=== PATIENT | female | born 1945 | race Caucasian/White ===

== ENCOUNTER 2022-06-25 08:59 | Outpatient (RCR) | payer MEDICARE, SELFPAY ==
--- NOTE | 2022-06-25 10:08 | OT.OPLDN ---
OT Outpatient Lymphedema Daily Note OT Outpatient Lymphedema Daily Note Start: 06/25/22 09:03 Freq: Status: Active Protocol: Document 06/25/22 09:47 AMB (Rec: 06/25/22 10:08 AMB [email or web address]) E-signed By Miranda Jasso, OTR/L, CLT, JUNIOR ACCOUNTANT OT OP Lymphedema Daily/Progress Note Note Type Note Type Discharge Note,Recert/Progress Note Visit Number 6 Insurance Information Insurance Information Medicare B Current Condition/Medical Diagnosis Referring Provider Eulogio Treatment Diagnosis Lymphedema / breast Cancer Date Of Onset June 2021 Other Precautions Pt is a very pleasant 75yo female here today to initiate the breast cancer lymphedema program. Pt will undergo lumpectomy with SLN biopsy on June 04. 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 There was no evidence of metastasis to her LN. She underwent neoadjuvant chemotherapy and finished this up on 05/04/21. Pt state she will likely need radiation therapy follwing her surgery. Pt states she is feeling pretty good. 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 PMH also includes essential hypertension, nephrolithiasis, tonsillectomy , bilateral cataract extraction, bowel resection, benign breast biopsy on the left, TKA last May, needs TKA in her other knee but waiting until cancer treatment is over . Medical Contraindications Metal Implants Recert Due Recert Due 06/25/22 Subjective Subjective Pt feels she is doing well, knee is not bothering her anymore and her scar tissue in her breast has calmed down, still palpable with occasional mild shooting pains, but gets better with massage. Pt does not notice any swelling in her breast or her arm / torso. Hematoma is also still palpable but pt feels it is getting better as well. Home Program Compliant To Home Program Yes Home Program Specifics Self monitoring, self scar mobilization Treatment Manual Therapy Minutes (minutes) 20 Self Care Reviewed self serveillance and healthy habbits / risk reduction practices including skin care, exercise, and healthy diet. Pt asked multiple pertinent questions and received satisfactory answers. Assessment Pt present to OT for her final visit in her lymphedema surveillance program following breast cancer surgery with LN removal and radiation. Pt verbalizes understanding of the importance of self monitoring and risk reduction practices going forward. Pt agrees that if she has future concerns regarding lymphedema or infection, she will reach out to her PCP and seek help. Pt has met all goals and feels ready to discharge. Measurements of BUE were taken today as follows: JERRI BUSTAMANTE Met heads 21.0cm 21.0cm Palm 21.2 21.2 Wrist 17.0 17.0 10cm 20.0 19.8 20cm 25.7 26.0 30cm 28.3 27.5 40cm 32.3 33.5 50cm 37.5 38.0 Patient Goals Patient Goals GOALS/Functional Outcomes 1. Pt will demonstrate a general understanding of the lymphatic system, s/s of lymphedema, treatment of lymphedema, implications of untreated lymphedema, s/s of infection and the correlation of infection related to lymphedema. 3 months Goal is met 2. Pt will be compliant with quarterly assessments for lymphedema surveillance in order to obtain early intervention with best outcomes if needed. 12 months Goal remains appropriate Goal is met Treatment Plan Treatment Plan Edema Control,Manual Therapy, Therapeutic Exercise, Therapeutic Activities,Self- Care/Home Management,Education Expected Frequency Comments Discontinue OT, transition to independent monitoring / management Daily Plan of Care Discharge Occupational Therapy Billing Units Billing Units Therapeutic Activities 1 Certification Certification I Certify That: Therapy Services Provided, Therapy Plan Established, Therapy Plan Reviewed Recertification Information Recertification Information Initial Certification Date 11/27/20 Recertification Start Date 06/25/22 Recertification Due Date 06/25/22 Reasons to Continue Skilled Therapy Pt was participating in a lymphedema surveillance program and has benefited from continued surveillance to provide early intervention and treatment in the event that she developed lymphedema in order to achieve best outcomes as well as continued pt education on risk reduction practices. Today was pt's last visit. She will transition to independent surveillance. Through OT, she has obtained the knowledge and skills to be abl to continue on her own. Pt has contact info and was encouraged to call mortgage underwriter should she have future questions or concerns. Rehabilitation Potential Good Continued Plan of Care and Interventions Discontinue formal clinic OT, pt is transitioning to independent monitoring program . Provider Signature Shows Agreement With POC & Medical Necessity Physician Comment/Change Comment or Changes Physician NPI Number # Discharge Note Discharge Note Discharge Summary Pt has met goal and states confidence in continuing with self monitoring. Date of First Visit for Therapy 05/27/21 Date of Last Visit for Therapy 06/25/22 Initial Primary Functional Limitations/ Lymphedema Risk, scar tissue Concerns limitations Initial Pain Level NA Pain Level at Discharge NA Interventions Provided During Treatment Manual Therapy,Therapeutic Activities,Therapeutic Exercise,Self Care/Home Management,Other; See Comments Interventions Provided During Treatment Patient education. Comments Recommendations/Reason for Discharge Met All Therapy Goals Discharge Instructions Pt will continue to monitor for s/s of lymphedema, she will continue with scar tissue mobilization prn and risk reduction practices.
== END 2023-05-25 11:07 | disposition home or self-care (01) ==
PROVIDERS: PCP Internal Medicine; Visit Provider Surgery
DX: I89.0 Lymphedema, not elsewhere classified (principal); Z51.89 Encounter for other specified aftercare
CPT/HCPCS: 97530

== ENCOUNTER 2022-08-18 10:29 | Outpatient (CLI) | payer MEDICARE, SELFPAY ==
--- OUTSIDE RECORDS SUMMARY | 2022-08-18 09:28 | XMS_ITS | Encounter Summary ---
:1945 Author Organization [facility] Address [address] [place] [id number] Care Team Providers Name Role Phone Liudmila David MD Primary Care Provider Unavailable Liudmila David MD Unavailable Unavailable Reason for Visit Reason Comments Pre-Op Exam DOS Encounter Details Date Type Department Care Team Description 10/18/2018 Office Visit [facility] Liudmila David Preope rative examination (Primary Dx); Prateek Gatica MD Essential hypertension, mark gn; [address] History of malignant carcino id tumor; [address] History [place] [address] Social History Tobacco Use Types Packs/Day Years Used Date Smoking Tobacco: Former Cigarettes 0.5 15 Quit : 11/07/1995 Smokeless Tobacco: Never Alcohol Use Standard Drinks/Week Comments Yes 0 (1 standard drink = 0.6 oz pure alcoho l) rare - wine once in a while Sex Assigned at Date Recorded Female 10/17/2018 7:14 PM MAGNETIZER documented as of this encounter Last Filed Vital Signs Vital Sign Reading Time Taken Comments Blood Pressure 126/82 10/18/2018 12:42 PM MAGNETIZER Pulse 84 10/18/2018 12:42 PM MAGNETIZER Temperature 36.8 ??C (98.2 ??F) 10/18/2018 12:42 PM MAGNETIZER Respiratory Rate - - Oxygen Saturation 98% 10/18/2018 12:42 PM MAGNETIZER Inhaled Oxygen Concentration - - Weight 98.4 kg (217 lb) 10/18/2018 12:42 PM MAGNETIZER Height 168.9 cm (5' 6.5) 10/18/2018 12:42 PM MAGNETIZER Body Mass Index 34.5 10/18/2018 12:42 PM MAGNETIZER documented in this encounter Progress Notes Liudmila David MD - 10/18/2018 12:00 PM CST [facility] [address] [place] [address]. [address] [facility] [address] Dept: [phone] PRE-OP EVALUATION: Today's date: 10/18/2018 Shahnaz Phelps (: 1945) presents for pre-operative evaluation assessment as requestedby Dr. Hidalgo. She requires evaluation and anesthesia risk assessment prior to undergoing surgery/procedure for colonoscopy- surveillance of resected carcinoid tumor Proposed Surgery/ Procedure: Colonoscopy Date of Surgery/ Procedure: 10/25/18 Time of Surgery/ Procedure: 8:00 am Hospital/Surgical Facility: [facility] Can see in [facility] Primary Physician: Liudmila David Type of Anesthesia Anticipated: General Patient has a Health Care Directive or Living Will: NO 1. NO - Do you have a history of heart attack, stroke, stent, bypass or surgery on an artery in the head, neck, heart or legs? 2. NO - Do you ever have any pain or discomfort in your chest? 3. NO - Do you have a history of Heart Failure? 4. NO - Are you troubled by shortness of breath when: walking on the level, up a slight hill or at night? 5. NO - Do you currently have a cold, bronchitis or other respiratory infection? 6. NO - Do you have a cough, shortness of breath or wheezing? 7. NO - Do you sometimes get pains in the calves of your legs when you walk? 8. NO - Do you or anyone in your family have previous history of blood clots? 9. NO - Do you or does anyone in your family have a serious bleeding problem such as prolonged bleeding following surgeries or cuts? 10. NO - Have you ever had problems with anemia or been told to take iron pills? 11. NO - Have you had any abnormal blood loss such as black, tarry or bloody stools, or abnormal vaginal bleeding? 12. NO - Have you ever had a blood transfusion? 13. YES - HAVE YOU OR ANY OF YOUR RELATIVES EVER HAD PROBLEMS WITH ANESTHESIA? Personal history of nausea and vomiting after anesthesia 14. NO - Do you have sleep apnea, excessive snoring or daytime drowsiness? 15. NO - Do you have any prosthetic heart valves? 16. NO - Do you have prosthetic joints? 17. NO - Is there any chance that you may be ? HPI: HPI related to upcoming procedure: Colonoscopy under general anesthesia MEDICAL HISTORY: Patient Active Problem List Diagnosis Date Noted ??? Venous stasis dermatitis of both lower extremities 05/19/2017 Priority: Medium ??? Abnormal glucose 02/11/2017 Priority: Medium ??? History of malignant carcinoid tumor 04/17/2015 Priority: Medium ??? Health Longterm 2012 Priority: Medium State Tier Level: Tier 2 Status: n/a [place] Measurer: See Letters for [facility] Care Plan ??? Calculus of kidney 03/28/2012 Priority: Medium ??? ACP (advance care planning) 02/26/2012 Priority: Medium Advance Care Planning 02/18/2016: ACP Review of Chart / Resources Provided: Reviewed chart for advance care plan. Shahnaz Phelps has no plan or code status on file. Discussed available resources and provided with information. Confirmed code status reflects current choices pending further ACP discussions. Confirmed/documented legally designated decision makers. Added by July Keenan Diagnosis updated by automated process. Provider to review and confirm. ??? Essential hypertension, benign 02/25/2009 Priority: Medium ??? Obesity 12/11/2007 Priority: Medium Problem list name updated by automated process. Provider to review ??? 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 Please review for accuracy ??? Osteoarthritis 07/14/2004 Priority: Medium Problem list name updated by automated process. Provider to review ??? Diverticulosis of large intestine Priority: Medium Problem list name updated by automated process. Provider to review ??? History of colonic polyps Priority: Medium Problem list name updated by automated process. Provider to review Past Medical History: Diagnosis Date ??? Allergic rhinitis due to pollen ??? 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 Hypertension ??? Kidney stones ??? 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 Need for prophylactic hormone replacement therapy (postmenopausal) ??? Other acne ??? Other acne ??? PONV (postoperative nausea and vomiting) vomitted for 12 hours after surgery Past Surgical History: Procedure Laterality Date ??? 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 BREAST BIOPSY, RT/LT Left 04/2005 left breast (calcium buildup) ??? CATARACT IOL, RT/LT Bilateral 2003 ??? COLONOSCOPY 06/2012 scheduled ??? COLONOSCOPY N/A 10/20/2015 3 year recheck ??? 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 EXTRACORPOREAL SHOCK WAVE LITHOTRIPSY, CYSTOSCOPY, INSERT STENT URETER(S), COMBINED 06/08/2012 Procedure: COMBINED EXTRACORPOREAL SHOCK WAVE LITHOTRIPSY, CYSTOSCOPY, INSERT STENT URETER(S); RIGHT COMBINED EXTRACORPOREAL SHOCK WAVE LITHOTRIPSY, CYSTOSCOPY, RIGHT STENT, LEFT RETROGRADE.; Surgeon:Jared Jackson MD; Location: OR ??? HC COLONOSCOPY THRU STOMA W BIOPSY/CAUTERY TUMOR/POLYP/LESION Dr Wells ??? HC COLONOSCOPY THRU STOMA W BIOPSY/CAUTERY TUMOR/POLYP/LESION ??? HC COLONOSCOPY THRU STOMA W BIOPSY/CAUTERY TUMOR/POLYP/LESION 2000 ??? HC COLONOSCOPY THRU STOMA W BIOPSY/CAUTERY TUMOR/POLYP/LESION 2002 Dr Mesa ? ? HC HYSTEROSCOPY W ENDOMETRIAL BX/POLYPECTOMY W/WO D&C 2006 benign uterine polyp ??? HC KNEE SCOPE,MED/LAT MENISECTOMY 04/[address] Arevalo ? ? HC REMOVAL OF TONSILS,<12 Y/O 1953 Tonsils <12y.o. ??? HC REMV CATARACT EXTRACAP,INSERT LENS 03/10/04 right ??? HC REMV CATARACT EXTRACAP,INSERT LENS 04/[address] Keith ??? HERNIORRHAPHY INCISIONAL (LOCATION) N/A 05/02/2015 Procedure: HERNIORRHAPHY INCISIONAL (LOCATION); Surgeon: Cheikh Barcenas MD; Location: OR ??? 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 LAPAROSCOPIC ASSISTED COLECTOMY Right 07/31/2014 Procedure: LAPAROSCOPIC ASSISTED COLECTOMY; Surgeon: Jerry Lane MD; Location: [facility] OR ? ? LIGATN/STRIP LONG & SHORT SAPHEN 03/2006 right leg ??? PLACEMENT OF DENTAL IMPLANT(S) 06/23/2015 clear choice ??? US ENDOVENOUS ABLATION THERAPY INCOMPETENT 1 VEIN LEFT Bilateral 2011 Current Outpatient Medications Medication Sig Dispense Refill ??? hydrochlorothiazide (HYDRODIURIL) 25 MG tablet Take 1 tablet (25 mg) by mouth daily 90 tablet 3 ??? losartan (COZAAR) 100 MG tablet Take 1 tablet (100 mg) by mouth daily 90 tablet 3 ??? Multiple Vitamins-Minerals (MULTIVITAMIN OR) Take 1 tablet by mouth daily ??? triamcinolone (KENALOG) 0.1 % cream Apply topically 2 times daily (Patient not taking: Reported on 10/18/2018) 30 g 0 OTC products: None, except as noted above Allergies Allergen Reactions ??? Amoxicillin Itching rash ??? Imidazole Antifungals hives ??? Penicillins hives Latex Allergy: NO Social History Tobacco Use ??? Smoking status: Former Smoker Packs/day: 0.50 Years: 15.00 Pack years: 7.50 Last attempt to quit: 11/07/1995 Years since quittin.9 ??? Smokeless tobacco: Never Used Substance Use Topics ??? Alcohol use: Yes Alcohol/week: 0.0 oz Comment: rare - wine once in a while History Drug Use No REVIEW OF SYSTEMS: CONSTITUTIONAL: NEGATIVE for fever, chills, change in weight ENT/MOUTH: NEGATIVE for ear, mouth and throat problems RESP: NEGATIVE for significant cough or SOB CV: NEGATIVE for chest pain, palpitations or peripheral edema GI: NEGATIVE for nausea, abdominal pain, heartburn, or change in bowel habits MUSCULOSKELETAL: bilateral knee pain, cortisone injections ENDOCRINE: NEGATIVE for temperature intolerance, skin/hair changes PSYCHIATRIC: NEGATIVE for changes in mood or affect EXAM: BP 126/82 (BP Location: Right arm, Patient Position: Sitting, Cuff Size: Adult Regular) Pulse 84 Temp 98.2 ??F (36.8 ??C) (Oral) Ht 1.689 m (5' 6.5) Wt 98.4 kg (217 lb) SpO2 98% BMI 34.50 kg/m?? GENERAL APPEARANCE: healthy, alert and no distress HENT: ear canals and TM's normal and nose and mouth without ulcers or lesions RESP: lungs clear to auscultation - no rales, rhonchi or wheezes CV: regular rate and rhythm, normal S1 S2, no S3 or S4 and no murmur, click or rub ABDOMEN: soft, nontender, no HSM or masses and bowel sounds normal NEURO: Normal strength and tone, sensory exam grossly normal, mentation intact and speech normal DIAGNOSTICS: EKG: Normal Sinus Rhythm Hemoglobin Date Value Ref Range Status 10/18/2018 14.5 11.7 - 15.7 g/dL Final ] Potassium Date Value Ref Range Status 10/18/2018 3.6 3.5 - 5.3 mmol/L Final Lab Results Component Value Date CR 0.88 10/18/2018 Recent Labs Lab Test 02/13/18 0959 02/13/18 0935 02/13/18 0931 06/08/17 1028 02/10/17 0942 02/10/17 0918 06/23/16 HGB -- -- 14.0 -- -- 14.1 -- -- 13.4 PLT -- -- 239 -- -- -- -- -- 264 NA 141 -- -- 142 < > -- -- < > -- POTASSIUM 3.9 -- -- 4.0 < > -- -- < > -- CR 0.73 -- -- 0.75 < > -- -- < > -- A1C -- 5.7 -- -- -- -- 5.5 -- -- < > = values in this interval not displayed. IMPRESSION: Reason for surgery/procedure: colonoscopy- under anesthesia The proposed surgical procedure is considered LOW risk. REVISED CARDIAC RISK INDEX The patient has the following serious cardiovascular risks for perioperative complications such as (UT, PE, VFib and 3?? AV Block): No serious cardiac risks INTERPRETATION: 0 risks: Class I (very low risk - 0.4% complication rate) The patient has the following additional risks for perioperative complications: No identified additional risks (Z01.818) Preoperative examination (primary encounter diagnosis) Comment: Plan: BASIC METABOLIC PANEL ([facility]), HEMOGRAM/PLATELET ([facility]), EKG 12-lead complete w/read - Clinics, VENOUS COLLECTION (I10) Essential hypertension, benign Comment: Plan: BASIC METABOLIC PANEL ([facility]), EKG 12-lead complete w/read - Clinics, VENOUS COLLECTION (Z85.9) History of malignant carcinoid tumor Comment: Plan: (Z86.010) History of colonic polyps Comment: Plan: RECOMMENDATIONS: --Patient is to take all scheduled medications on the day of surgery EXCEPT for modifications listedbelow. FLO Inhibitor or Angiotensin Receptor Cisco (ARB) Use Flo inhibitor or Angiotensin Receptor Cisco (ARB) and hydrochlorothiazide should HOLD this medication for the 24 hours prior to surgery. APPROVAL GIVEN to proceed with proposed procedure, without further diagnostic evaluation Signed Electronically by: Liudmila David MD Copy of this evaluation report is provided to requesting physician. [facility] Preop Guidelines Revised Cardiac Risk Index ETIZER documented in this encounter Nursing Notes Radha Abdul CMA - 10/18/2018 12:00 PM CST Patient is here for preop today. ETIZER documented in this encounter Plan of Treatment Not on filedocumented as of this encounter Procedures Procedure Name Priority Date/Time Associated Diagnosis Comme nts BASIC METABOLIC Routine 10/18/2018 1:41 PM Preoperative Result s for this PANEL MAGNETIZER examination procedure are in Essential the results hypertension, benign section . ZZCL AFF Routine 10/18/2018 1:25 PM Preoperative Results f or this HEMOGRAM/PLATELET MAGNETIZER examination procedure are in the results section. EKG 12-LEAD Routine 10/18/2018 1:23 PM Preoperative Results f or this COMPLETE W/READ - MAGNETIZER examination procedure are in CLINICS Essential the results hypertension, benign section . HC VENOUS Routine 10/18/2018 1:15 PM Preoperative COLLECTION MAGNETIZER examination Essential hypertension, benign documented in this encounter Results (ABNORMAL) BASIC METABOLIC PANEL ([facility]) (10/18/2018 1:41 PM MAGNETIZER) P athologist Signature Glucose 102 (H) 65 - 99 [facility] mg[facility] Comment: ? Fasting reference interv al For someone without known diabetes, a gl ucose value between 100 and 125 mg/dL is consistent with prediabetes and should be confirmed with a follow-up test. Urea Nitrogen 20 7 - 25 mg/dL [facility] Creatinine 0.88 0.60 - 0.93 mg/dL [facility] Comment: For patients >49 years of age, the refer ence limit for Creatinine is approximately 13% high er for people identified as -South African. GFR Estimate 65 > OR = 60 [facility] mL/min/1.73m2 EGFR 76 > OR = 60 [facility] South African mL/min/1.73m2 BUN/Creatinine NOT APPLICABLE 6 - 22 (calc) [facility] Ratio Sodium 142 135 - 146 mmol/L [facility] Potassium 3.6 3.5 - 5.3 mmol/L [facility] Chloride 103 98 - 110 mmol/L [facility] Carbon Dioxide 28 20 - 32 mmol/L [facility] Calcium 10.0 8.6 - 10.4 mg/dL [facility] Specimen Anatomical Collection Method Collection Time Receive d Time (Source) Location / / Volume Laterality Blood specimen 10/18/2018 1:41 PM 018 3:58 (specimen) MAGNETIZER AM MAGNETIZER Resulting Agency Comment Performing Organization Information: ? CB ? [facility] ? [address] [place], [place] [address] ? Juanito Hardy M.D. Liudmila David MD LAB - BLOOD ORDERABLES Performing Organization Address City/State/ZIP Code Phon e Number [facility] [address] [place], [place] [address] [facility] [address] [place], [place] [address] HEMOGRAM/PLATELET ([facility]) (10/18/2018 1:25 PM MAGNETIZER) P athologist Signature WBC 8.0 4.0 - 11 [facility] 10*9/L RBC Count 4.59 3.8 - 5.2 [facility] 10*12/L Hemoglobin 14.5 11.7 - 15.7 [facility] g/dL Hematocrit 43.2 35.0 - 47.0 [facility] % MCV 94.1 78 - 100 fL [facility] MCH 31.6 26 - 33 pg [facility] MCHC 33.6 31 - 36 [facility] g/dL RDW 12.7 % [facility] Platelet Count 257 150 - 375 [facility] 10^9/L Specimen (Source) Anatomical Collection Method Collection Time Re ceived Time Location / / Volume Laterality 10/18/2018 1:25 PM MAGNETIZER Liudmila David MD LABORATORY Performing Organization Address City/State/ZIP Code Phon e Number [facility] EKG 12-lead complete w/read - Clinics (10/18/2018 1:23 PM MAGNETIZER) Specimen (Source) Anatomical Collection Method Collection Time Re ceived Time Location / / Volume Laterality 10/18/2018 1:23 PM MAGNETIZER Narrative This result has an attachment that is no t available. Liudmila David MD ECG ORDERABLES Performing Organization Address City/[facility]/ZIP Code Phon e Number [facility] documented in this encounter Visit Diagnoses Diagnosis Preoperative examination - Primary Preoperative examination, unspecified Essential hypertension, benign History of malignant carcinoid tumor Personal history of malignant neuroendoc rine tumor History of colonic polyps Personal history of colonic polyps documented in this encounter Care Teams Simulation Tech Relationship Specialty Start Date End Date Liudmila David MD PCP - General Family Practice 02/12/14 1 12/06/19 Liudmila David MD Assigned PCP 10/12/15 documented as of this encounter
--- OUTSIDE RECORDS SUMMARY | 2022-08-18 09:28 | XMS_ITS | Clinical Summary ---
:1945 Author Organization [facility] Address [address] [place] [address] Care Team Providers Name Role Phone BonitaPrincessHeidy Primary Care Provider Allergies Active Allergy Reactions Severity Noted Date Comments Amoxicillin 03/01/2016 Itching rash Imidazole Antifungals 03/21/1999 hives Penicillins 12/18/2001 hives Medications Medication Sig Dispensed Refills Start Date End Date Status Multiple Take 1 tablet 0 Active Vitamins-Minerals by mouth daily (MULTIVITAMIN OR) triamcinolone (KENALOG) Apply topically 30 g 0 02/13/2018 Active 0.1 % creamIndications: 2 times daily Dermatitis hydrochlorothiazide Take 1 tablet 90 tablet 3 02/07/2019 Active (HYDRODIURIL) 25 MG (25 mg) by tabletIndications: mouth daily Essential hypertension, benign losartan (COZAAR) 100 MG Take 1 tablet 90 tablet 3 02/07/2019 Active tabletIndications: (100 mg) by Essential hypertension, mouth daily benign Active Problems Problem Noted Date Venous stasis dermatitis of both lower extremities Abnormal glucose 02/11/2017 History of malignant carcinoid tumor 04/17/2015 Health Long-Term 2012 Overview: State Tier Level: Tier 2 Status: n/a Manager Surgical: See Letters for [facility] Care Plan Calculus of kidney 03/28/2012 ACP (advance care planning) 02/26/2012 Overview: Advance Care Planning 02/18/2016: ACP Rev iew of Chart / Resources Provided: Reviewed chart for advance care plan. Shahnaz Phelps has no plan or code status on file. Discussed available resources an d provided with information. Confirmed c ode status reflects current choices pending further ACP discussions. Confirmed/documented legally designated decision makers. Added by July Keenan Diagnosis updated by automated process. Provider to review and confirm. Essential hypertension, benign 02/25/2009 Obesity 12/11/2007 Overview: Problem list name updated by automated p rocess. 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 Please r damian for accuracy Osteoarthritis 07/14/2004 Overview: Problem list name updated by automated p rocess. Provider to review History of colonic polyps Overview: Problem list name updated by automated p rocess. Provider to review Diverticulosis of large intestine Overview: Problem list name updated by automated p rocess. Provider to review Resolved Problems Problem Noted Date Resolved Date Malignant neoplasm of ascending colon 12/27/2018 Carcinoid tumor 07/31/2014 04/17/2015 iamSCIATICA 06/06/2006 12/11/2007 Absence of menstruation 04/08/2003 12/11/2007 Trigger finger, acquired 04/08/2003 12/11/2007 Overview: Problem list name updated by automated p rocess. Provider to review Other acne 06/23/2016 Immunizations Name Administration Dates Next Due Influenza (High Dose) 3 valent vaccine 06/28/2017 Influenza (IIV3) PF 08/27/1998 Influenza Vaccine IM > 6 months Valent IIV4 09/27/2018 (Alfuria,Fluzone) Pneumo Conj 13-V (2010&after) 02/27/2015 Pneumococcal 23 valent 02/26/2012 TD (ADULT, 7+) 03/13/2001, 12/08/1990 TDAP Vaccine (Boostrix) 03/29/2011 Zoster vaccine recombinant adjuvanted (SHINGRIX) 07/19/2019, 02/12/2019 Family History Medical History Relation Comments Colon Cancer Brother 2 Cancer Brother 3 colon Cancer - colorectal Father Colon Cancer Father Cancer Mother endometrial Cancer - colorectal Mother Colon Cancer Mother Breast Cancer Paternal Grandmother Relation Status Comments Brother 1 Alive Brother 2 (Age 50) colon cancer Brother 3 Daughter Alive Father colon cancer Mother colon cancer Paternal Grandmother Social History Tobacco Use Types Packs/Day Years Used Date Smoking Tobacco: Former Cigarettes 0.5 15 Quit : 11/07/1995 Smokeless Tobacco: Never Tobacco Cessation: Counseling Given: Yes Alcohol Use Standard Drinks/Week Comments Yes 0 (1 standard drink = 0.6 oz pure alcoho l) rarely Sex Assigned at Date Recorded Female 10/17/2018 7:14 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 Last 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 Vital Signs Vital Sign Reading Time Taken Comments Blood Pressure 118/74 06/09/2019 10:18 AM CDT Pulse 74 06/09/2019 10:18 AM CDT Temperature 36.6 ??C (97.9 ??F) 06/09/2019 10:18 AM CDT Respiratory Rate 20 06/04/2019 6:20 PM CDT Oxygen Saturation 97% 06/09/2019 10:18 AM CDT Inhaled Oxygen Concentration - - Weight 96.9 kg (213 lb 9.6 oz) 06/09/2019 10:18 AM CDT Height 167.6 cm (5' 6) 06/09/2019 10:18 AM CDT Body Mass Index 34.48 06/09/2019 10:18 AM CDT Plan of Treatment Health Maintenance Due Date Last Done Comments ANNUAL REVIEW OF HM ORDERS 1945 CT COLONOGRAPHY 1945 FIT-DNA (Cologuard) 1945 FIT 1945 FLEX SIG 1945 HEPATITIS B IMMUNIZATION (1 1945 of 3 - 3-dose series) COVID-19 Vaccine (#1) 03[birth year]06/1946 LUNG CANCER SCREENING 1995 MAMMO SCREENING 01/25/2020 01/24/2019, 01/23/2018, 01/31/2017, Additional history exists FALL RISK ASSESSMENT 02/08/2020 02/07/2019, 04/06/2018, 05/27/2016, Additional history exists MEDICARE ANNUAL WELLNESS 02/08/2020 02/07/2019, 02/13/2018, VISIT 02/10/2017, Additional history exists ADVANCE CARE PLANNING 02/17/2021 02/18/2016, 03/18/2014, 02/26/2012 DTAP/TDAP/TD IMMUNIZATION 03/29/2021 03/29/2011, 03/13/2001 , (4 - Td or Tdap) 12/08/1990 COLONOSCOPY 10/25/2021 10/25/2018, 10/25/2018, 10/20/2015, Additional history exists COLORECTAL CANCER SCREENING 10/25/2021 PHQ-2 (once per calendar 11/07/2021 02/07/2019, 02/13/2018, year) 02/18/2016 LIPID 02/10/2022 02/10/2017, 03/18/2014, 02/12/2013, Additional history exists INFLUENZA VACCINE (#1) 2022 09/27/2018, 06/28/2017, 08/27/1998 DEXA 02/13/2028 02/12/2013, 04/08/2003 HEPATITIS C SCREENING Completed 02/27/2015 Pneumococcal Vaccine: 65+ Completed 02/27/2015, 02/26/2012 Years ZOSTER IMMUNIZATION Completed 07/19/2019, 02/12/2019 IPV IMMUNIZATION Aged Out No longer eligi ble based on patient 's age to complete this topic MENINGITIS IMMUNIZATION Aged Out No longe r eligible based on patient 's age to complete this topic Medical Devices Implanted Type Area Spudder Device Shelf Model / Identifier Expiration Serial / Date Lot Stent Ureteral Contour Soft Percuflex [id number] Stent Right: NNEKA TON 11/26/2021 [id number] / Implanted: Qty: 1 on 03/28/2019 by Jared Harley MD at [facility] [employer] / [id number] Stent Ureteral Dbl Pigtail Inlay [id number] Right: 03/08/2017 [id number] / Implanted: Qty: 1 on 06/08/2012 by Jared Harley MD at [facility] [employer] / [id number] Hernia 3.1x4.7 Oval Sm [id number] N/A: CR BARD 01/04/2017 [id number] / Implanted: Qty: 1 on 05/02/2015 by Cheikh Trotter MD at [facility] Abdom[employer] / [id number] Explanted Type Area Spudder Device Shelf Model / Identifier Expiration Serial / Lot Date Stent Ureteral Contour Soft Percuflex [id number] Stent Right: NNEKA TON 11/19/2021 [id number] / Explanted: Qty: 1 on 03/28/2019 by Jared Harley MD at [facility] [employer] / [id number] Insurance Payer Benefit Plan / Subscriber ID Effective Dates Phone Addre ss Type Group HUMANA HUMANA MEDICARE [id number] 2018-Presen [phone] [address] [address] Medicare ADVANTAGE t 0 [place] [address] Nain Phelps Personal/Family Self [id number]) [place] [address] Nain Phelps Personal/Family Self [id number] ([address]) [place] [address] Advance Directives For more information, please contact: [phone] Documents on File Type Date Recorded Patient Completions Engineer Explanati on Advance Directives and Living 02/07/2019 9:34 AM Will Power of Associate Director 02/07/2019 9:34 AM Latest Code Status on File Code Status Date Activated Date Inactivated Comments Full Code 08/03/2014 9:14 AM 10/25/2018 6:31 AM Code Status History Code Status Date Activated Date Inactivated Comments Full Code 07/31/2014 3:56 PM 08/03/2014 9:14 AM Care Teams Evs Attendant Relationship Specialty Start Date End Date Heidy Mesa PCP - General Internal Medicine 10/07/20 [facility] [address] [place] [address] (work)
--- OUTSIDE RECORDS SUMMARY | 2022-08-18 09:28 | XMS_ITS | Encounter Summary ---
:1945 Author Organization [facility] Address [address] [place] [address] Care Team Providers Name Role Phone Liudmila David MD Primary Care Provider Unavailable Liudmila David MD Unavailable Unavailable Reason for Visit Reason Onset Date Comments Appointment 04/12/2019 2nd shingrx vaccine Encounter Details Date Type Department Care Team Description 04/12/2019 [facility] Edgar Cunningham Appo intment ([facility] shingrx vaccine) [id number] [place] [address] Social History Tobacco Use Types Packs/Day Years Used Date Smoking Tobacco: Former Cigarettes 0.5 15 Quit : 11/07/1995 Smokeless Tobacco: Never Alcohol Use Standard Drinks/Week Comments Yes 0 (1 standard drink = 0.6 oz pure alcoho l) rarely Sex Assigned at Date Recorded Female 10/17/2018 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 They will go to a pharmacy to have it done. Telephone Encounter - Marta Zamora - 04/12/2019 3:32 PM CDT [facility]-Patient is scheduled 05/11/19 to received 2nd vaccine. We just got our shipment in and would like to know if she would like to come in now to get it. 1st shot was done 02/12 so she can come in anytime. Marta Zamora Real Estate Marketing Coordinator documented in this encounter Plan of Treatment Not on filedocumented as of this encounter Visit Diagnoses Not on filedocumented in this encounter Care Teams Oracle Manufacturing Consultant Relationship Specialty Start Date End Date Liudmila David MD PCP - General Family Practice 02/12/14 1 12/06/19 Liudmila David MD Assigned PCP 10/12/15 documented as of this encounter
--- OUTSIDE RECORDS SUMMARY | 2022-08-18 09:28 | XMS_ITS | Encounter Summary ---
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
--- OUTSIDE RECORDS SUMMARY | 2022-08-18 09:28 | XMS_ITS | Encounter Summary ---
:1945 Author Organization [facility] Address [address] [place] [address] Care Team Providers Name Role Phone Liudmila David MD Primary Care Provider Unavailable Liudmila David MD Unavailable Unavailable Encounter Details Date Type Department Care Team Description 06/04/2019 Travel Social History Tobacco Use Types Packs/Day Years Used Date Smoking Tobacco: Former Cigarettes 0.5 15 Quit : 11/07/1995 Smokeless Tobacco: Never Alcohol Use Standard Drinks/Week Comments Yes 0 (1 standard drink = 0.6 oz pure alcoho l) rarely Sex Assigned at Date Recorded Female 10/17/2018 7:14 PM SLIMER documented as of this encounter Plan of Treatment Not on filedocumented as of this encounter Visit Diagnoses Not on filedocumented in this encounter Care Teams Tap Out Operator Relationship Specialty Start Date End Date Liudmila David MD PCP - General Family Practice 02/12/14 1 12/06/19 Liudmila Dvaid MD Assigned PCP 10/12/15 documented as of this encounter
--- OUTSIDE RECORDS SUMMARY | 2022-08-18 09:28 | XMS_ITS | Encounter Summary ---
:1945 Author Organization [facility] Address [address] [place] [address] Care Team Providers Name Role Phone Liudmila David MD Primary Care Provider Unavailable Liudmila David MD Unavailable Unavailable Encounter Details Date Type Department Care Team Description 10/18/2018 Travel Social History Tobacco Use Types Packs/Day Years Used Date Smoking Tobacco: Former Cigarettes 0.5 15 Quit : 11/07/1995 Smokeless Tobacco: Never Alcohol Use Standard Drinks/Week Comments Yes 0 (1 standard drink = 0.6 oz pure alcoho l) rare - wine once in a while Sex Assigned at Date Recorded Female 10/17/2018 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
--- OUTSIDE RECORDS SUMMARY | 2022-08-18 09:28 | XMS_ITS | Encounter Summary ---
:1945 Author Organization [facility] Address [address] [place] [address] Care Team Providers Name Role Phone Liudmila David MD Primary Care Provider Unavailable Liudmila David MD Unavailable Unavailable Encounter Details Date Type Department Care Team Description 03/19/2019 Travel Social History Tobacco Use Types Packs/Day Years Used Date Smoking Tobacco: Former Cigarettes 0.5 15 Quit : 11/07/1995 Smokeless Tobacco: Never Alcohol Use Standard Drinks/Week Comments Yes 0 (1 standard drink = 0.6 oz pure alcoho l) Once per week Sex Assigned at Date Recorded Female 10/17/2018 7:14 PM PHARMACY TECHNICIAN documented as of this encounter Plan of Treatment Not on filedocumented as of this encounter Visit Diagnoses Not on filedocumented in this encounter Care Teams Telecommunication Engineer Relationship Specialty Start Date End Date Liudmila David MD PCP - General Family Practice 02/12/14 1 12/06/19 Liudmila David MD Assigned PCP 10/12/15 documented as of this encounter
--- OUTSIDE RECORDS SUMMARY | 2022-08-18 09:28 | XMS_ITS | Encounter Summary ---
:1945 Author Organization [facility] Address [address] [place] [address] Care Team Providers Name Role Phone Liudmila David MD Primary Care Provider Unavailable Liudmila David MD Unavailable Unavailable Encounter Details Date Type Department Care Team Description 10/25/2018 Travel Social History Tobacco Use Types Packs/Day Years Used Date Smoking Tobacco: Former Cigarettes 0.5 15 Quit : 11/07/1995 Smokeless Tobacco: Never Alcohol Use Standard Drinks/Week Comments Yes 0 (1 standard drink = 0.6 oz pure alcoho l) Once per week Sex Assigned at Date Recorded Female 10/17/2018 7:14 PM 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
--- OUTSIDE RECORDS SUMMARY | 2022-08-18 09:28 | XMS_ITS | Encounter Summary ---
:1945 Author Organization [facility] Address [address] [place] [address]. [place] [address] Care Team Providers Name Role Phone Liudmila David MD Primary Care Provider Unavailable Liudmila David MD Unavailable Unavailable Reason for Visit Auth/Cert Specialty Diagnoses / Procedures Referred By Contact Refer red To Contact Gastroenterology Diagnoses PERSONAL HISTORY OF COLON POLYPS Sh Endoscopy Procedures COLONOSCOPY [address] [phone] Phone: Referral ID Status Reason Start Date Expiration Date Visits Requ ested Visits Authorized [id number] 1 1 Encounter Details Date Type Department Care Team Description 10/25/2018 Anesthesia Event [facility] Ramón Loo Endoscopy MD Brendan [address] [employer] [facility] [place] [phone] [id number] [phone] [place] [phone] (Wo rk) Anesthesia Record Procedure Summary Procedure Name Responsible Anesthesia Start Anesthesia Stop Time Anesthesiologist Time COMBINED Ramón Loo, 10/25/18 0810 8 0911 COLONOSCOPY, SINGLE MD OR MULTIPLE BIOPSY/POLYPECTOMY BY BIOPSY (Rectum) Events Date Time Event Comment 10/25/2018 0725 0810 An Start 0810 An Start Data 0816 AN INCISION 0907 an stop data 0911 An Stop Electronically s igned by Zoe Pereira on October 25, 2018 9:11 AM Name Total fentaNYL (SUBLIMAZE) injection 100 mcg midazolam 1mg/mL 2 mg ondansetron 2mg/mL 4 mg phenylephrine (ARIADNA-SYNEPHRINE) injection 700 mcg propofol (DIPRIVAN) injection 10 mg/mL vial 40 mg propofol (DIPRIVAN) injection 10 mg/mL vial 695.8 mg dexmedetomidine (PRECEDEX) 4 mcg/mL bolus 20 mcg LR 700 mL Agents Name NO HELIOX O2 N2O Air Exp Sevoflurane Exp Isoflurane Exp Desflurane Exp N2O O2 Delivery Device Ins Sevoflurane Ins Isoflurane Ins Desflurane O2 Auxiliary Blood No blood administrations on file. Lines, Drains, and Airways Type Details Placement Removal Peripheral IV 07/03/12; 0916; 22 G; 07/03/12 0916 by Right; Median cubital Teresa Gomes, vein (antecubital RN fossa); Chlorhexidine; Tolerated well; iv sedation Incision/Surgical Site 07/31/14; 1335; 07/31/14 1335 by Marge Tapia RN Incision/Surgical Site 05/02/15; Abdomen 05/02/15 0000 by Griselda Gutierrez RN Peripheral IV 10/25/18; 0726; 20 G; 10/25/18 0726 by 10/25/18 0949 by Right; Median cubital Elaine Saeed RN Foster, Emma C, RN vein (antecubital fossa) documented in this encounter Social History Tobacco Use Types Packs/Day Years Used Date Smoking Tobacco: Former Cigarettes 0.5 15 Quit : 11/07/1995 Smokeless Tobacco: Never Alcohol Use Standard Drinks/Week Comments Yes 0 (1 standard drink = 0.6 oz pure alcoho l) Once per week Sex Assigned at Date Recorded Female 10/17/2018 7:14 PM GLYCERIN SUPERVISOR documented as of this encounter OR Notes Anesthesia Postprocedure Evaluation - Ramón oLo MD - 10/25/2018 9:14 AM CST Patient: Shahnaz Phelps Procedure(s): COMBINED COLONOSCOPY, SINGLE OR MULTIPLE BIOPSY/POLYPECTOMY BY BIOPSY Diagnosis:PERSONAL HISTORY OF COLON POLYPS Diagnosis Additional Information: No value filed. Anesthesia Type: MAC Note: Anesthesia Post Evaluation Patient location during evaluation: Endoscopy Recovery Patient participation: Able to fully participate in evaluation Level of consciousness: awake Pain management: adequate Airway patency: patent Cardiovascular status: acceptable Respiratory status: acceptable Hydration status: acceptable PONV: none Last vitals: Vitals: 10/25/18 0719 10/25/18 0910 BP: 140/66 96/45 Pulse: 77 72 Resp: 19 SpO2: 95% 99% Electronically Signed By: Ramón Loo MD October 25, 2018 9:14 AM ERIN SUPERVISOR Anesthesia Preprocedure Evaluation - Ramón Loo MD - 10/25/2018 7:21 AM CST Anesthesia Pre-Procedure Evaluation Patient: Shahnaz Phelps : 1945 Preoperative Diagnosis: PERSONAL HISTORY OF COLON POLYPS Procedure(s): COLONOSCOPY Past Medical History: Diagnosis Date ??? Allergic [...] STENT, LEFT RETROGRADE.; Surgeon:Jared Jackson MD; Location: [facility] ??? [facility] COLONOSCOPY THRU STOMA W BIOPSY/CAUTERY TUMOR/POLYP/LESION Dr Wells ??? [facility] COLONOSCOPY THRU STOMA W BIOPSY/CAUTERY TUMOR/POLYP/LESION ??? [facility] COLONOSCOPY THRU STOMA W BIOPSY/CAUTERY TUMOR/POLYP/LESION 2000 ??? [facility] COLONOSCOPY THRU STOMA W BIOPSY/CAUTERY TUMOR/POLYP/LESION 2002 Dr Msea ? ? [facility] HYSTEROSCOPY W ENDOMETRIAL BX/POLYPECTOMY [...] INCISIONAL (LOCATION); Surgeon: Cheikh Barcenas MD; Location: [facility] OR ??? 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 LAPAROSCOPIC ASSISTED COLECTOMY Right 07/31/2014 Procedure: LAPAROSCOPIC ASSISTED COLECTOMY; Surgeon: Jerry Lane MD; Location: [facility] OR ? ? LIGATN/STRIP LONG & SHORT SAPHEN 03/2006 right leg ??? PLACEMENT OF DENTAL IMPLANT(S) 06/23/2015 clear choice ??? US ENDOVENOUS ABLATION THERAPY INCOMPETENT 1 VEIN LEFT Bilateral 2011 Anesthesia Evaluation . Pt has had prior anesthetic. Type: General and MAC History of anesthetic complications - PONV ROS/MED HX ENT/Pulmonary: (+)tobacco use, Past use , . . (-) sleep apnea Neurologic: Cardiovascular: (+) hypertension----. : . . . :. . METS/Exercise Tolerance: 3 - Able to walk 1-2 blocks without stopping Hematologic: Musculoskeletal: (+) arthritis, , , - GI/Hepatic: (+) Other GI/Hepatic Diverticulosis; (-) GERD Renal/Genitourinary: (+) Nephrolithiasis , (-) renal disease Endo: (+) Obesity, . Psychiatric: Infectious Disease: Malignancy: (+) Malignancy History of Other Other CA Carcinoid tumor; skin cancer; status post Other: Physical Exam Normal systems: cardiovascular and pulmonary Airway Mallampati: II TM distance: >3 FB Neck ROM: full Dental (+) missing and implants Cardiovascular Pulmonary Lab Results Component Value Date WBC 8.0 10/18/2018 HGB 14.5 10/18/2018 HCT 43.2 10/18/2018 PLT 257 10/18/2018 NA 142 10/18/2018 POTASSIUM 3.6 10/18/2018 CHLORIDE 103 10/18/2018 CO2 28 10/18/2018 BUN 20 10/18/2018 BUN NOT APPLICABLE 10/18/2018 CR 0.88 10/18/2018 GLC 102 (H) 10/18/2018 CORNELIUS 10.0 10/18/2018 ALBUMIN 4.6 12/09/2014 PROTTOTAL 6.9 12/09/2014 ALT 22 12/09/2014 AST 22 12/09/2014 ALKPHOS 91 12/09/2014 BILITOTAL 0.6 12/09/2014 Preop Vitals BP Readings from Last 3 Encounters: 10/25/18 140/66 10/18/18 126/82 04/06/18 124/82 Pulse Readings from Last 3 Encounters: 10/25/18 77 10/18/18 84 04/06/18 78 Resp Readings from Last 3 Encounters: 03/07/17 20 10/20/15 15 07/12/15 18 SpO2 Readings from Last 3 Encounters: 10/25/18 95% 10/18/18 98% 04/06/18 96% Temp Readings from Last 1 Encounters: 10/18/18 36.8 ??C (98.2 ??F) (Oral) Ht Readings from Last 1 Encounters: 10/25/18 1.689 m (5' 6.5) Wt Readings from Last 1 Encounters: 10/25/18 98 kg (216 lb) Estimated body mass index is 34.34 kg/m?? as calculated from the following: Height as of this encounter: 1.689 m (5' 6.5). Weight as of this encounter: 98 kg (216 lb). Anesthesia Plan History & Physical Review History and physical reviewed and following examination; no interval change. ASA Status: 3 . Plan for MAC Reason for MAC: Deep or markedly invasive procedure (G8) PONV prophylaxis: Ondansetron (or other 5HT-3) and Other (See comment) (Propofol gtt) Postoperative Care Postoperative pain management: IV analgesics, Oral pain medications and Multi- modal analgesia. Consents Anesthetic plan, risks, benefits and alternatives discussed with: Patient or outside sales account representative and Patient.. Ramón Loo MD ERIN SUPERVISOR documented in this encounter Miscellaneous Notes Anesthesia Care Transfer Note - Zoe Pereira APRN CRNA - 10/25/2018 9:10 AM CST Patient: Shahnaz Phelps Procedure(s): COMBINED COLONOSCOPY, SINGLE OR MULTIPLE BIOPSY/POLYPECTOMY BY BIOPSY Diagnosis: PERSONAL HISTORY OF COLON POLYPS Diagnosis Additional Information: No value filed. Anesthesia Type: MAC Note: Airway :Nasal Cannula Patient transferred to:PACU Comments: Vitals stable, awake and talking. Vitals: (Last set prior to Anesthesia Care Transfer) FARMWORKER VEGETABLE VITALS 10/25/2018 0837 - 10/25/2018 0910 10/25/2018 Resp Rate (set): 10 Electronically Signed By: Zoe Pereira APRN CRNA October 25, 2018 9:10 AM ERIN SUPERVISOR documented in this encounter Plan of Treatment Not on filedocumented as of this encounter Visit Diagnoses Not on filedocumented in this encounter Administered Medications Inactive Administered Medications - up to 3 most recent administrations Medication Order MAR Action Action Date Dose Rate Site dexmedetomidine (PRECEDEX) 4 mcg/mL Bolus 10/25/2018 8:17 AM GLYCERIN SUPERVISOR 8 mcg bolus CONTINUOUS PRN, Starting on Tue10/25/18 at 0809, Anesthesia Intra-op New Bag 10/25/2018 8:09 AM GLYCERIN SUPERVISOR 12 mcg fentaNYL (PF) (SUBLIMAZE) injection Given 10/25/2018 8:16 AM GLYCERIN SUPERVISOR 50 mcg PRN, Administer over 3-5 Minutes, Starting on Tue10/25/18 at 0813, Anesthesia Intra-op Given 10/25/2018 8:13 AM GLYCERIN SUPERVISOR 50 mcg lactated ringers infusion New Bag 10/25/2018 8:11 AM GLYCERIN SUPERVISOR Intravenous, CONTINUOUS PRN, Anesthesia Intra-op, Starting on Tue10/25/18 at 0811, Until Tue10/25/18 at 0911 midazolam (VERSED) injection Given 10/25/2018 8:09 AM GLYCERIN SUPERVISOR 2 mg Administer over 2 Minutes, PRN, Starting on Tue10/25/18 at 0809, Anesthesia Intra-op ondansetron (ZOFRAN) injection Given 10/25/2018 8:23 AM GLYCERIN SUPERVISOR 4 mg PRN, Administer over 2-5 Minutes, Starting on Tue10/25/18 at 0823, Anesthesia Intra-op phenylephrine (ARIADNA-SYNEPHRINE) injection Bolus 10/25/2018 9:04 AM GLYCERIN SUPERVISOR 100 mcg CONTINUOUS PRN, Starting on Tue10/25/18 at 0825, Anesthesia Intra-op Bolus 10/25/2018 8:57 AM GLYCERIN SUPERVISOR 100 mcg Bolus 10/25/2018 8:49 AM GLYCERIN SUPERVISOR 100 mcg propofol (DIPRIVAN) Rate/Dose Change 10/25/2018 8:52 100 mcg/kg/min 5 8.8 mL/hr injection 10 mg/mL vial AM GLYCERIN SUPERVISOR CONTINUOUS PRN, Starting on Tue10/25/18 at 0813, Anesthesia Intra-op Rate/Dose Change 10/25/2018 8:22 AM GLYCERIN SUPERVISOR 150 mcg/kg/min 88.2 mL/hr New Bag 10/25/2018 8:13 AM GLYCERIN SUPERVISOR 200 mcg/kg/min 117.6 mL/hr propofol (DIPRIVAN) injection 10 mg/mL v ial Given 10/25/2018 8:14 AM GLYCERIN SUPERVISOR 40 mg PRN, Starting on Tue10/25/18 at 0814, Anesthesia Intra-op documented in this encounter Care Teams Spinning Doffer Relationship Specialty Start Date End Date Liudmila David MD PCP - General Family Practice 02/12/14 1 12/06/19 Liudmila David MD Assigned PCP 10/12/15 documented as of this encounter
--- OUTSIDE RECORDS SUMMARY | 2022-08-18 09:28 | XMS_ITS | Encounter Summary ---
:1945 Author Organization [facility] Address [address] [place] [id number] Care Team Providers Name Role Phone Liudmila David MD Primary Care Provider Unavailable Liudmila David MD Unavailable Unavailable Reason for Visit Reason Comments Allied Health Visit Encounter Details Date Type Department Care Team Description 02/12/2019 Allied Health/Nurse Health [facility] Allied Health Visit Visit [address] [phone] Social History Tobacco Use Types Packs/Day Years Used Date Smoking Tobacco: Former Cigarettes 0.5 15 Quit : 11/07/1995 Smokeless Tobacco: Never Alcohol Use Standard Drinks/Week Comments Yes 0 (1 standard drink = 0.6 oz pure alcoho l) Once per week Sex Assigned at Date Recorded Female 10/17/2018 7:14 PM 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 No Do you have allergies to medications, food, a vaccine component or latex? No Have you ever had a serious reaction after receiving a vaccination? No Do you have a long-term health problem with heart disease, lung disease, asthma, kidney disease, metabolic disease (e.g. diabetes), anemia, or other blood disorder? No Do you have cancer, leukemia, HIV/AIDS, or any other immune system problem? No In the past 3 months, have you taken medications that affect your immune system, such as prednisone,other steroids, or anticancer drugs; drugs for the treatment of rheumatoid arthritis, Crohn???s disease, or psoriasis; or have you had radiation treatments? No Have you had a seizure, or a brain or other nervous system problem? No During the past year, have you received a transfusion of blood or blood products, or been given immune (gamma) globulin or antiviral drug? No For women: Are you or is there a chance you could become during the next month? No Have you received any vaccinations in the past 4 weeks? No Immunization questionnaire answers were all negative. Per orders of Dr. Cunningham, injection of Shingrix given by Chavo Douglass. Patient instructed to remain in clinic for 15 minutes afterwards, and to report any adverse reaction to me immediately. Screening performed by Chavo Douglass on 02/12/2019 at 4:05 PM. documented in this encounter Plan of Treatment Not on filedocumented as of this encounter Visit Diagnoses Diagnosis Encounter for immunization - Primary Need for other specified prophylactic va ccination against single bacterial disease documented in this encounter Care Teams Secret Service Agent Relationship Specialty Start Date End Date Liudmila David MD PCP - General Family Practice 02/12/14 1 12/06/19 Liudmila David MD Assigned PCP 10/12/15 documented as of this encounter
--- OUTSIDE RECORDS SUMMARY | 2022-08-18 09:28 | XMS_ITS | Encounter Summary ---
:1945 Author Organization [place] Address [facility] [place] [address] Care Team Providers Name Role Phone Liudmila David MD Primary Care Provider Unavailable Liudmila David MD Unavailable Unavailable Reason for Visit Auth/Cert Specialty Diagnoses / Procedures Referred By Contact Refer red To Contact Gastroenterology Diagnoses PERSONAL HISTORY OF COLON POLYPS Sh Endoscopy Procedures COLONOSCOPY [id number] [place] [phone] Phone: Referral ID Status Reason Start Date Expiration Date Visits Requ ested Visits Authorized [id number] 1 1 Encounter Details Date Type Department Care Team Description 10/25/2018 Surgery [facility] Jerry Lane MD COMBINED COLONOSCOPY, [facility] COLON RECTAL SURG SINGLE OR MULTIPLE [address] [facility] BIOPSY/POLYPECTOMY BY [place] [phone] [id number] BIOPSY [phone] [address] [place] [phone] (Wo rk) Surgery Details Date/Time Status Location OR Service Patient Class Case Case Trauma Class Type Case? 10/25/18 8:00 Posted GI GI [facility] [place] AM 01 Panel 1 Procedure LRB Anes Op Region Wound Class Commen ts COMBINED COLONOSCOPY, SINGLE OR N/A MAC Rectum II-C lean Contaminated COLONOSCOPY MULTIPLE BIOPSY/POLYPECTOMY BY BIOPSY Surgeon Surgeon Role Service Panel Jerry Lane MD Primary [place] 1 documented in this encounter Social History Tobacco Use Types Packs/Day Years Used Date Smoking Tobacco: Former Cigarettes 0.5 15 Quit : 11/07/1995 Smokeless Tobacco: Never Alcohol Use Standard Drinks/Week Comments Yes 0 (1 standard drink = 0.6 oz pure alcoho l) Once per week Sex Assigned at Date Recorded Female 10/17/2018 7:14 PM [employer] documented as of this encounter Last Filed Vital Signs Vital Sign Reading Time Taken Comments Blood Pressure 140/66 10/25/2018 7:19 AM [employer] Pulse 77 10/25/2018 7:19 AM [employer] Temperature - - Respiratory Rate - - Oxygen Saturation 95% 10/25/2018 7:19 AM [employer] Inhaled Oxygen Concentration - - Weight 98 kg (216 lb) 10/25/2018 7:19 AM [employer] Height 168.9 cm (5' 6.5) 10/25/2018 7:19 AM [employer] Body Mass Index 34.34 10/25/2018 7:19 AM [employer] documented in this encounter Medications at Time of Discharge Medication Sig Dispensed Refills Start Date End Date Multiple Vitamins-Minerals Take 1 tablet by 0 (MULTIVITAMIN OR) mouth daily triamcinolone (KENALOG) 0.1 Apply topically 2 30 g 0 0 02/13/2018 % creamIndications: times daily Dermatitis hydrochlorothiazide Take 1 tablet (25 90 tablet 3 8 02/07/2019 (HYDRODIURIL) 25 MG mg) by mouth tabletIndications: Essential daily hypertension, benign losartan (COZAAR) 100 MG Take 1 tablet 90 tablet 3 02/14/20 18 02/07/2019 tabletIndications: Essential (100 mg) by mouth hypertension, benign daily documented as of this encounter Plan of Treatment Not on filedocumented as of this encounter Procedures Procedure Name Priority Date/Time Associated Comments Diagnosis SURGICAL PATHOLOGY Routine 10/25/2018 8:53 AM Res ults for this EXAM [employer] procedure are i n the results section. COLONOSCOPY, WITH 10/25/2018 8:10 AM PERSONAL HISTORY OF POLYPECTOMY AND [employer]ACH[employer] COLON POLYPS BIOPSY COLONOSCOPY Routine 10/25/2018 6:51 AM Results f or this [employer] procedure are i n the results section. documented in this encounter Results Surgical pathology exam (10/25/2018 8:53 AM MACHINE [employer]) Component Value Ref Test Analysis Performed At [facility] Method Time Signature Copath Report Patient Name: SHAHNAZ GLASGOW MAYITORAÚL MR#: [id number] Specimen #: [id number] Collected: 10/25/2018 Received: 10/25/2018 Reported: 10/26/2018 10:25 Ordering Phy(s): JERRY LANE For improved result formatting, select 'View Enhanced Report Format' under Linked Documents section. SPECIMEN(S): Sigmoid colon polyp FINAL DIAGNOSIS: Sigmoid colon, polyp x3, polypectomy- -Tubular adenoma x1. ??Negative for high grade dysplasia or malignancy - Hyperplastic polyp x2. ??Negative for dysplasia or maligna ncy. Electronically signed out by: Laura Kennedy M.D. CLINICAL HISTORY: Personal history of colon polyps GROSS: A single specimen container with formalin is received labele d with the patient's name, date of , and medical record number. Information on the requisition slip, container, and associated labels is confirmed. The specimen is designated large intestine, sigmoid. The s pecimen consists of three pale browning soft tissue fragments measuring up to 0.3 cm in greatest dimension. The specimen is entirely submitted in one cassette. (Dictated by: Em Chappell 10/25/2018 10:50 AM) MICROSCOPIC: A formal microscopic exam is performed. CPT Codes: A: 71795-XT1 TESTING LAB LOCATION: [address] ??[id number] COLLECTION SITE: [facility] Spec[facility] (Source) Anatomical Collection Method Collection Time Re ceived Time Location / / Volume Laterality Polyp SIGMOID COLON PART 10/25/2018 8:53 AM (morphologic / Unknown MACH[employer] abnormality) Jerry Lane MD [facility] Performing Organization Address City/State/ZIP Code Phon e Number [place] COLONOSCOPY (10/25/2018 6:51 AM MACHINE [employer]) Component Value Ref Test Analysis Performed At [facility] Range Method Time Signature COLONOSCOPY [facility] RADIOLOGY [facility] Endoscopy Department RESULTS Patient Name: Shahnaz Glasgow ?Procedure Date: 12/26/2017 6:51 AM ? Accou nt Number: [id number] Date of : 1945 ? Admit Type: Outp atient Age: 73 ? Room: special procedure room #1 Note Status: Finalized ?Attending MD: Jerry Lane MD Total Sedation Time: ?I nstrument Name: 325 [id number] AdultColonoscope Procedure: ?Colonoscopy Indications: ?High ri sk colon cancer surveillance: Personal ?history of colon canc er Providers: ?Jerry Lane MD, Elaine Siddiqui RN Referring MD: ? Liudmila David MD, Karen Lowe MD Medicines: ?Monitored Anesthesia Care Complications: ?No immediate complications. Procedure: ?Pre-Anesthesia Assessment: ?- Prior to the procedure, a History and Physical ?was performed, and patient medications and ?allergies were reviewed. The patient is competent. ?The risks and benefits of the procedure and the ?sedation options and risks were discussed with the ?patient. All questions were answered and informed ?consent was obtained. Patient identification and ?proposed procedure were verified by the physician ?in the endoscopy suite. Mental Status Examination: ?alert and oriented. Airway Examination: normal ?oropharyngeal airway and neck mobility. Respiratory ?Examination: clear to auscultation. CV Examination: ?normal. Prophylactic Antibiotics: The patient does ?not require prophylactic antibiotics. Prior ?Anticoagulants: The patient has taken no previous ?anticoagulant or antiplatelet agents. ASA Grade ?Assessment: II - A patient with mild systemic ?disease. After reviewing the risks and benefits, ?the patient was deemed in satisfactory condition to ?undergo the procedure. The anesthesia plan was to ?use monitored anesthesia care (MAC). Immediately ?prior to administration of medications, the patient ?was re-assessed for adequacy to receive sedatives. ?The heart rate, respiratory rate, oxygen ?saturations, blood pressure, adequacy of pulmonary ?ventilation, and response to care were monitored ?throughout the procedure. The physical status of ?the patient was re-assessed after the procedure. ?After obtaining informed consent, the colonoscope ?was passed under direct vision. Throughout the ?procedure, the patient's blood pressure, pulse, and ?oxygen saturations were monitored continuously. The ?Colonoscope was introduced through the anus and ?advanced to the ileocolonic anastomosis. The ?patient tolerated the procedure well. The quality ?of the bowel preparation was excellent and adequate ?to identify polyps. The colonoscopy was performed ?with difficulty due to restricted mobility of the ?colon, significant looping and a tortuous colon. ?Successful completion of the procedure was aided by ?applying abdominal pr essure. ? Findings: ? The perianal and digital rectal examinations were nor mal. Pertinent ? negatives include normal sphincte r tone and no palpable rectal lesions. ? The terminal ileum appeared normal. ? There was evidence of a prior side-to-jimmy e ileo-colonic anastomosis in ? the transverse colon. This was patent and was characterized by healthy ? appearing mucosa. The anastomosis was traversed. ? Three sessile polyps were found i n the sigmoid colon. The polyps were 2 ? to 3 mm in size. These polyps were removed with a jumbo cold forceps. ? Resection and retrieval were complete. ? Multiple small-mouthed diverticula were found in the sigmoid colon. ? There was no evidence of diverticular bleeding. ? The exam was otherwise without abnormality on d irect and retroflexion ? views. ? Impression: ? - The examined portion of the ileum was normal. ?- Patent [id number] ileo-colonic anastomosis, ?characterized by healthy appearing mucosa. ?- Three 2 to 3 mm polyps in the sigmoid colon, ?removed with a jumbo cold forceps. Resected and ?retrieved. ?- Diverticulosis in the sigmoid colon. There was no ?evidence of diverticu lar bleeding. ?- The examination was otherwise normal on direct ?and retroflexion view s. Recommendation: ? - Patient has a contact num [email or web address] available for ?emergencies. The signs and symptoms of potential ?delayed complications were discussed with the ?patient. Return to normal activities tomorrow. ?Written discharge instructions were provided to the ?patient. ?- Resume previous t. ?- Continue present me dications. ?- Await pathology res ults. ?- Repeat colonoscopy in 5 years for surveillance. ?- Patient's sedation for a repeat study will ?require Anesthesia staff assistance. ? Procedure Code(s): ? --- Professional --- ? 78487, Colonoscopy, flexible; with biopsy, single or multiple Diagnosis Code(s): ? --- Professional --- ? K57.30, Diverticulosi s of large intestine without perforation or abscess ? without bleeding ? D12.5, Benign neoplasm of sigmoid colon ? Z98.0, Intestinal bypass and anastomosis status ? Z85.038, Personal his tory of other malignant neoplasm of large intestine CPT copyright 2017 [employer]. All rights reserved. The codes documented in this report are prelimin elke and upon insurance coder review may be revised to meet current compliance requirements. Jerry Lane MD 10/25/2018 9:09:21 AM I was physically present for the entire viewing portion of t he exam. Jerry Lane MD Number of Addenda: 0 Note Initiated On: 10/25/2018 6:51 AM MRN: ?[id number] Procedure Date: ? 10/25/2018 6:51:20 AM Scope Withdrawal Time: 0 hours 14 minutes 52 seconds Total Procedure Duration: 0 hours 42 minutes 36 seconds Estimated Blood Loss: ? Scope In: 8:18:45 AM Scope Out: 9:01:21 AM Specimen (Source) Anatomical Collection Method Collection Time Re ceived Time Location / / Volume Laterality 10/25/2018 6:51 AM M[employer] Liudmila David MD PROCEDURES Performing Organization Address City/State/ZIP Code Phon e Number RADIOLOGY RESULTS documented in this encounter Visit Diagnoses Not on filedocumented in this encounter Administered Medications Inactive Administered Medications - up to 3 most recent administrations Medication Order MAR Action Action Date Dose Rate Site diphenhydrAMINE (BENADRYL) capsule 25 mg 25 mg, Oral, EVERY 4 HOURS PRN, itching, Starting on W ed 10/25/18 at 0950, Post-procedure diphenhydrAMINE (BENADRYL) injection 25 mg 25 mg, Intravenous, EVERY 4 HOURS PRN, i tching, Starting on 10/25/18 at 0950, Use only if patient cannot take oral. Fo r ordered IV doses 1-50 mg, give IV Push undiluted. Give each 25mg over a minimum of 1 minute. Extend in non-emergency, Post-procedure fentaNYL (PF) (SUBLIMAZE) injection 25-5 0 mcg 25-50 mcg, Intravenous, EVERY 15 MIN PRN, other, acute pain while in Phase II, Starting on Tue10/25/18 at 0950, Indica tions: Sedated State, MAX cumulative dose = 250 mcg. Use fentaNYL (SUBLIMAZE) initia lly, as a short acting agent for acute pain control. If insufficient, or a longer acting agent is needed, begin morphine or HYDROmorphone (DILAUDID) if ordered. For ordered IV doses 1-100 mcg give IV Push undiluted over a minimum of 3-5 minutes., Phase ll HYDROmorphone (PF) (DILAUDID) injection 0.3-0.5 mg 0.3-0.5 mg, Intravenous, EVERY 10 MIN PRN, other, acut e pain. May administer if Respiratory Rate is greater than 10, Starting on 12/26/17 at 0950, Max cumulative dose = 2 mg If fentaNYL (SUBL IMAZE) is also ordered, use HYDROmorphone (DILAUDID) if pain control insufficient with fentaNYL (SUMBLIMAZE) or a longer acting agent is needed. For ordered IV doses 0.1-4 mg give IV Push undiluted. Administer each 2mg over 2-5 minutes., PACU/Phase II lactated ringers infusion at 100 mL/hr, Intravenous, CONTINUOUS, Continue until IV catheter is weaned, PACU/Phase II, Starting on Tue10/25/18 at 1000, Until Tue10/30/18 at 0230 lidocaine (LMX4) cream Topical, EVERY 1 HOUR PRN, pain, with VA D insertion or accessing implanted port., Starting on Tue10/25/18 at 0705, Do NOT give if patient has a history of allergy to any local anesthetic or any rebecca product. Apply 30 minutes prior to VAD insertion or port access. MAX Dose: 2.5 g (?? of 5 g t ube), Pre-procedure lidocaine 1 % 1 mL 1 mL, Other, EVERY 1 HOUR PRN, mild pain with VAD insertion or accessing implanted port, Starting on Tue10/25/18 at 0705, Do NOT give if patient has a history of allergy to any local anesthetic or any rebecca product. MAX dose 1 mL subcutaneous OR intradermal in divided doses., Pre-procedure meperidine (DEMEROL) injection 12.5 mg 12.5 mg, Intravenous, EVERY 15 MIN PRN, post anesthesia shivering, Starting on Tue10/25/18 at 0950, For 2 doses, Give IV P ush undiluted. 10-40 mg over 2-3 minutes, up to 125 mg over 3-15 minutes, PACU/Phase II ondansetron (ZOFRAN) injection 4 mg 4 mg, Intravenous, ONCE PRN, nausea, vomiting, Adminis ter over 2-5 Minutes, Starting on Tue10/25/18 at 0705, For 1 dose, Give in ENDO pre procedure prep area. Irritant. For ordered IV doses 0.1-4 mg, give IV Push undiluted over 2-5 minutes., Pre-procedure ondansetron (ZOFRAN) injection 4 mg 4 mg, Intravenous, EVERY 30 MIN PRN, reno sea, vomiting, Administer over 2-5 Minutes, Starting on Tue10/25/18 at 0950, For 2 doses, MAX total dose = 8 mg, including OR dosing. This is step 1 of nausea and vomiting manageme nt. If not resolved in 15 minutes, then go to step 2 [prochlorpera zine (COMPAZINE) if ordered]. Irritant. For ordered IV doses 0.1-4 mg, give IV Push undiluted over 2-5 minutes., PACU/Phase II ondansetron (ZOFRAN) injection 4 mg 4 mg, Intravenous, EVERY 6 HOURS PRN, nausea, vomiting , Administer over 2-5 Minutes, Starting on Tue10/25/18 at 095 0, This is Step 1 of nausea and vomiting management. If nausea not resolved in 15 minutes, go t o Step 2 prochlorperazine (COMPAZINE). Irritant. For ordered IV do ses 0.1-4 mg, give IV Push undiluted over 2-5 minutes., Post-procedure ondansetron (ZOFRAN-ODT) ODT tab 4 mg 4 mg, Oral, EVERY 30 MIN PRN, nausea, vo miting, Starting on Tue10/25/18 at 0950, For 2 doses, MAX total dose = 8 mg, incl uding OR dosing. This is step 1 of nausea and vomiting management. If not resolved in 15 minutes , then go to step 2 [prochlorperazine (COMPAZINE) if ordered ]. With dry hands, peel back foil backing and gently remove tablet; do not push oral disintegrat ing tablet through foil backing; administer immediately on tongu e and oral disintegrating tablet dissolves in seconds; then swallow with saliva; liquid not requi red., PACU/Phase II ondansetron (ZOFRAN-ODT) ODT tab 4 mg 4 mg, Oral, EVERY 6 HOURS PRN, nausea, v omiting, Starting on Tue10/25/18 at 0950, This is Step 1 of nausea and vomiting management. If n ausea not resolved in 15 minutes, go to Step 2 prochlorperazine (COMPAZINE). Do not push through foil backing. Peel back foil and gently remove. Place on to ngue immediately. Administration with liquid unnecessary W ith dry hands, peel back foil backing and gently remove tablet; do not push oral d isintegrating tablet through foil backing; administer immediately on tongue and oral disintegrati ng tablet dissolves in seconds; then swallow with saliva; liquid not required ., Post-procedure ORAL Pain Medications - may administer a s ordered by surgeon for take home use CONTINUOUS PRN, Starting on Tue10/25/18 at 0950, Until Tue10/30/18 at 0230, May administer oral pain medications as ordered by surgeon for take home use. Discontinue IV pain medication prior to administration of oral pain medication., PACU/Phase II prochlorperazine (COMPAZINE) injection 5 mg 5 mg, Intravenous, EVERY 6 HOURS PRN, nausea, vomiting , Administer over 1-2 Minutes, Starting on Tue10/25/18 at 095 0, This is Step 2 of nausea and vomiting management. If nausea not resolved in 15 minutes, give metoclopramide (REGLAN) if ordered [step 3 of nausea and vomiting m anagement]. For ordered IV doses 0.1-10 mg, give IV Push undiluted. Each 5mg over 1 minute., PACU/ Phase II prochlorperazine (COMPAZINE) injection 5 mg 5 mg, Intravenous, EVERY 6 HOURS PRN, nausea, vomiting , Administer over 1-2 Minutes, Starting on Tue10/25/18 at 095 0, This is Step 2 of nausea and vomiting management. If nausea not resolved in 15 minutes, give metoclopramide (REGLAN) if ordered (step 3 of nausea and vomiting m anagement) For ordered IV doses 0.1-10 mg, give IV Push undiluted. Each 5mg over 1 minute., Post- procedure prochlorperazine (COMPAZINE) tablet 5 mg 5 mg, Oral, EVERY 6 HOURS PRN, nausea, v omiting, Starting on Tue10/25/18 at 0950, This is Step 2 of nausea and vomiting management. If n ausea not resolved in 15 minutes, give metoclopramide (REGLAN) if ordered (step 3 of nausea and vomiting management), Post-procedure sodium chloride (PF) 0.9% PF flush 3 mL 3 mL, Intracatheter, EVERY 1 HOUR PRN, l ine flush, for peripheral IV flush post IV meds, Starting on Tue10/25/18 at 0705, Pre-procedure sodium chloride (PF) 0.9% PF flush 3 mL 3 mL, Intracatheter, EVERY 8 HOURS, First dose on Tue10/25/18 at 0715, And Q1H PRN, to lock peripheral IV dormant line., Pre-procedur e documented in this encounter Active and Recently Administered Medications Times are shown in [employer]. Scheduled Medication Order 10/23/2018 10/24/2018 10/25/2018 0.9% sodium chloride BOLUS 1000 (Canceled Entry - Provider: Orders Generic Provider - Comment: Automatically canceled at discontinue of medication order) Intravenous, 250 mL, ONCE, at 250 mL/hr, Administer over 1 Hours, Tue10/25/18 at 1000, For 1 dose, If systolic blood pressure less than 100 or patient has a headache, Post-procedure sodium chloride (PF) 0.9% PF flush 3 mL 0715 (Canceled Entry - Provider: Orders Generic Provider - Comment: Automatically canceled at discontinue of medication order)1515 (Canceled Entry - Provider: Orders Generic Provider - Comment: Automatically canceled at discont 3 mL, Intracatheter, EVERY 8 HOURS, Firs t dose on Tue10/25/18 at 0715, And Q1H PRN, to lock peripheral IV dormant line., Pre-procedure inue of medication order)2315 (Canceled Entry - Provider: Orders Generic Provider - Comment: Automatically canceled at discontinue of medication order) Continuous Medication Order 10/23/2018 10/24/2018 10/25/2018 lactated ringers infusion 1000 ( Canceled Entry - Provider: Orders Generic Provider - Comment: Automatically canceled at discontinue of medication order) at 100 mL/hr, Intravenous, CONTINUOUS, C ontinue until IV catheter is weaned, PACU/Phase II, Starting Tue10/25/18 at 1000, Until Tue10/30/18 at 0230 PRN Medication Order 10/23/2018 10/24/2018 10/25/2018 diphenhydrAMINE (BENADRYL) capsule 25 mg(Linked Group 1) 25 mg, Oral, EVERY 4 HOURS PRN, itching, Starting Tue10/25/18 at 0950, Post-procedure diphenhydrAMINE (BENADRYL) injection 25 mg(Linked Group 1) 25 mg, Intravenous, EVERY 4 HOURS PRN, i tching, Starting Tue10/25/18 at 0950, Use only if patient cannot take oral. For ordered IV doses 1-50 mg, give IV Push undiluted. Give each 25mg over a minimum o f 1 minute. Extend in non-emergency, Post-procedure fentaNYL (PF) (SUBLIMAZE) injection 25-50 mcg 25-50 mcg, Intravenous, EVERY 15 MIN PRN , Starting Tue10/25/18 at 0950, other, acute pain while in Phase II, MAX cumulative dose = 250 mcg. Use fentaNYL (SUBLIMAZE) initially, as a short acting agent f or acute pain control. If insufficient, or a longer acting agent is needed, begin morphine or HYDROmorphone (DILAUDID) if ordered. For ordered IV doses 1- 100 mcg give IV Push undiluted over a minimum of 3-5 minutes., Phase ll HYDROmorphone (PF) (DILAUDID) injection 0.3-0.5 mg 0.3-0.5 mg, Intravenous, EVERY 10 MIN NC N, Starting Tue10/25/18 at 0950, Until Tue10/30/18 at 0230, other, acute pain. May administer if Respiratory Rate is greater than 10, PACU/Phase II, Max cumulat uma dose = 2 mg If fentaNYL (SUBLIMAZE) is also ordered, use HYDROmorphone (DILAUDID) if pain control insufficient with fentaNYL (SUMBLIMAZE) or a longer acting agent is needed. For ordered IV doses 0.1 -4 mg give IV Push undiluted. Administer each 2mg over 2-5 minut es. lidocaine (LMX4) cream Topical, EVERY 1 HOUR PRN, pain, with VA D insertion or accessing implanted port., Starting Tue10/25/18 at 0705, Do NOT give if patient has a history of allergy to any local anesthetic or any rebecca pr oduct. Apply 30 minutes prior to VAD ins ertion or port access. MAX Dose: 2.5 g (?? of 5 g tube), Pre-procedure lidocaine 1 % 1 mL 1 mL, Other, EVERY 1 HOUR PRN, mild pain with VAD insertion or accessing implanted port, Starting Tue10/25/18 at 0705, Do NOT give if patient has a history of allergy to any local anesthetic or any ca ine product. MAX dose 1 mL subcutaneous OR intradermal in divided doses., Pre-procedure May continue current IV fluid if patient has IV fluids infusing until discharge. CONTINUOUS PRN, Starting Tue10/25/18 at 0950, Until Tue10/30/18 at 0230, Post-procedure meperidine (DEMEROL) injection 12.5 mg 12.5 mg, Intravenous, EVERY 15 MIN PRN, 2 doses, Starting Tue10/25/18 at 0950, Until Tue10/30/18 at 0230, post anesthesia shivering, PACU/Phase II, Give IV Push undiluted. 10-40 mg over 2-3 minutes, up to 125 mg over 3-15 minutes ondansetron (ZOFRAN) injection 4 mg 4 mg, Intravenous, ONCE PRN, nausea, vom iting, Administer over 2-5 Minutes, Starting Tue10/25/18 at 0705, For 1 dose, Give in ENDO pre procedure prep area. Irritant. For ordered IV doses 0.1-4 mg, give IV Push undiluted over 2-5 minutes., Pre-procedure ondansetron (ZOFRAN) injection 4 mg(Linked Group 2) 4 mg, Intravenous, EVERY 30 MIN PRN, reno sea, vomiting, Administer over 2-5 Minutes, Starting Tue10/25/18 at 0950, For 2 doses, MAX total dose = 8 mg, including OR dosing. This is step 1 of nausea and v omiting management. If not resolved in 1 5 minutes, then go to step 2 [prochlorperazine (COMPAZINE) if ordered]. Irritant. For ordered IV doses 0.1-4 mg, give IV Push undiluted over 2-5 minutes., PACU/Phase II ondansetron (ZOFRAN) injection 4 mg(Linked Group 3) 4 mg, Intravenous, EVERY 6 HOURS PRN, na usea, vomiting, Administer over 2-5 Minutes, Starting Tue10/25/18 at 0950, This is Step 1 of nausea and vomiting management. If nausea not resolved in 15 minutes , go to Step 2 prochlorperazine (COMPAZI NE). Irritant. For ordered IV doses 0.1- 4 mg, give IV Push undiluted over 2-5 minutes., Post-procedure ondansetron (ZOFRAN-ODT) ODT tab 4 mg(Linked Group 2) 4 mg, Oral, EVERY 30 MIN PRN, nausea, vo miting, Starting Tue10/25/18 at 0950, For 2 doses, MAX total dose = 8 mg, including OR dosing. This is step 1 of nausea and vomiting management. If not resolved in 15 minutes, then go to step 2 [prochl orperazine (COMPAZINE) if ordered]. With dry hands, peel back foil backing and gently remove tablet; do not push oral disintegrating tablet through foil backing; administer immediately on tongue and ora l disintegrating tablet dissolves in seconds; then swallow with saliva; liquid not required., PACU/Phase II ondansetron (ZOFRAN-ODT) ODT tab 4 mg(Linked Group 3) 4 mg, Oral, EVERY 6 HOURS PRN, nausea, v omiting, Starting Tue10/25/18 at 0950, This is Step 1 of nausea and vomiting management. If nausea not resolved in 15 minutes, go to Step 2 prochlorperazine (COM PAZINE). Do not push through foil backin g. Peel back foil and gently remove. Place on tongue immediately. Administration with liquid unnecessary With dry hands, peel back foil backing and gently remove tablet; do not push oral disintegrating tablet through foil backing; administer immediately on tongue and oral disintegrating tablet dissolves in seconds; then swallow with saliva; liquid not required., Post-procedure ORAL Pain Medications - may administer as ordered by surgeon for take home use CONTINUOUS PRN, Starting Tue10/25/18 at 0950, Until Tue10/30/18 at 0230, May administer oral pain medications as ordered by surgeon for take home use. Discontinue IV pain medication prior to administration of oral pain medication., PACU/Phase II prochlorperazine (COMPAZINE) injection 5 mg 5 mg, Intravenous, EVERY 6 HOURS PRN, na usea, vomiting, Administer over 1-2 Minutes, Starting Tue10/25/18 at 0950, This is Step 2 of nausea and vomiting management. If nausea not resolved in 15 minutes , give metoclopramide (REGLAN) if ordere d [step 3 of nausea and vomiting management]. For ordered IV doses 0.1-10 mg, give IV Push undiluted. Each 5mg over 1 minute., PACU/Phase II prochlorperazine (COMPAZINE) injection 5 mg(Linked Group 4) 5 mg, Intravenous, EVERY 6 HOURS PRN, na usea, vomiting, Administer over 1-2 Minutes, Starting Tue10/25/18 at 0950, This is Step 2 of nausea and vomiting management. If nausea not resolved in 15 minutes , give metoclopramide (REGLAN) if ordere d (step 3 of nausea and vomiting management) For ordered IV doses 0.1-10 mg, give IV Push undiluted. Each 5mg over 1 minute., Post-procedure prochlorperazine (COMPAZINE) tablet 5 mg(Linked Group 4) 5 mg, Oral, EVERY 6 HOURS PRN, nausea, v omiting, Starting Tue10/25/18 at 0950, This is Step 2 of nausea and vomiting management. If nausea not resolved in 15 minutes, give metoclopramide (REGLAN) if or dered (step 3 of nausea and vomiting management), Post-procedure sodium chloride (PF) 0.9% PF flush 3 mL 3 mL, Intracatheter, EVERY 1 HOUR PRN, l ine flush, for peripheral IV flush post IV meds, Starting Tue10/25/18 at 0705, Pre-procedure sodium chloride (PF) 0.9% PF flush 3 mL 3 mL, Intravenous, EVERY 1 MIN PRN, line flush, after medication administration. For peripheral IV flush post IV meds, Starting Tue10/25/18 at 0950, Post-procedure Linked Groups Order Group 1: diphenhydrAMINE (BENADRYL) injection 25 mgJump to med 25 mg, Intravenous, EVERY 4 HOURS PRN, i tching, Starting Tue10/25/18 at 0950
Use only if patient cannot take oral. For ordered IV doses 1-50 mg, give IV Push undiluted. Give each 25mg over a minimum of 1 minute. Extend in n on-emergency
Post-procedure Or diphenhydrAMINE (BENADRYL) capsule 25 mgJump to med 25 mg, Oral, EVERY 4 HOURS PRN, itching, Starting Tue10/25/18 at 0950, Post-procedure Group 2: ondansetron (ZOFRAN-ODT) ODT tab 4 mgJump to med 4 mg, Oral, EVERY 30 MIN PRN, nausea, vo miting, Starting Tue10/25/18 at 0950, For 2 doses
MAX total dose = 8 mg, including OR dosing. This is step 1 of nausea and vomiting management.&nbsp ; If not resolved in 15 minutes, th en go to step 2 [prochlorperazine (COMPAZINE) if ordered]. With dry hands, peel back foil backing and gently remove tablet; do not push oral disinteg rating tablet through foil backing; admi nister immediately on tongue and oral disintegrating tablet dissolves in seconds; then swallow with saliva; liquid not required.
PACU/Phase II Or ondansetron (ZOFRAN) injection 4 mgJump to med 4 mg, Intravenous, EVERY 30 MIN PRN, reno sea, vomiting, Administer over 2-5 Minutes, Starting Tue10/25/18 at 0950, For 2 doses
MAX total dose = 8 mg, including OR dosing. This is step 1 of naus ea and vomiting management. I f not resolved in 15 minutes, then go to step 2 [prochlorperazine (COMPAZINE) if ordered]. Irritant. For ordered IV doses 0.1-4 mg, give IV Push undiluted over 2-5 minutes.
PACU/Phase II Group 3: ondansetron (ZOFRAN-ODT) ODT tab 4 mgJump to med 4 mg, Oral, EVERY 6 HOURS PRN, nausea, v omiting, Starting Tue10/25/18 at 0950
This is Step 1 of nausea and vomiting management. If nausea not resolved in 15 minutes, go to S tep 2 prochlorperazine (COMPAZINE). Do n ot push through foil backing. Peel back foil and gently remove. Place on tongue immediately. Administration with liquid unnecessary With dry hands, peel back foil backing and gently remove tabl et; do not push oral disintegrating tablet through foil backing; administer immediately on tongue and oral disintegrating tablet dissolves in seconds; then swallo w with saliva; liquid not required.
P ost-procedure Or ondansetron (ZOFRAN) injection 4 mgJump to med 4 mg, Intravenous, EVERY 6 HOURS PRN, na usea, vomiting, Administer over 2-5 Minutes, Starting Tue10/25/18 at 0950
This is Step 1 of nausea and vomiting management. If nausea not resolved in 15 minutes, go to Step 2 prochlorperazine (COMPAZINE). Irritant. For ordered IV doses 0.1-4 mg, give IV Push undiluted over 2-5 minutes.
Post-procedure Group 4: prochlorperazine (COMPAZINE) injection 5 mgJump to med 5 mg, Intravenous, EVERY 6 HOURS PRN, na usea, vomiting, Administer over 1-2 Minutes, Starting Tue10/25/18 at 0950
This is Step 2 of nausea and vomiting management. If nausea not reso lved in 15 minutes, give metoclopramide (REGLAN) if ordered (step 3 of nausea and vomiting management) For ordered IV doses 0.1-10 mg, give IV Push undiluted. Each 5mg over 1 minute.
Post-procedure Or prochlorperazine (COMPAZINE) tablet 5 mgJump to med 5 mg, Oral, EVERY 6 HOURS PRN, nausea, v omiting, Starting Tue10/25/18 at 0950
This is Step 2 of nausea and vomiting management. If nausea not resolved in 15 minutes, give metoclopram erica (REGLAN) if ordered (step 3 of nause a and vomiting management)
Post-procedure documented in this encounter Care Teams Care Aide Relationship Specialty Start Date End Date Liudmila David MD PCP - General Family Practice 02/12/14 1 12/06/19 Liudmila David MD Assigned PCP 10/12/15 documented as of this encounter
--- OUTSIDE RECORDS SUMMARY | 2022-08-18 09:28 | XMS_ITS | Encounter Summary ---
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
--- OUTSIDE RECORDS SUMMARY | 2022-08-18 09:28 | XMS_ITS | Encounter Summary ---
:1945 Author Organization [facility] Address [address] [place] [address]. [place] [address] Care Team Providers Name Role Phone Liudmila David MD Primary Care Provider Unavailable Liudmila David MD Unavailable Unavailable Reason for Referral Diagnostic Imaging XR - Closed Specialty Diagnoses / Procedures Referred By Contact Refer red To Contact Diagnoses Cough Edgar Cunningham MD Procedures XR Chest 2 Views [address] [place] [address] Referral ID Status Reason Start Date Expiration Date Visits Requ ested Visits Authorized [id number] Closed 12/27/2018 12/27/[address] PROFESSOR Reason for Visit Reason Comments Fever Encounter Details Date Type Department Care Team Description 12/27/2018 Office Visit [facility] Edgar Cunningham Pneumonia of left lower lobe due to infectious organism (H) (Primary Dx); Clinic Barbra Azar MD Cough; [id number] [facility] Malignant neoplasm of ascend ing colon (H) [place] [id number] Social History Tobacco Use Types Packs/Day Years Used Date Smoking Tobacco: Former Cigarettes 0.5 15 Quit : 11/07/1995 Smokeless Tobacco: Never Alcohol Use Standard Drinks/Week Comments Yes 0 (1 standard drink = 0.6 oz pure alcoho l) Once per week Sex Assigned at Date Recorded Female 10/17/2018 7:14 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 documented as of this encounter Last Filed Vital Signs Vital Sign Reading Time Taken Comments Blood Pressure 128/70 12/27/2018 1:50 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 Pulse 115 12/27/2018 1:50 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 Temperature 37.4 ??C (99.4 ??F) 12/27/2018 1:50 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 Respiratory Rate 18 12/27/2018 1:50 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 Oxygen Saturation 94% 12/27/2018 1:50 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 Inhaled Oxygen Concentration - - Weight 95.3 kg (210 lb) 12/27/2018 1:50 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 Height 168.9 cm (5' 6.5) 12/27/2018 1:50 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 Body Mass Index 33.39 12/27/2018 1:50 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 documented in this encounter Patient Instructions Patient InstructionsQuade, Edgar Azar MD - 12/27/2018 2:40 PM CST Images from the original note were not included. Patient Education Pneumonia (Adult) Pneumonia is an infection deep within the lungs. It is in the small air sacs (alveoli). Pneumonia may be caused by a virus or bacteria. Pneumonia caused by bacteria??is usually treated with an antibiotic. Severe cases may need to be treated in the hospital. Milder cases can be treated at home. Symptoms usually start to get better during the first??2 days of treatment. Home care Follow these guidelines when caring for yourself at home: ?? Rest at home for the first 2 to 3 days, or until you feel stronger. Don???t let yourself get overly tired when you go back to your activities. ?? Stay away from cigarette smoke - yours or other people???s. ?? You may use acetaminophen or ibuprofen to control fever or pain, unless another medicine was prescribed. If you have chronic liver or kidney disease, talk with your healthcare provider before using these medicines. Also talk with your provider if you???ve had a stomach ulcer or gastrointestinal bleeding. Don???t give aspirin to anyone younger than 18 years of age who is ill with a fever. It may cause severe liver damage. ?? Your appetite may be poor, so a light diet is fine. ?? Drink 6 to 8 glasses of fluids every day to make sure you are getting enough fluids. Beverages can include water, sport drinks, sodas without caffeine, juices, tea, or soup. Fluids will help loosen secretions in the lung. This will make it easier for you to cough up the phlegm (sputum). If you alsohave heart or kidney disease, check with your healthcare provider before you drink extra fluids. ?? Take antibiotic medicine prescribed until it is all gone, even if you are feeling better after a few days. Follow-up care Follow up with your healthcare provider in the next 2 to 3 days, or as advised. This is to be sure the medicine is helping you get better. If you are 65 or older, you should get a pneumococcal vaccine and a yearly??flu (influenza)??shot. You should also get these vaccines if you have chronic lung disease like asthma, emphysema, or COPD. Recently, a second type of pneumonia vaccine has become available for everyone over 65 years old. Thisis in addition to the previous vaccine. Ask your provider about this. When to seek medical advice Call your healthcare provider right away if any of these occur: ?? You don???t get better within the first 48 hours of treatment ?? Shortness of breath gets worse ?? Rapid breathing (more than 25 breaths per minute) ?? Coughing up blood ?? Chest pain gets worse with breathing ?? Fever of??100.4??F (38??C) or higher that doesn???t get better with fever medicine ?? Weakness, dizziness, or fainting that gets worse ?? Thirst or dry mouth that gets worse ?? Sinus pain, headache, or a stiff neck ?? Chest pain not caused by coughing Date Last Reviewed: 11/07/2016 ?? [id number] [employer]. [address] [place] [address]. All rights reserved. This information is not intended as a substitute for professional medical care. Always follow your healthcare professional's instructions. ST ECOLOGY PROFESSOR documented in this encounter Progress Notes Edgar Cunningham MD - 12/27/2018 2:40 PM CST SUBJECTIVE: Shahnaz Phelps is a 73 year old female who presents to clinic today for the following health issues: Patient presents to the clinic with her . Patient here due to a fever. Starting last Tuesday12/16/18, she had a fever, chills, nausea, and a headache. This started to improve and then worsened again this past Tuesday12/23/18. She has a fever and is coughing up yellow phlegm. Patient is taking Tylenol and Nyquil. Denies ear pain. Problem list and histories reviewed & adjusted, as indicated. Additional history: as documented Patient Active Problem List Diagnosis ??? History of colonic polyps ??? Diverticulosis of large intestine ??? Osteoarthritis ??? 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 Obesity ??? Essential hypertension, benign ??? ACP (advance care planning) ??? Calculus of kidney ??? [facility] ??? History of malignant carcinoid tumor ??? Abnormal glucose ??? Venous stasis dermatitis of both lower extremities Past Surgical History: Procedure Laterality Date ??? 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 BREAST BIOPSY, RT/LT Left 04/2005 left breast (calcium buildup) ??? CATARACT IOL, RT/LT Bilateral 2003 ??? COLONOSCOPY 06/2012 scheduled ??? COLONOSCOPY N/A 10/20/2015 3 year recheck ??? COLONOSCOPY N/A 10/25/2018 Procedure: COMBINED COLONOSCOPY, SINGLE OR MULTIPLE BIOPSY/POLYPECTOMY BY BIOPSY; Surgeon: Jerry Lane MD; Location: GI ??? EXC SKIN MALIG 0.5CM OR LESS,FACIAL [...] Location: [facility] OR ??? HRW VEIN STRIPPER 2013 lower leg sclerosis/ laser therapy ??? LAPAROSCOPIC ASSISTED COLECTOMY Right 07/31/2014 Procedure: LAPAROSCOPIC ASSISTED COLECTOMY; Surgeon: Jerry Lane MD; Location: [facility] OR ? ? LIGATN/STRIP LONG & SHORT SAPHEN 03/2006 right leg ??? PLACEMENT OF DENTAL IMPLANT(S) 06/23/2015 clear choice ??? US ENDOVENOUS ABLATION THERAPY INCOMPETENT 1 VEIN LEFT Bilateral 2011 Social History Tobacco Use ??? Smoking status: Former Smoker Packs/day: 0.50 Years: 15.00 Pack years: 7.50 Last attempt to quit: 11/07/1995 Years since quittin.1 ??? Smokeless tobacco: Never Used Substance Use Topics ??? Alcohol use: Yes Alcohol/week: 0.0 oz Comment: Once per week Family History Problem Relation Age of Onset ??? Cancer - colorectal Mother ??? Cancer Mother 91 endometrial ??? Colon Cancer Mother ??? Cancer - colorectal Father ??? Colon Cancer Father ??? Colon Cancer Brother ??? Cancer Brother colon ??? Breast Cancer Paternal Grandmother Reviewed and updated as needed this visit by clinical staff Tobacco Allergies Meds Med Hx Surg Hx Fam Hx Soc Hx Reviewed and updated as needed this visit by Provider ROS: CONSTITUTIONAL: as noted above ENT/MOUTH: as noted above RESP: as noted above GI: as noted above NEURO: as noted above This document serves as a record of the services and decisions personally performed and made by Edgar Cunningham MD. It was created on his behalf by Luz Mccray, a trained medical staff credentialing coordinator. The creation of this document is based on the provider's statements to the medical staff credentialing coordinator. Luz Mccray 2:00 PM December 27, 2018 OBJECTIVE: BP 128/70 (BP Location: Right arm, Patient Position: Chair, Cuff Size: Adult Regular) Pulse 115 Temp 99.4 ??F (37.4 ??C) (Oral) Resp 18 Ht 1.689 m (5' 6.5) Wt 95.3 kg (210 lb) SpO2 94% BMI 33.39 kg/m?? Body mass index is 33.39 kg/m??. GENERAL: healthy, alert and no distress EYES: Eyes grossly normal to inspection, PERRL and conjunctivae and sclerae normal HENT: ear canals and TM's normal, nose and mouth without ulcers or lesions, sinuses nontender NECK: no adenopathy, no asymmetry, masses, or scars RESP: Coarse breath sounds bilateral lung bases and right anterior CV: regular rate and rhythm, normal S1 S2, no S3 or S4, no murmur, click or rub, no peripheral edemaand peripheral pulses strong X-ray chest ordered and interpreted in the office today. X-ray shows: mild left lower lobe infiltrate. Radiology read pending. Diagnostic Test Results: Results for orders placed or performed in visit on 12/27/18 (from the past 24 hour(s)) XR Chest 2 Views Narrative XR CHEST 2 VW 12/27/2018 2:35 PM HISTORY: Bilateral bases coarse breath sounds; Cough Impression IMPRESSION: Patchy infiltrate left lung base. ZHOU LANDEROS MD Influenza A/B antigen Result Value Ref Range Influenza A/B Agn Specimen Nasal Influenza A Negative NEG^Negative Influenza B Negative NEG^Negative ASSESSMENT/PLAN: 1. Pneumonia of left lower lobe due to infectious organism (H) Treat as below. Follow-up if fever does not improve in 48 hours or if worsening symptoms occur. Discussed symptomatic treatment. - azithromycin (ZITHROMAX) 250 MG tablet; Two tablets first day, then one tablet daily for four days. Dispense: 6 tablet; Refill: 0 2. Cough - XR Chest 2 Views - Influenza A/B antigen The information in this document, created by the medical staff credentialing coordinator for me, accurately reflects the services I personally performed and the decisions made by me. I have reviewed and approved this document for accuracy prior to leaving the patient care area. December 27, 2018 3:07 PM Edgar Cunningham MD [facility] ST ECOLOGY PROFESSOR documented in this encounter Plan of Treatment Not on filedocumented as of this encounter Procedures Procedure Name Priority Date/Time Associated Diagnosis Comme nts INFLUENZA A/B Routine 12/27/2018 2:28 PM Cough Results for this ANTIGEN FOREST ECOLOGY PROFESSOR procedure are i n the results section. XR CHEST 2 VIEWS Routine 12/27/2018 2:27 PM Cough Resul ts for this FOREST ECOLOGY PROFESSOR procedure are i n the results section. documented in this encounter Results Influenza A/B antigen (12/27/2018 2:28 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) athologist Signature Influenza A/B Nasal 12/27/2018 [place] Agn Specimen 2:29 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 [facility] Influenza A Negative NEG^Negati 12/27/2018 [place] ve 2:43 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 [facility] Influenza B Negative NEG^Negati 12/27/2018 [place] ve 2:43 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 [facility] Comment: Test results must be correlated with cli nical data. If necessary, results should be confirmed by a molecular assay or viral culture. Specimen Anatomical Collection Method Collection Time Receive d Time (Source) Location / / Volume Laterality Specimen from 12/27/2018 2:28 PM 12/27/19 19 2:29 nose (specimen) FOREST ECOLOGY PROFESSOR 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 Edgar Cunningham MD LAB - MICRO GENERAL ORDERABL ES Performing Organization Address City/State/ZIP Code Phon e Number [facility] [id number] [place] [address] XR Chest 2 Views (12/27/2018 2:27 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) Anatomical Region Laterality Modality Chest Computed Radiography Specimen (Source) Anatomical Location Collection Method / Collectio n Time Received Time / Laterality Volume Impressions 12/27/2018 2:36 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 IMPRESSION: Patchy infiltrate left lung base. ZHOU LANDEROS MD Narrative 12/27/2018 2:36 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 XR CHEST 2 VW 12/27/2018 2:35 PM HISTORY: Bilateral bases coarse breath s ounds; Cough Procedure Note Zhou Landeros MD - 12/27/2018[place]att ing of this note might be different from the original. XR CHEST 2 VW 12/27/2018 2:35 PM HISTORY: Bilateral bases coarse breath s ounds; Cough IMPRESSION: Patchy infiltrate left lung base. ZHOU LANDEROS MD Edgar Cunningham MD [facility] DI[facility]ST[facility]AG[facility] ORDER [place] documented in this encounter Visit Diagnoses Diagnosis Pneumonia of left lower lobe due to infe ctious organism - Primary Cough Malignant neoplasm of ascending colon (H ) Malignant neoplasm of ascending colon documented in this encounter Care Teams [employer] Director Relationship Specialty Start Date End Date Liudmila David MD PCP - General Family Practice 02/12/14 1 12/06/19 Liudmila David MD Assigned PCP 10/12/15 documented as of this encounter
--- OUTSIDE RECORDS SUMMARY | 2022-08-18 09:28 | XMS_ITS | Encounter Summary ---
:1945 Author Organization [place] Address [facility] [place] [address] Care Team Providers Name Role Phone Liudmila David MD Primary Care Provider Unavailable Liudmila David MD Unavailable Unavailable Reason for Visit Auth/Cert Specialty Diagnoses / Procedures Referred By Contact Refer red To Contact Surgery Diagnoses RIGHT KIDNEY STONES Sh Periop Services Procedures LITHOTRIPSY, EXTRACORPOREAL SHOCK WAVE (ESWL), WITH CYSTOSCOPY AND URETERAL STENT INSERTION [address] [place] [address] Phone: Referral ID Status Reason Start Date Expiration Date Visits Requ ested Visits Authorized [id number] 1 1 Encounter Details Date Type Department Care Team Description 03/28/2019 Surgery [facility] [place], RIGHT LITH OTRIPSY, [place] PeriOP MD Jared EXTRACORPOREAL SHOCK WAVE Services [facility] (ES[facility]), WITH CYSTOSCOPY [address] R[address] HT URETERAL STENT [address] [place] [address] [place], [place] [id number] Surgery Details Date/Time Status Location OR Service Patient Case Class Case Tr auma Class Type Case? 03/28/19 11:25 Posted OR OR [facility] Same Day AM Surgery Panel 1 Procedure LRB Anes Op Region Wound Class Commen ts RIGHT LITHOTRIPSY, Bilateral General Ureter II-Clean Contamin ated EXTRACORPOREAL SHOCK WAVE (ESWL), WITH CYSTOSCOPY AND RIGHT URETERAL STENT INSERTION Surgeon Surgeon Role Service Panel Jared Phipps MD Primary Urology 1 Case Notes [facility]28 Special Needs CALLED RIGOBERTO AT [facility] 03/05 documented in this encounter Social History Tobacco Use Types Packs/Day Years Used Date Smoking Tobacco: Former Cigarettes 0.5 15 Quit : 11/07/1995 Smokeless Tobacco: Never Alcohol Use Standard Drinks/Week Comments Yes 0 (1 standard drink = 0.6 oz pure alcoho l) rarely Sex Assigned at Date Recorded Female 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 documented as of this encounter Last Filed Vital Signs Vital Sign Reading Time Taken Comments Blood Pressure 117/93 03/28/2019 12:45 PM CDT Pulse 63 03/28/2019 12:45 PM CDT Temperature 35.9 ??C (96.6 ??F) 03/28/2019 12:45 PM CDT Respiratory Rate 12 03/28/2019 12:45 PM CDT Oxygen Saturation 95% 03/28/2019 12:45 PM CDT Inhaled Oxygen Concentration - - Weight 95.3 kg (210 lb) 03/28/2019 9:53 AM CDT Height 167.6 cm (5' 6) 03/28/2019 9:53 AM CDT Body Mass Index 33.89 03/28/2019 9:53 AM CDT documented in this encounter Discharge Instructions Discharge InstructionsAlexandra Malone RN - 03/28/2019 12:48 PM CDT Same Day Surgery Discharge Instructions for Sedation and General Anesthesia ?? It's not unusual to feel dizzy, light-headed or faint for up to 24 hours after surgery or while taking pain medication. If you have these symptoms: sit for a few minutes before standing and have someone assist you when you get up to walk or use the bathroom. ?? You should rest and relax for the next 24 hours. We recommend you make arrangements to have an adult stay with you for at least 24 hours after your discharge. Avoid hazardous and strenuous activity. ?? DO NOT DRIVE any vehicle or operate mechanical equipment for 24 hours following the end of your surgery. Even though you may feel normal, your reactions may be affected by the medication you have received. ?? Do not drink alcoholic beverages for 24 hours following surgery. ?? Slowly progress to your regular diet as you feel able. It's not unusual to feel nauseated and/or vomit after receiving anesthesia. If you develop these symptoms, drink clear liquids (apple juice, elen garrick, broth, 7-up, etc. ) until you feel better. If your nausea and vomiting persists for 24 hours, please notify your surgeon. ?? All narcotic pain medications, along with inactivity and anesthesia, can cause constipation. Drinking plenty of liquids and increasing fiber intake will help. ?? For any questions of a medical nature, call your surgeon. ?? Do not make important decisions for 24 hours. ?? If you had general anesthesia, you may have a sore throat for a couple of days related to the breathing tube used during surgery. You may use Cepacol lozenges to help with this discomfort. If it worsens or if you develop a fever, contact your surgeon. ?? If you feel your pain is not well managed with the pain medications prescribed by your surgeon, please contact your surgeon's office to let them know so they can address your concerns. DISCHARGE INSTRUCTIONS FOLLOWING EXTRACORPOREAL SHOCK LITHOTRIPSY (ESWL) Your stone(s) has been fragmented into many tiny pieces, which must now pass in your urine. Usually this process is uneventful. Most fragments pass in the first one or two week, but some may continue to pass for three months or more. Some pain or discomfort may accompany the passage of these fragments. To aid in the passage of fragments, drink lots of fluid. Aim for 1 glass an hour for the next 1 to 2weeks (2 quarts or more a day). Most stone patients will benefit from a continued high fluid intake and urine output indefinitely, even after the fragments are gone. This helps prevent new stone formation. Strain your urine. Take the stone fragments to your urologist. They will have them analyzed to help determine the cause of your stone(s). You should walk around and resume every day activities. Activity may help the stone fragments pass. You should, however, avoid sports or really strenuous exercise for about a week, or at least until there is no more blood in your urine. You may resume regular diet. Call your urologist if you have: a. Persistent severe pain not relieved by oral medications. b. Fever (over 101??). c. Persistent vomiting. See your urologist as directed. They will need to take an x-ray to check your progress. Take your stone fragments to your follow-up appointment. STENT INFORMATION SHEET During surgery, a stent may be place in the ureter. The ureter is the tube that drains urine from the kidney to the bladder. The stent is placed to dilate (open) the ureter so the stone fragments can pass easily through the ureter or to decrease ureteral swelling after surgery, or to relieve an obstruction. The stent is made of rubber. The upper end of the stent curls in the kidney while the lower end rests in the bladder. While the stent is in place you may experience the following symptoms: ??? Blood and/or small blood clots in urine. ??? Bladder spasm (frequency and urgency of urination). ??? Discomfort or aching in the back or side where the stent is. ??? Burning or discomfort at the end of urine stream. To decrease these symptoms you should: ??? Take pain medication as prescribed. ??? Drink plenty of fluids. ??? If you experience pain at the end of urination try not emptying your bladder completely. ??? If having discomfort in back or side, decrease activity. Please call your physician or the physician electronics lead if you experience: ??? Fever greater than 101??. ??? Severe pain not relieved by pain medication or rest. Cystoscopy Discharge Instructions Diet: ??? Return to the diet that you were on before the procedure, unless you are given specific diet instructions. ??? It is important to drink 6-8 glasses of fluids per day at home - at least 3- 4 glasses should be water. Activity: ??? Walk short distances and increase as your strength allows. ??? You may climb stairs. ??? Do not do strenuous exercise or heavy lifting until approved by surgeon. ??? Do not drive while taking narcotic pain medications. Bathing: ??? You may take a shower. Call your physician if these signs/symptoms are present: ??? Pain that is not relieved by a short rest or ordered pain medications. ??? Temperature at or above 101.0??F or chills. ??? Inability or difficulty urinating. Excessive blood in urine. ??? Any questions or concerns. Please make an appointment for removal of the stent according to your physician???s instructions. If you have questions or concerns about your procedure, call Dr. Phipps at [phone] documented in this encounter Medications at Time of Discharge Medication Sig Dispensed Refills Start Date End Date hydrochlorothiazide Take 1 tablet (25 90 tablet 3 9 (HYDRODIURIL) 25 MG mg) by mouth tabletIndications: Essential daily hypertension, benign losartan (COZAAR) 100 MG Take 1 tablet 90 tablet 3 02/08/20 19 tabletIndications: Essential (100 mg) by mouth hypertension, benign daily Multiple Vitamins-Minerals Take 1 tablet by 0 (MULTIVITAMIN OR) mouth daily triamcinolone (KENALOG) 0.1 Apply topically 2 30 g 0 0 02/13/2018 % creamIndications: times daily Dermatitis ciprofloxacin (CIPRO) 500 MG Take 1 tablet 8 tablet 0 03/0806/04/2019 tabletIndications: Essential (500 mg) by mouth hypertension, benign 2 times daily for 8 doses HYDROcodone-acetaminophen Take 1 tablet by 20 tablet 0 03/0806/04/2019 (NORCO) 5-325 MG mouth every 4 tabletIndications: Essential hours as needed hypertension, benign documented as of this encounter Nursing Notes Alexandra Malone RN - 03/28/2019 1:06 PM CDT PNDS met, po per I&O sheet. Pt dressed, up in recliner and transported to Phase 2. July Lainez RN - 03/28/2019 11:58 AM CDT Assumed nursing cares while nurse went on a 30 minute lunch break. documented in this encounter Miscellaneous Notes Op Note - Jared Phipps MD - 03/28/2019 1:11 PM CDT Procedure Date: 03/28/2019 PREOPERATIVE DIAGNOSIS: Right kidney stone. POSTOPERATIVE DIAGNOSIS: Right kidney stone. PROCEDURE PERFORMED: Right extracorporeal shock wave lithotripsy and right stent placement. She has multiple stones in her right kidney. INDICATIONS FOR PROCEDURE: Shahnaz is a 73-year-old female with a history of recurrent nephrolithiasis who presents with increased number of her kidney stones by KUB and ultrasound and we consented her for elective procedure such as extracorporeal shock wave lithotripsy. She understands risks of the procedure including bleeding, infection, injury, need for additional surgery, discomfort associated with the stent. She would like to proceed. DETAILS OF THE PROCEDURE: Shahnaz was brought to the operating room, placed in supine position. After excellent induction of general anesthesia, her perineum was prepped and draped in the regular fashion. Cystoscopy was performed that did not demonstrate any bladder pathology. Attention was brought to the right ureteral orifice. Glidewire was passed all the way to the right renal pelvis under fluoroscopic guidance and I positioned a 6 x 28 double-J ureteral stent. Initially I positioned a 6 x 26, but that appears to be a little bit small and coiling the proximal ureter. Therefore, I repositioned the stent going closer to the upper pole kidney stone. Her upper pole 8 mm stone was too easily identified and once her bladder was drained, we repositioned her supine and using Zecter shock wave lithotripter to deliver 1800 shock waves to the upper pole 8 mm stone. Of note, we did make a kidney pulse of 100 and we used low rate to get started of 65 and increase it to 75 and 90 slowly. As well, we will also increase the intensity from 5, 6 to 7 at the endof the case. She also had a number of fragments in the lower pole of the kidney, which were blasted using additional 600 shock waves to the lower pole. Of total 2400 shock waves total to the right kidney. At the completion of the procedure, I did not see any large fragments present. Therefore, she was transferred to Recovery in stable condition. The plan as of now would be to see her back in 3-week interval with a KUB prior to removal of the stent in the clinic. JARED PHIPPS MD MT: CINDI Name: SHAHNAZ GLASGOW Account: [id number] : 1945 Procedure Date: 03/28/2019 Document: [id number] Brief Op Note - Jared Phipps MD - 03/28/2019 10:29 AM CDT [facility] Brief Operative Note Pre-operative diagnosis: RIGHT KIDNEY STONES Post-operative diagnosis Same Procedure: Procedure(s): RIGHT LITHOTRIPSY, EXTRACORPOREAL SHOCK WAVE (ESWL), WITH CYSTOSCOPY AND RIGHT URETERAL STENT INSERTION Surgeon: Jared Phipps MD Assistants(s): none Estimated blood loss: None Specimens: None Findings: Smaller stones up to 7-8 mm in size documented in this encounter Plan of Treatment Not on filedocumented as of this encounter Procedures Procedure Name Priority Date/Time Associated Diagnosis Comme nts LITHOTRIPSY, 03/28/2019 10:29 AM RIGHT KIDNEY STONES EXTRACORPOREAL SHOCK WAVE CDT (ESWL), WITH CYSTOSCOPY AND URETERAL STENT INSERTION Case Notes IMPLANT REVIEWED [facility] LITH O CHARGES ENTERED [facility] 03/28 Special Needs CALLED RIGOBERTO AT [facility] TO SCHEDULE 03/05 documented in this encounter Visit Diagnoses Not on filedocumented in this encounter Administered Medications Inactive Administered Medications - up to 3 most recent administrations Medication Order MAR Action Action Date Dose Rate Site HYDROcodone-acetaminophen Given 03/28/2019 1:03 PM CDT 1 tablet (NORCO) 5-325 MG per tablet 1 tablet 1 tablet, Oral, ONCE, On Tue03/28/19 at 1200, For 1 dose, May administer ONCE as needed for pain control or improvement in physical function. Notify provider to assess for uncontrolled pain or??analgesic side effects. Maximum acetaminophen dose from all sources= 75 mg/kg/day not to exceed 4 grams, Post-procedure opium-belladonna (B&O SUPPRETTES) 30-16.2 MG Given 11:02 AM CDT 30 mg per suppository PRN, Starting on Tue03/28/19 at 1102, Intra-procedure sterile water (bottle) irrigation Given 03/28/2019 10:55 AM CDT 3,000 mLs PRN, Intra-procedure, Starting on Tue03/28/19 at 1055, Until Tue03/28/19 at 1307 documented in this encounter Active and Recently Administered Medications Times are shown in CDT. Scheduled Medication Order 03/26/2019 03/27/2019 03/28/2019 ciprofloxacin (CIPRO) infusion 400 mg (COMPLETED) 1041 (Handoff - Provider: Yesy Hugo, RN)1046 (Given - Provider: Joann Mandel APRN [employer]) 400 mg, Intravenous, PRE-OP/PRE-PROCEDUR E, Starting Tue03/28/19 at 0952, For 1 dose, Irritant., Indications: Perioperative Pharmacoprophylaxis, Pre-procedure HYDROcodone-acetaminophen (NORCO) 5-325 MG per tablet 1 tablet ( COMPLETED) 1303 (Given - Provider: Alexandra Malone RN) 1 tablet, Oral, ONCE, On Tue03/28/19 at 1200, For 1 dose, May administer ONCE as needed for pain control or improvement in physical function. Notify provider to assess for uncontrolled pain or??analgesi c side effects. Maximum acetaminophen do se from all sources= 75 mg/kg/day not to exceed 4 grams, Post-procedure PRN Medication Order 03/26/2019 03/27/2019 03/28/2019 opium-belladonna (B&O SUPPRETTES) 30-16.2 MG per suppository (CA NCELED) 1102 (Given - Provider: Jared Phipps MD) PRN, Starting Tue03/28/19 at 1102, Intra-procedure sterile water (bottle) irrigation (CANCELED) 1055 (Given - Provider: Jared Phipps MD) PRN, Intra-procedure, Starting Tue03/28/19 at 1055, Until Tue at 1307 documented in this encounter Care Teams Brusher Hand Relationship Specialty Start Date End Date Liudmila David MD PCP - General Family Practice 02/12/14 1 12/06/19 Liudmila David MD Assigned PCP 10/12/15 documented as of this encounter
--- OUTSIDE RECORDS SUMMARY | 2022-08-18 09:28 | XMS_ITS | Encounter Summary ---
:1945 Author Organization [place] Address [facility] [place] [address] Care Team Providers Name Role Phone Liudmila David MD Primary Care Provider Unavailable Liudmila David MD Unavailable Unavailable Reason for Visit Auth/Cert Specialty Diagnoses / Procedures Referred By Contact Refer red To Contact Gastroenterology Diagnoses PERSONAL HISTORY OF COLON POLYPS Sh Endoscopy Procedures COLONOSCOPY [address] [phone] Phone: Referral ID Status Reason Start Date Expiration Date Visits Requ ested Visits Authorized [id number] 1 1 Encounter Details Date Type Department Care Team Description 10/25/2018 Hospital Encounter [facility] [address] MD [facility] Endoscopy COLON RECTAL SURG [address] [place] [phone] [phone] [address] [place] [address] (Wo rk) Social History Tobacco Use Types Packs/Day Years Used Date Smoking Tobacco: Former Cigarettes 0.5 15 Quit : 11/07/1995 Smokeless Tobacco: Never Alcohol Use Standard Drinks/Week Comments Yes 0 (1 standard drink = 0.6 oz pure alcoho l) Once per week Sex Assigned at Date Recorded Female 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 documented as of this encounter Last Filed Vital Signs Vital Sign Reading Time Taken Comments Blood Pressure 107/65 10/25/2018 9:30 AM CONSUMER ANALYST Pulse 68 10/25/2018 9:30 AM CONSUMER ANALYST Temperature - - Respiratory Rate 19 10/25/2018 9:30 AM CONSUMER ANALYST Oxygen Saturation 97% 10/25/2018 9:30 AM CONSUMER ANALYST Inhaled Oxygen Concentration - - Weight 98 kg (216 lb) 10/25/2018 7:19 AM CONSUMER ANALYST Height 168.9 cm (5' 6.5) 10/25/2018 7:19 AM CONSUMER ANALYST Body Mass Index 34.34 10/25/2018 7:19 AM CONSUMER ANALYST documented in this encounter Medications at Time [...] 8:53 AM Res ults for this EXAM CONSUMER ANALYST procedure are i n the results section. COLONOSCOPY, WITH 10/25/2018 8:10 AM PERSONAL HISTORY OF POLYPECTOMY AND CONSUMER ANALYST COLON POLYPS BIOPSY COLONOSCOPY Routine 10/25/2018 6:51 AM Results f or this CONSUMER ANALYST procedure are i n the results section. documented in this encounter Results Surgical pathology exam (10/25/2018 8:53 AM CONSUMER ANALYST) Component Value Ref Test Analysis Performed At [facility] Range Method Time Signature Copath Report Patient Name: SHAHNAZ GLASGOW MR#: [id number] Specimen #: [id number] Collected: 10/25/2018 Received: 10/25/2018 Reported: 10/26/2018 10:25 [...] microscopic exam is performed. CPT Codes: A: 91108-PS3 TESTING LAB LOCATION: [address] ??[address] COLLECTION SITE: Client: [facility] Location: [place] (S) Specimen (Source) Anatomical Collection Method Collection Time Re ceived Time Location / / Volume Laterality Polyp SIGMOID COLON PART 10/25/2018 8:53 AM (morphologic / Unknown CONSUMER ANALYST abnormality) Jerry DRIVER - MARIA GUADALUPE Performing Organization Address City/State/ZIP Code Phon e Number [place] COLONOSCOPY (10/25/2018 6:51 AM CONSUMER ANALYST) Component Value Ref Test Analysis Performed At [facility] Method Time Signature COLONOSCOPY [facility] RADIOLOGY [facility] Endoscopy Department RESULTS Patient Name: Shahnaz Glasgow ?Procedure Date: 12/26/2017 6:51 AM ? Accou nt Number: [id number] Date of : 1945 ? Admit Type: Outp atient Age: 73 ? Room: special procedure room #1 Note Status: Finalized ?Attending MD: Jerry Lane MD Total Sedation Time: ?I nstrument Name: 325 [id number] AdultColonoscope Procedure: ?Colonoscopy Indications: ?High ri sk [...] of the ileum was normal. ?- Patent [id number] ileo-colonic anastomosis, ?characterized by healthy appearing mucosa. [...] Procedure Code(s): ? --- Professional --- ? 18099, Colonoscopy, flexible; with biopsy, single or multiple Diagnosis Code(s): ? --- Professional --- ? K57.30, Diverticulosi s of large intestine without perforation or abscess ? without bleeding ? D12.5, Benign neoplasm of sigmoid colon ? Z98.0, Intestinal bypass and anastomosis status ? Z85.038, Personal his tory of other malignant neoplasm of large intestine CPT copyright 2017 [employer]. All rights reserved. The codes documented in this report are prelimin elke and upon nurses medical assistants phlebotomists review may be revised to meet current compliance requirements. Jerry Lane MD 10/25/2018 9:09:21 AM I was physically present for the entire viewing portion of t he exam. Jerry Lane MD Number of Addenda: 0 Note Initiated On: 10/25/2018 6:51 AM MRN: ?[id number] Procedure Date: ? 10/25/2018 6:51:20 AM Scope Withdrawal Time: 0 hours 14 minutes 52 seconds Total Procedure Duration: 0 hours 42 minutes 36 seconds Estimated Blood Loss: ? Scope In: 8:18:45 AM Scope Out: 9:01:21 AM Specimen (Source) Anatomical Collection Method Collection Time Re ceived Time Location / / Volume Laterality 10/25/2018 6:51 AM CONSUMER ANALYST Liudmila David MD PROCEDURES Performing Organization Address [...] 4 HOURS PRN, i tching, Starting on Tue10/25/18 at 0950, Use only if patient [...] Rate is greater than 10, Starting on Tue12/26/17 at 0950, Max cumulative dose = 2 [...] Recently Administered Medications Times are shown in CONSUMER ANALYST. Scheduled Medication Order 10/23/2018 10/24/2018 10/25/2018 0.9% [...] mg 0.3-0.5 mg, Intravenous, EVERY 10 MIN [place] N, Starting Tue10/25/18 at 0950, Until Tue10/30/18 [...]
Post-procedure documented in this encounter Care Teams Child Neurologist Relationship Specialty Start Date End Date Liudmila David MD PCP - General Family Practice 02/12/14 1 12/06/19 Liudmila David MD Assigned PCP 10/12/15 documented as of this encounter
--- OUTSIDE RECORDS SUMMARY | 2022-08-18 09:28 | XMS_ITS | Encounter Summary ---
:1945 Author Organization [facility] Address [address] [place] [address] Care Team Providers Name Role Phone Liudmila David MD Primary Care Provider Unavailable Liudmila David MD Unavailable Unavailable Reason for Visit Reason Comments Pre-Op Exam DOS 03/28, Dr. Jackson, kid tessa stone removal Encounter Details Date Type Department Care Team Description 03/19/2019 Office Visit [facility] Liudmila David Preope rative examination (Primary Dx); Prateek Gatica MD Calculus of kidney [address] 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 [address] [place] [address] [address] [facility] [address] Dept: [phone] PRE-OP EVALUATION: Today's date: 03/19/2019 Shahnaz Phelps (: 1945) presents for pre-operative evaluation assessment as requestedby Dr. Jackson. She requires evaluation and anesthesia risk assessment prior to undergoing surgery/procedure for treatment of kidney stones. Proposed Surgery/ Procedure: RIGHT LITHOTRIPSY, EXTRACORPOREAL SHOCK WAVE (ESWL), WITH CYSTOSCOPY AND RIGHT URETERAL STENT INSERTION Date of Surgery/ Procedure: 03/28/19 Time of Surgery/ Procedure: 11:35 am Hospital/Surgical Facility: [facility] Can see in [facility] Primary Physician: Liudmila David Type of [...] YOUR RELATIVES EVER HAD PROBLEMS WITH ANESTHESIA? Nausea and vomiting for several hours after surgery 14. NO - Do you have sleep apnea, excessive snoring or daytime drowsiness? 15. NO - Do you have any prosthetic heart valves? 16. NO - Do you have prosthetic joints? 17. NO - Is there any chance that you may be ? HPI: HPI related to upcoming procedure: Right kidney stones- lithotripsy MEDICAL HISTORY: Patient Active Problem List Diagnosis Date Noted ??? Venous stasis dermatitis of both lower extremities 05/19/2017 Priority: Medium ??? Abnormal glucose 02/11/2017 Priority: Medium ??? History of malignant carcinoid tumor 04/17/2015 Priority: Medium ??? 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 Calculus of kidney 03/28/2012 [...] Left 04/2005 left breast (calcium buildup) ??? COLONOSCOPY 06/2012 scheduled ??? COLONOSCOPY N/A [...] % cream Apply topically 2 times daily 30 g 0 OTC products: no recent use of OTC ASA, NSAIDS or Steroids Allergies Allergen Reactions ??? Amoxicillin Itching rash ??? Imidazole Antifungals hives ??? Penicillins hives Latex Allergy: NO Social History Tobacco Use ??? Smoking status: Former Smoker Packs/day: 0.50 Years: 15.00 Pack years: 7.50 Last attempt to quit: 11/07/1995 Years since quittin.3 ??? Smokeless tobacco: Never Used Substance Use Topics ??? Alcohol use: Yes Alcohol/week: 0.0 oz Comment: Once per week History Drug Use No REVIEW OF SYSTEMS: Constitutional, neuro, ENT, endocrine, pulmonary, cardiac, gastrointestinal, genitourinary, musculoskeletal, integument and psychiatric systems are negative, except as otherwise noted. Varicose veins- aching of legs Knee pain- better with cortisone injection- anticipating total knee replacement EXAM: BP 120/74 (BP Location: Left arm, Patient Position: Sitting, Cuff Size: Adult Regular) Pulse 68 Temp 98.3 ??F (36.8 ??C) (Oral) Ht 1.708 m (5' 7.25) Wt 96.6 kg (213 lb) SpO2 96% BMI 33.11 kg/m?? GENERAL APPEARANCE: healthy, alert and no [...] normal, mentation intact and speech normal DIAGNOSTICS: EK10/18/2018 Normal sinus rhythm Hemoglobin Date Value Ref Range Status 03/19/2019 13.0 11.7 - 15.7 g/dL Final ] Potassium Date Value Ref Range Status 03/19/2019 4.16 3.5 - 5.3 mmol/L Final Lab Results Component Value Date CR 0.87 03/19/2019 Recent Labs Lab Test 02/07/19 0953 02/07/19 0941 10/18/18 1341 10/18/18 1325 02/13/18 0959 02/13/18 0935 02/13/18 0931 HGB -- -- -- 14.5 -- -- 14.0 PLT -- -- -- 257 -- -- 239 NA -- -- 142 -- 141 -- -- POTASSIUM 4.1 -- 3.6 -- 3.9 -- -- CR -- -- 0.88 -- 0.73 -- -- A1C -- 5.5 -- -- -- 5.7 -- IMPRESSION: Reason for surgery/procedure: Lithotrypsy The proposed surgical procedure is considered LOW risk. REVISED CARDIAC RISK INDEX The patient has the following serious cardiovascular risks for perioperative complications such as (WI, PE, VFib and 3?? AV Block): No serious cardiac risks INTERPRETATION: 0 risks: Class I (very low risk - 0.4% complication rate) The patient has the following additional risks for perioperative complications: No identified additional risks ICD-10-CM 1. Preoperative examination Z01.818 Basic Metabolic Panel (BFP) VENOUS COLLECTION HEMOGRAM/PLATELET (BFP) 2. Calculus of kidney N20.0 RECOMMENDATIONS: --Patient is to take all scheduled medications on the day of surgery EXCEPT for modifications listedbelow. FLO Inhibitor or Angiotensin Receptor Cisco (ARB) Use Flo inhibitor or Angiotensin Receptor Cisco (ARB) and should HOLD this medication for the 24 hoursprior to surgery. APPROVAL GIVEN to proceed with proposed procedure, without further diagnostic evaluation Signed Electronically by: Liudmila David MD Copy of this evaluation report is provided to requesting physician. [facility] Preop Guidelines Revised Cardiac Risk Index documented in this encounter Nursing Notes Radha Abdul CMA - 03/19/2019 2:45 PM CDT Patient is here for preop today. documented in this encounter Plan of Treatment Not on filedocumented as of this encounter Procedures Procedure Name Priority Date/Time Associated Diagnosis Comme nts BASIC METABOLIC Routine 03/19/2019 4:30 PM Preoperative Result s for this PANEL (BFP) CDT examination procedure are i n the results section. ZZCL AFF Routine 03/19/2019 2:52 PM Preoperative Results f or this HEMOGRAM/PLATELET CDT examination procedure are in the results section. HC VENOUS Routine 03/19/2019 2:43 PM Preoperative COLLECTION CDT examination documented in this encounter Results (ABNORMAL) Basic Metabolic Panel (BFP) (03/19/2019 4:30 PM CDT) P athologist Signature Carbon Dioxide 30.8 20 - 32 BFP INTERNAL mmol/L Creatinine 0.87 0.70 - BFP INTERNAL 1.18 mg/dL Glucose 101 (A) 60 - 99 BFP INTERNAL mg/dL Sodium 144.3 135 - 146 BFP INTERNAL mmol/L Potassium 4.16 3.5 - 5.3 BFP INTERNAL mmol/L Chloride 104.4 98 - 110 BFP INTERNAL mmol/L Urea Nitrogen 25 7 - 25 BFP INTERNAL mg/dL Calcium 9.9 8.6 - 10.3 BFP INTERNAL mg/dL Specimen (Source) Anatomical Collection Method Collection Time Re ceived Time Location / / Volume Laterality Blood specimen 03/19/2019 4:30 PM (specimen) CDT Liudmila David MD LAB - NON-BEAKER BLOOD LABS Performing Organization Address City/State/ZIP Code Phon e Number BFP INTERNAL HEMOGRAM/PLATELET (BFP) (03/19/2019 2:52 PM CDT) P athologist Signature WBC 6.6 4.0 - 11 BFP INTERNAL 10*9/L RBC Count 4.26 3.8 - 5.2 BFP INTERNAL 10*12/L Hemoglobin 13.0 11.7 - 15.7 BFP INTERNAL g/dL Hematocrit 40.3 35.0 - 47.0 BFP INTERNAL % MCV 94.5 78 - 100 fL BFP INTERNAL MCH 30.5 26 - 33 pg BFP INTERNAL MCHC 32.3 31 - 36 BFP INTERNAL g/dL RDW 12.8 % BFP INTERNAL Platelet Count 254 150 - 375 BFP INTERNAL 10^9/L Specimen (Source) Anatomical Collection Method Collection Time Re ceived Time Location / / Volume Laterality 03/19/2019 2:52 PM CDT Liudmila David MD LABORATORY Performing Organization Address City/[facility]/ZIP [facility] [place] [place] Phon e Number BFP INTERNAL documented in this encounter Visit Diagnoses Diagnosis Preoperative examination - Primary Preoperative examination, unspecified Calculus of kidney documented in this encounter Care Teams Animal Therapist Relationship Specialty Start Date End Date Liudmila David MD PCP - General Family Practice 02/12/14 1 12/06/19 Liudmila David MD Assigned PCP 10/12/15 documented as of this encounter
--- OUTSIDE RECORDS SUMMARY | 2022-08-18 09:28 | XMS_ITS | Encounter Summary ---
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
--- OUTSIDE RECORDS SUMMARY | 2022-08-18 09:28 | XMS_ITS | Encounter Summary ---
:1945 Author Organization [facility] Address [address] [place] [address] Care Team Providers Name Role Phone Liudmila David MD Primary Care Provider Unavailable Liudmila David MD Unavailable Unavailable Reason for Visit Reason Comments Sinus Problem sore throat started 2 weeks ago, sinus pain and pressure from congestion, lost voice and i s getting a tickle in her throat which causes a slight cough, cough ing up a lot of phlegm Encounter Details Date Type Department Care Team Description 06/04/2019 Office Visit [facility] Liudmila David Acute sinusitis with Physicians MD En symptoms > 10 days [address] [facility] (Primary Dx) [address] [place] [address] Social History Tobacco Use Types Packs/Day Years Used Date Smoking Tobacco: Former Cigarettes 0.5 15 Quit : 11/07/1995 Smokeless Tobacco: Never Alcohol Use Standard Drinks/Week Comments Yes 0 (1 standard drink = 0.6 oz pure alcoho l) rarely Sex Assigned at Date Recorded Female 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 of 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 encounter Last Filed Vital Signs Vital Sign Reading Time Taken Comments Blood Pressure 126/82 06/04/2019 6:20 PM CDT Pulse 83 06/04/2019 6:20 PM CDT Temperature 37.1 ??C (98.7 ??F) 06/04/2019 6:20 PM CDT Respiratory Rate 20 06/04/2019 6:20 PM CDT Oxygen Saturation 96% 06/04/2019 6:20 PM CDT Inhaled Oxygen Concentration - - Weight 95.7 kg (211 lb) 06/04/2019 6:20 PM CDT Height - - Body Mass Index 34.06 03/28/2019 9:53 AM CDT documented in this encounter Patient Instructions Patient InstructionsLiudmila David MD - 06/04/2019 6:15 PM CDT Consider taking flonase (nose spray) or mucinex Drink lots of fluids documented in this encounter Progress Notes Liudmila David MD - 06/04/2019 6:15 PM CDT SUBJECTIVE: 73 year old female presents with the following concern: Two weeks ago , she developed a mild sore throat while camping subsequent sinus pressue, (which has gone away) Then hoarsenss After two weeks, she is left with a dry tickle in her throat Worse if she lays down - coughs quite a bit during the night She plans to go camping again this weekend- with her grandson She does not feel ill Lots of flem-cough is productive Past medical History: She has not had problems with allergies She does have a history of sinus infections- no sinus surgery She took sinus medication the first week of her illness Patient Active Problem List Diagnosis ??? History of colonic polyps ??? Diverticulosis of large intestine ??? Osteoarthritis ??? 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 Obesity ??? Essential hypertension, benign ??? ACP (advance care planning) ??? Calculus of kidney ??? Health Snf ??? History of malignant carcinoid tumor ??? [...] BY BIOPSY; Surgeon: Jerry Lane MD; Location: [facility] ??? 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 EXTRACORPOREAL SHOCK WAVE LITHOTRIPSY, CYSTOSCOPY, INSERT STENT URETER(S), COMBINED 06/08/2012 Procedure: COMBINED EXTRACORPOREAL SHOCK WAVE LITHOTRIPSY, CYSTOSCOPY, INSERT STENT URETER(S); RIGHT COMBINED EXTRACORPOREAL SHOCK WAVE LITHOTRIPSY, CYSTOSCOPY, RIGHT STENT, LEFT RETROGRADE.; Surgeon:Jared Jackson MD; Location: [facility] OR ??? EXTRACORPOREAL SHOCK WAVE LITHOTRIPSY, CYSTOSCOPY, INSERT STENT URETER(S), COMBINED Bilateral 03/28/2019 Procedure: RIGHT LITHOTRIPSY, EXTRACORPOREAL SHOCK WAVE (ESWL), WITH CYSTOSCOPY AND RIGHT URETERAL STENT INSERTION; Surgeon: Jared Jackson MD; Location: [facility] OR ??? HC [...] LEFT Bilateral 2011 Current Outpatient Medications Medication ??? hydrochlorothiazide (HYDRODIURIL) 25 MG tablet ??? losartan (COZAAR) 100 MG tablet ??? Multiple Vitamins-Minerals (MULTIVITAMIN OR) ??? triamcinolone (KENALOG) 0.1 % cream No current facility-administered medications for this visit. ROS: 7 point ROS neg other than the symptoms noted above in the HPI. OBJECTIVE: BP 126/82 (BP Location: Right arm, Patient Position: Sitting, Cuff Size: Adult Regular) Pulse 83 Temp 98.7 ??F (37.1 ??C) (Oral) Resp 20 Wt 95.7 kg (211 lb) SpO2 96% BMI 34.06 kg/m?? External ears and canals clear bilaterally. TM's normal bilaterally. Nose normal without lesions or discharge. Oropharynx: erythema of the posterior pharynx with purulent drainage. Neck supple without palpable adenopathy. Chest is clear Assessment (J01.90) Acute sinusitis with symptoms > 10 days (primary encounter diagnosis) Comment: Plan: DISCONTINUED: azithromycin (ZITHROMAX) 250 MG tablet Call or return to clinic prn if these symtoms worsen, fail to improve as anticipated, or if new symptoms develop. documented in this encounter Nursing Notes Radha Abdul CMA - 06/04/2019 6:15 PM CDT Chief Complaint Patient presents with ??? Sinus Problem sore throat started 2 weeks ago, sinus pain and pressure from congestion, lost voice and is gettinga tickle in her throat which causes a slight cough, coughing up a lot of phlegm Pre-visit Screening: Immunizations: up to date Colonoscopy: is up to date Mammogram: is up to date Asthma Action Test/Plan: NA PHQ9: NA GAD7: NA Questioned patient about current smoking habits Pt. quit smoking some time ago. Ok to leave detailed message on voice mail for today's visit only Yes, phone # [phone] documented in this encounter Plan of Treatment Not on filedocumented as of this encounter Visit Diagnoses Diagnosis Acute sinusitis with symptoms > 10 days - Primary Acute sinusitis, unspecified documented in this encounter Care Teams Non Destructive Tester Relationship Specialty Start Date End Date Liudmila David MD PCP - General Family Practice 02/12/14 1 12/06/19 Liudmila David MD Assigned PCP 10/12/15 documented as of this encounter
--- OUTSIDE RECORDS SUMMARY | 2022-08-18 09:28 | XMS_ITS | Encounter Summary ---
:1945 Author Organization [facility] Address [address] [place] [address]. [place] [address] Care Team Providers Name Role Phone Liudmila David MD Primary Care Provider Unavailable Liudmila David MD Unavailable Unavailable Reason for Visit Auth/Cert Specialty Diagnoses / Procedures Referred By Contact Refer red To Contact Surgery Diagnoses RIGHT KIDNEY STONES [facility] Periop Services Procedures LITHOTRIPSY, EXTRACORPOREAL SHOCK WAVE (ESWL), WITH CYSTOSCOPY AND URETERAL STENT INSERTION [address] [place] [address] Phone: Referral ID Status Reason Start Date Expiration Date Visits Requ ested Visits Authorized [id number] 1 1 Encounter Details Date Type Department Care Team Description 03/28/2019 Hospital Encounter [facility] Rain Phipps [facility] Phase II MD Jared hypertension, benign [address] [facility] [place] [facility] (Primary Dx) [place] [address] UROLOGY [phone] [address] [facility] [place] [address] Social History Tobacco Use Types Packs/Day Years Used Date Smoking Tobacco: Former Cigarettes 0.5 15 Quit : 11/07/1995 Smokeless Tobacco: Never Alcohol Use Standard Drinks/Week Comments Yes 0 (1 standard drink = 0.6 oz pure alcoho l) rarely Sex Assigned at Date Recorded Female 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 Fever greater than [...] about your procedure, call Dr. Phipps at [phone] documented in this encounter Medications at Time [...] drained, we repositioned her supine and using [employer] shock wave lithotripter to deliver 1800 shock [...] in the clinic. JARED PHIPPS MD MT: LJ Name: SHAHNAZ GLASGOW Account: [id number] : 1945 Procedure Date: 03/28/2019 Document: [id number] Brief Op Note - Jared Phipps MD - 03/28/2019 10:29 AM CDT [facility] Brief Operative Note Pre-operative diagnosis: [...] URETERAL STENT INSERTION Case Notes IMPLANT REVIEWED [facility] O [facility] ENTERED [facility] 03/28 Special Needs CALLED RIGOBERTO AT [facility] TO SCHEDULE BLANK 03/05 documented in this encounter Visit Diagnoses Diagnosis Essential hypertension, benign - Primary documented in this encounter Administered Medications Inactive Administered [...] mg/kg/day not to exceed 4 grams, Post-procedure documented in this encounter Active and Recently Administered Medications Times are shown in CDT. Scheduled Medication Order 03/26/2019 03/27/2019 03/28/2019 ciprofloxacin (CIPRO) infusion 400 mg (COMPLETED) 1041 (Handoff - Provider: Yesy Hugo, BETO)1046 (Given - Provider: Joann Mandel APRN INSTRUMENT DESIGNER) 400 mg, Intravenous, PRE-OP/PRE-PROCEDUR E, Starting Tue03/28/19 [...] 1307 documented in this encounter Care Teams Director Of Software Development Relationship Specialty Start Date End Date Liudmila David MD PCP - General Family Practice 02/12/14 1 12/06/19 Liudmila David MD Assigned PCP 10/12/15 documented as of this encounter
--- OUTSIDE RECORDS SUMMARY | 2022-08-18 09:28 | XMS_ITS | Encounter Summary ---
:1945 Author Organization [facility] Address [address] [place] [address]. [place] [address] Care Team Providers Name Role Phone Liudmila David MD Primary Care Provider Unavailable Liudmila David MD Unavailable Unavailable Reason for Visit Auth/Cert Specialty Diagnoses / Procedures Referred By Contact Refer red To Contact Surgery Diagnoses RIGHT KIDNEY STONES Sh Periop Services Procedures LITHOTRIPSY, EXTRACORPOREAL SHOCK WAVE (ESWL), WITH CYSTOSCOPY AND URETERAL STENT INSERTION [address] [place] [phone] Phone: Referral ID Status Reason Start Date Expiration Date Visits Requ ested Visits Authorized [id number] 1 1 Encounter Details Date Type Department Care Team Description 03/28/2019 Anesthesia Event [facility] Latha Madrigal MD [facility] [address] [place] [address] [id number] [facility] Joann Mandel, PLUMBING CONTRACTOR ADVERTISING COPYWRITER [address] [id number] Services [address] [place] [id number] Anesthesia Record Procedure Summary Procedure Name Responsible Anesthesia Start Anesthesia Stop Anesthesiologist Time Time RIGHT LITHOTRIPSY, Momo Madrigal MD 03/28/19 1039 9 1155 EXTRACORPOREAL SHOCK WAVE (ESWL), WITH CYSTOSCOPY AND RIGHT URETERAL STENT INSERTION (Bilateral: Ureter) Events Date Time Event Comment 03/28/2019 1006 1039 An Start 1039 An Start Data 1042 MD Present 1043 An Induction 1044 An LMA 1050 AN INCISION 1108 MD Present 1144 MD Present 1148 LMA Removed 1151 an stop data 1155 An Stop Electronically s igned by Joann Mandel on March 28, 2019 11:55 A M Name Total dexamethasone 4mg/mL 4 mg fentaNYL (SUBLIMAZE) injection 100 mcg lidocaine 2% 100 mg ondansetron 2mg/mL 4 mg propofol (DIPRIVAN) injection 10 mg/mL vial 200 mg propofol infusion (mcg/kg/min) 738.58 mg ciprofloxacin (CIPRO) infusion 400 mg 400 mg LR 900 mL Agents Name NO HELIOX O2 N2O Air Exp Sevoflurane Exp Isoflurane Exp Desflurane Exp N2O Ins Sevoflurane Ins Isoflurane Ins Desflurane O2 Auxiliary Blood No blood administrations on file. Lines, Drains, and Airways Type Details Placement Removal Peripheral IV 07/03/12; 0916; 22 G; 07/03/12 0916 by Right; Median cubital Teresa Gomes, vein (antecubital RN fossa); Chlorhexidine; Tolerated well; iv sedation Incision/Surgical Site 07/31/14; 1335; Abdomen 07/31/14 1335 by Marge Gonzalez RN Incision/Surgical Site 05/02/15; Abdomen 05/02/15 0000 by Griselda Gutierrez RN Peripheral IV 03/28/19; 1025; 20 G; 03/28/19 1025 by 03/28/19 1347 by Left; Hand; Yesy Hugo Jenn ifer J, Chlorhexidine; Miranda RN RN Injectable Retired Non-Surgical 03/28/19; 1044; Not 03/28/19 1044 by 1148 by Airway attempted (Joann Larsen Krist ina Airway); Intravenous; WALTER Samuels ADVERTISING COPYWRITER WALTER Samuels ADVERTISING COPYWRITER Not performed; 4; laryngeal mask airway; center of mouth; Equal, clear and bilateral; ADVERTISING COPYWRITER; TD; Spontaneous ventilation, Adequate tidal volume, Follows commands, Monitor Technician strength adequate, Head lift adequate, Transported with oxygen, Purposeful movement documented in this encounter Social History Tobacco Use Types Packs/Day Years Used Date Smoking Tobacco: Former Cigarettes 0.5 15 Quit : 11/07/1995 Smokeless Tobacco: Never Alcohol Use Standard Drinks/Week Comments Yes 0 (1 standard drink = 0.6 oz pure alcoho l) rarely Sex Assigned at Date Recorded Female 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 Anesthesia Type: General, LMA Note: Anesthesia Post Evaluation Patient location during evaluation: PACU Patient participation: Able to fully participate in evaluation Level of consciousness: awake and alert Pain management: adequate Airway patency: patent Cardiovascular status: acceptable Respiratory status: acceptable and unassisted Hydration status: acceptable PONV: none Last vitals: Vitals: 03/28/19 1200 03/28/19 1215 03/28/19 1230 BP: 117/62 123/68 134/63 Pulse: 64 66 66 Resp: 15 15 12 Temp: 35.8 ??C (96.4 ??F) 35.8 ??C (96.4 ??F) 35.8 ??C (96.4 ??F) SpO2: 99% 95% 95% Electronically Signed By: Momo Madrigal MD March 28, 2019 12:46 PM Anesthesia Preprocedure Evaluation - Momo Madrigal MD - 03/28/2019 10:04 AM CDT Anesthesia Pre-Procedure Evaluation Patient: Shahnaz Phelps : 1945 Preoperative Diagnosis: RIGHT KIDNEY STONES Procedure(s): RIGHT LITHOTRIPSY, EXTRACORPOREAL SHOCK WAVE (ESWL), WITH CYSTOSCOPY AND RIGHT URETERAL STENT INSERTION Past Medical History: Diagnosis Date ??? Allergic rhinitis due to pollen ??? 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 Hypertension ??? Kidney stones ??? 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 Malignant neoplasm of ascending colon (H) 12/27/2018 ??? Need for prophylactic hormone replacement therapy [...] , . . (-) sleep apnea Neurologic: - neg neurologic ROS Cardiovascular: (+) hypertension----. : . . . :. . METS/Exercise Tolerance: 3 - Able to walk 1-2 blocks without stopping Hematologic: Musculoskeletal: (+) arthritis, - GI/Hepatic: (+) Other GI/Hepatic Diverticulosis; (-) GERD Renal/Genitourinary: (+) Nephrolithiasis , (-) renal disease Endo: (+) Obesity, . Psychiatric: Infectious Disease: Malignancy: (+) Malignancy History of Other Other CA Carcinoid tumor; skin cancer; status post Other: Physical Exam Normal systems: cardiovascular and pulmonary Airway Mallampati: II TM distance: >3 FB Neck ROM: full Dental (+) implants Cardiovascular Pulmonary Lab Results Component Value Date WBC 6.6 03/19/2019 HGB 13.0 03/19/2019 HCT 40.3 03/19/2019 PLT 254 03/19/2019 NA 144.3 03/19/2019 POTASSIUM 4.16 03/19/2019 CHLORIDE 104.4 03/19/2019 CO2 30.8 03/19/2019 BUN 25 03/19/2019 CR 0.87 03/19/2019 GLC 101 (A) 03/19/2019 CORNELIUS 9.9 03/19/2019 ALBUMIN 4.6 12/09/2014 PROTTOTAL 6.9 12/09/2014 ALT 22 12/09/2014 AST 22 12/09/2014 ALKPHOS 91 12/09/2014 BILITOTAL 0.6 12/09/2014 Preop Vitals BP Readings from Last 3 Encounters: 03/28/19 140/65 03/19/19 120/74 02/07/19 130/72 Pulse Readings from Last 3 Encounters: 03/19/19 68 02/07/19 78 12/27/18 115 Resp Readings from Last 3 Encounters: 03/28/19 18 12/27/18 18 10/25/18 19 SpO2 Readings from Last 3 Encounters: 03/28/19 96% 03/19/19 96% 02/07/19 97% Temp Readings from Last 1 Encounters: 03/28/19 36.4 ??C (97.6 ??F) (Oral) Ht Readings from Last 1 Encounters: 03/28/19 1.676 m (5' 6) Wt Readings from Last 1 Encounters: 03/28/19 95.3 kg (210 lb) Estimated body mass index is 33.89 kg/m?? as calculated from the following: Height as of this encounter: 1.676 m (5' 6). Weight as of this encounter: 95.3 kg (210 lb). Anesthesia Plan History & Physical Review History and physical reviewed and following examination; no interval change. ASA Status: 2 . NPO Status: > 8 hours Plan for General and LMA with Intravenous and Propofol induction. Maintenance will be TIVA. PONV prophylaxis: Ondansetron (or other 5HT-3) and Dexamethasone or Solumedrol Postoperative Care Postoperative pain management: Multi-modal analgesia. Consents Anesthetic plan, risks, benefits and alternatives discussed with: Patient.. Momo Madrigal MD documented in this encounter Miscellaneous Notes Anesthesia Care Transfer Note - Joann Mandel APRN CRNA - 03/28/2019 11:54 AM CDT Patient: Shahnaz Guevaraofield Procedure(s): RIGHT LITHOTRIPSY, EXTRACORPOREAL SHOCK WAVE (ESWL), WITH CYSTOSCOPY AND RIGHT URETERAL STENT INSERTION Diagnosis: RIGHT KIDNEY STONES Diagnosis Additional Information: No value filed. Anesthesia Type: General, LMA Note: Airway :Face Mask Patient transferred to:PACU Comments: Anesthesia Care Note Patient: Shahnaz Phelps Transferred to: PACU Patient vital signs: Stable Airway: FM Monitors placed. VSS. PIV patent. No change in dentition. Report given to RN. Lisa Mandel CRNA 03/28/2019 Handoff Report: Identifed the Patient, Identified the Reponsible Provider, Reviewed the pertinent medical history, Discussed the surgical course, Reviewed Intra-OP anesthesia mangement and issues during anesthesia, Set expectations for post-procedure period and Allowed opportunity for questions and acknowledgement of understanding Vitals: (Last set prior to Anesthesia Care Transfer) RAMIREZ VITALS 03/28/2019 1121 - 03/28/2019 1154 03/28/2019 Resp Rate (set): 10 Electronically Signed By: Joann Mandel APRN CRNA March 28, 2019 11:54 AM documented in this encounter Plan of Treatment Not on filedocumented as of this encounter Visit Diagnoses Not on filedocumented in this encounter Administered Medications Inactive Administered Medications - up to 3 most recent administrations Medication Order MAR Action Action Date Dose Rate Site ciprofloxacin (CIPRO) infusion Given 03/28/2019 10:46 AM CDT 400 mg 400 mg Routine, 400 mg, Intravenous, PRE-OP/PRE-PROCEDURE, Starting on Tue03/28/19 at 0952, For 1 dose, Irritant., Indications: Perioperative Pharmacoprophylaxis, Pre-procedure dexamethasone (DECADRON) injection Given 03/28/2019 10:46 AM CDT 4 mg PRN, Administer over 1 Minutes, Starting on Tue03/28/19 at 1046, Anesthesia Intra-op fentaNYL (PF) (SUBLIMAZE) injection Given 03/28/2019 10:50 AM CDT 50 mcg PRN, Administer over 3-5 Minutes, Starting on Tue03/28/19 at 1040, Anesthesia Intra-op Given 03/28/2019 10:40 AM CDT 50 mcg lactated ringers infusion New Bag 03/28/2019 10:39 AM CDT Intravenous, CONTINUOUS PRN, Anesthesia Intra-op, Starting on Tue03/28/19 at 1039, Until Tue03/28/19 at 1155 lidocaine 2% injection (MDV) Given 03/28/2019 10:43 AM CDT 100 mg PRN, Starting on Tue03/28/19 at 1043, Anesthesia Intra-op ondansetron (ZOFRAN) injection Given 03/28/2019 10:47 AM CDT 4 mg PRN, Administer over 2-5 Minutes, Starting on Tue03/28/19 at 1047, Anesthesia Intra-op propofol (DIPRIVAN) infusion Rate/Dose 03/28/2019 100 mcg/kg/min 57.2 mL/hr Intravenous, CONTINUOUS PRN, Change 11:31 AM CDT Starting on Tue03/28/19 at 1043, Anesthesia Intra-op Rate/Dose Change 03/28/2019 11:05 AM CDT 125 mcg/kg/min 71.5 mL/hr Rate/Dose Change 03/28/2019 11:01 AM CDT 100 mcg/kg/min 57.2 mL/hr propofol (DIPRIVAN) injection 10 mg/mL v ial Given 03/28/2019 10:43 AM CDT 200 mg PRN, Starting on Tue03/28/19 at 1043, Anesthesia Intra-op documented in this encounter Care Teams Field Administrative Assistant Relationship Specialty Start Date End Date Liudmila David MD PCP - General Family Practice 02/12/14 1 12/06/19 Liudmila David MD Assigned PCP 10/12/15 documented as of this encounter
--- OUTSIDE RECORDS SUMMARY | 2022-08-18 09:28 | XMS_ITS | Encounter Summary ---
:1945 Author Organization [facility] Address [address] [place] [address]. [place] [address] Care Team Providers Name Role Phone Liudmila David MD Primary Care Provider Unavailable Liudmila David MD Unavailable Unavailable Reason for Visit Reason Onset Date Comments Forms 12/26/2019 [facility] Encounter Details Date Type Department Care Team Description 12/26/2019 Telephone [facility] Liudmila David, For ms (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
--- OUTSIDE RECORDS SUMMARY | 2022-08-18 09:28 | XMS_ITS | Encounter Summary ---
:1945 Author Organization [facility] Address [address] [place] [address] Care Team Providers Name Role Phone Liudmila David MD Primary Care Provider Unavailable Liudmila David MD Unavailable Unavailable Reason for Visit Reason Comments Physical fasting no pap needed Encounter Details Date Type Department Care Team Description 02/07/2019 Office Visit [facility] Liudmila David history and physical examination of adult (Primary Dx); Physicians MD En Abnormal glucose; [address] Essential hypertension, mark gn [address] [place] [address] Social History Tobacco Use Types Packs/Day Years Used Date Smoking Tobacco: Former Cigarettes 0.5 15 Quit : 11/07/1995 Smokeless Tobacco: Never Alcohol Use Standard Drinks/Week Comments Yes 0 (1 standard drink = 0.6 oz pure alcoho l) Once per week Sex Assigned at Date Recorded Female 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 documented as of this encounter Last Filed Vital Signs Vital Sign Reading Time Taken Comments Blood Pressure 130/72 02/07/2019 9:04 AM CDT Pulse 78 02/07/2019 9:04 AM CDT Temperature 36.8 ??C (98.3 ??F) 02/07/2019 9:04 AM CDT Respiratory Rate - - Oxygen Saturation 97% 02/07/2019 9:04 AM CDT Inhaled Oxygen Concentration - - Weight 97.7 kg (215 lb 6.4 oz) 02/07/2019 9:04 AM CDT Height 168.9 cm (5' 6.5) 02/07/2019 9:04 AM CDT Body Mass Index 34.25 02/07/2019 9:04 AM CDT documented in this encounter Progress Notes Liudmila David MD - 02/07/2019 9:00 AM CDT SUBJECTIVE: Shahnaz Phelps is a 73 year old female who presents for Preventive Visit. Are you in the first 12 months of your Medicare Part B coverage? No Health Care Maintenance Zoster vaccine encouraged Specialists involved in her care: Malt Loader Vein specialist Physical Health: ?? In general, how would you rate your overall physical health? Fair (varicose veins-) ?? Outside of work, how many days during the week do you exercise? none ?? Outside of work, approximately how many minutes a day do you exercise?not applicable ?? If you drink alcohol do you typically have >3 drinks per day or >7 drinks per week? No ?? Do you usually eat at least 4 servings of fruit and vegetables a day, include whole grains & fiber and avoid regularly eating high fat or junk foods? Needs more fruits and vegetables ?? Do you have any problems taking medications regularly? No ?? Do you have any side effects from medications? none ?? Needs assistance for the following daily activities: no assistance needed ?? Which of the following safety concerns are present in your home? none identified ?? Hearing impairment: No ?? In the past 6 months, have you been bothered by leaking of urine? Only with coughing Mental Health: ?? In general, how would you rate your overall mental or emotional health? excellent PHQ-2 Score: 0 Do you feel safe in your environment? Yes Do you have a Health Care Directive? Yes: Advance Directive has been received and scanned. Additional concerns to address? yes Refill of blood pressure medications- No recorded blood pressures to review She denies side effects of her medication. Will be seeing Orthopedic Surgeon in [place]- history of osteoarthriits of her knees, has had previous cortisone and synvisc injections Fall risk: Fallen 2 or more times in the past year?: No Any fall with injury in the past year?: No Cognitive Screenin) Repeat 3 items (Leader, Season, Table) 2) Clock draw: NORMAL 3) 3 item recall: Recalls 3 objects Results: 3 items recalled: COGNITIVE IMPAIRMENT LESS LIKELY Mini-CogTM Copyright S Kemal. Licensed by the author for use in [facility]; reprintedwith permission (merari@[facility]). All rights reserved. Do you have sleep apnea, excessive snoring or daytime drowsiness?: no Reviewed and updated as needed this visit by clinical staff Reviewed and updated as needed this visit by Provider Social History Tobacco Use ??? Smoking status: Former Smoker Packs/day: 0.50 Years: 15.00 Pack years: 7.50 Last attempt to quit: 11/07/1995 Years since quittin.2 ??? Smokeless tobacco: Never Used Substance Use Topics ??? Alcohol use: Yes Alcohol/week: 0.0 oz Comment: Once per week Current providers sharing in care for this patient include: Patient Care Team: Liudmila Daivd MD as PCP - General (Family Practice) Liudmila David MD as Assigned PCP The following health maintenance items are reviewed in Epic and correct as of today: Health Maintenance Topic Date Due ??? ZOSTER IMMUNIZATION (1 of 2) 1995 ??? MEDICARE ANNUAL WELLNESS VISIT 02/13/2019 ??? PHQ-2 Q1 YR 02/13/2019 ??? FALL RISK ASSESSMENT 04/06/2019 ??? MAMMO Q1 YR 01/25/2020 ??? ADVANCE DIRECTIVE PLANNING Q5 YRS 02/17/2021 ??? DTAP/TDAP/TD IMMUNIZATION (4 - Td) 03/29/2021 ??? COLONOSCOPY Q3 YR 10/25/2021 ??? LIPID SCREEN Q5 YR FEMALE (SYSTEM ASSIGNED) 02/10/2022 ??? DEXA SCAN SCREENING (SYSTEM ASSIGNED) Completed ??? INFLUENZA VACCINE Completed ??? HEPATITIS C SCREENING Completed ??? IPV IMMUNIZATION Aged Out ??? MENINGITIS IMMUNIZATION Aged Out BP Readings from Last 3 Encounters: 02/07/19 130/72 12/27/18 128/70 10/25/18 107/65 Wt Readings from Last 3 Encounters: 02/07/19 97.7 kg (215 lb 6.4 oz) 12/27/18 95.3 kg (210 lb) 10/25/18 98 kg (216 lb) Patient Active Problem List Diagnosis ??? History of colonic polyps ??? Diverticulosis of large intestine ??? Osteoarthritis ??? 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 Obesity ??? Essential hypertension, benign ??? ACP (advance care planning) ??? Calculus of kidney ??? Health Longterm ??? History of malignant carcinoid tumor ??? Abnormal glucose ??? Venous stasis dermatitis of both lower extremities ??? Malignant neoplasm of ascending colon (H) Past Surgical History: Procedure Laterality Date ??? [...] Last attempt to quit: 11/07/1995 Years since quittin.2 ??? Smokeless tobacco: Never Used Substance Use Topics ??? Alcohol use: Yes Alcohol/week: 0.0 oz Comment: Once per week Family History Problem Relation Age of Onset ??? Cancer - colorectal Mother ??? Cancer Mother 91 endometrial ??? Colon Cancer Mother ??? Cancer - colorectal Father ??? Colon Cancer Father ??? Colon Cancer Brother ??? Cancer Brother colon ??? Breast Cancer Paternal Grandmother Current Outpatient Medications Medication Sig Dispense Refill [...] topically 2 times daily 30 g 0 Mammogram Screening: Mammogram Screening: Patient over age 50, mutual decision to screen reflected in health maintenance. ROS: Constitutional, HEENT, cardiovascular, pulmonary, GI, , musculoskeletal, neuro, skin, endocrine and psych systems are negative, except as otherwise noted. Varicose veins and mild lower extremity edema OBJECTIVE: BP 130/72 (BP Location: Left arm, Patient Position: Sitting, Cuff Size: Adult Large) Pulse 78 Temp 98.3 ??F (36.8 ??C) (Oral) Ht 1.689 m (5' 6.5) Wt 97.7 kg (215 lb 6.4 oz) SpO2 97% BMI 34.25 kg/m?? Estimated body mass index is 33.39 kg/m?? as calculated from the following: Height as of 12/27/18: 1.689 m (5' 6.5). Weight as of 12/27/18: 95.3 kg (210 lb). EXAM: General appearance: Healthy Skin: Normal. No atypical appearing moles on inspection of trunk and extremities. External ears and canals clear bilaterally. TM's normal bilaterally. Nose normal without lesions or discharge. Oropharynx normal. Neck supple without palpable adenopathy. Breasts are symmetric. No dominant, discrete, fixed or suspicious masses are noted. No skin or nipple changes or axillary nodes. Regular rate and rhythm. S1 and S2 normal, no murmurs, clicks, gallops or rubs. No edema or JVD. Chest is clear; no wheezes or rales. The abdomen is soft without tenderness, guarding, mass or organomegaly. Bowel sounds are normal. No CVA tenderness or inguinal adenopathy noted. Pelvic: deferred Rectal exam: deferred Extremities: varicose veins lower extremities Diagnostic Test Results: Results for orders placed or performed in visit on 02/07/19 (from the past 24 hour(s)) Hemoglobin A1c (BFP) Result Value Ref Range Hemoglobin A1C 5.5 4.0 - 7 % ASSESSMENT / PLAN: (Z00.00) Routine history and physical examination of adult (primary encounter diagnosis) Comment: Plan: ANNUAL WELLNESS VISIT (AWV), INITIAL (MEDICARE) (R73.09) Abnormal glucose Comment: Normal Hemoglobin A1C- lifestyle of regular exercise encouraged Plan: Hemoglobin A1c (BFP), VENOUS COLLECTION (I10) Essential hypertension, benign Comment: at goal, refill of current medication Plan: VENOUS COLLECTION, hydrochlorothiazide (HYDRODIURIL) 25 MG tablet, losartan (COZAAR) 100 MG tablet, POTASSIUM ([facility]) End of Life Planning: Patient currently has an advanced directive: Yes. I am unable tor review today in office COUNSELING: Reviewed preventive health counseling, as reflected in patient instructions Special attention given to: Regular exercise Healthy diet/nutrition Fall risk prevention Osteoporosis Prevention/Bone Health BP Readings from Last 1 Encounters: 12/27/18 128/70 Estimated body mass index is 33.39 kg/m?? as calculated from the following: Height as of 12/27/18: 1.689 m (5' 6.5). Weight as of 12/27/18: 95.3 kg (210 lb). Weight management plan: Discussed healthy diet and exercise guidelines reports that she quit smoking about 23 years ago. She has a 7.50 pack-year smoking history. she hasnever used smokeless tobacco. Appropriate preventive services were discussed with this patient, including applicable screening as appropriate for cardiovascular disease, diabetes, osteopenia/osteoporosis, and glaucoma. As appropriate for age/gender, discussed screening for colorectal cancer, prostate cancer, breast cancer, and cervical cancer. Checklist reviewing preventive services available has been given to the patient. Reviewed patients plan of care and provided an AVS. The Basic Care Plan (routine screening as documented in Health Maintenance) for Shahnaz meets the Care Plan requirement. This Care Plan has been established and reviewed with the Patient. Counseling Resources: ATP IV Guidelines Pooled Cohorts Equation Calculator Breast Cancer Risk Calculator FRAX Risk Assessment ICSI Preventive Guidelines Dietary Guidelines for Americans, 2009 [employer]'s MyPlate ASA Prophylaxis Lung CA Screening Liudmila David MD [facility] documented in this encounter Nursing Notes Eneida Marina, BERTRAND - 02/07/2019 9:00 AM CDT Jina is here for CPX no pap needed Patient is here for a full physical exam. Pre-Visit Screening : Immunizations : up to date Colon Screening : is up to date Mammogram: UTD Asthma Action Test/Plan : NA PHQ9 : None GAD7 : None Patient's BMI Body mass index is 34.25 kg/m??. Questioned patient about current smoking habits. Pt. quit smoking some time ago. OK to leave a detailed voice message regarding today's visit Yes, phone # [phone] ETOH screening: Questions: 1-How often do you have a drink containing alcohol? 3 times per month(s) 2-How many drinks containing alcohol do you have on a typical day when you are Drinking? 3 3- How often do you have 5 or more drinks on one occasion? Never documented in this encounter Plan of Treatment Not on filedocumented as of this encounter Procedures Procedure Name Priority Date/Time Associated Comments Diagnosis POTASSIUM Routine 02/07/2019 9:53 AM Essential Results f or this CDT hypertension, procedure are in benign the results section. HEMOGLOBIN A1C Routine 02/07/2019 9:41 AM Abnormal glucose Res ults for this CDT procedure are i n the results section. HC VENOUS COLLECTION Routine 02/07/2019 9:04 AM Abnormal glucose CDT Essential hypertension, benign documented in this encounter Results POTASSIUM ([facility]) (02/07/2019 9:53 AM CDT) P athologist Signature Potassium 4.1 3.5 - 5.3 [facility] mmol/L [facility] Specimen Anatomical Collection Method Collection Time Receive d Time (Source) Location / / Volume Laterality Blood specimen 02/07/2019 9:53 AM 019 4:12 (specimen) CDT AM CDT Resulting Agency Comment Performing Organization Information: ? CB ? [facility] ? [address] [place], [place] [address] ? Juaniot Hardy M.D. Liudmila David MD LAB - BLOOD ORDERABLES Performing Organization Address City/State/[facility] Phon e Number [facility] [address] [place], [place] [address] [facility] [address] [place], [place] [address] Hemoglobin A1c (BFP) (02/07/2019 9:41 AM CDT) P athologist Signature Hemoglobin A1C 5.5 4.0 - 7 % [facility] INTERNAL Specimen (Source) Anatomical Collection Method Collection Time Re ceived Time Location / / Volume Laterality Blood specimen 02/07/2019 9:41 AM (specimen) CDT Liudmila David MD LAB - BLOOD ORDERABLES Performing Organization Address City/State/ZIP [facility] Phon e Number [facility] INTERNAL documented in this encounter Visit Diagnoses Diagnosis Routine history and physical examination of adult - Primary Routine general medical examination at a health care facility Abnormal glucose Essential hypertension, benign documented in this encounter Care Teams Voice Professor Relationship Specialty Start Date End Date Liudmila David MD PCP - General Family Practice 02/12/14 1 12/06/19 Liudmila David MD Assigned PCP 10/12/15 documented as of this encounter
--- OUTSIDE RECORDS SUMMARY | 2022-08-18 09:28 | XMS_ITS | Encounter Summary ---
:1945 Author Organization [facility] Address [address] [place] [address] Care Team Providers Name Role Phone Liudmila David MD Primary Care Provider Unavailable Liudmila David MD Unavailable Unavailable Reason for Visit Reason Comments RECHECK recheck sinus infection, fin ished Zpack, sore throat very raw Encounter Details Date Type Department Care Team Description 06/09/2019 Office Visit [place] Bruna Sexton Upper respiratory Physicians SHAN [place] tract infection, [address], unspecified type [address] (Primary Dx) [place] [address] [phone] Social History Tobacco Use Types Packs/Day Years Used Date Smoking Tobacco: Former Cigarettes 0.5 15 Quit : 11/07/1995 Smokeless Tobacco: Never Alcohol Use Standard Drinks/Week Comments Yes 0 (1 standard drink = 0.6 oz pure alcoho l) rarely Sex Assigned at Date Recorded Female 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 documented as of this encounter Last Filed Vital Signs Vital Sign Reading Time Taken Comments Blood Pressure 118/74 06/09/2019 10:18 AM CDT Pulse 74 06/09/2019 10:18 AM CDT Temperature 36.6 ??C (97.9 ??F) 06/09/2019 10:18 AM CDT Respiratory Rate - - Oxygen Saturation 97% 06/09/2019 10:18 AM CDT Inhaled Oxygen Concentration - - Weight 96.9 kg (213 lb 9.6 oz) 06/09/2019 10:18 AM CDT Height 167.6 cm (5' 6) 06/09/2019 10:18 AM CDT Body Mass Index 34.48 06/09/2019 10:18 AM CDT documented in this encounter Progress Notes Bruna Meade PA - 06/09/2019 10:15 AM CDT SUBJECTIVE: Shahnaz Phelps is a 73 year old female who presents to clinic today for the following health issues: Shahnaz is here today for follow up on URI sx. 2.5-3 weeks ago started with sore throat, lost voice, sinus headache. No nasal drainage. Productive cough. Was seen by Dr. David and put on Zpack. Last dose yesterday. Continues to have tickle in throat and mild cough. Camping for 2 weeks and wants to ensure she won't be sick on her trip. Denies CP, SOB, fevers. BP Readings from Last 3 Encounters: 06/09/19 118/74 06/04/19 126/82 03/28/19 (!) 117/93 Wt Readings from Last 3 Encounters: 06/09/19 96.9 kg (213 lb 9.6 oz) 06/04/19 95.7 kg (211 lb) 03/28/19 95.3 kg (210 lb) Patient Active Problem List Diagnosis ??? History of colonic polyps ??? Diverticulosis of large intestine ??? Osteoarthritis ??? 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 Obesity ??? Essential hypertension, benign ??? ACP (advance care planning) ??? Calculus of kidney ??? Health Fdc ??? History of malignant carcinoid tumor ??? [...] Last attempt to quit: 11/07/1995 Years since quittin.6 ??? Smokeless tobacco: Never Used Substance Use Topics ??? Alcohol use: Yes Alcohol/week: 0.0 oz Comment: rarely Family History Problem Relation Age of Onset [...] topically 2 times daily 30 g 0 Allergies Allergen Reactions ??? Amoxicillin Itching rash ??? Imidazole Antifungals hives ??? Penicillins hives OBJECTIVE: BP 118/74 (BP Location: Left arm, Patient Position: Sitting, Cuff Size: Adult Large) Pulse 74 Temp 97.9 ??F (36.6 ??C) (Oral) Ht 1.676 m (5' 6) Wt 96.9 kg (213 lb 9.6 oz) SpO2 97% BMI 34.48 kg/m?? Body mass index is 34.48 kg/m??. GENERAL: healthy, alert and no distress EYES:Lids and Conjunctival normal, no discharge present bilaterally EARS: Right: CANAL and TM is normal: no effusions, no erythema, and normal landmarks Left: CANAL and TM is normal: no effusions, no erythema, and normal landmarks NOSE: normal OROPHARYNX: normal, no tonsillar hypertrophy and no exudates present NECK: normal, supple and no adenopathy HEART: regular rate and rhythm; no murmurs, clicks, or gallops LUNGS: CTA bilaterally SKIN:Warm, Dry and No Rash ASSESSMENT/PLAN: P: ICD-10-CM 1. Upper respiratory tract infection, unspecified type J06.9 Most likely viral Expect resolution of sx in the next 2 weeks. Symptomatic cares advised including Increase fluids, rest, acetominophen or ibuprofen prn if not contraindicated. If applicable advised the following: Sore throat: sugar free throat lozenges, sprays, Chloraseptic lozenges, salt water gargles Cough: sugar free cough drops, honey, Delsym bid. The patient is to RTC prn if these symptoms worsen or fail to improve as anticipated. Bruna Meade PA-C 06/09/2019 documented in this encounter Nursing Notes Sidra Cobian CMA - 06/09/2019 10:15 AM CDT Jina is here today to recheck her sinus infection and discuss her sore throat. Pre-visit Screening: Immunizations: up to date Colonoscopy: is up to date Mammogram: is up to date Asthma Action Test/Plan: NA PHQ9: NA GAD7: NA Questioned patient about current smoking habits Pt. has never smoked. Ok to leave detailed message on voice mail for today's visit only Yes, phone # [phone] documented in this encounter Plan of Treatment Not on filedocumented as of this encounter Visit Diagnoses Diagnosis Upper respiratory tract infection, unspe cified type - Primary documented in this encounter Care Teams Manager Health Relationship Specialty Start Date End Date Liudmila David MD PCP - General Family Practice 02/12/14 1 12/06/19 Liudmila David MD Assigned PCP 10/12/15 documented as of this encounter
--- OUTSIDE RECORDS SUMMARY | 2022-08-18 09:28 | XMS_ITS | Encounter Summary ---
:1945 Author Organization [facility] Address [address] [place] [address] Care Team Providers Name Role Phone Liudmila David MD Primary Care Provider Unavailable Liudmila David MD Unavailable Unavailable Reason for Visit Diagnostic Imaging XR - Closed Specialty Diagnoses / Procedures Referred By Contact Refer red To Contact Diagnoses Cough Edgar Cunningham MD Procedures XR Chest [id number] [place] [address] Referral ID Status Reason Start Date Expiration Date Visits Requ ested Visits Authorized [id number] Closed 12/27/2018 12/27/2019 1 1 Encounter Details Date Type Department Care Team Description 12/27/[address] 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 documented in this encounter Results XR Chest 2 Views (12/27/2018 2:27 PM CUTTER GAS) Anatomical Region Laterality Modality Chest Computed Radiography Specimen (Source) Anatomical Location Collection Method / Collectio n Time Received Time / Laterality Volume Impressions 12/27/2018 2:36 PM CUTTER GAS IMPRESSION: Patchy infiltrate left lung base. ZHOU LANDEROS MD Narrative 12/27/2018 2:36 PM CUTTER GAS XR CHEST 2 VW 12/27/2018 2:35 PM HISTORY: Bilateral bases coarse breath s ounds; Cough Procedure Note Zhou Landeros MD - 12/27/2018Formatt ing of this note might be different from the original. XR CHEST 2 VW 12/27/2018 2:35 PM HISTORY: Bilateral bases coarse breath s ounds; Cough IMPRESSION: Patchy infiltrate left lung base. ZHOU LANDEROS MD Edgar Ray Marisa [facility] IMG DIAGNOSTIC IMAGING ORDER NILSON documented in this encounter Visit Diagnoses Not on filedocumented in this encounter Care Teams Filter Press Supervisor Relationship Specialty Start Date End Date Liudmila David MD PCP - General Family Practice 02/12/14 1 12/06/19 Liudmila David MD Assigned PCP 10/12/15 documented as of this encounter
--- OUTSIDE RECORDS SUMMARY | 2022-08-18 09:28 | XMS_ITS | Encounter Summary ---
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
--- OUTSIDE RECORDS SUMMARY | 2022-08-18 09:28 | XMS_ITS | Encounter Summary ---
:1945 Author Organization [facility] Address [address] [place] [address] Care Team Providers Name Role Phone Liudmila David MD Primary Care Provider Unavailable Liudmila David MD Unavailable Unavailable Encounter Details Date Type Department Care Team Description 12/27/2018 Travel Social History Tobacco Use Types Packs/Day Years Used Date Smoking Tobacco: Former Cigarettes 0.5 15 Quit : 11/07/1995 Smokeless Tobacco: Never Alcohol Use Standard Drinks/Week Comments Yes 0 (1 standard drink = 0.6 oz pure alcoho l) Once per week Sex Assigned at Date Recorded Female 10/17/2018 7:14 PM RECONCILIATION SPECIALIST documented as of this encounter Plan of Treatment Not on filedocumented as of this encounter Visit Diagnoses Not on filedocumented in this encounter Care Teams Inking Machine Tender Relationship Specialty Start Date End Date Liudmila David MD PCP - General Family Practice 02/12/14 1 12/06/19 Liudmila David MD Assigned PCP 10/12/15 documented as of this encounter
--- OUTSIDE RECORDS SUMMARY | 2022-08-18 09:29 | XMS_ITS | Encounter Summary ---
:1945 Author Organization [facility] Address [address] [place] [address]. [place] [address] Care Team Providers Name Role Phone Liudmila David MD Primary Care Provider Unavailable Liudmila David MD Unavailable Unavailable Reason for Referral Consultation - Closed Specialty Diagnoses / Procedures Referred By Contact Refer red To Contact Diagnoses Acute suppurative otitis media of both ears without spontaneous rupture of tympanic membranes, recurrence not specified Liudmila David MD [facility] [address], [address] [facility] [address] [place] [address] [place] [address] Phone: Fax: Referral ID Status Reason Start Date Expiration Date Visits Requ ested Visits Authorized [id number] Closed 03/07/2017 03/07/2018 1 1 Reason for Visit Reason Comments Ear Problem Encounter Details Date Type Department Care Team Description 03/07/2017 Office Visit [facility] Liudmila David Acute suppurative Physicians MD En otitis media of both [address] ears without [address] spontaneous rupture of [place], [place] tympanic memb [place], [phone] recurrence not [phone] specified (Prim elke Dx) Social History Tobacco Use Types Packs/Day Years Used Date Smoking Tobacco: Former Cigarettes 0.5 15 Quit : 11/07/1995 Smokeless Tobacco: Never Alcohol Use Standard Drinks/Week Comments Yes 0 (1 standard drink = 0.6 oz pure alcoho l) rare - wine once in a while Sex Assigned at Date Recorded 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 Last Filed Vital Signs Vital Sign Reading Time Taken Comments Blood Pressure 134/64 03/07/2017 6:45 PM CDT Pulse 76 03/07/2017 6:45 PM CDT Temperature 36.8 ??C (98.3 ??F) 03/07/2017 6:45 PM CDT Respiratory Rate 20 03/07/2017 6:45 PM CDT Oxygen Saturation - - Inhaled Oxygen Concentration - - Weight 96.8 kg (213 lb 6.4 oz) 03/07/2017 6:45 PM CDT Height 168.9 cm (5' 6.5) 03/07/2017 6:45 PM CDT Body Mass Index 33.93 03/07/2017 6:45 PM CDT documented in this encounter Progress Notes Liudmila David MD - 03/07/2017 6:30 PM CDT SUBJECTIVE: Recheck of bilateral purulent otitis media- she is accompanied by her because she cannot hear Ceftin RX- Three pills left Most distressed that she cannot hear Still has mild ear discomfort On Tuesday, trial of afrin to see if this helped her plugged ears: no change in symptoms Mucinex: no change in symptoms OBJECTIVE: External ears and canals clear bilaterally. TM's: erythema has resolved bilaterally. Serous otitis remains- . Nose without lesions or discharge. Oropharynx normal. Neck supple without palpable adenopathy. Chest is clear Assessment Otitis media responding to antibiotics- however, distressed with hearing loss. ent referral- documented in this encounter Nursing Notes Rayna Greene CMA - 03/07/2017 6:30 PM CDT Shahnaz Landers Lenin is here for a recheck of her ears. Is having a hard time hearing. Questioned patient about current smoking habits. Pt. quit smoking some time ago. Body mass index is 25.89 kg/(m^2). PULSE regular My Chart: active CLASSIFICATION OF OVERWEIGHT AND OBESITY BY BMI Obesity Class BMI(kg/m2) Underweight < 18.5 Normal 18.5-24.9 Overweight 25.0-29.9 OBESITY I 30.0-34.9 II 35.0-39.9 EXTREME OBESITY III >40 Patient's BMI Body mass index is 33.93 kg/(m^2). http://hin.nhlbi.nih.gov/menuplanner/menu.cgi Pre-visit planning Immunizations - up to date Colonoscopy - is up to date Mammogram - is up to date Asthma - PHQ9 - JAY-7 - documented in this encounter Plan of Treatment Not on filedocumented as of this encounter Visit Diagnoses Diagnosis Acute suppurative otitis media of both e ars without spontaneous rupture of tympanic membranes, recurrence not specified - Pr imary documented in this encounter Care Teams Heater Helper Forge Relationship Specialty Start Date End Date Liudmila David MD PCP - General Family Practice 02/12/14 1 12/06/19 Liudmila David MD Assigned PCP 10/12/15 documented as of this encounter
--- OUTSIDE RECORDS SUMMARY | 2022-08-18 09:29 | XMS_ITS | Encounter Summary ---
:1945 Author Organization [facility] Address [address] [place] [address] Care Team Providers Name Role Phone Liudmila David MD Primary Care Provider Unavailable Liudmila David MD Unavailable Unavailable Reason for Visit Reason Comments Physical Pt is fasting and possible P ap. Encounter Details Date Type Department Care Team Description 02/10/2017 Office Visit [facility] Liudmila David history and physical examination of adult (Primary Dx); Prateek Gatica MD Non morbid obesity due to ex cess calories; [address] Calculus of kidney; [address] Essential hypertension, mark gn; [place], [place] Abnormal gluc ose [id number] Social History Tobacco Use Types Packs/Day Years Used Date Smoking Tobacco: Former Cigarettes 0.5 15 Quit : 11/07/1995 Smokeless Tobacco: Never Alcohol Use Standard Drinks/Week Comments Yes 0 (1 standard drink = 0.6 oz pure alcoho l) rare - wine once in a while Sex Assigned at Date Recorded 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 Last Filed Vital Signs Vital Sign Reading Time Taken Comments Blood Pressure 124/60 02/10/2017 8:55 AM CDT Pulse 70 02/10/2017 8:55 AM CDT Temperature 36.3 ??C (97.4 ??F) 02/10/2017 8:55 AM CDT Respiratory Rate - - Oxygen Saturation 98% 02/10/2017 8:55 AM CDT Inhaled Oxygen Concentration - - Weight 98.5 kg (217 lb 3.2 oz) 02/10/2017 8:55 AM CDT Height 168.9 cm (5' 6.5) 02/10/2017 8:55 AM CDT Body Mass Index 34.53 02/10/2017 8:55 AM CDT documented in this encounter Patient Instructions Patient InstructionsStLiudmila childs MD - 02/10/2017 9:00 AM CDT Lotions: shawn emeryream Two blood pressures: check twice a week for four weeks/ call me with your blood pressures two weeks and four weeks out Stay with one amlodipine - no hydrochlorothiaze- can adjust depending on your pressures documented in this encounter Progress Notes Liudmila David MD - 02/10/2017 9:00 AM CDT Chief Complaint: Shahnaz Phelps is an 71 year old woman who presents for preventive health visit. Besides routine health maintenance, she would like to discuss . Hypertension History of renal calculi- Urologist: has advised DC HCTZ for the next three months and recheck Specialists involved in her care: EMM[facility]/ [place] [facility]- carcinoid tumor Transcription Specialist: skin cancer Urologist: renal calculi Health Care Maintenance Pap smear : Normal 05/2016 Mammogram: 01/2017 Normal Colonoscopy dexa Immunizations: ? Flu vaccine Healthy Habits: Do you get at least three servings of calcium containing foods daily (dairy, green leafy vegetables,etc.)? yes Outside of work or daily activities, how many days per week do you exercise for 30 minutes or longer? No regular exercise winter months[place] during the non-winter months Have you had an eye exam in the past two years? Cataract surgery- no problems Due for eye exam Do you see a dentist twice per year? Yes- in the process of permanent implants upper incisors Clear choice- dental group PHQ-2 Over the last two weeks- Have you been bothered by little interest or pleasure in doing things? No Over the last two weeks- Have you been feeling down, depressed, or hopeless? No Social History Substance Use Topics ??? Smoking status: Former Smoker Packs/day: 0.50 Years: 15.00 Quit date: 11/07/1995 ??? Smokeless tobacco: Never Used ??? Alcohol use 0.0 oz/week 0 Standard drinks or equivalent per week Comment: rare - wine once in a while The patient does not drink >3 drinks per day nor >7 drinks per week. Reviewed orders with patient. Reviewed health maintenance and updated orders accordingly - Yes History of abnormal Pap smear: NO - age 65 - see link Cervical Cytology Screening Guidelines All Histories reviewed and updated in [facility]. ROS: C: NEGATIVE for fever, chills, change in weight I: NEGATIVE for worrisome rashes, moles or lesions Dry skin- wants a recommendation for lotion E: NEGATIVE for vision changes or irritation ENT: NEGATIVE for ear, mouth and throat problems R: NEGATIVE for significant cough or SOB B: NEGATIVE for masses, tenderness or discharge CV: NEGATIVE for chest pain, palpitations or peripheral edema GI: NEGATIVE for nausea, abdominal pain, heartburn, or change in bowel habits : NEGATIVE for unusual urinary or vaginal symptoms. No vaginal bleeding. 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 No atypical [...] Pelvic: deferred Rectal exam: deferred Extremities: varicose veins, mild edema COUNSELING: Reviewed preventive health counseling, as reflected in patient instructions Regular exercise Healthy diet/nutrition Vision screening Osteoporosis Prevention/Bone Health ATP III Guidelines ICSI Preventive Guidelines ASSESSMENT/PLAN: (Z00.00) Routine history and physical examination of adult (primary encounter diagnosis) Comment: Plan: Lipid Profile, BASIC METABOLIC PANEL ([facility]), Hemoglobin A1c (BFP), VENOUS COLLECTION, CL AFF HEMOGLOBIN (BFP), CANCELED: Hemoglobin ([facility]) (E66.09) Non morbid obesity due to excess calories Comment: BMI: Estimated body mass index is 34.53 kg/(m^2) as calculated from the following: Height as of this encounter: 1.689 m (5' 6.5). Weight as of this encounter: 98.5 kg (217 lb 3.2 oz). Weight management plan: Discussed healthy diet and exercise guidelines and patient will follow up in6 months in clinic to re-evaluate. Plan:healthy diet and regular exercise encouraged (N20.0) Calculus of kidney Comment: Plan: Three month off HCTZ (I10) Essential hypertension, benign Comment: Plan: DC HCTZ, watch salt Monitor bp and call- for now no change in amlodipine dose documented in this encounter Nursing Notes Frances Jaquez CMA - 02/10/2017 9:00 AM CDT Shahnaz is here for a fasting physical and possible Pap. Patient is here for a full physical exam and pap. Pre-Visit Screening : Immunizations : up to date Colonoscopy : is up to date Mammogram : is up to date Asthma Action Plan/Test : na PHQ9/GAD7 : na Pulse - regular Medication Reconciliation: complete @INTAKE2@ ETOH screening: Questions: 1-How often do you have a drink containing alcohol? 1 times per week(s) 2-How many drinks containing alcohol do you have on a typical day when you are Drinking? 1 3- How often do you have 5 or more drinks on one occasion? NO Have you ever: @None of the patient's responses to the CAGE screening were positive / Negative CAGE score@ Frances.BERTRAND Jaquez (AAMA) documented in this encounter Plan of Treatment Not on filedocumented as of this encounter Procedures Procedure Name Priority Date/Time Associated Diagnosis Comme nts LIPID PROFILE Routine 02/10/2017 9:55 AM Routine history and R esults for this CDT physical examination procedu re are in of adult the results Non morbid obesity section. due to excess calories BASIC METABOLIC Routine 02/10/2017 9:55 AM Routine history and Results for this PANEL CDT physical examination procedu re are in of adult the results Non morbid obesity section. due to excess calories Calculus of kidn ey Essential hypertension, be nign Abnormal glucose ZZCL AFF HEMOGLOBIN Routine 02/10/2017 9:42 AM Routine history and Results for this CDT physical examination procedu re are in of adult the results section. HEMOGLOBIN A1C Routine 02/10/2017 9:18 AM Routine history and Results for this CDT physical examination procedu re are in of adult the results Non morbid obesity section. due to excess calories Abnormal glucose HC VENOUS COLLECTION Routine 02/10/2017 9:05 AM Routine histor y and CDT physical examination of adult Non morbid obesity due to excess calories Calculus of kidn ey Essential hypertension, be nign Abnormal glucose documented in this encounter Results (ABNORMAL) BASIC METABOLIC PANEL ([facility]) (02/10/2017 9:55 AM CDT) P athologist Signature Glucose 116 (H) 65 - 99 [facility] mg/dL [facility] Comment: For someone without known diabetes, a gl ucose value between 100 and 125 mg/dL is consistent with prediabetes and should be confirmed with a follow-up test. ? Fasting reference interv al Urea Nitrogen 17 7 - 25 mg/dL [facility] Creatinine 0.73 0.60 - 0.93 mg/dL [facility] Comment: For patients >49 years of age, the refer ence limit for Creatinine is approximately 13% high er for people identified as -Stateless. GFR Estimate 83 > OR = 60 [facility] mL/min/1.73m2 EGFR 96 > OR = 60 [facility] Stateless mL/min/1.73m2 BUN/Creatinine NOT APPLICABLE 6 - 22 (calc) [facility] Ratio Sodium 142 135 - 146 mmol/L [facility] Potassium 3.9 3.5 - 5.3 mmol/L [facility] Chloride 102 98 - 110 mmol/L [facility] Carbon Dioxide 30 20 - 31 mmol/L [facility] Calcium 10.1 8.6 - 10.4 mg/dL [facility] Specimen Anatomical Collection Method Collection Time Receive d Time (Source) Location / / Volume Laterality Blood specimen 02/10/2017 9:55 AM 017 3:41 (specimen) CDT AM CDT Resulting Agency Comment Performing Organization Information: ? CB ? [facility] ? [address] [place], [place] [address] ? Juanito Hardy M.D. Liudmila David MD LAB - BLOOD ORDERABLES Performing Organization Address City/State/ZIP Code Phon e Number [facility] [address] [place], [place] [address] [facility] [address] [place], [place] [address] (ABNORMAL) Lipid Profile (02/10/2017 9:55 AM CDT) [facility] Method Time Signature Cholesterol 207 (H) 125 - 200 [facility] mg/dL [facility] HDL Cholesterol 65 > OR = 46 [facility] mg/dL [facility] Triglycerides 100 <150 [facility] mg/dL [facility] LDL Cholesterol 122 <130 [facility] Calculated mg/dL [facility] Comment: Desirable range <100 mg/dL for patients with CHD or diabetes and <70 mg/dL for diabetic suraj ents with known heart disease. Cholesterol/HDL Ratio 3.2 < OR = 5.0 (calc) [facility] Non HDL Cholesterol 142 mg/dL (calc) [facility] Comment: Target for non-HDL cholesterol is 30 mg/ dL higher than LDL cholesterol target. Specimen Anatomical Collection Method Collection Time Receive d Time (Source) Location / / Volume Laterality Blood specimen 02/10/2017 9:55 AM 017 3:41 (specimen) CDT AM CDT Resulting Agency Comment Performing Organization Information: ? CB ? [facility] ? [address] [place], [place] [address] ? Juanito Hardy M.D. Liudmila David MD LAB - BLOOD ORDERABLES Performing Organization Address City/[facility]/ZIP Code Phon e Number [facility] [address] [place], [place] [address] [facility] [address] [place], [place] [address] CL AFF HEMOGLOBIN ([facility]) (02/10/2017 9:42 AM CDT) P athologist Signature Hemoglobin 14.1 11.7 - 15.7 [facility] INTERNAL g/dL Specimen (Source) Anatomical Collection Method Collection Time Re ceived Time Location / / Volume Laterality 02/10/2017 9:42 AM CDT Liudmila David MD LABORATORY Performing Organization Address City/[facility] Code Phon e Number [facility] INTERNAL Hemoglobin A1c (BFP) (02/10/2017 9:18 AM CDT) P athologist Signature Hemoglobin A1C 5.5 4.0 - 7.0 % [facility] INTERNAL Specimen (Source) Anatomical Collection Method Collection Time Re ceived Time Location / / Volume Laterality Blood specimen 02/10/2017 9:18 AM (specimen) CDT Liudmila David MD LAB - BLOOD ORDERABLES Performing Organization Address [facility]/ZIP [facility] Phon e Number B[facility] INTERNAL documented in this encounter Visit Diagnoses Diagnosis Routine history and physical examination of adult - Primary Routine general medical examination at a [facility] care facility Non morbid obesity due to excess calorie s Calculus of kidney Essential hypertension, benign Abnormal glucose documented in this encounter Care Teams Electrical Systems Designer Relationship Specialty Start Date End Date Liudmila David MD PCP - General Family Practice 02/12/14 1 12/06/19 Liudmila David MD Assigned PCP 10/12/15 documented as of this encounter
--- OUTSIDE RECORDS SUMMARY | 2022-08-18 09:29 | XMS_ITS | Encounter Summary ---
:1945 Author Organization [facility] Address [address] [place] [address] Care Team Providers Name Role Phone Liudmila David MD Primary Care Provider Unavailable Liudmila David MD Unavailable Unavailable Reason for Visit Reason Onset Date Comments Flu 02/25/2017 Encounter Details Date Type Department Care Team Description 02/25/2017 Telephone [facility] ysicians Liudmila David MD Flu [address] [place] [address] [address] [place] [address] Social History Tobacco Use Types Packs/Day Years Used Date Smoking Tobacco: Former Cigarettes 0.5 15 Quit : 11/07/1995 Smokeless Tobacco: Never Alcohol Use Standard Drinks/Week Comments Yes 0 (1 standard drink = 0.6 oz pure alcoho l) rare - wine once in a while Sex Assigned at Date Recorded Female 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 She is treating with Fluids and Tylenol. I asked if she received a flu shot and she had not gotten one this flu season. I informed her that symptoms can last longer than she has ever experienced before because she hasn't received a flu shot. She was reassured that her symptoms were normal and asked how to continue to treat. I advised her to alternate Tylenol and Ibuprofen and that she can use OTC cough medicine. She is to call us if symptoms worsen. Jackie Harp CMA documented in this encounter Plan of Treatment Not on filedocumented as of this encounter Visit Diagnoses Not on filedocumented in this encounter Care Teams Tube Cutter Relationship Specialty Start Date End Date Liudmila David MD PCP - General Family Practice 02/12/14 1 12/06/19 Lidumila David MD Assigned PCP 10/12/15 documented as of this encounter
--- OUTSIDE RECORDS SUMMARY | 2022-08-18 09:29 | XMS_ITS | Encounter Summary ---
:1945 Author Organization [facility] Address [address] [place] [address] Care Team Providers Name Role Phone Liudmila David MD Primary Care Provider Unavailable Liudmila David MD Unavailable Unavailable Reason for Visit Reason Comments Recheck Medication Non-fasting Encounter Details Date Type Department Care Team Description 10/13/2016 Office Visit [facility] Liudmila David hypertension, benign (Primary Dx); Prateek Gatica MD Episodic tension-type headac he, not intractable; [address] Non morbid obesity due to ex cess calories [address] [place] [address] Social History Tobacco Use Types Packs/Day Years Used Date Smoking Tobacco: Former Cigarettes 0.5 15 Quit : 11/07/1995 Smokeless Tobacco: Never Alcohol Use Standard Drinks/Week Comments Yes 0 (1 standard drink = 0.6 oz pure alcoho l) rare - wine once in a while Sex Assigned at Date Recorded Female 10/17/2018 7:14 PM ARTICULATION OFFICER documented as of this encounter Last Filed Vital Signs Vital Sign Reading Time Taken Comments Blood Pressure 130/66 10/13/2016 10:52 AM ARTICULATION OFFICER Pulse 78 10/13/2016 10:52 AM ARTICULATION OFFICER Temperature 36.7 ??C (98.1 ??F) 10/13/2016 10:52 AM ARTICULATION OFFICER Respiratory Rate - - Oxygen Saturation 99% 10/13/2016 10:52 AM ARTICULATION OFFICER Inhaled Oxygen Concentration - - Weight 99.1 kg (218 lb 6.4 oz) 10/13/2016 10:52 AM ARTICULATION OFFICER Height 169.5 cm (5' 6.75) 10/13/2016 10:52 AM ARTICULATION OFFICER Body Mass Index 34.46 10/13/2016 10:52 AM ARTICULATION OFFICER documented in this encounter Progress Notes Liudmila David MD - 10/13/2016 11:43 AM CST SUBJECTIVE: Shahnaz Phelps is a 71 year old female who presents to clinic today for the following health issues: Hypertension Follow-up ?? Outpatient blood pressures are not being checked. ?? Low Salt Diet: no added salt ?? Amount of exercise or physical activity: not consistent in winter ?? Problems taking medications regularly: No ?? Medication side effects: none ?? Diet: softer foods, no raw fruits or vegables PROBLEMS TO ADD ON... Implants , upper- temporary for three months- then permanent Has had a frontal headache, intermittent since implants Problem list and histories reviewed & adjusted, as indicated. Additional history: as documented Patient Active Problem List Diagnosis ??? History of colonic polyps ??? Diverticulosis of large intestine ??? Osteoarthritis ??? 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 Obesity ??? Essential hypertension, benign ??? ACP (advance care planning) ??? Calculus of kidney ??? Health Nursing [facility] ??? History of malignant carcinoid tumor Past Surgical History Procedure Laterality Date ??? Hc remv cataract extracap,insert lens 03/10/04 right ??? Hc remv cataract extracap,insert lens 04/[address] Keith ??? 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 ? C ligatn/strip long & short saphen 03/2006 right leg ??? 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 Extracorporeal shock wave lithotripsy, cystoscopy, insert stent ureter(s), combined 06/08/2012 Procedure: COMBINED EXTRACORPOREAL SHOCK WAVE LITHOTRIPSY, CYSTOSCOPY, INSERT STENT URETER(S); RIGHT COMBINED EXTRACORPOREAL SHOCK WAVE LITHOTRIPSY, CYSTOSCOPY, RIGHT STENT, LEFT RETROGRADE.; Surgeon:Jared Jackson MD; Location: [facility] OR ??? Hrw vein stripper 2012 lower leg sclerosis/ laser therapy ??? Breast biopsy, rt/lt Left 04/2005 left breast (calcium buildup) ??? Hc colonoscopy thru stoma w biopsy/cautery tumor/polyp/lesion Dr Wells ??? Hc colonoscopy thru stoma w biopsy/cautery tumor/polyp/lesion ??? Hc colonoscopy thru stoma w biopsy/cautery tumor/polyp/lesion 2000 ??? Hc colonoscopy thru stoma w biopsy/cautery tumor/polyp/lesion 2002 Dr Mesa ??? Colonoscopy 06/2012 scheduled ? ? Hc hysteroscopy w endometrial bx/polypectomy w/wo d&c 2006 benign uterine polyp ??? Hc knee scope,med/lat menisectomy 04/[address] Arevalo ??? Laparoscopic assisted colectomy Right 07/31/2014 Procedure: LAPAROSCOPIC ASSISTED COLECTOMY; Surgeon: Jerry Lane MD; Location: [facility] OR ? ? Hc removal of tonsils,<12 y/o 1953 Tonsils <12y.o. ??? Us endovenous ablation therapy incompetent 1 vein left Bilateral 2011 ??? Herniorrhaphy incisional (location) N/A 05/02/2015 Procedure: HERNIORRHAPHY INCISIONAL (LOCATION); Surgeon: Cheikh Barcenas MD; Location: [facility] OR ??? Colonoscopy N/A 10/20/2015 3 year recheck ??? Placement of dental implant(s) 06/23/2015 clear choice ??? Cataract iol, rt/lt Bilateral 2003 Social History Substance Use Topics ??? Smoking status: Former Smoker -- 0.50 packs/day for 15 years Quit date: 11/07/1995 ??? Smokeless tobacco: Never Used ??? Alcohol Use: 0.0 oz/week 0 Standard drinks or equivalent per week Comment: rare - wine once in a while Family History Problem Relation Age of Onset ??? CANCER Brother colon ??? Cancer - colorectal Mother ??? CANCER Mother 91 endometrial ??? Colon Cancer Mother ??? Cancer - colorectal Father ??? Colon Cancer Father ??? Breast Cancer Paternal Grandmother ??? Colon Cancer Brother ??? Colon Cancer Brother Current Outpatient Prescriptions Medication Sig Dispense Refill ??? hydrochlorothiazide (HYDRODIURIL) 25 MG tablet Take 1 tablet (25 mg) by mouth daily 90 tablet 3 ??? amLODIPine (NORVASC) 2.5 MG tablet Take 3 tablets (7.5 mg) by mouth daily 270 tablet 3 ??? Multiple Vitamins-Minerals (MULTIVITAMIN OR) Take 1 tablet by mouth daily ??? [DISCONTINUED] amLODIPine (NORVASC) 2.5 MG tablet Take 3 tablets (7.5 mg) by mouth daily 270 tablet 1 ROS: Constitutional, HEENT, cardiovascular, pulmonary, gi and gu systems are negative, except as otherwise noted. OBJECTIVE: BP 130/66 mmHg Pulse 78 Temp(Src) 98.1 ??F (36.7 ??C) (Oral) Ht 1.695 m (5' 6.75) Wt 99.066kg (218 lb 6.4 oz) BMI 34.48 kg/m2 SpO2 99% Body mass index is 34.48 kg/(m^2). External ears and canals clear bilaterally. TM's normal bilaterally. Nose normal without lesions or discharge. Oropharynx normal. Neck supple without palpable adenopathy. Crepitus, TM joints with ROM Regular rate and rhythm. S1 and S2 normal, no murmurs, clicks, gallops or rubs. No edema or JVD. Chest is clear; no wheezes or rales. Diagnostic Test Results: No results found for this or any previous visit (from the past 24 hour(s)). ASSESSMENT/PLAN: Problem List Items Addressed This Visit Essential hypertension, benign - Primary Relevant Medications hydrochlorothiazide (HYDRODIURIL) 25 MG tablet amLODIPine (NORVASC) 2.5 MG tablet Other Relevant Orders BASIC METABOLIC PANEL ([facility]) VENOUS COLLECTION (Completed) BMI: Estimated body mass index is 34.48 kg/(m^2) as calculated from the following: Height as of this encounter: 1.695 m (5' 6.75). Weight as of this encounter: 99.066 kg (218 lb 6.4 oz). Weight management plan: Discussed healthy diet and exercise guidelines and patient will follow up in6 months in clinic to re-evaluate. MEDICATIONS: Continue current medications without change Recheck blood pressure in one year- pending potassium result Work on weight loss Regular exercise Analgesic for headache, prn Liudmila David MD [facility] CULATION OFFICER documented in this encounter Nursing Notes Frances Jaquez CMA - 10/13/2016 10:54 AM CST Shahnaz is here for a medication recheck. Pre-Visit Screening : Immunizations : up to date Colonoscopy : is up to date Mammogram : is up to date Asthma Action Test/Plan : na PHQ9/GAD7 : Na BP done on the left arm, with a regular sized cuff. Pulse - regular My Chart - accepts CLASSIFICATION OF OVERWEIGHT AND OBESITY BY BMI Obesity Class BMI(kg/m2) Underweight < 18.5 Normal 18.5-24.9 Overweight 25.0-29.9 OBESITY I 30.0-34.9 II 35.0-39.9 EXTREME OBESITY III >40 Patient's BMI Body mass index is 34.48 kg/(m^2). http://hin.nhlbi.nih.gov/menuplanner/menu.cgi Questioned patient about current smoking habits. Pt. has never smoked. BERTRAND Grijalva (AAMA) CULATION OFFICER documented in this encounter Plan of Treatment Not on filedocumented as of this encounter Procedures Procedure Name Priority Date/Time Associated Comments Diagnosis BASIC METABOLIC Routine 10/13/2016 12:20 PM Essential Resul ts for this PANEL ARTICULATION OFFICER hypertension, procedure are in benign the results section. HC VENOUS COLLECTION Routine 10/13/2016 11:49 AM Essential ARTICULATION OFFICER hypertension, benign documented in this encounter Results (ABNORMAL) BASIC METABOLIC PANEL ([facility]) (10/13/2016 12:20 PM ARTICULATION OFFICER) P athologist Signature Glucose 105 (H) 65 - 99 [facility] Comment: ? Fasting reference interv al Urea Nitrogen 18 7 - 25 mg/dL [facility] Creatinine 0.65 0.60 - 0.93 mg/dL [facility] Comment: For patients >49 years of age, the refer ence limit for Creatinine is approximately 13% high er for people identified as -Fijian. GFR Estimate 89 > OR = 60 [facility] mL/min/1.73m2 EGFR 104 > OR = 60 [facility] Fijian mL/min/1.73m2 BUN/Creatinine NOT APPLICABLE 6 - 22 (calc) [facility] Ratio Sodium 140 135 - 146 mmol/L [facility] Potassium 3.6 3.5 - 5.3 mmol/L [facility] Chloride 102 98 - 110 mmol/L [facility] Carbon Dioxide 29 20 - 31 mmol/L [facility] Calcium 10.3 8.6 - 10.4 mg/dL [facility] Specimen Anatomical Collection Method Collection Time Receive d Time (Source) Location / / Volume Laterality Blood specimen 10/13/2016 12:20 6 5:55 (specimen) PM ARTICULATION OFFICER AM ARTICULATION OFFICER Resulting Agency Comment Performing Organization Information: ? CB ? [facility] ? [address] [facility] [place] [address] ? Juanito Hardy M.D. Liudmila David MD LAB - BLOOD ORDERABLES Performing Organization Address City/State/ZIP Code Phon e Number [facility] [address] [place], [place] [address] [facility] [address] [place], [place] [address] documented in this encounter Visit Diagnoses Diagnosis Essential hypertension, benign - Primary Episodic tension-type headache, not intr actable Episodic tension type headache Non morbid obesity due to excess calorie s documented in this encounter Care Teams Institutional Cook Relationship Specialty Start Date End Date Liudmila David MD PCP - General Family Practice 02/12/14 1 12/06/19 Liudmila David MD Assigned PCP 10/12/15 documented as of this encounter
--- OUTSIDE RECORDS SUMMARY | 2022-08-18 09:29 | XMS_ITS | Encounter Summary ---
:1945 Author Organization [facility] Address [address] [place] [address] Care Team Providers Name Role Phone Liudmila David MD Primary Care Provider Unavailable Liudmila David MD Unavailable Unavailable Reason for Visit Reason Comments URI cough, congestion x3 weeks Encounter Details Date Type Department Care Team Description 04/06/2018 Office Visit [facility] Liudmila David Acute sinusitis with Prateek Gatica MD symptoms > 10 days [address] [place] [address] (Primary Dx) [address] [place] [address] Social History Tobacco Use Types Packs/Day Years Used Date Smoking Tobacco: Former Cigarettes 0.5 15 Quit : 11/07/1995 Smokeless Tobacco: Never Alcohol Use Standard Drinks/Week Comments Yes 0 (1 standard drink = 0.6 oz pure alcoho l) rare - wine once in a while Sex Assigned at Date Recorded Female 10/17/2018 7:14 PM LIFESTYLE DIRECTOR documented as of this encounter Last Filed Vital Signs Vital Sign Reading Time Taken Comments Blood Pressure 124/82 04/06/2018 9:33 AM CDT Pulse 78 04/06/2018 9:33 AM CDT Temperature 36.9 ??C (98.5 ??F) 04/06/2018 9:33 AM CDT Respiratory Rate - - Oxygen Saturation 96% 04/06/2018 9:33 AM CDT Inhaled Oxygen Concentration - - Weight 100.2 kg (221 lb) 04/06/2018 9:33 AM CDT Height - - Body Mass Index 34.61 02/13/2018 9:07 AM CDT documented in this encounter Patient Instructions Patient InstructionsLiudmila David MD - 04/06/2018 9:15 AM CDT mucinex- plain and lots of water documented in this encounter Progress Notes Liudmila David MD - 04/06/2018 9:15 AM CDT SUBJECTIVE: 72 year old female presents with the following concern: Three week history of tickle- like cough Nasal drainage No fever or chills Symptoms just keep hanging on History of sinusitis, but not sinus surgery Other family members are ill with URI symptoms Other concerns: Rash on abdomen is getting better- did not take shingles medication Patient Active Problem List Diagnosis ??? History of colonic polyps ??? Diverticulosis of large intestine ??? Osteoarthritis ??? 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 Obesity ??? Essential hypertension, benign ??? ACP (advance care planning) ??? Calculus of kidney ??? Health Detention ??? History of malignant carcinoid tumor ??? [...] 1 VEIN LEFT Bilateral 2011 Current Outpatient Prescriptions Medication ??? azithromycin (ZITHROMAX) 250 MG tablet ??? cyclobenzaprine (FLEXERIL) 5 MG tablet ??? hydrochlorothiazide (HYDRODIURIL) 25 MG tablet ??? losartan (COZAAR) 100 MG tablet ??? Multiple Vitamins-Minerals (MULTIVITAMIN OR) ??? triamcinolone (KENALOG) 0.1 % cream ??? valACYclovir (VALTREX) 1000 mg tablet No current facility-administered medications for this visit. OBJECTIVE: BP 124/82 (BP Location: Right arm, Patient Position: Sitting, Cuff Size: Adult Regular) Pulse 78 Temp 98.5 ??F (36.9 ??C) (Oral) Wt 100.2 kg (221 lb) SpO2 96% BMI 34.61 kg/m2 External ears and canals clear bilaterally. TM's normal bilaterally. Nose normal without lesions or discharge. Oropharynx normal. Neck supple without palpable adenopathy. Chest is clear . Assessment (J01.90) Acute sinusitis with symptoms > 10 days (primary encounter diagnosis) Comment: Plan: zpack Call or return to clinic prn if these symtoms worsen, fail to improve as anticipated, or if new symptoms develop. documented in this encounter Nursing Notes Radha Abdul CMA - 04/06/2018 9:15 AM CDT Jina is here due to having URI symptoms for the past 3 weeks. Pre-visit Screening: Immunizations: up to date Colonoscopy: is up to date Mammogram: is up to date Asthma Action Test/Plan: No concerns-just coughing PHQ9: NA GAD7: NA Questioned patient about current smoking habits Pt. quit smoking some time ago. Ok to leave detailed message on voice mail for today's visit only Yes, phone # [phone] (home) documented in this encounter Plan of Treatment Not on filedocumented as of this encounter Visit Diagnoses Diagnosis Acute sinusitis with symptoms > 10 days - Primary Acute sinusitis, unspecified documented in this encounter Care Teams Drop Hammer Setter Up Relationship Specialty Start Date End Date Liudmila David MD PCP - General Family Practice 02/12/14 1 12/06/19 Liudmila David MD Assigned PCP 10/12/15 documented as of this encounter
--- OUTSIDE RECORDS SUMMARY | 2022-08-18 09:29 | XMS_ITS | Encounter Summary ---
:1945 Author Organization [facility] Address [address] [place] [address] Care Team Providers Name Role Phone Liudmila David MD Primary Care Provider Unavailable Liudmila David MD Unavailable Unavailable Reason for Visit Reason Comments Back Pain middle left side hurt while leaf blowing 4-5 days ago taking advil/Tylenol off and on but not helping Other has a red spot on her abdome n which she noticed a couple days ago Encounter Details Date Type Department Care Team Description 03/20/2018 Office Visit [facility] Teresa Casper Merritt k spasm (Primary Dx); Physicians MARISSA Pozo Herpes zoster without complication [address] , [address] [id number] [phone] (Wo rk) Social History Tobacco Use Types Packs/Day Years Used Date Smoking Tobacco: Former Cigarettes 0.5 15 Quit : 11/07/1995 Smokeless Tobacco: Never Alcohol Use Standard Drinks/Week Comments Yes 0 (1 standard drink = 0.6 oz pure alcoho l) rare - wine once in a while Sex Assigned at Date Recorded Female 10/17/2018 7:14 PM 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 Take valacyclovir 1 tablet three times daily with food for 7 days. Monitor for side effects (loose stool, upset stomach) Also consistent with back muscle spasm. Continue alternating ibuprofen and Tylenol. Heat back 15-20 minutes 2-3 times daily. Stretch back after heating. Take cyclobenzaprine (muscle relaxant) 1 tablet up to 3 times daily, but especially before bed as it will likely make drowsy. For skin apply hydrocortisone cream (Cortisone 10) 2 times daily for up to 2 weeks. documented in this encounter Progress Notes Teresa Cool PA-C - 03/20/2018 11:30 AM CDT CC: Left mid-back pain History: Jina is here today with back pain that started 5 days ago when leaf blowing for 10-15 minutes. Mainly in left mid back, but does does occasionally travel down to left buttock. Pain feel pretty sharp. Went to bed feeling normal after leaf blowing, but the next morning waking up had left mid back pain.Has been taking Advil and Tylenol alternating, without much relief. Has tried icing. Pain is causingher to have trouble sleeping. No urinary or bowel symptoms. Has tried some minimal stretching. Shahnaz also noticed a red spot on her left abdomen 2 days ago. Slightly itchy, but not painful. PMH, MEDICATIONS, ALLERGIES, SOCIAL AND FAMILY HISTORY in EPIC and reviewed by me personally. ROS negative other than the symptoms noted above in the HPI. Examination BP 132/70 (BP Location: Right arm, Patient Position: Sitting, Cuff Size: Adult Large) Pulse 77 Temp 98.2 ??F (36.8 ??C) (Oral) Wt 102.2 kg (225 lb 3.2 oz) SpO2 98% BMI 35.27 kg/m2 Constitutional: Sitting comfortably, in no acute distress. Vital signs noted Eyes: pupils equal round reactive to light and accomodation, extra ocular movements intact Neck: no adenopathy, trachea midline and normal to palpation Cardiovascular: regular rate and rhythm, no murmurs, clicks, or gallops Respiratory: normal respiratory rate and rhythm, lungs clear to auscultation M/S: ROM of back intact, with mild pain with left lateral lean. No tenderness to palpation over spine or Paraspinous muscles. Pain is at approximately T10-12 level. NEURO: muscle strength normal, reflexes normal and symmetric SKIN: No jaundice/pallor. Erythematous, vesicular rash with mid excoriation on left abdomen at T10-T11 level. Psychiatric: mentation appears normal and affect normal/bright A/P ICD-10-CM 1. Herpes zoster without complication B02.9 valACYclovir (VALTREX) 1000 mg tablet 2. Back spasm M62.830 cyclobenzaprine (FLEXERIL) 5 MG tablet DISCUSSION: Suspicious for shingles given one-sided pain and rash at same dermatome. Take valacyclovir 1 tablet three times daily with food for 7 days. Monitor for side effects (loose stool, upset stomach) Also consistent with back muscle spasm. Continue alternating ibuprofen and Tylenol. Heat back 15-20 minutes 2-3 times daily. Stretch back after heating. Take cyclobenzaprine (muscle relaxant) 1 tablet up to 3 times daily, but especially before bed as it will likely make drowsy. For rash on abdomen apply hydrocortisone cream (Cortisone 10) 2 times daily for up to 2 weeks. follow up visit: As needed Teresa Cool PA-C [facility] documented in this encounter Nursing Notes Eneida Marina CMA - 03/20/2018 11:30 AM CDT Elizabeth is here for back pain and red lionel on abdomen Pre-visit Screening: Immunizations: up to date Colonoscopy: [place] [id number] Mammogram: is up to date Asthma Action Test/Plan: NA PHQ9: NA GAD7: NA Questioned patient about current smoking habits Pt. quit smoking some time ago. Ok to leave detailed message on voice mail for today's visit only Yes, phone # [phone] documented in this encounter Plan of Treatment Not on filedocumented as of this encounter Visit Diagnoses Diagnosis Back spasm - Primary Other symptoms referable to back Herpes zoster without complication documented in this encounter Care Teams Clinic Business Manager Relationship Specialty Start Date End Date Liudmila David MD PCP - General Family Practice 02/12/14 1 12/06/19 Liudmila David MD Assigned PCP 10/12/15 documented as of this encounter
--- OUTSIDE RECORDS SUMMARY | 2022-08-18 09:29 | XMS_ITS | Encounter Summary ---
:1945 Author Organization [facility] Address [address] [place] [address] Care Team Providers Name Role Phone Liudmila David MD Primary Care Provider Unavailable Liudmila David MD Unavailable Unavailable Reason for Visit Reason Comments Medication Refill Encounter Details Date Type Department Care Team Description 10/05/2016 Refill [facility] Liudmila David MD Medication Refill Physicians [address] [place] [address] [place] [phone] Social History Tobacco Use Types Packs/Day Years Used Date Smoking Tobacco: Former Cigarettes 0.5 15 Quit : 11/07/1995 Smokeless Tobacco: Never Alcohol Use Standard Drinks/Week Comments Yes 0 (1 standard drink = 0.6 oz pure alcoho l) rare - wine once in a while Sex Assigned at Date Recorded Female 10/17/2018 7:14 PM HOSIERY MENDER documented as of this encounter Miscellaneous Notes Telephone Encounter - Jacquie Schmitt MD - 10/05/2016 1:55 PM CST Sent 30 days ERY MENDER Telephone Encounter - Nella Menjivar [facility] - 10/05/2016 1:26 PM CST LES, will you please ok this 30 day for BJS - patient has an appointment set for Dec already. Pending Prescriptions: Disp Refills hydrochlorothiazide (HYDRODIURIL) 25 MG t*30 tab*0 Sig: TAKE ONE TABLET BY MOUTH ONCE DAILY Ready to be faxed when Rx is approved. Please close encounter when finished. Nella Dumas ERY MENDER documented in this encounter Plan of Treatment Not on filedocumented as of this encounter Visit Diagnoses Diagnosis Essential hypertension, benign - Primary documented in this encounter Care Teams Brokerage Coordinator Relationship Specialty Start Date End Date Liudmila David MD PCP - General Family Practice 02/12/14 1 12/06/19 Liudmila David MD Assigned PCP 10/12/15 documented as of this encounter
--- OUTSIDE RECORDS SUMMARY | 2022-08-18 09:29 | XMS_ITS | Encounter Summary ---
:1945 Author Organization [place] Address [address] [place] [address] Care Team Providers Name Role Phone Liudmila David MD Primary Care Provider Unavailable Liudmila David MD Unavailable Unavailable Reason for Visit Reason Comments Edema bilateral swelling of both l egs and feet. Encounter Details Date Type Department Care Team Description 05/07/[address] Office [address] 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 documented as of this encounter Last Filed Vital Signs Vital Sign Reading Time Taken Comments Blood Pressure 140/68 05/07/2017 9:31 AM CDT Pulse 72 05/07/2017 9:31 AM CDT Temperature 36.6 ??C (97.9 ??F) 05/07/2017 9:31 AM CDT Respiratory Rate - - Oxygen Saturation 97% 05/07/2017 9:31 AM CDT Inhaled Oxygen Concentration - - Weight 96.9 kg (213 lb 9.6 oz) 05/07/2017 9:31 AM CDT Height - - Body Mass Index 33.96 03/07/2017 6:45 PM CDT documented in this encounter Patient Instructions Patient InstructionsStLiudmila childs MD - 05/07/2017 9:45 AM CDT STOP NORVASC STAY OFF HYDROCHLOROTHIAZIDE Start new blood pressure medication Take water for 3-5 days Recheck blood pressure and swelling in 3-4 weeks documented in this encounter Progress Notes Liudmila David MD - 05/07/2017 9:45 AM CDT SUBJECTIVE: 71 year old female present with the following concern: Swollen feet after camping 2 weeks- more sitting- change in diet She is currently not taking HCTZ- Dr Jackson recommended DC for 90 days because of kidney stones Takes amlodipine for her hypertension- discussion of edema as a side effect of medication Previous BP medications Tenormin Lisinopril in 2008- Other concerns: History of vein surgery- varicose veins Pigmentation of lower legs- Petechia=-venous stasis Patient Active Problem List Diagnosis ??? History of colonic polyps ??? Diverticulosis of large intestine ??? Osteoarthritis ??? 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 Obesity ??? Essential hypertension, benign ??? ACP (advance care planning) ??? Calculus of kidney ??? Health Long Term ??? History of malignant carcinoid tumor ??? Abnormal glucose ??? Venous stasis dermatitis of both lower extremities Current Outpatient Prescriptions Medication ??? losartan (COZAAR) 100 MG tablet ??? furosemide (LASIX) 20 MG tablet ??? Multiple Vitamins-Minerals (MULTIVITAMIN OR) ??? hydrochlorothiazide (HYDRODIURIL) 25 MG tablet No current facility-administered medications for this visit. OBJECTIVE: BP 140/68 (BP Location: Right arm, Patient Position: Chair, Cuff Size: Adult Regular) Pulse 72 Temp 97.9 ??F (36.6 ??C) (Oral) Wt 96.9 kg (213 lb 9.6 oz) SpO2 97% ? No BMI 33.96 kg/m2 Regular rate and Rhythm. , no murmurs, clicks, gallops or rubs. Edema limited to feet, ankles. Chestis clear; no wheezes or rales. Assessment (I10) Essential hypertension, benign (primary encounter diagnosis) Comment: DC amlodipine Plan: losartan (COZAAR) 100 MG tablet Recheck basic profile and blood pressure in 3-4 weeks (R60.9) Edema, unspecified type Comment: lasix limited to 3-5 days Plan: furosemide (LASIX) 20 MG tablet (I87.2) Venous stasis dermatitis of both lower extremities Comment: Plan: documented in this encounter Nursing Notes Frances Jaquez CMA - 05/07/2017 9:45 AM CDT Shahnaz is here for edema - bilateral swelling of both legs and feet. Pre-Visit Screening : Immunizations : up to date Colonoscopy : is up to date Mammogram : is up to date Asthma Action Test/Plan : NA PHQ9/GAD7 : NA Pulse - regular My Chart - accepts CLASSIFICATION OF OVERWEIGHT AND OBESITY BY BMI Obesity Class BMI(kg/m2) Underweight < 18.5 Normal 18.5-24.9 Overweight 25.0-29.9 OBESITY I 30.0-34.9 II 35.0-39.9 EXTREME OBESITY III >40 Patient's BMI Body mass index is 33.96 kg/(m^2). http://hin.nhlbi.nih.gov/menuplanner/menu.cgi Questioned patient about current smoking habits. Pt. Quit smoking sometime ago. Frances.BERTRAND Jaquez ([facility]) documented in this encounter Plan of Treatment Not on filedocumented as of this encounter Visit Diagnoses Diagnosis Essential hypertension, benign - Primary Edema, unspecified type Venous stasis dermatitis of both lower e xtremities documented in this encounter Care Teams Washateria Attendant Relationship Specialty Start Date End Date Liudmila David MD PCP - General Family Practice 02/12/14 1 12/06/19 Liudmila David MD Assigned PCP 10/12/15 documented as of this encounter
--- OUTSIDE RECORDS SUMMARY | 2022-08-18 09:29 | XMS_ITS | Encounter Summary ---
:1945 Author Organization [place] Address [address] [place] [address] Care Team Providers Name Role Phone Liudmila David MD Primary Care Provider Unavailable Liudmila David MD Unavailable Unavailable Reason for Visit Reason Onset Date Comments Refill Request 08/10/2017 Encounter Details Date Type Department Care Team Description 08/10/2017 Refill [facility] Liudmila David MD Refill Request [address] [place] [address] [address] [place], [place] [phone] Social History Tobacco Use Types Packs/Day Years Used Date Smoking Tobacco: Former Cigarettes 0.5 15 Quit : 11/07/1995 Smokeless Tobacco: Never Alcohol Use Standard Drinks/Week Comments Yes 0 (1 standard drink = 0.6 oz pure alcoho l) rare - wine once in a while Sex Assigned at Date Recorded Female 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 David, Pt has switched to [facility] and would like to have her medications switched there, on top of this, sheis in need of a refill. Her last visit was on 06/08/17 and you wanted her to return in 6 months. Her last LIPID was done on 02/10/17. I have the prescriptions set for 6 month bringing her back in November . Please advise. Frances.BERTRAND Jaquez ([facility]) documented in this encounter Plan of Treatment Not on filedocumented as of this encounter Visit Diagnoses Diagnosis Essential hypertension, benign documented in this encounter Care Teams Jig Boring Machine Set Up Operator Relationship Specialty Start Date End Date Liudmila David MD PCP - General Family Practice 02/12/14 1 12/06/19 Liudmila David MD Assigned PCP 10/12/15 documented as of this encounter
--- OUTSIDE RECORDS SUMMARY | 2022-08-18 09:29 | XMS_ITS | Encounter Summary ---
:1945 Author Organization [place] Address [address] [place] [id number] Care Team Providers Name Role Phone Liudmila David MD Primary Care Provider Unavailable Liudmila David MD Unavailable Unavailable Reason for Visit Reason Onset Date Comments Referral 03/07/2017 ENT Encounter Details Date Type Department Care Team Description 03/07/2017 Telephone [facility] Liudmila David MD Referral (ENT) Physicians [address] [place] [address] [address] [place] [address] Social History Tobacco Use Types Packs/Day Years Used Date Smoking Tobacco: Former Cigarettes 0.5 15 Quit : 11/07/1995 Smokeless Tobacco: Never Alcohol Use Standard Drinks/Week Comments Yes 0 (1 standard drink = 0.6 oz pure alcoho l) rare - wine once in a while Sex Assigned at Date Recorded Female 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 Rogel Date 03/11/17 Time 11am. Called Pt to advise, she is unable to make it on Tuesday. Number given and they are going to reschedule Telephone Encounter - Liudmial David MD - 03/07/2017 7:12 PM CDT Please call and schedule consult with ENT: Treated for otitis media a week ago Cannot hear Can she be seen Tuesday in any office documented in this encounter Plan of Treatment Not on filedocumented as of this encounter Visit Diagnoses Not on filedocumented in this encounter Care Teams Supervisor Yard Relationship Specialty Start Date End Date Liudmila David MD PCP - General Family Practice 02/12/14 1 12/06/19 Liudmila David MD Assigned PCP 10/12/15 documented as of this encounter
--- OUTSIDE RECORDS SUMMARY | 2022-08-18 09:29 | XMS_ITS | Encounter Summary ---
:1945 Author Organization [place] Address [address] [place] [address] Care Team Providers Name Role Phone Liudmila David MD Primary Care Provider Unavailable Liudmila David MD Unavailable Unavailable Reason for Visit Reason Onset Date Comments Ear Problem 03/07/2017 Encounter Details Date Type Department Care Team Description 03/07/2017 Telephone [facility] Liudmila David MD Ear Problem [address] [place] [address] [address] [place] [address] Social History Tobacco Use Types Packs/Day Years Used Date Smoking Tobacco: Former Cigarettes 0.5 15 Quit : 11/07/1995 Smokeless Tobacco: Never Alcohol Use Standard Drinks/Week Comments Yes 0 (1 standard drink = 0.6 oz pure alcoho l) rare - wine once in a while Sex Assigned at Date Recorded Female 10/17/2018 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 Pt was advised to us AFRIN for no more than 72 hours and Pt did use it, however, she states that she feels as if her hearing is worse now after usingAFRIN. She is concerned about her hearing. Pt has an appointment for tonight at 6:30 pm. Frances.BERTRAND Jaquez ([facility]) documented in this encounter Plan of Treatment Not on filedocumented as of this encounter Visit Diagnoses Not on filedocumented in this encounter Care Teams Braille And Talking Books Clerk Relationship Specialty Start Date End Date Liudmila David MD PCP - General Family Practice 02/12/14 1 12/06/19 Liudmila David MD Assigned PCP 10/12/15 documented as of this encounter
--- OUTSIDE RECORDS SUMMARY | 2022-08-18 09:29 | XMS_ITS | Encounter Summary ---
:1945 Author Organization [place] Address [address] [place] [address] Care Team Providers Name Role Phone Liudmila David MD Primary Care Provider Unavailable Liudmila David MD Unavailable Unavailable Reason for Visit Reason Onset Date Comments Otalgia 03/05/2017 Encounter Details Date Type Department Care Team Description 03/05/2017 Telephone [facility]udmila [facility] MD [facility] [address] [place] [address] Social History Tobacco Use Types Packs/Day Years Used Date Smoking Tobacco: Former Cigarettes 0.5 15 Quit : 11/07/1995 Smokeless Tobacco: Never Alcohol Use Standard Drinks/Week Comments Yes 0 (1 standard drink = 0.6 oz pure alcoho l) rare - wine once in a while Sex Assigned at Date Recorded Female 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 She is calling today stating her ear still feels plugged and wants to know if there is anything else that can be done? She was put on Ceftin at the visit- Please advise Patient's phone #[phone] documented in this encounter Plan of Treatment Not on filedocumented as of this encounter Visit Diagnoses Not on filedocumented in this encounter Care Teams Power Shovel Mechanic Relationship Specialty Start Date End Date Liudmila David MD PCP - General Family Practice 02/12/14 1 12/06/19 Liudmila David MD Assigned PCP 10/12/15 documented as of this encounter
--- OUTSIDE RECORDS SUMMARY | 2022-08-18 09:29 | XMS_ITS | Encounter Summary ---
:1945 Author Organization [place] Address [address] [place] [address] Care Team Providers Name Role Phone Liudmila David MD Primary Care Provider Unavailable Liudmila David MD Unavailable Unavailable Reason for Visit Reason Comments Physical annual, fasting Encounter Details Date Type Department Care Team Description 02/13/2018 Office Visit [facility] Liudmila Daivd history and physical examination of adult (Primary Dx); Parteek Gatica MD Dermatitis; [address] Essential hypertension, mark gn [address] [place] [address] Social History Tobacco Use Types Packs/Day Years Used Date Smoking Tobacco: Former Cigarettes 0.5 15 Quit : 11/07/1995 Smokeless Tobacco: Never Alcohol Use Standard Drinks/Week Comments Yes 0 (1 standard drink = 0.6 oz pure alcoho l) rare - wine once in a while Sex Assigned at Date Recorded Female 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 documented as of this encounter Last Filed Vital Signs Vital Sign Reading Time Taken Comments Blood Pressure 132/84 02/13/2018 9:07 AM CDT Pulse 71 02/13/2018 9:07 AM CDT Temperature 36.8 ??C (98.2 ??F) 02/13/2018 9:07 AM CDT Respiratory Rate - - Oxygen Saturation 97% 02/13/2018 9:07 AM CDT Inhaled Oxygen Concentration - - Weight 102.5 kg (226 lb) 02/13/2018 9:07 AM CDT Height 170.2 cm (5' 7) 02/13/2018 9:07 AM CDT Body Mass Index 35.4 02/13/2018 9:07 AM CDT documented in this encounter Patient Instructions Patient InstructionsLiudmila David MD - 02/13/2018 9:00 AM CDT New Recombinant shingles vaccine (Shingrix): call your insurance for information on cost documented in this encounter Progress Notes Liudmila David MD - 02/13/2018 9:00 AM CDT Chief Complaint: Shahnaz Phelps is an 72 year old woman who presents for preventive health visit. Besides routine health maintenance, she would like to discuss refill of triamcinolone cream: one tube lasts a decade- used prn for perineal itching. Hypertension: no recorded blood pressures to review. Renal calculi: she denies flank or abdominal pain- no gross hematuria Obesity: weight gain of about ten pounds this past year. Specialists involved in her care: Dr Elliott ENT: serous otitis, mild hearing loss Dr Lowe: [place] [facility]: carcinoid tumor- right colectomy- appointments every 9 months- last seen in December Dr Jackson: urology - renal calculi- sees every 2 years TCO: Knee pain- last injection a couple of weeks ago Dr Moreira: D&C 2016 for thickened endometrium- no follow up needed. She denies vaginal bleeding Dr Hopper: hand sander- regular visits Health Care Maintenance mammogram up to date Colonoscopy- Q 3 years Normal dexa 2012 Immunization: still needs shingles vaccine Normal lipids- one year ago Still in need of shingles vaccine: No falls- this year Grandmother- male grandson , born this past year. 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 Eats fruit and vegetables, does not drink milk- almonds, cheese Likes sweets- bakes Does not take a vitamin D supplement- Outside of work or daily activities, how many days per week do you exercise for 30 minutes or longer? More active with grandchild, works outside in the summer Have you had an eye exam in the past two years? Due- appointment next Tuesday- has had cataract surgery 2003 Do you see a dentist twice per year? Sees annually PHQ-2 Over the last two weeks- Have you been bothered by little interest or pleasure in doing things? No Over the last two weeks- Have you been feeling down, depressed, or hopeless? No Advanced directive: 2016 ? Scanned to [facility] Social History Substance Use Topics ??? Smoking status: Former Smoker Packs/day: 0.50 Years: 15.00 Quit date: 11/07/1995 ??? Smokeless tobacco: Never Used ??? Alcohol use 0.0 oz/week 0 Standard drinks or equivalent per week Comment: rare - wine once in a while Reviewed orders with patient. Reviewed health maintenance and updated orders accordingly - Yes History of abnormal Pap smear: NO - age 65 - see link Cervical Cytology Screening Guidelines All [facility]. ROS: ROS: 10 point ROS neg other than the symptoms noted above and below in the HPI. Intermittent tinnitus- known hearing loss Lipoma on posterior leg:stable in size for years- not bothersome Varicose veins- considering follow up with vascular surgeon- does not wear compression stockings OBJECTIVE: BP 132/84 (BP Location: Left arm, Patient Position: Sitting, Cuff Size: Adult Large) Pulse 71 Temp 98.2 ??F (36.8 ??C) (Oral) Ht 1.702 m (5' 7) Wt 102.5 kg (226 lb) SpO2 97% BMI 35.4 kg/m2 General appearance: Healthy Skin: Normal. No atypical appearing moles on inspection of trunk and extremities. External ears and canals clear bilaterally. TM's normal bilaterally. Nose normal without lesions or discharge. Oropharynx normal. Neck supple without palpable adenopathy. Breasts are symmetric. No dominant, discrete, fixed or suspicious masses are noted. No skin or nipple changes or axillary nodes. Regular rate and Rhythm. no murmurs - No edema or JVD. Chest is clear; no wheezes or rales. The abdomen is soft without tenderness, guarding, mass or organomegaly. Bowel sounds are normal. No CVA tenderness or inguinal adenopathy noted. Pelvic: Normal vulva are normal. No rash on perineum Rectal exam: deferred Extremities: varicose veins: no venous stasis No edema Soft mass posterior left leg- COUNSELING: Reviewed preventive health counseling, as reflected in patient instructions Regular exercise Healthy diet/nutrition Osteoporosis Prevention/Bone Health Advance Care Planning ATP III Guidelines ICSI Preventive Guidelines ASSESSMENT/PLAN: (Z00.00) Routine history and physical examination of adult (primary encounter diagnosis) Comment: Plan: BASIC METABOLIC PANEL ([facility]), Hemoglobin A1c (BFP), VENOUS COLLECTION, HEMOGRAM/PLATELET (BFP) (L30.9) Dermatitis Comment: Plan: triamcinolone (KENALOG) 0.1 % cream (I10) Essential hypertension, benign Comment: blood pressure is controlled Plan: BASIC METABOLIC PANEL ([facility]), VENOUS COLLECTION, hydrochlorothiazide (HYDRODIURIL) 25 MG tablet, losartan (COZAAR) 100 MG tablet documented in this encounter Nursing Notes Radha Abdul CMA - 02/13/2018 9:00 AM CDT Shahnaz is here for annual physical and is fasting today. Patient is here for a full physical exam. Pre-Visit Screening : Immunizations : up to date-patient will get Shinrix at pharmacy Colon Screening : is up to date 10/20/15-will set up colonoscopy for October 2018 she is due for every 3 years Mammogram: up to date 01/23/18 Asthma Action Test/Plan : No concerns PHQ9 : Will do PHQ-2 today GAD7 : No concerns Patient's BMI Body mass index is 35.4 kg/(m^2). Questioned patient about current smoking habits. Pt. quit smoking some time ago. OK to leave a detailed voice message regarding today's visit Yes, phone # [phone] (home) ETOH screening: Questions: 1-How often do you have a drink containing alcohol? 1 times per week(s)-patient goes some weeks without having any at all 2-How many drinks containing alcohol do you have on a typical day when you are Drinking? 2 3- How often do you have 5 or more drinks on one occasion? Never documented in this encounter Plan of Treatment Not on filedocumented as of this encounter Procedures Procedure Name Priority Date/Time Associated Diagnosis Comme nts BASIC METABOLIC Routine 02/13/2018 9:59 AM Routine history and Results for this PANEL CDT physical examination procedu re are in of adult the results Essential section. hypertension, benign HEMOGLOBIN A1C Routine 02/13/2018 9:35 AM Routine history and Results for this CDT physical examination procedu re are in of adult the results section. ZZCL AFF Routine 02/13/2018 9:31 AM Routine history and Re sults for this HEMOGRAM/PLATELET CDT physical examination pr ocedure are in of adult the results section. HC VENOUS COLLECTION Routine 02/13/2018 9:15 AM Routine histor y and CDT physical examination of adult Essential hypertension, benign documented in this encounter Results (ABNORMAL) BASIC METABOLIC PANEL ([facility]) (02/13/2018 9:59 AM CDT) P athologist Signature Glucose 103 (H) 65 - 99 [facility] Comment: ? Fasting reference interv al For someone without known diabetes, a gl ucose value between 100 and 125 mg/dL is consistent with prediabetes and should be confirmed with a follow-up test. Urea Nitrogen 21 7 - 25 mg/dL [facility] Creatinine 0.73 0.60 - 0.93 mg/dL [facility] Comment: For patients >49 years of age, the refer ence limit for Creatinine is approximately 13% high er for people identified as -Japanese. GFR Estimate 82 > OR = 60 [facility] mL/min/1.73m2 EGFR 95 > OR = 60 [facility] Japanese mL/min/1.73m2 BUN/Creatinine NOT APPLICABLE 6 - 22 (calc) [facility] Ratio Sodium 141 135 - 146 mmol/L [facility] Potassium 3.9 3.5 - 5.3 mmol/L [facility] Chloride 102 98 - 110 mmol/L [facility] Carbon Dioxide 29 20 - 31 mmol/L [facility] Calcium 9.9 8.6 - 10.4 mg/dL [facility] Specimen Anatomical Collection Method Collection Time Receive d Time (Source) Location / / Volume Laterality Blood specimen 02/13/2018 9:59 AM 018 2:51 (specimen) CDT AM CDT Resulting Agency Comment Performing Organization Information: ? CB ? [facility] ? [address] [facility] [place], [place] [address] ? Juanito Hardy M.D. Liudmila David MD LAB - BLOOD ORDERABLES Performing Organization Address [facility]/ZIP [facility] Phon e Number [facility] [address] [place], [place] [address] [facility] [address] [place], [place] [address] Hemoglobin A1c (BFP) (02/13/2018 9:35 AM CDT) P athologist Signature Hemoglobin A1C 5.7 4.0 - 7.0 % [facility] INTERNAL Specimen (Source) Anatomical Collection Method Collection Time Re ceived Time Location / / Volume Laterality Blood specimen 02/13/2018 9:35 AM (specimen) CDT Liudmila David MD LAB - BLOOD ORDERABLES Performing Organization Address [facility] Phon e Number [facility] INTERNAL (ABNORMAL) HEMOGRAM/PLATELET (BFP) (02/13/2018 9:31 AM CDT) Analysis Performed At Patho logist Time Signature WBC 6.0 4.0 - 11 [facility] INTERNAL 10*9/L RBC Count 4.14 3.8 - 5.2 [facility] INTERNAL 10*12/L Hemoglobin 14.0 11.7 - [facility] INTERNAL 15.7 g/dL Hematocrit 40.0 35.0 - [facility] INTERNAL 47.0 % MCV 96.7 78 - 100 [facility] INTER[facility] fL MCH 33.9 (A) 26 - 33 pg [facility] INTERNAL MCHC 35.0 31 - 36 [facility] INTER[facility] g/dL RDW 11.8 % [facility] INTERNAL Platelet Count 239 150 - 375 [facility] INTERNAL 10^9/L Specimen (Source) Anatomical Collection Method Collection Time Re ceived Time Location / / Volume Laterality 02/13/2018 9:31 AM CDT Liudmila David MD LABORATORY Performing Organization Address City/[facility]/ZIP Code Phon e Number [facility] INTERNAL documented in this encounter Visit Diagnoses Diagnosis Routine history and physical examination of adult - Primary Routine general medical examination at a health care facility Dermatitis Contact dermatitis and other eczema, due to unspecified cause Essential hypertension, benign documented in this encounter Care Teams Software Program Manager Relationship Specialty Start Date End Date Liudmila David MD PCP - General Family Practice 02/12/14 1 12/06/19 Liudmila David MD Assigned PCP 10/12/15 documented as of this encounter
--- OUTSIDE RECORDS SUMMARY | 2022-08-18 09:29 | XMS_ITS | Encounter Summary ---
:1945 Author Organization [facility] Address [address] [place] [address] Care Team Providers Name Role Phone Liudmila David MD Primary Care Provider Unavailable Liudmila David MD Unavailable Unavailable Reason for Visit Reason Comments Fever dry tickle cough, coughing u p phlegm, Ear Problem bialteral ear pain. Eye Problem LT eye is matted in the morn ing- Red- Encounter Details Date Type Department Care Team Description 02/28/2017 Office Visit [facility] Liudmila David Acute suppurative otitis media of left ear without spontaneous rupture of tympanic membrane, recurrence not specified; Physicians MD En Acute sinusitis with symptom s > 10 days [address] [place] [address] [address] [place] [address] Social History Tobacco Use Types Packs/Day Years Used Date Smoking Tobacco: Former Cigarettes 0.5 15 Quit : 11/07/1995 Smokeless Tobacco: Never Alcohol Use Standard Drinks/Week Comments Yes 0 (1 standard drink = 0.6 oz pure alcoho l) rare - wine once in a while Sex Assigned at Date Recorded 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 Last Filed Vital Signs Vital Sign Reading Time Taken Comments Blood Pressure 128/60 02/28/2017 2:57 PM CDT Pulse 78 02/28/2017 2:57 PM CDT Temperature 37 ??C (98.6 ??F) 02/28/2017 2:57 PM CDT Respiratory Rate - - Oxygen Saturation 94% 02/28/2017 2:57 PM CDT Inhaled Oxygen Concentration - - Weight 97.3 kg (214 lb 6.4 oz) 02/28/2017 2:57 PM CDT Height - - Body Mass Index 34.09 02/10/2017 8:55 AM CDT documented in this encounter Progress Notes Liudmila David MD - 02/28/2017 2:45 PM CDT SUBJECTIVE: 71 year old female presents with the following concern: Ill since February 20 Low grade fever Started with tickle in throat Chills Cough/ green flem Tired No longer having body aches Over the weekend: right eye matter Ears hurt: left bad last night Not a lot of nasal drainage Medications: Ibuprofen/ three at a time, improves symptoms Nyquil: not always able to sleep- marginal benefit Sinus meds not helpful Allergies: hives from amoxicillin She brings recorded blood pressures from home: recorded bp 137/66.133/69, 122/68 off of diuretic OBJECTIVE: BP 128/60 (BP Location: Left arm, Patient Position: Chair, Cuff Size: Adult Large) Pulse 78 Temp98.6 ??F (37 ??C) (Oral) Wt 97.3 kg (214 lb 6.4 oz) SpO2 94% BMI 34.09 kg/m2 No acute distress External ears and canals clear bilaterally. Right TM's normal/ left otitis media. Nose normal without lesions or discharge. Oropharynx : erythema of the posterior pharynx with moderate purulent post nasal drainage. Neck supple without palpable adenopathy. Chest is clear Cor: RRR without murmur Assessment (H66.002) Acute suppurative otitis media of left ear without spontaneous rupture of tympanic membrane, recurrence not specified Comment: Plan: cefuroxime (CEFTIN) 500 MG tablet (J01.90) Acute sinusitis with symptoms > 10 days Comment: Plan: cefuroxime (CEFTIN) 500 MG tablet, guaiFENesin (MUCINEX) 600 MG 12 hr tablet Call or return to clinic prn if these symtoms worsen, fail to improve as anticipated, or if new symptoms develop. documented in this encounter Nursing Notes Frances Jaquez CMA - 02/28/2017 2:45 PM CDT Shahnaz is here for a cough, phlegm, bilateral ear pain, and LT eye is matted and red. Pre-Visit Screening : Immunizations : up to date Colonoscopy : is up to date Mammogram : is up to date Asthma Action Test/Plan : na PHQ9/GAD7 : Na Pulse - regular My Chart - accepts CLASSIFICATION OF OVERWEIGHT AND OBESITY BY BMI Obesity Class BMI(kg/m2) Underweight < 18.5 Normal 18.5-24.9 Overweight 25.0-29.9 OBESITY I 30.0-34.9 II 35.0-39.9 EXTREME OBESITY III >40 Patient's BMI Body mass index is 34.09 kg/(m^2). http://hin.nhlbi.nih.gov/menuplanner/menu.cgi Questioned patient about current smoking habits. Pt. has never smoked. Frances.BERTRAND Jaquez ([facility]) documented in this encounter Plan of Treatment Not on filedocumented as of this encounter Visit Diagnoses Diagnosis Acute suppurative otitis media of left e ar without spontaneous rupture of tympanic membrane, recurrence not specified Acute sinusitis with symptoms > 10 days Acute sinusitis, unspecified documented in this encounter Care Teams Shipping Specialist Relationship Specialty Start Date End Date Liudmila David MD PCP - General Family Practice 02/12/14 1 12/06/19 Liudmila David MD Assigned PCP 10/12/15 documented as of this encounter
--- OUTSIDE RECORDS SUMMARY | 2022-08-18 09:29 | XMS_ITS | Encounter Summary ---
:1945 Author Organization [facility] Address [address] [place] [address] Care Team Providers Name Role Phone Liudmila David MD Primary Care Provider Unavailable Liudmila David MD Unavailable Unavailable Reason for Visit Reason Comments Recheck Medication blood pressure medication re check. 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 Last Filed Vital Signs Vital Sign Reading Time Taken Comments Blood Pressure 144/56 06/08/2017 9:45 AM CDT Pulse 72 06/08/2017 9:45 AM CDT Temperature 36.6 ??C (97.8 ??F) 06/08/2017 9:45 AM CDT Respiratory Rate - - Oxygen Saturation 96% 06/08/2017 9:45 AM CDT Inhaled Oxygen Concentration - - Weight 95.7 kg (211 lb) 06/08/2017 9:45 AM CDT Height 168.3 cm (5' 6.25) 06/08/2017 9:45 AM CDT Body Mass Index 33.8 06/08/2017 9:45 AM CDT documented in this encounter Patient Instructions Patient InstructionsLiudmila David MD - 06/08/2017 9:30 AM CDT Recheck blood pressure in six months Restart hydrochlorothiazide , one daily Continue losartan 100 mg daily documented in this encounter Progress Notes Liudmila David MD - 06/08/2017 9:30 AM CDT SUBJECTIVE: 71 year old female presents with the following concern: Recheck blood pressure after increasing losartan to 100 mg She had discontinued HCTZ upon the request of her urologist. No apparent side effects Edema: resolved after a few days of lasix earlier this summer. No further complaints OBJECTIVE: BP 144/56 (BP Location: Right arm, Patient Position: Chair, Cuff Size: Adult Large) Pulse 72 Temp 97.8 ??F (36.6 ??C) (Oral) Ht 1.683 m (5' 6.25) Wt 95.7 kg (211 lb) SpO2 96% ? No BMI 33.8 kg/m2 Repeat BP 146/70 No change in blood pressure with increase in losartan dose Regular rate and rhythm. S1 and S2 normal, no murmurs, clicks, gallops or rubs. No edema or JVD. Chest is clear; no wheezes or rales. Assessment Hypertension, needs improvement PLAN: Continue losartan 100 mg Will restart hctz 25 mg for renal calculi and hypertension Monitor blood pressure foods high in potassium- encouraged Recheck in six months (has not had a history of low potassium in the past years of HCTZ use) documented in this encounter Nursing Notes Frances Jaquez CMA - 06/08/2017 9:30 AM CDT Shahnaz is here for a medication recheck-blood pressure medication recheck. Pre-Visit Screening : Immunizations : [...] >40 Patient's BMI Body mass index is 33.8 kg/(m^2). http://hin.nhlbi.nih.gov/menuplanner/menu.cgi Questioned patient about current smoking habits. Pt.quit sometime ago. Frances.BERTRAND Jaquez ([facility]) documented in this encounter Plan of Treatment Not on filedocumented as of this encounter Procedures Procedure Name Priority Date/Time Associated Comments Diagnosis BASIC METABOLIC Routine 06/08/2017 10:28 AM Essential Resul ts for this PANEL CDT hypertension, procedure are in benign the results section. HC VENOUS COLLECTION Routine 06/08/2017 10:10 AM Essential CDT hypertension, benign documented in this encounter Results (ABNORMAL) BASIC METABOLIC PANEL ([facility]) (06/08/2017 10:28 AM CDT) P athologist Signature Glucose 116 (H) 65 - 99 [facility] mg/dL [facility] Comment: ? Fasting reference interv al For someone without known diabetes, a gl ucose value between 100 and 125 mg/dL is consistent with prediabetes and should be confirmed with a follow-up test. Urea Nitrogen 20 7 - 25 mg/dL [facility] Creatinine 0.75 0.60 - 0.93 mg/dL [facility] Comment: For patients >49 years of age, the refer ence limit for Creatinine is approximately 13% high er for people identified as -[place]. GFR Estimate 80 > OR = 60 [facility] mL/min/1.73m2 EGFR 93 > OR = 60 [facility] [place] mL/min/1.73m2 BUN/Creatinine NOT APPLICABLE 6 - 22 (calc) [facility] [employer] Ratio Sodium 142 135 - 146 mmol/L [facility] Potassium 4.0 3.5 - 5.3 mmol/L [facility] Chloride 106 98 - 110 mmol/L [facility] Carbon Dioxide 27 20 - 31 mmol/L [facility] Calcium 9.7 8.6 - 10.4 mg/dL [facility] Specimen Anatomical Collection Method Collection Time Receive d Time (Source) Location / / Volume Laterality Blood specimen 06/08/2017 10:28 7 4:36 (specimen) AM CDT AM CDT Resulting Agency Comment Performing Organization Information: ? CB ? [facility] ? [address] [place] [address] ? Juanito Hardy M.D. Liudmila David MD LAB - BLOOD ORDERABLES Performing Organization Address City/State/ZIP Code Phon e Number [facility] [address] [address] [facility] [address] [place], [place] [address] documented in this encounter Visit Diagnoses Diagnosis Calculus of kidney - Primary Essential hypertension, benign documented in this encounter Care Teams Estate Conservator Relationship Specialty Start Date End Date Liudmila David MD PCP - General Family Practice 02/12/14 1 12/06/19 Liudmila David MD Assigned PCP 10/12/15 documented as of this encounter
--- OUTSIDE RECORDS SUMMARY | 2022-08-18 09:29 | XMS_ITS | Encounter Summary ---
:1945 Author Organization [facility] Address [address] [place] [id number] Care Team Providers Name Role Phone Liudmila David MD Primary Care Provider Unavailable Liudmila David MD Unavailable Unavailable Reason for Visit Reason Comments Allied Health Visit flu shot today only Encounter Details Date Type Department Care Team Description 09/27/2018 [facility] Liudmila David Allied Health Visit Health/Nurse Physicians MD En (flu shot today only) Visit [address] [place] [address] [address] [place] [phone] Social History Tobacco Use Types Packs/Day Years Used Date Smoking Tobacco: Former Cigarettes 0.5 15 Quit : 11/07/1995 Smokeless Tobacco: Never Alcohol Use Standard Drinks/Week Comments Yes 0 (1 standard drink = 0.6 oz pure alcoho l) rare - wine once in a while Sex Assigned at Date Recorded Female 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
--- OUTSIDE RECORDS SUMMARY | 2022-08-18 09:30 | XMS_ITS | Encounter Summary ---
:1945 Author Organization [facility] Address [address] [place] [id number] Care Team Providers Name Role Phone Liudmila David MD Primary Care Provider Unavailable Reason for Visit Reason Comments Pre-Op Exam Encounter Details Date Type Department Care Team Description 04/17/2015 Office Visit [facility] Bruna Meade Preop general physical exam (Primary Dx); Physicians SHAN Hayward Ventral hernia; [address], [place] N[place]; [address] DIVERTICULOSIS OF COLON W/O BLEED; [place], [place] OSTEOARTHRO S NOS-UNSPEC; [id number] Other and unspecified malignant neoplasm of skin of other and unspecified parts of face; [phone] Essential hyper tension, benign; (Work) Calculus of kidney; [phone] History of jw gnant carcinoid tumor; (Fax) OBESITY NOS; PERS HX COLONIC POLYPS Social History Tobacco Use Types Packs/Day Years Used Date Smoking Tobacco: Former Cigarettes 0.5 15 Quit : 11/07/1995 Smokeless Tobacco: Never Alcohol Use Standard Drinks/Week Comments Yes 0 (1 standard drink = 0.6 oz pure alcoho l) rare - wine once in a while Sex Assigned at Date Recorded Female 10/17/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 [address] [place] [address]. [address] [facility] [address] Dept: [phone] PRE-OP EVALUATION: Today's date: 04/17/2015 Shahnaz Phelps (: 1945) presents for pre-operative evaluation assessment as requestedby Dr. Jiménez. She requires evaluation and anesthesia risk assessment prior to undergoing surgery/procedure for treatment of Hernia . Proposed procedure: Hernia Repair Date of Surgery/ Procedure: 05/02/15 Time of Surgery/ Procedure: 1:00pm Hospital/Surgical Facility: [facility] Primary Physician: Liudmila David Type of [...] had a blood transfusion? 13. YES - Have you or any of your relatives ever had problems with anesthesia? PONV 14. NO - Do you have sleep apnea, excessive snoring or daytime drowsiness? 15. NO - Do you have any prosthetic heart valves? 16. NO - Do you have prosthetic joints? 17. NO - Is there any chance that you may be ? HPI: Brief HPI related to upcoming procedure: hernia related to surgery last year HYPERTENSION - Patient has longstanding history of mod-severe HTN , currently denies any symptoms referable to elevated blood pressure. Specifically denies chest pain, palpitations, dyspnea, orthopnea,PND or peripheral edema. Blood pressure readings have been in normal range. Current medication regimen is as listed below. Patient denies any side effects of medication. . MEDICAL HISTORY: Patient Active Problem List Diagnosis Date Noted ??? History of malignant carcinoid tumor 04/17/2015 Priority: Medium ??? 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 Calculus of kidney 03/28/2012 Priority: Medium ??? Advanced care planning/counselling discussion 02/26/2012 Priority: Medium Advance Care Planning: ACP Review and Resources Provided: Reviewed chart for advance care plan. Shahnaz Phelps has noplan or code status on file. Discussed available resources and provided with information. Confirmed code status reflects current choices pending further ACP discussions. Confirmed/documented designateddecision maker(s). See permanent comments section of demographics in clinical tab. Added by July Keenan on 03/18/2014 ??? Essential Hypertension, Benign 02/25/2009 Priority: Medium ??? OBESITY NOS 12/11/2007 Priority: Medium ??? 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 Please review for accuracy ??? OSTEOARTHROS NOS-UNSPEC 07/14/2004 Priority: Medium ??? DIVERTICULOSIS OF COLON W/O BLEED Priority: Medium ??? ACNE NEC Priority: Medium ??? PERS HX COLONIC POLYPS Priority: Medium Past Medical History Diagnosis Date ??? Other acne ??? Need for prophylactic hormone replacement therapy (postmenopausal) ??? Allergic rhinitis due to pollen ??? Hypertension ??? 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 PONV (postoperative nausea and vomiting) vomitted for 12 hours after surgery ??? 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 [...] RETROGRADE.; Surgeon:Jared Jackson MD; Location: OR ??? Hrw vein stripper 2012 lower leg sclerosis/ laser therapy ??? Breast biopsy, rt/lt 04/2005 left breast (calcium buildup) ??? Hc [...] Right 07/31/2014 Procedure: LAPAROSCOPIC ASSISTED COLECTOMY; Surgeon: Lane, Jerry C, MD; Location: [facility] OR ? ? Hc removal of tonsils,<12 y/o 1953 Tonsils <12y.o. ??? Cataract iol, rt/lt 2003 ??? Us endovenous ablation therapy incompetent 1 vein left Bilateral 2011 Current Outpatient Prescriptions Medication Sig Dispense Refill ??? amLODIPine (NORVASC) 2.5 MG tablet Take 3 tablets (7.5 mg) by mouth daily 270 tablet 1 ??? hydrochlorothiazide (HYDRODIURIL) 25 MG tablet Take 1 tablet (25 mg) by mouth daily 90 tablet 1 ??? Multiple Vitamins-Minerals (MULTIVITAMIN OR) Take 1 tablet by mouth daily ??? Calcium Citrate-Vitamin D (CITRACAL + D PO) Take 630 mg by mouth Vit D - 500iu Calcium 630mg Sodium 10mg takes two pills qd OTC products: None, except as noted above Allergies Allergen Reactions ??? Imidazole Antifungals hives ??? Penicillins hives Latex Allergy: NO History Substance Use Topics ??? Smoking status: Former Smoker -- 0.50 packs/day for 15 years Quit date: 11/07/1995 ??? Smokeless tobacco: Never Used ??? Alcohol Use: 0.0 oz/week 0 Not specified per week Comment: rare - wine once in a while History Drug Use No REVIEW OF SYSTEMS: Constitutional, HEENT, cardiovascular, pulmonary, gi and gu systems are negative, except as otherwise noted. EXAM: BP 128/64 mmHg Pulse 80 Temp(Src) 98.4 ??F (36.9 ??C) (Oral) Ht 1.689 m (5' 6.5) Wt 97.75 kg (215 lb 8 oz) BMI 34.27 kg/m2 SpO2 98% GENERAL APPEARANCE: healthy, alert and no distress EYES: EOMI,- PERRL HENT: ear canals and TM's normal and nose and mouth without ulcers or lesions NECK: no adenopathy, no asymmetry, masses, or scars and thyroid normal to palpation RESP: lungs clear to auscultation - no rales, rhonchi or wheezes CV: regular rates and rhythm, normal S1 S2, no S3 or S4 and no murmur, click or rub - ABDOMEN: soft, nontender, no HSM or masses and bowel sounds normal - 5 inch ventral hernia superiorto the umbilicus - reducible. MS: extremities normal- no gross deformities noted, no evidence of inflammation in joints, FROM in all extremities. NEURO: Normal strength and tone, sensory exam grossly normal, mentation intact and speech normal PSYCH: mentation appears normal. and affect normal/bright DIAGNOSTICS: EKG: appears normal, NSR, normal axis, normal intervals, no acute ST/T changes c/w ischemia, no LVH by voltage criteria, unchanged from previous tracings Component Latest Ref Rng 04/17/2015 Glucose 65 - 99 mg/dL 89 Urea Nitrogen 7 - 25 mg/dL 21 Creatinine 0.50 - 0.99 mg/dL 0.78 GFR Estimate > OR = 60 mL/min/1.73m2 78 EGFR > OR = 60 mL/min/1.73m2 90 BUN/Creatinine Ratio 6 - 22 (calc) NOT APPLICABLE Sodium 135 - 146 mmol/L 142 Potassium 3.5 - 5.3 mmol/L 3.5 Chloride 98 - 110 mmol/L 102 Carbon Dioxide 19 - 30 mmol/L 27 Calcium 8.6 - 10.4 mg/dL 10.0 Recent Labs Lab Test 02/27/15 1148 02/27/15 1145 02/27/15 1143 12/09/14 1017 08/03/14 0757 08/02/14 0730 08/01/14 1058 09/13/13 1645 HGB -- 13.9 -- -- -- 11.6* 11.8 < > -- PLT -- 318 -- -- 211 184 204 < > -- NA -- -- -- 141 -- -- 143 < > -- POTASSIUM -- -- 3.9 4.1 -- -- 3.4 < > -- CR -- -- -- 0.70 -- -- 0.70 < > -- A1C 5.6 -- -- -- -- -- -- -- 5.4 < > = values in this interval not displayed. IMPRESSION: Reason for surgery/procedure: hernia repair Diagnosis/reason for consult: v72.83 - Preoperative clearance The proposed surgical procedure is considered INTERMEDIATE risk. REVISED CARDIAC RISK INDEX The patient has the following serious cardiovascular risks for perioperative complications such as (CO, PE, VFib and 3?? AV Block): No serious cardiac risks INTERPRETATION: 0 risks: Class I (very low risk - 0.4% complication rate) The patient has the following additional risks for perioperative complications: No identified additional risks ICD-9-CM 1. Preop general physical exam V72.83 BASIC METABOLIC PANEL ([facility]) VENOUS COLLECTION CL AFF HEMOGLOBIN ([facility]) EKG 12-lead complete w/read - Clinics 2. Ventral hernia 553.20 3. ACNE NEC 706.1 4. DIVERTICULOSIS OF COLON W/O BLEED 562.10 5. OSTEOARTHROS NOS-UNSPEC 715.90 6. Other and unspecified malignant neoplasm of skin of other and unspecified parts of face 173.30 7. Essential hypertension, benign 401.1 8. Calculus of kidney 592.0 9. History of malignant carcinoid tumor V10.91 10. OBESITY NOS 278.00 11. PERS HX COLONIC POLYPS V12.72 RECOMMENDATIONS: --Approval given to proceed with proposed procedure, without further diagnostic evaluation Signed Electronically by: SHAN CASTILLO Copy of this evaluation report is provided to requesting physician. Rose Marie Preop Guidelines documented in this encounter Nursing Notes America Randolph CMA - 04/17/2015 1:10 PM CDT Shahnaz Phelps is here for a pre op exam Pre-visit planning: Colon: is up to date Breast: is up to date Immunizations: up to date Asthma: NA PHQ9/JAY: NA Used Reg BP Cuff on pts left arm. Pts Pulse was regular. Pt was offered to sign up for My Chart and pt accepts. Questioned patient about current smoking habits. Pt. quit smoking some time ago. CLASSIFICATION OF OVERWEIGHT AND OBESITY BY BMI Obesity Class BMI(kg/m2) Underweight < 18.5 Normal 18.5-24.9 Overweight 25.0-29.9 OBESITY I 30.0-34.9 II 35.0-39.9 EXTREME OBESITY III >40 Patient's BMI Body mass index is 34.27 kg/(m^2). http://hin.nhlbi.nih.gov/menuplanner/menu.cgi documented in this encounter Plan of Treatment Not on filedocumented as of this encounter Procedures Procedure Name Priority Date/Time Associated Comments Diagnosis BASIC METABOLIC Routine 04/17/2015 2:05 PM Preop general Resul ts for this PANEL CDT physical exam procedure are in the results section. ZZCL AFF HEMOGLOBIN Routine 04/17/2015 1:49 PM Preop general R esults for this CDT physical exam procedure are in the results section. EKG 12-LEAD COMPLETE Routine 04/17/2015 1:43 PM Preop general Results for this W/READ - CLINICS CDT physical exam procedure are in the results section. HC VENOUS COLLECTION Routine 04/17/2015 1:34 PM Preop general CDT physical exam documented in this encounter Results BASIC METABOLIC PANEL ([facility]) (04/17/2015 2:05 PM CDT) P athologist Signature Glucose 89 65 - 99 [facility] mg/dL [facility] Comment: ? Fasting reference interv al Urea Nitrogen 21 7 - 25 mg/dL [facility] Creatinine 0.78 0.50 - 0.99 mg/dL [facility] Comment: For patients >49 years of age, the refer ence limit for Creatinine is approximately 13% high er for people identified as -Finnish. GFR Estimate 78 > OR = 60 [facility] mL/min/1.73m2 EGFR 90 > OR = 60 [facility] Finnish mL/min/1.73m2 BUN/Creatinine NOT APPLICABLE 6 - 22 (calc) [facility] Ratio Sodium 142 135 - 146 mmol/L [facility] Potassium 3.5 3.5 - 5.3 mmol/L [facility] Chloride 102 98 - 110 mmol/L [facility] Carbon Dioxide 27 19 - 30 mmol/L [facility] Calcium 10.0 8.6 - 10.4 mg/dL [facility] Specimen Anatomical Collection Method Collection Time Receive d Time (Source) Location / / Volume Laterality Blood specimen 04/17/2015 2:05 PM 015 5:42 (specimen) CDT AM CDT Resulting Agency Comment Performing Organization Information: ? CB ? [facility] ? [address] [place], [place] [phone] ? Juanito Hardy M.D. [facility] - BLOOD ORDERABLES Performing Organization Address [facility] Phon e Number [facility] [address] [place], [place] [address] [facility] [address] [place], [place] [address] CL AFF HEMOGLOBIN ([facility]) (04/17/2015 1:49 PM CDT) P athologist Signature Hemoglobin 13.3 11.7 - 15.7 [facility] INTERNAL g/dL Specimen (Source) Anatomical Collection Method Collection Time Re ceived Time Location / / Volume Laterality 04/17/2015 1:49 PM CDT [facility] Performing Organization Address [facility] Phon e Number [facility] INTERNAL EKG 12-lead complete w/read - Clinics (04/17/2015 1:43 PM CDT) Narrative This result has an attachment that is no t available. [facility] ECG ORDERABLES Performing Organization Address [facility] Phon e Number [facility] INTERNAL documented in this encounter Visit Diagnoses Diagnosis Preop general physical exam - Primary Other specified pre-operative examinatio n Ventral hernia Ventral hernia, unspecified, without men tion of obstruction or gangrene ACNE NEC Other acne DIVERTICULOSIS OF COLON W/O BLEED Diverticulosis of colon (without mention of hemorrhage) OSTEOARTHROS NOS-UNSPEC Osteoarthrosis, unspecified whether gene ralized or localized, unspecified site Other and unspecified malignant neoplasm of skin of other and unspecified parts of face Unspecified malignant neoplasm of skin o f other and unspecified parts of face Essential hypertension, benign Calculus of kidney 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
--- OUTSIDE RECORDS SUMMARY | 2022-08-18 09:30 | XMS_ITS | Encounter Summary ---
:1945 Author Organization [facility] Address [address] [place] [address] Care Team Providers Name Role Phone Liudmila David MD Primary Care Provider Unavailable Liudmila David MD Unavailable Unavailable Reason for Visit Reason Comments RECHECK recheck hernia Encounter Details Date Type Department Care Team Description 03/01/[address] [facility] Jeanmarie Alfaro MD Malignant neoplasm of ascending colon (H ) (Primary Dx); Surgery Clinic [address] [facility] Incisi onal hernia, without obstruction or gangrene [place] [address] 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 Last Filed Vital Signs Vital Sign Reading Time Taken Comments Blood Pressure 134/66 03/01/2016 10:25 AM CDT Pulse 92 03/01/2016 10:25 AM CDT Temperature - - Respiratory Rate - - Oxygen Saturation 97% 03/01/2016 10:25 AM CDT Inhaled Oxygen Concentration - - Weight 97.5 kg (215 lb) 03/01/2016 10:25 AM CDT pt repo rted Height 170.2 cm (5' 7) 03/01/2016 10:25 AM CDT pt repo rted Body Mass Index 33.67 03/01/2016 10:25 AM CDT documented in this encounter Patient Instructions Patient InstructionsMorenaLori - 03/01/2016 10:[address] ABDOMEN AND PELVIS WITH CONTRAST and valsalva Date: 03-03-16 Time: 11:00 am Location: [address] [place] [address] Please check in at 10:[address] scanning Do not eat or drink anything TWO hours prior to your exam except for prep: Mix all the liquid from the bottle Omnipaque 140 (50mL) with 24 ounces of water. Drink 1/2 of the mixture at: 9:00 am (two hours before) Drink the rest of the mixture at: 10:00 am (one hour before) Please bring an updated list of all your medications, including IV Chemo Therapy over the counter and herbal supplements. For questions regarding your test please call [phone]. If you are taking any medications and you have questions, please call your primary care physician. documented in this encounter Progress Notes Jeanmarie Alfaro MD - 03/01/2016 10:49 AM CDT Shahnaz is a 70 year old White female who presents for hernia evaluation. The patient has noticed abulge. Pain has been present. . Associated with this is none. Pt has had previous ABD surgery including colectomy and incisional hernia repair. Patient does not report that increased activity/lifting causes pain. Employment does not require lifting. She reports feeling a sensation of fullness and bulging at the site of her previous hernia repair. She also notes strange migratory contraction-like sensations behind this area. She is concerned over the possibility of recurrence of fluid (aspirated immediately postop) or recurrence of her hernia. She is seen with her . ConstipationNo DysuriaNo CoughNo SmokingNo DiabetesNo Pt's chart has been reviewed for PMH, PSH, allergies, medications and social history. ROS: Pulm: No shortness of breath, dyspnea on exertion, cough, or hemoptysis CV: negative ABD: See chief complaint : negative Physical exam: Patient able to get up on table with mild difficulty. Head eyes, nose and mouth within normal limits. Sclera are clear No supraclavicular or cervical adenopathy noted. Neck shows no gross mass Respirations are regular and non labored Abdomen is abdomen is soft without significant tenderness, masses, organomegaly or guarding bowel sounds are positive and no caput medusa noted. Hernia is not clinically present in the region of her hernia repair. With the sit-ups/Valsalva, the tissues appeared to be completely intact as far as the abdominal wall is concerned. Her bulge appearsmore likely to be related to prominence and change in geometry of her overlying subcutaneous tissues. There may be some degree of fixation and resultant bulge/overhanging Imaging CT No, not since her hernia repair Assesment: Central abdominal bulge and pain following colectomy and incisional hernia repair Plan: At this point, there is no clinical evidence for recurrence of her hernia abdominal wall fascia and repair appears intact on exam. With her persistent symptoms and with her previous seroma that required aspiration, I think it is reasonable to further evaluate her with imaging. We did discuss ultrasound versus CT scan for imaging. The ultrasound was very quickly evaluate for seroma but would notevaluate for hernia very well. Additionally, CT scanning will evaluate for any imaging evidence for recurrence of her previous colon cancer. With all these considerations, she and her wish to proceed with CT of the abdomen with Valsalva to evaluate for hernia recurrence or seroma. Should the scan is negative for both of these possibilities, she would be left with weight loss or possibly liposuction. It may be worthwhile to pursue liposuction as an option as it could potentially be covered by insurance as this is a consequence of her previous surgeries and is for symptomatic control rather than cosmetics. Time spent with the patient with greater that 50% of the time in discussion was 20-30 minutes. Jeanmarie Alfaro MD 03/01/2016 10:49 AM Please route or send letter to: Primary Care Provider (PCP) and Include Progress Note HPI ROS Physical Exam Carlie Clark CMA - 03/01/2016 10:25 AM CDT HPI ROS (Review of Systems): Positive for System Review. System Review has been done Physical Exam documented in this encounter Plan of Treatment Not on filedocumented as of this encounter Results CT Abdomen Pelvis w Contrast (03/03/2016 11:20 AM CDT) Anatomical Region Laterality Modality Abdomen/Pelvis, SUBRAD CT BODY, UMP CT ABDOMEN PELVIS Computed Tomography Specimen (Source) Anatomical Location Collection Method / Collectio n Time Received Time / Laterality Volume Impressions 03/03/2016 1:33 PM CDT IMPRESSION: 1. Interval repair of the prominent ante rior abdominal wall hernia compared to prior CT. No evidence of new or recurrent hernia. 2. Fatty infiltration of the liver. 3. Nonobstructing right renal collecting system stones, unchanged since prior study. No left urinary tract calculi. No hydronephrosis. WM BROWNE MD Narrative 03/03/2016 1:[address] ABDOMEN AND PELVIS WITH CONTRAST 03/03/2016 11:20 AM HISTORY: Malignant neoplasm of ascending colon. Incisional hernia without obstruction or gangrene. COMPARISON: CT abdomen and pelvis 04/14/20. TECHNIQUE: Axial images from the lung ba ses to the symphysis are performed with additional coronal reform atted images. 100 mL of Isovue 370 are given intravenously. Oral contra st is also given. Exam performed during Valsalva maneuver. FINDINGS: The lung bases are clear. Abdomen: There is diffuse fatty infiltra tion of the liver. Nonobstructing right renal collecting sy stem stones are present. No hydronephrosis or ureteral calculi. No l eft hydronephrosis or collecting system stones. Remaining uppe r abdominal organs including the spleen, pancreas and adrenal glands are within normal limits. The bowel is unremarkable. No obstruction or diverticulitis. Partial resection of the cecum and ascending col on is noted. Previously noted anterior abdominal wall hernia has been surgically repaired since the prior CT. No new or recurrent hernia is appreciated. Pelvis: The bladder, uterus, ovaries and rectum are unremarkable. No enlarged pelvic lymph nodes or free flui d. Bone window examination demonstrates degenerative spine changes. No aggressive-appearing bone lesions are noted. Procedure Note Wm Browne MD - 03/03/2016Form atting of this note might be different from the original. CT ABDOMEN AND PELVIS WITH CONTRAST 03/03 11:20 AM HISTORY: Malignant neoplasm of ascending colon. Incisional hernia without obstruction or gangrene. COMPARISON: CT abdomen and pelvis 04/14/20 15. TECHNIQUE: Axial images from the lung ba ses to the symphysis are performed with additional coronal reform atted images. 100 mL of Isovue 370 are given intravenously. Oral contra st is also given. Exam performed during Valsalva maneuver. FINDINGS: The lung bases are clear. Abdomen: There is diffuse fatty infiltra tion of the liver. Nonobstructing right renal collecting sy stem stones are present. No hydronephrosis or ureteral calculi. No l eft hydronephrosis or collecting system stones. Remaining uppe r abdominal organs including the spleen, pancreas and adrenal glands are within normal limits. The bowel is unremarkable. No obstruction or diverticulitis. Partial resection of the cecum and ascending col on is noted. Previously noted anterior abdominal wall hernia has been surgically repaired since the prior CT. No new or recurrent hernia is appreciated. Pelvis: The bladder, uterus, ovaries and rectum are unremarkable. No enlarged pelvic lymph nodes or free flui d. Bone window examination demonstrates degenerative spine changes. No aggressive-appearing bone lesions are noted. IMPRESSION: 1. Interval repair of the prominent ante rior abdominal wall hernia compared to prior CT. No evidence of new or recurrent hernia. 2. Fatty infiltration of the liver. 3. Nonobstructing right renal collecting system stones, unchanged since prior study. No left urinary tract calculi. No hydronephrosis. WM BROWNE MD Jeanmarie Alfaro MD IMG CT ORDERABLES documented in this encounter Visit Diagnoses Diagnosis Malignant neoplasm of ascending colon (H ) - Primary Malignant neoplasm of ascending colon Incisional hernia, without obstruction o r gangrene Incisional hernia without mention of obs truction or gangrene Malignant neoplasm of ascending colon (H ) Malignant neoplasm of ascending colon Incisional hernia, without obstruction o r gangrene Incisional hernia without mention of obs truction or gangrene documented in this encounter Care Teams Community Relations Director Relationship Specialty Start Date End Date Liudmila David MD PCP - General Family Practice 02/12/14 1 12/06/19 Liudmila David MD Assigned PCP 10/12/15 documented as of this encounter
--- OUTSIDE RECORDS SUMMARY | 2022-08-18 09:30 | XMS_ITS | Encounter Summary ---
:1945 Author Organization [facility] Address [address] [place] [id number] Care Team Providers Name Role Phone Liudmila David MD Primary Care Provider Unavailable Reason for Visit Reason Onset Date Comments Orders 10/08/2015 Encounter Details Date Type Department Care Team Description 10/08/2015 Telephone [facility] ysicians Liudmila David MD Orders [address] [place] [address] [address] [place] [address] Social History Tobacco Use Types Packs/Day Years Used Date Smoking Tobacco: Former Cigarettes 0.5 15 Quit : 11/07/1995 Smokeless Tobacco: Never Alcohol Use Standard Drinks/Week Comments Yes 0 (1 standard drink = 0.6 oz pure alcoho l) rare - wine once in a while Sex Assigned at Date Recorded Female 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 Please sign if ok, thanks Analy HELPER documented in this encounter Plan of Treatment Not on filedocumented as of this encounter Visit Diagnoses Not on filedocumented in this encounter Care Teams Community Development Officer Relationship Specialty Start Date End Date Liudmila David MD PCP - General Family Practice 02/12/14 1 12/06/19 documented as of this encounter
--- OUTSIDE RECORDS SUMMARY | 2022-08-18 09:30 | XMS_ITS | Encounter Summary ---
:1945 Author Organization [facility] Address [address] [place] [address]. [place] [address] Care Team Providers Name Role Phone Liudmila David MD Primary Care Provider Unavailable Reason for Visit Reason Comments Pharyngitis Sore throat Urgent Care Encounter Details Date Type Department Care Team Description 07/12/2015 Office Visit [facility] Isaias Tony, Throat pain (Primary Urgent Care [place]) [address] [facility] [address] [place] [address] [phone] Social History Tobacco Use Types Packs/Day Years Used Date Smoking Tobacco: Former Cigarettes 0.5 15 Quit : 11/07/1995 Smokeless Tobacco: Never Alcohol Use Standard Drinks/Week Comments Yes 0 (1 standard drink = 0.6 oz pure alcoho l) rare - wine once in a while Sex Assigned at Date Recorded Female 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 documented as of this encounter Last Filed Vital Signs Vital Sign Reading Time Taken Comments Blood Pressure 110/60 07/12/2015 4:30 PM CDT Pulse 77 07/12/2015 4:30 PM CDT Temperature 37 ??C (98.6 ??F) 07/12/2015 4:30 PM CDT Respiratory Rate 18 07/12/2015 4:30 PM CDT Oxygen Saturation 99% 07/12/2015 4:30 PM CDT Inhaled Oxygen Concentration - - Weight 96.6 kg (213 lb) 07/12/2015 4:30 PM CDT Height 167.6 cm (5' 6) 07/12/2015 4:30 PM CDT Body Mass Index 34.38 07/12/2015 4:30 PM CDT documented in this encounter Progress Notes Isaias Tony MD - 07/13/2015 7:21 PM CDT SUBJECTIVE: 69 year old female with sore throat, myalgias, swollen glands, headache and fever for several days. No history of rheumatic fever. Other symptoms: nasal congestion and nasal blockage. OBJECTIVE: Vitals as noted above. Appears mild distress. Ears: normal Oropharynx: mild erythema Neck: supple and neck has FROM without masses Lungs: chest clear to IPPA and clear to IPPA Rapid Strep test is negative ASSESSMENT: 1. pharyngitis PLAN: Per orders. Gargle, use acetaminophen or other OTC analgesic, and take Rx fully as prescribed.Call if other family members develop similar symptoms. See prn. documented in this encounter Nursing Notes Jeanne Hrenandez CMA - 07/12/2015 4:32 PM CDT Chief Complaint Patient presents with ??? Pharyngitis Sore throat ??? Urgent Care Initial BP 110/60 mmHg Pulse 77 Temp(Src) 98.6 ??F (37 ??C) (Oral) Resp 18 Ht 5' 6 (1.676 m) Wt 213 lb (96.616 kg) BMI 34.40 kg/m2 SpO2 99% Estimated body mass index is 34.4 kg/(m^2) as calculated from the following: Height as of this encounter: 5' 6 (1.676 m). Weight as of this encounter: 213 lb (96.616 kg). BP completed using cuff size: regular, rt documented in this encounter Plan of Treatment Not on filedocumented as of this encounter Visit Diagnoses Diagnosis Throat pain - Primary documented in this encounter Care Teams Ophthalmic Medical Assistant Relationship Specialty Start Date End Date Liudmila David MD PCP - General Family Practice 02/12/14 1 12/06/19 documented as of this encounter
--- OUTSIDE RECORDS SUMMARY | 2022-08-18 09:30 | XMS_ITS | Encounter Summary ---
:1945 Author Organization [facility] Address [address] [place] [address] Care Team Providers Name Role Phone Liudmila David MD Primary Care Provider Unavailable Liudmila David MD Unavailable Unavailable Reason for Referral Diagnostic Imaging Other - Closed Specialty Diagnoses / Procedures Referred By Contact Refer red To Contact Diagnoses Pelvic pain in female Calculus of kidney Liudmila David MD [facility] [address] [address] [facility] [phone] [place] [address] Referral ID Status Reason Start Date Expiration Date Visits Requ ested Visits Authorized [id number] Closed 05/27/2016 05/27/2017 1 1 Reason for Visit Reason Comments Flank Pain Abdominal Pain Encounter Details Date Type Department Care Team Description 05/27/2016 Office Visit [facility] Liudmila David Flank pain (Primary Dx); Prateek Gatica MD Pelvic pain in female; [address] Calculus of kidney [address] [place] [address] Social History Tobacco Use Types Packs/Day Years Used Date Smoking Tobacco: Former Cigarettes 0.5 15 Quit : 11/07/1995 Smokeless Tobacco: Never Alcohol Use Standard Drinks/Week Comments Yes 0 (1 standard drink = 0.6 oz pure alcoho l) rare - wine once in a while Sex Assigned at Date Recorded Female 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 Liudmila David MD - 05/27/2016 11:53 AM CDT SUBJECTIVE: 70 year old female presents with the following concern: One week history of low back ache and pressure in lower abdomen Feels crampy like a period When she urinated today, she thought there was a twinge of blood on the tissue- Urine seems more yellow No dysuria No frequency Voiding normally No bowel symptoms No fever or chills Camping last week- no known injury- Past medical history significant for colon resection- carcinoid tumor- colonoscopy 2014- normal. Multiple renal calculi- under care of Dr Jackson- scheduled for a renal ultrasound in a couple of months Family history: Significant for cancer- mother had colon, endometrial Patient Active Problem List Diagnosis ??? History of colonic polyps ??? Other acne ??? Diverticulosis of large intestine ??? Osteoarthritis ??? 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 Obesity ??? Essential hypertension, benign ??? ACP (advance care planning) ??? Calculus of kidney ??? Health Halfway ??? History of malignant carcinoid tumor Past Surgical History Procedure Laterality Date ??? Hc remv cataract extracap,insert lens 03/10/04 right ??? Hc remv cataract extracap,insert lens 04/[address] Keith ??? 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 ? [...] 07/31/2014 Procedure: LAPAROSCOPIC ASSISTED COLECTOMY; Surgeon: Jerry Lnae MD; Location: OR ? ? Hc removal of tonsils,<12 y/o 4 Tonsils <12y.o. ??? Us endovenous ablation therapy incompetent 1 vein left Bilateral 2011 ??? Herniorrhaphy incisional (location) N/A 05/02/2015 Procedure: HERNIORRHAPHY INCISIONAL (LOCATION); Surgeon: Cheikh Barcenas MD; Location: [facility] OR ??? Colonoscopy N/A 10/20/2015 3 year recheck ??? Placement of dental implant(s) 06/23/2015 clear choice ??? Cataract iol, rt/lt 2003 Family History Problem Relation Age of Onset ??? Cancer Brother colon ??? Cancer - colorectal Mother ??? Cancer Mother 91 endometrial ??? Colon Cancer Mother ??? Cancer - colorectal Father ??? Colon Cancer Father ??? Breast Cancer Paternal Grandmother ??? Colon Cancer Brother ??? Colon Cancer Brother Current Outpatient Prescriptions Medication ??? amLODIPine (NORVASC) 2.5 MG tablet ??? hydrochlorothiazide (HYDRODIURIL) 25 MG tablet ??? Multiple Vitamins-Minerals (MULTIVITAMIN OR) No current facility-administered medications for this visit. Review Of Systems Ears/Nose/Throat: negative Respiratory: No shortness of breath, dyspnea on exertion, cough, or hemoptysis Cardiovascular: negative Gastrointestinal: lower abdominal cramping- Genitourinary: ?? Vaginal bleeding Musculoskeletal: negative Neurologic: negative Psychiatric: negative Hematologic/Lymphatic/Immunologic: negative Endocrine: negative OBJECTIVE: BP 136/62 mmHg Pulse 88 Temp(Src) 97.6 ??F (36.4 ??C) (Oral) Ht 1.689 m (5' 6.5) Wt 96.344 kg (212 lb 6.4 oz) BMI 33.77 kg/m2 SpO2 98% The abdomen is soft without tenderness, guarding, mass or organomegaly. Bowel sounds are normal. No CVA tenderness or inguinal adenopathy noted. Vagina and vulva are normal; no vaginal blood or discharge. Cervix normal. Pap smear obtainedUterus anteverted and mobile, normal in size and shape without tenderness. Adnexa not palpable. UA: NORMAL PELVIC US: 11 MM ENDOMETRIAL THICKNESS, irregular (?? Polyp) RENAL US: MULTIPLE RENAL CALCULI, NONOBSTRUCTING Assessment Lower abdominal cramping- lower abdominal discomfort of uncertain etiology PLAN: Referral to OBGYN with abnormal endometrium Ibuprofen for symptoms of cramping Discussion in office preceding US results, was to follow up in one week (follow up will be with gynecology Renal us result to be sent to Dr Jackson ... documented in this encounter Nursing Notes July Keenan MA - 05/27/2016 12:17 PM CDT Telephone call made to schedule Shahnaz Glasgow for the following: Ultrasound: Pelvic and Renal Date: 05/27/2016 Time: 100PM Place: [facility] July Keenan MA - 05/27/2016 11:44 AM CDT Shahnaz is here today for flank pain with lower generalized abd pain. Pre-visit planning discussed: Immunizations - up to date Mammogram - up to date Colonoscopy - up to date Asthma - na PHQ9/JAY - na Fall Risk - today Questioned patient about current smoking habits. Pt. quit smoking some time ago. Body mass index is 33.77 kg/(m^2). BP Cuff right Arm lrg Cuff PULSE regular My Chart: accepts documented in this encounter Plan of Treatment Not on filedocumented as of this encounter Procedures Procedure Name Priority Date/Time Associated Comments Diagnosis THINPREP PAP RFLX HPV Routine 05/27/2016 1:25 PM Pelvic pain i n Results for this MRNA E6/E7 ([facility]) CDT female procedure are in the results section. HCL URINALYSIS, ROUTINE Routine 05/27/2016 11:56 Flank p ain Results for this AM CDT Pelvic pain in procedure are in female the results section. US PELVIC Routine 05/27/2016 Pelvic pain in Results for t his TRANSABDOMINAL AND female procedure are in TRANSVAGINAL Calculus of kidney the resul ts section. US RENAL COMPLETE Routine 05/27/2016 Pelvic pain in Results for this female procedure are in Calculus of kidney the resul ts section. documented in this encounter Results ThinPrep Pap and HPV (mRNA E6/E7){HPV-REFLEX} ([facility]) (05/27/2016 1:25 PM CDT) [facility] Method Time Signature Clinical PARA 1 [facility] LMP PM [facility] Last Pap 51,214 [facility] Diagnosis [facility] Prev Bx Dx NONE GIVEN [facility] Source Cervix [facility] Statement of SEE COMMENT [facility] Comment: SATISFACTORY FOR EVALUATION Descriptive Diagnosis SEE COMMENT [facility] Comment: Negative for intraepithelial lesion or m alignancy. Atrophic pattern; predominantly parabasa l cells Lang Interpreter: SEE COMMENT [facility] Comment: ASM, CT(ASCP) CT Screening location: [facility] [address] [place], [place] ??[address] Specimen Anatomical Collection Method Collection Time Receive d Time (Source) Location / / Volume Laterality Cervical swab 05/27/2016 1:25 PM 05/28/20 16 3:41 (specimen) CDT AM CDT Resulting Agency Comment Performing Organization Information: ? [place] ? [facility] ? [address] [place], [place] [address] ? Juantio Hardy M.D. Liudmila David MD LAB - NON-BEAKER NON-BLOOD Performing Organization Address City/State/ZIP Code Phon e Number [facility] [address] [place], [place] [address] [employer] [address] [place], [place] [address] HCL Urinalysis, Routine ([facility]) (05/27/2016 11:56 AM CDT) athologist Signature Color Urine Yellow [facility] Appearance Clear [facility] Urine Glucose Urine Neg neg mg/dL [facility] Bilirubin Urine Neg neg [facility] Ketones Urine Neg neg mg/dL [facility] Specific 1.020 [facility] [place] Blood Urine Trace neg [facility] pH Urine Other 5.0 - 7.0 [facility] pH Comment: trace Albumin Urine neg neg - neg mg/dL [facility] RESEARCH PROGRAM ASSISTANT AL Urobilinogen Urine 0.2 0.2 - 1.0 EU/dL [facility] I NTERNAL Nitrite Urine Neg NEG [facility] Leukocyte Esterase neg neg - neg [facility] INTERNA L Wbc, Urine Micro 0 neg - 2 [facility] RBC Micro Urine 0 neg - 2 [facility] EP/HPF 0 [facility] Bacteria Urine 0 neg - neg [facility] Casts/LPF 0 [facility] Miscellaneous 0 [facility] Specimen (Source) Anatomical Collection Method Collection Time Re ceived Time Location / / Volume Laterality 05/27/2016 11:56 AM CDT Liudmila David MD LABORATORY Performing Organization Address City/State/ZIP Code Phon e Number [facility] US Renal Complete (05/27/2016) Anatomical Region Laterality Modality Abdomen/Pelvis Other Narrative 05/27/2016 [facility] * Fax: [phone] [facility] [address] [place] [address] [place] [address] Age: 70 Y Work Phone: Dept No.: [id number] PEE SHAHNAZ M : 1945 Ho me Chart # Gender: F Req. Phys: Liudmila David MD Clinic M RN: Clinic: [place] c#: [id number] Exam: US KIDNEY BILATERAL Exam Date: Copy To: Jared Jackson MD RENAL ULTRASOUND 05/27/2016 2:01 PM HISTORY: Pelvic pain, calculus of kidney . COMPARISON: None. FINDINGS: Right Kidney: The kidney is normal in si ze and cortical thickness. No renal masses are seen. No hydronephrosis is present. At least three shadowing calcif ied stones are seen in the right upper, mid and lower kidney. L argest is about 0.5 cm in the mid right kidney. Left Kidney: The kidney is normal in siz e and cortical thickness. No renal masses are seen. No hydronephro sis. Multiple shadowing stones largest of which is in the lower pole about 0.4 cm diameter. The visualized portions of the urinary b ladder appear normal. IMPRESSION: 1. Bilateral renal calculi. 2. No evidence of hydronephrosis. Performed by: CB Transcribed By: MO on: 05/27/2016 2:05 P M CDT Finalized By: IDALIA KINGSLEY M.D. on: 2:54 PM CDT Dictated By: IDALIA KINGSLEY M.D. by: NNEKA Thank You for choosing [facility] Page 1 of 1 Liudmila David MD IMG US ORDERABLES US Pelvic Complete with Transvaginal (05/27/2016) Anatomical Region Laterality Modality Abdomen/Pelvis Other Narrative 05/27/2016 [facility] * Fax: [phone] [facility] [address], [place] [phone] [place] [address] Age: 70 Y Work Phone: Dept No.: [id number] SHAHNAZ GLASGOW Anshul : 1945 [place] Chart # Gender: F Req. Phys: Liudmila David MD Clinic M RN: Clinic: [place] c#: [id number] Exam: US PELVIS WITH TRANSVAGINAL Exam D ate: 05/27/2016 PELVIC ULTRASOUND WITH ENDOVAGINAL TRANS DUCER 05/27/2016 1:44 PM HISTORY: Pelvic pain, calculus of kidney . TECHNIQUE: Endovaginal sonography was ad ded to the transabdominal exam to better evaluate the uterus and o varies because of inadequate bladder fullness. COMPARISON: None. FINDINGS: Uterus is small, 5.7 cm long a nd retroverted. There is a small intramural leiomyoma uterine fun dus about 1.4 cm diameter. Endometrium is 11 mm thick and heterogeneous with complex somewhat cystic appearing endome trial tissue. Ovaries are atrophic with no focal lesio ns. There is no free fluid in the cul-de-sac. IMPRESSION: 1. Atrophic uterus and ovaries. 2. Heterogeneous somewhat cystic endomet rium of indeterminate etiology. The possibility of an endometr ial polyp should be considered. Performed by: ULISES Transcribed By: MO on: 05/27/2016 2:47 P M CDT Finalized By: IDALIA KINGSLEY M.D. on: 2:54 PM CDT Dictated By: IDALIA KINGSLEY M.D. by: NNEKA Thank You for choosing [facility] Page 1 of 1 Liudmila David MD IMG US ORDERABLES documented in this encounter Visit Diagnoses Diagnosis Flank pain - Primary Abdominal pain, unspecified site Pelvic pain in female Unspecified symptom associated with fema le genital organs Calculus of kidney documented in this encounter Care Teams Sales And Marketing Specialist Relationship Specialty Start Date End Date Liudmila David MD PCP - General Family Practice 02/12/14 1 12/06/19 Liudmila David MD Assigned PCP 10/12/15 documented as of this encounter
--- OUTSIDE RECORDS SUMMARY | 2022-08-18 09:30 | XMS_ITS | Encounter Summary ---
:1945 Author Organization [facility] Address [address] [place] [address] Care Team Providers Name Role Phone Liudmila David MD Primary Care Provider Unavailable Reason for Visit Reason Onset Date Comments Other 05/09/2015 Encounter Details Date Type Department Care Team Description 05/09/2015 Telephone [facility] REPORTING Leny Peter, Other [address] [place] [address] [address] [place], [place] [address] (Wo rk) Social History Tobacco Use Types Packs/Day Years Used Date Smoking Tobacco: Former Cigarettes 0.5 15 Quit : 11/07/1995 Smokeless Tobacco: Never Alcohol Use Standard Drinks/Week Comments Yes 0 (1 standard drink = 0.6 oz pure alcoho l) rare - wine once in a while Sex Assigned at Date Recorded Female 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 Jiménez Procedure: Incisional Herniorrhaphy with Mesh Pt concerns: yes, had called the office 2 days ago and had never gotten a call back; called surgeon plant operations manager that evening and received answer to questions about constipation; no ongoing issues at this time. Recommendations reviewed: Apologized for lost message which apparently never got to our triage nurses. Reassured that patient may certainly call again in the future if any issues arise. Leny Peter PA-C documented in this encounter Plan of Treatment Not on filedocumented as of this encounter Visit Diagnoses Not on filedocumented in this encounter Care Teams Party Host Relationship Specialty Start Date End Date Liudmila David MD PCP - General Family Practice 02/12/14 1 12/06/19 documented as of this encounter
--- OUTSIDE RECORDS SUMMARY | 2022-08-18 09:30 | XMS_ITS | Encounter Summary ---
:1945 Author Organization [facility] Address [address] [place] [id number] Care Team Providers Name Role Phone Liudmila David MD Primary Care Provider Unavailable Liudmila David MD Unavailable Unavailable Reason for Visit Reason Comments Pre-Op Exam Encounter Details Date Type Department Care Team Description 06/23/[address] [facility] Liudmila David Preope rative examination (Primary Dx); Prateek Gatica MD Abnormal ultrasound of endom etrium; [address] Benign essential hypertensio n [address] [place] [address] Social History Tobacco Use Types Packs/Day Years Used Date Smoking Tobacco: Former Cigarettes 0.5 15 Quit : 11/07/1995 Smokeless Tobacco: Never Alcohol Use Standard Drinks/Week Comments Yes 0 (1 standard drink = 0.6 oz pure alcoho l) rare - wine once in a while Sex Assigned at Date Recorded Female 10/17/2018 7:14 PM [employer] documented as of this encounter Last Filed Vital Signs Vital Sign Reading Time Taken Comments Blood Pressure 118/74 06/23/2016 11:22 AM CDT Pulse 82 06/23/2016 11:22 AM CDT Temperature 36.4 ??C (97.6 ??F) 06/23/2016 11:22 AM CDT Respiratory Rate - - Oxygen Saturation - - Inhaled Oxygen Concentration - - Weight 97.3 kg (214 lb 6.4 oz) 06/23/2016 11:22 AM CDT Height 168.3 cm (5' 6.25) 06/23/2016 11:22 AM CDT Body Mass Index 34.34 06/23/2016 11:22 AM CDT documented in this encounter Progress Notes Liudmila David MD - 06/23/2016 11:25 AM CDT [facility] [address] [place] [address]. [address] [facility] [id number] Dept: [phone] PRE-OP EVALUATION: Today's date: 06/23/2016 Shahnaz Phelps (: 1945) presents for pre-operative evaluation assessment as requestedby Dr. Moreira. She requires evaluation and anesthesia risk assessment prior to undergoing surgery/procedure for treatment of Endometrial thickening . Proposed procedure: D $ C Date of Surgery/ Procedure: 06/29/2016 Time of Surgery/ Procedure: 12:15PM Hospital/Surgical Facility: [facility] Fax number for surgical facility: Primary Physician: Liudmila David Type of Anesthesia [...] YOUR RELATIVES EVER HAD PROBLEMS WITH ANESTHESIA? In past, nausea and vomiting after surgery (no problems the last two surgeries) 14. NO - Do you have sleep apnea, excessive snoring or daytime drowsiness? 15. NO - Do you have any prosthetic heart valves? 16. NO - Do you have prosthetic joints? 17. NO - Is there any chance that you may be ? HPI: Brief HPI related to upcoming procedure: increased endometrial thickness on pelvic ultrasound MEDICAL HISTORY: Patient Active Problem List Diagnosis Date Noted ??? History of malignant carcinoid tumor 04/17/2015 Priority: Medium ??? Calculus of kidney 03/28/2012 Priority: Medium ??? Essential hypertension, benign 02/25/2009 Priority: Medium [...] automated process. Provider to review ??? Other acne Priority: Medium ??? History of colonic polyps Priority: Medium Problem list name updated by automated process. Provider to review ??? 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 ACP (advance care planning) 02/26/2012 Priority: Low Advance Care Planning 02/18/2016: ACP Review of Chart / Resources Provided: Reviewed chart for advance care plan. Shahnaz Phelps has no plan or code status on file. Discussed available resources and provided with information. Confirmed code status reflects current choices pending further ACP discussions. Confirmed/documented legally designated decision makers. Added by July Keenan Diagnosis updated by automated process. Provider to review and confirm. Past Medical History Diagnosis Date ??? Other acne ??? Need for prophylactic hormone replacement therapy (postmenopausal) ??? Allergic rhinitis due to pollen ??? Hypertension ??? PONV (postoperative nausea and vomiting) vomitted for 12 hours after surgery ??? 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 Kidney stones Past Surgical History Procedure Laterality Date ??? [...] ASSISTED COLECTOMY; Surgeon: Jerry Lane MD; Location: OR ? ? Hc removal of tonsils,<12 y/o 1953 Tonsils <12y.o. ??? Us endovenous ablation therapy incompetent 1 vein left Bilateral 2011 ??? Herniorrhaphy incisional (location) N/A 05/02/2015 Procedure: HERNIORRHAPHY INCISIONAL (LOCATION); Surgeon: Cheikh Barcenas MD; Location: [facility] OR ??? Colonoscopy N/A 10/20/2015 3 year recheck ??? Placement of dental implant(s) 06/23/2015 clear choice ??? Cataract iol, rt/lt 2003 Current Outpatient Prescriptions Medication Sig Dispense Refill ??? amLODIPine (NORVASC) 2.5 MG tablet Take 3 tablets (7.5 mg) by mouth daily 270 tablet 1 ??? hydrochlorothiazide (HYDRODIURIL) 25 MG tablet Take 1 tablet (25 mg) by mouth daily 90 tablet 1 ??? Multiple Vitamins-Minerals (MULTIVITAMIN OR) Take 1 tablet by mouth daily OTC products: no recent use of OTC ASA, NSAIDS or Steroids Allergies Allergen Reactions ??? Amoxicillin Itching rash ??? Imidazole Antifungals hives ??? Penicillins hives Latex Allergy: NO Social History Substance Use Topics ??? Smoking status: Former Smoker -- 0.50 packs/day for 15 years Quit date: 11/07/1995 ??? Smokeless tobacco: Never Used ??? Alcohol Use: 0.0 oz/week 0 Standard drinks or equivalent per week Comment: rare - wine once in a while History Drug Use No REVIEW OF SYSTEMS: C: NEGATIVE for fever, chills, change in weight E/M: HISTORY OF LOOSE TOOTH- if intubating R: NEGATIVE for significant cough or SOB CV: NEGATIVE for chest pain, palpitations or peripheral edema EXAM: BP 118/74 mmHg Pulse 82 Temp(Src) 97.6 ??F (36.4 ??C) (Oral) Ht 1.683 m (5' 6.25) Wt 97.251kg (214 lb 6.4 oz) BMI 34.33 kg/m2 GENERAL APPEARANCE: healthy, alert and no distress [...] sounds normal NEURO: Normal strength and tone, mentation intact and speech normal DIAGNOSTICS: EKG: Normal Sinus Rhythm, unchanged from previous tracings HEMOGLOBIN Date Value Ref Range Status 06/23/2016 13.4 11.7 - 15.7 g/dL Final ] Recent Labs Lab Test 02/18/16 1121 02/18/16 1118 10/06/15 1249 10/06/15 1227 04/17/15 1405 04/17/15 1349 02/27/15 1148 02/27/15 1145 HGB -- -- -- 14.1 -- 13.3 -- 13.9 PLT -- -- -- 233 -- -- -- 318 NA 140 -- -- -- 142 -- -- -- POTASSIUM 3.7 -- 3.6 -- 3.5 -- -- -- CR 0.66 -- -- -- 0.78 -- -- -- A1C -- 5.7 -- -- -- -- 5.6 -- Potassium is pending IMPRESSION: Reason for surgery/procedure: abnormal endometrial thickness on pelvic ultrasound The proposed surgical procedure is considered LOW risk. REVISED CARDIAC RISK INDEX The patient has the following serious cardiovascular risks for perioperative complications such as (UT, PE, VFib and 3?? AV Block): No serious cardiac risks INTERPRETATION: 1 risks: Class II (low risk - 0.9% complication rate) The patient has the following additional risks for perioperative complications: No identified additional risks ICD-10-CM 1. Preoperative examination Z01.818 EKG 12-lead complete w/read - Clinics POTASSIUM ([facility]) HEMOGRAM/PLATELET ([facility]) VENOUS COLLECTION 2. Abnormal ultrasound of endometrium R93.5 EKG 12-lead complete w/read - Clinics POTASSIUM ([facility]) HEMOGRAM/PLATELET ([facility]) VENOUS COLLECTION 3. Benign essential hypertension I10 EKG 12-lead complete w/read - Clinics RECOMMENDATIONS: --Approval given to proceed with proposed procedure, without further diagnostic evaluation Take blood pressure medications early the morning of surgery Signed Electronically by: Liudmila David MD Copy of this evaluation report is provided to requesting physician. [facility] Preop Guidelines documented in this encounter Nursing Notes July Keenan MA - 06/23/2016 11:24 AM CDT Shahnaz is here today for a pre op exam, D & C. documented in this encounter Plan of Treatment Not on filedocumented as of this encounter Procedures Procedure Name Priority Date/Time Associated Diagnosis Comme nts HC VENOUS Routine 06/23/2016 12:05 Preoperative COLLECTION PM CDT examination Abnormal ultrasound of endometrium POTASSIUM Routine 06/23/2016 12:00 Preoperative Results for this PM CDT examination procedure are in Abnormal ultrasound the resu lts of endometrium section. EKG 12-LEAD Routine 06/23/2016 11:55 Benign essential Results for this COMPLETE W/READ - AM CDT hypertension procedure are in CLINICS Preoperative the results examination section. Abnormal ultrasound of endometrium ZZCL AFF Routine 06/23/2016 Preoperative Results for thi s HEMOGRAM/PLATELET examination procedure are in Abnormal ultrasound the resu lts of endometrium section. documented in this encounter Results POTASSIUM ([facility]) (06/23/2016 12:00 PM CDT) P athologist Signature Potassium 3.6 3.5 - 5.3 [facility] mmol/L [facility] Specimen Anatomical Collection Method Collection Time Receive d Time (Source) Location / / Volume Laterality Blood specimen 06/23/2016 12:00 6 6:38 (specimen) PM CDT AM CDT Resulting Agency Comment Performing Organization Information: ? CB ? [facility] ? [address] [facility], [place] [address] ? Juanito Hardy M.D. Liudmila David MD LAB - BLOOD ORDERABLES Performing Organization Address City/State/ZIP Code Phon e Number [facility] [address] [place], [place] [address] [facility] [address] [place], [place] [address] EKG 12-lead complete w/read - Clinics (06/23/2016 11:55 AM CDT) Narrative This result has an attachment that is no t available. Liudmila David MD ECG ORDERABLES Performing Organization Address City/[facility]/ZIP Code Phon e Number [facility] HEMOGRAM/PLATELET ([facility]) (06/23/2016) P athologist Signature WBC 6.1 4.0 - 11 [facility] 10*9/L RBC Count 4.15 3.8 - 5.2 [facility] 10*12/L Hemoglobin 13.4 11.7 - 15.7 [facility] g/dL Hematocrit 39.5 35.0 - 47.0 [facility] % MCV 95.1 78 - 100 fL [facility] MCH 32.3 26 - 33 pg [facility] MCHC 33.9 31 - 36 [facility] g/dL RDW 11.1 % [facility] Platelet Count 264 150 - 375 [facility] 10^9/L Specimen (Source) Anatomical Location Collection Method / Collectio n Time Received Time / Laterality Volume 06/23/2016 Liudmila David MD LABORATORY Performing Organization Address City/State/ZIP Code Phon e Number [facility] documented in this encounter Visit Diagnoses Diagnosis Preoperative examination - Primary Preoperative examination, unspecified Abnormal ultrasound of endometrium Nonspecific (abnormal) findings on radio logical and other examination of abdominal area, including retroperitoneum Benign essential hypertension Essential hypertension, benign documented in this encounter Care Teams Service Desk Team Lead Relationship Specialty Start Date End Date Liudmila David MD PCP - General Family Practice 02/12/14 1 12/06/19 Liudmila David MD Assigned PCP 10/12/15 documented as of this encounter
--- OUTSIDE RECORDS SUMMARY | 2022-08-18 09:30 | XMS_ITS | Encounter Summary ---
:1945 Author Organization [facility] Address [address] [place] [id number] Care Team Providers Name Role Phone Liudmila David MD Primary Care Provider Unavailable Reason for Visit Auth/Cert - Closed Specialty Diagnoses / Procedures Referred By Contact Refer red To Contact Surgery Diagnoses incisional hernia Rh Periop Services Procedures HERNIORRHAPHY INCISIONAL (LOCATION) [address] [place], [place] [phone] Phone: Fax: Referral ID Status Reason Start Date Expiration Date Visits Requ ested Visits Authorized [id number] Closed 1 1 Encounter Details Date Type Department Care Team Description 05/02/2015 Hospital Encounter [facility] Hunter Anders Ve ntral hernia [place] PreOP/PostOP MD Brendan without obstruction [address] or gangrene (Primary [place], [place] BLVD Dx) [id number] [place], [place] [phone] [id number] Social History Tobacco Use Types Packs/Day Years Used Date Smoking Tobacco: Former Cigarettes 0.5 15 Quit : 11/07/1995 Smokeless Tobacco: Never Alcohol Use Standard Drinks/Week Comments Yes 0 (1 standard drink = 0.6 oz pure alcoho l) rare - wine once in a while Sex Assigned at Date Recorded Female 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 of 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 encounter Last Filed Vital Signs Vital Sign Reading Time Taken Comments Blood Pressure 133/66 05/02/2015 4:50 PM CDT Pulse - - Temperature 37.1 ??C (98.8 ??F) 05/02/2015 4:50 PM CDT Respiratory Rate 16 05/02/2015 4:50 PM CDT Oxygen Saturation 95% 05/02/2015 4:50 PM CDT Inhaled Oxygen Concentration - - Weight 97.1 kg (214 lb) 05/02/2015 11:43 AM CDT Height 168.9 cm (5' 6.5) 05/02/2015 11:43 AM CDT Body Mass Index 34.02 05/02/2015 11:43 AM CDT documented in this encounter Discharge Instructions Discharge InstructionsLilly Mccray RN - 05/02/2015 3:36 PM CDT HOME CARE FOLLOWING HERNIA REPAIR Aleena Ortiz, Tara Smith, Anna Alfaro, R. Nereida???Lenin Altamirano DIET: No restrictions. Increased fluid intake is recommended. While taking pain medications, increase dietary fiber or add a fiber supplementation like Metamucil or Citrucel to help prevent constipation - a possible side effect of pain medications. NAUSEA: If nauseated from the anesthetic/pain meds; rest in bed, get up cautiously with assistance, and drink clear liquids (juice, tea, broth). ACTIVITY: Light Activity -- you may immediately be up and about as tolerated. Driving -- you may drive when comfortable and off narcotic pain medications. Light Work -- resume when comfortable off pain medications. (If you can drive, you probably can work.) Strenuous Work/Activity -- limit lifting to 20 pounds for 3 weeks. Active Sports (running, biking, etc.) -- cautiously resume after 3 weeks. INCISIONAL CARE: ??? If you have a dressing in place, keep clean and dry for 48 hours; you may replace the gauze if it becomes soiled. ??? After 48 hours you may remove the dressing and shower. Do not submerse incision in water for 1 week. ??? If you have a Dermabond dressing (a type of skin glue), you may shower immediately. ??? Sutures will absorb and need not be removed. ??? If present, leave the steri-strips (white paper tapes) in place till they fall off. ??? If present, leave Dermabond glue in place until it wears/flakes off. ??? Expect a variable amount of swelling/black and blue discoloration that may involve the penis/scrotum or labia. ??? Some numbness around the incision is common. ??? A lump/ridge under the incision is normal and will gradually resolve. DISCOMFORT: Local anesthetic placed at surgery should provide relief for 4-8 hours. Begin taking pain pills before discomfort is severe. Take the pain medication with some food, when possible, to minimize side effects. Intermittent use of ice packs to the hernia repair site may help during the first 48 hours. Expect gradual improvement. RETURN APPOINTMENT: Schedule a follow-up visit 1-3 weeks post-op. Office CONTACT US IF THE FOLLOWING DEVELOPS: 1. A fever that is above 101?? 2. If there is a large amount of drainage, bleeding, or swelling. 3. Severe pain that is not relieved by your prescription. 4. Drainage that is thick, cloudy, yellow, green or white. 5. Any other questions not answered by ???Frequently Asked Questions?? sheet. FREQUENTLY ASKED QUESTIONS: Q: How should my incision look? A: Normally your incision will appear slightly swollen with light redness directly along the incision itself as it heals. It may feel like a bump or ridge as the healing/scarring happens, and over time(3-4 months) this bump or ridge feeling should slowly go away. In general, clear or pink watery drainage can be normal at first as your incision heals, but should decrease over time. Q: How do I know if my incision is infected? A: Look at your incision for signs of infection, like redness around the incision spreading to surrounding skin, or drainage of cloudy or foul-smelling drainage. If you feel warm, check your temperature to see if you are running a fever. If any of these things occur, please notify the nurse at our office. We may need you to come into the office for an incision check. Q: How do I take care of my incision? A: If you have a dressing in place - Starting the day after surgery, replace the dressing 1-2 times a day until there is no further drainage from the incision. At that time, a dressing is no longer needed. Try to minimize tape on the skin if irritation is occurring at the tape sites. If you have significant irritation from tape on the skin, please call the office to discuss other method of dressing your incision. Small pieces of tape called ???steri-strips?? may be present directly overlying your incision; these may be removed 10 days after surgery unless otherwise specified by your surgeon. If these tapes start to loosen at the ends, you may trim them back until they fall off or are removed. A: If you had ???Dermabond?? tissue glue used as a dressing (this causes your incision to look shiny with a clear covering over it) - This type of dressing wears off with time and does not require more dressings over the top unless it is draining around the glue as it wears off. Do not apply ointments or lotions over the incisions until the glue has completely worn off. Q: There is a piece of tape or a sticky ???lead?? still on my skin. Can I remove this? A: Sometimes the sticky ???leads?? used for monitoring during surgery or for evaluation in the emergency department are not all removed while you are in the hospital. These sometimes have a tab or metal dot on them. You can easily remove these on your own, like taking off a band-aid. If there is a gel substance under the ???lead?? , simply wipe/clean it off with a washcloth or paper towel. Q: What can I do to minimize constipation (very hard stools, or lack of stools)? A: Stay well hydrated. Increase your dietary fiber intake or take a fiber supplement -with plenty ofwater. Walk around frequently. You may consider an ijfy-nar-znecyvz stool-softener. Your Pharmacist can assist you with choosing one that is stocked at your pharmacy. Constipation is also one of the most common side effects of pain medication. If you are using pain medication, be pro-active and try toPREVENT problems with constipation by taking the steps above BEFORE constipation becomes a problem. Q: What do I do if I need more pain medications? A: Call the office to receive refills. Be aware that certain pain meds cannot be called into a pharmacy and actually require a paper prescription. A change may be made in your pain med as you progress thru your recovery period or if you have side effects to certain meds. --Pain meds are NOT refilled after 5pm on weekdays, and NOT AT ALL on the weekends, so please look ahead to prevent problems. Q: Why am I having a hard time sleeping now that I am at home? A: Many medications you receive while you are in the hospital can impact your sleep for a number of days after your surgery/hospitalization. Decreased level of activity and naps during the day may alsomake sleeping at night difficult. Try to minimize day-time naps, and get up frequently during the day to walk around your home during your recovery time. Sleep aides may be of some help, but are not recommended for long-term use. Q: I am having some back discomfort. What should I do? A: This may be related to certain positioning that was required for your surgery, extended periods of time in bed, or other changes in your overall activity level. You may try ice, heat, acetaminophen,or ibuprofen to treat this temporarily. Note that many pain medications have acetaminophen in them and would state this on the prescription bottle. Be sure not to exceed the maximum of 4000mg per day of acetaminophen. If the pain you are having does not resolve, is severe, or is a flare of back pain you have had onother occasions prior to surgery, please contact your primary physician for further recommendations or for an appointment to be examined at their office. Q: Why am I having headaches? A: Headaches can be caused by many things: caffeine withdrawal, use of pain meds, dehydration, high blood pressure, lack of sleep, over-activity/exhaustion, flare-up of usual migraine headaches. If youfeel this is related to muscle tension (a band-like feeling around the head, or a pressure at the low-back of the head) you may try ice or heat to this area. You may need to drink more fluids (try electrolyte drink like Gatorade), rest, or take your usual migraine medications. If your headaches do not resolve, worsen, are accompanied by other symptoms, or if your blood pressure is high, please call your primary physician for recommendation and/or examination. Q: I am unable to urinate. What do I do? A: A small percentage of people can have difficulty urinating initially after surgery. This includesbeing able to urinate only a very small amount at a time and feeling discomfort or pressure in the very low abdomen. This is called ???urinary retention?? , and is actually an urgent situation. Proceedto your nearest Emergency department for evaluation (not an Urgent Care Center). Sometimes the bladder does not work correctly after certain medications you receive during surgery, or related to certain procedures. You may need to have a catheter placed until your bladder recovers. When planning to goto an Emergency department, it may help to call the ER to let them know you are coming in for this problem after a surgery. This may help you get in quicker to be evaluated. If you have symptoms of a urinary tract infection, please contact your primary physician for the proper evaluation and treatment. If you have other questions, please call the office Tuesday thru Tuesday between 8am and 5pm to discuss with the nurse or physician recovery assistant. # There is a surgeon LINEN SORTER on weekday evenings and over the weekend in case of urgent need only, andmay be contacted at the same number. If you are having an emergency, call 911 or proceed to your nearest emergency department. GENERAL ANESTHESIA OR SEDATION ADULT DISCHARGE INSTRUCTIONS SPECIAL PRECAUTIONS FOR 24 HOURS AFTER SURGERY IT IS NOT UNUSUAL TO FEEL LIGHT-HEADED OR FAINT, UP TO 24 HOURS AFTER SURGERY OR WHILE TAKING PAIN MEDICATION. IF YOU HAVE THESE SYMPTOMS; SIT FOR A FEW MINUTES BEFORE STANDING AND HAVE SOMEONE ASSIST YOU WHEN YOU GET UP TO WALK OR USE THE BATHROOM. YOU SHOULD REST AND RELAX FOR THE NEXT 24 HOURS AND YOU MUST MAKE ARRANGEMENTS TO HAVE SOMEONE STAY WITH YOU FOR AT LEAST 24 HOURS AFTER YOUR DISCHARGE. AVOID HAZARDOUS AND STRENUOUS ACTIVITIES. DO NOTMAKE IMPORTANT DECISIONS FOR [address] ANY VEHICLE OR OPERATE MECHANICAL EQUIPMENT FOR 24 HOURS FOLLOWING THE END OF YOUR SURGERY. EVEN THOUGH YOU MAY FEEL NORMAL, YOUR REACTIONS MAY BE AFFECTED BY THE MEDICATION YOU HAVE RECEIVED. DO NOT DRINK ALCOHOLIC BEVERAGES FOR 24 HOURS FOLLOWING YOUR SURGERY. DRINK CLEAR LIQUIDS (APPLE JUICE, ZAHIDA ALEJO, 7-UP, BROTH, ETC.). PROGRESS TO YOUR REGULAR DIET YOU FEEL ABLE. YOU MAY HAVE A DRY MOUTH, A SORE THROAT, MUSCLES ACHES OR TROUBLE SLEEPING. THESE SHOULD GO AWAY AFTER 24 HOURS. CALL YOUR DOCTOR FOR ANY OF THE FOLLOWING: SIGNS OF INFECTION (FEVER, GROWING TENDERNESS AT THE SURGERY SITE, A LARGE AMOUNT OF DRAINAGE OR BLEEDING, SEVERE PAIN, FOUL-SMELLING DRAINAGE, REDNESS OR SWELLING. IT HAS BEEN OVER 8 TO 10 HOURS SINCE SURGERY AND YOU ARE STILL NOT ABLE TO URINATE (PASS WATER). Transderm Scop (Scopolamine) Patch The Transderm Scop patch placed behind your ear helps to prevent nausea and vomiting associated withthe use of anesthesia and certain analgesics used during or after many types surgery. You will need to remove this patch after 3 days. However, it may be removed sooner if you are no longer concerned about nausea or vomiting. The most common side effects: ? dryness of the mouth ? drowsiness ? blurred vision ? dilation of pupils ? disorientation, memory disturbances and/or confusion ? dizziness ? restlessness ? hallucinations ? difficulty urinating ? skin rash ? red or painful eyes Avoid drinking alcohol while using Transderm Scop patch. Be careful about driving or operating any machinery while using this medication since it may make you drowsy. In the unlikely event that you experience pain in the eye, which may be accompanied by widening of the pupil, eye redness and blurred vision, remove the Transderm Scop Patch immediately and consult your doctor. Removal of Transderm Scop Patch: To remove the patch simply peel it off your skin. Be sure to wash your hands and the area behind your ear thoroughly with soap and water. The Transderm Scop Patch will continue to have some active ingredient after use. Therefore, to avoid accidental contact or ingestion by children or pets, fold the used patch in half with the sticky side together and dispose in the trash out of reach of children and pets. You had 1 NORCO tablet at 3:07 pm and repeated at 3:30. Next dose due at 7:30 pm. documented in this encounter Medications at Time of Discharge Medication Sig Dispensed Refills Start Date End Date Multiple Vitamins-Minerals Take 1 tablet by 0 (MULTIVITAMIN OR) mouth daily amLODIPine (NORVASC) 2.5 MG Take 3 tablets 270 tablet 1 02/0610/06/2015 tabletIndications: Essential (7.5 mg) by hypertension, benign mouth daily Calcium Citrate-Vitamin D Take 630 mg by 0 10/06/2015 (CITRACAL + D PO) mouth Vit D - 500iu Calcium 630mg Sodium 10mg takes two pills qd hydrochlorothiazide Take 1 tablet 90 tablet 1 02/27/2015 (HYDRODIURIL) 25 MG (25 mg) by mouth tabletIndications: Essential daily hypertension, benign HYDROcodone-acetaminophen Take 1-2 tablets 30 tablet 0 04/0807/12/2015 (NORCO) 5-325 MG per by mouth every 4 tabletIndications: Ventral hours as needed hernia without obstruction for other or gangrene (Moderate to Severe Pain) documented as of this encounter H&P Notes Margaret Marroquin - 05/01/2015 9:30 AM CDT This note is for the purpose of making the H&P performed in clinic within the last 30 days available in the hospital surgical encounter. Source Note - Bruna Meade PA - 04/17/2015 1:11 PM CDT [facility] [address] [place] [address]. [address] [facility] [address] Dept: [phone] PRE-OP EVALUATION: Today's date: 04/17/2015 Shahnaz Phelps (: 1945) presents for pre-operative evaluation assessment as requestedby Dr. Jiménez. She requires evaluation and anesthesia risk assessment prior to undergoing surgery/procedure for treatment of Hernia . Proposed procedure: Hernia Repair Date of Surgery/ Procedure: 05/02/15 Time of Surgery/ Procedure: 1:00pm Hospital/Surgical Facility: [facility] Primary Physician: Liudmila David Type of [...] carcinoid tumor 04/17/2015 Priority: Medium ??? Health [facility] 2012 Priority: Medium State Tier Level: Tier 2 Status: n/a Language Translator: See Letters for [facility] Care Plan ??? Calculus of kidney 03/28/2012 [...] cardiovascular risks for perioperative complications such as (MS, PE, VFib and 3?? AV Block): No [...] evaluation report is provided to requesting physician. [facility] Preop Guidelines documented in this encounter Miscellaneous Notes Op Note - Hunter Anders MD - 05/02/2015 3:08 PM CDT PREOPERATIVE DIAGNOSIS: Ventral incisional hernia. POSTOPERATIVE DIAGNOSIS: Ventral incisional hernia. PROCEDURE: Open repair of ventral incisional with placement of underlay mesh. ANESTHESIA: General plus local. SURGEON: Hunter Jiménez MD STONE DRESSER: Leny Peter PA-C SPECIMENS: None submitted. COMPLICATIONS: None. INDICATIONS: Ms. Shahnaz Phelps is a 69-year-old female who I met earlier this month who presented to my office with a symptomatic incisional hernia. 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 She noted a bulging at the site around January of this year which initiallyhad some pain and discomfort associated with it. Because of need for standing on her feet for extended periods of time and discomfort associated with it the patient desired repair of the hernia. Risks of the surgery including infection, bleeding, damage to adjacent structures, mesh infection and hernia recurrence were reviewed. The patient verbalized understanding of the above and consented to proceed. FINDINGS: There was approximately 3 x 6 cm oblique transverse fascial defect containing preperitoneal fat as well as a well-defined fibrotic hernia sac. This was repaired with a Ventrio underlay mesh measuring 12 x 8 cm. DESCRIPTION OF PROCEDURE: With the patient under excellent general anesthesia in supine position, abdomen was prepped and draped in the usual sterile surgical fashion. Timeout was then performed confirming the patient, procedure to be done as well as her drug allergies and preoperative markings. She did receive a dose of Cleocin prior to incision for infectious prophylaxis. We began by making a 6 cm sharp incision utilizing most of the previous hand port site. Electrocautery dissection was carried out through the deep dermis into the subcutaneous plane between the hernia sac and fat. We used Reema retractor on the lateral aspect to elevate and further define the plane between the sac and subcutaneous fat, this was subsequently dissected free circumferentially from the surrounding tissues down to the level of the fascial edges. Once entirely cleared and defined, the lateral aspect of the fascial edge was grasped and elevated with Julia, the preperitoneal space was then entered with electrocautery. This preperitoneal space was developed radially using electrocautery and by migrating and moving th e Julia clamps circumferentially around the fascial defect. This was done for about 3-4 cm in all directions. We then mobilized the fascia further by cauterizing the plane between the subcutaneous fatand fascia. At this juncture, the fascial defect was about 3 x 6 cm in a transverse orientation. There was excellent laxity in the fascia such that we were able to bring the superior and inferior edgestogether without tension. We introduced a 12 x 8 cm oval Ventrio mesh into the field and placed thisinto the preperitoneal space. This was tacked with transfascial 0 PDS sutures at the cardinal positions such that the mesh was firm without wrinkling. We then closed the fascia atop of this with a running 0 PDS stitches x2. 30 mL of 0.5% Marcaine were then distributed into the fascia and subcutaneous space. The wound was soaked and irrigated with IrriSept and subsequently with sterile saline. We thenreapproximated the umbilical skin to the fascia with a 3-0 Vicryl. We closed some of the deep space by reapproximating the fat layers with 3-0 Vicryls as well. Skin was closed in 2 layers with 3-0 and 4-0 Vicryls. Skin glue was then applied atop of this. The patient tolerated the procedure well and was extubated and brought to recovery in excellent condition. All sharps and sponge counts were correctat the conclusion of the case. HUNTER ANDERS MD MT: [id number] Name: SHAHNAZ PHELPS Account: [id number] : 1945 Procedure Date: 05/02/2015 Document: [id number] cc: Liudmila Lane MD Brief Op Note - Hunter Anders MD - 05/02/2015 2:27 PM CDT [facility] Brief Operative Note Pre-operative diagnosis: Ventral incisional hernia Post-operative diagnosis Ventral incisional hernia Procedure: Procedure(s): Open incisional hernia repair with mesh Surgeon(s): Surgeon(s) and Role: * Hunter Anders MD - Primary * Leny Peter PA-C - Assisting Estimated blood loss: 10 mL Specimens: * No specimens in log * Findings: Fascial defect measuring 3x6cm, oriented transversely, containing fat and fibrotic sac. Repaired with 8x12 Ventrio mesh underlay. documented in this encounter Plan of Treatment Not on filedocumented as of this encounter Procedures Procedure Name Priority Date/Time Associated Diagnosis Comme jessica HERNIORRHAPHY, 05/02/2015 12:44 PM Ventral incisional INCISIONAL, OPEN CDT hernia Special Needs 5' 6.5/ 215.5 lb per H&P BM I 34.27 GLUCOSE BY METER Routine 05/02/2015 11:53 AM CDT Results for this procedure are in the results sec tion. documented in this encounter Results (ABNORMAL) Glucose by meter (05/02/2015 11:53 AM CDT) P athologist Signature Glucose 108 (H) 70 - 99 POINT OF CARE mg/dL TEST, GLUCOSE Specimen Anatomical Collection Method Collection Time Receive d Time (Source) Location / / Volume Laterality 05/02/2015 11:53 05/02/2015 AM CDT 11:55 AM CDT Hunter Anders MD LAB - BEAKER POCT Performing Organization Address City/State/ZIP Code Phon e Number [facility] POINT OF CARE TEST, GLUCOSE POINT OF CARE TEST, GLUCOSE documented in this encounter Visit Diagnoses Diagnosis Ventral hernia without obstruction or ga ngrene - Primary Ventral hernia, unspecified, without men tion of obstruction or gangrene documented in this encounter Administered Medications Inactive Administered Medications - up to 3 most recent administrations Medication Order MAR Action Action Date Dose Rate Site fentaNYL (SUBLIMAZE) injection Given 05/02/2015 3:04 PM CDT 50 m cg 25-50 mcg 25-50 mcg, Intravenous, EVERY 2 MIN PRN, other, acute pain while in PACU., Starting on Tue05/02/15 at 1448, MAX cumulative dose = 250 mcg. Use Fentanyl initially, as a short acting agent for acute pain control. If insufficient, or a longer acting agent is needed, begin Morphine or Hydromorphone if ordered., PACU Given 05/02/2015 2:57 PM CDT 50 mcg HYDROcodone-acetaminophen (NORCO) 5-325 MG Given 05/02 3:07 PM CDT 1 tablet per tablet 1-2 tablet 1-2 tablet, Oral, ONCE PRN, moderate to severe pain, Starting on Tue05/02/15 at 1448, For 1 dose, One time prior to discharge. Maximum acetaminophen dose from all sources= 75 mg/kg/day not to exceed 4 grams, Post-procedure HYDROcodone-acetaminophen (NORCO) 5-325 MG Given 05/02 3:29 PM CDT 1 tablet per tablet 1-2 tablet 1-2 tablet, Oral, EVERY 4 HOURS PRN, moderate to severe pain, Starting on Tue05/02/15 at 1528, Maximum acetaminophen dose from all sources= 75 mg/kg/day not to exceed 4 grams, PACU/Phase II documented in this encounter Active and Recently Administered Medications Times are shown in CDT. Scheduled Medication Order 04/30/2015 05/01/2015 05/02/2015 clindamycin (CLEOCIN) intermittent infusion 900 mg (CANCELED) 1255 (Given - Provider: Delaney Eng, WIND ENERGY ENGINEER CARDIOPULMONARY SPECIALIST) 900 mg, Intravenous, PRE-OP/PRE-PROCEDUR E, Starting Tue05/02/15 at 1159, Indications: Surgical Prophylaxis, Pre-procedure PRN Medication Order 04/30/2015 05/01/2015 05/02/2015 bupivacaine (MARCAINE) injection 0.5% (PF) (CANCELED) 1428 (Given - Provider: Hunter Anders MD) PRN, Starting Tue05/02/15 at 1428, Intra-procedure fentaNYL (SUBLIMAZE) injection 25-50 mcg (CANCELED) 1457 (Given - Provider: Lilly Mccray RN)1504 (Given - Provider: Lilly Mccray RN) 25-50 mcg, Intravenous, EVERY 2 MIN PRN, Starting Tue05/02/15 at 1448, other, acute pain while in PACU., MAX cumulative dose = 250 mcg. Use Fentanyl initially, as a short acting agent for acute pain con trol. If insufficient, or a longer actin g agent is needed, begin Morphine or Hydromorphone if ordered., PACU HYDROcodone-acetaminophen (NORCO) 5-325 MG per tablet 1-2 tablet (COMPLETED) 1507 (Given - Provider: Lilly Mccray RN) 1-2 tablet, Oral, ONCE PRN, moderate to severe pain, Starting on Tue05/02/15 at 1448, For 1 dose, One time prior to discharge. Maximum acetaminophen dose from all sources= 75 mg/kg/day not to exceed 4 grams, Post-procedure HYDROcodone-acetaminophen (NORCO) 5-325 MG per tablet 1-2 tablet (CANCELED) 1529 (Given - Provider: Lilly G Mccray, RN) 1-2 tablet, Oral, EVERY 4 HOURS PRN, mod erate to severe pain, Starting 05/02/15 at 1528, Maximum acetaminophen dose from all sources= 75 mg/kg/day not to exceed 4 grams, PACU/Phase II documented in this encounter Care Teams Head Screen Worker Relationship Specialty Start Date End Date Liudmila David MD PCP - General Family Practice 02/12/14 1 12/06/19 documented as of this encounter
--- OUTSIDE RECORDS SUMMARY | 2022-08-18 09:30 | XMS_ITS | Encounter Summary ---
:1945 Author Organization [place] Address [address] [place] [address] Care Team Providers Name Role Phone Liudmila David MD Primary Care Provider Unavailable Liudmila David MD Unavailable Unavailable Reason for Referral PODIATRIC AIDE - Closed Specialty Diagnoses / Procedures Referred By Contact Refer red To Contact Diagnoses Generalized abdominal cramps Vaginal bleeding Abnormal endometrial ultrasound Liudmila David MD OBGYN SPCL [address] [facility], [address] [address] Referral ID Status Reason Start Date Expiration Date Visits Requ ested Visits Authorized [id number] Closed 05/31/2016 05/31/2017 1 1 Reason for Visit Reason Onset Date Comments Referral 05/29/2016 Medical Billing Coordinator Encounter Details Date Type Department Care Team Description 05/29/2016 Telephone [facility] Liudmila David, Ref erral (Medical Billing Coordinator) Physicians [address] [place] [phone] Social History Tobacco Use Types Packs/Day Years Used Date Smoking Tobacco: Former Cigarettes 0.5 15 Quit : 11/07/1995 Smokeless Tobacco: Never Alcohol Use Standard Drinks/Week Comments Yes 0 (1 standard drink = 0.6 oz pure alcoho l) rare - wine once in a while Sex Assigned at Date Recorded Female 10/17/2018 7:14 PM SUSTAINABILITY SPECIALIST documented as of this encounter Miscellaneous Notes Telephone Encounter - Phyllis Salgado - 05/31/2016 4:33 PM CDT Referral with office notes, labs & U/S faxed to Obstetrics/Gynecology Specialist, P.AMariam [address] [facility] [address] [facility] [address] - appt line [phone] - fax Telephone Encounter - Kei Greene CMA - 05/31/2016 4:[address] Chauhan schedule is booked out a few weeks. Pt called back and wants to call Chairman & Chief Executive Officer Specialist. Referral issued and Registry Nurse will call Pt when the receive the referral Notes faxed Addendum Note - Kei Greene CMA - 05/31/2016 4:10 PM CDT Addended by: KEI GREENE on: 05/31/2016 04:10 PM Modules accepted: Orders Telephone Encounter - Kei Greene CMA - 05/31/2016 2:08 PM CDT Spoke to Pt . She will call both Medical Billing Coordinator offices to see where she can get in soonest. She is ok with seeing anyone Dr David recommends. Gave Dr Ross and Dr Moore's name and number to Telephone Encounter - Liudmila David MD - 05/31/2016 11:11 AM CDT Fax my last note to Jose IT ANALYST with a note that the patient will be calling to schedule a consult- with Dr Chauhan Reason for consult: Lower abdominal cramps/ minimal vaginal bleeding/ abnormal endometrium on pelvic ultrasound Then call patient with Dr Chauhan's phone number to schedule a consult Telephone Encounter - Kei Greene CMA - 05/31/2016 9:17 AM CDT Shahnaz Phelps called the clinic support line with the following: States that she has seen Dr Lund before. Would like to see again if possible. [phone] Telephone Encounter - Liudmila David MD - 05/29/2016 9:25 AM CDT Call IT ANALYST for consult- fax pelvic US documented in this encounter Plan of Treatment Not on filedocumented as of this encounter Visit Diagnoses Diagnosis Generalized abdominal cramps - Primary Abdominal pain, generalized Vaginal bleeding Other specified noninflammatory disorder of vagina Abnormal endometrial ultrasound Nonspecific (abnormal) findings on radio logical and other examination of abdominal area, including retroperitoneum documented in this encounter Care Teams Service Director Relationship Specialty Start Date End Date Liudmila David MD PCP - General Family Practice 02/12/14 1 12/06/19 Liudmila David MD Assigned PCP 10/12/15 documented as of this encounter
--- OUTSIDE RECORDS SUMMARY | 2022-08-18 09:30 | XMS_ITS | Encounter Summary ---
:1945 Author Organization [place] Address [facility] [place] [address] Care Team Providers Name Role Phone Liudmila David MD Primary Care Provider Unavailable Liudmila David MD Unavailable Unavailable Reason for Visit Auth/Cert - Closed Specialty Diagnoses / Procedures Referred By Contact Refer red To Contact Gastroenterology Diagnoses HISTORY OF SMALL BOWEL CANCER Sh Endoscopy Procedures COLONOSCOPY [address] [phone] Phone: Referral ID Status Reason Start Date Expiration Date Visits Requ ested Visits Authorized [id number] Closed 1 1 Encounter Details Date Type Department Care Team Description 10/20/2015 Hospital Encounter [facility] Maite Lane MD [facility] Endoscopy COLON RECTAL SURG [address] [place] [phone] [address] [phone] [address] [place] [address] (Wo rk) Social History Tobacco Use Types Packs/Day Years Used Date Smoking Tobacco: Former Cigarettes 0.5 15 Quit : 11/07/1995 Smokeless Tobacco: Never Alcohol Use Standard Drinks/Week Comments Yes 0 (1 standard drink = 0.6 oz pure alcoho l) rare - wine once in a while Sex Assigned at Date Recorded Female 10/17/2018 7:14 PM PACKAGING LINE OPERATOR documented as of this encounter Last Filed Vital Signs Vital Sign Reading Time Taken Comments Blood Pressure 124/64 10/20/2015 10:40 AM PACKAGING LINE OPERATOR Pulse - - Temperature - - Respiratory Rate 15 10/20/2015 10:40 AM PACKAGING LINE OPERATOR Oxygen Saturation 96% 10/20/2015 10:40 AM PACKAGING LINE OPERATOR Inhaled Oxygen Concentration - - Weight 98 kg (216 lb) 10/20/2015 7:35 AM PACKAGING LINE OPERATOR Height 168.9 cm (5' 6.5) 10/20/2015 7:35 AM PACKAGING LINE OPERATOR Body Mass Index 34.34 10/20/2015 7:35 AM PACKAGING LINE OPERATOR documented in this encounter Medications at Time of Discharge Medication Sig Dispensed Refills Start Date End Date Multiple Vitamins-Minerals Take 1 tablet by 0 (MULTIVITAMIN OR) mouth daily amLODIPine (NORVASC) 2.5 MG Take 3 tablets 270 tablet 1 09/0902/18/2016 tabletIndications: Essential (7.5 mg) by hypertension, benign mouth daily hydrochlorothiazide Take 1 tablet 90 tablet 1 10/06/2015 (HYDRODIURIL) 25 MG (25 mg) by mouth tabletIndications: Essential daily hypertension, benign, Calculus of kidney documented as of this encounter Nursing Notes Leydi Srinivasan RN - 10/20/2015 10:57 AM CST Patient very sleepy post-procedure. Extended recovery time. AGING LINE OPERATOR documented in this encounter Plan of Treatment Not on filedocumented as of this encounter Procedures Procedure Name Priority Date/Time Associated Comments Diagnosis SURGICAL PATHOLOGY Routine 10/20/2015 9:12 AM Res ults for this EXAM PACKAGING LINE OPERATOR procedure are i n the results section. COLONOSCOPY, 10/20/2015 8:54 AM HISTORY OF SMALL FLEXIBLE, WITH LESION PACKAGING LINE OPERATOR BOWEL CANCER REMOVAL USING SNARE COLONOSCOPY, WITH 10/20/2015 8:54 AM HISTORY OF SMALL POLYPECTOMY AND PACKAGING LINE OPERATOR BOWEL CANCER BIOPSY COLONOSCOPY Routine 10/20/2015 8:01 AM Results f or this PACKAGING LINE OPERATOR procedure are i n the results section. UREA NITROGEN (BUN) STAT 10/20/2015 7:34 AM Re sults for this PACKAGING LINE OPERATOR procedure are i n the results section. GLUCOSE STAT 10/20/2015 7:34 AM Results f or this PACKAGING LINE OPERATOR procedure are i n the results section. documented in this encounter Results Surgical pathology exam (10/20/2015 9:12 AM PACKAGING LINE OPERATOR) Component Value Ref Test Analysis Performed At [facility] Range Method Time Signature Copath Report Patient Name: SHAHNAZ GLASGOW MR#: [id number] Specimen #: [id number] Collected: 10/20/2015 Received: 10/20/2015 Reported: 10/21/2015 12:55 Ordering Phy(s): JERRY LANE SPECIMEN(S): A: Colon polyp, ascending B: Sigmoid colon polyps x3 FINAL DIAGNOSIS: A: Colon, ascending tongue polypectomy - Nonneoplastic colonic mucosa with prominent submucosal lym phoid aggregate B: Colon, sigmoid, polypectomy - Hyperplastic polyps Electronically signed out by: Ray Waddell M.D. GROSS: A: The specimen is received in formalin with proper patient identification labeled ascending colon polyp. ??The specim en consists of two pink polypoid structures ranging from 0.1-0.3 cm. ??T he specimen is entirely submitted in one cassette. B: The specimen is received in formalin with proper patient identification labeled sigmoid colon polyp x3. ??The speci men consists of three pink polypoid structures ranging from 0.2 cm up to 0.5 cm. ??The specimen is entirely submitted in one cassette. (Dictated by : Ramón Barrett 10/20/2015 01:38 PM) MICROSCOPIC: Microscopic performed CPT Codes: A: 64909-FE9 B: 40831-JH6 TESTING LAB LOCATION: [address] ??[id number] COLLECTION SITE: Client: [facility] Location: [facility] (S) Specimen Anatomical Collection Method Collection Time Receive d Time (Source) Location / / Volume Laterality 10/20/2015 9:12 AM 5 PACKAGING LINE OPERATOR 10:33 AM PACKAGING LINE OPERATOR Jerry Lane MD LAB - [facility] Performing Organization Address City/State/ZIP Code Phon e Number JENN COLONOSCOPY (10/20/2015 8:01 AM PACKAGING LINE OPERATOR) [facility] Method Time Signature COLONOSCOPY [facility] RADIOLOGY [facility] Endoscopy Department RESULTS Patient Name: Shahnaz Glasgow ?? Procedure Date: 10/20 8:01 AM ? Accou nt Number: [id number] Date of : 1945 ? Admit Type: Outp atient Age: 70 ? Room: special procedure room #1 Note Status: Finalized ?Attending MD: Jerry Lane MD Instrument Name: [id number] ? Procedure: ? Colonoscopy Indications: ? Hig h risk colon cancer surveillance: Personal history of ? 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 Jerry Lane MD, Violetta garcia RN Referring MD: ?Liudmila David MD, Winifred starks MD Medicines: ? Monitored Anesthesia Care Complications: ? No immediate complications. Procedure: ? Pre-Anesthesia Assessment: ? - Prior to the procedure, a History and Physical was ? performed, and patient medications and allergies were ? reviewed. The patient is competent. The risks and ? benefits of the procedure and the sedation options and ? risks were discussed with the patient. All questions ? were answered and informed consent was obtained. Patient ? identification and proposed procedure were verified by ? the physician in the endoscopy suite. Mental Status ? Examination: alert and oriented. Airway Examination: ? normal oropharyng eal airway and neck mobility. ? Respiratory Examination: clear to auscultation. CV ? Examination: normal. Prophylactic Antibiotics: The ? patient does not require prophylactic antibiotics. Prior ? Anticoagulants: The patient has taken no previous ? anticoagu lant or antiplatelet agents. ASA Grade ? Assessment: II - A patient with mild systemic disease. ? After reviewing the risks and benefits, the patient was ? deemed in satisfactory condition to undergo the ? procedure. The anesthesia plan was to use moderate ? sedation / analgesia (conscious sedation). Immediately ? prior to administration of medications, the patient was ? re-assessed for adequacy to receive sedatives. The heart ? rate, respiratory rate, oxygen saturations, blood ? pressure, adequacy of pulmonary ventilation, and ? response to care were monitored throughout the ? procedure. The physical status of the patient was ? re-assessed after the procedu re. ? After obtaining informed consent, the colonoscope was ? passed under direct vision. Throughout the procedure, ? the patie nt's blood pressure, pulse, and oxygen ? saturations were monitored continuously. The Colonoscope ? was introduced through the anus and advanced to the ? ileocolonic anastomosis. The colonoscopy was performed ? with moderate difficulty due to significant looping. ? Successful completion of the procedure was aided by ? applying abdominal pressure. The patient tolerated the ? procedure well. The quality of the bowel preparation was ? excellent and adequate to erica ntify polyps. ? Findings: ? The perianal and digital rectal examinations were nor mal. Pertinent ? negatives include normal sphincte r tone and no palpable rectal lesions. ? There was evidence of a prior side-to-jimmy e ileo-colonic anastomosis in ? the ascending colon. This was pat ent. This was characterized by healthy ? appearing mucosa. This was traversed. ? The bipin-terminal ileum appeared normal. ? A sessile polyp was found in the ascending colon. The polyp was 3 mm in ? size. The polyp was removed with a jumbo cold force ps. Resection and ? retrieval were complete. ? A sessile polyp was found in the sigmoid colon. The polyp was 4 mm in ? size. The polyp was removed with a jumbo cold force ps. Resection and ? retrieval were complete. ? Two semi-sessile poly ps were found in the sigmoid colon. The polyps were ? 5 to 8 mm in size. These polyps were removed with a c old snare. ? Resection and retrieval were complete. ? The exam was otherwise without abnormality. ? Impression: ?- Patent qwli-co-[id number] ileo-colonic anastomosis. ? - The exa mined portion of the ileum was normal. ? - One 3 mm polyp in the ascending colon. Resected and ? retrieved. ? - One 4 mm polyp in the sigmoid colon. Resected and ? retrieved. ? - Two 5 to 8 mm polyps in the sigmoid colon. Resected ? and retrieved. ? - The examination was otherwi se normal. Recommendation: ?- Await pathology results. ? - Repeat colonoscopy in 3 years for surveillance under ? MAC anesthesia. ? Jerry Lane MD 10/20/2015 9:40 AM Number of Addenda: 0 Note Initiated On: 10/20/2015 8:01 AM Scope Withdrawal Time: 0 hours 18 minutes 35 seconds Total Procedure Duration: 0 hours 27 minutes 38 seconds Specimen (Source) Anatomical Collection Method Collection Time Re ceived Time Location / / Volume Laterality 10/20/2015 8:01 AM PACKAGING LINE OPERATOR Liudmila David MD PROCEDURES Performing Organization Address City/State/ZIP Code Phon e Number RADIOLOGY RESULTS (ABNORMAL) Glucose (10/20/2015 7:34 AM PACKAGING LINE OPERATOR) P athologist Signature Glucose 117 (H) 70 - 99 [place] mg/dL [facility] Specimen Anatomical Collection Method Collection Time Receive d Time (Source) Location / / Volume Laterality Blood specimen 10/20/2015 7:34 AM 015 7:44 (specimen) PACKAGING LINE OPERATOR AM PACKAGING LINE OPERATOR Jerry Lane MD LAB - BLOOD ORDERABLES Performing Organization Address City/State/ZIP Code Phon e Number M [facility] [address] [place] [phone] [facility] [address] [place] [address], [place] [phone] Urea nitrogen (10/20/2015 7:34 AM PACKAGING LINE OPERATOR) athologist Signature Urea Nitrogen 18 7 - 30 [place] mg/dL [facility] Specimen Anatomical Collection Method Collection Time Receive d Time (Source) Location / / Volume Laterality Blood specimen 10/20/2015 7:34 AM 015 7:44 (specimen) PACKAGING LINE OPERATOR AM PACKAGING LINE OPERATOR Jerry Lane MD LAB - BLOOD ORDERABLES Performing Organization Address City/State/ZIP Code Phon e Number M [facility] [address] [place] [phone] [facility] [address] [place] [address], [place] [phone] documented in this encounter Visit Diagnoses Not on filedocumented in this encounter Active and Recently Administered Medications Care Teams Public Improvement Inspector Relationship Specialty Start Date End Date Liudmila David MD PCP - General Family Practice 02/12/14 1 12/06/19 Liudmila David MD Assigned PCP 10/12/15 documented as of this encounter
--- OUTSIDE RECORDS SUMMARY | 2022-08-18 09:30 | XMS_ITS | Encounter Summary ---
:1945 Author Organization [place] Address [facility] [place] [address] Care Team Providers Name Role Phone Liudmila David MD Primary Care Provider Unavailable Liudmila David MD Unavailable Unavailable Reason for Visit Auth/Cert - Closed Specialty Diagnoses / Procedures Referred By Contact Refer red To Contact Gastroenterology Diagnoses HISTORY OF SMALL BOWEL CANCER Endoscopy Procedures COLONOSCOPY [address] [place] [phone] Phone: Referral ID Status Reason Start Date Expiration Date Visits Requ ested Visits Authorized [id number] Closed 1 1 Encounter Details Date Type Department Care Team Description 10/20/2015 Surgery [facility] Jerry Lane MD COLONOSCOPY (GENERAL) [facility] Endoscopy COLON RECTAL SURG [address] [place] [phone] [phone] [address] [place] [address] (Wo rk) Surgery Details Date/Time Status Location OR Service Patient Class Case Case Trauma Class Type Case? 10/20/15 8:30 Posted GI GI SP [place] AM 01 Panel 1 Procedure LRB Anes Op Region Wound Class Commen ts COLONOSCOPY N/A General Rectum II-Clean COLONOSCOPY (GENERAL) Contaminated (GENERAL) COLONOSCOPY, N/A Conscious Rectum II-Clean FLEXIBLE, WITH Sedation Contaminated LESION REMOVAL USING SNARE Surgeon Surgeon Role Service Panel Jerry Lane MD Primary [place] 1 documented in this encounter Social History Tobacco Use Types Packs/Day Years Used Date Smoking Tobacco: Former Cigarettes 0.5 15 Quit : 11/07/1995 Smokeless Tobacco: Never Alcohol Use Standard Drinks/Week Comments Yes 0 (1 standard drink = 0.6 oz pure alcoho l) rare - wine once in a while Sex Assigned at Date Recorded Female 10/17/2018 7:14 PM PROGRAM STRATEGIST documented as of this encounter Last Filed Vital Signs Vital Sign Reading Time Taken Comments Blood Pressure 124/64 10/20/2015 10:40 AM PROGRAM STRATEGIST Pulse - - Temperature - - Respiratory Rate 15 10/20/2015 10:40 AM PROGRAM STRATEGIST Oxygen Saturation 96% 10/20/2015 10:40 AM PROGRAM STRATEGIST Inhaled Oxygen Concentration - - Weight 98 kg (216 lb) 10/20/2015 7:35 AM PROGRAM STRATEGIST Height 168.9 cm (5' 6.5) 10/20/2015 7:35 AM PROGRAM STRATEGIST Body Mass Index 34.34 10/20/2015 7:35 AM PROGRAM STRATEGIST documented in this encounter Medications at Time [...] Patient very sleepy post-procedure. Extended recovery time. RAM STRATEGIST documented in this encounter Plan of Treatment Not on filedocumented as of this encounter Procedures Procedure Name Priority Date/Time Associated Comments Diagnosis SURGICAL PATHOLOGY Routine 10/20/2015 9:12 AM Res ults for this EXAM PROGRAM STRATEGIST procedure are i n the results section. COLONOSCOPY, 10/20/2015 8:54 AM HISTORY OF SMALL FLEXIBLE, WITH LESION PROGRAM STRATEGIST BOWEL CANCER REMOVAL USING SNARE COLONOSCOPY, WITH 10/20/2015 8:54 AM HISTORY OF SMALL POLYPECTOMY AND PROGRAM STRATEGIST BOWEL CANCER BIOPSY COLONOSCOPY Routine 10/20/2015 8:01 AM Results f or this PROGRAM STRATEGIST procedure are i n the results section. UREA NITROGEN (BUN) STAT 10/20/2015 7:34 AM Re sults for this PROGRAM STRATEGIST procedure are i n the results section. GLUCOSE STAT 10/20/2015 7:34 AM Results f or this PROGRAM STRATEGIST procedure are i n the results section. documented in this encounter Results Surgical pathology exam (10/20/2015 9:12 AM PROGRAM STRATEGIST) Component Value Ref Test Analysis Performed At [facility] Range Method Time Signature Copath Report Patient Name: SHAHNAZ GLASGOW MR#: [id number] Specimen #: [id number] Collected: 10/20/2015 Received: 10/20/2015 Reported: 10/21/2015 12:55 [...] PM) MICROSCOPIC: Microscopic performed CPT Codes: A: 59248-YP8 B: 94085-WL6 TESTING LAB LOCATION: [address] ??[phone] COLLECTION SITE: Client: [facility] Location: [place] (S) Specimen Anatomical Collection Method Collection Time Receive d Time (Source) Location / / Volume Laterality 10/20/2015 9:12 AM 5 PROGRAM STRATEGIST 10:33 AM PROGRAM STRATEGIST Jerry DRIVER - MARIA GUADALUPE Performing Organization Address City/State/ZIP Code Phon e [place] COLONOSCOPY (10/20/2015 8:01 AM PROGRAM STRATEGIST) [facility] Method Time Signature COLONOSCOPY [facility] RADIOLOGY [facility] Endoscopy Department RESULTS Patient Name: Shahnaz Glasgow ?? Procedure Date: 10/20 8:01 AM ? Accou nt Number: [id number] Date of : 1945 ? Admit Type: Outp atient Age: 70 ? Room: special procedure room #1 Note Status: Finalized ?Attending MD: Jerry Lane MD Instrument Name: [id number] ? Procedure: ? Colonoscopy Indications: ? Hig h risk colon cancer surveillance: Personal history of ? colonic polyps, personal history of carcinoid tumor s/p ? resection Jul 2014 Providers: ? Jerry Lane MD, Violetta garcia [...] otherwise without abnormality. ? Impression: ?- Patent [id number]-[id number] ileo-colonic anastomosis. ? - The exa mined [...] / / Volume Laterality 10/20/2015 8:01 AM PROGRAM STRATEGIST Liudmila David MD PROCEDURES Performing Organization Address [facility]/ZIP Code Phon e Number RADIOLOGY RESULTS (ABNORMAL) Glucose (10/20/2015 7:34 AM PROGRAM STRATEGIST) P athologist Signature Glucose 117 (H) 70 - 99 [place] mg/dL [facility] Specimen Anatomical Collection Method Collection Time Receive d Time (Source) Location / / Volume Laterality Blood specimen 10/20/2015 7:34 AM 015 7:44 (specimen) PROGRAM STRATEGIST AM PROGRAM STRATEGIST Jerry Lane MD LAB - BLOOD ORDERABLES Performing Organization Address [facility]/ZIP Code Phon e Number M [facility] [address] [address] [phone] [place] [id number] [address], [place] [phone] Urea nitrogen (10/20/2015 7:34 AM PROGRAM STRATEGIST) P athologist Signature Urea Nitrogen 18 7 - 30 [place] mg/dL [facility] Specimen Anatomical Collection Method Collection Time Receive d Time (Source) Location / / Volume Laterality Blood specimen 10/20/2015 7:34 AM 015 7:44 (specimen) PROGRAM STRATEGIST AM PROGRAM STRATEGIST Jerry Lane MD LAB - BLOOD ORDERABLES Performing Organization Address City/[facility]/ZIP Code Phon e Number M [facility] [address] [address] [phone] [facility] [address] [address], [facility] [phone] documented in this encounter Visit Diagnoses Not on filedocumented in this encounter Active and Recently Administered Medications Care Teams Senior Producer Relationship Specialty Start Date End Date Liudmila David MD PCP - General Family Practice 02/12/14 1 12/06/19 Liudmila David MD Assigned PCP 10/12/15 documented as of this encounter
--- OUTSIDE RECORDS SUMMARY | 2022-08-18 09:30 | XMS_ITS | Encounter Summary ---
:1945 Author Organization [place] Address [address] [place] [address] Care Team Providers Name Role Phone Liudmila David MD Primary Care Provider Unavailable Reason for Visit (Routine) - Closed Specialty Diagnoses / Procedures Referred By Contact Refer red To Contact Radiology / Radiology. Diagnoses sb; Epic. Office to give prep. Rh Ct Scan [facility] Procedures CT ABDOMEN PELVIS [address] [place] [address] Phone: Fax: Referral ID Status Reason Start Date Expiration Date Visits Requ ested Visits Authorized [id number] Closed 04/11/2015 04/10/2016 1 1 Encounter Details Date Type Department Care Team Description 04/14/[address] 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 documented in this encounter Results CT Abdomen Pelvis w Contrast (04/14/2015 11:45 AM CDT) Anatomical Region Laterality Modality Abdomen/Pelvis, SUBRAD CT BODY, UMP CT ABDOMEN PELVIS Computed Tomography Specimen (Source) Anatomical Location Collection Method / Collectio n Time Received Time / Laterality Volume Impressions 04/14/2015 4:58 PM CDT IMPRESSION: 1. Midline abdominal ventral hernia as d escribed containing small bowel and nonobstructed segment of trans verse colon. This is centered near the level of the iliac crest. 2. Fatty infiltration of the liver. 3. No acute appearing abnormality. 4. Multiple nonobstructing right kidney stones. Mildly prominent pelvicalyceal system is symmetric bilate rally but there is no evidence for obstruction. ? KIMBER BUENO MD Narrative 04/14/2015 4:[address] ABDOMEN AND PELVIS WITH CONTRAST 04/14/2015 11:45 AM TECHNIQUE: Images from diaphragm to pubi c symphysis 100 mL Isovue-370. HISTORY: Ventral hernia, incisional jovan ia. History of intestinal carcinoid surgery. COMPARISON: None. FINDINGS: There is a midline ventral her marcos containing a segment of nonobstructed mid transverse colon. The anterior abdominal wall defect is approximately 8 cm in transverse and 5.5 cm in craniocaudal dimension. The hernia sac containing fat and transverse colon is approximately 10 cm transverse, 5.4 cm A P and 9 cm craniocaudal dimension. There is no bowel obstruction or acute inflammation. The lung bases are clear. Diffuse fatty infiltration of the liver with more focal fatty infiltration in the ant erior left lobe. There is a 1 cm well circumscribed hypodense lesion i n the anterior superior left lobe of the liver, likely a cyst (series 2 image 11 and 12). Normal-appearing gallbladder, spleen, pa ncreas, and adrenal glands. At least 5 right intrarenal kidney stone s up to 0.5 cm in size. There could be additional 1-2 mm stones identi fied. The largest include 2 stones at the lower pole right kidney 0. 5 cm in size and a 0.5 cm stone in the lateral mid right kidney. N o evidence for left urinary tract calculi. Very mild pelvocaliectasi s bilaterally but no convincing evidence for obstruction or h ydroureter. The bladder is unremarkable. There is no periaortic or pelvic adenopa thy. No free fluid. ? Procedure Note Kimber Bueno MD - 04/14/2015For matting of this note might be different from the original. CT ABDOMEN AND PELVIS WITH CONTRAST 2014 11:45 AM TECHNIQUE: Images from diaphragm to pubi c symphysis 100 mL Isovue-370. HISTORY: Ventral hernia, incisional jovan ia. History of intestinal carcinoid surgery. COMPARISON: None. FINDINGS: There is a midline ventral her marcos containing a segment of nonobstructed mid transverse colon. The anterior abdominal wall defect is approximately 8 cm in transverse and 5.5 cm in craniocaudal dimension. The hernia sac containing fat and transverse colon is approximately 10 cm transverse, 5.4 cm A P and 9 cm craniocaudal dimension. There is no bowel obstruction or acute inflammation. The lung bases are clear. Diffuse fatty infiltration of the liver with more focal fatty infiltration in the ant erior left lobe. There is a 1 cm well circumscribed hypodense lesion i n the anterior superior left lobe of the liver, likely a cyst (series 2 image 11 and 12). Normal-appearing gallbladder, spleen, pa ncreas, and adrenal glands. At least 5 right intrarenal kidney stone s up to 0.5 cm in size. There could be additional 1-2 mm stones identi fied. The largest include 2 stones at the lower pole right kidney 0. 5 cm in size and a 0.5 cm stone in the lateral mid right kidney. N o evidence for left urinary tract calculi. Very mild pelvocaliectasi s bilaterally but no convincing evidence for obstruction or h ydroureter. The bladder is unremarkable. There is no periaortic or pelvic adenopa thy. No free fluid. IMPRESSION IMPRESSION: 1. Midline abdominal ventral hernia as d escribed containing small bowel and nonobstructed segment of trans verse colon. This is centered near the level of the iliac crest. 2. Fatty infiltration of the liver. 3. No acute appearing abnormality. 4. Multiple nonobstructing right kidney stones. Mildly prominent pelvicalyceal system is symmetric bilate rally but there is no evidence for obstruction. KIMBER BUENO MD Cheikh Barcenas MD IMG CT ORDERABLES documented in this encounter Visit Diagnoses Diagnosis Ventral hernia without obstruction or ga ngrene Ventral hernia, unspecified, without men tion of obstruction or gangrene documented in this encounter Administered Medications Inactive Administered Medications - up to 3 most recent administrations Medication Order MAR Action Action Date Dose Rate Site 0.9% sodium chloride BOLUS New Bag 04/14/2015 11:36 AM CDT 55 mLs Intravenous, 1,000 mL, ONCE, On Tue04/14/15 at 1145, For 1 dose iopamidol (ISOVUE-370) 76% solution 500 mL Given 04/14/2015 11:36 AM CDT 100 mLs 500 mL, Intravenous, ONCE, On 04/14/15 at 1145, For 1 dose documented in this encounter Care Teams Websphere Process Server Developer Relationship Specialty Start Date End Date Liudmila David MD PCP - General Family Practice 02/12/14 1 12/06/19 documented as of this encounter
--- OUTSIDE RECORDS SUMMARY | 2022-08-18 09:30 | XMS_ITS | Encounter Summary ---
:1945 Author Organization [place] Address [address] [place] [id number] Care Team Providers Name Role Phone Liudmila David MD Primary Care Provider Unavailable Reason for Visit (Routine) - Closed Specialty Diagnoses / Procedures Referred By Contact Refer red To Contact Radiology / Radiology. 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 Abdominal abscess Encounter [facility] Enid Nichols PA-C [address] [place] [address] (H) [address] [place] [address] Social History Tobacco Use Types Packs/Day Years Used Date Smoking Tobacco: Former Cigarettes 0.5 15 Quit : 11/07/1995 Smokeless Tobacco: Never Alcohol Use Standard Drinks/Week Comments Yes 0 (1 standard drink = 0.6 oz pure alcoho l) rare - wine once in a while Sex Assigned at Date Recorded 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 Allen without difficulty. 220 cc clear bloody fluid aspirated and sent to lab for cultures as ordered. Patient discharged to home, ambulatory with spouse. documented in this encounter Procedure Notes Serge Allen MD - 05/22/2015 3:11 PM CDT Procedure/Surgery Information [facility] Bedside Procedure Note Date of Service (when I performed the procedure): 05/22/2015 US guided aspiration of subcutaneous fluid underlying umbilicus. 220 ml of red serous fluid removed.Sent to lab for evaluation. No complications. Shahnaz Phelps is a 69 year old female patient. 1. Abdominal abscess Past Medical History Diagnosis Date ??? Other acne ??? Need for prophylactic hormone replacement therapy (postmenopausal) ??? Allergic rhinitis due to pollen ??? Hypertension ??? 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 PONV (postoperative nausea and vomiting) vomitted for 12 hours after surgery ??? 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 GRAM STAIN Routine 05/22/2015 3:00 PM Abdominal abscess Resu lts for this CDT (H) procedure are i n the results section. ANAEROBIC BACTERIAL Routine 05/22/2015 3:00 PM Abdominal absce ss Results for this CULTURE ROUTINE CDT (H) procedure ar e in the results section. ABSCESS CULTURE Routine 05/22/2015 3:00 PM Abdominal abscess R esults for this AEROBIC BACTERIAL CDT (H) procedure are in the results section. documented in this encounter Results US Drainage Seroma/Hematoma Abscess/Cyst (05/22/2015 3:13 PM CDT) Anatomical Region Laterality Modality Abdomen/Pelvis Ultrasound Specimen (Source) Anatomical Location Collection Method / Collectio n Time Received Time / Laterality Volume Impressions 05/24/2015 10:01 AM CDT IMPRESSION: Uncomplicated aspiration of postoperative fluid collection. A total of 220 mL of clear r ed serous fluid removed. Sample sent to the lab for evaluation. N o residual fluid at completion. SERGE ALLEN MD Narrative 05/24/2015 10:01 AM CDT ULTRASOUND DRAIN OF SEROMA/HEMATOMA/ABSCESS/CYST 05/22/2015 3:13 PM HISTORY: 69-year-old woman with history of surgery for ventral hernia repair and mesh placement. Request made for therapeutic and diagnostic sampling. TECHNIQUE: Patient was brought to the trasound Department. Ultrasound images demonstrate relatively anechoic collection in the subcutaneous tissue, superficial to the mesh, measuring 11.2 x 10.3 x 3.6 cm. Skin overlying this collection w as prepped and draped in standard sterile fashion. With continuou s ultrasound guidance, a 5 Sinhala needle and catheter was advanced into the fluid. A total of 220 mL of relatively clear red serous fluid was removed. No residual fluid at completion. Procedure Note Serge Allen MD - 05/24/2015 ULTRASOUND DRAIN OF SEROMA/HEMATOMA/ABSC ESS/CYST 05/22/2015 3:13 PM HISTORY: 69-year-old woman with history of surgery for ventral hernia repair and mesh placement. Request made for therapeutic and diagnostic sampling. TECHNIQUE: Patient was brought to the trasound Department. Ultrasound images demonstrate relatively anechoic collection in the subcutaneous tissue, superficial to the mesh, measuring 11.2 x 10.3 x 3.6 cm. Skin overlying this collection w as prepped and draped in standard sterile fashion. With continuou s ultrasound guidance, a 5 Sinhala needle and catheter was advanced into the fluid. A total of 220 mL of relatively clear red serous fluid was removed. No residual fluid at completion. IMPRESSION IMPRESSION: Uncomplicated aspiration of postoperative fluid collection. A total of 220 mL of clear r ed serous fluid removed. Sample sent to the lab for evaluation. N o residual fluid at completion. SERGE ALLEN MD Enid Nichols PA-C IMG US ORDERABLES Abscess Culture Aerobic Bacterial (05/22/2015 3:00 PM CDT) [facility] Aplicor Method Time Signature Specimen Abdominal [facility] [place] [facility] Abscess [facility] Culture Micro No growth INFECTIOUS DISEASE DIAGNOSTIC LABORATORY Micro Report FINAL INFECTIOUS Status 05/27/2015 DISEASE DIAGNOSTIC LABORATORY Specimen (Source) Anatomical Collection Method Collection Time Re ceived Time Location / / Volume Laterality Specimen obtained SPECIMEN OBTAINED 05/22/2015 3:00 3:24 by aspiration BY ASPIRATION / PM CDT PM CDT (specimen) Unknown Cheikh Barcenas MD LAB - MICRO GENERAL ORDERABL ES Performing Organization Address City/State/ZIP Code Phon e Number INFECTIOUS DISEASES [address] [place] [address] DIAGNOSTIC LABORATORY, [address] [address], [facility] INFECTIOUS DISEASE [address] [place] [address], [facility] DIAGNOSTIC LABORATORY Anaerobic bacterial culture (05/22/2015 3:00 PM CDT) [facility] Method Time Signature Specimen Abdominal [facility] [place] [facility] Abscess [facility] Special Received in [facility] anaerobic [place] [facility] tubes. [facility] Culture Micro No anaerobes INFECTIOUS isolated DISEASE DIAGNOSTIC LABORATORY Micro Report FINAL INFECTIOUS Status 05/29/2015 DISEASE DIAGNOSTIC LABORATORY Specimen (Source) Anatomical Collection Method Collection Time Re ceived Time Location / / Volume Laterality Specimen obtained SPECIMEN OBTAINED 05/22/2015 3:00 3:23 by aspiration BY ASPIRATION / PM CDT PM CDT (specimen) Unknown Cheikh Barcenas MD LAB - MICRO GENERAL ORDERABL ES Performing Organization Address City/[facility] Phon e Number INFECTIOUS DISEASES [address] [place] [address] DIAGNOSTIC LABORATORY, [address] INFECTIOUS DISEASE [address] DIAGNOSTIC LABORATORY Gram stain (05/22/2015 3:00 PM CDT) [facility] Method Time Signature Specimen Abscess [facility] Abdominal [place] [facility] [facility] Gram Stain No organisms seen MICRO RAPID Rare PMNs seen TESTING LAB Micro Report FINAL MICRO RAPID Status 05/22/2015 TESTING LAB Specimen (Source) Anatomical Collection Method Collection Time Re ceived Time Location / / Volume Laterality Specimen obtained 05/22/2015 3:00 015 3:23 by aspiration PM CDT PM CDT (specimen) Cheikh Barcenas MD LAB - MICRO GENERAL ORDERABL ES Performing Organization Address [facility] Phon e Number MICRO RAPID TESTING LAB [address] [place] [id number] [address] documented in this encounter Visit Diagnoses Diagnosis Abdominal abscess Peritoneal abscess documented in this encounter Care Teams Education Analyst Relationship Specialty Start Date End Date Liudmila David MD PCP - General Family Practice 02/12/14 1 12/06/19 documented as of this encounter
--- OUTSIDE RECORDS SUMMARY | 2022-08-18 09:30 | XMS_ITS | Encounter Summary ---
:1945 Author Organization [place] Address [address] [place] [address]. [place] [address] Care Team Providers Name Role Phone Liudmila David MD Primary Care Provider Unavailable Liudmila David MD Unavailable Unavailable Reason for Visit Auth/Cert - Closed Specialty Diagnoses / Procedures Referred By Contact Refer red To Contact Gastroenterology Diagnoses HISTORY OF SMALL BOWEL CANCER Sh Endoscopy Procedures COLONOSCOPY [address] [phone] Phone: Referral ID Status Reason Start Date Expiration Date Visits Requ ested Visits Authorized [id number] Closed 1 1 Encounter Details Date Type Department Care Team Description 10/20/2015 Anesthesia Event [facility] Ruslan Cornejo MD [place] [facility] [address] [phone] [facility] Endoscopy Charity Bueno, SAP FICO ARCHITECT REAL PROPERTY APPRAISER [address] [phone] [phone] Anesthesia Record Procedure Summary Procedure Name Responsible Anesthesia Start Anesthesia Stop Anesthesiologist Time Time COLONOSCOPY (GENERAL) Ruslan Cornejo MD 10/20/15 0852 0930 (Rectum) Events Date Time Event Comment 10/20/2015 0830 0852 An Start 0852 An Start Data 0859 AN INCISION 0919 an stop data 0930 An Stop Electronically s igned by Charity Bueno CRNA on October 20 9:30 AM Name Total fentanyl 50mcg/mL 100 mcg lidocaine 2% 20 mg midazolam 1mg/mL 2 mg ondansetron 2mg/mL 4 mg propofol 10mg/mL 30 mg propofol infusion (mcg/kg/min) 254.8 mg LR 650 mL Agents Name O2 Exp Sevoflurane O2 Delivery Device Ins Sevoflurane O2 Auxiliary Blood No blood administrations on file. Lines, Drains, and Airways Type Details Placement Removal Peripheral IV 07/03/12; 0916; 22 G; 07/03/12 0916 by Right; Median cubital EliseoTeresa, vein (antecubital RN fossa); Chlorhexidine; Tolerated well; iv sedation Incision/Surgical Site 07/31/14; 1335; 07/31/14 1335 by Abdomen Marge Gonzalez RN Incision/Surgical Site 05/02/15; Abdomen 05/02/15 0000 by Griselda Gutierrez RN Peripheral IV 10/20/15; 0743; 22 G; 10/20/15 0743 by 10/20/15 1054 by Right; Hand; Violetta Bennett Katie Chlorhexidine; H, BETO Maciel RN Tolerated well documented in this encounter Social History Tobacco Use Types Packs/Day Years Used Date Smoking Tobacco: Former Cigarettes 0.5 15 Quit : 11/07/1995 Smokeless Tobacco: Never Alcohol Use Standard Drinks/Week Comments Yes 0 (1 standard drink = 0.6 oz pure alcoho l) rare - wine once in a while Sex Assigned at Date Recorded Female 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 Anesthesia Type: MAC Note: Anesthesia Post Evaluation Patient location during evaluation: PACU Patient participation: Able to fully participate in evaluation Level of consciousness: awake Pain management: adequate Airway patency: patent Anesthetic complications: no Cardiovascular status: acceptable Respiratory status: acceptable Hydration status: acceptable PONV: none Last vitals: Filed Vitals: 10/20/15 1020 10/20/15 1030 10/20/15 1040 BP: 112/60 111/57 124/64 Resp: SpO2: 95% 96% 96% Electronically Signed By: RUSLAN CORNEJO MD October 20, 2015 11:53 AM ICAL RESIDENT Anesthesia Preprocedure Evaluation - Ruslan Cornejo MD - 10/20/2015 7:11 AM CST Anesthesia Evaluation . Pt has had prior anesthetic. History of anesthetic complications PONV ROS/MED HX ENT/Pulmonary: (+)tobacco use, Past use , . . (-) sleep apnea Neurologic: Cardiovascular: (+) hypertension . : . . . :. . METS/Exercise Tolerance: Hematologic: Musculoskeletal: (+) arthritis, - GI/Hepatic: (+) Other GI/Hepatic Diverticulosis; (-) GERD Renal/Genitourinary: (+) Nephrolithiasis Endo: Psychiatric: Infectious Disease: Malignancy: (+) Malignancy History of Other Other CA Carcinoid tumor; skin cancer; status post Other: Physical Exam Normal systems: cardiovascular and pulmonary Airway Mallampati: II TM distance: >3 FB Neck ROM: full Dental (+) missing and implants Cardiovascular Pulmonary Anesthesia Plan ASA Score: 3 . Plan for MAC - Anesthetic plan, risks, benefits and alternatives discussed with: patient or personal service representative. Routine analgesia and antiemetics . History & Physical Review History and physical reviewed and following examination; no interval change. . ICAL RESIDENT documented in this encounter Miscellaneous Notes Anesthesia Care Transfer Note - Charity Bueno APRN REAL PROPERTY APPRAISER - 10/20/2015 9:30 AM CST Patient: Shahnaz Landers Lenin COMBINED COLONOSCOPY, SINGLE OR MULTIPLE BIOPSY/POLYPECTOMY BY BIOPSY (N/A Rectum) COMBINED COLONOSCOPY, REMOVE TUMOR/POLYP/LESION BY SNARE (N/A Rectum) Additional Information@[email or web address]@ Diagnosis: HISTORY OF SMALL BOWEL CANCER Diagnosis Additional Information: No value filed. Anesthesia Type: MAC Note: Airway :Face Mask Patient transferred to:PACU Comments: VSS Electronically Signed By: Charity Bueno CRNA, APRN CRNA October 20, 2015 9:30 AM ICAL RESIDENT documented in this encounter Plan of Treatment Not on filedocumented as of this encounter Visit Diagnoses Not on filedocumented in this encounter Administered Medications Inactive Administered Medications - up to 3 most recent administrations Medication Order MAR Action Action Date Dose Rate Site fentaNYL (SUBLIMAZE) injection Given 10/20/2015 8:50 AM SURGICAL RESIDENT 100 mcg PRN, moderate to severe pain, Starting on Tue10/20/15 at 0850, Anesthesia Intra-op lactated ringers infusion New Bag 10/20/2015 8:21 AM SURGICAL RESIDENT Intravenous, CONTINUOUS PRN, Anesthesia Intra-op, Starting on Tue10/20/15 at 0821, Until Tue10/20/15 at 0930 lidocaine injection 2% (MDV) Given 10/20/2015 8:50 AM SURGICAL RESIDENT 20 mg PRN, Starting on Tue10/20/15 at 0850, Anesthesia Intra-op midazolam (VERSED) injection Given 10/20/2015 8:50 AM SURGICAL RESIDENT 2 mg PRN, anxiety, Starting on Tue10/20/15 at 0850, Anesthesia Intra-op ondansetron (ZOFRAN) injection Given 10/20/2015 8:50 AM SURGICAL RESIDENT 4 mg PRN, nausea, vomiting, Administer over 2-5 Minutes, Starting on Tue10/20/15 at 0850, Anesthesia Intra-op propofol (DIPRIVAN) infusion Rate/Dose 10/20/2015 9:19 150 mcg/kg/min 88.2 mL/hr Intravenous, CONTINUOUS PRN, Change AM SURGICAL RESIDENT Starting on Tue10/20/15 at 0853, Anesthesia Intra-op Rate/Dose Change 10/20/2015 8:59 AM SURGICAL RESIDENT 100 mcg/kg/min 58.8 mL/hr New Bag 10/20/2015 8:53 AM SURGICAL RESIDENT 75 mcg/kg/min 44.1 mL/hr propofol (DIPRIVAN) injection 10 mg/mL v ial Given 10/20/2015 8:58 AM SURGICAL RESIDENT 30 mg PRN, Starting on 10/20/15 at 0858, Anesthesia Intra-op documented in this encounter Care Teams Foaming Machine Operator Relationship Specialty Start Date End Date Liudmila David MD PCP - General Family Practice 02/12/14 1 12/06/19 Liudmila David MD Assigned PCP 10/12/15 documented as of this encounter
--- OUTSIDE RECORDS SUMMARY | 2022-08-18 09:30 | XMS_ITS | Encounter Summary ---
:1945 Author Organization [facility] Address [address] [place] [address] Care Team Providers Name Role Phone Liudmila David MD Primary Care Provider Unavailable Liudmila David MD Unavailable Unavailable Reason for Referral Consultation - Closed Specialty Diagnoses / Procedures Referred By Contact Refer red To Contact Diagnoses Abdominal wall hernia Liudmila David MD Maurer, David J, MD [address], [facility] [address] [place] [address] [place] [address] Phone: Fax: Referral ID Status Reason Start Date Expiration Date Visits Requ ested Visits Authorized [id number] Closed 02/25/2016 02/24/2017 1 1 Reason for Visit Reason Comments Physical Encounter Details Date Type Department Care Team Description 02/18/2016 Office Visit [facility] Liudmila David for gynecological examination without abnormal finding (Primary Dx); Prateek Gatica MD Essential hypertension, mark gn; [address] Abdominal wall hernia; [address] Calculus of kidney; [place], [place] ACP (advance care planning) [phone] Social History Tobacco Use Types Packs/Day Years Used Date Smoking Tobacco: Former Cigarettes 0.5 15 Quit : 11/07/1995 Smokeless Tobacco: Never Alcohol Use Standard Drinks/Week Comments Yes 0 (1 standard drink = 0.6 oz pure alcoho l) rare - wine once in a while Sex Assigned at Date Recorded Female 10/17/2018 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 as of this encounter Last Filed Vital Signs Vital Sign Reading Time Taken Comments Blood Pressure 132/72 02/18/2016 10:13 AM CDT Pulse 98 02/18/2016 10:13 AM CDT Temperature - - Respiratory Rate - - Oxygen Saturation - - Inhaled Oxygen Concentration - - Weight 101 kg (222 lb 9.6 oz) 02/18/2016 10:13 AM CDT Height 169.5 cm (5' 6.75) 02/18/2016 10:13 AM CDT Body Mass Index 35.13 02/18/2016 10:13 AM CDT documented in this encounter Progress Notes Liudmila David MD - 02/18/2016 10:33 AM CDT SUBJECTIVE: Shahnaz Phelps is an 70 year old 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 Menopause at age 49. No bleeding, spotting, or discharge noted. Estrogen replacement therapy: none currently, has taken in past (Prempro, [place] in 2002/ after 5-7?? Years) SAMANTA exposure: no History of abnormal Pap smear: No Family history of uterine or ovarian cancer: Yes - mother age 90 Family history of colon cancer: father,?? brother Regular self breast exam: Yes History of abnormal mammogram: No Family history of breast cancer: No History of abnormal lipids: No Patient Active Problem List Diagnosis ??? History of colonic polyps ??? ACNE NEC ??? Diverticulosis of large intestine ??? Osteoarthritis ??? 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 Obesity ??? Essential Hypertension, Benign ??? ACP (advance care planning) ??? Calculus [...] ??? Colonoscopy N/A 10/20/2015 3 year recheck Family History Problem Relation Age of Onset ??? Cancer Brother colon ??? Cancer - colorectal Mother ??? Cancer Mother 91 endometrial ??? Colon Cancer Mother ??? Cancer - colorectal Father ??? Colon Cancer Father ??? Breast Cancer Paternal Grandmother ??? Colon Cancer Brother ??? Colon Cancer Brother Current Outpatient Prescriptions Medication ??? hydrochlorothiazide (HYDRODIURIL) 25 MG tablet ??? amLODIPine (NORVASC) 2.5 MG tablet ??? Multiple Vitamins-Minerals (MULTIVITAMIN OR) No current facility-administered medications for this visit. Review Of Systems Skin: negative Eyes: bilateral cataract surgery- Ears/Nose/Throat: dental implant in November Respiratory: No shortness of breath, dyspnea on exertion, cough, or hemoptysis Cardiovascular: Dr Dent- recent injection, veins- Rejig Yumiko- [phone] Gastrointestinal: history of hernia surgery- concerned aobut puch Genitourinary: sees Dr Jackson- history of renal calculi- Musculoskeletal: twisted left knee- raking, mild posterior discomfort Neurologic: negative Psychiatric: negative Hematologic/Lymphatic/Immunologic: negative Endocrine: winter weight gain- Health Care Maintenance Pap smear 2013- Normal Mammogram_ 02/2015- scheduled for tomorrow(paternal breast cancer- postmenopausal)- titanium clip 8-9years - benign biopsy Dexa: 2012 Normal Colonoscopy is up to date Diet: likes sweets- eats vegetables Exercise:Inactive in winter- OBJECTIVE: BP 132/72 mmHg Pulse 98 Ht 1.695 m (5' 6.75) Wt 100.971 kg (222 lb 9.6 oz) BMI 35.14 kg/m2 General appearance: Healthy Skin: Normal. No [...] organomegaly. Bowel sounds are normal. No CVA tenderness. When standing, lacks central abdomen protrudes- ? Abdominal hernia Pelvic: deferred Rectal exam: deferred Extremities: negative. PLAN: Second opinion for abdominal hernia- referred to Dr Alfaro- mid abdominal documented in this encounter Nursing Notes July Keenan MA - 02/18/2016 10:15 AM CDT Shahnaz is here today for a fasting phy. Pre-visit planning discussed: Immunizations - up to date Mammogram - up to date Colonoscopy - up to date Asthma - na PHQ9/JAY - na Fall Risk - today Questioned patient about current smoking habits. Pt. quit smoking some time ago. Body mass index is 35.14 kg/(m^2). BP Cuff right Arm lrg Cuff PULSE regular My Chart: accepts ETOH screening: Questions: 1-How often do you have a drink containing alcohol? 1 times per week(s) 2-How many drinks containing alcohol do you have on a typical day when you are Drinking? 1 3- How often do you have 5 or more drinks on one occasion? 0 per years Have you ever: @None of the patient's responses to the CAGE screening were positive / Negative CAGE score@ documented in this encounter Plan of Treatment Not on filedocumented as of this encounter Procedures Procedure Name Priority Date/Time Associated Diagnosis Comme nts BASIC METABOLIC Routine 02/18/2016 11:21 Encounter for Results for this PANEL AM CDT gynecological procedure are in examination without the resu lts abnormal finding section. HEMOGLOBIN A1C Routine 02/18/2016 11:18 Encounter for Results for this AM CDT gynecological procedure are in examination without the resu lts abnormal finding section. HC VENOUS Routine 02/18/2016 11:03 Encounter for COLLECTION AM CDT gynecological examination without abnormal finding documented in this encounter Results (ABNORMAL) BASIC METABOLIC PANEL ([facility]) (02/18/2016 11:21 AM CDT) P athologist Signature Glucose 105 (H) 65 - 99 [facility] mg/dL [facility] Comment: ? Fasting reference interv al Urea Nitrogen 19 7 - 25 mg/dL [facility] Creatinine 0.66 0.60 - 0.93 mg/dL [facility] Comment: For patients >49 years of age, the refer ence limit for Creatinine is approximately 13% high er for people identified as -Bruneian. GFR Estimate 89 > OR = 60 [facility] mL/min/1.73m2 EGFR 104 > OR = 60 [facility] Bruneian mL/min/1.73m2 BUN/Creatinine NOT APPLICABLE 6 - 22 (calc) [facility] Ratio Sodium 140 135 - 146 mmol/L [facility] Potassium 3.7 3.5 - 5.3 mmol/L [facility] Chloride 101 98 - 110 mmol/L [facility] Carbon Dioxide 26 19 - 30 mmol/L [facility] Calcium 9.9 8.6 - 10.4 mg/dL [facility] Specimen Anatomical Collection Method Collection Time Receive d Time (Source) Location / / Volume Laterality Blood specimen 02/18/2016 11:21 6 2:57 (specimen) AM CDT AM CDT Resulting Agency Comment Performing Organization Information: ? CB ? [facility] ? [address] [place], [place] [address] ? Juanito Hardy M.D. Liudmila David MD LAB - BLOOD ORDERABLES Performing Organization Address City/State/ZIP Code Phon e Number [facility] [address] [place], [place] [address] [facility] [address] [place], [place] [address] Hemoglobin A1c ([facility]) (02/18/2016 11:18 AM CDT) P athologist Signature Hemoglobin A1C 5.7 4.3 - 6.0 % [facility] INTERNAL Specimen (Source) Anatomical Collection Method Collection Time Re ceived Time Location / / Volume Laterality Blood specimen 02/18/2016 11:18 (specimen) AM CDT Liudmila David MD LAB - BLOOD ORDERABLES Performing Organization Address City/State/ZIP Code Phon e Number [facility] documented in this encounter Visit Diagnoses Diagnosis Encounter for gynecological examination without abnormal finding - Primary Routine gynecological examination Essential hypertension, benign Abdominal wall hernia Ventral hernia, unspecified, without men tion of obstruction or gangrene Calculus of kidney ACP (advance care planning) Other specified counseling documented in this encounter Care Teams Health Editor Relationship Specialty Start Date End Date Liudmila David MD PCP - General Family Practice 02/12/1412/06/20 Liudmila David MD Assigned PCP 10/12/15 documented as of this encounter
--- OUTSIDE RECORDS SUMMARY | 2022-08-18 09:30 | XMS_ITS | Encounter Summary ---
:1945 Author Organization [facility] Address [address] [place] [address] Care Team Providers Name Role Phone Liudmila David MD Primary Care Provider Unavailable Liudmila David MD Unavailable Unavailable Reason for Visit (Routine) - Closed Specialty Diagnoses / Procedures Referred By Contact Refer red To Contact Radiology / Radiology. Diagnoses sb; Epic. Office to give prep. Rh Ct Scan [facility] Procedures CT ABDOMEN PELVIS [address] [place] [address] Phone: Fax: Referral ID Status Reason Start Date Expiration Date Visits Requ ested Visits Authorized [id number] Closed 03/01/2016 03/01/2017 1 1 Encounter Details Date Type Department Care Team Description 03/03/2016 Hospital Encounter [facility] Jeanmarie Alfaro, Malignant neoplasm of ascending colon (H); Mercedes Saucedo MD Incisional hernia, without obstruction o r gangrene [address] [facility] [address] [place] [id number] Social History Tobacco Use Types Packs/Day Years Used Date Smoking Tobacco: Former Cigarettes 0.5 15 Quit : 11/07/1995 Smokeless Tobacco: Never Alcohol Use Standard Drinks/Week Comments Yes 0 (1 standard drink = 0.6 oz pure alcoho l) rare - wine once in a while Sex Assigned at Date Recorded Female 10/17/2018 7:14 PM 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 documented as of this encounter Medications at Time of Discharge Medication Sig Dispensed Refills Start Date End Date Multiple Vitamins-Minerals Take 1 tablet by 0 (MULTIVITAMIN OR) mouth daily amLODIPine (NORVASC) 2.5 MG Take 3 tablets 270 tablet 1 02/0510/13/2016 tabletIndications: Essential (7.5 mg) by hypertension, benign mouth daily hydrochlorothiazide Take 1 tablet 90 tablet 1 02/18/2016 (HYDRODIURIL) 25 MG (25 mg) by mouth tabletIndications: Essential daily hypertension, benign, Calculus of kidney documented as of this encounter Progress Notes Jeanmarie Alfaro MD - 03/04/2016 4:12 PM CDT Quick Note: Patient was notified of these results. She is already aware for kidney stones. No other abnormalities are noted. With these results, no further surgery would be considered. To manage the bulging at her hernia repair site, she will attempt weight loss. Jeanmarie Alfaro MD 03/04/2016 4:11 PM documented in this encounter Plan of Treatment Not on filedocumented as of this encounter Procedures Procedure Name Priority Date/Time Associated Diagnosis Comme nts CT ABDOMEN PELVIS W Routine 03/03/2016 11:20 AM Malignant neop lasm Results for this CONTRAST CDT of ascending colon procedure are in (H) the results Incisional hernia, section. without obstruction or gangrene documented in this encounter Results CT Abdomen [...] truction or gangrene documented in this encounter Administered Medications Inactive Administered Medications - up to 3 most recent administrations Medication Order MAR Action Action Date Dose Rate Site 0.9% sodium chloride BOLUS New Bag 03/03/2016 11:03 AM CDT 55 mLs Intravenous, 1,000 mL, ONCE, On Tue03/03/16 at 1115, For 1 dose iopamidol (ISOVUE-370) 76% solution 500 mL Given 03/03/2016 11:03 AM CDT 100 mLs 500 mL, Intravenous, ONCE, On Tue03/03/16 at 1115, For 1 dose documented in this encounter Care Teams Lead Cytogenetic Technologist Relationship Specialty Start Date End Date Liudmila David MD PCP - General Family Practice 02/12/14 1 12/06/19 Liudmila David MD Assigned PCP 10/12/15 documented as of this encounter
--- OUTSIDE RECORDS SUMMARY | 2022-08-18 09:30 | XMS_ITS | Encounter Summary ---
:1945 Author Organization [facility] Address [address] [place] [address] Care Team Providers Name Role Phone Liudmila David MD Primary Care Provider Unavailable Reason for Visit Reason Comments Pre-Op Exam Encounter Details Date Type Department Care Team Description 10/06/2015 Office Visit [facility] Liudmila David Preope rative examination (Primary Dx); Prateek Gatica MD History of malignant carcino id tumor; [address] Essential hypertension, mark gn; [address] [place] [address] Social History Tobacco Use Types Packs/Day Years Used Date Smoking Tobacco: Former Cigarettes 0.5 15 Quit : 11/07/1995 Smokeless Tobacco: Never Alcohol Use Standard Drinks/Week Comments Yes 0 (1 standard drink = 0.6 oz pure alcoho l) rare - wine once in a while Sex Assigned at Date Recorded Female 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 Last Filed Vital Signs Vital Sign Reading Time Taken Comments Blood Pressure 138/68 10/06/2015 11:37 AM BENCH WORKER APPRENTICE Pulse 86 10/06/2015 11:37 AM BENCH WORKER APPRENTICE Temperature 37 ??C (98.6 ??F) 10/06/2015 11:37 AM BENCH WORKER APPRENTICE Respiratory Rate - - Oxygen Saturation - - Inhaled Oxygen Concentration - - Weight 100 kg (220 lb 6.4 oz) 10/06/2015 11:37 AM BENCH WORKER APPRENTICE Height 168.9 cm (5' 6.5) 10/06/2015 11:37 AM BENCH WORKER APPRENTICE Body Mass Index 35.04 10/06/2015 11:37 AM BENCH WORKER APPRENTICE documented in this encounter Progress Notes Liudmila David MD - 10/06/2015 11:42 AM CST [facility] [address] [place] [address]. [address] [facility] [address] Dept: [phone] PRE-OP EVALUATION: Today's date: 10/06/2015 Shahnaz Phelps (: 1945) presents for pre-operative evaluation assessment as requestedby Dr. Lane. She requires evaluation and anesthesia risk assessment prior to undergoing surgery/procedure for treatment of colonoscopy . Proposed procedure: colonoscopy Date of Surgery/ Procedure: 10/20/2015 Time of Surgery/ Procedure: 07:00AM Hospital/Surgical Facility: [facility] Primary Physician: Liudmila David Type of Anesthesia [...] YOUR RELATIVES EVER HAD PROBLEMS WITH ANESTHESIA? Vomited for 12 hours after anesthesia for vein surgery 14. NO - Do you have sleep apnea, excessive snoring or daytime drowsiness? 15. NO - Do you have any prosthetic heart valves? 16. NO - Do you have prosthetic joints? 17. NO - Is there any chance that you may be ? HPI: Brief HPI related to upcoming procedure: colonoscopy: surveillance carcinoid tumor MEDICAL HISTORY: Patient Active Problem List Diagnosis Date Noted ??? History of malignant carcinoid tumor 04/17/2015 Priority: Medium ??? Health [facility] 2012 Priority: Medium State Tier Level: Tier 2 Status: n/a Trust Vault Custodian: See Letters for [facility] Care Plan ??? Calculus of kidney 03/28/2012 Priority: Medium ??? Counseling regarding advanced directives 02/26/2012 Priority: Medium Advance Care Planning: ACP Review and Resources Provided: Reviewed chart for advance care plan. Shahnaz Phelps has noplan or code status on file. Discussed available resources and provided with information. Confirmed code status reflects current choices pending further ACP discussions. Confirmed/documented designateddecision maker(s). See permanent comments section of demographics in clinical tab. Added by July Keenan on 03/18/2014 Diagnosis updated by automated process. Provider to review and confirm. ??? Essential Hypertension, Benign 02/25/2009 Priority: Medium ??? Obesity 12/11/2007 Priority: [...] by automated process. Provider to review ??? ACNE NEC Priority: Medium ??? History of colonic polyps Priority: Medium Problem list name updated by automated process. Provider to review Past Medical History Diagnosis Date ??? Other acne ??? Need for prophylactic hormone replacement therapy (postmenopausal) ??? Allergic rhinitis due to pollen ??? Hypertension ??? 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 PONV (postoperative [...] Surgeon: Cheikh Barcenas MD; Location: [facility] Current Outpatient Prescriptions Medication Sig Dispense Refill ??? hydrochlorothiazide (HYDRODIURIL) 25 MG tablet Take 1 tablet (25 mg) by mouth daily 90 tablet 1 ??? amLODIPine (NORVASC) 2.5 MG tablet Take 3 tablets (7.5 mg) by mouth daily 270 tablet 1 ??? Multiple Vitamins-Minerals (MULTIVITAMIN OR) Take 1 tablet by mouth daily OTC products: no recent use of OTC ASA, NSAIDS or Steroids Allergies Allergen Reactions ??? Imidazole Antifungals hives [...] for fever, chills, change in weight E/M: NEGATIVE for ear, mouth and throat problems R: NEGATIVE for significant cough or SOB CV: NEGATIVE for chest pain, palpitations or peripheral edema GI: still complains of abdominal wall distension, site of hernia EXAM: BP 138/68 mmHg Pulse 86 Temp(Src) 98.6 ??F (37 ??C) (Oral) Ht 1.689 m (5' 6.5) Wt 99.973 kg(220 lb 6.4 oz) BMI 35.04 kg/m2 GENERAL APPEARANCE: healthy, alert and no [...] intact and speech normal DIAGNOSTICS: EKG: Normal EKG 04/17/2015 Hemoglobin Potassium Recent Labs Lab Test 04/17/15 1405 04/17/15 1349 02/27/15 1148 02/27/15 1145 02/27/15 1143 12/09/14 1017 08/03/14 0757 09/13/13 1645 HGB -- 13.3 -- 13.9 -- -- -- < > -- PLT -- -- -- 318 -- -- 211 < > -- NA 142 -- -- -- -- 141 -- < > -- POTASSIUM 3.5 -- -- -- 3.9 4.1 -- < > -- CR 0.78 -- -- -- -- 0.70 -- < > -- A1C -- -- 5.6 -- -- -- -- -- 5.4 < > = values in this interval not displayed. POTASSIUM Date Value Ref Range Status 10/06/2015 3.6 3.5 - 5.3 mmol/L Final ] HEMOGLOBIN Date Value Ref Range Status 10/06/2015 14.1 11.7 - 15.7 g/dL Final ] IMPRESSION: Reason for surgery/procedure: colonoscopy The proposed surgical procedure is considered LOW risk. REVISED CARDIAC RISK INDEX The patient has the following serious cardiovascular risks for perioperative complications such as (OR, PE, VFib and 3?? AV Block): No serious cardiac risks INTERPRETATION: 0 risks: Class I (very low risk - 0.4% complication rate) The patient has the following additional risks for perioperative complications: No identified additional risks ICD-10-CM 1. Preoperative examination Z01.818 HEMOGRAM/PLATELET ([facility]) VENOUS COLLECTION POTASSIUM ([facility]) 2. History of malignant carcinoid tumor Z85.9 HEMOGRAM/PLATELET ([facility]) VENOUS COLLECTION 3. Essential hypertension, benign I10 hydrochlorothiazide (HYDRODIURIL) 25 MG tablet amLODIPine (NORVASC) 2.5 MG tablet 4. Calculus of kidney N20.0 hydrochlorothiazide (HYDRODIURIL) 25 MG tablet RECOMMENDATIONS: --Approval given to proceed with proposed procedure, without further diagnostic evaluation Antihypertensive medications refilled at her current dose (she was advised to take 5 mg amlodipine rather than 7.5mg on the day of her surgery/ continue HCTZ) Signed Electronically by: Liudmila David MD, MD Copy of this evaluation report is provided to requesting physician. [place] Preop Guidelines H WORKER APPRENTICE documented in this encounter Nursing Notes July Keenan MA - 10/06/2015 11:39 AM CST Shahnaz is here today for a preop for colonoscopy. Pre-visit planning discussed: Immunizations - up to date Mammogram - up to date Colonoscopy - up to date Asthma - na PHQ9/JAY - na Fall Risk - today Questioned patient about current smoking habits. Pt. quit smoking some time ago. Body mass index is 35.04 kg/(m^2). BP Cuff right Arm lrg Cuff PULSE regular My Chart: accepts H WORKER APPRENTICE documented in this encounter Plan of Treatment Not on filedocumented as of this encounter Procedures Procedure Name Priority Date/Time Associated Diagnosis Comme nts POTASSIUM Routine 10/06/2015 12:49 Preoperative Results for this PM BENCH WORKER APPRENTICE examination procedure are i n the results section. ZZCL AFF Routine 10/06/2015 12:27 Preoperative Results for this HEMOGRAM/PLATELET PM BENCH WORKER APPRENTICE examination procedure are in History of malignant the res ults carcinoid tumor section. HC VENOUS Routine 10/06/2015 12:01 Preoperative COLLECTION PM BENCH WORKER APPRENTICE examination History of malignant carcinoid tumor documented in this encounter Results POTASSIUM ([facility]) (10/06/2015 12:49 PM BENCH WORKER APPRENTICE) athologist Signature Potassium 3.6 3.5 - 5.3 [facility] mmol/L [facility] Specimen Anatomical Collection Method Collection Time Receive d Time (Source) Location / / Volume Laterality Blood specimen 10/06/2015 12:49 5 3:30 (specimen) PM BENCH WORKER APPRENTICE AM BENCH WORKER APPRENTICE Resulting Agency Comment Performing Organization Information: ? CB ? [facility] ? [address] [place], [place] [address] ? Juanito Hardy M.D. Liudmila David MD LAB - BLOOD ORDERABLES Performing Organization Address City/State/ZIP Code Phon e Number [facility] [address] [place], [place] [address] [facility] [address] [place], [place] [address] HEMOGRAM/PLATELET ([facility]) (10/06/2015 12:27 PM BENCH WORKER APPRENTICE) athologist Signature WBC 6.7 4.0 - 11 [facility] 10*9/L RBC Count 4.47 3.8 - 5.2 [facility] 10*12/L Hemoglobin 14.1 11.7 - 15.7 [facility] g/dL Hematocrit 42.4 35.0 - 47.0 [facility] % MCV 94.8 78 - 100 fL [facility] MCH 31.5 26 - 33 pg [facility] MCHC 33.3 31 - 36 [facility] g/dL RDW 11.8 % [facility] Platelet Count 233 150 - 375 [facility] INTER[facility] 10^9/L Specimen (Source) Anatomical Collection Method Collection Time Re ceived Time Location / / Volume Laterality 10/06/2015 12:27 PM BENCH WORKER APPRENTICE Liudmila David MD LABORATORY Performing Organization Address City/State/ZIP Code Phon e Number [facility] documented in this encounter Visit Diagnoses Diagnosis Preoperative examination - Primary Preoperative examination, unspecified 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
--- OUTSIDE RECORDS SUMMARY | 2022-08-18 09:30 | XMS_ITS | Encounter Summary ---
:1945 Author Organization [facility] Address [address] [place] [address] Care Team Providers Name Role Phone Liudmila David MD Primary Care Provider Unavailable Reason for Visit Reason Comments Pharyngitis Encounter Details Date Type Department Care Team Description 08/07/2015 Office Visit [facility] (Primary Physicians MD Reid Dx) [address] [place] [address], [id number] [place] [phone] Social History Tobacco Use Types Packs/Day Years Used Date Smoking Tobacco: Former Cigarettes 0.5 15 Quit : 11/07/1995 Smokeless Tobacco: Never Alcohol Use Standard Drinks/Week Comments Yes 0 (1 standard drink = 0.6 oz pure alcoho l) rare - wine once in a while Sex Assigned at Date Recorded Female 10/17/2018 7:14 PM CLERICAL OFFICE documented as of this encounter Last Filed Vital Signs Vital Sign Reading Time Taken Comments Blood Pressure 130/72 08/07/2015 11:56 AM CDT Pulse 74 08/07/2015 11:56 AM CDT Temperature 36.9 ??C (98.4 ??F) 08/07/2015 11:56 AM CDT Respiratory Rate - - Oxygen Saturation 97% 08/07/2015 11:56 AM CDT Inhaled Oxygen Concentration - - Weight 96.6 kg (213 lb) 08/07/2015 11:56 AM CDT Height 167.6 cm (5' 6) 08/07/2015 11:56 AM CDT Body Mass Index 34.38 08/07/2015 11:56 AM CDT documented in this encounter Progress Notes [place] MD - 08/07/2015 12:09 PM CDT SUBJECTIVE: Shahnaz Phelps is a 69 year old female who complains of mild sore throat for 25 days. She denies a history of productive cough, sweats, chills, myalgias, wheezing and fatigue and denies a historyof asthma. Patient does not smoke cigarettes. Pt has tried Zpack several weeks ago-given by UC despite neg RST-no change in symptoms , also given magic mouthwash -might have helped a little No heartburn, non allergy symptoms , no SHAHID I use Patient Active Problem List Diagnosis ??? PERS HX COLONIC POLYPS ??? ACNE NEC ??? DIVERTICULOSIS OF COLON W/O BLEED ??? OSTEOARTHROS NOS-UNSPEC ??? 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 OBESITY NOS ??? Essential Hypertension, Benign ??? Advanced care planning/counselling discussion ??? Calculus of kidney ??? Health Half-Way ??? History of malignant carcinoid tumor Past Medical History Diagnosis Date ??? Other acne ??? Need for prophylactic hormone replacement therapy (postmenopausal) ??? Allergic rhinitis due to pollen ??? Hypertension ??? 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 PONV (postoperative nausea and vomiting) vomitted for 12 hours after surgery ??? 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 Cancer Brother colon ??? Cancer - colorectal Mother ??? Cancer - colorectal Father ??? Cancer Mother 91 endometrial ??? Breast Cancer Paternal Grandmother ??? Colon Cancer Brother History Social History ??? Marital Status: Spouse Name: N/A Number of Children: 1 ??? 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 Smoking status: Former Smoker -- 0.50 packs/day for 15 years Quit date: 11/07/1995 ??? Smokeless tobacco: Never Used ??? Alcohol Use: 0.0 oz/week 0 Not specified per week Comment: rare - wine once in a while ??? Drug Use: No ??? Sexual Activity: Partners: Male Other Topics Concern ??? Service No ??? Blood Transfusions No ??? Caffeine Concern No ??? Occupational Exposure No ??? Hobby Hazards No ??? Stress Concern No ??? Weight Concern Yes ??? Special Diet No ??? Back Care No ??? Exercise Yes ??? Bike Helmet Yes ??? Seat Belt Yes Social History Narrative Past Surgical History Procedure Laterality Date ??? [...] MD; Location: OR ??? Hrw vein stripper 2013 lower leg sclerosis/ laser therapy ??? Breast [...] (LOCATION); Surgeon: Cheikh Barcenas MD; Location: OR Current Outpatient Prescriptions on File Prior to Visit: amLODIPine (NORVASC) 2.5 MG tablet Take 3 tablets (7.5 mg) by mouth daily hydrochlorothiazide (HYDRODIURIL) 25 MG tablet Take 1 tablet (25 mg) by mouth daily Multiple Vitamins-Minerals (MULTIVITAMIN OR) Take 1 tablet by mouth daily Calcium Citrate-Vitamin D (CITRACAL + D PO) Take 630 mg by mouth Vit D - 500iu Calcium 630mg Sodium 10mg takes two pills qd No current facility-administered medications on file prior to visit. Allergies: Imidazole antifungals and Penicillins Immunization History Administered Date(s) Administered ??? Influenza (IIV3) 08/27/1998 ??? Pneumococcal (PCV 13) 02/27/2015 ??? Pneumococcal 23 valent 02/26/2012 ??? TD (ADULT, 7+) 12/08/1990, 03/13/2001 ??? TDAP (BOOSTRIX AGES 10-64) 03/29/2011 OBJECTIVE: She appears well, vital signs are as noted by the nurse. Ears normal. Throat and pharynx normal. Neck supple. No adenopathy in the neck. Nose is congested. Sinuses non tender. The chest is clear, without wheezes or rales. ASSESSMENT: Throat irritation-no evidence GERD, infection, med related-may be allergic but pt does not feel she has allergies PLAN:recommend she try Flonase OTC, if not better in 1-2 weeks see ENT for scope Symptomatic therapy suggested: push fluids and rest. Call or return to clinic prn if these symptoms worsen or fail to improve as anticipated. documented in this encounter Nursing Notes America Randolph CMA - 08/07/2015 11:56 AM CDT Shahnaz Phelps is here for a sore throat x 1 month. Some days it is good and then it gets a little worse. Usually has a small tickle which makes her cough documented in this encounter Plan of Treatment Not on filedocumented as of this encounter Visit Diagnoses Diagnosis Throat pain - Primary documented in this encounter Care Teams Screwmaker Automatic Relationship Specialty Start Date End Date Liudmila David MD PCP - General Family Practice 02/12/14 1 12/06/19 documented as of this encounter
--- OUTSIDE RECORDS SUMMARY | 2022-08-18 09:30 | XMS_ITS | Encounter Summary ---
:1945 Author Organization [facility] Address [address] [place] [address] Care Team Providers Name Role Phone Liudmila David MD Primary Care Provider Unavailable Reason for Visit Reason Comments Surgical Followup PO open repair of ventral he rnia 05/02/2015 Encounter Details Date Type Department Care Team Description 05/20/2015 Office Visit [facility] Enid Nichols w-up examination, following unspecified surgery (Primary Dx); Surgery Clinic MARISSA Carlson Abdominal mass; [place] [address] Abdominal abscess (H) [address] [facility] [address] [address] [place], [place] [phone] (Wo rk) [phone] Social History Tobacco Use Types Packs/Day Years Used Date Smoking Tobacco: Former Cigarettes 0.5 15 Quit : 11/07/1995 Smokeless Tobacco: Never Alcohol Use Standard Drinks/Week Comments Yes 0 (1 standard drink = 0.6 oz pure alcoho l) rare - wine once in a while Sex Assigned at Date Recorded Female 10/17/2018 7:14 PM HOSPITAL NURSING ASSISTANT documented as of this encounter Patient Instructions Patient InstructionsLori Berg - 05/20/2015 1:52 PM CDT ABDOMINAL ULTRASOUND WITH APSIRATION Date: 06-03-15 Time: 10:00 AM Location: [facility] [address] [place] [address] Please check in at 9:45 AM Nothing to eat or drink 8 hrs before you exam documented in this encounter Progress Notes Enid Orta PA-C - 05/20/2015 1:40 PM CDT 05/20/2015 Re: Shahnaz Phelps : [address] David, I had the pleasure of seeing Shahnaz today in follow-up after her ventral incisional hernia repair with mesh on 05/02/[address] Jiménez. The patient tolerated the procedure well. Shahnaz is happyto report that her preoperative symptoms have improved. She is now tolerating a regular diet and having normal bowel movements. She denies abdominal pain today although complains of a large bulge surrounding the incision. On exam, the patient's incisions are healing well without signs of infection. Dermabond skin glue isintact and a normal healing ridge is present, as expected. Her abdomen is soft and nontender. There is a large bulge surrounding the affected area without a palpable fluid wave or signs and symptoms ofinfection. Shahnaz is recovering well postoperatively. I have discussed her case with Dr. Alfaro who has recommended an abdominal ultrasound with possible aspiration and possible culture. The patient will be notified with her results when they become available. We will be happy to see her in the future as needed. She was encouraged to call us with any questions or concerns. Sincerely, Enid Orta PA-C Please route or send letter to: Primary Care Provider (PCP) documented in this encounter Plan of Treatment Not on filedocumented as of this encounter Results US Drainage Seroma/Hematoma Abscess/Cyst [...] With continuou s ultrasound guidance, a 5 [place] needle and catheter was advanced into the [...] With continuou s ultrasound guidance, a 5 [place] needle and catheter was advanced into the [...] MD Enid Nichols PA-C IMG US ORDERABLES documented in this encounter Visit Diagnoses Diagnosis Follow-up examination, following unspeci fied surgery - Primary Abdominal mass Abdominal or pelvic swelling, mass or king mp, unspecified site Abdominal abscess Peritoneal abscess Abdominal abscess Peritoneal abscess documented in this encounter Care Teams Senior Merchandiser Relationship Specialty Start Date End Date Liudmila David MD PCP - General Family Practice 02/12/14 1 12/06/19 documented as of this encounter
--- OUTSIDE RECORDS SUMMARY | 2022-08-18 09:30 | XMS_ITS | Encounter Summary ---
:1945 Author Organization [facility] Address [address] [place] [address] Care Team Providers Name Role Phone Liudmila David MD Primary Care Provider Unavailable Reason for Visit Reason Onset Date Comments Nurse Advice Line 07/12/2015 sore throat Encounter Details Date Type Department Care Team Description 07/12/2015 Telephone [facility] Nurse Jamia Guillermo, Nurse Advice Line (sore Advisors RN throat) [address] [place] [address] Social History Tobacco Use Types Packs/Day Years Used Date Smoking Tobacco: Former Cigarettes 0.5 15 Quit : 11/07/1995 Smokeless Tobacco: Never Alcohol Use Standard Drinks/Week Comments Yes 0 (1 standard drink = 0.6 oz pure alcoho l) rare - wine once in a while Sex Assigned at Date Recorded Female 10/17/2018 7:14 PM LEGAL ENTITY CONTROLLER documented as of this encounter Miscellaneous Notes Telephone Encounter - Jamia Guillermo RN - 07/12/2015 3:37 PM CDT Call Type: Triage Call Presenting Problem: I've had a sore throat for about 5 days and now I have cracks on the side of my mouth. Caller is going out of town on a trip Tuesday and wanted UC hours and locations. Negative for Ebola/MERS screen. Triage Note: Guideline Title: Sore Throat or Hoarseness Recommended Disposition: Provide Home/Self Care Original Inclination: Wanted to speak with a nurse Override Disposition: Intended Action: Follow advice given Physician Contacted: No Sore throat AND no other symptoms ? YES Creamy-white sore patches in the mouth or throat AND patches brush off or come off when eating, leaving a new, bleeding surface ? NO Known exposure to mono (infectious mononucleosis) ? NO Evaluated by provider AND no improvement or symptoms worsening when following recommended treatment plan for 48 hours ? NO Choking sensation, cannot swallow own saliva with associated drooling and soft muffled voice ? NO Exposure to irritants (smoke, fumes, gases, etc.) ? NO Cannot open mouth fully due to severe pain ? NO Marked difficulty swallowing due to sore throat unresponsive to 12 hours of home care ? NO New onset of painful, swollen glands on sides of neck or under jaw ? NO Voice overuse (yelling, singing or prolonged speaking) AND not responding to home care ? NO Temperature of 101.5 F(38.6 C) or greater ? NO Exposure to an individual with diagnosed strep throat but who has not completed 24 hours of antibiotic therapy ? NO Localized tender, swollen glands (lymph nodes) that persist or are unimproved after 14 days ? NO Severe breathing problems not related to nasal congestion ? NO Coughed out foreign object after choking episode and NO further choking symptoms (can now talk, no coughing, gasping, or wheezing) ? NO Recent or recurrent episodes of sneezing, nasal congestion; watery nasal drainage; scratchy/itchy throat; red/itchy/watery eyes or cough unrelieved after one week of home care measures ? NO Sore throat not responding to 7 days of home care ? NO Has enlarged tonsils covered by yellow-white patches ? NO Hoarseness that has persisted more than 2 weeks ? NO Swallowing difficulty related to anything other than sore throat such as swallowed toxic or caustic substance, mechanical abnormalities, or motility problems ? NO New onset of stiff neck causing pain with forward head movement, severe generalized headache, fever, or altered mental status ? NO Any temperature elevation in an immunocompromised individual OR frail elderly ? NO Non-itchy, red skin rash ? NO No tonsils and white patches on back of throat ? NO and has temperature 100 F (37.7 C) or greater ? NO and has a temperature up to 100 F (37.7 C) that has not responded to 3 days of home care ? NO Had negative rapid strep test but no throat culture; having continued symptoms of sore throat, fever, swollen glands ? NO Sore throat with negative rapid strep test and negative throat culture ? NO Previous call within last week for similar symptoms AND has followed recommended self care measures for a week but symptoms have not improved or symptoms have worsened. ? NO Physician Instructions: Care Advice: Drink more fluids -- water, low-sugar juices, tea and warm soup, especially chicken broth, are options. Avoid caffeinated or alcoholic beverages because they can increase the chance of dehydration. Analgesic/Antipyretic Advice - Acetaminophen: Consider acetaminophen as directed on label or by pharmacist/provider for pain or fever PRECAUTIONS: - Use if there is no history of liver disease, alcoholism, or intake of three or more alcohol drinks per day - Only if approved by provider during or when - During , acetaminophen should not be taken more than 3 consecutive days without telling provider - Do not exceed recommended dose or frequency Analgesic/Antipyretic Advice - NSAIDs: Consider aspirin, ibuprofen, naproxen or ketoprofen for pain or fever as directed on label or by pharmacist/provider. PRECAUTIONS: - If over 65 years of age, should not take longer than 1 week without consulting provider. EXCEPTIONS: - Should not be used if taking blood thinners or have bleeding problems. - Do not use if have history of sensitivity/allergy to any of these medications or history of cardiovascular, ulcer, kidney, liver disease or diabetes unless approved by provider. - Do not exceed recommended dose or frequency. Sore Throat Relief: - Use salt water gargles (1/2 teaspoon salt in 8 oz. [240mL] warm water) every one to two hours. - Use a vaporizer or cool mist humidifier in the room when sleeping. - Suck on hard candy, nonprescription or herbal throat lozenges (sugar-free if diabetic) - Eat soothing, soft food/fluids (broths, soups, or honey and lemon juice in hot tea, Popsicles, frozen yogurt or sherbet, scrambled eggs, cooked cereals, Jell-O or puddings) whichever is most comforting. - Avoid eating salty, spicy or acidic foods. Total water intake includes drinking water, water in beverages, and water contained in food. Fluids make up about 80% of the body's total hydration need. Individual fluid requirement to maintain hydration vary based on physical activity, environmental factors and illness. Limit fluids that contain sugar, caffeine, or alcohol. Urine will be very light yellow color when you drink enough fluids. documented in this encounter Plan of Treatment Not on filedocumented as of this encounter Visit Diagnoses Not on filedocumented in this encounter Care Teams Foundation Coordinator Relationship Specialty Start Date End Date Liudmila David MD PCP - General Family Practice 02/12/14 1 12/06/19 documented as of this encounter
--- OUTSIDE RECORDS SUMMARY | 2022-08-18 09:30 | XMS_ITS | Encounter Summary ---
:1945 Author Organization [employer] Address [address] [place] [address]. [place] [address] Care Team Providers Name Role Phone Liudmila David MD Primary Care Provider Unavailable Reason for Visit Auth/Cert - Closed Specialty Diagnoses / Procedures Referred By Contact Refer red To Contact Surgery Diagnoses incisional hernia Rh Periop Services Procedures HERNIORRHAPHY INCISIONAL (LOCATION) [address] [place], [place] [address] Phone: Fax: Referral ID Status Reason Start Date Expiration Date Visits Requ ested Visits Authorized [id number] Closed 1 1 Encounter Details Date Type Department Care Team Description 05/02/2015 Anesthesia Event [facility] Chau Arreguin, DO [facility] ANESTHESIA [address] [place], [place] [address] [facility] Delaney Eng, WELT RANDER CORRECTION OFFICER [facility] ANESTHESIA PA [address] [place], [place] [id number] [address] [place] [address] Anesthesia Record Procedure Summary Procedure Name Responsible Anesthesia Start Anesthesia Stop Anesthesiologist Time Time Open incisional Lyla Arreguin DO 05/02/15 1255 05/02/15 14 47 hernia repair with mesh (Abdomen) Events Date Time Event Comment 05/02/2015 1232 1255 An Start 1255 Quick Note Pt ID'd, chart r eviewed.To OR, monitors on, smooth IV ind, easy mask a irway. DL x i with manuel 2, unable to view cords, limi mae neck extension. Pt repositioned for more optimal sni ffing position, DL x i, base of cords visualized with cricoid pressure, cords open and clear, OET with ease, B BS=, +ETCO2. 1256 MD Present 1259 An Start Data 1301 MD Present 1307 An Induction 1311 AN START SEVO 1311 An Intubation 1311 MD Present 1317 AN INCISION 1338 MD Present 1359 MD Present 1433 AN END SEVO 1438 Quick Note Spont resp, suct ioned orophaynx, tv.>450, pt awake with strong purposefu l mvmt, extubated to 100% O2 with adequate gas exc hange. 1440 an stop data 1443 MD Present 1447 An Stop Electronically s igned by Delaney Eng on May 02, 2015 2:47 PM Name Total midazolam 1mg/mL 2 mg fentanyl 50mcg/mL 200 mcg lidocaine 1% 30 mg propofol 10mg/mL 150 mg rocuronium 10mg/mL 45 mg glycopyrrolate 0.2mg/mL 0.8 mg neostigmine 1mg/mL 4 mg dexamethasone 4mg/mL 4 mg ondansetron 2mg/mL 4 mg clindamycin (CLEOCIN) intermittent infusion 900 mg 900 mg propofol infusion (mcg/kg/min) 534.05 mg LR 1,400 mL Agents Name O2 Air Exp Sevoflurane Blood No blood administrations on file. Lines, Drains, and Airways Type Details Placement Removal Peripheral IV 07/03/12; 0916; 22 G; 07/03/12 0916 by Right; Median cubital Teresa Gomes, vein (antecubital RN fossa); Chlorhexidine; Tolerated well; iv sedation Incision/Surgical Site 07/31/14; 1335; 07/31/14 1335 by Marge Tapia RN Incision/Surgical Site 05/02/15; Abdomen 05/02/15 0000 by Griselda Gutierrez RN Peripheral IV 20 G; Left; Lower 05/02/15 1232 by 05/02/15 1658 by July Carranza RN RETIRED ETT 05/02/15; 1311; Mask 05/02/15 1311 by 05/02/15 1 438 by Ventilation: Easy; Delaney Eng, Frantz Eng, Ease of Intubation: WELT RANDER CORRECTION OFFICER [facility] WELT RANDER CORRECTION OFFICER [facility] Easy (see quick note); Airway Size: 7; Cuffed; Oral; Blade Type: Manuel; Blade Size: 2; Place by: AL; Insertion Attempts: 2; Secured at (cm)to lip: 20 cm; Breath Sounds: Equal, clear and bilateral; End Tidal CO2: Present; Dentition: Intact; Grade View of Cords: 2 documented in this encounter Social History Tobacco Use Types Packs/Day Years Used Date Smoking Tobacco: Former Cigarettes 0.5 15 Quit : 11/07/1995 Smokeless Tobacco: Never Alcohol Use Standard Drinks/Week Comments Yes 0 (1 standard drink = 0.6 oz pure alcoho l) rare - wine once in a while Sex Assigned at Date Recorded Female 10/17/2018 7:14 PM 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 documented as of this encounter OR Notes Anesthesia Postprocedure Evaluation - Lyla Arreguin DO - 05/02/2015 3:08 PM CDT Patient: Shahnaz Phelps HERNIORRHAPHY INCISIONAL (LOCATION) (N/A Abdomen) Additional InformationProcedure(s): Open incisional hernia repair with mesh Diagnosis:incisional hernia Diagnosis Additional Information: Ventral incisional hernia Anesthesia Type: General Note: Anesthesia Post Evaluation Patient location during evaluation: PACU Patient participation: Able to fully participate in evaluation Level of consciousness: awake Pain management: adequate Airway patency: patent Anesthetic complications: no Cardiovascular status: acceptable Respiratory status: acceptable Hydration status: acceptable PONV: controlled Last vitals: Filed Vitals: 05/02/15 1147 05/02/15 1443 05/02/15 1450 BP: 146/80 135/70 Temp: 98.4 ??F (36.9 ??C) 99 ??F (37.2 ??C) Resp: 16 14 SpO2: 98% 98% Electronically Signed By: LYLA ARREGUIN DO May 02, 2015 3:08 PM Anesthesia Preprocedure Evaluation - Lyla Arreguin DO - 05/02/2015 12:31 PM CDT Anesthesia Evaluation . ROS/MED HX ENT/Pulmonary: (+)tobacco use, Past use , . . Neurologic: - neg neurologic ROS Cardiovascular: (+) hypertension . : . . . :. . METS/Exercise Tolerance: Hematologic: - neg hematologic ROS Musculoskeletal: - neg musculoskeletal ROS GI/Hepatic: - neg GI/hepatic ROS Renal/Genitourinary: - ROS Renal section negative Endo: (+) Obesity, . Psychiatric: - neg psychiatric ROS Infectious Disease: - neg infectious disease ROS Malignancy: Other: Comment: .Lab Test 04/17/15 02/27/15 08/03/14 08/02/14 08/01/14 1349 1145 0757 0730 1058 WBC -- 7.1 -- 7.4 12.2* HGB 13.3 13.9 -- 11.6* 11.8 MCV -- 95.5 -- 92 92 PLT -- 318 211 184 204 Lab Test 04/17/15 02/27/15 12/09/14 08/02/14 08/01/14 -- 03/18/14 1405 1143 1017 0730 1058 -- 1138 NA 142 -- 141 -- 143 -- 141 POTASSIUM 3.5 3.9 4.1 -- 3.4 < > 3.4* CHLORIDE 102 -- 101 -- 108 -- 101 CO2 27 -- 30 -- 29 -- 26 BUN 21 NOT AP* -- 17 NOT AP* -- 11 -- 19 NOT AP* CR 0.78 -- 0.70 -- 0.70 < > 0.76 ANIONGAP -- -- -- -- 6 -- -- CORNELIUS 10.0 -- 9.8 9.8 -- 8.6 -- 10.2 GLC 89 -- 107* 116* 134* -- 114* < > = values in this interval not displayed. - neg other ROS Physical Exam Normal systems: cardiovascular and pulmonary Airway Mallampati: II Dental Cardiovascular Rhythm and rate: regular and normal Pulmonary breath sounds clear to auscultation Anesthesia Plan ASA Score: 2 . Plan for General - with Intravenous induction. Maintenance will be Inhalation and Balanced. Anesthetic plan, risks, benefits and alternatives discussed with: patient or representative phlebotomy services. Routine analgesia and antiemetics History & Physical Review History and physical reviewed and following examination; no interval change. . documented in this encounter Miscellaneous Notes Anesthesia Care Transfer Note - Delaney Eng APRN CRNA - 05/02/2015 2:47 PM CDT Patient: Shahnaz Guevaraofield HERNIORRHAPHY INCISIONAL (LOCATION) (N/A Abdomen) Additional [email or web address] Diagnosis: incisional hernia Diagnosis Additional Information: No value filed. Anesthesia Type: General Note: Airway :Face Mask Patient transferred to:PACU Comments: To PACU, adequate gas exchange, report to RN. Electronically Signed By: Delaney Eng APRN CRNA May 02, 2015 2:47 PM documented in this encounter Plan of Treatment Not on filedocumented as of this encounter Visit Diagnoses Not on filedocumented in this encounter Administered Medications Inactive Administered Medications - up to 3 most recent administrations Medication Order MAR Action Action Date Dose Rate Site clindamycin (CLEOCIN) Given 05/02/2015 12:55 PM CDT 900 mg intermittent infusion 900 mg Routine, 900 mg, Intravenous, PRE-OP/PRE-PROCEDURE, Starting on Tue05/02/15 at 1159, Indications: Perioperative Pharmacoprophylaxis, Pre-procedure dexamethasone (DECADRON) injection Given 05/02/2015 1:06 PM CDT 4 mg PRN, Administer over 1-4 Minutes, Starting on Tue05/02/15 at 1306, Anesthesia Intra-op fentaNYL (SUBLIMAZE) injection Given 05/02/2015 2:40 PM CDT 50 mcg PRN, moderate to severe pain, Starting on Tue05/02/15 at 1306, Anesthesia Intra-op Given 05/02/2015 1:06 PM CDT 150 mcg glycopyrrolate (ROBINUL) injection Given 05/02/2015 2:31 PM CDT 0.6 mg PRN, Starting on Tue05/02/15 at 1306, Anesthesia Intra-op Given 05/02/2015 1:06 PM CDT 0.2 mg lactated ringers infusion New Bag 05/02/2015 1:44 PM CDT Intravenous, CONTINUOUS PRN, Anesthesia Intra-op, Starting on Tue05/02/15 at 1255, Until Tue05/02/15 at 1447 New Bag 05/02/2015 12:55 PM CDT lidocaine 1 % injection Given 05/02/2015 1:06 PM CDT 30 mg PRN, Starting on Tue05/02/15 at 1306, Anesthesia Intra-op midazolam (VERSED) injection Given 05/02/2015 12:55 PM CDT 2 mg PRN, anxiety, Starting on Tue05/02/15 at 1255, Anesthesia Intra-op neostigmine (PROSTIGMINE) injection Given 05/02/2015 2:31 PM CDT 4 mg Intravenous, PRN, Starting on Tue05/02/15 at 1431, Anesthesia Intra-op ondansetron (ZOFRAN) injection Given 05/02/2015 2:08 PM CDT 4 mg PRN, nausea, vomiting, Administer over 2-5 Minutes, Starting on Tue05/02/15 at 1408, Anesthesia Intra-op propofol (DIPRIVAN) infusion Rate/Dose 05/02/2015 2:21 25 mcg/kg/min 14.6 mL/hr Intravenous, CONTINUOUS PRN, Change PM CDT Starting on Tue05/02/15 at 1313, Anesthesia Intra-op Rate/Dose Change 05/02/2015 2:07 PM CDT 50 mcg/kg/min 29.1 mL/hr Rate/Dose Change 05/02/2015 1:31 PM CDT 100 mcg/kg/min 58.3 mL/hr propofol (DIPRIVAN) injection 10 mg/mL v ial Given 05/02/2015 1:06 PM CDT 150 mg PRN, Starting on Tue05/02/15 at 1306, Anesthesia Intra-op rocuronium (ZEMURON) injection Given 05/02/2015 1:57 PM CDT 15 mg PRN, Starting on Tue05/02/15 at 1306, Anesthesia Intra-op Given 05/02/2015 1:06 PM CDT 30 mg documented in this encounter Care Teams Ranger Aide Relationship Specialty Start Date End Date Liudmila David MD PCP - General Family Practice 02/12/14 1 12/06/19 documented as of this encounter
--- OUTSIDE RECORDS SUMMARY | 2022-08-18 09:30 | XMS_ITS | Encounter Summary ---
:1945 Author Organization [facility] Address [address] [place] [address] Care Team Providers Name Role Phone Liudmila David MD Primary Care Provider Unavailable Reason for Visit Auth/Cert - Closed Specialty Diagnoses / Procedures Referred By Contact Refer red To Contact Surgery Diagnoses incisional hernia Rh Periop Services Procedures HERNIORRHAPHY INCISIONAL (LOCATION) [address] [place], [place] [address] Phone: Fax: Referral ID Status Reason Start Date Expiration Date Visits Requ ested Visits Authorized [id number] Closed 1 1 Encounter Details Date Type Department Care Team Description 05/02/2015 Surgery [facility] Hunter Anders isional hernia [place] Peri[facility] Fred Cardona MD repair with mesh [address] [place], [place] [address] [phone] Surgery Details Date/Time Status Location OR Service Patient Case Class Case Type Trauma Class Case? 05/02/15 12:45 Posted [facility] OR OR 01 General Same Day PM Surgery Panel 1 Procedure LRB Anes Op Region Wound Class Commen ts Open incisional hernia N/A General Abdomen I-Clean Op en incisional hernia repair with mesh repair w ith mesh Surgeon Surgeon Role Service Panel Hunter Anders MD Primary General 1 Leny Peter PA-C Assisting Electronic Technologist Authorizati on 1 Special Needs 5' 6.5/ 215.5 lb per H&P BMI 34.27 documented in this encounter Social History Tobacco Use Types Packs/Day Years Used Date Smoking Tobacco: Former Cigarettes 0.5 15 Quit : 11/07/1995 Smokeless Tobacco: Never Alcohol Use Standard Drinks/Week Comments Yes 0 (1 standard drink = 0.6 oz pure alcoho l) rare - wine once in a while Sex Assigned at Date Recorded Female 10/17/2018 7:14 PM 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 O???Lenin Altamirano DIET: No restrictions. Increased fluid intake [...] Walk around frequently. You may consider an [id number] stool-softener. Your Pharmacist can assist you with [...] to discuss with the nurse or physician operations manager assistant. # There is a surgeon COSTING ANALYST on weekday evenings and over the weekend [...] Meade PA - 04/17/2015 1:11 PM CDT [facility] [address] [place] [address]. [address] [facility] [address] Dept: [phone] PRE-OP EVALUATION: Today's date: 04/17/2015 Shahnazragini Phelps (: 1945) presents for pre-operative evaluation assessment as requestedby Dr. Jiménez. She requires evaluation and anesthesia risk assessment prior to undergoing surgery/procedure for treatment of Hernia . Proposed procedure: Hernia Repair Date of Surgery/ Procedure: 05/02/15 Time of Surgery/ Procedure: 1:00pm Hospital/Surgical Facility: [facility] Primary Physician: Liudmila David Type of Anesthesia [...] carcinoid tumor 04/17/2015 Priority: Medium ??? [facility] 2012 Priority: Medium State Tier Level: Tier 2 Status: n/a Bark Grinder: See Letters for [facility] Care Plan ??? Calculus of kidney 03/28/2012 [...] evaluation report is provided to requesting physician. [facility] Preop Guidelines documented in this encounter Miscellaneous Notes Op Note - Hunter Anders MD - 05/02/2015 3:08 PM CDT PREOPERATIVE DIAGNOSIS: Ventral incisional hernia. POSTOPERATIVE DIAGNOSIS: Ventral incisional hernia. PROCEDURE: Open repair of ventral incisional with placement of underlay mesh. ANESTHESIA: General plus local. SURGEON: Hunter Jiménez MD ROVING MARKER: Leny Peter PA-C SPECIMENS: None submitted. COMPLICATIONS: [...] MD MT: [id number] Name: SHAHNAZ PHELPS Account: [id number] : 1945 Procedure Date: 05/02/2015 Document: [id number] cc: Liudmila Lane MD Brief Op Note - Hunter Anders MD - 05/02/2015 2:27 PM CDT [facility] Brief Operative Note Pre-operative diagnosis: Ventral incisional [...] Name Priority Date/Time Associated Diagnosis Comme nts HERNIORRHAPHY, 05/02/2015 12:44 PM Ventral incisional INCISIONAL, [...] CDT 11:55 AM CDT Hunter Anders MD [facility] POCT Performing Organization Address City/State/ZIP Code Phon e Number FV POINT OF CARE TEST, GLUCOSE POINT OF CARE TEST, GLUCOSE documented in this encounter Visit Diagnoses Not on filedocumented in this encounter Administered Medications Inactive Administered Medications - up to 3 most recent administrations Medication Order MAR Action Action Date Dose Rate Site bupivacaine (MARCAINE) Given 05/02/2015 2:28 PM 30 mLs Operative injection 0.5% (PF) CDT Site/Surgical S ite PRN, Starting on Tue05/02/15 at 1428, Intra-procedure fentaNYL (SUBLIMAZE) injection 25-50 mcg Given 05/02/2015 3:04 PM CDT 50 mcg 25-50 mcg, Intravenous, EVERY 2 MIN [...] mg (CANCELED) 1255 (Given - Provider: Delaney Eng APRN ECONOMIC FORECASTER) 900 mg, Intravenous, PRE-OP/PRE-PROCEDUR E, Starting Tue05/02/15 [...] tablet (COMPLETED) 1507 (Given - Provider: Lilly Mccray, RN) 1-2 tablet, Oral, ONCE PRN, moderate to severe pain, Starting on Tue05/02/15 at 1448, For 1 dose, One time prior to discharge. Maximum acetaminophen dose from all sources= 75 mg/kg/day not to exceed 4 grams, Post-procedure HYDROcodone-acetaminophen (NORCO) 5-325 MG per tablet 1-2 tablet (CANCELED) 1529 (Given - Provider: Lilly Mccray RN) 1-2 tablet, Oral, EVERY 4 HOURS PRN, mod erate to severe pain, Starting Tue05/02/15 at 1528, Maximum acetaminophen dose from all sources= 75 mg/kg/day not to exceed 4 grams, PACU/Phase II documented in this encounter Care Teams Wide Load Escort Relationship Specialty Start Date End Date Liudmila David MD PCP - General Family Practice 02/12/14 1 12/06/19 documented as of this encounter
--- OUTSIDE RECORDS SUMMARY | 2022-08-18 09:31 | XMS_ITS | Encounter Summary ---
:1945 Author Organization [facility] Address [address] [place] [address] Care Team Providers Name Role Phone Liudmila David MD Primary Care Provider Unavailable Reason for Visit Reason Comments Lab Only Encounter Details Date Type Department Care Team Description 12/09/2014 Orders Only [facility] Liudmila David us of kidney Physicians MD En (Primary Dx) [address] [address] Social History Tobacco Use Types Packs/Day Years Used Date Smoking Tobacco: Former Cigarettes 0.5 Quit : 11/07/1995 Smokeless Tobacco: Never Alcohol Use Standard Drinks/Week Comments Yes 0 (1 standard drink = 0.6 oz pure alcoho l) rare - wine once in a while Sex Assigned at Date Recorded Female 10/17/2018 7:14 PM 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 ARCH CHEMICAL ENGINEER Sruthi Mauricio I - 12/10/2014 3:26 PM CST Faxed results today ea ARCH CHEMICAL ENGINEER Sruthi Mauricio I - 12/09/2014 10:07 AM CST Orders from [facility] Dr. Jackson ARCH CHEMICAL ENGINEER documented in this encounter Plan of Treatment Not on filedocumented as of this encounter Procedures Procedure Name Priority Date/Time Associated Comments Diagnosis PTH, INTACT AND Routine 12/09/2014 10:17 Calculus Of Kidney Re sults for this CALCIUM ([facility]) AM RESEARCH CHEMICAL ENGINEER procedure ar e in the results section. URIC ACID Routine 12/09/2014 10:17 Calculus Of Kidney Resul ts for this AM RESEARCH CHEMICAL ENGINEER procedure are i n the results section. COMPREHENSIVE Routine 12/09/2014 10:17 Calculus Of Kidney Resu lts for this METABOLIC PANEL AM RESEARCH CHEMICAL ENGINEER procedure ar e in the results section. HC VENOUS COLLECTION Routine 12/09/2014 10:14 Calculus Of Kidn ey AM RESEARCH CHEMICAL ENGINEER documented in this encounter Results PTH {Parathyroid Hormone}, Intact and Calcium ([facility]) (12/09/2014 10:17 AM RESEARCH CHEMICAL ENGINEER) P athologist Signature PTH Intact 23 14 - 64 [facility] pg/mL [facility] Comment: Interpretive Guide ?Intact PTH ? Calcium ? ------- Normal Parathyroid ?Normal ? Normal Hypoparathyroidism ?Low or Low Mercedes l ?Low Hyperparathyroidism ?? Primary ?Normal or H igh ? High ?? Secondary ?High ? Normal or Low ?? Tertiary ? High ? High Non-Parathyroid ?? Hypercalcemia ?Low or Low Nor mal ?High Calcium 9.8 8.6 - 10.4 mg/dL [facility] Specimen Anatomical Collection Method Collection Time Receive d Time (Source) Location / / Volume Laterality Blood specimen 12/09/2014 10:17 5 2:49 (specimen) AM RESEARCH CHEMICAL ENGINEER AM RESEARCH CHEMICAL ENGINEER Resulting Agency Comment Performing Organization Information: ? CB ? [facility] ? [address] [facility], [place] [address] ? Juanito Hardy M.D. Liudmila David MD LAB - NON-BEAKER BLOOD LABS Performing Organization Address City/State/ZIP Code Phon e Number [facility] [address] [facility] [place] [address] [facility] [address] [facility] [place] [address] URIC ACID ([facility]) (12/09/2014 10:17 AM RESEARCH CHEMICAL ENGINEER) P athologist Signature Uric Acid 4.2 2.5 - 7.0 [facility] mg/dL [facility] Comment: Therapeutic target for gout patients: <6 .0 mg/dL ?? Specimen Anatomical Collection Method Collection Time Receive d Time (Source) Location / / Volume Laterality Blood specimen 12/09/2014 10:17 5 2:41 (specimen) AM RESEARCH CHEMICAL ENGINEER AM RESEARCH CHEMICAL ENGINEER Resulting Agency Comment Performing Organization Information: ? CB ? [facility] ? [address] [facility] [place] [address] ? Juanito Hardy M.D. Liudmila David MD LAB - BLOOD ORDERABLES Performing Organization Address City/State/ZIP Code Phon e Number [facility] [address] [facility] [place] [address] [facility] [address] [facility] [place] [address] (ABNORMAL) COMPREHENSIVE METABOLIC PANEL ([facility]) XCMP (12/09/2014 10:17 AM RESEARCH CHEMICAL ENGINEER) P athologist Signature Glucose 107 (H) 65 - 99 [facility] mg/dL [facility] Comment: ? Fasting reference interv al Urea Nitrogen 17 7 - 25 mg/dL [facility] Creatinine 0.70 0.50 - 0.99 mg/dL [facility] Comment: For patients >49 years of age, the refer ence limit for Creatinine is approximately 13% high er for people identified as -Panamanian. GFR Estimate 88 > OR = 60 [facility] mL/min/1.73m2 EGFR 102 > OR = 60 [facility] Panamanian mL/min/1.73m2 BUN/Creatinine NOT APPLICABLE 6 - 22 (calc) [facility] Ratio Sodium 141 135 - 146 mmol/L [facility] Potassium 4.1 3.5 - 5.3 mmol/L [facility] Chloride 101 98 - 110 mmol/L [facility] Carbon Dioxide 30 19 - 30 mmol/L [facility] Calcium 9.8 8.6 - 10.4 mg/dL [facility] Protein Total 6.9 6.1 - 8.1 g/dL [facility] Albumin 4.6 3.6 - 5.1 g/dL [facility] Globulin 2.3 1.9 - 3.7 g/dL [facility] Calculated (calc) A/G Ratio 2.0 1.0 - 2.5 (calc) [facility] Bilirubin Total 0.6 0.2 - 1.2 mg/dL [facility] Alkaline 91 33 - 130 U/L [facility] Phosphatase AST 22 10 - 35 U/L [facility] ALT 22 6 - 29 U/L [facility] Specimen Anatomical Collection Method Collection Time Receive d Time (Source) Location / / Volume Laterality Blood specimen 12/09/2014 10:17 5 2:41 (specimen) AM RESEARCH CHEMICAL ENGINEER AM RESEARCH CHEMICAL ENGINEER Resulting Agency Comment Performing Organization Information: ? CB ? [facility] ? [address] [place], [place] [phone] ? Juanito Hardy M.D. Liudmila David MD LAB - BLOOD ORDERABLES Performing Organization Address City/State/ZIP Code Phon e Number [facility] [address] [place], [place] [address] [address] [facility] [address] documented in this encounter Visit Diagnoses Diagnosis Calculus of kidney - Primary documented in this encounter Care Teams Test Center Manager Relationship Specialty Start Date End Date Liudmila David MD PCP - General Family Practice 02/12/14 1 12/06/19 documented as of this encounter
--- OUTSIDE RECORDS SUMMARY | 2022-08-18 09:31 | XMS_ITS | Encounter Summary ---
:1945 Author Organization [place] Address [address] [place] [address]. [place] [address] Care Team Providers Name Role Phone Liudmila David MD Primary Care Provider Unavailable Reason for Visit (Routine) - Closed Specialty Diagnoses / Procedures Referred By Contact Refer red To Contact Radiology / Radiology. Diagnoses Written Order Rh Nuclear Medicine Procedures NM SCAN2 [address] [place] [address] Phone: Fax: Referral ID Status Reason Start Date Expiration Date Visits Requ ested Visits Authorized [id number] Closed 05/02/2014 05/02/2015 1 1 Encounter Details Date Type Department Care Team Description 05/22/2014 Hospital Encounter [facility] Josiah lai, Jerry Brito MD Imaging [facility] RE[facility]AL [facility]G [address] [place] [address] [facility] [phone] [place] [address] [place], [place] [address] (Wo rk) Social History Tobacco Use Types Packs/Day Years Used Date Smoking Tobacco: Former Cigarettes Quit : 11/07/1995 Smokeless Tobacco: Never Alcohol Use Standard Drinks/Week Comments Yes 0 (1 standard drink = 0.6 oz pure alcoho l) rare Sex Assigned at Date Recorded Female 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 Medications at Time of Discharge Medication Sig Dispensed Refills Start Date End Date amLODIPine (NORVASC) 2.5 MG Take 3 tablets 270 tablet 1 03/0710/10/2014 tabletIndications: (7.5 mg) by mouth Essential hypertension, daily benign Calcium Citrate-Vitamin D Take 630 mg by 0 10/06/2015 (CITRACAL + D PO) mouth Vit D - 500iu Calcium 630mg Sodium 10mg takes two pills qd hydrochlorothiazide Take 1 tablet (25 90 tablet 1 4 10/10/2014 (HYDRODIURIL) 25 MG mg) by mouth tabletIndications: daily Essential hypertension, benign hydrocortisone (WESTCORT) Apply sparingly 60 g 0 03/1810/10/2014 0.2 % creamIndications: to affected area Dermatitis three times daily as needed. METRONIDAZOLE 1 % EX None Entered 0 GELIndications: Other acne ONE-A-DAY WOMENS 50 PLUS PO 1 TABLET DAILY 0 07/31/2014 TABS potassium chloride (K-DUR) Take 1 tablet (10 90 tablet 1 07/25/2014 10 MEQ tabletIndications: mEq) by mouth Low blood potassium daily documented as of this encounter Plan of Treatment Not on filedocumented as of this encounter Procedures Procedure Name Priority Date/Time Associated Comments Diagnosis NM OCTREOSCAN WHOLE Routine 05/22/2014 7:58 AM Carcinoid crisi s Results for this BODY CDT (H) procedure are in Enlarged lymph node the resu lts section. documented in this encounter Results NM Whole Body Octreoscan (05/22/2014 7:58 AM CDT) Anatomical Region Laterality Modality Abdomen/Pelvis, Chest, Neck, Head, Hip, C-spine, T-spine, Nuclear Medicine L-spine Specimen (Source) Anatomical Location Collection Method / Collectio n Time Received Time / Laterality Volume Impressions 05/22/2014 10:46 AM CDT IMPRESSION: Focus of abnormal radiotracer activity in the right lower quadrant is suspicious for a neuroendocr ine solid tumor, such as carcinoid. This finding may represent a bowel mass or enlarged mesenteric lymph node. Contrast-enhanced CT may be helpful for further evaluation. BRENDAN VIEYRA MD Narrative 05/22/2014 10:46 AM CDT NUCLEAR MEDICINE OCTREOSCAN WHOLE BODY May 22, 2014 at 0758 hours INDICATION: Carcinoid syndrome. COMPARISON: None. TECHNIQUE: Nuclear medicine was performe d. The patient received 6.1 mCi of In-111 Octreotide. At 4, 24, and 48 hours whole-body images were obtained from the vertex through th e mid thighs. FINDINGS: There is a focus of abnormal r adiotracer activity in the right lower quadrant, which is suspiciou s for a neuroendocrine solid tumor such as carcinoid. No other abnorm al radiotracer activity is identified. Physiologic radiotracer acti vity is noted within the spleen, kidneys, urinary bladder, and li rhoda. Mild radiotracer activity within the thyroid gland and bowel on th e delayed 48 hour images is also likely physiologic. Procedure Note Brendan Vieyra MD - 05/22/2014Forma tting of this note might be different from the original. NUCLEAR MEDICINE OCTREOSCAN WHOLE BODY J gio 2013 at 0758 hours INDICATION: Carcinoid syndrome. COMPARISON: None. TECHNIQUE: Nuclear medicine was performe d. The patient received 6.1 mCi of In-111 Octreotide. At 4, 24, and 48 hours whole-body images were obtained from the vertex through th e mid thighs. FINDINGS: There is a focus of abnormal r adiotracer activity in the right lower quadrant, which is suspiciou s for a neuroendocrine solid tumor such as carcinoid. No other abnorm al radiotracer activity is identified. Physiologic radiotracer acti vity is noted within the spleen, kidneys, urinary bladder, and li rhoda. Mild radiotracer activity within the thyroid gland and bowel on th e delayed 48 hour images is also likely physiologic. IMPRESSION IMPRESSION: Focus of abnormal radiotrace r activity in the right lower quadrant is suspicious for a neuroendocr ine solid tumor, such as carcinoid. This finding may represent a bowel mass or enlarged mesenteric lymph node. Contrast-enhanced CT may be helpful for further evaluation. BRENDAN VIEYRA MD Jerry Lane MD IM NM ORDERABLES documented in this encounter Visit Diagnoses Not on filedocumented in this encounter Care Teams Ladies Attendant Relationship Specialty Start Date End Date Liudmila David MD PCP - General Family Practice 02/12/14 1 12/06/19 documented as of this encounter
--- OUTSIDE RECORDS SUMMARY | 2022-08-18 09:31 | XMS_ITS | Encounter Summary ---
:1945 Author Organization [place] Address [address] [place] [address]. [place] [address] Care Team Providers Name Role Phone Liudmila David MD Primary Care Provider Unavailable Reason for Visit (Routine) - Closed Specialty Diagnoses / Procedures Referred By Contact Refer red To Contact Radiology / Radiology. Diagnoses Written Order Rh Nuclear Medicine Procedures NM RADIOPHARM [address] [place] [address] Phone: Fax: Referral ID Status Reason Start Date Expiration Date Visits Requ ested Visits Authorized [id number] Closed 05/02/2014 05/02/2015 1 1 Encounter Details Date Type Department Care Team Description 05/20/2014 Hospital Encounter [facility] [address] cinoid crisis (H); Mercedes Brito MD Enlarged lymph node [address] [facility] [place], [place] [facility] [id number] [address] [facility] [phone] [address] Social History Tobacco Use Types Packs/Day Years Used Date Smoking Tobacco: Former Cigarettes Quit : 11/07/1995 Smokeless Tobacco: Never Alcohol Use Standard Drinks/Week Comments Yes 0 (1 standard drink = 0.6 oz pure alcoho l) rare Sex Assigned at Date Recorded Female 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 BRENDAN VIEYRA MD Jerry Lane MD [facility] [place] ORDERABLES documented in this encounter Visit Diagnoses Diagnosis Carcinoid crisis (H) Enlarged lymph node Enlargement of lymph nodes documented in this encounter Administered Medications Inactive Administered Medications - up to 3 most recent administrations Medication Order MAR Action Action Date Dose Rate Site indium In-111 pentetreotide Given 05/20/2014 8:45 AM 6.1 millicu kwame (OCTREOSCAN) radioisotope CDT injection 6 dionna Curie 6 millicurie, Intravenous, ONCE, On Tue05/20/14 at 0845, For 1 dose, Supplied by, and administered by Nuclear Medicine. *HW* documented in this encounter Care Teams Guest Relations Associate Relationship Specialty Start Date End Date Liudmila David MD PCP - General Family Practice 02/12/14 1 12/06/19 documented as of this encounter
--- OUTSIDE RECORDS SUMMARY | 2022-08-18 09:31 | XMS_ITS | Encounter Summary ---
:1945 Author Organization [place] Address [address] [place] [address] Care Team Providers Name Role Phone Liudmila David MD Primary Care Provider Unavailable Edgar Cunningham MD Unavailable Unavailable Liudmila David MD Unavailable Unavailable Bruna Meade Unavailable [phone] Liudmila David MD Unavailable Unavailable Bruna Meade Unavailable [phone] Heidy Mesa Primary Care Provider Encounter Details Date Type Department Care Team Description 05/28/2014 [facility] Only [address] [phone] Social History Tobacco Use Types Packs/Day Years Used Date Smoking Tobacco: Former Cigarettes Quit : 11/07/1995 Smokeless Tobacco: Never Alcohol Use Standard Drinks/Week Comments Yes 0 (1 standard drink = 0.6 oz pure alcoho l) rare Sex Assigned at Date Recorded Female 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 Plan of Treatment Not on filedocumented as of this encounter Visit Diagnoses Not on filedocumented in this encounter Care Teams Loss Prevention Consultant Relationship Specialty Start Date End Date Liudmila David MD PCP - General Family Practice 02/12/14 1 12/06/19 Edgar Cunningham MD PCP - Assigned PCP 12/31/18 01/09/19 Heidy Mesa PCP - General Internal Medicine 10/07/20 [facility] [address] [place] [address] Liudmila David MD Assigned PCP 10/12/15 Deshaun, Bruna Hayward, Assigned PCP 02/03/20 03/01/20 [facility] [address], [address] [address] Liudmila David MD Assigned PCP 03/02/20 Deshaun, Bruna Hayward, Assigned PCP 04/20/20 06/11/22 [facility] [address] [address] documented as of this encounter
--- OUTSIDE RECORDS SUMMARY | 2022-08-18 09:31 | XMS_ITS | Encounter Summary ---
:1945 Author Organization [employer] Address [address] [place] [address]. [place] [address] Care Team Providers Name Role Phone Liudmila David MD Primary Care Provider Unavailable Reason for Visit Auth/Cert - Closed Specialty Diagnoses / Procedures Referred By Contact Refer red To Contact Surgery Diagnoses RIGHT COLON MASS Sh Periop Services Procedures LAPAROSCOPIC ASSISTED COLECTOMY [address] [place] [phone] Phone: Referral ID Status Reason Start Date Expiration Date Visits Requ ested Visits Authorized [id number] Closed 1 1 Encounter Details Date Type Department Care Team Description 07/31/2014 - Hospital Encounter [facility] Jerry Nieves Car cinoid tumor 08/04/2014 Jose Brito MD (Primary Dx) Intermediate Care COLON RECTAL [address] [facility] [place] [id number] [address] [facility] [phone] [place] [address] Social History Tobacco Use Types Packs/Day Years Used Date Smoking Tobacco: Former Cigarettes 0.5 Quit : 11/07/1995 Smokeless Tobacco: Never Alcohol Use Standard Drinks/Week Comments Yes 0 (1 standard drink = 0.6 oz pure alcoho l) rare - wine once in a while Sex Assigned at Date Recorded Female 10/17/2018 7:14 PM [employer] documented as of this encounter Last Filed Vital Signs Vital Sign Reading Time Taken Comments Blood Pressure 143/73 08/04/2014 7:22 AM CDT Pulse 70 08/04/2014 12:00 AM CDT Temperature 36.7 ??C (98 ??F) 08/04/2014 7:22 AM CDT Respiratory Rate 16 08/04/2014 7:22 AM CDT Oxygen Saturation 93% 08/04/2014 7:22 AM CDT Inhaled Oxygen Concentration - - Weight 90.7 kg (200 lb) 07/31/2014 10:05 AM CDT Height 167.6 cm (5' 6) 07/31/2014 10:05 AM CDT Body Mass Index 32.28 07/31/2014 10:05 AM CDT documented in this encounter Discharge Summaries Jerry Nieves MD - 08/04/2014 10:12 AM CDT [facility] Discharge Summary Shahnaz Phelps Age: [age] year old Date of : 1945 Date of Admission: 07/31/2014 Date of Discharge:: 08/04/2014 Admitting Physician: Jerry Nieves MD Discharge Physician: Jerry Nieves MD PCP: Liudmila David Disposition: Patient discharged from [facility] to home in stable condition. 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 Discharge Medications: Current Discharge Medication List START taking these medications Details oxyCODONE-acetaminophen (PERCOCET) 5-325 MG per tablet Take 1-2 tablets by mouth every 4 hours as needed for moderate to severe pain Qty: 28 tablet, Refills: 0 Associated Diagnoses: Carcinoid tumor enoxaparin (LOVENOX) 40 MG/0.4ML SOLN Inject 0.4 mLs (40 mg) Subcutaneous every 24 hours for 25 days Qty: 10 mL, Refills: 0 Associated Diagnoses: Carcinoid tumor CONTINUE these medications which have NOT CHANGED Details Multiple Vitamins-Minerals (MULTIVITAMIN OR) Take 1 tablet by mouth daily hydrochlorothiazide (HYDRODIURIL) 25 MG tablet Take 1 tablet (25 mg) by mouth daily Qty: 90 tablet, Refills: 1 Associated Diagnoses: Essential hypertension, benign amLODIPine (NORVASC) 2.5 MG tablet Take 3 tablets (7.5 mg) by mouth daily Qty: 270 tablet, Refills: 1 Associated Diagnoses: Essential hypertension, benign hydrocortisone (WESTCORT) 0.2 % cream Apply sparingly to affected area three times daily as needed. Qty: 60 g, Refills: 0 Associated Diagnoses: Dermatitis Calcium Citrate-Vitamin D (CITRACAL + D PO) Take 630 mg by mouth Vit D - 500iu Calcium 630mg Sodium 10mg takes two pills qd METRONIDAZOLE 1 % EX GEL None Entered Associated Diagnoses: Other acne Follow Up, Special Instructions: Discharge diet: Low residue diet Discharge activity: No heavy lifting or straining. Discharge follow-up: Follow up in 3 weeks in our clinic. Procedures: Procedure(s): Laparoscopic right hemicolectomy Consultations: Oncology Brief Hospital Summary: Patient is a 68 year old woman who underwent a laparoscopic right hemicolectomy on 07/31/14 for small bowel carcinoid. Please refer to operative note for details but briefly, there were no intraoperative complications. Patient's hospital course was unremarkable. She had return of bowel function by POD3 and was on a low residue diet by POD 4. Her pain was well controlled and her incisions were healing without evidence of infection. Final surgical pathology was a well-differentiated carcinoid tumor, pT3N1 with negative margins. Patient was discharged on lovenox x 30 days and plan for oncology followup as outpatient. Attestation: I have reviewed today's vital signs, notes, medications, labs and imaging. [facility] ADDENDUM: Length of stay: 5 days Indicate Y or N for the following: UTI n C diff n PNA n SSI n DVT n PE n CVA n UT n Enterocutaneous fistula n Peripheral nerve injury n Abscess (not adjacent to anastomosis) n Leak n within 30 days n Reintubation n Reoperation n Procedure n FOR CANCER CASES: T stage (1,2,3,4): 3 N stage (0,1,2): 1 Total number of nodes: 9 Total positive: 5 M stage (0,1): 0 R (0,1,2): 0 TME grade, if known (1,2,3): n/a MSI (pos, neg): n/a please remember to route your note to the office documented in this encounter Discharge Instructions Discharge InstructionsMehreen Dowell RN - 08/04/2014 10:01 AM CDT Discharge Instructions following Abdominal Surgery [facility] Bowel Function After removal of a portion of the intestines, it is normal for bowel movements to be erratic. They are often looser and more frequent. This condition generally resolves within a few weeks or it can be controlled with diet or medication. Diet In general, you may return to a well-balanced diet upon discharge. Your doctor will let you know when to add extra fiber to your diet. Be sure to drink plenty of fluids. Incision You should expect some discomfort in the area of your incision, particularly as you increase your activity. If you notice an area of increasing redness or new drainage, please call your doctor. You [place] as desired but refrain from tub baths or swimming until the incisions are fully healed. Activity Gradually increase your activity each day. There are generally no restrictions on walking, climbing stairs, or riding in a car. You can usually drive a car 7- 10 days after your leave the hospital. Do not drive while taking narcotic pain medications. Ask your doctor regarding resumption of physical sexual activity; in most cases, you can resume sex after a few weeks. Your physician will advise you about when to return to work. It is preferable to have somebody stay with you at home until you are fully healed and able to resume a normal level of activity Medications You will be discharged with a prescription pain medication and any medications you were taking priorto surgery. Do not drive while taking narcotic pain medications. If you need additional medications or a refill, you must call your doctor during normal business hours. It is the policy of [facility] to not refill pain medication after hours or on weekends because yourchart is not available. Follow-up Typically, you will be asked to schedule a follow-up office visit 1 to 4 weeks after surgery. If youhave any questions related to follow-up, medications, or your condition, please call the office. Call your surgeon if you have these signs or symptoms: ([phone]) ??? Problem with the incision, including increasing pain, swelling, redness, or drainage ??? Increasing abdominal pain ??? Uncontrolled nausea or vomiting ??? Fever or chills ??? Constipation (no bowel movement for 3 days) ??? Diarrhea (more than 3 watery stools within 24 hours) ??? Bleeding from the rectum, wound, or stoma ??? Any questions or concerns ??? documented in this encounter Medications at Time of Discharge Medication Sig Dispensed Refills Start Date End Date Multiple Vitamins-Minerals Take 1 tablet by 0 (MULTIVITAMIN OR) mouth daily enoxaparin (LOVENOX) 40 Inject 0.4 mLs (40 10 mL 0 07/0908/28/2014 MG/0.4ML SOLNIndications: mg) Subcutaneous Carcinoid tumor every 24 hours for 25 days amLODIPine (NORVASC) 2.5 Take 3 tablets (7.5 270 tablet 1 10/10/2014 MG tabletIndications: mg) by mouth daily Essential hypertension, benign Calcium Citrate-Vitamin D Take 630 mg by 0 10/06/2015 (CITRACAL + D PO) mouth Vit D - 500iu Calcium 630mg Sodium 10mg takes two pills qd hydrochlorothiazide Take 1 tablet (25 90 tablet 1 4 10/10/2014 (HYDRODIURIL) 25 MG mg) by mouth daily tabletIndications: Essential hypertension, benign hydrocortisone (WESTCORT) Apply sparingly to 60 g 0 10/10/2014 0.2 % creamIndications: affected area three Dermatitis times daily as needed. METRONIDAZOLE 1 % EX None Entered 0 GELIndications: Other acne oxyCODONE-acetaminophen Take 1-2 tablets by 28 tablet 0 10/10/2014 (PERCOCET) 5-325 MG per mouth every 4 hours tabletIndications: as needed for Carcinoid tumor moderate to severe pain documented as of this encounter Progress Notes Ca Dunlap MD - 08/04/2014 10:08 AM CDT Colorectal Surgery Progress Note POD# 4 Subjective: - doing well. Tolerating diet. Passing BM's. Pain well controlled. Received lovenox teaching. Vitals: Temp: 98 ??F (36.7 ??C) Temp src: Oral BP: 143/73 mmHg Pulse: 70 Heart Rate: 70 Resp: 16 SpO2: 93 % O2 Device: None (Room air) Tm 99.3 I/O: I/O last 3 completed shifts: In: 1020 [P.O.:1020] Out: 1350 [Urine:1350] UOP over last 24 hrs: 1350 Physical Exam: Gen: In NAD Abd: Soft, mildly distended. Incisions clean/dry w/ dermabond in place. Mild bruising at incisions. Appropriate incisional tenderness. BMP Recent Labs Lab 08/02/14 0730 08/01/14 1058 07/31/14 1650 07/31/14 1000 NA -- 143 -- -- POTASSIUM -- 3.4 -- 3.3* CHLORIDE -- 108 -- -- CO2 -- 29 -- -- BUN -- 11 -- -- CR -- 0.70 0.67 0.80 GLC 116* 134* -- -- CBC Recent Labs Lab 08/03/14 0757 08/02/14 0730 08/01/14 1058 07/31/14 1650 WBC -- 7.4 12.2* -- HGB -- 11.6* 11.8 -- HCT -- 34.6* 35.0 -- PLT 211 184 204 202 ASSESSMENT: Pt is a 68 year old female on POD 4 from laparoscopic right hemicolectomy for suspected asymptomatic carcinoid tumor. Doing well. PLAN: 1) Discharge today 2) Lovenox x 30 days Ca Dunlap MD MPH Resident Physician [facility] Pager: [phone] Meena Hector MD - 08/04/2014 7:43 AM CDT Chart check. Pt to f/u @ [facility]. Jerry Nieves MD - 08/03/2014 9:06 AM CDT Colon and Rectal Surgery Progress Note Assessment and Plan: POD #3 lap right colectomy for T3 N1 carcinoid tumor of distal small bowel. Cont LRD Ambulate Await full return of bowel function Possible d/c to home this evening vs tomorrow Will see if oncology can see her today vs as outpatient Jerry Nieves MD Colorectal Surgery [phone] (office) [phone] (pager) [email or web address] Interval History: No events overnight. No bm. Pain controlled. Passing gas. Diet gave her an upset stomach. Medications: Current Facility-Administered Medications Ordered in Epic Medication Dose Route Frequency Last Rate Last Dose ??? oxyCODONE-acetaminophen (PERCOCET) 5-325 MG per tablet 1-2 tablet 1-2 tablet Oral Q4H PRN 1 tablet at 08/02/14 2224 ??? acetaminophen (TYLENOL) tablet 325-650 mg 325-650 mg Oral Q4H PRN ??? ketorolac (TORADOL) injection 15 mg 15 mg Intravenous Q6H 15 mg at 08/03/14 0554 ??? scopolamine (TRANSDERM-SCOP) patch REMOVAL Transdermal Once ??? amLODIPine (NORVASC) tablet 7.5 mg 7.5 mg Oral Daily 7.5 mg at 08/02/14 08 ??? hydrochlorothiazide (HYDRODIURIL) tablet 25 mg 25 mg Oral Daily 25 mg at 08/02/14 0818 ??? sodium chloride (PF) 0.9% PF flush 3 mL 3 mL Intravenous Q1H PRN ??? sodium chloride (PF) 0.9% PF flush 3 mL 3 mL Intravenous Q8H 3 mL at 08/03/14 0554 ??? sodium chloride (PF) 0.9% PF flush 3 mL 3 mL Intravenous Q1H PRN 3 mL at 08/02/14 1706 ??? sodium chloride 0.9 % BOLUS 500 mL 500 mL Intravenous Q4H PRN ??? naloxone (NARCAN) injection 0.1-0.4 mg 0.1-0.4 mg Intravenous Q2 Min PRN ??? ondansetron (ZOFRAN) injection 4 mg 4 mg Intravenous Q6H PRN 4 mg at 08/01/141816 ??? prochlorperazine (COMPAZINE) injection 5 mg 5 mg Intravenous Q6H PRN ??? metoclopramide (REGLAN) injection 5 mg 5 mg Intravenous Q6H PRN ??? enoxaparin (LOVENOX) injection 40 mg 40 mg Subcutaneous Q24H 40 mg at 08/02/14 0818 ??? HYDROmorphone (PF) (DILAUDID) injection 0.3-0.5 mg 0.3-0.5 mg Intravenous Q2H PRN ??? phenol-menthol (CEPASTAT) lozenge 1-2 lozenge 1-2 lozenge Buccal Q1H PRN No current Epic-ordered outpatient prescriptions on file. Physical Exam: Vitals were reviewed Patient Vitals for the past 24 hrs: BP Temp Temp src Pulse Heart Rate Resp SpO2 08/03/14 0742 139/66 mmHg 97.9 ??F (36.6 ??C) Oral - 67 16 93 % 08/03/14 0630 - - - - - 16 92 % 08/03/14 0554 - - - - - 16 - 08/03/14 0100 115/61 mmHg 97.9 ??F (36.6 ??C) Oral 68 - 16 91 % 08/02/14 2224 - - - - - 16 - 08/02/14 2000 130/64 mmHg - - 75 - 15 95 % 08/02/14 1920 115/62 mmHg 98.2 ??F (36.8 ??C) Oral 76 - 16 94 % 08/02/14 1834 - - - - - 15 - 08/02/14 1600 113/63 mmHg 97.8 ??F (36.6 ??C) Oral - 67 16 94 % 08/02/14 1143 126/58 mmHg 98 ??F (36.7 ??C) Oral - 66 16 93 % Intake/Output Summary (Last 24 hours) at 08/03/14 0907 Last data filed at 08/03/14 0600 Gross per 24 hour Intake 2148.33 ml Output 2450 ml Net -301.67 ml Head - Nomocephalic atraumatic Sclera anicteric Extremities warm and well perfused Lungs - breathing non labored, Abdomen - soft, non distended, tender at incision Rectal exam - deferred Skin - no rash Psych - affect appropriate Neuro - no focal deficits Data: All laboratory and imaging data in the past 24 hours reviewed CBC Lab Results Component Value Date WBC 7.4 08/02/2014 WBC 12.2* 08/01/2014 WBC 7.2 07/25/2014 HGB 11.6* 08/02/2014 HGB 11.8 08/01/2014 HGB 13.8 07/25/2014 HCT 34.6* 08/02/2014 HCT 35.0 08/01/2014 HCT 43.1 07/25/2014 PLT 211 08/03/2014 PLT 184 08/02/2014 PLT 204 08/01/2014 BMP Recent Labs Lab Test 08/02/14 0730 08/01/14 1058 07/31/14 1650 07/31/14 1000 03/18/14 1138 NA -- 143 -- -- -- 141 POTASSIUM -- 3.4 -- 3.3* < > 3.4* CHLORIDE -- 108 -- -- -- 101 CO2 -- 29 -- -- -- 26 ANIONGAP -- 6 -- -- -- -- GLC 116* 134* -- -- -- 114* BUN -- 11 -- -- -- 19 NOT APPLICABLE CR -- 0.70 0.67 0.80 -- 0.76 CORNELIUS -- 8.6 -- -- -- 10.2 < > = values in this interval not displayed. Liver Function Studies - Recent Labs Lab Test 03/18/14 1138 PROTTOTAL 7.1 ALBUMIN 4.9 BILITOTAL 0.8 ALKPHOS 88 AST 27 ALT 29 Jerry Nieves MD - 08/02/2014 11:19 AM CDT Colorectal Surgery Progress Note POD# 2 Subjective: - Pain well controlled. Passed flatus this AM. Had first full liquid diet meal this AM w/o any nausea. - Voiding after Douglas removal this AM Vitals: Temp: 98.1 ??F (36.7 ??C) Temp src: Oral BP: 126/66 mmHg Pulse: 64 Heart Rate: 67 Resp: 16 SpO2: 95 % O2 Device: Nasal cannula Oxygen Delivery: 2 LPM Tm 99.3 I/O: I/O last 3 completed shifts: In: 2927 [P.O.:480; I.V.:2447] Out: 3975 [Urine:3975] UOP over last 24 hrs: 3100 Physical Exam: Gen: In NAD Pulm: Clear to auscultation bilaterally, no rales/wheezing/rhonchi. Abd: Soft, mildly distended. Incisions clean/dry w/ dermabond in place. Mild bruising at incisions. Appropriate incisional tenderness. BMP Recent Labs Lab 08/02/14 0730 08/01/14 1058 07/31/14 1650 07/31/14 1000 NA -- 143 -- -- POTASSIUM -- 3.4 -- 3.3* CHLORIDE -- 108 -- -- CO2 -- 29 -- -- BUN -- 11 -- -- CR -- 0.70 0.67 0.80 GLC 116* 134* -- -- CBC Recent Labs Lab 08/02/14 0730 08/01/14 1058 07/31/14 1650 WBC 7.4 12.2* -- HGB 11.6* 11.8 -- HCT 34.6* 35.0 -- PLT 184 204 202 ASSESSMENT: Pt is a 68 year old female on POD 2 from laparoscopic right hemicolectomy for suspected asymptomatic carcinoid tumor. Doing well. PLAN: 1) Pain control: transition to PO pain meds 2) Encourage IS, ambulation 3) FEN/GI: advance diet as tolerated 4) Proph: Lovenox Ca Dunlap MD MPH Resident Physician [facility] Pager: [phone] CRS Staff Seen and examined. Agree with above. I reviewed the path with her. Will have oncology see her. Advance diet as tolerated. Likely d/c this weekend. Will need 30 days lovenox for prophylaxis. Jerry Nieves MD Colorectal Surgery [phone] (office) [phone] (pager) [email or web address] Jerry Nieves MD - 08/01/2014 7:47 AM CDT Colorectal Surgery Progress Note POD# 1 Subjective: - Pain well controlled. No acute postop events Vitals: Temp: 98.1 ??F (36.7 ??C) Temp src: Oral BP: 124/57 mmHg Pulse: 68 Heart Rate: 93 Resp: 16 SpO2: 95 % O2 Device: None (Room air) Oxygen Delivery: 1.5 LPM Tm 98.8 I/O: I/O last 3 completed shifts: In: 4011 [P.O.:170; I.V.:3841] Out: 2170 [Urine:2150; Blood:20] UOP over last 24 hrs: 1999 OR: 150 UOP, EBL 20 Physical Exam: Gen: In NAD Pulm: Clear to auscultation bilaterally, no rales/wheezing/rhonchi. IS 1000 Abd: Soft, mildly distended. Incisions clean/dry w/ dermabond in place. Mild bruising at incisions. Appropriate incisional tenderness. Ext: Warm, no edema. BMP Recent Labs Lab 07/31/14 1650 07/31/14 1000 07/25/14 1423 POTASSIUM -- 3.3* 3.7 CR 0.67 0.80 -- CBC Recent Labs Lab 07/31/14 1650 07/25/14 1157 WBC -- 7.2 HGB -- 13.8 HCT -- 43.1 PLT 202 227 ASSESSMENT: Pt is a 68 year old female on POD 1 from laparoscopic right hemicolectomy for suspected asymptomatic carcinoid tumor. Doing well. PLAN: 1) Pain control: LOCUM TENENS 2) Encourage IS, ambulation 3) FEN/GI: clears as tolerated. Maint IVF 4) : Douglas to monitor urine output, noted to have cloudy urine on admission, UA showed trace leukocyte esterase but neg for nitrates. Will monitor for now. 5) Proph: Akosua Dunlap MD MPH Resident Physician [facility] Pager: [phone] CRS Seen and examined yesterday. Will add toradol for pain. Douglas out in the AM. Jerry Nieves MD Colorectal Surgery [phone] (office) [phone] (pager) [email or web address] Carley Mtz RN - 08/01/2014 7:23 AM CDT Focus: Post-op osotmy management S: Pt referred for post-op ostomy management. No ostomy procedure performed on review of OP Note. Will sign off. Please reconsult if further assistance required Chart review only documented in this encounter H&P Notes Nina Chavez - 07/29/2014 9:50 AM CDT This note is for the purpose of making the H & P performed in clinic within the last 30 days available in the hospital surgical encounter. Source Note - Liudmila David MD - 07/25/2014 11:48 AM CDT [facility] [address] [place] [address]. [address] [place] [address] PRE-OP EVALUATION: Today's date: 07/25/2014 Shahnaz Phelps (: 1945) presents for pre-operative evaluation assessment as requestedby Dr. Nieves. She requires evaluation and anesthesia risk assessment prior to undergoing surgery/procedure for treatment of Right colon mass . Proposed procedure: Lap assisted Right Colectomy Date of Surgery/ Procedure: 07/31/2014 Time of Surgery/ Procedure: 2:00PM Hospital/Surgical Facility: [facility] Primary Physician: Dr David Type of Anesthesia Anticipated: General History of anesthesia complications: YES: Personal HX Nausea, vomiting History of abnormal bleeding: NONE History of blood transfusions: NO Patient has a Health Care Directive or Living Will: NO PREOP QUESTIONNAIRE 1- NO - Do you ever have any pain or discomfort in your chest? 2- NO - Have you ever had a severe pain across the front of your chest lasting for half an hour or more? 3- NO - Do you have swelling in your feet or ankles at times? 4- NO - Are you troubled by shortness of breath when: walking on the level/ up a slight hill/ at night? 5- NO - Does your chest ever sound wheezy or whistling? 6- NO - Do you currently have a cold, bronchitis or other respiratory infection? 7- NO - Have you had a cold, bronchitis or other respiratory infection within the last 2 weeks? 8- NO - Do you usually have a cough? 9- NO - Do you sometimes get pains in the calves of your legs when you walk? 10-NO - Do you or anyone in your family have previous history of blood clots? 11-NO - Do you or does anyone in your family have serious bleeding problem such as prolonged bleeding following surgeries or cuts? 12-NO - Have you ever had problems with anemia or been told to take iron pills? 13-NO - Have you had any abnormal blood loss such as black, tarry or bloody stools, or abnormal vaginal bleeding? 14-NO - Have you or any of your relatives ever had problems with anesthesia? (nausea and vomiting for 12 hours after vein procedure) 15-NO - Do you snore or stop breathing at night? 16-NO - Do you have any prosthetic heart valves or joints? 17-NO - Is there any chance that you may be ? HPI: Patient Active Problem List Diagnosis Date Noted ??? Urge incontinence 03/28/2012 Priority: Medium ??? [facility] Priority: Low State Tier Level: Tier 2 Status: n/a Development Planner: See Letters for [facility] Care Plan ??? Living will, counseling/discussion 02/26/2012 Priority: Low Advance Care Planning: ACP Review and Resources Provided: Reviewed chart for advance care plan. Shahnaz Phelps has noplan or code status on file. Discussed available resources and provided with information. Confirmed code status reflects current choices pending further ACP discussions. Confirmed/documented designateddecision maker(s). See permanent comments section of demographics in clinical tab. Added by July Keenan on 03/18/2014 ??? Calculus of kidney 03/28/2012 ??? Essential Hypertension, Benign 02/25/2009 ??? OBESITY NOS 12/11/2007 ??? Other and unspecified malignant neoplasm of skin of other and unspecified parts of face 03/08/2005 IMO update changed this record. Please review for accuracy ??? OSTEOARTHROS NOS-UNSPEC 07/14/2004 ??? DIVERTICULOSIS OF COLON W/O BLEED ??? ACNE NEC ??? PERS HX COLONIC POLYPS Past Medical History Diagnosis Date ??? Other acne ??? Need for prophylactic hormone replacement therapy (postmenopausal) ??? Allergic rhinitis due to pollen ??? PONV (postoperative nausea and vomiting) ??? Hypertension ??? 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 Hc colonoscopy thru stoma w biopsy/cautery tumor/polyp/lesion Dr Wells ??? Hc colonoscopy thru stoma w biopsy/cautery tumor/polyp/lesion ??? Hc colonoscopy thru stoma w biopsy/cautery tumor/polyp/lesion 2000 ??? Hc colonoscopy thru stoma w biopsy/cautery tumor/polyp/lesion 2002 Dr Mesa ??? Hc remv cataract extracap,insert lens 03/10/04 right ??? Hc remv cataract extracap,insert lens 04/[address] Keith ??? 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 Hc knee scope,med/lat menisectomy 04/2005 Dr Arevalo ??? Breast biopsy, rt/lt 04/2005 left breast ? ? C ligatn/strip long & short saphen 03/2006 right leg ??? Exc skin malig 0.5cm or less,facial 12/2004 MOHS on right cheek/ basal cell ? ? Hc hysteroscopy w endometrial bx/polypectomy w/wo d&c 2006 benign uterine polyp ??? Colonoscopy 06/2012 scheduled ??? Extracorporeal shock wave lithotripsy, cystoscopy, insert stent ureter(s), combined 06/08/2012 Procedure: COMBINED EXTRACORPOREAL SHOCK WAVE LITHOTRIPSY, CYSTOSCOPY, INSERT STENT URETER(S); RIGHT COMBINED EXTRACORPOREAL SHOCK WAVE LITHOTRIPSY, CYSTOSCOPY, RIGHT STENT, LEFT RETROGRADE.; Surgeon:Jared Jackson MD; Location: OR ??? Hrw vein stripper 2012 lower leg sclerosis/ laser therapy Current Outpatient Prescriptions Medication Sig Dispense Refill ??? hydrochlorothiazide (HYDRODIURIL) 25 MG tablet Take 1 tablet (25 mg) by mouth daily 90 tablet 1 ??? amLODIPine (NORVASC) 2.5 MG tablet Take 3 tablets (7.5 mg) by mouth daily 270 tablet 1 ??? hydrocortisone (WESTCORT) 0.2 % cream Apply sparingly to affected area three times daily as needed. 60 g 0 ??? Calcium Citrate-Vitamin D (CITRACAL + D PO) Take by mouth. Vit D - 500iu Calcium 630mg Sodium 10mg takes two pills qd ??? ONE-A-DAY WOMENS 50 PLUS PO TABS 1 TABLET DAILY ??? METRONIDAZOLE 1 % EX GEL None Entered OTC products: no recent use of OTC ASA, NSAIDS or Steroids Allergies Allergen Reactions ??? Imidazole Antifungals hives ??? Penicillins hives Latex Allergy: NO History Substance Use Topics ??? Smoking status: Former Smoker Quit date: 11/07/1995 ??? Smokeless tobacco: Never Used ??? Alcohol Use: 0.0 oz/week 0 drink(s) per week Comment: rare History Drug Use No REVIEW OF SYSTEMS: C: NEGATIVE for fever, chills, change in weight E/M: NEGATIVE for ear, mouth and throat problems R: NEGATIVE for significant cough or SOB CV: NEGATIVE for chest pain, palpitations or peripheral edema EXAM: BP 150/82 Pulse 78 Temp(Src) 98.2 ??F (36.8 ??C) (Oral) Ht 1.689 m (5' 6.5) Wt 93.169 kg (205 lb 6.4 oz) BMI 32.66 kg/m2 GENERAL APPEARANCE: healthy, alert and no [...] normal, mentation intact and speech normal DIAGNOSTICS: Preop Testing EKG: Normal Sinus Rhythm/ poor R wave progression Hemoglobin Date Value Range Status 07/25/2014 13.8 11.7 - 15.7 g/dL Final ] Potassium Date Value Range Status 07/25/2014 3.7 3.5 - 5.3 mmol/L Final ] IMPRESSION: Reason for surgery/procedure: Carcinoid tumor Hypertension, controlled The proposed surgical procedure is considered INTERMEDIATE risk. For above listed surgery and anesthesia: Patient is at LOW risk for surgery/procedure and perioperative/procedure complications. RECOMMENDATIONS: --Approval given to proceed with proposed procedure, without further diagnostic evaluation. Signed Electronically by: Liudmila David MD, MD Copy of this evaluation report is provided to requesting physician. Preop Guidelines documented in this encounter Consult Notes Meena Hector MD - 08/03/2014 11:12 AM CDTAssociated Order(s): ONCOLOGY IP CONSULT [facility] Shahnaz Phelps Date of : 1945 Age: [age] year old Date of Admission: 07/31/2014 Requesting physician: Ca Dunlap MD Reason for consult: Carcinoid tumor of the small bowel. Assessment and Plan: 68 year-old female status post right hemicolectomy and found to have carcinoid tumor of the small bowel. 1. 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 This was a well- differentiated tumor, grade 1. Her prior scans did not show any signs of distant metastases but she will need surveillance for disease recurrence. I have recommended outpatient oncology follow-up with multiphasic CT or abdomen/pelvis MRI, chromogranin A,and 24-hour urine 5-HIAA for follow-up in the next 3 months. [place] of [place] and wishes to follow-up in our [place] clinic. Therefore I will arrange for f/u with one of our oncologiststhere after discharge. 2. Strong family history of colon cancer - She will need ongoing colonoscopy surveillance in view of this. A genetics consult for her affected family members would be useful and could be discussed at her outpatient follow-up. Thank you very much for the consult request. Please call if questions. Meena Hector Chief Complaint: No chief complaint on file. Right colon mass. History of Present Illness: This patient is a 68 year old female with hypertension and kidney stones hospitalized for right colon mass, now s/p laparoscopic right hemicolectomy and found to have a T3-N1 grade 1 well-differentiated carcinoid tumor of the distal small bowel. Five of 9 lymph nodes were positive for involvement. Shehad an octreoscan on 7/16/14 that identified abnormal radiotracer activity in the right lower quadrant suspicious for a neuroendocrine tumor. She also had a PET/CT that reportedly showed no distant metastatic disease. She denies any flushing, diarrhea, hematochezia, or melena prior to her surgery. Currently, she denies pain or nausea. She does have a strong family history of colon cancer affecting her brother, mother, and father. There is no family history of carcinoid. Physical Exam: Vitals were reviewed Blood pressure 139/66, pulse 68, temperature 97.9 ??F (36.6 ??C), temperature source Oral, resp. rate 16, height 1.676 m (5' 6), weight 90.719 kg (200 lb), SpO2 93 %. Temperatures: Current - Temp: 97.9 ??F (36.6 ??C); Max - Temp Av ??F (36.7 ??C) Min: 97.8 ??F (36.6 ??C) Max: 98.2 ??F (36.8 ??C) Respiration range: Resp Av.8 Min: 15 Max: 16 Pulse range: Pulse Av Min: 68 Max: 76 Blood pressure range: Systolic (24hrs), Av mmHg, Min:113 mmHg, Max:139 mmHg ; Diastolic (24hrs), Av mmHg, Min:58 mmHg, Max:66 mmHg Pulse oximetry range: SpO2 Av.1 % Min: 91 % Max: 95 % Intake/Output Summary (Last 24 hours) at 08/03/14 1112 Last data filed at 08/03/14 0600 Gross per 24 hour Intake 2148.33 ml Output 2050 ml Net 98.33 ml GENERAL: No acute distress. SKIN: No rashes or jaundice. Postop incision is clean, dry and intact. HEENT: Normocephalic, atraumatic. Eyes anicteric. Oropharynx is clear. LYMPH: No palpable lymphadenopathy in the cervical, supraclavicular, axillary, or inguinal regions. HEART: Regular rate and rhythm with no murmurs. LUNGS: Clear bilaterally. ABDOMEN: Soft, nontender, nondistended with no palpable hepatosplenomegaly. EXTREMITIES: No clubbing, cyanosis, or edema. MENTAL: Alert and oriented to person, place, and time. NEURO: Cranial nerves II through XII grossly intact with no focal motor or sensory deficits. Past Medical History: I have reviewed this patient's past medical history Past Medical History Diagnosis Date ??? Other acne ??? Need for prophylactic hormone replacement therapy (postmenopausal) ??? Allergic rhinitis due to pollen ??? Hypertension ??? 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 PONV (postoperative nausea and vomiting) vomitted for 12 hours after surgery Past Surgical History: I have reviewed this patient's past surgical history Past Surgical History Procedure Laterality Date ??? [...] 07/31/2014 Procedure: LAPAROSCOPIC ASSISTED COLECTOMY; Surgeon: Jerry Nieves MD; Location: OR Social History: I have reviewed this patient's social history History Substance Use Topics ??? Smoking status: Former Smoker -- 0.50 packs/day Quit date: 11/07/1995 ??? Smokeless tobacco: Never Used ??? Alcohol Use: 0.0 oz/week 0 drink(s) per week Comment: rare - wine once in a while Family History: I have reviewed this patient's family history Family History Problem Relation Age of Onset ??? Cancer Brother colon ??? Colon CA Mother ??? Colon CA Father ??? Cancer Mother 91 endometrial Allergies: Allergies Allergen Reactions ??? Imidazole Antifungals hives ??? Penicillins hives Medications: I have reviewed this patient's current medications Prescriptions prior to admission Medication Sig Dispense Refill ??? Multiple Vitamins-Minerals (MULTIVITAMIN OR) Take 1 tablet by mouth daily ??? hydrochlorothiazide (HYDRODIURIL) 25 MG tablet Take 1 tablet (25 mg) by mouth daily 90 tablet 1 ??? amLODIPine (NORVASC) 2.5 MG tablet Take 3 tablets (7.5 mg) by mouth daily 270 tablet 1 ??? hydrocortisone (WESTCORT) 0.2 % cream Apply sparingly to affected area three times daily as needed. 60 g 0 ??? Calcium Citrate-Vitamin D (CITRACAL + D PO) Take 630 mg by mouth Vit D - 500iu Calcium 630mg Sodium 10mg takes two pills qd ??? METRONIDAZOLE 1 % EX GEL None Entered Current Facility-Administered Medications Ordered in [facility] Medication Dose Route Frequency Last Rate Last Dose ??? oxyCODONE-acetaminophen (PERCOCET) 5-325 MG per tablet 1-2 tablet 1-2 tablet Oral Q4H PRN 1 tablet at 08/02/144 ??? acetaminophen (TYLENOL) tablet 325-650 mg 325-650 mg Oral Q4H PRN ??? ketorolac (TORADOL) injection 15 mg 15 mg Intravenous Q6H 15 mg at 08/03/14 0554 ??? scopolamine (TRANSDERM-SCOP) patch REMOVAL Transdermal Once ??? amLODIPine (NORVASC) tablet 7.5 mg 7.5 mg Oral Daily 7.5 mg at 08/03/14 0924 ??? hydrochlorothiazide (HYDRODIURIL) tablet 25 mg 25 mg Oral Daily 25 mg at 08/03/14 0924 ??? sodium chloride (PF) 0.9% PF flush 3 mL 3 mL Intravenous Q1H PRN ??? sodium chloride (PF) 0.9% PF flush 3 mL 3 mL Intravenous Q8H 3 mL at 08/03/14 0554 ??? sodium chloride (PF) 0.9% PF flush 3 mL 3 mL Intravenous Q1H PRN 3 mL at 08/02/14 1706 ??? sodium chloride 0.9 % BOLUS 500 mL 500 mL Intravenous Q4H PRN ??? naloxone (NARCAN) injection 0.1-0.4 mg 0.1-0.4 mg Intravenous Q2 Min PRN ??? ondansetron (ZOFRAN) injection 4 mg 4 mg Intravenous Q6H PRN 4 mg at 08/01/14 1817 ??? prochlorperazine (COMPAZINE) injection 5 mg 5 mg Intravenous Q6H PRN ??? metoclopramide (REGLAN) injection 5 mg 5 mg Intravenous Q6H PRN ??? enoxaparin (LOVENOX) injection 40 mg 40 mg Subcutaneous Q24H 40 mg at 08/03/14 0926 ??? HYDROmorphone (PF) (DILAUDID) injection 0.3-0.5 mg 0.3-0.5 mg Intravenous Q2H PRN ??? phenol-menthol (CEPASTAT) lozenge 1-2 lozenge 1-2 lozenge Buccal Q1H PRN Current Outpatient Prescriptions Ordered in [facility] Medication ??? oxyCODONE-acetaminophen (PERCOCET) 5-325 MG per tablet ??? enoxaparin (LOVENOX) 40 MG/0.4ML SOLN Review of Systems: The 10 point Review of Systems is negative other than noted in the HPI. Data: All laboratory data reviewed Results for orders placed during the hospital encounter of 07/31/14 (from the past 24 hour(s)) GLUCOSE BY METER Result Value Range Glucose 90 60 - 99 mg/dL PLATELET COUNT Result Value Range Platelet Count 211 150 - 450 10e9/L documented in this encounter Nursing Notes Celi Graf RN - 07/31/2014 10:[address] Nieves notified of penicillin allergy. to change antibiotic order. Celi Graf RN - 07/31/2014 10:[address] Stahl at bedside. Time out performed at 1026. Arterial line placed to right lower arm. 1mg versedgiven prior. Pt tolerated without difficulty. VSS. documented in this encounter Miscellaneous Notes Plan of Care - Mehreen Dowell RN - 08/04/2014 11:55 AM CDT Problem: IP GENERAL POC-ADULT,OB,BEHAVIORAL FVCPM Goal: Individualization/Patient-Specific Goal (Adult,OB,Behavioral 07-31-14 Procedure(s) Performed: Procedure(s) with comments: LAPAROSCOPIC ASSISTED COLECTOMY - LAPAROSCOPIC-ASSISTED RIGHT COLECTOMY Outcome: Completed Date Met: 08/04/14 VSS. Afeb. Pt had small BM. Tolerating low residue diet. Pt self-administered lovenox. RN reviewed discharge instructions/medications with pt and her spouse, all questions posed were answered adequately. Plan of Care - Domonique Nielsen RN - 08/04/2014 5:24 AM CDT Problem: IP GENERAL POC-ADULT,OB,BEHAVIORAL FVCPM Goal: Individualization/Patient-Specific Goal (Adult,OB,Behavioral 07-31-14 Procedure(s) Performed: Procedure(s) with comments: LAPAROSCOPIC ASSISTED COLECTOMY - LAPAROSCOPIC-ASSISTED RIGHT COLECTOMY Outcome: No Change VSS, up independently, ambulated halls. Toradol for pain. BS active, passing flatus, tolerated dinner. Slept well overnight, able to make needs known. Plan of Care - Mehreen Dowell RN - 08/03/2014 3:08 PM CDT Problem: IP GENERAL POC-ADULT,OB,BEHAVIORAL FVCPM Goal: Individualization/Patient-Specific Goal (Adult,OB,Behavioral 07-31-14 Procedure(s) Performed: Procedure(s) with comments: LAPAROSCOPIC ASSISTED COLECTOMY - LAPAROSCOPIC-ASSISTED RIGHT COLECTOMY Outcome: No Change VSS. Afeb. Pt up independently. Voiding. Tolerating Low residue diet. Passing flatus. Plan of Care - Wolf Hernández RN - 08/03/2014 7:30 AM CDT Problem: IP GENERAL POC-ADULT,OB,BEHAVIORAL FVCPM Goal: Individualization/Patient-Specific Goal (Adult,OB,Behavioral 07-31-14 Procedure(s) Performed: Procedure(s) with comments: LAPAROSCOPIC ASSISTED COLECTOMY - LAPAROSCOPIC-ASSISTED RIGHT COLECTOMY Outcome: No Change Abdomen incision CDI, pain controlled with scheduled toradol. Up to bathroom per self.+flatus, denies N/V. Plan of Care - America Ibanez - 08/02/2014 10:03 PM CDT Problem: IP GENERAL POC-ADULT,OB,BEHAVIORAL FVCPM Goal: Individualization/Patient-Specific Goal (Adult,OB,Behavioral 07-31-14 Procedure(s) Performed: Procedure(s) with comments: LAPAROSCOPIC ASSISTED COLECTOMY - LAPAROSCOPIC-ASSISTED RIGHT COLECTOMY Outcome: No Change Goal: Plan of Care Review (Adult,OB,Behavioral) The patient and/or their guest service representative will communicate an understanding of their plan of care. Outcome: No Change Pain controlled with 1 percocet and scheduled toradol. IV infiltrated and restarted. Up independently. Voiding well. Tolerating low residue diet. Pathology back today, MD discussed with patient and family. Plan to have oncologist see patient tomorrow, consult in computer. Patient's would like to be here when oncologist is here, so he would like us to call in the morning to see when they plan on rounding. He is in [place], so is about 45 minutes away. Problem: Perioperative Period (Adult, Obstetrics) Goal: Prevent/Manage Potential Problems Outcome: No Change Plan of Care - Mehreen Dowell RN - 08/02/2014 3:29 PM CDT Problem: IP GENERAL POC-ADULT,OB,BEHAVIORAL FVCPM Goal: Individualization/Patient-Specific Goal (Adult,OB,Behavioral 07-31-14 Procedure(s) Performed: Procedure(s) with comments: LAPAROSCOPIC ASSISTED COLECTOMY - LAPAROSCOPIC-ASSISTED RIGHT COLECTOMY Outcome: Improving VSS. Afeb. Pt tolerating full liquids. Passing flatus. Incisions intact with glue. Douglas out, pt voiding. Pain managed with PRN medications and toradol. Plan of Care - Renetta Thompson RN - 08/02/2014 3:24 AM CDT Problem: IP GENERAL POC-ADULT,OB,BEHAVIORAL FVCPM Goal: Individualization/Patient-Specific Goal (Adult,OB,Behavioral 07-31-14 Procedure(s) Performed: Procedure(s) with comments: LAPAROSCOPIC ASSISTED COLECTOMY - LAPAROSCOPIC-ASSISTED RIGHT COLECTOMY Pt is AO X 4. VSS ex on 2L O2 overnight to maintain sats. Lap sites CDI. Tolerating clear diet. Up SBA. Pain is controlled with LOCUM TENENS. BS are active- denies flatus. Adequate urine output via douglas. No nausea overnight. Slept between cares. Continue to monitor. Plan of Care - Isabelle Shaikh RN - 08/01/2014 3:03 PM CDT Problem: IP GENERAL POC-ADULT,OB,BEHAVIORAL FVCPM Goal: Individualization/Patient-Specific Goal (Adult,OB,Behavioral 07-31-14 Procedure(s) Performed: Procedure(s) with comments: LAPAROSCOPIC ASSISTED COLECTOMY - LAPAROSCOPIC-ASSISTED RIGHT COLECTOMY Outcome: Improving Tolerating some clear liquids without nausea. LOCUM TENENS dilaudid controlling pain. Ambulated in corado X 2 with SBA. Plan of Care - Renetta Thompson RN - 08/01/2014 2:58 AM CDT Problem: IP GENERAL POC-ADULT,OB,BEHAVIORAL FVCPM Goal: Individualization/Patient-Specific Goal (Adult,OB,Behavioral 07-31-14 Procedure(s) Performed: Procedure(s) with comments: LAPAROSCOPIC ASSISTED COLECTOMY - LAPAROSCOPIC-ASSISTED RIGHT COLECTOMY Pt is AO X 4. VSS- on 1.5 L O2. Lap sites CDI. Tolerating ice chips. Up 1 assist. Pain is controlledwith LOCUM TENENS. BS are active. Adequate urine output via douglas. Slept between cares. Continue to monitor. Plan of Care - Hellen Calderon RN - 07/31/2014 10:00 PM CDT Problem: IP GENERAL POC-ADULT,OB,BEHAVIORAL FVCPM Goal: Individualization/Patient-Specific Goal (Adult,OB,Behavioral 07-31-14 Procedure(s) Performed: Procedure(s) with comments: LAPAROSCOPIC ASSISTED COLECTOMY - LAPAROSCOPIC-ASSISTED RIGHT COLECTOMY Outcome: No Change Up to the floor at beginning of shift. VSS. Unable to tolerate RA when asleep. Tolerating 2L of O2. Minimal complaints of pain. LOCUM TENENS for pain. Incisions CDI. Faint BS. Not yet passing flatus. Douglas in place. Dangled and stood at the bedside this shift. Up with one. Op Note - Jerry Nieves MD - 07/31/2014 4:24 PM CDT PREOPERATIVE DIAGNOSIS: Right colon mass. POSTOPERATIVE DIAGNOSIS: Terminal ileal carcinoid tumor. PROCEDURE PERFORMED: Laparoscopic right colectomy. SURGEON: Jerry Nieves MD SOUND TESTER: CA DUNLAP MD [facility] Colorectal Surgery Fellow ESTIMATED BLOOD LOSS: 20 mL. SPECIMENS: Right colon. COMPLICATIONS: None. FINDINGS: The specimen was opened by the Pathology Department and sectioned there. Specimen was returned for inspection and I identified a mass in the submucosa of the terminal ileum just proximal to the ileocecal valve. Gross findings were discussed with the pathologist also reviewed the specimen andwas highly suspicious for carcinoid tumor. INDICATIONS: Ms. Phelps is a 60-year-old female who has a history of stones. A mass of some clustering of possible lymph nodes in the right colonic mesentery along the ileocolic vessel near the cecum was identified on a CT scan done to evaluate her lymph nodes. This was eventually worked up. The lesion was seen on PET CT. I advised the patient to undergo a resection of this for definitive diagnosis and treatment. The risks, benefits and alternatives of laparoscopic right colectomy were discussed with the patient. Specifically, we discussed the risks of bleeding, infection, anastomotic leak and need for further surgery, need for stoma, development of a hernia, DVT, urinary tract infection, stroke, heart attack, complications of general anesthesia, multisystem organ failure and possibly even . She elected to proceed. DESCRIPTION OF PROCEDURE: After obtaining informed consent, the patient was brought to the operatingroom, general anesthesia was induced, the patient was intubated by the anesthesia service without difficulty. Douglas catheter was placed and orogastric tube was placed. The right arm was out on an arm board and the left arm was tucked at her side. She was secured to the table with tape across her chest. All pressure points were inspected and padded appropriately to prevent peripheral neuropathy. The abdomen was prepped and draped in the usual sterile fashion. A timeout was undertaken, which identified the patient and correct procedure. A small supraumbilical incision was made. Dissection was taken down with electrocautery. The fascia was incised in the midline. We were able to easily again gain entrance to the abdomen. Stay sutures of 0 Vicryl were placed on each side of the fascia and Kim trocar was placed. Pneumoperitoneum was e stablished. The abdomen was surveyed with a 10 mm 30-degree scope. A lesion near the cecum could be easily seen and there was no evidence of metastatic disease. Two left-sided 5 mm ports as well as a single suprapubic port were placed under direct vision after anesthetizing the peritoneum was 0.25% Marcaine with dilute epinephrine. The patient was then placed with her right side up. The mass was seennear the cecum, possibly involving the small bowel. The patient was placed in steep Trendelenburg position. The small bowel was swept away to expose the ileocolic vessel. The vessel was placed on stretch by grasping the epiploica of the cecum. The overlying peritoneum along the ileocolic vessel just distal to the duodenum was incised. The vessel was then isolated easily with the LigaSure device. The ileocolic vessel was then ligated with the LigaSure device and easily transected. Hemostasis was excellent. We then continued our medial to lateral dissection using a combination of blunt and sharp dissection with the LigaSure device. The dissection was taken out laterally to the abdominal sidewall superiorly to up over the second portion of the duodenum and inferiorly to mobilize the cecum. We then turned our attention to the small bowel. The small bowel mesentery was elevated off of the retroperitoneum by incising the inferior attachments. We then incised the lateral attachments of the colon and connected our lateral mobilization to our medial mobilization. This was continued to incise the lateral attachments of the hepatic flexure. Once we had progressed as far as we could from an inferior to superior mobilization, we then placed the patient in steep reverse Trendelenburg. The omentum was swept cephalad and the hook electrocautery was used to mobilize the omentum off of the transverse colon. The remaining hepatic flexure attachments were taken with the LigaSure device. Great care was taken to avoid any injury to the gallbladder and liver. With these attachments were taken, the colon was freely mobile and the duodenum was nicely exposed which was kept free of injury during the entire procedure. Satisfied with our mobilization, we then placed the patient in a neutral position. Our ports were removed. The supraumbilical incision was extended to just below the umbilicus for a total of approximately 5 cm. Dissection was taken down with electrocautery and the fascia was incised. A 5 x 9 Jose wound retractor was used for exposure. The cecum was grasped and brought through the midline wound. It was quite easy to extracorporealize the right colon. Points for proximal and distal transection were chosen. We based our proximal transection on a distance of approximately 10 cm from the tumor. The small bowel was isolated here and the intervening mesentery was taken with the LigaSure device. Similarly, we based our anastomosis on the middle branch of the middle colic vessel. The right branch of themiddle colic was isolated and taken with the LigaSure device and the intervening mesentery was takenwith the LigaSure device up to the level of the bowel wall. Thus with our bowel isolated proximally and distally, we then performed a hayi-yi-cjog functional end-to-end anastomosis with the bowel in continuity. This was done by placing antimesenteric Allis clamps and creating antimesenteric enterotomies at our points of planned transection. A blue load ZACHERY 80 mm stapler was then fashioned within the bowel. The stapler was closed and fired after the bowel was lined up in an mxcgrsrzyvunzi-di-pzgduklrezkxiz fashion. This created our pqwd-bj-bytm anastomosis. The common enterotomy was closed with a TA90 stapler and the specimen was transected and sent off to pathology for open and return. Our stapleline was inspected prior to closure and found to be hemostatic. The toe of the anastomosis as well as the corners of the TA staple line were reinforced with the interrupted sutures of 3-0 Vicryl. The anastomosis was then returned to the abdomen. The abdomen was irrigated and the irrigant was clear. Pathology and sent the specimen back and I inspected the specimen. I identified the submucosal mass in the terminal ileum as described by Dr. Hooper from pathology. We then injected Marcaine into the midline wound. The midline wound was closed with two running sutures of single stranded 0 PDS. Skin and subcutaneous fat was irrigated and the skin was closed with 4-0 Monocryl in a running subcuticular fashion. Similarly, the port sites were closed with 4-0 Monocrylin subcuticular fashion. Dermabond was used as a dressing. The Douglas was left in place. Orogastric tube was removed. The patient was awakened from anesthesia, extubated and transferred to the PACU in stable condition. Lap, sponge and needle counts were correct at the end of the case x2. JERRY NIEVES MD MT: [id number] Name: SHAHNAZ PHELPS MRN: [id number] Account: [id number] : 1945 Procedure Date: 07/31/2014 Document: [id number] cc: Liudmila Nieves MD Brief Op Note - Jerry Nieves MD - 07/31/2014 1:48 PM CDT [facility] Brief Operative Note Pre-operative diagnosis: RIGHT COLON MASS Post-operative diagnosis Small bowel carcinoid Procedure: Procedure(s) with comments: LAPAROSCOPIC ASSISTED COLECTOMY - LAPAROSCOPIC-ASSISTED RIGHT COLECTOMY Surgeon(s): Surgeon(s) and Role: * Jerry Nieves MD - Primary Estimated blood loss: 20 mL Specimens: ID Type Source Tests Collected by Time Destination A : Right colon Tissue Colon SURGICAL PATHOLOGY EXAM Jerry Nieves MD 07/31/2014 1:21 PM Pathology A/B : Right colon Tissue Colon SURGICAL PATHOLOGY EXAM Jerry Nieves MD 07/31/2014 1:42 PM Pathology Findings: Submucosal mass just proximal IC valve IVF: 2200 UOP: 150 Condition on discharge from OR: Satisfactory Jerry Nieves MD [facility] [phone]. ADDENDUM: PATIENT DATA Indicate Y or N: Home O2 n Hemodialysis n Transplant patient n Cirrhosis n Steroids in last 30 days n Immunomodulators in last 30 days n Anticoagulation at time of surgery n List medication n Prior abdominal surgery n Pelvic irradiation n Albumin within 30 days if known unknown Hgb within 30 days if known 13.8 Hemoglobin Date Value Range Status 07/25/2014 13.8 11.7 - 15.7 g/dL Final ] Cr within 30 days if known 0.8 Creatinine Date Value Range Status 07/31/2014 0.80 0.52 - 1.04 mg/dL Final ] OR DATA Emergent n <24 hours n <1 week n Bowel Prep (Y or N) y Antibiotics (Y or N) y DVT prophylaxis Heparin y SCD y None n Drain n ASA (1,2,3,4) 2 OR time (min) 120 min Stents n Transfuse >/= 2U n Anastomosis Stapled y Handsewn n Leak Test Positive n Negative n Not done y FOR CANCER ALSO COMPLETE: Preoperative treatment (Y or N) Chemo n Radiation n Diversion n If rectal cancer Distance from anal verge (cm) na Location Anterior na Posterior na Lateral na Circumferential na Preoperative Stage CT y MRI n US n Clinical y Unknown n T stage (1,2,3,4) 1 N stage (0,1,2) 0 M stage (0,1) 0 CEA n/a Metastatic disease at time of operation (Y or N) n Route (Have a good day) documented in this encounter Plan of Treatment Not on filedocumented as of this encounter Procedures Procedure Name Priority Date/Time Associated Comments Diagnosis PLATELET COUNT Routine 08/03/2014 7:57 AM Results for this CDT procedure are i n the results section. GLUCOSE BY METER Routine 08/03/2014 6:12 AM Resul ts for this CDT procedure are i n the results section. GLUCOSE Routine 08/02/2014 7:30 AM Results f or this CDT procedure are i n the results section. CBC WITH PLATELETS Routine 08/02/2014 7:30 AM Res ults for this CDT procedure are i n the results section. CBC WITH PLATELETS & Routine 08/01/2014 10:58 Res ults for this DIFFERENTIAL AM CDT procedure are i n the results section. BASIC METABOLIC PANEL Routine 08/01/2014 10:58 Re sults for this AM CDT procedure are i n the results section. GLUCOSE BY METER Routine 08/01/2014 6:36 AM Resul ts for this CDT procedure are i n the results section. UA MACROSCOPIC WITH Routine 07/31/2014 6:05 PM Re sults for this REFLEX TO MICRO AND CDT procedur e are in CULTURE the results section. PLATELET COUNT Routine 07/31/2014 4:50 PM Results for this CDT procedure are i n the results section. CREATININE Routine 07/31/2014 4:50 PM Results f or this CDT procedure are i n the results section. SURGICAL PATHOLOGY Routine 07/31/2014 1:21 PM Res ults for this EXAM CDT procedure are i n the results section. CHROMOGRANIN A Routine 07/31/2014 11:40 Results f or this AM CDT procedure are i n the results section. ABO/RH TYPE AND Routine 07/31/2014 11:40 Results for this SCREEN AM CDT procedure are i n the results section. COLECTOMY, 07/31/2014 11:18 RIGHT COLON MASS LAPAROSCOPIC AM CDT POTASSIUM STAT 07/31/2014 10:00 Results for this AM CDT procedure are i n the results section. CREATININE STAT 07/31/2014 10:00 Results for this AM CDT procedure are i n the results section. documented in this encounter Results Platelet count (08/03/2014 7:57 AM CDT) athologist Signature Platelet Count 211 150 - 450 [place] 10e9/L [facility] Specimen Anatomical Collection Method Collection Time Receive d Time (Source) Location / / Volume Laterality Blood specimen 08/03/2014 7:57 AM 014 8:00 (specimen) CDT AM CDT Jerry Nieves MD LAB - BLOOD ORDERABLES Performing Organization Address City/State/ZIP Code Phon e Number M [facility] [address] [place] [address] [phone] [facility] Glucose by meter (08/03/2014 6:12 AM CDT) athologist Signature Glucose 90 60 - 99 POINT OF CARE mg/dL TEST, GLUCOSE Specimen Anatomical Collection Method Collection Time Receive d Time (Source) Location / / Volume Laterality 08/03/2014 6:12 AM 4 6:15 CDT AM CDT Jerry Nieves MD LAB - BEAKER POCT Performing Organization Address City/[facility]/ZIP Code Phon e Number FV POINT OF CARE TEST, GLUCOSE POINT OF CARE TEST, GLUCOSE (ABNORMAL) Glucose (08/02/2014 7:30 AM CDT) athologist Signature Glucose 116 (H) 70 - 99 [place] mg/dL [facility] Comment: Effective 06/05/2014, the reference range for this assay has changed to reflect new instrumentation/methodology. Specimen Anatomical Collection Method Collection Time Receive d Time (Source) Location / / Volume Laterality Blood specimen 08/02/2014 7:30 AM 014 7:44 (specimen) CDT AM CDT Jerry Nieves MD LAB - BLOOD ORDERABLES Performing Organization Address City/[facility]/ZIP Code Phon e Number M [facility] [address] [place] [address] [facility] (ABNORMAL) CBC with platelets (08/02/2014 7:30 AM CDT) Analysis Performed At Patho logist Time Signature WBC 7.4 4.0 - 11.0 [place] 10e9/L [facility] RBC Count 3.75 (L) 3.8 - 5.2 [place] 10e12/L [facility] Hemoglobin 11.6 (L) 11.7 - [place] 15.7 g/dL [facility] Hematocrit 34.6 (L) 35.0 - [place] 47.0 % [facility] MCV 92 78 - 100 [place] fl [facility] MCH 30.9 26.5 - [facility].0 pg [facility] MCHC 33.5 31.5 - [place] 36.5 g/dL [facility] RDW 13.2 10.0 - [place] 15.0 % [facility] Platelet Count 184 150 - 450 [place] 10e9/L [facility] Specimen Anatomical Collection Method Collection Time Receive d Time (Source) Location / / Volume Laterality Blood specimen 08/02/2014 7:30 AM 014 7:44 (specimen) CDT AM CDT Ca Dunlap MD LAB - BLOOD ORDERABLES Performing Organization Address City/[facility]/[place]IP [facility] [place] Number M [facility] [address] [place] [address] [facility] (ABNORMAL) Basic metabolic panel (08/01/2014 10:58 AM CDT) P athologist Signature Sodium 143 133 - 144 [place] mmol/L [facility] Potassium 3.4 3.4 - 5.3 [place] mmol/L [facility] Chloride 108 94 - 109 [place] mmol/L [facility] Carbon Dioxide 29 20 - 32 [place] mmol/L [facility] Anion Gap 6 6 - 17 [place] mmol/L [facility] Glucose 134 (H) 70 - 99 [place] mg/dL [facility] Comment: Effective 06/05/2014, the reference range for this assay has changed to reflect new instrumentation/methodology. Urea Nitrogen 11 7 - 30 mg/dL [facility] Comment: Effective 06/05/2014, the reference range for this assay has changed to reflect new instrumentation/methodology. Creatinine 0.70 0.52 - 1.04 mg/dL [place] [facility] GFR Estimate 83 >60 mL/min/1.7m2 [facility] Comment: Non GFR Calc GFR Estimate If Black >90 >60 mL/min/1.7m2 [facility] GFR Calc [facility] Calcium 8.6 8.5 - 10.1 mg/dL [facility] Comment: Effective 06/05/2014, the reference range for this assay has changed to reflect new instrumentation/methodology. Specimen Anatomical Collection Method Collection Time Receive d Time (Source) Location / / Volume Laterality Blood specimen 08/01/2014 10:58 4 (specimen) AM CDT 11:04 AM CDT Jerry Nieves MD LAB - BLOOD ORDERABLES Performing Organization Address City/State/ZIP Code Phon e Number M [facility] [address] [place] [phone] [facility] (ABNORMAL) CBC with platelets differential (08/01/2014 10:58 AM CDT) [facility] gist Method Time Signature WBC 12.2 (H) 4.0 - [place] 11.0 [facility] 10e9/L [facility] RBC Count 3.79 (L) 3.8 - 5.2 [place] 10e12/L [facility] Hemoglobin 11.8 11.7 - [place] 15.7 g/dL [facility] Hematocrit 35.0 35.0 - [place] 47.0 % [facility] MCV 92 78 - 100 [facility] MCH 31.1 26.5 - [place] 33.0 pg [facility] MCHC 33.7 31.5 - [place] 36.5 g/dL [facility] RDW 13.2 10.0 - [place] 15.0 % [facility] Platelet Count 204 150 - 450 [place] 10e9/L [facility] Diff Method Automated [place] Method [facility] % Neutrophils 77.2 % [facility] % Lymphocytes 10.7 % [facility] % Monocytes 11.7 % [facility] % Eosinophils 0.1 % [facility] % Basophils 0.1 % [facility] % Immature 0.2 % [place] Granulocytes [facility] Absolute 9.4 (H) 1.6 - 8.3 [place] Neutrophil 10e9/L [facility] Absolute 1.3 0.8 - 5.3 [place] Lymphocytes 10e9/L [facility] Absolute 1.4 (H) 0.0 - 1.3 [place] Monocytes 10e9/L [facility] Absolute 0.0 0.0 - 0.7 [place] Eosinophils 10e9/L [facility] Absolute 0.0 0.0 - 0.2 [place] Basophils 10e9/L [facility] Specimen Anatomical Collection Method Collection Time Receive d Time (Source) Location / / Volume Laterality Blood specimen 08/01/2014 10:58 4 (specimen) AM CDT 11:04 AM CDT Jerry Nieves MD LAB - BLOOD ORDERABLES Performing Organization Address City/State/ZIP Code Phon e Number M [facility] [address] [place] [address] [facility] (ABNORMAL) Glucose by meter (08/01/2014 6:36 AM CDT) P athologist Signature Glucose 147 (H) 60 - 99 POINT OF CARE mg/dL TEST, GLUCOSE Specimen Anatomical Collection Method Collection Time Receive d Time (Source) Location / / Volume Laterality 08/01/2014 6:36 AM 4 6:40 CDT AM CDT Jerry Nieves MD LAB - BEAKER POCT Performing Organization Address City/[facility]/ZIP Code Phon e Number FV POINT OF CARE TEST, GLUCOSE POINT OF CARE TEST, GLUCOSE (ABNORMAL) UA reflex to Microscopic and Culture (07/31/2014 6:05 PM CDT) Component Value Ref Test Analysis Performed At Patholo gist Range Method Time Signature Color Urine Yellow [facility] Appearance Urine Clear [facility] Glucose Urine Negative NEG [place] mg/dL [facility] Bilirubin Urine Negative NEG [facility] Ketones Urine Negative NEG [place] mg/dL [facility] Specific [place] 1.010 1.003 - [place] Urine 1.035 [facility] Blood Urine Trace (A) NEG [facility] pH Urine 7.0 5.0 - [place] 7.0 pH [facility] Protein Albumin Negative NEG [place] Urine mg/dL [facility] Urobilinogen Normal 0.0 - [place] mg/dL 2.0 [facility] mg/dL [facility] Nitrite Urine Negative NEG [facility] Leukocyte Trace (A) NEG [place] Esterase Urine [facility] Source Catheterized [place] Urine [facility] RBC Urine 8 (H) 0 - 2 [place] /HPF [facility] WBC Urine 9 (H) 0 - 2 [place] /HPF [facility] Squamous <1 0 - 1 [place] Epithelial /HPF /HPF [facility] Mucous Urine Present (A) NEG /LPF [facility] Specimen Anatomical Location Collection Method Collection Time Received Time (Source) / Laterality / Volume Urine specimen URINE SPECIMEN 07/31/2014 6:05 07/31/20 14 6:11 (specimen) COLLECTION, PM CDT PM CDT CATHETERIZED / Unknown Ca Dunlap MD LAB - URINE ORDERABLES Performing Organization Address City/[facility]/ZIP Code Phon e Number M [facility] [address] [place] [address] [facility] Creatinine (07/31/2014 4:50 PM CDT) P athologist Signature Creatinine 0.67 0.52 - 1.04 [place] mg/dL [facility] GFR Estimate 87 >60 [place] mL/min/1.7m [address] LAB Comment: Non GFR Calc GFR Estimate If Black >90 >60 mL/min/1.7m2 [facility] GFR Calc [facility] Specimen Anatomical Collection Method Collection Time Receive d Time (Source) Location / / Volume Laterality Blood specimen 07/31/2014 4:50 PM 014 5:04 (specimen) CDT PM CDT Jerry Nieves MD LAB - BLOOD ORDERABLES Performing Organization Address City/State/ZIP Code Phon e Number M [facility] [address] [place] [address] [facility] Platelet count (07/31/2014 4:50 PM CDT) P athologist Signature Platelet Count 202 150 - 450 [place] 10e9/L [facility] Specimen Anatomical Collection Method Collection Time Receive d Time (Source) Location / / Volume Laterality Blood specimen 07/31/2014 4:50 PM 014 5:04 (specimen) CDT PM CDT Jerry Nieves MD LAB - BLOOD ORDERABLES Performing Organization Address City/[facility]/ZIP Code Phon e Number [facility] [address] [place] [address] [phone] [facility] Surgical pathology exam (07/31/2014 1:21 PM CDT) Component Value Ref Test Analysis Performed Pathologis t Range Method Time At Signature [facility] Patient Name: SHAHNAZ PHELPS JENN Report MR#: [id number] Specimen #: [id number] Collected: 07/31/2014 Received: 07/31/2014 Reported: 08/02/2014 15:45 Ordering Phy(s): JERRY NIEVES SPECIMEN(S): Right colon FINAL DIAGNOSIS: ? 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 Terminal ileum, appendix and right colon Specimen Specimen: ?Small intestine ileum Other Organs Received: ?? Right colon and Appendix Procedure: ?Segmental resection Specimen Size: 27.7 ??Cm in length Primary Tumor Site: ?? Small bowel terminal ileum Additional Sites Involved by Tumor: ?? None identified Tumor Focality: ?? Unifocal Tumor Histologic Type: ?? 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 Greatest dimension: 2.1 cm Microscopic Tumor Extension, Small Intestine: ?? Tumor inva juan subserosal tissue without involvement of visceral peritoneum Margins ? Tissue Specimen Type: ?? Small Intestine Resection Sp ecimen Status of Margin Involvement: ?? All margins uninvolved by n euroendocrine tumor Distance of Tumor from Closest Margin: 0.1 mm from the inke d serosal and mesenteric margin Proximal Margin: ?? Uninvolved by neuroendocrine tumor Distal Margin: ?? Uninvolved by neuroendocrine tumor Accessory Findings Mitotic Rate: Less than two per 10 high power montero Lymph-Vascular Invasion: ?? Present Perineural Invasion: ?? Present ? Pathologic Staging (pTNM ?Primary Tumor (pT): ?pT3: ??Tumor i nvades through the muscularis propria into subserosal tissue without penetration of overly ing serosa (jejunal or ileal tumors) Regional Lymph Nodes: ?pN1: ??Metastasis in regional ly mph nodes Number of Lymph Nodes Examined: Nine Number of Lymph Nodes Involved: Five Distant Metastasis (pM): ?Not applicable Ancillary Studies: ?Ki-67 labeling index, <=3 % Additional Pathologic Findings: ?? Other: Appendix show show s early acute appendicitis of distal appendix. 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 Immunohistochemical stains for synaptophysin and chromograni n are positive. ??Ki-67 stains have also been performed. ??The lar gest lymph node metastasis measures 2 cm and there is also some evidenc e of extranodal extension. ??Nodules of carcinoid tumor are seen separately within the mesenteric fat. This case has also been seen in intradepartmental review. The Synoptic diagnosis above and the comment have been dicta mae by Dr. Senthil Hooper at 3:15 p.m. on 08/02/2014 Electronically signed out by: Senthil Hooper M.D. CLINICAL HISTORY: Right colon mass GROSS: The specimen is received in formalin with the patient's name and proper identification labeled right colon. ??The specimen consist s of a pink segment of cecum and ascending colon(16.5 cm in length x 6.6 cm in circumference) with terminal ileum (11.2 cm in length x 5 cm in circumference) with appendix (4.3 cm in length x 0.7 segment is in diameter) and mesenteric fat. ??Surrounding the ileocecal va lve the serosa is puckered with adhesions. ??The specimen is inked b lack. ??On section the terminal ileum has a submucosal nodule (2.1 x 1. 6 x 1.5 cm) with overlying mucosal ulceration. ??This mass is 8 cm from the proximal surgical resection margin and 14 cm with a distal colon surg ical resection margin. ??Grossly the lesion invades through the m uscularis propria into the underlying mesenteric fat. ??Deep to the ma in lesion are two grossly positive nodules measuring 2 cm in greatest dime nsion and 1 cm in greatest dimension. ??The larger grossly positive nodu le extends close if not to the inked serosal surface and inked soft tis rian margin. The smaller grossly positive lymph node extends close if not to the mesenteric margin. ??The main lesion is 3.5 cm from the mese nteric margin. ??No additional lesions are identified the soft tiss ue is removed and dissected for lymph nodes. ??Operational Meteorologist sections are submitted. Cassette 1-4-tumor Cassette 5-appendix Cassette 6-distal margin Cassette 7-proximal margin Cassette 8-9-lymph nodes (Dictated by: Ramón Barrett 014 04:10 PM) MICROSCOPIC: Microscopic performed CPT Codes: A: 31061-FY3, 04216-NFF, 77177-LPY, 51449-KHW, 19160-BNH, SO H TESTING LAB LOCATION: [address] ??[address] COLLECTION SITE: Client: [facility] Location: SHOR (S) Specimen Anatomical Collection Method Collection Time Receive d Time (Source) Location / / Volume Laterality 07/31/2014 1:21 PM 4 1:26 CDT PM CDT Jerry Nieves MD LAB - BEAKER AP Performing Organization Address City/State/ZIP Code Phon e Number [place] Chromogranin A (07/31/2014 11:40 AM CDT) P athologist Signature Chromogranin A [address] [facility] Comment: Reference range: 0 to 95 Unit: ng/mL (Note) INTERPRETIVE INFORMATION: ??Chromogranin A This assay is performed using the [employer]. Results obtained with different assay me thods or kits cannot be used interchangeably. Test developed and characteristics deter mined by [employer]. See Compliance Statement D : [employer] Performed by [employer], [address] [place] [id number] [email or web address], Yamil Brown MD, L ab. Director Specimen Anatomical Collection Method Collection Time Receive d Time (Source) Location / / Volume Laterality 07/31/2014 11:40 07/31/2014 AM CDT 12:00 PM CDT Jerry Nieves MD LAB - BLOOD ORDERABLES Performing Organization Address City/[facility]/ZIP Code Phon e Number M [facility] [address] [place] [address] [facility] ABO/Rh type and screen (07/31/2014 11:40 AM CDT) Patholo gist Method Time Signature ABO AB [facility] RH(D) Pos [facility] Antibody Neg [place] Screen [facility] Test Valid [facility] Only At [facility] Specimen 08/03/2014 [place] Expires [facility] Specimen Anatomical Collection Method Collection Time Receive d Time (Source) Location / / Volume Laterality 07/31/2014 11:40 07/31/2014 AM CDT 12:00 PM CDT Jerry Nieves MD LAB - BLOOD BANK TEST ORDER Performing Organization Address City/State/ZIP Code Phon e Number M [facility] [address] [place] [address] [facility] (ABNORMAL) Potassium (07/31/2014 10:00 AM CDT) P athologist Signature Potassium 3.3 (L) 3.4 - 5.3 [place] mmol/L [facility] Specimen Anatomical Collection Method Collection Time Receive d Time (Source) Location / / Volume Laterality Blood specimen 07/31/2014 10:00 4 (specimen) AM CDT 10:01 AM CDT Authorizing Provider Result Spencer Pérez MD LAB - BLOOD ORDERABLES Performing Organization Address City/State/ZIP Code Phon e Number M [facility] [address] [place] [address] [facility] Creatinine (07/31/2014 10:00 AM CDT) athologist Signature Creatinine 0.80 0.52 - 1.04 [place] mg/dL [facility] GFR Estimate 71 >60 [place] mL/min/1.7m [address] LAB Comment: Non GFR Calc GFR Estimate If Black 86 >60 mL/min/1.7m2 [facility] Comment: GFR Calc Specimen Anatomical Collection Method Collection Time Receive d Time (Source) Location / / Volume Laterality Blood specimen 07/31/2014 10:00 4 (specimen) AM CDT 10:01 AM CDT Authorizing Provider Result Spencer Pérez MD LAB - BLOOD ORDERABLES Performing Organization Address City/State/ZIP Code Phon e Number [facility] [address] [place] [address] [phone] [facility] documented in this encounter Visit Diagnoses Diagnosis 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 documented in this encounter Administered Medications Inactive Administered Medications - up to 3 most recent administrations Medication Order MAR Action Action Date Dose Rate Site amLODIPine (NORVASC) tablet 7.5 mg Given 08/04/2014 8:34 AM CDT 7.5 mg 7.5 mg, Oral, DAILY, First dose on Lizzette 08/01/14 at 0900 Given 08/03/2014 9:24 AM CDT 7.5 mg Given 08/02/2014 8:18 AM CDT 7.5 mg ciprofloxacin (CIPRO) IVPB 400 mg New 08/01/2014 12:04 PM CDT 400 mg 200 mL/hr Routine, 400 mg, Intravenous, EVERY 12 HOURS, First dose on Tue07/31/14 at 2300, For 2 doses, Indications: Perioperative Pharmacoprophylaxis New 07/31/2014 10:10 PM CDT 400 mg 200 mL/hr dextrose 5 % and 0.45 % NaCl + Rate/Dose Change 08/02/2014 8:19 AM CDT 50 mL/hr KCl 20 mEq/L at 50 mL/hr, Intravenous, CONTINUOUS, Change to saline lock when well tolerated., Post-procedure, Starting on Tue07/31/14 at 1600, Until Tue08/02/14 at 1119 New 08/02/2014 4:22 AM CDT 100 mL/hr Rate/Dose Verify 08/02/2014 12:00 AM CDT 100 mL/hr enoxaparin (LOVENOX) injection 40 mg Given 08/04/2014 8:34 AM CDT 40 mg 40 mg, Subcutaneous, EVERY 24 HOURS, First dose on Lizzette 08/01/14 at 0815, Check to make sure start date/time is 12-24 hours post op unless documented complication, AND no sooner than 22 hours post op if spinal anesthesia used. Continue until discharge to home. HOLD if platelet count falls below 50% of baseline or <100,000/??L and notify MD., Post-procedure Given 08/03/2014 9:26 AM CDT 40 mg Given 08/02/2014 8:18 AM CDT 40 mg hydrochlorothiazide (HYDRODIURIL) tablet 25 mg Given 08/04/2014 8:34 AM CDT 25 mg 25 mg, Oral, DAILY, First dose on Tue07/31/14 at 1600 Given 08/03/2014 9:24 AM CDT 25 mg Given 08/02/2014 8:18 AM CDT 25 mg HYDROmorphone (DILAUDID) LOCUM TENENS 1 mg/mL Shift Total 08/02/2014 5:09 AM CDT LOCUM TENENS dose (mg): 0.1, Max LOCUM TENENS dose (mg): 0.2, Lockout Interval (min): 10 minutes, LOCUM TENENS Continuous Rate (mg/hr): CONTINUOUS RATE IS NOT RECOMMENDED FOR OPIOID NAIVE PATIENTS, Hour Limit (mg): 1.2, First dose on Tue07/31/14 at 1600, Do NOT give additional opioids orders unless requested by provider., Intravenous, Post-procedure Shift Total 08/01/2014 9:42 PM CDT 0.9 mg Shift Total 08/01/2014 2:14 PM CDT HYDROmorphone (PF) (DILAUDID) injection Given 07/31/2014 3:01 PM CDT 0.5 mg 0.3-0.5 mg 0.3-0.5 mg, Intravenous, EVERY 5 MIN PRN, moderate to severe pain, acute pain. May administer if RR is > 10 , Starting on Tue07/31/14 at 1426, If fentanyl is also ordered, use HYDROmorphone if pain control insufficient with fentanyl or a longer acting agent is needed. Max cumulative dose = 2 mg, PACU Given 07/31/2014 2:40 PM CDT 0.5 mg Given 07/31/2014 2:31 PM CDT 0.5 mg ketorolac (TORADOL) injection 15 mg Given 08/04/2014 6:26 AM CDT 15 mg 15 mg, Intravenous, EVERY 6 HOURS, First dose on Lizzette 08/01/14 at 1715, For 5 days Given 08/03/2014 11:20 PM CDT 15 mg Given 08/03/2014 5:45 PM CDT 15 mg lactated ringers infusion New Bag 07/31/2014 1:12 PM CDT at 75-100 mL/hr, Intravenous, CONTINUOUS, UNLESS otherwise indicated., Pre-procedure, Starting on Tue07/31/14 at 1000, Until Tue07/31/14 at 1409 New Bag 07/31/2014 11:40 AM CDT New Bag 07/31/2014 10:38 AM CDT 1,000 mLs 75 mL/hr lidocaine BUFFERED 1 % solution 0.1-1 mL Given 07/31/2014 10:15 AM CDT 0.5 mLs 0.1-1 mL, Intradermal, ONCE PRN, mild pain with VAD insertion or accessing implanted port., Starting on Tue07/31/14 at 0953, For 1 dose, Do NOT give if patient has a history of allergy to any local anesthetic or any rebecca product., Pre-procedure metroNIDAZOLE (FLAGYL) IVPB 500 mg New Bag 08/01/2014 2:13 PM CDT 500 mg 100 mL/hr Routine, 500 mg, Intravenous, EVERY 6 HOURS, First dose on Tue07/31/14 at 1700, For 4 doses, Indications: Perioperative Pharmacoprophylaxis New Bag 08/01/2014 7:57 AM CDT 500 mg 100 mL/hr New Bag 08/01/2014 1:52 AM CDT 500 mg 100 mL/hr midazolam (VERSED) injection 1-3 mg Given 07/31/2014 10:30 AM CDT 2 mg 1-3 mg, Intravenous, PRE-OP/PRE-PROCEDURE, Starting on Tue07/31/14 at 0953, For 1 dose, In Pre Op for anxiety/sedation, may repeat up to max of 4 mg, Pre-procedure ondansetron (ZOFRAN) injection 4 mg Given 08/01/2014 6:17 PM CDT 4 mg 4 mg, Intravenous, EVERY 6 HOURS PRN, nausea, vomiting, Administer over 2-5 Minutes, Starting on Tue07/31/14 at 1556, This is Step 1 of nausea and vomiting protocol. If nausea not resolved in 15 minutes, go to Step 2 (Prochlorperazine)., Post-procedure oxyCODONE-acetaminophen (PERCOCET) 5-325 Given 08/02/2014 10 :24 PM CDT 1 tablet MG per tablet 1-2 tablet 1-2 tablet, Oral, EVERY 4 HOURS PRN, moderate to severe pain, Starting on Tue08/02/14 at 1119, Hold while on LOCUM TENENS or with regular IV opioid dosing. Please give with food Maximum acetaminophen dose from all sources= 75 mg/kg/day not to exceed 4 grams, Post-procedure Given 08/02/2014 6:34 PM CDT 1 tablet Given 08/02/2014 2:36 PM CDT 1 tablet phenol-menthol (CEPASTAT) lozenge 1-2 Given 08/03/2014 11:53 AM CDT 2 lozenges lozenge 1-2 lozenge, Buccal, EVERY 1 HOUR PRN, sore throat, without fever, Starting on Tue07/31/14 at 1556, Post-procedure scopolamine (TRANSDERM-SCOP) Given 07/31/2014 10:38 AM CDT 1 pat ch Behind Left Ear 1.5 MG patch 1 patch 1 patch, Transdermal, ONCE, On Tue07/31/14 at 1045, For 1 dose, Apply patch to skin, behind ear. Place in Pre-Op. Remove after 24 hours. Do NOT cut patch., Pre-procedure sodium chloride (PF) 0.9% PF flush 3 mL Given 08/04/2014 6:26 AM CDT 3 mLs 3 mL, Intravenous, EVERY 8 HOURS, First dose on Tue07/31/14 at 2200, to lock peripheral IV dormant line. Also Ordered Q1H PRN, Post-procedure Given 08/03/2014 11:20 PM CDT 3 mLs Given 08/03/2014 5:54 AM CDT 3 mLs sodium chloride (PF) 0.9% PF flush 3 mL Given 08/02/2014 5:06 PM CDT 3 mLs 3 mL, Intravenous, EVERY 1 HOUR PRN, line flush, to lock peripheral IV dormant line., Starting on Tue07/31/14 at 1556, Also Ordered EVERY 8 HOURS., Post-procedure documented in this encounter Active and Recently Administered Medications Times are shown in CDT. Scheduled Medication Order 08/02/2014 08/03/2014 08/04/2014 amLODIPine (NORVASC) tablet 7.5 mg (CANCELED) 0818 (Gi marialuisa - Provider: Mehreen Dowell RN) 0924 (Given - Provider: Mehreen Dowell RN) 0834 (G iven - Provider: Mehreen Dowell RN) 7.5 mg, Oral, DAILY, First dose on Tue08/01/14 at 0900 enoxaparin (LOVENOX) injection 40 mg 0818 (Given - Pro vider: Mehreen Dowell RN) 0926 (Given - Provider: Mehreen Dowell, BETO) 0834 (G iven - Provider: Mehreen Dowell RN) 40 mg, Subcutaneous, EVERY 24 HOURS, Fir st dose on Lizzette 08/01/14 at 0815, Check to make sure start date/time is 12-24 hours post op unless documented complication, AND no sooner than 22 hours post op if s neil anesthesia used. Continue until di scharge to home. HOLD if platelet count falls below 50% of baseline or <100,000/??L and notify MD., Post-procedure hydrochlorothiazide (HYDRODIURIL) tablet 25 mg (CANCEL ED) 0818 (Given - Provider: Mehreen Dowell RN) 0924 (Given - Provider: Mehreen Dowell, BETO) 0834 (Given - Provider: Mehreen Dowell RN) 25 mg, Oral, DAILY, First dose on Tue07/31/14 at 1600 HYDROmorphone (DILAUDID) LOCUM TENENS 1 mg/mL (CANCELED) 0200 ( Canceled Entry - Provider: Renetta Thompson, BETO)0509 (Shift Total - Provider: Renetta Thompson, BETO) LOCUM TENENS dose (mg): 0.1, Max LOCUM TENENS dose (mg): 0 .2, Lockout Interval (min): 10 minutes, LOCUM TENENS Continuous Rate (mg/hr): CONTINUOUS RATE IS NOT RECOMMENDED FOR OPIOID NAIVE PATIENTS, Hour Limit (mg): 1.2, Starting Tue07/31/14 at 1600, Do NOT give additio nal opioids orders unless requested by provider., Intravenous, Post-procedure ketorolac (TORADOL) injection 15 mg (CANCELED) 0507 (G iven - Provider: Renetta Thompson RN)1102 (Given - Provider: Mehreen Dowell RN)1706 (Given - Provider: America Ibanez)2224 (Given - Provider: America Ibanez) 0554 (Given - Provider: Wolf Hernández RN)1148 (Given - Provider: Mehreen Dowell RN)1745 (Given - Provider: Carlyn Pederson, BETO)2320 (Given - Provider: Domonique Nielsen, BETO) 0626 (Given - Provider: Domonique Nielsen, RN) 15 mg, Intravenous, EVERY 6 HOURS, First dose on Lizzette 08/01/14 at 1715, For 5 days sodium chloride (PF) 0.9% PF flush 3 mL (CANCELED) 050 9 (Not Given - Provider: Renetta Thompson RN - Reason: IV Infusing)1410 (Given - Provider: Mehreen Dowell RN - Comment: flushed when IVF d/c'd)2224 (Given - Provider: America Ibanez) 0554 (Given - Provider: Jhonny Torres)1840 (Not Given - Provider: Carlyn Pederson RN - Reason: Order parameters not met)2320 (Given - Provider: Domonique Nielsen, RN) 0626 (Given - Provider: Domonique Nielsen, RN) 3 mL, Intravenous, EVERY 8 HOURS, First dose on Tue07/31/14 at 2200, to lock peripheral IV dormant line. Also Ordered Q1H PRN, Post-procedure Continuous Medication Order 08/02/2014 08/03/2014 08/04/2014 dextrose 5 % and 0.45 % NaCl + KCl 20 mEq/L (CANCELED) 0000 (Rate/Dose Verify - Provider: Renetta Thompson, BETO)0422 (New Bag - Provider: Renetta hTompson, RN)0819 (Rate/Dose Change - Provider: Mehreen Dowell, BETO) at 50 mL/hr, Intravenous, CONTINUOUS, Ch blanca to saline lock when well tolerated., Post-procedure, Starting Tue07/31/14 at 1600, Until Tue08/02/14 at 1119 PRN Medication Order 08/02/2014 08/03/2014 08/04/2014 oxyCODONE-acetaminophen (PERCOCET) 5-325 MG per tablet 1-2 tablet 1436 (Given - Provider: Mehreen Dowell, BETO)1834 (Given - Provider: America Ibanez)2224 (Given - Provider: America Ibanez) 1-2 tablet, Oral, EVERY 4 HOURS PRN, mod erate to severe pain, Starting Tue08/02/14 at 1119, Hold while on LOCUM TENENS or with regular IV opioid dosing. Please give with food Maximum acetaminophen dose from all sources= 75 mg/kg/day not to exceed 4 grams, Post-procedure phenol-menthol (CEPASTAT) lozenge 1-2 lozenge (CANCELED) 1153 (Given - Provider: Mehreen Dowell, BETO) 1-2 lozenge, Buccal, EVERY 1 HOUR PRN, s ore throat, without fever, Starting Tue07/31/14 at 1556, Post-procedure sodium chloride (PF) 0.9% PF flush 3 mL (CANCELED) 170 6 (Given - Provider: America Ibanez) 3 mL, Intravenous, EVERY 1 HOUR PRN, arina e flush, to lock peripheral IV dormant line., Starting Tue07/31/14 at 1556, Also Ordered EVERY 8 HOURS., Post-procedure documented in this encounter Care Teams Data Migration Lead Relationship Specialty Start Date End Date Liudmila David MD PCP - General Family Practice 02/12/14 1 12/06/19 documented as of this encounter
--- OUTSIDE RECORDS SUMMARY | 2022-08-18 09:31 | XMS_ITS | Encounter Summary ---
:1945 Author Organization [facility] Address [address] [place] [address] Care Team Providers Name Role Phone Liudmila David MD Primary Care Provider Unavailable Reason for Visit Reason Comments Pre-Op Exam Encounter Details Date Type Department Care Team Description 07/25/2014 Office Visit [facility] Liudmila David MD examination (Primary [address]) [address] [place] [address] Social History Tobacco Use Types Packs/Day Years Used Date Smoking Tobacco: Former Cigarettes Quit : 11/07/1995 Smokeless Tobacco: Never Alcohol Use Standard Drinks/Week Comments Yes 0 (1 standard drink = 0.6 oz pure alcoho l) rare Sex Assigned at Date Recorded Female 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 Last Filed Vital Signs Vital Sign Reading Time Taken Comments Blood Pressure 150/82 07/25/2014 11:43 AM CDT Pulse 78 07/25/2014 11:43 AM CDT Temperature 36.8 ??C (98.2 ??F) 07/25/2014 11:43 AM CDT Respiratory Rate - - Oxygen Saturation - - Inhaled Oxygen Concentration - - Weight 93.2 kg (205 lb 6.4 oz) 07/25/2014 11:43 AM CDT Height 168.9 cm (5' 6.5) 07/25/2014 11:43 AM CDT Body Mass Index 32.66 07/25/2014 11:43 AM CDT documented in this encounter Patient Instructions Patient InstructionsLiudmila David MD - 07/25/2014 12:39 PM CDT Stop citracal and vitamins now until after surgery Continue blood pressure pills but do not take HCTZ (hydrochlorothiazide) the morning of surgery Take your usual dose of amlodipine the day of surgery documented in this encounter Progress Notes Liudmila David MD - 07/25/2014 11:48 AM CDT [facility] [address] [place] [address]. [address] [facility] [address] PRE-OP EVALUATION: Today's date: 07/25/2014 Shahnaz Phelps (: 1945) presents for pre-operative evaluation assessment as requestedby Dr. Lane. She requires evaluation and anesthesia risk assessment prior to undergoing surgery/procedure for treatment of Right colon mass . Proposed procedure: Lap assisted Right Colectomy Date of Surgery/ Procedure: 07/31/2014 Time of Surgery/ Procedure: 2:00PM Hospital/Surgical Facility: [facility] Primary Physician: Dr David Type of [...] Urge incontinence 03/28/2012 Priority: Medium ??? 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 Living will, counseling/discussion 02/26/2012 [...] physician. Preop Guidelines documented in this encounter Nursing Notes July Keenan - 07/25/2014 11:45 AM CDT Shahnaz is here today for a preop exam, colon mass. Pre-visit planning discussed: Immunizations - up to date Mammogram - up to date Colonoscopy - up to date Asthma - na PHQ9/JAY - na Questioned patient about current smoking habits. Pt. quit smoking some time ago. Body mass index is 32.66 kg/(m^2). BP Cuff left Arm lrg Cuff PULSE regular My Chart: accepts documented in this encounter Plan of Treatment Not on filedocumented as of this encounter Procedures Procedure Name Priority Date/Time Associated Diagnosis Comme nts POTASSIUM Routine 07/25/2014 2:23 PM Preoperative Results f or this CDT examination procedure are i n the results section. EKG 12-LEAD Routine 07/25/2014 12:03 Preoperative Results for this COMPLETE W/READ - PM CDT examination procedure are in CLINICS the results section. CL AFF Routine 07/25/2014 11:57 Preoperative Results for this HEMOGRAM/PLATE/DIFF AM CDT examination procedur e are in the results section. HC VENOUS Routine 07/25/2014 11:44 Preoperative COLLECTION AM CDT examination documented in this encounter Results POTASSIUM ([facility]) (07/25/2014 2:23 PM CDT) P athologist Signature Potassium 3.7 3.5 - 5.3 [facility] mmol/L [facility] [place] Specimen Anatomical Collection Method Collection Time Receive d Time (Source) Location / / Volume Laterality Blood specimen 07/25/2014 2:23 PM 014 5:26 (specimen) CDT AM CDT Resulting Agency Comment Performing Organization Information: ? CB ? [facility] ? [address] [facility] [place] [phone] ? Juanito Hardy M.D. Liudmila David MD LAB - BLOOD ORDERABLES Performing Organization Address City/State/ZIP Code Phon e Number [facility] [address] [facility] [place] [address] [facility] [address] [facility] [address] [place], [place] [address] EKG 12-lead complete w/read - Clinics (07/25/2014 12:03 PM CDT) Specimen (Source) Anatomical Collection Method Collection Time Re ceived Time Location / / Volume Laterality 07/25/2014 12:03 PM CDT Narrative This result has an attachment that is no t available. Liudmila David MD ECG ORDERABLES Performing Organization Address City/State/ZIP Code Phon e Number [facility] HEMOGRAM/PLATE/DIFF ([facility]) (07/25/2014 11:57 AM CDT) P athologist Signature WBC 7.2 4.0 - 11 [facility] 10*9/L RBC Count 4.37 3.8 - 5.2 [facility] 10*12/L Hemoglobin 13.8 11.7 - 15.7 [facility] g/dL Hematocrit 43.1 35.0 - 47.0 [facility] % MCV 98.7 78 - 100 fL [facility] MCH 31.6 26 - 33 pg [facility] MCHC 32.0 31 - 36 [facility] g/dL Platelet Count 227 150 - 375 [facility] 10^9/L % Granulocytes 63.3 % [facility] % Lymphocytes 26.5 % [facility] % Monocytes 10.2 % [facility] Specimen (Source) Anatomical Collection Method Collection Time Re ceived Time Location / / Volume Laterality 07/25/2014 11:57 AM CDT Liudmila David MD LABORATORY Performing Organization Address City/State/ZIP Code Phon e Number [facility] documented in this encounter Visit Diagnoses Diagnosis Preoperative examination - Primary Preoperative examination, unspecified documented in this encounter Care Teams Senior Electrical Project Manager Relationship Specialty Start Date End Date Liudmila David MD PCP - General Family Practice 02/12/14 1 12/06/19 documented as of this encounter
--- OUTSIDE RECORDS SUMMARY | 2022-08-18 09:31 | XMS_ITS | Encounter Summary ---
:1945 Author Organization [facility] Address [address] [place] [address] Care Team Providers Name Role Phone Liudmila David MD Primary Care Provider Unavailable Encounter Details Date Type Department Care Team Description 05/20/2014 Hospital Encounter [facility] Jerry Lane (Changed Jose Brito MD Appt Time, Date or 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 BRENDAN PINZON MD Narrative 05/22/2014 10:46 AM CDT NUCLEAR [...] is also likely physiologic. Procedure Note Brendan Pinzon MD - 05/22/2014Forma tting of this note [...] may be helpful for further evaluation. BRENDAN PINZON MD Jerry Lane MD IMG NM ORDERABLES documented in this encounter Visit Diagnoses Not on filedocumented in this encounter Care Teams Workplace Relations Adviser Relationship Specialty Start Date End Date Liudmila David MD PCP - General Family Practice 02/12/14 1 12/06/19 documented as of this encounter
--- OUTSIDE RECORDS SUMMARY | 2022-08-18 09:31 | XMS_ITS | Encounter Summary ---
:1945 Author Organization [facility] Address [address] [place] [address] Care Team Providers Name Role Phone Liudmila David MD Primary Care Provider Unavailable Reason for Visit Reason Comments Consult ventral hernia Encounter Details Date Type Department Care Team Description 04/10/2015 Office Visit [facility] Hunter Barcenas Ventral hernia Surgery Clinic MD Brendan without obstruction [place] [address] or gangrene (Primary 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 encounter Last Filed Vital Signs Vital Sign Reading Time Taken Comments Blood Pressure 136/68 04/10/2015 11:02 AM CDT Pulse 78 04/10/2015 11:02 AM CDT Temperature - - Respiratory Rate - - Oxygen Saturation 97% 04/10/2015 11:02 AM CDT Inhaled Oxygen Concentration - - Weight 97.5 kg (215 lb) 04/10/2015 11:02 AM CDT pt repo rted Height 170.2 cm (5' 7) 04/10/2015 11:02 AM CDT pt repo rted Body Mass Index 33.67 04/10/2015 11:02 AM CDT documented in this encounter Patient Instructions Patient InstructionsLori Berg - 04/10/2015 11:[address] ABDOMEN AND PELVIS WITH CONTRAST Date: 04-14-15 Time: 11:30 am Location: [facility] [address] [facility] [address] [place] [phone] Please check in at 11:[address] scanning Do not eat or drink anything TWO hours prior to your exam except for prep: Mix all the liquid from the bottle Omnipaque 140 (50mL) with 20 ounces of water. Drink 1/2 of the mixture at: 9:30 am (two hours before) Drink the rest of the mixture at: 10:30 am (one hour before) Please bring an updated list of all your medications, including IV Chemo Therapy over the counter and herbal supplements. For questions regarding your test please call [phone]. If you are taking any medications and you have questions, please call your primary care physician. documented in this encounter Progress Notes Hunter Barcenas MD - 04/10/2015 3:21 PM CDT April 10, 2015 Liudmila David MD [address] [place] [address]., [address] [place] [phone] Re: Shahnaz Glasgow - JANELLE [address] David: I had the pleasure of meeting your patient, Ms. Abdul, and her in my office today regarding a new diagnosis of a symptomatic incisional hernia. Her surgical history is significant for an ileocolic resection performed with laparoscopic assistance in July of last year by Dr. Jerry Lane. This was in the context of a carcinoid tumor. She noticed in January of this year a mild bulging in the site which she attributes to shoveling snow shortly before this. Initially it caused some discomfort but this has subsided somewhat in the interim. She does think, however, that it has enlarged over the intervening 3 months. She has not had any obstructive symptoms. 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 On exam, there is a well-healed periumbilical skin incision, there is a visible bulge just underlying this which is areducible fat-containing hernia with a fascial defect measuring somewhere in the range of 3 cm. I had a discussion with Ms. Bucio about hernias, their anatomic considerations and indications for repair. As it seems to have enlarged in the intervening 3 months and she did have an intermittentpain syndrome, she is interested in pursuing surgical repair at this time. I have asked that she unde rgo a preoperative CAT scan for planning to discern the dimensions of the hernia defect as well. I also told her I would discuss the matter with Dr. Lowe but it seems unlikely that she is high risk for early recurrence and should not need any surgical intervention in the coming years. Thank you very much for involving me in her care. Sincerely, MD FARNAZ Sen/tarun CC: Jerry Lane MD [address], [address] [place], [place] [address] CC: Winifred Lowe MD [address] [facility], [address] [place], [place] [address] HUNTER BARCENAS MD MT: JKG Name: SHAHNAZ GLASGOW MRN: [id number] Account: [id number] : 1945 Service Date: 04/10/2015 Document: [id number] [facility] ROS Physical Exam Hunter Barcenas MD - 04/10/2015 12:32 PM CDT Shahnaz is a 69 year old female who presents for hernia evaluation. The patient has noticed a bulgewhich she thinks has enlarged slowly in the mean time. Pain has been present. Symptoms began 3 months ago and seemed to appear shortly after shoveling snow. The patient has had previous abdominal surgery including a laparoscopic ileocolectomy by Dr Arreguin for a carcinoid tumor. Patient does report that increased activity/lifting causes pain. 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 Constipation No Dysuria No Cough No Smoking No Pt's chart has been reviewed for PMH, PSH, allergies, medications and social history. ROS: Pulm: No shortness of breath, dyspnea on exertion, cough, or hemoptysis CV: negative ABD: See chief complaint : negative BP 136/68 mmHg Pulse 78 Ht 5' 7 (1.702 m) Wt 215 lb (97.523 kg) BMI 33.67 kg/m2 SpO2 97% ? No Physical exam: Patient able to get up on table without difficulty. Abdomen is abdomen is soft without significant tenderness There is a well healed jagdish-umbilical incision which is protuberant when standing; there is an augmentable bulge here which reduces when supine. The fascial defect is about 3cm in diameter. Imaging None Assesment: ventral incisional. Plan: The nature of hernias, anatomic considerations, indications and approaches to repair were discussed. Risks of operative intervention were discussed including infection, bleeding, harm to structures as well as recurrence, which is about 5% per decade of life. Post operative recuperation and activity limitations were reviewed as well. The patient is interested in pursuing repair and we will assist in scheduling this with her. She will undergo a CAT scan for operative planning prior to surgery as well. Hunter Jiménez MD 04/10/2015 12:32 PM Please route or send letter to: Primary Care Provider (PCP) Dr Jerry Lowe Carlie Clark CMA - 04/10/2015 11:01 AM CDT HPI ROS (Review of Systems): [...] there is no evidence for obstruction. ? RUTHANN SMITH MD Narrative 04/14/2015 4:[address] [...] thy. No free fluid. ? Procedure Note Ruthann Smith MD - 04/14/2015For matting of this note [...] but there is no evidence for obstruction. RUTHANN SMITH MD Hunter Barcenas MD IMG CT ORDERABLES documented in this encounter Visit Diagnoses Diagnosis Ventral hernia without obstruction or ga ngrene - Primary Ventral hernia, unspecified, without men tion of obstruction or gangrene Ventral hernia without obstruction or ga ngrene Ventral hernia, unspecified, without men tion of obstruction or gangrene documented in this encounter Care Teams Lead Sprinkler Relationship Specialty Start Date End Date Liudmila David MD PCP - General Family Practice 02/12/14 1 12/06/19 documented as of this encounter
--- OUTSIDE RECORDS SUMMARY | 2022-08-18 09:31 | XMS_ITS | Encounter Summary ---
:1945 Author Organization [facility] Address [address] [place] [address]. [place] [address] Care Team Providers Name Role Phone Liudmila David MD Primary Care Provider Unavailable Reason for Visit Auth/Cert - Closed Specialty Diagnoses / Procedures Referred By Contact Refer red To Contact Surgery Diagnoses RIGHT COLON MASS Sh Periop Services Procedures LAPAROSCOPIC ASSISTED COLECTOMY [address] [place] [phone] Phone: Referral ID Status Reason Start Date Expiration Date Visits Requ ested Visits Authorized [id number] Closed 1 1 Encounter Details Date Type Department Care Team Description 07/31/[address] [facility] Jerry Nieves MD LAPAROSCOPIC-ASSISTED [place] PeriOP COLON RECTAL SURG RIGHT COLECTOMY [facility] [address], [address] [place] [address] [place] [id number] (Wo rk) Surgery Details Date/Time Status Location OR Service Patient Case Case Traum a Class Class Type Case? 07/31/14 11:40 Posted SH OR OR M [place] AM 41 Admit Panel 1 Procedure LRB Anes Op Region Wound Class Commen ts LAPAROSCOPIC-ASSISTE Right General Abdomen II-Clean Contam inated LAPAROSCOPIC-ASSIST D RIGHT COLECTOMY ED [facility] T COLECTOMY Surgeon Surgeon Role Service Panel Jerry Nieves MD Primary [place]-Rectal 1 Ca Dunlap MD Assisting [place]-[facility]al 1 documented in this encounter Social History Tobacco Use Types Packs/Day Years Used Date Smoking Tobacco: Former Cigarettes 0.5 Quit : 11/07/1995 Smokeless Tobacco: Never Alcohol Use Standard Drinks/Week Comments Yes 0 (1 standard drink = 0.6 oz pure alcoho l) rare - wine once in a while Sex Assigned at Date Recorded Female 10/17/2018 7:14 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 [employer] documented as of this encounter Last Filed Vital Signs Vital Sign Reading Time Taken Comments Blood Pressure 133/69 07/31/2014 3:00 PM CDT Pulse 72 07/31/2014 2:09 PM CDT Temperature 36.1 ??C (96.9 ??F) 07/31/2014 2:09 PM CDT Respiratory Rate 20 07/31/2014 3:00 PM CDT Oxygen Saturation 94% 07/31/2014 3:00 PM CDT Inhaled Oxygen Concentration - - Weight 90.7 kg (200 lb) 07/31/2014 10:05 AM CDT Height 167.6 cm (5' 6) 07/31/2014 10:05 AM CDT Body Mass Index 32.28 07/31/2014 10:05 AM CDT documented in this encounter Discharge Summaries Jerry Nieves MD - 08/04/2014 10:12 AM CDT [facility] Discharge Summary Shahnaz Phelps Age: [age] year old Date of : 1945 Date of Admission: 07/31/2014 Date of Discharge:: 08/04/2014 Admitting Physician: Jerry Nieves MD Discharge Physician: Jerry Nieves MD PCP: Liudmila David Disposition: Patient discharged from [facility] to home in stable condition. Primary Diagnosis: [...] n DVT n PE n CVA n TX n Enterocutaneous fistula n Peripheral nerve injury [...] AM CDT Discharge Instructions following Abdominal Surgery [facility] 33 Bowel Function After [...] if you have these signs or symptoms: ([phone]) ??? Problem with the incision, including increasing [...] Physician [facility] Pager: [phone] Meena Hector MD - 08/04/2014 7:43 AM CDT Chart check. Pt to f/u @ [facility]. Jerry Nieves MD - [...] as outpatient Jerry Nieves MD Colorectal Surgery [phone] (office) [phone] (pager) [email or web address] Interval History: No events overnight. [...] mg Oral Daily 7.5 mg at 08/02/14 0818 ??? hydrochlorothiazide (HYDRODIURIL) tablet 25 mg 25 [...] mg Intravenous Q6H PRN 4 mg at 08/01/147 ??? prochlorperazine (COMPAZINE) injection 5 mg 5 [...] Physician [facility] Pager: [phone] CRS Staff Seen and examined. Agree with above. I reviewed the path with her. Will have oncology see her. Advance diet as tolerated. Likely d/c this weekend. Will need 30 days lovenox for prophylaxis. Jerry Nieves MD Colorectal Surgery [phone] (office) [phone] (pager) [email or web address] Jerry Nieves MD - 08/01/2014 [...] [Urine:2150; Blood:20] UOP over last 24 hrs: 2000 OR: 150 UOP, EBL 20 Physical Exam: [...] tumor. Doing well. PLAN: 1) Pain control: BOTTOM FINISHER 2) Encourage IS, ambulation 3) FEN/GI: clears as tolerated. Maint IVF 4) : Douglas to monitor urine output, noted to have cloudy urine on admission, UA showed trace leukocyte esterase but neg for nitrates. Will monitor for now. 5) Proph: Aksoua Dunlap MD MPH Resident Physician [facility] Pager: [phone] CRS Seen and examined yesterday. Will add toradol for pain. Douglas out in the AM. Jerry Nieves MD Colorectal Surgery [phone] (office) [phone] (pager) [email or web address] Carley Mtz RN - 08/01/2014 [...] David MD - 07/25/2014 11:48 AM CDT [facility] [address] [place] [address]. [address] [place] [address] PRE-OP EVALUATION: Today's date: 07/25/2014 Shahnaz Phelps (: 1945) presents for pre-operative evaluation assessment as requestedby Dr. Nieves. She requires evaluation and anesthesia risk assessment prior to undergoing surgery/procedure for treatment of Right colon mass . Proposed procedure: Lap assisted Right Colectomy Date of Surgery/ Procedure: 07/31/2014 Time of Surgery/ Procedure: 2:00PM Hospital/Surgical Facility: [facility] Primary Physician: Dr David Type of Anesthesia [...] Urge incontinence 03/28/2012 Priority: Medium ??? Health Mcfp 2012 Priority: Low State Tier Level: Tier 2 Status: n/a Die Fitter: See Letters for [facility] Care Plan ??? [...] stripper 2013 lower leg sclerosis/ laser therapy Current Outpatient [...] 11:12 AM CDTAssociated Order(s): ONCOLOGY IP CONSULT [facility] Consultation Shahnaz Phelps Date of : [...] next 3 months. She lives [place] of [place] and wishes to follow-up in our [place] clinic. Therefore I will arrange for f/u [...] positive for involvement. Shehad an octreoscan on 05/22/14 that identified abnormal radiotracer activity in the [...] None Entered Current Facility-Administered Medications Ordered in Epic Medication [...] Q1H PRN Current Outpatient Prescriptions Ordered in Epic Medication ??? oxyCODONE-acetaminophen (PERCOCET) 5-325 MG per [...] 11:55 AM CDT Problem: IP GENERAL POC-ADULT,OB,BEHAVIORAL FVC Goal: Individualization/Patient-Specific Goal (Adult,OB,Behavioral 07-31-14 Procedure(s) Performed: [...] Care Review (Adult,OB,Behavioral) The patient and/or their wire rope sales representative will communicate an understanding of their [...] they plan on rounding. He is in [place], so is about 45 minutes away. Problem: [...] diet. Up SBA. Pain is controlled with BOTTOM FINISHER. BS are active- denies flatus. Adequate urine output via douglas. No nausea overnight. Slept between cares. Continue to monitor. Plan of Care - Isabelle Shaikh RN - 08/01/2014 3:03 PM CDT Problem: IP GENERAL POC-ADULT,OB,BEHAVIORAL FVCPM Goal: Individualization/Patient-Specific Goal (Adult,OB,Behavioral 07-31-14 Procedure(s) Performed: Procedure(s) with comments: LAPAROSCOPIC ASSISTED COLECTOMY - LAPAROSCOPIC-ASSISTED RIGHT COLECTOMY Outcome: Improving Tolerating some clear liquids without nausea. BOTTOM FINISHER dilaudid controlling pain. Ambulated in corado X [...] chips. Up 1 assist. Pain is controlledwith BOTTOM FINISHER. BS are active. Adequate urine output via [...] 2L of O2. Minimal complaints of pain. BOTTOM FINISHER for pain. Incisions CDI. Faint BS. Not yet passing flatus. Douglas in place. Dangled and stood at the bedside this shift. Up with one. Op Note - Jerry Nieves MD - 07/31/2014 4:24 PM CDT PREOPERATIVE DIAGNOSIS: Right colon mass. POSTOPERATIVE DIAGNOSIS: Terminal ileal carcinoid tumor. PROCEDURE PERFORMED: Laparoscopic right colectomy. SURGEON: Jerry Nieves MD LOT TECHNICIAN: CA DUNLAP MD [facility] Colorectal Surgery Fellow ESTIMATED BLOOD LOSS: [...] proximally and distally, we then performed a fpor-sw-ekxj functional end-to-end anastomosis with the bowel in continuity. This was done by placing antimesenteric Allis clamps and creating antimesenteric enterotomies at our points of planned transection. A blue load ZACHERY 80 mm stapler was then fashioned within the bowel. The stapler was closed and fired after the bowel was lined up in an ekrtsjkwxiavlh-bs-saziyvwwokizjp fashion. This created our eyzj-fa-ebcs anastomosis. The common enterotomy was closed with [...] EM#[id number] Name: SHAHNAZ PHELPS MRN: [id number] Account: [id number] : 1945 Procedure Date: 07/31/2014 Document: [id number] cc: Liudmila Nieves MD Brief Op Note - Jerry Nieves MD - 07/31/2014 1:48 PM CDT [facility] Brief Operative Note Pre-operative diagnosis: RIGHT COLON [...] MD [facility] [phone]. ADDENDUM: PATIENT DATA Indicate Y or N: [...] Signature Platelet Count 211 150 - 450 [place] 10e9/L [facility] Specimen Anatomical Collection Method Collection Time Receive d Time (Source) Location / / Volume Laterality Blood specimen 08/03/2014 7:57 AM 014 8:00 (specimen) CDT AM CDT Jerry Nieves MD LAB - BLOOD ORDERABLES Performing Organization Address City/State/ZIP Code Phon e Number [facility] [address] [place] [address] [facility] Glucose by meter (08/03/2014 [...] GLUCOSE (ABNORMAL) Glucose (08/02/2014 7:30 AM CDT) P athologist Signature Glucose 116 (H) 70 - 99 [place] mg/dL [facility] Comment: Effective 06/05/2014, the reference range for this assay has changed to reflect new instrumentation/methodology. Specimen Anatomical Collection Method Collection Time Receive d Time (Source) Location / / Volume Laterality Blood specimen 08/02/2014 7:30 AM 014 7:44 (specimen) CDT AM CDT Jerry Nieves MD LAB - BLOOD ORDERABLES Performing Organization Address City/[facility]/ZIP Code Phon e Number [facility] [address] [place] [address] [facility] (ABNORMAL) CBC with platelets (08/02/2014 7:30 AM CDT) Analysis Performed At Patho logist Time Signature WBC 7.4 4.0 - 11.0 [place] 10e9/L [facility] RBC Count 3.75 (L) 3.8 - 5.2 [place] 10e12/L [facility] Hemoglobin 11.6 (L) 11.7 - [place] 15.7 g/dL [facility] Hematocrit 34.6 (L) 35.0 - [place] 47.0 % [facility] MCV 92 78 - 100 [facility] MCH 30.9 26.5 - [place] 33.0 pg [facility] MCHC 33.5 31.5 - [place] 36.5 g/dL [facility] RDW 13.2 10.0 - [place] 15.0 % [facility] Platelet Count 184 150 - 450 [place] 10e9/L [facility] Specimen Anatomical Collection Method Collection Time Receive d Time (Source) Location / / Volume Laterality Blood specimen 08/02/2014 7:30 AM 014 7:44 (specimen) CDT AM CDT Ca Dunlap MD LAB - BLOOD ORDERABLES Performing Organization Address City/State/ZIP Code Phon e Number [facility] [address] [place] [address] [facility] (ABNORMAL) Basic metabolic panel (08/01/2014 10:58 AM CDT) P athologist Signature Sodium 143 133 - 144 [place] mmol/L [facility] Potassium 3.4 3.4 - 5.3 [place] mmol/L [facility] Chloride 108 94 - 109 [place] mmol/L [facility] Carbon Dioxide 29 20 - 32 [place] mmol/L [facility] Anion Gap 6 6 - 17 [place] mmol/L [facility] Glucose 134 (H) 70 - 99 [place] mg/dL [facility] Comment: Effective 06/05/2014, the reference range for this assay has changed to reflect new instrumentation/methodology. Urea Nitrogen 11 7 - 30 mg/dL [facility] Comment: Effective 06/05/2014, the reference range for this assay has changed to reflect new instrumentation/methodology. Creatinine 0.70 0.52 - 1.04 mg/dL [facility] GFR Estimate 83 >60 mL/min/1.7m2 [facility] Comment: Non GFR Calc GFR Estimate If Black >90 >60 mL/min/1.7m2 F [facility] GFR Calc [facility] Calcium 8.6 8.5 - 10.1 mg/dL [facility] Comment: Effective 06/05/2014, the reference range for this assay has changed to reflect new instrumentation/methodology. Specimen Anatomical Collection Method Collection Time Receive d Time (Source) Location / / Volume Laterality Blood specimen 08/01/2014 10:58 4 (specimen) AM CDT 11:04 AM CDT Jerry Nieves MD LAB - BLOOD ORDERABLES Performing Organization Address City/State/ZIP Code Phon e Number [facility] [address] [address] [phone] [facility] (ABNORMAL) CBC with platelets differential (08/01/2014 10:58 AM CDT) [facility] gist Method Time Signature WBC 12.2 (H) 4.0 - [place] 11.0 [facility] 10e9/[facility] RBC Count 3.79 (L) 3.8 - 5.2 [place] 10e12/L [facility] Hemoglobin 11.8 11.7 - [place] 15.7 g/dL [facility] Hematocrit 35.0 35.0 - [place] 47.0 % [facility] MCV 92 78 - 100 [place] fl [facility] MCH 31.1 26.5 - [place] 33.0 pg [facility] MCHC 33.7 31.5 - [place] 36.5 g/dL [facility] RDW 13.2 10.0 - [place] 15.0 % [facility] Platelet Count 204 150 - [address] Diff Method Automated [facility] % Neutrophils 77.2 % [facility] % Lymphocytes 10.7 % [facility] % Monocytes 11.7 % [facility] % Eosinophils 0.1 % [facility] % Basophils 0.1 % [facility] % Immature 0.2 % [place] Granulocytes [facility] Absolute 9.4 (H) 1.6 - 8.3 [place] Neutrophil 10e9/L [facility] Absolute 1.3 0.8 - 5.3 [place] Lymphocytes 10e9/L [facility] Absolute 1.4 (H) 0.0 - 1.3 [place] Monocytes 10e9/L [facility] Absolute 0.0 0.0 - 0.7 [place] Eosinophils 10e9/L [facility] Absolute 0.0 0.0 - 0.2 [place] Basophils 10e9/L [facility] Specimen Anatomical Collection Method Collection Time Receive d Time (Source) Location / / Volume Laterality Blood specimen 08/01/2014 10:58 4 (specimen) AM CDT 11:04 AM CDT Jerry Nieves MD LAB - BLOOD ORDERABLES Performing Organization Address City/State/ZIP Code Phon e Number [facility] [address] [address] [phone] [facility] (ABNORMAL) Glucose by meter (08/01/2014 6:36 [...] Range Method Time Signature Color Urine Yellow [facility] Appearance Urine Clear [facility] Glucose Urine Negative NEG [place] mg/dL [facility] Bilirubin Urine Negative NEG [facility] Ketones Urine Negative NEG [place] mg/dL [facility] Specific [place] 1.010 1.003 - [place] Urine 1.035 [facility] Blood Urine Trace (A) NEG [facility] pH Urine 7.0 5.0 - [place] 7.0 pH [facility] Protein Albumin Negative NEG [place] Urine mg/dL [facility] Urobilinogen Normal 0.0 - [place] mg/dL 2.0 [facility] mg/dL [facility] Nitrite Urine Negative NEG [facility] Leukocyte Trace (A) NEG [place] Esterase Urine [facility] Source Catheterized [place] Urine [facility] RBC Urine 8 (H) 0 - 2 [place] /HPF [facility] WBC Urine 9 (H) 0 - 2 [place] /[facility] Squamous <1 0 - 1 [place] Epithelial /HPF /HPF [facility] Mucous Urine Present (A) NEG /LPF [facility] Specimen Anatomical Location Collection Method Collection Time Received Time (Source) / Laterality / Volume Urine specimen URINE SPECIMEN 07/31/2014 6:05 07/31/20 14 6:11 (specimen) COLLECTION, PM CDT PM CDT CATHETERIZED / Unknown Ca Dunlap MD LAB - URINE ORDERABLES Performing Organization Address City/State/ZIP Code Phon e Number [facility] [address] [place] [address] [facility] Creatinine (07/31/2014 4:50 PM CDT) athologist Signature Creatinine 0.67 0.52 - 1.04 [place] mg/dL [facility] GFR Estimate 87 >60 [place] mL/min/1.7m [address] LAB Comment: Non GFR Calc GFR Estimate If Black >90 >60 mL/min/1.7m2 [facility] GFR Calc [facility] LAB Specimen Anatomical Collection Method Collection Time Receive d Time (Source) Location / / Volume Laterality Blood specimen 07/31/2014 4:50 PM 014 5:04 (specimen) CDT PM CDT Jerry Nieves MD LAB - BLOOD ORDERABLES Performing Organization Address City/State/ZIP Code Phon e Number [facility] [address] [place] [address] [facility] Platelet count (07/31/2014 4:50 PM CDT) athologist Signature Platelet Count 202 150 - 450 [place] 10e9/L [facility] Specimen Anatomical Collection Method Collection Time Receive d Time (Source) Location / / Volume Laterality Blood specimen 07/31/2014 4:50 PM 014 5:04 (specimen) CDT PM CDT Jerry Nieves MD LAB - BLOOD ORDERABLES Performing Organization Address City/State/ZIP Code Phon e Number [facility] [address] [place] [address] [facility] Surgical pathology exam (07/31/2014 1:21 PM CDT) Component Value Ref Test Analysis Performed Pathologis t Range Method Time At [facility] Copath Patient Name: PEE SHAHNAZMeliton BARAJAS Report MR#: [id number] Specimen #: [id number] Collected: 07/31/2014 Received: 07/31/2014 Reported: 08/02/2014 15:45 [...] is removed and dissected for lymph nodes. ??Law Researcher sections are submitted. Cassette 1-4-tumor Cassette 5-appendix Cassette 6-distal margin Cassette 7-proximal margin Cassette 8-9-lymph nodes (Dictated by: Ramón Barrett 014 04:10 PM) MICROSCOPIC: Microscopic performed CPT Codes: A: 54850-HM4, 88335-WNI, 05161-OBP, 83625-NLE, 43251-KWW, SO H TESTING LAB LOCATION: [facility] [address] ??[phone] COLLECTION SITE: Client: [facility] Location: SHOR (S) Specimen Anatomical Collection Method Collection Time Receive d Time (Source) Location / / Volume Laterality 07/31/2014 1:21 PM 4 1:26 CDT PM CDT Jerry Nieves MD LAB - BEAKER AP Performing Organization Address City/[facility]/ZIP Code Phon e Number [facility] Chromogranin A (07/31/2014 11:40 AM CDT) P athologist Signature Chromogranin A 69 [facility] Comment: Reference range: 0 to 95 Unit: ng/mL (Note) INTERPRETIVE INFORMATION: ??Chromogranin A This assay is performed using the walkby Chrom[employer] EIA. Results obtained with different assay me thods or kits cannot be used interchangeably. Test developed and characteristics deter mined by [employer]. See Compliance Statement D : [employer]CS Performed by [employer], [address] [place] [id number] [email or web address], Yamil Brown MD, L ab. Director Specimen Anatomical Collection Method Collection Time Receive d Time (Source) Location / / Volume Laterality 07/31/2014 11:40 07/31/2014 AM CDT 12:00 PM CDT Jerry Nieves MD LAB - BLOOD ORDERABLES Performing Organization Address City/[facility]/ZIP Code Phon e Number [facility] [address] [place] [address] [facility] ABO/Rh type and screen (07/31/2014 11:40 AM CDT) Patholo gist Method Time Signature ABO AB [facility] RH(D) Pos [facility] Antibody Neg [place] Screen [facility] Test Valid [facility] Only At [facility] LAB Specimen 08/03/2014 [place] Expires [facility] Specimen Anatomical Collection Method Collection Time Receive d Time (Source) Location / / Volume Laterality 07/31/2014 11:40 07/31/2014 AM CDT 12:00 PM CDT Jerry Nieves MD LAB - BLOOD BANK TEST ORDER Performing Organization Address City/State/ZIP Code Phon e Number [facility] [address] [address] [facility] (ABNORMAL) Potassium (07/31/2014 10:00 AM CDT) athologist Signature Potassium 3.3 (L) 3.4 - 5.3 [place] mmol/L [facility] Specimen Anatomical Collection Method Collection Time Receive d Time (Source) Location / / Volume Laterality Blood specimen 07/31/2014 10:00 4 (specimen) AM CDT 10:01 AM CDT Brendan Pérez MD LAB - BLOOD ORDERABLES Performing Organization Address City/State/ZIP Code Phon e Number [facility] [address] [address] [facility] Creatinine (07/31/2014 10:00 AM CDT) athologist Signature Creatinine 0.80 0.52 - 1.04 [place] mg/dL [facility] GFR Estimate 71 >60 [place] mL/min/1.7m [address] LAB Comment: Non GFR Calc GFR Estimate If Black 86 >60 mL/min/1.7m2 F [facility] Comment: GFR Calc Specimen Anatomical Collection Method Collection Time Receive d Time (Source) Location / / Volume Laterality Blood specimen 07/31/2014 10:00 4 (specimen) AM CDT 10:01 AM CDT Authorizing Provider Result Spencer Pérez MD LAB - BLOOD ORDERABLES Performing Organization Address City/State/ZIP Code Phon e Number [facility] [address] [phone] [facility] documented in this encounter Visit Diagnoses Not on filedocumented in this encounter Administered Medications Inactive Administered Medications - up to 3 most recent administrations Medication Order MAR Action Action Date Dose Rate Site bupivacaine 0.25 % - Given 07/31/2014 1:30 PM 30 mLs Operative EPINEPHrine 1:200,000 CDT Sit e/Surgical Site injection PRN, Starting on Tue07/31/14 at 1330, Intra-procedure skin closure adhesive Given 07/31/2014 1:55 PM 1 applicator Operative (DERMABOND PEN) CDT Site/Surgical S ite PRN, Starting on Tue07/31/14 at 1324, Intra-procedure Given 07/31/2014 1:24 PM CDT 2 applicators Oper ative Site/Surgical Site sodium chloride 0.9% (bag) Given 07/31/2014 11:50 AM 1,000 mLs Operative irrigation CDT Site/Surgical S ite PRN, Starting on Tue07/31/14 at 1150, Intra-procedure sodium chloride 0.9% Given 07/31/2014 11:50 AM 1,000 mLs Operative (bottle) irrigation CDT Site/Surgical S ite PRN, Starting on Tue07/31/14 at 1150, Intra-procedure documented in this encounter Active and Recently Administered Medications Times are shown in CDT. Scheduled Medication Order 08/02/2014 08/03/2014 08/04/2014 amLODIPine (NORVASC) tablet 7.5 mg (CANCELED) 0818 (Gi marialuisa - Provider: Mehreen Dowell RN) 0924 (Given - Provider: Mehreen Dowell RN) 0834 (G iven - Provider: Mehreen Dowell RN) 7.5 mg, Oral, DAILY, First dose on Lizzette 08/01/14 at 0900 enoxaparin (LOVENOX) injection 40 mg 0818 (Given - Pro vider: Mehreen Dowell RN) 0926 (Given - Provider: Mehreen Dowell RN) 0834 [...] dose on Tue07/31/14 at 1600 HYDROmorphone (DILAUDID) BOTTOM FINISHER 1 mg/mL (CANCELED) 0200 ( Canceled Entry - Provider: Renetta Thompson RN)0509 (Shift Total - Provider: Renetta Thompson RN) BOTTOM FINISHER dose (mg): 0.1, Max BOTTOM FINISHER dose (mg): 0 .2, Lockout Interval (min): 10 minutes, BOTTOM FINISHER Continuous Rate (mg/hr): CONTINUOUS RATE IS NOT [...] America Ibanez) 0554 (Given - Provider: Wolf Hernádnez RN)1148 (Given - Provider: Mehreen Dowell, BETO)1745 (Given - Provider: Carlyn Pederson, BETO)2320 (Given - Provider: Domonique Nielsen, BETO) 0626 (Given - Provider: Domonique Nielsen, BETO) 15 mg, Intravenous, EVERY 6 HOURS, First [...] parameters not met)2320 (Given - Provider: Domonique Nielsen RN) 0626 (Given - Provider: Domonique Nielsen RN) 3 mL, Intravenous, EVERY 8 HOURS, First dose on Tue07/31/14 at 2200, to lock peripheral IV dormant line. Also Ordered Q1H PRN, Post-procedure Continuous Medication Order 08/02/2014 08/03/2014 08/04/2014 dextrose 5 % and 0.45 % NaCl + KCl 20 mEq/L (CANCELED) 0000 (Rate/Dose Verify - Provider: Renetta Thompson RN)0422 (New Bag - Provider: Renetta Thompson RN)0819 (Rate/Dose Change - Provider: Mehreen Dowell RN) at 50 mL/hr, Intravenous, CONTINUOUS, Ch blanca to saline lock when well tolerated., Post-procedure, Starting Tue07/31/14 at 1600, Until Tue08/02/14 at 1119 PRN Medication Order 08/02/2014 08/03/2014 08/04/2014 oxyCODONE-acetaminophen (PERCOCET) 5-325 MG per tablet 1-2 tablet 1436 (Given - Provider: Mehreen Dowell RN)1834 (Given - Provider: America Ibanez)2224 (Given - Provider: America Ibanez) 1-2 tablet, Oral, EVERY 4 HOURS PRN, mod erate to severe pain, Starting Tue08/02/14 at 1119, Hold while on BOTTOM FINISHER or with regular IV opioid dosing. Please give with food Maximum acetaminophen dose from all sources= 75 mg/kg/day not to exceed 4 grams, Post-procedure phenol-menthol (CEPASTAT) lozenge 1-2 lozenge (CANCELED) 1153 (Given - Provider: Mehreen Dowell RN) 1-2 lozenge, Buccal, EVERY 1 HOUR PRN, [...] Post-procedure documented in this encounter Care Teams Agricultural Systems Specialist Relationship Specialty Start Date End Date Liudmila David MD PCP - General Family Practice 02/12/14 1 12/06/19 documented as of this encounter
--- OUTSIDE RECORDS SUMMARY | 2022-08-18 09:31 | XMS_ITS | Encounter Summary ---
:1945 Author Organization [facility] Address [address] [place] [id number] Care Team Providers Name Role Phone Liudmila David MD Primary Care Provider Unavailable Reason for Visit Reason Comments Clinic Care Coordination - Initial Encounter Details Date Type Department Care Team Description 08/06/2014 Care Coordination [facility] Liumdila David Care Physicians MD En Coordination - [address] [place] [address] Initial [address] [place] [address] Social History Tobacco Use Types Packs/Day Years Used Date Smoking Tobacco: Former Cigarettes 0.5 Quit : 11/07/1995 Smokeless Tobacco: Never Alcohol Use Standard Drinks/Week Comments Yes 0 (1 standard drink = 0.6 oz pure alcoho l) rare - wine once in a while Sex Assigned at Date Recorded Female 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 Introduced self as Soybean Specialties Cook and explained Care Coordination role and the concept of [facility]. Identity verified. PCP: Liudmila David Referral Source: ED/IP List Utilization: ED visits in last year: 1 Health Maintenance Reviewed: No Current Medical Health Concerns: S/P colectomy for colon mass Patient/Caregiver Understanding: Pt is feeling well. Pain is controlled with Ibuprofen, she hasn't had to take Percocet. She is not having any issues with Lovenox injections. Medication Management: Patient has understanding of regimen and is adherent: Yes Functional Status: Independent with all ADL/IADL's. is home to help. Current Behavioral Health Concerns: None Psychosocial: Other: none Plan: Advised follow up appt with PCP, pt declines at this time. She is scheduled to see the surgeon next week. documented in this encounter Plan of Treatment Not on filedocumented as of this encounter Visit Diagnoses Not on filedocumented in this encounter Care Teams Petroleum Products Sales Representative Relationship Specialty Start Date End Date Liudmila David MD PCP - General Family Practice 02/12/14 1 12/06/19 documented as of this encounter
--- OUTSIDE RECORDS SUMMARY | 2022-08-18 09:31 | XMS_ITS | Encounter Summary ---
:1945 Author Organization [facility] Address [address] [place] [id number] Care Team Providers Name Role Phone Liudmila David MD Primary Care Provider Unavailable Reason for Visit Reason Onset Date Comments Medication Request 03/18/2014 Encounter Details Date Type Department Care Team Description 03/18/2014 Telephone [facility] Liudmila David, [facility] ication Request Physicians [address] [place] [address] [address] [place] [address] Social History Tobacco Use Types Packs/Day Years Used Date Smoking Tobacco: Former Cigarettes Quit : 11/07/1995 Smokeless Tobacco: Never Alcohol Use Standard Drinks/Week Comments Yes 0 (1 standard drink = 0.6 oz pure alcoho l) rare Sex Assigned at Date Recorded 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 Telephone Encounter - Liudmila David MD - 03/18/2014 6:19 PM CDT The triamcinolone cream may be a bit too strong As an alternative, I would ask the patient to call her immigration inspector who did the biopsy, and see what she recommends for a rash associated with the adhesive bandage. They may have samples at the officeshe could use Telephone Encounter - Heather Koenig - 03/18/2014 4:30 PM CDT The hydrocortisone 0.2% cream is too expensive and the pt is wondering if she can try triamcinolone 0.1% cream. If this is ok please fax new rx. Pharmacy is in. documented in this encounter Plan of Treatment Not on filedocumented as of this encounter Visit Diagnoses Not on filedocumented in this encounter Care Teams Fruit Harvest Worker Relationship Specialty Start Date End Date Liudmila David MD PCP - General Family Practice 02/12/14 1 12/06/19 documented as of this encounter
--- OUTSIDE RECORDS SUMMARY | 2022-08-18 09:31 | XMS_ITS | Encounter Summary ---
:1945 Author Organization [facility] Address [address] [place] [address]. [place] [address] Care Team Providers Name Role Phone Liudmila David MD Primary Care Provider Unavailable Reason for Visit Auth/Cert - Closed Specialty Diagnoses / Procedures Referred By Contact Refer red To Contact Surgery Diagnoses RIGHT COLON MASS Sh Periop Services Procedures LAPAROSCOPIC ASSISTED COLECTOMY [address] [place] [phone] Phone: Referral ID Status Reason Start Date Expiration Date Visits Requ ested Visits Authorized [id number] Closed 1 1 Encounter Details Date Type Department Care Team Description 07/31/2014 Anesthesia Event [facility] Hellen Stahl MD [facility] [address] [place] [id number] [facility] Debby Gaines, DOUGHNUT MACHINE OPERATOR HELPER AIR GRINDER [address] [place] [address] [id number] [place] [address] Anesthesia Record Procedure Summary Procedure Name Responsible Anesthesia Start Anesthesia Stop Time Anesthesiologist Time LAPAROSCOPIC-ASSIST Hellen Stahl MD 07/31/14 1118 07/31/14 1411 ED RIGHT COLECTOMY (Right: Abdomen) Events Date Time Event Comment 07/31/2014 1032 1118 An Start 1121 An Start Data 1125 An Induction 1126 AN START SEVO 1127 An Intubation 1150 Quick Note OR staff in [facility] ement with procedure site and procedure to be performed. 1151 AN INCISION 1310 Quick Note Dampened Arteria l waveform, attempting to tape hand in place so an accu rate reading is obtained. 1343 AN END SEVO 1348 An Emergence 1352 MD Present 1402 MD Present 1405 AN Extubation 1406 an stop data 1411 An Stop Electronically s igned by Lupe Eng on July 31, 2014 2:11 PM Name Total dexamethasone 4mg/mL 8 mg fentanyl 50mcg/mL 350 mcg glycopyrrolate 0.2mg/mL 0.7 mg lidocaine 2% 40 mg midazolam 1mg/mL 2 mg neostigmine 1mg/mL 4.5 mg phenylephrine 0.1mg/mL 300 mcg ondansetron 2mg/mL 4 mg propofol 10mg/mL 230 mg propofol infusion (mcg/kg/min) 1,238.06 mg rocuronium 10mg/mL 50 mg cisatracurium 2mg/mL 2 mg heparin sodium PF injection 5,000 Units 5,000 Units metroNIDAZOLE (FLAGYL) IVPB 500 mg 500 mg ciprofloxacin (CIPRO) IVPB 400 mg 400 mg lactated ringers infusion 2,400 mL Agents Name O2 Air Exp Sevoflurane Exp Desflurane Ins Sevoflurane Ins Desflurane Blood No blood administrations on file. Lines, Drains, and Airways Type Details Placement Removal Peripheral IV 07/03/12; 0916; 22 G; 07/03/12 0916 by Right; Median cubital EliseoTeresa, vein (antecubital RN fossa); Chlorhexidine; Tolerated well; iv sedation Incision/Surgical Site 07/31/14; 1335; 07/31/14 1335 by Abdomen Marge Gonzalez RN Peripheral IV 07/31/14; 1018; 18 G; 07/31/14 1018 by 08/02/14 1714 by Left; Hand; Celi Graf RN Hendricks, N icole M Chlorhexidine; Injectable; Tolerated well Arterial Line 07/31/14; 1030; 07/31/14 1030 by 07/31/14 1425 b y 07/31/14; 1425; No Hellen Stahl MD Kroos, Cy nthia J, RN longer indicated Gastric Tube 07/31/14; 1130; 18 fr; 07/31/14 1130 by 07/31/14 1330 by appearance of fluid Afshan Lorenzo, Alisha Finnegan RN consistent with GI DOUGHNUT MACHINE OPERATOR HELPER AIR GRINDER contents Urethral Catheter 07/31/14; 1139; No; 07/31/14 1139 by 08/02/14 0000 by /GI/SKY CAP Pelvic Ofelia Lawrence RN Emberley, K athleen Procedure M, RN documented in this encounter Social History Tobacco Use Types Packs/Day Years Used Date Smoking Tobacco: Former Cigarettes 0.5 Quit : 11/07/1995 Smokeless Tobacco: Never Alcohol Use Standard Drinks/Week Comments Yes 0 (1 standard drink = 0.6 oz pure alcoho l) rare - wine once in a while Sex Assigned at Date Recorded Female 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 Post Op Diagnosis Additional Comments:No value filed. Patient Condition Respiratory Function (RR / SpO2 / Airway Patency): Satisfactory Cardiac Function (HR / Rhythm / BP): Satisfactory Mental Status: Satisfactory Temperature: Satisfactory Pain Control: Satisfactory PONV: None Beta-Cisco Therapy: None indicated Hydration Status: Satisfactory Last Vitals: Filed Vitals: 07/31/14 1415 07/31/14 1430 07/31/14 1445 BP: 142/72 144/65 145/63 Pulse: Temp: Resp: 13 8 11 SpO2: 97% 97% 98% Additional Comments: Anesthesia Procedure Notes - Hellen Stahl MD - 07/31/2014 10:32 AM CDT Associated Order(s): ANE A LINE CATHETER PLACEMENT Pre-Procedure Performed by Hellen Stahl Location: pre-op. PreAnesthestic Checklist: patient identified, IV checked, risks and benefits discussed and informed consent Timeout Correct Patient: Yes Correct Procedure: arterial line Correct Site: Yes Correct Laterality: N/A Correct Position: Yes Site Marked: N/A Procedure Documentation ASA: Insertion Site: right and radial Injection technique: Seldinger Technique Seldinger Technique : Position: supine Prep: chlorhexidine gluconate and isopropyl alcohol, patient draped, mask, sterile gloves, hand hygiene and hat Local skin infiltrated with mL of 1% lidocaine. Assessment/Narrative Arterial waveform: Yes Comments: Arterial Line No complications Anesthesia Preprocedure Evaluation - Hellen Stahl MD - 07/31/2014 10:30 AM CDT Anesthesia Evaluation . Pt has had prior anesthetic. History of anesthetic complications PONV ROS/MED HX ENT/Pulmonary: (-) sleep apnea Neurologic: Cardiovascular: (+) hypertension . : . . . :. . 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 Plan for General and ETT - with Intravenous induction.Maintenance will be Balanced. Routine analgesia and antiemetics to be used for post-operative care. Anesthetic plan, risks, benefits and alternatives discussed with: patient or strategic partnership representative. Equipment:Arterial Line and Videolaryngoscope Propofol gtt Decadron zofran Scop patch History & Physical Review History and physical reviewed; no interval change. . documented in this encounter Miscellaneous Notes Anesthesia Care Transfer Note - Lupe Eng APRN CRNA - 07/31/2014 2:11 PM CDT Anesthesia Care Transfer Note Patient: Shahnaz Phelps Transferred to: PACU Patient vital signs: stable Airway: none documented in this encounter Plan of Treatment Not on filedocumented as of this encounter Procedures Procedure Name Priority Date/Time Associated Diagnosis Comme nts ANE A LINE CATHETER Routine 07/31/2014 10:33 AM R esults for this PLACEMENT CDT procedure are i n the results section. documented in this encounter Results A Line Catheter Placement (07/31/2014 10:33 AM CDT) Narrative Hellen Stahl MD - 07/31/2014 10:33 A M CDT Hellen Stahl MD ? 07/31/2014 10:33 AM Pre-Procedure Performed by Hellen Stahl Location: pre-op. ?? PreAnesthestic Checklist: patient identi fied, IV checked, risks and benefits discussed and informed cons ent Timeout Correct Patient: Yes Correct Procedure: arterial line Correct Site: Yes Correct Laterality: N/ A Correct Position: Yes Site Marked: N/A Procedure Documentation ASA: Insertion Site: right and radial Injecti on technique: Seldinger Technique Seldinger Technique : Position: supine Prep: chlorhexidine gluconate and isopro pyl alcohol, patient draped, mask, sterile gloves, hand hygie ne and hat Local skin infiltrated with mL of 1% lid ocaine. Assessment/Narrative Arterial waveform: Yes Comments: Arterial Line No complications Hellen Stahl MD ND ANESTHESIA documented in this encounter Visit Diagnoses Not on filedocumented in this encounter Administered Medications Inactive Administered Medications - up to 3 most recent administrations Medication Order MAR Action Action Date Dose Rate Site ciprofloxacin (CIPRO) IVPB 400 mg Given 07/31/2014 11:38 AM CDT 400 mg Routine, 400 mg, Intravenous, PRE-OP/PRE-PROCEDURE, Starting on Tue07/31/14 at 1032, For 1 dose, Give within one hour of procedure, Indications: Perioperative Pharmacoprophylaxis, Pre-procedure cisatracurium (NIMBEX) injection Given 07/31/2014 12:35 PM CDT 2 mg PRN, Starting on Tue07/31/14 at 1235, Anesthesia Intra-op dexamethasone (DECADRON) injection Given 07/31/2014 11:33 AM CDT 8 mg PRN, Administer over 1-4 Minutes, Starting on Tue07/31/14 at 1133, Anesthesia Intra-op fentaNYL (SUBLIMAZE) injection Given 07/31/2014 12:05 PM CDT 100 mcg PRN, moderate to severe pain, Starting on Tue07/31/14 at 1125, Anesthesia Intra-op Given 07/31/2014 11:57 AM CDT 50 mcg Given 07/31/2014 11:53 AM CDT 100 mcg glycopyrrolate (ROBINUL) injection Given 07/31/2014 1:35 PM CDT 0.7 mg PRN, Starting on Tue07/31/14 at 1335, Anesthesia Intra-op heparin sodium PF injection 5,000 Units Given 07/31/2014 11:30 AM CDT 5,000 Units 5,000 Units, Subcutaneous, PRE-OP/PRE-PROCEDURE, Starting on Tue07/31/14 at 0953, For 1 dose, Verify order with Stone Cutter MD prior to Administering., Pre-procedure lactated ringers infusion New Bag 07/31/2014 1:12 PM CDT at 75-100 mL/hr, Intravenous, CONTINUOUS, UNLESS otherwise indicated., Pre-procedure, Starting on Tue07/31/14 at 1000, Until Tue07/31/14 at 1409 New Bag 07/31/2014 11:40 AM CDT New Bag 07/31/2014 10:38 AM CDT 1,000 mLs 75 mL/hr lidocaine injection 2% (MDV) Given 07/31/2014 11:25 AM CDT 40 mg PRN, Starting on Tue07/31/14 at 1125, Anesthesia Intra-op metroNIDAZOLE (FLAGYL) IVPB 500 mg Given 07/31/2014 11:18 AM CDT 500 mg Routine, 500 mg, Intravenous, PRE-OP/PRE-PROCEDURE, Starting on Tue07/31/14 at 1032, For 1 dose, Give within one hour of procedure., Indications: Perioperative Pharmacoprophylaxis, Pre-procedure midazolam (VERSED) injection Given 07/31/2014 11:16 AM CDT 2 mg PRN, anxiety, Starting on Tue07/31/14 at 1116, Anesthesia Intra-op neostigmine (PROSTIGMINE) injection Given 07/31/2014 1:34 PM CDT 4.5 mg Intravenous, PRN, Starting on Tue07/31/14 at 1334, Anesthesia Intra-op ondansetron (ZOFRAN) injection Given 07/31/2014 1:28 PM CDT 4 mg PRN, nausea, vomiting, Administer over 2-5 Minutes, Starting on Tue07/31/14 at 1328, Anesthesia Intra-op phenylephrine injection Given 07/31/2014 12:57 PM CDT 100 mcg PRN, Starting on Tue07/31/14 at 1143, Anesthesia Intra-op Given 07/31/2014 11:51 AM CDT 100 mcg Given 07/31/2014 11:43 AM CDT 100 mcg propofol (DIPRIVAN) infusion Rate/Dose 07/31/2014 1:28 25 mcg/kg/min 13.6 mL/hr Intravenous, CONTINUOUS PRN, Change PM CDT Starting on Tue07/31/14 at 1129, Anesthesia Intra-op Rate/Dose Change 07/31/2014 1:04 PM CDT 50 mcg/kg/min 27.2 mL/hr Rate/Dose Change 07/31/2014 12:57 PM CDT 75 mcg/kg/min 40.8 mL/hr propofol (DIPRIVAN) injection 10 mg/mL v ial Given 07/31/2014 1:52 PM CDT 30 mg PRN, Starting on Tue07/31/14 at 1125, Anesthesia Intra-op Given 07/31/2014 11:25 AM CDT 200 mg rocuronium (ZEMURON) injection Given 07/31/2014 11:25 AM CDT 50 mg PRN, Starting on Tue07/31/14 at 1125, Anesthesia Intra-op documented in this encounter Care Teams Ramp Supervisor Relationship Specialty Start Date End Date Liudmila David MD PCP - General Family Practice 02/12/14 1 12/06/19 documented as of this encounter
--- OUTSIDE RECORDS SUMMARY | 2022-08-18 09:31 | XMS_ITS | Encounter Summary ---
:1945 Author Organization [facility] Address [address] [place] [address] Care Team Providers Name Role Phone Liudmila David MD Primary Care Provider Unavailable Reason for Visit Reason Comments Physical Encounter Details Date Type Department Care Team Description 02/27/2015 Office Visit [facility] Liudmila David gynecological examination (Primary Dx); Prateek Gatica MD Essential hypertension, mark gn; [address] Need for vaccination against Streptococcus pneumoniae [address] [place] [address] Social History Tobacco Use Types Packs/Day Years Used Date Smoking Tobacco: Former Cigarettes 0.5 Quit : 11/07/1995 Smokeless Tobacco: Never Alcohol Use Standard Drinks/Week Comments Yes 0 (1 standard drink = 0.6 oz pure alcoho l) rare - wine once in a while Sex Assigned at Date Recorded Female 10/17/2018 7:14 PM CABLE FORMER documented as of this encounter Last Filed Vital Signs Vital Sign Reading Time Taken Comments Blood Pressure 128/68 02/27/2015 10:40 AM CDT Pulse 72 02/27/2015 10:40 AM CDT Temperature - - Respiratory Rate - - Oxygen Saturation - - Inhaled Oxygen Concentration - - Weight 99.1 kg (218 lb 6.4 oz) 02/27/2015 10:40 AM CDT Height 170.2 cm (5' 7) 02/27/2015 10:40 AM CDT Body Mass Index 34.21 02/27/2015 10:40 AM CDT documented in this encounter Progress Notes Liudmila David MD - 02/27/2015 11:03 AM CDT SUBJECTIVE: Shahnaz Phelps is an 69 year old postmenopausal woman who presents for annual exercise physiologist exam. Menopause at age 49. No bleeding, spotting, or discharge noted. Estrogen replacement therapy: none currently, has taken in past (Prempro, [place] in 2002/ after 5-7 Years) SAMANTA exposure: no History of abnormal Pap smear: No Family history of uterine or ovarian cancer: Yes - mother age 90 Family history of colon cancer: father, brother Regular self breast exam: Yes History of abnormal mammogram: No Family history of breast cancer: No History of abnormal lipids: No Patient Active Problem List Diagnosis ??? PERS HX COLONIC POLYPS ??? ACNE NEC ??? DIVERTICULOSIS OF COLON W/O BLEED ??? OSTEOARTHROS NOS-UNSPEC ??? 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 OBESITY NOS ??? Essential Hypertension, Benign ??? Advanced care planning/counselling discussion ??? Calculus of kidney ??? Health [facility] ??? Carcinoid tumor Past Surgical History Procedure Laterality Date [...] Surgeon: Jerry Lane MD; Location: [facility] OR Family History Problem Relation Age of Onset ??? Cancer Brother colon ??? Cancer - Colorectal Mother ??? Cancer - Colorectal Father ??? Cancer Mother 91 endometrial Current Outpatient Prescriptions Medication ??? amLODIPine (NORVASC) 2.5 MG tablet ??? hydrochlorothiazide (HYDRODIURIL) 25 MG tablet ??? Multiple Vitamins-Minerals (MULTIVITAMIN OR) ??? Calcium Citrate-Vitamin D (CITRACAL + D PO) No current facility-administered medications for this visit. Review Of Systems Skin: saw Dr Hopper last week- HX of basal cell/ squamous Eyes: negative Ears/Nose/Throat: negative Respiratory: No shortness of breath, dyspnea on exertion, cough, or hemoptysis Cardiovascular: negative Gastrointestinal: RIGHT colectomy last July; concerned about a hernia Genitourinary: negative Musculoskeletal: negative Neurologic: negative Psychiatric: negative Hematologic/Lymphatic/Immunologic: negative Endocrine: negative OBJECTIVE: BP 128/68 Pulse 72 Ht 1.702 m (5' 7) Wt 99.066 kg (218 lb 6.4 oz) BMI 34.20 kg/m2 General appearance: Healthy Skin: Normal. No atypical appearing moles on inspection of trunk and extremities. External ears and canals clear bilaterally. TM's normal bilaterally. Nose normal without lesions or discharge. Oropharynx normal. Neck supple without palpable adenopathy. Breasts are symmetric. No dominant, discrete, fixed or suspicious masses are noted. No skin or nipple changes or axillary nodes. . Regular rate and rhythm. S1 and S2 normal, no murmurs, clicks, gallops or rubs. No edema or JVD. Chest is clear; no wheezes or rales. The abdomen is soft without tenderness, guarding, mass or organomegaly. Bowel sounds are normal. No CVA tenderness or inguinal adenopathy noted. Pelvic: atrophic vaginitis No palpable uterine or adnexal masses or tenderness. Pap deferred Rectal exam: deferred Extremities: negative. Assessment (V72.31) Routine gynecological examination (primary encounter diagnosis) Comment: Plan: CL AFF HEMOGRAM/PLATE/DIFF (B[facility]), Hemoglobin A1c (BFP), Hepatits C antibody ([facility]), VENOUS COLLECTION (401.1) Essential hypertension, benign Comment: controlled Plan: amLODIPine (NORVASC) 2.5 MG tablet, hydrochlorothiazide (HYDRODIURIL) 25 MG tablet, POTASSIUM ([facility]), VENOUS COLLECTION (V03.82) Need for vaccination against Streptococcus pneumoniae Comment: Plan: PNEUMOCOCCAL CONJ VACCINE 13 VALENT IM (PREVNAR), VACCINE ADMINISTRATION, INITIAL Health Care Maintenance Normal DEXA 2012 Mammogram is up to date Colonoscopy: up to date/ q three years documented in this encounter Nursing Notes July Keenan - 02/27/2015 10:44 AM CDT Shahnaz is here today for a fasting phy. Pre-visit planning discussed: Immunizations - up to date Mammogram - up to date Colonoscopy - up to date Asthma - na PHQ9/JAY - na Fall Risk - today Questioned patient about current smoking habits. Pt. quit smoking some time ago. Body mass index is 34.2 kg/(m^2). BP Cuff right Arm lrg Cuff PULSE regular My Chart: accepts ETOH screening: Questions: 1-How often do you have a drink containing alcohol? 1 times per week(s) 2-How many drinks containing alcohol do you have on a typical day when you are Drinking? 1 and 2 3- How often do you have 5 or more drinks on one occasion? 0 per years Have you ever: @None of the patient's responses to the CAGE screening were positive / Negative CAGE score@ documented in this encounter Plan of Treatment Not on filedocumented as of this encounter Procedures Procedure Name Priority Date/Time Associated Diagnosis Comme nts HC VENOUS Routine 03/08/2015 10:57 Routine Gynecological COLLECTION PM CDT Examination Essential Hypertension, Benign HEMOGLOBIN A1C Routine 02/27/2015 11:48 Routine gynecological Results for this AM CDT examination procedure are i n the results section. CL AFF Routine 02/27/2015 11:45 Routine gynecological Re sults for this HEMOGRAM/PLATE/DIFF AM CDT examination procedur e are in the results section. POTASSIUM Routine 02/27/2015 11:43 Essential Results for this AM CDT hypertension, benign procedu re are in the results section. HEPATITIS C Routine 02/27/2015 11:43 Routine gynecological Re sults for this ANTIBODY AM CDT examination procedure are i n the results section. documented in this encounter Results Hemoglobin A1c (BFP) (02/27/2015 11:48 AM CDT) P athologist Signature Hemoglobin A1C 5.6 4.3 - 6.0 % [facility] INTERNAL Specimen (Source) Anatomical Collection Method Collection Time Re ceived Time Location / / Volume Laterality Blood specimen 02/27/2015 11:48 (specimen) AM CDT Liudmila David MD LAB - BLOOD ORDERABLES Performing Organization Address City/State/ZIP Code Phon e Number [facility] INTERNAL CL AFF HEMOGRAM/PLATE/DIFF (BFP) (02/27/2015 11:45 AM CDT) P athologist Signature WBC 7.1 4.0 - 11 [facility] INTERNAL 10*9/L RBC Count 4.39 3.8 - 5.2 [facility] INTERNAL 10*12/L Hemoglobin 13.9 11.7 - 15.7 [facility] INTERNAL g/dL Hematocrit 41.9 35.0 - 47.0 [facility] INTERNAL % MCV 95.5 78 - 100 fL [facility] INTERNAL MCH 31.7 26 - 33 pg [facility] INTERNAL MCHC 33.2 31 - 36 [facility] INTERNAL g/dL Platelet Count 318 150 - 375 [facility] INTERNAL 10^9/L % Granulocytes 60.0 % [facility] INTERNAL % Lymphocytes 28.8 % [facility] INTERNAL % Monocytes 11.2 % [facility] INTERNAL Specimen (Source) Anatomical Collection Method Collection Time Re ceived Time Location / / Volume Laterality 02/27/2015 11:45 AM CDT Liudmila David MD LABORATORY Performing Organization Address City/State/ZIP Code Phon e Number [facility] INTERNAL POTASSIUM ([facility]) (02/27/2015 11:43 AM CDT) P athologist Signature Potassium 3.9 3.5 - 5.3 [facility] mmol/L [facility] Specimen Anatomical Collection Method Collection Time Receive d Time (Source) Location / / Volume Laterality Blood specimen 02/27/2015 11:43 5 3:40 (specimen) AM CDT AM CDT Resulting Agency Comment Performing Organization Information: ? CB ? [facility] ? [address] [place], [place] [address] ? Juanito Hardy M.D. Liudmila David MD LAB - BLOOD ORDERABLES Performing Organization Address City/State/ZIP Code Phon e Number [facility] [address] [facility] [place] [place] [address] [facility] [address] [facility], [place] [address] Hepatits C antibody ([facility]) (02/27/2015 11:43 AM CDT) Analysis Performed At Patho logist Time Signature HCV Antibody NON-REACTI NON-REACTI [facility] SIGNAL TO CUT 0.01 <1.00 [facility] - [facility] Specimen Anatomical Collection Method Collection Time Receive d Time (Source) Location / / Volume Laterality Blood specimen 02/27/2015 11:43 5 3:40 (specimen) AM CDT AM CDT Resulting Agency Comment Performing Organization Information: ? CB ? [facility] ? [address] [place], [place] [address] ? Juanito Hardy M.D. Liudmila David MD LAB - BLOOD ORDERABLES Performing Organization Address City/State/ZIP Code Phon e Number [facility] [address] [facility] [place] [address] [facility] [address] [facility], [place] [address] documented in this encounter Visit Diagnoses Diagnosis Routine gynecological examination - Prim elke Essential hypertension, benign Need for vaccination against Streptococc us pneumoniae Need for prophylactic vaccination agains t streptococcus pneumoniae (pneumococcus) documented in this encounter Care Teams Line Mechanic Relationship Specialty Start Date End Date Liudmila David MD PCP - General Family Practice 02/12/14 1 12/06/19 documented as of this encounter
--- OUTSIDE RECORDS SUMMARY | 2022-08-18 09:31 | XMS_ITS | Encounter Summary ---
:1945 Author Organization [facility] Address [address] [place] [address] Care Team Providers Name Role Phone Liudmila David MD Primary Care Provider Unavailable Reason for Visit Reason Comments Consult Encounter Details Date Type Department Care Team Description 10/10/2014 Office Visit [facility] [place] Prateek Mathews MD hypertension, benign [address] , [id number] [place] [address] [phone] Social History Tobacco Use Types Packs/Day Years Used Date Smoking Tobacco: Former Cigarettes 0.5 Quit : 11/07/1995 Smokeless Tobacco: Never Alcohol Use Standard Drinks/Week Comments Yes 0 (1 standard drink = 0.6 oz pure alcoho l) rare - wine once in a while Sex Assigned at Date Recorded Female 10/17/2018 7:14 PM STEWARD/STEWARDESS SECOND documented as of this encounter Last Filed Vital Signs Vital Sign Reading Time Taken Comments Blood Pressure 122/70 10/10/2014 12:49 PM STEWARD/STEWARDESS SECOND Pulse 68 10/10/2014 12:49 PM STEWARD/STEWARDESS SECOND Temperature - - Respiratory Rate - - Oxygen Saturation - - Inhaled Oxygen Concentration - - Weight 93.4 kg (205 lb 12.8 oz) 10/10/2014 12:49 PM STEWARD/STEWARDESS SECOND Height 168.9 cm (5' 6.5) 10/10/2014 12:49 PM STEWARD/STEWARDESS SECOND Body Mass Index 32.72 10/10/2014 12:49 PM STEWARD/STEWARDESS SECOND documented in this encounter Progress Notes [place] MD - 10/10/2014 1:01 PM CST Subjective: Shahnaz Phelps is a 69 year old female with hypertension. Current Outpatient Prescriptions Medication Sig Dispense Refill [...] 630mg Sodium 10mg takes two pills qd Hypertension ROS: taking medications as instructed, no medication side effects noted, patient does not perform home BP monitoring, no TIA's, no chest pain on exertion, no dyspnea on exertion, no swelling of ankles. New concerns: none-diagnosed with carcinoid tumor 06/20 Patient Active Problem List Diagnosis ??? PERS HX COLONIC POLYPS ??? ACNE NEC ??? DIVERTICULOSIS OF COLON W/O BLEED ??? OSTEOARTHROS NOS-UNSPEC ??? 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 OBESITY NOS ??? Essential Hypertension, Benign ??? Living will, counseling/discussion ??? Calculus of kidney ??? Urge incontinence ??? [facility] ??? Carcinoid tumor Past Medical History Diagnosis Date ??? [...] Colorectal Father ??? Cancer Mother 91 endometrial History Social History ??? Marital Status: Spouse [...] ??? Drug Use: No ??? Sexual Activity: Not Currently Other Topics Concern ??? Service No ??? [...] COLECTOMY; Surgeon: Jerry Lane MD; Location: OR Current Outpatient Prescriptions on File Prior to Visit: Multiple Vitamins-Minerals (MULTIVITAMIN OR) Take 1 tablet by mouth daily Calcium Citrate-Vitamin D (CITRACAL + D PO) Take 630 mg by mouth Vit D - 500iu Calcium 630mg Sodium 10mg takes two pills qd No current facility-administered medications on file prior to visit. Allergies: Imidazole antifungals and Penicillins Immunization History Administered Date(s) Administered ??? Influenza (IIV3) 08/27/1998 ??? Pneumococcal 23 valent 02/26/2012 ??? TD (ADULT, 7+) 12/08/1990, 03/13/2001 ??? TDAP (BOOSTRIX AGES 10-64) 03/29/2011 . Objective: BP 122/70 Pulse 68 Ht 1.689 m (5' 6.5) Wt 93.35 kg (205 lb 12.8 oz) BMI 32.72 kg/m2 Appearance healthy, alert and cooperative. General exam BP noted to be well controlled today in office, S1, S2 normal, no gallop, no murmur, chest clear, no JVD, no HSM, no edema. Lab review: labs are reviewed, up to date and normal. Assessment: Hypertension well controlled, stable. Plan: current treatment plan is effective, no change in therapy, reviewed medications and side effects in detail. ARD/STEWARDESS SECOND documented in this encounter Nursing Notes Seema Fox - 10/10/2014 12:48 PM CST Pt is here for a bp consult Pre-visit planning: Colon: is up to date Breast: is up to date Immunizations: up to date Asthma: na PHQ9/JAY: na Used large BP Cuff on pts left arm. Pts Pulse was regular. Pt was offered to sign up for My Chart and pt accepts. Questioned patient about current smoking habits. Pt. Quit smoking some time ago CLASSIFICATION OF OVERWEIGHT AND OBESITY BY BMI Obesity Class BMI(kg/m2) Underweight < 18.5 Normal 18.5-24.9 Overweight 25.0-29.9 OBESITY I 30.0-34.9 II 35.0-39.9 EXTREME OBESITY III >40 Patient's BMI Body mass index is 32.72 kg/(m^2). http://hin.nhlbi.nih.gov/menuplanner/menu.cgi ARD/STEWARDESS SECOND documented in this encounter Plan of Treatment Not on filedocumented as of this encounter Visit Diagnoses Diagnosis Essential hypertension, benign documented in this encounter Care Teams Button Breaker Operator Relationship Specialty Start Date End Date Liudmila David MD PCP - General Family Practice 02/12/14 1 12/06/19 documented as of this encounter
--- OUTSIDE RECORDS SUMMARY | 2022-08-18 09:31 | XMS_ITS | Encounter Summary ---
:1945 Author Organization [facility] Address [address] [place] [address] Care Team Providers Name Role Phone Liudmila David MD Primary Care Provider Unavailable Encounter Details Date Type Department Care Team Description 02/17/2015 Orders Only [facility] Liudmila David CTING RESULTS Physicians MD En (Primary Dx) [address] [address] Social History Tobacco Use Types Packs/Day Years Used Date Smoking Tobacco: Former Cigarettes 0.5 Quit : 11/07/1995 Smokeless Tobacco: Never Alcohol Use Standard Drinks/Week Comments Yes 0 (1 standard drink = 0.6 oz pure alcoho l) rare - wine once in a while Sex Assigned at Date Recorded Female 10/17/2018 7:14 PM LOOP 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 documented in this encounter Results Mammo Screening digital (bilat) (02/17/2015) P athologist Signature MAMMOGRAM [facility] RAD Anatomical Region Laterality Modality Breast Bilateral Other Narrative 02/17/2015 [facility] * Fax: [phone] [address], [place] [address] [address] [place] [address] Age: 69 Y Work Phone: Dept No.: [id number] SHAHNAZ GLASGOW : 1945 [facility] Chart # Req. Phys: Liudmila David MD Clinic M RN: Clinic: [facility] c#: [id number] Exam: BILAT SCREEN MAMMOGRAM DIGITAL Exa m Date: 02/17/2015 SCREENING MAMMOGRAM, BILATERAL, DIGITAL w/CAD - 02/17/2015 9:41 AM. BREAST SYMPTOMS: No current breast compl aints. COMPARISON: 01/24/14, 02/10/10 BREAST DENSITY: Scattered fibroglandular densities. COMMENTS: No findings of suspicion for m alignancy. The patient has had a prior left needle biopsy. IMPRESSION: BI-RADS CATEGORY: 2 - Benign Finding(s). RECOMMENDED FOLLOW-UP: Annual Mammograph y. Exam results letter mailed to patient. Performed by: SHAN Transcribed By: MATT on: 02/17/2015 11:15 AM CDT Finalized By: MARQUISE ALEXANDER M.D. on: 11:15 AM CDT Dictated By: MARQUISE ALEXANDER M.D. Signed b y: [place] [facility] Page 1 of 1 Liudmila David MD IMG MAMMOGRAPHY ORDERABLES documented in this encounter Visit Diagnoses Diagnosis ABSTRACTING RESULTS - Primary documented in this encounter Care Teams Produce Department Supervisor Relationship Specialty Start Date End Date Liudmila David MD PCP - General Family Practice 02/12/14 1 12/06/19 documented as of this encounter
--- OUTSIDE RECORDS SUMMARY | 2022-08-18 09:31 | XMS_ITS | Encounter Summary ---
:1945 Author Organization [facility] Address [address] [place] [address]. [place] [address] Care Team Providers Name Role Phone Liudmila David MD Primary Care Provider Unavailable Reason for Visit (Routine) - Closed Specialty Diagnoses / Procedures Referred By Contact Refer red To Contact Radiology / Radiology. Diagnoses Written Order Rh Nuclear Medicine Procedures NM SCAN2 [address] [place] [address] Phone: Fax: Referral ID Status Reason Start Date Expiration Date Visits Requ ested Visits Authorized [id number] Closed 05/02/2014 05/02/2015 1 1 Encounter Details Date Type Department Care Team Description 05/20/2014 Hospital Encounter [facility] lai, Jerry Brito MD Imaging COLON RECTAL SURG [address] [facility] [place] [address] [facility] [address] [address] [address] [place], [place] [address] (Wo rk) Social History Tobacco Use Types Packs/Day Years Used Date Smoking Tobacco: Former Cigarettes Quit : 11/07/1995 Smokeless Tobacco: Never Alcohol Use Standard Drinks/Week Comments Yes 0 (1 standard drink = 0.6 oz pure alcoho l) rare Sex Assigned at Date Recorded Female 10/17/2018 7:14 PM COOK HELPER PRESERVES documented as of this encounter Medications at [...] on filedocumented in this encounter Care Teams Plan Examiner Relationship Specialty Start Date End Date Liudmila David MD PCP - General Family Practice 02/12/14 1 12/06/19 documented as of this encounter
--- OUTSIDE RECORDS SUMMARY | 2022-08-18 09:31 | XMS_ITS | Encounter Summary ---
:1945 Author Organization [facility] Address [address] [place] [address]. [place] [address] Care Team Providers Name Role Phone Liudmila David MD Primary Care Provider Unavailable Reason for Visit (Routine) - Closed Specialty Diagnoses / Procedures Referred By Contact Refer red To Contact Radiology / Radiology. Diagnoses Written Order Rh Nuclear Medicine Procedures NM WHOLE BODY OCTREOSCAN [address] [place] [address] Phone: Fax: Referral ID Status Reason Start Date Expiration Date Visits Requ ested Visits Authorized [id number] Closed 05/02/2014 05/02/2015 1 1 Encounter Details Date Type Department Care Team Description 05/21/2014 Hospital Encounter [facility], Jerry Brito MD [facility] [address] [facility] [place] [place] [address] [facility] [address] [place] [address] [address] [place], [place] [address] (Wo rk) Social History Tobacco Use Types Packs/Day Years Used Date Smoking Tobacco: Former Cigarettes Quit : 11/07/1995 Smokeless Tobacco: Never Alcohol Use Standard Drinks/Week Comments Yes 0 (1 standard drink = 0.6 oz pure alcoho l) rare Sex Assigned at Date Recorded Female 10/17/2018 7:14 PM SENIOR WINDOWS SYSTEMS ADMINISTRATOR documented as of this encounter Medications at [...] evaluation. BRENDAN VIEYRA MD Jerry Lane MD IMG NM ORDERABLES documented in this encounter Visit Diagnoses Not on filedocumented in this encounter Care Teams Deputy Brand Inspector Relationship Specialty Start Date End Date Liudmila David MD PCP - General Family Practice 02/12/14 1 12/06/19 documented as of this encounter
--- OUTSIDE RECORDS SUMMARY | 2022-08-18 09:32 | XMS_ITS | Encounter Summary ---
:1945 Author Organization [facility] Address [address] [place] [address] Care Team Providers Name Role Phone Jacquie Schmitt MD Primary Care Provider Reason for Visit Reason Comments Recheck Medication Encounter Details Date Type Department Care Team Description 09/13/2013 Office Visit [facility] Liudmila David hypertension, benign (Primary Dx); Prateek Gatica MD Other abnormal glucose; [address] Calculus of kidney [address] [place] [address] Social History Tobacco Use Types Packs/Day Years Used Date Smoking Tobacco: Former Cigarettes Quit : 11/07/1995 Smokeless Tobacco: Never Alcohol Use Standard Drinks/Week Comments Yes 0 (1 standard drink = 0.6 oz pure alcoho l) rare Sex Assigned at Date Recorded Female 10/17/2018 7:14 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 documented as of this encounter Last Filed Vital Signs Vital Sign Reading Time Taken Comments Blood Pressure 142/80 09/13/2013 4:15 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 Pulse 70 09/13/2013 4:15 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 Temperature 36.6 ??C (97.9 ??F) 09/13/2013 4:15 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 Respiratory Rate - - Oxygen Saturation - - Inhaled Oxygen Concentration - - Weight 99.5 kg (219 lb 6.4 oz) 09/13/2013 4:15 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 Height 168.9 cm (5' 6.5) 09/13/2013 4:15 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 Body Mass Index 34.88 09/13/2013 4:15 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 documented in this encounter Progress Notes Liudmila David MD - 09/13/2013 4:33 PM CST Subjective: Shahnaz Phelps is a 68 year old female with hypertension/ HCTZ was increased to 25 mg daily byher urologist because of her history of kidney stones. Current Outpatient Prescriptions Medication Status Sig ??? amLODIPine (NORVASC) 5 MG tablet Active Take 1 tablet by mouth daily. ??? hydrochlorothiazide (HYDRODIURIL) 25 MG tablet Active Take 1 tablet by mouth daily. ??? Calcium Citrate-Vitamin D (CITRACAL + D PO) Active Take by mouth. Vit D - 500iu Calcium 630mg Sodium 10mg takes two pills qd ??? ONE-A-DAY WOMENS 50 PLUS PO TABS Active 1 TABLET DAILY ??? METRONIDAZOLE 1 % EX GEL Active None Entered Hypertension ROS: taking medications as instructed, no medication side effects noted, no TIA's, no chest pain on exertion, no dyspnea on exertion, no swelling of ankles. New concerns: sees Dr Jackson for kidney stones/ Just seen the end of July Lithotripsy Takes HCTZ 25 mg daily Today went to the vein clinic/ BP was high at their office Goes back again in November Knees hurt/ limits her exercise Diet reviewed Objective: BP 142/80 Pulse 70 Temp 97.9 ??F (36.6 ??C) (Oral) Ht 1.689 m (5' 6.5) Wt 99.519 kg (219 lb6.4 oz) BMI 34.88 kg/m2 Appearance healthy, alert and cooperative. General exam BP noted to be mildly elevated today in office, S1, S2 normal, no gallop, no murmur, chest clear, no JVD, no HSM, no edema. Lab review: orders written for new lab studies as appropriate; see orders. Assessment: Hypertension needs improvement. Plan: Continue HCTZ 25 mg. Amlodipine dose increased to 7.5 mg Monitor BP; recheck if BP is above 135/85 BUSINESS ANALYST documented in this encounter Nursing Notes 09/13/2013 4:00 PM CST >> [facility] Sep 13, 2013 4:21 PM Shahnaz is here today for a recheck on medications. Pre-visit planning discussed: Immunizations - up to date Mammogram - up to date Colonoscopy - up to date Asthma - na PHQ9/JAY - na Questioned patient about current smoking habits. Pt. has never smoked. Body mass index is 34.88 kg/(m^2). BP Cuff left Arm lrg Cuff PULSE regular My Chart: accepts documented in this encounter Plan of Treatment Not on filedocumented as of this encounter Procedures Procedure Name Priority Date/Time Associated Comments Diagnosis BASIC METABOLIC Routine 09/13/2013 5:13 PM Essential Result s for this PANEL IT BUSINESS ANALYST hypertension, procedure are in benign the results section. HEMOGLOBIN A1C Routine 09/13/2013 4:45 PM Essential Results for this IT BUSINESS ANALYST hypertension, procedure are in benign the results Other abnormal section. glucose HC VENOUS COLLECTION Routine 09/13/2013 4:17 PM Essential IT BUSINESS ANALYST hypertension, benign Other abnormal glucose documented in this encounter Results BASIC METABOLIC PANEL ([facility]) (09/13/2013 5:13 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) P athologist Signature Glucose 89 65 - 99 [facility] mg/dL [facility] Comment: ? Fasting reference interv al Urea Nitrogen 22 7 - 25 mg/dL [facility] Creatinine 0.70 0.50 - 0.99 mg/dL [facility] Comment: For patients >49 years of age, the refer ence limit for Creatinine is approximately 13% high er for people identified as -Barbadian. GFR Estimate 89 > OR = 60 [facility] mL/min/1.73m2 EGFR 103 > OR = 60 [facility] Barbadian mL/min/1.73m2 BUN/Creatinine NOT APPLICABLE 6 - 22 (calc) [facility] Ratio Sodium 141 135 - 146 mmol/L [facility] Potassium 3.6 3.5 - 5.3 mmol/L [facility] Chloride 100 98 - 110 mmol/L [facility] Carbon Dioxide 28 19 - 30 mmol/L [facility] Calcium 10.3 8.6 - 10.4 mg/dL [facility] Specimen Anatomical Collection Method Collection Time Receive d Time (Source) Location / / Volume Laterality Blood specimen 09/13/2013 5:13 PM 013 3:25 (specimen) IT BUSINESS ANALYST AM IT BUSINESS ANALYST Resulting Agency Comment Performing Organization Information: ? CB ? [facility] ? [address] [facility], [place] [address] ? Juanito Hardy M.D. Liudmila David MD LAB - BLOOD ORDERABLES Performing Organization Address City/State/ZIP Code Phon e Number [facility] [address] [place], [place] [address] [facility] [address] [place], [place] [address] Hemoglobin A1c ([facility]) (09/13/2013 4:45 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) P athologist Signature Hemoglobin A1C 5.4 <7.0 % [facility] Specimen (Source) Anatomical Location Collection Method / Collectio n Time Received Time / Laterality Volume Blood specimen (specimen) Liudmila David MD LAB - BLOOD ORDERABLES Performing Organization Address City/State/ZIP Code Phon e Number [facility] documented in this encounter Visit Diagnoses Diagnosis Essential hypertension, benign - Primary Other abnormal glucose Calculus of kidney documented in this encounter Care Teams Technical Delivery Manager Relationship Specialty Start Date End Date Jacquie Schmitt MD PCP - General 11/24/99 02/11/14 [address] , [facility] [address] [place] [address] documented as of this encounter
--- OUTSIDE RECORDS SUMMARY | 2022-08-18 09:32 | XMS_ITS | Encounter Summary ---
:1945 Author Organization [facility] Address [address] [place] [address] Care Team Providers Name Role Phone Liudmila David MD Primary Care Provider Unavailable Reason for Referral - Closed Specialty Diagnoses / Procedures Referred By Contact Refer red To Contact Diagnoses Enlarged lymph nodes Liudmila David MD [address] [facility] [address] [place] [address] Referral ID Status Reason Start Date Expiration Date Visits Requ ested Visits Authorized [id number] Closed 03/18/2014 09/14/2014 1 1 Reason for Visit Reason Comments Physical Encounter Details Date Type Department Care Team Description 03/18/2014 Office Visit [facility] Liudmila David gynecological examination (Primary Dx); Prateek Gatica MD Essential hypertension, mark gn; [address] [facility]culus of kidney; [address] Enlarged lymph nodes; [employer], [place] Dermatitis; [phone] Living will, counseling/disc ussion; [phone] Low blood potas sium; Screening for c ondition Social History Tobacco Use Types Packs/Day Years Used Date Smoking Tobacco: Former Cigarettes Quit : 11/07/1995 Smokeless Tobacco: Never Alcohol Use Standard Drinks/Week Comments Yes 0 (1 standard drink = 0.6 oz pure alcoho l) rare Sex Assigned at Date Recorded Female 10/17/2018 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 documented as of this encounter Last Filed Vital Signs Vital Sign Reading Time Taken Comments Blood Pressure 128/72 03/18/2014 10:34 AM CDT Pulse 70 03/18/2014 10:34 AM CDT Temperature 36.8 ??C (98.2 ??F) 03/18/2014 10:34 AM CDT Respiratory Rate - - Oxygen Saturation - - Inhaled Oxygen Concentration - - Weight 97.1 kg (214 lb) 03/18/2014 10:34 AM CDT Height 170.2 cm (5' 7) 03/18/2014 10:34 AM CDT Body Mass Index 33.52 03/18/2014 10:34 AM CDT documented in this encounter Progress Notes Liudmila David MD - 03/18/2014 8:14 AM CDT SUBJECTIVE: Shahnaz Phelps is an 68 year old 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 Menopause at age 49. No bleeding, spotting, or discharge noted. Estrogen replacement therapy: none currently, has taken in past SAMANTA exposure: no History of abnormal Pap smear: No Family history of uterine or ovarian cancer: Yes - mother age 90 Regular self breast exam: Yes History of [...] of kidney ??? Urge incontinence ??? [facility] Past Surgical History Procedure Laterality Date ??? 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 Hc knee scope,med/lat menisectomy 04/2005 Dr [...] Surgeon:Jared Jackson MD; Location: [facility] OR ??? Genitourinary surgery kidney stone removal ??? Hrw vein stripper 2012 lower leg sclerosis/ laser therapy Family History Problem Relation Age of Onset ??? Cancer Brother colon ??? Colon CA Mother ??? Colon CA Father ??? Cancer Mother 91 endometrial Current Outpatient Prescriptions Medication ??? hydrochlorothiazide (HYDRODIURIL) 25 MG tablet ??? amLODIPine (NORVASC) 2.5 MG tablet ??? amLODIPine (NORVASC) 5 MG tablet ??? Calcium Citrate-Vitamin D (CITRACAL + D PO) ??? ONE-A-DAY WOMENS 50 PLUS PO TABS ??? METRONIDAZOLE 1 % EX GEL No current facility-administered medications for this visit. Review Of Systems Skin: Rash from adhesive bandage on neck/ has been applying 1% hydrocortisone cream Eyes: negative Ears/Nose/Throat: negative Respiratory: No shortness of breath, dyspnea on exertion, cough, or hemoptysis Cardiovascular: Needs refill of her blood pressure pills/ Gastrointestinal: negative Genitourinary: bothered with recurrent kidney stones; currently under the care of Dr Jackson Incidental finding of enlarged lymph nodes, mesentery, no pathological uptake on PET scan/ ?? Thickening of terminal ileum Musculoskeletal: negative Neurologic: negative Psychiatric: negative Hematologic/Lymphatic/Immunologic: negative Endocrine: negative OBJECTIVE: BP 128/72 Pulse 70 Temp(Src) 98.2 ??F (36.8 ??C) (Oral) Ht 1.702 m (5' 7) Wt 97.07 kg (214 lb) BMI 33.51 kg/m2 General appearance: Healthy Skin: Normal. No [...] CVA tenderness or inguinal adenopathy noted. Pelvic: Vagina and vulva are normal. No palpable uterine or adnexal masses or tenderness. Pap obtained and pending. Rectal exam: deferred Extremities: negative. Assessment (V72.31) Routine gynecological examination (primary encounter diagnosis) Comment: Normal exam Plan: ThinPrep Pap rflx HPV mRNA E6/E7 ([facility]), Lipid Profile ([facility]), VENOUS COLLECTION, CL SPECIMEN HANDLING,DR OFF->LAB (401.1) Essential hypertension, benign Comment: controlled; no change in RX/ RECHECK IN SIX MONTHS Plan: COMPREHENSIVE METABOLIC PANEL ([facility]) XCMP, VENOUS COLLECTION, CL SPECIMEN HANDLING, OFF->LAB, hydrochlorothiazide (HYDRODIURIL) 25 MG tablet, amLODIPine (NORVASC) 2.5 MG tablet (592.0) Calculus of kidney Comment: Plan: HCL Urinalysis, Routine ([facility]) (785.6) Enlarged lymph nodes Comment: Incidental finding on CT/ referral to colon and rectal surgeons Plan: GASTROENTEROLOGY ADULT REFERRAL +/- PROCEDURE (692.9) Dermatitis Comment: Westcort unaffordable; will contact Dr Hopper for recommendations Plan: hydrocortisone (WESTCORT) 0.2 % cream (V65.49) Living will, counseling/discussion Comment: Plan: documented in this encounter Nursing Notes July Keenan - 03/18/2014 10:33 AM CDT Shahnaz is here today for a fasting phy. She would like to discuss kidney stones and f/u form urologist, Dr Jackson. Pre-visit planning discussed: Immunizations - up to date Mammogram - up to date Colonoscopy - up to date Asthma - na PHQ9/JAY - na Questioned patient about current smoking habits. Pt. quit smoking some time ago. Body mass index is 33.51 kg/(m^2). BP Cuff left Arm lrg Cuff [...] Negative CAGE score@ documented in this encounter Miscellaneous Notes Addendum Note - Liudmila David MD - 03/21/2014 12:20 PM CDT Addended by: LIUDMILA DAVID on: 03/21/2014 12:20 PM Modules accepted: Orders documented in this encounter Plan of Treatment Not on filedocumented as of this encounter Procedures Procedure Name Priority Date/Time Associated Diagnosis Comme nts CL AFF Routine 03/19/2014 Routine gynecological Result s for this HEMOGRAM/PLATE/DIFF examination procedure are in Enlarged lymph nodes the res ults section. THINPREP PAP RFLX HPV Routine 03/18/2014 11:45 Routine gynecol ogical Results for this MRNA E6/E7 ([facility]) AM CDT examination procedure are in the results section. LIPID PROFILE Routine 03/18/2014 11:38 Routine gynecological R esults for this AM CDT examination procedure are i n the results section. COMPREHENSIVE Routine 03/18/2014 11:38 Essential Results fo r this METABOLIC PANEL AM CDT hypertension, benign proc edure are in the results section. HC VENOUS COLLECTION Routine 03/18/2014 11:28 Essential AM CDT hypertension, be nign Routine gynecological examination HCL URINALYSIS, Routine 03/18/2014 Calculus of kidney Result s for this ROUTINE procedure are i n the results section. documented in this encounter Results CL AFF HEMOGRAM/PLATE/DIFF ([facility]) (03/19/2014) P athologist Signature WBC 7.7 4.3 - 11 [facility] thous/CU.MM RBC Count 4.39 4.2 - 5.4 [facility] Thous/CU.MM Hemoglobin 13.8 12 - 16 [facility] GM/DL Hematocrit 43.0 38 - 47 % [facility] MCV 97.9 82 - 100 FL [facility] MCH 31.4 26 - 33 pg [facility] MCHC 32.1 31 - 36 [facility] PERCENT Platelet Count 261 150 - 375 [facility] 10^9/L % Granulocytes 67.7 % [facility] % Lymphocytes 21.7 % [facility] % Monocytes 10.6 % [facility] Specimen (Source) Anatomical Location Collection Method / Collectio n Time Received Time / Laterality Volume 03/19/2014 Liudmila David MD LABORATORY Performing Organization Address City/State/ZIP Code Phon e Number [facility] ThinPrep Pap rflx HPV mRNA E6/E7 ([facility]) (03/18/2014 11:45 AM CDT) Patholo gist Method Time Signature Clinical PARA 1 [facility] History [facility] LMP PM [facility] Last Pap 42,112 [facility] Diagnosis [facility] Prev Bx Dx 51,214 [facility] Source Cervix [facility] Statement of SEE COMMENT [facility] Adequacy [facility] Comment: Satisfactory for evaluation. Endocervical/transformation zone compone nt present. Descriptive Diagnosis Negative for intraepithelial [facility] lesion or malignancy. Parole Supervisor: DORA MCINTYRE(ASCP) [facility] Specimen Anatomical Collection Method Collection Time Receive d Time (Source) Location / / Volume Laterality Cervical swab 03/18/2014 11:45 03/19/2014 4:04 (specimen) AM CDT AM CDT Resulting Agency Comment Performing Organization Information: ? SCU ? [facility] ? [address] [place], [place] [address] ? Liudmila David MD LAB - NON-BEAKER NON-BLOOD Performing Organization Address City/State/ZIP Code Phon e Number [facility] [address] [place], [place] [address] [facility] [address] [place], [place] [address] (ABNORMAL) COMPREHENSIVE METABOLIC PANEL ([facility]) XCMP (03/18/2014 11:38 AM CDT) P athologist Signature Glucose 114 (H) 65 - 99 [facility] mg/dL [facility] Comment: ? Fasting reference interv al Urea Nitrogen 19 7 - 25 mg/dL [facility] Creatinine 0.76 0.50 - 0.99 mg/dL [facility] Comment: For patients >49 years of age, the refer ence limit for Creatinine is approximately 13% high er for people identified as -Bermudian. GFR Estimate 81 > OR = 60 [facility] mL/min/1.73m2 EGFR 93 > OR = 60 [facility] Bermudian mL/min/1.73m2 BUN/Creatinine NOT APPLICABLE 6 - 22 (calc) [facility] Ratio Sodium 141 135 - 146 mmol/L [facility] Potassium 3.4 (L) 3.5 - 5.3 mmol/L [facility] Chloride 101 98 - 110 mmol/L [facility] Carbon Dioxide 26 19 - 30 mmol/L [facility] Calcium 10.2 8.6 - 10.4 mg/dL [facility] Protein Total 7.1 6.1 - 8.1 g/dL [facility] Albumin 4.9 3.6 - 5.1 g/dL [facility] Globulin 2.2 1.9 - 3.7 g/dL [facility] Calculated (calc) A/G Ratio 2.2 1.0 - 2.5 (calc) [facility] Bilirubin Total 0.8 0.2 - 1.2 mg/dL [facility] Alkaline 88 33 - 130 U/L [facility] Phosphatase AST 27 10 - 35 U/L [facility] ALT 29 6 - 29 U/L [facility] Specimen Anatomical Collection Method Collection Time Receive d Time (Source) Location / / Volume Laterality Blood specimen 03/18/2014 11:38 4 1:31 (specimen) AM CDT AM CDT Resulting Agency Comment Performing Organization Information: ? CB ? [facility] ? [address] [place], [place] [address] ? Juanito aHrdy M.D. Liudmila David MD LAB - BLOOD ORDERABLES Performing Organization Address City/State/ZIP Code Phon e Number [facility] [address] [place], [place] [address] [facility] [address] [place], [place] [address] Lipid Profile ([facility]) (03/18/2014 11:38 AM CDT) Analysis Performed At [facility] Signature Cholesterol 187 125 - 200 [facility] mg/dL [facility] HDL Cholesterol 58 > OR = 46 [facility] mg/dL [facility] Triglycerides 90 <150 mg/dL [facility] LDL Cholesterol 111 <130 mg/dL [facility] Calculated (calc) [facility] Comment: Desirable range <100 mg/dL for patients with CHD or diabetes and <70 mg/dL for diabetic suraj ents with known heart disease. Cholesterol/HDL Ratio 3.2 < OR = 5.0 (calc) [facility] Non HDL Cholesterol 129 mg/dL (calc) [facility] Comment: Target for non-HDL cholesterol is 30 mg/ dL higher than LDL cholesterol target. Specimen Anatomical Collection Method Collection Time Receive d Time (Source) Location / / Volume Laterality Blood specimen 03/18/2014 11:38 4 1:31 (specimen) AM CDT AM CDT Resulting Agency Comment Performing Organization Information: ? CB ? [facility] ? [address] [place], [place] [address] ? Juanito Hardy M.D. Liudmila David MD LAB - BLOOD ORDERABLES Performing Organization Address City/State/ZIP Code Phon e Number [facility] [address] [place], [place] [address] [facility] [address] [place], [place] [address] (ABNORMAL) HCL Urinalysis, Routine ([facility]) (03/18/2014) [facility] Method Time Signature Color Urine Yellow [facility] Appearance Urine Slightly [facility] Cloudy (A) Glucose Urine Neg neg mg/dL [facility] Bilirubin Urine Neg neg [facility] Ketones Urine Neg neg mg/dL [facility] Specific [place] 1.010 [facility] Blood Urine Neg neg [facility] pH Urine 7.0 5.0 - 7.0 [facility] pH Albumin Urine neg neg - neg [facility] mg/dL Urobilinogen 0.2 0.2 - 1.0 [facility] Urine EU/dL Nitrite Urine Neg NEG [facility] Leukocyte small (A) neg - neg [facility] Esterase Wbc, Urine Micro 3-6 (A) neg - 2 [facility] RBC Micro Urine 0-1 neg - 2 [facility] EP/HPF few [facility] Bacteria Urine small (A) neg - neg [facility] Casts/LPF neg [facility] Miscellaneous neg [facility] Specimen (Source) Anatomical Location Collection Method / Collectio n Time Received Time / Laterality Volume 03/18/2014 Liudmila David MD LABORATORY Performing Organization Address City/[facility]/ZIP Code Phon e Number [facility] documented in this encounter Visit Diagnoses Diagnosis Routine gynecological examination - Prim elke Essential hypertension, benign Calculus of kidney Enlarged lymph nodes Enlargement of lymph nodes Dermatitis Contact dermatitis and other eczema, due to unspecified cause Living will, counseling/discussion Other specified counseling Low blood potassium Hypopotassemia Screening for condition Screening for unspecified condition documented in this encounter Care Teams Residency Program Coordinator Relationship Specialty Start Date End Date Liudmila David MD PCP - General Family Practice 02/12/14 1 12/06/19 documented as of this encounter
--- OUTSIDE RECORDS SUMMARY | 2022-08-18 09:32 | XMS_ITS | Encounter Summary ---
:1945 Author Organization [facility] Address [address] [place] [address] Care Team Providers Name Role Phone Jacquie Schmitt MD Primary Care Provider Liudmila David MD Primary Care Provider Unavailable Encounter Details Date Type Department Care Team Description 01/24/2014 Orders Only [place] [facility], Provider SCAN ARIN RESULTS Physicians (Primary Dx) [address] [place] [address] [address] [place] [address] Social History Tobacco Use Types Packs/Day Years Used Date Smoking Tobacco: Former Cigarettes Quit : 11/07/1995 Smokeless Tobacco: Never Alcohol Use Standard Drinks/Week Comments Yes 0 (1 standard drink = 0.6 oz pure alcoho l) rare Sex Assigned at Date Recorded Female 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 Provider Abstract IMG US ORDERABLES documented in this encounter Visit Diagnoses Diagnosis SCANNING RESULTS - Primary documented in this encounter Care Teams Pack Changer Relationship Specialty Start Date End Date Jacquie Schmitt MD PCP - General 11/24/99 02/11/14 [address] [facility] [address] [place], [place] [id number] Liudmila David MD PCP - General Family Practice 02/12/14 1 12/06/19 documented as of this encounter
--- OUTSIDE RECORDS SUMMARY | 2022-08-18 09:32 | XMS_ITS | Encounter Summary ---
:1945 Author Organization [place] Address [address] [place] [address] Care Team Providers Name Role Phone Jacquie Schmitt MD Primary Care Provider Reason for Visit Reason Comments Lab Only Encounter Details Date Type Department Care Team Description 12/14/2012 Orders Only [facility] Jacquie Schmitt Calcul us of kidney Physicians (Primary Dx) [address] , [address] [id number] [phone] Social History Tobacco Use Types Packs/Day Years Used Date Smoking Tobacco: Former Cigarettes Quit : 11/07/1995 Smokeless Tobacco: Never Alcohol Use Standard Drinks/Week Comments Yes 0 (1 standard drink = 0.6 oz pure alcoho l) rare Sex Assigned at Date Recorded Female 10/17/2018 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 Jared Jackson documented in this encounter Plan of Treatment Not on filedocumented as of this encounter Procedures Procedure Name Priority Date/Time Associated Comments Diagnosis CALCIUM Routine 12/14/2012 1:09 PM Calculus of kidney Res ults for this SLOT EDITOR procedure are i n the results section. HC VENOUS COLLECTION Routine 12/14/2012 1:00 PM Calculus of ki dney SLOT EDITOR documented in this encounter Results CALCIUM ([facility]) (12/14/2012 1:09 PM SLOT EDITOR) P athologist Signature Calcium 10.1 8.6 - 10.4 [facility] mg/dL [facility] Specimen Anatomical Collection Method Collection Time Receive d Time (Source) Location / / Volume Laterality Blood specimen 12/14/2012 1:09 PM 013 (specimen) SLOT EDITOR 12:45 AM SLOT EDITOR Resulting Agency Comment Performing Organization Information: ? CB ? [facility] ? [address] [facility] [place] [address] ? Juanito Hardy M.D. Jacquie Schmitt MD LAB - BLOOD ORDERABLES Performing Organization Address City/State/ZIP Code Phon e Number [facility] [address] [place] [address] [facility] [address] [place] [facility], [place] [address] documented in this encounter Visit Diagnoses Diagnosis Calculus of kidney - Primary documented in this encounter Care Teams Agriculture Mechanic Relationship Specialty Start Date End Date Jacquie Schmitt MD PCP - General 11/24/99 02/11/[address], [address] [place] [address] documented as of this encounter
--- OUTSIDE RECORDS SUMMARY | 2022-08-18 09:32 | XMS_ITS | Encounter Summary ---
:1945 Author Organization [place] Address [address] [place] [address] Care Team Providers Name Role Phone Jacquie Schmitt MD Primary Care Provider Reason for Visit Reason Onset Date Comments Patient Request 03/03/2012 Encounter Details Date Type Department Care Team Description 03/03/2012 Telephone [facility] Jacquie Schmitt MD Patient Request Physicians 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
--- OUTSIDE RECORDS SUMMARY | 2022-08-18 09:32 | XMS_ITS | Encounter Summary ---
:1945 Author Organization [place] Address [address] [place] [address]. [place] [address] Care Team Providers Name Role Phone Jacquie Schmitt MD Primary Care Provider Reason for Visit Auth/Cert (Routine) - Closed Specialty Diagnoses / Procedures Referred By Contact Refer red To Contact Surgery Diagnoses RIGHT RENAL STONE Sh Periop Services Procedures COMBINED EXTRACORPOREAL SHOCK WAVE LITHOTRIPSY, CYSTOSCOPY, INSERT STENT URETER(S) [address], [address] [place] [address] Phone: Referral ID Status Reason Start Date Expiration Date Visits Requ ested Visits Authorized [id number] Closed 1 1 Encounter Details Date Type Department Care Team Description 06/08/2012 Hospital Encounter M [facility] [place], Calc ulus of kidney Jose Coleman MD PreOP/Phase II [place] [address], UROLOGY [address] [place] [address] [address] [address] [facility] [phone] [place] [address] Social History Tobacco Use Types Packs/Day Years Used Date Smoking Tobacco: Former Cigarettes Quit : 11/07/1995 Smokeless Tobacco: Never Alcohol Use Standard Drinks/Week Comments Yes 0 (1 standard drink = 0.6 oz pure alcoho l) rare Sex Assigned at Date Recorded 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 Same Day Surgery Discharge Instructions For Sedation and General Anesthesia 1. It is not unusual to feel light-headed or faint, up to 24 hours after surgery or while taking pain medication. If you have these symptoms; sit for a few minutes before standing and have someone assist you when you get up to walk or use bathroom. 2. You should rest and relax for the next 24 hours and must make arrangements to have someone stay with you for at least 24 hours after your discharge. Avoid hazardous and strenuous activities. 3. DO NOT DRIVE any vehicle or operate mechanical equipment for 24 hours following the end of your surgery. Even though you feel normal, your reactions may be affected by the medication you have received. 4. Do not drink alcoholic beverages for 24 hours following your surgery. 5. Drink clear liquids (apple juice, elen garrick, broth, 7-up etc.) Progresses to your regular diet as you feel able. 6. Any questions of a medical nature, call your physician. 7. Do not make important decisions for 24 hours. Cystoscopy Discharge Instructions Diet: Return to the diet that you were on before the procedure, unless you are given specific diet instructions. It is important to drink 6-8 glasses of fluids per day at home - at least 3-4 glasses should be water. Activity: Walk short distances and increase as your strength allows. You may climb stairs. Do not do strenuous exercise or heavy lifting until approved by surgeon. Do not drive while taking narcotic pain medications. Bathing: You may take a shower. Call your physician at if these signs/symptoms are present: Pain that is not relieved by a short rest or ordered pain medications. Temperature at or above 101.0??F or chills. Inability or difficulty urinating. Excessive blood in urine. Any questions or concerns. Your follow up appointment is Nurse signature Date/Time Patient signature STENT INFORMATION SHEET During surgery, a stent [...] place you may experience the following symptoms: Blood and/or small blood clots in urine. Bladder spasm (frequency and urgency of urination). Discomfort or aching in the back or side where the stent is. Burning or discomfort at the end of urine stream. To decrease these symptoms you should: Take pain medication as prescribed. Drink plenty of fluids. If you experience pain at the end of urination try not emptying your bladder completely. If having discomfort in back or side, decrease activity. Please call your physician or the physician terra cotta mason if you experience: Fever greater than 101??. Severe pain not relieved by pain medication or rest. Please make an appointment for removal of the stent according to your physician???s instructions. DISCHARGE INSTRUCTIONS FOLLOWING EXTRACORPOREAL SHOCK LITHOTRIPSY (ESWL) [...] Take the stone fragments to your urologist. He will have them analyzed to help determine the cause of your stone(s). You should walk around and resume every day activities. Activity may help the stone fragments pass. You should, however, avoid sports or really strenuous exercise for about a week, or at least till there is no more blood in your urine. You may resume regular diet. Call your urologist if you have: a. Persistent severe pain not relieved by oral medications. b. Fever (over 101??). c. Persistent vomiting. See your urologist as directed. He will need to take an x-ray to check your progress. Take him your stone fragments. In addition, these medications have been prescribed: Your doctor may want you to do body positioning to help pass your stone fragments. If your doctor wants you to do these exercises do them 1-2 times a day. (Please refer to back page). Try to sleep on the untreated side. Try to drink 1?? quarts of liquid per day to help the fragments pass. If these exer cises seem difficult, don't attempt to do them. If you think you can do them, try it. But discontinue if positioning make you light headed, sick to your stomach or makes it difficult to breath. [phone] Rev. 04/2004 documented in this encounter Medications at Time of Discharge Medication Sig Dispensed Refills Start Date End Date atenolol (TENORMIN) 25 MG Take 1 tablet by 14 tablet 0 05/0806/15/2012 tabletIndications: Calculus mouth daily for of kidney, Other specified 14 days. pre-operative examination amLODIPine (NORVASC) 5 MG Take 1 tablet by 90 tablet 1 02/0609/05/2012 tabletIndications: Essential mouth daily. hypertension, benign CALCIUM 600 + D 600-200 0 0 03/06/2004 1 MG-IU OR TABS Cholecalciferol (VITAMIN D3 Take by mouth 0 2012 PO) daily. 400 IU ciprofloxacin (CIPRO) 500 MG Take 1 tablet by 6 tablet 0 0 06/08/2012 07/03/2012 tabletIndications: Calculus mouth 2 times of kidney daily. hydrochlorothiazide Take 0.5 tablets 45 tablet 1 02/26/2012 2012 (HYDRODIURIL) 25 MG by mouth daily. tabletIndications: Essential hypertension, benign HYDROcodone-acetaminophen Take 1 tablet by 30 tablet 0 12/201107/03/2012 5-325 MG per mouth every 6 tabletIndications: Calculus hours as needed of kidney for pain. ONE-A-DAY WOMENS 50 PLUS PO 1 TABLET DAILY 0 07/31/2014 TABS oxybutynin (DITROPAN) 5 MG Take 1 tablet by 270 tablet 3 12/201107/03/2012 tabletIndications: Calculus mouth 3 times of kidney daily. TRETINOIN 0.1 % EX None Entered 0 06/08 CREAIndications: Other acne hydrocortisone (ANUSOL-HC) Place rectally 2 30 g 1 2012 2.5 % rectal times daily. creamIndications: Anal fissure METRONIDAZOLE 1 % EX None Entered 0 GELIndications: Other acne documented as of this encounter Progress Notes Jared Jackson MD - 06/18/2012 4:46 PM CDT Jared Jackson MD - 06/15/2012 3:15 PM CDT documented in this encounter H&P Notes Manisha Bundy - 06/02/2012 10:13 AM CDT This note is for the purpose of making the H&P performed in the clinic within the last 30 days available in the hospital surgical encounter. This note is for the purpose of making the H&P performed in the clinic within the last 30 days available in the hospital surgical encounter. Source Note - Jacquie Schmitt MD - 06/01/2012 1:25 PM CDT [facility] [address] [place] [address] [place] [address] PRE-OP EVALUATION: Today's date: 06/01/2012 Shahnaz Maretlleld (: 1945) presents for pre-operative evaluation assessment as requestedby Dr. Jackson. She requires evaluation and anesthesia risk assessment prior to undergoing surgery/procedure for treatment of Kidney Stones . Proposed procedure: Kidney Stone Removal Date of Surgery/ Procedure: 06/08/12 Time of Surgery/ Procedure: 6:50 am Hospital/Surgical Facility: [facility] Fax number for surgical facility: [phone] Primary Physician: Dr.L Schmitt Type of Anesthesia Anticipated: TBD History of anesthesia complications: NONE History of abnormal bleeding: NONE History of blood transfusions: NO Patient has a Health Care Directive or Living Will: NO PREOP QUESTIONNAIRE HPI: See problem list for active medical problems. Problems all longstanding and stable, except as noted/documented. See ROS for pertinent symptoms related to these conditions. . Patient Active Problem List Diagnoses Date Noted ??? Calculus of kidney 03/28/2012 ??? Urge incontinence 03/28/2012 ??? Living will, counseling/discussion 02/26/2012 Discussed advance care planning with patient; however, patient declined at this time. 02/26/2012 ??? Essential Hypertension, Benign 02/25/2009 ??? OBESITY NOS 12/11/2007 ??? MALIG NEOPLASM SKIN FACE NEC 03/08/2005 ??? OSTEOARTHROS NOS-UNSPEC 07/14/2004 ??? DIVERTICULOSIS OF COLON W/O BLEED ??? ACNE NEC ??? PERS HX COLONIC POLYPS Past Medical History Diagnosis Date ??? Other acne ??? Need for prophylactic hormone replacement therapy (postmenopausal) ??? Allergic rhinitis due to pollen Past Surgical History Procedure Date ??? Hc colonoscopy thru stoma w biopsy/cautery tumor/polyp/lesion ??? Hc colonoscopy thru stoma w biopsy/cautery tumor/polyp/lesion ??? Hc colonoscopy thru stoma w biopsy/cautery tumor/polyp/lesion 2000 ??? Hc colonoscopy thru stoma w biopsy/cautery tumor/polyp/lesion 2002 Dr [place] ??? Hc remv cataract extracap,insert lens 03/10/04 right ??? Hc remv cataract extracap,insert lens 04/[address] Keith ??? Anesth,skin surgery, back 12/21/04 [...] Hc hysteroscopy w endometrial bx/polypectomy w/wo d&c 2007 benign uterine polyp ??? Hcl pap smear 11/2008 Carlos White Current Outpatient Prescriptions Medication Sig Dispense Refill ??? oxybutynin (DITROPAN) 5 MG tablet Take 5 mg by mouth 3 times daily. ??? hydrocortisone (ANUSOL-HC) 2.5 % rectal cream Place rectally 2 times daily. ??? hydrochlorothiazide (HYDRODIURIL) 25 MG tablet Take 0.5 tablets by mouth daily. ??? amLODIPine (NORVASC) 5 MG tablet Take 1 tablet by mouth daily. ??? Cholecalciferol (VITAMIN D3 PO) Take by mouth daily. 400 IU ??? ONE-A-DAY WOMENS 50 PLUS PO TABS 1 TABLET DAILY ??? METRONIDAZOLE 1 % EX GEL None Entered ??? TRETINOIN 0.1 % EX CREA None Entered ??? POTASSIUM CHLORIDE 10 MEQ OR TBCR 3-4 bananas/week ??? CALCIUM 600 + D 600-200 MG-IU OR TABS OTC products: None, except as noted above Allergies Allergen Reactions ??? Imidazole Antifungals hives ??? Penicillins hives Latex Allergy: NO History Substance Use Topics ??? Smoking status: Former Smoker Quit date: 11/07/1995 ??? Smokeless tobacco: Never Used ??? Alcohol Use: 0.0 oz/week 0 drink(s) per week rare History Drug Use No REVIEW OF SYSTEMS: C: NEGATIVE for fever, chills, change in weight E/M: NEGATIVE for ear, mouth and throat problems R: NEGATIVE for significant cough or SOB CV: NEGATIVE for chest pain, palpitations or peripheral edema EXAM: BP 120/76 Pulse 72 Temp(Src) 98.2 ??F (36.8 ??C) (Oral) Ht 1.695 m (5' 6.75) Wt 91.627 kg (202 lb) BMI 31.88 kg/m2 GENERAL APPEARANCE: healthy, alert and no [...] intact and speech normal DIAGNOSTICS: Preop Testing HGB: 13.8 EKG: attached WNL IMPRESSION: Diagnosis/reason for consult: Calculus of kidney (primary encounter diagnosis) Other specified pre-operative examination The proposed surgical procedure is considered LOW risk. For above listed surgery and anesthesia: Patient is at LOW risk for surgery/procedure and perioperative/procedure complications. Atenolol at bedtime for 14 days RECOMMENDATIONS: --Approval given to proceed with proposed procedure, without further diagnostic evaluation. Signed Electronically by: Jacquie Schmitt MD, MD Copy of this evaluation report is provided to requesting physician. documented in this encounter Nursing Notes Maria Eugenia Beckwith RN - 06/08/2012 10:54 AM CDT Urine strainer sent with patient documented in this encounter OR Notes OR Anesthesia - Jared Jackson MD - 06/15/2012 2:24 PM CDT documented in this encounter Miscellaneous Notes Op Note - Jared Jackson MD - 06/15/2012 3:43 PM CDT Op Note - Jared Jackson MD - 06/08/2012 7:00 PM CDT PREOPERATIVE DIAGNOSIS: Right nephrolithiasis. POSTOPERATIVE DIAGNOSIS: Right nephrolithiasis. PROCEDURE: Right extracorporeal shockwave lithotripsy and right stent placement and left retrograde. SURGEON: Jared Jackson MD ANESTHESIA: General. ANTIBIOTICS: Preoperatively she received antibiotics. INDICATIONS FOR PROCEDURE: Shahnaz Phelps is a 66-year-old female with a history of bilateral nephrolithiasis who recently passed the left ureteral stone judged by the negative IVP. This time she presents for extracorporeal shockwave lithotripsy of her 2 stones on the right kidney and 1 stone is a5 mm in the upper pole of the kidney and they other is an approximately 1 cm in the lower pole of the kidney. I stressed to her risks of the procedure including bleeding, infection, injury to the surrounding organs and need for additional surgery. She understands and she would like to proceed. DETAILS OF THE PROCEDURE: Patient was brought to the operating room, placed in supine position. After excellent induction of general anesthesia, her perineum was prepped and draped in a regular fashion. A 22-[place] Islander cystoscope was placed per urethra. Evaluation of the bladder did not demonstrate any bladder lesions. Attention was brought to the right ureter. A Glidewire was passed all the way to the right renal pelvis under fluoroscopic guidance and 6 x 26 double-J stent was placed under fluoroscopy,I also performed left retrograde given recent passage of the stone which demonstrated no filling defects, no hydronephrosis on her hydroureter on the left side. Once the bladder was drained she was positioned supine and then using [employer] shock wave lithotripter, we were able to visualize a 5 mm stone in the upper pole of the kidney as well as 1 cm stone in the lower pole of the kidney. 3200 shock waves were delivered to both locations. At the completion the upper stone appears to be somewhat broken down and there appeared to be multiple fragments from the lower pole stone. She was extubated and trans ported to the stretcher to the recovery room in stable condition. PLAN: The plan as of now would be to follow up in the clinic 3-4 week interval with a repeat KUB prior to the second stage procedure, i.e., stent removal in the clinic. JARDE JACKSON MD MT: [id number] Name: SHAHNAZ PHELPS MRN: [id number] Account: [id number] : 1945 Procedure Date: 06/08/2012 Document: [id number] Brief Op Note - Jared Jackson MD - 06/08/2012 7:43 AM CDT UROLOGY OPERATIVE REPORT PREOP DIAGNOSIS Right kidney stones POSTOP DIAGNOSIS Same ANESTHESIA General PROCEDURE Procedure(s): Right COMBINED EXTRACORPOREAL SHOCK WAVE LITHOTRIPSY, CYSTOSCOPY, right INSERT STENT URETER(S), leftretrograde STAFF Lupe Reyes RN - Supervisor Order Takers Do Colindres - Scrub Person SURGEON Surgeon(s): Jared Jackson MD FINDINGS 6 mm stone in the upper pole, multiple stones in low pole total of 1 cm EBLnone PLAN F/u in 3-4 weeks with KUB prior Jared Jackson MD documented in this encounter Plan of Treatment Not on filedocumented as of this encounter Procedures Procedure Name Priority Date/Time Associated Comments Diagnosis LITHOTRIPSY, 06/08/2012 7:14 AM RIGHT RENAL STONE EXTRACORPOREAL SHOCK CDT WAVE (ESWL), WITH CYSTOSCOPY AND URETERAL STENT INSERTION XR KUB Routine 06/08/2012 6:57 AM Results f or this CDT procedure are i n the results section. POTASSIUM STAT 06/08/2012 6:45 AM Results f or this CDT procedure are i n the results section. documented in this encounter Results X-ray KUB (06/08/2012 6:57 AM CDT) Anatomical Region Laterality Modality Abdomen/Pelvis Computed Radiography Specimen (Source) Anatomical Collection Method Collection Time Re ceived Time Location / / Volume Laterality 06/08/2012 6:57 AM CDT Impressions 06/08/2012 9:06 AM CDT ONE VIEW ABDOMEN June 08, 2012 6:57:00 AM HISTORY: Preoperative, kidney stones. COMPARISON: Study dated 05/15/2012. FINDINGS: Multiple right renal calculi a re again seen. These are unchanged. Jared Jackson MD IMG DIAGNOSTIC IMAGING ORDER [place] Potassium (06/08/2012 6:45 AM CDT) athologist Signature Potassium 3.8 3.4 - 5.3 BRANCH mmol/L [facility] Specimen Anatomical Collection Method Collection Time Receive d Time (Source) Location / / Volume Laterality Blood specimen 06/08/2012 6:45 AM 012 7:00 (specimen) CDT AM CDT Orlando Garcia MD LAB - BLOOD ORDERABLES Performing Organization Address City/State/ZIP Code Phon e Number M [facility] [address] [address] [facility] documented in this encounter Visit Diagnoses Diagnosis Calculus of kidney documented in this encounter Administered Medications Inactive Administered Medications - up to 3 most recent administrations Medication Order MAR Action Action Date Dose Rate Site lactated ringers infusion New Bag 06/08/2012 9:04 AM CDT 1,000 mLs 100 mL/hr at 100 mL/hr, Intravenous, CONTINUOUS, Continue until IV catheter is weaned, PACU/Phase II, Starting on Lizzette 812 at 0845, Until Lizzette 06/08/12 at 1004 documented in this encounter Active and Recently Administered Medications Times are shown in CDT. Scheduled Medication Order 06/06/2012 06/07/2012 06/08/2012 ciprofloxacin (CIPRO) 400 mg in dextrose 5% 200 mL IVPB (COMPLET ED) 0727 (Given - Provider: Gisela Farias APRN CAMP HOUSEKEEPER)0730 (Due) Routine, 400 mg, Intravenous, PRE-OP/PRE -PROCEDURE, Starting on Lizzette 812 at 0730, For 1 dose, Pre-procedure Continuous Medication Order 06/06/2012 06/07/2012 06/08/2012 lactated ringers infusion (CANCELED) 0904 (New Bag - Provider: Seema Eng RN) at 100 mL/hr, Intravenous, CONTINUOUS, C ontinue until IV catheter is weaned, PACU/Phase II, Starting on Lizzette 812 at 0845, Until Lizzette 812 at 1004 documented in this encounter Care Teams Mission Assessment Specialist Relationship Specialty Start Date End Date Jacquie Schmitt MD PCP - General 11/24/99 02/11/[address], [address] [place] [address] documented as of this encounter
--- OUTSIDE RECORDS SUMMARY | 2022-08-18 09:32 | XMS_ITS | Encounter Summary ---
:1945 Author Organization [place] Address [address] [place] [address] Care Team Providers Name Role Phone Liudmila David MD Primary Care Provider Unavailable Encounter Details Date Type Department Care Team Description 03/14/2014 Orders Only [facility] Abstract, Provider SCAN ARIN RESULTS Physicians (Primary Dx) [address] [place] [address] Social History Tobacco Use Types Packs/Day Years Used Date Smoking Tobacco: Former Cigarettes Quit : 11/07/1995 Smokeless Tobacco: Never Alcohol Use Standard Drinks/Week Comments Yes 0 (1 standard drink = 0.6 oz pure alcoho l) rare Sex Assigned at Date Recorded 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 documented in this encounter Results PE NPET Whole Body Pet Ct Pi (03/14/2014) Anatomical Region Laterality Modality Other Narrative This result has an attachment that is no t available. Provider Abstract IMG NM ORDERABLES documented in this encounter Visit Diagnoses Diagnosis SCANNING RESULTS - Primary documented in this encounter Care Teams Car Runner Relationship Specialty Start Date End Date Liudmila David MD PCP - General Family Practice 02/12/14 1 12/06/19 documented as of this encounter
--- OUTSIDE RECORDS SUMMARY | 2022-08-18 09:32 | XMS_ITS | Encounter Summary ---
:1945 Author Organization [facility] [place] [facility] Address [address] [place] [address] Care Team Providers Name Role Phone Jacquie Schmitt MD Primary Care Provider Reason for Visit Auth/Cert - Closed Specialty Diagnoses / Procedures Referred By Contact Refer red To Contact Gastroenterology Diagnoses Rectal Bleed Rh Endoscopy Procedures COLONOSCOPY [address] [place] [address] Phone: Fax: Referral ID Status Reason Start Date Expiration Date Visits Requ ested Visits Authorized [id number] Closed 1 1 Encounter Details Date Type Department Care Team Description 07/03/2012 Hospital Encounter [facility] Krysta Mesa C olon polyps Endoscopy (Primary Dx) [place] XXX RETIRED XXX [address] [place] [address] [place], [place] [phone] (Work) [phone] Social History Tobacco Use Types Packs/Day Years Used Date Smoking Tobacco: Former Cigarettes Quit : 11/07/1995 Smokeless Tobacco: Never Alcohol Use Standard Drinks/Week Comments Yes 0 (1 standard drink = 0.6 oz pure alcoho l) rare Sex Assigned at Date Recorded 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 Last Filed Vital Signs Vital Sign Reading Time Taken Comments Blood Pressure 126/79 07/03/2012 10:40 AM CDT Pulse - - Temperature - - Respiratory Rate 16 07/03/2012 10:40 AM CDT Oxygen Saturation 90% 07/03/2012 10:40 AM CDT Inhaled Oxygen Concentration - - Weight 90.7 kg (200 lb) 07/03/2012 9:17 AM CDT Height 170.2 cm (5' 7) 07/03/2012 9:17 AM CDT Body Mass Index 31.32 07/03/2012 9:17 AM CDT documented in this encounter Medications at Time of Discharge Medication Sig Dispensed Refills Start Date End Date amLODIPine (NORVASC) 5 MG Take 1 tablet by 90 tablet 1 02/0609/05/2012 tabletIndications: Essential mouth daily. hypertension, benign hydrochlorothiazide Take 0.5 tablets 45 tablet 1 02/26/2012 2012 (HYDRODIURIL) 25 MG by mouth daily. tabletIndications: Essential hypertension, benign hydrocortisone (ANUSOL-HC) Place rectally 2 30 g 1 2012 2.5 % rectal times daily. creamIndications: Anal fissure METRONIDAZOLE 1 % EX None Entered 0 GELIndications: Other acne ONE-A-DAY WOMENS 50 PLUS PO 1 TABLET DAILY 0 07/31/2014 TABS CALCIUM 600 + D 600-200 0 0 03/06/2004 1 MG-IU OR TABS Cholecalciferol (VITAMIN D3 Take by mouth 0 2012 PO) daily. 400 IU documented as of this encounter H&P Notes Krysta Mesa MD - 07/03/2012 9:30 AM CDT Pre-Endoscopy History and Physical Shahnaz Phelps Date of : 1945 Age: [age] year old Date of Procedure: 07/03/2012 Primary care provider: Jacquie Schmitt Type of Endoscopy: colonoscopy Reason for Procedure: hematochezia and Hx of polyps Type of Anesthesia Anticipated: Moderate (conscious) sedation } HPI: Shahnaz is a 66 year old female who will be undergoing the above procedure. A history and physical has been performed. The patient's medications and allergies have been reviewed. The risks and benefits of the procedure and the sedation options and risks were discussed with thepatient. All questions were answered and informed consent was obtained. She reports a personal or family history of anesthesia complications or bleeding disorders. Allergies Allergen Reactions ??? Imidazole Antifungals hives ??? Penicillins hives Current Facility-Administered Medications Medication ??? Lidocaine 1% injection 1 mL ??? lidocaine 4 % (LMX4) cream ??? sodium chloride (PF) 0.9% PF flush 3 mL ??? sodium chloride (PF) 0.9% PF flush 3 mL Patient Active Problem List Diagnoses ??? PERS HX COLONIC POLYPS ??? ACNE NEC ??? DIVERTICULOSIS OF COLON W/O BLEED ??? OSTEOARTHROS NOS-UNSPEC ??? MALIG NEOPLASM SKIN FACE NEC ??? OBESITY NOS ??? Essential Hypertension, Benign ??? Living will, counseling/discussion ??? Calculus of kidney ??? Urge incontinence Past Medical History Diagnosis Date ??? Other acne ??? Need for prophylactic hormone replacement therapy (postmenopausal) ??? Allergic rhinitis due to pollen ??? PONV (postoperative nausea and vomiting) ??? Hypertension ??? 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 Hc [...] w/wo d&c 2006 benign uterine polyp ??? Hcl pap smear 11/2008 Carlos White ??? Colonoscopy 06/2012 scheduled ??? Extracorporeal shock wave lithotripsy, cystoscopy, insert stent ureter(s), combined 06/08/2012 Procedure: COMBINED EXTRACORPOREAL SHOCK WAVE LITHOTRIPSY, CYSTOSCOPY, INSERT STENT URETER(S); RIGHT COMBINED EXTRACORPOREAL SHOCK WAVE LITHOTRIPSY, CYSTOSCOPY, RIGHT STENT, LEFT RETROGRADE.; Surgeon:Jared Jackson MD; Location: OR ??? Genitourinary surgery kidney stone removal History Substance Use Topics ??? Smoking status: Former Smoker Quit date: 11/07/1995 ??? Smokeless tobacco: Never Used ??? Alcohol Use: 0.0 oz/week 0 drink(s) per week rare Family History Problem Relation Age of Onset ??? Cancer Brother colon REVIEW OF SYSTEMS: 5 point ROS negative except as noted above in HPI, including Gen., Resp., CV, GI & system review. PHYSICAL EXAM: BP 148/70 Resp 9 Ht 1.702 m (5' 7) Wt 90.719 kg (200 lb) BMI 31.32 kg/m2 SpO2 95% Estimated Body mass index is 31.32 kg/(m^2) as calculated from the following: Height as of this encounter: 5' 7(1.702 m). Weight as of this encounter: 200 lb(90.719 kg). GENERAL APPEARANCE: healthy MENTAL STATUS: alert AIRWAY EXAM: Mallampatti Class I (visualization of the soft palate, fauces, uvula, anterior and posterior pillars) RESP: lungs clear to auscultation - no rales, rhonchi or wheezes CV: normal S1 S2, no S3 or S4 DIAGNOSTICS: Not indicated IMPRESSION ASA Class 1 - Healthy patient, no medical problems PLAN: colonoscopy The above has been forwarded to the consulting provider. Signed Electronically by: Krysta Mesa July 03, 2012 . documented in this encounter Nursing Notes Nate Oh RN - 06/29/2012 2:35 PM CDT History obtained from which states she has given [facility] all rights to talk to about her and visa versa. documented in this encounter Miscellaneous Notes Brief Op Note - Lashawn Vanessa RN - 07/03/2012 10:50 AM CDT ttempted IV site on right hand is ecchymotic and swollen. Patient instructed to warm pack hand when she gets home and to call PMD if redness or erythema ensues. documented in this encounter Plan of Treatment Scheduled Orders Name Type Priority Associated Diagnoses Order S chedule PATIENT HANDOUT Procedures Routine Colon polyps Ordered: documented as of this encounter Procedures Procedure Name Priority Date/Time Associated Diagnosis Comme nts SURGICAL PATHOLOGY Routine 07/03/2012 10:02 AM Re sults for this EXAM CDT procedure are i n the results section. COLONOSCOPY, WITH 07/03/2012 9:14 AM polyps LESION EXCISION CDT USING HOT BIOPSY DEVICE Special Needs Ref: Dr Jacquie Schmitt COLONOSCOPY Routine 07/03/2012 9:05 AM CDT Resul ts for this procedure are in the results section . documented in this encounter Results Surgical pathology exam (07/03/2012 10:02 AM CDT) Component Value Ref Test Analysis Performed At [facility] gist Range Method Time Signature Copath Report Patient Name: SHAHNAZ PHELPS MR#: [id number] Specimen #: [id number] Collected: 07/03/2012 Received: 07/03/2012 Reported: 07/04/2012 15:44 Ordering Phy(s): KRYSTA MESA SPECIMEN(S): Rectal polyps FINAL DIAGNOSIS: Rectum, polypS (x4), biopsy/polypectomy - Hyperplastic polyp s. Electronically signed out by: Bree Michael M.D. CLINICAL HISTORY: Rectal bleeding. GROSS: The specimen, labeled rectal polyps, consists of three fra gments of browning to pink soft tissue measuring 0.2 cm in diameter each. ? ?The specimen is submitted in its entirety. ??SABRA/ksenia MICROSCOPIC: Microscopic examination is performed. Flavio 07-04-12 TESTING LAB LOCATION: [address] ??[phone] COLLECTION SITE: Client: [facility] Location: RHENDO (R) Specimen Anatomical Collection Method Collection Time Receive d Time (Source) Location / / Volume Laterality 07/03/2012 10:02 07/03/2012 AM CDT 11:19 AM CDT Krysta DRIVER - MARIA GUADALUPE Performing Organization Address City/State/ZIP Code Phon e Number COPATH COLONOSCOPY (07/03/2012 9:05 AM CDT) [facility] Method Time Signature COLONOSCOPY [facility] RAD IOLOGY RESULTS Patient Name: Shahnaz adams ?Procedure Date: 07/03/2012 9:05:08 AM ? Date of : 1945 ? Admit Type: Outpatient ? Age: 66 ? Gender: Female ? Attending MD: Krysta Gallagher MD ? Procedure: ?Colonoscopy Indications: ?Hematochezia, Personal history of colonic polyps Providers: ?Krysta Mesa MD Referring MD: ? Jacquie Schmitt MD Medicines: ?Fentanyl 150 micrograms IV, Midazolam 4 mg IV, ?Atropine 0.6 mg IV Complications: ?No immediate complications Procedure: ?Pre-Anesthesia Assessment: ?- Prior to the [...] were verified by the physician ?in the procedure room. Mental Status Examination: ?alert and oriented. Airway Examination: normal ?oropharyngeal airway and neck mobility. Respiratory ?Examination: clear to auscultation. CV Examination: ?normal. ASA Grade Assessment: I - A normal, healthy ?patient. After reviewing the risks and benefits, ?the patient was deemed in satisfactory condition to ?undergo the procedure. The anesthesia plan was to ?use moderate sedation / analgesia (conscious ?sedation). Immediately prior to administration of ?medications, the patient was re-assessed for ?adequacy to receive sedatives. The heart rate, ?respiratory rate, oxygen saturations, blood ?pressure, adequacy of pulmonary ventilation, and ?response to care were monitored throughout the ?procedure. The physical status of the patient was ?re-assessed after the procedure. ?After obtaining informed consent, the colonoscope ?was passed under direct vision. Throughout the ?procedure, the patient's blood pressure, pulse, and ?oxygen saturations were monitored continuously. The ?Colonoscope was introduced through the anus and ?advanced to the cecum, identified by appendiceal ?orifice & ileocecal valve. The colonoscopy was ?performed without difficulty. The patient tolerated ?the procedure well. The quality of the bowel ?preparation was good. ? Findings: ? The digital rectal ex am was normal. Four benign appearing sessile polyps ? were found in the rectum. The polyps were 3 mm in siz e. These were ? biopsied with a hot f orceps for histology. The sigmoid colon, descending ? colon, splenic flexure, transverse colon, hepatic f lexure, ascending ? colon, cecum, appendiceal orifice and ile ocecal valve appeared normal. ? Internal hemorrhoids were found during retroflexion a nd were mild. ? Impression: ? - Four 3 mm polyps in the r ectum (benign ?appearing). Resected and retrieved. This was ?biopsied. ?- The sigmoid colon, descending colon, splenic ?flexure, transverse colon, hepatic flexure, ?ascending colon, cecum, appendiceal orifice and ?ileocecal valve are n ormal. ?- Internal hemorrhoid s. Recommendation: ? - I will call patient re: krys morgan report. ?- Repeat colonoscopy in 4 years for surveillance. ?- Return to primary care physician PRN. ? Jhonny Mesa M.D Krysta Mesa MD Signed Date: 07/03/2012 10:10:42 AM Number of Addenda: 0 I was physically present for the entire viewing portion of t he exam. Note Initiated On: 07/03/2012 9:05:08 AM Scope Withdrawal Time: 0 hours 6 minutes 53 seconds Total Procedure Duration: 0 hours 29 minutes 35 seconds Specimen (Source) Anatomical Collection Method Collection Time Re ceived Time Location / / Volume Laterality 07/03/2012 9:05 AM CDT Jacquie Schmitt MD PROCEDURES Performing Organization Address City/State/ZIP Code Phon e Number RADIOLOGY RESULTS documented in this encounter Visit Diagnoses Diagnosis Colon polyps - Primary Benign neoplasm of colon documented in this encounter Active and Recently Administered Medications Times are shown in CDT. PRN Medication Order 07/01/2012 07/02/2012 07/03/2012 atropine injection (CANCELED) 09 32 (Given - Provider: Krysta Mesa MD) PRN, Starting on Tue07/03/12 at 0932, Intra-procedure fentaNYL (SUBLIMAZE) injection (CANCELED) 0932 (Given - Provider: Krysta Mesa MD)0947 (Given - Provider: Teresa Gomes RN) PRN, moderate to severe pain, Starting on Tue07/03/12 at 093 2, Intra-procedure midazolam (VERSED) injection (CANCELED) 0932 (Given - Provider: Krysta Mesa MD)0933 (Given - Provider: Krysta Mesa MD)0938 (Given - Provider: Teresa Gomes RN) PRN, anxiety, Starting on Tue07/03/12 at 0932, Intra-procedure documented in this encounter Care Teams Cube Machine Tender Relationship Specialty Start Date End Date Jacquie Schmitt MD PCP - General 11/24/99 02/11/[address], [address] [place] [address] documented as of this encounter
--- OUTSIDE RECORDS SUMMARY | 2022-08-18 09:32 | XMS_ITS | Encounter Summary ---
:1945 Author Organization [facility] Address [address] [place] [address]. [place] [address] Care Team Providers Name Role Phone Jacquie Schmitt MD Primary Care Provider Reason for Visit (Routine) - Closed Specialty Diagnoses / Procedures Referred By Contact Refer red To Contact Radiology Diagnoses IVP W/TOMOS* Procedure Notes: Calculus of ureter. Rh Xray Procedures RADIOLOGY [address] [place], [place] [address] Phone: Fax: Referral ID Status Reason Start Date Expiration Date Visits Requ ested Visits Authorized [id number] Closed 05/02/2012 05/02/2013 1 1 Encounter Details Date Type Department Care Team Description 05/15/2012 Hospital Encounter [facility] Horacio Schmitt ra, MD [address], [facility] [address] [place], [place] [phone] Ureteral stone [facility] Jared Jackson MD [facility] [address] [place], [place] [id number] [address] [place] [address] Social History Tobacco Use Types Packs/Day Years Used Date Smoking Tobacco: Former Cigarettes Quit : 11/07/1995 Smokeless Tobacco: Never Alcohol Use Standard Drinks/Week Comments Yes 0 (1 standard drink = 0.6 oz pure alcoho l) rare Sex Assigned at Date Recorded 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 hypertension, benign CALCIUM 600 + D 600-200 0 0 03/06/2004 1 MG-IU OR TABS Cholecalciferol (VITAMIN D3 Take by mouth 0 2012 PO) daily. 400 IU hydrochlorothiazide Take 0.5 tablets 45 tablet 1 02/26/2012 2012 (HYDRODIURIL) 25 MG by mouth daily. tabletIndications: Essential hypertension, benign ONE-A-DAY WOMENS 50 PLUS PO 1 TABLET DAILY 0 07/31/2014 TABS TRETINOIN 0.1 % EX None Entered 0 06/08 CREAIndications: Other acne hydrocortisone (ANUSOL-HC) Place rectally 2 30 g 1 2012 2.5 % rectal times daily. creamIndications: Anal fissure METRONIDAZOLE 1 % EX None Entered 0 GELIndications: Other acne oxybutynin (DITROPAN) 5 MG Take 5 mg by 0 06/08/2012 tabletIndications: Urge mouth 3 times incontinence daily. POTASSIUM CHLORIDE 10 MEQ OR 3-4 bananas/week 0 0 0 03/13/2007 06/08/2012 TBCRIndications: Essential hypertension, benign documented as of this encounter Progress Notes Jared Jackson MD - 05/17/2012 8:04 PM CDT documented in this encounter Miscellaneous Notes Initial Assessments - Marleni Provider - 05/16/2012 11:28 PM CDT documented in this encounter Plan of Treatment Not on filedocumented as of this encounter Procedures Procedure Name Priority Date/Time Associated Diagnosis Comme nts XR IVP INCL Routine 05/15/2012 11:47 AM Ureteral stone Result s for this TOMOGRAMS CDT procedure are i n the results section. documented in this encounter Results X-ray IVP with tomograms (05/15/2012 11:47 AM CDT) Anatomical Region Laterality Modality Computed Radiography Specimen (Source) Anatomical Collection Method Collection Time Re ceived Time Location / / Volume Laterality 05/15/2012 11:47 AM CDT Impressions 05/16/2012 10:25 AM CDT IVP ??May 15, 2012 11:47:00 AM HISTORY: Ureteral calculus. COMPARISON: None. TECHNIQUE: 100 mL Optiray 320 injected. FINDINGS: ?? KUB: Multiple calculi in the lower pole of the right kidney with single calculus in the upper pole of the right kidney. Pelvic phleboliths. IVP: Both kidneys are normal in size and contour without evidence of mass. The calculi in the right kidney li e within the calyces of the upper pole and lower pole. Both kidneys and ureters are otherwise normal without evidence of obstruction. Bladder including post void film is negative. Remainder of the study is negative. IMPRESSION: 1. Nonobstructing right nephrolithiasis. 2. Remainder of the study is negative. Jared Jackson MD IMG DIAGNOSTIC IMAGING ORDER NILSON documented in this encounter Visit Diagnoses Diagnosis Ureteral stone Calculus of ureter documented in this encounter Administered Medications Inactive Administered Medications - up to 3 most recent administrations Medication Order MAR Action Action Date Dose Rate Site ioversol (OPTIRAY 320) iv Given by Other 05/15/2012 11:39 AM CDT 100 mLs solution 68% 100 mL 100 mL, Intravenous, ONCE, On 05/15/12 at 1145, For 1 dose documented in this encounter Care Teams Core Microarchitect Relationship Specialty Start Date End Date Jacquie Schmitt MD PCP - General 11/24/99 02/11/[address], [address] [place] [address] documented as of this encounter
--- OUTSIDE RECORDS SUMMARY | 2022-08-18 09:32 | XMS_ITS | Encounter Summary ---
:1945 Author Organization [place] Address [address] [place] [address] Care Team Providers Name Role Phone Liudmila David MD Primary Care Provider Unavailable Encounter Details Date Type Department Care Team Description 03/05/2014 Orders Only [facility] Liudmila David RESULTS Prateek Gatica MD (Primary Dx) [address] [place] [address] [address] [place] [address] Social History Tobacco Use Types Packs/Day Years Used Date Smoking Tobacco: Former Cigarettes Quit : 11/07/1995 Smokeless Tobacco: Never Alcohol Use Standard Drinks/Week Comments Yes 0 (1 standard drink = 0.6 oz pure alcoho l) rare Sex Assigned at Date Recorded 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 Liudmila David MD IMG CT ORDERABLES documented in this encounter Visit Diagnoses Diagnosis SCANNING RESULTS - Primary documented in this encounter Care Teams Housekeeping Department Worker Relationship Specialty Start Date End Date Liudmila David MD PCP - General Family Practice 02/12/14 1 12/06/19 documented as of this encounter
--- OUTSIDE RECORDS SUMMARY | 2022-08-18 09:32 | XMS_ITS | Encounter Summary ---
:1945 Author Organization [facility] Address [address] [place] [address] Care Team Providers Name Role Phone Liudmila David MD Primary Care Provider Unavailable Edgar Cunningham MD Unavailable Unavailable Liudmila David MD Unavailable Unavailable Bruna Meade Unavailable [phone] Liudmila David MD Unavailable Unavailable Bruna Meade Unavailable [phone] Heidy Mesa Primary Care Provider Reason for Visit Reason Comments Medication Refill Encounter Details Date Type Department Care Team Description 03/03/2014 Refill [facility] Liudmila David MD Medication Refill Physicians [address] [place] [phone] Social History Tobacco Use Types Packs/Day Years Used Date Smoking Tobacco: Former Cigarettes Quit : 11/07/1995 Smokeless Tobacco: Never Alcohol Use Standard Drinks/Week Comments Yes 0 (1 standard drink = 0.6 oz pure alcoho l) rare Sex Assigned at Date Recorded Female 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 Thanks Leora documented in this encounter Plan of Treatment Not on filedocumented as of this encounter Visit Diagnoses Diagnosis Essential hypertension, benign - Primary documented in this encounter Care Teams Abrasives Sales Representative Relationship Specialty Start Date End Date Liudmila David MD PCP - General Family Practice 02/12/14 1 12/06/19 Edgar Cunningham MD PCP - Assigned PCP 12/31/18 01/09/19 Heidy Mesa PCP - General Internal Medicine 10/07/[address] [address] Liudmila David MD Assigned PCP 10/12/15 Bruna Meade, Assigned PCP 02/03/20 03/01/20 [place] [address] [address] Liudmila David MD Assigned PCP 03/02/20 Bruna Meade, Assigned PCP 04/20/20 06/11/22 [place] [address] [address] documented as of this encounter
--- OUTSIDE RECORDS SUMMARY | 2022-08-18 09:32 | XMS_ITS | Encounter Summary ---
:1945 Author Organization [place] Address [address] [place] [address] Care Team Providers Name Role Phone Jacquie Schmitt MD Primary Care Provider Reason for Visit Auth/Cert - Closed Specialty Diagnoses / Procedures Referred By Contact Refer red To Contact Gastroenterology Diagnoses Rectal Bleed Rh Endoscopy Procedures COLONOSCOPY [address] [place] [address] Phone: Fax: Referral ID Status Reason Start Date Expiration Date Visits Requ ested Visits Authorized [id number] Closed 1 1 Encounter Details Date Type Department Care Team Description 07/03/2012 Surgery [facility] Krysta Mesa MD COLONOSCOPY with hot Endoscopy [place] XXX RETIRED XXX biopsy [address] [facility] [place] [address] [place], [place] [phone] (Wo rk) [address] [phone] Surgery Details Date/Time Status Location OR Service Patient Class Case Case Trauma Class Type Case? 07/03/12 9:30 Posted [facility] A Gastroenterology Outpatient AM Panel 1 Procedure LRB Anes Op Region Wound Class Commen ts COLONOSCOPY with N/A Conscious Rectum II-Clean COLONOSC OPY with hot biopsy Sedation Contaminated hot biopsy Surgeon Surgeon Role Service Panel Krysta Mesa MD Primary Gastroenterology 1 Special Needs Ref: Dr Jacquie Schmitt documented in this encounter Social History Tobacco Use Types Packs/Day Years Used Date Smoking Tobacco: Former Cigarettes Quit : 11/07/1995 Smokeless Tobacco: Never Alcohol Use Standard Drinks/Week Comments Yes 0 (1 standard drink = 0.6 oz pure alcoho l) rare Sex Assigned at Date Recorded Female 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 Hcl pap smear 11/2008 Carlos Currans ??? Colonoscopy 06/2012 scheduled ??? Extracorporeal shock [...] documented in this encounter Nursing Notes Nate Oh, RN - 06/29/2012 2:35 PM CDT History obtained from which states she has given [facility] all rights to talk to about her [...] Component Value Ref Test Analysis Performed At [facility] Range Method Time Signature Copath Report Patient Name: SHAHNAZ PHELPS MR#: [id number] Specimen #: [id number] Collected: 07/03/2012 Received: 07/03/2012 Reported: 07/04/2012 15:44 [...] entirety. ??SABRA/ksenia MICROSCOPIC: Microscopic examination is performed. /ksenia ROSADO/07-04-12 TESTING LAB LOCATION: [facility] [address] [place], [place] ??[address] COLLECTION SITE: Client: [facility] Location: RHENDO (R) Specimen Anatomical Collection Method Collection Time Receive d Time (Source) Location / / Volume Laterality 07/03/2012 10:02 07/03/2012 AM CDT 11:19 AM CDT Krysta Mesa MD LAB - [facility] Performing Organization Address City/State/ZIP Code Phon e Number COPATH COLONOSCOPY (07/03/2012 9:05 AM CDT) [facility] gist Method Time Signature COLONOSCOPY [facility] RAD IOLOGY RESULTS Patient Name: Shahnaz adams [...] Return to primary care physician PRN. ? R Bonita Brunson Krysta Mesa MD Signed Date: 07/03/2012 10:10:42 [...] MAR Action Action Date Dose Rate Site atropine injection Given 07/03/2012 9:32 AM CDT 0.6 mg PRN, Starting on Tue07/03/12 at 0932, Intra-procedure fentaNYL (SUBLIMAZE) injection Given 07/03/2012 9:47 AM CDT 50 mcg PRN, moderate to severe pain, Starting on Tue07/03/12 at 0932, Intra-procedure Given 07/03/2012 9:32 AM CDT 100 mcg midazolam (VERSED) injection Given 07/03/2012 9:38 AM CDT 1 mg PRN, anxiety, Starting on Tue07/03/12 at 0932, Intra-procedure Given 07/03/2012 9:33 AM CDT 1 mg Given 07/03/2012 9:32 AM CDT 2 mg documented in this encounter Active and Recently [...] Krysta Mesa MD)0938 (Given - Provider: Teresa Gomes, RN) PRN, anxiety, Starting on Tue07/03/12 at 0932, Intra-procedure documented in this encounter Care Teams Welder/Installer Relationship Specialty Start Date End Date Jacquie Schmitt MD PCP - General 11/24/99 02/11/[address], [address] [place] [address] documented as of this encounter
--- OUTSIDE RECORDS SUMMARY | 2022-08-18 09:32 | XMS_ITS | Encounter Summary ---
:1945 Author Organization [place] Address [address] [place] [address] Care Team Providers Name Role Phone Jacquie Schmitt MD Primary Care Provider Encounter Details Date Type Department Care Team Description 01/25/2014 Orders Only [facility] Jacquie Schmitt, VANDANA CTING RESULTS Physicians (Primary Dx) [address] [address] , [facility] [address] [address] [phone] Social History Tobacco Use Types Packs/Day Years Used Date Smoking Tobacco: Former Cigarettes Quit : 11/07/1995 Smokeless Tobacco: Never Alcohol Use Standard Drinks/Week Comments Yes 0 (1 standard drink = 0.6 oz pure alcoho l) rare Sex Assigned at Date Recorded Female 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 documented in this encounter Results Mammo Screening digital (bilat) (01/24/2014) P athologist Signature MAMMOGRAM Anatomical Region Laterality Modality Breast Bilateral Other Narrative 01/24/2014 [facility] * Fax: [phone] [address], [place] [address] [place] [address] Age: 68 Y Work Phone: Dept No.: [id number] SHAHNAZ [place] : 1945 Ho md Chart # Req. Phys: Liudmila David MD Clinic M RN: Clinic: [facility] c#: [id number] Exam: BILAT SCREEN MAMMOGRAM DIGITAL Exa m Date: 01/24/2014 SCREENING MAMMOGRAM, BILATERAL, DIGITAL w/ CAD - January 24, 2014 BREAST SYMPTOMS: None reported. COMPARISON: 02/13/2013, 02/10/2010. PARENCHYMAL PATTERN: Scattered fibroglan dular densities. COMMENTS: No findings of suspicion for m alignancy. The patient has had a prior left needle biopsy. IMPRESSION: BI-RADS 2, BENIGN. RECOMMENDATION: Recommend routine annual screening mammography. Exam results letter mailed to patient. /dp Performed by: LEA Transcribed By: MATT on: 01/24/2014 11:15 AM CDT Finalized By: MARQUISE ALEXANDER M.D. on: 3:43 PM CDT Dictated By: MARQUISE ALEXANDER M.D. Signed b y: [place] Thank You for using [facility] age 1 of 1 Jacquie Schmitt MD IMG MAMMOGRAPHY ORDERABLES documented in this encounter Visit Diagnoses Diagnosis ABSTRACTING RESULTS - Primary documented in this encounter Care Teams Diesel Maintenance Technician Relationship Specialty Start Date End Date Jacquie Schmitt MD PCP - General 11/24/99 02/11/14 [address] [facility] [address] [place] [address] documented as of this encounter
--- OUTSIDE RECORDS SUMMARY | 2022-08-18 09:32 | XMS_ITS | Encounter Summary ---
:1945 Author Organization [place] Address [address] [place] [address] Care Team Providers Name Role Phone Jacquie Schmitt MD Primary Care Provider Liudmila David MD Primary Care Provider Unavailable Encounter Details Date Type Department Care Team Description 01/24/2014 Orders Only [facility], Provider SCAN ARIN RESULTS Physicians (Primary Dx) [address] [place] [phone] Social History Tobacco Use Types Packs/Day Years Used Date Smoking Tobacco: Former Cigarettes Quit : 11/07/1995 Smokeless Tobacco: Never Alcohol Use Standard Drinks/Week Comments Yes 0 (1 standard drink = 0.6 oz pure alcoho l) rare Sex Assigned at Date Recorded Female 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 documented in this encounter Results CT Adrenal Glands Biopsy (03/26/2014) Anatomical Region Laterality Modality Abdomen/Pelvis Computed Tomography Narrative This result has an attachment that is no t available. Provider Abstract IMG CT ORDERABLES documented in this encounter Visit Diagnoses Diagnosis SCANNING RESULTS - Primary documented in this encounter Care Teams Breakfast And Room Attendant Relationship Specialty Start Date End Date Jacquie Schmitt MD PCP - General 11/24/99 02/11/14 [address] [facility] 100 [place], [place] [phone] Liudmila David MD PCP - General Family Practice 02/12/14 1 12/06/19 documented as of this encounter
--- OUTSIDE RECORDS SUMMARY | 2022-08-18 09:32 | XMS_ITS | Encounter Summary ---
:1945 Author Organization [place] Address [address] [place] [address] Care Team Providers Name Role Phone Jacquie Schmitt MD Primary Care Provider Reason for Visit Reason Onset Date Comments Medication Question 06/02/2012 Encounter Details Date Type Department Care Team Description 06/02/2012 Telephone [facility] Jacquie Schmitt MD Medication Question Physicians [address] [facility] [address] [address] [address] [place] [address] [phone] (Wo rk) Social History Tobacco Use Types Packs/Day Years Used Date Smoking Tobacco: Former Cigarettes Quit : 11/07/1995 Smokeless Tobacco: Never Alcohol Use Standard Drinks/Week Comments Yes 0 (1 standard drink = 0.6 oz pure alcoho l) rare Sex Assigned at Date Recorded Female 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 Use of betablocker reviewed with and patient/ elective decision/ they will proceed with 14 day use. Telephone Encounter - Bethany Abdi - 06/02/2012 9:50 AM CDT Spoke with pt's again and he was not happy with that answer. He states that they had previously called [facility] and was told to call PCP. He is also requesting to know why pt needs to be on a 3rd bp med. Telephone Encounter - Jacquie Schmitt MD - 06/02/2012 9:42 AM CDT This is a question for [facility] and the anesthesiology specialists. Depending on the time of her surgery, they allow fluids and medications but usually have a time period where she should be NPO of everything. Direct question there. It is not an issue for me either way. Telephone Encounter - Bethany Abdi - 06/02/2012 9:35 AM CDT Spoke with pt's , He wants to know if she should take bp pills the am of the surgery? Surgeoninformed pt that she cant drink water that morning/day. Telephone Encounter - Jacquie Schmitt MD - 06/02/2012 9:22 AM CDT She should take all 3/ the new one in the evening for 2 weeks/ then stop it/ Telephone Encounter - Bethany Abdi - 06/02/2012 9:16 AM CDT Pt called wanting to verify if she is supposed to stop her other 2 bp meds when she is taking the atenolol for the 14 days? She is currently on amlodipine and hctz. Please review. [phone]-[phone] documented in this encounter Plan of Treatment Not on filedocumented as of this encounter Visit Diagnoses Not on filedocumented in this encounter Care Teams High Lead Yarder Relationship Specialty Start Date End Date Jacquie Schmitt MD PCP - General 11/24/99 02/11/14 [address] [facility] 100 [place] [address] documented as of this encounter
--- OUTSIDE RECORDS SUMMARY | 2022-08-18 09:32 | XMS_ITS | Encounter Summary ---
:1945 Author Organization [place] Address [address] [place] [address] Care Team Providers Name Role Phone Jacquie Schmitt MD Primary Care Provider Reason for Referral - Closed Specialty Diagnoses / Procedures Referred By Contact Refer red To Contact Diagnoses Anal fissure Jacquie Schmitt MD [address], [address] [place] [address] Referral ID Status Reason Start Date Expiration Date Visits Requ ested Visits Authorized [id number] Closed 03/28/2012 09/24/2012 1 1 Reason for Visit Reason Comments Rectal Problem Encounter Details Date Type Department Care Team Description 03/27/2012 Office Visit [facility] Jacquie Schmitt, Anal f issure (Primary Dx); Physicians Food poisoning; [address], [place]culus of kidney; [address] [place] [phone] Social History Tobacco Use Types Packs/Day Years Used Date Smoking Tobacco: Former Cigarettes Quit : 11/07/1995 Smokeless Tobacco: Never Alcohol Use Standard Drinks/Week Comments Yes 0 (1 standard drink = 0.6 oz pure alcoho l) rare Sex Assigned at Date Recorded Female 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 documented as of this encounter Last Filed Vital Signs Vital Sign Reading Time Taken Comments Blood Pressure 114/78 03/27/2012 11:12 AM CDT Pulse 80 03/27/2012 11:12 AM CDT Temperature 37.1 ??C (98.8 ??F) 03/27/2012 11:12 AM CDT Respiratory Rate 12 03/27/2012 11:12 AM CDT Oxygen Saturation - - Inhaled Oxygen Concentration - - Weight 91.2 kg (201 lb) 03/27/2012 11:12 AM CDT Height 170.2 cm (5' 7) 03/27/2012 11:12 AM CDT Body Mass Index 31.48 03/27/2012 11:12 AM CDT documented in this encounter Progress Notes Jacquie Schmitt MD - 03/27/2012 11:51 AM CDT SUBJECTIVE: 66 year old female complaining of going out to eat a fish carias last Tuesday night and thenawakening later that night with nausea, emesis and 4-5 liquid stools for 8 hours(s). The patient describes with her last liquid stool she noticed a 1/2 inch diameter blood clot in the toilet and light blood on her toilet paper after wiping. She has not had a bowel movement for 48 hoursand is eating light food and drinking fluids without any symptoms/ mild anorexia remains. The patient denies a history of abdominal pain, urinary symptoms or fever. Smoking history: No. Relevant past medical history: positive for colon polyps and due next year for repeat colonoscopy with Dr Mesa. She has been noted to have microhematuria and Urology consult has revealed kidney stones with a urge incontinence issue. She has been finding relief with ditropan and will be seeing the specialists in the next few weeks for follow up of this finding OBJECTIVE: The patient appears healthy, alert, no distress, cooperative and smiling. EARS: negative NOSE/SINUS: Nares normal. Septum midline. Mucosa normal. No drainage or sinus tenderness. THROAT: normal NECK:Neck supple. No adenopathy. Thyroid symmetric, normal size,, Carotids without bruits. CHEST: Clear ABD: The abdomen is soft without tenderness, guarding, mass or organomegaly. Bowel sounds are normal. No CVA tenderness or inguinal adenopathy noted. RECTAL: healing anal fissure without evidence of bleeding. ASSESSMENT:565.0 Anal fissure (primary encounter diagnosis) Comment: diagnosis reviewed and handout given/ she is very concerned about this issue Plan: hydrocortisone (ANUSOL-HC) 2.5 % rectal cream, GASTROENTEROLOGY ADULT REFERRAL +/- PROCEDURE Citrucel/ Metamucil with 6-8 glasses water daily. Keep area clean with wet wipes or Tucks. PROCTOFOAM HC FOAM 1-1 % RE, 1 appl per rectum after BM, D: 1, R: 0. Recheck with Dr Mesa and her colonoscopy. 005.9M Food poisoning Plan: reviewed this diagnosis/ BRAT diet/ monitor for complete resolution. 592.0 Calculus of kidney Plan: I have reviewed the patient's medical history in detail and updated the computerized patient record. 788.31 Urge incontinence Plan: oxybutynin (DITROPAN) 5 MG tablet I have reviewed the patient's medical history in detail and updated the computerized patient record. documented in this encounter Nursing Notes 03/27/2012 10:45 AM CDT >> EVE Barry SIMON Mon March 27, 2012 11:19 AM Patient is here for blood in her stool. Tuesday night she ate out and and then that night had stomachissues. BP done on the left arm, with a lg sized cuff. Pulse - regular My Chart - accepts CLASSIFICATION OF OVERWEIGHT AND OBESITY BY BMI Obesity Class BMI(kg/m2) Underweight < 18.5 Normal 18.5-24.9 Overweight 25.0-29.9 OBESITY I 30.0-34.9 II 35.0-39.9 EXTREME OBESITY III >40 Patient's BMI Body mass index is 31.48 kg/(m^2). http://hin.nhlbi.nih.gov/menuplanner/menu.cgi Questioned patient about current smoking habits. Pt. quit smoking some time ago. documented in this encounter Plan of Treatment Not on filedocumented as of this encounter Procedures Procedure Name Priority Date/Time Associated Diagnosis Comme jessica ZAshley GASTROENTEROLOGY ADULT REFERRAL Routine 04/11/2012 Anal f issure +/- PROCEDURE documented in this encounter Results GASTROENTEROLOGY ADULT REFERRAL +/- PROCEDURE (04/11/2012) Narrative This result has an attachment that is no t available. Jacquie Schmitt MD REFERRAL documented in this encounter Visit Diagnoses Diagnosis Anal fissure - Primary Food poisoning Food poisoning, unspecified Calculus of kidney Urge incontinence documented in this encounter Care Teams Product Line Manager Relationship Specialty Start Date End Date Jacquie Schmitt MD PCP - General 11/24/99 02/11/14 [address] [facility] 100 [place] [address] documented as of this encounter
--- OUTSIDE RECORDS SUMMARY | 2022-08-18 09:32 | XMS_ITS | Encounter Summary ---
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 Encounter Details Date Type Department Care Team Description 02/12/2013 Office Visit [facility] Jacquie Schmitt Routin e gynecological examination (Primary Dx); Physicians Breast screening, unspecified; [address], Essential hypertension, mark gn; [address] Calculus of kidney; [place], [place] OBESITY NOS ; [id number] Screening for diabetes mellitus; [phone] Screening for l ipoid disorders; (Work) Absence of menstruation Social History Tobacco Use Types Packs/Day Years Used Date Smoking Tobacco: Former Cigarettes Quit : 11/07/1995 Smokeless Tobacco: Never Alcohol Use Standard Drinks/Week Comments Yes 0 (1 standard drink = 0.6 oz pure alcoho l) rare Sex Assigned at Date Recorded Female 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 documented as of this encounter Last Filed Vital Signs Vital Sign Reading Time Taken Comments Blood Pressure 120/80 02/12/2013 10:21 AM CDT Pulse 76 02/12/2013 10:21 AM CDT Temperature 36.8 ??C (98.2 ??F) 02/12/2013 10:21 AM CDT Respiratory Rate 12 02/12/2013 10:21 AM CDT Oxygen Saturation - - Inhaled Oxygen Concentration - - Weight 97.5 kg (215 lb) 02/12/2013 10:21 AM CDT Height 169.5 cm (5' 6.75) 02/12/2013 10:21 AM CDT Body Mass Index 33.93 02/12/2013 10:21 AM CDT documented in this encounter Patient Instructions Patient InstructionsJacquie Schmitt MD - 02/12/2013 10:48 AM CDT Total calcium intake of 1500 mgm/day, vitamin D 400-800IU/day and a regular weight bearing exercise program for prevention of osteoporosis is recommended treatment at this time. 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 Menopause at age 49. No bleeding, spotting, or discharge noted. 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 Hc [...] lower leg sclerosis/ laser therapy Current Outpatient Prescriptions: Glucosamine HCl POWD 2,000 mg daily. Calcium Citrate-Vitamin D (CITRACAL + D PO) Take by mouth. Vit D - 500iu Calcium 630mg Sodium 10mg takes two pills qd hydrochlorothiazide (HYDRODIURIL) 25 MG tablet Take 1 tablet by mouth daily. amLODIPine (NORVASC) 5 MG tablet Take 1 tablet by mouth daily. potassium chloride SA (KLOR-CON M20) 20 MEQ tablet Take 1 tablet by mouth daily. 4 bananas/week ONE-A-DAY WOMENS 50 PLUS PO TABS 1 TABLET DAILY METRONIDAZOLE 1 % EX GEL None Entered -- Imidazole Antifungals -- hives -- Penicillins -- hives Smoking status: Former Smoker Quit date: 11/07/1995 Smokeless tobacco: Alcohol Use: Yes 0.0 oz/week 0 drink(s) per week Comment: rare Review Of Systems Ears/Nose/Throat: negative Respiratory: No shortness of breath, dyspnea on exertion, cough, or hemoptysis Cardiovascular: hypertension well controlled Gastrointestinal: negative Genitourinary: negative OBJECTIVE: BP 120/80 Pulse 76 Temp(Src) 98.2 ??F (36.8 ??C) (Oral) Resp 12 Ht 1.695 m (5' 6.75) Wt 97.523 kg (215 lb) BMI 33.93 kg/m2 General appearance: healthy, alert, no distress, cooperative, smiling and over weight Skin: Skin color, texture, turgor normal. No rashes or lesions., positives: acne Ears: negative Nose/Sinuses: Nares normal. Septum midline. Mucosa normal. No drainage or sinus tenderness. Oropharynx: Lips, mucosa, and tongue normal. Teeth and gums normal. Neck: Neck supple. No adenopathy. Thyroid symmetric, normal size,, Carotids without bruits. Lungs: negative, Percussion normal. Good diaphragmatic excursion. Lungs clear Heart: negative, PMI normal. No lifts, heaves, or thrills. RRR. No murmurs, clicks gallops or rub Breasts: Inspection negative. No nipple discharge or bleeding. No masses. Abdomen: Abdomen soft, non-tender. BS normal. No masses, organomegaly, positive findings: obese Pelvic: External genitalia and vagina normal. Bimanual and rectovaginal normal., positive findings: vaginal mucosa atrophy BMI : Body mass index is 33.93 kg/(m^2). ASSESSMENT:V72.31 Routine gynecological examination (primary encounter diagnosis) Plan: SPECIMEN HANDLING,DR OFF->LAB [49577], VENIPUNC FNGR,HEEL,EAR [80954], HEMOGLOBIN [02683.000] Total calcium intake of 1500 mgm/day, vitamin D 400-800IU/day and a regular weight bearing exerciseprogram for prevention of osteoporosis is recommended treatment at this time. V76.10 Breast screening, unspecified Plan: Mammo Screening digital (bilat), RADIOLOGY REFERRAL Every 1-2 years 401.1 Essential hypertension, benign Plan: SPECIMEN HANDLING, OFF->VILLA [40160], VENIPUNC FNGR,HEEL,EAR [[id number]], COMPREHENSIVE METABOLIC PANEL, amLODIPine (NORVASC) 5 MG tablet, hydrochlorothiazide (HYDRODIURIL) 25 MG tablet, OFFICE/OUTPT VISIT,EST,LEVL II See below/recheck 6 months 592.0 Calculus of kidney Plan: SPECIMEN HANDLING, OFF->VILLA [36377], VENIPUNC FNGR,HEEL,EAR [[id number]], COMPREHENSIVE METABOLIC PANEL, hydrochlorothiazide (HYDRODIURIL) 25 MG tablet I have reviewed the patient's medical history in detail and updated the computerized patient record. 278.00 OBESITY NOS Plan: Glucosamine HCl POWD, SPECIMEN HANDLING, OFF->VILLA [02767], VENIPUNC FNGR,HEEL,EAR [[id number]], LIPID PANEL, COMPREHENSIVE METABOLIC PANEL Weight loss encouraged V77.1 Screening for diabetes mellitus Plan: SPECIMEN HANDLING, OFF->VILLA [06802], VENIPUNC FNGR,HEEL,EAR [48762], COMPREHENSIVE METABOLIC PANEL V77.91 Screening for lipoid disorders Plan: SPECIMEN HANDLING, OFF->VILLA [21187], VENIPUNC FNGR,HEEL,EAR [07638], LIPID PANEL 626.0 Absence of menstruation Plan: DEXA hip/pelvis/spine* WNL Dx: 1) Pap smear, mammogram 2) Lipids at appropriate intervals PE: Reviewed health maintenance including diet, regular exercise, estrogen replacement and periodic exams. SUBJECTIVE: Shahnaz Glasgow is an 67 year old female who presents for evaluation of hypertension. She indicates that she is feeling well and denies any symptoms referable to her elevated blood pressure. Specifically denies chest pain, palpitations, dyspnea, orthopnea, PND or peripheral edema. Current medication regimen is as listed below. Patient denies any side effects of medication. Family history: positive for hypertension and kidney stones Age at onset of elevated blood pressure: 60 Cardiovascular risk factors: family history, hypertension and obesity Use of agents associated with hypertension: none History of renal disease: positive for kidney stones History of flank trauma: negative Current Outpatient Prescriptions Medication Sig Dispense Refill ??? Glucosamine HCl POWD 2,000 mg daily. ??? amLODIPine (NORVASC) 5 MG tablet Take 1 tablet by mouth daily. ??? hydrochlorothiazide (HYDRODIURIL) 25 MG tablet Take 1 tablet by mouth daily. ??? Calcium Citrate-Vitamin D (CITRACAL + D PO) Take by mouth. Vit D - 500iu Calcium 630mg Sodium 10mg takes two pills qd ??? potassium chloride SA (KLOR-CON M20) 20 MEQ tablet Take 1 tablet by mouth daily. 4 bananas/week ??? ONE-A-DAY WOMENS 50 PLUS PO TABS 1 TABLET DAILY ??? METRONIDAZOLE 1 % EX GEL None Entered Allergies Allergen Reactions ??? Imidazole Antifungals hives ??? Penicillins hives History Substance Use Topics ??? Smoking status: Former Smoker Quit date: 11/07/1995 ??? Smokeless tobacco: Never Used ??? Alcohol Use: 0.0 oz/week 0 drink(s) per week rare OBJECTIVE: BP 120/80 Pulse 76 Temp(Src) 98.2 ??F (36.8 ??C) (Oral) Resp 12 Ht 1.695 m (5' 6.75) Wt 97.523 kg (215 lb) BMI 33.93 kg/m2 Repeat BP R arm seated = 120/80 with large size cuff. Fundi: deferred Thyroid: normal to inspection and palpation Lungs: negative, Percussion normal. Good diaphragmatic excursion. Lungs clear Heart: negative, PMI normal. No lifts, heaves, or thrills. RRR. No murmurs, clicks gallops or rub Peripheral pulses: radial=4/4, femoral=4/4, popliteal=4/4, dorsalis pedis=4/4, ASSESSMENT: Essential hypertension Plan: 1) Medication: continue current medication regimen unchanged 2) Dietary sodium restriction 3) Regular aerobic exercise 4) Recheck in 6 months, sooner should new symptoms or problems arise. Patient Education: Reviewed risks of hypertension and principles of treatment. documented in this encounter Nursing Notes 02/12/2013 10:15 AM CDT >> EVE SIMON Mon Feb 12, 2013 10:23 AM Patient is here for a full physical exam and pap. Pre-Visit Screening : Immunizations : up to date Colonoscopy : is up to date Mammogram : is due and ordered today Cervical : is due and ordered today Asthma Action Plan/Test : n/a PHQ9/GAD7 : n/a BP done on the left arm, with a lg sized cuff. Pulse - regular My Chart - accepts CLASSIFICATION OF OVERWEIGHT AND OBESITY BY BMI Obesity Class BMI(kg/m2) Underweight < 18.5 Normal 18.5-24.9 Overweight 25.0-29.9 OBESITY I 30.0-34.9 II 35.0-39.9 EXTREME OBESITY III >40 Patient's BMI Body mass index is 33.93 kg/(m^2). http://hin.nhlbi.nih.gov/menuplanner/menu.cgi Questioned patient about current smoking habits. Pt. quit smoking some time ago. ETOH screening: Questions: 1-How often do you have a drink containing alcohol? 1 times per week(s) 2-How many drinks containing alcohol do you have on a typical day when you are Drinking? never 3- How often do you have 5 or more drinks on one occasion? never per never Have you ever: @None of the patient's responses to the CAGE screening were positive / Negative CAGE score@ documented in this encounter Miscellaneous Notes Addendum Note - James Regalado - 02/14/2013 11:19 AM CDT Addended by: JAMES REGALADO on: 02/14/2013 11:19 AM Modules accepted: Orders documented in this encounter Plan of Treatment Not on filedocumented as of this encounter Procedures Procedure Name Priority Date/Time Associated Diagnosis Comme nts MA SCREENING DIGITAL Routine 02/13/2013 Breast screening, Re sults for this BILATERAL unspecified procedure are i n the results section. RADIOLOGY REFERRAL Routine 02/13/2013 Breast screening, Resu lts for this unspecified procedure are i n the results section. LIPID PROFILE Routine 02/12/2013 11:03 OBESITY NOS Results for this AM CDT Screening for lipoid procedu re are in disorders the results section. COMPREHENSIVE Routine 02/12/2013 11:03 Essential Results fo r this METABOLIC PANEL AM CDT hypertension, be nign procedure are in OBESITY NOS the results Screening for section. diabetes mellitu s Calculus of kidney ZZCL AFF HEMOGLOBIN Routine 02/12/2013 10:57 Routine gynecolog ical Results for this AM CDT examination procedure are i n the results section. HC VENOUS COLLECTION Routine 02/12/2013 10:40 Routine gynecolo gical AM CDT examination Essential hypertension, be nign OBESITY NOS Screening for diabetes mellitu s Screening for lipoid disorders Calculus of kidney DX HIP/PELVIS/SPINE Routine 02/12/2013 Absence of menstruation documented in this encounter Results RADIOLOGY REFERRAL (02/13/2013) Narrative Rayna Greene - 02/13/2013 See imaging Jacquie Schmitt MD REFERRAL Mammo Screening digital (bilat) (02/13/2013) P athologist Signature MAMMOGRAM Anatomical Region Laterality Modality Breast Bilateral Other Narrative 02/13/2013 [facility] * Fax: [phone] [id number] [place] [address] Age: 67 Y Work Phone: Dept No.: [id number] SHAHNAZ GLASGOW : 1945 [facility] Chart # Req. Phys: Jacquie Schmitt Clinic MRN: Clinic: [facility] c#: [id number] Exam: BILAT SCREEN MAMMOGRAM DIGITAL Exa m Date: 02/13/2013 SCREENING MAMMOGRAM, BILATERAL, DIGITAL w/ CAD - Feb 13, 2013 11:29:00 AM BREAST SYMPTOMS: None reported. COMPARISON: 02/22/12, 05/08/07 PARENCHYMAL PATTERN: Scattered fibroglan dular densities. COMMENTS: No findings of suspicion for m alignancy. IMPRESSION: BI-RADS 1, NEGATIVE. RECOMMENDATION: Annual screening mammogr aphy. Exam results letter mailed to patient. Performed by: LEA Transcribed By: MATT on: 02/13/2013 3:37 P M CDT Finalized By: ANEUDY MORSE M.D. on: 07/2013 3:37 PM CDT Dictated By: LITO Holt ANEUDY smith by: SGT Thank You for using [facility] P age 1 of 1 Jacquie Schmitt MD IMG MAMMOGRAPHY ORDERABLES (ABNORMAL) COMPREHENSIVE METABOLIC PANEL (02/12/2013 11:03 AM CDT) P athologist Signature Glucose 107 (H) 65 - 99 [facility] Comment: ? Fasting reference interv al Urea Nitrogen 21 7 - 25 mg/dL [facility] Creatinine 0.77 0.50 - 0.99 mg/dL [facility] Comment: For patients >49 years of age, the refer ence limit for Creatinine is approximately 13% high er for people identified as -Dutch. GFR Estimate 80 > OR = 60 [facility] mL/min/1.73m2 EGFR 93 > OR = 60 [facility] Dutch mL/min/1.73m2 BUN/Creatinine NOT APPLICABLE 6 - 22 (calc) [facility] Ratio Sodium 142 135 - 146 mmol/L [facility] Potassium 3.8 3.5 - 5.3 mmol/L [facility] Chloride 103 98 - 110 mmol/L [facility] Carbon Dioxide 26 19 - 30 mmol/L [facility] Calcium 10.4 8.6 - 10.4 mg/dL [facility] Protein Total 7.0 6.1 - 8.1 g/dL [facility] Albumin 4.8 3.6 - 5.1 g/dL [facility] Globulin 2.2 1.9 - 3.7 g/dL [facility] Calculated (calc) A/G Ratio 2.2 1.0 - 2.5 (calc) [facility] Bilirubin Total 0.8 0.2 - 1.2 mg/dL [facility] Alkaline 85 33 - 130 U/L [facility] Phosphatase AST 21 10 - 35 U/L [facility] ALT 23 6 - 40 U/L [facility] Specimen Anatomical Collection Method Collection Time Receive d Time (Source) Location / / Volume Laterality Blood specimen 02/12/2013 11:03 3 3:44 (specimen) AM CDT AM CDT Resulting Agency Comment Performing Organization Information: ? CB ? [facility] ? [address] [facility] [place] [address] ? Juanito Hardy M.D. Jacquie Schmitt MD LAB - BLOOD ORDERABLES Performing Organization Address City/State/[facility] Code Phon e Number [facility] [address] [place], [place] [address] [facility] [address] [place], [place] [address] (ABNORMAL) LIPID PANEL (02/12/2013 11:03 AM CDT) [facility] Method Time Signature Cholesterol 215 (H) 125 - 200 [facility] HDL Cholesterol 65 > OR = 46 [facility] Triglycerides 109 <150 [facility] mg/dL [facility] LDL Cholesterol 128 <130 [facility] Calculated mg/dL [facility] Comment: Desirable range <100 mg/dL for patients with CHD or diabetes and <70 mg/dL for diabetic suraj ents with known heart disease. Cholesterol/HDL Ratio 3.3 < OR = 5.0 (calc) [facility] Non HDL Cholesterol 150 mg/dL (calc) [facility] Comment: Target for non-HDL cholesterol is 30 mg/ dL higher than LDL cholesterol target. Specimen Anatomical Collection Method Collection Time Receive d Time (Source) Location / / Volume Laterality Blood specimen 02/12/2013 11:03 3 3:44 (specimen) AM CDT AM CDT Resulting Agency Comment Performing Organization Information: ? CB ? [facility] ? [address] [place] [address] ? Juanito Hardy M.D. Jacquie Schmitt MD LAB - BLOOD ORDERABLES Performing Organization Address City/State/ZIP Code Phon e Number [facility] [address] [place], [place] [address] [facility] [address] HEMOGLOBIN [[id number]] (02/12/2013 10:57 AM CDT) P athologist Signature Hemoglobin 13.5 12 - 16 [facility] GM/DL Jacquie Schmitt MD LABORATORY Performing Organization Address City/State/ZIP Code Phon e Number [facility] Dexa hip/pelvis/spine* (02/12/2013) Anatomical Region Laterality Modality Dexa Other Narrative This result has an attachment that is no t available. 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
--- OUTSIDE RECORDS SUMMARY | 2022-08-18 09:32 | XMS_ITS | Encounter Summary ---
:1945 Author Organization [facility] Address [address] [place] [address]. [place] [address] Care Team Providers Name Role Phone Jacquie Schmitt MD Primary Care Provider Encounter Details Date Type Department Care Team Description 06/08/2012 Anesthesia Event [facility] Mary Garcia MD [facility] PeriOP [address] [place] [id number] [place] [phone] Anesthesia Record Procedure Summary Procedure Name Responsible Anesthesia Start Anesthesia Stop Anesthesiologist Time Time RIGHT COMBINED 06/08/12 0714 06/08/12 0844 EXTRACORPOREAL SHOCK WAVE LITHOTRIPSY, CYSTOSCOPY, RIGHT STENT, LEFT RETROGRADE. (Right: Ureter) Events Date Time Event Comment 06/08/2012 0634 0714 An Start 0836 An Emergence Spontaneously br eathing. TV ~ 400 mL. Eyes open. Purposeful movem ents for LMA. LMA removed. Airway patent. 0844 An Stop Name Total ciprofloxacin (CIPRO) 400 mg in dextrose 5% 200 mL IVP B 400 mg Agents No agents on file. Blood No blood administrations on file. 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 documented in this encounter Social History Tobacco Use Types Packs/Day Years Used Date Smoking Tobacco: Former Cigarettes Quit : 11/07/1995 Smokeless Tobacco: Never Alcohol Use Standard Drinks/Week Comments Yes 0 (1 standard drink = 0.6 oz pure alcoho l) rare Sex Assigned at Date Recorded Female 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 Anesthesia type: General Patient Condition Respiratory Function (RR / SpO2 / Airway Patency): Satisfactory Cardiac Function (HR / Rhythm / BP): Satisfactory Mental Status: Satisfactory Temperature: Satisfactory Pain Control: Satisfactory PONV: None Beta-Cisco Therapy: None indicated Hydration Status: Satisfactory Last Vitals: Filed Vitals: 06/08/12 0838 06/08/12 0845 06/08/12 0900 BP: 135/77 135/78 131/70 Temp: 97.3 ??F (36.3 ??C) Resp: 14 16 16 SpO2: 100% 100% 95% Additional Comments: Anesthesia Preprocedure Evaluation - Orlando Garcia MD - 06/08/2012 6:33 AM CDT Anesthesia Evaluation history and physical reviewed . Pt has had prior anesthetic. Type: General History of anesthetic complications PONV ROS/MED HX Pulmonary: Neurologic: Cardiovascular: (+) hypertension . . METS/Exercise Tolerance: Hematologic: Musculoskeletal: GI/Hepatic: Renal: (+) chronic renal disease type: CRI Pt does not require dialysis Pt has no history of transplant Endo: Psychiatric: Infectious Disease: Other: Anesthesia Plan ASA Score 2 . Plan for General with Propofol induction. Maintenance will be TIVA. Routine analgesiaand antiemetics to be used for post-operative care. Anesthetic plan, risks, benefits and alternatives discussed with: patient or product support representative. Pre-operative diagnosis: * No surgery found * -- Imidazole Antifungals -- hives -- Penicillins -- hives Current Facility-Administered Medications on File Prior to Visit: ciprofloxacin (CIPRO) 400 mg in dextrose 5% 200 mL IVPB Current Outpatient Prescriptions on File Prior to Visit: atenolol (TENORMIN) 25 MG tablet, Take 1 tablet by mouth daily for 14 days. hydrocortisone (ANUSOL-HC) 2.5 % rectal cream, Place rectally 2 times daily. hydrochlorothiazide (HYDRODIURIL) 25 MG tablet, Take 0.5 tablets by mouth daily. amLODIPine (NORVASC) 5 MG tablet, Take 1 tablet by mouth daily. Cholecalciferol (VITAMIN D3 PO), Take by mouth daily. 400 IU ONE-A-DAY WOMENS 50 PLUS PO TABS, 1 TABLET DAILY METRONIDAZOLE 1 % EX GEL, None Entered TRETINOIN 0.1 % EX CREA, None Entered CALCIUM 600 + D 600-200 MG-IU OR TABS, Hemoglobin (GM/DL) Date Value Range Status 06/01/2012 13.8 Final Propofol, Zofran, and decadron . documented in this encounter Miscellaneous Notes Anesthesia Care Transfer Note - Gisela Farias APRN CRNA - 06/08/2012 8:38 AM CDT .Anesthesia Care Transfer Note Patient: Shahnaz Phelps Transferred to: PACU Patient vital signs: stable Airway: none Gisela Farias CRNA 06/08/2012 documented in this encounter Plan of Treatment Not on filedocumented as of this encounter Visit Diagnoses Not on filedocumented in this encounter Administered Medications Inactive Administered Medications - up to 3 most recent administrations Medication Order MAR Action Action Date Dose Rate Site ciprofloxacin (CIPRO) 400 mg in Given 06/08/2012 7:27 AM CDT 400 mg dextrose 5% 200 mL IVPB Routine, 400 mg, Intravenous, PRE-OP/PRE-PROCEDURE, Starting on Lizzette 06/08/12 at 0730, For 1 dose, Pre-procedure documented in this encounter Care Teams Endbander Relationship Specialty Start Date End Date Jacquie Schmitt MD PCP - General 11/24/99 02/11/[address], [facility] [address] [place] [address] documented as of this encounter
--- OUTSIDE RECORDS SUMMARY | 2022-08-18 09:32 | XMS_ITS | Encounter Summary ---
:1945 Author Organization [place] Address [address] [place] [address] Care Team Providers Name Role Phone Jacquie Schmitt MD Primary Care Provider Liudmila David MD Primary Care Provider Unavailable Encounter Details Date Type Department Care Team Description 03/16/2012 Orders Only [facility] Abstract, Provider SCAN ARIN RESULTS Physicians (Primary Dx) [address] [address] Social History Tobacco Use Types Packs/Day Years Used Date Smoking Tobacco: Former Cigarettes Quit : 11/07/1995 Smokeless Tobacco: Never Alcohol Use Standard Drinks/Week Comments Yes 0 (1 standard drink = 0.6 oz pure alcoho l) rare Sex Assigned at Date Recorded Female 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
--- OUTSIDE RECORDS SUMMARY | 2022-08-18 09:32 | XMS_ITS | Encounter Summary ---
:1945 Author Organization [facility] Address [address] [place] [address]. [place] [address] Care Team Providers Name Role Phone Jacquie Schmitt MD Primary Care Provider Reason for Visit Auth/Cert (Routine) - Closed Specialty Diagnoses / Procedures Referred By Contact Refer red To Contact Surgery Diagnoses RIGHT RENAL STONE Sh Periop Services Procedures COMBINED EXTRACORPOREAL SHOCK WAVE LITHOTRIPSY, CYSTOSCOPY, INSERT STENT URETER(S) [address] [place] [address] Phone: Referral ID Status Reason Start Date Expiration Date Visits Requ ested Visits Authorized [id number] Closed 1 1 Encounter Details Date Type Department Care Team Description 06/08/2012 Surgery [facility] [place], RIGHT COMB INED [place] PeriOP MD Jared EXTRACORPOREAL SHOCK WAVE Services [facility] LITHOTRIPSY, CYSTOSCOPY, [address] RIGHT S TENT, LEFT [address] [place] [address] [place] [id number] Surgery Details Date/Time Status Location OR Service Patient Case Class Case Tr auma Class Type Case? 06/08/12 7:20 AM Posted OR OR [facility] Urology Same Day Surgery Panel 1 Procedure LRB Anes Op Region Wound Class Commen ts RIGHT COMBINED Right General Ureter II-Clean RIGHT COMB INED EXTRACORPOREAL SHOCK Contaminated EX TRACORPOREAL SHOCK WAVE LITHOTRIPSY, WAVE LI THOTRIPSY, CYSTOSCOPY, RIGHT CYSTOSC OPY, RIGHT STENT, LEFT STENT, LEFT RETROGRADE. RETROGRADE. 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 [...] Schmitt MD - 06/01/2012 1:25 PM CDT [facility] [address] [place] [address]. [address] [facility] [address] PRE-OP EVALUATION: Today's date: 06/01/2012 Shahnaz Phelps (: 1945) presents for pre-operative evaluation assessment as requestedby Dr. Jackson. She requires evaluation and anesthesia risk assessment prior to undergoing surgery/procedure for treatment of Kidney Stones . Proposed procedure: Kidney Stone Removal Date of Surgery/ Procedure: 06/08/12 Time of Surgery/ Procedure: 6:50 am Hospital/Surgical Facility: [facility] Fax number for surgical facility: [phone] Primary Physician: Dr.L Schmitt Type of Anesthesia [...] and draped in a regular fashion. A 22-Danish cystoscope was placed per urethra. Evaluation of [...] she was positioned supine and then using [employer] shock wave lithotripter, we were able to [...] procedure, i.e., stent removal in the clinic. JARED JACKSON MD [place]: [id number] Name: SHAHNAZ PHELPS MRN: [id number] Account: [id number] : 1945 Procedure Date: 06/08/2012 Document: [id number] Brief Op Note - Jared Jackson MD - 06/08/2012 7:43 AM CDT UROLOGY OPERATIVE REPORT PREOP DIAGNOSIS Right kidney stones POSTOP DIAGNOSIS Same ANESTHESIA General PROCEDURE Procedure(s): Right COMBINED EXTRACORPOREAL SHOCK WAVE LITHOTRIPSY, CYSTOSCOPY, right INSERT STENT URETER(S), leftretrograde STAFF Lupe Reyes RN - [facility] [place] - Scrub Person SURGEON Surgeon(s): [...] ORDER NILSON Potassium (06/08/2012 6:45 AM CDT) P athologist Signature Potassium 3.8 3.4 - 5.3 [place] mmol/L [facility] Specimen Anatomical Collection Method Collection Time Receive d Time (Source) Location / / Volume Laterality Blood specimen 06/08/2012 6:45 AM 012 7:00 (specimen) CDT AM CDT Orlando Garcia MD LAB - BLOOD ORDERABLES Performing Organization Address City/State/ZIP Code Phon e Number M [facility] [address] [place] [address] [phone] [facility] documented in this encounter Visit Diagnoses [...] 812 at 1004 documented in this encounter Active and Recently Administered Medications Times are shown in CDT. Scheduled Medication Order 06/06/2012 06/07/2012 06/08/2012 ciprofloxacin (CIPRO) 400 mg in dextrose 5% 200 mL IVPB (COMPLET ED) 0727 (Given - Provider: Gisela Farias, RN CLINICAL REVIEW FOOT CASTER)0730 (Due) Routine, 400 mg, Intravenous, PRE-OP/PRE -PROCEDURE, Starting on Lizzette 812 at 0730, For 1 dose, Pre-procedure Continuous Medication Order 06/06/2012 06/07/2012 06/08/2012 lactated ringers infusion (CANCELED) 0904 (New Bag - Provider: Seema Eng, BETO) at 100 mL/hr, Intravenous, CONTINUOUS, C ontinue until IV catheter is weaned, PACU/Phase II, Starting on Lizzette 06/08/12 at 0845, Until Lizzette 06/08/12 at 1004 documented in this encounter Care Teams Traffic Control Technician Relationship Specialty Start Date End Date Jacquie Schmitt MD PCP - General 11/24/99 02/11/[address], [facility] 100 [place] [address] documented as of this encounter
--- OUTSIDE RECORDS SUMMARY | 2022-08-18 09:32 | XMS_ITS | Encounter Summary ---
:1945 Author Organization [place] Address [address] [place] [address] Care Team Providers Name Role Phone Jacquie Schmitt MD Primary Care Provider Liudmila David MD Primary Care Provider Unavailable Encounter Details Date Type Department Care Team Description 01/24/2014 Orders Only [facility] Abstract, Provider [address] [place] [address] [address] [place], [place] [address] Social History Tobacco Use Types Packs/Day Years Used Date Smoking Tobacco: Former Cigarettes Quit : 11/07/1995 Smokeless Tobacco: Never Alcohol Use Standard Drinks/Week Comments Yes 0 (1 standard drink = 0.6 oz pure alcoho l) rare Sex Assigned at Date Recorded Female 10/17/2018 7:14 PM 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
--- OUTSIDE RECORDS SUMMARY | 2022-08-18 09:32 | XMS_ITS | Encounter Summary ---
:1945 Author Organization [place] Address [address] [place] [address] Care Team Providers Name Role Phone Jacquie Schmitt MD Primary Care Provider Encounter Details Date Type Department Care Team Description 04/25/2012 Orders Only [facility] Angeles Mckeon Ure teral stone (Primary Imaging Dx) [address] [place] [address] Social History Tobacco Use Types Packs/Day Years Used Date Smoking Tobacco: Former Cigarettes Quit : 11/07/1995 Smokeless Tobacco: Never Alcohol Use Standard Drinks/Week Comments Yes 0 (1 standard drink = 0.6 oz pure alcoho l) rare Sex Assigned at Date Recorded Female 10/17/2018 7:14 PM RN APPEALS documented as of this encounter Plan of Treatment Not on filedocumented as of this encounter Visit Diagnoses Diagnosis Ureteral stone - Primary Calculus of ureter documented in this encounter Care Teams Emissions Technician Relationship Specialty Start Date End Date Jacquie Schmitt MD PCP - General 11/24/99 02/11/[address], [facility] [address] [place] [address] documented as of this encounter
--- OUTSIDE RECORDS SUMMARY | 2022-08-18 09:32 | XMS_ITS | Encounter Summary ---
:1945 Author Organization [place] Address [address] [place] [address] Care Team Providers Name Role Phone Liudmila David MD Primary Care Provider Unavailable Encounter Details Date Type Department Care Team Description 03/05/2014 Orders Only [facility], Provider SCAN ARIN RESULTS Physicians (Primary Dx) [address] [place] [address] Social History Tobacco Use Types Packs/Day Years Used Date Smoking Tobacco: Former Cigarettes Quit : 11/07/1995 Smokeless Tobacco: Never Alcohol Use Standard Drinks/Week Comments Yes 0 (1 standard drink = 0.6 oz pure alcoho l) rare Sex Assigned at Date Recorded Female 10/17/2018 7:14 PM ROUGH ROUNDER documented as of this encounter Plan of Treatment Not on filedocumented as of this encounter Procedures Procedure Name Priority Date/Time Associated Diagnosis Comme nts XR ABDOMEN 1 VIEW Routine 03/05/2014 SCANNING RESULTS documented in this encounter Results XR Abdomen 1 View (03/05/2014) Anatomical Region Laterality Modality Abdomen/Pelvis Other Narrative This result has an attachment that is no t available. Provider Abstract IMG DIAGNOSTIC IMAGING ORDER NILSON documented in this encounter Visit Diagnoses Diagnosis SCANNING RESULTS - Primary documented in this encounter Care Teams Sales Manager Prearranged Funerals Relationship Specialty Start Date End Date Liudmila David MD PCP - General Family Practice 02/12/14 1 12/06/19 documented as of this encounter
--- OUTSIDE RECORDS SUMMARY | 2022-08-18 09:32 | XMS_ITS | Encounter Summary ---
:1945 Author Organization [place] Address [address] [place] [address] Care Team Providers Name Role Phone Jacquie Schmitt MD Primary Care Provider Reason for Visit Reason Comments Pre-Op Exam Kidney Stone Related Encounter Details Date Type Department Care Team Description 06/01/2012 Office Visit 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 documented as of this encounter Last Filed Vital Signs Vital Sign Reading Time Taken Comments Blood Pressure 120/76 06/01/2012 1:20 PM CDT Pulse 72 06/01/2012 1:20 PM CDT Temperature 36.8 ??C (98.2 ??F) 06/01/2012 1:20 PM CDT Respiratory Rate 16 06/01/2012 1:20 PM CDT Oxygen Saturation - - Inhaled Oxygen Concentration - - Weight 91.6 kg (202 lb) 06/01/2012 1:20 PM CDT Height 169.5 cm (5' 6.75) 06/01/2012 1:20 PM CDT Body Mass Index 31.88 06/01/2012 1:20 PM CDT documented in this encounter Patient Instructions Patient InstructionsSchJacquie fragoso MD - 06/01/2012 2:00 PM CDT Start atenolol at bedtime for 2 weeks documented in this encounter Progress Notes Jacquie Schmitt MD - 06/01/2012 1:25 PM CDT [facility] [address] [place] [address]. [address] [place] [address] PRE-OP EVALUATION: Today's date: 06/01/2012 Shahnazragini Phelps (: 1945) presents for pre-operative evaluation assessment as requestedby Dr. Jackson. She requires evaluation and anesthesia risk assessment prior to undergoing surgery/procedure for treatment of Kidney Stones . Proposed procedure: Kidney Stone Removal Date of Surgery/ Procedure: 06/08/12 Time of Surgery/ Procedure: 6:50 am Hospital/Surgical Facility: [facility] Fax number for surgical facility: [phone] Primary Physician: Dr.L Schmitt Type of Anesthesia [...] physician. documented in this encounter Nursing Notes 06/01/2012 1:15 PM CDT >> EVE SIMON [facility] Jun 01, 2012 1:29 PM Patient is here for a pre-op phy. BP done on the right arm, with a lg sized cuff. Pulse - regular My Chart - accepts CLASSIFICATION OF OVERWEIGHT AND OBESITY BY BMI Obesity Class BMI(kg/m2) Underweight < 18.5 Normal 18.5-24.9 Overweight 25.0-29.9 OBESITY I 30.0-34.9 II 35.0-39.9 EXTREME OBESITY III >40 Patient's BMI Body mass index is 31.88 kg/(m^2). http://hin.nhlbi.nih.gov/menuplanner/menu.cgi Questioned patient about current smoking habits. Pt. quit smoking some time ago. documented in this encounter Plan of Treatment Not on filedocumented as of this encounter Procedures Procedure Name Priority Date/Time Associated Diagnosis Comme nts EKG 12-LEAD COMPLETE Routine 06/01/2012 1:56 PM Calculus of kidney Results for this W/READ - CLINICS CDT Other specified procedur e are in pre-operative the results examination section. ZZCL AFF HEMOGLOBIN Routine 06/01/2012 1:52 PM Calculus of kidney Results for this CDT Other specified procedure ar e in pre-operative the results examination section. HC VENOUS COLLECTION Routine 06/01/2012 1:43 PM Calculus of kidney CDT Other specified pre-operative examination documented in this encounter Results EKG 12-lead complete w/read - Clinics (06/01/2012 1:56 PM CDT) Narrative This result has an attachment that is no t available. Jacquie Schmitt MD ECG ORDERABLES Performing Organization Address City/State/ZIP Code Phon e Number [facility] HEMOGLOBIN ([facility]) (06/01/2012 1:52 PM CDT) P athologist Signature Hemoglobin 13.8 12 - 16 [facility] GM/DL Jacquie Schmitt MD LABORATORY Performing Organization Address City/State/ZIP Code Phon e Number [facility] documented in this encounter Visit Diagnoses Diagnosis Calculus of kidney - Primary Other specified pre-operative examinatio n documented in this encounter Care Teams Photographer'S Model Relationship Specialty Start Date End Date Jacquie Schmitt MD PCP - General 11/24/99 02/11/14 [address] , [facility] 100 [place] [address] documented as of this encounter
--- OUTSIDE RECORDS SUMMARY | 2022-08-18 09:32 | XMS_ITS | Encounter Summary ---
:1945 Author Organization [place] Address [address] [place] [address] Care Team Providers Name Role Phone Jacquie Schmitt MD Primary Care Provider Reason for Visit Reason Comments RECHECK blood pressure Encounter Details Date Type Department Care Team Description 2012 Office Visit [facility] Jacquie Schmitt Essent ial hypertension, benign (Primary Dx); Physicians OBESITY NOS; [address], Calculus of kidney; [address] [place] [address] [place] [address] [phone] Social History Tobacco Use Types Packs/Day Years Used Date Smoking Tobacco: Former Cigarettes Quit : 11/07/1995 Smokeless Tobacco: Never Alcohol Use Standard Drinks/Week Comments Yes 0 (1 standard drink = 0.6 oz pure alcoho l) rare Sex Assigned at Date Recorded Female 10/17/2018 7:14 PM 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 PRESIDENT 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 documented as of this encounter Last Filed Vital Signs Vital Sign Reading Time Taken Comments Blood Pressure 120/78 2012 3:33 PM CDT Pulse 64 2012 3:33 PM CDT Temperature 36.8 ??C (98.2 ??F) 2012 3:33 PM CDT Respiratory Rate 12 2012 3:33 PM CDT Oxygen Saturation - - Inhaled Oxygen Concentration - - Weight 93 kg (205 lb) 2012 3:33 PM CDT Height 168.9 cm (5' 6.5) 2012 3:33 PM CDT Body Mass Index 32.59 2012 3:33 PM CDT documented in this encounter Progress Notes Jacquie Schmitt MD - 2012 4:19 PM CDT SUBJECTIVE: Shahnaz Phelps is an 67 year old female who presents for evaluation of Hypertension and to review her recent therapy for kidney stones. She indicates that she is feeling well and denies any symptoms referable to her elevated blood pressure. Specifically denies chest pain, palpitations, dyspnea, orthopnea, PND or peripheral edema. Current medication regimen is as listed below. Patient denies any side effects of medication. Family history: positive for hypertension and cardiovascular disease Age at onset of elevated blood pressure: 60's Cardiovascular risk factors: family history, hypertension, obesity and sedentary life style Use of agents associated with hypertension: none History of renal disease: positive for kidney stones/ recent lithotripsy and recommendation to increase HCTZ to 25 mgm daily for 6 months. See Urology consult History of flank trauma: negative Current Outpatient Prescriptions Medication Sig Dispense Refill ??? Calcium Citrate-Vitamin D (CITRACAL + D PO) Take by mouth. Vit D - 500iu Calcium 630mg Sodium 10mg takes two pills qd ??? hydrochlorothiazide (HYDRODIURIL) 25 MG tablet Take 1 tablet by mouth daily. ??? amLODIPine (NORVASC) 5 MG tablet Take 1 tablet by mouth daily. ??? ONE-A-DAY WOMENS 50 PLUS PO TABS 1 TABLET DAILY ??? METRONIDAZOLE 1 % EX GEL None Entered Allergies Allergen Reactions ??? Imidazole Antifungals hives ??? Penicillins hives History Substance Use Topics ??? Smoking status: Former Smoker Quit date: 11/07/1995 ??? Smokeless tobacco: Never Used ??? Alcohol Use: 0.0 oz/week 0 drink(s) per week rare OBJECTIVE: BP 120/78 Pulse 64 Temp(Src) 98.2 ??F (36.8 ??C) (Oral) Ht 1.689 m (5' 6.5) Wt 92.987 kg (205 lb) BMI 32.59 kg/m2 Repeat BP R arm seated = 120/78 with regular size cuff. Fundi: deferred Thyroid: normal to inspection and palpation Lungs: negative, Percussion normal. Good diaphragmatic excursion. Lungs clear Heart: negative, PMI normal. No lifts, heaves, or thrills. RRR. No murmurs, clicks gallops or rub Peripheral pulses: radial=4/4, femoral=4/4, popliteal=4/4, dorsalis pedis=4/4, Abd; The abdomen is soft without tenderness, guarding, mass or organomegaly. Bowel sounds are normal. No CVA tenderness or inguinal adenopathy noted. BMI : Body mass index is 32.59 kg/(m^2). ASSESSMENT: Essential hypertension, benign (primary encounter diagnosis) Plan: hydrochlorothiazide (HYDRODIURIL) 25 MG tablet, amLODIPine (NORVASC) 5 MG tablet, potassium chloride SA (KLOR-CON M20) 20 MEQ tablet 1) Medication: continue current medication regimen unchanged and dosage change: HCTZ to 25 mgm per specialists 2) Dietary sodium restriction 3) Regular aerobic exercise 4) Recheck in 6 months fasting, sooner should new symptoms or problems arise. Patient Education: Reviewed risks of hypertension and principles of treatment. OBESITY NOS Plan: weight loss goals/ diet encouraged Calculus of kidney Plan: I have reviewed the patient's medical history in detail and updated the computerized patient record. At risk for falling Plan: FALL RISK ASSESSMENT negative documented in this encounter Nursing Notes 2012 3:30 PM CDT >> EVE Hunter 2012 3:42 PM Patient is here for a consult on some of her medicaiton from her Urologist. BP done on the right arm, with a lg sized cuff. Pulse - regular My Chart - accepts CLASSIFICATION OF OVERWEIGHT AND OBESITY BY BMI Obesity Class BMI(kg/m2) Underweight < 18.5 Normal 18.5-24.9 Overweight 25.0-29.9 OBESITY I 30.0-34.9 II 35.0-39.9 EXTREME OBESITY III >40 Patient's BMI Body mass index is 32.59 kg/(m^2). http://hin.nhlbi.nih.gov/menuplanner/menu.cgi Questioned patient about current smoking habits. Pt. quit smoking some time ago. documented in this encounter Plan of Treatment Not on filedocumented as of this encounter Visit Diagnoses Diagnosis Essential hypertension, benign - Primary OBESITY NOS Obesity, unspecified Calculus of kidney At risk for falling Personal history of fall documented in this encounter Care Teams Locomotive Engineer Relationship Specialty Start Date End Date Jacquie Schmitt MD PCP - General 11/24/99 02/11/14 [address] [address] documented as of this encounter
--- OUTSIDE RECORDS SUMMARY | 2022-08-18 09:32 | XMS_ITS | Encounter Summary ---
:1945 Author Organization [place] Address [address] [place] [address] Care Team Providers Name Role Phone Jacquie Schmitt MD Primary Care Provider Reason for Visit Reason Onset Date Comments Forms 03/16/2012 Labs released from 0 02/2012 visit to Urology referral clinic, faxed n/c on 03/16/12 Encounter Details Date Type Department Care Team Description 03/16/2012 Telephone [facility] Abstract, Provider Form s (Labs released Physicians from 02/2012 visit to [address] [place] [address] Urology referral [address] clinic, faxed n/c on [place], [place] 03/16/12) [phone] Social History Tobacco Use Types Packs/Day Years Used Date Smoking Tobacco: Former Cigarettes Quit : 11/07/1995 Smokeless Tobacco: Never Alcohol Use Standard Drinks/Week Comments Yes 0 (1 standard drink = 0.6 oz pure alcoho l) rare Sex Assigned at Date Recorded Female 10/17/2018 7:14 PM 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
--- OUTSIDE RECORDS SUMMARY | 2022-08-18 09:33 | XMS_ITS | Encounter Summary ---
:1945 Author Organization [facility] Address [address] [place] [address]. [place] [address] Care Team Providers Name Role Phone Jacquie Schmitt MD Primary Care Provider Reason for Visit Reason Comments Abdominal Pain Encounter Details Date Type Department Care Team Description 11/04/2011 Office Visit [facility] Mary Granados, Abdomi nal pain, other Physicians specified site [address] (Primary Dx) [address] [place] [address] [phone] Social History Tobacco Use Types Packs/Day Years Used Date Smoking Tobacco: Former Cigarettes Quit : 11/07/1995 Smokeless Tobacco: Never Alcohol Use Standard Drinks/Week Comments No 0 (1 standard drink = 0.6 oz pure alcoho l) Sex Assigned at Date Recorded Female 10/17/2018 7:14 PM MD UROLOGIST documented as of this encounter Last Filed Vital Signs Vital Sign Reading Time Taken Comments Blood Pressure 142/76 11/04/2011 3:19 PM MD UROLOGIST Pulse 72 11/04/2011 3:19 PM MD UROLOGIST Temperature 36.6 ??C (97.9 ??F) 11/04/2011 3:19 PM MD UROLOGIST Respiratory Rate - - Oxygen Saturation - - Inhaled Oxygen Concentration - - Weight 96.2 kg (212 lb) 11/04/2011 3:19 PM MD UROLOGIST Height 169.5 cm (5' 6.75) 11/04/2011 3:19 PM MD UROLOGIST Body Mass Index 33.45 11/04/2011 3:19 PM MD UROLOGIST documented in this encounter Progress Notes Mary Granados MD - 11/04/2011 3:34 PM CST SUBJECTIVE: Shahnaz Glasgow is an 66 year old female who presents for evaluation of abdominal pain. Characteristics of the pain are as follows: Location: LLQ without radiation Quality: dull and aching Quantity: 5/10 in intensity Chronicity: Onset 5 days ago, relapsing/remitting since- usually lasting 10 minutes to 2 hours, NO PAIN NOW Aggravating factors: nothing Alleviating factors: nothing Associated symptoms: constipation- many hard stools, 5 days ago only able to get small da out, one normal stool yesterday Family history: negative Past Medical History Diagnosis Date ??? Other [...] pap smear 11/2008 Carlos White Current Outpatient Rx Name Route Sig Dispense Refill ??? HYDROCHLOROTHIAZIDE 25 MG PO TABS Oral Take 0.5 tablets by mouth daily. 45 tablet 1 ??? AMLODIPINE BESYLATE 5 MG PO TABS Oral Take 1 tablet by mouth daily. 90 tablet 1 ??? VITAMIN D3 PO Oral Take by mouth daily. 400 IU ??? ONE-A-DAY WOMENS 50 PLUS PO TABS Oral 1 TABLET DAILY ??? METRONIDAZOLE 1 % EX GEL Apply externally None Entered ??? TRETINOIN 0.1 % EX CREA Apply externally None Entered ??? POTASSIUM CHLORIDE 10 MEQ PO TBCR Oral 3-4 bananas/week 0 0 ??? CALCIUM 600 + D 600-200 MG-UNIT OR TABS 0 0 Allergies Allergen Reactions ??? Imidazole Antifungals hives ??? Penicillins hives History Substance Use Topics ??? Smoking status: Former Smoker Quit date: 11/07/1995 ??? Smokeless tobacco: Never Used ??? Alcohol Use: No Review Of Systems Respiratory: No shortness of breath, dyspnea on exertion, cough, or hemoptysis Cardiovascular: negative Gastrointestinal: as above Genitourinary: negative OBJECTIVE: BP 142/76 Pulse 72 Temp 97.9 ??F (36.6 ??C) Ht 1.695 m (5' 6.75) Wt 96.163 kg (212 lb) BMI 33.45 kg/m2 General appearance: healthy, alert and no distress Hydration: well hydrated Ears: R TM - normal: no effusions, no erythema, and normal landmarks, L TM - normal: no effusions, no erythema, and normal landmarks Nose: normal Oropharynx: normal Neck: normal, supple and no adenopathy Lungs: normal and clear to auscultation Heart: regular rate and rhythm and no murmurs, clicks, or gallops Abdomen: symmetric, normal bowel sounds. Tenderness: none Masses: none Organomegaly: no hepatosplenomegaly Rectal: negative ASSESSMENT/PLAN: 789.09 Abdominal pain, other specified site (primary encounter diagnosis) Comment: differential includes, cholelithiasis, gatritis, peptic ulcer disease, pancreatitis, bowel obstruction, diverticulitis, appendicitis. Plan: HCL Urinalysis, Routine (BFP) A few rbc in urine, needs to f/u on this, The patient indicates understanding of these issues and agrees with the plan. Seems most likely constipation due to hard stool, Lots of stool on x-ray and normal exam and symptoms gone completely now. Recheck immediately if worsening, or if not resolving in a few days, otherwise PRN. spent at least 25 minutes with pt, more than 1/2 was in counseling. UROLOGIST documented in this encounter Nursing Notes 11/04/2011 3:00 PM CST >> MELI HATHAWAY Lizzette Nov 04, 2011 3:21 PM Pt here for left sided abdominal pain x1wk. Questioned patient about current smoking habits. Pt. quit smoking some time ago. Body mass index is 33.45 kg/(m^2). BP Cuff right Arm large Cuff PULSE regular My Chart: accepts documented in this encounter Plan of Treatment Not on filedocumented as of this encounter Procedures Procedure Name Priority Date/Time Associated Diagnosis Comme nts URINE CULTURE Routine 11/04/2011 3:50 PM Abdominal pain, Resul ts for this MD UROLOGIST other specified site procedu re are in the results section. HCL URINALYSIS, Routine 11/04/2011 3:32 PM Abdominal pain, Res ults for this ROUTINE MD UROLOGIST other specified site procedu re are in the results section. XR ABDOMEN 1 VIEW Routine 11/04/2011 Abdominal pain, Results for this other specified site procedu re are in the results section. documented in this encounter Results Urine culture ([facility]) (11/04/2011 3:50 PM MD UROLOGIST) P athologist Signature Urine Voided [facility] Comment: ??CULTURE, URINE, ROUTINE ?MICRO NUMBER: ?[id number] ??TEST STATUS: ? FINAL ??SPECIMEN SOURCE: ?? URINE ??SPECIMEN QUALITY: ??ADEQUATE ??RESULT: ?Multiple org anisms present, each less than 10,000 ? CFU/mL. T hese organisms, commonly found on ? external and internal genitalia, are considered ? to be col onizers. No further testing performed. Specimen Anatomical Collection Method Collection Time Receive d Time (Source) Location / / Volume Laterality Urine specimen 11/04/2011 3:50 PM 011 (specimen) MD UROLOGIST 12:28 AM MD UROLOGIST Resulting Agency Comment Performing Lab Site ID: CB Lab Name: [facility] Address: [address] [place] [id number] Playroom Attendant: Juanito Hardy M.D. Mary Granados MD LAB - MICRO GENERAL ORDERABL ES Performing Organization Address City/[facility] Phon e Number [facility] [address] [place], [place] [address] [facility] [address] [place], [place] [address] HCL Urinalysis, Routine (BFP) (11/04/2011 3:32 PM MD UROLOGIST) [facility] Method Time Signature Color Urine Yellow [facility]NAL Appearance Urine Clear [facility] Glucose Urine Neg neg mg/dL [facility] Bilirubin Urine Neg neg [facility] Ketones Urine Neg neg mg/dL [facility] Specific Eucha 1.020 [facility] Blood Urine Small neg [facility] pH Arterial 7.0 5.0 - 7.0 [facility] Albumin Urine neg neg - neg [facility] mg/dL Urobilinogen Urine 0.2 0.2 - 1.0 [facility] INTERNA L EU/dL Nitrite Urine Neg NEG [facility] Leukocyte Esterase trace neg - neg [facility] INTERNA L Wbc, Urine Micro 4-6 neg - 2 [facility] RBC Micro Urine 8-10 neg - 2 [facility] EP/HPF occ [facility] Bacteria Urine neg neg - neg [facility] Casts/LPF neg [facility] Miscellaneous [facility]NAL Mary Granados MD LABORATORY Performing Organization Address City/[facility]/ZIP Code Phon e Number [facility] INTERNAL X-ray Abdomen 1 vw (11/04/2011) Anatomical Region Laterality Modality Abdomen/Pelvis Other Narrative 11/04/2011 [facility] * Fax: [address], [place] [address] [address] [address] Age: 66 Y Work Phone: Dept No.: [id number] TANNA GLASGOWMeliton Landers : 1945 [facility] Chart # Req. Phys: [facility] MRN: Clinic: [facility]#: [id number] Exam: ABDOMEN 1 VIEW Exam Date: 11/04/20 11 ABDOMEN 1 VIEW Nov 04, 2011 04:08:00 PM HISTORY: Constipation, pain. COMPARISON: None. FINDINGS: Moderate amount of stool. No e vidence for obstruction. Performed by: WENDYB Transcribed By: MATT on: 11/05/2011 8:05 A M MD UROLOGIST Finalized By: KEILY SHOEMAKER M.D. on: 10/09 8:10 AM MD UROLOGIST Dictated By: KEILY SHOEMAKER M.D. Signed by: DJRuben Thank You for using [facility] age 1 of 1 Mary Granados MD IMG DIAGNOSTIC IMAGING ORDER [place] documented in this encounter Visit Diagnoses Diagnosis Abdominal pain, other specified site - P rimary documented in this encounter Care Teams Herd Tester Relationship Specialty Start Date End Date Jacquie Schmitt MD PCP - General 11/24/99 02/11/[address], [facility] [address] [place] [address] documented as of this encounter
--- OUTSIDE RECORDS SUMMARY | 2022-08-18 09:33 | XMS_ITS | Encounter Summary ---
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 Operator Exam Encounter Details Date Type Department Care Team Description 03/11/2008 Office Visit [facility] Jacquie Schmitt ROUTIN E COLLATOR OPERATOR EXAMINATION (Primary Dx); Physicians BENIGN HYPERTENSION; [address], SCREENING MAL NEOP-BREAST NO S; [address] SCREENING-LIPOID DISORDERS; [place], [place] [phone] [phone] Social History Tobacco Use Types Packs/Day Years Used Date Smoking Tobacco: Former Cigarettes Quit : 11/07/1995 Alcohol Use Standard Drinks/Week Comments No 0 (1 standard drink = 0.6 oz pure alcoho l) Sex Assigned at Date Recorded Female 10/17/2018 7:14 PM MICROARRAY SPECIALIST documented as of this encounter Last Filed Vital Signs Vital Sign Reading Time Taken Comments Blood Pressure 110/70 03/11/2008 9:15 AM CDT Pulse 80 03/11/2008 9:15 AM CDT Temperature 36.9 ??C (98.5 ??F) 03/11/2008 9:15 AM CDT Respiratory Rate 12 03/11/2008 9:15 AM CDT Oxygen Saturation - - Inhaled Oxygen Concentration - - Weight 96.6 kg (213 lb) 03/11/2008 9:15 AM CDT Height 170.2 cm (5' 7) 03/11/2008 9:15 AM CDT Body Mass Index 33.36 03/11/2008 9:15 AM CDT documented in this encounter Progress Notes Oskar Jacquie - 03/11/2008 9:38 AM CDT SUBJECTIVE: Shahnaz Glasgow is an 62 year old postmenopausal woman who 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 Menopause at age 49. No bleeding, spotting, or discharge noted. Estrogen replacement therapy: none currently, has taken in past SAMANTA exposure: no History of abnormal Pap smear: no Family history of uterine or ovarian cancer: yes - mother ovarian cancer age 90 Regular self breast exam: Yes History of abnormal mammogram: yes - benign biopsy Family history of breast cancer: no History of abnormal lipids: no 1 560985 PMH Past Medical History ACNE NEC POSTMENOPAUSAL HORMONAL REPLACEMENT TX RHINITIS DUE TO POLLEN 1 672485 PMH 1 38 FAMHX 1 Family History Cancer Brother Comment: colon 1 38 FAMHX 1 1 230909 PSH Past Surgical History COLONOSCOPY & POLYPECTOMY COLONOSCOPY & POLYPECTOMY COLONOSCOPY & POLYPECTOMY 2000 COLONOSCOPY & POLYPECTOMY 2002 Comment: Dr Bonita AGOSTO CATARACT EXTRACAP,INSERT LENS 03/10/04 Comment: right REMV CATARACT EXTRACAP,INSERT LENS 04/10 Comment: left Dr Keith ANESTH,SKIN SURGERY, BACK 12/21/04 Comment: squamous cell of the back ANESTH,SKIN SURG HEAD/NECK 12/21/04 Comment: basal cell KNEE SCOPE,MED/LAT MENISECTOMY 04/2005 Comment: Dr Arevalo BREAST BIOPSY, RT/LT 04/2005 Comment: left breast LIGATN/STRIP LONG & SHORT SAPHEN 03/2006 Comment: right leg EXC SKIN MALIG 0.5CM OR LESS,FACIAL 12/2004 Comment: MOHS on right cheek/ basal cell HYSTEROSCOPY, SURGICAL; W/ ENDOMETRIAL BX &/OR POLYPECTOMY W/WO D&C 2006 Comment: benign uterine polyp 1 673943 PSH 1 447896 MED 1. HYDROCHLOROTHIAZIDE 25 MG OR TABS Route: Oral Si/2 TABLET DAILY IN THE MORNING Dispense: 45 Refill: 1 Comments:RX [id number] 2. POTASSIUM CHLORIDE 10 MEQ OR TBCR Route: Oral Si-4 bananas/week Dispense: 0 Refill: 0 3. NASACORT AQ 55 MCG/ACT NA AERS Route: Nasal Sig:INHALE 2 SPRAYS IN EACH NOSTRIL ONE DAILY Dispense: 3 MONTHS Refill: 3 4. REPLENS VA GEL Route: Vaginal Si appl qweek Dispense: 0 Refill: 0 5. GLUCOSAMINE CHONDROITIN OR TABS Route: Oral Si daily, Dr love Dispense: 0 Refill: 0 6. RETIN-A MICRO 0.04 % EX GEL Route: Apply externally Sig:at bedtime, Dr Hopper Dispense: Refill: 0 7. FINACEA 15 % EX GEL Route: Apply externally Sig:apply in the am, Dr Hopper Dispense: 0 Refill: 0 8. CALCIUM 600 + D 600-200 MG-UNIT OR TABS Route: Sig: Dispense: 0 Refill: 10000711 MED 1 8 ALLERGY 1 -- Imidazole Antifungals -- hives -- Penicillins -- hives 1 8 ALLERGY 1 1 107 SOCX 1 Tobacco Use: Quit Quit date: 11/07/1995 Alcohol Use: No 1 107 SOCX 1 Review Of Systems Ears/Nose/Throat: allergies Respiratory: negative Cardiovascular: HTN well controlled Gastrointestinal: colon polyps Genitourinary: uterine polyp benign OBJECTIVE: 1 557760 VS BP 110/70 Pulse 80 Temp (Src) 98.5 (Oral) Resp 12 Ht 5' 7 (1.70m) Wt 213 lbs (96.6kg) LMP Postmenopausal1 866039 VS General appearance: healthy, alert, no distress, cooperative and smiling Skin: Skin color, texture, turgor normal. No rashes or lesions., positives: acne, scar face Ears: negative Nose/Sinuses: Nares normal. Septum midline. [...] atrophy BMI : Body mass index is 33.35 kg/(m^2). ASSESSMENT: V72.31 ROUTINE COLLATOR OPERATOR EXAMINATION (primary encounter diagnosis) Plan: THIN LAY PAP,DIAG W/HPV REFLEX, SPECIMEN HANDLING,DR OFF->LAB, VENOUS COLLECTION, HEMOGLOBIN Total calcium intake of 1500 mgm/day, vitamin D 400-800IU/day and a regular weight bearing exerciseprogram for prevention of osteoporosis is recommended treatment at this time. 401.1 BENIGN HYPERTENSION Plan: SPECIMEN HANDLING,DR OFF->LAB, HYDROCHLOROTHIAZIDE 25 MG OR TABS, VENOUS COLLECTION, A.M.A. BASIC METABOLIC PANEL, GLUCOSE, FASTING Low salt diet reviewed. Exercise. V76.10 SCREENING MAL NEOP-BREAST NOS Plan: P SEND-OUT MAMMOGRAM V77.91 SCREENING-LIPOID DISORDERS Plan: SPECIMEN HANDLING, OFF->LAB, VENOUS COLLECTION, A.M.A. LIPID PANEL 278.00 OBESITY NOS Plan: SPECIMEN HANDLING,DR OFF->LAB, VENOUS COLLECTION, A.M.A. LIPID PANEL, A.M.A. BASIC METABOLIC PANEL, GLUCOSE, FASTING Weight loss encouraged to less than 200 pounds. Dx: 1) Pap smear, mammogram 2) Lipids at appropriate intervals PE: Reviewed health maintenance including diet, regular exercise, estrogen replacement and periodic exams. documented in this encounter Nursing Notes 03/11/2008 9:15 AM CDT >> EVE SIMON 03/11/2008 9:21 am Patient is here for a full physical exam and pap. BP done on the left arm, with a large sized cuff. Pulse - regular My Chart - accepts CLASSIFICATION OF OVERWEIGHT AND OBESITY BY BMI Obesity Class BMI(kg/m2) Underweight < 18.5 Normal 18.5-24.9 Overweight 25.0-29.9 OBESITY I 30.0-34.9 II 35.0-39.9 EXTREME OBESITY III >40 Patient's BMI Body mass index is 33.35 kg/(m^2). http://hin.nhlbi.nih.gov/menuplanner/menu.cgi Questioned patient about current smoking habits. Pt. quit smoking some time ago. documented in this encounter Plan of Treatment Not on filedocumented as of this encounter Procedures Procedure Name Priority Date/Time Associated Diagnosis Comme nts BFP SEND-OUT Routine 03/14/2008 1:51 PM Screening Mal Results for this MAMMOGRAM CDT Neop-Breast Nos procedure ar e in the results section. ZZCL AFF THIN LAY Routine 03/14/2008 7:00 AM Routine Confectionery Drops Machine Operator Resu lts for this PAP,DIAG W/HPV CDT Examination procedure are in REFLEX the results section. HCL BASIC METABOLIC Routine 03/12/2008 4:00 AM Benign Hy pertension Results for this PANEL CDT Obesity Nos procedure are i n the results section. HCL LIPID PANEL Routine 03/12/2008 4:00 AM Screening-Lipoid Re sults for this CDT Disorders procedure are in Obesity Nos the results section. CL AFF GLUCOSE, Routine 03/11/2008 9:57 AM Benign Hypert ension Results for this FASTING CDT Obesity Nos procedure are i n the results section. ZZCL AFF HEMOGLOBIN Routine 03/11/2008 9:52 AM Routine Confectionery Drops Machine Operator Re sults for this CDT Examination procedure are i n the results section. HC VENOUS COLLECTION Routine 03/11/2008 9:36 AM Routine Confectionery Drops Machine Operator CDT Examination Benign Hypertens ion Screening-Lipoid Disorders Obesity Nos documented in this encounter Results MAMMOGRAM (03/14/2008 1:51 PM CDT) Anatomical Region Laterality Modality Other Narrative 03/14/2008 1:51 PM CDT [facility] * Fax: [phone] [address], [place] [address] MRI, CT, General, Mammography, Ultrasoun d [address] [place] [address] Age: 62 Y Work Phone: Dept No.: [id number] SHAHNAZ GLASGOW : 1945 Req. Phys: DoloresJacquie sifuentes BILATERAL SCREENING MAMMOGRAM Exam Date: 03/11/2008 Clinic MRN: Clinic: [facility] c#: [id number] Breast symptoms: None. Previous mammography: Comparison with SI 05/08/07, 04/16/03, there is no significant change. Breast parenchyma: Heterogeneously dense . Comments: Tiny microcalcification cluste r deep in the right breast on MLO view, unchanged. Two small nodular densities project far back left breast o n MLO view, unchanged. Cylinder shaped biopsy marker upper left breast with no recurrent abnormality in that region. An nual mammography is recommended to monitor for continuing st ability. IMAGING IMPRESSION: ACR CATEGORY 2. SHAVONNE GN FINDINGS, NO EVIDENCE OF MALIGNANCY. Images were reviewed with the aid of CAD (R2 v5.3). Exam results letter mailed to patient. CK Performed by: Transcribed By: KALI on: 03/13/2008 8:52 A M CDT Finalized By: HERMAN LIVINGSTON M.D. on: 03/13/2008 3:07 PM CDT Dictated By: HERMAN LIVINGSTON M.D. Si gned by: ERIC Page 1 of 1 Jacquie Schmitt MD GENERAL IMAGING THIN LAY PAP,DIAG W/HPV REFLEX ([id number]) (03/14/2008 7:00 AM CDT) [facility] gist Method Time Signature Report status FINAL [facility] Clinical SEE NOTE [facility] Comment: PARA 1 1 LMP POSTMENO [facility] Last Pap Diagnosis WNL [facility] Prev Bx Dx NONE GIVEN [facility] Source none given [facility] Statement of Adequacy SEE NOTE [facility] Comment: Satisfactory for evaluation. Endocervical/transformation zone compone nt present. General Categorization NOT AVAIL. [facility] Descriptive Diagnosis SEE NOTE [facility] Comment: Negative for intraepithelial le miky or malignancy. Infection NOT AVAIL. [facility] Comment SEE NOTE [facility] Comment: Based on the cytology result, reflex Hig h Risk HPV DNA testing was not performed. ? Antique Clocks Repairer: SEE NOTE [facility] Comment: CLG, CT(ASCP) Review Antique Clocks Repairer NOT AVAIL. [facility] Pathologist NOT AVAIL. [facility] Comment: NO COLLECTION DATE RECEIVED. WE HAVE USE D THE DATE THE SPECIMEN WAS RECEIVED BY IS LABORATORY THE COLLECTION DATE. IF IS IS INCORRECT, PLEASE CONTACT CLIENT SERV SHANIQUA. PHONE NUMBER: [phone] Test performed at [facility] ?? [address] [place] [address] ? [place], [place] ??[address] Director: MALATHI ISAAC MD Specimen (Source) Anatomical Collection Method Collection Time Re ceived Time Location / / Volume Laterality 03/11/2008 10:2 0 PM CDT Narrative [facility] - 03/14/20 08 7:00 AM CDT Additional Result Information GENERAL CATEGORIZATION: RESULT NOT AV AILABLE INFECTION: RESULT NOT AVAILABLE REVIEW COMMUNICATIONS REPRESENTATIVE: RESULT NOT A VAILABLE PATHOLOGIST: RESULT NOT AVAILABLE Jacquie Schmitt MD LABORATORY Performing Organization Address City/State/ZIP Code Phon e Number [address] [address] (ABNORMAL) A.M.A. BASIC METABOLIC PANEL [41274.000] (03/12/2008 4:00 AM CDT) athologist Signature Glucose 114 (H) 65 - 99 [facility] Comment: FASTING REFERENCE INTERVAL Urea Nitrogen 20 7 - 25 mg/dL [facility] Creatinine 0.73 0.50 - 1.20 mg/dL [facility] GFR Estimate >60 > OR = 60 mL/min/1.73m2 [facility] EGFR >60 > OR = 60 mL/min/1.73m2 [facility] BUN/Creatinine Ratio 27 (H) 6 - 22 (calc) [facility] Sodium 143 135 - 146 mmol/L [facility] Potassium 4.3 3.5 - 5.3 mmol/L [facility] Chloride 103 98 - 110 mmol/L [facility] Carbon Dioxide 28 21 - 33 mmol/L [facility] Calcium 9.6 8.6 - 10.2 mg/dL [facility] Comment: NO COLLECTION DATE RECEIVED. WE HAVE USE D THE DATE THE SPECIMEN WAS RECEIVED BY IS LABORATORY THE COLLECTION DATE. IF IS IS INCORRECT, PLEASE CONTACT CLIENT SERV SHANIQUA. PHONE NUMBER: [phone] Test performed at [facility] [address] [place], [place] ??[address] Director: MANAV LAWS M.D. Specimen (Source) Anatomical Collection Method Collection Time Re ceived Time Location / / Volume Laterality 03/12/2008 1:59 AM CDT Jacquie Schmitt MD LABORATORY Performing Organization Address City/State/ZIP Code Phon e Number [facility] [address] [place], [place] [address] [facility] [address] [place], [place] [address] A.M.A. LIPID PANEL [[id number]] (03/12/2008 4:00 AM CDT) Analysis Performed At Patho logist Time Signature Triglycerides 104 <150 mg/dL [facility] Cholesterol 198 125 - 200 [facility] mg/dL [facility] HDL Cholesterol 61 > OR = 40 [facility] mg/dL [facility] LDL Cholesterol 116 <130 mg/dL [facility] Calculated (calc) [facility] Comment: DESIRABLE RANGE <100 MG/DL FOR PATIENTS WITH CHD OR DIABETES AND <70 MG/DL FOR DIABETIC JULIA ENTS WITH KNOWN HEART DISEASE. Cholesterol/HDL Ratio 3.2 < OR = 5.0 (calc) [facility] Comment: Test performed at [facility] [address] [place], [place] ??[address] Director: MANAV LAWS M.D. Specimen (Source) Anatomical Collection Method Collection Time Re ceived Time Location / / Volume Laterality 03/12/2008 1:59 AM CDT Jacquie Schmitt MD LABORATORY Performing Organization Address City/State/ZIP Code Phon e Number [facility] [address] [place], [place] [address] [facility] [address] [facility] Institute[place] [address] GLUCOSE, FASTING [[id number]] (03/11/2008 9:57 AM CDT) P athologist Signature Glucose 113 60 - 120 [facility] mg/dL Jacquie Schmitt MD LABORATORY Performing Organization Address City/[facility]/ZIP Code Phon e Number [facility] HEMOGLOBIN [[id number]] (03/11/2008 9:52 AM CDT) athologist Signature Hemoglobin 13.8 12 - 16 [facility] GM/DL Jacquie Schmitt MD LABORATORY Performing Organization Address City/[facility]/ZIP Code Phon e Number [facility] documented in this encounter Visit Diagnoses Diagnosis Routine gynecological examination - Prim elke Essential hypertension, benign Breast screening, unspecified Screening for lipoid disorders Obesity, unspecified documented in this encounter Care Teams Neon Sign Servicer Relationship Specialty Start Date End Date Jacquie Schmitt MD PCP - General 11/24/99 02/11/14 [address] [address] documented as of this encounter
--- OUTSIDE RECORDS SUMMARY | 2022-08-18 09:33 | XMS_ITS | Encounter Summary ---
:1945 Author Organization [facility] Address [address] [place] [address] Care Team Providers Name Role Phone Jacquie Schmitt MD Primary Care Provider Reason for Visit Reason Comments UTI Encounter Details Date Type Department Care Team Description 12/26/2008 Office Visit [facility] Liudmila David (Primary Dx); Prateek Gatica MD Abdominal Pain, Other Specif ied Site [address] [address] Social History Tobacco Use Types Packs/Day Years Used Date Smoking Tobacco: Former Cigarettes Quit : 11/07/1995 Alcohol Use Standard Drinks/Week Comments No 0 (1 standard drink = 0.6 oz pure alcoho l) Sex Assigned at Date Recorded Female 10/17/2018 7:14 PM BENCH MOVER documented as of this encounter Last Filed Vital Signs Vital Sign Reading Time Taken Comments Blood Pressure 138/80 12/26/2008 9:45 AM BENCH MOVER Pulse 88 12/26/2008 9:45 AM BENCH MOVER Temperature 36.7 ??C (98 ??F) 12/26/2008 9:45 AM BENCH MOVER Respiratory Rate - - Oxygen Saturation - - Inhaled Oxygen Concentration - - Weight 99.3 kg (219 lb) 12/26/2008 9:45 AM BENCH MOVER Height 170.2 cm (5' 7) 12/26/2008 9:45 AM BENCH MOVER Body Mass Index 34.3 12/26/2008 9:45 AM BENCH MOVER documented in this encounter Progress Notes Liudmila David - 12/26/2008 10:24 AM CST SUBJECTIVE: 63 year old female presents with the following concerns: Thinks she has a UTI Initial symptoms yesterday; freq urination of small amount of urine. Mild right lower back pain, with raditation into back Suprapubic pressure last night She denies fever or chills. Feels better today after drinking lots of cranberry juice Last UTI couple of years ?? Kidney stone in past OBJECTIVE: No acute distress No fever The abdomen is soft without tenderness, guarding, mass or organomegaly. Bowel sounds are normal. No CVA tenderness. UA nondiagnostic @ASSESSMENT@ ? UTI vs possible stone PLAN: Fill Macrobid if symptoms return over the weekend, culture pending Dash diet discussed; BP not in control Recheck BP in a month H MOVER documented in this encounter Nursing Notes 12/26/2008 9:45 AM CST >> TULIO GAMBOA [facility] Dec 26, 2008 9:44 AM Shahnaz is here for a poss UTI. C/o fullness last pm, urgency. Some achiness. Questioned patient about current smoking habits. Pt. quit smoking some time ago. Body mass index is 34.30 kg/(m^2). BP Cuff left Arm Large Cuff PULSE regular My Chart: accepts documented in this encounter Plan of Treatment Not on filedocumented as of this encounter Procedures Procedure Name Priority Date/Time Associated Diagnosis Comme nts ZZCL AFF CULTURE, Routine 12/28/2008 3:00 AM Dysuria Resu lts for this URINE BENCH MOVER procedure are i n the results section. CL AFF URINALYSIS, Routine 12/26/2008 9:59 AM Dysuria Res ults for this ROUTINE BENCH MOVER procedure are i n the results section. documented in this encounter Results CULTURE, URINE (12/28/2008 3:00 AM BENCH MOVER) P athologist Signature Urine Voided SEE NOTE [facility] Comment: ??CULTURE, URINE, ROUTINE ?MICRO NUMBER: ?[id number] ??TEST STATUS: ? FINAL ??SPECIMEN SOURCE: ?? URINE ??SPECIMEN COMMENTS: ADEQUATE ??RESULT: ?NO GROWTH NO COLLECTION DATE RECEIVED. WE HAVE USE D THE DATE THE SPECIMEN WAS RECEIVED BY IS LABORATORY THE COLLECTION DATE. IF IS IS INCORRECT, PLEASE CONTACT CLIENT LOBITO MCGOVERN. PHONE NUMBER: [phone] Test performed at [facility] [address] [facility], [place] ??[address] Director: MANAV LAWS M.D. Specimen (Source) Anatomical Collection Method Collection Time Re ceived Time Location / / Volume Laterality 12/27/2008 1:23 AM BENCH MOVER Liudmila David MD LABORATORY Performing Organization Address City/[facility] Phon e Number [facility] [address] [facility] [address] (ABNORMAL) URINALYSIS, ROUTINE (12/26/2008 9:59 AM BENCH MOVER) [facility] gist Method Time Signature Color Urine yellow [facility] Appearance Urine hazy [facility] Glucose Urine neg mg/dL [facility] Bilirubin Urine neg [facility] Ketones Urine neg mg/dL [facility] Specific Clarkson 1.015 [facility] Blood Urine trace (A) [facility] pH Arterial 7.0 5.0 - 7.0 [facility] Albumin Urine neg neg - neg [facility] mg/dL Urobilinogen 0.2 EU/dL [facility] Urine Nitrite Urine neg [facility] Leukocyte neg neg - neg [facility] Esterase Wbc, Urine Micro 0-2 neg - 2 [facility] RBC Micro Urine 0 neg - 2 [facility] EP/HPF 0 [facility] Bacteria Urine few neg - neg [facility] Casts/LPF 0 [facility] Miscellaneous [facility] Liudmila David MD LABORATORY Performing Organization Address City/[facility]/ZIP Code Phon e Number [facility] documented in this encounter Visit Diagnoses Diagnosis Dysuria - Primary Abdominal pain, other specified site documented in this encounter Care Teams Cash Room Clerk Relationship Specialty Start Date End Date Jacquie Schmitt MD PCP - General 11/24/99 02/11/[address], [address] [place] [address] documented as of this encounter
--- OUTSIDE RECORDS SUMMARY | 2022-08-18 09:33 | XMS_ITS | Encounter Summary ---
:1945 Author Organization [facility] Address [address] [place] [address] Care Team Providers Name Role Phone Jacquie Schmitt MD Primary Care Provider Reason for Visit Reason Comments RECHECK hypertension Encounter Details Date Type Department Care Team Description 09/15/2009 Office Visit [facility] Jacquie Schmitt, René messina Hypertension, Benign; Physicians Other Acne [address] [id number] [phone] Social History Tobacco Use Types Packs/Day Years Used Date Smoking Tobacco: Former Cigarettes Quit : 11/07/1995 Alcohol Use Standard Drinks/Week Comments No 0 (1 standard drink = 0.6 oz pure alcoho l) Sex Assigned at Date Recorded Female 10/17/2018 7:14 PM FLAT FINISHER documented as of this encounter Last Filed Vital Signs Vital Sign Reading Time Taken Comments Blood Pressure 112/72 09/15/2009 10:53 AM FLAT FINISHER Pulse 76 09/15/2009 10:53 AM FLAT FINISHER Temperature 36.8 ??C (98.2 ??F) 09/15/2009 10:53 AM FLAT FINISHER Respiratory Rate 12 09/15/2009 10:53 AM FLAT FINISHER Oxygen Saturation - - Inhaled Oxygen Concentration - - Weight 97.1 kg (214 lb) 09/15/2009 10:53 AM FLAT FINISHER Height 170.8 cm (5' 7.25) 09/15/2009 10:53 AM FLAT FINISHER Body Mass Index 33.27 09/15/2009 10:53 AM FLAT FINISHER documented in this encounter Progress Notes Jacquie Schmitt - 09/15/2009 11:09 AM CST SUBJECTIVE: Shahnaz Phelps is an 64 year old female who presents for evaluation of hypertension. She indicates that she is feeling well and denies any symptoms referable to her elevated blood pressure. Specifically denies chest pain, palpitations, dyspnea, orthopnea, PND or peripheral edema. Current medication regimen is as listed below. Patient denies any side effects of medication. Family history: positive for hypertension Age at onset of elevated blood pressure: 60's Cardiovascular risk factors: family history, hypertension and obesity Use of agents associated with hypertension: none History of renal disease: negative History of flank trauma: negative Current Outpatient Rx Name Route Sig Dispense Refill ??? NORVASC 5 MG OR TABS Oral ONE DAILY 3 MONTHS 1 ??? HYDROCHLOROTHIAZIDE 12.5 MG OR CAPS Oral ONE DAILY IN THE MORNING 3 MONTHS 1 ??? POTASSIUM CHLORIDE 10 MEQ OR CPCR Oral 1 CAPSULE TWICE DAILY 90 0 ??? POTASSIUM CHLORIDE 10 MEQ OR TBCR Oral 3-4 bananas/week 0 0 ??? RETIN-A MICRO 0.04 % EX GEL Apply externally at bedtime, Dr Hopper 0 ??? CALCIUM 600 + D 600-200 MG-UNIT OR TABS 0 0 Allergies Allergen Reactions ??? Imidazole Antifungals hives ??? Penicillins hives History Substance Use Topics ??? Tobacco Use: Quit Quit date: 11/07/1995 ??? Alcohol Use: No OBJECTIVE: BP 112/72 Pulse 76 Temp (Src) 98.2 ??F (36.8 ??C) (Oral) Resp 12 Ht 5' 7.25 (1.708 m) Wt 214 lb (97.07 kg) LMP Postmenopausal Repeat BP R arm seated = 112/72 with large size cuff. Fundi: deferred Thyroid: normal to inspection and palpation Lungs: negative, Percussion normal. Good diaphragmatic excursion. Lungs clear Heart: negative, PMI normal. No lifts, heaves, or thrills. RRR. No murmurs, clicks gallops or rub Peripheral pulses: radial=4/4, femoral=4/4, popliteal=4/4, dorsalis pedis=4/4, ABD: The abdomen is soft without tenderness, guarding, mass or organomegaly. Bowel sounds are normal. No CVA tenderness or inguinal adenopathy noted. ASSESSMENT: Essential hypertension Plan: 1) Medication: continue current medication regimen unchanged 2) Dietary sodium restriction 3) Regular aerobic exercise 4) Recheck in 6 months fasting, sooner should new symptoms or problems arise. Patient Education: Reviewed risks of hypertension and principles of treatment. FINISHER documented in this encounter Nursing Notes 09/15/2009 10:30 AM CST >> EVE Barry ALFRED Mon Sep 15, 2009 10:58 AM Patient is here for a recheck of her meds. BP done on the left arm, with a large sized cuff. Pulse - regular My Chart - accepts CLASSIFICATION OF OVERWEIGHT AND OBESITY BY BMI Obesity Class BMI(kg/m2) Underweight < 18.5 Normal 18.5-24.9 Overweight 25.0-29.9 OBESITY I 30.0-34.9 II 35.0-39.9 EXTREME OBESITY III >40 Patient's BMI Body mass index is 33.27 kg/(m^2). Http://hin.nhlbi.nih.gov/menuplanner/menu.cgi documented in this encounter Plan of Treatment Not on filedocumented as of this encounter Visit Diagnoses Diagnosis Essential hypertension, benign Other acne documented in this encounter Care Teams Underground Repairer Relationship Specialty Start Date End Date Jacquie Schmitt MD PCP - General 11/24/99 02/11/14 [address] [facility] [address] [place] [address] documented as of this encounter
--- OUTSIDE RECORDS SUMMARY | 2022-08-18 09:33 | XMS_ITS | Encounter Summary ---
:1945 Author Organization [facility] Address [address] [place] [address] Care Team Providers Name Role Phone Jacquie Schmitt MD Primary Care Provider Reason for Visit Reason Comments Marketing Content Manager Exam labs Encounter Details Date Type Department Care Team Description 02/22/2011 Office Visit [facility] Jacquie Schmitt Routin e gynecological examination (Primary Dx); Physicians Essential hypertension, benign; [address], Encounter for long-term (cur rent) use of other medications; [address] Screening for lipoid disorders; [place], [place] Symptomatic menopausal or female climacteric states [id number] [phone] Social History Tobacco Use Types Packs/Day Years Used Date Smoking Tobacco: Former Cigarettes Quit : 11/07/1995 Alcohol Use Standard Drinks/Week Comments No 0 (1 standard drink = 0.6 oz pure alcoho l) Sex Assigned at Date Recorded Female 10/17/2018 7:14 PM WORKERS' COMPENSATION MEDIATOR documented as of this encounter Last Filed Vital Signs Vital Sign Reading Time Taken Comments Blood Pressure 114/74 02/22/2011 10:26 AM CDT Pulse 68 02/22/2011 10:26 AM CDT Temperature 36.8 ??C (98.2 ??F) 02/22/2011 10:26 AM CDT Respiratory Rate 12 02/22/2011 10:26 AM CDT Oxygen Saturation - - Inhaled Oxygen Concentration - - Weight 96.2 kg (212 lb) 02/22/2011 10:26 AM CDT Height 170.8 cm (5' 7.25) 02/22/2011 10:26 AM CDT Body Mass Index 32.96 02/22/2011 10:26 AM CDT documented in this encounter Progress Notes Jacquie Schmitt MD - 02/22/2011 10:59 AM CDT SUBJECTIVE: Shahnaz Phelps is an 65 year old postmenopausal woman who 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 Menopause at age 49. No bleeding, spotting, or discharge noted. Estrogen replacement therapy: none currently, has taken in past SAMANTA exposure: no History of abnormal Pap smear: no Family history of uterine or ovarian cancer: mother age 90 Regular self breast exam: Yes History of abnormal mammogram: yes - breast biopsy benign Family history of breast cancer: no History of abnormal lipids: no Past Medical History Other acne Need for prophylactic hormone replacement therapy (postmenopausal) Allergic rhinitis due to pollen Family History Cancer Brother Comment: colon Past Surgical History HC COLONOSCOPY THRU STOMA W BIOPSY/CAUTERY TUMOR/POLYP/LESION HC COLONOSCOPY THRU STOMA W BIOPSY/CAUTERY TUMOR/POLYP/LESION HC COLONOSCOPY THRU STOMA W BIOPSY/CAUTERY TUMOR/POLYP/LESION 2000 COLONOSCOPY THRU STOMA W BIOPSY/CAUTERY TUMOR/POLYP/LESION [address] Bonita Brito REMV CATARACT EXTRACAP,INSERT LENS 03/10/04 Comment right C REMV CATARACT EXTRACAP,INSERT LENS 04/[address] Keith ANESTH,SKIN SURGERY, BACK 12/21/04 Comment squamous cell of the back C ANESTH,SKIN SURG HEAD/NECK 12/21/04 Comment basal cell C KNEE SCOPE,MED/LAT MENISECTOMY 04/[address] Arevalo BREAST BIOPSY, RT/LT 04/2005 Comment left breast C LIGATN/STRIP LONG & SHORT SAPHEN 03/2006 Comment right leg EXC SKIN MALIG 0.5CM OR LESS,FACIAL 12/2004 Comment MOHS on right cheek/ basal cell HC HYSTEROSCOPY W ENDOMETRIAL BX/POLYPECTOMY W/WO D&C 2006 Comment benign uterine polyp HCL PAP SMEAR 11/2008 Comment Carlos White 1. AMLODIPINE BESYLATE 5 MG PO TABS Route: Oral Sig:Take 1 tablet by mouth daily. Dispense: 90 tablet Refill: 1 2. HYDROCHLOROTHIAZIDE 12.5 MG PO CAPS Route: Oral Sig:Take 1 capsule by mouth every morning. Dispense: 90 capsule Refill: 1 3. ONE-A-DAY WOMENS 50 PLUS PO TABS Route: Oral Si TABLET DAILY Dispense: Refill: 4. METRONIDAZOLE 1 % EX GEL Route: Apply externally Sig:None Entered Dispense: Refill: 5. TRETINOIN 0.1 % EX CREA Route: Apply externally Sig:None Entered Dispense: Refill: 6. POTASSIUM CHLORIDE 10 MEQ PO TBCR Route: Oral Si-4 bananas/week Dispense: 0 Refill: 0 7. CALCIUM 600 + D 600-200 MG-UNIT OR TABS Route: Sig: Dispense: 0 Refill: 0 -- Imidazole Antifungals -- hives -- Penicillins -- hives Smoking status: Former Smoker Quit date: 11/07/1995 Smokeless tobacco: Alcohol Use: No Review Of Systems Ears/Nose/Throat: negative Respiratory: No shortness of breath, dyspnea on exertion, cough, or hemoptysis Cardiovascular: HTN well controlled Gastrointestinal: colon polyps Genitourinary: negative OBJECTIVE: BP 114/74 Pulse 68 Temp(Src) 98.2 ??F (36.8 ??C) (Oral) Resp 12 Ht 1.708 m (5' 7.25) Wt 96.163 kg (212 lb) BMI 32.96 kg/m2 General appearance: healthy, alert, no distress, cooperative, smiling and over weight Skin: Skin color, texture, turgor normal. No rashes or lesions., positives: acne scarring face Ears: negative Nose/Sinuses: Nares normal. Septum [...] Abdomen soft, non-tender. BS normal. No masses, organomegaly Pelvic: External genitalia and vagina normal. Bimanual and rectovaginal normal.No pap this year BMI : Body mass index is 32.96 kg/(m^2). ASSESSMENT:V72.31 Routine gynecological examination (primary encounter diagnosis) Plan: VENIPUNC FNGR,HEEL,EAR [38600], HEMOGLOBIN [39491.000] Total calcium intake of 1500 mgm/day, vitamin D 400-800IU/day and a regular weight bearing exerciseprogram for prevention of osteoporosis is recommended treatment at this time. 401.1 Essential hypertension, benign Plan: SPECIMEN HANDLING, OFF->LAB [[id number]], VENIPUNC FNGR,HEEL,EAR [74561], COMPREHENSIVE METABOLIC PANEL, amlodipine (NORVASC) 5 MG tablet, hydrochlorothiazide (HYDRODIURIL) 25 MG tablet Low salt diet, exercise and weight loss below 200 encouraged. Recheck in 6 months. V58.69 Encounter for long-term (current) use of other medications Plan: SPECIMEN HANDLING, OFF->LAB [14019], VENIPUNC FNGR,HEEL,EAR [20381], COMPREHENSIVE METABOLIC PANEL V77.91 Screening for lipoid disorders Plan: SPECIMEN HANDLING, OFF->LAB [[id number]], VENIPUNC FNGR,HEEL,EAR [99706], LIPID PANEL 627.2 Symptomatic menopausal or female climacteric states Plan: SPECIMEN HANDLING, OFF->LAB [[id number]], VENIPUNC FNGR,HEEL,EAR [59785], Vitamin D deficiency screening As above. Dx: 1) Pap smear, mammogram 2) Lipids at appropriate intervals PE: Reviewed health maintenance including diet, regular exercise, estrogen replacement and periodic exams. documented in this encounter Nursing Notes 02/22/2011 10:15 AM CDT >> EVE SIMON Mon Feb 22, 2011 10:33 AM Pt is here for a full physical exam and pap. Patient is fasting BP done on the left arm, with a lg sized cuff. Pulse - regular My Chart - accepts CLASSIFICATION OF OVERWEIGHT AND OBESITY BY BMI Obesity Class BMI(kg/m2) Underweight < 18.5 Normal 18.5-24.9 Overweight 25.0-29.9 OBESITY I 30.0-34.9 II 35.0-39.9 EXTREME OBESITY III >40 Patient's BMI Body mass index is 32.96 kg/(m^2). http://hin.nhlbi.nih.gov/menuplanner/menu.cgi Questioned patient about current smoking habits. Pt. quit smoking some time ago. ETOH screening: Questions: 1-How often do you have a drink containing alcohol? 1 times per week(s) 2-How many drinks containing alcohol do you have on a typical day when you are Drinking? 2 3- How often do you have 5 or more drinks on one occasion? never documented in this encounter Plan of Treatment Not on filedocumented as of this encounter Procedures Procedure Name Priority Date/Time Associated Diagnosis Comme nts VITAMIN D DEFICIENCY Routine 02/23/2011 11:00 Symptomatic Res ults for this SCREENING PM CDT menopausal or female procedu re are in climacteric states the resul ts section. LIPID PROFILE Routine 02/23/2011 2:00 Screening for lipoid Res ults for this AM CDT disorders procedure are i n the results section. COMPREHENSIVE Routine 02/23/2011 2:00 Essential Results for this METABOLIC PANEL AM CDT hypertension, be nign procedure are in Encounter for the results long-term (current) section. use of other medications ZZCL AFF HEMOGLOBIN Routine 02/22/2011 11:03 Routine gynecolog ical Results for this AM CDT examination procedure are i n the results section. HC VENOUS COLLECTION Routine 02/22/2011 10:59 Routine gynecolo gical AM CDT examination Essential hypertension, be nign Encounter for long-term (current) use of other medications Screening for lipoid disorders Symptomatic menopausal or female climacteric states documented in this encounter Results Vitamin D deficiency screening (02/23/2011 11:00 PM CDT) P athologist Signature Vitamin D 25-OH 36 30 - 100 [facility] Total ng/mL [facility] Comment: 25-OHD3 indicates both endogenous produc tion and supplementation. 25-OHD2 is an indicator of exogenous sources, such as diet or supplementation . Therapy is based on measurement of Total 25-OHD, wi th levels <20 ng/mL indicative of Vitamin D defici ency, while levels between 20 ng/mL and 30 ng/mL sug gest insufficiency. Optimal levels are > or = 30 ng/mL. Vitamin D 25-OH D3 36 ng/mL [facility] Comment: Reference Range Not established Vitamin D 25-OH D2 <4 ng/mL [facility] Comment: Reference Range Not established NO COLLECTION DATE RECEIVED. WE HAVE USE D THE DATE THE SPECIMEN WAS RECEIVED BY IS LABORATORY THE COLLECTION DATE. IF IS IS INCORRECT, PLEASE CONTACT CLIENT SERV R[facility]ro[facility]. PHONE NUMBER: [phone] Test Performed at: [email or web address] [address] [place] [address] ??[phone] MANAV LAWS MD Specimen (Source) Anatomical Collection Method Collection Time Re ceived Time Location / / Volume Laterality Serum specimen 02/23/2011 1: 52 (specimen) AM CDT Jacquie Schmitt MD LAB - BLOOD ORDERABLES Performing Organization Address City/State/ZIP Code Phon e Number [facility] [address] [place], [place] [address] [facility] [address] [place], [place] [address] (ABNORMAL) COMPREHENSIVE METABOLIC PANEL (02/23/2011 2:00 AM CDT) athologist Signature Glucose 99 65 - 99 [facility] mg/dL [facility] Comment: ? Fasting reference interv al Urea Nitrogen 18 7 - 25 mg/dL [facility] Creatinine 0.72 0.60 - 1.18 [facility] mg/dL GFR Estimate 88 > OR = 60 [facility] mL/min/1.73m2 EGFR 102 > OR = 60 [facility] mL/min/1.73m2 BUN/Creatinine Ratio NOT APPLICABLE 6 - 22 (calc) [facility] Sodium 141 135 - 146 mmol/L [facility] Potassium 4.3 3.5 - 5.3 mmol/L [facility] Chloride 102 98 - 110 mmol/L [facility] Carbon Dioxide 26 21 - 33 mmol/L [facility] Calcium 10.0 8.6 - 10.2 mg/dL [facility] Protein Total 6.8 6.2 - 8.3 g/dL [facility] Albumin 4.7 3.6 - 5.1 g/dL [facility] Globulin Calculated 2.1 (L) 2.2 - 3.9 g/dL [facility] (calc) A/G Ratio 2.2 (H) 1.0 - 2.1 (calc) [facility] Bilirubin Total 0.7 0.2 - 1.2 mg/dL [facility] Alkaline Phosphatase 77 33 - 130 U/L [facility] AST 23 10 - 35 U/L [facility] ALT 28 6 - 40 U/L [facility] Comment: NO COLLECTION DATE RECEIVED. WE HAVE USE D THE DATE THE SPECIMEN WAS RECEIVED BY IS LABORATORY THE COLLECTION DATE. IF IS IS INCORRECT, PLEASE CONTACT CLIENT SERV Rival[facility]. PHONE NUMBER: [phone] Test Performed at: [email or web address] [place] [address] [place], [place] ??[phone] MANAV LAWS MD Specimen (Source) Anatomical Collection Method Collection Time Re ceived Time Location / / Volume Laterality Serum specimen 02/23/2011 1: 19 (specimen) AM CDT Jacquie Schmitt MD LAB - BLOOD ORDERABLES Performing Organization Address City/State/ZIP Code Phon e Number [facility] [address] [place], [place] [address] [facility] [address] [place], [place] [address] LIPID PANEL (02/23/2011 2:00 AM CDT) P athologist Signature Cholesterol 185 125 - 200 [facility] mg/dL [facility] Comment: Test Performed at: [facility] [address] [place], [place] ??[phone] MANAV LAWS MD HDL Cholesterol 60 > OR = 46 mg/dL [facility] Triglycerides 109 <150 mg/dL [facility] LDL Cholesterol Calculated 103 <130 mg/dL (calc) [facility] Comment: Desirable range <100 mg/dL for patients with CHD or diabetes and <70 mg/dL for diabetic suraj ents with known heart disease. Cholesterol/HDL Ratio 3.1 < OR = 5.0 (calc) [facility] Comment: NO COLLECTION DATE RECEIVED. WE HAVE USE D THE DATE THE SPECIMEN WAS RECEIVED BY IS LABORATORY THE COLLECTION DATE. IF IS IS INCORRECT, PLEASE CONTACT CLIENT SERV SHANIQUA. PHONE NUMBER: [phone] Specimen (Source) Anatomical Collection Method Collection Time Re ceived Time Location / / Volume Laterality Serum specimen 02/23/2011 1: 20 (specimen) AM CDT Jacquie Schmitt MD LAB - BLOOD ORDERABLES Performing Organization Address City/[facility]/ZIP Code Phon e Number [facility] [address] [place], [place] [address] [email or web address] [address] [place], [place] [address] HEMOGLOBIN [[id number]] (02/22/2011 11:03 AM CDT) athologist Signature Hemoglobin 12.9 12 - 16 [facility] GM/DL Jacquie Schmitt MD LABORATORY Performing Organization Address City/State/ZIP Code Phon e Number [facility] documented in this encounter Visit Diagnoses Diagnosis Routine gynecological examination - Prim elke Essential hypertension, benign Encounter for long-term (current) use of other medications Screening for lipoid disorders Symptomatic menopausal or female climact caren states documented in this encounter Care Teams Dx Board Operator Relationship Specialty Start Date End Date Jacquie Schmitt MD PCP - General 11/24/99 02/11/[address], [address] [place] [address] documented as of this encounter
--- OUTSIDE RECORDS SUMMARY | 2022-08-18 09:33 | XMS_ITS | Encounter Summary ---
:1945 Author Organization [facility] Address [address] [place] [address] Care Team Providers Name Role Phone Jacquie Schmitt MD Primary Care Provider Encounter Details Date Type Department Care Team Description 03/19/2009 Orders Only [facility] Jacquie Schmitt ABSTRA CTING RESULTS Physicians (Primary Dx) [address] [place] [address] [phone] Social History Tobacco Use Types Packs/Day Years Used Date Smoking Tobacco: Former Cigarettes Quit : 11/07/1995 Alcohol Use Standard Drinks/Week Comments No 0 (1 standard drink = 0.6 oz pure alcoho l) Sex Assigned at Date Recorded Female 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 documented in this encounter Results BFP SEND-OUT MAMMOGRAM (03/17/2009) Anatomical Region Laterality Modality Other Narrative 03/17/2009 [facility] [place] * Fax: [phone] [facility] [address], [place] [address] [place] [address] Age: 63 Y Work Phone: Dept No.: [id number] SHAHNAZ GLASGOW : 1945 Chart # Req. Phys: Jacquie Schmitt BILATERAL SCREENING MAMMOGRAM Exam Date: 03/17/2009 Clinic MRN: Clinic: [facility] c#: [id number] Breast symptoms: None. Previous mammography: Comparison with SI 03/11/08 and 03/23/04. Breast parenchyma: Heterogeneously dense . Comments: Tiny microcalcification groupi ng far medially right breast unchanged from prior study. Two n odular foci central deep left breast as demonstrated on MLO view also unchanged. Clip from prior core biopsy o n the left also unchanged. IMPRESSION: BI-RADS 2, BENIGN Images were reviewed with the aid of CAD (R2 v5.3). Exam results letter mailed to patient. Performed by: ANMOL Transcribed By: BRANDAN on: 03/19/2009 9:23 A M CDT Finalized By: Jonathon WILLS, on: 1:14 PM CDT Dictated By: Jonathon WILLS KENT Signed by: [facility] Page 1 of 1 Jacquie Schmitt MD GENERAL IMAGING documented in this encounter Visit Diagnoses Diagnosis ABSTRACTING RESULTS - Primary documented in this encounter Care Teams Career Technical Counselor Relationship Specialty Start Date End Date Jacquie Schmitt MD PCP - General 11/24/99 02/11/[address], [address] [place] [address] documented as of this encounter
--- OUTSIDE RECORDS SUMMARY | 2022-08-18 09:33 | XMS_ITS | Encounter Summary ---
:1945 Author Organization [facility] Address [address] [place] [address]. [place] [address] Care Team Providers Name Role Phone Jacquie Schmitt MD Primary Care Provider Reason for Visit Reason Comments Finger Encounter Details Date Type Department Care Team Description 06/11/2010 Office Visit [facility] Mary Granados, Patricio ing Nail (Primary Dx); Physicians [facility] of Finger [address] [place] [address] [address] [place] [phone] Social History Tobacco Use Types Packs/Day Years Used Date Smoking Tobacco: Former Cigarettes Quit : 11/07/1995 Alcohol Use Standard Drinks/Week Comments No 0 (1 standard drink = 0.6 oz pure alcoho l) Sex Assigned at Date Recorded Female 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 as of 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 encounter Last Filed Vital Signs Vital Sign Reading Time Taken Comments Blood Pressure 142/86 06/11/2010 6:16 PM CDT Pulse 68 06/11/2010 6:16 PM CDT Temperature 36.6 ??C (97.8 ??F) 06/11/2010 6:16 PM CDT Respiratory Rate 12 06/11/2010 6:16 PM CDT Oxygen Saturation - - Inhaled Oxygen Concentration - - Weight 93.6 kg (206 lb 6.4 oz) 06/11/2010 6:16 PM CDT Height 170.2 cm (5' 7) 06/11/2010 6:16 PM CDT Body Mass Index 32.33 06/11/2010 6:16 PM CDT documented in this encounter Progress Notes Mary Granados MD - 06/12/2010 1:34 PM CDT 703.0 Ingrowing Nail (primary encounter diagnosis) Comment: Pt here with left index finger with paronychia again for last 2 days, much worse today, can't bend much at PIP joint of finger due to swellign and pain. 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 No cough, no uri symptoms. no fever/chills, no joint pains or skin rashes. nochest pian, shortness or breath, or lower extremity edema. OBJECTIVE: Blood pressure 142/86, pulse 68, temperature 97.8 ??F (36.6 ??C), temperature source Oral, resp. rate 12, height 5' 7 (1.702 m), weight 206 lb 6.4 oz (93.622 kg). gen: pt pleasant, nad Finger index: swollen distal phalynx with erytehma and swelling most on medial side of fingernail. Attempted X with drainage but only got serosanginous fluid Plan: BACTRIM DS 800-160 MG PO TABS Unable to extract any purulent material, not ready for drainage yet, needs anbx, close monitoring, if redness spread up flexor side of finger, needs ER or ortho, The patient indicates understanding ofthese issues and agrees with the plan. Any fever to ER Bactrim to cover MRSA, Discussed medication in detail including dosing, side effects, and interactions. 681.02C Paronychia of Finger Comment Plan: BACTRIM DS 800-160 MG PO TABS documented in this encounter Nursing Notes 06/11/2010 6:15 PM CDT >> TULIO GAMBOA Lizzette Jun 11, 2010 6:19 PM shahnaz is here for a recheck on her L first finger. Questioned patient about current smoking habits. Pt. quit smoking some time ago. Body mass index is 32.33 kg/(m^2). BP Cuff left Arm Large Cuff PULSE regular My Chart: accepts documented in this encounter Plan of Treatment Not on filedocumented as of this encounter Visit Diagnoses Diagnosis Ingrowing nail - Primary Paronychia of finger Onychia and paronychia of finger documented in this encounter Care Teams Sheet Metal Erector Relationship Specialty Start Date End Date Jacquie Schmitt MD PCP - General 11/24/99 02/11/[address], [address] [place] [address] documented as of this encounter
--- OUTSIDE RECORDS SUMMARY | 2022-08-18 09:33 | XMS_ITS | Encounter Summary ---
:1945 Author Organization [facility] Address [address] [place] [id number] Care Team Providers Name Role Phone Jacquie Schmitt MD Primary Care Provider Reason for Visit Reason Comments [place] Encounter Details Date Type Department Care Team Description 05/04/2010 Office Visit [facility] Jacquie Schmitt Parony chia of Panna Maria Prateek SOL (Primary Dx) [address] [place] [phone] Social History Tobacco Use Types Packs/Day Years Used Date Smoking Tobacco: Former Cigarettes Quit : 11/07/1995 Alcohol Use Standard Drinks/Week Comments No 0 (1 standard drink = 0.6 oz pure alcoho l) Sex Assigned at Date Recorded Female 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 No fever or chills. No history of diabetes. OBJECTIVE: Fluctuant paronychia noted on the left 2nd finger nail fold. Size 0.5 cm. There is surrounding induration, erythema and tenderness. Afebrile. ASSESSMENT: Paronychia PLAN: After informed consent was obtained, using Betadine for cleansing an incision was made into the periungual fold which was then drained of purulent material. The cavity was irrigated and cleaned with immediate relief. Culture was not obtained. Procedure well tolerated. Frequent warm soaks with Dreft until abscess resolves. Return to clinic prn for pain, increased swelling or fever. documented in this encounter Nursing Notes 05/04/2010 12:15 PM CDT >> KEI MARIA Mon May 04, 2010 12:15 PM Shahnaz Phelps is here for an infected finger. Has had before. Patient declined to have their weight and height checked and because of this we are unable to calculate a BMI. Questioned patient about current smoking habits. Pt. quit smoking some time ago. There is no height or weight on file to calculate BMI. BP Cuff right Arm med Cuff PULSE regular My Chart: active documented in this encounter Plan of Treatment Not on filedocumented as of this encounter Procedures Procedure Name Priority Date/Time Associated Diagnosis Comme nts HC DRAIN SKIN ABSCESS Routine 05/04/2010 12:39 PM CDT Paronych ia of Finger SIMPLE/SINGLE documented in this encounter Visit Diagnoses Diagnosis Paronychia of finger - Primary Onychia and paronychia of finger documented in this encounter Care Teams Vb Net Programmer Relationship Specialty Start Date End Date Jacquie Schmitt MD PCP - General 11/24/99 02/11/14 [address] [facility] [address] [place] [address] documented as of this encounter
--- OUTSIDE RECORDS SUMMARY | 2022-08-18 09:33 | XMS_ITS | Encounter Summary ---
:1945 Author Organization [facility] Address [address] [place] [address] Care Team Providers Name Role Phone Jacquie Schmitt MD Primary Care Provider Reason for Referral - Closed Specialty Diagnoses / Procedures Referred By Contact Refer red To Contact Diagnoses Abnormal findings on microbiological examination of urine Jacquie Schmitt MD [address] [address] Referral ID Status Reason Start Date Expiration Date Visits Requ ested Visits Authorized [id number] Closed 02/26/2012 08/24/2012 1 1 Reason for Visit Reason Comments Physical Encounter Details Date Type Department Care Team Description 02/26/2012 Office Visit [facility] Jacquie Schmitt ynecological examination (Primary Dx); Prateek Babb MD Essential hypertension, benign; [address] OBESITY NOS; [address] , [place] [address] Screening for lipoid disorders; [place], [place] Screening f or diabetes mellitus; [id number] Abnormal findings on microbiological exa mination of urine; [phone] Vac-dis combina tions NEC (Work) Social History Tobacco Use Types Packs/Day Years Used Date Smoking Tobacco: Former Cigarettes Quit : 11/07/1995 Smokeless Tobacco: Never Alcohol Use Standard Drinks/Week Comments Yes 0 (1 standard drink = 0.6 oz pure alcoho l) rare Sex Assigned at Date Recorded Female 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 Last Filed Vital Signs Vital Sign Reading Time Taken Comments Blood Pressure 138/72 02/26/2012 9:08 AM CDT Pulse 72 02/26/2012 9:08 AM CDT Temperature 36.6 ??C (97.9 ??F) 02/26/2012 9:08 AM CDT Respiratory Rate 12 02/26/2012 9:08 AM CDT Oxygen Saturation - - Inhaled Oxygen Concentration - - Weight 93.8 kg (206 lb 12.8 oz) 02/26/2012 9:08 AM CDT Height 169.5 cm (5' 6.75) 02/26/2012 9:08 AM CDT Body Mass Index 32.63 02/26/2012 9:08 AM CDT documented in this encounter Patient Instructions Patient InstructionsSchJacquie fragoso MD - 02/26/2012 9:44 AM CDT Total calcium intake of 1500 mgm/day, vitamin D 400-800IU/day and a regular weight bearing exercise program for prevention of osteoporosis is recommended treatment at this time. 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 Menopause at age 49. No bleeding, spotting, or discharge noted. 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 HYDROCHLOROTHIAZIDE 25 MG PO TABS Route: Oral Sig:Take 0.5 tablets by mouth daily. Dispense: 45 tablet Refill: 1 2. AMLODIPINE BESYLATE 5 MG PO TABS Route: Oral Sig:Take 1 tablet by mouth daily. Dispense: 90 tablet Refill: 1 3. VITAMIN D3 PO Route: Oral Sig:Take by mouth daily. 400 IU Dispense: Refill: 4. ONE-A-DAY WOMENS 50 PLUS PO TABS Route: Oral Si TABLET DAILY Dispense: Refill: 5. METRONIDAZOLE 1 % EX GEL Route: Apply externally Sig:None Entered Dispense: Refill: 6. TRETINOIN 0.1 % EX CREA Route: Apply externally Sig:None Entered Dispense: Refill: 7. CALCIUM 600 + D 600-200 MG-UNIT OR TABS Route: Sig: Dispense: 0 Refill: 0 8. POTASSIUM CHLORIDE 10 MEQ PO TBCR Route: Oral Si-4 bananas/week Dispense: 0 Refill: 0 -- Imidazole Antifungals -- hives -- Penicillins -- hives Smoking status: Former Smoker Quit date: 11/07/1995 Smokeless tobacco: Alcohol Use: Yes 0.0 oz/week 0 drink(s) per week Comment: rare Review Of Systems Ears/Nose/Throat: negative Respiratory: No shortness of breath, dyspnea on exertion, cough, or hemoptysis Cardiovascular: HTN Gastrointestinal: colon polyps Genitourinary: seen earlier this year with constipation/ few RBC's noted on UA which needs to be rechecked OBJECTIVE: BP 138/72 Pulse 72 Temp(Src) 97.9 ??F (36.6 ??C) (Oral) Resp 12 Ht 1.695 m (5' 6.75) Wt 93.804 kg (206 lb 12.8 oz) BMI 32.63 kg/m2 General appearance: healthy, alert, no distress, cooperative, smiling and over weight Skin: Skin color, texture, turgor normal. No rashes or lesions. Ears: negative Nose/Sinuses: Nares normal. Septum midline. [...] atrophy BMI : Body mass index is 32.63 kg/(m^2). ASSESSMENT:V72.31 Routine gynecological examination (primary encounter diagnosis) Plan: HCL THIN LAY PAP,DIAG W/HPV REFLEX ([facility]), CL AFF HEMOGLOBIN (BFP) Total calcium intake of 1500 mgm/day, vitamin D 400-800IU/day and a regular weight bearing exerciseprogram for prevention of osteoporosis is recommended treatment at this time. Mammogram reviewed 401.1 Essential hypertension, benign Comment: low salt Plan: VENOUS COLLECTION, CL SPECIMEN HANDLING, OFF->LAB, COMPREHENSIVE METABOLIC PANEL ([facility]) XCMP, hydrochlorothiazide (HYDRODIURIL) 25 MG tablet, amLODIPine (NORVASC) 5 MG tablet Exercise, weight control, self care. Refilled/ recheck in 6 months. 278.00 OBESITY NOS Plan: VENOUS COLLECTION, CL SPECIMEN HANDLING, OFF->LAB, Lipid Profile ([facility]), COMPREHENSIVE METABOLIC PANEL ([facility]) XCMP Weight loss encouraged V77.91 Screening for lipoid disorders Plan: VENOUS COLLECTION, CL SPECIMEN HANDLING, OFF->LAB, Lipid Profile ([facility]) V77.1 Screening for diabetes mellitus Plan: VENOUS COLLECTION, CL SPECIMEN HANDLING, OFF->LAB, COMPREHENSIVE METABOLIC PANEL ([facility]) XCMP 791.9AY Abnormal findings on microbiological examination of urine Plan: HCL Urinalysis, Routine (P), Urine culture ([facility]), UROLOGY ADULT REFERRAL Await culture/ consult with urology for evaluation reviewed 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 documented in this encounter Nursing Notes 02/26/2012 9:15 AM CDT >> TULIO Gama Feb 26, 2012 9:22 AM Discussed the following: Colonoscopy - UTD Mammo - UTD Immunizations - shingles, info given. Pneumovax, will receive today >> TULIO Gama Feb 26, 2012 9:17 AM Shahnaz is here for a fasting px and pap. Questioned patient about current smoking habits. Pt. quit smoking some time ago. Body mass index is 32.63 kg/(m^2). BP Cuff left Arm large Cuff PULSE regular My Chart: accepts ETOH screening: Questions: 1-How often do you have a drink containing alcohol? 2 times per month(s) 2-How many drinks containing alcohol do you have on a typical day when you are Drinking? 1 3- How often do you have 5 or more drinks on one occasion? 0 per months Have you ever: @None of the patient's responses to the CAGE screening were positive / Negative CAGE score@ documented in this encounter Plan of Treatment Not on filedocumented as of this encounter Procedures Procedure Name Priority Date/Time Associated Diagnosis Comme nts ADULT UROLOGY Routine 09/03/2012 Abnormal findings on STAKER SURVEYING REFERRAL microbiological examination of urine ZZCL AFF THIN LAY Routine 02/26/2012 10:23 Routine gynecologic al Results for this PAP,DIAG W/HPV REFLEX AM CDT examination proced ure are in the results section. URINE CULTURE Routine 02/26/2012 10:03 Abnormal findings on Re sults for this AM CDT microbiological procedure ar e in examination of urine the res ults section. HCL URINALYSIS, Routine 02/26/2012 9:57 Abnormal findings on R esults for this ROUTINE AM CDT microbiological procedure ar e in examination of urine the res ults section. LIPID PROFILE Routine 02/26/2012 9:41 OBESITY NOS Results for this AM CDT Screening for lipoid procedu re are in disorders the results section. COMPREHENSIVE Routine 02/26/2012 9:41 Essential Results for this METABOLIC PANEL AM CDT hypertension, be nign procedure are in OBESITY NOS the results Screening for diabetes secti on. mellitus HC VENOUS COLLECTION Routine 02/26/2012 9:28 Essential AM CDT hypertension, be nign OBESITY NOS Screening for lipoid disorders Screening for diabetes mellitus ZZCL AFF HEMOGLOBIN Routine 02/26/2012 9:28 Routine gynecologi wes Results for this AM CDT examination procedure are i n the results section. documented in this encounter Results UROLOGY ADULT REFERRAL (09/03/2012) Narrative This result has an attachment that is no t available. Jacquie Schmitt MD REFERRAL [facility] THIN LAY PAP,DIAG W/HPV REFLEX ([facility]) (02/26/2012 10:23 AM CDT) P athologist Signature Report status CANCELED [facility] Comment: Result canceled by the ancillar y Clinical History Postmenopausal [facility] LMP POST SMITHA [facility] Last Pap Diagnosis [id number] [facility] Prev [place]x [id number] [facility] Source Cervix [facility] Statement of Adequacy [facility] Comment: Satisfactory for evaluation. Endocervical/transformation zone compone nt present. General Categorization [facility]ED [facility] Comment: Result canceled by the ancillar y Descriptive Diagnosis Negative for intraepithelial [facility] lesion or malignancy. Infection CANCELED [facility] Comment: Result canceled by the ancillar y Comment [facility] Comment: Based on the cytology result, reflex Hig h Risk HPV DNA testing was not performed. Government Program Manager: SADE HARRIS(ASCP) MICHELLE Schrader IAGNOSTICSMAXINE Review Government Program Manager CANCELED [facility] Comment: Result canceled by the ancillar y Pathologist CANCELED [facility] Comment: Result canceled by the ancillar y Specimen Anatomical Collection Method Collection Time Receive d Time (Source) Location / / Volume Laterality 02/26/2012 10:23 02/27/2012 2:55 AM CDT AM CDT Resulting Agency Comment Performing Lab Site ID: [id number] [facility] Address: [address] [place] [address] Botany Technician: Dr. Jeanmarie Becerra Jacquie Schmitt MD LABORATORY Performing Organization Address [facility] Phon e Number [facility] [address] [place], [place] [address] [facility] [address] [place], [place] [address] Urine culture ([facility]) (02/26/2012 10:03 AM CDT) P athologist Signature Urine Voided [facility] Comment: ??CULTURE, URINE, ROUTINE ?MICRO NUMBER: ?[id number] ??TEST STATUS: ? FINAL ??SPECIMEN SOURCE: ?? URINE ??SPECIMEN QUALITY: ??ADEQUATE ??RESULT: ?No Growth Specimen Anatomical Collection Method Collection Time Receive d Time (Source) Location / / Volume Laterality Urine specimen 02/26/2012 10:03 2 (specimen) AM CDT 10:09 PM CDT Resulting Agency Comment Performing Lab Site ID: [id number] Lab Name: [facility] Lab Address: [address] [place] [address] Botany Technician: Juanito Hardy M.D. Jacquie Schmitt MD LAB - MICRO GENERAL ORDERABL ES Performing Organization Address [facility] Phon e Number [facility] [address] [place], [place] [address] [facility] [address] [place], [place] [address] (ABNORMAL) HCL Urinalysis, Routine (BFP) (02/26/2012 9:57 AM CDT) [facility] gist Method Time Signature Color Urine Yellow [facility] INTERNAL Appearance Urine Clear [facility] Glucose Urine Neg neg mg/dL [facility] INTERNAL Bilirubin Urine Neg neg [facility] INTERNAL Ketones Urine Neg neg mg/dL [facility] INTERNAL Specific [place] 1.015 [facility] INTERNAL Blood Urine Small neg [facility] INTERNAL pH Arterial 7.5 (A) 5.0 - 7.0 [facility] INTERNAL Albumin Urine neg neg - neg [facility] INTERNAL mg/dL Urobilinogen Urine 0.2 0.2 - 1.0 [facility] INTERNA L EU/dL Nitrite Urine Neg NEG [facility] INTERNAL Leukocyte Esterase neg neg - neg [facility] INTERNA L Wbc, Urine Micro neg neg - 2 [facility] INTERNAL RBC Micro Urine 6-10 neg - 2 [facility] INTERNAL EP/HPF neg [facility] INTERNAL Bacteria Urine neg neg - neg [facility] INTERNAL Casts/LPF [facility] INTERNAL Miscellaneous [facility] INTERNAL Jacquie Schmitt MD LABORATORY Performing Organization Address City/State/ZIP Code Phon e Number B[facility] INTERNAL (ABNORMAL) COMPREHENSIVE METABOLIC PANEL ([facility]) XCMP (02/26/2012 9:41 AM CDT) P athologist Signature Glucose 110 (H) 65 - 99 [facility] Comment: ? Fasting reference interv al Urea Nitrogen 20 7 - 25 mg/dL [facility] Creatinine 0.74 0.50 - 0.99 mg/dL [facility] Comment: For patients >49 years of age, the refer ence limit for Creatinine is approximately 13% high er for people identified as -Mongolian. GFR Estimate 84 > OR = 60 [facility] mL/min/1.73m2 EGFR 98 > OR = 60 [facility] Mongolian mL/min/1.73m2 BUN/Creatinine NOT APPLICABLE 6 - 22 (calc) [facility] Ratio Sodium 140 135 - 146 mmol/L [facility] Potassium 4.1 3.5 - 5.3 mmol/L [facility] Chloride 101 98 - 110 mmol/L [facility] Carbon Dioxide 24 21 - 33 mmol/L [facility] Calcium 10.2 8.6 - 10.4 mg/dL [facility] Protein Total 6.9 6.2 - 8.3 g/dL [facility] Albumin 4.8 3.6 - 5.1 g/dL [facility] Globulin 2.1 (L) 2.2 - 3.9 g/dL [facility] Calculated (calc) A/G Ratio 2.3 (H) 1.0 - 2.1 (calc) [facility] Bilirubin Total 0.9 0.2 - 1.2 mg/dL [facility] Alkaline 73 33 - 130 U/L [facility] Phosphatase AST 24 10 - 35 U/L [facility] ALT 21 6 - 40 U/L [facility] Specimen Anatomical Collection Method Collection Time Receive d Time (Source) Location / / Volume Laterality Blood specimen 02/26/2012 9:41 AM 012 (specimen) CDT 10:09 PM CDT Resulting Agency Comment Performing Lab Site ID: [id number] Lab Name: [facility] Address: [address] [place] [id number] Botany Technician: Juanito Hardy M.D. Jacquie Schmitt MD LAB - BLOOD ORDERABLES Performing Organization Address City/State/ZIP Code Phon e Number [facility] [address] [place] [address] [facility] [address] [place] [address] (ABNORMAL) Lipid Profile ([facility]) (02/26/2012 9:41 AM CDT) [facility] Method Time Signature Cholesterol 204 (H) 125 - 200 [facility] mg[facility] HDL Cholesterol 61 > OR = 46 [facility] Triglycerides 71 <150 [facility] mg/[facility] LDL Cholesterol 129 <130 [facility] Calculated mg/dL [facility] Comment: Desirable range <100 mg/dL for patients with CHD or diabetes and <70 mg/dL for diabetic suraj ents with known heart disease. Cholesterol/HDL Ratio 3.3 < OR = 5.0 (calc) [facility] Non HDL Cholesterol 143 mg/dL (calc) [facility] Comment: Target for non-HDL cholesterol is 30 mg/ dL higher than LDL cholesterol target. Specimen Anatomical Collection Method Collection Time Receive d Time (Source) Location / / Volume Laterality Blood specimen 02/26/2012 9:41 AM 012 (specimen) CDT 10:09 PM CDT Resulting Agency Comment Performing Lab Site ID: CB Lab Name: [facility] Lab Address: [address] [place] [phone] Botany Technician: Juanito Hardy M.D. Jacquie Schmitt MD LAB - BLOOD ORDERABLES Performing Organization Address City/[facility] Phon e Number [facility] [address] [place] [address] 91 [facility] [address] [place] [address] CL AFF HEMOGLOBIN (BFP) (02/26/2012 9:28 AM CDT) P athologist Signature Hemoglobin 13.0 12 - 16 [facility] INTERNAL GM/DL Jacquie Schmitt MD LABORATORY Performing Organization Address [facility] Phon e Number [facility] INTERNAL documented in this encounter Visit Diagnoses Diagnosis Routine gynecological examination - Prim elke Essential hypertension, benign OBESITY NOS Obesity, unspecified Screening for lipoid disorders Screening for diabetes mellitus Abnormal findings on microbiological exa mination of urine Other nonspecific finding on examination of urine Need for prophylactic vaccination and in oculation against other combinations of diseases documented in this encounter Care Teams Cafe Operator Relationship Specialty Start Date End Date Jacquie Schmitt MD PCP - General 11/24/99 02/11/[address], [address] [place] [address] documented as of this encounter
--- OUTSIDE RECORDS SUMMARY | 2022-08-18 09:33 | XMS_ITS | Encounter Summary ---
:1945 Author Organization [facility] Address [address] [place] [address] Care Team Providers Name Role Phone Jacquie Schmitt MD Primary Care Provider Encounter Details Date Type Department Care Team Description 02/22/2012 Orders Only [facility] Jacquie Schmitt, Other screening Physicians mammogram (Primary Dx) [address], [address] [place] [address] [phone] Social History Tobacco Use Types Packs/Day Years Used Date Smoking Tobacco: Former Cigarettes Quit : 11/07/1995 Smokeless Tobacco: Never Alcohol Use Standard Drinks/Week Comments No 0 (1 standard drink = 0.6 oz pure alcoho l) Sex Assigned at Date Recorded Female 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 documented in this encounter Results Mammo Screening digital (bilat) (02/22/2012) P athologist Signature MAMMOGRAM Anatomical Region Laterality Modality Breast Bilateral Other Narrative 02/22/2012 [facility] * Fax: [phone] [address], [place] [address] [place] [address] Age: 66 Y Work Phone: Dept No.: [id number] SHAHNAZ GLASGOW : 1945 Ho ne Chart # Req. Phys: Jacquie Schmitt Clinic MRN: Clinic: [place]#: [id number] Exam: BILAT SCREEN MAMMOGRAM DIGITAL Exa m Date: 02/22/2012 SCREENING MAMMOGRAM, BILATERAL, DIGITAL w/CAD - February 22, 2012 11:29:00 AM BREAST SYMPTOMS: None reported. COMPARISON: 02/16/2011, 02/10/2010. PARENCHYMAL PATTERN: Scattered fibroglan dular densities. COMMENTS: No findings of suspicion for m alignancy. IMPRESSION: BI-RADS 1, NEGATIVE RECOMMENDATION: Annual screening mammogr aphy. Exam results letter mailed to patient. Performed by: ANMOL Transcribed By: MATT on: 02/22/2012 1:23 P M CDT Finalized By: ANEUDY MORSE M.D. on: 1:39 PM CDT Dictated By: ANEUDY MORSE M.D. by: SGT Thank You for using [facility] P age 1 of 1 Jacquie Schmitt MD IMG MAMMOGRAPHY ORDERABLES documented in this encounter Visit Diagnoses Diagnosis Other screening mammogram - Primary documented in this encounter Care Teams Fight Manager Relationship Specialty Start Date End Date Jacquie Schmitt MD PCP - General 11/24/99 02/11/[address], [address] [place] [address] documented as of this encounter
--- OUTSIDE RECORDS SUMMARY | 2022-08-18 09:33 | XMS_ITS | Encounter Summary ---
:1945 Author Organization [facility] Address [address] [place] [address] Care Team Providers Name Role Phone Jacquie Schmitt MD Primary Care Provider Reason for Referral Specialty Diagnoses / Procedures Referred By Contact Refer red To Contact [facility] [address] [place] [address] [address] [place] [address] Phone: [phone] Fax: [phone] Referral ID Status Reason Start Date Expiration Date Visits Requ ested Visits Authorized Encounter Details Date Type Department Care Team Description 03/19/2009 Orders Only [facility], Provider SCAN ARIN RESULTS Physicians (Primary Dx) [address] [place] [address] Social History Tobacco Use Types Packs/Day Years Used Date Smoking Tobacco: Former Cigarettes Quit : 11/07/1995 Alcohol Use Standard Drinks/Week Comments No 0 (1 standard drink = 0.6 oz pure alcoho l) Sex Assigned at Date Recorded Female 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 Provider Abstract REFERRAL documented in this encounter Visit Diagnoses Diagnosis SCANNING RESULTS - Primary documented in this encounter Care Teams Streetcar Motorman Relationship Specialty Start Date End Date Jacquie Schmitt MD PCP - General 11/24/99 02/11/14 [address] , [facility] [address] [place] [address] documented as of this encounter
--- OUTSIDE RECORDS SUMMARY | 2022-08-18 09:33 | XMS_ITS | Encounter Summary ---
:1945 Author Organization [place] Address [address] [place] [address] Care Team Providers Name Role Phone Jacquie Schmitt MD Primary Care Provider Reason for Visit Reason Comments Refill Request Encounter Details Date Type Department Care Team Description 02/03/2012 Refill [facility] Jacquie Schmitt MD Refill Request [address] [facility] [address] [place] [address] [place] [address] [phone] (Wo rk) Social History Tobacco Use Types Packs/Day Years Used Date Smoking Tobacco: Former Cigarettes Quit : 11/07/1995 Smokeless Tobacco: Never Alcohol Use Standard Drinks/Week Comments No 0 (1 standard drink = 0.6 oz pure alcoho l) Sex Assigned at Date Recorded Female 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 Telephone Encounter - Laura Bynum - 02/04/2012 8:56 AM CDT Refill request for Pending Prescriptions: Disp Refills hydrochlorothiazide (HYDRODIURIL) 25 MG ta15 tabl0 Sig: TAKE ONE-HALF (1/2) TABLET DAILY FOR HYPERTENSION amLODIPine (NORVASC) 5 MG tablet [[id number] tabl0 Sig: TAKE 1 TABLET DAILY FOR HYPERTENSION . Last office visit and/or labs done . Needs appt. Please authorize 30 day refill. documented in this encounter Plan of Treatment Not on filedocumented as of this encounter Visit Diagnoses Diagnosis Essential hypertension, benign - Primary documented in this encounter Care Teams Traveling Plant Operator Relationship Specialty Start Date End Date Jacquie Schmitt MD PCP - General 11/24/99 02/11/14 [address] [facility] [address] [place] [address] documented as of this encounter
--- OUTSIDE RECORDS SUMMARY | 2022-08-18 09:33 | XMS_ITS | Encounter Summary ---
:1945 Author Organization [place] Address [address] [place] [address] Care Team Providers Name Role Phone Jacquie Schmitt MD Primary Care Provider Encounter Details Date Type Department Care Team Description 08/27/2011 Telephone [facility] ysicians Jacquie Schmitt MD [address] [place] [address] [address] [place] [address] [address] [place] [address] [place], [place] [phone] (Wo rk) Social History Tobacco Use Types Packs/Day Years Used Date Smoking Tobacco: Former Cigarettes Quit : 11/07/1995 Smokeless Tobacco: Never Alcohol Use Standard Drinks/Week Comments No 0 (1 standard drink = 0.6 oz pure alcoho l) Sex Assigned at Date Recorded Female 10/17/2018 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 LM informing that we prefer that she fast, if not she can discuss with LES to come back for fasting labs for lab only. documented in this encounter Plan of Treatment Not on filedocumented as of this encounter Visit Diagnoses Not on filedocumented in this encounter Care Teams Photographic Press Screwmaker Relationship Specialty Start Date End Date Jacquie Schmitt MD PCP - General 11/24/99 02/11/14 [address] [facility] 100 [place] [address] documented as of this encounter
--- OUTSIDE RECORDS SUMMARY | 2022-08-18 09:33 | XMS_ITS | Encounter Summary ---
:1945 Author Organization [place] Address [address] [place] [address] Care Team Providers Name Role Phone Jacquie Schmitt MD Primary Care Provider Reason for Visit Reason Comments RECHECK Refill Request Encounter Details Date Type Department Care Team Description 12/11/2007 Office Visit [facility] Jacquie Schmitt, BENIGN HYPERTENSION (Primary Dx); Physicians AFTERCARE OFFSHORING MANAGER USE MEDICATN; [address], OBESITY NOS [address] [place] [id number] Social History Tobacco Use Types Packs/Day Years Used Date Smoking Tobacco: Former Cigarettes Quit : 11/07/1995 Alcohol Use Standard Drinks/Week Comments No 0 (1 standard drink = 0.6 oz pure alcoho l) Sex Assigned at Date Recorded Female 10/17/2018 7:14 PM DRIVER/MERCHANDISER documented as of this encounter Last Filed Vital Signs Vital Sign Reading Time Taken Comments Blood Pressure 122/82 12/11/2007 10:00 AM DRIVER/MERCHANDISER Pulse 80 12/11/2007 10:00 AM DRIVER/MERCHANDISER Temperature 36.9 ??C (98.5 ??F) 12/11/2007 10:00 AM DRIVER/MERCHANDISER Respiratory Rate 12 12/11/2007 10:00 AM DRIVER/MERCHANDISER Oxygen Saturation - - Inhaled Oxygen Concentration - - Weight 97.1 kg (214 lb) 12/11/2007 10:00 AM DRIVER/MERCHANDISER Height 170.2 cm (5' 7) 12/11/2007 10:00 AM DRIVER/MERCHANDISER Body Mass Index 33.52 12/11/2007 10:00 AM DRIVER/MERCHANDISER documented in this encounter Progress Notes Jacquie Schmitt - 12/11/2007 10:19 AM CST SUBJECTIVE: Shahnaz Phelps is an 62 year old female who presents for evaluation [...] elevated blood pressure: 60 Cardiovascular risk factors: previous smoker, family history, hypertension, obesity, sedentary life style and stress Use of agents associated with hypertension: none History of renal disease: negative History of flank trauma: negative Current Outpatient Rx Name Route Sig Dispense Refill ??? POTASSIUM CHLORIDE 10 MEQ OR TBCR Oral 3-4 bananas/week 0 0 ??? NASACORT AQ 55 MCG/ACT NA AERS Nasal INHALE 2 SPRAYS IN EACH NOSTRIL ONE DAILY 3 MONTHS 3 ??? REPLENS VA GEL Vaginal 1 appl qweek 0 0 ??? GLUCOSAMINE CHONDROITIN OR TABS Oral 1 daily, Dr love 0 0 ??? RETIN-A MICRO 0.04 % EX GEL Apply externally at bedtime, Dr Hopper 0 ??? FINACEA 15 % EX GEL Apply externally apply in the am, Dr Hopper 0 0 ??? CALCIUM 600 + D 600-200 MG-UNIT OR TABS 0 0 Allergies Allergen Reactions ??? Imidazole Antifungals hives ??? Penicillins hives History Substance Use Topics ??? Tobacco Use: Quit Quit date: 11/07/1995 ??? Alcohol Use: No OBJECTIVE: BP 122/82 Pulse 80 Temp (Src) 98.5 (Oral) Resp 12 Ht 5' 7 (1.70m) Wt 214 lbs (97.1kg) LMP Postmenopausal Repeat BP R arm seated = 122/82 with large size cuff. Fundi: negative Thyroid: normal to inspection and palpation Lungs: negative, Percussion normal. Good diaphragmatic excursion. Lungs clear Heart: negative, PMI normal. No lifts, heaves, or thrills. RRR. No murmurs, clicks gallops or rub Peripheral pulses: radial=4/4, femoral=4/4, popliteal=4/4, dorsalis pedis=4/4, BMI : Body mass index is 33.51 kg/(m^2). ASSESSMENT: Essential hypertension Plan: 1) Medication: continue current medication regimen unchanged 2) Dietary sodium restriction 3) Regular aerobic exercise. Weight loss encouraged and options discussed. 4) Recheck in 6 months, sooner should new symptoms or problems arise. Patient Education: Reviewed risks of hypertension and principles of treatment. ER/MERCHANDISER documented in this encounter Nursing Notes 12/11/2007 10:00 AM CST >> EVE SIMON 12/11/2007 10:05 am Patient is here for a recheck and refill of there medication. Questioned patient about current smoking habits. Pt. quit smoking some time ago. CLASSIFICATION OF OVERWEIGHT AND OBESITY BY BMI Obesity Class BMI(kg/m2) Underweight < 18.5 Normal 18.5-24.9 Overweight 25.0-29.9 OBESITY I 30.0-34.9 II 35.0-39.9 EXTREME OBESITY III >40 Patient's BMI Body mass index is 33.51 kg/(m^2). Http://hin.nhlbi.nih.gov/menuplanner/menu.cgi documented in this encounter Plan of Treatment Not on filedocumented as of this encounter Procedures Procedure Name Priority Date/Time Associated Diagnosis Comme nts HCL POTASSIUM Routine 12/11/2007 10:47 Benign Hyperten miky Results for this AM DRIVER/MERCHANDISER Aftercare Engineer Byproduct procedur e are in Use Medicatn the results section. HC VENOUS Routine 12/11/2007 10:31 Benign Hypertension COLLECTION AM DRIVER/MERCHANDISER documented in this encounter Results POTASSIUM (12/11/2007 10:47 AM DRIVER/MERCHANDISER) P athologist Signature Potassium 4.58 3.5 - 5.5 [facility] mval/L Jacquie Schmitt MD LABORATORY Performing Organization Address City/State/ZIP Code Phon e Number [facility] documented in this encounter Visit Diagnoses Diagnosis Essential hypertension, benign - Primary Encounter for long-term (current) use of other medications Obesity, unspecified documented in this encounter Care Teams Student Truck Driver Relationship Specialty Start Date End Date Jacquie Schmitt MD PCP - General 11/24/99 02/11/[address] , [facility] 100 [place] [address] documented as of this encounter
--- OUTSIDE RECORDS SUMMARY | 2022-08-18 09:33 | XMS_ITS | Encounter Summary ---
:1945 Author Organization [place] Address [address] [place] [address] Care Team Providers Name Role Phone Jacquie Schmitt MD Primary Care Provider Reason for Visit Reason Comments Eye Problem Encounter Details Date Type Department Care Team Description 12/14/2010 Office Visit [facility] Jacquie Schmitt Chalaz ion (Primary Dx) Physicians [address] [place] [address], [place] [address] [address] [phone] Social History Tobacco Use Types Packs/Day Years Used Date Smoking Tobacco: Former Cigarettes Quit : 11/07/1995 Alcohol Use Standard Drinks/Week Comments No 0 (1 standard drink = 0.6 oz pure alcoho l) Sex Assigned at Date Recorded Female 10/17/2018 7:14 PM WEB DEVELOPMENT CONSULTANT documented as of this encounter Last Filed Vital Signs Vital Sign Reading Time Taken Comments Blood Pressure 120/80 12/14/2010 12:19 PM WEB DEVELOPMENT CONSULTANT Pulse 76 12/14/2010 12:19 PM WEB DEVELOPMENT CONSULTANT Temperature 36.8 ??C (98.2 ??F) 12/14/2010 12:19 PM WEB DEVELOPMENT CONSULTANT Respiratory Rate 12 12/14/2010 12:19 PM WEB DEVELOPMENT CONSULTANT Oxygen Saturation - - Inhaled Oxygen Concentration - - Weight - - Height - - Body Mass Index - - documented in this encounter Progress Notes Jacquie Schmitt MD - 12/14/2010 1:28 PM CST SUBJECTIVE: 65 year old female complaining of right lower eyelid tenderness and now swelling for 5 day(s). The patient describes vision is good and no discharge noted. The patient denies a history of trauma but uses mascara and an eyeliner daily. Smoking history: no. Relevant past medical history: positive for acne. OBJECTIVE: The patient appears healthy, alert, no distress and cooperative. EYE: Eyes are normal. PERRLA, corneas and conjunctivae normal. Fundi are normal, no papilledema, hemorrhages or exudates. No AV crossing changes. Right lower eyelid chalazion noted in the medial corner EARS: negative NOSE/SINUS: Nares normal. Septum midline. Mucosa normal. No drainage or sinus tenderness. THROAT: normal NECK:Neck supple. No adenopathy. Thyroid symmetric, normal size,, Carotids without bruits. CHEST: Clear ASSESSMENT: 373.2 Chalazion (primary encounter diagnosis) Comment: warm pack reviewed Plan: tobramycin (TOBREX) 0.3 % ophthalmic solution Monitor for any worrisome symptoms. DEVELOPMENT CONSULTANT documented in this encounter Nursing Notes 12/14/2010 12:00 PM CST >> EVE Barry ALFRED Mon Dec 14, 2010 12:20 PM Patient is here for an issues with her right eye. BP done on the left arm, with a lg sized cuff. Pulse - regular My Chart - accepts CLASSIFICATION OF OVERWEIGHT AND OBESITY BY BMI Obesity Class BMI(kg/m2) Underweight < 18.5 Normal 18.5-24.9 Overweight 25.0-29.9 OBESITY I 30.0-34.9 II 35.0-39.9 EXTREME OBESITY III >40 Patient's BMI There is no height or weight on file to calculate BMI. http://hin.nhlbi.nih.gov/menuplanner/menu.cgi Questioned patient about current smoking habits. Pt. quit smoking some time ago. Patient refused to have their weight and height checked and because of this we are unable to calculate a BMI. documented in this encounter Plan of Treatment Not on filedocumented as of this encounter Visit Diagnoses Diagnosis Chalazion - Primary documented in this encounter Care Teams Electroplater Relationship Specialty Start Date End Date Jacquie Schmitt MD PCP - General 11/24/99 02/11/14 [address] , [facility] 100 [place] [address] documented as of this encounter
--- OUTSIDE RECORDS SUMMARY | 2022-08-18 09:33 | XMS_ITS | Encounter Summary ---
:1945 Author Organization [place] Address [address] [place] [address]. [place] [address] Care Team Providers Name Role Phone Jacquie Schmitt MD Primary Care Provider Reason for Visit Reason Comments Pharyngitis Encounter Details Date Type Department Care Team Description 02/25/2009 Office Visit [facility] Mary Granados, René messina Physicians Hypertension, Benign [address] [place] [address] (Primary Dx) [address] [facility] [address] [place] [phone] Social History Tobacco Use Types Packs/Day Years Used Date Smoking Tobacco: Former Cigarettes Quit : 11/07/1995 Alcohol Use Standard Drinks/Week Comments No 0 (1 standard drink = 0.6 oz pure alcoho l) Sex Assigned at Date Recorded Female 10/17/2018 7:14 PM HAZARD MITIGATION OFFICER documented as of this encounter Last Filed Vital Signs Vital Sign Reading Time Taken Comments Blood Pressure 140/90 02/25/2009 10:50 AM CDT Pulse 64 02/25/2009 10:50 AM CDT Temperature 36.7 ??C (98.1 ??F) 02/25/2009 10:50 AM CDT Respiratory Rate - - Oxygen Saturation - - Inhaled Oxygen Concentration - - Weight 98.6 kg (217 lb 6.4 oz) 02/25/2009 10:50 AM CDT Height 171.5 cm (5' 7.5) 02/25/2009 10:50 AM CDT Body Mass Index 33.55 02/25/2009 10:50 AM CDT documented in this encounter Progress Notes Mary Granados MD - 02/25/2009 11:21 AM CDT SUBJECTIVE: Shahnaz Phelps is a 63 year old female who presents to clinic with a 2 week(s) history of dry, tickling cough, barky cough, sore throat, ear pain and ear tugging. Associated symptoms include lowgrade fever, lethargy, irritability and headache. Hisotry of sinus infections or allergies: Yes but this doesn't feel like sinus infection Switched to ACEI 2 months ago and thinks the timing is possible for side effect Has tried nothing for relief Patient Active Problem List Diagnoses Code ??? PERS HX COLONIC POLYPS V12.72 ??? ACNE NEC 706.1 ??? DIVERTICULOSIS OF COLON W/O BLEED 562.10 ??? OSTEOARTHROS NOS-UNSPEC 715.90 ??? 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 OBESITY NOS 278.00 Current outpatient prescriptions Medication Sig Dispense Refill ??? MACROBID 100 MG OR CAPS ONE CAPSULE TWICE DAILY ??? LISINOPRIL-HYDROCHLOROTHIAZIDE 10-12.5 MG OR TABS ONE DAILY IN THE MORNING ??? POTASSIUM CHLORIDE 10 MEQ OR TBCR 3-4 bananas/week ??? RETIN-A MICRO 0.04 % EX GEL at bedtime Dr Hopper ??? CALCIUM 600 + D 600-200 MG-IU OR TABS OBJECTIVE: Blood pressure 140/90, pulse 64, temperature 98.1 ??F (36.7 ??C), height 5' 7.5 (1.715 m), weight 217 lb 6.4 oz (98.612 kg), last menstrual period Postmenopausal. Gen: pt non-ill appearing eyes: PERRL, otherwise clear TM's: clear Facial tenderness: no Nose: swollen turbinates bilaterally, clear discharge OP: Mild erythema, no exudates neck: supple, no NAD CV: RRR Lungs: Clear Abd: soft, NT, ND Ext: good cap refill, no extremity edema ASSESSMENT: Tickling cough, dryness in throat/ cough could be side effect of lisinopril, on this 2 months Will d/c lisinopril and start norvasc separately, f/u in 1 month PLAN: 1. Medications: per orders. Discussed medication in detail including dosing, side effects, and interactions. 2.Antipyretics as needed. Over the counter decongestants recommended for symptoms control. Encouragefluid intake 3.Call if symptoms worsen or if sx's continue beyond 7-10 days documented in this encounter Nursing Notes 02/25/2009 10:45 AM CDT >> JAMES En Hunter Feb 25, 2009 10:54 AM Pt here for sore throat and ear pain starting. Used lg BP Cuff on pts right arm. Pts Pulse was regular. Pt was offered to sign up for My Chart and pt accepts. Questioned patient about current smoking habits. Pt. quit smoking some time ago. CLASSIFICATION OF OVERWEIGHT AND OBESITY BY BMI Obesity Class BMI(kg/m2) Underweight < 18.5 Normal 18.5-24.9 Overweight 25.0-29.9 OBESITY I 30.0-34.9 II 35.0-39.9 EXTREME OBESITY III >40 Patient's BMI Body mass index is 33.55 kg/(m^2). Http://hin.nhlbi.nih.gov/menuplanner/menu.cgi documented in this encounter Plan of Treatment Not on filedocumented as of this encounter Visit Diagnoses Diagnosis Essential hypertension, benign - Primary documented in this encounter Care Teams Nuclear Equipment Research Engineer Relationship Specialty Start Date End Date Jacquie Schmitt MD PCP - General 11/24/99 02/11/[address], [place] [address] [place] [address] documented as of this encounter
--- OUTSIDE RECORDS SUMMARY | 2022-08-18 09:33 | XMS_ITS | Encounter Summary ---
:1945 Author Organization [place] Address [address] [place] [address] Care Team Providers Name Role Phone Jacquie Schmitt MD Primary Care Provider Encounter Details Date Type Department Care Team Description 06/01/2010 Results Only [facility] Endoscopy Jacquie Huitron MD [place] [address] [facility] [address] [facility] 100 [place] [address] [place], [place] [phone] (Wo rk) Social History Tobacco Use Types Packs/Day Years Used Date Smoking Tobacco: Former Cigarettes Quit : 11/07/1995 Alcohol Use Standard Drinks/Week Comments No 0 (1 standard drink = 0.6 oz pure alcoho l) Sex Assigned at Date Recorded Female 10/17/2018 7:14 PM 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 documented in this encounter Results COLONOSCOPY (06/01/2010 7:45 AM CDT) [facility] Method Time Signature COLONOSCOPY [facility] RAD IOLOGY RESULTS Patient Name: Shahnaz adams ?Gender: F ? Procedure Date: 06/01/2010 7: 45 AM ? Date of : 1945 ? Age: 64 ? Admit Type: Outpatient ? Attending MD: Enrique Mesa MD ? Procedure: ? Colonoscopy Indications: ? Personal history of colonic polyps Providers: ? Enrique Mesa MD Referring MD: ?Jacquie Schmitt MD Medicines: ? Fe ntanyl 100 micrograms IV, Midazolam 4 mg IV, Atropine ? 0.6 mg IV Complications: ? No immediate complications Procedure: ? - Prior to the procedure, a History and Physical was ? performed, and patient medication allergies were ? reviewed. The patient is competent. The risks and ? benefits of the procedure and the sedation options and ? risks were discussed with the patient. All questions ? were answered and informed consent was obtained. Patient ? identification and proposed procedure were verified by ? the physician in the procedure room. Mental Status ? Examination: alert and oriented. Airway Examination: ? normal oropharyng eal airway and neck mobility. ? Respiratory Examination: clear to auscultation. CV ? Examination: normal. ASA Grade Assessment: I - A normal, ? healthy patient. After reviewing the risks and benefits, ? the patient was deemed in satisfactory condition to ? undergo the procedure. The anesthesia plan was to use ? moderate sedation / analgesia (conscious sedation). ? Immediately prior to administration of medications, the ? patient w as re-assessed for adequacy to receive ? sedatives. The heart rate, respiratory rate, oxygen ? saturations, blood pressure, adequacy of pulmonary ? ventilation, and response to care were monitored ? throughout the procedure. The physical status of the ? patient was re-assessed aft er the procedure. ? After obtaining informed consent, the colonoscope was ? passed under direct vision. Throughout the procedure, ? the patie nt's blood pressure, pulse, and oxygen ? saturations were monitored continuously. The [id number]-[id number] ? #[id number] was introduced through the anus and advanced to ? the cecum, identified by appendiceal orifice & IC valve. ? The colonoscopy was performed without difficulty. The ? patient tolerated the procedure well. The quality of the ? prep was good. ? Findings: ? The digital rectal exam was normal. The rectum, sigmo id colon, ? descending colon, splenic flexure, transverse c olon, hepatic flexure, ? ascending colon, cecum and ileocecal valve appeared n ormal. The ? retroflexed view of the anal verge was normal and kylah wed no anal or ? rectal abnormalities. ? Impression: ?- The rectum, sigmoid colon, descending colon, splenic ? flexure, transverse colon, hepatic flexure, ascending ? colon, cecum and ileocecal valve are normal. Recommendation: ?- Discharge patient to home (ambulat ory). ? - Repeat colonoscopy in 4 years for surveillance. ? - Return to primary care phys ician PRN. ? Jhonny Mesa M.D Enrique Mesa MD Signed Date: 06/01/2010 8:40 AM Number of Addenda: 0 I was physically present for the entire viewing portion of t he exam. Note initiated on 06/01/2010 7:43 AM Specimen (Source) Anatomical Collection Method Collection Time Re ceived Time Location / / Volume Laterality 06/01/2010 7:45 AM CDT Jacquie Schmitt MD PROCEDURES Performing Organization Address City/State/ZIP Code Phon e Number RADIOLOGY RESULTS documented in this encounter Visit Diagnoses Not on filedocumented in this encounter Care Teams Artificial Flowers Dyer Relationship Specialty Start Date End Date Jacquie Schmitt MD PCP - General 11/24/99 02/11/14 [address] [facility] 100 [place] [address] documented as of this encounter
--- OUTSIDE RECORDS SUMMARY | 2022-08-18 09:33 | XMS_ITS | Encounter Summary ---
:1945 Author Organization [place] Address [address] [place] [address] Care Team Providers Name Role Phone Jacquie Schmitt MD Primary Care Provider Encounter Details Date Type Department Care Team Description 02/12/2010 Orders Only [facility] Jacquie Schmitt ABSTRA CTING RESULTS Physicians (Primary Dx) [address] [place] [address] [phone] Social History Tobacco Use Types Packs/Day Years Used Date Smoking Tobacco: Former Cigarettes Quit : 11/07/1995 Alcohol Use Standard Drinks/Week Comments No 0 (1 standard drink = 0.6 oz pure alcoho l) Sex Assigned at Date Recorded Female 10/17/2018 7:14 PM AUTOMATIC 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 documented in this encounter Results [facility] SEND-OUT MAMMOGRAM (02/10/2010) Anatomical Region Laterality Modality Other Narrative 02/10/2010 [facility] [place] * Fax: [phone] [facility] [address], [place] [address] [place] [address] Age: 64 Y Work Phone: Dept No.: [id number] SHAHNAZ GLASGOW : 1945 Chart # Req. Phys: Jacquie Schmitt [facility] MRN: Clinic: [facility] c#: [id number] Exam: BILATERAL SCREENING MAMMOGRAM / NO NBILLABL Exam Date: 02/10/2010 Breast symptoms: None. Previous mammography: Comparison with SI 03/17/09 and 03/29/05. Breast parenchyma: Heterogeneously dense . Comments: Stable tiny cluster of microca lcifications medially on the right. Clip remains from prior core biopsy central superior deep on the left. Ill-defined nodular density approximatel y 11 o? clock position 8 to 9 cm from the nipple on the right. Di agnostic mammographic views and ultrasound are leal ggested in further evaluation. IMPRESSION: BI-RADS 0, INCOMPLETE: NEED ADDITIONAL IMAGING, RIGHT Recommendation: Recommend additional johan mographic views and ultrasound, we will attempt to arrange t his with the patient. Images were reviewed with the aid of CAD (R2 v5.3). Exam results letter mailed to patient. MAS Performed by: Transcribed By: BRANDAN on: 02/12/2010 8:10 A M CDT Finalized By: Jonathon WILLS, on: 0 12:48 PM CDT Dictated By: Jonathon WILLS KENT Signed by : [facility] Page 1 of 1 Jacquie Schmitt MD GENERAL IMAGING documented in this encounter Visit Diagnoses Diagnosis ABSTRACTING RESULTS - Primary documented in this encounter Care Teams Spun Paste Machine Operator Relationship Specialty Start Date End Date Jacquie Schmitt MD PCP - General 11/24/99 02/11/[address], [place] [address] [place] [address] documented as of this encounter
--- OUTSIDE RECORDS SUMMARY | 2022-08-18 09:33 | XMS_ITS | Encounter Summary ---
:1945 Author Organization [facility] Address [address] [place] [address] Care Team Providers Name Role Phone Jacquie Schmitt MD Primary Care Provider Reason for Visit Reason Comments RECHECK Encounter Details Date Type Department Care Team Description 09/07/2010 Office Visit [facility] Jacquie Schmitt, René messina Physicians hypertension, benign [address], (Primary Dx) [address] [place] [address] [phone] Social History Tobacco Use Types Packs/Day Years Used Date Smoking Tobacco: Former Cigarettes Quit : 11/07/1995 Alcohol Use Standard Drinks/Week Comments No 0 (1 standard drink = 0.6 oz pure alcoho l) Sex Assigned at Date Recorded Female 10/17/2018 7:14 PM 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 documented as of this encounter Last Filed Vital Signs Vital Sign Reading Time Taken Comments Blood Pressure 124/76 09/07/2010 12:40 PM CDT Pulse 76 09/07/2010 12:40 PM CDT Temperature 36.8 ??C (98.2 ??F) 09/07/2010 12:40 PM CDT Respiratory Rate 12 09/07/2010 12:40 PM CDT Oxygen Saturation - - Inhaled Oxygen Concentration - - Weight 93.4 kg (206 lb) 09/07/2010 12:40 PM CDT Height 169.5 cm (5' 6.75) 09/07/2010 12:40 PM CDT Body Mass Index 32.51 09/07/2010 12:40 PM CDT documented in this encounter Progress Notes Jacquie Schmitt MD - 09/07/2010 1:45 PM CDT SUBJECTIVE: Shahnaz Phelps is an 65 year old female who presents for evaluation [...] Rx Name Route Sig Dispense Refill ??? AMLODIPINE BESYLATE 5 MG PO TABS Oral Take 1 tablet by mouth daily. 90 tablet 1 ??? HYDROCHLOROTHIAZIDE 12.5 MG PO CAPS Oral Take 1 capsule by mouth every morning. 90 capsule 1 ??? ONE-A-DAY WOMENS 50 PLUS PO TABS [...] 11/07/1995 ??? Alcohol Use: No OBJECTIVE: BP 124/76 Pulse 76 Temp(Src) 98.2 ??F (36.8 ??C) (Oral) Resp 12 Ht 1.695 m (5' 6.75) Wt 93.441 kg (206 lb) Repeat BP R arm seated = 124/76 with large size cuff. Fundi: negative Thyroid: [...] noted. BMI : Body mass index is 32.51 kg/(m^2). ASSESSMENT: Essential hypertension Plan: 1) Medication: continue current medication regimen unchanged 2) Dietary sodium restriction 3) Regular aerobic exercise and weight loss encouraged. 4) Recheck in 6 months fasting, sooner should new symptoms or problems arise. Patient Education: Reviewed risks of hypertension and principles of treatment. documented in this encounter Nursing Notes 09/07/2010 12:30 PM CDT >> EVE SIMON Mon Sep 07, 2010 12:43 PM Patient is here for a recheck and refill of there medication. BP done on the right arm, with a lg sized cuff. Pulse - regular My Chart - accepts CLASSIFICATION OF OVERWEIGHT AND OBESITY BY BMI Obesity Class BMI(kg/m2) Underweight < 18.5 Normal 18.5-24.9 Overweight 25.0-29.9 OBESITY I 30.0-34.9 II 35.0-39.9 EXTREME OBESITY III >40 Patient's BMI Body mass index is 32.51 kg/(m^2). http://hin.nhlbi.nih.gov/menuplanner/menu.cgi Questioned patient about current smoking habits. Pt. quit smoking some time ago. documented in this encounter Plan of Treatment Not on filedocumented as of this encounter Visit Diagnoses Diagnosis Essential hypertension, benign - Primary documented in this encounter Care Teams Forge Press Operator Relationship Specialty Start Date End Date Jacquie Schmitt MD PCP - General 11/24/99 02/11/[address], [facility] [address] [place] [address] documented as of this encounter
--- OUTSIDE RECORDS SUMMARY | 2022-08-18 09:33 | XMS_ITS | Encounter Summary ---
:1945 Author Organization [place] Address [address] [place] [address] Care Team Providers Name Role Phone Jacquie Schmitt MD Primary Care Provider Reason for Visit Reason Comments Medication Request Encounter Details Date Type Department Care Team Description 12/02/2008 Office Visit [facility] Jacquie Schmitt Essent ial Hypertension, Benign (Primary Dx); Physicians OBESITY NOS [address] , [facility] [address] [phone] Social History Tobacco Use Types Packs/Day Years Used Date Smoking Tobacco: Former Cigarettes Quit : 11/07/1995 Alcohol Use Standard Drinks/Week Comments No 0 (1 standard drink = 0.6 oz pure alcoho l) Sex Assigned at Date Recorded Female 10/17/2018 7:14 PM 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 SPECIALIST documented as of this encounter Last Filed Vital Signs Vital Sign Reading Time Taken Comments Blood Pressure 130/88 12/02/2008 10:45 AM PROTEIN SPECIALIST Pulse 60 12/02/2008 10:45 AM PROTEIN SPECIALIST Temperature 36.8 ??C (98.2 ??F) 12/02/2008 10:45 AM PROTEIN SPECIALIST Respiratory Rate 12 12/02/2008 10:45 AM PROTEIN SPECIALIST Oxygen Saturation - - Inhaled Oxygen Concentration - - Weight 97.5 kg (215 lb) 12/02/2008 10:45 AM PROTEIN SPECIALIST Height 170.2 cm (5' 7) 12/02/2008 10:45 AM PROTEIN SPECIALIST Body Mass Index 33.67 12/02/2008 10:45 AM PROTEIN SPECIALIST documented in this encounter Progress Notes Jacquie Schmitt - 12/02/2008 11:16 AM CST SUBJECTIVE: Shahnaz Phelps is an 63 year old female who presents for evaluation of hypertension. She indicates that she is feeling well and denies any symptoms referable to her elevated blood pressure. Specifically denies chest pain, palpitations, dyspnea, orthopnea, PND or peripheral edema. Current medication regimen is as listed below. Patient denies any side effects of medication. BP at home has been consistently elevated. Weight gain noted this winter and less exercise as well. Family history: positive for hypertension and cardiovascular disease Age at onset of elevated blood pressure: 60 Cardiovascular risk factors: family history, hypertension, obesity and stress Use of agents associated with hypertension: none History of renal disease: negative History of flank trauma: negative Current Outpatient Rx Name Route Sig Dispense Refill ??? POTASSIUM CHLORIDE 10 MEQ OR TBCR Oral 3-4 bananas/week 0 0 ??? REPLENS VA GEL Vaginal 1 appl [...] 11/07/1995 ??? Alcohol Use: No OBJECTIVE: BP 130/88 Pulse 60 Temp (Src) 98.2 ??F (36.8 ??C) (Oral) Resp 12 LMP Postmenopausal Repeat BP R arm seated = 130/88 with large size cuff. Fundi: WNL Thyroid: normal to inspection and palpation Lungs: [...] noted. ASSESSMENT: Essential hypertension Plan: 1) Medication: begin: lisinopril/HCTZ for better control. Await lab work 2) Dietary sodium restriction 3) Regular aerobic exercise 4) Recheck in 3 months for CORRECTION LIEUTENANT/ breast exam, pap done 11/2008, sooner should new symptoms or problems arise. Patient Education: Reviewed risks of hypertension and principles of treatment. EIN SPECIALIST documented in this encounter Nursing Notes 12/02/2008 10:45 AM CST >> KEI Valadez Dec 02, 2008 10:52 AM Shahnaz Phelps is here for a blood presure check. Patient refused to have their weight and height checked and because of this we are unable to calculate a BMI. Questioned patient about current smoking habits. Pt. quit smoking some time ago. There is no height or weight on file for this encounter. BP Cuff right Arm medium Cuff PULSE regular My Chart: active documented in this encounter Plan of Treatment Not on filedocumented as of this encounter Procedures Procedure Name Priority Date/Time Associated Comments Diagnosis HCL ELECTROLYTE PANEL Routine 12/03/2008 4:00 AM Essential Results for this PROTEIN SPECIALIST Hypertension, procedure are in Benign the results section. HC VENOUS COLLECTION Routine 12/02/2008 11:17 Essential AM PROTEIN SPECIALIST Hypertension, Benign documented in this encounter Results A.M.A. ELECTROLYTE PANEL (12/03/2008 4:00 AM PROTEIN SPECIALIST) athologist Signature Sodium 142 135 - 146 [facility] mmol/L [facility] Potassium 4.5 3.5 - 5.3 [facility] mmol/L [facility] Chloride 104 98 - 110 [facility] mmol/L [facility] Carbon Dioxide 26 21 - 33 [facility] mmol/L [facility] Comment: NO COLLECTION DATE RECEIVED. WE HAVE USE D THE DATE THE SPECIMEN WAS RECEIVED BY [facility] THE COLLECTION DATE. IF IS IS INCORRECT, PLEASE CONTACT CLIENT SERV [employer]. PHONE NUMBER: [phone] Test performed at [facility] [address] ??[id number] Director: MANAV LAWS M.D. Specimen (Source) Anatomical Collection Method Collection Time Re ceived Time Location / / Volume Laterality 12/03/2008 1:43 AM PROTEIN SPECIALIST Jacquie Schmitt MD LABORATORY Performing Organization Address City/State/ZIP Code Phon e Number [facility] [address] [place], [place] [address] [facility] [address] [place], [place] [address] documented in this encounter Visit Diagnoses Diagnosis Essential hypertension, benign - Primary OBESITY NOS Obesity, unspecified documented in this encounter Care Teams Bridges Supervisor Relationship Specialty Start Date End Date Jacquie Schmitt MD PCP - General 11/24/99 02/11/[address], [facility] 100 [place] [address] documented as of this encounter
--- OUTSIDE RECORDS SUMMARY | 2022-08-18 09:33 | XMS_ITS | Encounter Summary ---
:1945 Author Organization [facility] Address [address] [place] [address] Care Team Providers Name Role Phone Jacquie Schmitt MD Primary Care Provider Reason for Visit Reason Comments RECHECK blood pressure Encounter Details Date Type Department Care Team Description 03/24/2009 Office Visit [facility] Jacquie Schmitt Essent ial Hypertension, Benign (Primary Dx); Physicians OBESITY NOS [address] , [facility] [address] [phone] Social History Tobacco Use Types Packs/Day Years Used Date Smoking Tobacco: Former Cigarettes Quit : 11/07/1995 Alcohol Use Standard Drinks/Week Comments No 0 (1 standard drink = 0.6 oz pure alcoho l) Sex Assigned at Date Recorded Female 10/17/2018 7: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 documented as of this encounter Last Filed Vital Signs Vital Sign Reading Time Taken Comments Blood Pressure 120/80 03/24/2009 7:55 AM CDT Pulse 64 03/24/2009 7:55 AM CDT Temperature 36.8 ??C (98.2 ??F) 03/24/2009 7:55 AM CDT Respiratory Rate 12 03/24/2009 7:55 AM CDT Oxygen Saturation - - Inhaled Oxygen Concentration - - Weight 98.4 kg (217 lb) 03/24/2009 7:55 AM CDT Height 171.5 cm (5' 7.5) 03/24/2009 7:55 AM CDT Body Mass Index 33.49 03/24/2009 7:55 AM CDT documented in this encounter Progress Notes Jacquie Schmitt - 03/24/2009 8:36 AM CDT SUBJECTIVE: Shahnaz Phelps is an 63 year old female who presents for evaluation of hypertension. She indicates that she is feeling well and denies any symptoms referable to her elevated blood pressure. Cough resolved with mild intermittent cough related to sinus congestion. See last visit and switch off lisinopril. Normal pap smear and mammogram with DR Chauhan, COMPUTER TECH. Specifically denies chest pain, palpitations, dyspnea, orthopnea, PND or peripheral edema. Current medication regimen is as listed below. Patient denies any side effects of medication. Family history: positive for hypertension Age at onset of elevated blood pressure: 60 Cardiovascular risk factors: family history, hypertension, obesity, sedentary life style and stress Use of agents associated with hypertension: none History of renal disease: negative History of flank trauma: negative Current Outpatient Rx Name Route Sig Dispense Refill ??? NORVASC 5 MG OR TABS Oral ONE DAILY 3 MONTHS 0 ??? HYDROCHLOROTHIAZIDE 12.5 MG OR CAPS Oral ONE DAILY IN THE MORNING 3 MONTHS 1 ??? POTASSIUM CHLORIDE 10 MEQ OR TBCR Oral 3-4 bananas/week 0 0 ??? RETIN-A MICRO 0.04 % EX GEL Apply externally at bedtime, Dr Hopper 0 ??? CALCIUM 600 + D 600-200 MG-UNIT OR TABS 0 0 ??? MACROBID 100 MG OR CAPS Oral ONE CAPSULE TWICE DAILY 14 0 Allergies Allergen Reactions ??? Imidazole Antifungals hives ??? Penicillins hives History Substance Use Topics ??? Tobacco Use: Quit Quit date: 11/07/1995 ??? Alcohol Use: No OBJECTIVE: BP 120/80 Pulse 64 Temp (Src) 98.2 ??F (36.8 ??C) (Oral) Resp 12 Ht 5' 7.5 (1.715 m) Wt 217 lb (98.431 kg) LMP Postmenopausal Repeat BP R arm seated = 120/78 with large size cuff. Fundi: neg ENT; Boggy mucous membranes with clear nasal drianage Thyroid: normal to inspection and palpation Lungs: negative, Percussion normal. Good diaphragmatic excursion. Lungs clear Heart: negative, PMI normal. No lifts, heaves, or thrills. RRR. No murmurs, clicks gallops or rub Peripheral pulses: radial=4/4, femoral=4/4, popliteal=4/4, dorsalis pedis=4/4, Abd: The abdomen is soft without tenderness, guarding, mass or organomegaly. Bowel sounds are normal. No CVA tenderness or inguinal adenopathy noted. BMI : Body mass index is 33.49 kg/(m^2). ASSESSMENT: 401.1 Essential Hypertension, Benign (primary encounter diagnosis) Plan: NORVASC 5 MG OR TABS, HYDROCHLOROTHIAZIDE 12.5 MG OR CAPS, VENOUS COLLECTION, SPECIMEN HANDLING,DR OFF->LAB, A.M.A. LIPID PANEL, A.M.A. BASIC METABOLIC PANEL, POTASSIUM CHLORIDE 10 MEQ OR CPCR 1) Medication: continue current medication regimen unchanged and begin: potassium supplements daily 2) Dietary sodium restriction 3) Regular aerobic exercise 4) Recheck in 6 months, sooner should new symptoms or problems arise. Patient Education: Reviewed risks of hypertension and principles of treatment. 278.00 OBESITY NOS Plan: Weight loss ideas including weight watcher's encouraged documented in this encounter Nursing Notes 03/24/2009 8:45 AM CDT >> EVE SIMON Mon March 24, 2009 8:01 AM Pt is here for a recheck and refill of there medication. Patient is fasting BP done on the left arm, with a large sized cuff. Pulse - regular My Chart - accepts CLASSIFICATION OF OVERWEIGHT AND OBESITY BY BMI Obesity Class BMI(kg/m2) Underweight < 18.5 Normal 18.5-24.9 Overweight 25.0-29.9 OBESITY I 30.0-34.9 II 35.0-39.9 EXTREME OBESITY III >40 Patient's BMI Body mass index is 33.49 kg/(m^2). http://hin.nhlbi.nih.gov/menuplanner/menu.cgi Questioned patient about current smoking habits. Pt. quit smoking some time ago. documented in this encounter Plan of Treatment Not on filedocumented as of this encounter Procedures Procedure Name Priority Date/Time Associated Comments Diagnosis HCL BASIC METABOLIC Routine 03/25/2009 4:00 AM Essential Re sults for this PANEL CDT Hypertension, procedure are in Benign the results section. CL AFF A.M.A. LIPID Routine 03/25/2009 4:00 AM Essential Re sults for this PANEL CDT Hypertension, procedure are in Benign the results section. HC VENOUS COLLECTION Routine 03/24/2009 8:29 AM Essential CDT Hypertension, Benign documented in this encounter Results (ABNORMAL) A.M.A. BASIC METABOLIC PANEL [[id number]] (03/25/2009 4:00 AM CDT) P athologist Signature Glucose 108 (H) 65 - 99 [facility] mg/dL [facility] Comment: FASTING REFERENCE INTERVAL Urea Nitrogen 22 7 - 25 mg/dL [facility] Creatinine 0.70 0.60 - 1.18 [facility] mg/dL GFR Estimate >60 > OR = 60 [facility] mL/min/1.73m2 EGFR >60 > OR = 60 [facility] mL/min/1.73m2 BUN/Creatinine Ratio NOT APPLICABLE 6 - 22 (calc) [facility] Comment: BUN/CREATININE RATIO IS NOT REPORTED WHE N THE BUN AND CREATININE VALUES ARE WITHIN NORMAL LIMITS. Sodium 143 135 - 146 mmol/L [facility] Potassium 4.4 3.5 - 5.3 mmol/L [facility] Chloride 104 98 - 110 mmol/L [facility] Carbon Dioxide 26 21 - 33 mmol/L [facility] Calcium 10.0 8.6 - 10.2 mg/dL [facility] Comment: NO COLLECTION DATE RECEIVED. WE HAVE USE D THE DATE THE SPECIMEN WAS RECEIVED BY IS LABORATORY THE COLLECTION DATE. IF IS IS INCORRECT, PLEASE CONTACT CLIENT SERV [employer]. PHONE NUMBER: [phone] Test performed at [facility] [address] ??[id number] Director: MANAV LAWS M.D. Specimen (Source) Anatomical Collection Method Collection Time Re ceived Time Location / / Volume Laterality 03/25/2009 2:24 AM CDT Jacquie Schmitt MD LABORATORY Performing Organization Address City/State/ZIP Code Phon e Number [facility] [address] [place], [place] [address] [facility] [address] [place], [place] [address] A.M.A. LIPID PANEL (03/25/2009 4:00 AM CDT) Analysis Performed At Patho logist Time Signature Triglycerides 122 <150 mg/dL [facility] Cholesterol 198 125 - 200 [facility] mg/dL [facility] HDL Cholesterol 63 > OR = 46 [facility] mg/dL [facility] LDL Cholesterol 111 <130 mg/dL [facility] Calculated (calc) [facility] Comment: DESIRABLE RANGE <100 MG/DL FOR PATIENTS WITH CHD OR DIABETES AND <70 MG/DL FOR DIABETIC JULIA ENTS WITH KNOWN HEART DISEASE. Cholesterol/HDL Ratio 3.1 < OR = 5.0 (calc) [facility] Comment: Test performed at [facility] [address] ??[id number] Director: MANAV LAWS M.D. Specimen (Source) Anatomical Collection Method Collection Time Re ceived Time Location / / Volume Laterality 03/25/2009 2:24 AM CDT Jacquie Schmitt MD LABORATORY Performing Organization Address [facility]/ZIP Code Phon e Number [facility] [address] [place], [place] [address] [facility] [address] documented in this encounter Visit Diagnoses Diagnosis Essential hypertension, benign - Primary OBESITY NOS Obesity, unspecified documented in this encounter Care Teams Nurse Ob Relationship Specialty Start Date End Date Jacquie Schmitt MD PCP - General 11/24/99 02/11/14 [address] , [facility] 100 [place] [address] documented as of this encounter
--- OUTSIDE RECORDS SUMMARY | 2022-08-18 09:33 | XMS_ITS | Encounter Summary ---
:1945 Author Organization [facility] Address [address] [place] [address] Care Team Providers Name Role Phone Jacquie Schmitt MD Primary Care Provider Encounter Details Date Type Department Care Team Description 08/26/2011 Telephone [facility] Jacquie Schmitt MD [address] [address] [place] [address] [address] [place] [address] [place], [place] [phone] (Wo rk) Social History Tobacco Use Types Packs/Day Years Used Date Smoking Tobacco: Former Cigarettes Quit : 11/07/1995 Smokeless Tobacco: Never Alcohol Use Standard Drinks/Week Comments No 0 (1 standard drink = 0.6 oz pure alcoho l) Sex Assigned at Date Recorded Female 10/17/2018 7:14 PM 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 helped her make an Ov documented in this encounter Plan of Treatment Not on filedocumented as of this encounter Visit Diagnoses Not on filedocumented in this encounter Care Teams Refrigeration Service Inspector Relationship Specialty Start Date End Date Jacquie Schmitt MD PCP - General 11/24/99 4 [address] [facility] 100 [place] [address] documented as of this encounter
--- OUTSIDE RECORDS SUMMARY | 2022-08-18 09:33 | XMS_ITS | Encounter Summary ---
:1945 Author Organization [facility] Address [address] [place] [address] Care Team Providers Name Role Phone Jacquie Schmitt MD Primary Care Provider Reason for Visit Reason Comments Fungal Infection Derm Problem Encounter Details Date Type Department Care Team Description 06/21/2011 Office Visit [place] [facility] Physicians MD Reid (Primary Dx) [address] [place] [address], [id number] [place] [phone] [id number] Social History Tobacco Use Types Packs/Day Years Used Date Smoking Tobacco: Former Cigarettes Quit : 11/07/1995 Smokeless Tobacco: Never Alcohol Use Standard Drinks/Week Comments No 0 (1 standard drink = 0.6 oz pure alcoho l) Sex Assigned at Date Recorded Female 10/17/2018 7: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 documented as of this encounter Last Filed Vital Signs Vital Sign Reading Time Taken Comments Blood Pressure 138/74 06/21/2011 1:35 PM CDT Pulse 86 06/21/2011 1:35 PM CDT Temperature 36.8 ??C (98.3 ??F) 06/21/2011 1:35 PM CDT Respiratory Rate - - Oxygen Saturation - - Inhaled Oxygen Concentration - - Weight 96.6 kg (213 lb) 06/21/2011 1:35 PM CDT Height 170.2 cm (5' 7) 06/21/2011 1:35 PM CDT Body Mass Index 33.36 06/21/2011 1:35 PM CDT documented in this encounter Progress Notes [place] MD - 06/21/2011 1:56 PM CDT SUBJECTIVE: Shahnaz Phelps, a 65 year old female scheduled an appointment to discuss the following issues: NAIL DISCOLORATION She developed right thumbnail darkening 3-4 months ago-states nail never adhered to skin but discoloration a new issue. 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 No pain in toe Medical, social, surgical, and family histories reviewed. Patient Active Problem List Diagnoses Code ??? PERS HX COLONIC POLYPS V12.72 ??? ACNE NEC 706.1 ??? DIVERTICULOSIS OF COLON W/O BLEED 562.10 ??? OSTEOARTHROS NOS-UNSPEC 715.90 ??? 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 OBESITY NOS 278.00 ??? Essential Hypertension, Benign 401.1 Past Medical History Diagnosis Date ??? Other acne ??? Need for prophylactic hormone replacement therapy (postmenopausal) ??? Allergic rhinitis due to pollen Family History Problem Relation Age of Onset ??? Cancer Brother colon History Social History ??? Marital Status: Spouse Name: N/A Number of Children: 1 ??? 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 Smoking status: Former Smoker Quit date: 11/07/1995 ??? Smokeless tobacco: Never Used ??? Alcohol Use: No ??? Drug Use: No ??? Sexually Active: Not Currently Other Topics Concern ??? Service No ??? Blood Transfusions No ??? Caffeine Concern No ??? Occupational Exposure No ??? Hobby Hazards No ??? Stress Concern No ??? Weight Concern Yes ??? Special Diet No ??? Back Care No ??? Exercise Yes ??? Bike Helmet Yes ??? Seat Belt Yes Social History Narrative ??? No narrative on file Past Surgical History Procedure Date ??? Hc [...] Hcl pap smear 11/2008 Carlos White Current outpatient prescriptions ordered prior to encounter: amlodipine (NORVASC) 5 MG tablet Take 1 tablet by mouth daily. hydrochlorothiazide (HYDRODIURIL) 25 MG tablet Take 0.5 tablets by mouth daily. ONE-A-DAY WOMENS 50 PLUS PO TABS 1 TABLET DAILY POTASSIUM CHLORIDE 10 MEQ OR TBCR 3-4 bananas/week CALCIUM 600 + D 600-200 MG-IU OR TABS METRONIDAZOLE 1 % EX GEL None Entered TRETINOIN 0.1 % EX CREA None Entered @OB@ Allergies: Imidazole antifungals and Penicillins Immunization History Administered Date(s) Administered ??? Influenza 08/27/1998 ??? TD (ADULT, 7+) 12/08/1990, 03/13/2001 ??? TDAP (BOOSTRIX AGES 10-64) 03/29/2011 ROS: C: NEGATIVE for fever, chills E: NEGATIVE for vision changes R: NEGATIVE for significant cough or SOB CV: NEGATIVE for chest pain, palpitations GI: NEGATIVE for nausea, abdominal pain, heartburn, or change in bowel habits : NEGATIVE for frequency, dysuria, or hematuria M: NEGATIVE for significant arthralgias or myalgia N: NEGATIVE for weakness, dizziness or paresthesias or headache OBJECTIVE: BP 138/74 Pulse 86 Temp(Src) 98.3 ??F (36.8 ??C) (Oral) Ht 1.702 m (5' 7) Wt 96.616 kg (213lb) BMI 33.36 kg/m2 EXAM: GENERAL APPEARANCE: healthy, alert and no distress SKIN: right thumbnail with mid to distal darkening middle of nail, no paronychia, no thickening Right index with black coloration on edge of base, no pain, no hematoma, no thickening Right great toe with black spot centrally in nail, no tenderness, no hematoma ASSESSMENT/PLAN: 703.8DM Nail discoloration (primary encounter diagnosis) Comment: all 3 nails appear to be more traumatic issue -doubt fungus-no paronychias seen Plan: observe-should gradually grow out over 6-9 months, f/u if not improving or worsening either here or with derm dr. terry documented in this encounter Nursing Notes 06/21/2011 1:30 PM CDT >> MELICHARLINE HATHAWAY Mon Jun 21, 2011 1:37 PM Pt here for fungus on toe and fingers. Questioned patient about current smoking habits. Pt. quit smoking some time ago. Body mass index is 33.36 kg/(m^2). BP Cuff right Arm large Cuff PULSE regular My Chart: accepts documented in this encounter Plan of Treatment Not on filedocumented as of this encounter Visit Diagnoses Diagnosis Nail discoloration - Primary Other specified disease of nail documented in this encounter Care Teams Matrix Inspector Relationship Specialty Start Date End Date Jacquie Schmitt MD PCP - General 11/24/99 02/11/14 [address] , [facility] [address] [place] [address] documented as of this encounter
--- OUTSIDE RECORDS SUMMARY | 2022-08-18 09:33 | XMS_ITS | Encounter Summary ---
:1945 Author Organization [facility] Address [address] [place] [address] Care Team Providers Name Role Phone Jacquie Schmitt MD Primary Care Provider Encounter Details Date Type Department Care Team Description 02/16/2010 Results Only [facility] Jacquie Huitron MD Hospital Results [address], [address] [place], [place] [address] (Wo rk) Social History Tobacco Use Types Packs/Day Years Used Date Smoking Tobacco: Former Cigarettes Quit : 11/07/1995 Alcohol Use Standard Drinks/Week Comments No 0 (1 standard drink = 0.6 oz pure alcoho l) Sex Assigned at Date Recorded Female 10/17/2018 7:14 PM GENERAL ACTIVITIES 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 documented in this encounter Results DIAGNOSTIC MAMMO DIGITAL RIGHT (02/16/2010 9:16 AM CDT) Anatomical Region Laterality Modality Other Specimen (Source) Anatomical Collection Method Collection Time Re ceived Time Location / / Volume Laterality 02/16/2010 9:16 AM CDT Impressions 02/16/2010 1:03 PM CDT DIAGNOSTIC MAMMOGRAM, RIGHT, DIGITAL w/C AD ??- February 16, 2010 HISTORY: Recalled from her recent [facility] screening mammogram to evaluate possible developing nodule in the upper outer right breast. COMPARISON: [facility] mammograms dated May 13, 2007 and February 10, 2010. FINDINGS: A series of three digital mamm ographic views right breast today show no evidence of a nodule and n o significant change from her 2007 mammogram. I believe the appearance on the recent screening mammogram was a summation shadow. IMPRESSION: BI-RADS 1, NEGATIVE. RECOMMENDATION: Screening mammography in one year unless a new clinical issue develops in the interim. Jacquie Schmitt MD SPECIAL IMAGING STUDIES documented in this encounter Visit Diagnoses Not on filedocumented in this encounter Care Teams Tubing Mill Operator Relationship Specialty Start Date End Date Jacquie Schmitt MD PCP - General 11/24/99 02/11/14 [address] [facility] [address] [place] [address] documented as of this encounter
--- OUTSIDE RECORDS SUMMARY | 2022-08-18 09:33 | XMS_ITS | Encounter Summary ---
:1945 Author Organization [facility] Address [address] [place] [address] Care Team Providers Name Role Phone Jacquie Schmitt MD Primary Care Provider Reason for Visit Reason Comments Pharyngitis Encounter Details Date Type Department Care Team Description 02/25/2009 Orders Only [facility] Jacquie Schmitt, Acute Pharyngitis Physicians (Primary Dx) [address], [address] [address] [phone] Social History Tobacco Use Types Packs/Day Years Used Date Smoking Tobacco: Former Cigarettes Quit : 11/07/1995 Alcohol Use Standard Drinks/Week Comments No 0 (1 standard drink = 0.6 oz pure alcoho l) Sex Assigned at Date Recorded Female 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 documented in this encounter Results STREP A RAPID (02/25/2009 10:26 AM CDT) P athologist Signature Rapid Strep A neg [facility] Screen Jacquie Schmitt MD LABORATORY Performing Organization Address City/State/ZIP Code Phon e Number [facility] documented in this encounter Visit Diagnoses Diagnosis Acute pharyngitis - Primary documented in this encounter Care Teams Assembler 1St Shift Relationship Specialty Start Date End Date Jacquie Schmitt MD PCP - General 11/24/99 02/11/14 [address] [facility] [address] [place] [address] documented as of this encounter
--- OUTSIDE RECORDS SUMMARY | 2022-08-18 09:33 | XMS_ITS | Encounter Summary ---
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 documented as of this encounter Last Filed Vital Signs Vital Sign Reading Time Taken Comments Blood Pressure 110/70 03/16/2010 9:33 AM CDT Pulse 68 03/16/2010 9:33 AM CDT Temperature 36.8 ??C (98.2 ??F) 03/16/2010 9:33 AM CDT Respiratory Rate 12 03/16/2010 9:33 AM CDT Oxygen Saturation - - Inhaled Oxygen Concentration - - Weight 95.3 kg (210 lb) 03/16/2010 9:33 AM CDT Height 168.3 cm (5' 6.25) 03/16/2010 9:33 AM CDT Body Mass Index 33.64 03/16/2010 9:33 AM CDT documented in this encounter Progress Notes Jacquie Schmitt - 03/16/2010 9:54 AM CDT SUBJECTIVE: Shahnaz Phelps is an 64 year old postmenopausal woman who presents for annual chef exam. Menopause at age 49. No bleeding, spotting, or discharge noted. Estrogen replacement therapy: none currently, has taken in past SAMANTA exposure: no History of abnormal Pap smear: no Family history of uterine or ovarian cancer: yes - mother ovarian age 90 Regular self breast exam: Yes History of abnormal mammogram: yes - benign biopsy Family history of breast cancer: no History of abnormal lipids: no Past Medical History Other Acne Need for Prophylactic Hormone Replacement Therapy (Postmenopausal) Allergic Rhinitis due to Pollen Family History Cancer Brother Comment: colon Past Surgical History COLONOSCOPY & POLYPECTOMY COLONOSCOPY & POLYPECTOMY COLONOSCOPY & POLYPECTOMY 2000 COLONOSCOPY & POLYPECTOMY [address] Bonita AGOSTO CATARACT EXTRACAP,INSERT LENS 03/10/04 Comment right REMV CATARACT EXTRACAP,INSERT LENS 04/[address] Keith ANESTH,SKIN SURGERY, BACK 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 METRONIDAZOLE 1 % EX GEL Route: Apply externally Sig:None Entered Dispense: Refill: 2. TRETINOIN 0.1 % EX CREA Route: Apply externally Sig:None Entered Dispense: Refill: 3. NORVASC 5 MG PO TABS Route: Oral Sig:ONE DAILY Dispense: 3 MONTHS Refill: 1 4. HYDROCHLOROTHIAZIDE 12.5 MG PO CAPS Route: Oral Sig:ONE DAILY IN THE MORNING Dispense: 3 MONTHS Refill: 1 5. POTASSIUM CHLORIDE 10 MEQ PO TBCR Route: Oral Si-4 bananas/week Dispense: 0 Refill: 0 6. CALCIUM 600 + D 600-200 MG-UNIT OR TABS Route: Sig: Dispense: 0 Refill: 0 -- Imidazole Antifungals -- hives -- Penicillins -- hives Tobacco Use: Quit Quit date: 11/07/1995 Alcohol Use: No Review Of Systems Ears/Nose/Throat: allergies in good control this spring Respiratory: No shortness of breath, dyspnea on exertion, cough, or hemoptysis Cardiovascular: HTN well controlled Gastrointestinal: colon polyps Genitourinary: negative MS; Bilateral knee and shoulder issues with injections and PT with Dr Jacobson, see consult notes OBJECTIVE: BP 110/70 Pulse 68 Temp(Src) 98.2 ??F (36.8 ??C) (Oral) Resp 12 Ht 5' 6.25 (1.683 m) Wt 210 lb (95.255 kg) General appearance: healthy, alert, no distress and cooperative Skin: Skin color, texture, turgor normal. No [...] atrophy BMI : Body mass index is 33.64 kg/(m^2). ASSESSMENT: Routine Gynecological Examination (primary encounter diagnosis) Plan: THIN LAY PAP,DIAG W/HPV REFLEX, SPECIMEN HANDLING,DR OFF->LAB, VENOUS COLLECTION, HEMOGLOBIN Total calcium intake of 1500 mgm/day, vitamin D 400-800IU/day and a regular weight bearing exerciseprogram for prevention of osteoporosis is recommended treatment at this time. 401.1 Essential Hypertension, Benign Plan: HYDROCHLOROTHIAZIDE 12.5 MG PO CAPS, AMLODIPINE BESYLATE 5 MG PO TABS, VENOUS COLLECTION, A.M.A. LIPID PANEL, A.M.A. COMPREHENSIVE MET.PANEL Low salt diet, weight loss and exercise. Recheck in 6 months. V77.1 Screening for Diabetes Mellitus Plan: SPECIMEN HANDLING,DR OFF->LAB, VENOUS COLLECTION, A.M.A. COMPREHENSIVE MET.PANEL V77.91 Screening for Lipoid Disorders Plan: SPECIMEN HANDLING,DR OFF->LAB, VENOUS COLLECTION, A.M.A. LIPID PANEL 706.1 ACNE NEC Plan: METRONIDAZOLE 1 % EX GEL, TRETINOIN 0.1 % EX CREA I have reviewed the patient's medical history in detail and updated the computerized patient record. 278.00 OBESITY NOS Plan: SPECIMEN HANDLING,DR OFF->LAB, VENOUS COLLECTION, A.M.A. LIPID PANEL, A.M.A. COMPREHENSIVE MET.PANEL Discussion about self care and options for plan Dx: 1) Pap smear, mammogram 2) Lipids at appropriate intervals PE: Reviewed health maintenance including diet, regular exercise, estrogen replacement and periodic exams. documented in this encounter Nursing Notes 03/16/2010 9:15 AM CDT >> EVE Valadez March 16, 2010 9:39 AM Pt is here for a full physical exam and pap. Patient is fasting BP done on the right arm, with a lg sized cuff. Pulse - regular My Chart - accepts CLASSIFICATION OF OVERWEIGHT AND OBESITY BY BMI Obesity Class BMI(kg/m2) Underweight < 18.5 Normal 18.5-24.9 Overweight 25.0-29.9 OBESITY I 30.0-34.9 II 35.0-39.9 EXTREME OBESITY III >40 Patient's BMI Body mass index is 33.64 kg/(m^2). http://hin.nhlbi.nih.gov/menuplanner/menu.cgi Questioned patient about current smoking habits. Pt. quit smoking some time ago. ETOH screening: Questions: 1-How often do you have a drink containing alcohol? 1 times per 2week(s) 2-How many drinks containing alcohol do you have on a typical day when you are Drinking? 1 3- How often do you have 5 or more drinks on one occasion? never documented in this encounter Plan of Treatment Not on filedocumented as of this encounter Procedures Procedure Name Priority Date/Time Associated Diagnosis Comme nts HCL COMPREHENSIVE Routine 03/17/2010 4:00 Essential Results for this METABOLIC PANEL AM CDT Hypertension, Be nign procedure are in Screening for the results Diabetes Mellitu s section. OBESITY NOS CL AFF A.M.A. LIPID Routine 03/17/2010 4:00 Essential Resul ts for this PANEL AM CDT Hypertension, Be nign procedure are in Screening for Lipoid the res ults Disorders section. OBESITY NOS ZZCL AFF HEMOGLOBIN Routine 03/16/2010 9:59 Routine Gynecologi wes Results for this AM CDT Examination procedure are i n the results section. HC VENOUS COLLECTION Routine 03/16/2010 9:55 Routine Gynecolog ical AM CDT Examination Essential Hypertension, Be nign Screening for Diabetes Mellitu s Screening for Lipoid Disorders OBESITY NOS ZZCL AFF THIN LAY Routine 03/16/2010 Routine Gynecological R esults for this PAP,DIAG W/HPV REFLEX Examination proced ure are in the results section. documented in this encounter Results (ABNORMAL) COMPREHENSIVE METABOLIC PANEL [[id number]] (03/17/2010 4:00 AM CDT) P athologist Signature Glucose 98 65 - 99 [facility] mg/dL [facility] Comment: ? Fasting reference interv al Urea Nitrogen 26 (H) 7 - 25 mg/dL [facility] Creatinine 0.79 0.60 - 1.18 mg/dL [facility] GFR Estimate >60 > OR = 60 mL/min/1.73m2 [facility] EGFR >60 > OR = 60 mL/min/1.73m2 [facility] BUN/Creatinine Ratio 33 (H) 6 - 22 (calc) [facility] Sodium 142 135 - 146 mmol/L [facility] Potassium 4.2 3.5 - 5.3 mmol/L [facility] Chloride 103 98 - 110 mmol/L [facility] Carbon Dioxide 26 21 - 33 mmol/L [facility] Calcium 10.1 8.6 - 10.2 mg/dL [facility] Protein Total 6.9 6.2 - 8.3 g/dL [facility] Albumin 4.5 3.6 - 5.1 g/dL [facility] Globulin Calculated 2.4 2.2 - 3.9 g/dL (calc) [facility] A/G Ratio 1.9 1.0 - 2.1 (calc) [facility] Bilirubin Total 0.8 0.2 - 1.2 mg/dL [facility] Alkaline Phosphatase 75 33 - 130 U/L [facility] AST 19 10 - 35 U/L [facility] ALT 25 6 - 40 U/L [facility] Comment: NO COLLECTION DATE RECEIVED. WE HAVE USE D THE DATE THE SPECIMEN WAS RECEIVED BY [facility] THE COLLECTION DATE. IF [facility] IS INCORRECT, PLEASE CONTACT CLIENT SERV [employer]. PHONE NUMBER: [phone] Test Performed at: [facility] [place] [address] [place], [place] ??[address] MANAV LAWS MD Specimen (Source) Anatomical Collection Method Collection Time Re ceived Time Location / / Volume Laterality Serum specimen 03/17/2010 2: 09 (specimen) AM CDT Jacquie Schmitt MD LABORATORY Performing Organization Address City/State/ZIP Code Phon e Number [facility] [address] [place], [place] [address] [facility] [address] [facility] [place], [place] [address] A.M.A. LIPID PANEL (03/17/2010 4:00 AM CDT) P athologist Signature Cholesterol 186 125 - 200 [facility] mg/dL [facility] Comment: Test Performed at: [facility] [place] [address] [place], [place] ??[address] MANAV LAWS MD HDL Cholesterol 70 > OR = 46 mg/dL [facility] Triglycerides 95 <150 mg/dL [facility] LDL Cholesterol Calculated 97 <130 mg/dL (calc) [facility] Comment: Desirable range <100 mg/dL for patients with CHD or diabetes and <70 mg/dL for diabetic suraj ents with known heart disease. Cholesterol/HDL Ratio 2.7 < OR = 5.0 (calc) [facility] Specimen (Source) Anatomical Collection Method Collection Time Re ceived Time Location / / Volume Laterality Serum specimen 03/17/2010 2: 09 (specimen) AM CDT Jacquie Schmitt MD LABORATORY Performing Organization Address City/[facility]/ZIP [facility] Phon e Number [facility] [address] [place], [place] [address] [facility] [address] [place], [place] [address] HEMOGLOBIN [[id number]] (03/16/2010 9:59 AM CDT) athologist Signature Hemoglobin 13.6 12 - 16 [facility] GM/DL Jacquie Schmitt MD LABORATORY Performing Organization Address [facility] Phon e Number [facility] THIN LAY PAP,DIAG W/HPV REFLEX ([id number]) (03/16/2010) athologist Signature Report status FINAL [facility] Clinical [facility] [place] Comment: Postmenopausal LMP POST [facility] Last Pap Diagnosis WNL [facility] [place] Prev Bx Dx NONE GIVEN [facility] [place] Source none given [facility] [place] Statement of Adequacy [facility] [place] Comment: Satisfactory for evaluation. Endocervical/transformation zone compone nt present. General Categorization CANCELED [facility] [place] Comment: Result canceled by the ancillar y Descriptive Diagnosis [facility] [place] Comment: Negative for intraepithelial le miky or malignancy. Infection CANCELED [facility] [place] Comment: Result canceled by the ancillar y Comment [facility] [place] Comment: Based on the cytology result, reflex Hig h Risk HPV DNA testing was not performed. ? Coil Binder: MICHELLE LIPSCOMB Comment: BEF, CT(ASCP) Test Performed at: [facility] [place] [address] [place] [place], [place] ??[address] IDALIA SAMSON MD Review Coil Binder [facility]ED [facility] Comment: Result canceled by the ancillar y Pathologist [facility]ED [facility] Comment: Result canceled by the ancillar y Specimen (Source) Anatomical Collection Method Collection Time Re ceived Time Location / / Volume Laterality Specimen from 03/16/2010 03/17/2010 4:0 5 unspecified body AM CDT site (specimen) Jacquie Schmitt MD LABORATORY Performing Organization Address City/State/[facility] Code Phon e Number [facility] [address] [place], [place] [address] [facility] [address] [place] [address] documented in this encounter Visit Diagnoses Diagnosis Routine gynecological examination - Prim elke Essential hypertension, benign Screening for diabetes mellitus Screening for lipoid disorders ACNE NEC Other acne OBESITY NOS Obesity, unspecified documented in this encounter Care Teams Senior Sas Programmer Relationship Specialty Start Date End Date Jacquie Schmitt MD PCP - General 11/24/[address], [facility] [address] [place] [address] documented as of this encounter
--- OUTSIDE RECORDS SUMMARY | 2022-08-18 09:33 | XMS_ITS | Encounter Summary ---
:1945 Author Organization [place] Address [address] [place] [address] Care Team Providers Name Role Phone Jacquie Schmitt MD Primary Care Provider Reason for Visit Reason Comments Recheck Medication blood pressure Encounter Details Date Type Department Care Team Description 08/30/2011 Office Visit [facility] Jacquie Schmitt Essent ial hypertension, benign (Primary Dx); Physicians OBESITY NOS [address] , [address] [address] Social History Tobacco Use Types Packs/Day Years Used Date Smoking Tobacco: Former Cigarettes Quit : 11/07/1995 Smokeless Tobacco: Never Alcohol Use Standard Drinks/Week Comments No 0 (1 standard drink = 0.6 oz pure alcoho l) Sex Assigned at Date Recorded Female 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 documented as of this encounter Last Filed Vital Signs Vital Sign Reading Time Taken Comments Blood Pressure 120/80 08/30/2011 10:12 AM CDT Pulse 68 08/30/2011 10:12 AM CDT Temperature 36.8 ??C (98.2 ??F) 08/30/2011 10:12 AM CDT Respiratory Rate 12 08/30/2011 10:25 AM CDT Oxygen Saturation - - Inhaled Oxygen Concentration - - Weight 96.2 kg (212 lb) 08/30/2011 10:10 AM CDT Height 169.5 cm (5' 6.75) 08/30/2011 10:10 AM CDT Body Mass Index 33.45 08/30/2011 10:10 AM CDT documented in this encounter Progress Notes Jacquie Schmitt MD - 08/30/2011 10:28 AM CDT SUBJECTIVE: Shahnaz Phelps is an [...] tobacco: Never Used ??? Alcohol Use: No OBJECTIVE: BP 120/80 Pulse 68 Temp(Src) 98.2 ??F (36.8 ??C) (Oral) Resp 12 Ht 1.695 m (5' 6.) Wt 96.163 kg (212 lb) BMI 33.45 kg/m2 Repeat BP R arm seated = [...] noted. BMI : Body mass index is 33.45 kg/(m^2). ASSESSMENT: 401.1 Essential hypertension, benign (primary encounter diagnosis) Plan: hydrochlorothiazide (HYDRODIURIL) 25 MG tablet, amLODIPine (NORVASC) 5 MG tablet 1) Medication: continue current medication regimen unchanged 2) Dietary sodium restriction 3) Regular aerobic exercise/ weight loss encouraged 4) Recheck in 6 months fasting, sooner should new symptoms or problems arise. Patient Education: Reviewed risks of hypertension and principles of treatment. documented in this encounter Nursing Notes 08/30/2011 10:00 AM CDT >> EVE SIMON Mon Aug 30, 2011 10:14 AM Patient is here for a recheck of her meds. BP done on the right arm, with a lg sized cuff. Pulse - regular My Chart - accepts CLASSIFICATION OF OVERWEIGHT AND OBESITY BY BMI Obesity Class BMI(kg/m2) Underweight < 18.5 Normal 18.5-24.9 Overweight 25.0-29.9 OBESITY I 30.0-34.9 II 35.0-39.9 EXTREME OBESITY III >40 Patient's BMI Body mass index is 33.45 kg/(m^2). http://hin.nhlbi.nih.gov/menuplanner/menu.cgi Questioned patient about current smoking habits. Pt. quit smoking some time ago. documented in this encounter Plan of Treatment Not on filedocumented as of this encounter Visit Diagnoses Diagnosis Essential hypertension, benign - Primary OBESITY NOS Obesity, unspecified documented in this encounter Care Teams Head Loft Worker Relationship Specialty Start Date End Date Jacquie Schmitt MD PCP - General 11/24/99 02/11/[address], [address] [place] [address] documented as of this encounter
--- OUTSIDE RECORDS SUMMARY | 2022-08-18 09:33 | XMS_ITS | Encounter Summary ---
:1945 Author Organization [place] Address [address] [place] [address] Care Team Providers Name Role Phone Jacquie Schmitt MD Primary Care Provider Encounter Details Date Type Department Care Team Description 03/29/2011 [facility] Jacquie Schmitt Need for prophylactic Health/Nurse Prateek Babb MD vaccination with Visit [address] tetanus-diphtheria [address] (TD) (Primary Dx) [place] [address] [id number] Social History Tobacco Use Types Packs/Day Years Used Date Smoking Tobacco: Former Cigarettes Quit : 11/07/1995 Alcohol Use Standard Drinks/Week Comments No 0 (1 standard drink = 0.6 oz pure alcoho l) Sex Assigned at Date Recorded Female 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 documented in this encounter Plan of Treatment Not on filedocumented as of this encounter Visit Diagnoses Diagnosis Need for prophylactic vaccination with t etanus-diphtheria (Td) - Primary documented in this encounter Care Teams Fondant Puff Maker Relationship Specialty Start Date End Date Jacquie Schmitt MD PCP - General 11/24/99 02/11/[address], [address] [place] [address] documented as of this encounter
--- OUTSIDE RECORDS SUMMARY | 2022-08-18 09:33 | XMS_ITS | Encounter Summary ---
:1945 Author Organization [place] Address [address] [place] [address] Care Team Providers Name Role Phone Jacquie Schmitt MD Primary Care Provider Encounter Details Date Type Department Care Team Description 02/16/2011 Orders Only [facility] Jacquie Schmitt, VANDANA CTING RESULTS Physicians (Primary Dx) [address] [facility] [address] [address] [phone] Social History Tobacco Use Types Packs/Day Years Used Date Smoking Tobacco: Former Cigarettes Quit : 11/07/1995 Alcohol Use Standard Drinks/Week Comments No 0 (1 standard drink = 0.6 oz pure alcoho l) Sex Assigned at Date Recorded Female 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 documented in this encounter Results Mammo Screening digital (bilat) (02/16/2011) P athologist Signature MAMMOGRAM Anatomical Region Laterality Modality Breast Bilateral Other Narrative 02/16/2011 [facility] * Fax: [phone] [address], [place] [address] [place] [address] Age: 65 Y Work Phone: Dept No.: [id number] SHAHNAZ GLASGOW : 1945 [facility] Chart # Req. Phys: Jacquie Schmitt Clinic MRN: Clinic: [place] c#: [id number] Exam: BILAT SCREEN MAMMOGRAM DIGITAL Exa m Date: 02/16/2011 SCREENING MAMMOGRAM, BILATERAL, DIGITAL w/ CAD - February 16, 2011 BREAST SYMPTOMS: None reported. COMPARISON: 02/10/2010, 05/08/2007. PARENCHYMAL PATTERN: Scattered fibroglan dular densities. COMMENTS: No findings of suspicion for m alignancy. IMPRESSION: BI-RADS CATEGORY 1, NEGATIVE . Exam results letter mailed to patient. Performed by: SHAN Transcribed By: MATT on: 02/16/2011 2:06 P M CDT Finalized By: Jonathon WILLS, on: 2:07 PM CDT Dictated By: Jonathon WILLS KENT Signed by : LOS Thank You for using [facility] P age 1 of 1 Jacquie Schmitt MD IMG MAMMOGRAPHY ORDERABLES documented in this encounter Visit Diagnoses Diagnosis ABSTRACTING RESULTS - Primary documented in this encounter Care Teams Program Analyst Relationship Specialty Start Date End Date Jacquie Schmitt MD PCP - General 11/24/99 02/11/[address], [address] [place] [address] documented as of this encounter
--- OUTSIDE RECORDS SUMMARY | 2022-08-18 09:34 | XMS_ITS | Encounter Summary ---
:1945 Author Organization [place] Address [address] [place] [address] Care Team Providers Name Role Phone Jacquie Guthrie MD Primary Care Provider Reason for Visit Reason Comments Neck Problem Encounter Details Date Type Department Care Team Description 10/11/2006 Office Visit [facility] Jacquie Guthrie, [facility] MA XILLARY SINUSITIS (Primary Dx); Physicians ACQ DEFORMITY NEC; [address], OSTEOARTHROS NOS-UNSPEC [address] [place] [address] [id number] Social History Tobacco Use Types Packs/Day Years Used Date Smoking Tobacco: Former Cigarettes Quit : 11/07/1995 Alcohol Use Standard Drinks/Week Comments No 0 (1 standard drink = 0.6 oz pure alcoho l) Sex Assigned at Date Recorded Female 10/17/2018 7:14 PM FINANCE EFFECTIVENESS MANAGER documented as of this encounter Last Filed Vital Signs Vital Sign Reading Time Taken Comments Blood Pressure 128/84 10/11/2006 2:45 PM FINANCE EFFECTIVENESS MANAGER Pulse 80 10/11/2006 2:45 PM FINANCE EFFECTIVENESS MANAGER Temperature 36.9 ??C (98.5 ??F) 10/11/2006 2:45 PM FINANCE EFFECTIVENESS MANAGER Respiratory Rate 12 10/11/2006 2:45 PM FINANCE EFFECTIVENESS MANAGER Oxygen Saturation - - Inhaled Oxygen Concentration - - Weight 95.3 kg (210 lb) 10/11/2006 2:45 PM FINANCE EFFECTIVENESS MANAGER Height 170.2 cm (5' 7) 10/11/2006 2:45 PM FINANCE EFFECTIVENESS MANAGER Body Mass Index 32.89 10/11/2006 2:45 PM FINANCE EFFECTIVENESS MANAGER documented in this encounter Progress Notes Jacquie Guthrie - 10/11/2006 3:05 PM CST SUBJECTIVE: 61 year old female complaining of stiff neck on the left side and left upper back for 2 week(s). 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 She also noticed a lump on her anterior chest which is somewhat tender on palpation. Not tender unless she touches it. The patient denies a history of fever, SOB, URI symptoms or injury. Smoking history: no. Relevant past medical history: positive for osteoarthritis of the knees, hips and back. She also is here to check her sinus area. See last visit. Took CLARITIN and DOXYCYCLINE for 2 weeks.[place] great. Now sinus congestion and tenderness has returned. Clear nasal drainage at times with some post nasal drip. OBJECTIVE: The patient appears healthy, alert, no distress, cooperative and smiling. EARS: negative NOSE/SINUS: positive findings: mucosa swollen, pale, and boggy, clear rhinorrhea THROAT: normal NECK:Neck supple. No adenopathy. Thyroid symmetric, normal size,, Carotids without bruits., positivefindings: prominence of the sternoclavicular junction compared to the right. No deformity or skin change noted. Tender over the left rhomboid musculature diffusely. FROM of the neck. 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 Potential medication side effects were discussed with the patient; let me knowif any occur. Recheck after trial. Allergies and polyps reviewed. 738.8 ACQ DEFORMITY NEC Plan: CHEST X-RAY 2 VW, NAPROSYN 375 MG OR TABS WNL. Possible arthritis changes. Trial of antiinflammatory. Rehab stretches/ exercises to begin immediately and given in writing with illustrations. 715.90 OSTEOARTHROS NOS-UNSPEC Plan: NAPROSYN 375 MG OR TABS Back changes noted with arthritic changes. Reviewed osteoporosis changes as well. Total calcium intake of 1500 mgm/day, vitamin D 400-800IU/day and a regular weight bearing exercise program for prevention of osteoporosis is recommended treatment at this time. Rehab stretches/ exercises to begin immedi ately and given in writing with illustrations. Recheck in 4-6 weeks. In addition, I have suggested that the patient Recheck DEXA at next PE. NCE EFFECTIVENESS MANAGER documented in this encounter Nursing Notes 10/11/2006 2:45 PM CST >> EVE SIMON 10/11/2006 2:46 pm Patient is here for a stiff neck that she has had for about 2 weeks. She also found a bump on the front of her neck. Questioned patient about current smoking habits. Pt. quit smoking some time ago. CLASSIFICATION OF OVERWEIGHT AND OBESITY BY BMI Obesity Class BMI(kg/m2) Underweight < 18.5 Normal 18.5-24.9 Overweight 25.0-29.9 OBESITY I 30.0-34.9 II 35.0-39.9 EXTREME OBESITY III >40 Patient's BMI Body mass index is 32.88 kg/(m^2). Http://hin.nhlbi.nih.gov/menuplanner/menu.cgi documented in this encounter Plan of Treatment Not on filedocumented as of this encounter Procedures Procedure Name Priority Date/Time Associated Diagnosis Comme nts HC X-RAY SINUSES <3 Routine 10/12/2006 4:03 PM Chr Maxillary R esults for this VIEWS FINANCE EFFECTIVENESS MANAGER Sinusitis procedure are i n the results section. HC CHEST TWO VIEWS, Routine 10/12/2006 4:03 PM Acq Deformity N ec Results for this FRONT/LAT FINANCE EFFECTIVENESS MANAGER procedure are i n the results section. documented in this encounter Results X-RAY SINUSES <3 VW (10/12/2006 4:03 PM FINANCE EFFECTIVENESS MANAGER) Anatomical Region Laterality Modality Other Narrative 10/12/2006 4:03 PM FINANCE EFFECTIVENESS MANAGER OF OUTSIDE FILMS FROM: [facility] Patient: ??SHAHNAZ GLASGOW Case No: ?? Birthdate: [birth year] Referring Physician: DR. GUTHRIE Exam Date: 10/11/06 Exam: UPRIGHT ROLDAN' and CHEST UPRIGHT ROLDAN': ?? Negative. No signifi cant mucosal thickening. CHEST: ?? Negative. The clavicles appear normal on these images. Cory Dugan M.D./melany D & T: ??10/12/06 Jacquie Guthrie MD GENERAL IMAGING CHEST X-RAY 2 VW (10/12/2006 4:03 PM FINANCE EFFECTIVENESS MANAGER) Anatomical Region Laterality Modality Other Narrative 10/12/2006 4:03 PM FINANCE EFFECTIVENESS MANAGER OF OUTSIDE FILMS FROM: [facility] Patient: ??SHAHNAZ GLASGOWMariam Case No: ?? Birthdate: [birth year] Referring Physician: DR. GUTHRIE Exam Date: 10/11/06 Exam: UPRIGHT ROLDAN' and CHEST UPRIGHT ROLDAN': ?? Negative. No signifi cant mucosal thickening. CHEST: ?? Negative. The clavicles appear normal on these images. Cory Dugan M.D./melany D & T: ??10/12/06 Jacquie Guthrie MD GENERAL IMAGING documented in this encounter Visit Diagnoses Diagnosis Chronic maxillary sinusitis - Primary Acquired musculoskeletal deformity of ot her specified site Osteoarthrosis, unspecified whether gene ralized or localized, unspecified site documented in this encounter Care Teams Brick Burner Relationship Specialty Start Date End Date Jacquie Guthrie MD PCP - General 11/24/99 02/11/[address], [address] [place] [address] documented as of this encounter
--- OUTSIDE RECORDS SUMMARY | 2022-08-18 09:34 | XMS_ITS | Encounter Summary ---
:1945 Author Organization [place] Address [address] [place] [address] Care Team Providers Name Role Phone Jacquie Schmitt MD Primary Care Provider Encounter Details Date Type Department Care Team Description 06/06/2006 Therapy Visit [place] for Concepcion Burrell, PT iamSCIATICA (Primary Athletic Medicine - [place] Dx) [place] [address] [place] [place] [address] [address] [place] [address] Social History Tobacco Use Types Packs/Day Years Used Date Smoking Tobacco: Former Cigarettes Quit : 11/07/1995 Alcohol Use Standard Drinks/Week Comments No 0 (1 standard drink = 0.6 oz pure alcoho l) Sex Assigned at Date Recorded Female 10/17/2018 7:14 PM TANK PUMPER documented as of this encounter Progress Notes Concepcion Power - 06/06/2006 2:56 PM CDT Initial evaluation was completed. Please refer to the daily flowsheet for treatment today. documented in this encounter Plan of Treatment Not on filedocumented as of this encounter Procedures Procedure Name Priority Date/Time Associated Diagnosis Comme [facility] THERAPEUTIC Routine 06/06/2006 4:10 PM CDT iamSCIATICA EXERCISES documented in this encounter Visit Diagnoses Diagnosis iamSCIATICA - Primary Sciatica documented in this encounter Care Teams Associate Embalmer/Funeral Director Relationship Specialty Start Date End Date Jacquie Schmitt MD PCP - General 11/24/99 02/11/14 [address] [facility] [address] [place] [address] documented as of this encounter
--- OUTSIDE RECORDS SUMMARY | 2022-08-18 09:34 | XMS_ITS | Encounter Summary ---
:1945 Author Organization [place] Address [address] [place] [address] Care Team Providers Name Role Phone Jacquie Schmitt MD Primary Care Provider Encounter Details Date Type Department Care Team Description 03/13/2007 Results Only [facility] Jacquie Schmitt MD Physicians [address] [place] [address], [facility] [address] [place] [address] [place] [address] [phone] Social History Tobacco Use Types Packs/Day Years Used Date Smoking Tobacco: Former Cigarettes Quit : 11/07/1995 Alcohol Use Standard Drinks/Week Comments No 0 (1 standard drink = 0.6 oz pure alcoho l) Sex Assigned at Date Recorded Female 10/17/2018 7:14 PM CASER UP documented as of this encounter Plan of Treatment Not on filedocumented as of this encounter Procedures Procedure Name Priority Date/Time Associated Diagnosis Comme nts ZZCL AFF THIN LAY Routine 03/13/2007 Results fo r this PAP,DIAG W/HPV REFLEX proced ure are in the results section . documented in this encounter Results THIN LAY PAP,DIAG W/HPV REFLEX (03/13/2007) [facility] Method Time Signature Report status FINAL [facility] [place], [place] Clinical SEE NOTE [facility] [place] [place] Comment: PARA 1 1 LMP POSTMENO [facility] [place] Last Pap Diagnosis WNL [facility] [place] [place] Prev Bx Dx NONE GIVEN MAYRA VO Source none given MAYRA VO Statement of Adequacy SEE NOTE MICHELLE ORNELAS AGNOSTICMAYRA KINNEY Comment: SATISFACTORY FOR EVALUATION General Categorization NOT AVAIL. MAYRA VO Descriptive Diagnosis SEE NOTE MICHELLE DI AGNOSTICMAYRA KINNEY Comment: Negative for intraepithelial lesion or m alignancy. Atrophic pattern; predominantly parabasa l cells Infection NOT AVAIL. MARYA VO Comment SEE NOTE MAYRA VO Comment: Based on the cytology result, reflex Hig h/Int Risk HPV DNA Probe testing is not perfor med. Jewel Supervisor: SEE NOTE [facility] MAYRA CARPIO Comment: [facility], [facility](ASCP) Review Jewel Supervisor NOT AVAIL. MAYRA VO Pathologist NOT AVAIL. MAYRA VO See Note SEE NOTE MAYRA VO Comment: GYNECOLOGICAL CYTOLOGY IS A SCREENING WV OCEDURE SUBJECT TO BOTH FALSE NEGATIVE AND FALSE POSITIVE RESULTS. IT IS MOST RELIABLE WH EN A SATISFACTORY SAMPLE IS OBTAINED ON A REG ULAR REPETITIVE BASIS. RESULTS MUST BE INTERP RETED IN THE CONTEXT OF HISTORIC AND CURRENT C LINICAL INFORMATION. Test performed at [facility] [address] [facility] [address] [place], [place] ??[address] Director: SAMY ROLDAN MD Specimen (Source) Anatomical Collection Method Collection Time Re ceived Time Location / / Volume Laterality 03/13/2007 03/14/2007 11:3 2 PM CDT Narrative MICHELLE NOVA MAYRA OMER - 5:00 PM CDT Additional Result Information GENERAL CATEGORIZATION: RESULT NOT AV AILABLE INFECTION: RESULT NOT AVAILABLE REVIEW IT ARCHITECT: RESULT NOT A VAILABLE PATHOLOGIST: RESULT NOT AVAILABLE Jacquie Schmitt MD LABORATORY Performing Organization Address City/State/ZIP Code Phon e Number [facility] [address] [place] [address] [place], [place] [address] [facility] documented in this encounter Visit Diagnoses Not on filedocumented in this encounter Care Teams Client Support Administrator Relationship Specialty Start Date End Date Jacquie Schmitt MD PCP - General 11/24/99 02/11/14 [address] [facility] [address] [place] [address] documented as of this encounter
--- OUTSIDE RECORDS SUMMARY | 2022-08-18 09:34 | XMS_ITS | Encounter Summary ---
:1945 Author Organization [place] Address [address] [place] [address] Care Team Providers Name Role Phone Jacquie Schmitt MD Primary Care Provider Reason for Referral Specialty Diagnoses / Procedures Referred By Contact Refer red To Contact [facility] [address] [place] [address] [address] [place] [address] Phone: [phone] Fax: [phone] Referral ID Status Reason Start Date Expiration Date Visits Requ ested Visits Authorized Encounter Details Date Type Department Care Team Description 05/18/2006 Orders Only [facility], Provider SCAN ARIN RESULTS Physicians (Primary Dx) [address] [place] [address] Social History Tobacco Use Types Packs/Day Years Used Date Smoking Tobacco: Former Cigarettes Quit : 11/07/1995 Alcohol Use Standard Drinks/Week Comments No 0 (1 standard drink = 0.6 oz pure alcoho l) Sex Assigned at Date Recorded Female 10/17/2018 7:14 PM HUNTER GUIDE documented as of this encounter Plan of Treatment Not on filedocumented as of this encounter Procedures Procedure Name Priority Date/Time Associated Diagnosis Comme nts ZZ GASTROENTEROLOGY ADULT REFERRAL Routine 05/16/2006 SCANNI NG RESULTS +/- PROCEDURE documented in this encounter Results CONSULT TO GASTROENTEROLOGY (05/16/2006) Narrative This result has an attachment that is no t available. Provider Abstract REFERRAL documented in this encounter Visit Diagnoses Diagnosis SCANNING RESULTS - Primary documented in this encounter Care Teams Wrapper Cashier Relationship Specialty Start Date End Date Jacquie Schmitt MD PCP - General 11/24/99 02/11/14 [address] , [facility] [address] [place] [address] documented as of this encounter
--- OUTSIDE RECORDS SUMMARY | 2022-08-18 09:34 | XMS_ITS | Encounter Summary ---
:1945 Author Organization [facility] Address [address] [place] [address]. [place] [address] Care Team Providers Name Role Phone Jacquie Schmitt MD Primary Care Provider Reason for Visit Reason Comments Sinus Problem Encounter Details Date Type Department Care Team Description 08/04/2006 Office Visit [place] Mary Emery, ACUTE MAXILLARY SINUSITIS; Physicians ALLERGIC RHINITIS NOS [address] [place] [address] [address] [facility] [address] [place] [phone] Social History Tobacco Use Types Packs/Day Years Used Date Smoking Tobacco: Former Cigarettes Quit : 11/07/1995 Alcohol Use Standard Drinks/Week Comments No 0 (1 standard drink = 0.6 oz pure alcoho l) Sex Assigned at Date Recorded Female 10/17/2018 7:14 PM TAX EXAMINING TECHNICIAN documented as of this encounter Last Filed Vital Signs Vital Sign Reading Time Taken Comments Blood Pressure 140/84 08/04/2006 6:15 PM CDT Pulse 84 08/04/2006 6:15 PM CDT Temperature 36.7 ??C (98.1 ??F) 08/04/2006 6:15 PM CDT Respiratory Rate - - Oxygen Saturation - - Inhaled Oxygen Concentration - - Weight 93.9 kg (207 lb) 08/04/2006 6:15 PM CDT Height 170.2 cm (5' 7) 08/04/2006 6:15 PM CDT Body Mass Index 32.42 08/04/2006 6:15 PM CDT documented in this encounter Progress Notes Mary Granados MD - 08/04/2006 6:44 PM CDT SUBJECTIVE: Shahnaz Phelps is a 60 year old female who presents to clinic with a 4 week(s) history of yellow/green nasal discharge, nasal stuffiness, cough and nose bleeds. Associated symptoms include malaise, lethargy and headache. Recent exposures include known none. Hisotry of sinus infections or allergies: yes Review of systems reviewed as below: CONSTITUTIONAL: Denies fevers chills HEENT: As above CV: denies chest pain/pressure LUNGS: denies shortness of breath, chest pain ABD: denies abdominal pain : no urinary complaints SKIN: denies new skin lesions OBJECTIVE: Blood pressure 140/84, pulse 84, temperature 98.1, height 5' 7 (1.70 m), weight 207 lbs (93.9 kg), last menstrual period Postmenopausal. Gen: pt non-ill appearing eyes: PERRL, otherwise clear TM's: bubbles Facial tenderness: yes Nose: swollen turbinates bilaterally, bloody, yellowish discharge OP: Mild erythema, no exudates neck: supple, no NAD CV: RRR Lungs: Clear Abd: soft, NT, ND Ext: good cap refill, no extremity edema ASSESSMENT: likely sinusits with nose bleeds, needs nasal saline, a trail of anbx and humidifier at night. Pt with ? Allergies adn will try claritin 24 hour for 1 month PLAN: 1. Medications: per orders. Discussed medication in detail including dosing, side effects, and interactions. 2.Antipyretics as needed. Over the counter decongestants recommended for symptoms control. Encouragefluid intake 3.Call if symptoms worsen or if sx's continue beyond 7-10 days documented in this encounter Nursing Notes 08/04/2006 6:15 PM CDT >> JAMES MANRIQUE 08/04/2006 6:28 pm Pt presents with an illness characterized by nasal congestion, rhinorrhea, sore throat, headache and frequent nose bleeds. Symptoms began 1 months ago and are gradually worsening since that time. Questioned patient about current smoking habits. Pt. quit smoking some time ago. CLASSIFICATION OF OVERWEIGHT AND OBESITY BY BMI Obesity Class BMI(kg/m2) Underweight < 18.5 Normal 18.5-24.9 Overweight 25.0-29.9 OBESITY I 30.0-34.9 II 35.0-39.9 EXTREME OBESITY III >40 Patient's BMI Body mass index is 32.41 kg/(m^2). Http://hin.nhlbi.nih.gov/menuplanner/menu.cgi documented in this encounter Plan of Treatment Not on filedocumented as of this encounter Visit Diagnoses Diagnosis Acute maxillary sinusitis Allergic rhinitis, cause unspecified documented in this encounter Care Teams Dehairer Relationship Specialty Start Date End Date Jacquie Schmitt MD PCP - General 11/24/99 4 [address] [address] documented as of this encounter
--- OUTSIDE RECORDS SUMMARY | 2022-08-18 09:34 | XMS_ITS | Encounter Summary ---
:1945 Author Organization [facility] Address [address] [place] [address] Care Team Providers Name Role Phone Jacquie Schmitt MD Primary Care Provider Reason for Visit Reason Comments RECHECK Encounter Details Date Type Department Care Team Description 12/20/2006 Office Visit [place] [facility] Jacquie Schmitt, BENIGN HYPERTENSION; Physicians [facility] [address] [address] [address] [address] [phone] Social History Tobacco Use Types Packs/Day Years Used Date Smoking Tobacco: Former Cigarettes Quit : 11/07/1995 Alcohol Use Standard Drinks/Week Comments No 0 (1 standard drink = 0.6 oz pure alcoho l) Sex Assigned at Date Recorded Female 10/17/2018 7:14 PM CHASSIS WIRER documented as of this encounter Last Filed Vital Signs Vital Sign Reading Time Taken Comments Blood Pressure 134/88 12/20/2006 2:45 PM CHASSIS WIRER Pulse 80 12/20/2006 2:45 PM CHASSIS WIRER Temperature 36.8 ??C (98.2 ??F) 12/20/2006 2:45 PM CHASSIS WIRER Respiratory Rate 12 12/20/2006 2:45 PM CHASSIS WIRER Oxygen Saturation - - Inhaled Oxygen Concentration - - Weight 95.3 kg (210 lb) 12/20/2006 2:45 PM CHASSIS WIRER Height 170.2 cm (5' 7) 12/20/2006 2:45 PM CHASSIS WIRER Body Mass Index 32.89 12/20/2006 2:45 PM CHASSIS WIRER documented in this encounter Progress Notes Jacquie Schmitt - 12/20/2006 3:18 PM CST SUBJECTIVE: Here to recheck her BP on medications. Feels more energy and denies side effects. 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 He is starting injection of hydraulone forbilaterl knee arthritis. Has had 2 injections. OBJECTIVE: BP noted. External ears and canals clear bilaterally. TM's normal bilaterally. Nose normal without lesions or discharge. Oropharynx normal. Neck supple without palpable adenopathy. Regular rate and rhythm. S1 and S2 normal, no murmurs, clicks, gallops or rubs. No edema or JVD. Chest is clear; no wheezes or rales. ASSESSMENT: 401.1 BENIGN HYPERTENSION Plan: POTASSIUM, VENOUS COLLECTION, HYDROCHLOROTHIAZIDE 25 MG OR TABS Recheck at upcoming annual PE V58.69 AFTERCARE HALFWAY USE MEDICATN Plan: POTASSIUM, VENOUS COLLECTION Banana supplemntation reviewed. SIS WIRER documented in this encounter Nursing Notes 12/20/2006 2:45 PM CST >> EVE SIMON 12/20/2006 3:08 pm Patient is here for a recheck of her BP. Questioned patient about current smoking habits. Pt. has never smoked. CLASSIFICATION OF OVERWEIGHT AND OBESITY BY BMI Obesity Class BMI(kg/m2) Underweight < 18.5 Normal 18.5-24.9 Overweight 25.0-29.9 OBESITY I 30.0-34.9 II 35.0-39.9 EXTREME OBESITY III >40 Patient's BMI Body mass index is 32.88 kg/(m^2). Http://hin.nhlbi.nih.gov/menuplanner/menu.cgi documented in this encounter Plan of Treatment Not on filedocumented as of this encounter Procedures Procedure Name Priority Date/Time Associated Comments Diagnosis HCL POTASSIUM Routine 12/20/2006 3:27 PM Benign Hypert ension Results for this CHASSIS WIRER Aftercare [employer] Window Clerk procedur e are in Use Medicatn the results section. HC VENOUS COLLECTION Routine 12/20/2006 3:17 PM Benign H ypertension CHASSIS WIRER Aftercare [employer] Window Clerk Use Medicatn documented in this encounter Results POTASSIUM (12/20/2006 3:27 PM CHASSIS WIRER) P athologist Signature Potassium 4.12 3.5 - 5.5 [facility] mval/L Jacquie Schmitt MD LABORATORY Performing Organization Address City/State/ZIP Code Phon e Number [facility] documented in this encounter Visit Diagnoses Diagnosis Essential hypertension, benign Encounter for long-term (current) use of other medications documented in this encounter Care Teams Front End Assistant Relationship Specialty Start Date End Date Jacquie Schmitt MD PCP - General 11/24/99 4 [address] [facility] 100 [place] [address] documented as of this encounter
--- OUTSIDE RECORDS SUMMARY | 2022-08-18 09:34 | XMS_ITS | Encounter Summary ---
:1945 Author Organization [facility] Address [address] [place] [address] Care Team Providers Name Role Phone Jacquie Schmitt MD Primary Care Provider Reason for Visit Reason Comments RECHECK Encounter Details Date Type Department Care Team Description 11/26/2006 Office Visit [facility] Jacquie Schmitt, BENIGN HYPERTENSION Physicians (Primary Dx) [address] [place] [address], [address] [address] [phone] Social History Tobacco Use Types Packs/Day Years Used Date Smoking Tobacco: Former Cigarettes Quit : 11/07/1995 Alcohol Use Standard Drinks/Week Comments No 0 (1 standard drink = 0.6 oz pure alcoho l) Sex Assigned at Date Recorded Female 10/17/2018 7:14 PM DRY PAN CHARGER documented as of this encounter Last Filed Vital Signs Vital Sign Reading Time Taken Comments Blood Pressure 130/90 11/26/2006 10:30 AM DRY PAN CHARGER Pulse 80 11/26/2006 10:30 AM DRY PAN CHARGER Temperature 36.8 ??C (98.3 ??F) 11/26/2006 10:30 AM DRY PAN CHARGER Respiratory Rate 12 11/26/2006 10:30 AM DRY PAN CHARGER Oxygen Saturation - - Inhaled Oxygen Concentration - - Weight 95.3 kg (210 lb) 11/26/2006 10:30 AM DRY PAN CHARGER Height 170.2 cm (5' 7) 11/26/2006 10:30 AM DRY PAN CHARGER Body Mass Index 32.89 11/26/2006 10:30 AM DRY PAN CHARGER documented in this encounter Progress Notes Jacquie Schmitt - 11/26/2006 2:13 PM CST SUBJECTIVE: Here with repeated BP check noted from 180-130/ 110-80 on multiple readings. Patient is ready to start medication. Reviewed our goal of weight loss and low salt diet to possible lower BP with life style changes. OBJECTIVE: Alert, oriented, well hydrated. Skin turgor normal. Regular rate and rhythm. S1 and S2 normal, no murmurs, clicks, gallops or rubs. No edema or JVD. Chest is clear; no wheezes or rales. ASSESSMENT: 401.1 BENIGN HYPERTENSION (primary encounter diagnosis) Plan: A.M.A. BASIC METABOLIC PANEL, VENOUS COLLECTION, SPECIMEN HANDLING,DR OFF->LAB, HYDROCHLOROTHIAZIDE 25 MG OR TABS Potential medication side effects were discussed with the patient; let me know if any occur. Start to monitor her blood pressure response and recheck in 2-3 weeks. Bananas for potassium supplementation reviewed. PAN CHARGER documented in this encounter Nursing Notes 11/26/2006 10:30 AM CST >> EVE SIMON 11/26/2006 11:01 am Patient is here for a recheck of [...] Priority Date/Time Associated Diagnosis Comme nts HCL BASIC METABOLIC Routine 11/27/2006 12:00 Benign Hypertensi on Results for this PANEL AM DRY PAN CHARGER procedure are i n the results section. HC VENOUS Routine 11/26/2006 11:24 Benign Hypertension COLLECTION AM DRY PAN CHARGER documented in this encounter Results (ABNORMAL) A.M.A. BASIC METABOLIC PANEL [03757.000] (11/27/2006 12:00 AM DRY PAN CHARGER) athologist Signature Glucose 98 65 - 99 [facility] mg/dL [facility] Comment: FASTING REFERENCE INTERVAL Urea Nitrogen 21 7 - 25 mg/dL [facility] Creatinine 0.7 0.5 - 1.2 mg/dL [facility] GFR Estimate >60 > OR = 60 mL/min/1.73m2 [facility] Comment: IF THE PATIENT IS -IRAQI, PLEA SE MULTIPLY THIS RESULT BY 1.21. THIS RESULT HAS BEE N CALCULATED ASSUMING THE PATIENT IS NON- AMER ICAN. BUN/Creatinine Ratio 30 (H) 6 - 25 (calc) [facility] Sodium 141 135 - 146 mmol/L [facility] Potassium 4.5 3.5 - 5.3 mmol/L [facility] Chloride 105 98 - 110 mmol/L [facility] Carbon Dioxide 26 21 - 33 mmol/L [facility] Calcium 9.7 8.5 - 10.4 mg/dL [facility] Comment: NO COLLECTION DATE RECEIVED. WE HAVE USE D THE DATE THE SPECIMEN WAS RECEIVED BY [facility] THE COLLECTION DATE. IF IS IS INCORRECT, PLEASE CONTACT CLIENT SERV SHANIQUA. PHONE NUMBER: [phone] Test performed at [facility] [address] ??[id number] Director: MANAV LAWS M.D. Specimen (Source) Anatomical Collection Method Collection Time Re ceived Time Location / / Volume Laterality 11/26/2006 11:0 1 PM DRY PAN CHARGER Jacquie Schmitt MD LABORATORY Performing Organization Address City/State/ZIP Code Phon e Number [facility] [address] [place] [phone] [facility] [address] [place] [phone] documented in this encounter Visit Diagnoses Diagnosis Essential hypertension, benign - Primary documented in this encounter Care Teams Money Room Teller Relationship Specialty Start Date End Date Jacquie Schmitt MD PCP - General 11/24/99 02/11/[address], [facility] 100 [place] [address] documented as of this encounter
--- OUTSIDE RECORDS SUMMARY | 2022-08-18 09:34 | XMS_ITS | Encounter Summary ---
:1945 Author Organization [facility] Address [address] [place] [address] Care Team Providers Name Role Phone Jacquie Schmitt MD Primary Care Provider Reason for Visit Reason Comments Hypertension Encounter Details Date Type Department Care Team Description 11/21/2006 Allied Health/Nurse [place] [facility] Jacquie Schmitt, Hypertension Visit Physicians [address] [address] , [address] [address] [phone] Social History Tobacco Use Types Packs/Day Years Used Date Smoking Tobacco: Former Cigarettes Quit : 11/07/1995 Alcohol Use Standard Drinks/Week Comments No 0 (1 standard drink = 0.6 oz pure alcoho l) Sex Assigned at Date Recorded Female 10/17/2018 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 It was running high at her last OV. Patient is going to keep taking her BP and make an appointment with [facility]. documented in this encounter Plan of Treatment Not on filedocumented as of this encounter Visit Diagnoses Diagnosis Essential hypertension, benign - Primary documented in this encounter Care Teams Dental Hygienist Mobile Coordinator Relationship Specialty Start Date End Date Jacquie Schmitt MD PCP - General 11/24/99 02/11/[address], [facility] 100 [place] [address] documented as of this encounter
--- OUTSIDE RECORDS SUMMARY | 2022-08-18 09:34 | XMS_ITS | Encounter Summary ---
:1945 Author Organization [facility] Address [address] [place] [address] Care Team Providers Name Role Phone Jacquie Schmitt MD Primary Care Provider Encounter Details Date Type Department Care Team Description 11/19/2006 Telephone [facility] Jacquie Schmitt MD [address] [place] [address] [address] [place] [address] 100 100 [place] [address] [place], [place] [id number] (Wo rk) Social History Tobacco Use Types Packs/Day Years Used Date Smoking Tobacco: Former Cigarettes Quit : 11/07/1995 Alcohol Use Standard Drinks/Week Comments No 0 (1 standard drink = 0.6 oz pure alcoho l) Sex Assigned at Date Recorded Female 10/17/2018 7:14 PM DAIRY BACTERIOLOGIST documented as of this encounter Miscellaneous Notes Telephone Encounter - Leora Regalado - 11/19/2006 12:15 PM CST ptinformed Y BACTERIOLOGIST Telephone Encounter - [place] - 11/19/2006 12:12 PM CST Needs to be seen to start meds but can wait until Mon unless chest pain or shortness of breath etc Y BACTERIOLOGIST Telephone Encounter - Leora Regalado - 11/19/2006 12:10 PM CST PT was in last week for elevated b/p and has appt on Tuesday for recheck. States she has been checking it lalst few days and is very elevated: 160-200/100-113. Is not having any chest discomfort. Pt is wondering what you suggest she does. [phone] Y BACTERIOLOGIST documented in this encounter Plan of Treatment Not on filedocumented as of this encounter Visit Diagnoses Not on filedocumented in this encounter Care Teams Gel Coater Relationship Specialty Start Date End Date Jacquie Schmitt MD PCP - General 11/24/99 02/11/14 [address] [facility] 100 [place] [address] documented as of this encounter
--- OUTSIDE RECORDS SUMMARY | 2022-08-18 09:34 | XMS_ITS | Encounter Summary ---
:1945 Author Organization [facility] Address [address] [place] [address] Care Team Providers Name Role Phone Jacquie Schmitt MD Primary Care Provider Reason for Referral - Closed Specialty Diagnoses / Procedures Referred By Contact Refer red To Contact Diagnoses Postmenopausal bleeding Jacquie Schmitt MD [address] [place] [address] Referral ID Status Reason Start Date Expiration Date Visits Requ ested Visits Authorized [id number] Closed 05/30/2007 11/06/2011 1 1 Reason for Visit Reason Onset Date Comments Results 05/30/2007 ultrasound Encounter Details Date Type Department Care Team Description 05/30/2007 Telephone [facility] Jacquie Schmitt MD Results (ultrasound) Physicians [address] [place] [address], [address] [place] [phone] Social History Tobacco Use Types Packs/Day Years Used Date Smoking Tobacco: Former Cigarettes Quit : 11/07/1995 Alcohol Use Standard Drinks/Week Comments No 0 (1 standard drink = 0.6 oz pure alcoho l) Sex Assigned at Date Recorded Female 10/17/2018 7: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 Place: Dr.Curran Garcia TOOL CRIB ATTENDANT Consultants - [facility] - Phone - [phone] Fax - [phone] [facility], [address] [place] [address] [address] Patient called with date and time. Will fax over the U/S report. Telephone Encounter - Jacquie Schmitt - 05/30/2007 5:45 PM CDT Called home number. Notified of her ultrasound. We will schedule a RADIOGRAPHER TECHNOLOGIST consult for endometrial biopsy. She is free on Mondays and Tuesdays after June 11. Can leave a message on her home answering machine. Telephone Encounter - Jacquie Schmitt - 05/30/2007 2:44 PM CDT Called and left a message on answering machine that I have results as expected and to call us back. documented in this encounter Plan of Treatment Not on filedocumented as of this encounter Procedures Procedure Name Priority Date/Time Associated Diagnosis Comme nts ZZ CONSULT TO GYNECOLOGY Routine 07/05/2007 Postmenopausal B leeding documented in this encounter Results CONSULT TO GYNECOLOGY (07/05/2007) Narrative This result has an attachment that is no t available. Jacquie Schmitt MD REFERRAL documented in this encounter Visit Diagnoses Diagnosis Postmenopausal bleeding - Primary documented in this encounter Care Teams Stone Rubber Relationship Specialty Start Date End Date Jacquie Schmitt MD PCP - General 11/24/99 02/11/[address], [facility] 100 [place] [address] documented as of this encounter
--- OUTSIDE RECORDS SUMMARY | 2022-08-18 09:34 | XMS_ITS | Encounter Summary ---
:1945 Author Organization [place] Address [address] [place] [address] Care Team Providers Name Role Phone Jacquie Schmitt MD Primary Care Provider Reason for Referral - Closed Specialty Diagnoses / Procedures Referred By Contact Refer red To Contact Gynecology Diagnoses Postmenopausal bleeding Jacquie Schmitt MD [address] [place] [address] Referral ID Status Reason Start Date Expiration Date Visits Requ ested Visits Authorized [id number] Closed 05/29/2007 11/06/2011 1 1 Reason for Visit Reason Comments Urinary Problem Encounter Details Date Type Department Care Team Description 05/29/2007 Office Visit [facility] Jacquie Schmitt, POSTME NOPAUSAL BLEEDING (Primary Dx); Physicians [facility] [address] [address] , [facility] [address] [address] [phone] Social History Tobacco Use Types Packs/Day Years Used Date Smoking Tobacco: Former Cigarettes Quit : 11/07/1995 Alcohol Use Standard Drinks/Week Comments No 0 (1 standard drink = 0.6 oz pure alcoho l) Sex Assigned at Date Recorded Female 10/17/2018 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 documented as of this encounter Last Filed Vital Signs Vital Sign Reading Time Taken Comments Blood Pressure 110/70 05/29/2007 11:00 AM CDT Pulse 80 05/29/2007 11:00 AM CDT Temperature 36.8 ??C (98.2 ??F) 05/29/2007 11:00 AM CDT Respiratory Rate 12 05/29/2007 11:00 AM CDT Oxygen Saturation - - Inhaled Oxygen Concentration - - Weight 92.5 kg (204 lb) 05/29/2007 11:00 AM CDT Height 174.6 cm (5' 8.75) 05/29/2007 11:00 AM CDT Body Mass Index 30.35 05/29/2007 11:00 AM CDT documented in this encounter Progress Notes Jacquie Schmitt - 05/29/2007 11:56 AM CDT SUBJECTIVE: Full lower pelvic sensation with streaks of blood noted when she wipes her bottom after urination. Feels full and sometimes feels a if she is going to the restroom more frequently. Normal pelvic exam 03/2007. Normal thin prep. OBJECTIVE: Alert, oriented, well hydrated. Skin turgor normal. The abdomen is soft without tenderness, guarding, mass or organomegaly. Bowel sounds are normal. No CVA tenderness or inguinal adenopathy noted. Vaginal exam shows minimal bright red blood from the cervical os. Normal size uterus. Nontender. UA: slight blood. ASSESSMENT: 627.1 POSTMENOPAUSAL BLEEDING (primary encounter diagnosis) Plan: CONSULT TO GYNECOLOGY, SONO PELVIS COMPLETE Ultrasound followed by endometrial evaluation. Reviewed need for diagnosis and treatment including ruling out endometrial malignancy. Patient understands our plan. 599.7 HEMATURIA Plan: URINALYSIS, ROUTINE, CULTURE, URINE, SPECIMEN HANDLING,DR OFF->LAB Probable secondary to vaginal bleeding. Await culture. documented in this encounter Nursing Notes 05/29/2007 11:00 AM CDT >> EVE SIMON 05/29/2007 12:17 pm Telephone call made to schedule Shahnaz Glasgow for the following: Pelvic U/S Date: 05/29/07 Time: 2:15am Place: [facility] >> EVE SIMON 05/29/2007 11:28 am Patient states that last week she has some blood on the tissue when she wiped after urinating. She has been having a funny feeling in her lower abd area. Questioned patient about current smoking habits. Pt. currently smokes. Advised about smoking cessation. CLASSIFICATION OF OVERWEIGHT AND OBESITY BY BMI Obesity Class BMI(kg/m2) Underweight < 18.5 Normal 18.5-24.9 Overweight 25.0-29.9 OBESITY I 30.0-34.9 II 35.0-39.9 EXTREME OBESITY III >40 Patient's BMI Body mass index is 30.35 kg/(m^2). Http://hin.nhlbi.nih.gov/menuplanner/menu.cgi documented in this encounter Plan of Treatment Scheduled Referrals Name Type Priority Associated Diagnoses Order S chedule CONSULT TO GYNECOLOGY Referral Routine Postmenopausal Blee ding Ordered: 05/29/2007 documented as of this encounter Procedures Procedure Name Priority Date/Time Associated Diagnosis Comme nts ZZCL AFF CULTURE, Routine 05/31/2007 2:00 AM Hematuria Resu lts for this URINE CDT procedure are i n the results section. HC US PELVIC Routine 05/29/2007 4:13 PM Postmenopausal Bleedin g Results for this NON-OB, COMPLETE CDT procedure a re in the results section. CL AFF URINALYSIS, Routine 05/29/2007 11:48 Hematuria Resul ts for this ROUTINE AM CDT procedure are i n the results section. documented in this encounter Results CULTURE, URINE (05/31/2007 2:00 AM CDT) P athologist Signature Urine Voided SEE NOTE [facility] Comment: ??CULTURE, URINE, ROUTINE ?MICRO NUMBER: ?[id number] ??TEST STATUS: ? FINAL ??SPECIMEN SOURCE: ?? URINE ??SPECIMEN COMMENTS: ADEQUATE ??RESULT: ?MULTIPLE ORG ANISMS PRESENT, EACH LESS THAN 10,000 ? CFU/ML. T HESE ORGANISMS, COMMONLY FOUND ON ? EXTERNAL AND INTERNAL GENITALIA, ARE CONSIDERED ? TO BE COL ONIZERS. NO FURTHER TESTING PERFORMED. NO COLLECTION DATE RECEIVED. WE HAVE USE D THE DATE THE SPECIMEN WAS RECEIVED BY IS LABORATORY THE COLLECTION DATE. IF IS IS INCORRECT, PLEASE CONTACT CLIENT SERV SHANIQUA. PHONE NUMBER: [phone] Test performed at [facility] [address] ??[address] Director: MANAV LAWS M.D. Specimen (Source) Anatomical Collection Method Collection Time Re ceived Time Location / / Volume Laterality 05/30/2007 1:36 AM CDT Jacquie Schmitt MD LABORATORY Performing Organization Address City/State/ZIP Code Phon e Number [facility] [address] [facility] [address] PELVIS (05/29/2007 4:13 PM CDT) Anatomical Region Laterality Modality Other Narrative 05/29/2007 4:13 PM CDT [facility] * Fax: [phone] [facility] 100/[address] [phone] MRI, CT, General, Fluoroscopy, Ultrasoun d, Spinal Injections [address] [place] [address] Age: 61 Y Work Phone: Dept No.: [id number] SHAHNAZ GLASGOW : 1945 Re. Phys: Jacquie Schmitt PELVIC US w/TRANSVAGINAL Exam Date: 05/08 Clinic MRN: Clinic: [facility] c#: [id number] ULTRASOUND PELVIC WITH TRANSVAGINAL May 29, 2007 2:34:00 PM HISTORY: Postmenopausal bleeding. Crampi ng. FINDINGS: Transabdominal and transvagina l imaging performed. Transvaginal imaging performed to better visualize the endometrium and ovaries. The uterus is n ormal in size and position measuring 6.1 x 4.3 x 2.1 cm. T he endometrium is normal in thickness at 3 mm. There is a solitary small uterine fibroid measuring 0.5 x 0.7 x 0.4 cm. Th e right ovary is not identified. Left ovary is normal in size and appearance. No adnexal mass. There is a small amount of free pelvic fluid. IMPRESSION: 1. Normal endometrium at 3 mm thickness. 2. Solitary small uterine fibroid. 3. There is a small amount of free fluid in the pelvis of uncertain etiology. RK Performed by: Transcribed By: MATT on: 05/29/2007 3:13 P M CDT Finalized By: MELLISA SALDIVAR M.D. on: 0 05/29/2007 3:35 PM CDT Dictated By: MELLISA SALDIVAR M.D. Sig amanda by: DAVI Page 1 of 1 Jacquie Schmitt MD SPECIAL IMAGING STUDIES (ABNORMAL) URINALYSIS, ROUTINE (05/29/2007 11:48 AM CDT) [facility] Method Time Signature Color Urine yellow [facility] Appearance Urine clear [facility] Glucose Urine neg mg/dL [facility] Bilirubin Urine neg [facility] Ketones Urine neg mg/dL [facility] Specific [place] 1.020 [facility] Blood Urine trace (A) [facility] pH Arterial 8.5 (A) 5.0 - 7.0 [facility] Albumin Urine neg neg - neg [facility] mg/dL Urobilinogen 0.2 EU/dL [facility] Urine Nitrite Urine neg [facility] Leukocyte neg neg - neg [facility] Esterase Wbc, Urine Micro 5-7 neg - 2 [facility] RBC Micro Urine 2-4 neg - 2 [facility] EP/HPF few [facility] Bacteria Urine few neg - neg [facility] Casts/LPF neg [facility] Miscellaneous neg [facility] Jacquie Schmitt MD LABORATORY Performing Organization Address City/State/ZIP Code Phon e Number [facility] documented in this encounter Visit Diagnoses Diagnosis Postmenopausal bleeding - Primary Hematuria documented in this encounter Care Teams Joint Machine Operator Relationship Specialty Start Date End Date Jacquie Schmitt MD PCP - General 11/24/99 02/11/[address], [address] [place] [address] documented as of this encounter
--- OUTSIDE RECORDS SUMMARY | 2022-08-18 09:34 | XMS_ITS | Encounter Summary ---
:1945 Author Organization [place] Address [address] [place] [address] Care Team Providers Name Role Phone Jacquie Schmitt MD Primary Care Provider Reason for Visit Reason Comments UTI Encounter Details Date Type Department Care Team Description 07/31/2007 Office Visit [facility] Jacquie Schmitt, JIMENEZ MARLOW INFECTION Physicians NOS (Primary Dx) [address] [phone] [phone] Social History Tobacco Use Types Packs/Day Years Used Date Smoking Tobacco: Former Cigarettes Quit : 11/07/1995 Alcohol Use Standard Drinks/Week Comments No 0 (1 standard drink = 0.6 oz pure alcoho l) Sex Assigned at Date Recorded Female 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 as of 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 encounter Last Filed Vital Signs Vital Sign Reading Time Taken Comments Blood Pressure 120/80 07/31/2007 10:30 AM CDT Pulse 80 07/31/2007 10:30 AM CDT Temperature 36.8 ??C (98.3 ??F) 07/31/2007 10:30 AM CDT Respiratory Rate 12 07/31/2007 10:30 AM CDT Oxygen Saturation - - Inhaled Oxygen Concentration - - Weight 93.4 kg (206 lb) 07/31/2007 10:30 AM CDT Height 170.8 cm (5' 7.25) 07/31/2007 10:30 AM CDT Body Mass Index 32.02 07/31/2007 10:30 AM CDT documented in this encounter Progress Notes DoloresJacquie sifuentes - 07/31/2007 10:53 AM CDT SUBJECTIVE: Shahnaz Phelps is an 61 year old female who presents with suspected urinary tract infection. Her symptoms began 1 day ago and include dysuria and frequency. Predisposing factors: frequent sexual intercourse and menopause Hx of previous UTI???s: rare Sexually active: yes, single partner, contraception - menopause 1 [id number] MED 1. MACROBID 100 MG OR CAPS Route: Oral Sig:ONE CAPSULE TWICE DAILY Dispense: 14 Refill: 0 2. HYDROCHLOROTHIAZIDE 25 MG OR TABS Route: Oral Si/2 TABLET DAILY IN THE MORNING Dispense: 45 Refill: 1 3. POTASSIUM CHLORIDE 10 MEQ OR TBCR Route: Oral Si-4 bananas/week Dispense: 0 Refill: 0 4. NASACORT AQ 55 MCG/ACT NA AERS Route: Nasal Sig:INHALE 2 SPRAYS IN EACH NOSTRIL ONE DAILY Dispense: 3 MONTHS Refill: 3 5. REPLENS VA GEL Route: Vaginal Si appl qweek Dispense: 0 Refill: 0 6. GLUCOSAMINE CHONDROITIN OR TABS Route: Oral Si daily, Dr love Dispense: 0 Refill: 0 7. RETIN-A MICRO 0.04 % EX GEL Route: Apply externally Sig:at bedtime, Dr Hopper Dispense: Refill: 0 8. FINACEA 15 % EX GEL Route: Apply externally Sig:apply in the am, Dr Hopper Dispense: 0 Refill: 0 9. CALCIUM 600 + D 600-200 MG-UNIT OR TABS Route: Sig: Dispense: 0 Refill: 0 1 [id number] MED 1 8 ALLERGY 1 -- Imidazole Antifungals -- hives -- Penicillins -- hives 1 8 ALLERGY 1 OBJECTIVE: 1 [id number] VS BP 120/80 Pulse 80 Temp (Src) 98.3 (Oral) Resp 12 Ht 5' 7.25 (1.71m) Wt 206 lbs (93.4kg) LMP Postmenopausal 1 [id number] VS General appearance: healthy, alert, no distress and cooperative Hydration: well hydrated CVA tenderness to percussion: absent Abdomen: rounded and symmetric, normal bowel sounds. Tenderness: none Masses: none Organomegaly: none ASSESSMENT/PLAN: 599.0 URIN TRACT INFECTION NOS (primary encounter diagnosis) Plan: URINALYSIS, ROUTINE, CULTURE, URINE, SPECIMEN HANDLING,DR OFF->LAB, MACROBID 100 MG OR CAPS Patient was instructed to drink plenty of fluids, urinate frequently and to contact the office promptly should she notice fever greater than 102, increase in discomfort, skin rash, lack of improvementafter 2 days of treatment, or the appearance of new symptoms. Discussed vaginal lubrication with Replens and prevention around sexual intercourse. documented in this encounter Nursing Notes 07/31/2007 10:30 AM CDT >> EVE SIMON 07/31/2007 10:32 am Patient is here for a possible UTI. Questioned patient about current smoking habits. Pt. quit smoking some time ago. CLASSIFICATION OF OVERWEIGHT AND OBESITY BY BMI Obesity Class BMI(kg/m2) Underweight < 18.5 Normal 18.5-24.9 Overweight 25.0-29.9 OBESITY I 30.0-34.9 II 35.0-39.9 EXTREME OBESITY III >40 Patient's BMI Body mass index is 32.03 kg/(m^2). Http://hin.nhlbi.nih.gov/menuplanner/menu.cgi documented in this encounter Plan of Treatment Not on filedocumented as of this encounter Procedures Procedure Name Priority Date/Time Associated Diagnosis Comme nts ZZCL AFF CULTURE, Routine 08/01/2007 11:00 PM Urin Tract Infec tion Results for this URINE CDT Nos procedure are i n the results section. CL AFF URINALYSIS, Routine 07/31/2007 10:33 AM Urin Tract Infe ction Results for this ROUTINE CDT Nos procedure are i n the results section. documented in this encounter Results CULTURE, URINE (08/01/2007 11:00 PM CDT) P athologist Signature Urine Voided SEE NOTE [facility] Comment: ??CULTURE, URINE, ROUTINE ?MICRO NUMBER: ?[id number] ??TEST STATUS: ? FINAL ??SPECIMEN SOURCE: ?? [...] IF IS IS INCORRECT, PLEASE CONTACT CLIENT [employer] [facility]. PHONE NUMBER: [phone] Test performed at [facility] [address] ??[address] Director: MANAV LAWS M.D. Specimen (Source) Anatomical Collection Method Collection Time Re ceived Time Location / / Volume Laterality 08/01/2007 2:06 AM CDT Jacquie Schmitt MD LABORATORY Performing Organization Address City/State/ZIP Code Phon e Number [facility] [facility] [address] URINALYSIS, ROUTINE (07/31/2007 10:33 AM CDT) [facility] gist Method Time Signature Color Urine yellow [facility] Appearance Urine clear [facility] Glucose Urine neg mg/dL [facility] Bilirubin Urine neg [facility] Ketones Urine neg mg/dL [facility] Specific [place] 1.025 [facility] Blood Urine large [facility] pH Arterial 6.5 5.0 - 7.0 [facility] Albumin Urine 30mg/dL neg - neg [facility] mg/dL Urobilinogen Urine 0.2 EU/dL [facility] L Nitrite Urine neg [facility] Leukocyte Esterase small neg - neg [facility] L Wbc, Urine Micro 10-15 neg - 2 [facility] RBC Micro Urine 25-40+ neg - 2 [facility] EP/HPF occ [facility] Bacteria Urine few neg - neg [facility] Casts/LPF neg [facility] Miscellaneous mucus [facility] Jacquie Schmitt MD LABORATORY Performing Organization Address City/State/ZIP Code Phon e Number [facility] documented in this encounter Visit Diagnoses Diagnosis Urinary tract infection, site not specif ied - Primary documented in this encounter Care Teams Leach Cell Operator Relationship Specialty Start Date End Date Jacquie Schmitt MD PCP - General 11/24/99 02/11/[address], [facility] [address] [place] [address] documented as of this encounter
--- OUTSIDE RECORDS SUMMARY | 2022-08-18 09:34 | XMS_ITS | Encounter Summary ---
:1945 Author Organization [place] Address [address] [place] [address]. [place] [address] Care Team Providers Name Role Phone Jacquie Schmitt MD Primary Care Provider Encounter Details Date Type Department Care Team Description 06/09/2006 Therapy Visit [place] [facility] Francisco Ferrer (Primary Medicine - [place] Tabatha, PT Dx) Physical Therapy 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 documented in this encounter Plan of Treatment Not on filedocumented as of this encounter Procedures Procedure Name Priority Date/Time Associated Diagnosis Comme nts [facility] NEUROMUSCULAR Routine 06/09/2006 6:01 PM iamSCIATICA RE-EDUCATION CDT [facility] THERAPEUTIC EXERCISES Routine 06/09/2006 6:01 PM iamSCIATI CA CDT documented in this encounter Visit Diagnoses Diagnosis iamSCIATICA - Primary Sciatica documented in this encounter Care Teams Sexual Assault Social Worker Relationship Specialty Start Date End Date Jacquie Schmitt MD PCP - General 11/24/99 02/11/14 [address] [facility] [address] [place] [address] documented as of this encounter
--- OUTSIDE RECORDS SUMMARY | 2022-08-18 09:34 | XMS_ITS | Encounter Summary ---
:1945 Author Organization [place] Address [address] [place] [address] Care Team Providers Name Role Phone Jacquie Schmitt MD Primary Care Provider Reason for Visit Reason Comments Instructor Extension Work Exam Encounter Details Date Type Department Care Team Description 03/13/2007 Office Visit [facility] Jacquie Schmitt ROUTIN E LIFE UNDERWRITER EXAMINATION (Primary Dx); Physicians ABSENCE OF MENSTRUATION; [address], BENIGN HYPERTENSION; [address] SCREENING MAL NEOP-BREAST NOS; [place], [place] SCREENING-D IABETES MELLITUS; [phone] SCREENING-LIPOID DISORDERS; [phone] CHR MAXILLARY S INUSITIS; (Work) INGROWING NAIL; [phone] ATROPHIC VAGINI TIS (Fax) Social History Tobacco Use Types Packs/Day Years Used Date Smoking Tobacco: Former Cigarettes Quit : 11/07/1995 Alcohol Use Standard Drinks/Week Comments No 0 (1 standard drink = 0.6 oz pure alcoho l) Sex Assigned at Date Recorded 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 encounter Last Filed Vital Signs Vital Sign Reading Time Taken Comments Blood Pressure 132/88 03/13/2007 10:15 AM CDT Pulse 80 03/13/2007 10:15 AM CDT Temperature 36.8 ??C (98.2 ??F) 03/13/2007 10:15 AM CDT Respiratory Rate 12 03/13/2007 10:15 AM CDT Oxygen Saturation - - Inhaled Oxygen Concentration - - Weight 95.3 kg (210 lb) 03/13/2007 10:15 AM CDT Height 170.8 cm (5' 7.25) 03/13/2007 10:15 AM CDT Body Mass Index 32.65 03/13/2007 10:15 AM CDT documented in this encounter Progress Notes Jacquie Schmitt - 03/13/2007 10:59 AM CDT SUBJECTIVE: Shahnaz Glasgow is an 61 year old postmenopausal woman who 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 Menopause at age 49. No bleeding, spotting, or discharge noted. Estrogen replacement therapy: none currently, has taken in past SAMANTA exposure: no History of abnormal Pap smear: no Family history of uterine or ovarian cancer: yes - mother ovarian Regular self breast exam: Yes History of abnormal mammogram: yes - benign biopsy Family history of breast cancer: no History of abnormal lipids: no 1 060102 PMH Past Medical History ACNE NEC POSTMENOPAUSAL HORMONAL REPLACEMENT [place] RHINITIS DUE TO POLLEN 1 173463 PMH 1 38 FAMHX 1 Family History Cancer Brother Comment: colon 1 38 FAMHX 1 1 [id number] PSH Past Surgical History COLONOSCOPY & POLYPECTOMY COLONOSCOPY & POLYPECTOMY COLONOSCOPY & POLYPECTOMY 2000 COLONOSCOPY & POLYPECTOMY 2002 Comment: Dr Bonita AGOSTO CATARACT EXTRACAP,INSERT LENS 03/10/04 Comment: right REMCorrie CATARACT EXTRACAP,INSERT LENS 04/10 Comment: left Dr Keith ANESTH,SKIN SURGERY, BACK 12/21/04 Comment: squamous cell of the back ANESTH,SKIN SURGERY,NECK 12/21/04 Comment: basal cell KNEE SCOPE,MED/LAT MENISECTOMY 04/2005 Comment: Dr Arevalo BREAST BIOPSY, RT/LT 04/2005 Comment: left breast LIGATN/STRIP LONG & SHORT SAPHEN 03/2006 Comment: right leg EXC SKIN MALIG 0.5CM OR LESS,FACIAL 12/2004 Comment: MOHS on right cheek/ basal cell 1 [id number] PSH 1 277599 MED 1. HYDROCHLOROTHIAZIDE 25 MG OR TABS Route: Oral Si/2 TABLET DAILY IN THE MORNING Dispense: 45 Refill: 1 Comments:[employer] ID-[id number] 2. POTASSIUM CHLORIDE 10 MEQ OR TBCR Route: Oral Si-4 bananas/week Dispense: 0 Refill: 0 3. GLUCOSAMINE CHONDROITIN OR TABS Route: Oral Si daily, Dr love Dispense: 0 Refill: 0 4. RETIN-A MICRO 0.04 % EX GEL Route: Apply externally Sig:at bedtime, Dr Hopper Dispense: Refill: 0 5. FINACEA 15 % EX GEL Route: Apply externally Sig:apply in the am, Dr Hopper Dispense: 0 Refill: 0 6. CALCIUM 600 + D 600-200 MG-UNIT OR TABS Route: Sig: Dispense: 0 Refill: 99994 MED 1 8 ALLERGY 1 -- Imidazole Antifungals -- hives -- Penicillins -- hives 1 8 ALLERGY 1 1 107 SOCX 1 Tobacco Use: Quit Quit date: 11/07/1995 Alcohol Use: No 1 107 SOCX 1 Review Of Systems Ears/Nose/Throat: sinus trouble Respiratory: negative Cardiovascular: HTN under good control Gastrointestinal: negative, colon polyps Dr Mesa follows Genitourinary: negative Ext: Right thumb nail pain/problems OBJECTIVE: 1 [id number] VS BP 132/88 Pulse 80 Temp (Src) 98.2 (Oral) Resp 12 Ht 5' 7.25 (1.71m) Wt 210lbs (95.3kg) LMP Postmenopausal1 [id number] VS General appearance: healthy, alert, no distress, [...] rectovaginal normal., positive findings: vaginal mucosa atrophy Ext: Right periungual erythema/ paronychia formation ASSESSMENT:V72.31 ROUTINE LIFE UNDERWRITER EXAMINATION (primary encounter diagnosis) Plan: THIN LAY PAP,DIAG W/HPV REFLEX, SPECIMEN HANDLING,DR OFF->LAB, VENOUS COLLECTION, HEMOGLOBIN Total calcium intake of 1500 mgm/day, vitamin D 400-800IU/day and a regular weight bearing exerciseprogram for prevention of osteoporosis is recommended treatment at this time. 626.0 ABSENCE OF MENSTRUATION Plan: [facility] reviewed. 401.1 BENIGN HYPERTENSION Plan: VENOUS COLLECTION, SPECIMEN HANDLING,DR OFF->LAB, A.M.A. BASIC METABOLIC PANEL, HYDROCHLOROTHIAZIDE 25 MG OR TABS, POTASSIUM CHLORIDE 10 MEQ OR TBCR Recheck in 6 months. V76.10 SCREENING MAL NEOP-BREAST NOS Plan: BFP SEND-OUT MAMMOGRAM Schedule 04/2007 V77.1 SCREENING-DIABETES MELLITUS Plan: VENOUS COLLECTION, SPECIMEN HANDLING,DR OFF->LAB, A.M.A. BASIC METABOLIC PANEL pending V77.91 SCREENING-LIPOID DISORDERS Plan: VENOUS COLLECTION, SPECIMEN HANDLING,DR OFF->LAB, A.M.A. LIPID PANEL pending 473.0 CHR MAXILLARY SINUSITIS Plan: NASACORT AQ 55 MCG/ACT NA AERS Refilled for prevention 703.0 INGROWING NAIL Plan: KEFLEX 500 MG OR TABS Skin and hand care reviewed. May need to return for I&D 627.3 ATROPHIC VAGINITIS Plan: REPLENS VA GEL Trial. Pap pending Dx: 1) Pap smear, mammogram 2) Lipids at appropriate intervals PE: Reviewed health maintenance including diet, regular exercise, estrogen replacement and periodic exams. documented in this encounter Nursing Notes 03/13/2007 10:15 AM CDT >> EVE SIMON 03/13/2007 10:47 am Pt is here for a full physical exam and pap. Patient is fasting Questioned patient about current smoking habits. Pt. quit smoking some time ago. CLASSIFICATION OF OVERWEIGHT AND OBESITY BY BMI Obesity Class BMI(kg/m2) Underweight < 18.5 Normal 18.5-24.9 Overweight 25.0-29.9 OBESITY I 30.0-34.9 II 35.0-39.9 EXTREME OBESITY III >40 Patient's BMI Body mass index is 32.65 kg/(m^2). Http://hin.nhlbi.nih.gov/menuplanner/menu.cgi documented in this encounter Plan of Treatment Not on filedocumented as of this encounter Procedures Procedure Name Priority Date/Time Associated Diagnosis Comme nts BFP SEND-OUT Routine 05/11/2007 12:41 Screening Mal Results fo r this MAMMOGRAM PM CDT Neop-Breast Nos procedure ar e in the results section. ZZCL AFF THIN LAY Routine 03/14/2007 9:00 AM Routine Instructor Extension Work Resu lts for this PAP,DIAG W/HPV CDT Examination procedure are in REFLEX the results section. HCL BASIC METABOLIC Routine 03/14/2007 4:00 AM Benign Hy pertension Results for this PANEL CDT Screening-Diabetes procedure are in Mellitus the results section. HCL LIPID PANEL Routine 03/14/2007 4:00 AM Screening-Lipoid Re sults for this CDT Disorders procedure are i n the results section. ZZCL AFF HEMOGLOBIN Routine 03/13/2007 11:04 Routine Instructor Extension Work Resu lts for this AM CDT Examination procedure are i n the results section. HC VENOUS COLLECTION Routine 03/13/2007 10:55 Routine Instructor Extension Work AM CDT Examination Benign Hypertens ion Screening-Diabetes Mellitus Screening-Lipoid Disorders documented in this encounter Results MAMMOGRAM (05/11/2007 12:41 PM CDT) Anatomical Region Laterality Modality Other Narrative 05/11/2007 12:41 PM CDT [facility] [place] * Fax: [phone] [facility] [address], [place] [address] MRI, CT, General, Mammography, Ultrasoun d [address] [place] [address] Age: 61 Y Work Phone: Dept No.: [id number] SHAHNAZ GLASGOW : 1945 Req. Phys: Jacquie Schmitt BILATERAL SCREENING MAMMOGRAM Exam Date: 05/08/2007 Clinic MRN: Clinic: [place] c#: [id number] Breast symptoms: None. Previous mammography: Comparison with SI 03/29/05, 04/16/02, there is no significant change. Breast parenchyma: Heterogeneously dense . Comments: Biopsy marker left upper breas t marking the site of a previous benign biopsy. There are a few clustered microcalcifications deep in the right br east which are unchanged. These should be monitored for stability with yearly mammography. Two small low density nodul es in the left inferior breast are also stable. IMAGING IMPRESSION: ACR CATEGORY 2. SHAVONNE GN FINDINGS, NO EVIDENCE OF MALIGNANCY. Images were reviewed with the aid of CAD (R2 v5.3). Exam results letter mailed to patient. CK Performed by: Transcribed By: JOVON on: 05/11/2007 8:57 A M CDT Finalized By: NIALL ZARATE M.D. on: 11:13 AM CDT Dictated By: NIALL ZARATE M.D. Signed by: KEIRY Page 1 of 1 Jacquie Schmitt MD GENERAL IMAGING THIN LAY PAP,DIAG W/HPV REFLEX ([id number]) (03/14/2007 9:00 AM CDT) [facility] Method Time Signature Report status FINAL MAYRA VO Clinical SEE NOTE [facility] CARPIO Comment: PARA 1 1 LMP POSTMENO [facility] Last Pap Diagnosis WNL [facility] OM[facility] Prev Bx Dx NONE GIVEN MAYRA VO Source none given [facility] CARP[facility] Statement of Adequacy TEST NOT PERFORMED MAYRA VO Comment: Patient name on vial does not match requ isition. General Categorization NOT AVAIL. MAYRA VO Descriptive Diagnosis SEE NOTE [facility] CARPIO Comment: Unable to provide interpretation, see ad equacy statement. Infection NOT AVAIL. [facility] CARPIO Comment SEE NOTE MAYRA VO Comment: NAME ON THINPREP VIAL OSCAR GLASGOW SPECIMEN BEING RETURNED 03-14-07 Mortgage Loan Originator: SEE NOTE [facility] MAYRA CARPIO Comment: [place], [place](ASCP) Review Mortgage Loan Originator NOT AVAIL. MAYRA VO Pathologist NOT AVAIL. MAYRA VO See Note SEE NOTE MAYRA VO Comment: GYNECOLOGICAL CYTOLOGY IS A SCREENING HI OCEDURE SUBJECT TO BOTH FALSE NEGATIVE AND FALSE POSITIVE RESULTS. IT IS MOST RELIABLE WH EN A SATISFACTORY SAMPLE IS OBTAINED ON A REG ULAR REPETITIVE BASIS. RESULTS MUST BE INTERP RETED IN THE CONTEXT OF HISTORIC AND CURRENT C LINICAL INFORMATION. NO COLLECTION DATE RECEIVED. WE HAVE USE D THE DATE THE SPECIMEN WAS RECEIVED BY IS LABORATORY THE COLLECTION DATE. IF IS IS INCORRECT, PLEASE CONTACT CLIENT SERV SHANIQUA. PHONE NUMBER: [phone] Test performed at [facility] [place] [address] [place] [address] [facility] [address] [place], [place] ??[address] Director: SAMY ROLDAN MD Specimen (Source) Anatomical Collection Method Collection Time Re ceived Time Location / / Volume Laterality 03/13/2007 10:2 8 PM CDT Narrative [facility] - [place], [place] - 9:00 AM CDT Additional Result Information GENERAL CATEGORIZATION: RESULT NOT AV AILABLE INFECTION: RESULT NOT AVAILABLE REVIEW DIGITAL ASSET MANAGER: RESULT NOT A VAILABLE PATHOLOGIST: RESULT NOT AVAILABLE Jacquie Schmitt MD LABORATORY Performing Organization Address City/State/ZIP Code Phon e Number [facility] [address] [place] [address] [place], [place] [address] [facility] - [place], [place] A.M.A. LIPID PANEL [[id number]] (03/14/2007 4:00 AM CDT) Analysis Performed At Patho logist Time Signature Triglycerides 110 <150 mg/dL [facility] Cholesterol 191 125 - 200 [facility] mg/dL [facility] [place] HDL Cholesterol 56 > OR = 40 [facility] mg/dL [facility] [place] LDL Cholesterol 113 <130 mg/dL [facility] Calculated (calc) [facility] [place] Comment: DESIRABLE RANGE <100 MG/DL FOR PATIENTS WITH CHD OR DIABETES AND <70 MG/DL FOR DIABETIC JULIA ENTS WITH KNOWN HEART DISEASE. Cholesterol/HDL Ratio 3.4 < OR = 5.0 (calc) [facility] Comment: Test performed at [facility] [address] ??[address] Director: MANAV ALWS M.D. Specimen (Source) Anatomical Collection Method Collection Time Re ceived Time Location / / Volume Laterality 03/14/2007 1:39 AM CDT Jacquie Schmitt MD LABORATORY Performing Organization Address City/State/ZIP Code Phon e Number [facility] [address] [place], [place] [address] [facility] [place], [place] [address] (ABNORMAL) A.M.A. BASIC METABOLIC PANEL [[id number]] (03/14/2007 4:00 AM CDT) athologist Signature Glucose 102 (H) 65 - 99 [facility] mg/dL [facility] Comment: FASTING REFERENCE INTERVAL Urea Nitrogen 18 7 - 25 mg/dL [facility] Creatinine 0.7 0.5 - 1.2 mg/dL [facility] GFR Estimate >60 > OR = 60 mL/min/1.73m2 [facility] Comment: IF THE PATIENT IS -CHADIAN, PLEA SE MULTIPLY THIS RESULT BY 1.21. THIS RESULT HAS BEE N CALCULATED ASSUMING THE PATIENT IS NON- AMER ICAN. BUN/Creatinine Ratio 26 (H) 6 - 22 (calc) [facility] Sodium 140 135 - 146 mmol/L [facility] Potassium 4.4 3.5 - 5.3 mmol/L [facility] Chloride 102 98 - 110 mmol/L [facility] Carbon Dioxide 27 21 - 33 mmol/L [facility] Calcium 10.0 8.6 - 10.2 mg/dL [facility] Comment: NO COLLECTION DATE RECEIVED. WE HAVE USE D THE DATE THE SPECIMEN WAS RECEIVED BY IS LABORATORY THE COLLECTION DATE. IF IS IS INCORRECT, PLEASE CONTACT CLIENT SERV Sudiksha. PHONE NUMBER: [phone] Test performed at [facility] [address] ??[address] Director: MANAV LAWS M.D. Specimen (Source) Anatomical Collection Method Collection Time Re ceived Time Location / / Volume Laterality 03/14/2007 1:39 AM CDT Jacquie Schmitt MD LABORATORY Performing Organization Address City/State/ZIP Code Phon e Number [facility] [address] [place], [place] [address] [facility] [address] [place], [place] [address] HEMOGLOBIN [[id number]] (03/13/2007 11:04 AM CDT) P athologist Signature Hemoglobin 13.4 12 - 16 [facility] GM/DL Jacquie Schmitt MD LABORATORY Performing Organization Address City/State/ZIP Code Phon e Number [facility] documented in this encounter Visit Diagnoses Diagnosis Routine gynecological examination - Prim elke Absence of menstruation Essential hypertension, benign Breast screening, unspecified Screening for diabetes mellitus Screening for lipoid disorders Chronic maxillary sinusitis Ingrowing nail Postmenopausal atrophic vaginitis documented in this encounter Care Teams Metal Fabricating Supervisor Relationship Specialty Start Date End Date Jacquie Schmitt MD PCP - General 11/24/99 02/11/14 [address] , [facility] [address] [place] [address] documented as of this encounter
--- OUTSIDE RECORDS SUMMARY | 2022-08-18 09:34 | XMS_ITS | Encounter Summary ---
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 Jacquie Schmitt MD [address] [place] [address] Referral ID Status Reason Start Date Expiration Date Visits Requ ested Visits Authorized [id number] Closed 11/14/2006 11/06/2011 1 1 H 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 Reason for Visit Reason Comments Throat Problem Medication Request Encounter Details Date Type Department Care Team Description 11/14/2006 Office Visit [facility] Jacquie Schmitt, ACQ DE FORMITY NEC (Primary Dx); Physicians MD EL KOO PRES W/O HYPERTN 1000 [address] [address] [facility] [address] [address] [phone] Social History Tobacco Use Types Packs/Day Years Used Date Smoking Tobacco: Former Cigarettes Quit : 11/07/1995 Alcohol Use Standard Drinks/Week Comments No 0 (1 standard drink = 0.6 oz pure alcoho l) Sex Assigned at Date Recorded Female 10/17/2018 7:14 PM TORCH 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 documented as of this encounter Last Filed Vital Signs Vital Sign Reading Time Taken Comments Blood Pressure 176/105 11/14/2006 12:15 (from Extended PM TORCH 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 Vitals) Pulse 72 11/14/2006 12:00 PM TORCH 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 Temperature 36.6 ??C (97.9 ??F) 11/14/2006 12:00 PM TORCH 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 Respiratory Rate 12 11/14/2006 12:00 PM TORCH 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 Oxygen Saturation - - Inhaled Oxygen - - Concentration Weight 95.3 kg (210 lb) 11/14/2006 12:00 PM TORCH 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 Height 170.2 cm (5' 7) 11/14/2006 12:00 PM TORCH 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 Body Mass Index 32.89 11/14/2006 12:00 PM TORCH 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 documented in this encounter Progress Notes Jacquie Schmitt - 11/14/2006 12:36 PM CST SUBJECTIVE: Here to recheck on her left sided neck pain and clavicle deformity. Her neck pain and shoulder symptoms have resolved with NAPROSYN and stretches. She is back at work without difficulty. CXR report reviewed with normal exam. OBJECTIVE: BP noted. Prominence of the left clavicle articulation with the sternum noted and unchanged from last visit. Regular rate and rhythm. S1 and S2 normal, no murmurs, clicks, gallops or rubs. No edema or JVD. Chest is clear; no wheezes or rales. 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 I believe this is not a new problem and just noticed bypatient and a benign change. Patient will discuss with Dr Jacobson who knows her well. 796.2 ELEV BL PRES W/O HYPERTN Plan: Repeated elevation noted. She will stop her NAPROSYN bid and continue to recheck over the next2-3 weeks. Recheck back with log of BP readings. H 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 documented in this encounter Nursing Notes 11/14/2006 12:00 PM CST >> FRANCIS PARSON 11/14/2006 12:06 pm Pt is in for medication recheck. And recheck lump in neck. documented in this encounter Plan of Treatment Not on filedocumented as of this encounter Procedures Procedure Name Priority Date/Time Associated Diagnosis Comme nts ORTHOPEDICS ADULT REFERRAL Routine 12/19/2006 Acq Deformity Nec documented in this encounter Results CONSULT TO ORTHOPEDICS (12/19/2006) Narrative This result has an attachment that is no t available. Jacquie Schmitt MD REFERRAL documented in this encounter Visit Diagnoses Diagnosis Acquired musculoskeletal deformity of ot her specified site - Primary Elevated blood pressure reading without diagnosis of hypertension documented in this encounter Care Teams Senior Loan Officer Relationship Specialty Start Date End Date Jacquie Schmitt MD PCP - General 11/24/99 02/11/14 [address] , [facility] [address] [place] [address] documented as of this encounter
--- OUTSIDE RECORDS SUMMARY | 2022-08-18 09:34 | XMS_ITS | Encounter Summary ---
:1945 Author Organization [place] Address [address] [place] [address] Care Team Providers Name Role Phone Jacquie Schmitt MD Primary Care Provider Reason for Referral - Closed Specialty Diagnoses / Procedures Referred By Contact Refer red To Contact Physical Therapy Diagnoses Sciatica Jacquie Schmitt MD [address] [place] [address] Referral ID Status Reason Start Date Expiration Date Visits Requ ested Visits Authorized [id number] Closed 05/30/2006 11/06/2011 1 1 Reason for Visit Reason Comments Musculoskeletal Problem Encounter Details Date Type Department Care Team Description 05/30/2006 Office Visit [facility] Jacquie Schmitt SCIATI CA (Primary Dx) Physicians [address] [place] [address] [address] [phone] Social History Tobacco Use Types Packs/Day Years Used Date Smoking Tobacco: Former Cigarettes Quit : 11/07/1995 Alcohol Use Standard Drinks/Week Comments No 0 (1 standard drink = 0.6 oz pure alcoho l) Sex Assigned at Date Recorded Female 10/17/2018 7:14 PM ADDICTIONS 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 documented as of this encounter Last Filed Vital Signs Vital Sign Reading Time Taken Comments Blood Pressure 120/80 05/30/2006 11:00 AM CDT Pulse 80 05/30/2006 11:00 AM CDT Temperature 36.9 ??C (98.5 ??F) 05/30/2006 11:00 AM CDT Respiratory Rate 12 05/30/2006 11:00 AM CDT Oxygen Saturation - - Inhaled Oxygen Concentration - - Weight 90.7 kg (200 lb) 05/30/2006 11:00 AM CDT Height 170.2 cm (5' 7) 05/30/2006 11:00 AM CDT Body Mass Index 31.32 05/30/2006 11:00 AM CDT documented in this encounter Progress Notes Jacquie Schmitt - 05/30/2006 1:16 PM CDT SUBJECTIVE: The patients complains of right sided buttock and low back pain for 2 months comes and goes worse with prolonged sitting, positional with bending or lifting, with radiation down the legs. Precipitatingfactors: sitting. Prior history of back problems: last visit the pain went away with Advil, stretches and ice. There is no numbness/tingling in the right or left leg. OBJECTIVE: Appears well, in no apparent distress. Vital signs are normal. Lumbo-sacral spine area reveals no local tenderness or mass. Painful and reduced LS ROM noted. Tender over the mod buttock area on the right (piriformis) Straight leg raise is negative at 90 degrees on right and left. DTR's, motor strengthand sensation normal, including heel and toe gait. Peripheral pulses are palpable. ASSESSMENT: Lumbar strain/ piriformis PLAN: Discussed treatment plan of prn NSAID's and back care exercise program, given in writing. MEDROL dose pack and a referral to Physical therapy. Intermittent rest, proper lifting with avoidance of heavy lifting and intermittent use of heat discussed - avoid sleeping on a heating pad. Consider X-ray studies if not improving. Call or return to clinic prn if these symptoms worsen or fail to improve as anticipated. documented in this encounter Nursing Notes 05/30/2006 11:00 AM CDT >> EVE SIMON 05/30/2006 11:32 am Pt is here for rt hip pain that sometimes goes down into her leg. She states that she has more pain when sitting. She did talk to you about this at her last appointment and has been doing the exersices. Questioned patient about current smoking habits. Pt. quit smoking some time ago. CLASSIFICATION OF OVERWEIGHT AND OBESITY BY BMI Obesity Class BMI(kg/m2) Underweight < 18.5 Normal 18.5-24.9 Overweight 25.0-29.9 OBESITY I 30.0-34.9 II 35.0-39.9 EXTREME OBESITY III >40 Patient's BMI Body mass index is 31.32 kg/(m^2). Http://hin.nhlbi.nih.gov/menuplanner/menu.cgi documented in this encounter Plan of Treatment Not on filedocumented as of this encounter Visit Diagnoses Diagnosis Sciatica - Primary documented in this encounter Care Teams Clam Shucker Relationship Specialty Start Date End Date Jacquie Schmitt MD PCP - General 11/24/99 4 [address] , [facility] [address] [place] [address] documented as of this encounter
--- OUTSIDE RECORDS SUMMARY | 2022-08-18 09:34 | XMS_ITS | Encounter Summary ---
:1945 Author Organization [facility] Address [address] [place] [address]. [place] [address] Care Team Providers Name Role Phone Jacquie Schmitt MD Primary Care Provider Encounter Details Date Type Department Care Team Description 06/14/2006 Therapy Visit [place] [facility] Francisco Ferrer (Primary Medicine - [place] [facility], PT Dx) Physical Therapy 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 documented in this encounter Plan of Treatment Not on filedocumented as of this encounter Procedures Procedure Name Priority Date/Time Associated Diagnosis Comme nts [facility] NEUROMUSCULAR Routine 06/14/2006 7:44 PM iamSCIATICA RE-EDUCATION CDT [facility] THERAPEUTIC EXERCISES Routine 06/14/2006 7:44 PM iamSCIATI CA CDT documented in this encounter Visit Diagnoses Diagnosis iamSCIATICA - Primary Sciatica documented in this encounter Care Teams Booth Operator Relationship Specialty Start Date End Date Jacquie Schmitt MD PCP - General 11/24/99 02/11/14 [address] [facility] 100 [place] [address] documented as of this encounter
--- OUTSIDE RECORDS SUMMARY | 2022-08-18 09:35 | XMS_ITS | Encounter Summary ---
:1945 Author Organization [place] Address [address] [place] [address] Care Team Providers Name Role Phone Jacquie Schmitt MD Primary Care Provider Reason for Visit Reason Comments Pre-Op Exam Encounter Details Date Type Department Care Team Description 03/01/2006 Office Visit [facility] Jacquie Schmitt, OSTEOA RTHROS NOS- UNSPEC (Primary Dx); Physicians MD PREOP EXAM OTHER SPECIFIED; [address], LEG VARICOSITY W INFLAM; [address] S[place] [id number] Social History Tobacco Use Types Packs/Day Years Used Date Smoking Tobacco: Former Cigarettes Quit : 11/07/1995 Alcohol Use Standard Drinks/Week Comments No 0 (1 standard drink = 0.6 oz pure alcoho l) Sex Assigned at Date Recorded Female 10/17/2018 7:14 PM DATA LEAD documented as of this encounter Last Filed Vital Signs Vital Sign Reading Time Taken Comments Blood Pressure 120/80 03/01/2006 1:50 PM CDT Pulse 80 03/01/2006 1:50 PM CDT Temperature 36.8 ??C (98.3 ??F) 03/01/2006 1:50 PM CDT Respiratory Rate 12 03/01/2006 1:50 PM CDT Oxygen Saturation - - Inhaled Oxygen Concentration - - Weight 90.3 kg (199 lb) 03/01/2006 1:50 PM CDT Height 170.2 cm (5' 7) 03/01/2006 1:50 PM CDT Body Mass Index 31.17 03/01/2006 1:50 PM CDT documented in this encounter Progress Notes Jacquie Schmitt - 03/01/2006 2:17 PM CDT Pre Op Exam: March 01, [address] [place] [address] Shahnaz Phelps is an 60 year old female here for preop physical. BP 120/80 Pulse 80 Temp (Src) 98.3 (Oral) Resp 12 Ht 5' 7 (1.70m) Wt 199 lbs (90.3kg) LMP Postmenopausal This is at the request of and is being sent to him and to anesthesia. Smoker:No Alcohol/wk: occasional PRESENT HISTORY: Reason for admission: Right leg varicose vein removal Onset of Illness: years Type of Surgery Anticipated: vein removal with stripping Type of Anesthesia Anticipated: General Medications: Current Outpatient Rx Name Route Sig Dispense Refill ??? FELDENE 10 MG OR CAPS Oral 1 CAPSULE DAILY unsure of mg 0 0 ??? GLUCOSAMINE CHONDROITIN OR TABS Oral 1 daily, Dr love 0 0 ??? RETIN-A MICRO 0.04 % EX GEL Apply externally at bedtime, Dr Hopper 0 ??? FINACEA 15 % EX GEL Apply externally apply in the am, Dr Hopper 0 0 ??? CALCIUM 600 + D 600-200 MG-UNIT OR TABS 0 0 Any Aspirin within 10 days? No Family History: Family History Problem Relation ??? Cancer Brother colon No family history of malignant hyperthermia. No family history of bleeding disorder. No history of Sleep Apnea Past Surgical History: Past Surgical History Procedure Date ? ? Colonoscopy & polypectomy ? ? Colonoscopy & polypectomy ? ? Colonoscopy & polypectomy 2000 ? ? Colonoscopy & polypectomy 2002 Dr Mesa ??? Remv cataract extracap,insert lens 03/10/04 right ??? Remv cataract extracap,insert lens 04/[address] Keith ??? 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 Knee scope,med/lat menisectomy 04/2005 Dr Arevalo Allergies Allergen Reactions ??? Imidazole Antifungals hives ??? Penicillins hives Transfusion reactions: No prior transfusions Bleeding tendencies:No bleeding problems noted REVIEW OF SYSTEMS: Cardiovascular: NORMAL Respiratory: NORMAL Gastrointestinal: NORMAL Genitourinary: NORMAL PHYSICAL EXAM: General Appearance: healthy, alert, no distress, cooperative and smiling Head: Normocephalic. No masses, lesions, tenderness or abnormalities Eyes: normal Ears: negative Nose: Nares normal Mouth: Oropharynx normal Neck: Neck supple. No adenopathy. Thyroid symmetric, normal size,, Carotids without bruits. Lymphatics: Cervical and inguinal nodes normal for age. Chest: Clear Breast: Not done. Heart:regular rate and rhythm and no murmurs, clicks, or gallops Lungs: negative, Percussion normal. Good diaphragmatic excursion. Lungs clear Abdomen: Abdomen soft, non-tender. BS normal. No masses, organomegaly, positive findings: obese Genitals: Deferred Extremities: Extremities normal. No deformities, edema, or skin discoloration., positive findings: bilateral lower leg varicosity Musculoskeletal: negative Skin: Skin color, texture, turgor normal. No rashes or lesions., positives: acne/scar on the face Neurological: Gait normal. Reflexes normal and symmetric. Sensation grossly WNL. Diabetic Instructions Given for Pre-Op Insulin: NOT APPLICABLE Lab: H.1 Impression: V72.83 PREOP EXAM OTHER SPECIFIED 454.1 LEG VARICOSITY W NICO SOL Signature: Lenin Schmitt M.D. Copies are given to the patient and copies faxed to the hospital. Overdue for mammogram. Will schedule and also recheck with pap/pelvic and breast check. documented in this encounter Nursing Notes 03/01/2006 1:50 PM CDT >> EVE SIMON 03/01/2006 2:02 pm Pt. is here for a Pre-Op physical. Procedure - Veins Stripped Dr. Stephen Wise Date - 03/07/06 Time - 6a.m. Place - [facility] Questioned patient about current smoking habits. Pt. quit smoking some time ago. CLASSIFICATION OF OVERWEIGHT AND OBESITY BY BMI Obesity Class BMI(kg/m2) Underweight < 18.5 Normal 18.5-24.9 Overweight 25.0-29.9 OBESITY I 30.0-34.9 II 35.0-39.9 EXTREME OBESITY III >40 Patient's BMI Body mass index is 31.16 kg/(m^2). Http://hin.nhlbi.nih.gov/menuplanner/menu.cgi documented in this encounter Plan of Treatment Not on filedocumented as of this encounter Procedures Procedure Name Priority Date/Time Associated Comments Diagnosis ZZC Routine 03/01/2006 2:27 PM Preop Exam Other ELECTROCARDIOGRAM, CDT Specified COMP W/READ Leg Varicosity W Inflam ZZCL AFF HEMOGLOBIN Routine 03/01/2006 2:26 PM Preop Exam Othe r Results for this CDT Specified procedure are in Leg Varicosity W the results Inflam section. HC VENOUS COLLECTION Routine 03/01/2006 2:16 PM Preop Exam Oth er CDT Specified Leg Varicosity W Inflam documented in this encounter Results ELECTROCARDIOGRAM, COMP W/READ (03/01/2006 2:27 PM CDT) Narrative This result has an attachment that is no t available. Jacquie Schmitt MD EKG TECHNICAL Performing Organization Address City/State/ZIP Code Phon e Number [facility] HEMOGLOBIN (03/01/2006 2:26 PM CDT) P athologist Signature Hemoglobin 14.1 12 - 16 [facility] GM/DL Jacquie Schmitt MD LABORATORY Performing Organization Address City/State/ZIP Code Phon e Number [facility] documented in this encounter Visit Diagnoses Diagnosis Osteoarthrosis, unspecified whether gene ralized or localized, unspecified site - Primary Other specified pre-operative examinatio n Varicose veins of lower extremities with inflammation Breast screening, unspecified documented in this encounter Care Teams Social Work Professor Relationship Specialty Start Date End Date Jacquie Schmitt MD PCP - General 11/24/99 02/11/[address], [facility] 100 [place] [address] documented as of this encounter
--- OUTSIDE RECORDS SUMMARY | 2022-08-18 09:35 | XMS_ITS | Encounter Summary ---
:1945 Author Organization [facility] Address [address] [place] [address] Care Team Providers Name Role Phone Jacquie Schmitt MD Primary Care Provider Reason for Referral - Closed Specialty Diagnoses / Procedures Referred By Contact Refer red To Contact Surgery Diagnoses Varicose veins of lower extremities with inflammation Jacquie Schmitt MD [address] [place] [address] Referral ID Status Reason Start Date Expiration Date Visits Requ ested Visits Authorized [id number] Closed 12/01/2005 11/06/2011 1 1 WORKER Reason for Visit Reason Comments Knee Pain Right Encounter Details Date Type Department Care Team Description 12/01/2005 Office Visit [facility] Jacquie Schmitt, LEG VA RICOSITY W INFLAM (Primary Dx); Physicians OSTEOARTHROS NOS-UNSPEC [address] [address] , 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 documented as of this encounter Last Filed Vital Signs Vital Sign Reading Time Taken Comments Blood Pressure 160/88 12/01/2005 1:15 PM DRUM WORKER Pulse 84 12/01/2005 1:15 PM DRUM WORKER Temperature 36.7 ??C (98 ??F) 12/01/2005 1:15 PM DRUM WORKER Respiratory Rate 12 12/01/2005 1:15 PM DRUM WORKER Oxygen Saturation - - Inhaled Oxygen Concentration - - Weight 90.7 kg (200 lb) 12/01/2005 1:15 PM DRUM WORKER Height 170.8 cm (5' 7.25) 12/01/2005 1:15 PM DRUM WORKER Body Mass Index 31.09 12/01/2005 1:15 PM DRUM WORKER documented in this encounter Progress Notes Jacquie Schmitt - 12/01/2005 2:24 PM CST SUBJECTIVE: Left posterior knee pain followed by anterior medial proximal tibia pain for one week. 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 No injury. Went to Dr Jacobson with her right knee and diagnosis of arthritis after medial meniscal tear repair.She is taking an antiinflammatory medication bid and GLUCOSAMINE CHONDROITIN. Not covering her aching pain. OBJECTIVE: Alert, oriented, well hydrated. Skin turgor normal. The abdomen is soft without tenderness, guarding, mass or organomegaly. Bowel sounds are normal. No CVA tenderness or inguinal adenopathy noted. The lower extremities are normal and reveal no sign of DVT. Calves and thighs are soft and non tender, color is normal, no swelling or redness. Karine's sign is negative. Pedal pulses are normal. Knee is normal to inspection and palpation without evidence of erythema, warmth, or discoloration. ROM is full. No ligamentous instability. Patellar apprehension negative. Tender varicosity noted on the anterior, medial and posterior leg around the knee. ASSESSMENT: 454.1 LEG VARICOSITY W INFLAM (primary encounter diagnosis) Plan: CONSULT TO GENERAL SURGERY Add Tylenol and support hose daily. Consult for removal or care. 715.90 OSTEOARTHROS NOS-UNSPEC Plan: per Dr Jacobson. WORKER documented in this encounter Nursing Notes 12/01/2005 1:15 PM CST >> JACKIE CARRANZA 12/01/2005 1:20 pm Patient is here for c/o right knee pain. Pt's BMI is 31.09 Questioned patient about current smoking habits. Pt. quit smoking some time ago. documented in this encounter Plan of Treatment Not on filedocumented as of this encounter Procedures Procedure Name Priority Date/Time Associated Diagnosis Comme nts GENERAL SURG ADULT REFERRAL Routine 01/04/2006 Leg Varicosit y W Inflam documented in this encounter Results CONSULT TO GENERAL SURGERY (01/04/2006) Narrative This result has an attachment that is no t available. Jacquie Schmitt MD REFERRAL documented in this encounter Visit Diagnoses Diagnosis Varicose veins of lower extremities with inflammation - Primary Osteoarthrosis, unspecified whether gene ralized or localized, unspecified site documented in this encounter Care Teams Rpg Programmer Relationship Specialty Start Date End Date Jacquie Schmitt MD PCP - General 11/24/99 02/11/14 [address] , [facility] [place] 100 [place] [address] documented as of this encounter
--- OUTSIDE RECORDS SUMMARY | 2022-08-18 09:35 | XMS_ITS | Encounter Summary ---
:1945 Author Organization [facility] Address [address] [place] [address] Care Team Providers Name Role Phone Jacquie Schmitt MD Primary Care Provider Reason for Visit Reason Onset Date Comments Refill Request 05/08/2005 Encounter Details Date Type Department Care Team Description 05/08/2005 Refill [facility] ysicians Jacquie Schmitt MD Refill Request [address] [facility] [address] [place] [address] [place], [place] [phone] (Wo rk) Social History Tobacco Use Types Packs/Day Years Used Date Smoking Tobacco: Former Cigarettes Quit : 11/07/1995 Alcohol Use Standard Drinks/Week Comments No 0 (1 standard drink = 0.6 oz pure alcoho l) Sex Assigned at Date Recorded Female 10/17/2018 7:14 PM HOMEBIRTH MIDWIFE documented as of this encounter Miscellaneous Notes Telephone Encounter - Kathryn Pichardo - 05/08/2005 10:58 AM CDT Patient has been notified. Telephone Encounter - Jacquie Schmitt - 05/08/2005 10:15 AM CDT refilled faxed. Notify patient. Telephone Encounter - Kathryn Pichardo - 05/08/2005 9:56 AM CDT Patient called [facility] and stated that she is in pain and needs more medication. documented in this encounter Plan of Treatment Not on filedocumented as of this encounter Visit Diagnoses Diagnosis Calculus of kidney - Primary documented in this encounter Care Teams Rn Tele Relationship Specialty Start Date End Date Jacquie Schmitt MD PCP - General 11/24/99 02/11/14 [address] [address] documented as of this encounter
--- OUTSIDE RECORDS SUMMARY | 2022-08-18 09:35 | XMS_ITS | Encounter Summary ---
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 documented in this encounter Results MAMMOGRAM, ONE BREAST (04/06/2005 9:30 AM CDT) Anatomical Region Laterality Modality Other Specimen (Source) Anatomical Collection Method Collection Time Re ceived Time Location / / Volume Laterality 04/06/2005 9:30 AM CDT Impressions 04/07/2005 9:07 AM CDT DIAGNOSTIC MAMMOGRAM LEFT BREAST ?? Breast Symptoms: ??None. ? Previous Mammography: ??Comparison with [facility] 03/29/05 - 5/21/01. ? Breast Parenchyma: ??Fatty/mild densitie s. ? Findings: ??The patient is recalled from her screening mammogram on March 29 for additional assessment of a sl owing evolving cluster of microcalcifications in the deep 2 o'cloc k area of the left breast. ?? Magnification images are obtained today in the lateral medial CC projections. ??Two larger coarser calcif ications have been present longest and probably are benign. ??Small er and somewhat ill-defined calcifications in the same area are less determinate. ??Overall, I think this is a very low suspicion focus but given the slow progressive change I would recommend hilario reotactic sampling of this area to exclude a small focus of maligna ncy. ??This was all discussed with the patient at the time of the exam ination. ??She is currently expecting knee surgery on and w ill postpone scheduling this biopsy for a couple of weeks. ? IMAGING IMPRESSION: ??ACR BIRADS CATEGOR Y 4A, SUSPICIOUS ABNORMALITY. ?? LOW SUSPICION OF MALIGNANCY. Jacquie Schmitt MD SPECIAL IMAGING STUDIES documented in this encounter Visit Diagnoses Not on filedocumented in this encounter Care Teams Grades 1 6 Tutor Relationship Specialty Start Date End Date Jacquie Schmitt MD PCP - General 11/24/99 4 [address] [facility] 100 [place] [address] documented as of this encounter
--- OUTSIDE RECORDS SUMMARY | 2022-08-18 09:35 | XMS_ITS | Encounter Summary ---
:1945 Author Organization [facility] Address [address] [place] [address] Care Team Providers Name Role Phone Jacquie Schmitt MD Primary Care Provider Reason for Visit Reason Comments Abdominal Pain Encounter Details Date Type Department Care Team Description 05/06/2005 Office Visit [facility] Jacquie Schmitt CALCUL OF KIDNEY Physicians (Primary Dx) [address] [place] [address] [address] [phone] Social History Tobacco Use Types Packs/Day Years Used Date Smoking Tobacco: Former Cigarettes Quit : 11/07/1995 Alcohol Use Standard Drinks/Week Comments No 0 (1 standard drink = 0.6 oz pure alcoho l) Sex Assigned at Date Recorded Female 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 encounter Last Filed Vital Signs Vital Sign Reading Time Taken Comments Blood Pressure 180/88 05/06/2005 5:00 PM CDT Pulse 89 05/06/2005 5:00 PM CDT Temperature 36.6 ??C (97.9 ??F) 05/06/2005 5:00 PM CDT Respiratory Rate 12 05/06/2005 5:00 PM CDT Oxygen Saturation - - Inhaled Oxygen Concentration - - Weight 89.4 kg (197 lb) 05/06/2005 5:00 PM CDT Height 170.2 cm (5' 7) 05/06/2005 5:00 PM CDT Body Mass Index 30.85 05/06/2005 5:00 PM CDT documented in this encounter Progress Notes Jacquie Schmitt - 05/06/2005 5:09 PM CDT SUBJECTIVE: Left sided CVA and lower left quadrant pain coming in a colicky fashion lasting 2-4 hours and then gone. See last visit with Dr Licona. Today had 3 hours of pain 2/10 which resolved spontaneously. OBJECTIVE: Alert, oriented, well hydrated. Skin turgor normal. BP noted. External ears and canals clear bilaterally. TM's normal bilaterally. Nose normal without lesions or discharge. Oropharynx normal. Neck supple without palpable adenopathy. The abdomen is soft without tenderness, guarding, mass or organomegaly. Bowel sounds are normal. No CVA tenderness or inguinal adenopathy noted. UA: positive blood ASSESSMENT: 592.0 CALCULUS OF KIDNEY (primary encounter diagnosis) Plan: URINALYSIS, ROUTINE, TYLENOL/CODEINE #3 300-30 MG OR TABS Reviewed probable cause. Treatment plan to use orthopedic pain Meds prn, drink water and screen herurine for stone. Recheck prn this weekend. Otherwise she will bring in a specimen if able to catch it. documented in this encounter Nursing Notes 05/06/2005 5:00 PM CDT >> RENU TOMAS 05/06/2005 4:50 pm Patient is here for LRQ pain that she has had for the past 4 days. She states that it radiates to the right side of her back. Patient was seen for this by [facility] on 05/05/2005 but is not any better. She states that when she gets that pain she gets warm and does not feel well. CLASSIFICATION OF OVERWEIGHT AND OBESITY BY BMI Obesity Class BMI(kg/m2) Underweight < 18.5 Normal 18.5-24.9 Overweight 25.0-29.9 OBESITY I 30.0-34.9 II 35.0-39.9 EXTREME OBESITY III >40 Patient's 30.85 http://hin.nhlbi.nih.gov/menuplanner/menu.cgi documented in this encounter Plan of Treatment Not on filedocumented as of this encounter Procedures Procedure Name Priority Date/Time Associated Diagnosis Comme nts CL AFF URINALYSIS, Routine 05/06/2005 5:03 PM Calculus Of Kidn ey Results for this ROUTINE CDT procedure are i n the results section. documented in this encounter Results URINALYSIS, ROUTINE (05/06/2005 5:03 PM CDT) [facility] Method Time Signature Color Urine lt yellow [facility] Appearance Urine hazy [facility] Glucose Urine neg mg/dL [facility] Bilirubin Urine neg [facility] Ketones Urine neg mg/dL [facility] Specific [place] 1.005 [facility] Blood Urine mod [facility] pH Arterial 7.0 5.0 - 7.0 [facility] Albumin Urine neg neg - neg [facility] mg/dL Urobilinogen 0.2 EU/dL [facility] Urine Nitrite Urine neg [facility] Leukocyte neg neg - neg [facility] Esterase Wbc, Urine Micro 1-3 neg - 2 [facility] RBC Micro Urine 3-5 neg - 2 [facility] EP/HPF occ [facility] Bacteria Urine few neg - neg [facility] Casts/LPF 0 [facility] Miscellaneous 0 [facility] Jacquie Schmitt MD LABORATORY Performing Organization Address City/State/ZIP Code Phon e Number [facility] documented in this encounter Visit Diagnoses Diagnosis Calculus of kidney - Primary documented in this encounter Care Teams Rolloff Driver Relationship Specialty Start Date End Date Jacquie Schmitt MD PCP - General 11/24/99 02/11/[address], [place] 100 [place] [address] documented as of this encounter
--- OUTSIDE RECORDS SUMMARY | 2022-08-18 09:35 | XMS_ITS | Encounter Summary ---
:1945 Author Organization [facility] Address [address] [place] [address] Care Team Providers Name Role Phone Jacquie Schmitt MD Primary Care Provider Encounter Details Date Type Department Care Team Description 04/12/2006 Results Only [facility] Jacquie Huitron MD Hospital Results [address], [address] [place], [place] [address] (Wo rk) Social History Tobacco Use Types Packs/Day Years Used Date Smoking Tobacco: Former Cigarettes Quit : 11/07/1995 Alcohol Use Standard Drinks/Week Comments No 0 (1 standard drink = 0.6 oz pure alcoho l) Sex Assigned at Date Recorded Female 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 documented in this encounter Results MAMMOGRAM, BOTH BREASTS (DIAG) (04/12/2006 10:38 AM CDT) Anatomical Region Laterality Modality Other Specimen (Source) Anatomical Collection Method Collection Time Re ceived Time Location / / Volume Laterality 04/12/2006 10:38 AM CDT Impressions 04/14/2006 11:27 AM CDT BILATERAL DIAGNOSTIC MAMMOGRAM ?? Indication for examination: ??Stereotact ic biopsy of microcalcifications superiorly left [place] st one year ago, with fibroadenomatous changes and sclerosing adenosis demonstrated. ?? Findings: ??Clip from previous stereotac tic biopsy demonstrated at 12 o'clock position, with microcalcificatio n grouping at this site nearly completely removed on biopsy. ??T wo other loosely organized calcifications are demonstrated lateral anterior to the clip (also slightly caudad). ??No suspicious masses or tumor calcifications are demonstrated. ??Heterogeneously dense fi broglandular tissues. ??Routine screening mammography is suggested in on e year. ?? IMAGING IMPRESSION: ??ACR BI-RADS CATEGO RY 2, BENIGN FINDINGS. ?? Jacquie Schmitt MD SPECIAL IMAGING STUDIES documented in this encounter Visit Diagnoses Not on filedocumented in this encounter Care Teams Jitney Driver Relationship Specialty Start Date End Date Jacquie Schmitt MD PCP - General 11/24/99 4 [address] [facility] [address] [place] [address] documented as of this encounter
--- OUTSIDE RECORDS SUMMARY | 2022-08-18 09:35 | XMS_ITS | Encounter Summary ---
:1945 Author Organization [facility] Address [address] [place] [address] Care Team Providers Name Role Phone Jacquie Schmitt MD Primary Care Provider Reason for Visit Reason Onset Date Comments Kidney Problem 05/14/2005 Encounter Details Date Type Department Care Team Description 05/14/2005 Telephone [facility] Jacquie Schmitt MD Kidney Problem Physicians [address] , [facility] [address] [address] [place] [address] [place], [place] [phone] Social History Tobacco Use Types Packs/Day Years Used Date Smoking Tobacco: Former Cigarettes Quit : 11/07/1995 Alcohol Use Standard Drinks/Week Comments No 0 (1 standard drink = 0.6 oz pure alcoho l) Sex Assigned at Date Recorded Female 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 Pt stated that pt was wondering if stone had passed if she did not have any pain.Pt has not had any pain since Tuesday, and stopped using the strainer to see if she passed a stone. Pt was wondering if stone disolved, I talked to Dr. Licona about this, he said that stone ifsmall enough can breakdown while passing, so she may not have had any pain. CSS stated if pt starts to have pain again to use the strainer again and call back CSS. I also stated that if pain is real bad that Pt should make an appt, to be see. EA documented in this encounter Plan of Treatment Not on filedocumented as of this encounter Visit Diagnoses Not on filedocumented in this encounter Care Teams Autism Motor Specialist Relationship Specialty Start Date End Date Jacquie Schmitt MD PCP - General 11/24/99 4 [address] [facility] [address] [place] [address] documented as of this encounter
--- OUTSIDE RECORDS SUMMARY | 2022-08-18 09:35 | XMS_ITS | Encounter Summary ---
:1945 Author Organization [facility] Address [address] [place] [address] Care Team Providers Name Role Phone Bharti Guthrie MD Primary Care Provider Encounter Details Date Type Department Care Team Description 04/27/2005 Historic Results [facility] Bharti Guthrie MD Physicians [address] [place] [address], [address] [place] [address] [place] [address] [phone] Social History Tobacco Use Types Packs/Day Years Used Date Smoking Tobacco: Former Cigarettes Quit : 11/07/1995 Alcohol Use Standard Drinks/Week Comments No 0 (1 standard drink = 0.6 oz pure alcoho l) Sex Assigned at Date Recorded Female 10/17/2018 7:14 PM [employer]IVER [employer] documented as of this encounter Plan of Treatment Not on filedocumented as of this encounter Procedures Procedure Name Priority Date/Time Associated Diagnosis Comme nts HISTOPATHOLOGY Routine 04/27/2005 12:00 AM Result s for this CDT procedure are i n the results section . documented in this encounter Results Histopathology (04/27/2005 12:00 AM CDT) Component Value Ref Test Analysis Performed At [facility] Range Method Time Signature Copath CASE: [id number] ^ COPATH Report Patient Name: SHAHNAZ GLASGOW MR#: [id number] Specimen #: [id number] Collected: 04/27/2005 Received: 04/27/2005 Reported: 04/28/2005 09:56 Ordering Phy(s): BHARTI GUTHRIE SPECIMEN(S): Breast core needle biopsy,left, 11:00 FINAL DIAGNOSIS: Stereo guided vacuum assisted core biopsy, calcified lesion of left breast at 11:00 position showin. Focal areas of fibroadenomatous change with microcalcific ations. 2. Sclerosing adenosis. 3. No evidence of malignancy. Electronically signed out by: Glenn Hand M.D. CLINICAL HISTORY: Fibrocystic change versus DCIS. GROSS: The specimen is labeled stereo guided vacuum-assisted core biopsy with calcifications left breast at 11:00 on the requisition slip and labeled left breast on the container. ??The specimen consists of m adamaris similar-appearing, yellow-pink, fibrofatty breast tissue fra gments measuring 3.5 x 2.5 x 0.4 cm in aggregate. ??The specimens a re entirely submitted. ??SI ??TRS/jessie MICROSCOPIC: Multiple clusters of sclerosing adenosis are seen in the angel ast core biopsy fragments. ??The areas of sclerosing adenosis are acc ompanied by prominent stromal fibrosis with the intervening areas showin g unremarkable fatty tissue. ??Two of the more prominent scler otic areas have a pattern resembling fibroadenomatous change. ??These a reas show a few prominent microcalcifications. No in situ carcinoma or o ther malignant changes are seen. DGB/ln 04/28/05 Specimen (Source) Anatomical Collection Method Collection Time Re ceived Time Location / / Volume Laterality 04/27/2005 04/28/2005 9:56 AM CDT Bharti Guthrie MD LAB - COP[facility] SPECIAL DIAG OR DERABLES Performing Organization Address City/State/ZIP Code Phon e Number COPATH documented in this encounter Visit Diagnoses Not on filedocumented in this encounter Care Teams Block Feeder Relationship Specialty Start Date End Date Bharti Guthrie MD PCP - General 11/24/99 02/11/14 [address] , [facility] [address] [place] [address] documented as of this encounter
--- OUTSIDE RECORDS SUMMARY | 2022-08-18 09:35 | XMS_ITS | Encounter Summary ---
:1945 Author Organization [facility] Address [address] [place] [address] Care Team Providers Name Role Phone Jacquie Schmitt MD Primary Care Provider Reason for Visit Reason Comments Finger Encounter Details Date Type Department Care Team Description 01/08/2006 Office Visit [facility] Mary Granados M, PAIN I N LIMB (Primary Physicians Dx) [address] 100 [facility] [address] [place] [phone] Social History Tobacco Use Types Packs/Day Years Used Date Smoking Tobacco: Former Cigarettes Quit : 11/07/1995 Alcohol Use Standard Drinks/Week Comments No 0 (1 standard drink = 0.6 oz pure alcoho l) Sex Assigned at Date Recorded Female 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 documented as of this encounter Last Filed Vital Signs Vital Sign Reading Time Taken Comments Blood Pressure 140/80 01/08/2006 10:45 AM SIGHTER Pulse 80 01/08/2006 10:45 AM SIGHTER Temperature 36.6 ??C (97.8 ??F) 01/08/2006 10:45 AM SIGHTER Respiratory Rate 12 01/08/2006 10:45 AM SIGHTER Oxygen Saturation - - Inhaled Oxygen Concentration - - Weight 89.8 kg (198 lb) 01/08/2006 10:45 AM SIGHTER Height 170.8 cm (5' 7.25) 01/08/2006 10:45 AM SIGHTER Body Mass Index 30.78 01/08/2006 10:45 AM SIGHTER documented in this encounter Progress Notes Mary Granados MD - 01/08/2006 11:36 AM CST SUBJECTIVE: Pt here with finger infection for 1 month, worsening and n ow pus coming out of left index finger. no nausea or diarrhea. no fever/chills, no joint pains or skin rashes. no chest pian, shortness or breath, or lower extremity edema. OBJECTIVE: Blood pressure 140/80, pulse 80, temperature 97.8, temperature source Oral, resp. rate 12, height 5'7.25 (1.71 m), weight 198 lbs (89.8 kg), last menstrual period Postmenopausal. gen: pt pleasant, nad Finger: Left index finger with paroncyhial purulent material, erythmetous. 729.5 PAIN IN LIMB (primary encounter diagnosis) Note: finger infection, attempted I and D and nothing cam eout today Plan: anbx, pt to monitor for worsening infection, The patient indicates understanding of these issues and agrees with the plan. TER documented in this encounter Nursing Notes 01/08/2006 10:45 AM CST >> DIANN HERMOSILLO 01/08/2006 11:17 am Pt is here for an infected index finger on lt hand. Questioned patient about current smoking habits.Pt. quit smoking some time ago. CLASSIFICATION OF OVERWEIGHT AND OBESITY BY BMI Obesity Class BMI(kg/m2) Underweight < 18.5 Normal 18.5-24.9 Overweight 25.0-29.9 OBESITY I 30.0-34.9 II 35.0-39.9 EXTREME OBESITY III >40 Patient's BMI Body mass index is 30.79 kg/(m^2). Http://hin.nhlbi.nih.gov/menuplanner/menu.cgi documented in this encounter Plan of Treatment Not on filedocumented as of this encounter Visit Diagnoses Diagnosis Pain in limb - Primary documented in this encounter Care Teams Flower Cutter Relationship Specialty Start Date End Date Jacquie Schmitt MD PCP - General 11/24/99 02/11/[address], [address] [place] [address] documented as of this encounter
--- OUTSIDE RECORDS SUMMARY | 2022-08-18 09:35 | XMS_ITS | Encounter Summary ---
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 HC X-RAY SURGICAL Routine 04/27/2005 10:50 Result s for this SPECIMEN AM CDT procedure are i n the results section. C STEREOTACTIC BREAST Routine 04/27/2005 10:50 Re sults for this BIOPSY AM CDT procedure are i n the results section. documented in this encounter Results IMAGE GUIDED PLACEMENT, METALLIC LOCALIZATION CLIP, PERCUT, DURING A BREAST BX (04/27/2005 10:58 AM CDT) Component Value Ref Test Analysis Performed Pathologis t Range Method Time At Signature IMAGECAST RADIOLOGY RESULT STEREOTACTIC-GUIDED VACUUM-ASSISTED CORE BIOPSY LEFT BREAS T; SPECIMEN RESULTS RADIOGRAPH; CLIP PLACEMENT; POST-BIOPSY MAMMOGRAM LEFT BREAS T ?? Indication for procedure: ??Screen-detected small microcalci fication focus upper left breast identified on screening mammogram [facility] dated 03/29/05 and subsequent diagnostic m ammogram this office dated 04/06/05. ??The lesion was situated at 11 o 'clock, 12 cm from nipple, measuring about 7 mm. ?? Procedure: ??The lesion was identified and targeted in a aircraft line assembler niocaudal approach. ??Approximately 4 cc lidocaine were infiltrated fo r local anesthetic and a skin pepe was made, through which 10G [employer] vacuum-assisted needle was placed. ??Digital images showed a ppropriate placement of the needle. ??A series of 12 vacuum-assisted sa mples were obtained. ??Specimen radiograph showed microcalcifications a nticipated as perhaps representing the entire lesion. ??For that reason , I deployed a [employer] titanium cylinder marker. ??Post-biopsy ojhan mogram shows THE MARKER IS SITUATED 5 MM POSTERIOR TO THE FEW REMAI ARIN MICROCALCIFICATIONS. ??The patient tolerated the biopsy with out difficulty, and there was no complication. ? Addendum Begins ADDENDUM TO THE STEREOTACTIC BIOPSY: ??Pathology diagnosis i s benign. ?? Tissue consists of fibroadenomatous change and sclerosing ad enosis. ?? The microcalcifications are associated with the fibroadenoma tous change. ??Recommend six-month follow-up mammogram to reasses s the area for stability. ? RAC:cj ? Addendum Ends Specimen (Source) Anatomical Collection Method Collection Time Re ceived Time Location / / Volume Laterality 04/27/2005 10:58 AM CDT Jacquie Schmitt MD PROCEDURES Performing Organization Address City/State/ZIP Code Phon e Number RADIOLOGY RESULTS X-RAY EXAM, BREAST SPECIMEN (04/27/2005 10:50 AM CDT) Anatomical Region Laterality Modality Other Specimen (Source) Anatomical Collection Method Collection Time Re ceived Time Location / / Volume Laterality 04/27/2005 10:50 AM CDT Impressions 04/29/2005 4:12 PM CDT STEREOTACTIC-GUIDED VACUUM-ASSISTED CORE BIOPSY LEFT BREAST; SPECIMEN RADIOGRAPH; CLIP PLACEMENT; POST-BIOPSY MAMMOGRAM LEFT BREAST ?? Indication for procedure: ??Screen-detec mae small microcalcification focus upper left breast identified on sc reening mammogram [facility] [place] dated 03/29/05 and sub sequent diagnostic mammogram this office dated 04/06/05. ??The lesion was situated at 11 o'clock, 12 cm from nipple, measuring about 7 mm. ?? Procedure: ??The lesion was identified a nd targeted in a craniocaudal approach. ??Approximately 4 cc lidocaine were infiltrated for local anesthetic and a skin pepe was made, thr ough which 10G [employer] vacuum-assisted needle was placed. ??Dig ital images showed appropriate placement of the needle. ??A series of 1 2 vacuum-assisted samples were obtained. ??Specimen radiograph showed m icrocalcifications anticipated as perhaps representing the entire lesio n. ??For that reason, I deployed a [employer] titanium cylinder marke r. ??Post-biopsy mammogram shows THE MARKER IS SITUATED 5 MM LAMINATOR PREFORMS IOR TO THE FEW REMAINING MICROCALCIFICATIONS. ??The patient donna ated the biopsy without difficulty, and there was no complicatio n. ? Addendum Begins ADDENDUM TO THE STEREOTACTIC BIOPSY: ??P athology diagnosis is benign. ?? Tissue consists of fibroadenomatous ray ge and sclerosing adenosis. ?? The microcalcifications are associated w ith the fibroadenomatous change. ??Recommend six-month follow-up mammogram to reassess the area for stability. ? RAC:cj ? Addendum Ends Jacquie Schmitt MD SPECIAL IMAGING STUDIES STEREOTACTIC BREAST BIOPSY (04/27/2005 10:50 AM CDT) Anatomical Region Laterality Modality Other Specimen (Source) Anatomical Collection Method Collection Time Re ceived Time Location / / Volume Laterality 04/27/2005 10:50 AM CDT Impressions 04/29/2005 4:12 PM CDT STEREOTACTIC-GUIDED VACUUM-ASSISTED CORE BIOPSY LEFT BREAST; SPECIMEN RADIOGRAPH; CLIP PLACEMENT; POST-BIOPSY MAMMOGRAM LEFT BREAST ?? Indication for procedure: ??Screen-detec mae small microcalcification focus upper left [facility] and sub sequent diagnostic mammogram this office dated 04/06/05. ??The lesion was situated at 11 o'clock, 12 cm from nipple, measuring about 7 mm. ?? Procedure: ??The lesion was identified a nd targeted in a craniocaudal approach. ??Approximately 4 cc lidocaine were infiltrated for local anesthetic and a skin pepe was made, thr ough which 10G [employer] vacuum-assisted needle was placed. ??Dig ital images showed appropriate placement of the needle. ??A series of 1 2 vacuum-assisted samples were obtained. ??Specimen radiograph showed m icrocalcifications anticipated as perhaps representing the entire lesio n. ??For that reason, I deployed a [employer] titanium cylinder marke r. ??Post-biopsy mammogram shows THE MARKER IS SITUATED 5 MM LAMINATOR PREFORMS IOR TO THE FEW REMAINING MICROCALCIFICATIONS. ??The patient donna ated the biopsy without difficulty, and there was no complicatio n. ? Addendum Begins ADDENDUM TO THE STEREOTACTIC BIOPSY: ??P athology diagnosis is benign. ?? Tissue consists of fibroadenomatous ray ge and sclerosing adenosis. ?? The microcalcifications are associated w ith the fibroadenomatous change. ??Recommend six-month follow-up mammogram to reassess the area for stability. ? RAC:cj ? Addendum Ends Jacquie Schmitt MD SPECIAL IMAGING STUDIES documented in this encounter Visit Diagnoses Not on filedocumented in this encounter Care Teams Forming Roll Operator Heavy Duty Relationship Specialty Start Date End Date Jacquie Schmitt MD PCP - General 11/24/99 02/11/14 [address] [facility] 100 [place] [address] documented as of this encounter
--- OUTSIDE RECORDS SUMMARY | 2022-08-18 09:35 | XMS_ITS | Encounter Summary ---
:1945 Author Organization [place] Address [address] [place] [address] Care Team Providers Name Role Phone Jacquie Schmitt MD Primary Care Provider Reason for Visit Reason Comments Cutter Head Sharpener Exam Encounter Details Date Type Department Care Team Description 04/05/2006 Office Visit [facility] Jacquie Schmitt ROUTIN E ACCOUNTS PAYABLE ANALYST EXAMINATION (Primary Dx); Physicians SCREENING MAL NEOP-BREAST NOS [address] , [address] [place] [address] [id number] Social History Tobacco Use Types Packs/Day Years Used Date Smoking Tobacco: Former Cigarettes Quit : 11/07/1995 Alcohol Use Standard Drinks/Week Comments No 0 (1 standard drink = 0.6 oz pure alcoho l) Sex Assigned at Date Recorded Female 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 documented as of 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 encounter Last Filed Vital Signs Vital Sign Reading Time Taken Comments Blood Pressure 120/80 04/05/2006 3:00 PM CDT Pulse 80 04/05/2006 3:00 PM CDT Temperature 36.8 ??C (98.2 ??F) 04/05/2006 3:00 PM CDT Respiratory Rate 12 04/05/2006 3:00 PM CDT Oxygen Saturation - - Inhaled Oxygen Concentration - - Weight 90.3 kg (199 lb) 04/05/2006 3:00 PM CDT Height 170.2 cm (5' 7) 04/05/2006 3:00 PM CDT Body Mass Index 31.17 04/05/2006 3:00 PM CDT documented in this encounter Progress Notes Jacquie Schmitt - 04/05/2006 3:20 PM CDT SUBJECTIVE: Shahnaz Phelps is an 60 year old postmenopausal woman who 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 Menopause at age 49. No bleeding, spotting, or discharge noted. Estrogen replacement therapy: none currently, has taken in past SAMANTA exposure: unknown History of abnormal Pap smear: no Family history of uterine or ovarian cancer: yes - mother age 90 Regular self breast exam: Yes History of abnormal mammogram: yes, benign calcification on biopsy Family history of breast cancer: no History of abnormal lipids: no 1 [id number] PMH Past Medical History ACNE NEC POSTMENOPAUSAL HORMONAL REPLACEMENT TX RHINITIS DUE TO POLLEN 1 [id number] PMH 1 38 FAMHX 1 Family History Cancer Brother Comment: colon 1 38 FAMHX 1 1 [id number] PSH Past Surgical History COLONOSCOPY & POLYPECTOMY COLONOSCOPY & POLYPECTOMY COLONOSCOPY & POLYPECTOMY 2000 COLONOSCOPY & POLYPECTOMY 2002 Comment: Dr Bonita AGOSTO CATARACT EXTRACAP,INSERT LENS 03/10/04 Comment: right SURENDRA CATARACT EXTRACAP,INSERT LENS 04/10 Comment: left Dr Keith ANESTH,SKIN SURGERY, BACK 12/21/04 Comment: squamous cell of the back ANESTH,SKIN SURGERY,NECK 12/21/04 Comment: basal cell KNEE SCOPE,MED/LAT MENISECTOMY 04/2005 Comment: Dr Arevalo 1 [id number] PSH 1 104998 MED 1. GLUCOSAMINE CHONDROITIN OR TABS Route: Oral Si daily, Dr Jacobson Dispense: 0 Refill: 0 2. RETIN-A MICRO 0.04 % EX GEL Route: Apply externally Sig:at bedtime, Dr Hopper Dispense: Refill: 0 3. FINACEA 15 % EX GEL Route: Apply externally Sig:apply in the am, Dr Hopper Dispense: 0 Refill: 0 4. CALCIUM 600 + D 600-200 MG-UNIT OR TABS Route: Sig: Dispense: 0 Refill: 01 089697 MED 1 8 ALLERGY 1 -- Imidazole Antifungals -- hives -- Penicillins -- hives 1 8 ALLERGY 1 1 107 SOCX 1 Tobacco Use: Quit Quit date: 11/07/1995 Alcohol Use: No 1 107 SOCX 1 Review Of Systems Ears/Nose/Throat: negative Respiratory: negative Cardiovascular: negative Gastrointestinal: colon polyps Genitourinary: negative Back: Right buttock pain sometimes going down the back of the leg. Worse after sitting. OBJECTIVE: 1 689720 VS BP 120/80 Pulse 80 Temp (Src) 98.2 (Oral) Resp 12 Ht 5' 7 (1.70m) Wt 199 lbs (90.3kg) LMP Postmenopausal1 865575 VS General appearance: healthy, alert, no distress, cooperative and smiling Skin: Skin color, texture, turgor normal. Acne scarring noted Ears: negative Nose/Sinuses: Nares normal. Septum midline. [...] rectovaginal normal., positive findings: vaginal mucosa atrophy Back: Lumbosacral spine area reveals no local tenderness or mass. Painful and reduced LS ROM noted. Straight leg raise is neg at 90 degrees. DTR's, motor strength and sensation normal, including heel and toe gait. Peripheral pulses are palpable. ASSESSMENT: V72.31 ROUTINE ACCOUNTS PAYABLE ANALYST EXAMINATION (primary encounter diagnosis) Plan: THIN LAY PAP,DIAG W/HPV REFLEX, SPECIMEN HANDLING,DR OFF->LAB, HEMOGLOBIN, VENOUS COLLECTION Total calcium intake of 1500 mgm/day, vitamin D 400-800IU/day and a regular weight bearing exerciseprogram for prevention of osteoporosis is recommended treatment at this time. V76.10 SCREENING MAL NEOP-BREAST NOS Plan: [facility] SEND-OUT MAMMOGRAM Follow up with dermatology and COLONOSCOPY exam this year. Rehab stretches/ exercises to begin immediately and given in writing with illustrations. Piriformis discussed. Dx: 1) Pap smear, mammogram 2) Lipids at appropriate intervals PE: Reviewed health maintenance including diet, regular exercise, estrogen replacement and periodic exams. documented in this encounter Nursing Notes 04/05/2006 3:00 PM CDT >> EVE SIMON 04/05/2006 3:00 pm Patient is here for a full physical exam and pap. Questioned patient about current smoking [...] Comme nts ZZCL AFF THIN LAY Routine 04/07/2006 3:00 PM Routine Cutter Head Sharpener Resu lts for this PAP,DIAG W/HPV CDT Examination procedure are in REFLEX the results section. documented in this encounter Results THIN LAY PAP,DIAG W/HPV REFLEX ([id number]) (04/07/2006 3:00 PM CDT) [facility] Method Time Signature Report status FINAL [facility] Clinical SEE NOTE [facility] Comment: PARA 1 1 LMP POSTMENO [facility] Last Pap Diagnosis WNL [facility] Prev Bx Dx NONE GIVEN [facility] Source none given [facility] Statement of Adequacy SEE NOTE [facility] Comment: SATISFACTORY FOR EVALUATION General Categorization NOT AVAIL. [facility] Descriptive Diagnosis SEE NOTE [facility] Comment: Negative for intraepithelial lesion or m alignancy. Atrophic pattern; predominantly parabasa l cells Infection NOT AVAIL. [facility] Comment SEE NOTE [facility] Comment: Based on the cytology result, reflex Hig h/Int Risk HPV DNA Probe testing is not perfor med. Perch Mender: SEE NOTE [facility] [place], [place] Comment: [place], [place](ASCP) Review Perch Mender NOT AVAIL. [facility] [place], [place] Pathologist NOT AVAIL. [facility] [place], [place] See Note SEE NOTE [place], [place] Comment: GYNECOLOGICAL CYTOLOGY IS A SCREENING NV OCEDURE SUBJECT TO BOTH FALSE NEGATIVE AND FALSE POSITIVE RESULTS. IT IS MOST RELIABLE WH EN A SATISFACTORY SAMPLE IS OBTAINED ON A REG ULAR REPETITIVE BASIS. RESULTS MUST BE INTERP RETED IN THE CONTEXT OF HISTORIC AND CURRENT C LINICAL INFORMATION. NO COLLECTION DATE RECEIVED. WE HAVE USE D THE DATE THE SPECIMEN WAS RECEIVED BY [facility] THE COLLECTION DATE. IF IS IS INCORRECT, PLEASE CONTACT CLIENT SERV Glycode. PHONE NUMBER: [phone] Test performed at [facility] [place] [address] [facility] [facility] [facility] [place], [place] ??[address] Director: SAMY ROLDAN MD Specimen (Source) Anatomical Collection Method Collection Time Re ceived Time Location / / Volume Laterality 04/05/2006 10:2 8 PM CDT Narrative [facility] [place], [place] - 3:00 PM CDT Additional Result Information GENERAL CATEGORIZATION: RESULT NOT AV AILABLE INFECTION: RESULT NOT AVAILABLE REVIEW ARCHEOLOGY FACULTY MEMBER: RESULT NOT A VAILABLE PATHOLOGIST: RESULT NOT AVAILABLE Jacquie Schmitt MD LABORATORY Performing Organization Address City/State/ZIP Code Phon e Number [facility] [address] [place] [address] [place], [place] [address] [place], [place] documented in this encounter Visit Diagnoses Diagnosis Routine gynecological examination - Prim elke Breast screening, unspecified documented in this encounter Care Teams Ground Service Equipment Mechanic Relationship Specialty Start Date End Date Jacquie Schmitt MD PCP - General 11/24/99 02/11/[address], [address] [place] [address] (work) documented as of this encounter
--- OUTSIDE RECORDS SUMMARY | 2022-08-18 09:35 | XMS_ITS | Encounter Summary ---
:1945 Author Organization [place] Address [address] [place] [address] Care Team Providers Name Role Phone Jacquie Schmitt MD Primary Care Provider Encounter Details Date Type Department Care Team Description 05/16/[address] 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 documented in this encounter Results COLONOSCOPY (05/16/2006 8:15 AM CDT) [facility] Method Time Signature COLONOSCOPY Endoscopy RADIOLOGY RESULTS Patient Name: Shahnaz adams ?Gender: F ? Procedure Date: 05/16/2006 8: 15 AM ? Date of : 1945 ? Age: 60 ? Admit Type: Outpatient ? Attending MD: Enrique Mesa ? Procedure: ?Colonoscopy Indications: ?Personal history of colonic polyps Providers: ?Enrique Mesa MD Referring MD: ?? Jacquie Schmitt MD Medicines: ?Fentanyl 100 mcg IV, Midazola m 4 mg IV, Atropine 0.6 mg IV Complications: ??No immediate complications Procedure: ?- A History and Physical has been perfo rmed, and patient ?medi cation allergies have been reviewed. The patient The ?risk s and benefits of the procedure and the sedation options ?and risks were discussed with the patient. All questions were ?answered and informed consent was obtained. Patient ?iden tification and proposed procedure were verified prior to ?the procedure by the physician in the procedure room. Mental ?Stat us Examination: normal. Respiratory Examination: clear to ?ausc ultation. CV Examination: normal. ASA Grade Assessment: ?P1 A normal healthy patient. After reviewing the risks and ?bene fits, the patient was deemed in satisfactory condition to ?undergo the procedure. T he anesthesia plan was to use ?moderate sedation / analgesia (con scious sedation). ?Imme diately prior to administration of medications, the ?suraj ent was re-assessed for adequacy to receive sedatives. ?The heart rate, respiratory rate, oxygen saturations, blood ?pres sure, adequacy of pulmonary ventilation, and response to ?care were monitored throughout the procedure. The physical ?stat us of the patient was re-assessed after the procedure. ?Steve contreras obtaining informed consent, the colonoscope was passed ?unde r direct vision. Throughout the procedure, the patient's ?bloo d pressure, pulse, and oxygen saturations were monitored ?cont inuously. The [id number] #[id number] was introduced through ?the anus and advanced to the cecum, identified by appendiceal ?orif ice & IC valve. The colonoscopy was accomplished without ?diff iculty. The patient tolerated the procedure well. The ?quality of the prep was excellent. ? Findings: ? The digital rectal exam was normal. The sigmoid colon , rectum, ? descending colon, splenic flexure, transverse c olon, hepatic flexure, ? ascending colon, cecum and ileoce wes valve were normal. The retroflexed ? view of the anal verge was normal and showed no anal or rectal ? abnormalities. ? Impression: ? - The sigmoid colon, rectum, descending co romeo, splenic ?flex ure, transverse colon, hepatic flexure, ascending colon, ?cecum and ileocecal valve are normal . Recommendation: - Discharge patient to home (ambulatory). ?- Repeat colonoscopy in 4 years for surveillance. ?- Return to primary care provider [place]. ? CPT Code(s): ?20957, Colonoscopy, flexible, proxim al to splenic flexure; ?diag nostic, with or without collection of specimen(s) by ?brus lalo or washing, with or without colon decompression ?(separate procedure) ICD Code(s): ?V12.72, Personal History of Colonic Polyps The codes documented in this report are prelimin elke and upon insurance coder review may be revised to meet current compliance requirements. Jhonny Mesa M.D Enrique Mesa MD Signed Date: 05/16/2006 9:09 AM Number of Addenda: 0 I was physically present for the entire viewing portion of t he exam. Note generated on 05/16/2006 8:16 AM COLONOSCOPY RADIOLOGY RESULTS Specimen (Source) Anatomical Collection Method Collection Time Re ceived Time Location / / Volume Laterality 05/16/2006 8:15 AM CDT Enrique Mesa MD PROCEDURES Performing Organization Address City/State/ZIP Code Phon e Number RADIOLOGY RESULTS documented in this encounter Visit Diagnoses Not on filedocumented in this encounter Care Teams Sld Inclusion Teacher Relationship Specialty Start Date End Date Jacquie Schmitt MD PCP - General 1/18/00 4/7/14 [address] , [facility] [address] [place] [address] documented as of this encounter
--- OUTSIDE RECORDS SUMMARY | 2022-08-18 09:35 | XMS_ITS | Encounter Summary ---
:1945 Author Organization [place] Address [address] [place] [address] Care Team Providers Name Role Phone Jacquie Schmitt MD Primary Care Provider Encounter Details Date Type Department Care Team Description 04/09/2005 Operative Report Yani Callejas MD (Manufacturing Job Titles) [facility] [address] [facility] [address] [place], [place] [address] (Wo rk) Social History Tobacco Use Types Packs/Day Years Used Date Smoking Tobacco: Former Cigarettes Quit : 11/07/1995 Alcohol Use Standard Drinks/Week Comments No 0 (1 standard drink = 0.6 oz pure alcoho l) Sex Assigned at Date Recorded Female 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 2) Degenerative arthritis medial compartment, left knee. POST- OPERATIVE DIAGNOSIS: OPERATION: 1) Arthroscopic partial medial meniscectomy, left knee. 2) Arthroscopic debridement of degenerative arthritis, left knee. SURGEON: Chris Callejas M.D. ANESTHESIA: General. INDICATIONS: This 59-year-old woman has had chronic increasing problems with left knee pain that has failed nonoperative treatment program. She has had an MRI scan which demonstrates the above-noted pathology. Appropriate risks and alternatives have been discussed at length and she has elected to proceed with surgical intervention. PROCEDURE: The patient was brought to the operating room, given a general anesthetic, left knee prepped and draped sterilely in the usual manner. Under tourniquet control, the arthroscope was inserted and the knee examined. The patellofemoral joint was basically normal with just some very mild chondromalacia. Medial gutter was normal. Medial compartment of the knee had significant grade 3 chondromalacia involving the majority of the articular surface of the distal femur and tibial plateau. There were several loose fragments of meniscus and articular cartilage floating within the medial compartment. There was a degenerative posterior horn medial meniscal tear. Remainder of the knee was normal with a normal anterior and posterior cruciate ligament in the notch and normal lateral compartment and a normal lateral gutter. We turned our attention to the medial compartment of the knee; and using arthroscopic instrumentation, partial meniscectomy was performed, removed the torn portion of the meniscus and trimmed the remaining rim back to stable configuration. The chondromalacia was then debrided lightly to a smooth configuration. The knee was vacuumed of any remaining debris, reexamined, and no further pathology identified. Arthroscopic instruments were removed; portals closed with single suture each; 20 cc of Marcaine with epinephrine with 1 cc of cortisone injected in the joint; sterile compressive dressing applied; tourniquet was released; and patient awakened and taken to recovery room in good condition. There were no intraoperative complications and minimal blood loss. [id number] _ CHRIS CALLEJAS MD MT: Document: [id number] [place], [place] Name: MR#: SHAHNAZ GLASGOW -[id number] OPERATIVE REPORT Page 2 of 2 LCN: SDS DSC: 04/09/2005 [place], [place] Name: MR#: SHAHNAZ GLASGOW -[id number] : Procedure Date: Account #: 1945 04/09/2005 [id number] Doctor: CHRIS CALLEJAS MD OPERATIVE REPORT Page 1 of 2 documented in this encounter Plan of Treatment Not on filedocumented as of this encounter Visit Diagnoses Not on filedocumented in this encounter Care Teams Refinery Operator Vapor Recovery Unit Relationship Specialty Start Date End Date Jacquie Schmitt MD PCP - General 11/24/99 02/11/14 [address] [facility] [address] [place] [address] documented as of this encounter
--- OUTSIDE RECORDS SUMMARY | 2022-08-18 09:35 | XMS_ITS | Encounter Summary ---
:1945 Author Organization [place] Address [address] [place] [address] Care Team Providers Name Role Phone Jacquie Schmitt MD Primary Care Provider Encounter Details Date Type Department Care Team Description 05/05/2005 Office Visit [facility] Brendan Licona ABDOM INAL PAIN RLQ Physicians MD Alisha (Primary Dx) [address] [place] [phone] Social History Tobacco Use Types Packs/Day Years Used Date Smoking Tobacco: Former Cigarettes Quit : 11/07/1995 Alcohol Use Standard Drinks/Week Comments No 0 (1 standard drink = 0.6 oz pure alcoho l) Sex Assigned at Date Recorded 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 right lower abdomen, Radiation of pain: to right flank Time of onset: last week, Context of problem: pain can come for a few minutes, then remit, this am was around for 2 hrs, Estimation of severity, one to ten scale; 3, so not bad Medications used: none Examination findings: The abdomen is soft without tenderness, guarding, mass or organomegaly. Bowel sounds are normal. No CVA tenderness or inguinal adenopathy noted. Skin color, temperature, and turgor are normal. No rashes or suspicious skin lesions noted. Xray findings: n/a Working Diagnosis: possible renal calculus, Treatment/ Rehab plan: could be a stone, renal or ureteralI think we came to the conclusion that we were going to observe and watch to see if anything declares itself and therefore making this complex of complaints more clear. We will redirect our attention and future evaluations to the renal system should she have this persistently or gets worse, then a ct scan , renal protocol is going to be ordered , she will let us know if not doing well, and will drink lots of fluids, Until that happens, careful observation by the patient and followup as needed is all that is required at this time. Patient agrees with this approach and fully understands. she will also strain her urine, strained provided today Recheck exam planned: see above also has been under a lot of stress/ left breast biopsy, neg, lesion right cheek, lot of medical issues, bp up today which is out of character for her. documented in this encounter Nursing Notes 05/05/2005 1:15 PM CDT >> [facility] 05/05/2005 1:16 pm 05/05/2005 Shahnaz Phelps presents for evaluation of abdominal pain. Characteristics of the pain are as follows: Location: RLQ with radiation to R back Quality: dull Quantity: 5/10 in intensity Chronicity: Onset 2 days ago, gradually worsening. Questioned patient about current smoking habits. Pt. recently quit smoking. pt states that she had diverticulosis - but is wondering if it is her appendix CLASSIFICATION OF OVERWEIGHT AND OBESITY BY BMI Obesity Class BMI(kg/m2) Underweight < 18.5 Normal 18.5-24.9 Overweight 25.0-29.9 OBESITY I 30.0-34.9 II 35.0-39.9 EXTREME OBESITY III >40 Patient's BMI 30.85 http://hin.nhlbi.nih.gov/menuplanner/menu.cgi documented in this encounter Plan of Treatment Not on filedocumented as of this encounter Procedures Procedure Name Priority Date/Time Associated Diagnosis Comme nts CL AFF URINALYSIS, Routine 05/05/2005 1:40 PM Abdominal Pain R lq Results for this ROUTINE CDT procedure are i n the results section. documented in this encounter Results URINALYSIS, ROUTINE (05/05/2005 1:40 PM CDT) [facility] Method Time Signature Color Urine yellow [facility] Appearance Urine hazy [facility] Glucose Urine neg mg/dL [facility] Bilirubin Urine neg [facility] Ketones Urine neg mg/dL [facility] Specific Bovina 1.010 [facility] Blood Urine moderate [facility] pH Arterial 7.0 5.0 - 7.0 [facility] Albumin Urine neg neg - neg [facility] mg/dL Urobilinogen 0.2 EU/dL [facility] Urine Nitrite Urine neg [facility] Leukocyte trace neg - neg [facility] Esterase Wbc, Urine Micro 10-15 neg - 2 [facility] RBC Micro Urine 10-20 neg - 2 [facility] EP/HPF few [facility] Bacteria Urine few neg - neg [facility] Casts/LPF neg [facility] Miscellaneous neg [facility] Brendan Licona MD LABORATORY Performing Organization Address City/State/ZIP Code Phon e Number [facility] documented in this encounter Visit Diagnoses Diagnosis Abdominal pain, right lower quadrant - P rimary documented in this encounter Care Teams Filling Machine Operator Relationship Specialty Start Date End Date Jacquie Schmitt MD PCP - General 11/24/99 02/11/14 [address] , [facility] [address] [place] [address] documented as of this encounter
--- OUTSIDE RECORDS SUMMARY | 2022-08-18 09:35 | XMS_ITS | Encounter Summary ---
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 2. Asymptomatic branch varicose veins, right leg. POSTOPERATIVE DIAGNOSIS: 1. 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 2. Asymptomatic branch varicose veins, right leg. PROCEDURE: 1. Ligation and stripping of right greater saphenous vein. 2. Multiple stab phlebectomies, right leg (greater than 20 incisions). ANESTHESIA: General. OPERATIVE DESCRIPTION: Shahnaz Glasgow was placed supine on the operating table and general anesthesia induced. The varicosities coursing from the anteromedial right thigh, across the anterior aspect of the right thigh, lateral to the right knee, on the upper anterior aspect of the right leg, medial right calf and right popliteal fossa were marked preoperatively with an indelible marker. The right lower extremity was then prepared and draped in a sterile fashion and a 2 cm incision was made in the right groin crease and the saphenofemoral junction dissected. All side branches from the greater saphenous vein were ligated and divided as encountered with 2-0 and 3-0 silk ties. There was a sizableanterior accessory saphenous branch which was ligated and transected. We then encircled the saphenofemoral junction with a 2-0 silk tie. I took care to positively identify the greater saphenous vein and common femoral vein cephalad and the superficial femoral vein deep and caudad. The right leg was exsanguinated with an Esmarch bandage and a pneumatic tourniquet placed on the upper right thigh and inflated to 300 mmHg pressure. We then doubly ligated the right saphenofemoral junction, divided the saphenous vein after clamping it distally and then passed a [employer] party supplies & rentalsman stripper in a r etrograde fashion down the greater saphenous vein to just below the knee. I then made a 3 mm counterincision overlying the stripper, retrieved the stripper with a #4 vein hook and then placed a small stripper head on the groin end of the stripper. We tied a Marcaine with epinephrine-soaked Brad roll to the stripper as well and then removed the saphenous vein in a retrograde fashion down to just below the knee. The vein was milked over the stripper so that stripper head did not have to be pulled through the incision. The Marcaine-soaked sponge was left in the saphenous tunnel during the remainder of the phlebectomy. All the marked varicosities were then removed by making stab wounds with an ophthalmic blade, retrieving the veins with either vein hooks or rebekah hooks and then avulsing them with mosquito clamps. After all the marked varicosities had been removed. We cleaned the leg with saline solution and closed the wound on the medial aspect of the right knee with a 4-0 Monocryl. We then irrigated the rightgroin wound and closed the deep layer with running 3-0 Vicryl and the skin with 4-0 Monocryl. We then dressed the leg with ABD pads, cast padding and an Flo bandage from the toes up to the groin. Afterwrapping the Flo bandage, the tourniquet was removed. The patient tolerated this well. Blood loss was less than 20 cc. Sponge and needle counts correct x2. C GEORGETTE FLOR MD MT: ermias Name: SHAHNAZ GLASGOW Account: [id number] : 1945 Procedure Date: 03/07/2006 Document: [id number] cc: Jacquie Schmitt MD documented in this encounter Plan of Treatment Not on filedocumented as of this encounter Visit Diagnoses Not on filedocumented in this encounter Care Teams Data Processing Clerk Relationship Specialty Start Date End Date Jacquie Schmitt MD PCP - General 11/24/99 02/11/14 [address] , [facility] [address] [place] [address] documented as of this encounter
--- OUTSIDE RECORDS SUMMARY | 2022-08-18 09:36 | XMS_ITS | Encounter Summary ---
:1945 Author Organization [facility] Address [address] [place] [address] Care Team Providers Name Role Phone Jacquie Schmitt MD Primary Care Provider Reason for Visit Reason Comments Pre-Op Exam Encounter Details Date Type Department Care Team Description 03/06/2004 Office Visit [place] Liudmila Dior PREOP EXAM OTHER SPECIFIED; Prateek Gatica MD SENILE CATARACT NOS [address] [place] [address] Social History Tobacco Use Types Packs/Day Years Used Date Smoking Tobacco: Former Cigarettes Quit : 11/07/1995 Alcohol Use Standard Drinks/Week Comments No 0 (1 standard drink = 0.6 oz pure alcoho l) Sex Assigned at Date Recorded Female 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 documented as of this encounter Last Filed Vital Signs Vital Sign Reading Time Taken Comments Blood Pressure 136/82 03/06/2004 3:00 PM CDT Pulse - - Temperature 36.3 ??C (97.4 ??F) 03/06/2004 3:00 PM CDT Respiratory Rate - - Oxygen Saturation - - Inhaled Oxygen Concentration - - Weight 93.4 kg (206 lb) 03/06/2004 3:00 PM CDT Height 171.5 cm (5' 7.5) 03/06/2004 3:00 PM CDT Body Mass Index 31.79 03/06/2004 3:00 PM CDT documented in this encounter Progress Notes 03/06/2004 3:00 PM CDT Pre Op Exam: March 06, 2004 [facility] [address] [place], [place] [id number] Shahnaz Phelps is an 58 year ol d female here for preop physical. BP 136/82 Temp (Src) 97.4 (Oral) Ht 5' 7.5 (1.72m) Wt 206 l bs (93.4kg) LMP Postmenopausal This is at the request of and is being sent to him an d to anesthesia. Smoker:No; quit 3 1/2 years ago. Alcohol/wk: about one a beer a week or less PRES ENT HISTORY: Reason for admission:Procedure:Cataract Place:[facility] Dr:Inna Time:730am Wh en:March 10 Onset of Illness: frequent glass changes in the last 90 mn Type of Surgery Anticipated: ca taract surgery Type of Anesthesia Anticipated: Local Patient Active Problem List: PERS HX COLONI C POLYPS[V12.72] ACNE NEC[706.1] DIVERTICULOSIS OF COLON W/O BLEED[562.10] ABSENCE OF MENSTRUAT ION[626.0] TRIGGER FINGER[727.03] Meds as of 03/06/2004: CALCIUM 600 + D 600-200 MG-IU OR TABS Napr osyn; last pill February 25 for tendonitis, and arthritis in finger Any Aspirin within 10 days? Yes; o ne Excedrin a week before surgery Family History: Review of patient's family history indicates: Ca ncer Brother Comment: colon No family history of maligna nt hyperthermia. No family history of bleeding disorder. No history of Sleep Apnea. Past Surgical H istory: Review of patient's past surgical history indicates: COLONOSCOPY & POLYPECTOMY COLONOSCOPY & POLYPECTOMY Review of the suraj ent's allergies finds: Imidazole Antifungals hives Penicillins hives Transfusion reactions: No prior transfusions Bleed ing tendencies:No bleeding problems noted REVIEW OF SYSTEMS: Cardiovascular: NORMAL Does report rare palpitations Respiratory: NORMAL Gastrointestinal: NORMAL Genitourinary: NORMAL PHYSICAL EXAM: Gene ral Appearance: healthy, alert and no distress Head: Normocephalic. No masses, lesions, tenderness or abnormalities Eyes: fundoscopic exam deferred; history of cataracts Ears: negative Nose: Nares siena l Mouth: Oropharynx normal Neck: Neck supple. No adenopathy. Thyroid symmetric, normal size, Lymphati cs: Cervical and axillary nodes negative Chest: Clear to auscultation Breast: No discrete or dominant masses noted to palpation. and No axillary adenopathy noted. Heart:regular rate and rhythm and no mu rmurs, clicks, or gallops Abdomen: Abdomen soft, non-tender. BS normal. No masses, organomegaly Genit als: Deferred Extremities: Extremities normal. No deformities, edema, or skin discoloration. Musculos keletal: Spine ROM normal. Muscular strength intact. Skin: Skin color, texture, turgor normal. No obinna hes or lesions. Neurological: No focal deficits Diabetic Instructions Given for Pre-Op Insulin: NA Lab: Hg: HGB (GM/DL) Date Value Low High Status 03/06/2004 13.3 12 16 ] Impression: OK for general anesthesia Right cataract leal rgery Preop orders per Dr Inna SOL Signature: Jamel David M.D. Copies are given to the patient and copies faxed to the hospital. documented in this encounter Nursing Notes 03/06/2004 3:00 PM CDT >> EVELYN VANEGAS 03/06/2004 3:05 pm Pt is here for a pre op px. Procedure:Cataract Place:[facility] [place] Time:730am When:March 10 documented in this encounter Plan of Treatment Not on filedocumented as of this encounter Procedures Procedure Name Priority Date/Time Associated Comments Diagnosis ZZCL AFF Routine 03/06/2004 3:58 PM Preop Exam Other Resul ts for this HEMOGRAM/PLATELET CDT Specified procedure are in Senile Cataract Nos the resu lts section. ZZC Routine 03/06/2004 3:52 PM Preop Exam Other ELECTROCARDIOGRAM, CDT Specified COMP W/READ Senile Cataract Nos HC VENOUS COLLECTION Routine 03/06/2004 3:39 PM Preop Exam Oth er CDT Specified Senile Cataract Nos documented in this encounter Results (ABNORMAL) HEMOGRAM/PLATELET (03/06/2004 3:58 PM CDT) [facility] gist Method Time Signature WBC 9.1 4.3 - 11 [facility] thous/CU.MM RBC Count 4.72 4.2 - 5.4 [facility] Thous/CU.MM Hemoglobin 13.3 12 - 16 [facility] GM/DL Hematocrit 43.3 38 - 47 % [facility] MCV 91.7 82 - 100 FL [facility] MCH 28.3 26 - 33 pg [facility] MCHC 30.9 (A) 31 - 36 [facility] PERCENT RDW 12.3 % [facility] Platelet Count 248 150 - 375 [facility] 10^9/L Specimen (Source) Anatomical Location Collection Method / Collectio n Time Received Time / Laterality Volume Liudmila David MD LABORATORY Performing Organization Address City/State/ZIP Code Phon e Number [facility] ELECTROCARDIOGRAM, COMP W/READ (03/06/2004 3:52 PM CDT) Narrative This result has an attachment that is no t available. Liudmila David MD EKG TECHNICAL Performing Organization Address City/State/ZIP Code Phon e Number [facility] documented in this encounter Visit Diagnoses Diagnosis Other specified pre-operative examinatio n Senile cataract, unspecified documented in this encounter Care Teams Clinical Services Assistant Relationship Specialty Start Date End Date Jacquie Schmitt MD PCP - General 11/24/[address], [facility] [address] [place] [address] documented as of this encounter
--- OUTSIDE RECORDS SUMMARY | 2022-08-18 09:36 | XMS_ITS | Encounter Summary ---
:1945 Author Organization [facility] Address [address] [place] [address] Care Team Providers Name Role Phone Jacquie Schmitt MD Primary Care Provider Encounter Details Date Type Department Care Team Description 04/07/2004 Operative Report Parviz Acharya MD ([place]) [facility] [address] [place] [address] (Wo rk) Social History Tobacco Use Types Packs/Day Years Used Date Smoking Tobacco: Former Cigarettes Quit : 11/07/1995 Alcohol Use Standard Drinks/Week Comments No 0 (1 standard drink = 0.6 oz pure alcoho l) Sex Assigned at Date Recorded Female 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 Cataract, OS. 2. High cornea astigmatism. POST-OPERATIVE DIAGNOSIS: 1. Cataract, OS. 2. High cornea astigmatism. OPERATION: Phacoemulsification with posterior chamber intraocular lens, OS. ANESTHESIA: Retrobulbar. ESTIMATED BLOOD LOSS: Trace. PATIENT IDENTIFICATION: Shahnaz Glasgow is a 58-year-old female, who was noted progressive decreased vision in her left eye. After evaluation, she was found to have cataracts at the primary cause of her 20/50 vision. After a complete discussion of the risks and benefits of the procedure was undertaken with the patient, she elected to have her cataracts removed. Because of her high degree of myopia and astigmatism, a toric lens will be placed. No guarantees were given. PROCEDURE: Retrobulbar anesthesia was given in the preoperative area. This consisted of a 50/50 mixture of 2 percent lidocaine and 0.5 percent bupivacaine. A Honan balloon was placed over the operative eye as the patient was brought to the operating suite. The eye was then prepped and draped in the usual sterile fashion, including drops of Betadine on its surface. A temporal clear corneal incision was made with a 3.0 mm keratome. A paracentesis tract was placed through which 1 percent nonpreserved Lidocaine was instilled. Viscoat was used to fill the anterior chamber. A circular continuous capsulorrhexis was formed with a cystitome and Utrata forceps. Hydrodissection of the lens nucleus was performed, and this was phacoemulsified using supracapsular technique. The remaining cortex was removed using automated irrigation and aspiration. The posterior capsule was then filled with Provisc, and a foldable Staar Model [id number], 17.5 diopter lens with 2.0 diopters of astigmatism correction placed at the 90 degree meridian using an external corneal marker. The remaining viscoelastic was removed using automated irrigation and aspiration. The anterior chamber was reformed using balanced salt solution. The corneal would was found to be self-sealing. Betadine, Ocuflox and prednisolone drops were placed over the operative eye as was a shield. The patient returned to the recovery area in stable condition. [id number] EZEQUIEL ACHARYA MD MT: Document: [id number] [place], [place] Name: SHAHNAZ GLASGOW LCN: SDS DSC: 04/07/2004 [place], [place] Name: MR#: : Procedure Date: SHAHNAZ GLASGOW -83 1945 04/07/2004 Doctor: EZEQUIEL ACHARYA MD OPERATIVE REPORT Page 1 of 2 documented in this encounter Plan of Treatment Not on filedocumented as of this encounter Visit Diagnoses Not on filedocumented in this encounter Care Teams Medicaid Plan Compliance Director Relationship Specialty Start Date End Date Jacquie Schmitt MD PCP - General 11/24/99 02/11/14 [address] , [facility] [address] [place] [address] documented as of this encounter
--- OUTSIDE RECORDS SUMMARY | 2022-08-18 09:36 | XMS_ITS | Encounter Summary ---
:1945 Author Organization [facility] Address [address] [place] [address] Care Team Providers Name Role Phone Jacquie Schmitt MD Primary Care Provider Reason for Visit Reason Comments Colonoscopy Encounter Details Date Type Department Care Team Description 05/20/2003 Telephone [facility] Jacquie Schmitt MD Colonoscopy [address] 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 Contact: Pt's. called the clinical support line and stated the following information: Pt. needs to ge t a referral for a colonoscopy. Pt. had one done in by Dr. Wells- did not go well. Pt. wants tosee someone else. Said they have been playing phone tag with a Rg. Someone named rg called th em last week and told them to call the clinic. Called pt. back and with her permission spoke with . Told him that we do not have an employee named Rg. Him and is are positive the name was Rg. Told him I was sorry for the misunderstanding but we do not have a Rg at [facility]. Told him that I will be happy to help him and if he has any questions or concerns he can call me. Gave him the number to Dr. Enrique Mesa. Also gave him Anand menendez number to call for referral questions. Pt's thanked me and had no further questions at this time. documented in this encounter Plan of Treatment Not on filedocumented as of this encounter Visit Diagnoses Not on filedocumented in this encounter Care Teams Prosthodontist Relationship Specialty Start Date End Date Jacquie Schmitt MD PCP - General 11/24/99 02/11/14 [address] [facility] [address] [place] [address] documented as of this encounter
--- OUTSIDE RECORDS SUMMARY | 2022-08-18 09:36 | XMS_ITS | Encounter Summary ---
:1945 Author Organization [facility] Address [address] [place] [address] Care Team Providers Name Role Phone Bharti Guthrie MD Primary Care Provider Reason for Visit Reason Comments Refill Request CHANGE TO MAILORDER, PREMPRO .625-2.5 Encounter Details Date Type Department Care Team Description 11/19/2002 Telephone [facility] Bharti Guthrie, Refill Request (CHANGE Physicians TO MAILORDER, PREMPRO [address] , .625-2.5) [address] [address] [phone] Social History Tobacco Use Types Packs/Day Years Used Date Smoking Tobacco: Former Cigarettes Quit : 11/07/1995 Alcohol Use Standard Drinks/Week Comments No 0 (1 standard drink = 0.6 oz pure alcoho l) Sex Assigned at Date Recorded Female 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 with pt. information for prempro to be filled and sent. >> BHARTI GUTHRIE TueNov 19, 2002 11:51 AM Noted. Signed. In pod 2. >> KASIA TABARES TueNov 19, 2002 11:40 AM >> CALL RECEIVED. Contact: fax Pt.s dropped off info for to start mailorder rx. for her prempro .625-2.5. rx. which exp. 04-09 was faxed to [employer] this a.m. documented in this encounter Plan of Treatment Not on filedocumented as of this encounter Visit Diagnoses Not on filedocumented in this encounter Care Teams Printing Sign Machine Operator Relationship Specialty Start Date End Date Bharti Guthrie MD PCP - General 11/24/99 02/11/14 [address] [address] documented as of this encounter
--- OUTSIDE RECORDS SUMMARY | 2022-08-18 09:36 | XMS_ITS | Encounter Summary ---
:1945 Author Organization [facility] Address [address] [place] [address] Care Team Providers Name Role Phone Jacquie Schmitt MD Primary Care Provider Reason for Referral - Closed Specialty Diagnoses / Procedures Referred By Contact Refer red To Contact Orthopedics Diagnoses Trigger finger (acquired) Jacquie Schmitt MD Teynor, Joseph T, MD [address], [address] [place] [address] [place] [address] Phone: Fax: Referral ID Status Reason Start Date Expiration Date Visits Requ ested Visits Authorized [id number] Closed 04/08/2003 11/06/2011 1 1 - Closed Specialty Diagnoses / Procedures Referred By Contact Refer red To Contact Colon and Rectal Diagnoses Personal history of colonic polyps Jacquie Schmitt MD [facility] [address], [facility] Jacey [address] [address] Referral ID Status Reason Start Date Expiration Date Visits Requ ested Visits Authorized [id number] Closed 04/08/2003 11/06/2011 1 1 - Closed Specialty Diagnoses / Procedures Referred By Contact Refer red To Contact Diagnoses Gynecological examination Absence of menstruation Jacquie Schmitt MD [address], [address] [place] [address] Referral ID Status Reason Start Date Expiration Date Visits Requ ested Visits Authorized [id number] Closed 04/08/2003 11/06/2011 1 1 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 Details Date Type Department Care Team Description 04/08/2003 Office Visit [facility] Jacquie Schmitt GYNECOLOG IC EXAMINATION (Primary Dx); Prateek Babb MD ABSENCE OF MENSTRUATION; [address] HX COLONIC POLYPS; [address]; [place], [place] ALLERGIC RH INITIS NOS; [id number] DERMATOPHYTOSIS OF NAIL; [phone] 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) Social History Tobacco Use Types Packs/Day Years Used Date Smoking Tobacco: Former Cigarettes Quit : 11/07/1995 Alcohol Use Standard Drinks/Week Comments No 0 (1 standard drink = 0.6 oz pure alcoho l) Sex Assigned at Date Recorded Female 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 documented as of this encounter Last Filed Vital Signs Vital Sign Reading Time Taken Comments Blood Pressure 140/90 04/08/2003 9:15 AM CDT Pulse 80 04/08/2003 9:15 AM CDT Temperature 36.6 ??C (97.8 ??F) 04/08/2003 9:15 AM CDT Respiratory Rate 12 04/08/2003 9:15 AM CDT Oxygen Saturation - - Inhaled Oxygen Concentration - - Weight 96.2 kg (212 lb) 04/08/2003 9:15 AM CDT Height 171.5 cm (5' 7.5) 04/08/2003 9:15 AM CDT Body Mass Index 32.71 04/08/2003 9:15 AM CDT documented in this encounter Progress Notes 04/08/2003 9:15 AM CDT SUBJECTIVE: Shahnaz Glasgow is an 57 year old postmenopausal woman who presents for annual urogynaecologist exam. Menopause at age 49. No bleeding, spotting, or discharge noted. Estrogen replacement ther apy: none currently, has taken in past SAMANTA exposure: no History of abnormal Pap smear: no Family hist ory of uterine or ovarian cancer: endometrial cancer Regular self breast exam: no History of abnormal mammogram: no Family history of breast cancer: no History of abnormal lipids: no Review of patient' s past medical history indicates: ACNE NEC POSTME NOPAUSAL HORMONAL REPLACMT RHINITIS DUE TO POLLEN Review of patient's family history indicates: Cancer Brother Comment: colon Review of patient's past surgical history indicates: COLONOSCOPY & POLYPECTOMY COLONOSCOPY & POLYPECTOMY Meds as of 04/08/2003: TRIAMCINOLONE ACETONIDE (TOP) 0.1 % EX CREA apply bid RETIN-A MICRO 0.1 % E X GEL apply at bedtime CITRUCEL FIBER LAXATIVE OR PACK 1 tbsp each day PREMPRO 0.625-2.5 MG OR TABS 1 tab PO QD NASONEX 50 MCG/ACT NA SUSP 2 sprays each nostril Once daily for allergies CLARITIN-D 24 HO MG93-119 MG OR TB24 1 tab po QD (Once per day) as needed for allergy symptoms Review of patient's allergies indicates: Imidazole Anti* hives Penicillins hives Tobacco Use: Quit Pack s/Day: Years: Quit date: 11/07/1995 Alcohol Use: No Review Of Systems Ear s/Nose/Throat: negative Respiratory: negative Cardiovascular: negative Gastrointestinal: negative Gen itourinary: negative OBJECTIVE: BP 140/90 Pulse 80 Temp 97.8 Temp Src: Oral Resp 12 Ht 5' 7.5 (1.715m) Wt 212 lbs (96.163 kg) LMP Postmenopausal General appearance: healthy, alert, no di stress and cooperative Skin: Skin color, texture, turgor normal. No rashes or lesions., positives: va ricosity ankles Ears: negative Nose/Sinuses: Nares normal. Septum midline. Mucosa normal. No drainage or sinus tenderness. Oropharynx: Lips, mucosa, and tongue normal. Teeth and gums normal. Neck: Neck supple. No adenopathy. Thyroid symmetric, normal size,, Carotids without bruits. Lungs: negative, Per cussion normal. Good diaphragmatic excursion. Lungs clear Heart: negative, PMI normal. No lifts, heav es, or thrills. RRR. No murmurs, clicks gallops or rub Breasts: Inspection negative. No nipple discha rge or bleeding.No masses. Abdomen: Abdomen soft, non-tender. BS normal. No masses, organomegaly Pel tiffany: External genitalia and vagina normal. Bimanual and rectovaginal normal., positive findings: vagi nal mucosa atrophy Ext: Tinea unguium of the large left toenail. 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 Off PREMPRO and using Replens every 3-4 days. CONSULT TO OTHER SPECIALTY [9 046] Order #: [id number] Class: External referral, colonoscopy. CONSULT TO ORTHOPEDICS [9064] Order #: [id number] Class: External referral Dx: 1) Pap smear, mammogram 2) Lipids at appropriate intervals Rx: Total calcium intake of 1500 mgm/day, vitamin D 400-800IU/day and a regular weight bearing exerc ise program for prevention of osteoporosis is recommended treatment at this time. PENLAC 8 % EX SOLN , apply daily as directed, D: 1 appl bottle, R: 2 CLARITIN-D 24 HOUR 10-240 MG ORTB24, 1 tab po QD ( Once per day) as needed for allergy symptoms, D: 30, R: 11 NASONEX 50 MCG/ACT NASUSP, 2 sprays each nostril Once daily for allergies, D: 2, R: 11 RETIN-A MICRO 0.1 % EX GEL, apply at bedtime, D: 60 gra ms, R: 3 PE: Reviewed health maintenance including diet, regular exercise, estrogen replacement an d periodic exams. documented in this encounter Nursing Notes 04/08/2003 9:15 AM CDT >> EVE SIMON 04/08/2003 9:29 am Patient is here for full physical exam and pap. Patient is fasting. Questioned patient about current smoking habits. Pt. has never smoked. documented in this encounter Plan of Treatment Not on filedocumented as of this encounter Procedures Procedure Name Priority Date/Time Associated Diagnosis Comme nts ORTHOPEDICS ADULT Routine 09/27/2005 Trigger Finger REFERRAL ZZ OTHER SPECIALTY Routine 06/03/2003 Pers Hx Colonic REFERRAL ([facility]) Polyps HCL LIPID PANEL Routine 04/09/2003 6:02 AM Gynecologic Result s for this CDT Examination procedure are in Absence Of the results Menstruation section. CL AFF GLUCOSE, Routine 04/08/2003 9:53 AM Gynecologic Result s for this FASTING CDT Examination procedure are in Absence Of the results Menstruation section. ZZCL AFF HEMOGLOBIN Routine 04/08/2003 9:53 AM Gynecologic Re sults for this CDT Examination procedure are in Absence Of the results Menstruation section. HCL URINALYSIS Routine 04/08/2003 9:41 AM Gynecologic Results for this NONAUTO W/O SCOPE CDT Examination procedure are in [facility] Absence Of the results Menstruation section. HC VENOUS COLLECTION Routine 04/08/2003 9:38 AM Gynecologic CDT Examination Absence Of Menstruation C PAP HANDLING FEE Routine 04/08/2003 9:28 AM Gynecologic CDT Examination Absence Of Menstruation ZZCL AFF THIN LAY Routine 04/08/2003 12:00 Gynecologic Result s for this PAP,DIAG W/HPV AM CDT Examination procedure are in REFLEX Absence Of the results Menstruation section. [facility] SEND-OUT Routine 04/08/2003 Gynecologic Results for brendan s MAMMOGRAM Examination procedure are in Absence Of the results Menstruation section. C DEXA, BONE Routine 04/08/2003 Gynecologic Results for brendan s DENSITY, AXIAL SKEL Examination procedure are in Absence Of the results Menstruation section. documented in this encounter Results CONSULT TO ORTHOPEDICS (09/27/2005) Narrative This result has an attachment that is no t available. Jacquie Schmitt MD REFERRAL CONSULT TO OTHER SPECIALTY (06/03/2003) Narrative This result has an attachment that is no t available. Jacquie Schmitt MD REFERRAL A.M.A. LIPID PANEL (04/09/2003 6:02 AM CDT) [facility] Method Time Signature Comments DNR [facility] Triglycerides 130 <150 MG/DL [facility] Cholesterol 191 <200 MG/DL [facility] Cholesterol 12 PERCENTILE [facility] Percentile HDL Cholesterol 57 >39 MG/DL [facility] LDL Cholesterol 108 <130 MG/DL [facility] Calculated Comment: LDL CHOLESTEROL (MG/DL) GOALS AND CUTPOI NTS FOR THERAPEUTIC LIFESTYLE CHANGES (TLC) AND DRUG THERAPY IN DIFFERENT RISK CATEGORIES (AFTER EXCL USION OR, IF APPROPRIATE, TREATMENT OF SECONDARY C AUSES OF LDL ELEVATION). FROM NCEP ATP-III REPORT, GEORGI Sherman 2000. RISK CATEGORY ?LDL GOAL ?LDL TO ? LDL TO CONSIDER ? INITIATE TLC ??DRUG THERAPY - CHD OR CHD ?>129 EQUIVALENTS: ?(100-129: 10 YR RISK >20% ?<100 ? >99 ? DRUG OPTIONAL) 2+ RISK FACTORS: 10 YR RISK 10-20% ??<130 ? >129 ?>129 - 2+ RISK FACTORS: 10 YR RISK <10% ?<130 ? >129 ?>159 - 0-1 RISK FACTORS: ??<160 ? >159 ?>189 ?(160-189: ?DRUG OPTIONAL) Cholesterol/HDL Ratio 3.4 <4.4 [facility] Specimen (Source) Anatomical Location Collection Method / Collectio n Time Received Time / Laterality Volume 04/08/2003 Jacquie Schmitt MD LABORATORY Performing Organization Address City/State/ZIP Code Phon e Number [facility] GLUCOSE, FASTING (04/08/2003 9:53 AM CDT) P athologist Signature Glucose 116 60 - 120 [facility] mg/dL Jacquie Schmitt MD LABORATORY Performing Organization Address City/[facility]/ZIP Code Phon e Number [facility] HEMOGLOBIN (04/08/2003 9:53 AM CDT) P athologist Signature Hemoglobin 13.4 12 - 16 [facility] GM/DL Jacquie Schmitt MD LABORATORY Performing Organization Address City/State/ZIP Code Phon e Number [facility] URINALYSIS NONAUTO W/O SCOPE (04/08/2003 9:41 AM CDT) P athologist Signature Glucose Urine neg neg - neg [facility] mg/dL Albumin Urine neg neg - neg [facility] mg/dL Specimen (Source) Anatomical Collection Method Collection Time Re ceived Time Location / / Volume Laterality 04/08/2003 9:41 AM CDT Jacquie Schmitt MD LABORATORY Performing Organization Address City/State/ZIP Code Phon e Number [facility] THIN LAY PAP,DIAG W/HPV REFLEX (04/08/2003 12:00 AM CDT) athologist Signature Unlabelled DNR [facility] Source DNR [facility] LMP DNR [facility] Clinical DNR [facility] History Therapy DNR [facility] Last Pap DNR [facility] Diagnosis PAP Date DNR [facility] Prev Bx Dx DNR [facility] Prev Bx Date DNR [facility] Addl Hx Info [facility] Statement of [facility] Adequacy Comment: SATISFACTORY FOR EVALUATION ENDOCERVICAL/TRANSFORMATION ZONE COMPONE NT PRESENT General Categorization [facility] [place] Descriptive Diagnosis [facility] [place] Comment: NEGATIVE FOR INTRAEPITHELIAL LESION OR M ALIGNANCY BASED ON THIN PREP PAP TEST RESULT, HPV REFLEX TEST NOT PERFORMED. Recommendations [facility] . [facility] Comment: PAP SMEARS ARE SUBJECT TO BOTH FALSE NE GATIVE AND FALSE POSITIVE RESULTS EVIDENCED BY DATA PUBLISHED IN THE MEDICAL LITERATURE. ??YOUR PATIE NT'S RESULT SHOULD BE INTERPRETED IN THIS CONTEXT, TOGETHER WITH THE PATIENT'S HISTORY AND CLINICAL FIND INGS. THIS TEST WAS PERFORMED AT [address], [address] [place], [place] ?? [address] PHONE NUMBERS FOR CYTOLOGY INQUIRIES, IN CLUDING SLIDE REQUESTS: ? Specimen (Source) Anatomical Location Collection Method / Collectio n Time Received Time / Laterality Volume 04/08/2003 04/10/2003 Jacquie Schmitt MD LABORATORY Performing Organization Address City/[facility]/ZIP Code Phon e Number [facility] SEND-OUT MAMMOGRAM (04/08/2003) Anatomical Region Laterality Modality Other Narrative 04/08/2003 S U B U R B A N ?I M A G I N G ?S I - [facility] ?S I - [place] ?S I - [place] ?[facility] - [facility] ?Patient: TANNA GLASGOWN ?Home phone: ? [phone] ? Work phone: ? [place] ?[address] ?Dept No: [id number] ?Acc #: ?? [id number] ?Site: ?BM ?: 1945 ?? Age: 57 Year s ?Sex: F ?SSN: ?Requesting Clinic: [facility] ?Requesting Physician: Ruben Schmitt ? Exam:BILATERAL SCREENING MAMMOGRAM ? Exam Date:04/16/2003 ? Breast symptoms: ??None. ? Previous mammography: ??Compar haile with SI 04/16/02 and 03/27/01, ? there is no change from previo us mammography. ? Breast parenchyma: ??Heterogen eously dense. ? IMAGING IMPRESSION: ??ACR SEB GORY 1. ?? NEGATIVE, NO EVIDENCE OF ? MALIGNANCY. ? Exam results letter mailed to patient. ?Page 1 ? Dictated By:HERMAN RHOADES ? Trans Intls:DP ? Tech Intls:PB ?Dept No: [id number] ?? Jacquie Babb Oskar [facility] DEXA, BONE DENSITY, AXIAL SKEL (04/08/2003) Anatomical Region Laterality Modality Other Narrative 04/08/2003 S U B U R B A N ?I M A G I N G ?S I - [place] ?S I - [place] ?S I - [place] ?S I - [place] ?Patient: SHAHNAZ GLASGOW ?Home phone: ? [phone] ? Work phone: ? [place] ?[phone] ?Dept No: [id number] ?Acc #: ?? [id number] ?Site: ?BM ?: 1945 ?? Age: 57 Year s ?Sex: F ?SSN: ?Requesting Clinic: [facility] ?Requesting Physician: Ruben Schmitt ? Exam:BONE DENSITY ? Exam Date:04/16/2003 ? TECHNIQUE: ??The study was per formed using DEXA in the AP lumbar ? spine and AP femur. ? FINDINGS: ??Using DEXA, the re sults were reported according to T ? score. The T score is the valentine dard deviation from the peak bone ? mass in a normal young patient . ??A T score of 0 to -1.0 is normal. ? A T score of -1.0 to -2.5 kenneth elates with osteopenia. ?? A T score of ? less than -2.5 correlates with osteoporosis. ? L1-L4 T score -0.57. Femoral n kevin T score -0.02. Total proximal ? femur T score --0.38. ? CONCLUSION: ??BONE DENSITY WIT HIN NORMAL LIMITS. ? RECOMMENDATIONS: ??TYPICAL PRE VENTIVE RECOMMENDATIONS INCLUDE TOTAL ? DAILY CALCIUM INTAKE (DIET AND SUPPLEMENT) OF 1500 MG, DAILY ? VITAMIN D INTAKE OF 400-800 IU , AND REGULAR WEIGHT-BEARING ? EXERCISE, IN THE APPROPRIATE C LINICAL SETTING. ?Page 1 ? Dictated By:HAYES CHOPRA M.D ? Trans Intls:SB ? Tech Intls:BB ?Dept No: [id number] ?? Jacquie Schmitt MD SPECIAL IMAGING STUDIES documented in this encounter Visit Diagnoses Diagnosis Gynecological examination - Primary Absence of menstruation Personal history of colonic polyps Other acne Allergic rhinitis, cause unspecified Dermatophytosis of nail Trigger finger (acquired) documented in this encounter Care Teams Library Services Assistant Relationship Specialty Start Date End Date Jacquie Schmitt MD PCP - General 11/24/99 02/11/[address], [address] [place] [address] documented as of this encounter
--- OUTSIDE RECORDS SUMMARY | 2022-08-18 09:36 | XMS_ITS | Encounter Summary ---
:1945 Author Organization [facility] Address [address] [place] [address] Care Team Providers Name Role Phone Jacquie Schmitt MD Primary Care Provider Reason for Referral - Closed Specialty Diagnoses / Procedures Referred By Contact Refer red To Contact Diagnoses Pain in joint, pelvic region and thigh Jacquie Schmitt MD [address] , [facility] [address] [place] [address] Referral ID Status Reason Start Date Expiration Date Visits Requ ested Visits Authorized [id number] Closed 03/18/2003 11/06/2011 1 1 Reason for Visit Reason Comments Nausea Pharyngitis Vaginal Problem Encounter Details Date Type Department Care Team Description 03/18/2003 Office Visit [facility] Jacquie Schmitt, ATROPH IC VAGINITIS (Primary Dx); Physicians ACUTE PHARYNGITIS; [address], [place] [address] [place] [address] [phone] Social History Tobacco Use Types Packs/Day Years Used Date Smoking Tobacco: Former Cigarettes Quit : 11/07/1995 Alcohol Use Standard Drinks/Week Comments No 0 (1 standard drink = 0.6 oz pure alcoho l) Sex Assigned at Date Recorded Female 10/17/2018 7:14 PM [employer]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 documented as of this encounter Last Filed Vital Signs Vital Sign Reading Time Taken Comments Blood Pressure 124/84 03/18/2003 9:45 AM CDT Pulse 76 03/18/2003 9:45 AM CDT Temperature 37.7 ??C (99.8 ??F) 03/18/2003 9:45 AM CDT Respiratory Rate 12 03/18/2003 9:45 AM CDT Oxygen Saturation - - Inhaled Oxygen Concentration - - Weight 96.2 kg (212 lb) 03/18/2003 9:45 AM CDT Height 172.7 cm (5' 8) 03/18/2003 9:45 AM CDT Body Mass Index 32.23 03/18/2003 9:45 AM CDT documented in this encounter Progress Notes 03/18/2003 9:45 AM CDT SUBJECTIVE: Shahnaz Glasgow is an 57 year old woman who presents with vaginitis. Symptoms includ e local irritation and burning. Onset of symptoms 2 months ago, unchanged since. Went off PREMPRO 2 m onths ago cold turkey. No spotting after stopping. Feels pressure in the pelvic area daily. Mild URI symptoms with dry throat. Predisposing factors: none Hx of previous vaginitis: rare Sexually active : yes, single partner, contraception - none Meds as of 03/18/2003: TRIAMCINOLONE ACETONIDE (TOP) 0.1 % EX CREA apply bid RETIN-A MICRO 0.1 % EX GEL apply at bedtime CITRUCEL FIBER LAXATIVE OR PACK 1 tbs p each day NASONEX 50 MCG/ACT NA SUSP 2 sprays each nostril Once daily for allergies CLARITIN-D 24 HO UR 10-240 MG OR TB24 1 tab po QD (Once perday) as needed for allergy symptoms Review of patient's allergies indicates: Imidazole Anti* hives Penicillin hives Tobacco Use: Quit Packs /Day: Years: Quit date: 11/07/1995 Alcohol Use: No OBJECTIVE: BP 124/84 Pulse 76 Temp 99.8 Temp Src: Oral Ht 5' 8 (1.727m) Wt 212 lbs (96.163 kg) LMP [facility] josh ENT: External ears and canals clear bilaterally. TM's normal bilaterally. Nose normal without l esions or discharge. Oropharynx normal. RSS: neg Neck supple without palpable adenopathy. Pelvic: Ex ternal genitalia and vagina normal. Bimanual and rectovaginal normal., positive findings:vaginal muc yas atrophy ASSESSMENT: ACUTE PHARYNGITIS [462] JOINT PAIN-PELVIS [719.45] Vaginitis - senile PLAN : 1) Start Replens vaginal lubricant every week. Will schedule a SONO PELVIS COMPLETE [17715] Order #: [id number] Class: Historical to evaluate this pressure vs dry mucosa finding. 2) Recheck if sympto ms persist, worsen, or new symptoms develop. 3) Symptomatic care of the throat and URI reviewed. documented in this encounter Nursing Notes 03/18/2003 9:45 AM CDT >> EVE SIMON 03/18/2003 10:37 am Telephone call made to schedule Shahnaz Glasgow for the following: Ultrasound: Pelvic Date: 03/19/03 Time: 1:00 Place: [facility] B'Steven >> EVE SIMON 03/18/2003 9:57 am Patient is still having a funny feeling in her stomach. She dose not have it all the time it seems to come and go. She also has some burning in the vaginal area. Questioned patient about current smoking habits. Pt. quit smoking some time ago. documented in this encounter Plan of Treatment Not on filedocumented as of this encounter Procedures Procedure Name Priority Date/Time Associated Diagnosis Comme nts HCL WET PREP Routine 03/18/2003 10:19 AM Atrophic Vag initis Results for this CDT Joint Pain-Pelvis procedure are in the results section. HCL STREP A RAPID Routine 03/18/2003 10:04 AM Acute Pharyngiti s Results for this CDT procedure are i n the results section. HC US PELVIC Routine 03/18/2003 Joint Pain-Pelvis Results fo r this NON-OB, COMPLETE procedure a re in the results section. documented in this encounter Results (ABNORMAL) A WET PREP (03/18/2003 10:19 AM CDT) Analysis Performed At Patho logist Time Signature Trichomonas neg [facility] Vaginals yeast cells rare [facility] PMNs Wet Prep 2-3 [facility] Clue cells neg [facility] Bacteria Urine few [facility] pH Arterial 4.0 (A) 5.0 - 7.0 [facility] Jacquie E Scherf MD LABORATORY Performing Organization Address City/State/ZIP Code Phon e Number [facility] STREP A RAPID (03/18/2003 10:04 AM CDT) P athologist Signature Rapid Strep A neg [facility] Screen Specimen (Source) Anatomical Collection Method Collection Time Re ceived Time Location / / Volume Laterality 03/18/2003 10:04 AM CDT Jacquie Schmitt MD LABORATORY Performing Organization Address City/State/ZIP Code Phon e Number [facility] SONO PELVIS COMPLETE (03/18/2003) Anatomical Region Laterality Modality Other Narrative 03/18/2003 S U B U R B A N ?I M A G I N G ?S I - [place] ?S I - [place] ?S I - [place] ?[facility] - [facility] ?Patient: TANNA GLASGOWN ?Home phone: ? [phone] ? Work phone: ? [place] ?[place] ?[address] ?Dept No: [id number] ?Acc #: ?? [id number] ?Site: ?BM ?: 1945 ?? Age: 57 Year s ?Sex: F ?SSN: ?Requesting Clinic: [facility] ?Requesting Physician: Ruben Schmitt ? Exam:US PELVIC w/TRANSVA GINAL ? Exam Date:03/19/2003 ? PELVIC ULTRASOUND ? HISTORY: ??Pelvic pain. ? FINDINGS: ??Ultrasound was per formed transabdominally and ? transvaginally. ??The uterus a ppeared within normal limits measuring ? 6.6 cm with an endometrial thi ckness of 4.6 mm. ?? Both ovaries ? appeared within normal limits. ??There was no free pelvic fluid. ? IMPRESSION: ??THE EXAM IS WITH IN NORMAL LIMITS. ?Page 1 ? Dictated By:LAURA MACIAS ? Trans Intls:TJ ? Tech Intls:LS ?Dept No: [id number] ?? Jacquie Schmitt MD SPECIAL IMAGING STUDIES documented in this encounter Visit Diagnoses Diagnosis Postmenopausal atrophic vaginitis - Prim elke Acute pharyngitis Pain in joint, pelvic region and thigh documented in this encounter Care Teams Butter Fat Tester Relationship Specialty Start Date End Date Jacquie Schmitt MD PCP - General 11/24/99 4 [address] , [facility] [address] [place] [address] documented as of this encounter
--- OUTSIDE RECORDS SUMMARY | 2022-08-18 09:36 | XMS_ITS | Encounter Summary ---
:1945 Author Organization [facility] Address [address] [place] [address] Care Team Providers Name Role Phone Jacquie Schmitt MD Primary Care Provider Reason for Referral - Closed Specialty Diagnoses / Procedures Referred By Contact Refer red To Contact Physical Therapy Diagnoses Lateral epicondylitis of elbow Sprain and strain of other specified sites of shoulder and upper arm Carpal tunnel syndrome Jacquie Schmitt MD [address] , [facility] [address] [place] [address] Referral ID Status Reason Start Date Expiration Date Visits Requ ested Visits Authorized [id number] Closed 05/13/2003 11/06/2011 1 1 Reason for Visit Reason Comments Musculoskeletal Problem Shoulder Encounter Details Date Type Department Care Team Description 05/13/2003 Office Visit [facility] Jacquie Schmitt LATERA L EPICONDYLITIS (Primary Dx); Physicians SPRAIN SHOULDER/ARM NEC; [address], CARPAL TUNNEL SYNDROME [address] [place] [address] [phone] Social History Tobacco Use Types Packs/Day Years Used Date Smoking Tobacco: Former Cigarettes Quit : 11/07/1995 Alcohol Use Standard Drinks/Week Comments No 0 (1 standard drink = 0.6 oz pure alcoho l) Sex Assigned at Date Recorded 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 Occurs while lifting or gripping or otherwise using the extremity. 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 Has also no ticed numbness and tingling in her right 2nd, 3rd, and 4th fingers after working all day. Does 3, 12 hour shifts. Right shoulder also is frequently tender anteriorly as well. 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 A we talk she thinks going off her HRT of PREMPRO has flared th be arthritis and tendon problems.. OBJECTIVE: Point tenderness over lateral epicondyle with positiv e Cozen's test. Elbow, wrist and hand otherwise normal. Shoulder exam on the right shows a normal sh oulder musculature with no atrophy. Abduction is limited by pain although patient can get arm over h ead. Testing the rotator cuff specifically finds no special weakness of internal or external rotatio n. Tender over the bicep tendon anteriorly The A-C joint is non tender and the periscapular musculatu re is normal. The hands reveal normal motor, sensory, vascular and tendon function. Positive Tinel s ign on the right ASSESSMENT: Lateral epicondylitis SPRAIN SHOULDER/ARM NEC [840.8] CARPAL TUNNEL S YNDROME [354.0] PLAN: This condition has been fully explained to the patient, who indicates understa nding. Treatment plan: Rehab stretches/ exercises to begin immediately and given in writing with illu strations. Each arm will do carpal tunnel, bicep tendon and lateral epicondylitis rehab. CONSULT TO P HYSICAL THERAPY [8657] Order #: [id number] Class: External referral Tennis elbow splint recommended at work prn rest the arm as much as practical use of heat and/or icemay be helpful prn NSAID's started bid with food today MEDROL (MATT) 4 MG OR TABS, take as directed, D: 1, R: 0 Consider steroid injec tion if not improved call as needed. Will contact glycerin supervisor to have a WC reported injury and get jarvis k to us regarding information for WC. documented in this encounter Nursing Notes 05/13/2003 10:00 AM CDT >> EVE SIMON 05/13/2003 10:15 am Patient has been having having pain in her arms and shoulders. It also goes down into her fingers. Questioned patient about current smoking habits. Pt. quit smoking some time ago. documented in this encounter Plan of Treatment Not on filedocumented as of this encounter Procedures Procedure Name Priority Date/Time Associated Diagnosis Comme nts PHYSICAL THERAPY REFERRAL Routine 05/22/2003 Latera l Epicondylitis Sprain Shoulder/ Arm Nec Carpal Tunnel Syndrome documented in this encounter Results CONSULT TO PHYSICAL THERAPY (05/22/2003) Narrative This result has an attachment that is no t available. Jacquie Schmitt MD REFERRAL documented in this encounter Visit Diagnoses Diagnosis Lateral epicondylitis of elbow - Primary Lateral epicondylitis of elbow Sprain and strain of other specified sit es of shoulder and upper arm Carpal tunnel syndrome documented in this encounter Care Teams Advertising Copy Writer Relationship Specialty Start Date End Date Jacquie Schmitt MD PCP - General 11/24/99 02/11/[address], [address] [place] [address] documented as of this encounter
--- OUTSIDE RECORDS SUMMARY | 2022-08-18 09:36 | XMS_ITS | Encounter Summary ---
:1945 Author Organization [facility] Address [address] [place] [address] Care Team Providers Name Role Phone Jacquie Schmitt MD Primary Care Provider Reason for Referral Other (Routine) - Closed Specialty Diagnoses / Procedures Referred By Contact Refer red To Contact Diagnoses Personal history of colonic polyps Jacquie Schmitt MD Gill, Robert A, MD [address], [address] [place] [address] [place] [address] Fax: Referral ID Status Reason Start Date Expiration Date Visits V isits Requested Authorized [id number] Closed Service Not 05/20/2003 11/06/2011 1 1 Available at Clinic Encounter Details Date Type Department Care Team Description 05/20/2003 Orders Only [facility] Jacquie Schmitt, PERS H X COLONIC POLYPS Physicians (Primary Dx) [address], [address] [place] [address] [phone] Social History Tobacco Use Types Packs/Day Years Used Date Smoking Tobacco: Former Cigarettes Quit : 11/07/1995 Alcohol Use Standard Drinks/Week Comments No 0 (1 standard drink = 0.6 oz pure alcoho l) Sex Assigned at Date Recorded 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
--- OUTSIDE RECORDS SUMMARY | 2022-08-18 09:36 | XMS_ITS | Encounter Summary ---
:1945 Author Organization [facility] Address [address] [place] [address] Care Team Providers Name Role Phone Jacquie Schmitt MD Primary Care Provider Reason for Visit Reason Comments Breast Problem RECHECK Encounter Details Date Type Department Care Team Description 08/10/2004 Office Visit [facility] Jacquie Schmitt CARBUN DAHIANA OF TRUNK Physicians (Primary Dx) [address] [place] [address] [address] [phone] Social History Tobacco Use Types Packs/Day Years Used Date Smoking Tobacco: Former Cigarettes Quit : 11/07/1995 Alcohol Use Standard Drinks/Week Comments No 0 (1 standard drink = 0.6 oz pure alcoho l) Sex Assigned at Date Recorded 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 came to a head this weekend and purulentmaterial noted. Feeling somewhat better after drainage. See last visit. Knee slowly improving. OBJECTIVE: Alert, oriented, well hydrated. Skin turgor normal. Healing 2 cm carbuncle of the left breast on the under side where skin rubs on skin with standing. Surrounding erythema with calor. No axillary adenopathy noted. Knee is normal to inspection and palpation without evidence of erythema, warmth, or discoloration. ROM is full. No ligamentous instability. Patellar apprehension negative. ASSESSMENT: 680.2 CARBUNCLE OF TRUNK (primary encounter diagnosis) Plan: SULFAMETHOXAZOLE-TRIMETHOPRIM 400-80 MG OR TABS Skin care reviewed and monitoring for resolution. Continue knee rehab exercises and protection of the knee cap area. Prn naprosyn and ice. documented in this encounter Nursing Notes 08/10/2004 1:00 PM CDT >> SIMONBARRERAMeliton Barry 08/10/04 1:16 pm Pt is here for a pimple on the outside of her left breast. She is also here for a recheck of her left knee. Questioned patient about current smoking habits. Pt. has never smoked. documented in this encounter Plan of Treatment Not on filedocumented as of this encounter Visit Diagnoses Diagnosis Carbuncle and furuncle of trunk - Primar y documented in this encounter Care Teams Manager Business Development Hospice Relationship Specialty Start Date End Date Jacquie Schmitt MD PCP - General 11/24/99 02/11/[address], [address] [place] [address] documented as of this encounter
--- OUTSIDE RECORDS SUMMARY | 2022-08-18 09:36 | XMS_ITS | Encounter Summary ---
:1945 Author Organization [facility] Address [address] [place] [address] Care Team Providers Name Role Phone Jacquie Schmitt MD Primary Care Provider Reason for Visit Reason Comments UTI c/o frequency, pressure x 1 day Encounter Details Date Type Department Care Team Description 02/09/2003 Office Visit [facility] Noah Wick [facility] Physicians MD Jeanmarie NOS (Primary Dx) [address] [facility] [address] XXX RETIRED XXX [address] [place], [place] [address] [address] [place], [place] [phone] [address] (Wo rk) Social History Tobacco Use Types Packs/Day Years Used Date Smoking Tobacco: Former Cigarettes Quit : 11/07/1995 Alcohol Use Standard Drinks/Week Comments No 0 (1 standard drink = 0.6 oz pure alcoho l) Sex Assigned at Date Recorded Female 10/17/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 documented as of this encounter Last Filed Vital Signs Vital Sign Reading Time Taken Comments Blood Pressure 178/84 02/09/2003 11:15 AM MEDICARE SALES EXECUTIVE Pulse 72 02/09/2003 11:15 AM MEDICARE SALES EXECUTIVE Temperature 36.4 ??C (97.6 ??F) 02/09/2003 11:15 AM MEDICARE SALES EXECUTIVE Respiratory Rate - - Oxygen Saturation - - Inhaled Oxygen Concentration - - Weight 95.3 kg (210 lb) 02/09/2003 11:15 AM MEDICARE SALES EXECUTIVE Height - - Body Mass Index 32.89 04/09/2002 10:15 AM CDT documented in this encounter Progress Notes 02/09/2003 11:15 AM MEDICARE SALES EXECUTIVE URIN TRACT INFECTION NOS [599.0] SUBJECTIVE: Shahnaz Phelps is an 57 year old female who presen ts with suspected urinary tract infection. Her symptoms began 2 days ago and include frequency. Predisposing factors: none Hx of previous UTI???s: rare Sexually active: no Meds as of 02/09/2003: TRIA MCINOLONE ACETONIDE (TOP) 0.1 % EX CREA apply bid RETIN-A MICRO 0.1 % EX GEL apply at bedtime PREMPRO 0.625-2.5 MG OR TABS 1 tab PO QD NASONEX 50 MCG/ACT NA SUSP 2 sprays each nostril Once daily for all ergies CLARITIN-D 24 HOUR 10-240 MG OR TB24 1 tab po QD (Once per day) as needed for allergy symptoms CITRUCEL FIBER LAXATIVE OR PACK 1 tbsp each day Review of patient's allergies indicates: Imidazo le Anti* hives Penicillins hives OBJECTIVE: BP 178/84 Temp 97.6 Temp Src: Oral Wt 210 lb s (95.255 kg) LMP Postmenopausal General appearance: healthy, alert and no distress Hydration: well hydrated CVA tenderness to percussion: absent Abdomen: rounded, normal bowel sounds. Tenderness: no ne Masses: none Organomegaly: none ASSESSMENT/PLAN: 599.0 URIN TRACT INFECTION NOS (primary encou nter diagnosis) Plan: URINALYSIS, ROUTINE SEPTRA DS 800-160 MG OR TABS, one bid, D: 14, R: 0 Pa tient was instructed to drink plenty of fluids, urinate frequently and to contact the office promptly should she notice fever greater than 102, increase in discomfort, skin rash, lack of improvementaft er 2 days of treatment, or the appearance of new symptoms. documented in this encounter Plan of Treatment Not on filedocumented as of this encounter Procedures Procedure Name Priority Date/Time Associated Diagnosis Comme nts ZZCL AFF CULTURE, Routine 02/10/2003 9:23 PM Urin Tract Infect ion Results for this URINE CDT Nos procedure are i n the results section. CL AFF URINALYSIS, Routine 02/09/2003 11:31 AM Urin Tract Infe ction Results for this ROUTINE MEDICARE SALES EXECUTIVE Nos procedure are i n the results section. documented in this encounter Results CULTURE, URINE (02/10/2003 9:23 PM CDT) athologist Signature Status FINAL [facility] Urine Voided <[id number] [place] Culture CFU/ML Comment: NO GROWTH Specimen (Source) Anatomical Location Collection Method / Collectio n Time Received Time / Laterality Volume 02/09/2003 Noah Wick MD LABORATORY Performing Organization Address City/[facility]/ZIP Code Phon e Number [facility] URINALYSIS, ROUTINE (02/09/2003 11:31 AM MEDICARE SALES EXECUTIVE) [facility] gist Method Time Signature Color Urine yellow [facility] Appearance Urine hazy [facility] Glucose Urine neg neg - neg [facility] mg/dL Bilirubin Urine neg neg - neg [facility] Ketones Urine 15mg/dL neg - neg [facility] mg/dL Specific [place] 1.020 [facility] Blood Urine large neg - neg [facility] pH Arterial 6.5 5.0 - 7.0 [facility] Albumin Urine 30mg/dL neg - neg [facility] mg/dL Urobilinogen 0.2 0.2 - 1.0 [facility] Urine EU/dL Nitrite Urine neg neg - neg [facility] Leukocyte neg neg - neg [facility] Esterase Wbc, Urine Micro 5-10 neg - 2 [facility] RBC Micro Urine 1/2 pkd neg - 2 [facility] field EP/HPF 5-8 [facility] Bacteria Urine moderate neg - neg [facility] Casts/LPF neg [facility] Miscellaneous occ [facility] Specimen (Source) Anatomical Collection Method Collection Time Re ceived Time Location / / Volume Laterality 02/09/2003 11:31 AM MEDICARE SALES EXECUTIVE Noah Wick MD LABORATORY Performing Organization Address City/State/ZIP Code Phon e Number [facility] documented in this encounter Visit Diagnoses Diagnosis Urinary tract infection, site not specif ied - Primary documented in this encounter Care Teams Maintenance Service Technician Relationship Specialty Start Date End Date Jacquie Schmitt MD PCP - General 11/24/99 02/11/[address], [address] [place] [address] documented as of this encounter
--- OUTSIDE RECORDS SUMMARY | 2022-08-18 09:36 | XMS_ITS | Encounter Summary ---
:1945 Author Organization [facility] Address [address] [place] [address] Care Team Providers Name Role Phone Bharti Guthrie MD Primary Care Provider Reason for Visit Reason Comments Wrist Pain Encounter Details Date Type Department Care Team Description 01/27/2004 Office Visit [facility] Bharti Guthrie TENOSY NOV HAND/WRIST Physicians NEC (Primary Dx) [address] [place] [address] [address] , [facility] [address] [address] [phone] Social History Tobacco Use Types Packs/Day Years Used Date Smoking Tobacco: Former Cigarettes Quit : 11/07/1995 Alcohol Use Standard Drinks/Week Comments No 0 (1 standard drink = 0.6 oz pure alcoho l) Sex Assigned at Date Recorded Female 10/17/2018 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 documented as of this encounter Last Filed Vital Signs Vital Sign Reading Time Taken Comments Blood Pressure 124/84 01/27/2004 11:15 AM UNSCRAMBLER Pulse 80 01/27/2004 11:15 AM UNSCRAMBLER Temperature 37.2 ??C (99 ??F) 01/27/2004 11:15 AM UNSCRAMBLER Respiratory Rate 12 01/27/2004 11:15 AM UNSCRAMBLER Oxygen Saturation - - Inhaled Oxygen Concentration - - Weight 95.3 kg (210 lb) 01/27/2004 11:15 AM UNSCRAMBLER Height 171.5 cm (5' 7.5) 01/27/2004 11:15 AM UNSCRAMBLER Body Mass Index 32.41 01/27/2004 11:15 AM UNSCRAMBLER documented in this encounter Progress Notes 01/27/2004 11:15 AM UNSCRAMBLER SUBJECTIVE: 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 NO injury. Unab le to wear a brace due to water and dye use. Has cataracts and requests a name of an Tar Leveler . OBJECTIVE: Alert, oriented, well hydrated. Skin turgor normal. The hands reveal normal motor, sens ory, vascular and tendon function. Minimal dorsal wrist pain with flexion and extension. No palpable deformity. Xray: neg ASSESSMENT: TENOSYNOV HAND/WRIST NEC [727.05] PLAN: Trial of Rehab stretches / exercises to begin immediately and given in writing with illustrations. NAPROSYN 500 MG OR TABS, 1 TABLET TWICE DAILY, D: 60, R: 0. Ice. Recheck at upcoming annual exam. Dr Cardona[facility] group and [facility] given. documented in this encounter Nursing Notes 01/27/2004 11:15 AM CST >> EVE SIMON 01/27/2004 11:32 am Patient has been having left wrist pain for about three months. She fells that her hand is swollen at times. Questioned patient about current smoking habits. Pt. has never smoked. documented in this encounter Plan of Treatment Not on filedocumented as of this encounter Procedures Procedure Name Priority Date/Time Associated Diagnosis Comme nts X-RAY WRIST 2 VIEWS Routine 01/28/2004 Tenosynov Hand/Wri st Results for this Nec procedure are i n the results section . documented in this encounter Results X-RAY WRIST 2 VW (01/28/2004) Anatomical Region Laterality Modality Other Narrative 01/28/2004 REPORT OF OUTSIDE FILMS FROM: [facility] Patient: ??SHAHNAZ GLASGOW Case No: ?? Birthdate: [birth year] Referring Physician: BHARTI GUTHRIE Exam Date: 01-27-04 Exam: 4 VIEW RIGHT WRIST CLINICAL DATA: Wrist pain. Negative exam. KEILY SHOEMAKER M.D./lisa D: 01-27-04/T: 01-28-04 Bharti Guthrie MD GENERAL IMAGING documented in this encounter Visit Diagnoses Diagnosis Other tenosynovitis of hand and wrist - Primary documented in this encounter Care Teams Non Licensed Operator Relationship Specialty Start Date End Date Bharti Guthrie MD PCP - General 11/24/99 02/11/14 [address] , [facility] [address] [place] [address] documented as of this encounter
--- OUTSIDE RECORDS SUMMARY | 2022-08-18 09:36 | XMS_ITS | Encounter Summary ---
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 documented as of this encounter Last Filed Vital Signs Vital Sign Reading Time Taken Comments Blood Pressure 130/80 03/17/2004 9:39 AM CDT Pulse 72 03/17/2004 9:39 AM CDT Temperature 37 ??C (98.6 ??F) 03/17/2004 9:39 AM CDT Respiratory Rate 12 03/17/2004 9:39 AM CDT Oxygen Saturation - - Inhaled Oxygen Concentration - - Weight 92.5 kg (204 lb) 03/17/2004 9:39 AM CDT Height 171.5 cm (5' 7.5) 03/17/2004 9:39 AM CDT Body Mass Index 31.48 03/17/2004 9:39 AM CDT documented in this encounter Progress Notes 03/17/2004 9:15 AM CDT SUBJECTIVE: Shahnaz Phelps is an 58 year old postmenopausal woman who presents for annual obstetrics gynecology md exam. Menopause at age 49. No bleeding, spotting, or discharge noted. Estrogen replacement therapy: none currently, has taken in past SAMANTA exposure: no History of abnormal Pap smear: no Family history of uterine or ovarian cancer: yes, mother age 90 Regular self breast exam: Yes History of abnormal mammogram: no Family history of breast cancer: no History of abnormal lipids: no Review of patient's past medical history indicates: ACNE NEC POSTMENOPAUSAL HORMONAL REPLACMT RHINITIS DUE TO POLLEN Review of patient's family history indicates: Cancer Brother Comment: colon Review of patient's past surgical history indicates: COLONOSCOPY & POLYPECTOMY COLONOSCOPY & POLYPECTOMY COLONOSCOPY & POLYPECTOMY 2000 COLONOSCOPY & POLYPECTOMY 2002 Comment: Dr Bonita AOGSTO CATARACT EXTRACAP,INSERT LENS 03/10/04 Comment: right Meds as of 03/17/2004: CALCIUM 600 + D 600-200 MG-IU OR TABS Review of the patient's allergies finds: Imidazole Antifungals hives Penicillins hives Tobacco Use: Quit Packs/Day: Years: Quit date: 11/07/1995 Alcohol Use: No Review Of Systems Ears/Nose/Throat: negative Respiratory: negative Cardiovascular: negative Gastrointestinal: negative Genitourinary: negative OBJECTIVE: BP 130/80 Pulse 72 Temp (Src) 98.6 (Oral) Ht 5' 7.5 (1.72m) Wt 204 lbs (92.5kg) LMP Postmenopausal General appearance: healthy, alert, no distress, cooperative and smiling Skin: Skin color, texture, turgor normal. No rashes or lesions., positives: acne face with right check pearly lesion suspicious for basal cell Ears: negative Nose/Sinuses: Nares normal. Septum midline. [...] normal. Bimanual and rectovaginal normal., positive findings:vaginal mucosa atrophy ASSESSMENT: Satisfactory annual obstetrics gynecology md exam PLAN: Return fo pre-op for left cataract. To plastic surgeon for facial lesion removal. Dx: 1) Pap smear, mammogram 2) Lipids at appropriate intervals Rx: Total calcium intake of 1500 mgm/day, vitamin D 400-800IU/day and a regular weight bearing exerciseprogram for prevention of osteoporosis is recommended treatment at this time. PE: Reviewed health maintenance including diet, regular exercise, estrogen replacement and periodic exams. documented in this encounter Nursing Notes 03/17/2004 9:15 AM CDT >> EVE SIMON 03/17/04 9:18 am Patient is here for full physical exam and pap. Patient is currently fasting. documented in this encounter Plan of Treatment Not on filedocumented as of this encounter Procedures Procedure Name Priority Date/Time Associated Diagnosis Comme nts BFP SEND-OUT Routine 03/26/2004 11:46 Gynecologic Results for this MAMMOGRAM AM CDT Examination procedure are in Screening Mal the results Neop-Breast,Unspec section. HCL URINALYSIS Routine 03/17/2004 9:20 AM Gynecologic Results for this NONAUTO W/O SCOPE CDT Examination procedure are in BFP the results section. C PAP HANDLING FEE Routine 03/17/2004 9:17 AM Gynecologic CDT Examination ZZCL AFF THIN LAY Routine 03/17/2004 12:00 Gynecologic Result s for this PAP,DIAG W/HPV AM CDT Examination procedure are in REFLEX the results section. documented in this encounter Results BFP SEND-OUT MAMMOGRAM (03/26/2004 11:46 AM CDT) Anatomical Region Laterality Modality Other Narrative 03/26/2004 11:46 AM CDT ? S U B U R B A N ?I M A G I N G ?S I - [facility] ?S I - [place] ?S I - [place] ?S I - [place] ?Patient: PEE SHAHNAZ ?Home phone: ? [phone] ? Work phone: ? [place] ?[place] ?[phone] ?Dept No: [id number] ?Acc #: ?? [id number] ?Site: ?BM ?: 1945 ?? Age: 58 Year s ?Sex: F ?SSN: ?Requesting Clinic: ?[facility] ?Requesting Physician: Ruben Schmitt ? Exam:BILATERAL SCREENING MAMMOGRAM ? Exam Date:03/23/2004 ? Breast symptoms: ??None. ? Previous mammography: ??Compar haile with SI 04/16/03 and 03/27/01, ? there is no change from previo us mammography. ? Breast parenchyma: ??Heterogen eously dense. ? IMAGING IMPRESSION: ??ACR SEB GORY 1. ?? NEGATIVE, NO EVIDENCE OF ? MALIGNANCY. ? Exam results letter mailed to patient. ?Page 1 ? Dictated By:ALLYN Holt , KRYSTA Raphael ? Trans Intls:JH ? Tech Intls:MAS ? Dept No: [id number] ?? Jacquie Schmitt MD GENERAL IMAGING URINALYSIS NONAUTO W/O SCOPE (03/17/2004 9:20 AM CDT) athologist Signature Glucose Urine neg mg/dL [facility] INTERNAL Albumin Urine neg neg - neg [facility] INTERNAL mg/dL Jacquie Schmitt MD LABORATORY Performing Organization Address City/State/ZIP Code Phon e Number [facility] INTERNAL THIN LAY PAP,DIAG W/HPV REFLEX (03/17/2004 12:00 AM CDT) athologist Signature Unlabelled DNR [facility] Source [facility]NR [facility] LMP [facility] Clinical [facility] History Comment: POST MENOPAUSAL. Therapy [facility] Last Pap Diagnosis WITHIN NORMAL LIMITS [facility] PAP Date [facility]NR [facility] Prev Bx Dx DNR [facility] Prev Bx Date DNR [facility] Addl Hx Info [facility]NR [facility] Statement of Adequacy [facility] Comment: UNSATISFACTORY, SPECIMEN PROCESSED AND E XAMINED BUT UNSATISFACTORY FOR EVALUATION OF EPITHEL IAL ABNORMALITY BECAUSE OF: SCANT CELLULARITY General Categorization DNR [facility] C [facility] Descriptive Diagnosis DNR [facility] Comment: BASED ON THIN PREP PAP TEST RESULT, HPV REFLEX TEST NOT PERFORMED. Recommendations [facility] Comment: CONSIDER REPEAT RADIO HOST CYTOLOGY . [facility] Comment: GYNECOLOGICAL CYTOLOGY IS A SCREENING MO OCEDURE SUBJECT TO BOTH FALSE NEGATIVE AND FALSE POSITIVE RESULTS. IT IS MOST RELIABLE WHEN A SATI SFACTORY SAMPLE IS OBTAINED ON A REGULAR REPETITI VE BASIS. RESULTS MUST BE INTERPRETED IN THE DINH XT OF HISTORIC AND CURRENT CLINICAL INFORMATIO N. THIS TEST WAS PERFORMED AT [facility] [address], [address] [place], [place] ?? [address] PHONE NUMBERS FOR CYTOLOGY INQUIRIES, IN CLUDING SLIDE REQUESTS: ?? 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
--- OUTSIDE RECORDS SUMMARY | 2022-08-18 09:36 | XMS_ITS | Encounter Summary ---
:1945 Author Organization [place] Address [address] [place] [address] Care Team Providers Name Role Phone Jacquie Schmitt MD Primary Care Provider Reason for Visit Reason Comments UTI Encounter Details Date Type Department Care Team Description 02/25/2003 Office Visit [facility] Jacquie Schmitt, VAGINI TIS NOS (Primary Dx); Physicians URINARY FREQUENCY; [address], [place] [address] [place] [address] Social History Tobacco Use Types Packs/Day Years Used Date Smoking Tobacco: Former Cigarettes Quit : 11/07/1995 Alcohol Use Standard Drinks/Week Comments No 0 (1 standard drink = 0.6 oz pure alcoho l) Sex Assigned at Date Recorded Female 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 documented as of this encounter Last Filed Vital Signs Vital Sign Reading Time Taken Comments Blood Pressure 150/90 02/25/2003 9:30 AM CDT Pulse 76 02/25/2003 9:30 AM CDT Temperature 37.1 ??C (98.7 ??F) 02/25/2003 9:30 AM CDT Respiratory Rate 12 02/25/2003 9:30 AM CDT Oxygen Saturation - - Inhaled Oxygen Concentration - - Weight 96.2 kg (212 lb) 02/25/2003 9:30 AM CDT Height 172.7 cm (5' 8) 02/25/2003 9:30 AM CDT Body Mass Index 32.23 02/25/2003 9:30 AM CDT documented in this encounter Progress Notes 02/25/2003 9:30 AM CDT SUBJECTIVE: Shahnaz Phelps is an 57 year old woman who presents with vaginitis. Symptoms includ e discharge described as white and thin, local irritation and burning. Onset of symptoms 2 weeks ago, unchanged since. Originally felt like she had a UTI and saw Dr Wick who put her on Sulfa antibiot ic with some improvement in urinary symptoms. UC negative Predisposing factors: antibiotics Hx of pr evious vaginitis: rare Sexually active: yes, single partner, contraception - none Meds as of 02/26/20 03: TRIAMCINOLONE ACETONIDE (TOP) 0.1 % EX CREA apply bid RETIN-A MICRO 0.1 % EX GEL apply at bedtime PREMPRO 0.625-2.5 MG OR TABS 1 tab PO QD NASONEX 50 MCG/ACT NA SUSP 2 sprays each nostril Once daily for allergies CLARITIN-D 24 HOUR 10-240 MG OR TB24 1 tab po QD (Once per day) asneeded for allergy symptoms CITRUCEL FIBER LAXATIVE OR PACK 1 tbsp each day Review of patient's allergies indicates: Imidazole Anti* hives Penicillin hives Tobacco Use: Quit Packs/Day: Years: Quit date: 11/07/1995 Alcohol Use: No OBJECTIVE: BP 150/90 Pulse 76 Temp 98.7 Temp Src: Oral Ht 5' 8 (1.727m) Wt 212 lbs (96.163 kg) LMP Postmenopausal Pelvic: positive f indings: vaginal discharge - copious, white and thick ASSESSMENT: Vaginitis - bacterial vaginosis wi th yeast PLAN: 1) METRONIDAZOLE VAGINAL 0.75 % VA GEL, 1 application at Bedtime x5 nights, D: 1, R: 0 followed by TERAZOL 3 80 MG VA SUPP, 1 SUPPOSITORY AT BEDTIME, D: 3, R: 0 2) Recheck if symptom s persist, worsen, or new symptoms develop. Annual PE 04/09. PE: Discussed vaginitis, modes of transm ission, and rationale for treatment. documented in this encounter Nursing Notes 02/25/2003 9:30 AM CDT >> EVE SIMON 02/25/2003 9:44 am Patient is here for a recheck of her UTI. She feels like she may still have the UTI. Questioned patient about current smoking habits. Pt. quit smoking some time ago. documented in this encounter Plan of Treatment Not on filedocumented as of this encounter Procedures Procedure Name Priority Date/Time Associated Diagnosis Comme nts HCL WET PREP Routine 02/25/2003 10:20 AM Vaginitis Nos Results for this CDT procedure are i n the results section. CL AFF URINALYSIS, Routine 02/25/2003 9:54 AM Urinary Frequenc y Results for this ROUTINE CDT procedure are i n the results section. documented in this encounter Results (ABNORMAL) WET PREP (02/25/2003 10:20 AM CDT) [facility] Method Time Signature Trichomonas neg [facility] Vaginals yeast cells pos [facility] PMNs Wet Prep moderate [facility] Clue cells pos [facility] Bacteria Urine moderate [facility] pH Arterial 4.5 (A) 5.0 - 7.0 [facility] INTERNAL Specimen (Source) Anatomical Collection Method Collection Time Re ceived Time Location / / Volume Laterality 02/25/2003 10:20 AM CDT Jacquie Schmitt MD LABORATORY Performing Organization Address City/State/ZIP Code Phon e Number [facility] INTERNAL (ABNORMAL) URINALYSIS, ROUTINE (02/25/2003 9:54 AM CDT) [facility] Method Time Signature Color Urine yellow [facility] Appearance Urine clear [facility] Glucose Urine neg neg - neg [facility] mg/dL Bilirubin Urine neg neg - neg [facility] Ketones Urine neg neg - neg [facility] mg/dL Specific [place] 1.015 [facility] INTERNAL Blood Urine neg neg - neg [facility] pH Arterial 8.0 (A) 5.0 - 7.0 [facility] Albumin Urine neg neg - neg [facility] mg/dL Urobilinogen 0.2 0.2 - 1.0 [facility] INTER[facility] Urine EU/dL Nitrite Urine neg neg - neg [facility] Leukocyte neg neg - neg [facility] Esterase Wbc, Urine Micro 0-1 neg - 2 [facility] RBC Micro Urine neg neg - 2 [facility] EP/HPF 3-5 [facility] INTER[facility] Bacteria Urine very neg - neg [facility] slight Casts/LPF neg [facility] Miscellaneous occ [facility] INTERNAL Specimen (Source) Anatomical Collection Method Collection Time Re ceived Time Location / / Volume Laterality 02/25/2003 9:54 AM CDT Jacquie Schmitt MD LABORATORY Performing Organization Address City/State/ZIP Code Phon e Number [facility] documented in this encounter Visit Diagnoses Diagnosis Vaginitis and vulvovaginitis, unspecifie d - Primary Urinary frequency Candidiasis of vulva and vagina documented in this encounter Care Teams Electrician Station Assistant Relationship Specialty Start Date End Date Jacquie Schmitt MD PCP - General 11/24/99 02/11/14 [address] , [address] [place] [address] documented as of this encounter
--- OUTSIDE RECORDS SUMMARY | 2022-08-18 09:36 | XMS_ITS | Encounter Summary ---
:1945 Author Organization [facility] Address [address] [place] [address] Care Team Providers Name Role Phone Bharti uGthrie MD Primary Care Provider Encounter Details Date Type Department Care Team Description 07/27/[address] 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 >> EVE Hunter Jul 28, 2004 3:16 PM Pt stopped by and she will try the 25mg for a couple days and then go up to 50mg if needed. She will call later this week and let me know how it is going. >> BHARTI GUTHRIE TueJul 27, 2004 8:58 PM Can try a week of Vioxx samples ( 25 to 50 mgm daily if available.) >> EVE SIMON TueJul 27, 2004 3:16 PM Pt called and states that the Naproxen is not really helping. She is wondering if there is anythingelse that she can use. She will call me tomorrow afternoon to see if we have anything to help her. documented in this encounter Plan of Treatment Not on filedocumented as of this encounter Visit Diagnoses Not on filedocumented in this encounter Care Teams Plaster Tender Relationship Specialty Start Date End Date Bharti Guthrie MD PCP - General 11/24/99 02/11/[address], [address] [place] [address] documented as of this encounter
--- OUTSIDE RECORDS SUMMARY | 2022-08-18 09:36 | XMS_ITS | Encounter Summary ---
:1945 Author Organization [place] Address [address] [place] [address] Care Team Providers Name Role Phone Jacquie Schmitt MD Primary Care Provider Reason for Visit Reason Onset Date Comments Results 04/01/2005 Encounter Details Date Type Department Care Team Description 04/01/2005 Telephone [facility]sicians Jacquie Schmitt MD Results [address] [place] [address] [address] [place] [address] [address] [place] [address] [place], [place] [phone] (Wo rk) Social History Tobacco Use Types Packs/Day Years Used Date Smoking Tobacco: Former Cigarettes Quit : 11/07/1995 Alcohol Use Standard Drinks/Week Comments No 0 (1 standard drink = 0.6 oz pure alcoho l) Sex Assigned at Date Recorded Female 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 Telephone Encounter - Nella Menjivar - 04/01/2005 9:47 AM CDT Left message for patient to call clinic. Please read the note below. Telephone Encounter - Holger Ramos - 04/01/2005 7:36 AM CDT To Nella: Abnormal mammogram, pt needs additional views, Please call and make sure that pt has scheduled Thank you documented in this encounter Plan of Treatment Not on filedocumented as of this encounter Visit Diagnoses Not on filedocumented in this encounter Care Teams Wheel Braider Relationship Specialty Start Date End Date Jacquie Schmitt MD PCP - General 11/24/99 02/11/14 [address] [id number] documented as of this encounter
--- OUTSIDE RECORDS SUMMARY | 2022-08-18 09:36 | XMS_ITS | Encounter Summary ---
:1945 Author Organization [facility] Address [address] [place] [address] Care Team Providers Name Role Phone Jacquie Schmitt MD Primary Care Provider Reason for Visit Reason Comments Musculoskeletal Problem Granulator Exam Encounter Details Date Type Department Care Team Description 03/08/2005 Office Visit [facility] Jacquie Schmitt ROUTIN E ROLLER MAN EXAMINATION (Primary Dx); Physicians SPRAIN OF KNEE & LEG NOS; [address], SCREENING MAL NEOP-BREAST,UN SPEC; [address] MALIG NEOPLASM SKIN FACE NEC; [place], [place] ABSENCE OF MENSTRUATION; [phone] ACNE NEC [phone] Social History Tobacco Use Types Packs/Day Years Used Date Smoking Tobacco: Former Cigarettes Quit : 11/07/1995 Alcohol Use Standard Drinks/Week Comments No 0 (1 standard drink = 0.6 oz pure alcoho l) Sex Assigned at Date Recorded Female 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 documented as of this encounter Last Filed Vital Signs Vital Sign Reading Time Taken Comments Blood Pressure 114/74 03/08/2005 9:15 AM CDT Pulse 80 03/08/2005 9:15 AM CDT Temperature 36.8 ??C (98.2 ??F) 03/08/2005 9:15 AM CDT Respiratory Rate 12 03/08/2005 9:15 AM CDT Oxygen Saturation - - Inhaled Oxygen Concentration - - Weight 94.3 kg (208 lb) 03/08/2005 9:15 AM CDT Height 170.2 cm (5' 7) 03/08/2005 9:15 AM CDT Body Mass Index 32.58 03/08/2005 9:15 AM CDT documented in this encounter Progress Notes OskarNilesha - 03/08/2005 9:43 AM CDT SUBJECTIVE: Shahnaz Glasgow is an 59 year old postmenopausal woman who 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 Menopause at age 49. No bleeding, spotting, or discharge noted. Estrogen replacement therapy: stopped 2 years ago after 4 years SAMANTA exposure: no History of abnormal Pap smear: no Family history of uterine or ovarian cancer: yes - mother age 90 ovarian Regular self breast exam: Yes History of abnormal mammogram: no Family history of breast cancer: no History of abnormal lipids: no 1 187649 PMH Previous Medical History: ACNE NEC POSTMENOPAUSAL HORMONAL REPLACEMENT TX RHINITIS DUE TO POLLEN 1 763184 PMH 1 38 FAMHX Family History: Cancer Brother Comment: colon 1 38 FAMHX 1 [id number] PSH Review of patient's past surgical history indicates: COLONOSCOPY & POLYPECTOMY COLONOSCOPY & POLYPECTOMY COLONOSCOPY & POLYPECTOMY 2000 COLONOSCOPY & POLYPECTOMY 2002 Comment: Dr Bonita AGOSTO CATARACT EXTRACAP,INSERT LENS 03/10/04 Comment: right SURENDRA CATARACT EXTRACAP,INSERT LENS 04/10 Comment: left Dr Robind1 [id number] PSH 1 832714 MED 1. CALCIUM 600 + D 600-200 MG-UNIT OR TABS Route: Sig: Dispense: 0 Refill: 10000711 MED 1 8 ALLERGY Imidazole Antifunga* Comment: hives Penicillins Comment: hives 1 8 ALLERGY 1 672903 SOCX Tobacco Use: Quit Quit date: 11/07/1995 Alcohol Use: No 1 [id number] SOCX Review Of Systems Ears/Nose/Throat: negative Respiratory: negative Cardiovascular: negative Gastrointestinal: negative Genitourinary: negative Ext; left knee catching with walking or going from a sitting to standing position. No swelling. OBJECTIVE: 1 [id number] VS BP 114/74 Pulse 80 Temp (Src) 98.2 (Oral) Resp 12 Ht 5' 7 (1.70m) Wt 208 lbs(94.3kg) LMP Postmenopausal1 899703 VS General appearance: healthy, alert, no distress, cooperative, [...] normal., positive findings: vaginal mucosa atrophy Ext: Knee is normal to inspection and palpation without evidence of erythema, warmth, or discoloration. ROM is full. No ligamentous instability. Patellar apprehension negative. ASSESSMENT: V72.31 ROUTINE ROLLER MAN EXAMINATION (primary encounter diagnosis) Plan: URINALYSIS NONAUTO W/O SCOPE, THIN LAY PAP,DIAG W/HPV REFLEX, SPECIMEN HANDLING,DR OFF->LAB, HEMOGLOBIN, VENOUS COLLECTION, BFP SEND-OUT MAMMOGRAM Total calcium intake of 1500 mgm/day, vitamin D 400-800IU/day and a regular weight bearing exerciseprogram for prevention of osteoporosis is recommended treatment at this time. Discussed stress testing after knee sorted out. 844.9 SPRAIN OF KNEE & LEG NOS Plan: MRI JOINT LEG await results V76.10 SCREENING MAL NEOP-BREAST,UNSPEC Plan: BFP SEND-OUT MAMMOGRAM patient will schedule 173.3 MALIG NEOPLASM SKIN FACE NEC Plan: appointment with Dr Hopper this month 626.0 ABSENCE OF MENSTRUATION Plan: Total calcium intake of 1500 mgm/day, vitamin D 400-800IU/day and a regular weight bearing exercise program for prevention of osteoporosis is recommended treatment at this time. 706.1 ACNE NEC Plan: RETIN-A MICRO 0.04 % EX GEL, FINACEA 15 % EX GEL reviewed ROSACEA diagnosis Dx: 1) Pap smear, mammogram 2) Lipids at appropriate intervals PE: Reviewed health maintenance including diet, regular exercise, estrogen replacement and periodic exams. documented in this encounter Nursing Notes 03/08/2005 9:15 AM CDT >> EVE SIMON 03/08/2005 10:03 am Telephone call made to schedule Shahnaz Glasgow for the following: MRI of Left knee Date: 03/15/05 Time: 10:45a.m. Place[facility] Eve >> EVE SIMON 03/08/2005 9:36 am Pt is here for a full physical exam and pap. Patient is fasting Questioned patient about current smoking habits. Pt. quit smoking some time ago. CLASSIFICATION OF OVERWEIGHT AND OBESITY BY BMI Obesity Class BMI(kg/m2) Underweight < 18.5 Normal 18.5-24.9 Overweight 25.0-29.9 OBESITY I 30.0-34.9 II 35.0-39.9 EXTREME OBESITY III >40 Patient's BMI 32.58 http://hin.nhlbi.nih.gov/menuplanner/menu.cgi documented in this encounter Plan of Treatment Not on filedocumented as of this encounter Procedures Procedure Name Priority Date/Time Associated Diagnosis Comme nts BFP SEND-OUT Routine 04/01/2005 Routine Granulator Results for thi s MAMMOGRAM Examination procedure are in Screening Mal the results Neop-Breast,Unspec section. ZZCL AFF THIN LAY Routine 03/11/2005 3:00 PM Routine Granulator Resu lts for this PAP,DIAG W/HPV CDT Examination procedure are in REFLEX the results section. HC MRI LOWER Routine 03/09/2005 Sprain Of Knee & Leg Results for this EXTREMITY JNT W/O Nos procedure are in CONT the results section. ZZCL AFF HEMOGLOBIN Routine 03/08/2005 9:59 AM Routine Granulator Re sults for this CDT Examination procedure are i n the results section. HC VENOUS COLLECTION Routine 03/08/2005 9:43 AM Routine Granulator CDT Examination HCL URINALYSIS Routine 03/08/2005 9:34 AM Routine Granulator Results for this NONAUTO W/O SCOPE CDT Examination procedure are in BFP the results section. documented in this encounter Results MAMMOGRAM (04/01/2005) Anatomical Region Laterality Modality Other Narrative 04/01/2005 ?S U B U R B A N ?I M A G I N G ?S I - [place] ?S I - [place] ?S I - [place] ?S I - [place] ?Patient: TANNA GLASGOWN ?Home phone: ? [phone] ? Work phone: ? [place] ?[place] ?[phone] ?Dept No: [id number] ?Acc #: ?? [id number] ?Site: ?BM ?: 1945 ?? Age: 59 Year s ?Sex: F ?SSN: ?[facility]ing [facility]: [facility] ?Requesting Physician: Ruben Schmitt ? Exam:BILATERAL SCREENING MAMMOGRAM ?Exam Date:03/29/2005 ? Breast symptoms: None. ? Previous mammography: ??Compar haile with SI 03/23/04 and 03/27/01. ? Breast parenchyma: ??Heterogen eously dense. ? Comments: There is an evolving cluster of microcalcifications deep ? in the 12 o'clock area of the left breast. Focal magnification and ? compression imaging is recomme nded for additional evaluation. ? Small, intramammary lymph node s are seen far posterior and inferior ? at the lower margin of the lef t pectoral muscle margin in the MLO ? view. ? IMAGING IMPRESSION: ??ACR SEB GORY 0. ??INCOMPLETE: NEED ADDITIONAL ? IMAGING EVALUATION, RECOMMEND ADDITIONAL MAMMOGRAPHIC VIEWS, WE ? WILL ATTEMPT TO ARRANGE THIS W ITH THE PATIENT. ? Images were reviewed with the aid of CAD (R2 v5.3). ? Exam results letter mailed to patient. ?Page 1 ? Dictated By:ALLYN Holt , KRYSTA Raphael ? Trans Intls:KF ? Tech Intls:CK ?Dept No: [id number] ?? Jacquie Schmitt MD GENERAL IMAGING THIN LAY PAP,DIAG W/HPV REFLEX ([id number]) (03/11/2005 3:00 PM CDT) [facility] gist Method Time Signature Report status FINAL [facility] [place] Clinical SEE NOTE [facility] [place] Comment: Postmenopausal PARA 1 1 LMP NONE GIVEN [facility] [place] Last Pap Diagnosis WNL [facility] [place] Prev Bx Dx NONE GIVEN [facility] [place] Source none given [facility] [place] Statement of Adequacy SEE NOTE [facility] [place] Comment: Satisfactory for evaluation. Endocervical/transformation zone compone nt present. General Categorization NOT AVAIL. [facility] [place] Descriptive Diagnosis SEE NOTE [facility] [place] Comment: Negative for intraepithelial le miky or malignancy. Infection NOT AVAIL. [facility] [place] Comment SEE NOTE [facility] [place] Comment: ? Based on the cytology result, reflex Hig h/Int Risk HPV DNA Probe testing is not perfor med. ?? Fixture Designer: SEE NOTE [facility] [place], [place] Comment: DORA ROBINS(ASCP) Review Fixture Designer SEE NOTE [facility] [place], [place] Comment: DORA GORDON(ASCP) Pathologist NOT AVAIL. [facility] [place] See Note SEE NOTE [facility] [place], [place] Comment: GYNECOLOGICAL CYTOLOGY IS A SCREENING [place] OCEDURE SUBJECT TO BOTH FALSE NEGATIVE AND FALSE POSITIVE RESULTS. ??IT IS MOST RELIABLE WHEN A SATISFACTORY SAMPLE IS OBTAINED ON A REG ULAR REPETITIVE BASIS. ??RESULTS MUST BE INTE RPRETED IN THE CONTEXT OF HISTORIC AND CURRENT C LINICAL INFORMATION. NO COLLECTION DATE RECEIVED. WE HAVE USE D THE DATE THE SPECIMEN WAS RECEIVED BY IS LABORATORY THE COLLECTION DATE. IF IS IS INCORRECT, PLEASE CONTACT CLIENT [employer]. PHONE NUMBER: [phone] Test performed at [facility] - [place] [address] [place] [address] [facility] [address] [place], [place] ??[address] Director: SAMY ROLDAN MD Specimen (Source) Anatomical Collection Method Collection Time Re ceived Time Location / / Volume Laterality 03/08/2005 8:54 PM CDT Narrative [facility] [place] - 3:00 PM CDT Additional Result Information GENERAL CATEGORIZATION: RESULT NOT AV AILABLE INFECTION: RESULT NOT AVAILABLE PATHOLOGIST: RESULT NOT AVAILABLE Jacquie Schmitt MD LABORATORY Performing Organization Address City/State/ZIP Code Phon e Number [facility] [address] [place] [address] [place], [place] [address] [place], [place] KNEE (03/09/2005) Anatomical Region Laterality Modality Other Narrative 03/09/2005 ??S U B U R B A N ?I M A G I N G ?S I - [place] ?S I - [place] ?S I - [place] ?S I - [place] ?Patient: ULISSES GLASGOWILYN ?Home phone: ? [phone] ? Work phone: ? [place] ?[place] ?[address] ?Dept No: [id number] ?Acc #: ?? [id number] ?Site: ?BM ?: 1945 ?? Age: 59 Year s ?Sex: F ?SSN: ?Requesting Clinic: [facility] ?Requesting Physician: Ruben Schmitt ? Exam:MRI KNEE wo/CONTRAS T ? Exam Date:03/08/2005 ? HISTORY: ??Knee pain. ? TECHNIQUE: ??Sagittal dual ech o T2 images, coronal T1, axial and ? coronal fat suppressed T2-weig hted sequences were performed. ? FINDINGS ? MENISCI: ??Lateral meniscus is intact. ??There is abnormal signal in ? the posterior horn medial meni scus, especially near the notch ? suspicious for a tear posterio r horn medial meniscus near the ? notch. ??There is intramenisca l degeneration as well in the ? posterior horn medial meniscus . ? CRUCIATE LIGAMENTS: ??Intact. ? COLLATERAL SUPPORTING STRUCTUR ES: ??Medial and lateral collateral ? ligaments are intact. ??The il iotibial and biceps femoris tendon are ? intact. ??Popliteus tendon and muscle are intact. ? OSSEOUS STRUCTURES AND CARTILA GINOUS SURFACES: ??There are advanced ? medial compartment articular d egenerative changes with subchondral ? edema as a result on both side s of the medial compartment. Lateral ? compartment articular cartilag e appears intact. Patellofemoral ? articular cartilage appears in tact. ? ADDITIONAL FINDINGS: ??No evid ence of joint effusion. ??The patella ? is properly located in the fem oral sulcus. ??Patellar retinacula as ? well as the patellar and quadr iceps tendons are intact. No ? popliteal cystic lesions. ? IMPRESSION: ? 1. ?? Findings consistent with posterior horn medial meniscus tear, ?likely degenerative. ? ?It is located near the notch. There is ?adjacent intrameniscal degeneration. ? 2. ?? Prominent medial compart ment articular degenerative changes ?with prominent loss of articular cartilage and subchondral ?edema. ?Page 1 ? Dictated By:ANEUDY MONSON M.D.. ? Trans Intls:DP ? Tech Intls:KE ?Dept No: [id number] ?? Jacquie Schmitt MD SPECIAL IMAGING STUDIES HEMOGLOBIN (03/08/2005 9:59 AM CDT) athologist Signature Hemoglobin 13.4 12 - 16 [facility] GM/DL Jacquie Schmitt MD LABORATORY Performing Organization Address City/State/ZIP Code Phon e Number [facility] URINALYSIS NONAUTO W/O SCOPE [14965.000] (03/08/2005 9:34 AM CDT) P athologist Signature Glucose Urine neg mg/dL [facility] Albumin Urine neg neg - neg [facility] mg/dL Jacquie Schmitt MD LABORATORY Performing Organization Address City/State/ZIP Code Phon e Number [facility] documented in this encounter Visit Diagnoses Diagnosis Routine gynecological examination - Prim elke Sprain and strain of unspecified site of knee and leg Breast screening, unspecified Other and unspecified malignant neoplasm of skin of other and unspecified parts of face Absence of menstruation Other acne documented in this encounter Care Teams Obiee Obia Solution Architect Relationship Specialty Start Date End Date Jacquie Schmitt MD PCP - General 11/24/99 [address] , [facility] [address] [place] [address] documented as of this encounter
--- OUTSIDE RECORDS SUMMARY | 2022-08-18 09:36 | XMS_ITS | Encounter Summary ---
:1945 Author Organization [facility] Address [address] [place] [address] Care Team Providers Name Role Phone Jacquie Schmitt MD Primary Care Provider Reason for Visit Reason Comments Vaginal Problem c/o itching Encounter Details Date Type Department Care Team Description 12/18/[address] [facility] Jacquie Schmitt, DERMAT ITIS NOS Physicians (Primary Dx) [address] [place] [phone] Social History Tobacco Use Types Packs/Day Years Used Date Smoking Tobacco: Former Cigarettes Quit : 11/07/1995 Alcohol Use Standard Drinks/Week Comments Not Asked 0 (1 standard drink = 0.6 oz pure alcoho l) Sex Assigned at Date Recorded Female 10/17/2018 7:14 PM HEADER UP documented as of this encounter Last Filed Vital Signs Vital Sign Reading Time Taken Comments Blood Pressure 120/72 12/18/2001 11:00 AM HEADER UP Pulse - - Temperature 36.7 ??C (98.1 ??F) 12/18/2001 11:00 AM HEADER UP Respiratory Rate - - Oxygen Saturation - - Inhaled Oxygen Concentration - - Weight 93 kg (205 lb) 12/18/2001 11:00 AM HEADER UP Height 172.1 cm (5' 7.75) 12/18/2001 11:00 AM HEADER UP Body Mass Index 31.4 12/18/2001 11:00 AM HEADER UP documented in this encounter Progress Notes 12/18/2001 11:00 AM HEADER UP SUBJECTIVE: Jina Phelps is an 56 year old woman who presents with vaginitis. Symptoms includel ocal irritation and vulvar itching. Onset of symptoms 2 month ago, unchanged since. Predisposing fac tors: none Hx of previous vaginitis: rare Sexually active: no Meds as of 12/18/2001: RETIN-A MICRO GE L 0.1 % EX, apply at bedtime, D: 60 grams, R: 3 PREMPRO TABS 0.625-2.5 MG OR, 1 tab PO QD, D: 32, R: 11 NASONEX SUSP 50 MCG/ACT NA, 2 sprays each nostril Once daily for allergies, D: 2, R: 11 CLARITIN-D 24 HOUR TB24 10-240 MG OR, 1 tab po QD (Once per day) as needed for allergy symptoms, D: 30, R: 11 Review of patient's allergies indicates: Imidazole Anti* hives Penicillin hives Tobacco Use : Quit Packs/Day: Years: Quit date: 11/07/1995 Alcohol Use: Not Asked O BJECTIVE: BP 120/72 Temp 98.1 Temp Src: Oral Ht 5' 7.75 (1.721m) Wt 205 lbs (92.987 kg) LM P Postmenopausal Pelvic: External genitalia and vagina normal. Bimanual and rectovaginal normal.Oute r left groin fold eczematous area with excoriation and peeling. No satellite lesions. FRANCIS: neg ASSES SMENT: DERMATITIS NOS [692.9] PLAN: 1) TRIAMCINOLONE ACETONIDE (TOP) CREA 0.1 % EX, apply bid, D: 30 grams, R: 0. Remove all products and see about elastic irritation from clothing as a contact possi bility. Keep a diary of reaction. 2) Recheck if symptoms persist, worsen, or new symptoms develop. documented in this encounter Plan of Treatment Not on filedocumented as of this encounter Visit Diagnoses Diagnosis Contact dermatitis and other eczema, due to unspecified cause - Primary documented in this encounter Care Teams Wildlife Forensic Geneticist Relationship Specialty Start Date End Date Jacquie Schmitt MD PCP - General 11/24/99 02/11/[address], [facility] [address] [place] [address] documented as of this encounter
--- OUTSIDE RECORDS SUMMARY | 2022-08-18 09:36 | XMS_ITS | Encounter Summary ---
:1945 Author Organization [facility] Address [address] [place] [address] Care Team Providers Name Role Phone Jacquie Schmitt MD Primary Care Provider Reason for Referral - Closed Specialty Diagnoses / Procedures Referred By Contact Refer red To Contact Orthopedics Diagnoses Osteoarthrosis, unspecified whether generalized or localized, unspecified site Pain in joint, lower leg Jacquie Schmitt MD Schaffhausen, James, MD [address], [facility] [address] [place] [address] [place] [address] [place] [address] Fax: Referral ID Status Reason Start Date Expiration Date Visits Requ ested Visits Authorized [id number] Closed 09/28/2004 11/06/2011 1 1 T OPERATIONS COORDINATOR Reason for Visit Reason Comments Musculoskeletal Problem Encounter Details Date Type Department Care Team Description 09/28/2004 Office Visit [facility] Jacquie Schmitt, OSTEOA RTHROS NOS- UNSPEC ; Physicians JOINT PAIN-LOWER LEG [address], [address] [place] [address] [place] [id number] Social History Tobacco Use Types Packs/Day Years Used Date Smoking Tobacco: Former Cigarettes Quit : 11/07/1995 Alcohol Use Standard Drinks/Week Comments No 0 (1 standard drink = 0.6 oz pure alcoho l) Sex Assigned at Date Recorded Female 10/17/2018 7:14 PM 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 documented as of this encounter Last Filed Vital Signs Vital Sign Reading Time Taken Comments Blood Pressure 120/80 09/28/2004 12:00 AM 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 Pulse 72 09/28/2004 12:00 AM 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 Temperature 36.9 ??C (98.4 ??F) 09/28/2004 12:00 AM 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 Respiratory Rate 12 09/28/2004 12:00 AM 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 Oxygen Saturation - - Inhaled Oxygen Concentration - - Weight 92.1 kg (203 lb) 09/28/2004 12:00 AM 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 Height 170.8 cm (5' 7.25) 09/28/2004 12:00 AM 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 Body Mass Index 31.56 09/28/2004 12:00 AM 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 documented in this encounter Progress Notes 09/28/2004 11:00 AM 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 SUBJECTIVE: Here to recheck her right knee. See 07/11 visit. Started the rehab exercises and continues to have pain, now with locking of the knee and pain such that her knee gives out with certain movements. Today she is unable to reproduce that pain. The knee pain remains anterior and under the knee cap. OBJECTIVE: Knee is normal to inspection and palpation without evidence of erythema, warmth, or discoloration. ROM is full. 1+ PREPATELLAR bursitis. No ligamentous instability. Patellar apprehension negative. Xray reviewed from last visit with spur ASSESSMENT: 715.90 OSTEOARTHROS NOS-UNSPEC 719.46 JOINT PAIN-LOWER LEG Plan: CONSULT TO ORTHOPEDICS for evaluation and consideration of injection or arthroscopy exam. Ice to anterior knee. Yariel PERAZA.Will await their evaluation. documented in this encounter Nursing Notes 09/28/2004 11:00 AM CST >> EVE SIMON 09/28/04 11:22 am Pt is still having left knee pain. Questioned patient about current smoking habits. Pt. has never smoked. documented in this encounter Plan of Treatment Not on filedocumented as of this encounter Procedures Procedure Name Priority Date/Time Associated Diagnosis Comme [facility] ORTHOPEDICS ADULT REFERRAL Routine 09/29/2004 OSTEO ARTHROS NOS-UNSPEC Joint Pain-Lower Leg documented in this encounter Results CONSULT TO ORTHOPEDICS (09/29/2004) Narrative This result has an attachment that is no t available. Jacquie Schmitt MD REFERRAL documented in this encounter Visit Diagnoses Diagnosis OSTEOARTHROS NOS-UNSPEC Osteoarthrosis, unspecified whether gene ralized or localized, unspecified site Pain in joint, lower leg documented in this encounter Care Teams Electrical Technician Relationship Specialty Start Date End Date Jacquie Schmitt MD PCP - General 11/24/99 02/11/14 [address] [address] documented as of this encounter
--- OUTSIDE RECORDS SUMMARY | 2022-08-18 09:36 | XMS_ITS | Encounter Summary ---
:1945 Author Organization [facility] Address [address] [place] [address] Care Team Providers Name Role Phone Jacquie Shcmitt MD Primary Care Provider Reason for Visit Reason Comments Ear Problem Encounter Details Date Type Department Care Team Description 06/29/2003 Office Visit [place] Noah Ventura ACUTE PHA RYNGITIS; Physicians MD Jeanmarie ACUTE SEROUS OTITIS MEDIA [address] XXX RETIRED XXX [address] [place], [place] [address] [place], [place] [phone] (Wo rk) Social History Tobacco Use Types Packs/Day Years Used Date Smoking Tobacco: Former Cigarettes Quit : 11/07/1995 Alcohol Use Standard Drinks/Week Comments No 0 (1 standard drink = 0.6 oz pure alcoho l) Sex Assigned at Date Recorded Female 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 encounter Last Filed Vital Signs Vital Sign Reading Time Taken Comments Blood Pressure 162/80 06/29/2003 11:15 AM CDT Pulse 72 06/29/2003 11:15 AM CDT Temperature 36.7 ??C (98 ??F) 06/29/2003 11:15 AM CDT Respiratory Rate - - Oxygen Saturation - - Inhaled Oxygen Concentration - - Weight 93.4 kg (206 lb) 06/29/2003 11:15 AM CDT Height 171.5 cm (5' 7.5) 06/29/2003 11:15 AM CDT Body Mass Index 31.79 06/29/2003 11:15 AM CDT documented in this encounter Progress Notes 06/29/2003 11:15 AM CDT ACUTE PHARYNGITIS [462] ACUTE SEROUS OTITIS MEDIA [381.01] SUBJECTIVE: Shahnaz Phelps is an 57 year old female who presents for evaluation and treatment of sore throat. Symptoms include ear pain bilaterally, plugged sensation bilaterally, sore throat and swollen glands. Onset 2 weeks, graduall y worsening since that time. Known Strep exposure: none. Meds as of 06/29/2003: MEDROL (MATT) 4 MG OR TABS take as directed RETIN-A MICRO 0.1 % EX GEL apply at bedtime PENLAC 8 % EX SOLN apply daily as directed CITRUCEL FIBER LAXATIVE OR PACK 1 tbsp each day NASONEX 50 MCG/ACT NA SUSP 2 sprays each nos tril Once daily for allergies CLARITIN-D 24 HOUR 10-240 MG OR TB24 1 tab po QD (Once per day) as need ed for allergy symptoms Review of the patient's allergies finds: Imidazole Antifungals hives Penicillins hives Toba tobacco cloth reclaimer Use: Quit Packs/Day: Years: Quit date: 11/07/1995 Alcohol Use: No OBJECTIVE: BP 162/80 Pulse 72 Temp (Src) 98 (Oral) Wt 206 lbs (93.4kg) LMP Postmenopa usal General appearance: healthy, alert and no distress Ears: R TM - air/fluid interface, L TM - norm al: no effusions, no erythema, and normal landmarks Nose: normal Oropharynx: mild erythema, exudates present and throat culture taken Neck: normal, supple and small, benign anterior cervical nodes bilat erally Lungs: normal and clear to auscultation Heart: regular rate and rhythm and no murmurs, clicks, or gallops ASSESSMENT: Acute pharyngitis - r/o Strep RSS negative Dx: Non-strep pharyngitis ACU TE SEROUS OTITIS MEDIA [381.01] Rx: 1) Symptomatic treatment with fluids, vaporizer, acetaminophen. 2) Recheck as needed for persistence, worsening, appearance of new symptoms. Sudafed for the ser ous otitis. Call or return to clinic prn if these symtoms worsen, fail to improve as anticipated, o r if new symptoms develop. documented in this encounter Nursing Notes 06/29/2003 11:15 AM CDT >> EVELYN VANEGAS 06/29/2003 11:12 am Pt states that she has nasal congestion, plugged ears documented in this encounter Plan of Treatment Not on filedocumented as of this encounter Procedures Procedure Name Priority Date/Time Associated Diagnosis Comme nts HCL STREP A RAPID Routine 06/29/2003 Acute Pharyngitis Resul ts for this procedure are in the resu lts section. documented in this encounter Results STREP A RAPID (06/29/2003) P athologist Signature Rapid Strep A neg [facility] INTERNAL Screen Specimen (Source) Anatomical Location Collection Method / Collectio n Time Received Time / Laterality Volume 06/29/2003 Noah Wick MD LABORATORY Performing Organization Address City/State/ZIP Code Phon e Number [facility] INTERNAL documented in this encounter Visit Diagnoses Diagnosis Acute pharyngitis Acute serous otitis media documented in this encounter Care Teams Openstack Developer Relationship Specialty Start Date End Date Jacquie Schmitt MD PCP - General 11/24/99 02/11/14 [address] , [facility] [address] [place] [address] documented as of this encounter
--- OUTSIDE RECORDS SUMMARY | 2022-08-18 09:36 | XMS_ITS | Encounter Summary ---
:1945 Author Organization [facility] Address [address] [place] [address] Care Team Providers Name Role Phone Jacquie Schmitt MD Primary Care Provider Reason for Referral Specialty Diagnoses / Procedures Referred By Contact Refer red To Contact [facility] [address] [place] [address] [address] [place] [address] Phone: [phone] Fax: [phone] Referral ID Status Reason Start Date Expiration Date Visits Requ ested Visits Authorized Encounter Details Date Type Department Care Team Description 04/17/2004 Orders Only [place] [facility], Provider SCAN ARIN RESULTS Physicians (Primary Dx) [address] [place] [address] Social History Tobacco Use Types Packs/Day Years Used Date Smoking Tobacco: Former Cigarettes Quit : 11/07/1995 Alcohol Use Standard Drinks/Week Comments No 0 (1 standard drink = 0.6 oz pure alcoho l) Sex Assigned at Date Recorded 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 Provider Abstract REFERRAL documented in this encounter Visit Diagnoses Diagnosis SCANNING RESULTS - Primary documented in this encounter Care Teams Observer Electrical Prospecting Relationship Specialty Start Date End Date Jacquie Schmitt MD PCP - General 11/24/99 02/11/14 [address] , [facility] [address] [place] [address] documented as of this encounter
--- OUTSIDE RECORDS SUMMARY | 2022-08-18 09:36 | XMS_ITS | Encounter Summary ---
:1945 Author Organization [facility] Address [address] [place] [address] Care Team Providers Name Role Phone Jacquie Schmitt MD Primary Care Provider Reason for Referral - Closed Specialty Diagnoses / Procedures Referred By Contact Refer red To Contact Orthopedics Diagnoses Pain in joint, ankle and foot Trigger finger (acquired) Jacquie Schmitt MD Teynor, Walter Eldridge MD [address], [place] [address] [facility] [place] [address] [place] [address] Phone: Fax: Referral ID Status Reason Start Date Expiration Date Visits Requ ested Visits Authorized [id number] Closed 04/09/2002 11/06/2011 1 1 - Closed Specialty Diagnoses / Procedures Referred By Contact Refer red To Contact Surgery Diagnoses Asymptomatic varicose veins Jacquie Schmitt MD Benn, Ian Knox MD [address], [place] [address] [facility] [address] [place] [address] [place] [address] Fax: Referral ID Status Reason Start Date Expiration Date Visits Requ ested Visits Authorized [id number] Closed 04/09/2002 11/06/2011 1 1 Reason for Visit Reason Comments 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 Encounter Details Date Type Department Care Team Description 04/09/2002 Office Visit [facility] Jacquie Schmitt, GYNECO LOGIC EXAMINATION (Primary Dx); Physicians POSTMENOPAUSAL HORMONAL REPLACMT; [address], TRIGGER FINGER; [address] [place] [address] JOINT PAIN-ANKLE; [place], [place] VARICOSE VE IN OF LEG NOS; [id number] ACNE NEC; [phone] DERMATITIS NOS; (Work) ABSENCE OF MENSTRUATION; [phone] ALLERGIC RHINIT IS NOS; (Fax) PERS HX COLONIC POLYPS Social History Tobacco Use Types Packs/Day Years Used Date Smoking Tobacco: Former Cigarettes Quit : 11/07/1995 Alcohol Use Standard Drinks/Week Comments No 0 (1 standard drink = 0.6 oz pure alcoho l) Sex Assigned at Date Recorded 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 documented as of this encounter Last Filed Vital Signs Vital Sign Reading Time Taken Comments Blood Pressure 133/76 04/09/2002 10:15 AM CDT Pulse 84 04/09/2002 10:15 AM CDT Temperature 36.9 ??C (98.5 ??F) 04/09/2002 10:15 AM CDT Respiratory Rate 12 04/09/2002 10:15 AM CDT Oxygen Saturation - - Inhaled Oxygen Concentration - - Weight 93.4 kg (206 lb) 04/09/2002 10:15 AM CDT Height 170.2 cm (5' 7) 04/09/2002 10:15 AM CDT Body Mass Index 32.26 04/09/2002 10:15 AM CDT documented in this encounter Progress Notes 04/09/2002 10:15 AM CDT Addended by: LIN GUILLEN on: 04/19/2002,3:49 PM Comment: releasing mammo Modules accepted: Asael contreras Summary, Progress Notes SUBJECTIVE: Shahnaz Glasgow is an 56 year old postmenopausal wom an who 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 Menopause at age 49. No bleeding, spotting, or discharge noted. Estrogen replacement therapy: continuous daily oral regimen SAMANTA exposure: no History of abnormal Pa p smear: no Family history of uterine or ovarian cancer: yes - mother age 90 Regular self breast exam: yes History of abnormal mammogram: no Family history of breast cancer: no History of abnormal lipid s: no Review of patient's past medical history indicates: ACNE NEC POSTMENOPAUSAL HORMONAL REPLACMT RHINITIS DUE TO POLLEN Review of patient's family history indicates: Cancer Brother Comment: colon Review of patient's past surgical history i ndicates: COLONOSCOPY & POLYPECTOMY COLONOSCOPY & POLYPECTOMY Meds as of 04/09/2002: TRIAMCINOLONE ACETONIDE (TOP) 0.1 % EX CREA, apply bid, D: 30 grams, R: 0 RETIN-A MICRO 0.1 % EX GEL, apply at bedtime, D: 60 grams, R: 3 PREMPRO 0.625 -2.5 MG OR TABS, 1 tab PO QD, D: 32, R: 11 NASONEX 50 MCG/ACT NA SUSP, 2 sprays each nostril Once sean ly for allergies, D: 2, R: 11 CLARITIN-D 24 HOUR 10-240 MG OR TB24, 1 tab po QD (Once per day) as nee ded for allergy symptoms, D: 30, R: 11 Review of patient's allergies indicates: Imidazole Anti* hi ves Penicillin hives Tobacco Use: Quit Packs/Day: Years: Quit date: 0 11/07/1995 Alcohol Use: No Review Of Systems Ears/Nose/Throat: allergies in the fall Resp iratory: negative Cardiovascular: asabove Gastrointestinal: colon polyps Genitourinary: negative OB JECTIVE: BP 152/76 Temp 98.5 Temp Src: Oral Ht 5' 7 (1.702m) Wt 206 lbs (93.441 kg) LMP Po stmenopausal General appearance: healthy, alert, no distress Skin: Skin color, texture, turgor normal . No rashes or lesions., positives: acne Ears: negative Nose/Sinuses: Nares normal. Septum midline. M ucosa normal. No drainage or sinus tenderness. Oropharynx: Lips, mucosa, and tongue normal. Teeth and gums normal. Neck: Neck supple. No adenopathy. Thyroid symmetric, normal size,, Carotids without bru its. Lungs: negative, Percussion normal. Good diaphragmatic excursion. Lungs clear Heart: negative, P WA normal. No lifts, heaves, or thrills. RRR. No murmurs, clicks gallops or rub Breasts: Inspection n egative. No nipple discharge or bleeding. No masses. Abdomen: Abdomen soft, non-tender. BS normal. No masses, organomegaly, positive findings: obese Pelvic: External genitalia and vagina normal. Bimanua l and rectovaginal normal. Ext: Left thumb extensor tendon hesitation and popping on extension. painf ul over the tendon sheath. Left ankle spider veins. No swelling. 5/5 motor strength in dorsiflexion, plantar flexion, inversion and eversion. Normal vascular exam. Bilateral varicose veins in the greate r saphenous distribution of the lower legs. 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 Reviewed ankle Xray from . CONSULT TO ORTHOPEDICS [3335] Order #: [id number] Class: External referral for ankle and thumb. Varicose vein vs spider veins reviewed. CONSULT TO GENERAL SURGERY [1449] Order #: [id number] Class: External referral Colonoscopy n ext year. Weight loss encouraged. Dx: 1) Pap smear, mammogram 2) Lipids at appropriate intervals Rx: TRIAMCINOLONE ACETONIDE (TOP) 0.1% EX CREA, apply bid, D: 30 grams, R: 0 RETIN-A MICRO 0.1 % EX GEL, apply at bedtime, D: 60 grams, R: 3 PREMPRO 0.625-2.5 MG OR TABS, 1 tab PO QD, D: 32, R: 11 NASO NEX 50 MCG/ACT NA SUSP, 2 sprays each nostril Once daily for allergies, D: 2, R: 11 CLARITIN-D 24 JESSICA R 10-240 MG OR TB24, 1 tab po QD (Once per day) as needed for allergy symptoms, D: 30, R: 11 CITRUCEL FIBER LAXATIVE OR PACK, 1 tbsp each day, D: 0, R: 0 PE: Reviewed health maintenance including diet , regular exercise, estrogen replacement and periodicexams. 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 CL AFF GLUCOSE, Routine 04/09/2002 11:09 Gynecologic Results for this FASTING AM CDT Examination procedure are in Postmenopausal the results Hormonal Replacmt section. ZZCL AFF HEMOGLOBIN Routine 04/09/2002 11:08 Gynecologic Resu lts for this AM CDT Examination procedure are in Postmenopausal the results Hormonal Replacmt section. HC VENOUS COLLECTION Routine 04/09/2002 10:53 Gynecologic AM CDT Examination Postmenopausal Hormonal Replacmt HCL URINALYSIS Routine 04/09/2002 10:34 Gynecologic NONAUTO W/O SCOPE AM CDT Examination BFP Postmenopausal Hormonal Replacmt C PAP HANDLING FEE Routine 04/09/2002 10:32 Gynecologic AM CDT Examination Postmenopausal Hormonal Replacmt [facility] SEND-OUT Routine 04/09/2002 Gynecologic Results for brendan s MAMMOGRAM Examination procedure are in Postmenopausal the results Hormonal Replacmt section. HCL PAP SMEAR Routine 04/09/2002 12:00 Gynecologic Results fo r this AM CDT Examination procedure are in Postmenopausal the results Hormonal Replacmt section. documented in this encounter Results CONSULT TO ORTHOPEDICS (05/21/2002) Jacquie Schmitt MD REFERRAL CONSULT TO GENERAL SURGERY (05/21/2002) Narrative This result has an attachment that is no t available. Jacquie Schmitt MD REFERRAL A.M.A. LIPID PANEL (04/10/2002 3:21 AM CDT) [facility] Method Time Signature Comments DNR [facility] Triglycerides 119 <150 MG/DL [facility] Cholesterol 196 <200 MG/DL [facility] Cholesterol 15 PERCENTILE [facility] Percentile HDL Cholesterol 51 >39 MG/DL [facility] LDL Cholesterol 121 <130 MG/DL [facility] Calculated Comment: LDL CHOLESTEROL (MG/DL) GOALS [...] ??<160 ? >159 ?>189 ?(160-189: ?[facility]) PLEASE NOTE NEW REFERENCE RANGE. EFFECTI VE DATE: 02/26/2002 Cholesterol/HDL Ratio 3.8 <5.0 [facility] Specimen (Source) Anatomical Location Collection Method / Collectio n Time Received Time / Laterality Volume 04/09/2002 Jacquie Schmitt MD LABORATORY Performing Organization Address City/[facility]/ZIP [facility] Phon e Number [facility] GLUCOSE, FASTING (04/09/2002 11:09 AM CDT) P athologist Signature Glucose 105 60 - 120 [facility] INTERNAL mg/dL Specimen (Source) Anatomical Collection Method Collection Time Re ceived Time Location / / Volume Laterality 04/09/2002 11:09 AM CDT Jacquie Schmitt MD LABORATORY Performing Organization Address City/[facility]/ZIP [facility] Phon e Number [facility] INTERNAL HEMOGLOBIN (04/09/2002 11:08 AM CDT) P athologist Signature Hemoglobin 12.0 12 - 16 [facility] GM/DL Specimen (Source) Anatomical Collection Method Collection Time Re ceived Time Location / / Volume Laterality 04/09/2002 11:08 AM CDT Jacquie Schmitt MD LABORATORY Performing Organization Address City/[facility]/ZIP [facility] Phon e Number [facility] INTERNAL URINALYSIS NONAUTO W/O SCOPE (04/09/2002 10:34 AM CDT) P athologist Signature Glucose Urine neg - neg [facility] mg/dL Albumin Urine neg - neg [facility] mg/dL Specimen (Source) Anatomical Collection Method Collection Time Re ceived Time Location / / Volume Laterality 04/09/2002 10:34 AM CDT Jacquie Schmitt MD LABORATORY Performing Organization Address City/[facility] Phon e Number [facility] INTERNAL PAP SMEAR (04/09/2002 12:00 AM CDT) Patholo gist Method Time Signature Unlabelled DNR [facility] Source VAG,CERV,END [facility] OCERV LMP POSTMENO [facility] Clinical [facility] History Comment: Therapy DNR [facility] Last Pap Diagnosis WITHIN NORMAL LIMITS [facility] PAP Date [id number] [facility] Prev Bx Dx DNR [facility] Prev Bx Date DNR [facility] Addl Hx Info [facility] Statement of Adequacy [facility] Comment: SATISFACTORY FOR INTERPRETATION ENDOCERVICAL COMPONENT (COLUMNAR AND/OR METAPLASTIC) IS PRESENT General Categorization DNR [facility] Descriptive Diagnosis [facility] Comment: WITHIN NORMAL LIMITS Recommendations [facility] . [facility] Comment: PAP SMEARS ARE SUBJECT TO BOTH FALSE NE GATIVE AND FALSE POSITIVE RESULTS EVIDENCED BY DATA PUBLISHED IN THE MEDICAL LITERATURE. ??YOUR PATIE NT'S RESULT SHOULD BE INTERPRETED IN THIS CONTEXT, TOGETHER WITH THE PATIENT'S HISTORY AND CLINICAL FIND INGS. TESTING LOCATION ?? THIS TEST WAS PERFORMED AT [facility] ?? [address] [place] [address] ?? [place], [place] ?? [address] ?? PHONE NUMBERS FOR CYTOLOGY INQUIRIES , INCLUDING ?? SLIDE REQUESTS: ?EX T [id number] Specimen (Source) Anatomical Location Collection Method / Collectio n Time Received Time / Laterality Volume 04/09/2002 04/09/2002 Jacquie Schmitt MD LABORATORY Performing Organization Address City/[facility] Phon e Number [facility] SEND-OUT MAMMOGRAM (04/09/2002) Anatomical Region Laterality Modality Other Narrative 04/09/2002 ?[facility] ?[facility] ? Phone: ? Phone: ? Fax: ? Fax: ?[facility] ? [facility] ?Phone: ?Phone: ? Fax: ?Fax: ? A Service of [facility] ?[facility] ? Patient: JOSE MARIA GLASGOW ? Dept No: [id number] ?[id number] ? Acc No: [id number] ?[place] ?[place] ? [id number] ?: 1945 ?? Age: 56 Year s ?Sex: F ? SSN: ?Home phone: ?Cl[facility]: [facility] ?Requesting Physician: Ruben Schmitt ?Exam Date: 04/16/2002 ?Exam: BILATERAL SCREENING MAMMO GRAM ?Breast symptoms: ??None. ?Previous mammography: ??Compari son with SI 03/27/01. ?Breast parenchyma: ??Heterogene ously dense. ?IMAGING IMPRESSION: ??ACR CATEG ORY 1. ?? NEGATIVE, NO EVIDENCE OF ?MALIGNANCY. ?Page 1 ? Dictated By:KRYSTA GRUBER M.D. ? Trans Intls:TJ ? Tech Intls:PB ?Dept No: [id number] ?? Jacquie Schmitt MD GENERAL IMAGING documented in this encounter Visit Diagnoses Diagnosis Gynecological examination - Primary Need for prophylactic hormone replacemen t therapy (postmenopausal) Trigger finger (acquired) Pain in joint, ankle and foot Asymptomatic varicose veins Other acne Contact dermatitis and other eczema, due to unspecified cause Absence of menstruation Allergic rhinitis, cause unspecified Personal history of colonic polyps documented in this encounter Care Teams Pillar Worker Relationship Specialty Start Date End Date Jacquie Schmitt MD PCP - General 11/24/99 02/11/[address], [facility] [address] [place] [address] documented as of this encounter
--- OUTSIDE RECORDS SUMMARY | 2022-08-18 09:36 | XMS_ITS | Encounter Summary ---
:1945 Author Organization [place] Address [address] [place] [address]. 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 Cataract right eye. 2. High cornea astigmatism. POST-OPERATIVE DIAGNOSIS: 1. Cataract right eye. 2. High cornea astigmatism. OPERATION: Phacoemulsification with posterior chamber intraocular lens, right eye. ANESTHESIA: Topical. ESTIMATED BLOOD LOSS: Trace. PATIENT IDENTIFICATION: Elizabeth Glasgow is a 58-year-old female who has noted progressive decreased vision in her right eye. After evaluation she was found to have cataract as the primary cause of her 20/60 vision. After a complete discussion of the risks and benefits of the procedure was undertaken with the patient, she elected to have her cataract removed. Because of her high degree of myopia and astigmatism, a toric lens will be used to minimize their effect. No guarantees were given. PROCEDURE: Topical anesthetic was given in the preoperative area. This consisted of a 50/50 mixture of 2% Lidocaine and 0.5% bupivacaine. The patient was then brought to the operating suite where she was prepped and draped in the usual sterile fashion, including Betadine solution on the eye. A 2.85 mm keratome was used to make a temporal clear corneal incision. A paracentesis tract was placed through which 1% nonpreserved Lidocaine was instilled. The anterior chamber was then filled with Viscoat. A circular continuous capsulorrhexis was fashioned with a cystitome and Utrata forceps. Hydrodissection of the lens nucleus was performed, and this was phacoemulsified using a supracapsular technique. The remaining cortex was removed using automated irrigation and aspiration. The posterior capsule was then filled with Provisc, and a foldable Staar model [id number], 17.5 diopter lens was placed into the capsular bag with 2.0 diopters of astigmatism correction placed at the 90 degree meridian using an external corneal marker. The Provisc was then used using the automated irrigation and aspiration tip. Betadine and Vigamox were placed over the operative eye as was a clear shield. The patient returned to the recovery area in stable condition. [id number] EZEQUIEL ACHARYA MD [place]: Document: [id number] [place], [place] Name: SHAHNAZ GLASGOW LCN: SDS DSC: 03/10/2004 [place], [place] Name: MR#: : Procedure Date: PEE SHAHNAZ M [id number] 1945 03/10/2004 Doctor: EZEQUIEL ACHARYA MD OPERATIVE REPORT Page 1 of 2 documented in this encounter Plan of Treatment Not on filedocumented as of this encounter Visit Diagnoses Not on filedocumented in this encounter Care Teams Continuity Person Relationship Specialty Start Date End Date Jacquie Schmitt MD PCP - General 11/24/99 02/11/[address], [facility] [address] [place] [address] documented as of this encounter
--- OUTSIDE RECORDS SUMMARY | 2022-08-18 09:36 | XMS_ITS | Encounter Summary ---
:1945 Author Organization [place] Address [address] [place] [address] Care Team Providers Name Role Phone Jacquie Schmitt MD Primary Care Provider Reason for Visit Reason Comments Pre-Op Exam Encounter Details Date Type Department Care Team Description 04/06/2005 Office Visit [facility] Jacquie Schmitt, INT DE RANGEMENT KNEE NOS (Primary Dx); Physicians MD PREOP EXAM OTHER SPECIFIED [address] [place] [address] Social History Tobacco Use Types Packs/Day Years Used Date Smoking Tobacco: Former Cigarettes Quit : 11/07/1995 Alcohol Use Standard Drinks/Week Comments No 0 (1 standard drink = 0.6 oz pure alcoho l) Sex Assigned at Date Recorded Female 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 documented as of this encounter Last Filed Vital Signs Vital Sign Reading Time Taken Comments Blood Pressure 128/84 04/06/2005 1:50 PM CDT Pulse 72 04/06/2005 1:50 PM CDT Temperature 36.7 ??C (98 ??F) 04/06/2005 1:50 PM CDT Respiratory Rate 12 04/06/2005 1:50 PM CDT Oxygen Saturation - - Inhaled Oxygen Concentration - - Weight 94.3 kg (208 lb) 04/06/2005 1:50 PM CDT Height 170.2 cm (5' 7) 04/06/2005 1:50 PM CDT Body Mass Index 32.58 04/06/2005 1:50 PM CDT documented in this encounter Progress Notes OskarJacquie - 04/06/2005 2:19 PM CDT Pre Op Exam: April 06, 2005 [facility] [address] [place] [address]. [place] [address] Shahnaz Phelps is an 59 year old female here for preop physical. BP 128/84 Pulse 72 Temp (Src) 98 (Oral) Resp 12 Ht 5' 7 (1.70m) Wt 208 lbs (94.3kg) LMPPostmenopausal This is at the request of Dr. Arevalo and is being sent to him and to anesthesia. Smoker:No Alcohol/wk: 1/week PRESENT HISTORY: Reason for admission: Left knee meniscal tear Onset of Illness: Last June 2004 Type of Surgery Anticipated: arthroscopic Type of Anesthesia Anticipated: General Medications: 1. RETIN-A MICRO 0.04 % EX GEL Route: Apply externally Sig:at bedtime, Dr Hopper Dispense: Refill: 0 2. FINACEA 15 % EX GEL Route: Apply externally Sig:apply in the am, Dr Hopper Dispense: 0 Refill: 0 3. CALCIUM 600 + D 600-200 MG-UNIT OR TABS Route: Sig: Dispense: 0 Refill: 0 Any Aspirin within 10 days? No Family History: Family History: Cancer Brother Comment: colon No family history of malignant hyperthermia. No family history of bleeding disorder. 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 No masses, lesions, tenderness or [...] soft, non-tender. BS normal. No masses, organomegaly Genitals: Deferred Extremities: Extremities normal. No deformities, edema, or skin discoloration. marked varicose veins Musculoskeletal: negative Skin: positives: acne Neurological: negative, Gait normal. Reflexes normal and symmetric. Sensation grossly WNL. Diabetic Instructions Given for Pre-Op Insulin: NOT APPLICABLE Lab: H.0 Impression: 717.9 INT DERANGEMENT KNEE NOS (primary encounter diagnosis) V72.83 PREOP EXAM OTHER SPECIFIED MD Signature: Lenin Schmitt M.D. Copies are given to the patient and copies faxed to the hospital. documented in this encounter Nursing Notes 04/06/2005 1:50 PM CDT >> EVE SIMON 04/06/2005 1:56 pm Pt. is here for a Pre-Op physical. Procedure - Left Knee Surgery Dr. Stephen Pinto Date - 04/09/05 Time - 7:30a.m. Place - [facility] Questioned patient about current smoking habits. Pt. [...] Name Priority Date/Time Associated Diagnosis Comme nts ZZC Routine 04/06/2005 2:32 PM Int Derangement Knee ELECTROCARDIOGRAM, CDT Nos COMP W/READ Preop Exam Other Specified ZZCL AFF HEMOGLOBIN Routine 04/06/2005 2:27 PM Int Derangement Knee Results for this CDT Nos procedure are in Preop Exam Other the results Specified section. HC VENOUS COLLECTION Routine 04/06/2005 2:20 PM Int Derangemen t Knee CDT Nos Preop Exam Other Specified documented in this encounter Results ELECTROCARDIOGRAM, COMP W/READ (04/06/2005 2:32 PM CDT) Narrative This result has an attachment that is no t available. Jacquie Schmitt MD EKG TECHNICAL Performing Organization Address City/[facility]/ZIP Code Phon e Number [facility] INTERNAL HEMOGLOBIN (04/06/2005 2:27 PM CDT) P athologist Signature Hemoglobin 13.0 12 - 16 [facility] INTERNAL GM/DL Jacquie Schmitt MD LABORATORY Performing Organization Address City/[facility]/ZIP [facility] Phon e Number [facility] INTERNAL documented in this encounter Visit Diagnoses Diagnosis Unspecified internal derangement of knee - Primary Other specified pre-operative examinatio n documented in this encounter Care Teams Supplies Packer Relationship Specialty Start Date End Date Jacquie Schmitt MD PCP - General 11/24/99 02/11/14 [address] , [facility] [address] [place] [address] documented as of this encounter
--- OUTSIDE RECORDS SUMMARY | 2022-08-18 09:36 | XMS_ITS | Encounter Summary ---
:1945 Author Organization [facility] Address [address] [place] [address] Care Team Providers Name Role Phone Jacquie Schmitt MD Primary Care Provider Reason for Visit Reason Comments Pre-Op Exam Encounter Details Date Type Department Care Team Description 04/02/2004 Office Visit [facility] Jacquie Schmitt, SENILE CATARACT NOS (Primary Dx); Physicians PREOP EXAM OTHER SPECIFIED [address] , [address] [facility] [address] [place] [id number] Social History Tobacco Use Types Packs/Day Years Used Date Smoking Tobacco: Former Cigarettes Quit : 11/07/1995 Alcohol Use Standard Drinks/Week Comments No 0 (1 standard drink = 0.6 oz pure alcoho l) Sex Assigned at Date Recorded Female 10/17/2018 7: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 documented as of this encounter Last Filed Vital Signs Vital Sign Reading Time Taken Comments Blood Pressure 110/70 04/02/2004 3:28 PM CDT Pulse 84 04/02/2004 3:28 PM CDT Temperature 37.1 ??C (98.7 ??F) 04/02/2004 3:28 PM CDT Respiratory Rate 12 04/02/2004 3:28 PM CDT Oxygen Saturation - - Inhaled Oxygen Concentration - - Weight 92.5 kg (204 lb) 04/02/2004 3:28 PM CDT Height 170.2 cm (5' 7) 04/02/2004 3:28 PM CDT Body Mass Index 31.95 04/02/2004 3:28 PM CDT documented in this encounter Progress Notes 04/02/2004 3:15 PM CDT Pre Op Exam: April 02, 2004 [facility] [address] [place] [address]. [place] [address] Shahnaz Phelps is an 58 year old female here for preop physical. BP 110/70 Pulse 84 Temp (Src) 98.7 (Oral) Resp 12 Ht 5' 7 (1.70m) Wt 204 lbs (92.5kg) LMP Postmenopausal This is at the request of Dr. Oswald and is being sent to him and to anesthesia. [facility] Smoker:Yes: Quit 3 1/2 years ago Alcohol/wk: none PRESENT HISTORY: Reason for admission: cataract removal Onset of Illness: years Type of Surgery Anticipated: cataract lens removal left eye implant a lens Type of Anesthesia Anticipated: Local with MAC Medications: Meds as of 04/02/2004: CALCIUM 600 + D 600-200 MG-IU OR TABS Any Aspirin within 10 days? No Family History: Review of patient's family history indicates: Cancer Brother Comment: colon No family history of malignant hyperthermia. No family history of bleeding disorder. No history of Sleep Apnea Past Surgical History: Review of patient's past surgical history indicates: COLONOSCOPY & POLYPECTOMY COLONOSCOPY & POLYPECTOMY COLONOSCOPY & POLYPECTOMY 2000 COLONOSCOPY & POLYPECTOMY 2002 Comment: Dr Bonita AGOSTO CATARACT EXTRACAP,INSERT LENS 03/10/04 Comment: right Review of the patient's allergies finds: Imidazole Antifungals hives Penicillins hives Transfusion reactions: No prior transfusions Bleeding tendencies:No bleeding problems noted REVIEW OF SYSTEMS: Cardiovascular: NORMAL Respiratory: NORMAL Gastrointestinal: NORMAL Genitourinary: NORMAL PHYSICAL EXAM: General Appearance: healthy, alert, no distress, cooperative and smiling Head: Normocephalic. No masses, lesions, tenderness or abnormalities Eyes: normal and left cataract Ears: negative Nose: Nares normal Mouth: Oropharynx normal Neck: Neck supple. No adenopathy. Thyroid symmetric, normal size,, Carotids without bruits. Lymphatics: Cervical and inguinal nodes normal for age. Chest: Clear Breast: Not done. Heart:regular rate and rhythm and no murmurs, clicks, or gallops Lungs: negative, Percussion normal. Good diaphragmatic excursion. Lungs clear Abdomen: negative Genitals: Deferred Extremities: negative Musculoskeletal: negative Skin: negative Neurological: negative Diabetic Instructions Given for Pre-Op Insulin: NA Lab: H.3, 02/08 Impression: 366.10 SENILE CATARACT NOS (primary encounter diagnosis) V72.83 PREOP EXAM OTHER SPECIFIED MD Signature: Lenin Schmitt M.D. Copies are given to the patient and copies faxed to the hospital. documented in this encounter Nursing Notes 04/02/2004 3:15 PM CDT >> EVE SIMON 04/02/04 3:16 pm Pt. is here for a Pre-Op physical. Procedure - Left Eye Surgery - Date - 04/07/04 Time - 8:30a.m. Place - [facility] Questioned patient about current smoking habits. Pt. quit smoking some time ago. Patient states that she is also taking a one a day vitamin. documented in this encounter Plan of Treatment Not on filedocumented as of this encounter Visit Diagnoses Diagnosis Senile cataract, unspecified - Primary Other specified pre-operative examinatio n documented in this encounter Care Teams Mixer Whipped Topping Relationship Specialty Start Date End Date Jacquie Schmitt MD PCP - General 11/24/99 02/11/[address], [address] [place] [address] documented as of this encounter
--- OUTSIDE RECORDS SUMMARY | 2022-08-18 09:36 | XMS_ITS | Encounter Summary ---
:1945 Author Organization [facility] Address [address] [place] [address] Care Team Providers Name Role Phone Jacquie Schmitt MD Primary Care Provider Reason for Referral Therapeutic Procedure Only (Routine) - Closed Specialty Diagnoses / Procedures Referred By Contact Refer red To Contact Diagnoses Personal history of colonic polyps Jacquie Schmitt MD [facility] [address], [address] [place] [address] [address] [place] [address] Phone: [phone] Referral ID Status Reason Start Date Expiration Date Visits V isits Requested Authorized [id number] Closed Service Not 06/15/2001 06/15/2001 1 1 Available at Clinic Encounter Details Date Type Department Care Team Description 05/31/2001 Orders Only [facility] Jacquie Schmitt, PERS H X COLONIC POLYPS Physicians (Primary Dx) [address], [address] [place] [address] [phone] Social History Tobacco Use Types Packs/Day Years Used Date Smoking Tobacco: Former Cigarettes Quit : 11/07/1995 Alcohol Use Standard Drinks/Week Comments Not Asked 0 (1 standard drink = 0.6 oz pure alcoho l) Sex Assigned at Date Recorded Female 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 Jacquie Schmitt MD REFERRAL documented in this encounter Visit Diagnoses Diagnosis Personal history of colonic polyps - Christal noel documented in this encounter Care Teams Mechanical Equipment Sales Engineer Relationship Specialty Start Date End Date Jacquie Schmitt MD PCP - General 11/24/99 02/11/14 [address] , [facility] [address] [place] [address] documented as of this encounter
--- OUTSIDE RECORDS SUMMARY | 2022-08-18 09:36 | XMS_ITS | Encounter Summary ---
:1945 Author Organization [facility] Address [address] [place] [address] Care Team Providers Name Role Phone Bharti Guthrie MD Primary Care Provider Reason for Visit Reason Comments Pain Derm Problem Encounter Details Date Type Department Care Team Description 07/14/2004 Office Visit [facility] Bharti Guthrie, CHONDR OMALACIA PATELLAE (Primary Dx); Physicians OSTEOARTHROS NOS-UNSPEC [address] , [address] [place] [id number] Social History Tobacco Use Types Packs/Day Years Used Date Smoking Tobacco: Former Cigarettes Quit : 11/07/1995 Alcohol Use Standard Drinks/Week Comments No 0 (1 standard drink = 0.6 oz pure alcoho l) Sex Assigned at Date Recorded Female 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/2018 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 documented as of this encounter Last Filed Vital Signs Vital Sign Reading Time Taken Comments Blood Pressure 110/70 07/14/2004 3:01 PM CDT Pulse 80 07/14/2004 3:01 PM CDT Temperature 37.2 ??C (99 ??F) 07/14/2004 3:01 PM CDT Respiratory Rate 12 07/14/2004 3:01 PM CDT Oxygen Saturation - - Inhaled Oxygen Concentration - - Weight 92.1 kg (203 lb) 07/14/2004 3:01 PM CDT Height 170.8 cm (5' 7.25) 07/14/2004 3:01 PM CDT Body Mass Index 31.56 07/14/2004 3:01 PM CDT documented in this encounter Progress Notes 07/14/2004 2:30 PM CDT SUBJECTIVE: Left anterior knee pain with swelling and catching clunk sound. Walking at the fair really made it flare. Has been on her hands and knees planting new gardens. 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 No known injury to any of her joints. Was put on prednisone by her ophthalmology specialists after cataract surgery. [place] great every where. OBJECTIVE: Alert, oriented, well hydrated. Skin turgor normal. Bilateral PIP and DIP joint synovitis 2+. PREPATELLAR bursitis 1+ noted. Knee is palpation without evidence of erythema, warmth, or discoloration. ROM is full. No ligamentous instability. Patellar apprehension positive. Xray: neg ASSESSMENT: 717.7 CHONDROMALACIA PATELLAE (primary encounter diagnosis) Plan: X-RAY KNEE 3 VIEW, NAPROXEN 500 MG OR TABS Ice. Rehab stretches/ exercises to begin immediately and given in writing with illustrations. Recheck 2-3 weeks for update. Reviewed signs of Lyme's and other arthritis diseases. documented in this encounter Nursing Notes 07/14/2004 2:30 PM CDT >> EVE SIMON 07/14/04 2:37 pm Pt states that she have been having pain in her joints and is very unsure of what is causing it. Shealso has a spot by her left eye that she would like to have looked at. Questioned patient about current smoking habits. Pt. has never smoked. documented in this encounter Plan of Treatment Not on filedocumented as of this encounter Procedures Procedure Name Priority Date/Time Associated Diagnosis Comme nts X-RAY KNEE 3 VIEWS Routine 07/16/2004 Chondromalacia Cardenas llae Results for this procedure are i n the results section . documented in this encounter Results X-RAY KNEE 3 VIEW (07/16/2004) Anatomical Region Laterality Modality Other Narrative 07/16/2004 REPORT OF OUTSIDE FILMS FROM: [facility] Patient: ??SHAHNAZ GLASGOW Case No: ?? Birthdate: ??[birth year] Referring Physician: ??BHARTI GUTHRIE Exam Date: ??07/14/04 Exam: ??LEFT KNEE HISTORY: ??Chondromalacia. FINDINGS: ??There is a small spur off th e superior aspect of the patella. ??The medial and lateral joint spaces are well preserved. No joint loose bodies are identified. IMPRESSION: ??Small spur off the superio r patella. Cory Dugan M.D./eulalio D/T: ??07/15/04 Bharti Guthrie MD GENERAL IMAGING documented in this encounter Visit Diagnoses Diagnosis Chondromalacia of patella - Primary Osteoarthrosis, unspecified whether gene ralized or localized, unspecified site documented in this encounter Care Teams Yoker Relationship Specialty Start Date End Date Bharti Guthrie MD PCP - General 11/24/99 02/11/14 [address] [facility] [address] [place] [address] documented as of this encounter
--- OUTSIDE RECORDS SUMMARY | 2022-08-18 09:36 | XMS_ITS | Encounter Summary ---
:1945 Author Organization [facility] Address [address] [place] [address] Care Team Providers Name Role Phone Bharti Guthrie MD Primary Care Provider Reason for Visit Reason Comments Referral Encounter Details Date Type Department Care Team Description 07/03/2003 Telephone [facility] ysicians Bharti Guthrie MD Referral [address] [facility] [address] [place] [address] [place], [place] [phone] (Wo rk) Social History Tobacco Use Types Packs/Day Years Used Date Smoking Tobacco: Former Cigarettes Quit : 11/07/1995 Alcohol Use Standard Drinks/Week Comments No 0 (1 standard drink = 0.6 oz pure alcoho l) Sex Assigned at Date Recorded Female 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 >> SYLVESTER MOON TueJul 04, 2003 10:15 AM >> COMPLETED ON TueJul 04, 2003 11:13 AM I called Rafita(pt's ) I got Josselyn's number ext [phone]. The work comp claim number is [id number]. In talking with Rafita again, it sounds like they want to drop the work comp claim. Rafita said that pt has had treatment,(some kind of injection) for this in the past. Pt's current employer also said that this did not just happen. 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 At that time she did not have work comp insurance so pt just went under Rafita's insurance. -- Per Rafita(pr's ) this is a pre-existing issue. Pt does not want to have this go under works comp. Wants to drop it. Since we have not sent to work comp & it has already been denied from the work comp carrier & has paid the bill there should be no problem. -- I will call pt to let her know all is done.--- if you disagree please let me know. >> BHARTI GUTHRIE Lizzette Jul 04, 2003 9:21 AM I did not talk to any person named Josselyn. I see no medical records inquiry either. They are giving them the run around. Past history of an injury not valid. Another diagnosis in the same arm. I will gladly write a letter to who ever. >> SYLVESTER MOON TueJul 04, 2003 8:53 AM <<<<<<<< Disreguard the first encounter, pt did not go to [facility], pt went to [facility] is an [place] provider. Referral was issued. >> SYLVESTER MOON TueJul 04, 2003 8:42 AM >> COMPLETED ON TueJul 04, 2003 8:50 AM pt's Rafita called asking about the referral for px-therapy.(Pt gave the verbal ok for [facility] talk [facility] Rafita,)- Rafita said that pt turned in a work comp claim like you suggested. The claim is being denied. Josselyn with [facility](work comp claim office) told Rafita that she(Josselyn) talked to you,& that you told her (Josselyn) that pt has a history of the injury so now work comp will not pay.--- We did a referral to ([facility]) for the px-therapy & the 05-13-03 office visit was billed to . A work comp account was not set up. Rafita wants to know if they should just drop the work comp claim. has already paid us for the 05-13-03 date of service. Pt is asking you what they should do, not sure what is going on. Thank you Sylvester. >> SYLVESTER MOON TueJul 03, 2003 1:50 PM >> COMPLETED ON TueJul 03, 2003 2:00 PM Pt has [facility]) insurance. [facility] is NOT [facility]. Pt will need to be redirected to [facility] or another [facility] provider. I left a message at pt's home #. >> SYLVESTER RED TueJul 03, 2003 1:39 PM I do not see a work comp account for the pt. >> CAROL MCGOVERN TueJul 03, 2003 1:27 PM >> CALL RECEIVED. Contact: #[phone] To Sylvester - Patient has a work comp issue and is in physical therapy at [facility]. Now work comp is not co vering the charges from physical therapy. To sylvester the patient will be calling you. Thanks... documented in this encounter Plan of Treatment Not on filedocumented as of this encounter Visit Diagnoses Not on filedocumented in this encounter Care Teams Master Fisher Relationship Specialty Start Date End Date Bharti Guthrie MD PCP - General 11/24/99 02/11/[address], [facility] [address] [place] [address] documented as of this encounter
--- OUTSIDE RECORDS SUMMARY | 2022-08-18 09:36 | XMS_ITS | Encounter Summary ---
:1945 Author Organization [facility] Address [address] [place] [address] Care Team Providers Name Role Phone Jacquie Schmitt MD Primary Care Provider Reason for Referral - Closed Specialty Diagnoses / Procedures Referred By Contact Refer red To Contact Orthopedics Diagnoses Unspecified internal derangement of knee Jacquie Schmitt MD [address] [facility] [address] [place] [address] Referral ID Status Reason Start Date Expiration Date Visits Requ ested Visits Authorized [id number] Closed 03/10/2005 11/06/2011 1 1 Reason for Visit Reason Onset Date Comments Results 03/10/2005 Encounter Details Date Type Department Care Team Description 03/10/[address] 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 Telephone Encounter - Jacquie Schmitt - 03/10/2005 4:58 PM CDT Discussed meniscal tear and need for an orthopedic surgeon. Requests Dr Franklin. Will fax MRI reportto his office. Please fax over her MRI report to his office. documented in this encounter Plan of Treatment Not on filedocumented as of this encounter Procedures Procedure Name Priority Date/Time Associated Diagnosis Comme nts ORTHOPEDICS ADULT REFERRAL Routine 03/23/2005 Int Derangemen t Knee Nos documented in this encounter Results CONSULT TO ORTHOPEDICS (03/23/2005) Narrative This result has an attachment that is no t available. Jacquie Schmitt MD REFERRAL documented in this encounter Visit Diagnoses Diagnosis Unspecified internal derangement of knee - Primary documented in this encounter Care Teams Mineral Ore Processing Labourer Relationship Specialty Start Date End Date Jacquie Schmitt MD PCP - General 11/24/99 02/11/[address], [facility] 100 [place] [address] documented as of this encounter
--- OUTSIDE RECORDS SUMMARY | 2022-08-18 09:37 | XMS_ITS | Encounter Summary ---
:1945 Author Organization [facility] Address [address] [place] [address] Care Team Providers Name Role Phone Jacquie Schmitt MD Primary Care Provider Reason for Visit Reason Comments Medication Request Retin A micro gel pharm [phone] Encounter Details Date Type Department Care Team Description 07/29/2000 Telephone [facility] Jose Daniel Bennett LP N Medication Request Physicians [phone] (Retin A micro gel pharm [address] (Work) [phone]) [address] [place] [address] Social History Tobacco Use Types Packs/Day Years Used Date Smoking Tobacco: Former Cigarettes Quit : 11/07/1995 Alcohol Use Standard Drinks/Week Comments Not Asked 0 (1 standard drink = 0.6 oz pure alcoho l) Sex Assigned at Date Recorded Female 10/17/2018 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 Case # [id number]. Pharm informed. - - Uon Chhim Started and completed on TueJul 29, 2000 11:34 AM CALL RECEIVED. Contact: Pharm called requesting prior auth for Retin A micro gel ( [employer] prior auth requ est line). Called. - Uon Chhim Started and completed on TueJul 29, 2000 11:28 AM documented in this encounter Plan of Treatment Not on filedocumented as of this encounter Visit Diagnoses Not on filedocumented in this encounter Care Teams Bench Chemist Relationship Specialty Start Date End Date Jacquie Schmitt MD PCP - General 11/24/99 02/11/14 [address] [address] documented as of this encounter
--- OUTSIDE RECORDS SUMMARY | 2022-08-18 09:37 | XMS_ITS | Encounter Summary ---
:1945 Author Organization [facility] Address [address] [place] [address] Care Team Providers Name Role Phone Jacquie Schmitt MD Primary Care Provider Reason for Visit Reason Comments Results Encounter Details Date Type Department Care Team Description 05/29/2001 Telephone [facility] ysicians Jacquie Schmitt MD Results [address] [facility] [address] [place] [address] [place], [place] [phone] (Wo rk) Social History Tobacco Use Types Packs/Day Years Used Date Smoking Tobacco: Former Cigarettes Quit : 11/07/1995 Alcohol Use Standard Drinks/Week Comments Not Asked 0 (1 standard drink = 0.6 oz pure alcoho l) Sex Assigned at Date Recorded Female 10/17/2018 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 Contact: Pt called with some concerns about hemoccult tests. Pt states that she feels she did the test incorrectly. Informed pt that she should still have procedure as she had a positive result. Gave pt num gwendolyn for Dr. Wells. Dr. Wells's office informed. documented in this encounter Plan of Treatment Not on filedocumented as of this encounter Visit Diagnoses Not on filedocumented in this encounter Care Teams Extractions Technologist Relationship Specialty Start Date End Date Jacquie Schmitt MD PCP - General 11/24/99 [address] , [facility] 100 [place] [address] documented as of this encounter
--- OUTSIDE RECORDS SUMMARY | 2022-08-18 09:37 | XMS_ITS | Encounter Summary ---
:1945 Author Organization [facility] Address [address] [place] [address] Care Team Providers Name Role Phone Jacquie Schmitt MD Primary Care Provider Reason for Visit Reason Comments Infection rgt index finger Encounter Details Date Type Department Care Team Description 07/28/2000 Office Visit [facility] Jacquie Schmitt, ACNE N EC (Primary Dx); Physicians ONYCHERIKA OF FINGER [address] , [address] [id number] Social History Tobacco Use Types Packs/Day Years Used Date Smoking Tobacco: Former Cigarettes Quit : 11/07/1995 Alcohol Use Standard Drinks/Week Comments Not Asked 0 (1 standard drink = 0.6 oz pure alcoho l) Sex Assigned at Date Recorded Female 10/17/2018 7: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 Not happy with the comedonal results with retin A cream. request the gel which is available on with prior approval like the cream. OBJECTIVE: Comedonal acne over the face, forehead, cheeks and chest. 1 cm paronychia of the right 2nd finger lateral side. Cleaned with betadine. 15 blade per iungual I & D with drainage of purulent material. ASSESSMENT: ACNE NEC [706.1] ONYCHIA OF FINGER [68 1.02] PLAN: Bacitracin and tube gauze dressing. daily soaks. AUGMENTIN TABS 500-125 MG OR, 1 tab PO BID (Twice per day) [id number], D: 20, R: 0 Trial of RETIN-A MICRO GEL 0.1 % EX, apply at bedtime, D: 6 0 grams, R: 0 for her acne. documented in this encounter Plan of Treatment Not on filedocumented as of this encounter Procedures Procedure Name Priority Date/Time Associated Diagnosis Comme nts DRAIN SKIN ABSCESS Routine 07/28/2000 3:37 PM CDT Onychia Of Reggie HOWELL documented in this encounter Visit Diagnoses Diagnosis Other acne - Primary Onychia and paronychia of finger documented in this encounter Care Teams Journeyman Electrician Relationship Specialty Start Date End Date Jacquie Schmitt MD PCP - General 11/24/99 02/11/[address], [facility] [address] [place] [address] documented as of this encounter
--- OUTSIDE RECORDS SUMMARY | 2022-08-18 09:37 | XMS_ITS | Encounter Summary ---
:1945 Author Organization [facility] Address [address] [place] [address] Care Team Providers Name Role Phone Bharti Guthrie MD Primary Care Provider Reason for Visit Reason Comments Derm Problem Encounter Details Date Type Department Care Team Description 03/22/2001 Telephone [facility] ysicians Bharti Guthrie MD Derm Problem [address] [facility] [address] [place] [address] [place], [place] [phone] (Wo rk) Social History Tobacco Use Types Packs/Day Years Used Date Smoking Tobacco: Former Cigarettes Quit : 11/07/1995 Alcohol Use Standard Drinks/Week Comments Not Asked 0 (1 standard drink = 0.6 oz pure alcoho l) Sex Assigned at Date Recorded Female 10/17/2018 7: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 Will call back if she has any other sx. >> BRANT MEDCRAFT TueMarch 22, 2001 12:59 PM L/M on A/M for pt to call back >> BHARTI GUTHRIE TueMarch 22, 2001 11:52 AM Needs to stop all antibiotics, if she thinks this is from the AUGMENTIN. Often have hives on the chest/torso area as first skin change noted. Can use her CLARITIN for her pollen allergies for the itch and hives. Also Caladryl lotion or Aveno( oatmeal ) products to the skin. >> BRANT WATTERS TueMarch 22, 2001 11:39 AM >> CALL RECEIVED. Contact: [phone] pt called C/O itching, thinks it may be from the medication. I told here to try benedryl but she won't take it because it makes her drowsey. Would you like her to try a new Rx? or come in? THX documented in this encounter Plan of Treatment Not on filedocumented as of this encounter Visit Diagnoses Not on filedocumented in this encounter Care Teams Real Estate Executive Assistant Relationship Specialty Start Date End Date Bharti Guthrie MD PCP - General 11/24/99 02/11/14 [address] , [facility] [address] [place] [address] documented as of this encounter
--- OUTSIDE RECORDS SUMMARY | 2022-08-18 09:37 | XMS_ITS | Encounter Summary ---
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 Exam routine Sinus Problem c/o facial pressure, headach es Encounter Details Date Type Department Care Team Description 03/07/2000 Office Visit [facility] Jacquie Schmitt, GYNECO LOGIC EXAMINATION (Primary Dx); Physicians ABSENCE OF MENSTRUATION; [address], [place]; [address] PERS HX COLONIC POLYPS; [place], [place] FAMILY HX G I [place]; [id number] ALLERGIC RHINITIS NOS [phone] Social History Tobacco Use Types Packs/Day Years Used Date Smoking Tobacco: Former Cigarettes Quit : 11/07/1995 Alcohol Use Standard Drinks/Week Comments Not Asked 0 (1 standard drink = 0.6 oz pure alcoho l) Sex Assigned at Date Recorded Female 10/17/2018 7:14 PM 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 Menopause at age 49 . No bleeding, spotting, or discharge noted. Estrogen replacement therap y: continuous daily oral regimen SAMANTA exposure: no History of abnormal Pap smear: no Family history of uterine or ovarian cancer: no Regular self breast exam: no History of abnormal mammogram: no Family history of breast cancer: no History of abnormal lipids: no -195 in 1996 Review of patient's past me dical history indicates: ACNE NEC POSTMENOPAUSAL HORMONAL REPLACMT RHINITIS DUE TO POLLEN Review of patient's family history indicates: Cancer Brother Comment: colon Review of patient's past surgical history indicates: COLONOSCOPY & POLYPECTO MY Meds as of 03/07/2000: PREMPRO TABS 0.625-2.5 MG OR, 1 tab PO QD, D: 30, R: 11 RETIN-A MICRO GEL 0.1 %EX, apply to area qhs, D: 60 grams, R: 1 GUAIFENESIN CR TBCR 600 MG OR, 1 tab po BID (Twice per day), D: 60, R: 3 Review of patient's allergies indicates: Imidazo le Anti* hives Tobacco Use: Quit Packs/Day: Years: Quit date: 11/07/1995 Alcohol Use: Not Asked Review Of Systems Ears/Nose/Throat: sinus trouble and allergies in the sp ring Respiratory: negative Cardiovascular: negative Gastrointestinal: colon polyps Genitourinary: neg ative OBJECTIVE: BP 132/78 Temp 97.8 Wt 188 lbs (85.28 kg) LMP Postmenopausal General appearan ce: healthy, cooperative, smiling Skin: positives: acne on the face with deep pores, right thumb nail changes remain Ears: External ears normal. Canals clear. TM's normal. Nose/Sinuses: positive finding s: mucosa swollen, pale, and boggy, clear rhinorrhea Oropharynx: Lips, mucosa, and tongue normal. Flavio th and gums normal. Neck: Neck supple. No adenopathy. Thyroid symmetric, normal size, Lungs: Percussi onnormal. Good diaphragmatic excursion. Lungs clear Heart: PMI normal. No lifts, heaves, or thrills. RRR. No murmurs, clicks gallops or rub Breasts: Inspection negative. No nipple discharge or bleeding .No masses. Abdomen: Abdomen soft, non-tender. BS normal. No masses, organomegaly Pelvic: External g enitalia and vagina normal. Bimanual and rectovaginal normal. 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 Dx: 1) Pap smear, mammogram 2) Lipids at appropriate intervals Rx: PREMPRO TABS 0.6 25-2.5 MG OR, 1 tab PO QD, D: 30, R: 11 RETIN-A MICRO GEL 0.1 % EX, apply to area qhs, D: 60 grams, R : 1 NASONEX SUSP 50 MCG/ACT NA, 2 sprays each nostril Once daily for allergies, D: 1, R: 0 PE: Revi ewed health maintenance including diet, regular exercise, estrogen replacement and periodicexams. documented in this encounter Plan of Treatment Not on filedocumented as of this encounter Procedures Procedure Name Priority Date/Time Associated Diagnosis Comme nts HCL PAP SMEAR Routine 03/08/2000 12:00 Gynecologic Results fo r this PM CDT Examination procedure are in Absence Of the results Menstruation section. HCL LIPID PANEL Routine 03/08/2000 7:59 AM Gynecologic Result s for this CDT Examination procedure are in Absence Of the results Menstruation section. CL AFF GLUCOSE, Routine 03/07/2000 10:03 Gynecologic Results for this FASTING AM CDT Examination procedure are in Absence Of the results Menstruation section. ZZCL AFF HEMOGLOBIN Routine 03/07/2000 10:03 Gynecologic Resu lts for this AM CDT Examination procedure are in Absence Of the results Menstruation section. HC VENOUS Routine 03/07/2000 9:53 AM Gynecologic COLLECTION CDT Examination Absence Of Menstruation HCL URINALYSIS Routine 03/07/2000 9:40 AM Gynecologic Results for this NONAUTO W/O SCOPE CDT Examination procedure are in [facility] Absence Of the results Menstruation section. documented in this encounter Results PAP SMEAR (03/08/2000 12:00 PM CDT) Component Value Ref Test Analysis Performed At [facility] Range Method Time Signature Unlabelled DNR [facility] [place] Source VAG,CERV,ENDOCERV [facility] [place] LMP POSTMENOPAUSAL [facility] Clinical DNR [facility] History [place] Therapy DNR [facility] Last Pap WITHIN NORMAL [facility] Diagnosis LIMITS [place] PAP Date DNR [facility] Prev Bx Dx [facility]NR [facility] [place] Prev Bx Date DNR [facility] Addl Hx Info [facility] Statement of [facility] Adequacy [place] Comment: SATISFACTORY FOR INTERPRETATION ENDOCERVICAL COMPONENT (COLUMNAR AND/OR METAPLASTIC) IS PRESENT General Categorization DNR [facility] [place] Descriptive Diagnosis [facility] [place] Comment: WITHIN NORMAL LIMITS Recommendations DNR [facility] [place] . [facility] [place] Comment: ? PAP SMEARS ARE SUBJECT TO BOT H FALSE NEGATIVE AND FALSE ?POSITIVE RESULTS EVIDENCE D BY DATA PUBLISHED IN THE ?MEDICAL LITERATURE. ??YOUR P ATIENT'S RESULT SHOULD BE ?INTERPRETED IN THIS CONTEXT, TOGETHER WITH THE PATIENT'S ?HISTORY AND CLINICAL FINDING S. TESTING LOCATION ?THIS TEST WAS PERFORMED AT [facility] ?[address] [place] [address] ?PHONE NUMBERS FOR CYTOLOGY I NQUIRES, INCLUDING SLIDE REQUESTS: ? EXT. [id number] ? EXT. [id number] Specimen (Source) Anatomical Location Collection Method / Collectio n Time Received Time / Laterality Volume 03/07/2000 Jacquie Schmitt MD LABORATORY Performing Organization Address City/State/ZIP Code Phon e Number [facility] [place] A.M.A. LIPID PANEL (03/08/2000 7:59 AM CDT) YouTern gist Method Time Signature Comments DNR [facility] Triglycerides 68 40 - 199 MG/DL [facility] Cholesterol 183 120 - 199 [facility] MG/DL [place] Cholesterol 13 PERCENTILE [facility] Percentile [place] HDL Cholesterol 54.8 35ORHIGHER [facility] MG/DL [place] Comment: * CUTOFF VALUES RECOMMENDED BY THE [facility] CHOLESTEROL EDUCATION PROGRAM: ?LIPID ? DESIRAB LE ?BORDERLINE ? HIGH RISK ?CHOLESTEROL ?LT 200 MG/D L ?? 200-239 MG/DL ?? GT 239 MG/DL ?LDL CHOLESTEROL ??LT 130 MG/DL ?? 130-159 MG/DL ?? GT 159 MG/DL ?HDL CHOLESTEROL ? LT 35 MG/DL ?TRIGLYCERIDES ?LT 200 MG/DL ?? 200-399 MG/DL ?? GT 399 MG/DL LDL Cholesterol Calculated 115 75 - 129 MG/DL [facility] Cholesterol/HDL Ratio 3.3 3.0 - 5.3 [facility] Specimen (Source) Anatomical Location Collection Method / Collectio n Time Received Time / Laterality Volume 03/07/2000 Jacquie Schmitt MD LABORATORY Performing Organization Address City/[facility]/ZIP [facility] Phon e Number [facility] GLUCOSE, FASTING (03/07/2000 10:03 AM CDT) P athologist Signature Glucose 101 60 - 120 [facility] mg/dl Specimen (Source) Anatomical Collection Method Collection Time Re ceived Time Location / / Volume Laterality 03/07/2000 10:03 AM CDT Jacquie Schmitt MD LABORATORY Performing Organization Address City/[facility]/ZIP [facility] Phon e Number [facility] HEMOGLOBIN (03/07/2000 10:03 AM CDT) P athologist Signature Hemoglobin 12.1 12 - 16 G/DL [facility] Specimen (Source) Anatomical Collection Method Collection Time Re ceived Time Location / / Volume Laterality 03/07/2000 10:03 AM CDT Jacquie Schmitt MD LABORATORY Performing Organization Address City/[facility]/ZIP Code Phon e Number [facility] URINALYSIS NONAUTO W/O SCOPE (03/07/2000 9:40 AM CDT) P athologist Signature Glucose Urine neg [facility] Protein Urine neg [facility] Specimen (Source) Anatomical Collection Method Collection Time Re ceived Time Location / / Volume Laterality 03/07/2000 9:40 AM CDT Jacquie Schmitt MD LABORATORY Performing Organization Address City/State/ZIP Code Phon e Number [facility] documented in this encounter Visit Diagnoses Diagnosis Gynecological examination - Primary Absence of menstruation Other acne Personal history of colonic polyps Family history of malignant neoplasm of gastrointestinal tract Allergic rhinitis, cause unspecified documented in this encounter Care Teams Life Claims Examiner Relationship Specialty Start Date End Date Jacquie Schmitt MD PCP - General 11/24/99 [address], [address] [place] [address] documented as of this encounter
--- OUTSIDE RECORDS SUMMARY | 2022-08-18 09:37 | XMS_ITS | Encounter Summary ---
:1945 Author Organization [facility] Address [address] [place] [address] Care Team Providers Name Role Phone Jacquie Schmitt MD Primary Care Provider Encounter Details Date Type Department Care Team Description 03/22/2000 Orders Only [facility] Jacquie Schmitt, PERS H X COLONIC POLYPS Physicians (Primary Dx) [address] [facility] 100 [place] [address] [phone] Social History Tobacco Use Types Packs/Day Years Used Date Smoking Tobacco: Former Cigarettes Quit : 11/07/1995 Alcohol Use Standard Drinks/Week Comments Not Asked 0 (1 standard drink = 0.6 oz pure alcoho l) Sex Assigned at Date Recorded Female 10/17/2018 7:14 PM BLOCKER HAND documented as of this encounter Plan of Treatment Not on filedocumented as of this encounter Procedures Procedure Name Priority Date/Time Associated Diagnosis Comme nts HCL OCCULT BLOOD, Routine 03/22/2000 1:28 PM Pers Hx Colonic R esults for this STOOL (3 SPECS) CDT Polyps procedure ar e in the results section. documented in this encounter Results OCCULT BLOOD, STOOL (3 SPECS) (03/22/2000 1:28 PM CDT) P athologist Signature Occult Blood neg [facility] Occult Blood neg [facility] Occult Blood neg [facility] Specimen (Source) Anatomical Collection Method Collection Time Re ceived Time Location / / Volume Laterality 03/22/2000 1:28 PM CDT Jacquie Schmitt MD LABORATORY Performing Organization Address City/State/ZIP Code Phon e Number [facility] documented in this encounter Visit Diagnoses Diagnosis Personal history of colonic polyps - Christal noel documented in this encounter Care Teams Social Media Analyst Relationship Specialty Start Date End Date Jacquie Schmitt MD PCP - General 11/24/99 02/11/[address], [facility] 100 [place] [address] documented as of this encounter
--- OUTSIDE RECORDS SUMMARY | 2022-08-18 09:37 | XMS_ITS | Encounter Summary ---
:1945 Author Organization [facility] Address [address] [place] [address]. [place] [address] Care Team Providers Name Role Phone Jacquie Schmitt MD Primary Care Provider Reason for Visit Reason Comments Ear Problem c/o L ear feels plugged Encounter Details Date Type Department Care Team Description 12/26/[address] 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 documented as of this encounter Last Filed Vital Signs Vital Sign Reading Time Taken Comments Blood Pressure 158/70 12/26/2000 10:45 AM CUSTOMER SALES DISTRIBUTOR Pulse - - Temperature 36.1 ??C (97 ??F) 12/26/2000 10:45 AM CUSTOMER SALES DISTRIBUTOR Respiratory Rate - - Oxygen Saturation - - Inhaled Oxygen Concentration - - Weight 88 kg (194 lb) 12/26/2000 10:45 AM CUSTOMER SALES DISTRIBUTOR Height - - Body Mass Index 30.38 03/21/1999 11:00 AM CDT documented in this encounter Progress Notes 12/26/2000 10:45 AM CUSTOMER SALES DISTRIBUTOR Patient presents with: Ear Problem - c/o L ear feels plugged No sore throat or fever. Flying th is weekend. External ears and canals clear bilaterally. TM's normal bilaterally. Tymp consistent wi serous otitis. PLAN: CLARITIN-D 24 HOUR TB24 10-240 MG OR, 1 tab po QD (Once per day) as needed for allergy symptoms, D: 30, R: 11 I am nervous about this with her blood pressure, but with her flyi ng, I am only giving her one week. Recheck immediately if worsening, or if not improving in a few da ys, otherwise PRN. documented in this encounter Plan of Treatment Not on filedocumented as of this encounter Procedures Procedure Name Priority Date/Time Associated Diagnosis Comme nts TYMPANOMETRY Routine 12/26/2000 Dysfunct Eustachian Tube documented in this encounter Results TYMPANOMETRY (12/26/2000) Narrative This result has an attachment that is no t available. Robert Olivas MD PROCEDURES documented in this encounter Visit Diagnoses Diagnosis Dysfunction of eustachian tube - Primary Dysfunction of Eustachian tube Elevated blood pressure reading without diagnosis of hypertension documented in this encounter Care Teams Cofounder Relationship Specialty Start Date End Date Jacquie Schmitt MD PCP - General 11/24/99 02/11/[address], [address] [place] [address] documented as of this encounter
--- OUTSIDE RECORDS SUMMARY | 2022-08-18 09:37 | XMS_ITS | Encounter Summary ---
:1945 Author Organization [facility] Address [address] [place] [address] Care Team Providers Name Role Phone Jacquie Schmitt MD Primary Care Provider Encounter Details Date Type Department Care Team Description 03/21/2000 [facility] Jacquie Schmitt GYNECOLOG IC EXAMINATION; Health/Nurse Physicians MD [place] ABSENCE OF MENSTRUATION; Visit [address] SCREENING MAMM-MAILG NEOPL-O THER [address] [facility] 100 [place] [address] Social History Tobacco Use Types Packs/Day Years Used Date Smoking Tobacco: Former Cigarettes Quit : 11/07/1995 Alcohol Use Standard Drinks/Week Comments Not Asked 0 (1 standard drink = 0.6 oz pure alcoho l) Sex Assigned at Date Recorded Female 10/17/2018 7:14 PM TAX MAP TECHNICIAN documented as of this encounter Plan of Treatment Not on filedocumented as of this encounter Procedures Procedure Name Priority Date/Time Associated Diagnosis Comme nts C MAMMOGRAM, Routine 03/21/2000 Gynecologic Exam ination Results for this SCREENING Absence Of Menstruation proc edure are in the results section . documented in this encounter Results MAMMOGRAM, SCREENING (03/21/2000) Anatomical Region Laterality Modality Other Narrative 03/21/2000 REASON FOR EXAMINATION: Routine mammographic screening. DATE OF PREVIOUS MAMMOGRAM: 03/23/99 INTERPRETATION: The breast tissues are moderately dense, with moderate prominence of the ductal and fibroglandu lar elements. ??The breasts are symmetric and are normal in their appearance, and there are no primary or secondary si gns of malignancy. There is no change from the appearance o n the prior examination. CONCLUSION: Normal mammogram examination . Current Citizen Of [place] Cancer Society Guidelin es recommend screening mammograms and physical breast examinations yearly beginning at age 40. ACR-BIRADS CATEGORY 1: ??Normal Examinat ion GASPER LAGOS M.D. Certified - Citizen [place] Board of Radiology Accredited for Mammography - Citizen Of [place] [employer] of [employer] Jacquie Schmitt MD SPECIAL IMAGING STUDIES documented in this encounter Visit Diagnoses Diagnosis Gynecological examination Absence of menstruation Other screening mammogram documented in this encounter Care Teams Scientist/Engineer Relationship Specialty Start Date End Date Jacquie Schmitt MD PCP - General 11/24/99 02/11/[address], [address] [place] [address] documented as of this encounter
--- OUTSIDE RECORDS SUMMARY | 2022-08-18 09:37 | XMS_ITS | Encounter Summary ---
:1945 Author Organization [facility] Address [address] [place] [address] Care Team Providers Name Role Phone Unavailable Primary Care Provider Unavailable Encounter Details Date Type Department Care Team Description 03/20/1999 Abstract [facility] Ph ysicians Jacquie Schmitt MD [address] [place] [address] [address] [place] [address] [address] [place] [address] [place] [address] [phone] Social History Tobacco Use Types Packs/Day Years Used Date Smoking Tobacco: Never Assessed Sex Assigned at Date Recorded Female 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
--- OUTSIDE RECORDS SUMMARY | 2022-08-18 09:37 | XMS_ITS | Encounter Summary ---
:1945 Author Organization [facility] Address [address] [place] [address] Care Team Providers Name Role Phone Jacquie Schmitt MD Primary Care Provider Reason for Visit Reason Comments Sinus Problem c/o facial pressure, headach es, teeth hurt x 3 days Encounter Details Date Type Department Care Team Description 02/18/2000 Office Visit [facility] Jacquie Schmitt, ACUTE MAXILLARY SINUSITIS; Physicians [facility] [address], [address] [address] [phone] Social History Tobacco Use Types Packs/Day Years Used Date Smoking Tobacco: Former Cigarettes Quit : 11/07/1995 Alcohol Use Standard Drinks/Week Comments Not Asked 0 (1 standard drink = 0.6 oz pure alcoho l) Sex Assigned at Date Recorded Female 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 The patient describes congestion off and on through the winter for which she takes Sinutab prn. The patient keyanna es a history of GI symptoms. Smoking history: no. Relevant past medical history: positive for sinusit is. OBJECTIVE: The patient appears healthy, cooperative. EARS: negative, External ears normal. Canal s clear. TM's normal. NOSE/SINUS: negative, positive findings: purulent rhinorrhea THROAT: normal NEC K:negative, Neck supple. No adenopathy. Thyroid symmetric, normal size, CHEST: Clear ASSESSMENT: ACU TE MAXILLARY SINUSITIS [461.0] PLAN: AUGMENTIN TABS 500-125 MG OR, 1 tab PO BID (Twice per day) x10 days, D: 20, R: 0 GUAIFENESIN CR TBCR 600 MG OR, 1 tab po BID (Twice per day), D: 60, R: 3 In additi on, I have suggested that the patient try GUAIFENESIN CR TBCR 600 MG OR, 1 tab po BID (Twice per day) , D: 60, R: 3 for sinus symptoms to prevent infection . documented in this encounter Plan of Treatment Not on filedocumented as of this encounter Visit Diagnoses Diagnosis Acute maxillary sinusitis Headache(784.0) Headache documented in this encounter Care Teams Turnstile Attendant Relationship Specialty Start Date End Date Jacquie Schmitt MD PCP - General 11/24/99 4 [address] , [facility] 100 [place] [address] documented as of this encounter
--- OUTSIDE RECORDS SUMMARY | 2022-08-18 09:37 | XMS_ITS | Encounter Summary ---
:1945 Author Organization [place] Address [address] [place] [address]. 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 Physical Encounter Details Date Type Department Care Team Description 03/21/1999 Office Visit Jacquie Acosta GYNECOLOG IC EXAMINATION; Prateek Babb MD [facility]; [address] ABSENCE OF MENSTRUATION; [address] [facility] 100 DERMATOPHYTOSIS OF NAIL; [place], [place] FAMILY HX [place] [address] [phone] Social History Tobacco Use Types Packs/Day Years Used Date Smoking Tobacco: Never Assessed Sex Assigned at Date Recorded Female 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 Menopause at age 49. No bleeding, spotting, or discharge noted. Estrogen replacement therapy: continuous daily oral regimen SAMANTA exposure: no History of abnormal Pap smear: no Family history of uterine or ovarian cancer: no Regular self breast exam: yes History of abnormal mammogram: no Family history of breast cancer: yes - paternal grandmother History of abnorm al lipids: no Review of patient's past medical history indicates: [facility] POSTMENOPAUSAL HORMONAL REPLACMT RHINITIS DUE TO POLLEN There is no previous surgical history on file. Meds as of 03/21/1999: RETIN-A MICRO GEL 0.1 % EX, , D: , R: 0 BENZAMYCIN GEL 5- 3 % EX, , D: , R: 0 P REMPRO TABS 0.625-2.5 MG OR, 1 tab PO QD, D: 30, R: 11 FLONASE INHA 50 MCG/DOSE NA, PRN, D: , R: ENT EX CAPS 5-45-200 MG OR, 1 CAPSULE EVERY 6 HOURS NEEDED, D: , R: PREMPRO TABS 0.625-2.5 MG OR, 1 t ab PO QD, D: , R: Review of patient's allergies indicates: Imidazole Anti* hives Tobacco Use: Not Asked Alcohol Use: Not Asked Review Of Systems Ears/Nose/Throat: negative and allergies Respiratory: negative Cardiovascular: negative Gastrointestinal: negative Genitourinary: negative OBJECTIVE: BP 122/66 Pulse 72 Ht 5' 7 (1.70m) Wt 179 lbs (81.19 kg) LMP POST General appear ance: healthy, alert, cooperative, smiling Skin: negative, Skin color, texture, turgor normal. No ra shes or lesions., positives: scar - face, acne well controlled. Also capillary lesions over the thor ax. Nails dystrophic with whitened discoloration. Ears: negative, External ears normal. Canals clear . TM's normal. Nose/Sinuses: negative, Nares normal. Septum midline. Mucosa normal. No drainage or s inus tenderness. Oropharynx: negative, Lips, mucosa, and tongue normal. Teeth and gums normal. Neck: negative, Neck supple. No adenopathy. Thyroid symmetric, normal size, Lungs: negative, Percussion normal. Good diaphragmatic excursion. Lungs clear Heart: negative, PMI normal. No lifts, heaves, or thrills. RRR. No murmurs, clicks gallops or rubs., No edema or JVD. Breasts: negative, Inspection negative. No nipple discharge or bleeding. No masses. Abdomen: negative, Abdomen soft, non-tender. BS normal. No masses, organomegaly Pelvic: negative, External genitalia and vagina normal. Bimanual and rectovaginal normal. 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 documented in this encounter Plan of Treatment Scheduled Referrals Name Type Priority Associated Diagnoses Order S chedule CONSULT TO DERMATOLOGY Referral Routine Dermatophytosis Of Nail Ordered: 03/21/1999 documented as of this encounter Procedures Procedure Name Priority Date/Time Associated Diagnosis Comme nts HCL PAP SMEAR Routine 03/25/1999 9:05 AM Gynecologic Results for this CDT Examination procedure are i n the results section. ZZCL AFF HEMOGLOBIN Routine 03/21/1999 12:08 Gynecologic Resu lts for this PM CDT Examination procedure are i n the results section. HC VENOUS COLLECTION Routine 03/21/1999 12:07 Gynecologic PM CDT Examination HCL URINALYSIS Routine 03/21/1999 11:52 Gynecologic Results f or this NONAUTO W/O SCOPE AM CDT Examination procedure are in [facility] the results section. documented in this encounter Results PAP SMEAR (03/25/1999 9:05 AM CDT) Patholo gist Method Time Signature Unlabelled DNR [facility] Biopsy Sent DNR [facility] Source VAG,CERV,E [facility] NDOCERV LMP POST [facility] PARA 1 [facility] 1 [facility] Clinical [facility] History Comment: POST MENOPAUSAL. Therapy DNR [facility] Last Pap Diagnosis WITHIN NORMAL LIMITS [facility] PAP Date [id number] [facility] Specimen # [id number] [facility] Tissue DNR [facility] Tissue Date DNR [facility] Statement of Adequacy [facility] [place] Comment: SATISFACTORY FOR INTERPRETATION POST MENOPAUSAL PATIENT. ??NO ENDOCERVIC AL CELLS SEEN. General Categorization DNR [facility] [place] Descriptive Diagnosis [facility] [place] Comment: WITHIN NORMAL LIMITS Recommendations [facility] DNR 98,,96,,,, [facility] DNR [facility] Comment: QC RANDOM DNR DNR [facility] DNR DNR [facility] . [facility] Comment: ?PAP SMEARS ARE SUBJECT TO BOTH FA LSE NEGATIVE AND FALSE ? POSITIVE RESULTS EVIDENCED BY DATA PUBLISHED IN THE ? MEDICAL LITERATURE. ??YOUR PATIEN T'S RESULT SHOULD BE ? INTERPRETED IN THIS CONTEXT, TOGE THER WITH THE PATIENT'S ? HISTORY AND CLINICAL FINDINGS. TESTING LOCATION ? THIS TEST WAS PERFORMED AT [facility] [[email or web address]] [facility] ? [address] [facility]. [id number] ? PHONE NUMBERS FOR CYTOLOGY INQUIR ES, INCLUDING SLIDE REQUESTS ? EXT. [id number] ?? EXT. [id number] Specimen (Source) Anatomical Location Collection Method / Collectio n Time Received Time / Laterality Volume 03/23/1999 Jacquie Schmitt MD LABORATORY Performing Organization Address City/State/ZIP Code Phon e Number [facility] HEMOGLOBIN (03/21/1999 12:08 PM CDT) P athologist Signature Hemoglobin 13.0 12 - 16 G/DL [facility] Specimen (Source) Anatomical Collection Method Collection Time Re ceived Time Location / / Volume Laterality 03/21/1999 12:08 PM CDT Jacquie Schmitt MD LABORATORY Performing Organization Address City/State/ZIP Code Phon e Number [facility] URINALYSIS NONAUTO W/O SCOPE (03/21/1999 11:52 AM CDT) P athologist Signature Glucose Urine neg [facility] Protein Urine neg [facility] Specimen (Source) Anatomical Collection Method Collection Time Re ceived Time Location / / Volume Laterality 03/21/1999 11:52 AM CDT Jacquie Schmitt MD LABORATORY Performing Organization Address City/State/ZIP Code Phon e Number [facility] documented in this encounter Visit Diagnoses Diagnosis Gynecological examination Other acne Absence of menstruation Dermatophytosis of nail Family history of malignant neoplasm of gastrointestinal tract documented in this encounter
--- OUTSIDE RECORDS SUMMARY | 2022-08-18 09:37 | XMS_ITS | Encounter Summary ---
:1945 Author Organization [place] Address [address] [place] [address] Care Team Providers Name Role Phone Jacquie Schmitt MD Primary Care Provider Encounter Details Date Type Department Care Team Description 05/23/2001 Orders Only [facility] Jacquie Schmitt, ROUTIN E MEDICAL EXAM Physicians (Primary Dx) [address] , [address] [facility] 100 [place] [address] [phone] Social History Tobacco Use Types Packs/Day Years Used Date Smoking Tobacco: Former Cigarettes Quit : 11/07/1995 Alcohol Use Standard Drinks/Week Comments Not Asked 0 (1 standard drink = 0.6 oz pure alcoho l) Sex Assigned at Date Recorded Female 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 documented in this encounter Results (ABNORMAL) OCCULT BLOOD, STOOL (3 SPECS) (05/23/2001 4:12 PM CDT) P athologist Signature Occult Blood neg [facility] Occult Blood neg [facility] Occult Blood pos (A) [facility] Specimen (Source) Anatomical Collection Method Collection Time Re ceived Time Location / / Volume Laterality 05/23/2001 4:12 PM CDT Jacquie Schmitt MD LABORATORY Performing Organization Address City/State/ZIP Code Phon e Number [facility] documented in this encounter Visit Diagnoses Diagnosis Routine general medical examination at a health care facility - Primary documented in this encounter Care Teams Glass Cut Off Supervisor Relationship Specialty Start Date End Date Jacquie Schmitt MD PCP - General 11/24/99 02/11/14 [address] [facility] 100 [place] [address] documented as of this encounter
--- OUTSIDE RECORDS SUMMARY | 2022-08-18 09:37 | XMS_ITS | Encounter Summary ---
:1945 Author Organization [place] Address [address] [place] [address] Care Team Providers Name Role Phone Jacquie Schmitt MD Primary Care Provider Reason for Visit Reason Comments Puller Through Exam routine Sinus Problem c/o drainage, facial pressur e x 1 week Encounter Details Date Type Department Care Team Description 03/13/2001 Office Visit [facility] Jacquie Schmitt, GYNECO LOGIC EXAMINATION (Primary Dx); Physicians [facility]; [address], ABSENCE OF MENSTRUATION; [address] [place] 100 ALLERGIC RHINITIS NOS; [place], [place] VACCINE FOR TETANUS + DIPHTHERIA; [phone] ACUTE MAXILLARY SINUSITIS [phone] Social History Tobacco Use Types Packs/Day Years Used Date Smoking Tobacco: Former Cigarettes Quit : 11/07/1995 Alcohol Use Standard Drinks/Week Comments Not Asked 0 (1 standard drink = 0.6 oz pure alcoho l) Sex Assigned at Date Recorded Female 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 documented as of this encounter Last Filed Vital Signs Vital Sign Reading Time Taken Comments Blood Pressure 168/78 03/13/2001 8:00 AM CDT Pulse 70 03/13/2001 8:00 AM CDT Temperature 36.7 ??C (98.1 ??F) 03/13/2001 8:00 AM CDT Respiratory Rate 16 03/13/2001 8:00 AM CDT Oxygen Saturation - - Inhaled Oxygen Concentration - - Weight 86.2 kg (190 lb) 03/13/2001 8:00 AM CDT Height 171.5 cm (5' 7.5) 03/13/2001 8:00 AM CDT Body Mass Index 29.32 03/13/2001 8:00 AM CDT documented in this encounter Progress Notes 03/13/2001 8:00 AM CDT Addended by: LIN GUILLEN on: 04/11/2001,5:43 PM Modules accepted: Order Summary, Progress Notes REIS BJECTIVE: Jina Phelps is an 55 year old postmenopausal woman who 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 Menopause at age 49. No bleeding, spotting, or discharge noted. Estrogen replacement therapy: continuous daily oral regimen SAMANTA exposure: no History of abnormal Papsmear: no Family history of ut erine or ovarian cancer: yes - mother age 90 Regular self breast exam: yes History of abnormal mammog tray: no Family history of breast cancer: no History of abnormal lipids: no Review of patient's past medical history indicates: [facility] POSTMENOPAUSA L HORMONAL REPLACMT RHINITIS DUE TO POLLEN Review of patient's family history indicates: Cancer Brother Comment: colon Review of patient's past surgical history indicates: COLONOSCOPY & POLYPEC JUAN COLONOSCOPY & POLYPECTOMY Me ds as of 03/13/2001: RETIN-A MICRO GEL 0.1 % EX, apply at bedtime, D: 60 grams, R: 3 PREMPRO TABS 0.625 -2.5 MG OR, 1 tab PO QD, D: 32, R: 11 NASONEX SUSP 50 MCG/ACT NA, 2 sprays each nostril Once daily fo r allergies, D: 2, R: 11 CLARITIN-D 24 HOUR TB24 10-240 MG OR, 1 tab po QD (Once per day) as needed f or allergy symptoms, D: 30, R: 11 Review of patient's allergies indicates: Imidazole Anti* hives Tobacco Use: Quit Packs/Day: Years: Quit date: 11/07/1995 Alcohol Use: Not Asked Review Of Systems Ears/Nose/Throat: sinus trouble, allergies Respiratory: negative Cardio vascular:negative Gastrointestinal: negative and diverticulosis Genitourinary: negative OBJECTIVE: BP 168/78 Temp 98.1 Ht 5' 7.5 (1.71m) Wt 190 lbs (86.18 kg) LMP Postmenopausal General appea cam: healthy, cooperative, smiling Skin: Skin color, texture, turgor normal. No rashesor lesions., positives: scar - face, acne as well Ears: negative Nose/Sinuses: positive findings: mucosa erythema tous and swollen, purulent rhinorrhea Oropharynx: Lips, mucosa, and tongue normal. Teeth and gums nor mal. Neck: Neck supple. No adenopathy. Thyroid symmetric, normal size, Lungs: Percussion normal. Good diaphragmatic excursion. Lungs clear Heart: negative, PMI normal. No lifts, heaves, or thrills. RRR. No murmurs, clicks gallops or rub Breasts: Inspection negative. No nipple discharge or bleeding. No masses. Abdomen: Abdomen soft, non-tender. BS normal. No masses, organomegaly, positive findings: obe se Pelvic: negative, External genitalia and vagina normal. Bimanual and rectovaginal normal. 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 [facility] [706.1] ABSENCE OF MENSTRUATION [626.0] ALLERGIC RHINITIS NOS [477.9] ACUTE MAXILLARY SINUSITIS [461.0] PLAN: VACCINE FOR TETANUS + DIPHTHERIA [V06.5], AUGME NTIN TABS 500-125 MG OR, 1 tab PO BID (Twice per day) [id number], D: 20, R: 0 Dx: 1) Pap smear, mammo gram 2) Lipids at appropriate intervals Rx: RETIN-A MICRO GEL 0.1 % EX, apply at bedtime, D: 60 gram s, R: 3 PREMPRO TABS 0.625-2.5 MG OR, 1 tab PO QD, D: 32, R: 11 NASONEX SUSP 50 MCG/ACT NA, 2 sprays each nostril Once daily for allergies, D: 2, R: 11 PE: Reviewed health maintenance including diet, regular exercise, estrogen replacement and periodic exams. documented in this encounter Nursing Notes 03/13/2001 8:00 AM CDT >> CAROL MCGOVERN 03/13/2001 8:10 am Questioned patient about current smoking habits. Pt. quit smoking some time ago. documented in this encounter Plan of Treatment Not on filedocumented as of this encounter Procedures Procedure Name Priority Date/Time Associated Diagnosis Comme nts [facility] SEND-OUT Routine 03/27/2001 Absence Of MAMMOGRAM Menstruation Gynecologic Examination HCL PAP SMEAR Routine 03/15/2001 9:25 AM Gynecologic Results for this CDT Examination procedure are in Absence Of the results Menstruation section. HCL LIPID PANEL Routine 03/14/2001 4:43 AM Gynecologic Result s for this CDT Examination procedure are i n the results section. CL AFF GLUCOSE, Routine 03/13/2001 8:47 AM Gynecologic Result s for this FASTING CDT Examination procedure are i n the results section. ZZCL AFF HEMOGLOBIN Routine 03/13/2001 8:47 AM Gynecologic Re sults for this CDT Examination procedure are i n the results section. HC VENOUS Routine 03/13/2001 8:29 AM Gynecologic COLLECTION CDT Examination HCL URINALYSIS Routine 03/13/2001 8:17 AM Gynecologic Results for this NONAUTO W/O SCOPE CDT Examination procedure are in [facility] Absence Of the results Menstruation section. C PAP HANDLING FEE Routine 03/13/2001 8:09 AM Gynecologic CDT Examination Absence Of Menstruation documented in this encounter Results [facility] SEND-OUT MAMMOGRAM (03/27/2001) Anatomical Region Laterality Modality Other Narrative This result has an attachment that is no t available. Jacquie Schmitt MD GENERAL IMAGING PAP SMEAR (03/15/2001 9:25 AM CDT) [facility] Method Time Signature Unlabelled DNR [facility] Source VAG,CERV,EN [facility] DOCERV LMP POST SMITHA [facility] Clinical DNR [facility] History Therapy DNR [facility] Last Pap WITHIN [facility] Diagnosis NORMAL LIMITS PAP Date [id number] [facility] Prev Bx Dx DNR [facility] Prev Bx Date DNR [facility] Addl Hx Info [facility] Statement of [facility] Adequacy Comment: SATISFACTORY FOR INTERPRETATION ENDOCERVICAL COMPONENT (COLUMNAR AND/OR METAPLASTIC) IS PRESENT General Categorization [facility] [place] Descriptive Diagnosis [facility] [place] Comment: WITHIN NORMAL LIMITS Recommendations DNR [facility] . [facility] Comment: PAP SMEARS ARE SUBJECT TO BOTH FALSE NE GATIVE AND FALSE POSITIVE RESULTS EVIDENCED BY DATA PUBLISHED IN THE MEDICAL LITERATURE. ??YOUR PATIE NT'S RESULT SHOULD BE INTERPRETED IN THIS CONTEXT, TOGETHER WITH THE PATIENT'S HISTORY AND CLINICAL FIND INGS. TESTING LOCATION ?? THIS TEST WAS PERFORMED AT [facility] ?? [place], [address] [place] [address] AVE., ?? [place] [address] ?? PHONE NUMBERS FOR CYTOLOGY INQUIRIES , INCLUDING ?? SLIDE REQUESTS: EXT. [id number] Specimen (Source) Anatomical Location Collection Method / Collectio n Time Received Time / Laterality Volume 03/13/2001 Jacquie Schmitt MD LABORATORY Performing Organization Address City/State/ZIP Code Phon e Number [facility] [place] A.M.A. LIPID PANEL (03/14/2001 4:43 AM CDT) [facility] gist Method Time Signature Comments DNR [facility] [place] Triglycerides 85 40 - 199 MG/DL [facility] Cholesterol 181 120 - 199 [facility] MG/DL [place] Cholesterol 8 PERCENTILE [facility] Percentile [place] HDL Cholesterol 55.0 35ORHIGHER [facility] MG/DL [place] LDL Cholesterol 109 75 - 129 MG/DL [facility] Calculated [place] Comment: ?NATIONAL CHOLESTEROL EDUCATION PROGRAM (NCEP) ? TREATMENT GUIDELIN ES SUMMARY ?DIETARY THERAPY ?? DRUG T REATMENT ?GOAL OF ? INITIATION LEVEL ??CONSI DERATION ? THERAPY LDL CHOLESTEROL ?? (MG/DL) ? (MG/ DL) ?(MG/DL) ? W/O CHD AND <2 RISK FACTORS ?> OR = 160 ? > OR = 190 ? < 160 W/O CHD AND > OR = 2 RISK FACTORS ? > OR = 130 ? > OR = 160 ? < 130 WITH CHD ? > 100 ?> OR = 130 ? < OR = 100 NCEP RECOMMENDS THAT DIETARY AND/OR DRUG TREATMENT NOT BEINITIATED BASED ON A SINGLE LDL CHOLES TEROL RESULT. ?? PLEASEREFER TO SECOND REPORT OF THE NCEP IN MAY[place] 1993;[id number] GUIDELINES. Cholesterol/HDL Ratio 3.3 3.0 - 5.5 [facility] [place] Specimen (Source) Anatomical Location Collection Method / Collectio n Time Received Time / Laterality Volume 03/13/2001 Jacquie Schmitt MD LABORATORY Performing Organization Address City/State/ZIP Code Phon e Number [facility] [place] GLUCOSE, FASTING (03/13/2001 8:47 AM CDT) athologist Signature Glucose 104 60 - 120 [facility] mg/dL Specimen (Source) Anatomical Collection Method Collection Time Re ceived Time Location / / Volume Laterality 03/13/2001 8:47 AM CDT Jacquie Schmitt MD LABORATORY Performing Organization Address City/[facility]/ZIP Code Phon e Number [facility] HEMOGLOBIN (03/13/2001 8:47 AM CDT) athologist Signature Hemoglobin 12.7 12 - 16 [facility] GM/DL Specimen (Source) Anatomical Collection Method Collection Time Re ceived Time Location / / Volume Laterality 03/13/2001 8:47 AM CDT Jacquie Schmitt MD LABORATORY Performing Organization Address City/State/ZIP Code Phon e Number [facility] URINALYSIS NONAUTO W/O SCOPE (03/13/2001 8:17 AM CDT) athologist Signature Glucose Urine neg neg - neg [facility] mg/dL Albumin Urine neg neg - neg [facility] mg/dL Specimen (Source) Anatomical Collection Method Collection Time Re ceived Time Location / / Volume Laterality 03/13/2001 8:17 AM CDT Jacquie Schmitt MD LABORATORY Performing Organization Address City/State/ZIP [facility] Phon e Number [facility] documented in this encounter Visit Diagnoses Diagnosis Gynecological examination - Primary Other acne Absence of menstruation Allergic rhinitis, cause unspecified Need for prophylactic vaccination with t etanus-diphtheria (Td) Acute maxillary sinusitis documented in this encounter Care Teams Label Printing Machinist Relationship Specialty Start Date End Date Jacquie Schmitt MD PCP - General 11/24/99 02/11/[address], [address] [place] [address] documented as of this encounter
--- OUTSIDE RECORDS SUMMARY | 2022-08-18 09:37 | XMS_ITS | Encounter Summary ---
:1945 Author Organization [facility] Address [address] [place] [address] Care Team Providers Name Role Phone Jacquie Schmitt MD Primary Care Provider Reason for Visit Reason Comments Musculoskeletal Problem Left foot and ankle pain. 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 Has been bearing weight with difficu lty and slow improvement. No hx of ankle injury before. Off and on L ear and jaw discomfo rt betterwith Sinutab. OBJECTIVE: Alert, oriented, well hydrated. Skin turgor normal. External ears and canals clear bilaterally. TM's normal bilaterally. Nose normal without lesions or discharge. Oropharynx normal. Neck supple without palpable adenopathy. Chest wall normal to inspection and palpation. Good excursion selena aterally. Lungs clear to auscultation. Good air movement bilaterally without rales, wheezes, or rhonchi. ASSESSMENT: DYSFUNCT EUSTACHIAN TUBE [381.81] SPRAIN OF ANKLE NOS [845.00] PLAN: Ice. Elevate. Rest. ELASTIC ANKLE SPLINT [[id number]] Order #: [id number] Class: Normal Use tyleno l/ advil prn. Discussed prn use of her flonase and ENTEX LA TBCR 75-400 MG OR, 1 TAB PO Q12 HR PRN A LLERGY SYMPTOMS, D: 60, R: 1 for her ear symptoms. Recheck if not controlled. documented in this encounter Plan of Treatment Not on filedocumented as of this encounter Procedures Procedure Name Priority Date/Time Associated Diagnosis Comme nts HC X-RAY ANKLE >=3 VIEWS Routine 04/08/1999 Sprain Of Ankle Nos TYMPANOMETRY Routine 04/07/1999 2:54 PM Dysfunct Eustachian CDT Tube documented in this encounter Results X-RAY ANKLE 3+ VW (04/08/1999) Anatomical Region Laterality Modality Other Narrative This result has an attachment that is no t available. Jacquie Schmitt MD GENERAL IMAGING documented in this encounter Visit Diagnoses Diagnosis Dysfunction of eustachian tube Dysfunction of Eustachian tube Sprain of ankle, unspecified site documented in this encounter Care Teams Project Superintendent Relationship Specialty Start Date End Date Jacquie Schmitt MD PCP - General 04/07/1999 11/19/99 [address] , [facility] [address] [place] [address] documented as of this encounter
--- OUTSIDE RECORDS SUMMARY | 2022-08-18 09:37 | XMS_ITS | Encounter Summary ---
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 documented in this encounter Results [id number], SCREENING (03/23/1999) Anatomical Region Laterality Modality Other Narrative 03/23/1999 REASON FOR EXAMINATION: Routine mammographic screening. DATE OF PREVIOUS MAMMOGRAM: 03-10-98 INTERPRETATION: The breast tissues are moderately dense, with moderate prominence of the ductal and fibroglandular elements. ??The breasts a re symmetric and are normal in their appearance, and there are no primary or secondary signs of maligna ncy. There is no change from the appearance o n the prior examination. CONCLUSION: Normal mammogram examination . Current [place] [employer] Guidelin es recommend screening mammograms and physi wes breast examinations yearly beginning at age 40. ACR-BIRADS CATEGORY 1: ??Normal Examinat ion GASPER LAGOS M.D. Certified - [place] [employer] Accredited for Mammography - [place] [employer] Jacquie Schmitt MD SPECIAL IMAGING STUDIES documented in this encounter Visit Diagnoses Diagnosis Gynecological examination Other screening mammogram documented in this encounter
--- OUTSIDE RECORDS SUMMARY | 2022-08-18 09:37 | XMS_ITS | Encounter Summary ---
:1945 Author Organization [facility] Address [address] [place] [address] Care Team Providers Name Role Phone Jacquie Schmitt MD Primary Care Provider Reason for Visit Reason Comments Musculoskeletal Problem Lt. shoulder pain(hx of tend onitis Rt. 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 It has been worse since Tyler night. 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 She has been Rxed by Dr. Randi carlos with a cortisone shot in the past. Exam: Shoulder exam shows a normal shoulder musculature with no atrophy. Abduction is limited by pain although patient can get arm over head. Testing the rotator cuff specifically finds no special weaknes s of internal or external rotation. The A-C joint is non tender and the periscapular musculature is normal. X Ray: negative A: as noted P:DAYPRO TABS 600 MG OR, 2 TABS PO QD (Once per day), D: 42, R: 0 Discussed medication in detail including dosing, side effects, and interactions. Call or return to clinic prn if these symtoms worsen, fail to improve as anticipated, or if new symp toms develop. Alternate warm moist soaks with ice, about 15 min. per time. Try to do this 4 times per day, if poss ible. documented in this encounter Plan of Treatment Scheduled Orders Name Type Priority Associated Diagnoses Order S chedule X-RAY SHOULDER 2+ VW Imaging Routine Synov/Tend/Bursa Dis Nec Ordered: 06/22/1999 documented as of this encounter Visit Diagnoses Diagnosis Other disorders of synovium, tendon, and bursa(727.89) Other disorders of synovium, tendon, and bursa documented in this encounter Care Teams Asphalt Raker Relationship Specialty Start Date End Date Jacquie Schmitt MD PCP - General 04/07/1999 11/19/99 [address] , [facility] 100 [place] [address] documented as of this encounter
--- OUTSIDE RECORDS SUMMARY | 2022-08-18 09:37 | XMS_ITS | Encounter Summary ---
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 documented in this encounter Results OCCULT BLOOD, STOOL (3 SPECS) (06/01/1999 4:24 PM CDT) P athologist Signature Occult Blood neg [facility] Occult Blood neg [facility] Occult Blood neg [facility] Specimen (Source) Anatomical Collection Method Collection Time Re ceived Time Location / / Volume Laterality Stool specimen 06/01/1999 4:24 PM (specimen) CDT Jacquie Schmitt MD LABORATORY Performing Organization Address City/State/ZIP Code Phon e Number [facility] documented in this encounter Visit Diagnoses Diagnosis Family history of malignant neoplasm of gastrointestinal tract documented in this encounter Care Teams Notch Machine Operator Relationship Specialty Start Date End Date Jacquie Schmitt MD PCP - General 04/07/1999 11/19/[address], [facility] 100 [place] [address] documented as of this encounter
--- OUTSIDE RECORDS SUMMARY | 2022-08-18 09:37 | XMS_ITS | Encounter Summary ---
:1945 Author Organization [facility] Address [address] [place] [address] Care Team Providers Name Role Phone Jacquie Schmitt MD Primary Care Provider Encounter Details Date Type Department Care Team Description 03/15/2000 Telephone [facility] ysicians Brendan John MD [address] [place] [address] Social History Tobacco Use Types Packs/Day Years Used Date Smoking Tobacco: Former Cigarettes Quit : 11/07/1995 Alcohol Use Standard Drinks/Week Comments Not Asked 0 (1 standard drink = 0.6 oz pure alcoho l) Sex Assigned at Date Recorded Female 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 - Seema Cunha Started and completed on TueMarch 15, 2000 5:16 PM CALL RECEIVED. Contact: [phone] I think with prior authorizations the prescribing Md needs to take a look at this as they are in a g ood position to know what modes of treatment they have used previously and what the response has bee n, so this will need to wait until Dr Schmitt is back in the [facility].Let the pt know that Dr Schmitt willattend to this next week. - Dr. Brendan John Started and completed on TueMarch 15, 2000 5:03 PM Staff Message copied by BRENDAN JOHN on 03/15/2000 at 5:00 PM ------ Message from: ELVIA WHITE Contact: Dr Schmitt's patient needs Prio Auth for Retin A Microgel that was prescribed on 03/07. - [employer] - Dr. Brendan John Started and completed on TueMarch 15, 2000 5:00 PM documented in this encounter Plan of Treatment Not on filedocumented as of this encounter Visit Diagnoses Not on filedocumented in this encounter Care Teams Store Sales Consultant Relationship Specialty Start Date End Date Jacquie Schmitt MD PCP - General 11/24/99 02/11/14 [address] , [facility] 100 [place] [address] documented as of this encounter
--- OUTSIDE RECORDS SUMMARY | 2022-08-18 09:37 | XMS_ITS | Encounter Summary ---
:1945 Author Organization [facility] Address [address] [place] [address] Care Team Providers Name Role Phone Jacquie Schmitt MD Primary Care Provider Reason for Visit Reason Comments Pt. Information/instruction Encounter Details Date Type Department Care Team Description 09/08/1999 Telephone [facility] Jose Daniel Bennett, VANDANA N Pt. 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 Brian Delgadillo note on 03/15/94. >> CALL RECEIVED. Contact: >> JOSE DANIEL BENNETT 09/08/1999 10:50 am chart requested. Staff Message copied by JOSE DANIEL BENNETT on 09/08/1999 at 10:49 AM ------ Message from: ANNABEL HUGHES rafita her called and he is applying for cancer insurance and needs to know what type of cancer can had in 1994(basal or ?). please call him today before 2:oo and let him [phone]. documented in this encounter Plan of Treatment Not on filedocumented as of this encounter Visit Diagnoses Not on filedocumented in this encounter Care Teams Commercial Baking Teacher Relationship Specialty Start Date End Date Jacquie Schmitt MD PCP - General 04/07/1999 11/19/[address], [facility] 100 [place] [address] documented as of this encounter
--- OUTSIDE RECORDS SUMMARY | 2022-08-18 09:39 | XMS_ITS | Encounter Summary ---
:1945 Author Organization [facility] Address [address] [place] [address] Care Team Providers Name Role Phone Elsewhere, Pcp Primary Care Provider Unavailable Encounter Details Date Type Department Care Team Description 08/24/2021 Documentation Department of Radiation Rose Marie Ledbetter I., [facility] [place] [address] [facility] [address] [place] [phone] (Wo rk) Social History Tobacco Use Types Packs/Day Years Used Date Smoking Tobacco: Former Cigarettes 0 0 Quit : 11/07/1994 Smokeless Tobacco: Never Alcohol Use Standard Drinks/Week Comments Yes 0 (1 standard drink = 0.6 oz pure alcoho l) Alcohol Habits Answer Date Recorded How often do you have a drink containing alcohol? 2-4 times a month 05/22/2021 How many drinks containing alcohol do you have on a 1 or 2 05/22/2021 typical day when you are drinking? How often do you have six or more drinks on one Never 05/22/2021 occasion? Comment: Not asked Social Isolation Answer Date Recorded In a typical week, how many times do you More than three mary es a week 05/22/2021 talk on the phone with family, friends, or neighbors? How often do you get together with friends Not asked or relatives? How often do you attend advent or Patient refused 2020 jewish services? Do you belong to any clubs or Patient refused 05/22/2021 organizations such as advent groups, unions, fraternal or athletic groups, or school groups? How often do you attend meetings of the Patient refused 05/22/2021 clubs or organizations you belong to? Are you now , , , 05/22/2021 , never or living with a partner? Financial Resource Strain Answer Date Recorded How hard is it for you to pay for the very basics like Not h henry at all 05/22/2021 food, housing, medical care, and heating? Intimate Partner Violence Answer Date Recorded Within the last year, have you been afraid of your partner o r No 05/22/2021 ex-partner? Within the last year, have you been humiliated or emotionall y No 05/22/2021 abused in other ways by your partner or ex-partner? Within the last year, have you been kicked, hit, slapped, or No 05/22/2021 otherwise physically hurt by your partner or ex-partner? Within the last year, have you been raped or forced to have any No 05/22/2021 kind of sexual activity by your partner or ex-partner? Food Insecurity Answer Date Recorded Within the past 12 months, you worried that your food would Never true 05/22/2021 run out before you got money to buy more. Within the past 12 months, the food you bought just didn't N ever true 05/22/2021 last and you didn't have money to get more. Transportation Needs Answer Date Recorded In the past 12 months, has lack of transportation kept you f rom No 05/22/2021 medical appointments or from getting medications? In the past 12 months, has lack of transportation kept you f rom No 05/22/2021 meetings, work, or getting things needed for daily living? Housing Stability Answer Date Recorded In the last 12 months, was there a time when you were not ab le No 05/22/2021 to pay the mortgage or rent on time? In the last 12 months, how many places have you lived? 1 05/22/2021 In the last 12 months, was there a time when you did not hav e a No 05/22/[address] to sleep or slept in a senior living (including now)? Education Answer Date Recorded What is the highest level of school Associate degree: bozena walker, 05/22/2021 you have completed or the highest technical, or vocational p rogram degree you have received? Sex Assigned at Date Recorded Female 07/24/2021 9:27 AM CDT documented as of this encounter Miscellaneous Notes Radiation Completion Notes - Herminia Quiroga R.N. - 08/24/2021 11:59 PM CDT DIAGNOSIS: 1. 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 Treatment Intent: Curative Concomitant Therapy: None Single Plan Treatment Course: 1x RT Breast Plan ID Fractions Dose / Fraction (cGy) Dose Treated (cGy) Dose Planned (cGy) First Treatment Last Treatment Elapsed Days F1_RT Breast [phone] 07/29/2021 08/18/2021 20 [id number] 250 1000 1000 08/19/2021 08/24/2021 5 Treatment Site Summary [id number] 07/29/2021 08/24/2021 26 Course Summary 07/29/2021 08/24/2021 26 Radiation Modality: Photons CLINICAL SUMMARY Mrs. Shahnaz Phelps completed radiation treatment as planned without interruptions. The courseof treatment was tolerated with anticipated side effects. The patient experienced toxicities of grade 2 dermatitis during radiation treatment. TREATMENT RESPONSE: Response to treatment will be determined by post-treatment imaging and/or laboratory work. RECOMMENDED FOLLOW UP: Primary Medical Oncologist. She has follow-up with Dr. Shah the or 2nd week of September. We discussed that we will not schedule a follow-up appointment here. Signed by: Herminia Quiroga R.N., 09/02/2021 3:42 PM CDT [facility] [address] [place] [address] documented in this encounter Plan of Treatment Not on filedocumented as of this encounter Visit Diagnoses Not on filedocumented in this encounter Care Teams Credentialing Assistant Relationship Specialty Start Date End Date Elsewhere, Pcp PCP - General Family Medicine 05/22/21 documented as of this encounter
--- OUTSIDE RECORDS SUMMARY | 2022-08-18 09:39 | XMS_ITS | Clinical Summary ---
:1945 Author Organization [facility] Address [address] [place] [address] Care Team Providers Name Role Phone Elsewhere, Pcp Primary Care Provider Unavailable Source Comments Patient records contain information from all sites at [facility]. For routine questions regarding patient records, call [phone] during business hours, M-F 8:00 AM - 5:00 PM Central Time. Record requests for emergency care only can be directed to [phone] at any time.[facility] Allergies Active Allergy Reactions Severity Noted Date Comments Amoxicillin Hives Low 08/03/2021 Penicillins Hives High 12/18/2001 Itching rash hives Medications Medication Sig Dispensed Refills Start Date End Date Status acetaminophen (TYLENOL) Every 6 Hours 0 05/14/2020 Active 500 mg tablet as needed hydroCHLOROthiazide 25 mg daily. 0 02/07/2019 Active (HYDRODIURIL) 25 mg tablet losartan (COZAAR) 50 mg 0 05/01/2021 Active tablet doxycycline monohydrate Take 100 mg by 0 06/24/2021 Active (MONODOX) 100 mg capsule mouth 2 (two) times a day. omega 5-uvm-fma-fish oil Take by mouth. 0 Active 1,000 mg (120 mg-180 mg) capsule multivitamin capsule Take 1 capsule 0 Active by mouth daily. ibuprofen (ADVIL,MOTRIN) Take 200 mg by 0 Active 200 mg tablet mouth every 6 (six) hours as needed for pain. lidocaine (LIDODERM) 5 % Place on the 0 Active skin as needed. Apply to right knee for pain. 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 Fema le Right 07/03/2021 Cancer Staging: Clinical stage from 10/08: Stage IB (cT1c, cN0, cM0, G3, ER-, OR-, HER2-) - Unsigned Pathologic stage from 06/11/2021: No Stage Recommended (ypT0, pN0(sn), cM0) - Unsigned Immunizations Name Administration Dates Next Due SARS-COV-2 (COVID-19) - PFIZER (12 years or older) Family History Medical History Relation Name Comments Colon cancer Brother rajat Colon cancer Father anjali Colon cancer Mother bunny Endometrial cancer Mother bunny Breast cancer Paternal Grandmother marsha Relation Name Status Comments Brother rajat Father anjali Mother bunny Paternal Grandmother marsha Social History Tobacco Use Types Packs/Day Years [...] or relatives? How often do you attend adventism or Patient refused 2020 anglican services? Do you belong to any clubs or Patient refused 05/22/2021 organizations such as adventism groups, unions, fraternal or athletic groups, or [...] place to sleep or slept in a fci (including now)? Education Answer Date Recorded What is the highest level of school Associate degree: bozena walker, 05/22/2021 you have completed or the highest technical, or vocational p oseasram degree you have received? Sex Assigned at Date Recorded Female 07/24/2021 9:27 AM CDT Last Filed Vital Signs Vital Sign Reading Time Taken Comments Blood Pressure 135/62 07/06/2021 10:52 AM CDT Pulse 79 07/06/2021 10:52 AM CDT Temperature 36.5 ??C (97.7 ??F) 08/20/2021 11:03 AM CDT Respiratory Rate - - Oxygen Saturation - - Inhaled Oxygen Concentration - - Weight 89.5 kg (197 lb 5 oz) 08/20/2021 11:03 AM CDT Height 170 cm (5' 6.93) 07/06/2021 10:52 AM CDT Body Mass Index 30.97 07/06/2021 10:52 AM CDT Plan of Treatment Health Maintenance Due Date Last Done Comments Creatinine Level 1945 Hepatitis C Screening 1945 Sodium Level 1945 Potassium Level 02/08/2020 02/07/2019 COVID-19 Vaccine (4 - Booster for 09/16/2021 07/22/2021, , Pfizer series) 01/06/2021 Depression Screening (Annual 11/07/2021 PHQ-2) Fall Risk Screen (Annual) 11/07/2021 Influenza Vaccine (#1) 2022 10/18/2021, 08/21/2020, 08/11/2020, Additional history exists DTaP,Tdap,and Td Vaccines (3 - Td 08/20/2031 08/20/2021, , or Tdap) 03/29/2011, Additional history exists Pneumococcal vaccine (65+ years) Completed 02/27/2015, , 02/26/2012 Zoster Vaccines Completed 07/18/2019, 02/12/2019 Medical Devices Implanted Type Area Pit Supervisor Device Shelf Model / Identifier Expiration Date Ser ial / Lot Breast Other Breast Other Breast Knee Implant Knee Implant Knee Insurance Payer Benefit Plan / Subscriber ID Effective Dates Phone Addre ss Type Group HUMANA HUMANA CHOICE [id number] 2018-Present [phone] [address] [address] [place] [address] Care Teams Baker Chef Relationship Specialty Start Date End Date Elsewhere, Pcp PCP - General Family Medicine 05/22/21
--- OUTSIDE RECORDS SUMMARY | 2022-08-18 09:39 | XMS_ITS | Encounter Summary ---
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 [facility] Procedures Prior Auth Rad Tx [place] RADTN [place] DEL >=1 MEV COMPLEX [address] [place] [address] Referral ID Status Reason Start Date Expiration Date Visits Requ ested Visits Authorized [id number] Closed 07/14/2021 07/03/2022 19 19 Encounter Details Date Type Department Care Team Description 08/24/2021 Hospital Encounter Department of Radiation Luis Ledbetter I., Oncology [place] [address] [facility] [address] [place] [phone] Social History Tobacco Use Types Packs/Day Years [...] or relatives? How often do you attend tenriism or Patient refused 2020 faith services? Do you belong to any clubs or Patient refused 05/22/2021 organizations such as tenriism groups, unions, fraMethod CRM or athletic groups, or school groups? How [...] place to sleep or slept in a intermediate (including now)? Education Answer Date Recorded What is the highest level of school Associate degree: bozena walker, 05/22/2021 you have completed or the highest technical, or vocational p aparna degree you have received? Sex Assigned at Date Recorded Female 07/24/2021 9:27 AM CDT documented as of this encounter Medications at Time of Discharge Medication Sig Dispensed Refills Start Date End Date acetaminophen (TYLENOL) 500 mg Every 6 Hours as 0 05/14/2020 tablet needed doxycycline monohydrate Take 100 mg by 0 06/24/20 21 (MONODOX) 100 mg capsule mouth 2 (two) times a day. hydroCHLOROthiazide 25 mg daily. 0 02/07/2019 (HYDRODIURIL) 25 mg tablet ibuprofen (ADVIL,MOTRIN) 200 Take 200 mg by 0 mg tablet mouth every 6 (six) hours as needed for pain. lidocaine (LIDODERM) 5 % Place on the skin 0 as needed. Apply to right knee for pain. losartan (COZAAR) 50 mg tablet 0 05/01 multivitamin capsule Take 1 capsule by 0 mouth daily. omega 1-drk-stq-fish oil 1,000 Take by mouth. 0 mg (120 mg-180 mg) capsule documented as of this encounter Plan of Treatment Not on filedocumented as of this encounter Visit Diagnoses Not on filedocumented in this encounter Care Teams Pin Chaser Relationship Specialty Start Date End Date Elsewhere, Pcp PCP - General Family Medicine 05/22/21 documented as of this encounter
--- OUTSIDE RECORDS SUMMARY | 2022-08-18 09:39 | XMS_ITS | Encounter Summary ---
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 [facility] Procedures Prior Auth Rad Tx [place] RADTN [place] DEL >=1 MEV COMPLEX [address] [place] [address] Referral ID Status Reason Start Date Expiration Date Visits Requ ested Visits Authorized [id number] Closed 07/14/2021 07/03/2022 19 19 Encounter Details Date Type Department Care Team Description 08/21/2021 Hospital Encounter Department of Radiation Luis Ledbetter I., Oncology in [place] [address] [facility] [address] [place] [phone] Social History Tobacco Use Types Packs/Day Years [...] or relatives? How often do you attend episcopalian or Patient refused 2020 islam services? Do you belong to any clubs or Patient refused 05/22/2021 organizations such as episcopalian groups, unions, fraInventic or athletic groups, or school groups? How [...] 1 capsule by 0 mouth daily. omega 2-byd-vqb-fish oil 1,000 Take by mouth. 0 mg (120 mg-180 mg) capsule documented as of this encounter Plan of Treatment Not on filedocumented as of this encounter Visit Diagnoses Not on filedocumented in this encounter Care Teams Fender Mechanic Relationship Specialty Start Date End Date Elsewhere, Pcp PCP - General Family Medicine 05/22/21 documented as of this encounter
--- OUTSIDE RECORDS SUMMARY | 2022-08-18 09:39 | XMS_ITS | Encounter Summary ---
:1945 Author Organization [facility] Address [address] [place] [address] Care Team Providers Name Role Phone Elsewhere, Pcp Primary Care Provider Unavailable Reason for Referral Outpatient (Routine) - Canceled Specialty Diagnoses / Procedures Referred By Contact Refer red To Contact Radiation Oncology Rose Marie Ledbetter [facility] M.D. [address] [place] [phone] Referral ID Status Reason Start Date Expiration Date Visits V isits Requested Authorized [id number] Canceled 07/03/2021 07/03/2022 1 1 Reason for Visit Outpatient (Routine) - Canceled Specialty Diagnoses / Procedures Referred By Contact Refer red To Contact Radiation Oncology Rose Marie Ledbetter [facility] M.D. [address] [place] [phone] Referral ID Status Reason Start Date Expiration Date Visits V isits Requested Authorized [id number] Canceled 07/03/2021 07/03/2022 1 1 Encounter Details Date Type Department Care Team Description 08/24/2021 - Hospital Encounter Department of Kvng Ledbetter M.D. [address] [place] [phone] Malignant Neoplasm 09/09/2021 Radiation Oncology Caro Patel R.N. [address] [place] [phone] Of Breast Lower in [facility] Female Right (HCC) [address] (Primary Dx) [place] [phone] Social History Tobacco Use Types Packs/Day Years [...] or relatives? How often do you attend gnosticism or Patient refused 2020 religion services? Do you belong to any clubs or Patient refused 05/22/2021 organizations such as gnosticism groups, unions, fraternal or athletic groups, or [...] place to sleep or slept in a prison (including now)? Education Answer Date Recorded What [...] 1 capsule by 0 mouth daily. omega 7-yen-qir-fish oil 1,000 Take by mouth. 0 mg (120 mg-180 mg) capsule documented as of this encounter Progress Notes Caro Paetl R.N. - 08/24/2021 10:45 AM CDT SUBJECTIVE REASON FOR VISIT Evaluation for side effects while receiving radiation treatment Nurse visit HISTORY OF PRESENT ILLNESS Mrs. 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 She is now undergoing radiotherapy to the right breast. Treatment Course: 1x RT Breast Plan ID Fractions Dose / Fraction (cGy) Dose Treated (cGy) Dose Planned (cGy) First Treatment Last Treatment Elapsed Days F1_RT Breast 267 4005 4005 07/29/2021 08/18/2021 20 [id number] 250 1000 1000 08/19/2021 08/24/2021 5 Treatment Site Summary 5005 5005 07/29/2021 08/24/2021 26 Course Summary 07/29/2021 08/24/2021 26 Patient reports that she is applying Cerave lotion to treatment area 4 times a day. OBJECTIVE There were no vitals taken for this visit. PHYSICAL EXAM General: Alert and oriented in no apparent distress. Skin: Moderate erythema and folliculitis, primarily in the upper inner quadrant of the right breast. ASSESSMENT / PLAN The patient is tolerating radiation treatment well overall. She will continue with current skin careroutine. If skin opens or blisters, she will contact our care team. She was asked to contact us withany questions or concerns. She verbally expressed her understanding of the plan. Signed by: Caro Patel R.N. 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
--- OUTSIDE RECORDS SUMMARY | 2022-08-18 09:39 | XMS_ITS ---
:1945 Author Organization [facility] Address [address] [place] [address] Care Team Providers Name Role Phone Elsewhere, Pcp Primary Care Provider Unavailable 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 Fema le Right 07/03/2021 Cancer Staging: Clinical stage from 10/08: Stage IB (cT1c, cN0, cM0, G3, ER-, [place]-, HER2-) - Unsigned Pathologic stage from 06/11/2021: No Stage Recommended (ypT0, pN0(sn), cM0) - Unsigned Current Oncology Plans No current plan information found. Past Plans No past plan information found. Radiation Treatments Plan Last Treated Elapsed Days Fractions Prescribed Prescribed Total On Treated Fraction Dose Dose [id number] 08/24/2021 26 4 of 4 250 cGy 1,000 cGy T F1_RT Breast 08/18/2021 20 15 of 15 267 cGy 4,005 cGy Reference Point Last Treated On Elapsed Days Session Dose Total Dos e [id number] 08/24/2021 26 250 cGy 5,005 cGy
--- OUTSIDE RECORDS SUMMARY | 2022-08-18 09:40 | XMS_ITS | Encounter Summary ---
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 [facility] Region Procedures Management Visit [address] [place] [address] Referral ID Status Reason Start Date Expiration Date Visits Requ ested Visits Authorized [id number] Closed 07/03/2021 07/03/2022 10 10 Encounter Details Date Type Department Care Team Description 08/11/2021 Hospital Encounter Department of Rose Marie Ledbetter Neoplasm Radiation Oncology [place] Of Breast Lower in [place], [address] [place], [place] Female Right (HCC) [address] [facility] [address] [place], [place] [phone] (Work) [phone] Social History Tobacco Use Types Packs/Day Years [...] or relatives? How often do you attend baptist or Patient refused 2020 shinto services? Do you belong to any clubs or Patient refused 05/22/2021 organizations such as baptist groups, unions, fraternal or athletic groups, or [...] place to sleep or slept in a long term (including now)? Education Answer Date Recorded What is the highest level of school Associate degree: bozena walker, 05/22/2021 you have completed or the highest technical, or vocational p aparna degree you have received? Sex Assigned at Date Recorded Female 07/24/2021 9:27 AM CDT documented as of this encounter Last Filed Vital Signs Vital Sign Reading Time Taken Comments Blood Pressure - - Pulse - - Temperature 36.5 ??C (97.7 ??F) 08/11/2021 12:18 PM CDT Respiratory Rate - - Oxygen Saturation - - Inhaled Oxygen Concentration - - Weight 89.7 kg (197 lb 12 oz) 08/11/2021 12:18 PM CDT Height - - Body Mass Index 31.04 07/06/2021 10:52 AM CDT documented in this encounter Medications [...] 1 capsule by 0 mouth daily. omega 5-twh-sea-fish oil 1,000 Take by mouth. 0 mg (120 mg-180 mg) capsule documented as of this encounter Progress Notes Rose Marie Ledbetter M.D. - 08/11/2021 12:30 PM CDT Diagnosis: Right sided breast cancer Radiation Treatment Progress Summary Treatment Course: 1x RT Breast Plan ID Fractions Dose / Fraction (cGy) Dose Treated (cGy) Dose Planned (cGy) First Treatment Last Treatment Elapsed Days F1_RT Breast 267 2403 4005 07/29/2021 08/10/2021 12 F16 RT Breast boost 250 1000 Course Summary 07/29/2021 08/10/2021 12 SUBJECTIVE Mrs. Shahnaz Phelps a 75 y.o. reports that she feels well. She denies pain, fevers, chills, cough, breast pain or concerns. She is applying lotion two or three times per day. OBJECTIVE Temp 36.5 ??C (Temporal) Wt 89.7 kg BMI 31.04 kg/m?? PHYSICAL EXAM General appearance: alert, appears stated age, cooperative and no distress Breasts: Minimal erythema in the right inframmary fold. No desquamation. ASSESSMENT / PLAN #1 Stage IB (cT1c, cN0, cM0, G3, ER-, [place]-, HER2-) invasive ductal carcinoma of the right breast s/p neoadjuvant chemotherapy and right breast lumpectomy with final pathologic staging ypT0 pN0(sn) #2 Radiotherapy to the right breast initiated on July 29, 2021; anticipated completion on August 24, 2021 ?? The patient is tolerating radiotherapy well. We will continue as planned. Signed by: Rose Marie Ledbetter M.D. 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
--- OUTSIDE RECORDS SUMMARY | 2022-08-18 09:40 | XMS_ITS | Encounter Summary ---
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 [facility] Procedures Prior Auth Rad Tx [place] RADTN [place] DEL >=1 MEV COMPLEX [address] [place] [address] Referral ID Status Reason Start Date Expiration Date Visits Requ ested Visits Authorized [id number] Closed 07/14/2021 07/03/2022 19 19 Encounter Details Date Type Department Care Team Description 08/17/2021 Hospital Encounter Department of Radiation Luis Ledbetter I., Oncology in [place] [address] [facility] [address] [place] [phone] Social History Tobacco Use Types Packs/Day Years [...] or relatives? How often do you attend samaritan or Patient refused 2020 zoroastrianism services? Do you belong to any clubs or Patient refused 05/22/2021 organizations such as samaritan groups, unions, fraNewStep Networks or athletic groups, or school groups? How [...] place to sleep or slept in a mcc (including now)? Education Answer Date Recorded What [...] 1 capsule by 0 mouth daily. omega 4-whp-jwt-fish oil 1,000 Take by mouth. 0 mg (120 mg-180 mg) capsule documented as of this encounter Plan of Treatment Not on filedocumented as of this encounter Visit Diagnoses Not on filedocumented in this encounter Care Teams Manager Spa Relationship Specialty Start Date End Date Elsewhere, Pcp PCP - General Family Medicine 05/22/21 documented as of this encounter
--- OUTSIDE RECORDS SUMMARY | 2022-08-18 09:40 | XMS_ITS | Encounter Summary ---
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 [facility] Procedures Prior Auth Rad Tx [place] RADTN TX DEL >=1 MEV COMPLEX [address] [place] [address] Referral ID Status Reason Start Date Expiration Date Visits Requ ested Visits Authorized [id number] Closed 07/14/2021 07/03/2022 19 19 Encounter Details Date Type Department Care Team Description 08/10/2021 Hospital Encounter Department of Radiation Luis Ledbetter I., Oncology in [place] [address] [facility] [address] [place] [phone] Social History Tobacco Use Types Packs/Day Years [...] or relatives? How often do you attend buddhist or Patient refused 2020 advent services? Do you belong to any clubs or Patient refused 05/22/2021 organizations such as buddhist groups, unions, [email or web address] or athletic groups, or school groups? How [...] place to sleep or slept in a alf (including now)? Education Answer Date Recorded What [...] 1 capsule by 0 mouth daily. omega 4-mxe-jch-fish oil 1,000 Take by mouth. 0 mg (120 mg-180 mg) capsule documented as of this encounter Plan of Treatment Not on filedocumented as of this encounter Visit Diagnoses Not on filedocumented in this encounter Care Teams Evs Tech Relationship Specialty Start Date End Date Elsewhere, Pcp PCP - General Family Medicine 05/22/21 documented as of this encounter
--- OUTSIDE RECORDS SUMMARY | 2022-08-18 09:40 | XMS_ITS | Encounter Summary ---
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 [facility] Procedures Prior Auth Rad Tx [place] RADTN [place] DEL >=1 MEV COMPLEX [address] [place] [address] Referral ID Status Reason Start Date Expiration Date Visits Requ ested Visits Authorized [id number] Closed 07/14/2021 07/03/2022 19 19 Encounter Details Date Type Department Care Team Description 08/13/2021 Hospital Encounter Department of Radiation Luis Ledbetter I., [place]cology [place] [address] [facility] [address] [place] [phone] Social History Tobacco Use Types Packs/Day Years [...] or relatives? How often do you attend buddhism or Patient refused 2020 anglican services? Do you belong to any clubs or Patient refused 05/22/2021 organizations such as buddhism groups, unions, fraInbox Health or athletic groups, or school groups? How [...] place to sleep or slept in a half-way (including now)? Education Answer Date Recorded What [...] 1 capsule by 0 mouth daily. omega 6-ddi-ucv-fish oil 1,000 Take by mouth. 0 mg (120 mg-180 mg) capsule documented as of this encounter Plan of Treatment Not on filedocumented as of this encounter Visit Diagnoses Not on filedocumented in this encounter Care Teams Yeast Maker Relationship Specialty Start Date End Date Elsewhere, Pcp PCP - General Family Medicine 05/22/21 documented as of this encounter
--- OUTSIDE RECORDS SUMMARY | 2022-08-18 09:40 | XMS_ITS | Encounter Summary ---
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 [facility] Procedures Prior Auth Rad Tx [place] RADTN TX DEL >=1 MEV COMPLEX [address] [place] [address] Referral ID Status Reason Start Date Expiration Date Visits Requ ested Visits Authorized [id number] Closed 07/14/2021 07/03/2022 19 19 Encounter Details Date Type Department Care Team Description 08/06/2021 Hospital Encounter Department of Radiation Luis Ledbetter I., Oncology in [place] [address] [facility] [address] [place] [phone] Social History Tobacco Use Types Packs/Day Years [...] or relatives? How often do you attend uatsdin or Patient refused 2020 advent services? Do you belong to any clubs or Patient refused 05/22/2021 organizations such as uatsdin groups, unions, fraREach or athletic groups, or school groups? How [...] 1 capsule by 0 mouth daily. omega 9-wkw-szb-fish oil 1,000 Take by mouth. 0 mg (120 mg-180 mg) capsule documented as of this encounter Plan of Treatment Not on filedocumented as of this encounter Visit Diagnoses Not on filedocumented in this encounter Care Teams Under Presser Relationship Specialty Start Date End Date Elsewhere, Pcp PCP - General Family Medicine 05/22/21 documented as of this encounter
--- OUTSIDE RECORDS SUMMARY | 2022-08-18 09:40 | XMS_ITS | Encounter Summary ---
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 [facility] Procedures Prior Auth Rad Tx [place] RADTN TX DEL >=1 MEV COMPLEX [address] [place] [address] Referral ID Status Reason Start Date Expiration Date Visits Requ ested Visits Authorized [id number] Closed 07/14/2021 07/03/2022 19 19 Encounter Details Date Type Department Care Team Description 08/20/2021 Hospital Encounter Department of Radiation Luis Ledbetter I., [place]cology in [place] [address] [facility] [address] [place] [phone] Social History Tobacco Use Types Packs/Day Years [...] or relatives? How often do you attend mandaen or Patient refused 2020 baptism services? Do you belong to any clubs or Patient refused 05/22/2021 organizations such as mandaen groups, unions, fraPetHub or athletic groups, or school groups? How [...] place to sleep or slept in a skilled nursing (including now)? Education Answer Date Recorded What [...] 1 capsule by 0 mouth daily. omega 9-tnq-nhu-fish oil 1,000 Take by mouth. 0 mg (120 mg-180 mg) capsule documented as of this encounter Plan of Treatment Not on filedocumented as of this encounter Visit Diagnoses Not on filedocumented in this encounter Care Teams Switch Repairer Relationship Specialty Start Date End Date Elsewhere, Pcp PCP - General Family Medicine 05/22/21 documented as of this encounter
--- OUTSIDE RECORDS SUMMARY | 2022-08-18 09:40 | XMS_ITS | Encounter Summary ---
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 [facility] Procedures Prior Auth Rad Tx [place] RADTN [place] DEL >=1 MEV COMPLEX [address] [place] [address] Referral ID Status Reason Start Date Expiration Date Visits Requ ested Visits Authorized [id number] Closed 07/14/2021 07/03/2022 19 19 Encounter Details Date Type Department Care Team Description 08/07/2021 Hospital Encounter Department of Radiation Luis Ledbetter I., [place] [address] [facility] [address] [place] [phone] Social History Tobacco Use Types Packs/Day Years [...] or relatives? How often do you attend mormon or Patient refused 2020 buddhist services? Do you belong to any clubs or Patient refused 05/22/2021 organizations such as mormon groups, unions, fraTrueNorthLogic or athletic groups, or school groups? How [...] to sleep or slept in a senior care (including now)? Education Answer Date Recorded What [...] 1 capsule by 0 mouth daily. omega 0-tor-ivm-fish oil 1,000 Take by mouth. 0 mg (120 mg-180 mg) capsule documented as of this encounter Plan of Treatment Not on filedocumented as of this encounter Visit Diagnoses Not on filedocumented in this encounter Care Teams Paper Feeder Relationship Specialty Start Date End Date Elsewhere, Pcp PCP - General Family Medicine 05/22/21 documented as of this encounter
--- OUTSIDE RECORDS SUMMARY | 2022-08-18 09:40 | XMS_ITS | Encounter Summary ---
:1945 Author Organization [facility] Address [address] [place] [address] Care Team Providers Name Role Phone Elsewhere, Pcp Primary Care Provider Unavailable Reason for Visit Radiation Therapy (Routine) - Closed Specialty Diagnoses / Procedures Referred By Contact Refer red To Contact Diagnoses Malignant Neoplasm Of Breast Lower Inner Quadrant Female Right (HCC) Rose Marie Ledbetter M.D. [facility] Procedures Prior Auth Rad Tx [place] RADTN [place] DEL >=1 MEV COMPLEX [address] [place] [address] Referral ID Status Reason Start Date Expiration Date Visits Requ ested Visits Authorized [id number] Closed 07/14/2021 07/03/2022 19 19 Encounter Details Date Type Department Care Team Description 08/18/2021 Hospital Encounter Department of Radiation Luis Ledbetter I., [place] [address] [facility] [address] [place] [phone] Social History Tobacco Use Types Packs/Day Years [...] or relatives? How often do you attend quaker or Patient refused 2020 jehovah's witness services? Do you belong to any clubs or Patient refused 05/22/2021 organizations such as quaker groups, unions, fraTrident University or athletic groups, or school groups? How [...] place to sleep or slept in a mcfp (including now)? Education Answer Date Recorded What [...] 1 capsule by 0 mouth daily. omega 4-idb-iph-fish oil 1,000 Take by mouth. 0 mg (120 mg-180 mg) capsule documented as of this encounter Plan of Treatment Not on filedocumented as of this encounter Visit Diagnoses Not on filedocumented in this encounter Care Teams Setter Cold Rolling Machine Relationship Specialty Start Date End Date Elsewhere, Pcp PCP - General Family Medicine 05/22/21 documented as of this encounter
--- OUTSIDE RECORDS SUMMARY | 2022-08-18 09:40 | XMS_ITS | Encounter Summary ---
:1945 Author Organization [facility] Address [address] [place] [address] Care Team Providers Name Role Phone Elsewhere, Pcp Primary Care Provider Unavailable Reason for Referral Radiation Therapy (Routine) - Closed Specialty Diagnoses / Procedures Referred By Contact Refer red To Contact Diagnoses Malignant Neoplasm Of Breast Lower Inner Quadrant Female Right (HCC) Rose Marie Ledbetter M.D. [facility] Procedures Management Visit [address] [place] [address] Referral ID Status Reason Start Date Expiration Date Visits Requ ested Visits Authorized [id number] Closed 07/03/2021 07/03/2022 10 10 Reason for Visit Radiation Therapy (Routine) - Closed Specialty Diagnoses / Procedures Referred By Contact Refer red To Contact Diagnoses Malignant Neoplasm Of Breast Lower Inner Quadrant Female Right (HCC) Rose Marie Ledbetter M.[facility]. [facility] Procedures Management Visit [address] [place] [address] Referral ID Status Reason Start Date Expiration Date Visits Requ ested Visits Authorized [id number] Closed 07/03/2021 07/03/2022 10 10 Encounter Details Date Type Department Care Team Description 08/20/2021 Hospital Encounter Department of Rose Marie Ledbetter Neoplasm Radiation Oncology [place] Of Breast [facility] in [place], [address] [place], [place] Female Right (HCC) [address] [facility] [address] [place], [place] [phone] (Work) [phone] Social History Tobacco Use Types Packs/Day Years [...] or relatives? How often do you attend rastafarian or Patient refused 2020 christianity services? Do you belong to any clubs or Patient refused 05/22/2021 organizations such as rastafarian groups, unions, fraternal or athletic groups, or [...] place to sleep or slept in a chcf (including now)? Education Answer Date Recorded What [...] - - Temperature 36.5 ??C (97.7 ??F) 08/20/2021 11:03 AM CDT Respiratory Rate - - Oxygen Saturation - - Inhaled Oxygen Concentration - - Weight 89.5 kg (197 lb 5 oz) 08/20/2021 11:03 AM CDT Height - - Body Mass Index 30.97 07/06/2021 10:52 AM CDT documented in this [...] 1 capsule by 0 mouth daily. omega 7-ehe-gij-fish oil 1,000 Take by mouth. 0 mg (120 mg-180 mg) capsule documented as of this encounter Progress Notes Lashay Oropeza P.A.-C., M.S. - 08/20/2021 11:00 AM CDT SUBJECTIVE REASON FOR VISIT Evaluation for side effects while receiving radiation treatment for 1. 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 HISTORY OF PRESENT ILLNESS Mrs. 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 She is now undergoing radiotherapy to the right breast. Treatment Course: 1x RT Breast Plan ID Fractions Dose / Fraction (cGy) Dose Treated (cGy) Dose Planned (cGy) First Treatment Last Treatment Elapsed Days F1_RT Breast [id number] 07/29/2021 08/18/2021 20 [id number] 08/19/2021 08/20/2021 1 Treatment Site Summary [id number] 07/29/2021 08/20/2021 Course Summary 07/29/2021 08/20/2021 Her oncologic history is as follows: 1. 2019: Abdominal CT scanned performed for surveillance of carcinoid tumor demonstrated a mass in her breast. 2. October 27, 2020: Right breast diagnostic mammogram demonstrated a mass within the medial right breast slightly inferiorly 12 cm from the nipple. No architectural distortion. No suspicious adenopathy or calcifications. Targeted right breast ultrasound performed at the 4 o'clock position, lower inner quadrant of the right breast, 12 cm from the nipple demonstrated a lobulated, hypoechoic and partially shadowing, solid mass measuring 1.6 x 1.6 x 1.5 cm. Some of the margins were angular and the height was nearly as tall as the width. BI-RADS 4. 3. November 04, 2020: Vacuum assisted, ultrasound-guided core needle biopsy of the suspicious mass in the right breast at the 4 o'clock position, 10 cm from the nipple, with clip placement was performed. Pathology demonstrated invasive ductal carcinoma, Angelita grade 3. Angiolymphatic invasion was absent. Associated DCIS was absent. Estrogen receptor negative. Progesterone receptor negative. HER2 by IHC negative (1+). 4. November 10, 2020: Surgery consultation with Dr. Coco Krishnan who recommended consultation with Medical Oncology for neoadjuvant chemotherapy which would then be followed by surgery. She felt that thepatient would be a candidate for breast conservation therapy. 5 November 14, 2020: MRI of the bilateral breasts demonstrated in the right breast at the 3 o'clock position far posteriorly was an enhancing mass with internal signal void a biopsy clip representing thesite of biopsy-proven carcinoma measuring 2.0 x 1.6 x 2.0 cm. Approximately 1.4 cm lateral from the known carcinoma near the 4 o'clock position was a 0.6 cm enhancing lesion suspicious for a satellite lesion. In the central to slightly 9 o'clock position anteriorly was an enhancing lesion measuring 0.9 x 0.7 x 0.4 cm. No other suspicious mass or suspicious enhancement. No suspicious mass or suspicious enhancement in the left breast. No lymphadenopathy. BI-RADS 4. 6. November 18, 2020: Medical Oncology consultation with Dr. Singh Colon who discussed preoperativechemotherapy versus adjuvant chemotherapy. Physical examination of the right breast demonstrated a hard mass measuring approximately 2 cm at the 3 o'clock position. The mass was mobile against the chest wall. No axillary adenopathy. 7. November 27, 2020: Ultrasound of the medial right breast at posterior depth demonstrated a small, hypoechoic nodule with no distal acoustic shadowing measuring 7 x 4 x 6 mm. This was located adjacentto the chest wall and was not amenable to percutaneous biopsy. A small artery was located immediately adjacent to the nodule in the nodule sat directly on the pectoralis muscle in the supine position. This was located at the 3 o'clock position, right breast, 7 cm from the nipple. Additionally, there was a solid, lobular, hypoechoic nodule within the right breast at the 9 o'clock position, 1 cm from the nipple, corresponding to the MRI measuring 1.1 x 0.8 cm. BI-RADS 4. 8. November 27, 2020: Ultrasound-guided, vacuum assisted core needle biopsy of the indeterminate nodule in the right breast at the 9 o'clock position, 1 cm from the nipple was performed. Pathology demonstrated a fibroadenoma. 9. December 08, 2020: Right internal jugular Port-A-Cath placement. 10. December 08, 2020 through January 20, 2021: Neoadjuvant dose dense AC chemotherapy x4 cycles. 11. January 29, 2021: Ultrasound of the right breast at the 4 o'clock position, between 10 and 12 cm from the nipple, demonstrated a hypoechoic irregular solid mass measuring 1.7 x 0.8 x 1.0 cm. This hadclearly decreased in size compared to the prior study, likely due to interval chemotherapy. Within the mid outer right breast at the 9 o'clock position, 1 cm from the nipple, was a 6 x 9 x 11 mm hypoechoic solid irregular nodule. This had not significantly changed. A small nodule previously described as residing within the 3 o'clock position, 7 cm from the nipple was not evident. 12. February 02, 2021 through May 04, 2021: Paclitaxel x 12 weekly doses. 13. March 02, 2021: Appointment with Dr. Eyal Shah where physical examination demonstrated no palpable masses in the right breast. 14. May 08, 2021: MRI of the bilateral breasts demonstrated response to chemotherapy. The site of the known breast cancer in the medial tissue no longer showed a mass. Negative for enhancement. 15. May 28, 2021: Ultrasound of the right breast at the 4 o'clock position, 12 cm from the nipple, identified the previous biopsy clip. There was no significant mass seen on ultrasound surrounding theclip. Attempt was made to evaluate for the area of enhancement seen on MRI which was noted to be 1.4cm from the principal mass. The potential satellite lesion was not identified with ultrasound. 16. June 11, 2021: Right breast lumpectomy and right axillary sentinel lymph node biopsy was performed by Dr. Coco Krishnan. Dissection was taken 2 cm further laterally with hopes to encompass the second small satellite lesion. Pathology of the right breast demonstrated no residual invasive carcinoma identified. Tumor bed changes were present measuring 20 x 17 x 17 mm. Benign skeletal muscle. Re-excision of the posterior lateral and medial margins were performed. Negative for metastatic malignancy in two right axillary sentinel lymph nodes (0/2). No treatment effect identified. One intramammary lymph node was negative for metastatic malignancy (0/1). ypT0 pN0 17. June 22, 2021: Port removal was performed. 18. June 22, 2021: Appointment with Dr. Shah who recommended referral to Radiation Oncology to review the role of postoperative radiation therapy status post lumpectomy. Follow-up in 3 months for her carcinoid and breast carcinoma. 19. July 29, 2021 anticipated through August 24, 2021: Radiation therapy to the right breast [place] dose [place] 5005 cGy in 19 fractions. The patient was seen and examined today with Dr. Ledbetter. The patient reports doing well overall. She did notice increased skin irritation last night in the upper inner portion of the right breast. She reports that Aquaphor didn't help with the skin irritation, but CeraVe did. She reports decreased energy with treatment. She denies shortness or breath or cough. She denies lymphedema. She denies numbness or tingling. She reports occasional sharp shooting pains, but denies persistent pain. PATIENT REPORTED SYMPTOM SCREEN FATIGUE (Scale: 0 = no fatigue; 10 = worst fatigue you can imagine): 1-2 PAIN (Scale: 0 = no pain; 10 = worst pain you can imagine): 0 OVERALL QUALITY OF LIFE (Scale: 0 = as bad as can be; 10 = as good as can be): 9-10 OBJECTIVE Temp 36.5 ??C (Temporal) Wt 89.5 kg BMI 30.97 kg/m?? PHYSICAL EXAM General: Alert and oriented in no apparent distress. Skin: Moderate erythema and folliculitis, primarily in the upper inner quadrant of the right breast. ASSESSMENT / PLAN #1 Stage IB (cT1c, cN0, cM0, G3, ER-, MA-, HER2-) invasive ductal carcinoma of the right breast s/p neoadjuvant chemotherapy and right breast lumpectomy with final pathologic staging ypT0 pN0(sn) #2 Radiotherapy to the right breast initiated on July 29, 2021; anticipated completion on August 24, 2021 The patient is tolerating radiation treatment well overall. She has developed increased radiation dermatitis. She was educated on the use of bsuq-wag-kdwdini 1% hydrocortisone cream if needed for itching. She was also educated on the use of dilute vinegar soaks and provided with a written handout of information. She will continue to apply CeraVe lotion to the skin. She would like another skin check on her last day of treatment, so we will schedule a nurse visit. She has follow-up with Dr. Shah the or week of September. We discussed that we will not schedule a follow-up appointment here. Shewas asked to contact us with any questions or concerns. She verbally expressed her understanding of the plan. Signed by: Lashay Oropeza P.A.-C., M.S. 08/20/2021 12:09 PM CDT Associated attestation - Rose Marie Ledbetter M.D. - 08/20/2021 12:30 PM CDT I saw and evaluated the patient and participated in the pineda portions of the service. I reviewed the documentation of Ms. Lashay Oropeza PA-C, and agree with the findings and plan. The patient appears well on exam. She has some folliculitis in the right upper breast. She did not feel the Aquaphor helpedand preferred the CeraVe lotion. She will get hydrocortisone cream if it is itching her. We will continue with radiation as planned and monitor weekly. We will have her get a nurse visit as she finishes up next week. We anticipate that Mrs. Shahnaz Phelps will complete radiation treatment as planned without interruptions. The course of treatment was tolerated well. The patient experienced toxicities of grade 2 dermatitis during radiation treatment. Rose Marie Ledbetter M.D., 08/20/2021 documented in this encounter Miscellaneous Notes Addendum Note - Charity Jones - 08/20/2021 11:00 AM CDT Encounter addended by: Charity Jones on: 08/21/2021 7:57 AM Actions taken: SmartForm saved, Letter saved documented in this encounter Plan of Treatment Scheduled Orders Name Type Priority Associated Diagnoses Order S chedule Management Visit Radiation Oncology Routine Malignant Neoplasm Once for 1 Of Breast Lower Occurrences starting Inner Quadrant 08/20/2021 un til Female Right (HCC) documented as of this encounter Visit Diagnoses Diagnosis Malignant Neoplasm Of Breast Lower Inner Quadrant Female Right (HCC) documented in this encounter Care Teams Ticket Machine Operator Relationship Specialty Start Date End Date Elsewhere, Pcp PCP - General Family Medicine 05/22/21 documented as of this encounter
--- OUTSIDE RECORDS SUMMARY | 2022-08-18 09:40 | XMS_ITS | Encounter Summary ---
:1945 Author Organization [facility] Address [address] [place] [address] Care Team Providers Name Role Phone Elsewhere, Pcp Primary Care Provider Unavailable Reason for Visit Radiation Therapy (Routine) - Closed Specialty Diagnoses / Procedures Referred By Contact Refer red To Contact Diagnoses Malignant Neoplasm Of Breast Lower Inner Quadrant Female Right (HCC) Rose Marie Ledbetter M.D. [facility] Procedures Prior Auth Rad Tx [place] RADTN [place] DEL >=1 MEV COMPLEX [address] [place] [address] Referral ID Status Reason Start Date Expiration Date Visits Requ ested Visits Authorized [id number] Closed 07/14/2021 07/03/2022 19 19 Encounter Details Date Type Department Care Team Description 08/14/2021 Hospital Encounter Department of Radiation Luis Ledbetter I., Oncology in [place] [address] [facility] [address] [place] [phone] Social History Tobacco Use Types Packs/Day Years [...] you attend samaritan or Patient refused 2020 confucianist services? Do you belong to any clubs or Patient refused 05/22/2021 organizations such as samaritan groups, unions, fraScientific [employer] ([employer]) or athletic groups, or school groups? How [...] place to sleep or slept in a retirement (including now)? Education Answer Date Recorded What [...] 1 capsule by 0 mouth daily. omega 6-xwu-wjk-fish oil 1,000 Take by mouth. 0 mg (120 mg-180 mg) capsule documented as of this encounter Plan of Treatment Not on filedocumented as of this encounter Visit Diagnoses Not on filedocumented in this encounter Care Teams Train Conductor Relationship Specialty Start Date End Date Elsewhere, Pcp PCP - General Family Medicine 05/22/21 documented as of this encounter
--- OUTSIDE RECORDS SUMMARY | 2022-08-18 09:40 | XMS_ITS | Encounter Summary ---
:1945 Author Organization [facility] Address [address] [place] [address] Care Team Providers Name Role Phone Elsewhere, Pcp Primary Care Provider Unavailable Reason for Visit Radiation Therapy (Routine) - Closed Specialty Diagnoses / Procedures Referred By Contact Refer red To Contact Diagnoses Malignant Neoplasm Of Breast Lower Inner Quadrant Female Right (HCC) Rose Marie Ledbetter M.D. [facility] Procedures Prior Auth Rad Tx [place] RADTN TX DEL >=1 MEV COMPLEX [address] [place] [address] Referral ID Status Reason Start Date Expiration Date Visits Requ ested Visits Authorized [id number] Closed 07/14/2021 07/03/2022 19 19 Encounter Details Date Type Department Care Team Description 08/12/2021 Hospital Encounter Department of Radiation Luis Ledbetter I., [place]cology [place] [address] [facility] [address] [place] [phone] Social History Tobacco Use Types Packs/Day Years [...] or relatives? How often do you attend holiness or Patient refused 2020 muslim services? Do you belong to any clubs or Patient refused 05/22/2021 organizations such as holiness groups, unions, fraReelGenie or athletic groups, or school groups? How [...] place to sleep or slept in a jail (including now)? Education Answer Date Recorded What [...] 1 capsule by 0 mouth daily. omega 9-nww-vrg-fish oil 1,000 Take by mouth. 0 mg (120 mg-180 mg) capsule documented as of this encounter Plan of Treatment Not on filedocumented as of this encounter Visit Diagnoses Not on filedocumented in this encounter Care Teams Antiquer Relationship Specialty Start Date End Date Elsewhere, Pcp PCP - General Family Medicine 05/22/21 documented as of this encounter
--- OUTSIDE RECORDS SUMMARY | 2022-08-18 09:40 | XMS_ITS | Encounter Summary ---
:1945 Author Organization [facility] Address [address] [place] [address] Care Team Providers Name Role Phone Elsewhere, Pcp Primary Care Provider Unavailable Reason for Visit Radiation Therapy (Routine) - Closed Specialty Diagnoses / Procedures Referred By Contact Refer red To Contact Diagnoses Malignant Neoplasm Of Breast Lower Inner Quadrant Female Right (HCC) Rose Marie Ledbetter M.D. [facility] Procedures Prior Auth Rad Tx [place] RADTN [place] DEL >=1 MEV COMPLEX [address] [place] [address] Referral ID Status Reason Start Date Expiration Date Visits Requ ested Visits Authorized [id number] Closed 07/14/2021 07/03/2022 19 19 Encounter Details Date Type Department Care Team Description 08/11/2021 Hospital Encounter Department of Radiation Luis Ledbetter I., [place]cology [place] [address] [facility] [address] [place] [phone] Social History Tobacco Use Types Packs/Day Years [...] or relatives? How often do you attend sikhism or Patient refused 2020 confucianist services? Do you belong to any clubs or Patient refused 05/22/2021 organizations such as sikhism groups, unions, fraLemon or athletic groups, or school groups? How [...] place to sleep or slept in a detention (including now)? Education Answer Date Recorded What [...] 1 capsule by 0 mouth daily. omega 1-okw-atz-fish oil 1,000 Take by mouth. 0 mg (120 mg-180 mg) capsule documented as of this encounter Plan of Treatment Not on filedocumented as of this encounter Visit Diagnoses Not on filedocumented in this encounter Care Teams Hay Sorter Relationship Specialty Start Date End Date Elsewhere, Pcp PCP - General Family Medicine 05/22/21 documented as of this encounter
--- OUTSIDE RECORDS SUMMARY | 2022-08-18 09:40 | XMS_ITS | Encounter Summary ---
:1945 Author Organization [facility] Address [address] [place] [address] Care Team Providers Name Role Phone Elsewhere, Pcp Primary Care Provider Unavailable Reason for Visit Radiation Therapy (Routine) - Closed Specialty Diagnoses / Procedures Referred By Contact Refer red To Contact Diagnoses Malignant Neoplasm Of Breast Lower Inner Quadrant Female Right (HCC) Rose Marie Ledbetter M.D. [facility] Procedures Prior Auth Rad Tx [place] RADTN TX DEL >=1 MEV COMPLEX [address] [place] [address] Referral ID Status Reason Start Date Expiration Date Visits Requ ested Visits Authorized [id number] Closed 07/14/2021 07/03/2022 19 19 Encounter Details Date Type Department Care Team Description 08/19/2021 Hospital Encounter Department of Radiation Luis Ledbetter I., [place]cology [place] [address] [facility] [address] [place] [phone] Social History Tobacco Use Types Packs/Day Years [...] or relatives? How often do you attend mu-ism or Patient refused 2020 jain services? Do you belong to any clubs or Patient refused 05/22/2021 organizations such as mu-ism groups, unions, fra[employer] ([employer]) or athletic groups, or school groups? How [...] 1 capsule by 0 mouth daily. omega 5-orn-uba-fish oil 1,000 Take by mouth. 0 mg (120 mg-180 mg) capsule documented as of this encounter Plan of Treatment Not on filedocumented as of this encounter Visit Diagnoses Not on filedocumented in this encounter Care Teams Fourth Mate Relationship Specialty Start Date End Date Elsewhere, Pcp PCP - General Family Medicine 05/22/21 documented as of this encounter
--- OUTSIDE RECORDS SUMMARY | 2022-08-18 09:41 | XMS_ITS | Encounter Summary ---
:1945 Author Organization [facility] Address [address] [place] [address] Care Team Providers Name Role Phone Elsewhere, Pcp Primary Care Provider Unavailable Reason for Visit Radiation Therapy (Routine) - Closed Specialty Diagnoses / Procedures Referred By Contact Refer red To Contact Diagnoses Malignant Neoplasm Of Breast Lower Inner Quadrant Female Right (HCC) Rose Marie Ledbetter M.D. [facility] Procedures Prior Auth Rad Tx [place] RADTN [place] DEL >=1 MEV COMPLEX [address] [place] [address] Referral ID Status Reason Start Date Expiration Date Visits Requ ested Visits Authorized [id number] Closed 07/14/2021 07/03/2022 19 19 Encounter Details Date Type Department Care Team Description 07/29/2021 Hospital Encounter Department of Radiation Luis Ledbetter I., Oncology in [place] [address] [place] [phone] Social History Tobacco Use Types Packs/Day Years [...] you attend advent or Patient refused 2020 protestant services? Do you belong to any clubs or Patient refused 05/22/2021 organizations such as advent groups, unions, [employer], formerly e-academy or athletic groups, or school groups? How [...] Start Date End Date acetaminophen (TYLENOL) 500 Every 6 Hours as 0 mg tablet needed doxycycline monohydrate Take 100 mg by 0 06/24/20 21 (MONODOX) 100 mg capsule mouth 2 (two) times a day. hydroCHLOROthiazide 25 mg daily. 0 02/07/2019 (HYDRODIURIL) 25 mg tablet losartan (COZAAR) 50 mg 0 05/01/2021 tablet potassium chloride Take 10 mEq by 0 05/04/2021 (KLOR-CON SPRINKLE) 10 mEq mouth 2 (two) ER sprinkle capsule times a day. sulfacetamide (BLEPH-10) 10 Administer 1 drop 5 mL 0 0 05/22/2021 08/03/2021 % ophthalmic solution into both eyes 4 (four) times a day. To use for 7 days documented as of this encounter Plan of Treatment Not on filedocumented as of this encounter Visit Diagnoses Not on filedocumented in this encounter Care Teams Insurance Checker Relationship Specialty Start Date End Date Elsewhere, Pcp PCP - General Family Medicine 05/22/21 documented as of this encounter
--- OUTSIDE RECORDS SUMMARY | 2022-08-18 09:41 | XMS_ITS | Encounter Summary ---
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 [facility] Procedures Prior Auth Rad Tx [place] RADTN TX DEL >=1 MEV COMPLEX [address] [place] [address] Referral ID Status Reason Start Date Expiration Date Visits Requ ested Visits Authorized [id number] Closed 07/14/2021 07/03/2022 19 19 Encounter Details Date Type Department Care Team Description 07/30/2021 Hospital Encounter Department of Radiation Luis Ledbetter I., Oncology [place] [address] [facility] [address] [place] [phone] Social History Tobacco Use Types Packs/Day Years [...] or relatives? How often do you attend pentecostal or Patient refused 2020 rastafari services? Do you belong to any clubs or Patient refused 05/22/2021 organizations such as pentecostal groups, unions, [employer] or athletic groups, or school groups? How [...] place to sleep or slept in a nursing home (including now)? Education Answer Date Recorded What [...] losartan (COZAAR) 50 mg 0 05/01/2021 tablet multivitamin capsule Take 1 capsule by 0 mouth daily. omega 0-wpi-hyy-fish oil Take by mouth. 0 1,000 mg (120 mg-180 mg) capsule potassium chloride Take 10 mEq by 0 [...] on filedocumented in this encounter Care Teams Night Cleaner Relationship Specialty Start Date End Date Elsewhere, Pcp PCP - General Family Medicine 05/22/21 documented as of this encounter
--- OUTSIDE RECORDS SUMMARY | 2022-08-18 09:41 | XMS_ITS | Encounter Summary ---
:1945 Author Organization [facility] Address [address] [place] [address] Care Team Providers Name Role Phone Elsewhere, Pcp Primary Care Provider Unavailable Reason for Referral Specialty Diagnoses / Procedures Referred By Contact Refer red To Contact Lashay Oropeza P.A.-C ., M.S. 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 [facility] Procedures Initial Rad Onc Treatment Planning CT Simulation [address] [place] [address] Referral ID Status Reason Start Date Expiration Date Visits Requ ested Visits Authorized [id number] Closed 07/03/2021 07/03/2022 1 1 Encounter Details Date Type Department Care Team Description 07/03/2021 Orders Only Department of Radiation Lashay Oropeza Mal ignant Neoplasm Of Oncology in [place], P.A.-C., M.S. Breast [facility] [address] [facility] Quadrant Female Right [address] [place], [place] (HCC) (Primary Dx) [place] [phone] Social History Tobacco Use Types Packs/Day Years [...] or relatives? How often do you attend zoroastrianism or Patient refused 2020 mosque services? Do you belong to any clubs or Patient refused 05/22/2021 organizations such as zoroastrianism groups, unions, fraternal or athletic groups, or [...] AM CDT documented as of this encounter Plan of Treatment Scheduled Orders Name Type Priority Associated Order Schedule Diagnoses Prior Auth Rad Tx Radiation Oncology Routine Malignant Neoplas m Ordered: 07/03/2021 Of Breast Lower Inner Quadrant Female Right (HCC) Management Visit Radiation Oncology Routine Malignant Neoplasm 10 Occurrences Of Breast Lower starting Inner Quadrant until 022 Female Right (HCC) Scheduled Referrals Name Type Priority Associated Diagnoses Order S chedule Radiation Oncology Outpatient Referral Routine Malignant Neopl asm Expected: - Nurse education Of Breast Lower 021 visit (clinic) Inner Quadrant (Approximat e), Female Right (HCC) Expires: 07/03/2022 documented as of this encounter Results Initial Rad Onc Treatment Planning CT Simulation (07/06/2021 1:24 PM CDT) Specimen (Source) Anatomical Location Collection Method / Collectio n Time Received Time / Laterality Volume Narrative OSMANY CRAWFORD - 07/06/2021 1:24 PM CDT Henna Fragoso, RTT ? 07/06/2021 ??1:24 PM Initial Rad Onc Treatment Planning CT Si mulation Date/Time: 07/06/2021 1:24 PM Performed by: Rose Marie Ledbetter M.D. Authorized by: Rose Marie Ledbetter M.D. Rose Marie Ledbetter M.D. 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
--- OUTSIDE RECORDS SUMMARY | 2022-08-18 09:41 | XMS_ITS | Encounter Summary ---
:1945 Author Organization [facility] Address [address] [place] [address] Care Team Providers Name Role Phone Elsewhere, Pcp Primary Care Provider Unavailable Reason for Visit Reason Comments left eye lid red. Encounter Details Date Type Department Care Team Description 05/22/2021 Office Visit [facility] Extern[facility] Medicine in [place], C.N.PMariam, Left Upper Eyelid [place] A.P.N.P. (Primary Dx) [address] [place] [id number] [phone] Social History Tobacco Use Types Packs/Day Years [...] or relatives? How often do you attend mormonism or Patient refused 2020 holiness services? Do you belong to any clubs or Patient refused 05/22/2021 organizations such as mormonism groups, unions, fraternal or athletic groups, or [...] completed or the highest technical, or vocational lavinia braun degree you have received? Sex Assigned at Date Recorded Female 07/24/2021 9:27 AM CDT documented as of this encounter Last Filed Vital Signs Vital Sign Reading Time Taken Comments Blood Pressure 138/72 05/22/2021 2:34 PM CDT Pulse 76 05/22/2021 2:34 PM CDT Temperature 36.7 ??C (98.1 ??F) 05/22/2021 2:34 PM CDT Respiratory Rate - - Oxygen Saturation - - Inhaled Oxygen Concentration - - Weight 99.3 kg (218 lb 14.7 oz) 05/22/2021 2:34 PM CDT Height - - Body Mass Index - - documented in this encounter Progress Notes Maria Eugenia Taylor, TseringNKaykay., A.P.N.P. - 05/22/2021 2:30 PM CDT SUBJECTIVE CHIEF COMPLAINT/REASON FOR VISIT Shahnaz Phelps is a delightful 75 y.o. female who presents today for evaluation of one-week history of swelling of the left upper eyelid. She does not have any eye pain, discharge, visual changes. She thought she had a. I on the right lower lid couple weeks ago she did warm packs and it seemed to resolve. Otherwise she states she has been feeling fine. She is camping in the [facility]. Lives in [facility]. HISTORY OF PRESENT ILLNESS Current Outpatient Medications Medication Sig Dispense Refill ??? acetaminophen (TYLENOL) 500 mg tablet Every 6 Hours as needed ??? hydroCHLOROthiazide (HYDRODIURIL) 25 mg tablet 25 mg daily. ??? losartan (COZAAR) 50 mg tablet ??? potassium chloride (KLOR-CON SPRINKLE) 10 mEq ER sprinkle capsule Take 10 mEq by mouth 2 (two) times a day. ??? sulfacetamide (BLEPH-10) 10 % ophthalmic solution Administer 1 drop into both eyes 4 (four) times a day. To use for 7 days 5 mL 0 No current facility-administered medications for this visit. There is no problem list on file for this patient. Past Medical History: Diagnosis Date ??? Cancer Breast Personal History [id number] ??? Hypertension NOS ??? Malignant Primary Neoplasm (Unknown Site) Unspecified ??? Skin Cancer (Primary) NOS ??? Stone Kidney Past Surgical History: Procedure Laterality Date ??? APPENDECTOMY ??? ARTERY SURGERY 0 ??? COLON SURGERY ??? HERNIA REPAIR ??? JOINT REPLACEMENT ??? OTHER SURGICAL HISTORY ??? TONSILLECTOMY [id number] Family History Problem Relation Age of Onset ??? Breast cancer Paternal Grandmother ??? Colon cancer Mother ??? Endometrial cancer Mother ??? Colon cancer Father ??? Colon cancer Brother OBJECTIVE Vital Signs: BP 138/72 (BP Location: Right arm, Patient Position: Sitting, Cuff Size: Large) Pulse76 Temp 36.7 ??C (Temporal) Wt 99.3 kg Snellen eye exam without correction right eye 20/25 left eye 20/20 both eyes 20/20 PHYSICAL EXAMINATION General: Alert female appears in no acute distress. Skin warm and dry. HEENT: Head normocephalic. Respirations nonlabored. Bilateral TMs pearly-yepez canals clear. Nares patent. Oropharynx pink moist. Neck supple no adenopathy. EOMs intact. Sclerae white to both eyes. To the right lower lid just in side the lid margin the skin is erythematous and appears she has a small 1mm slightly raised papule. She said 2 weeks ago it was larger and it seem to come to I had with somedischarge but it is bothering her. To the left upper lid she has a slightly raised tender lump just above the lid margin. I did flip the lid and there was no underlying foreign body. ASSESSMENT / PLAN 1. Hordeolum Externum Left Upper Eyelid I did review Ask Duron Expert and the initial recommendation is for warm compresses for 5 minutes 2 to 3 times a day for her a few days. She was willing to do that. She did have that white area at to the right lower lid that was mildly erythematous and I reviewed using an oral antibiotic as recommended by Ask Duron Expert if there was concern for any cellulitis. She is allergic to penicillin and if I used oral Bactrim it will could potentially interfere with her hy drochlorothiazide losartan and also her potassium supplementation. Elected to use sulfacetamide 10% ophthalmic drops; 1 drop both eyes 4 times a day for the next 7 days. Demonstrated appropriate administration. She was encouraged to call if she has any further questions or concerns Answers for HPI/ROS submitted by the patient on 05/22/2021 No general issues: Yes No eye issues: Yes No ENT issues: Yes No heart issues: Yes No respiratory issues: Yes No GI issues: Yes No muscle/bone issues: Yes No skin issues: Yes No neurologic issues: Yes No mental health issues: Yes No blood/lymph issues: Yes No urinary/reproductive issues: Yes . documented in this encounter Plan of Treatment Not on filedocumented as of this encounter Visit Diagnoses Diagnosis Hordeolum Externum Left Upper Eyelid - P rimary documented in this encounter Care Teams Educator Senior Clinical Relationship Specialty Start Date End Date Elsewhere, Pcp PCP - General Family Medicine 05/22/21 documented as of this encounter
--- OUTSIDE RECORDS SUMMARY | 2022-08-18 09:41 | XMS_ITS | Encounter Summary ---
:1945 Author Organization [facility] Address [address] [place] [address] Care Team Providers Name Role Phone Elsewhere, Pcp Primary Care Provider Unavailable Reason for Visit Appointment Request (Routine) - Closed Specialty Diagnoses / Procedures Referred By Contact Refer red To Contact Radiation Oncology Diagnoses Malignant Neoplasm Of Breast Female Right (HCC) Eyal Shah M.D. [address] [place] [address] Referral ID Status Reason Start Date Expiration Date Visits Requ ested Visits Authorized [id number] Closed 06/23/2021 06/23/2022 1 1 Encounter Details Date Type Department Care Team Description 07/06/2021 Hospital Encounter Department of Rose Marie Ledbetter Neoplasm Radiation Oncology Jonathon Camacho Of Breast Lower in [place], [facility] [address] [place], [place] Female Right (HCC) [address] [facility] [address] (Primary Dx) [place], [place] [phone] [address] (Work) [phone] Social History Tobacco Use Types Packs/Day Years [...] or relatives? How often do you attend faith or Patient refused 2020 religion services? Do you belong to any clubs or Patient refused 05/22/2021 organizations such as faith groups, unions, fraAesica Pharmaceuticals or athletic groups, or school groups? How [...] Pulse 79 07/06/2021 10:52 AM CDT Temperature 36.8 ??C (98.2 ??F) 07/06/2021 10:52 AM CDT Respiratory Rate - - Oxygen Saturation - - Inhaled Oxygen Concentration - - Weight 90.6 kg (199 lb 11.8 oz) 07/06/2021 10:52 AM CDT Height 170 cm (5' 6.93) 07/06/2021 10:52 AM CDT Body Mass Index 31.35 07/06/2021 10:52 AM CDT documented in this [...] 7 days documented as of this encounter Consult Notes Lashay Oropeza P.A.-C., M.S. - 07/06/2021 11:00 AM CDT SUBJECTIVE REQUESTING PROVIDER Eyal Shah M.D. REASON FOR CONSULT 1. 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 HISTORY OF PRESENT ILLNESS Mrs. 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 Her oncologic history is as follows: 1. [...] months for her carcinoid and breast carcinoma. INTERVAL HISTORY The patient was seen and examined today with Dr. Ledbetter. The patient reports doing well overall. She reports recovering well overall following chemotherapy and surgery. She did develop styes starting in May that are still persistent. She is taking doxycycline as prescribed. She has noticed some improvement in the size of the stye, especially on the left. She denies pain or vision changes. She reports healing well following surgery. She reports good arm range of motion. She denies lymphedema. She denies shortness of breath or cough. She does report left knee pain that is worse with walking and at night. She has already been evaluated by Orthopedics and they are planning for likely surgery later this year. She received a cortisone injection and has to wait at least 3 months. The patient denies a history of prior radiation therapy, connective tissue disorders, or inflammatory bowel disease. Her ECOG performance status is 0. REVIEW OF SYSTEMS Review of systems was negative except as documented above. PATIENT REPORTED SYMPTOM SCREEN PAIN (Scale: 0 = no pain; 10 = worst pain you can imagine): 0 PAST MEDICAL HISTORY 1. Hypertension 2. 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 Skin cancer, basal cell and squamous cell 5. Invasive ductal carcinoma of the right breast PAST SURGICAL HISTORY 1. Tonsillectomy 2. Cataract extraction, bilateral 3. Bowel resection, 2013 4. Breast biopsy, left, benign 5. Total knee replacement, right, 2019 6. Vein stripping 7. Appendectomy 8. Hernia repair 9. Excision of skin cancers 10. Right breast lumpectomy and right axillary sentinel lymph node biopsy, 2020 FAMILY HISTORY Family History Problem Relation Age of Onset ??? Breast cancer Paternal Grandmother ??? Colon cancer Mother ??? Endometrial cancer Mother ??? Colon cancer Father ??? Colon cancer Brother SOCIAL HISTORY She lives in [place], [place]. She is to her , Manas ???Rafita?? . She has one daughter, Roxane, age 28. 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 She is a former smoker of less than 1/2 pack per day. She quit approximately 25 years ago. She drinks alcohol up to once per week. OBJECTIVE BP 135/62 (BP Location: Left arm, Patient Position: Sitting, Cuff Size: Small) Pulse 79 Temp 36.8 ??C (Temporal) Ht 170 cm Wt 90.6 kg BMI 31.35 kg/m?? PHYSICAL EXAM GENERAL: Alert and oriented in no apparent distress. ASSESSMENT / PLAN #1 Stage IB (cT1c, cN0, cM0, G3, ER-, NJ-, HER2-) invasive ductal carcinoma of the right breast s/p neoadjuvant chemotherapy and right breast lumpectomy with final pathologic staging ypT0 pN0(sn) I had a discussion with the patient and her spouse regarding her breast cancer diagnosis including information regarding her staging, grade, and hormone receptors. We reviewed her oncologic history as detailed above. We discussed the risks, benefits, and alternatives of radiotherapy in this setting. We discussed radiation treatment to the whole right breast in 15 fractions +/- a boost to the lumpectomy cavity in an additional 4 fractions. I discussed the logistics as well as the acute and chronic side effects of radiotherapy. The acute side effects are common and include fatigue, radiation dermatitis, breast erythema, swelling, and discomfort. Long-term side effects include skin changes and texture changes of the breast, possible breast asymmetry, pulmonary scarring (typically of no clinical significance), radiation pneumonitis, increased risk of rib fracture with significant trauma, lymphedema, and a very small risk of secondary malignancy. The patient was provided with a written summary of recommendations. The patient did receive two doses of the COVID-19 vaccine in January 2021. She is scheduled for physical therapy and occupational therapy appointments on July 10, 2021. [place]. She is scheduled for CT simulation here today. We will plan to initiate treatment after she returns from her camping trip, on July 29, 2021. The patient was provided with our contact information. She was asked to contact us sooner with questions or concerns. She verbally expressed her understanding of the plan. EDUCATION Ready to learn, no apparent learning barriers were identified; learning preferences include listening. Explained diagnosis and treatment plan; patient expressed understanding of the content. CONSENT Discussed the risks, benefits, alternatives, and the necessity of other members of the healthcare team participating in the procedure. All questions answered and consent given. PRIMARY PROVIDER Dr. Bonita Muniz personally spent 60 minutes in care of the patient today. Time includes both non face to face and face to face patient care. Signed by: Lashay Oropeza P.A.-C., M.S. 07/06/2021 1:43 PM CDT [facility] [address] [place] [address] Associated attestation - Rose Marie Ledbetter M.D. - 07/06/2021 1:56 PM CDT RADIATION ONCOLOGY CONSULT I saw and evaluated the patient and participated in the pineda portions of the service. I reviewed the documentation of Ms. Lashay Oropeza PA-C, and agree with the findings and plan. Please see Ms. Oropeza's detailed note for the patient's initial presentation and work-up. Briefly, Mrs. Phelps is a very pleasant 75 year old female with a cT1c N0 M0 resected triple negative right breast cancer who received neoadjuvant chemotherapy and had an excellent response (pT0 N0 (sn)). I have reviewed her imaging, operative and pathology reports. On exam, she appears well. She has no cervical/supra/infraclavicular or axillary adenopathy. Heart- Regular rate and rhythm. Lungs- No dullness to percussion and clear to auscultation. Breasts- her breasts are symmetric. She has no worrisome lumps or masses in either breast. She has a well healed medial incision in her right breast with some mild healing bruising. We discussed the findings above and below in this note with the patient and her . We discussed her treatment alternatives. We discussed the rationale, risks, side effects and goals of radiation therapy. We discussed the rationale, risks, side effects and adjuvant goals of radiation therapy. We discussed the acute as well as intermediate teacher risks, including, but not limited to fatigue, skin erythema/desquamation, sore throat, fibrosis of the breast/chest wall, lymphedema, small risks of bone fracture, radiation pneumonitis, cardiac disease, brachial plexopathy and secondary malignancies. They understood and their questions were answered. She wished to proceed with treatment. We tentatively plan ondelivering 5005 cGy in 19 fractions starting July 29, 2021 (after her camping trip). My thanks to Eulogio Mckenna, and Bonita for the opportunity to participate in this patient's care. EDUCATION Ready to learn, no apparent learning barriers were identified; learning preferences include listening. Explained diagnosis and treatment plan; patient expressed understanding of the content. CONSENT Discussed the risks, benefits, alternatives, and the necessity of other members of the healthcare team participating in the procedure. All questions answered and consent given. DIAGNOSIS #1 Stage IB (cT1c, cN0, cM0, G3, ER-, NJ-, HER2-) invasive ductal carcinoma of the right breast s/p neoadjuvant chemotherapy and right breast lumpectomy with final pathologic staging ypT0 pN0(sn) Signed by: Rose Marie Ledbetter M.D. 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
--- OUTSIDE RECORDS SUMMARY | 2022-08-18 09:41 | XMS_ITS | Encounter Summary ---
:1945 Author Organization [facility] Address [address] [place] [id number] Care Team Providers Name Role Phone Elsewhere, Pcp Primary Care Provider Unavailable Reason for Referral Specialty Diagnoses / Procedures Referred By Contact Refer red To Contact Berna Ortiz M.D. [facility] Region [address] [place] [phone] Referral ID Status Reason Start Date Expiration Date Visits Requ ested Visits Authorized Encounter Details Date Type Department Care Team Description 07/17/2021 Orders Only [facility] PCP [facility] MAYRAT Naga Luna D.O. [address] [place] [phone] (Wo rk) Social History Tobacco Use Types [...] you attend mormonism or Patient refused 2020 cheondoism services? Do you belong to any clubs [...] of this encounter Plan of Treatment Scheduled Referrals Name Type Priority Associated Order Schedule Diagnoses Covid immunization Outpatient Referral Routine Ex pected: office visit Booster 021 (Approximate), Expires: 07/17/2022 documented as of this encounter Visit Diagnoses Not on filedocumented in this encounter Care Teams Supervisor [employer] Former Relationship Specialty Start Date End Date Elsewhere, Pcp PCP - General Family Medicine 05/22/21 documented as of this encounter
--- OUTSIDE RECORDS SUMMARY | 2022-08-18 09:41 | XMS_ITS | Encounter Summary ---
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 [facility] Procedures Prior Auth Rad Tx [place] RADTN [place] DEL >=1 MEV COMPLEX [address] [place] [address] Referral ID Status Reason Start Date Expiration Date Visits Requ ested Visits Authorized [id number] Closed 07/14/2021 07/03/2022 19 19 Encounter Details Date Type Department Care Team Description 08/04/2021 Hospital Encounter Department of Radiation Luis Ledbetter I., [place]cology [place] [address] [facility] [address] [place] [phone] Social History Tobacco Use Types Packs/Day Years [...] or relatives? How often do you attend orthodox or Patient refused 2020 scientologist services? Do you belong to any clubs or Patient refused 05/22/2021 organizations such as orthodox groups, unions, fraTrupanion or athletic groups, or school groups? How [...] 1 capsule by 0 mouth daily. omega 6-zdt-wfn-fish oil 1,000 Take by mouth. 0 mg (120 mg-180 mg) capsule documented as of this encounter Plan of Treatment Not on filedocumented as of this encounter Visit Diagnoses Not on filedocumented in this encounter Care Teams Center Customer Service Associate Relationship Specialty Start Date End Date Elsewhere, Pcp PCP - General Family Medicine 05/22/21 documented as of this encounter
--- OUTSIDE RECORDS SUMMARY | 2022-08-18 09:41 | XMS_ITS | Encounter Summary ---
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 [facility] Procedures Prior Auth Rad Tx [place] RADTN [place] DEL >=1 MEV COMPLEX [address] [place] [address] Referral ID Status Reason Start Date Expiration Date Visits Requ ested Visits Authorized [id number] Closed 07/14/2021 07/03/2022 19 19 Encounter Details Date Type Department Care Team Description 08/05/2021 Hospital Encounter Department of Radiation Luis Ledbetter I., Oncology [place] [address] [facility] [address] [place] [phone] Social History Tobacco Use Types Packs/Day Years [...] or relatives? How often do you attend amish or Patient refused 2020 yarsanism services? Do you belong to any clubs or Patient refused 05/22/2021 organizations such as amish groups, unions, fraAzima or athletic groups, or school groups? How [...] 1 capsule by 0 mouth daily. omega 2-elz-paa-fish oil 1,000 Take by mouth. 0 mg (120 mg-180 mg) capsule documented as of this encounter Plan of Treatment Not on filedocumented as of this encounter Visit Diagnoses Not on filedocumented in this encounter Care Teams Bottom Liquor Attendant Relationship Specialty Start Date End Date Elsewhere, Pcp PCP - General Family Medicine 05/22/21 documented as of this encounter
--- OUTSIDE RECORDS SUMMARY | 2022-08-18 09:41 | XMS_ITS ---
:1945 Author Care Team Providers Name Role Phone DEUCE BANKS MD Primary Care Provider [phone] Allergies Code Code System Name Reaction Severity Status Onset Penicillin ? ? Active 2 Medications Name Status Start Date Stop Date ? ? aspirin low 81mg chw Completed ? 10/07/2020 CHEW AND SWALLOW 1 TABLET BY MOUTH TWIC E DAILY MEDICATION FOR DEEP VEIN CLOT PREVENTION POST SURGERY. celecoxib 200 mg capsule Active ? Not lilly ilable cephalexin 500 mg capsule Active ? Not av ailable TAKE 4 CAPSULES BY MOUTH A ONE TIME DOSE 1 HOUR PRIOR TO DEN CR EXAM ciclopirox 8 % topical solution Active ? Not available ciprofloxacin 500 mg tablet Completed ? 11/2019 TAKE 1 TABLET BY MOUTH EVERY 12 HOURS FOR 3 DAYS doxycycline hyclate 50 mg capsule Completed ? 07/06/2022 doxycycline monohydrate 100 mg capsule Completed ? 07/06/2022 erythromycin 5 mg/gram (0.5 %) eye ointment Active ? Not available Fluzone High-Dose Quad 2020-21 (PF) 240 mcg/0.7 mL IM Active ? Not available syringe hydrochlorothiazide 25 mg tablet Active ? Not available TAKE 1 TABLET BY MOUTH ONCE DAILY hydrocodone 5 mg-acetaminophen 325 mg tablet Completed ? 07/06/2022 lorazepam 0.5 mg tablet Active ? Not avai lable losartan 100 mg tablet Active ? Not avail able losartan 50 mg tablet Active ? Not availa ble TAKE 1 TABLET BY MOUTH ONCE DAILY mometasone 0.1 % topical cream Active ? N ot available Multi Vitamin Active ? Not available neomycin 3.5 mg/g-polymyxin B 10,000 unit/g-dexameth 0.1 Active ? Not available % eye oint oxycodone 5 mg tablet Completed ? 07/06/2022 TAKE 1 TABLET BY MOUTH EVERY 4-8 HOURS NEEDED Pain Reliever (acetaminophen) 500 mg tablet Completed ? 10/07/2020 TAKE 1 TO 2 TABLETS BY MOUTH EVERY 6 HO URS NEEDED . DO NOT EXCEED 4000 MG OF ACETAMINOPHEN PER 24 HOURS Paxlovid 300 mg (150 mg x 2)-100 mg tablets in a dose pack (EUA) Active ? Not available TAKE 3 TABLETS TOGETHER (TWO 150 MG JOANIE MATRELVIR TABLETS AND ONE 100 MG RITONAVIR TABLET) BY MOUTH TWICE DAILY FOR 5 DAYS. potassium chloride ER 10 mEq capsule,extended release Active ? Not available prochlorperazine maleate 10 mg tablet Active ? Not available Stool Softener-Stimulant Laxative 8.6 mg-50 mg tablet Completed ? 10/07/2020 TAKE 1 TABLET BY MOUTH TWICE DAILY HOLD MEDICATION IF EXPERIENCING LOOSE STOOLS sulfacetamide sodium 10 % eye drops Active ? Not available vancomycin 125 mg capsule Completed ? 2021 Problems Name Status Onset Date Source ? Microscopic Hematuria Active 03/16/2012 History Kidney Stone Active 06/27/2012 History Procedures Date Name Performed by ? 08/07/2020 XR, Kidney + Ureter + Bladder Informatio n not available 08/18/2021 XR, Kidney + Ureter + Bladder Informatio n not available 09/22/2021 US, [facility] [place] [address] [place] [address] (Work Place) 12/23/2021 CT, Abdomen + Pelvis, W/o Contrast Infor emmanuel not available Results Lab Results Date Name Specimen Result Interpretation Description Value Range Status Address ? 07/06/2022 Urinalysis, Urine ? Color-Status Yellow ? ? [facility]: [place]stick [address], [place] ? ? Urine ? Clarity-Stat Clear ? ? [facility]: us [address], [place] ? ? Urine ? Glucose-Stat Negative ? ? [facility]: [place] [address], [place] ? ? Urine ? Bilirubin-St Negative ? ? [facility]: atus [address], [place] ? ? Urine ? Ketones-Stat Negative ? ? [facility]: [place] [address], [place] ? ? Urine ? Sp 1.015 ? ? [facility]: [place] [address], [place] ? ? Urine ? pH-Status 7.0 ? ? [facility]: [address], [place] ? ? Urine ? Urobilinogen 0.2 ? ? [facility]: -Status [address], [place] ? ? Urine ? Nitrates-Sta negative ? ? [facility]: tus [address], [place] ? ? Urine ? Blood-Status Trace ? ? [facility]: [address], [place] ? ? Urine ? Leuko-Status Trace ? ? [facility] [place]: [address], [place] ? ? Urine ? Specimen Voided ? ? [facility]: Type [address], [place] ? ? Urine ? Performed by Berna ? ? [facility]: Serafin PÉREZ [address], [place] ? ? Urine ? Total Urine 20cc ? ? [facility]: Volume [address], [place] 07/06/2022 Urinalysis, ? No ? ? ? Dipstick observation recorded. 09/22/2021 Urinalysis, ? pH-Status 7.0 ? ? Dipstick 09/22/2021 Urinalysis, ? No ? ? ? Dipstick observation recorded. 10/07/2020 Urinalysis, ? No ? ? ? Dipstick observation recorded. 04/18/2019 Kidney Stone ? Color brown ? Final Laborp Analysis [facility] [place] [facility] ? ? ? Size comment mm ? Final Laborp [facility] [place] [facility] ? ? ? Weight 9.8 mg ? Final Laborp [facility]: [place] [facility] ? ? ? Composition comment ? Final Lab orp [facility] [place] [facility] ? ? ? Ca Oxalate 10 % ? Final Labor p Dihydrate [facility] [place] [facility] ? ? ? Ca Oxalate 82 % ? Final Labor p Monohydr. [facility]: [place] [facility] ? ? ? Calcium 08 % ? Final Laborp Phosphate [facility]: [place] [facility] ? ? ? Magnesium inside sales agent ? Cancelled Lab orp Jared Phos [facility]: [place] [facility] ? ? ? Uric Acid inside sales agent ? Cancelled Lab orp [facility]: [place] [facility] ? ? ? Uric Acid inside sales agent ? Cancelled Lab orp Dihydrate [facility]: [place] [facility] ? ? ? Ammonium inside sales agent ? Cancelled Labo rp Acid Urate [facility]: [place] [facility] ? ? ? Sodium Acid inside sales agent ? Cancelled L aborp Urate [facility]: [place] [facility] ? ? ? Ca Hydrogen inside sales agent ? Cancelled L aborp Phos. [facility]: [place] [facility] ? ? ? Cystine inside sales agent ? Cancelled Labor p [facility]: [place] [facility] ? ? ? Cholesterol inside sales agent ? Cancelled L aborp Global [facility]: [place] [facility] ? ? ? Calcium inside sales agent ? Cancelled Labor p Bilirubinate Glob al Backfill: [place] [facility] ? ? ? Calcium inside sales agent ? Cancelled Labor p Carbonate [facility]: [place] [facility] ? ? ? Triamterene inside sales agent ? Cancelled L aborp Global Back[facility]: [place] [facility] ? ? ? Newberyite inside sales agent ? Cancelled [place]p Global Back[facility]: [place] [facility] ? ? ? Dried Blood inside sales agent ? Cancelled L aborp [facility]: [place] [facility] ? ? ? Cellular inside sales agent ? Cancelled Labo rp Material [facility]: [place] [facility] ? ? ? Nidus no nidus ? Final Laborp visualized [facility]: [place] [facility] ? ? ? Shell inside sales agent ? Cancelled Laborp [facility]: [place] [facility] ? ? ? Surface inside sales agent ? Cancelled Labor p Crystals [facility]: [place] [facility] ? ? ? Comment ? ? Cancelled Labor p [facility]: [place] [facility] ? ? ? Please Note: comment ? Final [place] [facility]: [place] [facility] ? ? ? Comment: comment ? Final Laborp [facility]: [place] [facility] ? ? ? Disclaimer: comment ? Final Lab orp [facility]: [place] [facility] ? ? ? Pdf . ? Final Laborp [facility]: [place] [facility] ? Urinalysis, ? Ketones-Stat 5 ? ? Dipstick us ? ? ? pH-Status 7.5 ? Nitrates-Sta negative ? ? tus ? ? ? Blood-Status Negative ? Leuko-Status Trace ? ? Past Encounters 07/06/2022 Kidney Stone Jared Jackson MD: [address], [place] [address], Ph. 09/22/2021 Kidney Stone Jared Jackson MD: [address] [place] [address], Ph. Social History Tobacco Smoking Status Former Smoker Vaccine List Vaccine Type pneumococcal polysaccharide PPV23 02/27/2015 Plan of Care Reminders Provider Appointments None recorded. ? ? Lab None recorded. ? ? Referral None recorded. ? ? Procedures None recorded. ? ? Surgeries None recorded. ? ? Imaging None recorded. ? ? Vitals 07/06/2022 02:50PM ESTABLISHED 10 Height Weight BMI 5 ft 6.5 in 213 lbs 33.9 kg/m2 09/22/2021 02:00PM ESTABLISHED 10 Height Weight BMI 5 ft 6.5 in 213 lbs 33.9 kg/m2 10/07/2020 10:40AM ESTABLISHED 10 Height Weight BMI 5 ft 6.5 in 213 lbs 33.9 kg/m2
--- OUTSIDE RECORDS SUMMARY | 2022-08-18 09:41 | XMS_ITS | Encounter Summary ---
:1945 Author Care Team Providers Name Role Phone Heidy Mesa MD Primary Care Provider [phone] Reason for Visit Kidney stone Assessment and Plan 1. Kidney stone continue prevention and fu in one year continue HCTZ 25 mg Q day ? urinalysis, dipstick Discussion Note: None recorded.Patient educational handouts: No information available. Plan of Care Reminders Provider Appointments Established 10 on or around Jared john MD 03/06/2023 Lab Urinalysis, Dipstick 07/06/2022 [facility] Referral None recorded. ? ? Procedures None recorded. ? ? Surgeries None recorded. ? ? Imaging None recorded. ? ? Medications Name Start Date ? ? celecoxib 200 mg capsule ? TAKE 1 CAPSULE BY MOUTH TWICE DAILY cephalexin 500 mg capsule ? TAKE 4 CAPSULES BY MOUTH A ONE TIME DOSE [address] [place] IOR TO DENTAL EXAM ciclopirox 8 % topical solution ? erythromycin 5 mg/gram (0.5 %) eye ointment ? Fluzone High-Dose Quad 2020-21 (PF) 240 mcg/0.7 mL IM syringe ? hydrochlorothiazide 25 mg tablet ? TAKE 1 TABLET BY MOUTH ONCE DAILY lorazepam 0.5 mg tablet ? losartan 100 mg tablet ? losartan 50 mg tablet ? TAKE 1 TABLET BY MOUTH ONCE DAILY mometasone 0.1 % topical cream ? Multi Vitamin ? neomycin 3.5 mg/g-polymyxin B 10,000 unit/g-dexameth 0 .1 % eye oint ? Paxlovid 300 mg (150 mg x 2)-100 mg tablets in a dose pack (EUA) ? TAKE 3 TABLETS TOGETHER (TWO 150 MG JOANIE MATRELVIR TABLETS AND ONE 100 MG RITONAVIR TABLET) BY MOUTH TWICE DAILY FOR 5 DAYS. potassium chloride ER 10 mEq capsule,extended release ? TAKE 1 CAPSULE BY MOUTH DAILY IN ADDITI ON TO OTHER POTASSIUM. TOTAL OF 20 MEQ OR 2 TABLET OF POTASSIUM FOR THE NEXT 7 DAYS prochlorperazine maleate 10 mg tablet ? sulfacetamide sodium 10 % eye drops ? Medications Administered None recorded. Vitals Height Weight BMI 5 ft 6.5 in 213 lbs 33.9 kg/m2 Results Lab Results Date Name Specimen Result Interpretation Description Value Range Status Address ? 07/06/2022 Urinalysis, Urine ? Color-Status Yellow ? ? [facility]: [address], [place] ? ? Urine ? Clarity-Status Clear ? ? [facility]: [address], [place] ? ? Urine ? Glucose-Status Negative ? ? [facility]: [address], [place] ? ? Urine ? Bilirubin-Stat Negative ? ? [facility]: [address], [place] ? ? Urine ? Ketones-Status Negative ? ? [facility]: [address], [place] ? ? Urine ? Sp 1.015 ? ? [facility]: [address], [place] ? ? Urine ? pH-Status 7.0 ? ? [facility]: [address], [place] ? ? Urine ? Urobilinogen-S 0.2 ? ? [facility]: [address], [place] ? ? Urine ? Nitrates-Statu negative ? ? [facility]: [address], [place] ? ? Urine ? Blood-Status Trace ? ? [facility]: [address], [place] ? ? Urine ? Leuko-Status Trace ? ? [facility]: [address], [place] ? ? Urine ? Specimen Type Voided ? ? [facility]: [address], [place] ? ? Urine ? Performed by Berna ? ? [facility]: [address], [place] ? ? Urine ? Total Urine 20cc ? ? [facility] [address], [place] Allergies Code Code System Name Reaction Severity Onset Penicillin ? ? 03/16/2012 Problems Name Status Onset Date Source ? Microscopic Hematuria Active 03/16/2012 History Kidney Stone Active 06/27/2012 History Procedures None recorded. Vaccine List Vaccine Type pneumococcal polysaccharide PPV23 02/27/2015 Social History Tobacco Smoking Status Former Smoker What is your level of alcohol consumption? Occasional Marital status Do you or have you ever used smokeless tobacco? Never used s mokeless tobacco How much tobacco do you chew? none What was the date of your most recent tobacco 09/22/2021 screening? Do you or have you ever used e-cigarettes or Never used elec tronic cigarettes vape? What is your level of caffeine consumption? Occasional When did you quit smoking? 16+yearssincelastcigarette Recreational Drug Use N Functional Status Unknown. Past Encounters 07/06/2022 Kidney Stone Jared Jackson MD: [address] [facility] [place] [address], Ph. History of Present Illness Note: <div>76 yo female who presents for evaluation of nephrolithiasis. </div><div>
</div><div>s/p right ESWL on 03/28/19 for 8 mm upper pole stone and a number of stones in the low pole.</div><div>CT 10/2020 showed small stones 5 and 6 mm in her kidneys</div><div>KUB 09/27 was without evidence of nephrolithiasis. </div><div>Renal US 12/15/2021 showed evidence of bilateral renal calculi with at least 5 stones on the left measuring upto 9 mm and 2 stones on the right measuring up to 7 mm. No hydro noted. </div><div>
</div><div>She takes HCTZ 25 mg Q day for stone prevention. </div><div>
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
</div><div>CT 07/06/22 showed a couple of small under 5 mm stones in the right kidneys; no left kidney stones ( same stones as in 2019 ).</div><div>
</div> Review of Systems ? Comprehensive General Adult ROS Reported By: Patient Constitutional: Constitutional: no fever, no chills Eyes: Eyes: no dry eyes, no vision change, no irritation Endocrine: Endocrine: no fatigue, no in creased thirst Cardiovascular: Cardiovascular: no chest mariola n, no palpitations Integumentary: Skin: no rashes, no change i n skin color Respiratory: Respiratory: no wheezing, no cough, no shortness of breath Gastrointestinal: Gastrointestinal: no abdomin al pain, no nausea, no vomiting, no constipation, no GERD Musculoskeletal: Musculoskeletal: no neck mariola n, no back pain Neurologic: Neurologic: no tremor, no di zziness, no numbness, no headaches Genitourinary: Genitourinary: no incontinen ce, no difficulty urinating ENMT: Ears: no ear pain. Mouth/Thr oat: no sore throat Allergic/Immunologic: Allergy/Immunologic: no itch ing, no hives Hematologic/Lymphatic: Hematologic/Lymphatic no swo llen glands, no excessive bleeding Psychiatric: Psych: no hallucinations, (n ormal) sleep disturbances: mismatch of sleep / wake kristi edule with lifestyle needs Physical Exam None recorded.
--- OUTSIDE RECORDS SUMMARY | 2022-08-18 09:41 | XMS_ITS | Encounter Summary ---
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 [facility] Procedures Management Visit [address] [place] [address] Referral ID Status Reason Start Date Expiration Date Visits Requ ested Visits Authorized [id number] Closed 07/03/2021 07/03/2022 10 10 Encounter Details Date Type Department Care Team Description 07/30/2021 Hospital Encounter Department of [place] Neoplasm Radiation Oncology Jonathon Miranda Of Breast Lower in [place], [address] [place], [place] Female Right (HCC) [address] [facility] [address] [place], [place] [phone] (Work) [phone] Social History Tobacco Use Types Packs/Day Years [...] you attend gnosticism or Patient refused 2020 mormon services? Do you belong to any clubs [...] place to sleep or slept in a halfway (including now)? Education Answer Date Recorded What [...] Pressure - - Pulse - - Temperature 36.6 ??C (97.9 ??F) 07/30/2021 11:18 AM CDT Respiratory Rate - - Oxygen Saturation - - Inhaled Oxygen Concentration - - Weight 90 kg (198 lb 6.6 oz) 07/30/2021 11:18 AM CDT Height - - Body Mass Index 31.14 07/06/2021 10:52 AM CDT documented in this [...] 1 capsule by 0 mouth daily. omega 8-tan-tfi-fish oil Take by mouth. 0 1,000 mg [...] 7 days documented as of this encounter Progress Notes New Alonso M.D. - 07/30/2021 11:30 AM CDT SUBJECTIVE REASON FOR VISIT Evaluation for side effects while receiving radiation treatment for 1. 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 ([id number]) HISTORY OF PRESENT ILLNESS Mrs. Shahnaz Phelps is a 75 y.o. 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 She is now undergoing radiotherapy to the right breast. Treatment Course: 1x RT Breast Plan ID Fractions Dose / Fraction (cGy) Dose Treated (cGy) Dose Planned (cGy) First Treatment Last Treatment Elapsed Days F1_RT Breast [phone] 07/29/2021 07/29/2021 0 Course Summary 07/29/2021 07/29/2021 0 The patient was seen and examined today with Dr. Alonso. The patient reports she is tolerating radiation therapy well. She reports she has noticed an increase in dry skin to the treatment field. She is currently applying CeraVe lotion two times a day. She denies soar throat, skin erythema or lymphedema at this time. She states she is currently working with PT on arm range of motion. PATIENT REPORTED SYMPTOM SCREEN FATIGUE (Scale: 0 = no fatigue; 10 = worst fatigue you can imagine): 0 PAIN (Scale: 0 = no pain; 10 = worst pain you can imagine): 0 OVERALL QUALITY OF LIFE (Scale: 0 = as bad as can be; 10 = as good as can be): 10 OBJECTIVE Temp 36.6 ??C (Temporal) Wt 90 kg BMI 31.14 kg/m?? PHYSICAL EXAM General: Alert and oriented in no apparent distress. ASSESSMENT / PLAN #1 Stage IB (cT1c, cN0, cM0, G3, ER-, IA-, HER2-) invasive ductal carcinoma of the right breast s/p neoadjuvant chemotherapy and right breast lumpectomy with final pathologic staging ypT0 pN0(sn) #2 Radiotherapy to the right breast initiated on July 29, 2021; anticipated completion on August 24, 2021 The patient is tolerating radiation treatment well overall. She was instructed to use lotion 3-4 times daily to the treatment field to help with the dryness. She was instructed to use an aluminum free deodorant on the right side. She will contact us with any questions or concerns. We will continue with radiation treatment as planned. Signed by: Hansa Rosenbaum R.N. 07/30/2021 11:35 AM CDT I saw and evaluated the patient and participated in the pineda portions of the service. I reviewed the documentation of Hansa Rosenbaum R.N. and agree with the findings and plan. The patient appears well on exam. She will continue with treatment as planned Signed by: New Alonso M.D. 07/30/2021 6:14 PM CDT [facility] [address] [place] [address] documented in this encounter Miscellaneous Notes Addendum Note - New Alonso M.D. - 07/30/2021 11:30 AM CDT Encounter addended by: New Alonso M.D. 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
--- OUTSIDE RECORDS SUMMARY | 2022-08-18 09:41 | XMS_ITS | Encounter Summary ---
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 [facility] [place] [facility] Procedures Initial Rad Onc Treatment Planning CT Simulation [address] [place], [place] [address] Referral ID Status Reason Start Date Expiration Date Visits Requ ested Visits Authorized [id number] Closed 07/03/2021 07/03/2022 1 1 Encounter Details Date Type Department Care Team Description 07/06/2021 Hospital Encounter Department of Rose Marie Ledbetter Neoplasm Radiation Oncology Jonathon Camacho Of Breast Lower in [address], [address] [place], [place] Female Right (HCC) [address] [facility] [address] [facility] [place] [phone] [address] (Work) [phone] Social History Tobacco Use Types Packs/Day Years [...] or relatives? How often do you attend jewish or Patient refused 2020 jew services? Do you belong to any clubs or Patient refused 05/22/2021 organizations such as jewish groups, unions, fraternal or athletic groups, or [...] place to sleep or slept in a group home (including now)? 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 Authorized by: Rose Marie Ledbetter M.D. Simulation was performed under physician supervision based on physician order in preparation for radiation therapy. Physician was immediately available to provide assistance and direction throughout the procedure. Written consent for treatment was completed or confirmed. The patient was appropriately identified and placed in the treatment position using the necessary immobilization to ensure a reproducible treatment position. Reference stout were placed to facilitate marking of isocenter. Area scanned: Chest Contrast used for the simulation procedure: None Patient position: Head first supine and arms up Custom immobilization: Vac-beck Motion management: None Bolus: No CT guidance: Following positioning of the patient, a series of slices was obtained to be utilized intreatment planning. CT images were transferred to the Eclipse treatment planning system, after a reference isocenter was determined and marked. Segmentation and treatment planning will take place priorto treatment delivery. Patient set up and imaging was appropriate and completed without incident. Bitumastic Applier use:No documented in this encounter Plan of Treatment Not on filedocumented as of this encounter Procedures Procedure Name Priority Date/Time Associated Comments Diagnosis INITIAL RAD ONC Routine 07/06/2021 1:24 PM Malignant Neoplasm Results for this TREATMENT PLANNING CDT Of Breast Lower proced ure are in CT SIMULATION Inner Quadrant the results Female Right (HCC) section. documented in this encounter Results Initial Rad Onc Treatment [...] Marie Ledbetter M.D. Authorized by: Rose Marie Ledbettre M.D. Rose Marie Ledbetter M.D. 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
--- OUTSIDE RECORDS SUMMARY | 2022-08-18 09:41 | XMS_ITS | Encounter Summary ---
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 [facility] Procedures Prior Auth Rad Tx CO RADTN TX DEL >=1 MEV COMPLEX [address] [place] [address] Referral ID Status Reason Start Date Expiration Date Visits Requ ested Visits Authorized [id number] Closed 07/14/2021 07/03/2022 19 19 Encounter Details Date Type Department Care Team Description 08/03/2021 Hospital Encounter Department of Radiation Luis Ledbetter I., [place] [address] [facility] [address] [place] [phone] Social History Tobacco Use Types Packs/Day Years [...] you attend amish or Patient refused 2020 druze services? Do you belong to any clubs or Patient refused 05/22/2021 organizations such as amish groups, unions, fraPersonera or athletic groups, or school groups? How [...] 25 mg tablet losartan (COZAAR) 50 mg tablet 0 05/01 multivitamin capsule Take 1 capsule by 0 mouth daily. omega 5-kjx-bxh-fish oil 1,000 Take by mouth. 0 mg (120 mg-180 mg) capsule documented as of this encounter Plan of Treatment Not on filedocumented as of this encounter Visit Diagnoses Not on filedocumented in this encounter Care Teams Metal Bonding Helper Relationship Specialty Start Date End Date Elsewhere, Pcp PCP - General Family Medicine 05/22/21 documented as of this encounter
--- OUTSIDE RECORDS SUMMARY | 2022-08-18 09:41 | XMS_ITS | Encounter Summary ---
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 [facility] Procedures Prior Auth Rad Tx CA RADTN TX DEL >=1 MEV COMPLEX [address] [place] [address] Referral ID Status Reason Start Date Expiration Date Visits Requ ested Visits Authorized [id number] Closed 07/14/2021 07/03/2022 19 19 Encounter Details Date Type Department Care Team Description 07/31/2021 Hospital Encounter Department of Radiation Luis Ledbetter I., [place] [address] [facility] [address] [place] [phone] Social History Tobacco Use Types Packs/Day Years [...] or relatives? How often do you attend sabianist or Patient refused 2020 congregation services? Do you belong to any clubs or Patient refused 05/22/2021 organizations such as sabianist groups, unions, fra360T or athletic groups, or school groups? How [...] place to sleep or slept in a care home (including now)? Education Answer Date Recorded [...] 1 capsule by 0 mouth daily. omega 3-nod-qtb-fish oil Take by mouth. 0 1,000 mg [...] on filedocumented in this encounter Care Teams News Library Director Relationship Specialty Start Date End Date Elsewhere, Pcp PCP - General Family Medicine 05/22/21 documented as of this encounter
--- OUTSIDE RECORDS SUMMARY | 2022-08-18 09:41 | XMS_ITS | Encounter Summary ---
:1945 Author Organization [facility] Address [address] [place] [phone] Care Team Providers Name Role Phone Elsewhere, Pcp Primary Care Provider Unavailable Reason for Referral Specialty Diagnoses / Procedures Referred By Contact Refer red To Contact Lashay Oropeza P.A.-C ., M.S. [facility] [address] [place] [phone] Referral ID Status Reason Start Date Expiration Date Visits Requ ested Visits Authorized Encounter Details Date Type Department Care Team Description 08/03/2021 Hospital Encounter Department of Kvng Ledbetter M.D. [address] [place] [phone] Malignant Neoplasm Radiation Oncology Caro Patel, RMariamNMariam [address] [place] [phone] Of Breast Lower in [facility] Female Right (HCC) [address] [place] [phone] Social History Tobacco Use Types Packs/Day Years [...] or relatives? How often do you attend methodist or Patient refused 2020 anabaptism services? Do you belong to any clubs or Patient refused 05/22/2021 organizations such as methodist groups, unions, fraternal or athletic groups, or [...] place to sleep or slept in a [place] health care facility (including now)? Education Answer Date Recorded What [...] Pressure - - Pulse - - Temperature - - Respiratory Rate - - Oxygen Saturation - - Inhaled Oxygen Concentration - - Weight 90.4 kg (199 lb 4.7 oz) 08/03/2021 9:00 AM CDT Height - - Body Mass Index 31.28 07/06/2021 10:52 AM CDT documented in this [...] 1 capsule by 0 mouth daily. omega 2-bqy-ziz-fish oil 1,000 Take by mouth. 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
--- OUTSIDE RECORDS SUMMARY | 2022-08-18 09:41 | XMS_ITS | Encounter Summary ---
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 [facility] Procedures Management Visit [address] [place] [address] Referral ID Status Reason Start Date Expiration Date Visits Requ ested Visits Authorized [id number] Closed 07/03/2021 07/03/2022 10 10 Encounter Details Date Type Department Care Team Description 08/04/2021 - Hospital Encounter Department of Rose Marie Ledbetter Neoplasm 08/05/2021 Radiation Oncology Jonathon Camacho Of [facility] in [place], [address] [place], [place] Female Right (HCC) [address] [facility] [address] [place], [place] [phone] (Work) [phone] Social History Tobacco Use Types Packs/Day Years [...] you attend samaritan or Patient refused 2020 alevism services? Do you belong to any clubs or Patient refused 05/22/2021 organizations such as samaritan groups, unions, fraternal or athletic groups, or [...] Pressure - - Pulse - - Temperature 36.7 ??C (98 ??F) 08/04/2021 1:46 PM CDT Respiratory Rate - - Oxygen Saturation - - Inhaled Oxygen Concentration - - Weight 90.1 kg (198 lb 10.2 oz) 08/04/2021 1:46 PM CDT Height - - Body Mass Index 31.18 07/06/2021 10:52 AM CDT documented in this [...] 1 capsule by 0 mouth daily. omega 0-fyg-aqu-fish oil 1,000 Take by mouth. 0 mg (120 mg-180 mg) capsule documented as of this encounter Progress Notes Rose Marie Ledbetter M.D. - 08/04/2021 2:00 PM CDT ATTESTATION FOR MANAGEMENT VISIT I saw and evaluated the patient and participated in the pineda portions of the service as noted below. I reviewed the documentation of Ms. Caro Patel RN and agree with the findings and plan. The patient appears well on exam. We will continue with radiation as planned and monitor weekly. Rose Marie Ledbetter M.D., 08/05/2021 SUBJECTIVE REASON FOR VISIT Evaluation for side effects while receiving radiation treatment for 1. 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 Ledbetter HISTORY OF PRESENT ILLNESS Mrs. Shahnaz Phelps is a 75 y.o. 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 She is now undergoing radiotherapy to the right breast. Treatment 08/04/2021 Plan ID [id number] Breast Prescription dose in cGy 4005 Prescribed total fractions for plan 15 Fractions treated to date 5 Dosage given to date 1335 The patient was seen and examined today with Dr. Ledbetter. The patient reports she is tolerating radiation therapy well. She is currently applying CeraVe lotion two times a day. She has noticed mild fatigue with treatment. She reports stiffness to her the bottom of her feet when bending them and at bedtime. This symptom developed at the end of her chemotherapy. PATIENT REPORTED SYMPTOM SCREEN FATIGUE (Scale: 0 = no fatigue; 10 = worst fatigue you can imagine): 2 PAIN (Scale: 0 = no pain; 10 = worst pain you can imagine): 0 OVERALL QUALITY OF LIFE (Scale: 0 = as bad as can be; 10 = as good as can be): 10 OBJECTIVE Temp 36.6 ??C (Temporal) Wt 90 kg BMI 31.14 kg/m?? PHYSICAL EXAM General: Alert and oriented in no apparent distress. Skin: no erythema to the treatment field area. ASSESSMENT / PLAN #1 Stage IB (cT1c, cN0, cM0, G3, ER-, CT-, HER2-) invasive ductal carcinoma of the right breast s/p neoadjuvant chemotherapy and right breast lumpectomy with final pathologic staging ypT0 pN0(sn) #2 Radiotherapy to the right breast initiated on July 29, 2021; anticipated completion on August 24, 2021 The patient is tolerating radiation treatment well overall. She will continue to monitor feet stiffness, she can trial warm foot soaks. If symptoms do not improve or worsen, she will contact Medical Oncology to be evaluated for possible neuropathy. She will contact us with any questions or concerns. We will continue with radiation treatment as planned. Signed by: Hansa Rosenbaum R.N. 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
--- OUTSIDE RECORDS SUMMARY | 2022-08-18 09:41 | XMS_ITS | Encounter Summary ---
:1945 Author Organization [facility] Address [address] [place] [address] Care Team Providers Name Role Phone Elsewhere, Pcp Primary Care Provider Unavailable Encounter Details Date Type Department Care Team Description 07/22/2021 Immunization Department of Internal Naga Luna D.O. Medicine and Geriatrics in [address] [address] [place] [address] [phone] Social History Tobacco Use Types Packs/Day Years [...] or relatives? How often do you attend synagogue or Patient refused 2020 catholic services? Do you belong to any clubs or Patient refused 05/22/2021 organizations such as synagogue groups, unions, fraternal or athletic groups, or [...] place to sleep or slept in a long-term (including now)? Education Answer Date Recorded What [...] on filedocumented in this encounter Care Teams [employer] Relationship Specialty Start Date End Date Elsewhere, Pcp PCP - General Family Medicine 05/22/21 documented as of this encounter
[2022-08-18 12:12] LABS: Chloride* 103 mmol/L (96-114); Sodium* 139 mmol/L (135-149)
[2022-08-18 12:15] LABS: Carbon Dioxide* 30 mmol/L (20-32); Creatinine* 0.8 mg/dL (0.5-1.5); Estimated Glomerular Filt Rate 76 ml/min
[2022-08-18 12:16] LABS: Blood Urea Nitrogen* 23 mg/dL (7-30); Calcium* 9.9 mg/dL (8.4-10.6); Glucose* 106 mg/dL (60-115)
== END 2022-08-18 10:30 | disposition home or self-care (01) ==
PROVIDERS: PCP Internal Medicine; Visit Provider Family Medicine
DX: I10 Essential (primary) hypertension (principal)
CPT/HCPCS: 80048

== ENCOUNTER 2022-12-02 14:23 | Outpatient (CLI) | payer MEDICARE, SELFPAY ==
--- NOTE | 2022-12-02 14:40 | CRLHL7_ITS ---
For Patients: As a result of the Cures Act, medical imaging exams and procedure reports are released immediately into your electronic medical record. You may view this report before your referring provider. If you have questions, please contact your health care provider. BILATERAL SCREENING MAMMOGRAM WITH COMPUTER-AIDED DETECTION AND TOMOSYNTHESIS TECHNIQUE: CC and MLO views were obtained. These mammographic images have been obtained using full-field digital technique. These mammographic images were interpreted with the benefit of computer-aided detection. Breast tomosynthesis was used in this interpretation. COMPARISON FILM: 11/20/21, 10/17/20, 01/24/19. FINDINGS: There are scattered areas of fibroglandular density. IMPRESSION: There is no radiographic evidence for malignancy. ASSESSMENT: BI-RADS Category 2: Benign RECOMMENDATION: Routine screening mammogram in 1 year. A lay language report of this examination will be provided to the patient. LOY CARTY M.D. Diagnostic/Nuclear Medicine Radiologist [email or web address] CORRINE:chadwick Transcribed: 12/03/2022, 4:[address]/Dictated by: Loy Carty MD @ 12/03/2022 9:09:00 AM (Electronically Signed)
== END 2022-12-02 14:24 | disposition home or self-care (01) ==
LOC: MAMMO 14:25
PROVIDERS: PCP Internal Medicine; Visit Provider Internal Medicine
DX: Z12.31 Encounter for screening mammogram for malignant neoplasm of breast (principal)
CPT/HCPCS: 77063; 77067

== ENCOUNTER 2022-12-06 11:30 | Outpatient (RCR) | payer MEDICARE, SELFPAY ==
[2022-09-16 13:23] LABS: Hours Collected 24 hr; Total Volume 1600 mL
--- NOTE | 2022-09-28 08:53 | ONC.NURNOTE ---
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 All test normal-patient happy with results and states she will see us in November after her mammogram.
== END 2023-01-25 23:59 | disposition home or self-care (01) ==
LOC: CCIC 11:30
PROVIDERS: Nurse Practitioner Family; PCP Internal Medicine; Referring Provider Internal Medicine; Visit Provider Physician Assistant
DX: C50.911 Malignant neoplasm of unspecified site of right female breast (principal); Z17.1 Estrogen receptor negative status [ER-]; D3A.00 Benign carcinoid tumor of unspecified site; G60.8 Other hereditary and idiopathic neuropathies
CPT/HCPCS: 36415; 83497; 99212; 99214

== ENCOUNTER 2022-12-20 14:30 | Outpatient (RCR) | payer MEDICARE, SELFPAY ==
--- NOTE | 2022-11-25 10:37 | PT.OPE ---
PT [facility] PT [facility] Outpatient Eval Start: 11/25/22 08:26 Freq: Status: Active Protocol: Document 11/25/22 09:26 LSL (Rec: 11/25/22 09:56 LSL [id number]) E-signed By Aubrie Damon, PT Physical Therapy Outpatient Evaluation Insurance Information Insurance Name Medicare B Medical Diagnosis L knee pain s/p L TKA 01/06/22 Treating Diagnosis pain, weakness, impaired balance, impaired gait Referring MD Salgado Subjective Subjective Pt. reports she felt pretty good after her L TKA in January and had 3 teeth extracted in August and then a few weeks after she noticed her knee felt more stiff. Currently she feels like she babies it when she walks and around the house she shuffles. She has stairs to the basement, but not having any trouble with them. Then she states sometimes I do step by step though. I do everything I want to do. I like to work outside in the summer in my garden, go camping, and ride my bike. PMH - 2013 carcinoid, 2020 breast cancer (carcinoma), peripheral neuropathy and balance issues from chemo Pain Comments Date of Last Physician Visit 11/18/22 Current Work Status Retired Precautions Weight Bearing Status Full Weight Bearing Therapy Limitations/Systems Review Other Medical Problem Objective Range of Motion AROM R 0/0/110 L 3/0/115 PROM R 0/0/115 L 3/0/125 Strength Functional - squat first attempt offloads to R LE and uses R UE, second attempt when asked to just move as far as she can without her arms was able to do a decent squat Knees - R quad and HS 5/5, L quad 5/5, HS inconsistent contraction Hip - L flexion 4/5, R 5/5, L abduction 3+/5, R 4+/5 (tends to move into hip flexion L>R), L extension 3+/5, R 5/5 Trunk - upper abdominals 2+/5, Swelling localized at pes anserine bursa Palpation L medial knee painful and adductors, R adductors tender Balance & Gait B SL impaired to less than 2 seconds GAIT - shuffling Posture Unremarkable Assessment Assessment/Impression Pt. is a 77 y/o female who presents with weak left glutes , tight and tender left hip adductors and stiffness in her left knee 10 months s/p L TKA . Additionally her gait and balance are impaired more likely due to her peripheral neuropathy and post chemo balance issues. She will benefit from treatment to work on tissue extensibility in her adductors, core strength, gait and balance using manual therapy, therex and NM re-ed. Primary Functional Limitations walking, balance, stairs Plan of Care Rehabilitation Potential Good Physical Therapy Goals SHORT TERM GOALS: (3 weeks) 1. Pt. consistent with HEP. 2. Pt. able to walk through grocery store without knee being irritated. ASSISTED GOALS: (4+ weeks) 1. Pt. able to balance on each leg for 5 seconds or more to improve quality of gait. 2. Pt. able to go up and down stairs reciprocally without thinking about it. 3. Pt. feels safe to work in her yard in the spring. Coordination/Communication With Referral Source Treatment Plan/Direct Interventions Manual Therapy,Neuromuscular Re-ed,Self-Care/Home Management,Therapeutic Exercises Frequency/Duration 2x/week 6 weeks Patient Will Be Discharged From Therapy Completion of LTG(s),Skills Plateau,Independent w/HEP, Independently Progressing Evaluation Billing Untimed Code Treatment Minutes 30 Complexity Moderate Certification Information Initial Certification Date 11/25/22 Ending Certification Date 01/28/23 Provider Signature Shows Agreement With POC & Medical Necessity Physician Signature & Date Requested Please Sign/Date Here Physician Comment/Change : Physician NPI Number #
== END 2023-01-21 09:56 | disposition home or self-care (01) ==
PROVIDERS: PCP Internal Medicine; Visit Provider Orthopaedic Surgery Sports Medicine
DX: Z96.652 Presence of left artificial knee joint (principal); Z51.89 Encounter for other specified aftercare
CPT/HCPCS: 97110; 97140; 97162

== ENCOUNTER 2023-05-26 09:55 | Outpatient (CLI) | payer MEDICARE, SELFPAY ==
--- NOTE | 2023-05-26 11:00 | CRLHL7_ITS ---
For Patients: As a result of the Century Cures Act, medical imaging exams and procedure reports are released immediately into your electronic medical record. You may view this report before your referring provider. If you have questions, please contact your health care provider. CLINICAL INFORMATION: Carcinoid status post surgical resection. Right breast cancer status post lumpectomy TECHNIQUE: Contrast-enhanced CT of the abdomen and pelvis was obtained. Coronal and sagittal reformatted images were obtained. Contrast: 100 mL of Isovue 370 intravenous contrast was injected uneventfully prior to image acquisition. Radiation Dose Estimate (Total Exam DLP): 1338 mGy-cm. COMPARISON: CT chest, abdomen, and pelvis 10/16/2020. FINDINGS: Lower Chest: Lung bases: No focal airspace opacities or pleural effusions. Subpleural reticular opacities in the right middle lobe may represent post radiation treatment changes. Heart/Pericardium: Coronary artery atherosclerotic calcifications. Abdomen/Pelvis: Liver: Noncirrhotic morphology. Stable 9 mm hypoattenuated left hepatic lobe lesion which may represent small cyst. Mild focal fatty deposition along the falciform ligament Gallbladder: Unremarkable. Spleen: Unremarkable. Adrenal glands: Unremarkable. Kidneys: Enhance symmetrically without hydronephrosis. Nonobstructing bilateral renal calculi measuring up to 4 mm in the right lower pole. Pancreas: Unremarkable. Lymph nodes: No retroperitoneal, mesenteric, inguinal, or pelvic adenopathy by CT criteria. Vascular: Abdominal aorta normal in caliber. Bowel: No bowel obstruction. Stable duodenal diverticula. Stable postsurgical changes related to partial colectomy with ileocolic anastomosis. Urinary bladder: Limited evaluation due to underdistention. No gross pathology. Reproductive structures: Unremarkable for patient`s age. No abdominal/pelvis ascites or free intraperitoneal air. Musculoskeletal: 4.7 x 2.8 cm hypoattenuated in capsulated lesion in the medial right breast may represent postoperative seroma after lumpectomy, however is incompletely characterized on this exam. Visualized osseous structures demonstrate diffuse degenerative changes. IMPRESSION: 1. Stable postsurgical changes related to partial colectomy with ileocolic anastomosis. No evidence of residual or recurrent disease. No evidence of metastatic disease in the abdomen and pelvis. 2. 4.7 cm hypoattenuated in capsular lesion in the medial right breast may represent postoperative seroma after lumpectomy, however recommend correlation with breast surgery history is recommended. 3. Nonobstructing bilateral renal calculi measuring up to 4 mm. Please note that all CT scans at this facility use dose modulation, iterative reconstruction, and/or weight-based dosing when appropriate to reduce radiation dose to as low as reasonably achievable. Dictated by Hector Villalta MD @ 05/27/2023 7:17:23 AM (Electronically Signed)
== END 2023-05-26 09:56 | disposition home or self-care (01) ==
LOC: CT 09:56
PROVIDERS: PCP Internal Medicine; Visit Provider Physician Assistant
DX: C50.911 Malignant neoplasm of unspecified site of right female breast (principal); C7A.029 Malignant carcinoid tumor of the large intestine, unspecified portion; N20.0 Calculus of kidney
CPT/HCPCS: 74177; Q9967

== ENCOUNTER 2023-08-29 13:00 | Outpatient (RCR) | payer MEDICARE, SELFPAY ==
[2023-05-26 10:32] LABS: Chloride* 102 mmol/L (96-114); Sodium* 140 mmol/L (135-149)
[2023-05-26 10:33] LABS: Potassium* 3.7 mmol/L (3.6-5.1)
[2023-05-26 10:35] LABS: Creatinine* 0.8 mg/dL (0.5-1.5); Estimated Glomerular Filt Rate 76 ml/min
[2023-05-26 10:36] LABS: Blood Urea Nitrogen* 25 mg/dL (7-30); Calcium* 9.5 mg/dL (8.4-10.6); Carbon Dioxide* 30 mmol/L (20-32); Glucose* 106 mg/dL (60-115)
== END 2023-08-30 23:59 | disposition home or self-care (01) ==
LOC: CCIC 13:00
PROVIDERS: PCP Internal Medicine; Referring Provider Internal Medicine; Visit Provider Physician Assistant
DX: C50.911 Malignant neoplasm of unspecified site of right female breast (principal); Z17.1 Estrogen receptor negative status [ER-]; C7A.029 Malignant carcinoid tumor of the large intestine, unspecified portion; G62.0 Drug-induced polyneuropathy; T45.1X5A Adverse effect of antineoplastic and immunosuppressive drugs, initial encounter; Z80.0 Family history of malignant neoplasm of digestive organs
CPT/HCPCS: 36415; 80048; 86316; 99212; 99214; 99215

== ENCOUNTER 2023-10-06 10:46 | Outpatient (RCR) | payer MEDICARE, SELFPAY ==
--- NOTE | 2023-10-06 13:39 | PT.OPE ---
PT [facility] Eval PT [facility] Outpatient Eval Start: 10/06/23 13:27 Freq: Status: Active Protocol: Document 10/06/23 13:27 PASQUALE (Rec: 10/06/23 13:29 PASQUALE [id number]) E-signed By Reid Davis DPT, MS Physical Therapy Outpatient Evaluation Insurance Information Recert Due Date 01/04/24 Insurance Name Medicare B,Blue Cross/Blue Shield Medical Diagnosis Shoulder lesion, unspecified, unspecified shoulder; pain in left shoulder Treating Diagnosis L UE weakness and decreased endurance Subjective Subjective Pt is an otherwise healthy 78 y.o. female who presents to PT with c/o L shoulder and upper back pain which began in mid- July 2023. Sxs began after weed whacking for 45 minutes with elevated sxs the next day. Initially experienced L UT and lateral shoulder pain with aching extending down to her lateral L elbow. Sxs have resolved since with no current pain, but she wants to prevent future recurrence of sxs. Able to perform all activities without issues but L UE feels weaker. Radiograph found 11-12 mm calcific tendinopathy at the L SS and moderate L AC joint arthritic changes. PSH of B TKA and PMH of breast CA currently in remission. 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 AGGR factors: lifting objects, cleaning windows and sustained overhead activities. ALLEV factors: rest, ice. Pain Comments 0/10 Current Work Status Retired Preferred Name Jina Precautions Therapy Limitations/Systems Review Not Limited Objective Functional Test Performed & Score Quick DASH: 8% Assessment Assessment/Impression Pt displays signs and symptoms consistent with L RC tendinopathy with significant improvement in sxs since her ortho appointment. Negative L impingement and SS testing revealing L UE weakness and decreased endurance. No signs or symptoms of RC tear with testing revealing L shoulder tightness, hypomobility, weakness and decreased ROM. Pt responded well to joint mobs, stretching and strengthening exercises with improved pain with AROM following today?s session. She would benefit from continued skilled therapy to address these limitations. 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 3. Pt will be able to perform all household cleaning and daily activities without L UE pain to improve tolerance to functional daily activities. Coordination/Communication With Referral Source Treatment Plan/Direct Interventions Joint Mobilization,Manual Therapy,Therapeutic Exercises Frequency/Duration 1x per week for least 6-10 visits, decreasing visit frequency as able. Patient Will Be Discharged From Therapy Completion of LTG(s),Skills Plateau,Independent w/HEP, Independently Progressing Evaluation Billing Untimed Code Treatment Minutes 28 Complexity Moderate Certification Information Initial Certification Date 10/06/23 Ending Certification Date 01/04/24 Provider Signature Shows Agreement With POC & Medical Necessity Physician Signature & Date Requested Please Sign/Date Here Physician Comment/Change : Physician NPI Number #
== END 2023-12-05 15:59 | disposition home or self-care (01) ==
PROVIDERS: PCP Internal Medicine; Visit Provider Physician Assistant Surgical
DX: M75.92 Shoulder lesion, unspecified, left shoulder (principal); Z51.89 Encounter for other specified aftercare
CPT/HCPCS: 97110; 97162

== ENCOUNTER 2023-10-29 10:27 | Emergency (ER) | payer MEDICARE, SELFPAY ==
[2023-10-29 11:07] VITALS: BP 156/77; PULSE 79; RESP 18; TEMP 36.6; O2SAT 98; BMI 34.7
--- NOTE | 2023-10-29 11:26 | ED.GENADULT ---
HPI - General Adult General Chief complaint: Extremity Pain/Injury, Lower Stated complaint: left foot toe pain Time Seen by Provider: 10/29/23 11:13 History of Present Illness HPI narrative: This 78-year-old female comes in reporting pain in the proximal joint of her left great toe. This started a few days ago and she thought that it was related to her peripheral neuropathy. The pain is steadily worsened with some mild swelling and erythema. She does not report a prior history of gout. She does not have any recent injury event or strenuous activity or you overuse activity. Related Data Home Medications Medication Instructions Recorded Confirmed acetaminophen 500 mg tablet 500 mg PO PRN 06/25/22 09/27/23 multivitamin 1 tab PO QAM 06/25/22 09/27/23 psyllium husk [Daily Fiber] 1 tbsp PO DAILY 01/27/23 09/27/23 Previous Rx's Medication Instructions Recorded hydrochlorothiazide 25 mg tablet 25 mg PO DAILY #90 tabs 08/22/23 losartan 100 mg tablet 100 mg PO QDAY #90 tabs 08/22/23 gabapentin 100 mg capsule 200 mg (2 x 100 mg) PO QHS #90 caps 08/29/23 hydrocodone 5 mg-acetaminophen 325 1 tab PO Q4-6H PRN pain #15 tabs 10/29/23 mg tablet ketorolac 10 mg tablet 10 mg PO Q8H 5 days #15 tabs 10/29/23 methylprednisolone 4 mg tablets in See Rx Instructions PO .COMPLEX 10/29/23 a dose pack (Medrol (Eulogio)) #21 ea Allergies Allergy/AdvReac Type Severity Reaction Status Date / Time amoxicillin Allergy Intermediate Hives Verified 09/27/23 10:43 Review of Systems Status of ROS: Reports: 10 or more systems reviewed and unremarkable except as noted in History and below Narrative: Constitutional: No fevers, no weight gain or loss. Eyes: No discharge. No vision changes. HENT: No congestion, no sore throat, no ear pain. Cardiovascular: No chest pain, no palpitations. Respiratory: No shortness of breath, no wheezes, no cough. Gastrointestinal: No abdominal pain, no vomiting, no diarrhea. Genitourinary: No dysuria, no hematuria. Musculoskeletal: Pain with erythema in the left great toe. Skin: No rashes, no pruritis. Neurological: No dizziness, weakness, sensory change, speech change. Endo/Heme/Allergies: No bruising or bleeding. No polydipsia. Pysch: no suicidality, no anxiety, no insomnia. All other systems reviewed and are negative. [facility] Medical History (Updated 10/29/23 @ 12:44 by Miki Ring MD) History of malignant carcinoid tumor of small intestine ?Z85.060 - Personal history of malignant carcinoid tumor of small intestine (ICD-10) History of renal calculi ?Z87.442 - Personal history of urinary calculi (ICD-10) Surgical History (Updated 01/27/23 @ 11:34 by Heidy Mesa MD) History of bilateral knee replacement ?Z96.653 - Presence of artificial knee joint, bilateral (ICD-10) History of tonsillectomy ?Z90.89 - Acquired absence of other organs (ICD-10) History of bowel resection (2013) ?Z90.49 - Acquired absence of other specified parts of digestive tract (ICD-10) History of bilateral cataract extraction ?Z98.41 - Cataract extraction status, right eye (ICD-10) ?Z98.42 - Cataract extraction status, left eye (ICD-10) History of benign breast biopsy ?Z98.890 - Other specified postprocedural states (ICD-10) Family History Mother Colon cancer Father Colon cancer Brother Colon cancer Social History (Updated 08/22/23 @ 14:31 by Marcie Ivory [facility]) What is your current living situation?: I presently have a place to live Problems where you live: no known problems In the past 12 months, utilities in danger of being shut off: no In past 12 months, lack of transportation kept you from medical appts, meetings, work, or getting things needed for daily living: no In the past 12 mos, have been you worried that your food would run out before you had money to buy more?: never true In the past 12 mos, the food you bought just didn't last and you didn't have money to buy more?: never true Smoking Status: Former smoker How often does anyone, including family, friends and others, physically hurt you: never How often does anyone, including family, friends and others, insult or talk down to you: never How often does anyone, including family, friends and others, threaten you with harm: never How often does anyone, including family, friends and others, scream or curse at you: never Little interest or pleasure in doing things: not at all Feeling down, depressed, or hopeless: not at all Exam Narrative: Exam Narrative: Constitutional: Well-developed, well-nourished, no acute distress. HEENT: Normocephalic, atraumatic. Neck: Normal range of motion. Nontender. Supple. Heart: Regular. No murmurs. Normal rate. Intact distal pulses. Lungs: Clear to auscultation. No chest discomfort. No wheezes, rhonchi, or rales. Abdomen: Normal bowel sounds. Nontender. No rebound tenderness. Genitalia: Deferred. Back: No midline tenderness. Normal range of motion. Extremities: Left great toe has mild swelling with erythema and pain with movement of that proximal joint. Skin: Intact. No rash. Warm. No erythema or pallor. Neurologic: No altered sensation. No weakness. Alert and oriented. Psychiatric: No suicidality. No anxiety or depression. No insomnia. Nursing notes and vitals signs are reviewed. Const: Vital Signs, click to edit/add: Vital Signs - 24 hr 10/29/23 11:07 Temperature 97.9 F Pulse Rate [Right Pulse Oximeter] 79 Respiratory Rate 18 Blood Pressure [Ri ght Upper Arm] 156/77 H Pulse Oximetry 98 Oxygen Delivery Me thod Room Air Course Vital Signs Vital signs: Initial Vital Signs Temperature 97.9 F 10/29/23 11:07 Temperature Source Temporal Artery Scan 10/29/23 11:07 Pulse Rate 79 10/29/23 11:07 Respiratory Rate 18 10/29/23 11:07 Blood Pressure 156/77 H 10/29/23 11:07 Blood Pressure Mean 103 10/29/23 11:07 Blood Pressure Position Sitting 10/29/23 11:07 Pulse Oximetry 98 10/29/23 11:07 Oxygen Delivery Method Room Air 10/29/23 11:07 Vital Signs Temperature 97.9 F 10/29/23 11:07 Pulse Rate 79 10/29/23 11:07 Respiratory Rate 18 10/29/23 11:07 Blood Pressure 156/77 H 10/29/23 11:07 Pulse Oximetry 98 10/29/23 11:07 Oxygen Delivery Method Room Air 10/29/23 11:07 Temperature 97.9 F 10/29/23 11:07 Pulse Rate 79 10/29/23 11:07 Respiratory Rate 18 10/29/23 11:07 Blood Pressure 156/77 H 10/29/23 11:07 Pulse Oximetry 98 10/29/23 11:07 Oxygen Delivery Method Room Air 10/29/23 11:07 Medical Decision Making MDM Narrative Medical decision making narrative: This patient comes in with pain and some redness in her left great toe. It is suspicious for gout but she does not have any prior history of gout. I explained that the best test is getting joint aspirate to look for crystals but this is typically painful and that MP joint of the toe is not a easy target to acquire fluid. A uric acid level if elevated does verify gout but it may be normal in yet be a gout flare up. This patient did have labs drawn in her uric acid level returns normal as does her white blood cell count. The patient did received prescription for Medrol Dosepak, Toradol, and some tablets of [place] which should help symptoms what ever may be the cause. She is not showing typical signs of cellulitis or certainly not infection in the joint. Lab Data Labs: Lab Results 10/29/23 Range/Units 11:44 WBC 6.52 (4.50-11.00) K/uL RBC 4.06 (4.00-5.20) m/uL Hgb 12.9 (12.0-16.0) gm/dL Hct 38.4 (33.0-51.0) % MCV 95 (80-100) fL MCH 32 (26-34) pg MCHC 34 (32-36) gm/dL RDW Coeff of Colin 12.6 (11.5-15.5) % Plt Count 199 (140-440) K/uL Neut % (Auto) 67.8 (42.0-72.0) % Lymph % (Auto) 17.3 L (20-44) % [place] % (Auto) 12.4 H (0.0-11.0) % Eos % (Auto) 1.7 (0.0-7.0) % Baso % (Auto) 0.8 (0.0-3.0) % Neut # (Auto) 4.42 (1.7-7.0) K/uL Lymph # (Auto) 1.10 (0.90-2.90) K/uL [place] # (Auto) 0.80 (0.00-0.90) K/UL Eos # (Auto) 0.11 (0.00-0.50) K/uL Baso # (Auto) 0.05 (0.00-0.30) K/uL Abs Immat Gran (auto) 0.00 (0.00-0.30) K/uL Imm/Tot Granulo (auto) 0.0 % Uric Acid 4.6 (2.2-8.4) mg/dL Discharge Plan Discharge Clinical Impression: Great toe pain Patient Disposition: Home, Self-Care Condition: Unchanged Additional Instructions: Take medications as needed and indicated. Follow up with MD return if worsening. Prescriptions: New hydrocodone-acetaminophen 5-325 mg tablet 1 tab PO Q4-6H PRN (Reason: pain) Qty: 15 0RF ketorolac 10 mg tablet 10 mg PO Q8H 5 Days Qty: 15 0RF methylprednisolone [Medrol (Eulogio)] 4 mg tablets,dose pack See Rx Instructions .ROUTE .COMPLEX Qty: 21 0RF Rx Instructions: orally per package directions No Action multivitamin Tablet 1 tab PO QAM acetaminophen 500 mg tablet 500 mg PO PRN Rx Instructions: NO MORE THAN 4000 MG/DAY gabapentin 100 mg capsule 200 mg PO QHS Qty: 90 1RF hydrochlorothiazide 25 mg tablet 25 mg PO DAILY Qty: 90 3RF losartan 100 mg tablet 100 mg PO QDAY Qty: 90 3RF psyllium husk [Daily Fiber] 1 tbsp PO DAILY Follow Up/Referrals: Heidy Mesa MD [Primary Care Provider] - Stand Alone Forms: MyHealth Info Instructions
[2023-10-29 11:50] LABS: Basophils Absolute Auto 0.05 K/uL (0.00-0.30); Basophils Percent Auto 0.8 % (0.0-3.0); Eosinophils Absolute Auto 0.11 K/uL (0.00-0.50); Eosinophils Percent Auto 1.7 % (0.0-7.0); Hematocrit 38.4 % (33.0-51.0); Hemoglobin* 12.9 gm/dL (12.0-16.0); Lymphocytes Percent Auto 17.3 % (20-44); Mean Corpuscular HGB Conc 34 gm/dL (32-36); Mean Corpuscular Hemoglobin 32 pg (26-34); Mean Corpuscular Volume 95 fL (80-100); Monocytes Percent Auto 12.4 % (0.0-11.0); Neutrophils Absolute Auto 4.42 K/uL (1.7-7.0); Neutrophils Percent Auto 67.8 % (42.0-72.0); Platelet Count* 199 K/uL (140-440); RDW Coefficient of Variation % 12.6 % (11.5-15.5); Red Blood Count 4.06 m/uL (4.00-5.20); White Blood Count* 6.52 K/uL (4.50-11.00)
[2023-10-29 11:59] LABS: Slide Review Reflex No
[2023-10-29 12:07] LABS: Uric Acid* 4.6 mg/dL (2.2-8.4)
== END 2023-10-29 12:54 | disposition home or self-care (01) ==
PROVIDERS: Emergency Provider Emergency Medicine Emergency Medical Services; PCP Internal Medicine
DX: M79.675 Pain in left toe(s) (principal)
CPT/HCPCS: 36415; 84550; 85025; 99283; 99284

== ENCOUNTER 2023-12-05 12:53 | Outpatient (CLI) | payer MEDICARE, SELFPAY ==
--- OUTSIDE RECORDS SUMMARY | 2023-12-05 12:56 | XMS_ITS | Referral Summary ---
Author Name Unknown Organization [facility] Address [address] [place] [address] Care Team Providers Care Painter [employer] Name Role Phone Heidy Mesa MD Primary Care Provider [phone] Allergies Active Allergy Reactions Criticality Noted Date Comments Amoxicillin 03/01/2016 Itching rash Imidazole Antifungals 03/21/1999 hives Penicillins 12/18/2001 hives Medications Medication Sig Dispensed Refills Start Date End Date Status Multiple Vitamins-Minerals (MULTIVITAMIN OR) Take 1 tablet by mouth daily 0 Active triamcinolone (KENALOG) 0.1 % creamIndications:Alexis matitis Apply topically 2 times daily 30 g 0 02/13/2018 Active hydrochlorothiazide (HYDRODIURIL) 25 MG tabletIndications:Es sential hypertension, benign Take 1 tablet (25 mg) by mouth daily 90 tablet 3 02/07/2019 Active losartan (COZAAR) 100 MG tabletIndications:Es sential hypertension, benign Take 1 tablet (100 mg) by mouth daily 90 tablet 3 02/07/2019 Active Active Problems Problem Noted Date Diagnosed Date Venous stasis dermatitis of both lower extremiti es 05/19/2017 Abnormal glucose 02/11/2017 History of malignant carcinoid tumor 04/17/2015 Health [facility] 2012 Overview: State Tier Level: Tier 2 Status: n/a Denture Laboratory Technician: See Letters for [facility] Care Plan Calculus of kidney 03/28/2012 ACP (advance care planning) 02/26/2012 Overview: Advance Care Planning 02/18/2016: ACP Review of [...] Overview: Problem list name updated by automated process. 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 Please review for accuracy Osteoarthritis 07/14/2004 Overview: Problem list name updated by automated process. Provider to review History of colonic polyps Overview: Problem list name updated by automated process. Provider to review Diverticulosis of large intestine Overview: Problem list name updated by automated process. Provider to review Resolved Problems Problem Noted Date Diagnosed Date Resolved Date Malignant neoplasm of ascending colon 12/27/2018 03/19/2019 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 iamSCIATICA 06/06/2006 12/11/2007 Absence of menstruation 04/08/2003 02/02/2008 Trigger finger, acquired 04/08/200302/2008 Overview: Problem list name updated by automated process. Provider to review Other acne 06/23/2016 Immunizations Name Administration Dates Next Due Influenza (High Dose) 3 valent vaccine 7 Influenza (IIV3) PF 08/27/1998 Influenza Vaccine >6 months,quad, PF 09/27/2018 Pneumo Conj 13-V (2010&after) 02/27/2015 Pneumococcal 23 valent 02/26/2012 TD,PF 7+ (Tenivac) 03/13/2001,12/08/1990 TDAP Vaccine (Boostrix) 03/29/2011 Zoster recombinant adjuvanted (SHINGRIX) 019,02/12/2019 Social History Tobacco Use Types Packs/Day Years Used Date Smoking Tobacco: Former Cigarettes 0.5 15 Q uit: 11/07/1995 Smokeless Tobacco: Never Tobacco Cessation:Counseling Given: Yes Alcohol Use Standard Drinks/Week Comments Yes 0 (1 standard drink = 0.6 oz pur e alcohol) rarely PHQ-2 Answer Date Recorded PHQ-2 Score 0 02/07/2019 Adolescent Education Answer Date Record ed Getting School Help Needed Not on file 08/21 Sex and Gender Information Value Date Recorded Sex Assigned at Female 10/17/2018 7:14 PM [employer]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 Gender Identity Female 10/17/2018 7:14 PM AB[employer]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 Sexual Orientation Straight 10/17/2018 7: 14 PM ABORIGINAL 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 Last Filed Vital Signs Vital Sign Reading Time Taken Comments Blood Pressure 118/74 06/09/2019 10:18 AM CDT Pulse 74 06/09/2019 10:18 AM CDT Temperature 36.6 ??C (97.9 ??F) 06/09/2019 10:18 AM C DT Respiratory Rate 20 06/04/2019 6:20 PM CDT Oxygen Saturation 97% 06/09/2019 10:18 AM CDT Inhaled Oxygen Concentration - - Weight 96.9 kg (213 lb 9.6 oz) 06/09/2019 10:18 AM CDT Height 167.6 cm (5' 6) 06/09/2019 10:18 AM CDT Body Mass Index 34.48 06/09/2019 10:18 AM CDT Plan of Treatment Not on file Medical Devices Implanted Type Area Hall Director Device Identifier Shelf Expiration Date Model / Serial / Lot Stent Ureteral Contour Soft Percuflex [id number] Implanted:Qty : 1 on 03/28/2019 by Jared Jackson MD at [facility] Stent Right: Ureter [employer] 11/26/2021 [id number] / / [id number] Stent Ureteral Dbl Pigtail Inlay [id number] Implanted:Qty : 1 on 06/08/2012 by Jared Jackson MD at [facility] Right: Ureter 03/08/2017 [id number] / / [id number] M[address] Hernia 3.1x4.7 Oval Sm [id number] Implanted:Qty : 1 on 05/02/2015 by Cheikh Barcenas MD at [facility] N/A: Abdomen CR [employer] 01/04/2017 [id number] / / [id number] Explanted Type Area Hall Director Device Identifier Shelf Expiration Date Model / Serial / Lot Stent Ureteral Contour Soft Percuflex [id number] Explanted:Qty: 1 on 03/28/2019 by Jared Jackson MD at [facility] Stent Right: Ureter [employer] 11/19/2021 [id number] / / [id number] Advance Directives For more information, please contact: [phone] Documents on File Type Date Recorded Patient Museum Attendant Expl anation Advance Directives and Livin g Will 02/07/2019 9:34 AM Power of Graphic Manager 02/07/2019 9:34 AM Latest Code Status on File Code Status Date Activated Date Inactivated Comments Full Code 08/03/2014 9:14 AM 10/25/2018 6:31 AM Code Status History Code Status Date Activated Date Inactivated Comments Full Code 07/31/2014 3:56 PM 08/03/2014 9:14 AM Care Teams Painter Structural Steel Relationship Specialty Start Date End Date Heidy Mesa MD [place] [id number] PCP - General Internal Medicine 10/07/20
--- OUTSIDE RECORDS SUMMARY | 2023-12-05 12:56 | XMS_ITS | Data Portability ---
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 Plan of Treatment Reminders Order Date Submit Date Provider Last Modified By Organization Details Last Modified Time Details Appointments None recorded. Lab urinalysi s, dipstick 2022 023 [email or web address] [facility], [address], [place], [address], 3 14:54:01 urinalysi s, dipstick 2021 022 [email or web address] [facility], [address], [place], [address], 2 16:13:45 urinalysi s, dipstick 2020 021 [email or web address] Not available 1 15:00:38 urinalysi s, dipstick 2019 020 [email or web address] Not available 0 11:54:39 Referral None recorded. Procedures None recorded. Surgeries None recorded. Imaging US, renal [email or web address] [place] [address] [facility], [address], [address], [place], [address], 3 17:12:34 US, renal - bilateral renal ultrasoun d 2020 021 [email or web address] Not available 1 10:27:21 Medication Orders None recorded. Patient TargetsNo targets recorded. Patient InstructionsNo instructions recorded. Reason for Referral None Reported. Results Created Date Observation Date Name Description Value Unit Range Abnormal Flag LastModifiedBy Organization Detail LastModifiedTime 10/07/2020 urina lysis , dipst ick Ketones-Stat us 5 Not Available [facility] [address], [place], [address], 10/07/2020 11:52:43 10/07/2020 urina lysis , dipst ick pH-Status 7.5 Not Available [facility] [address], [place], [address], 10/07/2020 11:52:43 10/07/2020 urina lysis , dipst ick Nitrates-Sta tus negati ve Not Available [facility] [address], [place], [address], 10/07/2020 11:52:43 10/07/2020 urina lysis , dipst ick Blood-Status Negati ve Not Available [facility] [address], [place], [address], 10/07/2020 11:52:43 10/07/2020 urina lysis , dipst ick Leuko-Status Trace Not Available [facility] [address], [place], [address], 10/07/2020 11:52:43 04/18/20 19 04/20/2019 [place] nur[place] composition commen t Not [place], [address] 07/01/2020 09:26:06 04/18/20 19 04/20/2019 brayan [place] nur[place] sis please note: commen t [place], [address] 07/01/2020 09:26:06 06/12/20 19 04/20/2019 [place] comment: commen t Not Available [place], [address] 07/01/2020 09:26:06 04/18/20 19 04/20/2019 [place] nur[place] sis disclaimer: commen t Not Available [place], [address] 07/01/2020 09:26:06 04/18/20 19 04/26/2019 [place] nur[place] color brown Not Available [place], [address] 07/01/2020 09:26:06 04/18/20 19 04/26/2019 [place] nurys sis size commen t mm Not Available [place], [address] 07/01/2020 09:26:06 04/18/20 19 04/26/2019 [place] nur[place] weight 9.8 mg Not Available [place], [address] 07/01/2020 09:26:06 04/18/20 19 04/26/2019 [place] nurys sis Ca oxalate dihydrate 10 % Not Available [place], [address] 07/01/2020 09:26:06 04/18/20 19 04/26/2019 [place] nurys sis Ca oxalate monohydr. 82 % Not Available [place], [address] 07/01/2020 09:26:06 04/18/20 19 04/26/2019 [place] nur[place] calcium phosphate 08 % Not Available [place], [address] 07/01/2020 09:26:06 04/18/20 19 04/26/2019 [place] nur[place] magnesium gaby phos transfer machine operator Not Available [place], [address] 07/01/2020 09:26:06 04/18/20 19 04/26/2019 [place] nur[place] uric acid transfer machine operator Not Available [place], [address] 07/01/2020 09:26:06 04/18/20 19 04/26/2019 [place] nurys sis uric acid dihydrate transfer machine operator Not Available [place], [address] 07/01/2020 09:26:06 04/18/20 19 04/26/2019 [place] nur[place] sis ammonium acid urate transfer machine operator Not Available [place], [address] 07/01/2020 09:26:06 04/18/20 19 04/26/2019 [place] nur[place] sodium acid urate transfer machine operator Not Available [place], [address] 07/01/2020 09:26:06 04/18/20 19 04/26/2019 [place] nurys sis Ca hydrogen phos. transfer machine operator Not Available [place], [address] 07/01/2020 09:26:06 04/18/20 19 04/26/2019 [place] nur[place] cystine transfer machine operator Not Available [place], [address] 07/01/2020 09:26:06 04/18/20 19 04/26/2019 [place] nur[place] cholesterol transfer machine operator Not Available [place], [address] 07/01/2020 09:26:06 04/18/20 19 04/26/2019 [place] nurys sis calcium bilirubinate transfer machine operator Not Available [place], [address] 07/01/2020 09:26:06 04/18/20 19 04/26/2019 [place] nurys sis calcium carbonate transfer machine operator Not Available [place], [address] 07/01/2020 09:26:06 04/18/20 19 04/26/2019 [place] nur[place] triamterene transfer machine operator Not Available [place], [address] 07/01/2020 09:26:06 04/18/20 19 04/26/2019 [place] nurys sis newberyite transfer machine operator Not Available [place], [address] 07/01/2020 09:26:06 04/18/20 19 04/26/2019 [place] nurys sis dried blood transfer machine operator Not Available [place], [address] 07/01/2020 09:26:06 04/18/20 19 04/26/2019 [place] nur[place] cellular material transfer machine operator Not Available [place], [address] 07/01/2020 09:26:06 04/18/20 19 04/26/2019 [place] nur[place] nidus no nidus visual ized Not Available [facility] [place], [address] 07/01/2020 09:26:06 04/18/20 19 04/26/2019 [place] nurys sis shell transfer machine operator Not Available [facility] [place], [address] 07/01/2020 09:26:06 04/18/20 19 04/26/2019 [place] nurys sis surface crystals transfer machine operator Not Available [facility] [place], [address] 07/01/2020 09:26:06 04/18/20 19 04/26/2019 kidne [place] nurys sis comment Not Available [facility] [place], [address] 07/01/2020 09:26:06 04/18/20 19 04/26/2019 [place]ne [place] nurys sis pdf . Not Available [facility] [place], [address] 07/01/2020 09:26:06 09/22/20 21 09/22/2021 urina lysis , dipst ick pH-Status 7.0 Not Available [facility] [address], [place], [address], 09/22/2021 14:59:13 07/06/20 22 07/06/2022 urina lysis , dipst ick Color-Status Yellow Not Available [facility] [address], [place], [address], 07/06/2022 16:12:49 07/06/20 22 07/06/2022 urina lysis , dipst ick Clarity-Stat us Clear Not Available [facility] [address], [place], [address], 07/06/2022 16:12:49 07/06/20 22 07/06/2022 urina lysis , dipst ick Glucose-Stat us Negati ve Not Available [facility] [address], [place], [address], 07/06/2022 16:12:49 07/06/20 22 07/06/2022 urina lysis , dipst ick Bilirubin-St atus Negati ve Not Available [facility] [address], [place], [address], 07/06/2022 16:12:49 07/06/20 22 07/06/2022 urina lysis , dipst ick Ketones-Stat us Negati ve Not Available [facility] [address], [place], [address], 07/06/2022 16:12:49 07/06/20 22 07/06/2022 urina lysis , dipst ick Sp [place]-Stat us 1.015 Not Available [facility] [address], [place], [address], 07/06/2022 16:12:49 07/06/20 22 07/06/2022 urina lysis , dipst ick pH-Status 7.0 Not Available [facility] [address], [place], [address], 07/06/2022 16:12:49 07/06/20 22 07/06/2022 urina lysis , dipst ick Urobilinogen -Status 0.2 Not Available [facility] [address], [place], [address], 07/06/2022 16:12:49 07/06/20 22 07/06/2022 urina lysis , dipst ick Nitrates-Sta tus negati ve Not Available [facility] [address], [place], [address], 07/06/2022 16:12:49 07/06/20 22 07/06/2022 urina lysis , dipst ick Blood-Status Trace Not Available [facility] [address], [place], [address], 07/06/2022 16:12:49 07/06/20 22 07/06/2022 urina lysis , dipst ick Leuko-Status Trace Not Available [facility] [address], [place], [address], 07/06/2022 16:12:49 07/06/20 22 07/06/2022 urina lysis , dipst ick Specimen Type Voided Not Available [facility] [address], [place], [address], 07/06/2022 16:12:49 07/06/20 22 07/06/2022 urina lysis , dipst ick Performed by Berna Betancourt RN Not Available [facility] [address], [place], [address], 07/06/2022 16:12:49 07/06/20 22 07/06/2022 urina lysis , dipst ick Total Urine Volume 20cc Not Available [facility] [address], [place], [address], 07/06/2022 16:12:49 06/28/20 23 06/28/2023 urina lysis , dipst ick Color-Status Yellow Not Available [facility] [address], [place], [address], 06/28/2023 14:35:35 06/28/20 23 06/28/2023 urina lysis , dipst ick Clarity-Stat us Clear Not Available [facility] [address], [place], [address], 06/28/2023 14:35:35 06/28/20 23 06/28/2023 urina lysis , dipst ick Glucose-Stat us Negati ve Not Available [facility] [address], [place], [address], 06/28/2023 14:35:35 06/28/20 23 06/28/2023 urina lysis , dipst ick Bilirubin-St atus Negati ve Not Available [facility] [address], [place], [address], 06/28/2023 14:35:35 06/28/20 23 06/28/2023 urina lysis , dipst ick Ketones-Stat us Negati ve Not Available [facility] [address], [place], [address], 06/28/2023 14:35:35 06/28/20 23 06/28/2023 urina lysis , dipst ick Sp [place]-Stat us 1.025 Not Available [facility] [address], [place], [address], 06/28/2023 14:35:35 06/28/20 23 06/28/2023 urina lysis , dipst ick pH-Status 7.0 Not Available [facility] [address], [place], [address], 06/28/2023 14:35:35 06/28/20 23 06/28/2023 urina lysis , dipst ick Nitrates-Sta tus negati ve Not Available [facility] [address], [place], [address], 06/28/2023 14:35:35 06/28/20 23 06/28/2023 urina lysis , dipst ick Blood-Status Negati ve Not Available [facility] [address], [place], [address], 06/28/2023 14:35:35 06/28/20 23 06/28/2023 urina lysis , dipst ick Leuko-Status Small Not Available [facility] [address], [place], [address], 06/28/2023 14:35:35 06/28/20 23 06/28/2023 urina lysis , dipst ick Specimen Type Voided Not Available [facility] [address], [place], [address], 06/28/2023 14:35:35 10/08/20 20 10/07/2020 XR, kidne y + urete r + bladd er No observ ation record ed. [email or web address] Not Available 10/09/2020 15:13:55 10/16/20 20 10/16/2020 CT, chest + abdom en + pelvi s, w/ contr ast No observ ation record ed. [email or web address] [facility] [address], [place], [address], 10/17/2020 08:42:15 10/16/20 20 10/16/2020 CT, chest + abdom en + pelvi s, w/ contr ast No observ ation record ed. [email or web address] [facility] [address], [place], [address], 10/17/2020 08:42:03 09/23/20 21 09/22/2021 XR, kidne y + urete r + bladd er No observ ation record ed. [email or web address] [facility] [address], [place], [address], 09/24/2021 10:28:37 12/15/19 22 12/15/2021 US, kidne y EXAM: US RENAL BILATE RAL LOCATI ON: [facility] [place] DATE/T BRIT: 12/15/19 22 1:32 PM INDICA TION: Calcul us of kidney . COMPAR ENEDELIA: KUB 2020. TECHNI QUE: Routin e Bilate ral Renal and Bladde r Ultras ound. FINDIN GS: RIGHT KIDNEY : 10.4 x 5.6 x 4.3 cm. Normal echoge nicity and cortic al thickn ess. No hydron ephros is. There are approx imatel y 5 hypere choic foci in the right kidney , the larger of which are shadow ing. The larges t measur es up to 9 mm. No renal mass eviden t. LEFT KIDNEY : 10.8 x 5.3 x 5.0 cm. Normal echoge nicity and cortic al thickn ess. There are 2 hypere choic foci in the left kidney , the larges t of which measur es up to 7 mm and shadow s. No hydron ephros is. BLADDE R: Normal . IMPRES MALLORIE: 1. There appear to be bilate ral urinar y tract calcul i but no hydron ephros is. This report was electr onical ly interp reted by: DR. TANGELA HARRINGTON M.D. [facility] [address], [place], [address], 12/23/2021 15:42:59 07/07/20 22 07/06/2022 CT, abdom en + pelvi s, w/o contr ast No observ ation record ed. [email or web address] [facility] [address], [place], [address], 07/08/2022 16:11:49 Result Notes None recorded. Problems Name Status Onset Date Resolution Date Notes Provider Name and Address Organization Details Recorded Time Microscopic hematuria Active 012 599.72 : MICROSCOPIC HEMATURIA Not Available [facility] 0 01:57:44 Kidney stone Active 012 592.0 : CALCULUS-KIDN EY Not Available [facility] 0 01:57:44 Problem Notes None recorded. Procedures Surgical History None recorded. Imaging Results Imaging Date Name Status LastModified by Organiz ation Details LastModified Time 10/07/2020 XR, kidney + ureter + bladder completed [email or web address] Information not available 10/09/2020 15:13:55 10/16/2020 CT, chest + abdomen + pelvis, w/ contrast completed [email or web address] [facility] [address], [place], [address], 10/17/2020 08:42:15 10/16/2020 CT, chest + abdomen + pelvis, w/ contrast completed [email or web address] [facility] [address], [place], [address], 10/17/2020 08:42:03 09/22/2021 XR, kidney + ureter + bladder completed [email or web address] [facility] [address], [place], [address], 09/24/2021 10:28:37 12/15/2021 US, kidney completed [facility] [address], [place], [address], 12/23/2021 15:42:59 07/06/2022 CT, abdomen + pelvis, w/o contrast completed [email or web address] [facility] [address], [place], [address], 07/08/2022 16:11:49 Procedure Notes None recorded. Medical Equipment None Reported. Allergies Allergen ID Allergen Name Allergen Category Reaction Reaction Severity Criticality Documentation Date Start Date Code Code System Note Provider Name and Address Organization Details Recorded Time 329022 Penicilli n Not available Not available Not available Not available 04/24/20202011 36630 RxNorm Not Available [facility] 0 00:48:41 866461 amoxicill in medicatio n Not available Not available Not available 06/28/2023 723 RxNorm MAYRA Pillai - [facility] 3 14:32:52 Medications Name Sig Start Date Stop Date Status Note LastModified by Organization Details LastModified Time aspirin low 81mg chw CHEW AND SWALLOW 1 TABLET BY MOUTH TWICE DAILY MEDICATIO N FOR DEEP VEIN CLOT PREVENTIO N POST SURGERY. 10/07 completed Not Available Not Available Not Available losartan 50 mg tablet TAKE 1 TABLET BY MOUTH ONCE DAILY active Not Available Not Available No t Available celecoxib 200 mg capsule TAKE 1 CAPSULE BY MOUTH TWICE DAILY 06/28 completed Not Available Not Available Not Available potassium chloride ER 10 mEq capsule,ext ended release TAKE 1 CAPSULE BY MOUTH DAILY IN ADDITION TO OTHER POTASSIUM . TOTAL OF 20 MEQ OR 2 TABLET OF POTASSIUM FOR THE NEXT 7 DAYS 06/28 completed Not Available Not Available Not Available doxycycline hyclate 100 mg capsule TAKE 1 CAPSULE BY MOUTH TWICE DAILY FOR 7 DAYS 06/28 completed Not Available Not Available Not Available clindamycin HCl 300 mg capsule TAKE 1 CAPSULE BY MOUTH THREE TIMES DAILY FOR 5 DAYS 06/28 completed Not Available Not Available Not Available hydrocodone 5 mg-acetamin ophen 325 mg tablet TAKE 1/2 (ONE-HALF ) TABLET BY MOUTH EVERY 4 TO 6 HOURS NEEDED FOR PAIN 06/28 completed Not Available Not Available Not Available doxycycline hyclate 50 mg capsule 07/06 completed Not Available Not Available Not Available prochlorper azine maleate 10 mg tablet 06/28 completed Not Available Not Available Not Available ciprofloxac in 500 mg tablet TAKE 1 TABLET BY MOUTH EVERY 12 HOURS FOR 3 DAYS 10/07 completed Not Available Not Available Not Available vancomycin 125 mg capsule 07/06 completed Not Available Not Available Not Available ciclopirox 8 % topical solution APPLY SOLUTION TOPICALLY TO TOENAILS AT BEDTIME , CLEAN OFF EVERY WEEK 06/28 completed Not Available Not Available Not Available lorazepam 0.5 mg tablet 06/28 completed Not Available Not Available Not Available sulfacetami de sodium 10 % eye drops 06/28 completed Not Available Not Available Not Available doxycycline monohydrate 100 mg capsule 07/06 completed Not Available Not Available Not Available cephalexin 500 mg capsule TAKE FOUR CAPSULES BY MOUTH ONE HOUR BEFORE APPOINTME NT 06/28 completed Not Available Not Available Not Available erythromyci n 5 mg/gram (0.5 %) eye ointment 06/28 completed Not Available Not Available Not Available hydrochloro thiazide 25 mg tablet TAKE 1 TABLET BY MOUTH ONCE DAILY active Not Available Not Available No t Available gabapentin 100 mg capsule TAKE 1 CAPSULE BY MOUTH EVERY DAY AT BEDTIME active Not Available Not Available No t Available ibuprofen 600 mg tablet TAKE 1 TABLET BY MOUTH EVERY 6 HOURS NEEDED 06/28 completed Not Available Not Available Not Available losartan 100 mg tablet TAKE 1 TABLET BY MOUTH ONCE DAILY 06/28 completed Not Available Not Available Not Available fluticasone propionate 50 mcg/actuati on nasal spray,suspe nsion USE 2 SPRAY(S) IN EACH NOSTRIL ONCE DAILY 06/28 completed Not Available Not Available Not Available mometasone 0.1 % topical cream 06/28 completed Not Available Not Available Not Available oxycodone 5 mg tablet TAKE 1 TABLET BY MOUTH EVERY 4-8 HOURS NEEDED 07/06 completed Not Available Not Available Not Available neomycin 3.5 mg/g-polymy shayna B 10,000 unit/g-dexa meth 0.1 % eye oint 06/28 completed Not Available Not Available Not Available Pain Reliever (acetaminop hen) 500 mg tablet TAKE 1 TO 2 TABLETS BY MOUTH EVERY 6 HOURS NEEDED . DO NOT EXCEED 4000 MG OF ACETAMINO PHEN PER 24 HOURS 10/07 completed Not Available Not Available Not Available chlorhexidi ne gluconate 0.12 % mouthwash RINSE MOUTH WITH 15 ML (1 CAPFUL) FOR 30 SECONDS IN THE MORNING AND EVENING AFTER TOOTHBRUS EMA EXPECTORA TE AFTER RINSING DO NOT SWALLOW 06/28 completed Not Available Not Available Not Available Stool Softener-St imulant Laxative 8.6 mg-50 mg tablet TAKE 1 TABLET BY MOUTH TWICE DAILY HOLD MEDICATIO N IF EXPERIENC ING LOOSE STOOLS 10/07 completed Not Available Not Available Not Available Multi Vitamin active Not Available Not Available Not Available Fiber Supplement (inulin) active Not Available Not Available Not Available Fluzone High-Dose Quad (PF) 240 mcg/0.7 mL IM syringe 06/28 completed Not Available Not Available Not Available Paxlovid 300 mg (150 mg x 2)-100 mg tablets in a dose pack TAKE 3 TABLETS TOGETHER (TWO 150 MG NIRMATREL VIR TABLETS AND ONE 100 MG RITONAVIR TABLET) BY MOUTH TWICE DAILY FOR 5 DAYS. 06/28 completed Not Available Not Available Not Available Vitals Date Recorded Body height Body mass index (BMI) Body weight Provider Name and Address Organization Details Last Updated DateTime 07/06/2022 168.91 cm 33.9 kg/m2 59750.17 g Dagmar Koroma [facility] 07/06/2022 16:09:44 Date Recorded Body height Body mass index (BMI) Body weight Provider Name and Address Organization Details Last Updated DateTime 06/28/2023 168.91 cm 34.3 kg/m2 87248.95 g Berna Mckeonen [facility] 06/28/2023 14:32:27 Date Recorded Body height Body mass index (BMI) Body weight Provider Name and Address Organization Details Last Updated DateTime 10/07/2020 168.91 cm 33.9 kg/m2 90706.17 g Zahra Darwin [facility] 10/07/2020 11:49:34 Date Recorded Body height Body mass index (BMI) Body weight Provider Name and Address Organization Details Last Updated DateTime 09/22/2021 168.91 cm 33.9 kg/m2 02739.17 shereen Sulaiman Singleton [facility] 09/22/2021 14:58:48 Social History Question Answer Notes LastModified by Organizat ion Details LastModified Time Tobacco Smoking Status Former Smoker Zahra Granados [facility] 10/07/2020 11:51:54 What Is Your Level Of Alcohol Consumption? Occasional [email or web address] Information not available 10/07/2020 What Is Your Level Of Caffeine Consumption? Occasional [email or web address] Information not available 10/07/2020 How Much Tobacco Do You Chew? None [email or web address] Information not available 10/07/2020 Do You Or Have You Ever Used E-cigarettes Or Vape? Never Used Electronic Cigarettes [email or web address] Information not available 10/07/2020 When Did You Quit Smoking? 16+yearssincel astcigarette [email or web address] Information not available 10/07/2020 Recreational Drug Use No [email or web address] Information not available 10/07/2020 Marital Status [email or web address] Informati on not available 10/07/2020 What Was The Date Of Your Most Recent Tobacco Screening? 06/28/2023 [email or web address] Information not available 06/28/2023 Do You Or Have You Ever Used Smokeless Tobacco? Never Used Smokeless Tobacco [email or web address] Information not available 10/07/2020 How Much Tobacco Do You Smoke? No [email or web address] Information not available 10/07/2020 Sex: Female Functional Status None recorded. Mental Status None recorded. Family History Nothing Reported. Medical History Condition Response Sexually Transmitted Infection N Diabetes N Bleeding Disorder N High Blood Pressure Y Kidney Stones Y Cancer N Lung Disease N Depression N High Cholesterol N GERD/Acid Reflux N Heart Disease N Gynecological History Statement/Question Response Irregular periods N Leaking urine with intercourse N Hormone Therapy N Heavy periods N Pain with intercourse N Sexually Active? N Obstetrics History GPAL:G 1 P 0 0 0 1 Type Value Living 1 Total 1 Immunizations Vaccine Type Date Status Provider Name and Address Organization Details Recorded Time [facility]oster recombinant [facility] 14:32:34 zoster recombinant 07/18/2019 [facility] 14:32:34 influenza, high-dose, quadrivalent 08/11/2020 [facility] 14:32:34 COVID-19, mRNA, LNP-S, PF, 30 mcg/0.3 mL dose 01/06/2021 [facility] 14:32:34 COVID-19, mRNA, LNP-S, PF, 30 mcg/0.3 mL dose 01/27/2021 completed Berna ramírez [facility] 06/28/2023 14:32:35 COVID-19, mRNA, LNP-S, PF, 30 mcg/0.3 mL dose 07/22/2021 completed Berna ramírez [facility] 06/28/2023 14:32:35 pneumococcal polysaccharide PPV23 02/26/2012 [facility] 14:32:35 Tdap 03/29/2011 [facility] 14:32:35 Pneumococcal conjugate PCV 13 02/27/2015 [facility] 14:32:35 Influenza, high dose seasonal 06/28/2017 completed Berna ramírez [facility] 06/28/2023 14:32:35 Influenza, high dose seasonal 09/06/2019 completed Berna ramírez [facility] 06/28/2023 14:32:35 Td (adult), 2 Lf tetanus toxoid, preservative free, adsorbed 03/13/2001 completed Berna ramírez [facility] 06/28/2023 14:32:35 Td (adult), 2 Lf tetanus toxoid, preservative free, adsorbed 08/20/2021 completed Berna ramírez [facility] 06/28/2023 14:32:35 influenza, injectable, quadrivalent, preservative free 08/21/2020 completed Berna ramírez [facility] 06/28/2023 14:32:35 influenza, injectable, quadrivalent, preservative free 09/27/2018 completed Berna ramírez [facility] [facility] 06/28/2023 14:32:35 pneumococcal polysaccharide PPV23 02/27/2015 completed Berna ramírez [facility] 06/28/2023 14:32:35 Past Encounters Encounter ID Performer Location Encounter Start Date Encounter Closed Date Diagnosis/Indication [id number] MD Arlette [place] [address] 10/07/2020 11:05:48 10/07/2020 12:23:23 Kidney stone [id number] MD Arlette Giraldo [address] [place] [address] 09/22/2021 14:50:46 09/24/2021 13:46:24 Kidney stone [id number] MD Arlette Giraldo [address] [place] [address] 07/06/2022 15:34:20 07/16/2022 10:54:17 Kidney stone [id number] MD Arlette Giraldo [address] [place] [address] 06/28/2023 14:15:49 06/30/2023 16:26:29 Kidney stone Health Concerns Section Related Observation LastModified by Organization Detai ls LastModified Time None Recorded Concern Status LastModified by Organization Details LastModified Time None Recorded Advance Directives Directive None Recorded Payers Encounter Date Sequence Insurance Name Policy Number Policy Cutler Covered Member ID Cutler Member ID Guarantor Name 06/28/2023 1 [place] [id number] Shahnaz Guevaraofield [id number] Shahnaz Landers [place] 07/06/2022 1 [id number] [id number] Shahnaz Landers [place] [id number] Shahnaz Landers [place] 09/22/2021 1 [employer] (MEDICARE REPLACEMENT/ ADVANTAGE - HMO) Shahnaz Landers [place] [id number] Shahnaz Landers [place] Notes Date Note Type Note Provider Name and Address Organization Details Recorded Time 10/07/2020 text/html HPI Notes: s/p right ESWL on 03/28/19 for 8 mm upper pole stone and a number of stones in the low pole. H/o Carcinoid She takes HCTZ 25 mg Q day for stone prevention. TOday's KUB showed no left stones; difficult to see her right kidney. She is scheduled for CT at [place] next week. She denies any voiding symptoms/no gross hhematuria. Jared Jackson MD [address] [place] [address],[address], [address], [facility] 10/09/2020 20:28:46 09/22/2021 text/html HPI Notes: s/p right ESWL on 03/28/19 for 8 mm upper pole stone and a number of stones in the low pole. H/o Carcinoid New diagnosis of breast CA 10/2020. s/p chemo/XER CT 10/2020 showed small stones 5 and 6 mm in her kidneys. KUB is normal today. She takes HCTZ 25 mg Q day for stone prevention. She denies any voiding symptoms/no gross hematuria. NO CVA tenderenss. Jared Jackson MD [address] [place] [address],[address], [place], [address], [facility] 09/22/2021 15:31:33 07/06/2022 text/html HPI Notes: 76 yo female who presents for evaluation of nephrolithiasis. s/p right ESWL on 03/28/19 for 8 mm upper pole stone and a number of stones in the low pole. CT 10/2020 showed small stones 5 and 6 mm in her kidneys KUB 09/27 was without evidence of nephrolithiasis. Renal US 12/15/2021 showed evidence of bilateral renal calculi with at least 5 stones on the left measuring up to 9 mm and 2 stones on the right measuring up to 7 mm. No hydro noted. She takes HCTZ 25 mg Q day for stone prevention. 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 Jared Jackson MD [address] [place] [address],[address], [address], [facility] [place] [facility] 07/06/2022 16:25:32 06/28/2023 text/html HPI Notes: 77 yo female here for annual f/u regarding kidney stones PSHx: s/p right ESWL on 03/28/19 for 8 mm upper pole stone and a number of stones in the low pole. Imaging: - CT 07/06/22 showed a couple of small under 5 mm stones in the right kidneys; no left kidney stones (same stones as in 2019 ) - CT 10/2020 showed small stones 5 and 6 mm in her kidneys - KUB 09/27 was without evidence of nephrolithiasis. - Renal US 12/15/2021 showed evidence of bilateral renal calculi with at least 5 stones on the left measuring up to 9 mm and 2 stones on the right measuring up to 7 mm. No hydro noted. She takes HCTZ 25 mg Q day for stone prevention. 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 pH is 7.0. recent imaging not through [facility]; no access to imaging report. Jared Jackson MD [address] [place] [address],SU[facility], [place], [address], [facility] 06/28/2023 15:29:14 OBGyn Episode No OBEpisode recorded.
--- OUTSIDE RECORDS SUMMARY | 2023-12-05 12:56 | XMS_ITS | Encounter Summary ---
Author Name Unknown Organization [place] Address [address] [place] [address] Care Team Providers Care Sheet Rock Taper Name Role Phone Liudmila David MD Primary Care Provider Unav Edgar Schultz MD Unavailable [phone] Liudmila David MD Unavailable UnavailBruna Giles Unavailable [phone] Liudmila David MD Unavailable UnavailBruna Giles Unavailable [phone] Heidy Mesa MD Primary Care Provider Encounter Details Date Type Department Care Team (Late st Contact Info) Description 05/28/2014 Orders Only [address] [id number] Social History Tobacco Use Types Packs/Day Years Used Date Smoking Tobacco: Former Cigarettes Q uit: 11/07/1995 Smokeless Tobacco: Never Alcohol Use Standard Drinks/Week Comments Yes 0 (1 standard drink = 0.6 oz pur e alcohol) rare Sex and Gender Information Value Date Recorded Sex Assigned at Female 10/17/2018 7:14 PM IV THERAPY NURSE Gender Identity Female 10/17/2018 7:14 PM IV THERAPY NURSE Sexual Orientation Straight 10/17/2018 7: 14 PM IV THERAPY NURSE documented as of this encounter Plan of Treatment Not on file documented as of this encounter Visit Diagnoses Not on filedocumented in this encounter Care Teams Sheet Rock Taper Relationship Specialty Start Date End Date Liudmial David MD PCP - General Family Practice 02/12/14 10/06/20 [place] [address] [place] [address] PCP - Assigned PCP 12/31/18 01/09/19 Heidy Mesa MD [address] [address] PCP - General Internal Medicine 10/07/20 Liudmila David MD NO INFO AVAILABLE 06/02/23 Assigned PCP 10/12/15 02/02/20 Bruna Meade PA [facility] [address] [place] [address] MAYRA HENNESSY [address] Assigned PCP 02/03/20 03/01/20 Liudmila David MD NO INFO AVAILABLE 06/02/23 Assigned PCP 03/02/20 04/19/20 Bruna Meade PA [facility] [address] [place] [address] MAY[place] HENNESSY [address] Assigned PCP 04/20/20 06/11/22 documented as of this encounter
--- OUTSIDE RECORDS SUMMARY | 2023-12-05 12:56 | XMS_ITS | Encounter Summary ---
Author Name Unknown Organization [place] Address [address] [place] [address] Care Team Providers Care Joss House Keeper Name Role Phone Liudmila David MD Primary Care Provider Unav Edgar Schultz MD Unavailable [phone] Liudmila David MD Unavailable UnavailBruna Giles Unavailable [phone] Liudmila David MD Unavailable UnavailBruna Giles Unavailable [phone] Heidy Mesa MD Primary Care Provider [phone] Reason for Visit * Reason Comments Medication Refill Encounter Details Date Type Department Care Team (Late st Contact Info) Description 03/03/2014 Refill [facility] [address] [place] [address] [address] [place] [phone] Liudmila David MD NO INFO AVAILABLE 06/02/23 Medication Refill Social History Tobacco Use Types Packs/Day Years Used Date Smoking Tobacco: Former Cigarettes Q uit: 11/07/1995 Smokeless Tobacco: Never Alcohol Use Standard Drinks/Week Comments Yes 0 (1 standard drink = 0.6 oz pur e alcohol) rare Sex and Gender Information Value Date Recorded Sex Assigned at Female 10/17/2018 7:14 PM BUCKLE FRAME SHAPER Gender Identity Female 10/17/2018 7:14 PM BUCKLE FRAME SHAPER Sexual Orientation Straight 10/17/2018 7: 14 PM BUCKLE FRAME SHAPER documented as of this encounter Miscellaneous Notes * Telephone Encounter - Leora Regalado J - 03/04/2014 7:56 AM CDT Pending Prescriptions: Disp Refills hydrochlorothiazide (HYDRODIURIL) 25 MG t*30 tab*0 Sig: TAKE ONE TABLET BY MOUTH EVERY DAY Please close encounter if Rx is faxed to pharmacy. Thanks Leora documented in this encounter Plan of Treatment Not on file documented as of this encounter Visit Diagnoses Diagnosis Essential hypertension, benign- Primary documented in this encounter Care Teams Joss House Keeper Relationship Specialty Start Date End Date Liudmila David MD PCP - General Family Practice 02/12/14 10/06/20 [place] [address] [facility] [place] [address] PCP - Assigned PCP 12/31/18 01/09/19 Heidy Mesa MD [address] [address] PCP - General Internal Medicine 10/07/20 Liudmila David MD NO INFO AVAILABLE 06/02/23 Assigned PCP 10/12/15 02/02/20 Bruna Meade PA [facility] [address] [place] [address] MAYRA HENNESSY [address] Assigned PCP 02/03/20 03/01/20 Liudmila David MD NO INFO AVAILABLE 06/02/23 Assigned PCP 03/02/20 04/19/20 Bruna Meade PA [facility] [place] HENNESSY [address] Assigned PCP 04/20/20 06/11/22 documented as of this encounter
--- OUTSIDE RECORDS SUMMARY | 2023-12-05 12:56 | XMS_ITS | Encounter Summary ---
Author Name Unknown Organization [place] Address [address] [place] [address] Care Team Providers Care Canvas Products Sales Representative Name Role Phone Liudmila David MD Primary Care Provider Unav ailable Liudmila David MD Unavailable Bruna Hernandez Unavailable [phone] Liudmila David MD Unavailable UnavailBruna Giles Unavailable [phone] Heidy Mesa MD Primary Care Provider [phone] Encounter Details Date Type Department Care Team (Late st Contact Info) Description 03/20/2019 MyC Medical Advice [facility] [address] [place] [address] Liudmila David MD NO INFO AVAILABLE 06/02/23 Social History Tobacco Use Types Packs/Day Years Used Date Smoking Tobacco: Former Cigarettes 0.5 15 Q uit: 11/07/1995 Smokeless Tobacco: Never Alcohol Use Standard Drinks/Week Comments Yes 0 (1 standard drink = 0.6 oz pur e alcohol) Once per week PHQ-2 Answer Date Recorded PHQ-2 Score 0 02/07/2019 Sex and Gender Information Value Date Recorded Sex Assigned at Female 10/17/2018 7:14 PM TRUST OPERATIONS ASSISTANT Gender Identity Female 10/17/2018 7:14 PM TRUST OPERATIONS ASSISTANT Sexual Orientation Straight 10/17/2018 7: 14 PM TRUST OPERATIONS ASSISTANT documented as of this encounter Miscellaneous Notes * Telephone Encounter - Sruthi Mauricio MA - 03/22/2019 7:13 AM CDTFrom: Liudmila David MD To: Shahnaz Phelps Sent: 03/20/2019 8:38 AM CDT Subject: preop instructions LAST DOSE OF LOSARTAN is the morning of 03/27/2019 (do not take the morning of surgery) OK to take Hydrochlorothiazide with a sip of water on the morning of surgery Please reply that you have received this message Liudmila David M.D. documented in this encounter Plan of Treatment Not on file documented as of this encounter Visit Diagnoses Not on filedocumented in this encounter Care Teams Canvas Products Sales Representative Relationship Specialty Start Date End Date Liudmila David MD PCP - General Family Practice 02/12/14 10/06/20 Heidy Mesa MD [address] [address] PCP - General Internal Medicine 10/07/20 Liudmila David MD NO INFO AVAILABLE 06/02/23 Assigned PCP 10/12/15 02/02/20 Bruna Meade PA [facility] [address] [place] [address] MAYRA HENNESSY [address] Assigned PCP 02/03/20 03/01/20 Liudmila David MD NO INFO AVAILABLE 06/02/23 Assigned PCP 03/02/20 04/19/20 Bruna Meade PA [facility] [address] [place] [address] Assigned PCP 04/20/20 06/11/22 documented as of this encounter
--- OUTSIDE RECORDS SUMMARY | 2023-12-05 12:56 | XMS_ITS | Clinical Summary ---
Author Name Unknown Organization [place] Address [address] [place] [address] Care Team Providers Care Monotype Setter Name Role Phone Heidy Mesa MD Primary Care Provider Allergies Active Allergy Reactions Criticality Noted Date [...] State Tier Level: Tier 2 Status: n/a Neurology Tech: See Letters for [facility] Care Plan Calculus of kidney 03/28/2012 ACP [...] (Boostrix) 03/29/2011 Zoster recombinant adjuvanted (SHINGRIX) 019,02/12/2019 Family History Medical History Relation Comments Colon [...] Sex Assigned at Female 10/17/2018 7:14 PM THERAPIST RADIATION Gender Identity Female 10/17/2018 7:14 PM THERAPIST RADIATION Sexual Orientation Straight 10/17/2018 7: 14 PM THERAPIST RADIATION Last Filed Vital Signs Vital Sign Reading [...] OF HM ORDERS 1945 CT COLONOGRAPHY 1945 FIT 1945 FLEX SIG 1945 sDNA (Cologuard) 1945 COVID-19 Vaccine (#1) 03/06/1946 LUNG CANCER SCREENING 1995 RSV VACCINE ( & 60+) (1 - 1-dose 60+ series) 2005 MAMMO SCREENING 01/25/2020 01/24/2019, 01/05, 01/31/2017, Additional history exists FALL RISK ASSESSMENT 02/08/2020 02/07/2019, 04/06/2018, 05/27/2016, Additional history exists MEDICARE ANNUAL WELLNESS VISIT 02/08/2020 02/07/2019, 02/13/2018, 02/10/2017, Additional history exists ADVANCE CARE PLANNING 02/17/2021 02/18/2016 , 03/18/2014, 02/26/2012 DTAP/TDAP/TD IMMUNIZATION (2 - Td or Tdap) 03/29/2021 03/29/2011, 03/13/2001, 12/08/1990 LIPID 02/10/2022 02/10/2017, 03/07, 02/12/2013, Additional history exists INFLUENZA VACCINE (#1) 2023 8, 06/28/2017, 08/27/1998 COLONOSCOPY 10/25/2023 10/25/2018, 10/07, 10/20/2015, Additional history exists COLORECTAL CANCER SCREENING 10/25/2023 PHQ-2 (once per calendar year) 2023 02/07/2019, 02/13/2018, 02/18/2016 DEXA 02/13/2028 02/12/2013, 04/08/2003 HEPATITIS C SCREENING Completed 02/27/2015 Pneumococcal Vaccine: 65+ Years Completed 02/27/2015, 02/26/2012 ZOSTER IMMUNIZATION Completed 07/19/2019, 9 HPV IMMUNIZATION Aged Out No longer e ligible based on patient's age to complete this topic IPV IMMUNIZATION Aged Out No longer e ligible based on patient's age to complete this topic MENINGITIS IMMUNIZATION Aged Out No l onger eligible based on patient's age to complete this topic RSV MONOCLONAL ANTIBODY Aged Out No l onger eligible based on patient's age to complete this topic Medical Devices Implanted Type Area Accounts Payable Bookkeeper Device Identifier Shelf Expiration Date Model / Serial / Lot Stent Ureteral Contour Soft Percuflex [id number] Implanted:Qty : 1 on 03/28/2019 by Jared Jackson MD at [facility] Stent Right: Ureter [employer] 11/26/2021 [id number] / / [id number] Stent Ureteral Dbl Pigtail Inlay [id number] Implanted:Qty : 1 on 06/08/2012 by Jared Jackson MD at [facility] Right: Ureter 03/08/2017 [id number] / / [id number] M[address] Hernia 3.1x4.7 Oval Sm [id number] Implanted:Qty : 1 on 05/02/2015 by Cheikh Barcenas MD at [facility] N/A: Abdomen CR [employer] 01/04/2017 [id number] / / [id number] Explanted Type Area Accounts Payable Bookkeeper Device Identifier Shelf Expiration Date Model / Serial / Lot Stent Ureteral Contour Soft Percuflex [id number] Explanted:Qty: 1 on 03/28/2019 by Jared Jackson MD at [facility] Stent Right: Ureter [employer] 11/19/2021 [id number] / / [id number] Advance Directives For more information, please contact: [phone] Documents on File Type Date Recorded Patient Conveyor Technician Expl anation Advance Directives and Livin shereen Will 02/07/2019 9:34 AM Power of Wreath And Garland Maker 02/07/2019 9:34 AM Latest Code Status on File Code Status Date Activated Date Inactivated Comments Full Code 08/03/2014 9:14 AM 10/25/2018 6:31 AM Code Status History Code Status Date Activated Date Inactivated Comments Full Code 07/31/2014 3:56 PM 08/03/2014 9:14 AM Care Teams Monotype Setter Relationship Specialty Start Date End Date Heidy Mesa MD [facility] [place] [id number] PCP - General Internal Medicine 10/07/20
--- OUTSIDE RECORDS SUMMARY | 2023-12-05 12:56 | XMS_ITS | Encounter Summary ---
Author Name Unknown Organization [facility] Address [address] [place] [address] Care Team Providers Care Mission Commander Name Role Phone Liudmila David MD Primary Care Provider Unav ailable Liudmila David MD Unavailable Bruna Hernandez Unavailable [phone] Liudmila David MD Unavailable UnavailBruna Giles Unavailable [phone] Heidy Mesa MD Primary Care Provider Encounter Details Date Type Department Care Team (Late st Contact Info) Description 07/27/2019 MyC Medical Advice [facility] [address] [place] [address] Liudmila David MD NO INFO AVAILABLE 06/02/23 [...] Sex Assigned at Female 10/17/2018 7:14 PM APPEALS WRITER Gender Identity Female 10/17/2018 7:14 PM APPEALS WRITER Sexual Orientation Straight 10/17/2018 7: 14 PM APPEALS WRITER documented as of this encounter Plan of Treatment Not on file documented as of this encounter Visit Diagnoses Not on filedocumented in this encounter Care Teams Mission Commander Relationship Specialty Start Date End Date Liudmila David MD PCP - General Family Practice 02/12/14 10/06/20 Heidy Mesa MD [address] [address] PCP - General Internal Medicine 10/07/20 Liudmila David MD NO INFO AVAILABLE 06/02/23 Assigned PCP 10/12/15 02/02/20 Bruna Meade PA [facility] [address] [place] [address] Assigned PCP 02/03/20 03/01/20 Liudmila David MD NO INFO AVAILABLE 06/02/23 Assigned PCP 03/02/20 04/19/20 Bruna Meade PA [facility] [address] [place] [address] Assigned PCP 04/20/20 06/11/22 documented as of this encounter
--- OUTSIDE RECORDS SUMMARY | 2023-12-05 12:56 | XMS_ITS | Encounter Summary ---
Author Name Unknown Organization [place] Address [address] [place] [address] Care Team Providers Care Sap Specialist Name Role Phone Liudmila David MD Primary Care Provider Unav elizabethable Edgar Cunningham MD Unavailable [phone] Liudmila David MD Unavailable UnavailBruna Giles Unavailable [phone] Liudmila David MD Unavailable UnavailBruna Giles Unavailable [phone] Heidy Mesa MD Primary Care Provider [phone] Encounter Details Date Type Department Care Team (Late st Contact Info) Description 06/27/2017 MyC Medical Advice [facility] [address] [place] [phone] Liudmila David MD NO INFO AVAILABLE 06/02/23 Social History Tobacco Use Types Packs/Day Years Used Date Smoking Tobacco: Former Cigarettes 0.5 15 Q uit: 11/07/1995 Smokeless Tobacco: Never Alcohol Use Standard Drinks/Week Comments Yes 0 (1 standard drink = 0.6 oz pur e alcohol) rare - wine once in a while Sex and Gender Information Value Date Recorded Sex Assigned at Female 10/17/2018 7:14 PM MANAGER CALL CENTER Gender Identity Female 10/17/2018 7:14 PM MANAGER CALL CENTER Sexual Orientation Straight 10/17/2018 7: 14 PM MANAGER CALL CENTER documented as of this encounter Plan of Treatment Not on file documented as of this encounter Visit Diagnoses Not on filedocumented in this encounter Care Teams Sap Specialist Relationship Specialty Start Date End Date Liudmila David MD PCP - General Family Practice 02/12/14 10/06/20 [place] [address] [place] [address] PCP - Assigned PCP 12/31/18 01/09/19 Heidy Mesa MD [address] [address] PCP - General Internal Medicine 10/07/20 Liudmila David MD NO INFO AVAILABLE 06/02/23 Assigned PCP 10/12/15 02/02/20 Bruna Meade PA [facility] [address] [place] [address] MAYRA HENNESSY [address] Assigned PCP 02/03/20 03/01/20 Liudmila David MD NO INFO AVAILABLE 06/02/23 Assigned PCP 03/02/20 04/19/20 Bruna Meade PA [facility] [address] [place] [address] MAYRA HENNESSY [address] Assigned PCP 04/20/20 06/11/22 documented as of this encounter
--- NOTE | 2023-12-05 13:00 | CRLHL7_ITS ---
For Patients: As a result of the Century Cures Act, medical imaging exams and procedure reports are released immediately into your electronic medical record. You may view this report before your referring provider. If you have questions, please contact your health care provider. BILATERAL SCREENING MAMMOGRAM WITH COMPUTER-AIDED DETECTION AND TOMOSYNTHESIS TECHNIQUE: CC and MLO views were obtained. These mammographic images have been obtained using full-field digital technique. These mammographic images were interpreted with the benefit of computer-aided detection. Breast Tomosynthesis was used in this interpretation. COMPARISON FILM: 12/02/22, 11/20/21, 10/17/20. FINDINGS: There are scattered areas of fibroglandular density. IMPRESSION: There is no radiographic evidence for malignancy. ASSESSMENT: BI-RADS Category 2: Benign RECOMMENDATION: Routine screening mammogram in 1 year. A lay language report of this examination will be provided to the patient. Jeanmarie Davila M.D. Diagnostic Radiologist [email or web address] SP/Dictated by: Jeanmarie Davila MD @ 12/06/2023 11:26:00 AM (Electronically Signed)
== END 2023-12-05 12:54 | disposition home or self-care (01) ==
LOC: MAMMO 12:53
PROVIDERS: PCP Internal Medicine; Visit Provider Internal Medicine
DX: Z12.31 Encounter for screening mammogram for malignant neoplasm of breast (principal)
CPT/HCPCS: 77063; 77067

== ENCOUNTER 2023-12-08 12:34 | Outpatient (RCR) | payer MEDICARE, SELFPAY ==
[2023-12-08 12:51] LABS: Basophils Absolute Auto 0.04 K/uL (0.00-0.30); Basophils Percent Auto 0.7 % (0.0-3.0); Eosinophils Absolute Auto 0.07 K/uL (0.00-0.50); Eosinophils Percent Auto 1.3 % (0.0-7.0); Hematocrit 39.3 % (33.0-51.0); Immature Granulocytes Abs Auto 0.01 K/uL (0.00-0.30); Immature Granulocytes Pct Auto 0.2 %; Lymphocytes Absolute Auto 1.39 K/uL (0.90-2.90); Lymphocytes Percent Auto 25.7 % (20-44); Mean Corpuscular HGB Conc 33 gm/dL (32-36); Mean Corpuscular Hemoglobin 32 pg (26-34); Mean Corpuscular Volume 96 fL (80-100); Monocytes Percent Auto 14.6 % (0.0-11.0); Neutrophils Percent Auto 57.5 % (42.0-72.0); Platelet Count* 213 K/uL (140-440); RDW Coefficient of Variation % 12.8 % (11.5-15.5)
[2023-12-08 12:55] LABS: Slide Review Reflex No
[2023-12-08 13:03] LABS: Albumin* 4.4 g/dL (3.3-5.0); Chloride* 102 mmol/L (96-114)
[2023-12-08 13:04] LABS: Potassium* 4.2 mmol/L (3.6-5.1); Sodium* 139 mmol/L (135-149)
[2023-12-08 13:06] LABS: Anion Gap 6 mEq/L (7-15); Aspartate Amino Transferase* 30 U/L (12-35); Bilirubin Total* 0.9 mg/dL (0.1-1.5); Carbon Dioxide* 31 mmol/L (20-32); Creatinine* 0.7 mg/dL (0.5-1.5); Estimated Glomerular Filt Rate 88 ml/min; Total Protein* 7.1 g/dL (6.0-8.3)
[2023-12-08 13:07] LABS: Alanine Aminotransferase* 23 U/L (4-35); Alkaline Phosphatase* 76 U/L (40-150); Blood Urea Nitrogen* 25 mg/dL (7-30); Calcium* 9.6 mg/dL (8.4-10.6); Glucose* 111 mg/dL (60-115)
--- NOTE | 2024-03-26 09:16 | ONC.NURNOTE ---
Jina is requesting to speak to Devorah re her Neurophy medication, Neurontin. She is requesting a call form Devorah kang. 03/01. at her home [phone].
== END 2024-06-05 23:59 | disposition home or self-care (01) ==
LOC: CCIC 12:34
PROVIDERS: PCP Internal Medicine; Visit Provider Physician Assistant
DX: C50.911 Malignant neoplasm of unspecified site of right female breast (principal); Z17.1 Estrogen receptor negative status [ER-]; C7A.029 Malignant carcinoid tumor of the large intestine, unspecified portion; G62.0 Drug-induced polyneuropathy; T45.1X5A Adverse effect of antineoplastic and immunosuppressive drugs, initial encounter; Z80.0 Family history of malignant neoplasm of digestive organs
CPT/HCPCS: 36415; 80053; 85025; 99214; G0463

== ENCOUNTER 2024-05-30 10:29 | Outpatient (CLI) | payer MEDICARE, SELFPAY ==
--- OUTSIDE RECORDS SUMMARY | 2024-05-30 10:31 | XMS_ITS | Data Portability ---
Author Organization [place] [facility], [place] Address [address] [place] [address] Assessment No assessment recorded. Plan of Treatment Reminders Order Date Submit Date Provider Last Modified By Organization Details Last Modified Time Details Appointments None record ed. Lab None record ed. Referral None record ed. Procedures None record ed. Surgeries None record ed. Imaging None record ed. Medication Orders None record ed. Patient TargetsNo targets recorded. Patient InstructionsNo instructions recorded. Reason for Referral None Reported. Medical Equipment None Reported. Medications Name Sig Start Date Stop Date Status Note LastModified by Organization Details LastModified Time clindamycin HCl 300 mg capsule TAKE 1 CAPSULE BY MOUTH THREE TIMES DAILY FOR 5 DAYS active Not Available Not Available N ot Available hydrocodone 5 mg-acetamino phen 325 mg tablet TAKE 1 TABLET BY MOUTH EVERY 4 TO 6 HOURS NEEDED FOR PAIN active Not Available Not Available No t Available ketorolac 10 mg tablet TAKE 1 TABLET BY MOUTH EVERY 8 HOURS FOR 5 DAYS active Not Available Not Available No t Available cephalexin 500 mg capsule TAKE FOUR CAPSULES BY MOUTH ONE HOUR BEFORE APPOINTMENT active Not Available Not Available Not Available hydrochlorot hiazide 25 mg tablet TAKE 1 TABLET BY MOUTH ONCE DAILY active Not Available Not Available No t Available gabapentin 100 mg capsule TAKE 3 CAPSULES BY MOUTH AT BEDTIME active Not Available Not Available No t Available ibuprofen 600 mg tablet TAKE 1 TABLET BY MOUTH EVERY 6 HOURS NEEDED active Not Available Not Available No t Available methylpredni solone 4 mg tablets in a dose pack TAKE BY MOUTH DIRECTED ON INSIDE OF PACKAGE active Not Available Not Available No t Available losartan 100 mg tablet TAKE 1 TABLET BY MOUTH ONCE DAILY active Not Available Not Available No t Available chlorhexidin e gluconate 0.12 % mouthwash RINSE MOUTH WITH 15 ML (1 CAPFUL) FOR 30 SECONDS IN THE MORNING AND EVENING AFTER TOOTHBRUSHI NG EXPECTORATE AFTER RINSING DO NOT SWALLOW active Not Available Not Available Not Available Vitals None Recorded Social History None recorded. Functional Status None recorded. Mental Status None recorded. Family History Nothing Reported. Medical History No medical history recorded. Gynecological HistoryNo gynecological history recorded. Obstetrics History GPAL:G 0 P 0 0 0 0 Past Encounters Encounter ID Performer Location Encounter Start Date Encounter Closed Date Diagnosis/Indication Diagnosis SNOMED-CT Code [id number] Edd Easley PA-C [place] [address] [place] [address] 12/20/2023 13:55:02 12/22/2023 13:17:50 Pain co-occurrent and due to varicose veins of bilateral legs [id number] 9100 Health Concerns Section Related Observation LastModified by Organization Detai ls LastModified Time None Recorded Concern Status LastModified by Organization Details LastModified Time None Recorded Advance Directives Directive None Recorded Payers Encounter Date Sequence Insurance Name Policy Number Policy Cutler Covered Member ID Cutler Member ID Guarantor Name 12/20/2023 1 [facility] ([place]PL[place]) [id number] Shahnaz Phelps [id number] Shahnaz Phelps Notes Date Note Type Note Provider Name and Address Organization Details Recorded Time 12/20/2023 text/html HPI Notes: Neda nt presents with venous insufficiency symptoms including burning, itching, cramping, restlessness. Patient has had prior vein treatment bilaterally including stripping, ablation, sclerotherapy. Edd Easley PA-C [address] [place], [address], [place] [facility] 12/20/2023 14:59:35 OBGyn Episode No OBEpisode recorded.
--- OUTSIDE RECORDS SUMMARY | 2024-05-30 10:32 | XMS_ITS | Encounter Summary ---
Author Organization [place] Address [address] [place] [address] Care Team Providers Care Mri Specialist Name Role Phone Liudmila David MD Primary Care Provider Unav ailable Liudmila David MD Unavailable Bruna Hernandez PA-C Unavailable Liudmila David MD Unavailable UnavailBruna Giles PA-C Unavailable Heidy Mesa MD Primary Care Provider Encounter Details Date Type Department Care Team (Late st Contact Info) Description 07/27/2019 MyC Medical Advice [facility] [address] [place] [address] Liudmila David MD NO INFO AVAILABLE 06/02/23 Social History Tobacco Use Types Packs/Day Years Used Date Smoking Tobacco: Former Cigarettes 0.5 15 0 11/07/1980 - 11/07/1995 Smokeless Tobacco: Never Alcohol Use Standard Drinks/Week Comments Yes 0 (1 standard drink = 0.6 oz pur e alcohol) rarely PHQ-2 Answer Date Recorded PHQ-2 Score 0 02/07/2019 Sex and Gender Information Value Date Recorded Sex Assigned at Female 10/17/2018 7:14 PM FINANCE [employer]ER Gender Identity Female 10/17/2018 7:14 PM FINANCE LECTURER Sexual Orientation Straight 10/17/2018 7: 14 PM FINANCE LECTURER documented as of this encounter Plan of Treatment Not on file documented as of this encounter Visit Diagnoses Not on filedocumented in this encounter Care Teams Mri Specialist Relationship Specialty Start Date End Date Liudmila David MD PCP - General Family Practice 02/12/14 10/06/20 Heidy Mesa MD [address] [address] PCP - General Internal Medicine 10/07/20 Liudmila David MD NO INFO AVAILABLE 06/02/23 Assigned PCP 10/12/15 02/02/20 Bruna Meade PA-C [facility] [id number], [facility] [address] [place], [place] [address] Assigned PCP 02/03/20 03/01/20 Liudmila David MD NO INFO AVAILABLE 06/02/23 Assigned PCP 03/02/20 04/19/20 Bruna Meade PA-C [facility] [address], [facility] [address] [place] [address] Assigned PCP 04/20/20 06/11/22 documented as of this encounter
--- OUTSIDE RECORDS SUMMARY | 2024-05-30 10:32 | XMS_ITS | Data Portability ---
Author Organization [place] - [facility] Address [address] [place] [address] Care Team Providers Care Veneer Taping Machine Operator Name Role Phone DEUCE BANKS Primary Care Provider [phone] Assessment No assessment recorded. Plan of Treatment Reminders Order Date Submit Date Provider Last Modified By Organization Details Last Modified Time Details Appointments ESTABLI SHED 10 2023 01:20P M Jared Jackson MD Not available Not available Not available Lab urinaly sis, dipstic k 2019 020 [email or web address] Not available 10/07/2020 11:54:39 urinaly sis, dipstic k 2020 021 [email or web address] Not available 09/22/2021 15:00:38 urinaly sis, dipstic k 2021 022 [email or web address] [facility], [address], [place], [address], 07/06/2022 16:13:45 urinaly sis, dipstic k 2022 023 [email or web address] [facility], [address], [place], [address], 06/28/2023 14:54:01 Referral None recorde d. Procedures None recorde d. Surgeries None recorde d. Imaging US, renal - bilater al renal ultraso und 2020 021 [email or web address] Not available 10/06/2021 10:27:21 US, renal 2022 023 [facility], [address], [address], [place], [address], 04/18/2024 12:46:10 Medication Orders None recorde d. Patient TargetsNo targets recorded. Patient InstructionsNo instructions recorded. Reason for Referral None Reported. Results Created Date Observation Date Name Description Value Unit Range Abnormal Flag LastModifiedBy Organization Detail LastModifiedTime 10/07/2020 urina lysis , dipst ick Ketones-Stat us 5 Not Available [facility] [address], [place], [address], 10/07/2020 11:52:43 10/07/2020 urina lysis , dipst ick pH-Status 7.5 Not Available [facility] [address], [place], [address], 10/07/2020 11:52:43 10/07/2020 urina lysis , dipst ick Nitrates-Sta tus negati ve Not Available [facility] [address], [place], [address], 10/07/2020 11:52:43 10/07/2020 urina lysis , dipst ick Blood-Status Negati ve Not Available [facility] [address], [place], [address], 10/07/2020 11:52:43 10/07/2020 urina lysis , dipst ick Leuko-Status Trace Not Available [facility] [address], [place], [address], 10/07/2020 11:52:43 09/22/20 21 09/22/2021 urina lysis , dipst ick pH-Status 7.0 Not Available [facility] [address], [place], [address], 09/22/2021 14:59:13 07/06/20 22 07/06/2022 urina lysis , dipst ick Color-Status Yellow Not Available [facility] [address], [place], [address], 07/06/2022 16:12:49 07/06/20 22 07/06/2022 urina lysis , dipst ick Clarity-Stat us Clear Not Available [facility] [address], [place], [address], 07/06/2022 16:12:49 07/06/20 22 07/06/2022 urina lysis , dipst ick Glucose-Stat us Negati ve Not Available [facility] [address], [place], [address], 07/06/2022 16:12:49 07/06/20 22 07/06/2022 urina lysis , dipst ick Bilirubin-St atus Negati ve Not Available [facility] [address], [place], [address], 07/06/2022 16:12:49 07/06/20 22 07/06/2022 urina lysis , dipst ick Ketones-Stat us Negati ve Not Available [facility] [address], [place], [address], 07/06/2022 16:12:49 07/06/20 22 07/06/2022 urina lysis , dipst ick Sp Spearfish-Stat us 1.015 Not Available [facility] [address], [place], [address], 07/06/2022 16:12:49 07/06/20 22 07/06/2022 urina lysis , dipst ick pH-Status 7.0 Not Available [facility] [address], [place], [address], 07/06/2022 16:12:49 07/06/20 22 07/06/2022 urina lysis , dipst ick Urobilinogen -Status 0.2 Not Available [facility] [address], [place], [address], 07/06/2022 16:12:49 07/06/20 22 07/06/2022 urina lysis , dipst ick Nitrates-Sta tus negati ve Not Available [facility] [address], [place], [address], 07/06/2022 16:12:49 07/06/20 22 07/06/2022 urina lysis , dipst ick Blood-Status Trace Not Available [facility] [address], [place], [address], 07/06/2022 16:12:49 07/06/20 22 07/06/2022 urina lysis , dipst ick Leuko-Status Trace Not Available [facility] [address], [place], [address], 07/06/2022 16:12:49 07/06/20 22 07/06/2022 urina lysis , dipst ick Specimen Type Voided Not Available [facility] [address], [place], [address], 07/06/2022 16:12:49 07/06/20 22 07/06/2022 urina lysis , dipst ick Performed by Berna Betancourt RN Not Available [facility] [address], [place], [address], 07/06/2022 16:12:49 07/06/20 22 07/06/2022 urina lysis , dipst ick Total Urine Volume 20cc Not Available [facility] [address], [place], [address], 07/06/2022 16:12:49 06/28/20 23 06/28/2023 urina lysis , dipst ick Color-Status Yellow Not Available [facility] [address], [place], [address], 06/28/2023 14:35:35 06/28/20 23 06/28/2023 urina lysis , dipst ick Clarity-Stat us Clear Not Available [facility] [address], [place], [address], 06/28/2023 14:35:35 06/28/20 23 06/28/2023 urina lysis , dipst ick Glucose-Stat us Negati ve Not Available [facility] [address], [place], [address], 06/28/2023 14:35:35 06/28/20 23 06/28/2023 urina lysis , dipst ick Bilirubin-St atus Negati ve Not Available [facility] [address], [place], [address], 06/28/2023 14:35:35 06/28/20 23 06/28/2023 urina lysis , dipst ick Ketones-Stat us Negati ve Not Available [facility] [address], [place], [address], 06/28/2023 14:35:35 06/28/20 23 06/28/2023 urina lysis , dipst ick Sp Spearfish-Stat us 1.025 Not Available [facility] [address], [place], [address], 06/28/2023 14:35:35 06/28/20 23 06/28/2023 urina lysis , dipst ick pH-Status 7.0 Not Available [facility] [address], [place], [address], 06/28/2023 14:35:35 06/28/20 23 06/28/2023 urina lysis , dipst ick Nitrates-Sta tus negati ve Not Available [facility] [address], [place], [address], 06/28/2023 14:35:35 06/28/20 23 06/28/2023 urina lysis , dipst ick Blood-Status Negati ve Not Available [facility] [address], [place], [address], 06/28/2023 14:35:35 06/28/20 23 06/28/2023 urina lysis , dipst ick Leuko-Status Small Not Available [facility] [address], [place], [address], 06/28/2023 14:35:35 06/28/20 23 06/28/2023 urina lysis , dipst ick Specimen Type Voided Not Available [facility] [address], [place], [address], 06/28/2023 14:35:35 10/08/20 20 10/07/2020 XR, kidne y + urete r + bladd er No observ ation record ed. [email or web address] Not Available 10/09/2020 15:13:55 10/16/20 20 10/16/2020 CT, chest + abdom en + pelvi s, w/ contr ast No observ ation record ed. [email or web address] [facility] [address], [place], [address], 10/17/2020 08:42:15 10/16/20 20 10/16/2020 CT, chest + abdom en + pelvi s, w/ contr ast No observ ation record ed. [email or web address] [facility] [address], [place], [address], 10/17/2020 08:42:03 09/23/20 21 09/22/2021 XR, kidne y + urete r + bladd er No observ ation record ed. [email or web address] [facility] [address], [place], [address], 09/24/2021 10:28:37 12/15/19 22 12/15/2021 US, kidne [...] onical ly interp reted by: DR. TANGELA gregg [facility] [address], [place], [address], 12/23/2021 15:42:59 07/07/20 22 07/06/2022 CT, abdom en + pelvi s, w/o contr ast No observ ation record ed. [email or web address] [facility] [address], [place], [address], 07/08/2022 16:11:49 12/20/19 24 12/20/2023 US, renal No observ ation record ed. constantino [facility] (Centralized Fax Number) [phone], [place], [address], 12/21/2023 14:27:49 Result Notes None recorded. Problems Name Status Onset Date Resolution Date Notes Provider Name and Address Organization Details Recorded Time Microscopic hematuria Active 012 599.72 : MICROSCOPIC HEMATURIA Not Available [facility] 0 01:57:44 Kidney stone Active 012 592.0 : CALCULUS-KIDN EY Not Available [facility] 0 01:57:44 Problem Notes None recorded. Procedures Surgical History None recorded. Imaging Results Imaging Date Name Status [facility]Modified by [facility] Details LastModified Time 10/07/2020 XR, kidney + ureter + bladder completed [email or web address] Information not available 10/09/2020 15:13:55 10/16/2020 CT, chest + abdomen + pelvis, w/ contrast completed [email or web address] [facility] [address], [place], [address], 10/17/2020 08:42:15 10/16/2020 CT, chest + abdomen + pelvis, w/ contrast completed [email or web address] [facility] [address], [place], [address], 10/17/2020 08:42:03 09/22/2021 XR, kidney + ureter + bladder completed [email or web address] [facility] [address], [place], [address], 09/24/2021 10:28:37 12/15/2021 [email or web address] [address], [place], [address], 12/23/2021 15:42:59 07/06/2022 CT, abdomen + pelvis, w/o contrast completed [email or web address] [facility] [address], [place], [address], 07/08/2022 16:11:49 12/20/2023 US, renal completed [address] (Centralized Fax Number) [phone], [place], [address], 12/21/2023 14:27:49 Procedure Notes None recorded. Medical Equipment None Reported. Allergies Allergen ID Allergen Name Allergen Category Reaction Reaction Severity Criticality Documentation Date Start Date Code Code System Note Provider Name and Address Organization Details Recorded Time 720230 Penicilli n Not available Not available Not available Not available 04/24/20202011 50405 RxNorm Not Available [facility] 0 00:48:41 090879 amoxicill in medicatio n Not available Not available Not available 06/28/2023 723 RxNorm Berna Betancourt [place], [place] - [facility] 3 14:32:52 Medications Name Sig Start [...] Updated DateTime 07/06/2022 168.91 cm 33.9 kg/m2 78646.17 g Dagmar Koroma [facility] 07/06/2022 16:09:44 Date Recorded Body height Body mass index (BMI) Body weight Provider Name and Address Organization Details Last Updated DateTime 06/28/2023 168.91 cm 34.3 kg/m2 81264.95 g Berna Betancourt [facility] 06/28/2023 14:32:27 Date Recorded Body height Body mass index (BMI) Body weight Provider Name and Address Organization Details Last Updated DateTime 10/07/2020 168.91 cm 33.9 kg/m2 76549.17 g Zahra Granados [facility] 10/07/2020 11:49:34 Date Recorded Body height Body mass index (BMI) Body weight Provider Name and Address Organization Details Last Updated DateTime 09/22/2021 168.91 cm 33.9 kg/m2 92387.17 g Sulaiman Singleton [facility] 09/22/2021 14:58:48 Social History Question Answer Notes LastModified by Organizat ion Details LastModified Time Tobacco Smoking Status Former Smoker Zahra Granados darrell [facility] 10/07/2020 11:51:54 What Is Your Level Of Alcohol Consumption? Occasional [email or web address] Information not available 10/07/2020 What Is Your Level Of Caffeine Consumption? Occasional [email or web address] Information not available 10/07/2020 How Much Tobacco Do You Chew? None [email or web address] Information not available 10/07/2020 Do You Or Have You Ever Used E-cigarettes Or Vape? Never Used Electronic Cigarettes [email or web address] Information not available 10/07/2020 When Did You Quit Smoking? 16+yearssincel astcigarette [email or web address] Information not available 10/07/2020 Recreational Drug Use No [email or web address] Information not available 10/07/2020 Marital Status [email or web address] Informati on not available 10/07/2020 What Was The Date Of Your Most Recent Tobacco Screening? 06/28/2023 [email or web address] Information not available 06/28/2023 Do You Or Have You Ever Used Smokeless Tobacco? Never Used Smokeless Tobacco [email or web address] Information not available 10/07/2020 How Much Tobacco Do You Smoke? No [email or web address] Information not available 10/07/2020 Sex: Unknown Functional Status None recorded. Mental Status None [...] Recorded Time zoster recombinant 02/12/2019 completed Berna ramírez [facility] 06/28/2023 14:32:34 zoster recombinant 07/18/2019 kaur ramírez [facility] 06/28/2023 14:32:34 Influenza, high-dose, quadrivalent, PF 08/11/2020 completed Berna Betancourt null, [facility] 06/28/2023 14:32:34 COVID-19, mRNA, LNP-S, PF, 30 mcg/0.3 mL dose 01/06/2021 completed Berna Betancourt null, [facility] 06/28/2023 14:32:34 COVID-19, mRNA, LNP-S, PF, 30 mcg/0.3 mL dose 01/27/2021 completed Berna Betancourt null, [facility] 06/28/2023 14:32:35 COVID-19, mRNA, LNP-S, PF, 30 mcg/0.3 mL dose 07/22/2021 completed Berna Betancourt null, [facility] 06/28/2023 14:32:35 pneumococcal polysaccharide PPV23 02/26/2012 completed Berna Betancourt null, [facility] 06/28/2023 14:32:35 Tdap 03/29/2011 completed Berna Betancourt null, [facility] 06/28/2023 14:32:35 Pneumococcal conjugate PCV 13 02/27/2015 [facility] 14:32:35 Influenza, high-dose, trivalent, PF 06/28/2017 completed Berna Betancourt null, [facility] 06/28/2023 14:32:35 Influenza, high-dose, trivalent, PF 09/06/2019 completed Berna Betancourt null, [facility] 06/28/2023 14:32:35 Td (adult), 2 Lf tetanus toxoid, preservative free, adsorbed 03/13/2001 completed Berna Betancourt null, [facility] 06/28/2023 14:32:35 Td (adult), 2 Lf tetanus toxoid, preservative free, adsorbed 08/20/2021 completed Berna Betancourt null, [facility] 06/28/2023 14:32:35 Influenza, split virus, quadrivalent, PF 08/21/2020 completed Berna Betancourt null, [facility] 06/28/2023 14:32:35 Influenza, split virus, quadrivalent, PF 09/27/2018 completed MAYRA Pillai - [facility] 06/28/2023 14:32:35 pneumococcal polysaccharide PPV23 02/27/2015 completed MAYRA Pillai - [facility] 06/28/2023 14:32:35 Past Encounters Encounter ID Performer Location Encounter Start Date Encounter Closed Date Diagnosis/Indication Diagnosis SNOMED-CT Code [id number] Jared Jackson MD [facility] [address] [place] [address] 10/07/2020 11:05:48 10/07/2020 12:23:23 Kidney stone [id number] Jared Jackson MD [facility] [address] [place] [address] 09/22/2021 14:50:46 09/24/2021 13:46:24 Kidney stone [id number] Jared Jackson MD [facility] [address] [place] [address] 07/06/2022 15:34:20 07/16/2022 10:54:17 Kidney stone [id number] Jared Jackson MD [facility] [address] [place] [address] 06/28/2023 14:15:49 06/30/2023 16:26:29 Kidney stone [id number] Health Concerns Section Related Observation LastModified by Organization Detai ls LastModified Time None Recorded Concern Status LastModified by Organization Details LastModified Time None Recorded Advance Directives Directive None Recorded Payers Encounter Date Sequence Insurance Name Policy Number Policy Cutler Covered Member ID Cutler Member ID Guarantor Name 09/22/2021 1 [employer] (MEDICARE REPLACEMENT/ ADVANTAGE - HMO) Shahnaz Phelps [id number] Shahnaz Phelps 07/06/2022 1 [employer] [id number] Shahnaz Phelps [id number] Shahnaz Phelps 06/28/2023 1 [employer] COST [id number] Shahnaz Phelps [id number] Shahnaz Landers Lenin Notes Date Note Type [...] kidney. She is scheduled for CT at [place] next week. She denies any voiding symptoms/no gross hhematuria. Jared Jackson MD [address] [place] [address],[address], [place], [address], [facility] 10/09/2020 20:28:46 09/22/2021 text/html HPI [...] hematuria. NO CVA tenderenss. Jared Jackson MD [address] [place] [address],[address], [place], [address], [facility] 09/22/2021 15:31:33 07/06/2022 text/html HPI [...] as in 2019 ). Jared Jackson MD [address] [place] [address],[address], [place], [address], [facility] 07/06/2022 16:25:32 06/28/2023 text/html HPI Notes: [...] access to imaging report. Jared Jackson MD [address] [place] [address],[address], [place], [address], [facility] 06/28/2023 15:29:14 OBGyn Episode No OBEpisode recorded.
--- OUTSIDE RECORDS SUMMARY | 2024-05-30 10:32 | XMS_ITS | Clinical Summary ---
Author Organization [facility] Address [address] [place] [address] Care Team Providers Care Cloth Desizing Range Operator Chief Name Role Phone Heidy Mesa MD Primary Care Provider Allergies Active Allergy Reactions Criticality Noted Date Comments Amoxicillin 03/01/2016 Itching rash Imidazole Antifungals 03/21/1999 hives Penicillins 12/18/2001 hives Medications Medication Sig Dispensed Refills Start Date End Date Status Multiple Vitamins-Minerals (MULTIVITAMIN OR) Take 1 tablet by mouth daily Active triamcinolone (KENALOG) 0.1 % creamIndications:Alexis matitis Apply topically 2 times daily 30 g 02/13/2018 Active hydrochlorothiazide (HYDRODIURIL) 25 MG tabletIndications:Es [...] 02/11/2017 History of malignant carcinoid tumor 04/17/2015 Calculus of kidney 03/28/2012 ACP (advance care [...] colon 12/27/2018 03/19/2019 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 Health Skilled Nursing 2012 04/23/2024 Overview: State Tier Level: Tier 2 Status: n/a Lawn Care Worker: See Letters for [facility] Care Plan iamSCIATICA 06/06/2006 12/11/2007 Absence of menstruation 04/08/2003 [...] 0 11/07/1980 - 11/07/1995 Smokeless Tobacco: Never Tobacco Cessation:Counseling Given: Yes Alcohol Use Standard Drinks/Week Comments Yes 0 (1 standard drink = 0.6 oz pur e alcohol) rarely PHQ-2 Answer Date Recorded PHQ-2 Score 0 02/07/2019 Adolescent Education Answer Date Record ed Getting School Help Needed Not on file 08/21 Sex and Gender Information Value Date Recorded Sex Assigned at Female 10/17/2018 7:14 PM SWEETBREAD TRIMMER Gender Identity Female 10/17/2018 7:14 PM SWEETBREAD TRIMMER Sexual Orientation Straight 10/17/2018 7: 14 PM SWEETBREAD TRIMMER Last Filed Vital Signs Vital Sign Reading [...] on file Medical Devices Implanted Type Area Key Worker Device Identifier Shelf Expiration Date Model / Serial / Lot Stent Ureteral Contour Soft Percuflex [id number] Implanted:Qty : 1 on 03/28/2019 by Jared Jackson MD at [facility] Stent Right: Ureter [employer] 11/26/2021 [id number] / / [id number] Stent Ureteral Dbl Pigtail Inlay [id number] Implanted:Qty : 1 on 06/08/2012 by Jared Jackson MD at [facility] Right: Ureter 03/08/2017 [id number] / / [id number] Hernia 3.1x4.7 Oval Sm [id number] Implanted:Qty : 1 on 05/02/2015 by Cheikh Barcenas MD at [facility] N/A: Abdomen CR [employer]DAVOL 01/04/2017 [id number] / / [id number] Explanted Type Area Key Worker Device Identifier Shelf Expiration Date Model / Serial / Lot Stent Ureteral Contour Soft Percuflex [id number] Explanted:Qty: 1 on 03/28/2019 by Jared Jackson MD at [facility] Stent Right: Ureter [employer] 11/19/2021 [id number] / / [id number] Advance Directives For more information, please contact: [phone] Documents on File Type Date Recorded Patient Power Equipment Technology Instructor Expl anation Advance Directives and Celia regan Will 02/07/2019 9:34 AM Power of Inside Polisher 02/07/2019 9:34 AM * Full Code (Latest Code Status on File) Date Activated Date Inactivated Comments 08/03/2014 9:14 AM 10/25/2018 6:31 AM * Full Code Date Activated Date Inactivated Comments 07/31/2014 3:56 PM 08/03/2014 9:14 AM Care Teams Cloth Desizing Range Operator Chief Relationship Specialty Start Date End Date Heidy Mesa MD [address] [address] PCP - General Internal Medicine 10/07/20
--- OUTSIDE RECORDS SUMMARY | 2024-05-30 10:32 | XMS_ITS | Encounter Summary ---
Author Organization [facility] Address [address] [place] [address] Care Team Providers Care Hot Die Press Feeder Name Role Phone Liudmila David MD Primary Care Provider Edgar Sidhu MD Unavailable [phone] Liudmila David MD Unavailable Bruna Hernandez PA-C Unavailable Liudmila David MD Unavailable UnavailBruna Giles PA-C Unavailable Heidy Mesa MD Primary Care Provider Encounter Details Date Type Department Care Team (Late st Contact Info) Description 05/28/2014 Orders Only [address] [phone] Social History Tobacco Use Types Packs/Day Years Used Date Smoking Tobacco: Former Cigarettes Q uit: 11/07/1995 Smokeless Tobacco: Never Alcohol Use Standard Drinks/Week Comments Yes 0 (1 standard drink = 0.6 oz pur e alcohol) rare Sex and Gender Information Value Date Recorded Sex Assigned at Female 10/17/2018 7:14 PM VP BIOLOGY Gender Identity Female 10/17/2018 7:14 PM VP BIOLOGY Sexual Orientation Straight 10/17/2018 7: 14 PM VP BIOLOGY documented as of this encounter Plan of Treatment Not on file documented as of this encounter Visit Diagnoses Not on filedocumented in this encounter Care Teams Hot Die Press Feeder Relationship Specialty Start Date End Date Liudmila David MD PCP - General Family Practice 02/12/14 10/06/20 [place] [address] [place] [address] PCP - Assigned PCP 12/31/18 01/09/19 Heidy Mesa MD [address] [address] PCP - General Internal Medicine 10/07/20 Liudmila David MD NO INFO AVAILABLE 06/02/23 Assigned PCP 10/12/15 02/02/20 Bruna Meade PA-C [facility] [address], [facility] [address] [place] [address] Assigned PCP 02/03/20 03/01/20 Liudmila David MD NO INFO AVAILABLE 06/02/23 Assigned PCP 03/02/20 04/19/20 Bruna Meade PA-C [facility] [address], [facility] [address] [place] [address] Assigned PCP 04/20/20 06/11/22 documented as of this encounter
--- OUTSIDE RECORDS SUMMARY | 2024-05-30 10:32 | XMS_ITS | Encounter Summary ---
Author Organization [facility] Address [address] [place] [address] Care Team Providers Care Lay Out And Detail Drafter Name Role Phone Liudmila David MD Primary Care Provider Edgar Sidhu MD Unavailable [phone] Liudmila David MD Unavailable UnavailBruna Giles PA-C Unavailable Liudmila David MD Unavailable UnavailBruna Giles PA-C Unavailable Heidy Mesa MD Primary Care Provider Encounter Details Date Type Department Care Team (Late st Contact Info) Description 06/27/2017 MyC Medical Advice [facility] [address] [place] [address] Liudmila David MD NO INFO AVAILABLE 06/02/23 [...] Sex Assigned at Female 10/17/2018 7:14 PM ASSISTANT FOOD SERVICE DIRECTOR Gender Identity Female 10/17/2018 7:14 PM ASSISTANT FOOD SERVICE DIRECTOR Sexual Orientation Straight 10/17/2018 7: 14 PM ASSISTANT FOOD SERVICE DIRECTOR documented as of this encounter Plan of Treatment Not on file documented as of this encounter Visit Diagnoses Not on filedocumented in this encounter Care Teams Lay Out And Detail Drafter Relationship Specialty Start Date End Date Liudmila David MD PCP - General Family Practice 02/12/14 10/06/20 [place] [address] [place] [address] PCP - Assigned PCP 12/31/18 01/09/19 Heidy Mesa MD [address] [address] PCP - General Internal Medicine 10/07/20 Liudmila David MD NO INFO AVAILABLE 06/02/23 Assigned PCP 10/12/15 02/02/20 Bruna Meade PA-C [facility] [address], [address] [place], [place] [address] Assigned PCP 02/03/20 03/01/20 Liudmila David MD NO INFO AVAILABLE 06/02/23 Assigned PCP 03/02/20 04/19/20 Bruna Meade PA-C [facility] [address], [address] [place] [address] Assigned PCP 04/20/20 06/11/22 documented as of this encounter
--- OUTSIDE RECORDS SUMMARY | 2024-05-30 10:32 | XMS_ITS | Referral Summary ---
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 Health [facility] 2012 04/23/2024 Overview: State Tier Level: Tier 2 Status: n/a Infantry Weapons Officer: See Letters for [facility] Care Plan iamSCIATICA 06/06/2006 12/11/2007 Absence of [...] Assigned at Female 10/17/2018 7:14 PM MANAGER MOUNTAIN Gender Identity Female 10/17/2018 7:14 PM MANAGER MOUNTAIN Sexual Orientation Straight 10/17/2018 7: 14 PM MANAGER MOUNTAIN Last Filed Vital Signs Vital Sign Reading [...] on file Medical Devices Implanted Type Area Snowmobile Mechanic Device Identifier Shelf Expiration Date Model / Serial / Lot Stent Ureteral Contour Soft Percuflex [id number] Implanted:Qty : 1 on 03/28/2019 by Jared Jackson MD at [facility] Stent Right: Ureter [employer] 11/26/2021 [id number] / / [id number] Stent Ureteral Dbl Pigtail Inlay [id number] Implanted:Qty : 1 on 06/08/2012 by Jared Jackson MD at [facility] Right: Ureter 03/08/2017 [id number] / / [id number] M[address] Hernia 3.1x4.7 Oval Sm [id number] Implanted:Qty : 1 on 05/02/2015 by Cheikh Barcenas MD at [facility] N/A: Abdomen CR [employer]DA[employer] 01/04/2017 [id number] / / [id number] Explanted Type Area Snowmobile Mechanic Device Identifier Shelf Expiration Date Model / Serial / Lot Stent Ureteral Contour Soft Percuflex [id number] Explanted:Qty: 1 on 03/28/2019 by Jared Jackson MD at [facility] Stent Right: Ureter [employer] 11/19/2021 [id number] / / [id number] Advance Directives For more information, please contact: [phone] Documents on File Type Date Recorded Patient Social Work Nurse Expl anation Advance Directives and Livin g Will 02/07/2019 9:34 AM Power of Aircraft Servicer 02/07/2019 9:34 AM * Full Code (Latest Code Status on File) Date Activated Date Inactivated Comments 08/03/2014 9:14 AM 10/25/2018 6:31 AM * Full Code Date Activated Date Inactivated Comments 07/31/2014 3:56 PM 08/03/2014 9:14 AM Care Teams Wind Power Project Manager Relationship Specialty Start Date End Date Heidy Mesa MD [facility] - [address] [address] PCP - General Internal Medicine 10/07/20
--- OUTSIDE RECORDS SUMMARY | 2024-05-30 10:32 | XMS_ITS | Encounter Summary ---
Author Organization [facility] Address [address] [place] [address] Care Team Providers Care Learning Support Resource Room Teacher Name Role Phone Liudmila David MD Primary Care Provider Edgar Sidhu MD Unavailable [phone] Liudmila David MD Unavailable UnavailBruna Giles PA-C Unavailable Liudmila David MD Unavailable UnavailBruna Giles PA-C Unavailable Heidy Mesa MD Primary Care Provider [phone] Reason for Visit * Reason Comments Medication Refill Encounter Details Date Type Department Care Team (Late st Contact Info) Description 03/03/2014 Refill [facility] [address] [place] [address] [address] [place] [phone] Liudmila David MD NO INFO AVAILABLE 06/02/23 Medication Refill Social History Tobacco Use Types Packs/Day Years Used Date Smoking Tobacco: Former Cigarettes Q uit: 11/07/1995 Smokeless Tobacco: Never Alcohol Use Standard Drinks/Week Comments Yes 0 (1 standard drink = 0.6 oz pur e alcohol) rare Sex and Gender Information Value Date Recorded Sex Assigned at Female 10/17/2018 7:14 PM HEEL LIFT GOUGER Gender Identity Female 10/17/2018 7:14 PM HEEL LIFT GOUGER Sexual Orientation Straight 10/17/2018 7: 14 PM HEEL LIFT GOUGER documented as of this encounter Miscellaneous Notes * Telephone Encounter - Leora Regalado - 03/04/2014 [...] Primary documented in this encounter Care Teams Learning Support Resource Room Teacher Relationship Specialty Start Date End Date Liudmila David MD PCP - General Family Practice 02/12/14 10/06/20 [place] [address] [place] [address] PCP - Assigned PCP 12/31/18 01/09/19 Heidy Mesa MD [facility] - [address] [address] PCP - General Internal Medicine 10/07/20 Liudmila David MD NO INFO AVAILABLE 06/02/23 Assigned PCP 10/12/15 02/02/20 Bruna Meade PA-C [facility] [address], [address] [place], [place] [address] Assigned PCP 02/03/20 03/01/20 Liudmila David MD NO INFO AVAILABLE 06/02/23 Assigned PCP 03/02/20 04/19/20 Bruna Meade PA-C [facility] [address] [place] [address] Assigned PCP 04/20/20 06/11/22 documented as of this encounter
--- OUTSIDE RECORDS SUMMARY | 2024-05-30 10:32 | XMS_ITS | Encounter Summary ---
Author Organization [facility] Address [address] [place] [address] Care Team Providers Care Table Top Tile Setter Name Role Phone Liudmila David MD Primary Care Provider Unav ailable Liudmila Daivd MD Unavailable Bruna Hernandez PA-C Unavailable Liudmila David MD Unavailable UnavailBruna Giles PA-C Unavailable Heidy Mesa MD Primary Care Provider Encounter Details Date Type Department Care Team (Late st Contact Info) Description 03/20/2019 MyC Medical Advice [facility] [address] [place] [phone] Liudmila David MD NO INFO AVAILABLE 06/02/23 [...] Assigned at Female 10/17/2018 7:14 PM MANAGER MANAGING Gender Identity Female 10/17/2018 7:14 PM MANAGER MANAGING Sexual Orientation Straight 10/17/2018 7: 14 PM MANAGER MANAGING documented as of this encounter Miscellaneous Notes * Telephone Encounter - Sruthi Mauricio MA - 03/22/2019 7:13 AM CDTFrom: Liudmila David MD To: Shahnaz Landers Lenin Sent: 03/20/2019 8:38 AM CDT Subject: preop [...] on filedocumented in this encounter Care Teams Table Top Tile Setter Relationship Specialty Start Date End Date Liudmila David MD PCP - General Family Practice 02/12/14 10/06/20 Heidy Mesa MD [facility] & [address] [address] PCP - General Internal Medicine 10/07/20 Liudmila David MD NO INFO AVAILABLE 06/02/23 Assigned PCP 10/12/15 02/02/20 Bruna Meade PA-C [facility] [address], [address] [place] [address] Assigned PCP 02/03/20 03/01/20 Liudmila David MD NO INFO AVAILABLE 06/02/23 Assigned PCP 03/02/20 04/19/20 Bruna Meade PA-C [facility] [address], [address] [place] [address] Assigned PCP 04/20/20 06/11/22 documented as of this encounter
--- NOTE | 2024-05-30 11:00 | CRLHL7_ITS ---
For Patients: As a result of the Century Cures Act, medical imaging exams and procedure reports are released immediately into your electronic medical record. You may view this report before your referring provider. If you have questions, please contact your health care provider. INDICATION: Surveillance neuroendocrine tumor of colon. TECHNIQUE: CT abdomen and pelvis acquired with 100 cc Isovue 370 IV contrast. COMPARISON: CT scan of the abdomen and pelvis 05/26/2023. FINDINGS: Lower chest: Stable fibrotic changes within the anterior right middle lobe. Liver: Stable small cyst in the left hepatic lobe. Normal in size and attenuation. No suspicious masses. Gallbladder and bile ducts: Unremarkable. No stones or inflammation. No biliary dilatation. Pancreas: Unremarkable. No mass or inflammation. Spleen: Unremarkable. Normal in size. No masses. Adrenal glands: Unremarkable. No nodules. Kidneys, ureters and urinary bladder: Numerous nonobstructing right renal stones, unchanged. Otherwise unremarkable kidneys. No ureteral stone or hydronephrosis. Unremarkable urinary bladder. GI tract: Status post right hemicolectomy with ileocolic anastomosis, unchanged. The colon is otherwise unremarkable. No local recurrent mass. 3 centimeter diverticulum of the descending duodenum without diverticulitis. Tiny gastric hiatus hernia. Vasculature: Mild atherosclerosis of the abdominal aorta. No aneurysm. Mesenteric arteries are patent. Lymph nodes: No lymphadenopathy. Peritoneum: Unremarkable. No sign of mass or infiltration. No free air or significant free fluid. Abdominal Wall: No abdominal wall mass or hernia. Pelvis: Unremarkable uterus and adnexa. Bones: Unremarkable for age. IMPRESSION: 1. No local recurrent or metastatic disease identified within the abdomen or pelvis. 2. Bilateral nephrolithiasis. 3. 3 centimeter diverticulum of the descending duodenum and tiny gastric hiatus hernia. 4. No acute abnormality. Please note that all CT scans at this facility use dose modulation, iterative reconstruction, and/or weight-based dosing when appropriate to reduce radiation dose to as low as reasonably achievable. Dictated by Richar Espinosa MD @ 05/31/2024 12:17:37 PM (Electronically Signed)
[2024-05-30 11:08] LABS: Creatinine* 0.9 mg/dL (0.5-1.5); Estimated Glomerular Filt Rate 65 ml/min
== END 2024-05-30 10:30 | disposition home or self-care (01) ==
LOC: CT 10:30
PROVIDERS: PCP Internal Medicine; Visit Provider Clinical Nurse Specialist
DX: C7A.029 Malignant carcinoid tumor of the large intestine, unspecified portion (principal); N20.0 Calculus of kidney; K57.10 Diverticulosis of small intestine without perforation or abscess without bleeding; K44.9 Diaphragmatic hernia without obstruction or gangrene
CPT/HCPCS: 36415; 74177; 82565; Q9967

== ENCOUNTER 2024-06-06 12:45 | Outpatient (RCR) | payer MEDICARE, SELFPAY | END 2024-12-03 23:59 | disposition home or self-care (01) | LOC: CCIC 12:45 | PROVIDERS: PCP Internal Medicine; Visit Provider Internal Medicine Hematology & Oncology | DX: C50.911 Malignant neoplasm of unspecified site of right female breast (principal); Z17.1 Estrogen receptor negative status [ER-]; C7A.029 Malignant carcinoid tumor of the large intestine, unspecified portion; G62.0 Drug-induced polyneuropathy; T45.1X5A Adverse effect of antineoplastic and immunosuppressive drugs, initial encounter | CPT/HCPCS: 99214; 99215; G0463 ==

== ENCOUNTER 2024-08-13 13:35 | Outpatient (CLI) | payer MEDICARE, SELFPAY ==
--- OUTSIDE RECORDS SUMMARY | 2024-08-17 04:49 | XMS_ITS | Clinical Summary ---
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 Provider to review Other acne 06/23/2016 Immunizations Name Administration Dates Next Due Influenza (High Dose) Trivalent,PF (Fluzone) Influenza (IIV3) PF 08/27/1998 Influenza Vaccine >6 [...] Sex Assigned at Female 10/17/2018 7:14 PM CORNER BEAD OPERATOR Gender Identity Female 10/17/2018 7:14 PM CORNER BEAD OPERATOR Sexual Orientation Straight 10/17/2018 7: 14 PM CORNER BEAD OPERATOR Last Filed Vital Signs Vital Sign [...] on file Medical Devices Implanted Type Area Shipping Clerk Packing Device Identifier Shelf Expiration Date Model / Serial / Lot Stent Ureteral Contour Soft Percuflex [id number] Implanted:Qty : 1 on 03/28/2019 by Jared Jackson MD at [facility] Stent Right: Ureter [employer] 11/26/2021 [id number] / / [id number] Stent Ureteral Dbl Pigtail Inlay [id number] Implanted:Qty : 1 on 06/08/2012 by Jared Jackson MD at [facility] Right: Ureter 03/08/2017 [id number] / / [id number] M[address] Hernia 3.1x4.7 Oval Sm [id number] Implanted:Qty : 1 on 05/02/2015 by Cheikh Barcenas MD at [facility] N/A: Abdomen CR [employer] 01/04/2017 [id number] / / [id number] Explanted Type Area Shipping Clerk Packing Device Identifier Shelf Expiration Date Model / Serial / Lot Stent Ureteral Contour Soft Percuflex [id number] Explanted:Qty: 1 on 03/28/2019 by Jared Jackson MD at [facility] Stent Right: Ureter [employer] 11/19/2021 [id number] / / [id number] Advance Directives For more information, please contact: [phone] Documents on File Type Date Recorded Patient Program Director Expl anation Advance Directives and Harperin shereen Will 02/07/2019 9:34 AM Power of Settlement Technician 02/07/2019 9:34 AM * Full Code (Latest Code Status on File) Date Activated Date Inactivated Comments 08/03/2014 9:14 AM 10/25/2018 6:31 AM * Full Code Date Activated Date Inactivated Comments 07/31/2014 3:56 PM 08/03/2014 9:14 AM Care Teams Electrical Prospecting Operator Relationship Specialty Start Date End Date Heidy Mesa MD [address] [address] PCP - General Internal Medicine 10/07/20
--- OUTSIDE RECORDS SUMMARY | 2024-08-17 04:49 | XMS_ITS | Encounter Summary ---
Author Organization [facility] Address [address] [place] [address] Care Team Providers Care Gameplay Programmer Name Role Phone Liudmila David MD Primary Care Provider Edgar Sidhu MD Unavailable [phone] Liudmila David MD Unavailable UnavailBruna Giles PA-C Unavailable Liudmila David MD Unavailable UnavailBruna Giles PA-C Unavailable Heidy Mesa MD Primary Care Provider Reason for Visit * Reason Comments Medication Refill Encounter Details Date Type Department Care Team (Late st Contact Info) Description 03/03/2014 Refill [facility] [address] [place] [address] [address] [place] [phone] Liudmila David MD NO INFO AVAILABLE 06/02/23 Medication Refill Social History Tobacco Use Types Packs/Day Years Used Date Smoking Tobacco: Former Cigarettes Q uit: 11/07/1995 Smokeless Tobacco: Never Alcohol Use Standard Drinks/Week Comments Yes 0 (1 standard drink = 0.6 oz pur e alcohol) rare Sex and Gender Information Value Date Recorded Sex Assigned at Female 10/17/2018 7:14 PM PRODUCTION LINE Gender Identity Female 10/17/2018 7:14 PM PRODUCTION LINE Sexual Orientation Straight 10/17/2018 7: 14 PM PRODUCTION LINE documented as of this encounter Miscellaneous [...] Primary documented in this encounter Care Teams Gameplay Programmer Relationship Specialty Start Date End Date Liudmila David MD PCP - General Family Practice 02/12/14 10/06/20 [place] [address] [facility] [place] [address] PCP - Assigned PCP 12/31/18 01/09/19 Heidy Mesa MD [facility] - [address] [address] PCP - General Internal Medicine 10/07/20 Liudmila David MD NO INFO AVAILABLE 06/02/23 Assigned PCP 10/12/15 02/02/20 Bruna Meade PA-C [facility] [address] [place], [place] [address] Assigned PCP 02/03/20 03/01/20 Liudmila David MD NO INFO AVAILABLE 06/02/23 Assigned PCP 03/02/20 04/19/20 Bruna Meade PA-C [facility] [address] [place] [address] Assigned PCP 04/20/20 06/11/22 documented as of this encounter
--- OUTSIDE RECORDS SUMMARY | 2024-08-17 04:49 | XMS_ITS | Referral Summary ---
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 Health Nursing Home 2012 04/23/2024 Overview: State Tier Level: Tier 2 Status: n/a Roll Tension Tester: See Letters for [facility] Care Plan iamSCIATICA 06/06/2006 12/11/2007 Absence of [...] Sex Assigned at Female 10/17/2018 7:14 PM SALVAGE SUPERVISOR Gender Identity Female 10/17/2018 7:14 PM SALVAGE SUPERVISOR Sexual Orientation Straight 10/17/2018 7: 14 PM SALVAGE SUPERVISOR Last Filed Vital Signs Vital Sign Reading [...] on file Medical Devices Implanted Type Area Template Maker Device Identifier Shelf Expiration Date Model / Serial / Lot Stent Ureteral Contour Soft Percuflex [id number] Implanted:Qty : 1 on 03/28/2019 by Jared Jackson MD at [facility] Stent Right: Ureter [employer] 11/26/2021 [id number] / / [id number] Stent Ureteral Dbl Pigtail Inlay [id number] Implanted:Qty : 1 on 06/08/2012 by Jared Jackson MD at [facility] Right: Ureter 03/08/2017 [id number] / / [id number] Hernia 3.1x4.7 Oval Sm [id number] Implanted:Qty : 1 on 05/02/2015 by Cheikh Barcenas MD at [facility] N/A: Abdomen CR [employer] 01/04/2017 [id number] / / [id number] Explanted Type Area Template Maker Device Identifier Shelf Expiration Date Model / Serial / Lot Stent Ureteral Contour Soft Percuflex [id number] Explanted:Qty: 1 on 03/28/2019 by Jared Jackson MD at [facility] Stent Right: Ureter [employer] 11/19/2021 [id number] / / [id number] Advance Directives For more information, please contact: [phone] Documents on File Type Date Recorded Patient Resource Director Expl anation Advance Directives and Livin g Will 02/07/2019 9:34 AM Power of Interstate Bus Driver 02/07/2019 9:34 AM * Full Code (Latest Code Status on File) Date Activated Date Inactivated Comments 08/03/2014 9:14 AM 10/25/2018 6:31 AM * Full Code Date Activated Date Inactivated Comments 07/31/2014 3:56 PM 08/03/2014 9:14 AM Care Teams Teletype Or Varitype Keyboard Operator Relationship Specialty Start Date End Date Heidy Mesa MD [facility] - [address] [address] PCP - General Internal Medicine 10/07/20
--- OUTSIDE RECORDS SUMMARY | 2024-08-17 04:49 | XMS_ITS | Encounter Summary ---
Author Organization [facility] Address [address] [place] [address] Care Team Providers Care Outsole Compressor Name Role Phone Liudmila David MD Primary Care Provider Edgar Sidhu MD Unavailable [phone] Liudmila David MD Unavailable UnavailBruna Giles PA-C Unavailable Liudmila David MD Unavailable UnavailBruna Giles PA-C Unavailable Heidy Mesa MD Primary Care Provider [phone] Encounter Details Date Type Department Care Team (Late st Contact Info) Description 06/27/2017 MyC Medical Advice [facility] [address] [place] [address] Liudmila David MD NO INFO [...] Sex Assigned at Female 10/17/2018 7:14 PM INSOLE DOUBLER Gender Identity Female 10/17/2018 7:14 PM INSOLE DOUBLER Sexual Orientation Straight 10/17/2018 7: 14 PM INSOLE DOUBLER documented as of this encounter Plan of Treatment Not on file documented as of this encounter Visit Diagnoses Not on filedocumented in this encounter Care Teams Outsole Compressor Relationship Specialty Start Date End Date Liudmila David MD PCP - General Family Practice 02/12/14 10/06/20 [place] [address] [place] [address] PCP - Assigned PCP 12/31/18 01/09/19 Heidy Mesa MD [address] [address] PCP - General Internal Medicine 10/07/20 Liudmila David MD NO INFO AVAILABLE 06/02/23 Assigned PCP 10/12/15 02/02/20 Bruna Meade PA-C [facility] [address] [place], [place] [address] Assigned PCP 02/03/20 03/01/20 Liudmila David MD NO INFO AVAILABLE 06/02/23 Assigned PCP 03/02/20 04/19/20 Bruna Meade PA-C [facility] [address] [place] [address] Assigned PCP 04/20/20 06/11/22 documented as of this encounter
--- OUTSIDE RECORDS SUMMARY | 2024-08-17 04:49 | XMS_ITS | Encounter Summary ---
Author Organization [facility] Address [address] [place] [address] Care Team Providers Care Paper Slitter Name Role Phone Liudmila David MD Primary Care Provider Unav ailable Liudmila David MD Unavailable Bruna Hernandez PA-C Unavailable Liudmila David MD Unavailable UnavailBruna Giles PA-C Unavailable Heidy Mesa MD Primary Care Provider Encounter Details Date Type Department Care Team (Late st Contact Info) Description 07/27/2019 MyC Medical Advice [facility] [address] [place] [address] Liudmila David MD NO INFO AVAILABLE 06/02/23 [...] Sex Assigned at Female 10/17/2018 7:14 PM ACCOUNTING FILE CLERK Gender Identity Female 10/17/2018 7:14 PM ACCOUNTING FILE CLERK Sexual Orientation Straight 10/17/2018 7: 14 PM ACCOUNTING FILE CLERK documented as of this encounter Plan of Treatment Not on file documented as of this encounter Visit Diagnoses Not on filedocumented in this encounter Care Teams Paper Slitter Relationship Specialty Start Date End Date Liudmila David MD PCP - General Family Practice 02/12/14 10/06/20 Heidy Mesa MD [address] [address] PCP - General Internal Medicine 10/07/20 Liudmila David MD NO INFO AVAILABLE 06/02/23 Assigned PCP 10/12/15 02/02/20 Bruna Meade PA-C [facility] [address], [facility] [address] [place], [place] [address] Assigned PCP 02/03/20 03/01/20 Liudmila David MD NO INFO AVAILABLE 06/02/23 Assigned PCP 03/02/20 04/19/20 Bruna Meade PA-C [facility] [address], [facility] [address] [place] [address] Assigned PCP 04/20/20 06/11/22 documented as of this encounter
--- OUTSIDE RECORDS SUMMARY | 2024-08-17 04:49 | XMS_ITS | Continuity of Care Document ---
Author Organization [facility] Address [address] [place] [address] Care Team Providers Care Vice President Quality Name Role Phone DEUCE BANKS Primary Care Provider Assessment No assessment recorded. Plan of Treatment Reminders Order Date Submit Date Provider Last Modified By Organization Details Last Modified Time Details Appointments None recorded. Lab urinalysi s, dipstick 2023 024 [email or web address] [facility], [address], [place], [address], 4 14:42:21 Referral None recorded. Procedures None recorded. Surgeries None recorded. Imaging US, renal 2023 024 [facility], [address], [facility] [address], [place], [address], 4 14:48:14 Medication Orders None recorded. Patient TargetsNo targets recorded. Patient InstructionsNo instructions recorded. Reason for Referral None Reported. Results Created Date Observation Date Name Description Value Unit Range Abnormal Flag Note LastModifiedBy Organization Detail LastModifiedTime 06/26/20 24 06/26/2024 urina lysis , dipst ick BLOOD Negati ve Not Available [facility] [address], [place], [address], 06/26/2024 14:12:15 06/26/20 24 06/26/2024 urina lysis , dipst ick BILIRUBIN Negati ve Not Available [facility] [address], [place], [address], 06/26/2024 14:12:15 06/26/20 24 06/26/2024 urina lysis , dipst ick UROBILINOGEN 0.2 mg/dL (Norm) Not Available [facility] [address], [place], [address], 06/26/2024 14:12:15 06/26/20 24 06/26/2024 urina lysis , dipst ick KETONES Negati ve Not Available [facility] [address], [place], [address], 06/26/2024 14:12:15 06/26/20 24 06/26/2024 urina lysis , dipst ick PROTEIN Negati ve Not Available [facility] [address], [place], [address], 06/26/2024 14:12:15 06/26/20 24 06/26/2024 urina lysis , dipst ick NITRITES Negati ve Not Available [facility] [address], [place], [address], 06/26/2024 14:12:15 06/26/20 24 06/26/2024 urina lysis , dipst ick GLUCOSE Negati ve Not Available [facility] [address], [place], [address], 06/26/2024 14:12:15 06/26/20 24 06/26/2024 urina lysis , dipst ick p.H. 7.0 Not Available [facility] [address], [place], [address], 06/26/2024 14:12:15 06/26/20 24 06/26/2024 urina lysis , dipst ick S.G. (Specific [place]) 1.015 Not Available [facility] [address], [place], [address], 06/26/2024 14:12:15 06/26/20 24 06/26/2024 urina lysis , dipst ick LEUKOCYTES Trace (10 WBC/uL ) Not Available [facility] [address], [place], [address], 06/26/2024 14:12:15 Result Notes None recorded. Problems Name Problem SNOMED Code Status Onset Date Resolution Date Notes Provider Name and Address Organization Details Recorded Time Microscop ic hematuria 558798180 Active 2011 599.72 : MICROSCOPI C HEMATURIA Not Available [facility] 0 01:57:44 Kidney stone 42225480 Active 2011 592.0 : CALCULUS-K IDNEY Not Available [facility] 0 01:57:44 Problem Notes None recorded. Procedures Surgical History Date Name Laterality Status Provider Name and Address Organization Details Recorded Time 06/26/2024 Urinalysis completed Berna Betancourt [facility] 06/26/2024 14:13:09 Imaging Results None recorded. Procedure Notes None recorded. Medical Equipment None Reported. Allergies Allergen ID Allergen Name Allergen Category Reaction Reaction Severity Criticality Documentation Date Start Date Code Code System Note Provider Name and Address Organization Details Recorded Time 442481 Penicilli n Not available Not available Not available Not available 04/24/20202011 68769 RxNorm Not Available [facility] 0 00:48:41 031381 amoxicill in medicatio n Not available Not available Not available 06/28/2023 723 RxNorm Berna ramírez [facility] 3 14:32:52 Medications Name Sig Start [...] 5 mg-acetamin ophen 325 mg tablet TAKE 1 TABLET BY MOUTH EVERY 4 TO 6 HOURS NEEDED FOR PAIN active Not Available Not Available No t Available doxycycline hyclate 50 mg capsule 07/06 [...] completed Not Available Not Available Not Available ketorolac 10 mg tablet TAKE 1 TABLET BY MOUTH EVERY 8 HOURS FOR 5 DAYS 06/26 completed Not Available Not Available Not Available [...] completed Not Available Not Available Not Available methylpredn isolone 4 mg tablets in a dose pack TAKE BY MOUTH DIRECTED ON INSIDE OF PACKAGE 06/26 completed Not Available Not Available Not Available losartan 100 mg tablet TAKE 1 TABLET BY MOUTH ONCE DAILY active Not Available Not Available No t Available fluticasone propionate 50 mcg/actuati on nasal [...] and Address Organization Details Last Updated DateTime 06/26/2024 168.91 cm 34.2 kg/m2 24336.36 g Gil [address]UNEZ [facility] 06/26/2024 14:24:30 Social History Question Answer Notes LastModified by Organizat ion Details LastModified Time Tobacco Smoking Status Former Smoker Zahra Darwin [facility] 10/07/2020 11:51:54 What Is Your Level Of Alcohol Consumption? Occasional [email or web address] Information not available 10/07/2020 What Is Your Level Of Caffeine Consumption? Occasional [email or web address] Information not available 10/07/2020 How Much Tobacco Do You Chew? None [email or web address] Information not available 10/07/2020 Do You Or Have You Ever Used E-cigarettes Or Vape? Never Used Electronic Cigarettes [email or web address] Information not available 10/07/2020 When Did You Quit Smoking? 16+yearssincel astcimariela [email or web address] Information not available 10/07/2020 Recreational Drug Use No [email or web address] Information not available 10/07/2020 Marital Status [email or web address] Informati on not available 10/07/2020 What Was The Date Of Your Most Recent Tobacco Screening? 06/26/2024 [email or web address] Information not available 06/26/2024 Have You Ever Been Counseled For Unhealthy Alcohol Use? No Information not available 06/26/2024 Do You Or Have You Ever Used Smokeless Tobacco? Never Used Smokeless Tobacco Information not available 10/07/2020 How Much Tobacco Do You Smoke? No [email or web address] Information not available 10/07/2020 Do You Use Any Illicit Or Recreational Drugs? No Information not available 06/26/2024 How Many Days In The Past Year Have You Consumed 4 Or More Drinks? 0 [email or web address] Information no t available 06/26/2024 Sex: Unknown Functional Status None recorded. Mental Status None recorded. Family History Relationship Description Onset Age of this Age Resolved Age Notes LastModified by Organization Details LastModified Time Father No current problems or disability Not available 06/26 14:24:47 Mother No current problems or disability [email or web address] Not available 06/26 14:24:47 Medical History Condition Response High Blood Pressure Y Kidney Stones Y Depression N Sexually Transmitted Infection N Cancer N Bleeding Disorder N Lung Disease N GERD/Acid Reflux N High Cholesterol N Diabetes N Heart Disease N Gynecological History Statement/Question Response Irregular periods N Leaking urine with intercourse N Hormone Therapy N Heavy periods N Pain with intercourse N Sexually Active? N Obstetrics History GPAL:G 1 P 0 0 0 1 Type Value Living 1 Total 1 Immunizations Vaccine Type Date Status Provider Name and Address Organization Details Recorded Time Influenza, split virus, quadrivalent, PF 10/18/2021 completed Berna ramírez [facility] 06/26/2024 14:12:01 zoster recombinant 02/12/2019 [facility] 14:32:34 zoster recombinant 07/18/2019 [facility]2023 14:32:34 Influenza, high-dose, quadrivalent, PF 08/11/2020 [facility] 14:32:34 COVID-19, mRNA, LNP-S, PF, 30 mcg/0.3 mL dose 01/06/2021 [facility]2023 14:32:34 COVID-19, mRNA, LNP-S, PF, 30 mcg/0.3 mL dose 01/27/2021 [facility]2023 14:32:35 COVID-19, mRNA, LNP-S, PF, 30 mcg/0.3 mL dose 07/22/2021 [facility]2023 14:32:35 pneumococcal polysaccharide PPV23 02/26/2012 [facility]/28/2023 14:32:35 Tdap 03/29/2011 [facility]2023 14:32:35 Pneumococcal conjugate PCV 13 02/27/2015 [facility]2023 14:32:35 Influenza, high-dose, trivalent, PF 06/28/2017 [facility] 14:32:35 Influenza, high-dose, trivalent, PF 09/06/2019 completed Berna ramírez, [facility] 06/28/2023 14:32:35 Td (adult), 2 Lf tetanus toxoid, preservative free, adsorbed 03/13/2001 completed Berna Serafin ramírez, [facility] 06/28/2023 14:32:35 Td (adult), 2 Lf tetanus toxoid, preservative free, adsorbed 08/20/2021 completed Berna ramírez, [facility] 06/28/2023 14:32:35 Influenza, split virus, quadrivalent, PF 08/21/2020 completed Berna ramírez, [facility] 06/28/2023 14:32:35 Influenza, split virus, quadrivalent, PF 09/27/2018 completed Berna ramírez, [facility] 06/28/2023 14:32:35 pneumococcal polysaccharide PPV23 02/27/2015 completed Berna ramírez [facility] 06/28/2023 14:32:35 Past Encounters Encounter ID Performer Location Encounter Start Date Encounter Closed Date Diagnosis/Indication Diagnosis SNOMED-CT Code Diagnosis ICD10 Code [id number] Jared Jackson MD [facility] [address] [place] [phone] 06/26/2024 14:04:08 06/27/2024 14:00:35 Kidney stone 33625257 N20.0 Health Concerns Section Related Observation LastModified by Organization Detai ls LastModified Time None Recorded Concern Status LastModified by Organization Details LastModified Time None Recorded Payers Encounter Date Sequence Insurance Name Policy Number Policy Cutler Covered Member ID Cutler Member ID Guarantor Name 06/26/2024 1 [employer] [employer]ICARE COST [id number] Shahnaz Phelps [id number] Shahnaz Phelps Notes Date Note Type Note Provider Name and Address Organization Details Recorded Time 06/26/2024 text/html HPI Notes: 78 YO F here for annual f/u regarding kidney stones She had recent CT 05/30/2024 that showed a 5 mm stones PSHx: s/p right ESWL on 03/28/19 for 8 mm upper pole stone and a number of stones in the low pole. Imaging: - 12/20/23: US renal: R kidney: no hydro, several probable non-obstructing renal calculi noted. L kidney: no hydro, 2 possible punctate nonobstructing renal calculi. - 07/06/22: CT: showed a couple of small under 5 mm stones in the right kidneys; no left kidney stones (same stones as in 2019 ) - 12/15/2021: Renal US: showed evidence of bilateral renal calculi with at least 5 stones on the left measuring up to 9 mm and 2 stones on the right measuring up to 7 mm. No hydro noted. - 09/2021: KUB: was without evidence of nephrolithiasis. - 10/2020: CT: showed small stones 5 and 6 mm in her kidneys She takes HCTZ 25 mg Q day for stone prevention. 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
--- OUTSIDE RECORDS SUMMARY | 2024-08-17 04:49 | XMS_ITS | Encounter Summary ---
Author Organization [facility] Address [address] [place] [address] Care Team Providers Care Poker In Name Role Phone Liudmila David MD Primary Care Provider Unav ailable Liudmila David MD Unavailable Bruna Hernandez PA-C Unavailable Liudmila David MD Unavailable UnavailBruna Giles PA-C Unavailable Heidy Mesa MD Primary Care Provider Encounter Details Date Type Department Care Team (Late st Contact Info) Description 03/20/2019 MyC Medical Advice [facility] [address] [place] [phone] Liudmila David MD NO INFO AVAILABLE 06/02/23 [...] Sex Assigned at Female 10/17/2018 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 Gender Identity Female 10/17/2018 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 Sexual Orientation Straight 10/17/2018 7: 14 PM COAL GETTER documented as of this encounter Miscellaneous Notes [...] on filedocumented in this encounter Care Teams Poker In Relationship Specialty Start Date End Date Liudmila David MD PCP - General Family Practice 02/12/14 10/06/20 Heidy Mesa MD [facility] & [address] [address] PCP - General Internal Medicine 10/07/20 Liudmila David MD NO INFO AVAILABLE 06/02/23 Assigned PCP 10/12/15 02/02/20 Bruna Meade PA-C [facility] [address], [address] [place] [address] Assigned PCP 02/03/20 03/01/20 Liudmila David MD NO INFO AVAILABLE 06/02/23 Assigned PCP 03/02/20 04/19/20 Bruna Meade PA-C [facility] [address] [place] [address] Assigned PCP 04/20/20 06/11/22 documented as of this encounter
--- OUTSIDE RECORDS SUMMARY | 2024-08-17 04:49 | XMS_ITS | Encounter Summary ---
Author Organization [facility] Address [address] [place] [address] Care Team Providers Care Radiologic Technologist Name Role Phone Liudmila David MD Primary Care Provider Edgar Sidhu MD Unavailable [phone] Liudmila David MD Unavailable Bruna Hernandez PA-C Unavailable Liudmila David MD Unavailable UnavailBruna Giles PA-C Unavailable Heidy Mesa MD Primary Care Provider Encounter Details Date Type Department Care Team (Late st Contact Info) Description 05/28/2014 Orders Only [address] [phone] Social History Tobacco Use Types Packs/Day Years Used Date Smoking Tobacco: Former Cigarettes Q uit: 11/07/1995 Smokeless Tobacco: Never Alcohol Use Standard Drinks/Week Comments Yes 0 (1 standard drink = 0.6 oz pur e alcohol) rare Sex and Gender Information Value Date Recorded Sex Assigned at Female 10/17/2018 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 Gender Identity Female 10/17/2018 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 Sexual Orientation Straight 10/17/2018 7: 14 PM VAT HOUSE SUPERVISOR documented as of this encounter Plan of Treatment Not on file documented as of this encounter Visit Diagnoses Not on filedocumented in this encounter Care Teams Radiologic Technologist Relationship Specialty Start Date End Date Liudmila David MD PCP - General Family Practice 02/12/14 10/06/20 [place] [address] [place] [address] PCP - Assigned PCP 12/31/18 01/09/19 Heidy Mesa MD [address] [address] PCP - General Internal Medicine 10/07/20 Liudmila David MD NO INFO AVAILABLE 06/02/23 Assigned PCP 10/12/15 02/02/20 Bruna Meade PA-C [facility] [address], [facility] [address] [place] [address] Assigned PCP 02/03/20 03/01/20 Liudmila David MD NO INFO AVAILABLE 06/02/23 Assigned PCP 03/02/20 04/19/20 Bruna Meade PA-C [facility] [address], [facility] [address] [place] [address] Assigned PCP 04/20/20 06/11/22 documented as of this encounter
== END 2024-08-13 13:36 | disposition home or self-care (01) ==
LOC: NFLDREF 08-17 04:47
PROVIDERS: PCP Internal Medicine; Referring Provider Internal Medicine; Visit Provider Internal Medicine
DX: I10 Essential (primary) hypertension (principal)
CPT/HCPCS: 80048

== ENCOUNTER 2024-12-06 11:03 | Outpatient (CLI) | payer MEDICARE, SELFPAY ==
--- NOTE | 2024-12-06 11:30 | CRLHL7_ITS ---
For Patients: As a result of the Cures Act, medical imaging exams and procedure reports are released immediately into your electronic medical record. You may view this report before your referring provider. If you have questions, please contact your health care provider. BILATERAL SCREENING MAMMOGRAM WITH COMPUTER-AIDED DETECTION AND TOMOSYNTHESIS TECHNIQUE: CC and MLO views were obtained. These mammographic images have been obtained using full-field digital technique. These mammographic images were interpreted with the benefit of computer-aided detection. Breast Tomosynthesis was used in this interpretation. COMPARISON FILM: 12/05/23, 12/02/22, 11/20/21. FINDINGS: There are scattered areas of fibroglandular density IMPRESSION: There is no radiographic evidence for malignancy. ASSESSMENT: BI-RADS Category 1: Negative RECOMMENDATION: Routine screening mammogram in 1 year. A lay language report of this examination will be provided to the patient. Jeanmarie Davila M.D. Diagnostic Radiologist [email or web address] SARAH/piedad / bM/Dictated by: Jeanmarie Davila MD @ 12/06/2024 11:31:00 AM (Electronically Signed)
== END 2024-12-06 11:04 | disposition home or self-care (01) ==
LOC: MAMMO 11:04
PROVIDERS: PCP Internal Medicine; Visit Provider Internal Medicine
DX: Z12.31 Encounter for screening mammogram for malignant neoplasm of breast (principal)
CPT/HCPCS: 77063; 77067

== ENCOUNTER 2024-12-13 11:07 | Outpatient (RCR) | payer MEDICARE, SELFPAY | END 2025-06-11 23:59 | disposition home or self-care (01) | LOC: CCIC 11:07 | PROVIDERS: PCP Internal Medicine; Visit Provider Physician Assistant | DX: C50.911 Malignant neoplasm of unspecified site of right female breast (principal); Z17.1 Estrogen receptor negative status [ER-]; Z85.060 Personal history of malignant carcinoid tumor of small intestine; Z80.0 Family history of malignant neoplasm of digestive organs; G62.0 Drug-induced polyneuropathy; T45.1X5A Adverse effect of antineoplastic and immunosuppressive drugs, initial encounter | CPT/HCPCS: 99213; G0463 ==

== ENCOUNTER 2025-04-27 07:38 | Emergency (ER) | payer MEDICARE, SELFPAY ==
[2025-04-27] VITALS (23 sets, daily range): BP systolic 118–149; BP diastolic 52–91; PULSE 82–97; RESP 12–20; TEMP 36.3–38.3; O2SAT 86–98; BMI 34.1
--- OUTSIDE RECORDS SUMMARY | 2025-04-27 07:41 | XMS_ITS | Continuity of Care Document ---
Author Organization [place] [facility] Address [address] [place] [address] Care Team Providers Care List Of First Job Ideas Name Role Phone DEUCE BANKS Primary Care Provider Assessment Encounter Date Assessment Date Assessment LastModified by Organization Details LastModified Time 03/26/2025 03/26/2025 Here for blood draw lolis Not available 03/26/2025 14:35:55 Plan of Treatment Reminders Order Date Submit Date Provider Last Modified By Organization Details Last Modified Time Details Appointments [facility] 10 2024 11:20A Anshul Jackson MD Not available Not available Not available Lab unlisted lab - stone blood 2024 025 [facility] [place] [facility], [address], [place], [address], 03/26/2025 18:44:56 Referral None recorded . Procedures None recorded . Surgeries None recorded . Imaging None recorded . Medication Orders None recorded . Patient TargetsNo targets recorded. Patient Instructions Encounter Date Encounter Id Patient Instructions Last Modified By Organization Details Last Modified Time 03/26/2025 [id number] Pt to follow up with Dr. Renetta danielle Not available 03/26/2025 14:36:09 Reason for Referral None Reported. Results Created Date Observation Date Name Description Value Unit Range Abnormal Flag Note LastModifiedBy Organization Detail LastModifiedTime 03/27/2003/26/2025 XR, kidne y + urete r + bladd er EXAM: XR, KIDNEY + URETER + BLADDE R LOCATI ON: [facility] [place] DATE: 025 INDICA TION: Calcul us of kidney COMPAR ENEDELIA: None. IMPRES MALLORIE: 4 mm suspec mae calcif icatio n noted overly ing the right kidney . No discre te calcul i seen along the left kidney althou gh evalua tion of both kidney s is limite d due to overly ing stool and bowel gas. Modera te stool burden is seen throug hout the colon. Nonobs tructi ve bowel gas patter n. Severa l round calcif icatio ns overly ing the pelvis likely reflec t phlebo liths versus less likely bladde r stones . Degene rative change s are seen along the spine and hips. This report was electr onical ly interp reted by: Vale Nelson MD on 2024 at 09:45 [facility] [address], [place], [address], 03/27/2025 12:25:00 Result Notes None recorded. Problems Name Problem SNOMED Code Status Onset Date Resolution Date Notes Provider Name and Address Organization Details Recorded Time Microscop ic hematuria 265444558 Active 2011 599.72 : MICROSCOPI C HEMATURIA Not Available [facility] 0 01:57:44 Kidney stone 99545951 Active 2011 592.0 : CALCULUS-K IDNEY Not Available [facility] 0 01:57:44 Problem Notes None recorded. 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 Procedure Notes None recorded. Medical Equipment None Reported. Allergies Allergen ID Allergen Name Allergen Category Reaction Reaction Severity Criticality Documentation Date Start Date Code Code System Note Provider Name and Address Organization Details Recorded Time 176567 Penicilli n Not available Not available Not available Not available 04/24/20202011 93463 RxNorm Not Available [facility] 0 00:48:41 847379 amoxicill in medicatio n Not available Not available Not available 06/28/2023 723 RxNorm Berna Betancourt [place], [place] - [facility] 3 14:32:52 Medications Name Sig Start Date Stop Date Status Note LastModified by Organization Details LastModified Time aspirin low 81mg chw CHEW AND SWALLOW 1 TABLET BY MOUTH TWICE DAILY MEDICATIO N FOR DEEP VEIN CLOT PREVENTIO N POST SURGERY. 10/07 completed Not Available Not Available Not Available losartan 50 mg tablet TAKE 1 TABLET BY MOUTH ONCE DAILY 03/26 completed Not Available Not Available Not Available celecoxib 200 mg capsule TAKE 1 [...] 4 TO 6 HOURS NEEDED FOR PAIN 03/26 completed Not Available Not Available Not Available doxycycline hyclate 50 mg capsule 07/06 completed Not Available Not Available Not Available amlodipine 5 mg tablet TAKE 1 TABLET BY MOUTH ONCE DAILY active Not Available Not Available No t Available prochlorper azine maleate 10 mg tablet [...] TAKE 3 CAPSULES BY MOUTH AT BEDTIME 03/26 completed Not Available Not Available Not Available ibuprofen 600 mg tablet TAKE 1 [...] and Address Organization Details Last Updated DateTime 03/26/2025 168.91 cm 34.2 kg/m2 43390.36 g Nidhi Mon [facility] 03/26/2025 14:03:52 Social History Question Answer Notes LastModified by [email or web address] Details LastModified Time Tobacco Smoking Status Former Smoker Zahra ramírez [facility] 10/07/2020 11:51:54 What Is Your Level Of Caffeine Consumption? Occasional Information not available 10/07/2020 How Much Tobacco Do You Chew? None [email or web address] Information not available 10/07/2020 When Did You Quit Smoking? 16+yearssincel astcigarette [email or web address] Information not available 10/07/2020 Recreational Drug Use No [email or web address] Information not available 10/07/2020 Marital Status [email or web address] Informati on not available 10/07/2020 What Was The Date Of Your Most Recent Tobacco Screening? 03/26/2025 [email or web address] Information not available 03/26/2025 Have You Ever Been Counseled For Unhealthy Alcohol Use? No [email or web address] Information not available 06/26/2024 How Much Tobacco Do You Smoke? No [email or web address] Information not available 10/07/2020 How Many Days In The Past Year Have You Consumed 4 Or More Drinks? 0 [email or web address] Information no t available 06/26/2024 Sex: Unknown Functional Status Question Answer Note LastModified by Slice[employer]at ion Details LastModified Time Do you use any illicit or recreational drugs? No [email or web address] Information not available 06/26/2024 What is your level of alcohol consumption? Occasional [email or web address] Information not available 10/07/2020 Do you or have you ever used smokeless tobacco? Never used smokeless tobacco [email or web address] Information not available 10/07/2020 Do you or have you ever used e-cigarettes or vape? Never used electronic cigarettes [email or web address] Information not available 10/07/2020 Mental Status None recorded. Family History Relationship Description Onset Age of this Age Resolved Age Notes LastModified by Organization Details LastModified Time Father No current problems or disability [email or web address] Not available 06/26 14:24:47 Mother No current problems or disability [email or web address] Not available 06/26 14:24:47 Medical History Condition Response Diabetes N Sexually Transmitted Infection N Bleeding Disorder N High Blood Pressure [...] Total 1 Immunizations Vaccine Type Date Status Note Provider Nam e and Address Organization Details Recorded Time Influenza, split virus, quadrivalent, PF 1 completed Berna ramírez [facility] 06/26/2024 14:12:01 Influenza, high-dose, quadrivalent, PF 2 completed Not Available [facility] 03/26/2025 13:35:23 COVID-19, mRNA, LNP-S, bivalent, PF, 30 mcg/0.3 mL dose 3 completed Not Available [facility] 03/26/2025 13:35:23 Influenza, high-dose, quadrivalent, PF 3 completed Not Available [facility] 03/26/2025 13:35:23 COVID-19, mRNA, LNP-S, PF, trevon-sucrose, 30 mcg/0.3 mL 4 completed Not Available [facility] 03/26/2025 13:35:23 Pneumococcal conjugate PCV20, polysaccharide CXE613 conjugate, adjuvant, PF 4 completed Not Available [facility] 03/26/2025 13:35:23 zoster recombinant 9 completed Berna Betancourt null, [facility] 06/28/2023 14:32:34 zoster recombinant 9 completed Berna Betancourt null, [facility] 06/28/2023 14:32:34 Influenza, high-dose, quadrivalent, PF 0 completed Berna Betancourt null, [facility] 06/28/2023 14:32:34 COVID-19, mRNA, LNP-S, PF, 30 mcg/0.3 mL dose 1 completed Berna Betancourt null, [facility] 06/28/2023 14:32:34 COVID-19, mRNA, LNP-S, PF, 30 mcg/0.3 mL dose 1 completed Berna Betancourt null, [facility] 06/28/2023 14:32:35 COVID-19, mRNA, LNP-S, PF, 30 mcg/0.3 mL dose 1 completed Berna Betancourt null, [facility] 06/28/2023 14:32:35 pneumococcal polysaccharide PPV23 2 completed Berna Betancourt null, [facility] 06/28/2023 14:32:35 Tdap 1 completed Berna Betancourt null, [facility] 06/28/2023 14:32:35 Pneumococcal conjugate PCV 13 5 completed Berna Betancourt null, [facility] 06/28/2023 14:32:35 Influenza, high-dose, trivalent, PF 7 completed Berna Betancourt null, [facility] 06/28/2023 14:32:35 Influenza, high-dose, trivalent, PF 9 completed Berna Bteancourt null, [facility] 06/28/2023 14:32:35 Td (adult), 2 Lf tetanus toxoid, preservative free, adsorbed 1 completed Berna Betancourt null, [facility] 06/28/2023 14:32:35 Td (adult), 2 Lf tetanus toxoid, preservative free, adsorbed 1 completed Berna ramírez, [facility] 06/28/2023 14:32:35 Influenza, split virus, quadrivalent, PF 0 completed Berna ramírez, [facility] 06/28/2023 14:32:35 Influenza, split virus, quadrivalent, PF 8 completed Berna ramírez, [facility] 06/28/2023 14:32:35 pneumococcal polysaccharide PPV23 5 completed Berna ramírez, [facility] 06/28/2023 14:32:35 Past Encounters Encounter ID Performer Location Encounter Start Date Encounter Closed Date Diagnosis/Indication Diagnosis SNOMED-CT Code Diagnosis ICD10 Code Diagnosis Note [id number] Jared Jackson MD [facility] [address] [place] [address] 03/26/2025 13:33:37 03/27/2025 11:35:57 Kidney stone 28762347 N20.0 renal us in 8-10 monthsston e met work up and fu after with me [id number] Jared Jackson MD _[place] [address] [place] [address] 03/26/2025 14:27:13 03/28/2025 04:00:20 Kidney [facility] 95684001 N20.[facility] fu after with me Health Concerns Section Related Observation LastModified by Organization Detai ls LastModified Time None Recorded Concern Status LastModified by Organization Details LastModified Time None Recorded Payers Encounter Date Sequence Insurance Name Policy Number Policy Cutler Covered Member ID Cutler Member ID Guarantor Name 03/26/2025 1 [employer] [employer] MEDICARE COST [id number] Shahnaz Phelps [id number] Shahnaz Phelps Notes Date Note Type Note Provider Name and Address Organization Details Recorded Time 03/26/2025 text/html 79 YO F here for f/u regarding kidney stones and to review most recent KUB.NO back pain, no gross hematuria 1. Kidney Stone-She had recent CT 05/30/2024 that showed a 5 mm stones-She takes HCTZ 25 mg Q day for stone prevention.-12/18/24; stones are getting larger in both kidneys; would fu with me in 3 months with repeat KUB at the office; we woold need to talk about potential shock wave lithotripsy ( blasting the stones again) PSHx:s/p right ESWL on 03/28/19 for 8 mm upper pole stone and a number of stones in the low pole. Imaging:-12/18/24 US Renal; multiple echogenic calculi R kidney largest 8mm approx 6 in total. L kidney largest 6mm approx 4 in total.- 12/20/23: US renal: R kidney: no hydro, several probable non-obstructing renal calculi noted. L kidney: no hydro, 2 possible punctate nonobstructing renal calculi.- 07/06/22: CT: showed a couple of small under 5 mm stones in the right kidneys; no left kidney stones (same stones as in 2019 )- 12/15/2021: Renal US: showed evidence of bilateral renal calculi with at least 5 stones on the left measuring up to 9 mm and 2 stones on the right measuring up to 7 mm. No hydro noted.- 09/2021: KUB: was without evidence of nephrolithiasis.- 10/2020: CT: showed small stones 5 and 6 mm in her kidneys She takes HCTZ 25 mg Q day for stone prevention. 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
--- OUTSIDE RECORDS SUMMARY | 2025-04-27 07:41 | XMS_ITS | Data Portability ---
Author Organization [place] [facility] Address [address] [place] [address] Care Team Providers Care Collision Repair Technician Name Role Phone DEUCE BANKS Primary Care Provider Assessment Encounter Date Assessment Date Assessment LastModified by Organization Details LastModified Time 03/26/2025 03/26/2025 Here for blood draw [email or web address] Not available 03/26/2025 14:35:55 Plan of Treatment Reminders Order Date Submit Date Provider Last Modified By Organization Details Last Modified Time Details Appointments ESTABLI SHED 10 2024 11:20A M Jared Jackson MD Not available Not available Not available Lab unliste d lab - stone blood 2024 025 [facility], [address] [facility] [address], [place], [address], 03/26/2025 18:44:56 urinaly sis, dipstic k 2024 025 [email or web address] [facility], [address], [place], [address], 03/26/2025 14:13:34 unliste d lab - litholi nk 24HR urine panel 2024 025 [facility], [address], [place], [address], 04/17/2025 22:16:50 urinaly sis, dipstic k 2023 024 [email or web address] [facility], [address], [place], [address], 06/26/2024 14:42:21 urinaly sis, dipstic k 2022 023 [email or web address] [facility], [address], [place], [address], 06/28/2023 14:54:01 urinaly sis, dipstic k 2021 022 [email or web address] [facility], [address], [place], [address], 07/06/2022 16:13:45 Referral None recorde d. Procedures None recorde d. Surgeries None recorde d. Imaging US, kidney - PLEASE CALL PT TO SCHEDUL E NEEDED IN 8 - 10 MONTH ( NOV or JANUARY OF 2026 ) 2024 025 [email or web address] [facility], [address], [place], [address], 04/10/2025 08:42:08 US, renal - Please call pt to schedul e; Needed GERALDO 2023 024 DEBBIE [facility], [address], [address], [place], [address], 12/18/2024 13:09:30 US, renal 2022 023 [facility], [address], [address], [place], [address], 04/18/2024 12:46:10 Medication Orders None recorde d. Patient TargetsNo targets recorded. Patient Instructions Encounter Date Encounter Id Patient Instructions Last Modified By Organization Details Last Modified Time 03/26/2025 [id number] Pt to follow up with Dr. Renetta danielle Not available 03/26/2025 14:36:09 Reason for Referral None Reported. Results Created Date Observation Date Name Description Value Unit Range Abnormal Flag Note LastModifiedBy Organization Detail LastModifiedTime 07/06/20 22 07/06/2022 urina lysis , dipst ick Color-Status Yellow Not Available [facility] [address], [place], [address], 07/06/2022 16:12:49 07/06/20 22 07/06/2022 urina lysis , dipst ick Clarity-Stat us Clear Not Available [facility] [address], [place], [address], 07/06/2022 16:12:49 07/06/20 22 07/06/2022 urina lysis , dipst ick Glucose-Stat us Negati ve Not Available [facility] [address], [place], [address], 07/06/2022 16:12:49 07/06/20 22 07/06/2022 urina lysis , dipst ick Bilirubin-St atus Negati ve Not Available [facility] [address], [place], [address], 07/06/2022 16:12:49 07/06/20 22 07/06/2022 urina lysis , dipst ick Ketones-Stat us Negati ve Not Available [facility] [address], [place], [address], 07/06/2022 16:12:49 07/06/20 22 07/06/2022 urina lysis , dipst ick Sp Laurel-Stat us 1.015 Not Available [facility] [address], [place], [address], 07/06/2022 16:12:49 07/06/20 22 07/06/2022 urina lysis , dipst ick pH-Status 7.0 Not Available [facility] [address], [place], [address], 07/06/2022 16:12:49 07/06/20 22 07/06/2022 urina lysis , dipst ick Urobilinogen -Status 0.2 Not Available [facility] [address], [place], [address], 07/06/2022 16:12:49 07/06/20 22 07/06/2022 urina lysis , dipst ick Nitrates-Sta tus negati ve Not Available [facility] [address], [place], [address], 07/06/2022 16:12:49 07/06/20 22 07/06/2022 urina lysis , dipst ick Blood-Status Trace Not Available [facility] [address], [place], [address], 07/06/2022 16:12:49 07/06/20 22 07/06/2022 urina lysis , dipst ick Leuko-Status Trace Not Available [facility] [address], [place], [address], 07/06/2022 16:12:49 07/06/20 22 07/06/2022 urina lysis , dipst ick Specimen Type Voided Not Available [facility] [address], [place], [address], 07/06/2022 16:12:49 07/06/20 22 07/06/2022 urina lysis , dipst ick Performed by Berna Betancourt RN Not Available [facility] [address], [place], [address], 07/06/2022 16:12:49 07/06/20 22 07/06/2022 urina lysis , dipst ick Total Urine Volume 20cc Not Available [facility] [address], [place], [address], 07/06/2022 16:12:49 06/28/20 23 06/28/2023 urina lysis , dipst ick Color-Status Yellow Not Available [facility] [address], [place], [address], 06/28/2023 14:35:35 06/28/20 23 06/28/2023 urina lysis , dipst ick Clarity-Stat us Clear Not Available [facility] [address], [place], [address], 06/28/2023 14:35:35 06/28/20 23 06/28/2023 urina lysis , dipst ick Glucose-Stat us Negati ve Not Available [facility] [address], [place], [address], 06/28/2023 14:35:35 06/28/20 23 06/28/2023 urina lysis , dipst ick Bilirubin-St atus Negati ve Not Available [facility] [address], [place], [address], 06/28/2023 14:35:35 06/28/20 23 06/28/2023 urina lysis , dipst ick Ketones-Stat us Negati ve Not Available [facility] [address], [place], [address], 06/28/2023 14:35:35 06/28/20 23 06/28/2023 urina lysis , dipst ick Sp Laurel-Stat us 1.025 Not Available [facility] [address], [place], [address], 06/28/2023 14:35:35 06/28/20 23 06/28/2023 urina lysis , dipst ick pH-Status 7.0 Not Available [facility] [address], [place], [address], 06/28/2023 14:35:35 06/28/20 23 06/28/2023 urina lysis , dipst ick Nitrates-Sta tus negati ve Not Available [facility] [address], [place], [address], 06/28/2023 14:35:35 06/28/20 23 06/28/2023 urina lysis , dipst ick Blood-Status Negati ve Not Available [facility] [address], [place], [address], 06/28/2023 14:35:35 06/28/20 23 06/28/2023 urina lysis , dipst ick Leuko-Status Small Not Available [facility] [address], [place], [address], 06/28/2023 14:35:35 06/28/20 23 06/28/2023 urina lysis , dipst ick Specimen Type Voided Not Available [facility] [address], [place], [address], 06/28/2023 14:35:35 06/26/20 24 06/26/2024 urina lysis , dipst ick BLOOD Negati ve Not Available [facility] [address], [place], [address], 06/26/2024 14:12:15 06/26/20 24 06/26/2024 urina lysis , dipst ick BILIRUBIN Negati ve Not Available [facility] [address], [place], [address], 06/26/2024 14:12:15 06/26/20 24 06/26/2024 urina lysis , dipst ick UROBILINOGEN 0.2 mg/dL (Norm) Not Available [facility] [address], [place], [address], 06/26/2024 14:12:15 06/26/20 24 06/26/2024 urina lysis , dipst ick KETONES Negati ve Not Available [facility] [address], [place], [address], 06/26/2024 14:12:15 06/26/20 24 06/26/2024 urina lysis , dipst ick PROTEIN Negati ve Not Available [facility] [address], [place], [address], 06/26/2024 14:12:15 06/26/20 24 06/26/2024 urina lysis , dipst ick NITRITES Negati ve Not Available [facility] [address], [place], [address], 06/26/2024 14:12:15 06/26/20 24 06/26/2024 urina lysis , dipst ick GLUCOSE Negati ve Not Available [facility] [address], [place], [address], 06/26/2024 14:12:15 06/26/20 24 06/26/2024 urina lysis , dipst ick p.H. 7.0 Not Available [facility] [address], [place], [address], 06/26/2024 14:12:15 06/26/20 24 06/26/2024 urina lysis , dipst ick S.G. (Specific Laurel) 1.015 Not Available [facility] [address], [place], [address], 06/26/2024 14:12:15 06/26/20 24 06/26/2024 urina lysis , dipst ick LEUKOCYTES Trace (10 WBC/uL ) Not Available [facility] [address], [place], [address], 06/26/2024 14:12:15 03/26/20 25 03/26/2025 STONE BLOOD Na 139.0 mmol/ L 135.0- 145.0 Gladys pinzon n factmanohar peterson 2015. You may notic e a 1-2 mmol/ L incre ase in patie nt Na resul t. Not Available [facility] [address] [facility] [address], [place], [address], 03/26/2025 18:44:55 03/26/20 25 03/26/2025 STONE BLOOD potassium 3.9 mmol/ L 3.6-5. 0 Not Available [facility] [address] [facility] [address], [place], [address], 03/26/2025 18:44:55 03/26/20 25 03/26/2025 STONE BLOOD chloride 100.0 mmol/ L 101.0- 111.0 low Not Available [facility] [address] [facility] [address], [place], [address], 03/26/2025 18:44:55 03/26/20 25 03/26/2025 STONE BLOOD CO2 31.0 mmol/ L 21.0-3 1.0 Not Available [facility] [address] [facility] [address], [place], [address], 03/26/2025 18:44:55 03/26/20 25 03/26/2025 STONE BLOOD aniongap 8.00 0.00-1 6.00 Not Available [facility] [address] [facility] [address], [place], [address], 03/26/2025 18:44:55 03/26/20 25 03/26/2025 STONE BLOOD glu 100.10 mg/dL 70.00- 105.00 Not Available [facility] [address] [facility] [address], [place], [address], 03/26/2025 18:44:55 03/26/20 25 03/26/2025 STONE BLOOD Ca 10.3 mg/dL 8.4-10 .2 high Not Available [facility] [address] [facility] [address], [place], [address], 03/26/2025 18:44:55 03/26/20 25 03/26/2025 STONE BLOOD mg 2.0 mg/dL 1.7-2. 8 Not Available [facility] [address] [facility] [address], [place], [address], 03/26/2025 18:44:55 03/26/20 25 03/26/2025 STONE BLOOD phosphorus 3.5 mg/dL 2.5-4. 6 Not Available [facility] [address] [facility] [address], [place], [address], 03/26/2025 18:44:55 03/26/20 25 03/26/2025 STONE BLOOD uric acid 4.6 mg/dL 2.6-7. 2 Not Available [facility] [address] [facility] [address], [place], [address], 03/26/2025 18:44:55 03/26/20 25 03/26/2025 STONE BLOOD BUN 23.0 mg/dL 7.0-18 .0 high Not Available [facility] [address] [facility] [address], [place], [address], 03/26/2025 18:44:55 03/26/20 25 03/26/2025 STONE BLOOD BUN/creat 26.4 ratio 7.0-17 .0 high Not Available [facility] [address] [facility] [address], [place], [address], 03/26/2025 18:44:55 03/26/20 25 03/26/2025 STONE BLOOD creatinine 0.9 mg/dL 0.6-1. 3 Not Available [facility] [address] [facility] [address], [place], [address], 03/26/2025 18:44:55 03/26/20 25 03/26/2025 STONE BLOOD eGFR >60 mL/mi n_per _1.73 90-120 If Afric an Ameri can multi ply by 1.210 This lab resul t is being provi ded to you and your provi lashay at the same time in compl [facility] with the Centu ry Cures Act. Your provi lashay may not have had time to revie w and make recom menda tions based on the resul t. Pleas e allow up to one week for provi lashay revie w. Not Available [facility] [address] [facility] [address], [place], [address], 03/26/2025 18:44:55 03/26/20 25 03/26/2025 EUGENIA CAREY NE INTAC T-SYLWIA HE PTH 22.77 pg/mL 15.00- 65.00 This lab resul t is being provi ded to you and your provi lashay at the same time in compl iance with the Centu ry Cures Act. Your provi lashay may not have had time to revie w and make recom menda tions based on the resul t. Pleas e allow up to one week for provi lashay revie w. Not Available [facility] [address] [facility] [address], [place], [address], 03/27/2025 11:10:14 03/26/20 25 03/26/2025 urina lysis , dipst ick BLOOD Negati ve Not Available [facility] [address], [place], [address], 03/26/2025 14:05:14 03/26/20 25 03/26/2025 urina lysis , dipst ick BILIRUBIN Negati ve Not Available [facility] [address], [place], [address], 03/26/2025 14:05:14 03/26/20 25 03/26/2025 urina lysis , dipst ick UROBILINOGEN 1.0 mg/dL Not Available [facility] [address], [place], [address], 03/26/2025 14:05:14 03/26/20 25 03/26/2025 urina lysis , dipst ick KETONES Negati ve Not Available [facility] [address], [place], [address], 03/26/2025 14:05:14 03/26/20 25 03/26/2025 urina lysis , dipst ick PROTEIN Negati ve Not Available [facility] [address], [place], [address], 03/26/2025 14:05:14 03/26/20 25 03/26/2025 urina lysis , dipst ick NITRITES Negati ve Not Available [facility] [address], [place], [address], 03/26/2025 14:05:14 03/26/20 25 03/26/2025 urina lysis , dipst ick GLUCOSE Negati ve Not Available [facility] [address], [place], [address], 03/26/2025 14:05:14 03/26/20 25 03/26/2025 urina lysis , dipst ick p.H. 7.5 Not Available [facility] [address], [place], [address], 03/26/2025 14:05:14 03/26/20 25 03/26/2025 urina lysis , dipst ick S.G. (Specific Laurel) 1.015 Not Available [facility] [address], [place], [address], 03/26/2025 14:05:14 03/26/20 25 03/26/2025 urina lysis , dipst ick LEUKOCYTES Small (25 WBC/uL ) Not Available [facility] [address], [place], [address], 03/26/2025 14:05:14 04/10/20 25 04/17/2025 LITHO LINK 24HR URINE PANEL cystine, urine, qualitative COMMEN T Test not perfo rmed. Previ ous test resul ts on file. Not Available [facility] ([facility]) [address] [place], [address], 04/17/2025 22:16:50 04/10/20 25 04/17/2025 LITHO LINK 24HR URINE PANEL urine volume (preserved) 2110 mL/24 _HR 500-40 00 Not Available [facility] ([facility]) [address] [place], [address], 04/17/2025 22:16:50 04/10/20 25 04/17/2025 LITHO LINK 24HR URINE PANEL calcium oxalate saturation 1.66 6.00-1 0.00 below low normal Not Available [facility] ([facility]) [address] [place], [address], 04/17/2025 22:16:50 04/10/20 25 04/17/2025 LITHO LINK 24HR URINE PANEL calcium, urine 50 mg/24 _HR <200 Not Available [facility] ([facility]) [address] [place], [address], 04/17/2025 22:16:50 04/10/20 25 04/17/2025 LITHO LINK 24HR URINE PANEL oxalate, urine 35 mg/24 _HR 20-40 Not Available [facility] ([facility]) [address] [place], [address], 04/17/2025 22:16:50 04/10/20 25 04/17/2025 LITHO LINK 24HR URINE PANEL citrate, urine 999 mg/24 _HR >550 Not Available [facility] ([facility]) [address] [place], [address], 04/17/2025 22:16:50 04/10/20 25 04/17/2025 LITHO LINK 24HR URINE PANEL calcium phosphate saturation 0.37 0.50-2 .00 below low normal Not Available [facility] ([facility]) [address] [facility], [place], [address], 04/17/2025 22:16:50 04/10/20 25 04/17/2025 LITHO LINK 24HR URINE PANEL pH, 24 HR, urine 6.769 5.800- 6.200 above high normal Not Available [facility] ([facility]) [address] [place], [address], 04/17/2025 22:16:50 04/10/20 25 04/17/2025 LITHO LINK 24HR URINE PANEL uric acid saturation 0.10 <1.00 Not Available [facility] ([facility]) [address] [facility], [place], [address], 04/17/2025 22:16:50 04/10/20 25 04/17/2025 LITHO LINK 24HR URINE PANEL uric acid, urine 537 mg/24 _HR <750 Not Available [facility] ([facility]) [address] [place], [address], 04/17/2025 22:16:50 04/10/20 25 04/17/2025 LITHO LINK 24HR URINE PANEL sodium, urine 206 mmol/ 24_HR 50-150 above high normal Not Available [facility] ([facility]) [address] [place], [address], 04/17/2025 22:16:50 04/10/20 25 04/17/2025 LITHO LINK 24HR URINE PANEL potassium, urine 56 mmol/ 24_HR 20-100 Not Available [facility] ([facility]) [address] [place], [address], 04/17/2025 22:16:50 04/10/20 25 04/17/2025 LITHO LINK 24HR URINE PANEL magnesium, urine 65 mg/24 _HR 30-120 Not Available [facility] ([facility]) [address] [place], [address], 04/17/2025 22:16:50 04/10/20 25 04/17/2025 LITHO LINK 24HR URINE PANEL phosphorus, urine 636 mg/24 _HR 600-12 00 Not Available [facility] ([facility]) [address] [place], [address], 04/17/2025 22:16:50 04/10/20 25 04/17/2025 LITHO LINK 24HR URINE PANEL ammonium, urine 20 mmol/ 24_HR 15-60 Not Available [facility] ([facility]) [address] [place], [address], 04/17/2025 22:16:50 04/10/20 25 04/17/2025 LITHO LINK 24HR URINE PANEL chloride, urine 192 mmol/ 24_HR 70-250 Not Available [facility] ([facility]) [address] [place], [address], 04/17/2025 22:16:50 04/10/20 25 04/17/2025 LITHO LINK 24HR URINE PANEL sulfate, urine 19 mEq/2 4_HR 20-80 below low normal Not Available [facility] ([facility]) [address] [place], [address], 04/17/2025 22:16:50 04/10/20 25 04/17/2025 LITHO LINK 24HR URINE PANEL urea nitrogen, urine 7.70 g/24_ HR 6.00-1 4.00 Not Available [facility] ([facility]) [address] [place], [address], 04/17/2025 22:16:50 04/10/20 25 04/17/2025 LITHO LINK 24HR URINE PANEL protein catabolic rate 1.1 g/kg/ 24_HR 0.8-1. 4 Not Available [facility] ([facility]) [address] [facility], [place], [address], 04/17/2025 22:16:50 04/10/20 25 04/17/2025 LITHO LINK 24HR URINE PANEL creatinine, urine 1106 mg/24 _HR not applic . As of 2017, the [facility] for urine creat inine has do ed. Going forri rd, urine creat inine value s will decre ase by 17%. Refer ence range s have been updat ed for Cr24/ Kg, Ca24/ Cr24, and Cit24 /Cr24 . Resul ts from the last sampl e prior to the do e in [facility] (adam ected on 11/20 ) have been modif ied to harini t in farooq ring data over time. The origi nal Cr24 value was repor mae as 1525 and is recal culat ed as 1266; Cr24/ Kg was 16.4 and is recal culat ed as 13.6; and Ca24/ Cr24 was 149 and is recal culat ed as 180. Not Available [facility] ([facility]) [address] [facility], [place], [address], 04/17/2025 22:16:50 04/10/20 25 04/17/2025 LITHO LINK 24HR URINE PANEL creatinine/k g body weight 21.2 mg/24 _HR/k g 8.7-20 .3 above high normal Not Available [facility] ([facility]) [address] [facility], [place], [address], 04/17/2025 22:16:50 04/10/20 25 04/17/2025 LITHO LINK 24HR URINE PANEL calcium/kg body weight 1.0 mg/24 _HR/k g <4.0 Not Available [facility] ([facility]) [address] [facility], [place], [address], 04/17/2025 22:16:50 04/10/20 25 04/17/2025 LITHO LINK 24HR URINE PANEL calcium/crea tinine ratio 45 mg/g_ creat 51-262 below low normal Not Available [facility] ([facility]) [address] [facility], [place], [address], 04/17/2025 22:16:50 04/10/20 25 04/17/2025 LITHO LINK 24HR URINE PANEL comment NOTE Not Available [facility] ([facility]) [address] [facility], [place], [address], 04/17/2025 22:16:50 07/07/20 22 07/06/2022 CT, abdom en + pelvi s, w/o contr ast No observ ation record ed. [email or web address] [facility] [address], [place], [address], 07/08/2022 16:11:49 12/20/19 24 12/20/2023 US, renal No observ ation record ed. [address]/[facility] (Centralized Fax Number) [phone], [place], [address], 12/21/2023 14:27:49 12/18/19 25 12/18/2024 US, renal EXAM: US RENAL BILATE RAL LOCATI ON: [facility] [place] DATE: 025 INDICA TION: Calcul us of kidney . COMPAR ENEDELIA: 024 ultras ound study. Prior CT study dated 022 TECHNI QUE: Routin e Bilate ral Renal and Bladde r Ultras ound. FINDIN GS: RIGHT KIDNEY : Length 9.2 cm. No hydron ephros is or suspic ious renal masses . There are multip le echoge brisa calcul i, larges t measur ing 8 mm. There are approx imatel y 6 right renal calcul i. LEFT KIDNEY : Length 10.4 cm. No hydron ephros is or suspic ious left renal mass. There are multip le echoge brisa left renal calcul i, larges t measur ing 6 mm. Approx imatel y 4 total left renal calcul i. BLADDE R: Prevoi d bladde r volume estima mae at 58 mL. Bladde r wall unrema rkable . No echoge brisa bladde r calcul i. IMPRES MALLORIE: 1. Bilate ral renal calcul i. 2. No hydron ephros is. This report was electr onical ly interp reted by: DR. MONIKA AUGUSTE MD [facility] [address], [place], [address], 12/18/2024 17:57:26 12/18/19 25 12/18/2024 imagi ng/di agnos tic resul t No observ ation record ed. [facility] [address], [place], [address], 12/19/2024 13:23:18 03/27/20 25 03/26/2025 XR, kidne y + urete r + bladd er EXAM: XR, KIDNEY + URETER + BLADDE R [facility]ATI [facility]: [facility] DATE: 025 INDICA TION: Calcul us of [...] Vale Nelson MD on 2024 at 09:45 [facility] [address] [facility] [address], [place], [address], 03/27/2025 12:25:00 Result Notes Documentation Provider Name and Address Organization Details Recorded Time Xr, Kidney + Ureter + Bladder : EXAM: XR, KIDNEY + URETER + BLADDER LOCATION: [facility] DATE: 03/26/2025 INDICATION: Calculus of kidney COMPARISON: None. IMPRESSION: 4 mm suspected calcification noted overlying the right kidney. No discrete calculi seen along the left kidney although evaluation of both kidneys is limited due to overlying stool and bowel gas. Moderate stool burden is seen throughout the colon. Nonobstructive bowel gas pattern. Several round calcifications overlying the pelvis likely reflect phleboliths versus less likely bladder stones. Degenerative changes are seen along the spine and hips. This report was electronically interpreted by: Vale Nelson MD on 03/27/2025 at 09:45 Jared Jackson MD [address] [place] [address], [id number] 03/27/2025 12:25:00 Problems Name Problem SNOMED Code Status Onset Date Resolution Date Notes Provider Name and Address Organization Details Recorded Time Microscop ic hematuria 481098901 Active 2011 599.72 : MICROSCOPI C HEMATURIA Not Available [facility] 0 01:57:44 Kidney stone 99181286 Active 2011 592.0 : CALCULUS-K IDNEY Not Available [facility] 0 01:57:44 Problem Notes None recorded. Procedures Surgical History Date Name Laterality Status Provider Name and Address Organization Details Recorded Time 5 RN MATERNAL CHILD/blood draw completed Henna [facility] 03/26/2025 14:34:15 4 Urinalysis completed Berna Betancourt [facility] 06/26/2024 14:13:09 Imaging Results None recorded. Procedure Notes None recorded. Medical Equipment None Reported. Allergies Allergen ID Allergen Name Allergen Category Reaction Reaction Severity Criticality Documentation Date Start Date Code Code System Note Provider Name and Address Organization Details Recorded Time 031501 Penicilli n Not available Not available Not available Not available 04/24/20202011 70172 RxNorm Not Available [facility] 0 00:48:41 002169 amoxicill in medicatio n Not available Not available Not available 06/28/2023 723 RxNorm Berna Serafin [place], [place] - [facility] 3 14:32:52 Medications Name Sig Start [...] Updated DateTime 03/26/2025 168.91 cm 34.2 kg/m2 80753.36 g Nidhi Mon [facility] 03/26/2025 14:03:52 Date Recorded Body height Body mass index (BMI) Body weight Provider Name and Address Organization Details Last Updated DateTime 06/26/2024 168.91 cm 34.2 kg/m2 37533.36 g Gil Levine [facility] 06/26/2024 14:24:30 Date Recorded Body height Body mass index (BMI) Body weight Provider Name and Address Organization Details Last Updated DateTime 06/28/2023 168.91 cm 34.3 kg/m2 26092.95 g Berna Betancourt [facility] 06/28/2023 14:32:27 Date Recorded Body height Body mass index (BMI) Body weight Provider Name and Address Organization Details Last Updated DateTime 07/06/2022 168.91 cm 33.9 kg/m2 93004.17 g Dagmar Koroma [facility] 07/06/2022 16:09:44 Social History Question Answer Notes LastModified by Organizat ion Details LastModified Time Tobacco Smoking Status Former Smoker Zahra ramírez [facility] 10/07/2020 11:51:54 What Is Your Level Of Caffeine Consumption? Occasional [email or web address] Information not available 10/07/2020 How Much Tobacco Do You Chew? None Information not available 10/07/2020 When Did You Quit Smoking? 16+yearssincel astcigarfelix [email or web address] Information not available 10/07/2020 Recreational Drug Use No [email or web address] Information not available 10/07/2020 Marital Status [email or web address] Informati on not available 10/07/2020 What Was The Date Of Your Most Recent Tobacco Screening? 03/26/2025 [email or web address] Information not available 03/26/2025 Have You Ever Been Counseled For Unhealthy Alcohol Use? No [email or web address] Information not available 06/26/2024 How Much Tobacco Do You Smoke? No [email or web address] Information not available 10/07/2020 How Many Days In The Past Year Have You Consumed 4 Or More Drinks? 0 Information no t available 06/26/2024 Sex: Unknown Functional Status Question Answer Note LastModified by Organizat ion Details LastModified Time Do you use any illicit or recreational drugs? No [email or web address] Information not available 06/26/2024 What is your level of alcohol consumption? Occasional Information not available 10/07/2020 Do you or have you ever used smokeless tobacco? Never used smokeless tobacco [email or web address] Information not available 10/07/2020 Do you or have you ever used e-cigarettes or vape? Never used electronic cigarettes [email or web address] Information not available 10/07/2020 Mental Status None recorded. Family History Relationship Description Onset Age of this Age Resolved Age Notes LastModified by Organization Details LastModified Time Father No current problems or disability [email or web address] Not available 06/26 14:24:47 Mother No current problems or disability Not available 06/26 14:24:47 Medical History Condition Response Sexually Transmitted Infection [...] split virus, quadrivalent, PF 1 completed Berna Betancourt null, [facility] 06/26/2024 14:12:01 Influenza, high-dose, quadrivalent, PF 2 completed Not Available [facility] 03/26/2025 13:35:23 COVID-19, mRNA, LNP-S, bivalent, PF, 30 mcg/0.3 mL dose 3 completed Not Available [facility] 03/26/2025 13:35:23 Influenza, high-dose, quadrivalent, PF 3 completed Not Available [facility] 03/26/2025 13:35:23 COVID-19, mRNA, LNP-S, PF, trevon-sucrose, 30 mcg/0.3 mL 4 completed Not Available [facility] 03/26/2025 13:35:23 Pneumococcal conjugate PCV20, polysaccharide MPT902 conjugate, adjuvant, PF 4 completed Not Available [facility] 03/26/2025 13:35:23 zoster recombinant 9 completed Berna Betancourt null, [facility] 06/28/2023 14:32:34 zoster recombinant 9 completed Berna Betancourt null, [facility] 06/28/2023 14:32:34 Influenza, high-dose, quadrivalent, PF 0 completed Berna Betancourt null, [facility] 06/28/2023 14:32:34 COVID-19, mRNA, LNP-S, PF, 30 mcg/0.3 mL dose 1 completed Berna Betancourt null, [facility] 06/28/2023 14:32:34 COVID-19, mRNA, LNP-S, PF, 30 mcg/0.3 mL dose 1 completed Berna Betancourt null, [facility] 06/28/2023 14:32:35 COVID-19, mRNA, LNP-S, PF, 30 mcg/0.3 mL dose 1 completed Berna Betancourt null, [facility] 06/28/2023 14:32:35 pneumococcal polysaccharide PPV23 2 completed Berna Betancourt null, [facility] 06/28/2023 14:32:35 Tdap 1 completed Berna ramírez, [facility] 06/28/2023 14:32:35 Pneumococcal conjugate PCV 13 5 completed Berna ramírez, [facility] 06/28/2023 14:32:35 Influenza, high-dose, trivalent, PF 7 completed Berna ramírez, [facility] 06/28/2023 14:32:35 Influenza, high-dose, trivalent, PF 9 completed Berna Betancourt null, [facility] 06/28/2023 14:32:35 Td (adult), 2 Lf tetanus toxoid, preservative free, adsorbed 1 completed Berna ramírez, [facility] 06/28/2023 14:32:35 Td (adult), 2 Lf tetanus toxoid, preservative free, adsorbed 1 completed Berna ramírez, [facility] 06/28/2023 14:32:35 Influenza, split virus, quadrivalent, PF 0 completed Berna ramírez, [facility] 06/28/2023 14:32:35 Influenza, split virus, quadrivalent, PF 8 completed Berna ramírez, [facility] 06/28/2023 14:32:35 pneumococcal polysaccharide PPV23 5 [facility] 14:32:35 Past Encounters Encounter ID Performer Location Encounter Start Date Encounter Closed Date Diagnosis/Indication Diagnosis SNOMED-CT Code Diagnosis ICD10 Code Diagnosis Note [id number] MD Arlette Giraldo [address] [place] [address] 10/07/2020 11:05:48 10/07/2020 12:23:23 Kidney stone 56185549 N20.0 CT next to confirm only small stonesf/u in one year; will continue HCTZ 25 mg Q day [id number] MD Arlette Giraldo [address] [place] [address] 09/22/2021 14:50:46 09/24/2021 13:46:24 Kidney stone 58706680 N20.0 continue HCTZ 25 mgUrolith as stone prevention renal US and fu with me after [id number] MD MISAEL Giraldo_Edinheather [address] [place] [address] 07/06/2022 15:34:20 07/16/2022 10:54:17 Kidney stone 04856814 N20.0 continue prevention and fu in one yearcontin ue HCTZ 25 mg Q day [id number] MD Arlette Giraldo [address] [place] [address] 06/28/2023 14:15:49 06/30/2023 16:26:29 Kidney stone 50948573 N20.0 To prevent stones from forming or enlarging it is recommende d to: 1) increase fluids so that urine output is at least 1.5 liters every 24 hours. 2) Add 1-2 oz of lemon juice to water daily. 3) Decrease dietary salt. She will continue stone prevention . Repeat renal US in 6 months; if there is stone burden is increased, we will f/u. If the stone burden is relatively small (<5mm), f/u in 1 year. [id number] MD Arlette Giraldo [address] [place] [address] 06/26/2024 14:04:08 06/27/2024 14:00:35 Kidney stone 26053070 N20.0 no recurrence of carcinoidr enal US in 6 months; keep an eye on the stoneconti nue HCTZ 25 mg [id number] MD Arlette Giraldo [address] [place] [address] 03/26/2025 13:33:37 03/27/2025 11:35:57 Kidney stone 68869649 N20.0 renal us in 8-10 monthsston e met work up and fu after with me [id number] MD Arlette Giraldo [address] [place] [address] 03/26/2025 14:27:13 03/28/2025 04:00:20 Kidney stone 24919445 N20.0 renal us in 8-10 monthsston e met work up and fu after with me Health Concerns Section Related Observation LastModified by Organization Detai ls LastModified Time None Recorded Concern Status LastModified by Organization Details LastModified Time None Recorded Advance Directives Directive None Recorded Payers Insurance Date Sequence Insurance Name Policy Number Policy Cutler Covered Member ID Cutler Member ID Guarantor Name 03/26/2025 1 [employer] (MEDICARE REPLACEMENT/ ADVANTAGE - HMO) Shahnaz Landers Lenin [id number] Shahnaz Landers Lenin 03/29/2025 1 [place] COST [id number] Shahnaz Landers Lenin [id number] Sahhnaz Phelps Notes Date Note Type Note Provider Name and Address Organization Details Recorded Time 07/06/2022 text/html 76 yo female who presents for evaluation of nephrolithiasis. s/p right ESWL on 03/28/19 for 8 mm upper pole stone and a number of stones in the low pole.CT 10/2020 showed small stones 5 and 6 mm in her kidneysKUB 09/27 was without evidence of nephrolithiasis.Ginger l US 12/15/2021 showed evidence of bilateral renal calculi with at least 5 stones on the left measuring up to 9 mm and 2 stones on the right measuring up to 7 mm. No hydro noted. She takes HCTZ 25 mg Q day for stone prevention. 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 s/p chemo/XER CT 07/06/22 showed a couple of small under 5 mm stones in the right kidneys; no left kidney stones ( same stones as in 2019 ). Jared Jackson MD [address], [place], [address], [facility] 07/06/2022 16:25:32 06/28/2023 text/html 77 yo female her e for annual f/u regarding kidney stones PSHx:s/p right ESWL on 03/28/19 for 8 mm upper pole stone and a number of stones in the low pole. Imaging:- CT 07/06/22 showed a couple of small under 5 mm stones in the right kidneys; no left kidney stones (same stones as in 2019 )- CT 10/2020 showed small stones 5 and 6 mm in her kidneys- KUB 09/27 was without evidence of nephrolithiasis.- Renal US 12/15/2021 showed evidence of bilateral [...] access to imaging report. Jared Jackson MD [address] [place] [address],[address], [address], [facility] 06/28/2023 15:29:14 06/26/2024 text/html 78 YO F here for annual f/u regarding kidney stones She had recent CT 05/30/2024 that showed a 5 mm stones PSHx:s/p right ESWL on 03/28/19 for 8 mm upper pole stone and a number of stones in the low pole. Imaging:- 12/20/23: US renal: R kidney: no hydro, [...] 10/2020. s/p chemo/XER UA=normal Jared Jackson MD [address] [place] [address],[address], [place], [address], [facility] 06/26/2024 14:49:32 03/26/2025 text/html 79 YO F here for [...] UA-pull up imaging Jared Jackson MD [address], [place], [address], [place] [facility] 03/26/2025 14:19:34 OBGyn Episode No OBEpisode recorded.
--- OUTSIDE RECORDS SUMMARY | 2025-04-27 07:41 | XMS_ITS | Data Portability ---
Author Organization [facility] [place] Address [address] [place] [address] Assessment No assessment recorded. Plan of Treatment [...] SNOMED-CT Code Diagnosis ICD10 Code Diagnosis Note [id number] Edd Easley PA-C [facility] [address] [place] [address] 12/20/2023 13:55:02 12/22/2023 13:17:50 Pain co-occurrent and due to varicose veins of bilateral legs [id number] I83.813 Recommend bilateral mapping and H&P.GCS 20-30 mmHg Rx given today.Begi n conservati ve therapy trial. Health Concerns Section Related Observation LastModified by Organization Detai ls LastModified Time None Recorded Concern Status LastModified by Organization Details LastModified Time None Recorded Advance Directives Directive None Recorded Payers Insurance Date Sequence Insurance Name Policy Number Policy Cutler Covered Member ID Cutler Member ID Guarantor Name 12/20/2023 1 [place]PO) [id number] Shahnaz Phelps [id number] Shahnaz Phelps Notes Date Note Type Note Provider Name and Address Organization Details Recorded Time 12/20/2023 text/html Patient presents with venous insufficiency symptoms including burning, itching, cramping, restlessness. Patient has had prior vein treatment bilaterally including stripping, ablation, sclerotherapy. Edd Easley PA-C [address], [place], [address], [facility] 12/20/2023 14:59:35 OBGyn Episode No OBEpisode recorded.
--- OUTSIDE RECORDS SUMMARY | 2025-04-27 07:41 | XMS_ITS | Encounter Summary ---
Author Organization [facility] Address [address] [place] [address] Care Team Providers Care Hand Meat Salter Name Role Phone Liudmila David MD Primary Care Provider Unav elizabethable Edgar Cunningham MD Unavailable [phone] Liudmila David MD Unavailable Unavailprosper Meade Claire E PA-C Unavailable [phone] Liudmila David MD Unavailable Unavailabl erlinda Meade Bruna E PA-C Unavailable [phone] Heidy Mesa MD Primary Care Provider [phone] Encounter Details Date Type Department Care Team (Late st Contact Info) Description 06/27/2017 MyC Medical Advice [facility] [address] [place] [address] [address] [place] [phone] Liudmila David MD NO INFO AVAILABLE 06/02/23 Social History Tobacco Use Types Packs/Day Years Used Date Smoking Tobacco: Former Cigarettes 0.5 15 0 11/07/1980 - 11/07/1995 Smokeless Tobacco: Never Alcohol Use Standard Drinks/Week Comments Yes 0 (1 standard drink = 0.6 oz pur e alcohol) rare - wine once in a while Comments No Sex and Gender Information Value Date Recorded Sex Assigned at Female 10/17/2018 7:14 PM POT ROOM 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 Legal Sex Female 2:58 AM POT ROOM SUPERVISOR Gender Identity Female 10/17/2018 7:14 PM POT ROOM SUPERVISOR Sexual Orientation Straight 10/17/2018 7: 14 PM POT ROOM SUPERVISOR 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 Not on file documented as of this encounter Plan of Treatment Not on file documented as of this encounter Visit Diagnoses Not on filedocumented in this encounter Care Teams Hand Meat Salter Relationship Specialty Start Date End Date Liudmila David MD PCP - General Family Practice 02/12/14 10/06/20 [place] [address] [place] [address] PCP - Assigned PCP 12/31/18 01/09/19 Heidy Mesa MD [facility] [address] [place] [address] PCP - General Internal Medicine 10/07/20 Liudmila David MD NO INFO AVAILABLE 06/02/23 Assigned PCP 10/12/15 02/02/20 Bruna Meade PA-C [facility] [address] [place] [address], [address] [place] [address] Assigned PCP 02/03/20 03/01/20 Liudmila David MD NO INFO AVAILABLE 06/02/23 Assigned PCP 03/02/20 04/19/20 Bruna Meade PA-C [facility] [address] [facility], [address] [place] [address] Assigned PCP 04/20/20 06/11/22 documented as of this encounter
--- OUTSIDE RECORDS SUMMARY | 2025-04-27 07:41 | XMS_ITS | Data Portability ---
Author Organization [place] [facility] Address [address] [place] [address] Care Team Providers Care Physiotherapist'S Assistant Name Role Phone DEUCE BANKS Primary Care [...] d lab - stone blood 2024 025 [facility], [address], [place], [address], 03/26/2025 18:44:56 urinaly sis, dipstic k 2024 025 [email or web address] [facility], [address], [place], [address], 03/26/2025 14:13:34 unliste d lab - litholi nk 24HR urine panel 2024 025 [facility], [address], [place], [address], 04/17/2025 22:16:50 urinaly sis, dipstic k 2023 024 [email or web address] [facility], [address], [place], [address], 06/26/2024 14:42:21 urinaly sis, dipstic k 2022 023 [email or web address] [facility], [address], [place], [address], 06/28/2023 14:54:01 urinaly sis, dipstic k 2021 022 [email or web address] [facility], [address], [place], [address], 07/06/2022 16:13:45 Referral None recorde d. Procedures None recorde d. Surgeries None recorde d. Imaging US, kidney - PLEASE CALL PT TO SCHEDUL E NEEDED IN 8 - 10 MONTH ( NOV or JANUARY OF 2026 ) 2024 025 [email or web address] [facility], [address], [place], [address], 04/10/2025 08:42:08 US, renal - Please call pt to schedul e; Needed GERALDO 2023 024 [email or web address] [facility], [address], [address], [place], [address], 12/18/2024 13:09:30 US, renal 2022 023 [email or web address] [facility], [address], [address], [place], [address], 04/18/2024 12:46:10 Medication Orders None recorde d. Patient TargetsNo targets recorded. Patient Instructions Encounter Date Encounter Id Patient Instructions Last Modified By Organization Details Last Modified Time 03/26/2025 [id number] Pt to follow up with Dr. Renetta danielle Not available 03/26/2025 14:36:09 Reason for Referral None Reported. Results Created Date Observation Date Name Description Value Unit Range Abnormal Flag Note LastModifiedBy Organization Detail LastModifiedTime 07/06/20 22 07/06/2022 urina lysis , dipst ick Color-Status Yellow Not Available [facility] [address], [place], [address], 07/06/2022 16:12:49 07/06/20 22 07/06/2022 urina lysis , dipst ick Clarity-Stat us Clear Not Available [facility] [address], [place], [address], 07/06/2022 16:12:49 07/06/20 22 07/06/2022 urina lysis , dipst ick Glucose-Stat us Negati ve Not Available [facility] [address], [place], [address], 07/06/2022 16:12:49 07/06/20 22 07/06/2022 urina lysis , dipst ick Bilirubin-St atus Negati ve Not Available [facility] [address], [place], [address], 07/06/2022 16:12:49 07/06/20 22 07/06/2022 urina lysis , dipst ick Ketones-Stat us Negati ve Not Available [facility] [address], [place], [address], 07/06/2022 16:12:49 07/06/20 22 07/06/2022 urina lysis , dipst ick Sp Calais-Stat us 1.015 Not Available [facility] [address], [place], [address], 07/06/2022 16:12:49 07/06/20 22 07/06/2022 urina lysis , dipst ick pH-Status 7.0 Not Available [facility] [address], [place], [address], 07/06/2022 16:12:49 07/06/20 22 07/06/2022 urina lysis , dipst ick Urobilinogen -Status 0.2 Not Available [facility] [address], [place], [address], 07/06/2022 16:12:49 07/06/20 22 07/06/2022 urina lysis , dipst ick Nitrates-Sta tus negati ve Not Available [facility] [address], [place], [address], 07/06/2022 16:12:49 07/06/20 22 07/06/2022 urina lysis , dipst ick Blood-Status Trace Not Available [facility] [address], [place], [address], 07/06/2022 16:12:49 07/06/20 22 07/06/2022 urina lysis , dipst ick Leuko-Status Trace Not Available [facility] [address], [place], [address], 07/06/2022 16:12:49 07/06/20 22 07/06/2022 urina lysis , dipst ick Specimen Type Voided Not Available [facility] [address], [place], [address], 07/06/2022 16:12:49 07/06/20 22 07/06/2022 urina lysis , dipst ick Performed by Berna Betancourt RN Not Available [facility] [address], [place], [address], 07/06/2022 16:12:49 07/06/20 22 07/06/2022 urina lysis , dipst ick Total Urine Volume 20cc Not Available [facility] [address], [place], [address], 07/06/2022 16:12:49 06/28/20 23 06/28/2023 urina lysis , dipst ick Color-Status Yellow Not Available [facility] [address], [place], [address], 06/28/2023 14:35:35 06/28/20 23 06/28/2023 urina lysis , dipst ick Clarity-Stat us Clear Not Available [facility] [address], [place], [address], 06/28/2023 14:35:35 06/28/20 23 06/28/2023 urina lysis , dipst ick Glucose-Stat us Negati ve Not Available [facility] [address], [place], [address], 06/28/2023 14:35:35 06/28/20 23 06/28/2023 urina lysis , dipst ick Bilirubin-St atus Negati ve Not Available [facility] [address], [place], [address], 06/28/2023 14:35:35 06/28/20 23 06/28/2023 urina lysis , dipst ick Ketones-Stat us Negati ve Not Available [facility] [address], [place], [address], 06/28/2023 14:35:35 06/28/20 23 06/28/2023 urina lysis , dipst ick Sp Calais-Stat us 1.025 Not Available [facility] [address], [place], [address], 06/28/2023 14:35:35 06/28/20 23 06/28/2023 urina lysis , dipst ick pH-Status 7.0 Not Available [facility] [address], [place], [address], 06/28/2023 14:35:35 06/28/20 23 06/28/2023 urina lysis , dipst ick Nitrates-Sta tus negati ve Not Available [facility] [address], [place], [address], 06/28/2023 14:35:35 06/28/20 23 06/28/2023 urina lysis , dipst ick Blood-Status Negati ve Not Available [facility] [address], [place], [address], 06/28/2023 14:35:35 06/28/20 23 06/28/2023 urina lysis , dipst ick Leuko-Status Small Not Available [facility] [address], [place], [address], 06/28/2023 14:35:35 06/28/20 23 06/28/2023 urina lysis , dipst ick Specimen Type Voided Not Available [facility] [address], [place], [address], 06/28/2023 14:35:35 06/26/20 24 06/26/2024 urina lysis , dipst ick BLOOD Negati ve Not Available [facility] [address], [place], [address], 06/26/2024 14:12:15 06/26/20 24 06/26/2024 urina lysis , dipst ick BILIRUBIN Negati ve Not Available [facility] [address], [place], [address], 06/26/2024 14:12:15 06/26/20 24 06/26/2024 urina lysis , dipst ick UROBILINOGEN 0.2 mg/dL (Norm) Not Available [facility] [address], [place], [address], 06/26/2024 14:12:15 06/26/20 24 06/26/2024 urina lysis , dipst ick KETONES Negati ve Not Available [facility] [address], [place], [address], 06/26/2024 14:12:15 06/26/20 24 06/26/2024 urina lysis , dipst ick PROTEIN Negati ve Not Available [facility] [address], [place], [address], 06/26/2024 14:12:15 06/26/20 24 06/26/2024 urina lysis , dipst ick NITRITES Negati ve Not Available [facility] [address], [place], [address], 06/26/2024 14:12:15 06/26/20 24 06/26/2024 urina lysis , dipst ick GLUCOSE Negati ve Not Available [facility] [address], [place], [address], 06/26/2024 14:12:15 06/26/20 24 06/26/2024 urina lysis , dipst ick p.H. 7.0 Not Available [facility] [address], [place], [address], 06/26/2024 14:12:15 06/26/20 24 06/26/2024 urina lysis , dipst ick S.G. (Specific Calais) 1.015 Not Available [facility] [address], [place], [address], 06/26/2024 14:12:15 06/26/20 24 06/26/2024 urina lysis , dipst ick LEUKOCYTES Trace (10 WBC/uL ) Not Available [facility] [address], [place], [address], 06/26/2024 14:12:15 03/26/20 25 03/26/2025 STONE BLOOD Na 139.0 mmol/ L 135.0- 145.0 Gladys pinzon n factmanohar peterson 2015. You may notic e a 1-2 mmol/ L incre ase in patie nt Na resul t. Not Available [facility] [address], [place], [address], 03/26/2025 18:44:55 03/26/20 25 03/26/2025 STONE BLOOD potassium 3.9 mmol/ L 3.6-5. 0 Not Available [facility] [address], [place], [address], 03/26/2025 18:44:55 03/26/20 25 03/26/2025 STONE BLOOD chloride 100.0 mmol/ L 101.0- 111.0 low Not Available [facility] [address], [place], [address], 03/26/2025 18:44:55 03/26/20 25 03/26/2025 STONE BLOOD CO2 31.0 mmol/ L 21.0-3 1.0 Not Available [facility] [address], [place], [address], 03/26/2025 18:44:55 03/26/20 25 03/26/2025 STONE BLOOD aniongap 8.00 0.00-1 6.00 Not Available [facility] [address], [place], [address], 03/26/2025 18:44:55 03/26/20 25 03/26/2025 STONE BLOOD glu 100.10 mg/dL 70.00- 105.00 Not Available [facility] [address], [place], [address], 03/26/2025 18:44:55 03/26/20 25 03/26/2025 STONE BLOOD Ca 10.3 mg/dL 8.4-10 .2 high Not Available [facility] [address], [place], [address], 03/26/2025 18:44:55 03/26/20 25 03/26/2025 STONE BLOOD mg 2.0 mg/dL 1.7-2. 8 Not Available [facility] [address], [place], [address], 03/26/2025 18:44:55 03/26/20 25 03/26/2025 STONE BLOOD phosphorus 3.5 mg/dL 2.5-4. 6 Not Available [facility] [address], [place], [address], 03/26/2025 18:44:55 03/26/20 25 03/26/2025 STONE BLOOD uric acid 4.6 mg/dL 2.6-7. 2 Not Available [facility] [address], [place], [address], 03/26/2025 18:44:55 03/26/20 25 03/26/2025 STONE BLOOD BUN 23.0 mg/dL 7.0-18 .0 high Not Available [facility] [address], [place], [address], 03/26/2025 18:44:55 03/26/20 25 03/26/2025 STONE BLOOD BUN/creat 26.4 ratio 7.0-17 .0 high Not Available [facility] [address], [place], [address], 03/26/2025 18:44:55 03/26/20 25 03/26/2025 STONE BLOOD creatinine 0.9 mg/dL 0.6-1. 3 Not Available [facility] [address], [place], [address], 03/26/2025 18:44:55 03/26/20 25 03/26/2025 STONE BLOOD eGFR >60 mL/mi n_per _1.73 90-120 If Afric an Ameri can multi ply by 1.210 This lab resul t is being provi ded to you and your provi lashay at the same time in [facility] with the Centu ry Cures Act. Your provi lashay may not have had time to revie w and make recom menda tions based on the resul t. Pleas e allow up to one week for provi lashay revie w. Not Available [facility] [address], [place], [address], 03/26/2025 18:44:55 03/26/20 25 03/26/2025 EUGENIA CAREY [...] for provi lashay revie w. Not Available [facility] [address], [place], [address], 03/27/2025 11:10:14 03/26/20 25 03/26/2025 urina lysis , dipst ick BLOOD Negati ve Not Available [facility] [address], [place], [address], 03/26/2025 14:05:14 03/26/20 25 03/26/2025 urina lysis , dipst ick BILIRUBIN Negati ve Not Available [facility] [address], [place], [address], 03/26/2025 14:05:14 03/26/20 25 03/26/2025 urina lysis , dipst ick UROBILINOGEN 1.0 mg/dL Not Available [facility] [address], [place], [address], 03/26/2025 14:05:14 03/26/20 25 03/26/2025 urina lysis , dipst ick KETONES Negati ve Not Available [facility] [address], [place], [address], 03/26/2025 14:05:14 03/26/20 25 03/26/2025 urina lysis , dipst ick PROTEIN Negati ve Not Available [facility] [address], [place], [address], 03/26/2025 14:05:14 03/26/20 25 03/26/2025 urina lysis , dipst ick NITRITES Negati ve Not Available [facility] [address], [place], [address], 03/26/2025 14:05:14 03/26/20 25 03/26/2025 urina lysis , dipst ick GLUCOSE Negati ve Not Available [facility] [address], [place], [address], 03/26/2025 14:05:14 03/26/20 25 03/26/2025 urina lysis , dipst ick p.H. 7.5 Not Available [facility] [address], [place], [address], 03/26/2025 14:05:14 03/26/20 25 03/26/2025 urina lysis , dipst ick S.G. (Specific Calais) 1.015 Not Available [facility] [address], [place], [address], 03/26/2025 14:05:14 03/26/20 25 03/26/2025 urina lysis , dipst ick LEUKOCYTES Small (25 WBC/uL ) Not Available [facility] [address], [place], [address], 03/26/2025 14:05:14 04/10/20 25 04/17/2025 LITHO LINK 24HR URINE PANEL cystine, urine, qualitative COMMEN T Test not perfo rmed. Previ ous test resul ts on file. Not Available [facility] ([facility]) [address] [place], [address], 04/17/2025 22:16:50 04/10/20 25 04/17/2025 LITHO LINK 24HR URINE PANEL urine volume (preserved) 2110 mL/24 _HR 500-40 00 Not Available [facility] ([facility]) [address] [place], [address], 04/17/2025 22:16:50 04/10/20 25 04/17/2025 LITHO LINK 24HR URINE PANEL calcium oxalate saturation 1.66 6.00-1 0.00 below low normal Not Available [facility] ([facility]) [address] [place], [address], 04/17/2025 22:16:50 04/10/20 25 04/17/2025 LITHO LINK 24HR URINE PANEL calcium, urine 50 mg/24 _HR <200 Not Available [facility] ([facility]) [address] [place], [address], 04/17/2025 22:16:50 04/10/20 25 04/17/2025 LITHO LINK 24HR URINE PANEL oxalate, urine 35 mg/24 _HR 20-40 Not Available [facility] ([facility]) [address] [place], [address], 04/17/2025 22:16:50 04/10/20 25 04/17/2025 LITHO LINK 24HR URINE PANEL citrate, urine 999 mg/24 _HR >550 Not Available [facility] ([facility]) [address] [place], [address], 04/17/2025 22:16:50 04/10/20 25 04/17/2025 LITHO LINK 24HR URINE PANEL calcium phosphate saturation 0.37 0.50-2 .00 below low normal Not Available [facility] ([facility]) [address] [facility], [place], [address], 04/17/2025 22:16:50 04/10/20 25 04/17/2025 LITHO LINK 24HR URINE PANEL pH, 24 HR, urine 6.769 5.800- 6.200 above high normal Not Available [facility] ([facility]) [address] [place], [address], 04/17/2025 22:16:50 04/10/20 25 04/17/2025 LITHO LINK 24HR URINE PANEL uric acid saturation 0.10 <1.00 Not Available [facility] ([facility]) [address] [facility], [place], [address], 04/17/2025 22:16:50 04/10/20 25 04/17/2025 LITHO LINK 24HR URINE PANEL uric acid, urine 537 mg/24 _HR <750 Not Available [facility] ([facility]) [address] [place], [address], 04/17/2025 22:16:50 04/10/20 25 04/17/2025 LITHO LINK 24HR URINE PANEL sodium, urine 206 mmol/ 24_HR 50-150 above high normal Not Available [facility] ([facility]) [address] [place], [address], 04/17/2025 22:16:50 04/10/20 25 04/17/2025 LITHO LINK 24HR URINE PANEL potassium, urine 56 mmol/ 24_HR 20-100 Not Available [facility] ([facility]) [address] [place], [address], 04/17/2025 22:16:50 04/10/20 25 04/17/2025 LITHO LINK 24HR URINE PANEL magnesium, urine 65 mg/24 _HR 30-120 Not Available [facility] ([facility]) [address] [place], [address], 04/17/2025 22:16:50 04/10/20 25 04/17/2025 LITHO LINK 24HR URINE PANEL phosphorus, urine 636 mg/24 _HR 600-12 00 Not Available [facility] ([facility]) [address] [place], [address], 04/17/2025 22:16:50 04/10/20 25 04/17/2025 LITHO LINK 24HR URINE PANEL ammonium, urine 20 mmol/ 24_HR 15-60 Not Available [facility] ([facility]) [address] [place], [address], 04/17/2025 22:16:50 04/10/20 25 04/17/2025 LITHO LINK 24HR URINE PANEL chloride, urine 192 mmol/ 24_HR 70-250 Not Available [facility] ([facility]) [address] [place], [address], 04/17/2025 22:16:50 04/10/20 25 04/17/2025 LITHO LINK 24HR URINE PANEL sulfate, urine 19 mEq/2 4_HR 20-80 below low normal Not Available [facility] ([facility]) [address] [place], [address], 04/17/2025 22:16:50 04/10/20 25 04/17/2025 LITHO LINK 24HR URINE PANEL urea nitrogen, urine 7.70 g/24_ HR 6.00-1 4.00 Not Available [facility] ([facility]) [address] [place], [address], 04/17/2025 22:16:50 04/10/20 25 04/17/2025 LITHO LINK 24HR URINE PANEL protein catabolic rate 1.1 g/kg/ 24_HR 0.8-1. 4 Not Available [facility] ([facility]) [address] [facility], [place], [address], 04/17/2025 22:16:50 04/10/20 25 04/17/2025 LITHO LINK 24HR URINE PANEL creatinine, urine 1106 mg/24 _HR not applic . As of 2017, the [facility] for urine creat inine has do ed. Going foril rd, urine creat inine value s will decre ase by 17%. Refer ence range s have been updat ed for Cr24/ Kg, Ca24/ Cr24, and Cit24 /Cr24 . Resul ts from the last sampl e prior to the do e in [facility] (adam ected on 11/20 ) have been modif ied to harini t in farooq ring data over time. The origi nal Cr24 value was repor mae as 1525 and is recal culat ed as 1266; Cr24/ Kg was 16.4 and is recal culat ed as 13.6; and Ca24/ Cr24 was 149 and is recal culat ed as 180. Not Available [facility] ([facility]) [address] [facility], [place], [address], 04/17/2025 22:16:50 04/10/20 25 04/17/2025 LITHO LINK 24HR URINE PANEL creatinine/k g body weight 21.2 mg/24 _HR/k g 8.7-20 .3 above high normal Not Available [facility] ([facility]) [address] [facility], [place], [address], 04/17/2025 22:16:50 04/10/20 25 04/17/2025 LITHO LINK 24HR URINE PANEL calcium/kg body weight 1.0 mg/24 _HR/k g <4.0 Not Available [facility] ([facility] [address] [facility], [place], [address], 04/17/2025 22:16:50 04/10/20 25 04/17/2025 LITHO LINK 24HR URINE PANEL calcium/crea tinine ratio 45 mg/g_ creat 51-262 below low normal Not Available [facility] ([facility]) [address] [facility], [place], [address], 04/17/2025 22:16:50 04/10/20 25 04/17/2025 LITHO LINK 24HR URINE PANEL comment NOTE Not Available [facility] ([facility]) [address] [facility], [place], [address], 04/17/2025 22:16:50 07/07/20 22 07/06/2022 CT, abdom en + pelvi s, w/o contr ast No observ ation record ed. [email or web address] [facility] [address], [place], [address], 07/08/2022 16:11:49 12/20/19 24 12/20/2023 US, renal No observ ation record ed. [address]/[facility] (Centralized Fax Number) [address], [place], [address], 12/21/2023 14:27:49 12/18/19 25 12/18/2024 US, renal [...] interp reted by: DR. MONIKA AUGUSTE [facility] [address], [place], [address], 12/18/2024 17:57:26 12/18/19 25 12/18/2024 imagi ng/di agnos tic resul t No observ ation record ed. [facility] [address], [place], [address], 12/19/2024 13:23:18 03/27/20 25 03/26/2025 XR, kidne [...] Nelson MD on 2024 at 09:45 [facility] [place] [address] [facility] [address], [place], [address], 03/27/2025 12:25:00 Result Notes Documentation Provider Name and Address Organization Details Recorded Time Xr, Kidney + Ureter + Bladder : EXAM: XR, KIDNEY + URETER + BLADDER LOCATION: [facility] DATE: 03/26/2025 INDICATION: Calculus of kidney COMPARISON: [...] on 03/27/2025 at 09:45 Jared Jackson MD [address] [place] [address], [id number] 03/27/2025 12:25:00 Problems Name Problem SNOMED Code Status Onset Date Resolution Date Notes Provider Name and Address Organization Details Recorded Time Microscop ic hematuria 994770935 Active 2011 599.72 : MICROSCOPI C HEMATURIA Not Available [facility] 0 01:57:44 Kidney stone 44122315 Active 2011 592.0 : CALCULUS-K IDNEY Not Available [facility] 0 01:57:44 Problem Notes None recorded. Procedures Surgical History Date Name Laterality Status Provider Name and Address Organization Details Recorded Time 5 RENTAL AGENT/blood draw completed Henna John [facility] 03/26/2025 14:34:15 4 Urinalysis completed Berna Betancourt [facility] 06/26/2024 14:13:09 Imaging Results None recorded. Procedure Notes None recorded. Medical Equipment None Reported. Allergies Allergen ID Allergen Name Allergen Category Reaction Reaction Severity Criticality Documentation Date Start Date Code Code System Note Provider Name and Address Organization Details Recorded Time 503417 Penicilli n Not available Not available Not available Not available 04/24/20202011 51997 RxNorm Not Available [facility] 0 00:48:41 271941 amoxicill in medicatio n Not available Not available Not available 06/28/2023 723 RxNorm Berna Serafin [place], [place] - [facility] 3 14:32:52 Medications Name Sig Start [...] Updated DateTime 03/26/2025 168.91 cm 34.2 kg/m2 18784.36 g Nidhi Mon [facility] 03/26/2025 14:03:52 Date Recorded Body height Body mass index (BMI) Body weight Provider Name and Address Organization Details Last Updated DateTime 06/26/2024 168.91 cm 34.2 kg/m2 37687.36 g Gil Levine [facility] 06/26/2024 14:24:30 Date Recorded Body height Body mass index (BMI) Body weight Provider Name and Address Organization Details Last Updated DateTime 06/28/2023 168.91 cm 34.3 kg/m2 08555.95 g Berna Betancourt [facility] 06/28/2023 14:32:27 Date Recorded Body height Body mass index (BMI) Body weight Provider Name and Address Organization Details Last Updated DateTime 07/06/2022 168.91 cm 33.9 kg/m2 69537.17 g Dagmar Koroma [facility] 07/06/2022 16:09:44 Social History Question Answer Notes LastModified by Organizat ion Details LastModified Time Tobacco Smoking Status Former Smoker Zahra ramírez [facility] 10/07/2020 11:51:54 What Is Your Level Of Caffeine Consumption? Occasional [email or web address] Information not available 10/07/2020 How Much Tobacco Do You Chew? None [email or web address] Information not available 10/07/2020 When Did You Quit Smoking? 16+yearssincel astcigarfelix [email or web address] Information not available 10/07/2020 Recreational Drug Use No [email or web address] Information not available 10/07/2020 Marital Status [email or web address] Informati on not available 10/07/2020 What Was The Date Of Your Most Recent Tobacco Screening? 03/26/2025 [email or web address] Information not available 03/26/2025 Have You Ever Been Counseled For Unhealthy Alcohol Use? No [email or web address] Information not available 06/26/2024 How Much Tobacco Do You Smoke? No [email or web address] Information not available 10/07/2020 How Many Days In The Past Year Have You Consumed 4 Or More Drinks? 0 [email or web address] Information no t available 06/26/2024 Sex: Unknown Functional Status Question Answer Note LastModified by Organizat ion Details LastModified Time Do you use any illicit or recreational drugs? No Information not available 06/26/2024 What is your level of alcohol consumption? Occasional [email or web address] Information not available 10/07/2020 Do you or have you ever used smokeless tobacco? Never used smokeless tobacco [email or web address] Information not available 10/07/2020 Do you or have you ever used e-cigarettes or vape? Never used electronic cigarettes [email or web address] Information not available 10/07/2020 Mental Status None recorded. Family History Relationship Description Onset Age of this Age Resolved Age Notes LastModified by Organization Details LastModified Time Father No current problems or disability [email or web address] Not available 06/26 14:24:47 Mother No current problems or disability [email or web address] Not available 06/26 14:24:47 Medical History Condition [...] quadrivalent, PF 1 completed Berna Betancourt null, [facility] 06/26/2024 14:12:01 Influenza, high-dose, quadrivalent, PF 2 completed Not Available [facility] 03/26/2025 13:35:23 COVID-19, mRNA, LNP-S, bivalent, PF, 30 mcg/0.3 mL dose 3 completed Not Available [facility] 03/26/2025 13:35:23 Influenza, high-dose, quadrivalent, PF 3 completed Not Available [facility] 03/26/2025 13:35:23 COVID-19, mRNA, LNP-S, PF, trevon-sucrose, 30 mcg/0.3 mL 4 completed Not Available [facility] 03/26/2025 13:35:23 Pneumococcal conjugate PCV20, polysaccharide MIW005 conjugate, adjuvant, PF 4 completed Not Available [facility] 03/26/2025 13:35:23 zoster recombinant 9 completed Berna Betancourt null, [facility] 06/28/2023 14:32:34 zoster recombinant 9 completed Berna Betancourt null, [facility] 06/28/2023 14:32:34 Influenza, high-dose, quadrivalent, PF 0 completed Berna Betancourt null, [facility] 06/28/2023 14:32:34 COVID-19, mRNA, LNP-S, PF, 30 mcg/0.3 mL dose 1 completed Berna Betancourt null, [facility] 06/28/2023 14:32:34 COVID-19, mRNA, LNP-S, PF, 30 mcg/0.3 mL dose 1 completed Berna Betancourt null, [facility] 06/28/2023 14:32:35 COVID-19, mRNA, LNP-S, PF, 30 mcg/0.3 mL dose 1 completed [facility] null, [facility] 06/28/2023 14:32:35 pneumococcal polysaccharide PPV23 2 completed Berna Betancourt null, [facility] 06/28/2023 14:32:35 Tdap 1 completed Berna ramírez, [facility] 06/28/2023 14:32:35 Pneumococcal conjugate PCV 13 5 completed Berna ramírez, [facility] 06/28/2023 14:32:35 Influenza, high-dose, trivalent, PF 7 completed Berna ramírez, [facility] 06/28/2023 14:32:35 Influenza, high-dose, trivalent, PF 9 completed Berna Betancourt null, [facility] 06/28/2023 14:32:35 Td (adult), 2 Lf tetanus toxoid, preservative free, adsorbed 1 completed Brena ramírez, [facility] 06/28/2023 14:32:35 Td (adult), 2 Lf tetanus toxoid, preservative free, adsorbed 1 completed Berna ramírez, [facility] 06/28/2023 14:32:35 Influenza, split virus, quadrivalent, PF 0 completed Berna ramírez, [facility] 06/28/2023 14:32:35 Influenza, split virus, quadrivalent, PF 8 completed Berna ramírez, [facility] 06/28/2023 14:32:35 pneumococcal polysaccharide PPV23 5 [facility] 14:32:35 Past Encounters Encounter ID Performer Location Encounter Start Date Encounter Closed Date Diagnosis/Indication Diagnosis SNOMED-CT Code Diagnosis ICD10 Code Diagnosis Note [id number] MD Arlette Giraldo [address] [place] [address] 10/07/2020 11:05:48 10/07/2020 12:23:23 Kidney stone 94383260 N20.0 CT next to confirm only small stonesf/u in one year; will continue HCTZ 25 mg Q day [id number] MD Arlette Giraldo [address] [place] [address] 09/22/2021 14:50:46 09/24/2021 13:46:24 Kidney stone 89728110 N20.0 continue HCTZ 25 mgUrolith as stone prevention renal US and fu with me after [id number] MD MISAEL Giraldo_Edinheather [address] [place] [address] 07/06/2022 15:34:20 07/16/2022 10:54:17 Kidney stone 87940160 N20.0 continue prevention and fu in one yearcontin ue HCTZ 25 mg Q day [id number] MD Arlette Giraldo [address] [place] [address] 06/28/2023 14:15:49 06/30/2023 16:26:29 Kidney stone 10915363 N20.0 To prevent stones from forming or [...] relatively small (<5mm), f/u in 1 year. [id number] MD Arlette Giraldo [address] [place] [address] 06/26/2024 14:04:08 06/27/2024 14:00:35 Kidney stone [id number] N20.0 no recurrence of carcinoidr enal US in 6 months; keep an eye on the stoneconti nue HCTZ 25 mg [id number] MD Arlette Giraldo [address] [place] [address] 03/26/2025 13:33:37 03/27/2025 11:35:57 Kidney stone [id number] N20.0 renal us in 8-10 monthsston e met work up and fu after with me [id number] MD Arlette Giraldo [address] [place] [address] 03/26/2025 14:27:13 03/28/2025 04:00:20 Kidney stone [id number] N20.0 renal us in 8-10 monthsston e [...] REPLACEMENT/ ADVANTAGE - HMO) Shahnaz Landers Lenin [id number] Shahnaz Landers Lenin 03/29/2025 1 [place] MEDICARE COST [id number] Shahnaz Landers Lenin [id number] Shahnaz Phelps Notes Date Note Type Note [...] in 2019 ). Jared Jackson MD [address] [facility],[address], [place], [address], [facility] 07/06/2022 16:25:32 06/28/2023 text/html 77 yo [...] access to imaging report. Jared Jackson MD [address] [place] [address],[address], [address], [facility] 06/28/2023 15:29:14 06/26/2024 text/html 78 YO [...] 10/2020. s/p chemo/XER UA=normal Jared Jackson MD [address] [place] [address],[address], [place], [address], [facility] 06/26/2024 14:49:32 03/26/2025 text/html 79 YO [...] UA-pull up imaging Jared Jackson MD [address] [facility],[address], [place], [address], [place] [facility] 03/26/2025 14:19:34 OBGyn Episode No OBEpisode recorded.
--- OUTSIDE RECORDS SUMMARY | 2025-04-27 07:41 | XMS_ITS | Encounter Summary ---
Author Organization [facility] Address [address] [place] [address] Care Team Providers Care Seat Mender Name Role Phone Liudmila David MD Primary Care Provider Unav ailable Liudmila David MD Unavailable UnavailBruna Giles PA-C Unavailable [phone] Liudmila David MD Unavailable UnavailBruna Giles PA-C Unavailable [phone] Heidy Mesa MD Primary Care Provider Encounter Details Date Type Department Care Team (Late st Contact Info) Description 03/20/2019 MyC Medical Advice [facility] [address] [place] [address] [address] [place] [id number] Liudmila David MD NO INFO AVAILABLE 06/02/23 Social History Tobacco Use Types Packs/Day Years Used Date Smoking Tobacco: Former Cigarettes 0.5 15 0 11/07/1980 - 11/07/1995 Smokeless Tobacco: Never Alcohol Use Standard Drinks/Week Comments Yes 0 (1 standard drink = 0.6 oz pur e alcohol) Once per week PHQ-2 Answer Date Recorded PHQ-2 Score 0 02/07/2019 Comments No Sex and Gender Information Value Date Recorded Sex Assigned at Female 10/17/2018 7:14 PM MANUFACTURING SR ENGINEER Legal Sex Female 2:58 AM MANUFACTURING SR ENGINEER Gender Identity Female 10/17/2018 7:14 PM MANUFACTURING SR ENGINEER Sexual Orientation Straight 10/17/2018 7: 14 PM MANUFACTURING SR ENGINEER 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 Not on file documented as of this encounter Miscellaneous Notes [...] on filedocumented in this encounter Care Teams Seat Mender Relationship Specialty Start Date End Date Liudmila David MD PCP - General Family Practice 02/12/14 10/06/20 Heidy Mesa MD [facility] [address] [place] [address] PCP - General Internal Medicine 10/07/20 Liudmila David MD NO INFO AVAILABLE 06/02/23 Assigned PCP 10/12/15 02/02/20 Bruna Meade PA-C [facility] [address] [facility] [place] [address] Assigned PCP 02/03/20 03/01/20 Liudmila David MD NO INFO AVAILABLE 06/02/23 Assigned PCP 03/02/20 04/19/20 Bruna Meade PA-C [facility] [address] [facility] [place] [address] Assigned PCP 04/20/20 06/11/22 documented as of this encounter
--- OUTSIDE RECORDS SUMMARY | 2025-04-27 07:41 | XMS_ITS | Clinical Summary ---
Author Organization [facility] Address [address] [place] [address] Care Team Providers Care Checkering Machine Operator Name Role Phone Heidy Mesa MD Primary Care Provider [phone] Allergies Active Allergy Reactions Criticality Noted Date Comments Amoxicillin 03/01/2016 Itching rash Imidazole Antifungals 03/21/1999 hives Penicillins 12/18/2001 hives Medications Multiple Vitamins-Minera ls (MULTIVITAMIN OR) Take 1 tablet by mouth daily Active triamcinolone (KENALOG) 0.1 % creamIndication s:Dermatitis Apply topically 2 times daily 30 g 8 Active hydrochlorothia zide (HYDRODIURIL) 25 MG tabletIndicatio ns:Essential hypertension, benign Take 1 tablet (25 mg) by mouth daily 90 tablet 3 9 Active losartan (COZAAR) 100 MG tabletIndicatio ns:Essential hypertension, benign Take 1 tablet (100 mg) by mouth daily 90 tablet 3 9 Active Active Problems Problem Noted Date Diagnosed Date Venous stasis dermatitis of both lower extremiti es 05/19/2017 Abnormal glucose 02/11/2017 History of malignant carcinoid tumor 04/17/2015 Calculus of kidney 03/28/2012 ACP (advance care planning) 02/26/2012 Overview (02/18/2016): Advance Care Planning 02/18/2016: ACP Review of Chart / Resources Provided: Reviewed chart for advance care plan. Shahnaz Glasgow has no plan or code status on file. Discussed available resources and provided with information. Confirmed code status reflects current choices pending further ACP discussions. Confirmed/documented legally designated decision makers. Added by July Keenan Diagnosis updated by automated process. Provider to review and confirm. Essential hypertension, benign 02/25/2009 Obesity 12/11/2007 Overview (08/08/2015): Problem list name updated by automated process. 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 Please review for accuracy Osteoarthritis 07/14/2004 Overview (08/07/2015): Problem list name updated by automated process. Provider to review History of colonic polyps Overview (08/07/2015): Problem list name updated by automated process. Provider to review Diverticulosis of large intestine Overview (08/07/2015): Problem list name updated by automated process. Provider to review Resolved Problems Problem Noted Date Diagnosed Date Resolved Date Malignant neoplasm of ascending colon 12/27/2018 03/19/2019 Carcinoid tumor 07/31/2014 04/17/2015 Health Usp 2012 04/23/2024 Overview (08/14/2013): State Tier Level: Tier 2 Status: n/a Crop Puller: See Letters for [facility] Care Plan iamSCIATICA 06/06/2006 12/11/2007 Absence of menstruation 04/08/2003 02/02/2008 Trigger finger, acquired 04/08/200302/2008 Overview (08/07/2015): Problem list name updated by automated process. Provider to review Other acne 06/23/2016 Immunizations Immunization Administration Dates Next Due Influenza (High Dose) Trivalent,PF (Fluzone) Influenza (IIV3) PF 08/27/1998 Influenza Vaccine >6 months,quad, PF 09/27/2018 Pneumo Conj 13-V (2010&after) 02/27/2015 Pneumococcal 23 valent 02/26/2012 TD,PF 7+ (Tenivac) 03/13/2001,12/08/1990 TDAP Vaccine (Boostrix) 03/29/2011 Zoster recombinant adjuvanted (Shingrix) 019,02/12/2019 Family History Medical History Relation Comments [...] School Help Needed Not on file 08/21 Comments No Sex and Gender Information Value Date Recorded Sex Assigned at Female 10/17/2018 7:14 PM DOOR FITTER Legal Sex Female 2:58 AM DOOR FITTER Gender Identity Female 10/17/2018 7:14 PM DOOR FITTER Sexual Orientation Straight 10/17/2018 7: 14 PM DOOR FITTER 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 Not on file Last Filed Vital Signs Vital Sign Reading Time Taken Comments Blood Pressure 118/74 06/09/2019 10:18 AM CDT Pulse 74 06/09/2019 10:18 AM CDT Temperature 36.6 C (97.9 F) 06/09/2019 10:18 AM CDT Respiratory Rate 20 06/04/2019 6:20 PM CDT Oxygen Saturation 97% 06/09/2019 10:18 AM CDT Inhaled Oxygen Concentration - - Weight 96.9 kg (213 lb 9.6 oz) 06/09/2019 10:18 AM CDT Height 167.6 cm (5' 6) 06/09/2019 10:18 AM CDT Body Mass Index 34.48 06/09/2019 10:18 AM CDT Plan of Treatment Not on file Medical Devices Implanted Type Area Learning And Development Manager Device Identifier Shelf Expiration Date Model / Serial / Lot Stent Ureteral Contour Soft Percuflex [id number] Implanted:Qty : 1 on 03/28/2019 by Jared Jackson MD at [facility] Stent Right: Ureter [employer] 11/26/2021 [id number] / / [id number] Stent Ureteral Dbl Pigtail Inlay [id number] Implanted:Qty : 1 on 06/08/2012 by Jared Jackson MD at [facility] Right: Ureter 03/08/2017 [id number] / / [id number] M[address] Hernia 3.1x4.7 Oval Sm [id number] Implanted:Qty : 1 on 05/02/2015 by Cheikh Barcenas MD at [facility] N/A: Abdomen CR [employer] 01/04/2017 [id number] / / [id number] Explanted Type Area Learning And Development Manager Device Identifier Shelf Expiration Date Model / Serial / Lot Stent Ureteral Contour Soft Percuflex [id number] Explanted:Qty: 1 on 03/28/2019 by Jared Jackson MD at [facility] Stent Right: Ureter [employer] 11/19/2021 [id number] / / [id number] Insurance [employer] MEDICARE ADVANTAGE [facility] MEDIC[facility] ADVANTAGE Advance Directives For more information, please contact: [phone] Documents on File Type Date Recorded Patient Food Production Supervisor Expl anation Advance Directives and Livin g Will 02/07/2019 9:34 AM Power of Assembly Inspector 02/07/2019 9:34 AM * Full Code (Latest Code Status on File) Date Activated Date Inactivated Comments 08/03/2014 9:14 AM 10/25/2018 6:31 AM * Full Code Date Activated Date Inactivated Comments 07/31/2014 3:56 PM 08/03/2014 9:14 AM Care Teams Checkering Machine Operator Relationship Specialty Start Date End Date Heidy Mesa MD [address] [address] PCP - General Internal Medicine 10/07/20
--- OUTSIDE RECORDS SUMMARY | 2025-04-27 07:41 | XMS_ITS | Continuity of Care Document ---
Author Organization [place] [facility] [place] [facility], [facility] Address [address] [place] [address] Care Team Providers Care Ticker Installer Name Role Phone DEUCE BANKS Primary Care Provider Assessment No assessment recorded. Plan of Treatment Reminders Order Date Submit Date Provider Last Modified By Organization Details Last Modified Time Details Appointments ESTABLI SHED 10 2024 11:20A Anshul Jackson MD Not available Not available Not available Lab urinaly sis, dipstic k 2024 025 [email or web address] [facility], [address], [place], [address], 03/26/2025 14:13:34 unliste d lab - [employer] nk 24HR urine panel 2024 025 [facility], [address], [place], [address], 04/17/2025 22:16:50 Referral None recorde d. Procedures None recorde d. Surgeries None recorde d. Imaging US, kidney - PLEASE CALL PT TO SCHEDUL E NEEDED IN 8 - 10 MONTH ( NOV or JANUARY OF 2026 ) 2024 025 [email or web address] [facility] [place], [address] [place], [address], 04/10/2025 08:42:08 Medication Orders None recorde d. Patient TargetsNo targets recorded. Patient InstructionsNo instructions recorded. Reason for Referral None Reported. Results Created Date Observation Date Name Description Value Unit Range Abnormal Flag Note LastModifiedBy Organization Detail LastModifiedTime 03/26/20 25 03/26/2025 urina lysis , dipst ick BLOOD Negati ve Not Available [facility] [address], [place], [address], 03/26/2025 14:05:14 03/26/20 25 03/26/2025 urina lysis , dipst ick BILIRUBIN Negati ve Not Available [facility] [address], [place], [address], 03/26/2025 14:05:14 03/26/20 25 03/26/2025 urina lysis , dipst ick UROBILINOGEN 1.0 mg/dL Not Available [facility] [address], [place], [address], 03/26/2025 14:05:14 03/26/20 25 03/26/2025 urina lysis , dipst ick KETONES Negati ve Not Available [facility] [address], [place], [address], 03/26/2025 14:05:14 03/26/20 25 03/26/2025 urina lysis , dipst ick PROTEIN Negati ve Not Available [facility] [address], [place], [address], 03/26/2025 14:05:14 03/26/20 25 03/26/2025 urina lysis , dipst ick NITRITES Negati ve Not Available [facility] [address], [place], [address], 03/26/2025 14:05:14 03/26/20 25 03/26/2025 urina lysis , dipst ick GLUCOSE Negati ve Not Available [facility] [address], [place], [address], 03/26/2025 14:05:14 05/20/03/26/2025 urina lysis , dipst ick p.H. 7.5 Not Available [facility] [address], [place], [address], 03/26/2025 14:05:14 03/26/20 25 03/26/2025 urina lysis , dipst ick S.G. (Specific [place]) 1.015 Not Available [facility] [address], [place], [address], 03/26/2025 14:05:14 03/26/20 25 03/26/2025 urina lysis , dipst ick LEUKOCYTES Small (25 WBC/uL ) Not Available [facility] [address], [place], [address], 03/26/2025 14:05:14 03/27/20 25 03/26/2025 XR, kidne y + [...] Vale Nelson MD on 2024 at 09:45 [facility] [place] [address] [place] [address] [address], [place], [address], 03/27/2025 12:25:00 Result Notes None recorded. Problems Name Problem SNOMED Code Status Onset Date Resolution Date Notes Provider Name and Address Organization Details Recorded Time Microscop ic hematuria 344341598 Active 2011 599.72 : MICROSCOPI C HEMATURIA Not Available [facility] 0 01:57:44 Kidney stone 69261521 Active 2011 592.0 : CALCULUS-K IDNEY Not Available [facility] 0 01:57:44 Problem Notes None recorded. Procedures Surgical History Date Name Laterality Status Provider Name and Address Organization Details Recorded Time 5 MANAGEMENT TECH/blood draw completed Henna John [facility] 03/26/2025 14:34:15 4 Urinalysis completed Berna Betancourt [facility] 06/26/2024 14:13:09 Imaging Results None recorded. Procedure Notes None recorded. Medical Equipment None Reported. Allergies Allergen ID Allergen Name Allergen Category Reaction Reaction Severity Criticality Documentation Date Start Date Code Code System Note Provider Name and Address Organization Details Recorded Time 476183 Penicilli n Not available Not available Not available Not available 04/24/20202011 44074 RxNorm Not Available [facility] 0 00:48:41 263831 amoxicill in medicatio n Not available Not available Not available 06/28/2023 723 RxNorm Berna ramírez [facility] 3 14:32:52 Medications Name Sig Start [...] Updated DateTime 03/26/2025 168.91 cm 34.2 kg/m2 86126.36 g Nidhi NUNE[facility] - [facility] 03/26/2025 14:03:52 Social History Question Answer Notes LastModified by Organizat ion Details LastModified Time Tobacco Smoking Status Former Smoker Zahra Granados [facility] 10/07/2020 11:51:54 What Is Your Level Of Caffeine Consumption? Occasional [email or web address] Information not available 10/07/2020 How Much Tobacco Do You Chew? None [email or web address] Information not available 10/07/2020 When Did You Quit Smoking? 16+yearssincel astcigarette Information not available 10/07/2020 Recreational Drug Use No [email or web address] Information not available 10/07/2020 Marital Status Informati on not available 10/07/2020 What Was The Date Of Your Most Recent Tobacco Screening? 03/26/2025 [email or web address] Information not available 03/26/2025 Have You Ever Been Counseled For Unhealthy Alcohol Use? No [email or web address] Information not available 06/26/2024 How Much Tobacco Do You Smoke? No Information not available 10/07/2020 How Many Days [...] used smokeless tobacco? Never used smokeless tobacco [email or web address] Information not available 10/07/2020 Do you or have you ever used e-cigarettes or vape? Never used electronic cigarettes [email or web address] Information not available 10/07/2020 Mental Status None recorded. Family History Relationship Description Onset Age of this Age Resolved Age Notes LastModified by Organization Details LastModified Time Father No current problems or disability [email or web address] Not available 06/26 14:24:47 Mother No current [...] split virus, quadrivalent, PF 1 [facility] 14:12:01 Influenza, high-dose, quadrivalent, PF 2 completed Not Available [facility] 03/26/2025 13:35:23 COVID-19, mRNA, LNP-S, bivalent, PF, 30 mcg/0.3 mL dose 3 completed Not Available [facility] 03/26/2025 13:35:23 Influenza, high-dose, quadrivalent, PF 3 completed Not Available [facility] 03/26/2025 13:35:23 COVID-19, mRNA, LNP-S, PF, trevon-sucrose, 30 mcg/0.3 mL 4 completed Not Available [facility] 03/26/2025 13:35:23 Pneumococcal conjugate PCV20, polysaccharide FDP092 conjugate, adjuvant, PF 4 completed Not Available [facility] 03/26/2025 13:35:23 zoster recombinant 9 [facility]/28[facility]23 14:32:34 zoster recombinant 9 completed Berna ramírez [facility] 06/28/2023 14:32:34 Influenza, high-dose, quadrivalent, PF 0 completed Berna ramírez [facility] 06/28/2023 14:32:34 COVID-19, mRNA, LNP-S, PF, 30 mcg/0.3 mL dose 1 completed Berna ramírez [facility] 06/28/2023 14:32:34 COVID-19, mRNA, LNP-S, PF, 30 mcg/0.3 mL dose 1 completed Berna ramírez [facility] 06/28/2023 14:32:35 COVID-19, mRNA, LNP-S, PF, 30 mcg/0.3 mL dose 1 completed Berna ramírez, [facility] 06/28/2023 14:32:35 pneumococcal polysaccharide PPV23 2 completed Berna ramírez, [facility] 06/28/2023 14:32:35 Tdap 1 completed Berna ramírez, [facility] 06/28/2023 14:32:35 Pneumococcal conjugate PCV 13 5 completed Berna ramírez, [facility] 06/28/2023 14:32:35 Influenza, high-dose, trivalent, PF 7 completed Berna ramírez, [facility] 06/28/2023 14:32:35 Influenza, high-dose, trivalent, PF 9 [facility] 14:32:35 Td (adult), 2 Lf tetanus toxoid, preservative free, adsorbed 1 completed Berna ramírez, [facility] 06/28/2023 14:32:35 Td (adult), 2 Lf tetanus toxoid, preservative free, adsorbed 1 completed Berna ramírez, [facility] 06/28/2023 14:32:35 Influenza, split virus, quadrivalent, PF 0 completed Berna ramírez, [facility] 06/28/2023 14:32:35 Influenza, split virus, quadrivalent, PF 8 completed Berna ramírez, [facility] 06/28/2023 14:32:35 pneumococcal polysaccharide PPV23 5 [facility]/28[facility] 14:32:35 Past Encounters Encounter ID Performer Location Encounter Start Date Encounter Closed Date Diagnosis/Indication Diagnosis SNOMED-CT Code Diagnosis ICD10 Code Diagnosis Note [id number] Jared Jackson MD [facility] [address] [place], [place] [address] 03/26/2025 13:33:37 03/27/2025 11:35:57 Kidney stone 98129603 N20.0 renal us in 8-10 monthsalessandro coffey met work up and fu after with ok [id number] Jared Jackson MD [facility] [address] [place] [address] 03/26/2025 14:27:13 03/28/2025 04:00:20 Kidney stone 92566420 N20.0 renal us in 8-10 monthsalessandro coffey met work up and fu after with me Health Concerns Section Related Observation LastModified by Organization Detai ls LastModified Time None Recorded Concern Status LastModified by Organization Details LastModified Time None Recorded Payers Encounter Date Sequence Insurance Name Policy Number Policy Cutler Covered Member ID Cutler Member ID Guarantor Name 03/26/2025 1 [place] - MEDICARE COST [id number] Shahnaz Phelps [id number] Shahnaz Phelps Notes Date Note Type Note [...] chemo/XER [facility] Jared Jackson MD [address] [place] [address],[address], [place], [address], [place] [facility] 03/26/2025 14:19:34 OBGyn Episode No OBEpisode recorded.
--- OUTSIDE RECORDS SUMMARY | 2025-04-27 07:41 | XMS_ITS | Encounter Summary ---
Author Organization [facility] Address [address] [place] [address] Care Team Providers Care Injection Moulding Machine Operator Name Role Phone Liudmila David MD Primary Care Provider Unav Edgar Schultz MD Unavailable [phone] Liudmila David MD Unavailable Unavailprosper Meade Claire E PA-C Unavailable [phone] Liudmila David MD Unavailable Unavailabl erlinda Meade Bruna E PA-C Unavailable [phone] Heidy Mesa MD Primary Care Provider + [phone] Encounter Details Date Type Department Care Team (Late st Contact Info) Description 05/28/2014 Orders Only [address] [phone] Social History Tobacco Use Types Packs/Day Years Used Date Smoking Tobacco: Former Cigarettes Q uit: 11/07/1995 Smokeless Tobacco: Never Alcohol Use Standard Drinks/Week Comments Yes 0 (1 standard drink = 0.6 oz pur e alcohol) rare Comments No Sex and Gender Information Value Date Recorded Sex Assigned at Female 10/17/2018 7:14 PM CANE FLUME WATCHMAN Legal Sex Female 2:58 AM CANE FLUME WATCHMAN Gender Identity Female 10/17/2018 7:14 PM CANE FLUME WATCHMAN Sexual Orientation Straight 10/17/2018 7: 14 PM CANE FLUME WATCHMAN 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 Not on file documented as of this encounter Plan of Treatment Not on file documented as of this encounter Visit Diagnoses Not on filedocumented in this encounter Care Teams Injection Moulding Machine Operator Relationship Specialty Start Date End Date Liudmila David MD PCP - General Family Practice 02/12/14 10/06/20 [place] [address] [place] [address] PCP - Assigned PCP 12/31/18 01/09/19 Heidy Mesa MD [facility] [address] [place] [address] PCP - General Internal Medicine 10/07/20 Liudmila David MD NO INFO AVAILABLE 06/02/23 Assigned PCP 10/12/15 02/02/20 Bruna Meade PA-C [facility] [address] [facility] [place] [address] Assigned PCP 02/03/20 03/01/20 Liudmila David MD NO INFO AVAILABLE 06/02/23 Assigned PCP 03/02/20 04/19/20 Bruna Meade PA-C [facility] [address] [facility] [place] [address] Assigned PCP 04/20/20 06/11/22 documented as of this encounter
--- OUTSIDE RECORDS SUMMARY | 2025-04-27 07:41 | XMS_ITS | Encounter Summary ---
Author Organization [facility] Address [address] [place] [address] Care Team Providers Care Dissolver Operator Name Role Phone Liudmila David MD Primary Care Provider Unav Edgar Schultz MD Unavailable [phone] Liudmila David MD Unavailable Unavailprosper Meade Claire E PA-C Unavailable [phone] Liudmila David MD Unavailable Unavailabl e Deshaun Bruna E PA-C Unavailable [phone] Heidy Mesa MD Primary Care Provider + [phone] Reason for Visit * Reason Comments Medication Refill Encounter Details Date Type Department Care Team (Late st Contact Info) Description 03/03/2014 Refill [facility] [address] [place] [address] [address] [place] [phone] Liudmila David MD NO INFO AVAILABLE 06/02/23 Medication Refill Social History Tobacco Use Types Packs/Day Years Used Date Smoking Tobacco: Former Cigarettes Q uit: 11/07/1995 Smokeless Tobacco: Never Alcohol Use Standard Drinks/Week Comments Yes 0 (1 standard drink = 0.6 oz pur e alcohol) rare Comments No Sex and Gender Information Value Date Recorded Sex Assigned at Female 10/17/2018 7:14 PM LINUX DEVELOPER Legal Sex Female 2:58 AM LINUX DEVELOPER Gender Identity Female 10/17/2018 7:14 PM LINUX DEVELOPER Sexual Orientation Straight 10/17/2018 7: 14 PM LINUX DEVELOPER Occupation Industry Job Start Date Job End [...] Primary documented in this encounter Care Teams Dissolver Operator Relationship Specialty Start Date End Date Liudmila David MD PCP - General Family Practice 02/12/14 10/06/20 [place] [address] [facility] [place] [address] PCP - Assigned PCP 12/31/18 01/09/19 Heidy Mesa MD [facility] - [address] [address] PCP - General Internal Medicine 10/07/20 Liudmila David MD NO INFO AVAILABLE 06/02/23 Assigned PCP 10/12/15 02/02/20 Bruna Meade PA-C [facility] [address] [facility] [place] [address] Assigned PCP 02/03/20 03/01/20 Liudmila David MD NO INFO AVAILABLE 06/02/23 Assigned PCP 03/02/20 04/19/20 Bruna Meade PA-C [facility] [address] [facility] [place], [place] [id number] Assigned PCP 04/20/20 06/11/22 documented as of this encounter
--- OUTSIDE RECORDS SUMMARY | 2025-04-27 07:41 | XMS_ITS | Encounter Summary ---
Author Organization [facility] Address [address] [place] [address] Care Team Providers Care Hot Patcher Name Role Phone Liudmila David MD Primary Care Provider Unav ailable Liudmila David MD Unavailable UnavailBruna Giles PA-C Unavailable [phone] Liudmila David MD Unavailable UnavailBruna Giles PA-C Unavailable [phone] Heidy Mesa MD Primary Care Provider Encounter Details Date Type Department Care Team (Late st Contact Info) Description 07/27/2019 MyC Medical Advice [facility] [address] [place] [address] [address] [place] [phone] Liudmila David MD NO INFO AVAILABLE 06/02/23 [...] Sex Assigned at Female 10/17/2018 7:14 PM DIGESTER OPERATOR Legal Sex Female 2:58 AM DIGESTER OPERATOR Gender Identity Female 10/17/2018 7:14 PM DIGESTER OPERATOR Sexual Orientation Straight 10/17/2018 7: 14 PM DIGESTER OPERATOR 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 Not on file documented as of this encounter Plan of Treatment Not on file documented as of this encounter Visit Diagnoses Not on filedocumented in this encounter Care Teams Hot Patcher Relationship Specialty Start Date End Date Liudmila David MD PCP - General Family Practice 02/12/14 10/06/20 Heidy Mesa MD [facility] [address] [place] [address] PCP - General Internal Medicine 10/07/20 Liudmila David MD NO INFO AVAILABLE 06/02/23 Assigned PCP 10/12/15 02/02/20 Bruna Meade PA-C [facility] [address] [facility], [address] [place] [address] Assigned PCP 02/03/20 03/01/20 Liudmila David MD NO INFO AVAILABLE 06/02/23 Assigned PCP 03/02/20 04/19/20 Bruna Meade PA-C [facility] [address] [facility] [place] [address] Assigned PCP 04/20/20 06/11/22 documented as of this encounter
--- NOTE | 2025-04-27 07:59 | CRLHL7_ITS ---
For Patients: As a result of the Century Cures Act, medical imaging exams and procedure reports are released immediately into your electronic medical record. You may view this report before your referring provider. If you have questions, please contact your health care provider. INDICATION: Right flank pain TECHNIQUE: CT abdomen and pelvis without contrast. COMPARISON: CT abdomen pelvis 05/30/2024. FINDINGS: Lower chest: Bibasilar atelectasis. Aortic annular calcification. Trivessel coronary artery calcification. Liver: Unremarkable. Gallbladder and bile ducts: No stones or inflammation. No biliary dilatation. Pancreas: Unremarkable. Spleen: Unremarkable. Adrenal glands: Unremarkable. Kidneys: Moderate right hydronephrosis and proximal hydroureter with a stone in the mid ureter measuring 3 x 3 x 6 millimeters (, ). There is significant right perinephric soft tissue stranding. Nonobstructing nephroliths in the right kidney. Area of hyperdensity in the left renal cortex, which is too small to further characterize. Nonobstructing nephrolith in the left kidney. GI tract: Small hiatal hernia. No obstruction. Post right hemicolectomy with ileocolic anastomosis. Duodenal diverticulum. Colonic diverticulosis without diverticulitis. Vasculature: Abdominal aorta is normal in caliber. Moderate aortoiliac atherosclerosis. Lymph nodes: No lymphadenopathy. Peritoneum/Abdominal Wall: Unremarkable. No sign of mass or infiltration. No free air or significant free fluid. Pelvis: Unremarkable. No pelvic masses. Bones: Mild osteoarthritis of the hips. Moderate degenerative disease of the spine. IMPRESSION: There is a 3 x 3 x 6 millimeter stone in the mid right ureter with resulting moderate right hydronephrosis and proximal hydroureter. There is surrounding perinephric stranding, likely related to congestion, though ascending infection cannot be excluded. Please note that all CT scans at this facility use dose modulation, iterative reconstruction, and/or weight-based dosing when appropriate to reduce radiation dose to as low as reasonably achievable. Dictated by Lucretia Cook MD @ 04/27/2025 8:32:56 AM (Electronically Signed)
[2025-04-27 08:03] LABS: Appearance Urine Cloudy (Clear); Bilirubin Urine Negative (Negative); Blood Urine 1+ (Negative); Color Urine Yellow (Yellow); Glucose Urine Negative (Negative); Ketones Urine Negative (Negative); Leukocyte Esterase Urine 1+ (Negative); Nitrite Urine Positive (Negative); Protein Urine Negative (Negative); Urobilinogen Urine 0.2 (0.2-1.0)
[2025-04-27] MEDS: ONDANSETRON 2 MG/ML inj 4 MG IVP (08:15)
[2025-04-27] MEDS: MORPHINE 4 MG/ML INJ IVP (08:15)
[2025-04-27] MEDS: 0.9 % SODIUM CHLORIDE 1000 ml 1,000 ML IV (08:16)
--- NOTE | 2025-04-27 08:21 | ED.GENADULT ---
HPI - General Adult General Date Seen: 04/27/25 Chief complaint: Flank Pain Stated complaint: thinks she has a kidney stone Time Seen by Provider: 04/27/25 07:55 History of Present Illness HPI narrative: Patient is a 79-year-old woman here with her for evaluation of right flank and right lower quadrant pain which started overnight associated with nausea and dry heaves. She does have a history of kidney stones and this feels similar. She has not had any fevers or chills, no dysuria, frequency, hematuria. No vomiting, diarrhea, black or bloody stools. She has a history of colon cancer and breast cancer, status post partial colectomy including appendectomy, does still have her gallbladder. She does not smoke or drink, does have a remote history of tobacco use but does not have a history of COPD or asthma, no respiratory complaints such as cough or shortness of breath, no chest pain. Related Data Home Medications ?Medication ?Instructions ?Recorded ?Confirmed acetaminophen 500 mg tablet 500 mg PO PRN 06/25/22 12/13/24 multivitamin 1 tab PO QAM 06/25/22 12/13/24 psyllium husk [Daily Fiber] 1 tbsp PO DAILY 01/27/23 04/27/25 Previous Rx's ?Medication ?Instructions ?Recorded hydrochlorothiazide 25 mg tablet 25 mg PO DAILY #90 tabs 08/16/24 losartan 100 mg tablet 100 mg PO QDAY #90 tabs 08/16/24 amlodipine 5 mg tablet 5 mg PO QDAY #90 tabs 11/27/24 Allergies Allergy/AdvReac Type Severity Reaction Status Date / Time amoxicillin Allergy Intermediate Hives Verified 11/27/24 10:53 Review of Systems Status of ROS: Reports: 6 or more systems reviewed and unremarkable except as noted in History and below [facility] Medical History History of malignant carcinoid tumor of small intestine ?Z85.060 - Personal history of malignant carcinoid tumor of small intestine (ICD-10) History of renal calculi ?Z87.442 - Personal history of urinary calculi (ICD-10) Surgical History History of bilateral knee replacement ?Z96.653 - Presence of artificial knee joint, bilateral (ICD-10) History of tonsillectomy ?Z90.89 - Acquired absence of other organs (ICD-10) History of bowel resection (2013) ?Z90.49 - Acquired absence of other specified parts of digestive tract (ICD-10) History of bilateral cataract extraction ?Z98.41 - Cataract extraction status, right eye (ICD-10) ?Z98.42 - Cataract extraction status, left eye (ICD-10) History of benign breast biopsy ?Z98.890 - Other specified postprocedural states (ICD-10) Family History Mother Colon cancer Father Colon cancer Brother Colon cancer Social History What is your current living situation?: I presently have a place to live Problems where you live: no known problems In the past 12 months, utilities in danger of being shut off: no In past 12 months, lack of transportation kept you from medical appts, meetings, work, or getting things needed for daily living: no In the past 12 mos, have been you worried that your food would run out before you had money to buy more?: never true In the past 12 mos, the food you bought just didn't last and you didn't have money to buy more?: never true Smoking Status: Former smoker How often do you have a drink containing alcohol: never How often do you have six or more drinks on one occasion: Never AUDIT-C Alcohol total score: 0 Non-prescribed substance use: denies use How often does anyone, including family, friends and others, physically hurt you: never How often does anyone, including family, friends and others, insult or talk down to you: never How often does anyone, including family, friends and others, threaten you with harm: never How often does anyone, including family, friends and others, scream or curse at you: never Exam Narrative: Exam Narrative: Vital signs reviewed In general, alert, nontoxic elderly woman, looks a little uncomfortable. Head: Normocephalic, atraumatic. Eyes: Sclera clear. Pupils equal and reactive. ENT: Mucous membranes moist. Neck: Supple without adenopathy. Heart: Regular rate and rhythm without murmur. Lungs: Clear. No increased work of breathing, crackles or wheezes. Abdomen: Soft, nondistended, some mild right-sided tenderness without rebound guarding or rigidity. No CVA tenderness. Extremities: Well perfused, pulses intact. No significant edema. Neurologic: Alert, conversant. Speech fluent, face symmetric. Moves all extremities equally. Skin: Warm, dry well perfused. Affect: Normal. Const: Vital Signs, click to edit/add: Vital Signs - 24 hr 04/27/25 07:42 04/27/25 08:22 04/27/25 08:24 Temperature 97.3 F L Pulse Rate Pulse Rate [Pulse Oximeter] 87 Respiratory Rate 20 Blood Pressure Blood Pressure [Ri ght Upper Arm] 149/72 H Pulse Oximetry 94 91 86 L Oxygen Delivery Me thod Room Air Room Air Oxygen Flow Rate 04/27/25 08:25 04/27/25 09:00 04/27/25 09:10 Temperature Pulse Rate Pulse Rate [Pulse Oximeter] 90 Respiratory Rate 16 Blood Pressure Blood Pressure [Ri ght Upper Arm] 129/58 L Pulse Oximetry 96 96 93 Oxygen Delivery Me thod Nasal Cannula Nasal Cannula Room Air Oxygen Flow Rate 2 1 04/27/25 10:09 04/27/25 10:30 04/27/25 10:45 Temperature Pulse Rate 89 83 92 Pulse Rate [Pulse Oximeter] Respiratory Rate Blood Pressure 126/57 L Blood Pressure [Ri ght Upper Arm] Pulse Oximetry 90 88 94 Oxygen Delivery Me thod Room Air Nasal Cannula Oxygen Flow Rate 2 04/27/25 10:53 Temperature 99.3 F Pulse Rate 89 Pulse Rate [Pulse Oximeter] Respiratory Rate 12 Blood Pressure 126/59 L Blood Pressure [Ri ght Upper Arm] Pulse Oximetry 96 Oxygen Delivery Me thod Nasal Cannula Oxygen Flow Rate 2 Course Course ED Course: An IV was established, I ordered 4 mg of morphine, 4 mg of Zofran and a L of normal saline as well as a CT scan without contrast to evaluate for possible kidney stone as well as gallstones, bowel obstruction, pyelonephritis, ischemic colitis, among others. Will check labs to include CBC, metabolic panel, CRP, UA. By my review, CT scan shows a 4 mm stone in the proximal mid ureter with associated hydronephrosis. Urinalysis shows positive nitrites and 1+ leukocyte esterase, 1+ blood, micro is pending. Other labs are pending at this time. Labs are notable for a normal white blood cell count but with a left shift with 91% neutrophils. Creatinine is normal, electrolytes notable for potassium of 3.3. Blood sugar 168. AST 38, total bilirubin 1.6 other LFTs normal. CRP 0.7. Urine micro shows 5-10 red cells, 10-25 white blood cells, few squames, many bacteria. CT scan read by Radiology as showing a 3 x 3 x 6 mm stone in the mid ureter, associated hydronephrosis and significant stranding around the kidney. They note that this may be due to congestion in the kidney but ascending infection cannot be ruled out. Given patient's age, left shift, and presence of pyuria, I did discuss her care with the hospitalist at [facility] as well as the urologist. They agree with transfer for more urgent urologic management.. She had Rocephin 1 g IV here. Pain was well managed with the above medications. She will be transferred upon bed availability up to 8 hour delay. She has remained nontoxic and hemodynamically stable. Vital Signs Vital signs: Initial Vital Signs Temperature 97.3 F L 04/27/25 07:42 Temperature Source Temporal Artery Scan 04/27/25 07:42 Pulse Rate 87 04/27/25 07:42 Respiratory Rate 20 04/27/25 07:42 Blood Pressure 149/72 H 04/27/25 07:42 Blood Pressure Mean 97 04/27/25 07:42 Blood Pressure Position Sitting 04/27/25 07:42 Pulse Oximetry 94 04/27/25 07:42 Oxygen Delivery Method Room Air 04/27/25 07:42 Vital Signs Temperature 97.3 F L 04/27/25 07:42 Pulse Rate 87 04/27/25 07:42 Respiratory Rate 20 04/27/25 07:42 Blood Pressure 149/72 H 04/27/25 07:42 Pulse Oximetry 94 04/27/25 07:42 Oxygen Delivery Method Room Air 04/27/25 07:42 Temperature 99.3 F 04/27/25 10:53 Pulse Rate 89 04/27/25 10:53 Respiratory Rate 12 04/27/25 10:53 Blood Pressure 126/59 L 04/27/25 10:53 Pulse Oximetry 96 04/27/25 10:53 Oxygen Delivery Method Nasal Cannula 04/27/25 10:53 Oxygen Flow Rate 2 04/27/25 10:53 Medications Administered Medications: Discontinued Medications Generic Name Dose Route Start Last Admin Trade Name Woodq PRN Reason Stop Dose Admin Sodium Chloride 1,000 mls @ 1,000 mls/hr 04/27/25 08:00 04/27/25 09:09 0.9 % Sodium Chloride 1000 Ml IV 04/27/25 08:59 Infused .Q1H CARITO Infusion Ceftriaxone Sodium 1 gm/ 100 mls @ 200 mls/hr 04/27/25 09:20 04/27/25 10:08 Sodium Chloride IVPB 04/27/25 09:21 Infused ONCE ONE Infusion Morphine Sulfate 4 mg 04/27/25 07:59 04/27/25 08:15 Morphine 4 Mg/Ml Inj IVP 04/27/25 08:00 4 mg ONCE ONE Administration Ondansetron HCl 4 mg 04/27/25 07:59 04/27/25 08:15 Ondansetron 2 Mg/Ml Inj IVP 04/27/25 08:00 4 mg ONCE ONE Administration Medical Decision Making Lab Data Lab results reviewed: Yes I reviewed the patient's lab results Labs: Lab Results 04/27/25 04/27/25 Range/Units 07:55 08:00 WBC 5.86 (4.50-11.00) K/uL RBC 3.97 L (4.00-5.20) m/uL Hgb 12.6 (12.0-16.0) gm/dL Hct 37.6 (33.0-51.0) % MCV 95 (80-100) fL MCH 32 (26-34) pg MCHC 34 (32-36) gm/dL RDW Coeff of Colin 12.6 (11.5-15.5) % Plt Count 185 (140-440) K/uL Neut % (Auto) 91.5 H (42.0-72.0) % Lymph % (Auto) 6.3 L (20-44) % [place] % (Auto) 0.3 (0.0-11.0) % Eos % (Auto) 0.2 (0.0-7.0) % Baso % (Auto) 0.2 (0.0-3.0) % Neut # (Auto) 5.40 (1.7-7.0) K/uL Lymph # (Auto) 0.40 L (0.90-2.90) K/uL [place] # (Auto) 0.00 (0.00-0.90) K/UL Eos # (Auto) 0.01 (0.00-0.50) K/uL Baso # (Auto) 0.01 (0.00-0.30) K/uL Abs Immat Gran (auto) 0.09 (0.00-0.30) K/uL Imm/Tot Granulo (auto) 1.5 % Sodium 138 (135-149) mmol/L Potassium 3.3 L (3.6-5.1) mmol/L Chloride 102 (96-114) mmol/L Carbon Dioxide 26 (20-32) mmol/L Anion Gap 10 (7-15) mEq/L BUN 25 (7-30) mg/dL Creatinine 1.0 (0.5-1.5) mg/dL Estimated Creat Clear 42.70 Estimated GFR 57 ml/min Glucose 168 H (60-115) mg/dL Calcium 9.8 (8.4-10.6) mg/dL Total Bilirubin 1.6 H (0.1-1.5) mg/dL Direct Bilirubin 0.1 (0.0-0.5) mg/dL AST 38 H (12-35) U/L ALT 31 (4-35) U/L Alkaline Phosphatase 106 (40-150) U/L C-Reactive Protein 0.7 (0.5-1.0) mg/dL Total Protein 7.0 (6.0-8.3) g/dL Albumin 4.3 (3.3-5.0) g/dL Urine Color Yellow (Yellow) Urine Appearance Cloudy A (Clear) Urine pH 7.0 (5.0-8.5) Ur Specific [place] 1.020 (1.000-1.030) Urine Protein Negative (Negative) Urine Glucose (UA) Negative (Negative) Urine Ketones Negative (Negative) Urine Blood 1+ A (Negative) Urine Nitrite Positive A (Negative) Urine Bilirubin Negative (Negative) Urine Urobilinogen 0.2 (0.2-1.0) Ur Leukocyte Esterase 1+ A (Negative) Urine RBC 5-10 A (0-2) Urine WBC 10-25 A (0-5) Ur Squamous Epith Cells Few (None-Few) Urine Bacteria Many A (None) Imaging Data CT scan - abdomen: Attestation: I have reviewed the pertinent imaging results. Radiologist's impression: Patient: Shahnaz hPelps MR#: [id number] : 1945 Acct:[id number] Loc: ED Service Date: 04/27/[address]: Ordering Physician: July Avalos M.D. Date of Service: 04/27/25 Procedure(s): CT abdomen pelvis wo con Accession Number(s): [id number] cc: July Avalos M.D.; Heidy Mesa M.D.~ For Patients: As a result of the Century Cures Act, medical imaging exams and procedure reports are released immediately into your electronic medical record. You may view this report before your referring provider. If you have questions, please contact your health care provider. INDICATION: Right flank pain TECHNIQUE: CT abdomen and pelvis without contrast. COMPARISON: CT abdomen pelvis 05/30/2024. FINDINGS: Lower chest: Bibasilar atelectasis. Aortic annular calcification. Trivessel coronary artery calcification. Liver: Unremarkable. Gallbladder and bile ducts: No stones or inflammation. No biliary dilatation. Pancreas: Unremarkable. Spleen: Unremarkable. Adrenal glands: Unremarkable. Kidneys: Moderate right hydronephrosis and proximal hydroureter with a stone in the mid ureter measuring 3 x 3 x 6 millimeters (, ). There is significant right perinephric soft tissue stranding. Nonobstructing nephroliths in the right kidney. Area of hyperdensity in the left renal cortex, which is too small to further characterize. Nonobstructing nephrolith in the left kidney. GI tract: Small hiatal hernia. No obstruction. Post right hemicolectomy with ileocolic anastomosis. Duodenal diverticulum. Colonic diverticulosis without diverticulitis. Vasculature: Abdominal aorta is normal in caliber. Moderate aortoiliac atherosclerosis. Lymph nodes: No lymphadenopathy. Peritoneum/Abdominal Wall: Unremarkable. No sign of mass or infiltration. No free air or significant free fluid. Pelvis: Unremarkable. No pelvic masses. Bones: Mild osteoarthritis of the hips. Moderate degenerative disease of the spine. IMPRESSION: There is a 3 x 3 x 6 millimeter stone in the mid right ureter with resulting moderate right hydronephrosis and proximal hydroureter. There is surrounding perinephric stranding, likely related to congestion, though ascending infection cannot be excluded. Please note that all CT scans at this facility use dose modulation, iterative reconstruction, and/or weight-based dosing when appropriate to reduce radiation dose to as low as reasonably achievable. Dictated by Lucretia Cook MD @ 04/27/2025 8:32:56 AM Discharge Plan Discharge Clinical Impression: Hydronephrosis with renal and ureteral calculus obstruction, Urinary tract infection Patient Disposition: [place] Condition: Stable Prescriptions: No Action multivitamin Tablet 1 tab PO QAM acetaminophen 500 mg tablet 500 mg PO PRN Rx Instructions: NO MORE THAN 4000 MG/DAY hydrochlorothiazide 25 mg tablet 25 mg PO DAILY Qty: 90 3RF losartan 100 mg tablet 100 mg PO QDAY Qty: 90 3RF psyllium husk [Daily Fiber] 1 tbsp PO DAILY amlodipine 5 mg tablet 5 mg PO QDAY Qty: 90 3RF Stand Alone Forms: [email or web address] Info Instructions
[2025-04-27 08:24] LABS: Albumin* 4.3 g/dL (3.3-5.0); Basophils Absolute Auto 0.01 K/uL (0.00-0.30); Basophils Percent Auto 0.2 % (0.0-3.0); Chloride* 102 mmol/L (96-114); Eosinophils Absolute Auto 0.01 K/uL (0.00-0.50); Eosinophils Percent Auto 0.2 % (0.0-7.0); Hematocrit 37.6 % (33.0-51.0); Hemoglobin* 12.6 gm/dL (12.0-16.0); Immature Granulocytes Abs Auto 0.09 K/uL (0.00-0.30); Immature Granulocytes Pct Auto 1.5 %; Lymphocytes Percent Auto 6.3 % (20-44); Mean Corpuscular HGB Conc 34 gm/dL (32-36); Mean Corpuscular Hemoglobin 32 pg (26-34); Mean Corpuscular Volume 95 fL (80-100); Monocytes Percent Auto 0.3 % (0.0-11.0); Neutrophils Percent Auto 91.5 % (42.0-72.0); Platelet Count* 185 K/uL (140-440); Potassium* 3.3 mmol/L (3.6-5.1); RDW Coefficient of Variation % 12.6 % (11.5-15.5); Red Blood Count 3.97 m/uL (4.00-5.20); Sodium* 138 mmol/L (135-149); White Blood Count* 5.86 K/uL (4.50-11.00)
[2025-04-27 08:28] LABS: Alanine Aminotransferase* 31 U/L (4-35); Alkaline Phosphatase* 106 U/L (40-150); Aspartate Amino Transferase* 38 U/L (12-35); Bilirubin Direct* 0.1 mg/dL (0.0-0.5); Bilirubin Total* 1.6 mg/dL (0.1-1.5); Calcium* 9.8 mg/dL (8.4-10.6); Glucose* 168 mg/dL (60-115); Slide Review Reflex No
[2025-04-27 08:30] LABS: C Reactive Protein* 0.7 mg/dL (0.5-1.0)
[2025-04-27 08:34] LABS: Bacteria Urine Many; Squamous Epithelial Cell Urine Few (None-Few)
[2025-04-27 09:08] LABS: Blood Urea Nitrogen* 25 mg/dL (7-30); Estimated Glomerular Filt Rate 57 ml/min
[2025-04-27 09:09] LABS: Anion Gap 10 mEq/L (7-15); Carbon Dioxide* 26 mmol/L (20-32)
[2025-04-27] MEDS: cefTRIAXone 1 GM in 0.9 % SODIUM CHLORIDE Mini-bag 100 ML IVPB (09:27)
== END 2025-04-27 16:13 | disposition short-term general hospital (02) ==
PROVIDERS: Emergency Provider Emergency Medicine; PCP Internal Medicine
DX: N39.0 Urinary tract infection, site not specified (principal); N13.2 Hydronephrosis with renal and ureteral calculous obstruction
CPT/HCPCS: 36415; 74176; 80048; 80076; 81001; 85025; 86140; 87086; 94761; 96365; 96375; 99285; J0696; J2270; J2405; J7030

== ENCOUNTER 2025-04-27 15:55 | Outpatient (CLI) | payer MEDICARE, SELFPAY ==
--- OUTSIDE RECORDS SUMMARY | 2025-04-30 00:32 | XMS_ITS | Encounter Summary ---
Author Organization [facility] Address [address] [place] [address] Care Team Providers Care Metal Work Duct Installer Name Role Phone Liudmila David MD Primary Care Provider Unav elizabethable Edgar Cunningham MD Unavailable [phone] Liudmila David MD Unavailable Unavailprosper Meade Claire E PA-C Unavailable [phone] Liudmila David MD Unavailable Unavailabl erlinda Meade Bruna E PA-C Unavailable [phone] Heidy Mesa MD Primary Care Provider [phone] Encounter Details Date Type Department Care Team (Late st Contact Info) Description 06/27/2017 MyC Medical Advice [facility] [address] [place] [address] [address] [place] [phone] Liudmila David MD NO INFO AVAILABLE 06/02/23 [...] Sex Assigned at Female 10/17/2018 7:14 PM PROGRAM MEDICAL DIRECTOR Legal Sex Female 2:58 AM PROGRAM MEDICAL DIRECTOR Gender Identity Female 10/17/2018 7:14 PM PROGRAM MEDICAL DIRECTOR Sexual Orientation Straight 10/17/2018 7: 14 PM PROGRAM MEDICAL DIRECTOR 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 Not on file documented as of this encounter Plan of Treatment Not on file documented as of this encounter Visit Diagnoses Not on filedocumented in this encounter Care Teams Metal Work Duct Installer Relationship Specialty Start Date End Date Liudmila David MD PCP - General Family Practice 02/12/14 10/06/20 [place] [address] [place] [address] PCP - Assigned PCP 12/31/18 01/09/19 Heidy Mesa MD [facility] [address] [place] [address] PCP - General Internal Medicine 10/07/20 Liudmila David MD NO INFO AVAILABLE 06/02/23 Assigned PCP 10/12/15 02/02/20 Bruna Meade PA-C [facility] [address] [place] [address], [address] [place] [address] Assigned PCP 02/03/20 03/01/20 Liudmila David MD NO INFO AVAILABLE 06/02/23 Assigned PCP 03/02/20 04/19/20 Bruna Meade PA-C [facility] [address] [facility], [address] [place] [address] Assigned PCP 04/20/20 06/11/22 documented as of this encounter
--- OUTSIDE RECORDS SUMMARY | 2025-04-30 00:32 | XMS_ITS | Encounter Summary ---
Author Organization [facility] Address [address] [place] [address] Care Team Providers Care Steel Rigger Name Role Phone Liudmila David MD Primary Care Provider Unav Edgar Schultz MD Unavailable [phone] Liudmila David MD Unavailable Unavailprosper Meade Claire E PA-C Unavailable [phone] Liudmila David MD Unavailable Unavailabl e Deshaun Bruna E PA-C Unavailable [phone] Heidy Mesa MD Primary Care Provider + [phone] Reason for Visit * Reason Comments Medication Refill Encounter Details Date Type Department Care Team (Late st Contact Info) Description 03/03/2014 Refill [facility] [address] [place] [address] [address] [place] [phone] Liudmila David MD NO INFO AVAILABLE 06/02/23 Medication Refill Social History Tobacco Use Types Packs/Day Years Used Date Smoking Tobacco: Former Cigarettes Q uit: 11/07/1995 Smokeless Tobacco: Never Alcohol Use Standard Drinks/Week Comments Yes 0 (1 standard drink = 0.6 oz pur e alcohol) rare Comments No Sex and Gender Information Value Date Recorded Sex Assigned at Female 10/17/2018 7:14 PM SEASONER Legal Sex Female 2:58 AM SEASONER Gender Identity Female 10/17/2018 7:14 PM SEASONER Sexual Orientation Straight 10/17/2018 7: 14 PM SEASONER Occupation Industry Job Start Date Job End [...] Primary documented in this encounter Care Teams Steel Rigger Relationship Specialty Start Date End Date Liudmila David MD PCP - General Family Practice 02/12/14 10/06/20 [place] [id number] [facility] [place] [address] PCP - Assigned PCP 12/31/18 01/09/19 Heidy Mesa MD [facility] - [address] [address] PCP - General Internal Medicine 10/07/20 Liudmila David MD NO INFO AVAILABLE 06/02/23 Assigned PCP 10/12/15 02/02/20 Bruna Meade PA-C [facility] [address] [facility] [place] [address] Assigned PCP 02/03/20 03/01/20 Liudmila David MD NO INFO AVAILABLE 06/02/23 Assigned PCP 03/02/20 04/19/20 Bruna Meade PA-C [facility] [address] [facility] [place], [place] [id number] Assigned PCP 04/20/20 06/11/22 documented as of this encounter
--- OUTSIDE RECORDS SUMMARY | 2025-04-30 00:32 | XMS_ITS | Encounter Summary ---
Author Organization [facility] Address [address] [place] [address] Care Team Providers Care Customer Expert Name Role Phone Liudmila David MD Primary Care Provider Unav ailable Liudmila David MD Unavailable UnavailBruna Giles PA-C Unavailable [phone] Liudmila David MD Unavailable UnavailBruna Giles PA-C Unavailable [phone] Heidy Mesa MD Primary Care Provider Encounter Details Date Type Department Care Team (Late st Contact Info) Description 07/27/2019 MyC Medical Advice [facility] [address] [place] [address] [address] [place] [phone] Liudmila David MD NO INFO AVAILABLE 06/02/23 [...] Sex Assigned at Female 10/17/2018 7:14 PM JUNIOR ASSISTANT MANAGER Legal Sex Female 2:58 AM JUNIOR ASSISTANT MANAGER Gender Identity Female 10/17/2018 7:14 PM JUNIOR ASSISTANT MANAGER Sexual Orientation Straight 10/17/2018 7: 14 PM JUNIOR ASSISTANT MANAGER 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 Not on file documented as of this encounter Plan of Treatment Not on file documented as of this encounter Visit Diagnoses Not on filedocumented in this encounter Care Teams Customer Expert Relationship Specialty Start Date End Date Liudmila David MD PCP - General Family Practice 02/12/14 10/06/20 Heidy Mesa MD [facility] [address] [place] [address] PCP - General Internal Medicine 10/07/20 Liudmila David MD NO INFO AVAILABLE 06/02/23 Assigned PCP 10/12/15 02/02/20 Bruna Meade PA-C [facility] [address] [facility] [place] [address] Assigned PCP 02/03/20 03/01/20 Liudmila David MD NO INFO AVAILABLE 06/02/23 Assigned PCP 03/02/20 04/19/20 Bruna Meade PA-C [facility] [address] [facility] [place] [address] Assigned PCP 04/20/20 06/11/22 documented as of this encounter
--- OUTSIDE RECORDS SUMMARY | 2025-04-30 00:32 | XMS_ITS | Data Portability ---
Author Organization [place] [facility] Address [address] [place] [address] Care Team Providers Care Environmental Scientists Name Role Phone DEUCE BANKS Primary Care [...] d lab - stone blood 2024 025 [facility], [address], [place], [address], 03/26/2025 18:44:56 urinaly sis, dipstic k 2024 025 [email or web address], [address], [place], [address], 03/26/2025 14:13:34 unliste d lab - litholi nk 24HR urine panel 2024 025 [facility], [address], [place], [address], 04/17/2025 22:16:50 urinaly sis, dipstic k 2023 024 [email or web address] [facility], [address], [place], [address], 06/26/2024 14:42:21 urinaly sis, dipstic k 2022 023 [email or web address] [facility], [address], [place], [address], 06/28/2023 14:54:01 urinaly sis, dipstic k 2021 022 [facility], [address], [place], [address], 07/06/2022 16:13:45 Referral None recorde d. Procedures None recorde d. Surgeries None recorde d. Imaging US, kidney - PLEASE CALL PT TO SCHEDUL E NEEDED IN 8 - 10 MONTH ( NOV or JANUARY OF 2026 ) 2024 025 [email or web address] [facility], [address], [place], [address], 04/10/2025 08:42:08 US, renal - Please call pt to schedul e; Needed GERALDO 2023 024 [email or web address] [facility], [address], [address], [place], [address], 12/18/2024 13:09:30 US, renal 2022 023 [email or web address] [facility], [address], [address], [place], [address], 04/18/2024 12:46:10 Medication Orders None recorde d. Patient TargetsNo targets recorded. Patient Instructions Encounter Date Encounter Id Patient Instructions Last Modified By Organization Details Last Modified Time 03/26/2025 [id number] Pt to follow up with Dr. Renetta danielle Not available 03/26/2025 14:36:09 Reason for Referral None Reported. Results Created Date Observation Date Name Description Value Unit Range Abnormal Flag Note LastModifiedBy Organization Detail LastModifiedTime 07/06/20 22 07/06/2022 urina lysis , dipst ick Color-Status Yellow Not Available [facility] [address], [place], [address], 07/06/2022 16:12:49 07/06/20 22 07/06/2022 urina lysis , dipst ick Clarity-Stat us Clear Not Available [facility] [address], [place], [address], 07/06/2022 16:12:49 07/06/20 22 07/06/2022 urina lysis , dipst ick Glucose-Stat us Negati ve Not Available [facility] [address], [place], [address], 07/06/2022 16:12:49 07/06/20 22 07/06/2022 urina lysis , dipst ick Bilirubin-St atus Negati ve Not Available [facility] [address], [place], [address], 07/06/2022 16:12:49 07/06/20 22 07/06/2022 urina lysis , dipst ick Ketones-Stat us Negati ve Not Available [facility] [address], [place], [address], 07/06/2022 16:12:49 07/06/20 22 07/06/2022 urina lysis , dipst ick Sp Freer-Stat us 1.015 Not Available [facility] [address], [place], [address], 07/06/2022 16:12:49 07/06/20 22 07/06/2022 urina lysis , dipst ick pH-Status 7.0 Not Available [facility] [address], [place], [address], 07/06/2022 16:12:49 07/06/20 22 07/06/2022 urina lysis , dipst ick Urobilinogen -Status 0.2 Not Available [facility] [address], [place], [address], 07/06/2022 16:12:49 07/06/20 22 07/06/2022 urina lysis , dipst ick Nitrates-Sta tus negati ve Not Available [facility] [address], [place], [address], 07/06/2022 16:12:49 07/06/20 22 07/06/2022 urina lysis , dipst ick Blood-Status Trace Not Available [facility] [address], [place], [address], 07/06/2022 16:12:49 07/06/20 22 07/06/2022 urina lysis , dipst ick Leuko-Status Trace Not Available [facility] [address], [place], [address], 07/06/2022 16:12:49 07/06/20 22 07/06/2022 urina lysis , dipst ick Specimen Type Voided Not Available [facility] [address], [place], [address], 07/06/2022 16:12:49 07/06/20 22 07/06/2022 urina lysis , dipst ick Performed by Berna Betancourt RN Not Available [facility] [address], [place], [address], 07/06/2022 16:12:49 07/06/20 22 07/06/2022 urina lysis , dipst ick Total Urine Volume 20cc Not Available [facility] [address], [place], [address], 07/06/2022 16:12:49 06/28/20 23 06/28/2023 urina lysis , dipst ick Color-Status Yellow Not Available [facility] [address], [place], [address], 06/28/2023 14:35:35 06/28/20 23 06/28/2023 urina lysis , dipst ick Clarity-Stat us Clear Not Available [facility] [address], [place], [address], 06/28/2023 14:35:35 06/28/20 23 06/28/2023 urina lysis , dipst ick Glucose-Stat us Negati ve Not Available [facility] [address], [place], [address], 06/28/2023 14:35:35 06/28/20 23 06/28/2023 urina lysis , dipst ick Bilirubin-St atus Negati ve Not Available [facility] [address], [place], [address], 06/28/2023 14:35:35 06/28/20 23 06/28/2023 urina lysis , dipst ick Ketones-Stat us Negati ve Not Available [facility] [address], [place], [address], 06/28/2023 14:35:35 06/28/20 23 06/28/2023 urina lysis , dipst ick Sp Freer-Stat us 1.025 Not Available [facility] [address], [place], [address], 06/28/2023 14:35:35 06/28/20 23 06/28/2023 urina lysis , dipst ick pH-Status 7.0 Not Available [facility] [address], [place], [address], 06/28/2023 14:35:35 06/28/20 23 06/28/2023 urina lysis , dipst ick Nitrates-Sta tus negati ve Not Available [facility] [address], [place], [address], 06/28/2023 14:35:35 06/28/20 23 06/28/2023 urina lysis , dipst ick Blood-Status Negati ve Not Available [facility] [address], [place], [address], 06/28/2023 14:35:35 06/28/20 23 06/28/2023 urina lysis , dipst ick Leuko-Status Small Not Available [facility] [address], [place], [address], 06/28/2023 14:35:35 06/28/20 23 06/28/2023 urina lysis , dipst ick Specimen Type Voided Not Available [facility] [address], [place], [address], 06/28/2023 14:35:35 06/26/20 24 06/26/2024 urina lysis , dipst ick BLOOD Negati ve Not Available [facility] [address], [place], [address], 06/26/2024 14:12:15 06/26/20 24 06/26/2024 urina lysis , dipst ick BILIRUBIN Negati ve Not Available [facility] [address], [place], [address], 06/26/2024 14:12:15 06/26/20 24 06/26/2024 urina lysis , dipst ick UROBILINOGEN 0.2 mg/dL (Norm) Not Available [facility] [address], [place], [address], 06/26/2024 14:12:15 06/26/20 24 06/26/2024 urina lysis , dipst ick KETONES Negati ve Not Available [facility] [address], [place], [address], 06/26/2024 14:12:15 06/26/20 24 06/26/2024 urina lysis , dipst ick PROTEIN Negati ve Not Available [facility] [address], [place], [address], 06/26/2024 14:12:15 06/26/20 24 06/26/2024 urina lysis , dipst ick NITRITES Negati ve Not Available [facility] [address], [place], [address], 06/26/2024 14:12:15 06/26/20 24 06/26/2024 urina lysis , dipst ick GLUCOSE Negati ve Not Available [facility] [address], [place], [address], 06/26/2024 14:12:15 06/26/20 24 06/26/2024 urina lysis , dipst ick p.H. 7.0 Not Available [facility] [address], [place], [address], 06/26/2024 14:12:15 06/26/20 24 06/26/2024 urina lysis , dipst ick S.G. (Specific Freer) 1.015 Not Available [facility] [address], [place], [address], 06/26/2024 14:12:15 06/26/20 24 06/26/2024 urina lysis , dipst ick LEUKOCYTES Trace (10 WBC/uL ) Not Available [facility] [address], [place], [address], 06/26/2024 14:12:15 03/26/20 25 03/26/2025 STONE BLOOD Na 139.0 mmol/ L 135.0- 145.0 Gladys pinzon n factmanohar do erlinda 2015. You may notic e a 1-2 mmol/ L incre ase in patie nt Na resul t. Not Available [facility] [address], [place], [address], 03/26/2025 18:44:55 03/26/20 25 03/26/2025 STONE BLOOD potassium 3.9 mmol/ L 3.6-5. 0 Not Available [facility] [address], [place], [address], 03/26/2025 18:44:55 03/26/20 25 03/26/2025 STONE BLOOD chloride 100.0 mmol/ L 101.0- 111.0 low Not Available [facility] [address], [place], [address], 03/26/2025 18:44:55 03/26/20 25 03/26/2025 STONE BLOOD CO2 31.0 mmol/ L 21.0-3 1.0 Not Available [facility] [address], [place], [address], 03/26/2025 18:44:55 03/26/20 25 03/26/2025 STONE BLOOD aniongap 8.00 0.00-1 6.00 Not Available [facility] [address], [place], [address], 03/26/2025 18:44:55 03/26/20 25 03/26/2025 STONE BLOOD glu 100.10 mg/dL 70.00- 105.00 Not Available [facility] [address], [place], [address], 03/26/2025 18:44:55 03/26/20 25 03/26/2025 STONE BLOOD Ca 10.3 mg/dL 8.4-10 .2 high Not Available [facility] [address], [place], [address], 03/26/2025 18:44:55 03/26/20 25 03/26/2025 STONE BLOOD mg 2.0 mg/dL 1.7-2. 8 Not Available [facility] [address], [place], [address], 03/26/2025 18:44:55 03/26/20 25 03/26/2025 STONE BLOOD phosphorus 3.5 mg/dL 2.5-4. 6 Not Available [facility] [address], [place], [address], 03/26/2025 18:44:55 03/26/20 25 03/26/2025 STONE BLOOD uric acid 4.6 mg/dL 2.6-7. 2 Not Available [facility] [address], [place], [address], 03/26/2025 18:44:55 03/26/20 25 03/26/2025 STONE BLOOD BUN 23.0 mg/dL 7.0-18 .0 high Not Available [facility] [address], [place], [address], 03/26/2025 18:44:55 03/26/20 25 03/26/2025 STONE BLOOD BUN/creat 26.4 ratio 7.0-17 .0 high Not Available [facility] [address], [place], [address], 03/26/2025 18:44:55 03/26/20 25 03/26/2025 STONE BLOOD creatinine 0.9 mg/dL 0.6-1. 3 Not Available [facility] [address], [place], [address], 03/26/2025 18:44:55 03/26/20 25 03/26/2025 STONE BLOOD eGFR >60 mL/mi n_per _1.73 90-120 If Afric an Ameri can multi ply by 1.210 This lab resul t is being provi ded to you and your provi lashay at the same time in [facility] with the Centu ry Cures Act. Your provi lashay may not have had time to revie w and make recom menda tions based on the resul t. Pleas e allow up to one week for provi lashay revie w. Not Available [facility] [address], [place], [address], 03/26/2025 18:44:55 03/26/20 25 03/26/2025 PARAT SABRINA CAREY NE INTAC T-SYLWIA HE PTH 22.77 pg/mL 15.00- 65.00 This lab resul t is being provi ded to you and your provi lashay [facility]. Your provi lashay may not have had time to revie w and make recom menda tions based on the resul t. Pleas e allow up to one week for provi lashay revie w. Not Available [facility] [address], [place], [address], 03/27/2025 11:10:14 03/26/20 25 03/26/2025 urina lysis , dipst ick BLOOD Negati ve Not Available [facility] [address], [place], [address], 03/26/2025 14:05:14 03/26/20 25 03/26/2025 urina lysis , dipst ick BILIRUBIN Negati ve Not Available [facility] [address], [place], [address], 03/26/2025 14:05:14 03/26/20 25 03/26/2025 urina lysis , dipst ick UROBILINOGEN 1.0 mg/dL Not Available [facility] [address], [place], [address], 03/26/2025 14:05:14 03/26/20 25 03/26/2025 urina lysis , dipst ick KETONES Negati ve Not Available [facility] [address], [place], [address], 03/26/2025 14:05:14 03/26/20 25 03/26/2025 urina lysis , dipst ick PROTEIN Negati ve Not Available [facility] [address], [place], [address], 03/26/2025 14:05:14 03/26/20 25 03/26/2025 urina lysis , dipst ick NITRITES Negati ve Not Available [facility] [address], [place], [address], 03/26/2025 14:05:14 03/26/20 25 03/26/2025 urina lysis , dipst ick GLUCOSE Negati ve Not Available [facility] [address], [place], [address], 03/26/2025 14:05:14 03/26/20 25 03/26/2025 urina lysis , dipst ick p.H. 7.5 Not Available [facility] [address], [place], [address], 03/26/2025 14:05:14 03/26/20 25 03/26/2025 urina lysis , dipst ick S.G. (Specific Freer) 1.015 Not Available [facility] [address], [place], [address], 03/26/2025 14:05:14 03/26/20 25 03/26/2025 urina lysis , dipst ick LEUKOCYTES Small (25 WBC/uL ) Not Available [facility] [address], [place], [address], 03/26/2025 14:05:14 04/10/20 25 04/17/2025 LITHO LINK 24HR URINE PANEL cystine, urine, qualitative COMMEN T Test not perfo rmed. Previ ous test resul ts on file. Not Available [facility] ([facility]) [address] [place], [address], 04/17/2025 22:16:50 04/10/20 25 04/17/2025 LITHO LINK 24HR URINE PANEL urine volume (preserved) 2110 mL/24 _HR 500-40 00 Not Available [facility] ([facility]) [address] [place], [address], 04/17/2025 22:16:50 04/10/20 25 04/17/2025 LITHO LINK 24HR URINE PANEL calcium oxalate saturation 1.66 6.00-1 0.00 below low normal Not Available [facility] ([facility]) [address] [place], [address], 04/17/2025 22:16:50 04/10/20 25 04/17/2025 LITHO LINK 24HR URINE PANEL calcium, urine 50 mg/24 _HR <200 Not Available [facility] ([facility]) [address] [place], [address], 04/17/2025 22:16:50 04/10/20 25 04/17/2025 LITHO LINK 24HR URINE PANEL oxalate, urine 35 mg/24 _HR 20-40 Not Available [facility] ([facility]) [address] [place], [address], 04/17/2025 22:16:50 04/10/20 25 04/17/2025 LITHO LINK 24HR URINE PANEL citrate, urine 999 mg/24 _HR >550 Not Available [facility] ([facility]) [address] [place], [address], 04/17/2025 22:16:50 04/10/20 25 04/17/2025 LITHO LINK 24HR URINE PANEL calcium phosphate saturation 0.37 0.50-2 .00 below low normal Not Available [facility] ([facility]) [address] [place], [address], 04/17/2025 22:16:50 04/10/20 25 04/17/2025 LITHO LINK 24HR URINE PANEL pH, 24 HR, urine 6.769 5.800- 6.200 above high normal Not Available [facility] ([facility]) [address] [place], [address], 04/17/2025 22:16:50 04/10/20 25 04/17/2025 LITHO LINK 24HR URINE PANEL uric acid saturation 0.10 <1.00 Not Available [facility] ([facility]) [address] [place], [address], 04/17/2025 22:16:50 04/10/20 25 04/17/2025 LITHO LINK 24HR URINE PANEL uric acid, urine 537 mg/24 _HR <750 Not Available [facility] ([facility]) [address] [place], [address], 04/17/2025 22:16:50 04/10/20 25 04/17/2025 LITHO LINK 24HR URINE PANEL sodium, urine 206 mmol/ 24_HR 50-150 above high normal Not Available [facility] ([facility]) [address] [place], [address], 04/17/2025 22:16:50 04/10/20 25 04/17/2025 LITHO LINK 24HR URINE PANEL potassium, urine 56 mmol/ 24_HR 20-100 Not Available [facility] ([facility]) [address] [place], [address], 04/17/2025 22:16:50 04/10/20 25 04/17/2025 LITHO LINK 24HR URINE PANEL magnesium, urine 65 mg/24 _HR 30-120 Not Available [facility] ([facility]) [address] [place], [address], 04/17/2025 22:16:50 04/10/20 25 04/17/2025 LITHO LINK 24HR URINE PANEL phosphorus, urine 636 mg/24 _HR 600-12 00 Not Available [facility] ([facility]) [address] [place], [address], 04/17/2025 22:16:50 04/10/20 25 04/17/2025 LITHO LINK 24HR URINE PANEL ammonium, urine 20 mmol/ 24_HR 15-60 Not Available [facility] ([facility]) [address] [place], [address], 04/17/2025 22:16:50 04/10/20 25 04/17/2025 LITHO LINK 24HR URINE PANEL chloride, urine 192 mmol/ 24_HR 70-250 Not Available [facility] ([facility]) [address] [place], [address], 04/17/2025 22:16:50 04/10/20 25 04/17/2025 LITHO LINK 24HR URINE PANEL sulfate, urine 19 mEq/2 4_HR 20-80 below low normal Not Available [facility] ([facility]) [address] [place], [address], 04/17/2025 22:16:50 04/10/20 25 04/17/2025 LITHO LINK 24HR URINE PANEL urea nitrogen, urine 7.70 g/24_ HR 6.00-1 4.00 Not Available [facility] ([facility]) [address] [place], [address], 04/17/2025 22:16:50 04/10/20 25 04/17/2025 LITHO LINK 24HR URINE PANEL protein catabolic rate 1.1 g/kg/ 24_HR 0.8-1. 4 Not Available [facility] ([facility]) [address] [place], [address], 04/17/2025 22:16:50 04/10/20 25 04/17/2025 LITHO LINK 24HR URINE PANEL creatinine, urine 1106 mg/24 _HR not applic . As of 2017, the [facility] for urine creat inine has do ed. Going forsd rd, urine creat inine value s will decre ase by 17%. Refer ence range s have been updat ed for Cr24/ Kg, Ca24/ Cr24, and Cit24 /Cr24 . Resul ts from the last sampl e prior to the do e in [facility] (adam ected on 11/20 ) have been modif ied to harini t in farooq ring data over time. The origi nal Cr24 value was repor mae as 1525 and is recal culat ed as 1266; Cr24/ Kg was 16.4 and is recal culat ed as 13.6; and Ca24/ Cr24 was 149 and is recal culat ed as 180. Not Available [facility] ([facility]) [address] [facility], [place], [address], 04/17/2025 22:16:50 04/10/20 25 04/17/2025 LITHO LINK 24HR URINE PANEL creatinine/k g body weight 21.2 mg/24 _HR/k g 8.7-20 .3 above high normal Not Available [facility] ([facility]) [address] [facility], [place], [address], 04/17/2025 22:16:50 04/10/20 25 04/17/2025 LITHO LINK 24HR URINE PANEL calcium/kg body weight 1.0 mg/24 _HR/k g <4.0 Not Available [facility] ([facility]) [address] [facility], [place], [address], 04/17/2025 22:16:50 04/10/20 25 04/17/2025 LITHO LINK 24HR URINE PANEL calcium/crea tinine ratio 45 mg/g_ creat 51-262 below low normal Not Available [facility] ([facility]) [address] [facility], [place], [address], 04/17/2025 22:16:50 04/10/20 25 04/17/2025 LITHO LINK 24HR URINE PANEL comment NOTE Not Available [facility] ([facility]) [address] [facility], [place], [address], 04/17/2025 22:16:50 07/07/20 22 07/06/2022 CT, abdom en + pelvi s, w/o contr ast No observ ation record ed. [email or web address] [facility] [address], [place], [address], 07/08/2022 16:11:49 12/20/19 24 12/20/2023 US, renal No observ ation record ed. [email or web address] [facility] ([facility] Fax Number) [phone], [place], [address], 12/21/2023 14:27:49 12/18/19 25 12/18/2024 US, renal EXAM: US RENAL BILATE RAL [facility]ATI ON: [facility] [place] DATE: 025 INDICA TION: Calcul us [...] interp reted by: DR. MONIKA AUGUSTE MD [facility] [address], [place], [address], 12/18/2024 17:57:26 12/18/19 25 12/18/2024 imagi ng/di agnos tic resul t No observ ation record ed. [facility] [address], [place], [address], 12/19/2024 13:23:18 03/27/20 25 03/26/2025 XR, kidne y + urete r + bladd er EXAM: XR, KIDNEY + URETER + BLADDE R [facility]ATI [facility]: [facility] [place] DATE: 025 INDICA TION: Calcul us of [...] Vale Nelson MD on 2024 at 09:45 [facility] [place] [address], [place], [address], 03/27/2025 12:25:00 Result Notes Documentation Provider Name and Address Organization Details Recorded Time Xr, Kidney + Ureter + Bladder : EXAM: XR, KIDNEY + URETER + BLADDER [facility] DATE: 03/26/2025 INDICATION: Calculus of kidney COMPARISON: [...] on 03/27/2025 at 09:45 Jared Jackson MD [address] [place], [place] [address], [address] 03/27/2025 12:25:00 Problems Name Problem SNOMED Code Status Onset Date Resolution Date Notes Provider Name and Address Organization Details Recorded Time Microscop ic hematuria 143690711 Active 2011 599.72 : MICROSCOPI C HEMATURIA Not Available [facility] 0 01:57:44 Kidney stone 84000242 Active 2011 592.0 : CALCULUS-K IDNEY Not Available [facility] 0 01:57:44 Problem Notes None recorded. 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 03/26/2025 14:34:15 4 Urinalysis completed Berna Betancourt [facility] 06/26/2024 14:13:09 Imaging Results None recorded. Procedure Notes None recorded. Medical Equipment None Reported. Allergies Allergen ID Allergen Name Allergen Category Reaction Reaction Severity Criticality Documentation Date Start Date Code Code System Note Provider Name and Address Organization Details Recorded Time 216858 Penicilli n Not available Not available Not available Not available 04/24/20202011 20705 RxNorm Not Available [facility] 0 00:48:41 411253 amoxicill in medicatio n Not available Not available Not available 06/28/2023 723 RxNorm Berna Betancourt [place], [place] - [facility] 3 14:32:52 Medications Name Sig Start [...] Updated DateTime 03/26/2025 168.91 cm 34.2 kg/m2 50301.36 g Nidhi Mon [facility] 03/26/2025 14:03:52 Date Recorded Body height Body mass index (BMI) Body weight Provider Name and Address Organization Details Last Updated DateTime 06/26/2024 168.91 cm 34.2 kg/m2 21243.36 g Gil Levine [facility] 06/26/2024 14:24:30 Date Recorded Body height Body mass index (BMI) Body weight Provider Name and Address Organization Details Last Updated DateTime 06/28/2023 168.91 cm 34.3 kg/m2 [address]17.[address] [facility] 06/28/2023 14:32:27 Date Recorded Body height Body mass index (BMI) Body weight Provider Name and Address Organization Details Last Updated DateTime 07/06/2022 168.91 cm 33.9 kg/m2 91087.[address] [facility] 07/06/2022 16:09:44 Social History Question Answer Notes LastModified by Organizat ion Details LastModified Time Tobacco Smoking Status Former Smoker Zahra ramírez [facility] 10/07/2020 11:51:54 What Is Your Level Of Caffeine Consumption? Occasional [email or web address] Information not available 10/07/2020 How Much Tobacco Do You Chew? None Information not available 10/07/2020 When Did You Quit Smoking? 16+yearssincel [email or web address] [id number] Information not available 10/07/2020 Recreational Drug Use No [email or web address] Information not available 10/07/2020 Marital Status [email or web address] Informati on not available 10/07/2020 What Was The Date Of Your Most Recent Tobacco Screening? 03/26/2025 [email or web address] Information not available 03/26/2025 Have You Ever Been Counseled For Unhealthy Alcohol Use? No Information not available 06/26/2024 How Much Tobacco Do You Smoke? No [email or web address] Information not available 10/07/2020 How Many Days In The Past Year Have You Consumed 4 Or More Drinks? 0 [email or web address] Information no t available 06/26/2024 Sex: Unknown Functional Status Question Answer Note LastModified by Organizat ion Details LastModified Time Do you use any illicit or recreational drugs? No [email or web address] Information not available 06/26/2024 What is your level of alcohol consumption? Occasional [email or web address] Information not available 10/07/2020 Do you or have you ever used smokeless tobacco? Never used smokeless tobacco [email or web address] Information not available 10/07/2020 Do you or have you ever used e-cigarettes or vape? Never used electronic cigarettes [email or web address] Information not available 10/07/2020 Mental Status None recorded. Family History Relationship Description Onset Age of this Age Resolved Age Notes LastModified by Organization Details LastModified Time Father No current problems or disability Not available 06/26 14:24:47 Mother No current problems or disability [email or web address] Not available 06/26 14:24:47 Medical History Condition Response High Blood Pressure Y Kidney Stones Y Lung Disease N Depression N GERD/Acid Reflux N Sexually Transmitted Infection N Diabetes N Bleeding Disorder N Cancer N High Cholesterol N Heart Disease N Gynecological History Statement/Question [...] quadrivalent, PF 1 completed Berna Betancourt null, [facility] 06/26/2024 14:12:01 Influenza, high-dose, quadrivalent, PF 2 completed Not Available [facility] 03/26/2025 13:35:23 COVID-19, mRNA, LNP-S, bivalent, PF, 30 mcg/0.3 mL dose 3 completed Not Available [facility] 03/26/2025 13:35:23 Influenza, high-dose, quadrivalent, PF 3 completed Not Available [facility] 03/26/2025 13:35:23 COVID-19, mRNA, LNP-S, PF, trevon-sucrose, 30 mcg/0.3 mL 4 completed Not Available [facility] 03/26/2025 13:35:23 Pneumococcal conjugate PCV20, polysaccharide [id number] conjugate, adjuvant, PF 4 completed Not Available [facility] 03/26/2025 13:35:23 zoster recombinant 9 completed Berna Betancourt null, [facility] 06/28/2023 14:32:34 zoster recombinant 9 completed Berna Betancourt null, [facility] 06/28/2023 14:32:34 Influenza, high-dose, quadrivalent, PF 0 completed Berna Betancourt null, [facility] 06/28/2023 14:32:34 COVID-19, mRNA, LNP-S, PF, 30 mcg/0.3 mL dose 1 completed Berna Betancourt null, [facility] 06/28/2023 14:32:34 COVID-19, mRNA, LNP-S, PF, 30 mcg/0.3 mL dose 1 completed Berna Betancourt null, [facility] 06/28/2023 14:32:35 COVID-19, mRNA, LNP-S, PF, 30 mcg/0.3 mL dose 1 completed Berna Betancourt null, [facility] 06/28/2023 14:32:35 pneumococcal polysaccharide PPV23 2 completed Berna ramírez [facility] 06/28/2023 14:32:35 Tdap 1 completed Berna ramírez [facility] 06/28/2023 14:32:35 Pneumococcal conjugate PCV 13 [facility] 14:32:35 Influenza, high-dose, trivalent, PF 7 [facility] 14:32:35 Influenza, high-dose, trivalent, PF 9 completed Berna ramírez, [facility] 06/28/2023 14:32:35 Td (adult), 2 Lf tetanus toxoid, preservative free, adsorbed 1 [facility] 14:32:35 Td (adult), 2 Lf tetanus toxoid, preservative free, adsorbed 1 completed Berna ramírez [facility] 06/28/2023 14:32:35 Influenza, split virus, quadrivalent, PF 0 completed Berna ramírez [facility] 06/28/2023 14:32:35 Influenza, split virus, quadrivalent, PF 8 [facility] 14:32:35 pneumococcal polysaccharide PPV23 5 [facility] 14:32:35 Past Encounters Encounter ID Performer Location Encounter Start Date Encounter Closed Date Diagnosis/Indication Diagnosis SNOMED-CT Code Diagnosis ICD10 Code Diagnosis Note [id number] MD MISAEL Giraldo_Emily [address] [place] [id number] 10/07/2020 11:05:48 10/07/2020 12:23:23 Kidney stone 94724189 N20.0 CT next to confirm only small stonesf/u in one year; will continue HCTZ 25 mg Q day [id number] MD Arlette Giraldo [address] [place] [id number] 09/22/2021 14:50:46 09/24/2021 13:46:24 Kidney stone [id number] N20.0 continue HCTZ 25 mgUrolith as stone prevention renal US and fu with me after [id number] MD Arlette Giraldo. [address] [place] [place] [id number] 07/06/2022 15:34:20 07/16/2022 10:54:17 Kidney stone 97862312 N20.0 continue prevention and fu in one yearcontin ue HCTZ 25 mg Q day [id number] MD Arlette Giraldo [address] [place] [id number] 06/28/2023 14:15:49 06/30/2023 16:26:29 Kidney stone [id number] N20.0 To prevent stones from forming or [...] relatively small (<5mm), f/u in 1 year. [id number] MD Arlette Giraldo. 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 [place] [id number] 03/26/2025 13:33:37 03/27/2025 11:35:57 Kidney stone [id number] N20.0 renal us in 8-10 monthsston e met work up and fu after with me [id number] MD Arlette Giraldo. [place] [id number] 03/26/2025 14:27:13 03/28/2025 04:00:20 Kidney stone [id number] N20.0 renal us in 8-10 monthsston e [...] (MEDICARE REPLACEMENT/ ADVANTAGE - HMO) Shahnaz Phelps [id number] Shahnaz Phelps 03/29/2025 1 [place] - MEDICARE COST [id number] Shahnaz Phelps [id number] Shahnaz Phelps Notes Date Note Type Note [...] in 2019 ). Jared Jackson MD [address], [place], [address], [facility] 07/06/2022 16:25:32 06/28/2023 text/html 77 yo [...] access to imaging report. Jared Jackson MD [address] [place] [address],[address], [address], [facility] 06/28/2023 15:29:14 06/26/2024 text/html 78 [...] 10/2020. s/p chemo/XER UA=normal Jared Jackson MD [address] [place] [address],[address], [place], [address], [place] [facility] 06/26/2024 14:49:32 03/26/2025 text/html 79 YO [...] UA-pull up imaging Jared Jackson MD [address], [place], [address], [place] [facility] 03/26/2025 14:19:34 OBGyn Episode No OBEpisode recorded.
--- OUTSIDE RECORDS SUMMARY | 2025-04-30 00:32 | XMS_ITS | Clinical Summary ---
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 Health Longterm 2012 04/23/2024 Overview (08/14/2013): State Tier Level: Tier 2 Status: n/a Surgical Sales Representative: See Letters for [facility] Care Plan [email or web address] 06/06/2006 12/11/2007 Absence of [...] Sex Assigned at Female 10/17/2018 7:14 PM RANGE SCIENTIST Legal Sex Female 2:58 AM RANGE SCIENTIST Gender Identity Female 10/17/2018 7:14 PM RANGE SCIENTIST Sexual Orientation Straight 10/17/2018 7: 14 PM RANGE SCIENTIST Occupation Industry Job Start Date Job End [...] on file Medical Devices Implanted Type Area Online Marketing Coordinator Device Identifier Shelf Expiration Date Model / Serial / Lot Stent Ureteral Contour Soft Percuflex [id number] Implanted:Qty : 1 on 03/28/2019 by Jared Jackson MD at [facility] Stent Right: Ureter [employer] 11/26/2021 [id number] / / [id number] Stent Ureteral Dbl Pigtail Inlay [id number] Implanted:Qty : 1 on 06/08/2012 by Jared Jackson MD at [facility] Right: Ureter 03/08/2017 [id number] / / [id number] Hernia 3.1x4.7 Oval Sm [id number] Implanted:Qty : 1 on 05/02/2015 by Cheikh Barcenas MD at [facility] N/A: Abdomen CR [employer] 01/04/2017 [id number] / / [id number] Explanted Type Area Online Marketing Coordinator Device Identifier Shelf Expiration Date Model / Serial / Lot Stent Ureteral Contour Soft Percuflex [id number] Explanted:Qty: 1 on 03/28/2019 by Jared Jackson MD at [facility] Stent Right: Ureter [employer] 11/19/2021 [id number] / / [id number] Insurance [employer] MEDICARE ADVANTAGE [facility] MEDICARE ADVANTAGE Advance Directives For more information, please contact: [phone] Documents on File Type Date Recorded Patient Lasting Machine Operator Bed Expl anation Advance Directives and Livin g Will 02/07/2019 9:34 AM Power of Die Maintenance 02/07/2019 9:34 AM * Full Code (Latest Code Status on File) Date Activated Date Inactivated Comments 08/03/2014 9:14 AM 10/25/2018 6:31 AM * Full Code Date Activated Date Inactivated Comments 07/31/2014 3:56 PM 08/03/2014 9:14 AM Care Teams Car Pusher Relationship Specialty Start Date End Date Heidy Mesa MD [address] [address] PCP - General Internal Medicine 10/07/20
--- OUTSIDE RECORDS SUMMARY | 2025-04-30 00:32 | XMS_ITS | Data Portability ---
Author Organization [facility] [place] Address [address] [place] [address] Assessment No assessment recorded. 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 Patient has had prior vein treatment bilaterally including stripping, ablation, sclerotherapy. Edd Easley PA-C [address] [place], [address], [facility] 12/20/2023 14:59:35 OBGyn Episode No OBEpisode recorded.
--- OUTSIDE RECORDS SUMMARY | 2025-04-30 00:32 | XMS_ITS | Encounter Summary ---
Author Organization [facility] Address [address] [place] [address] Care Team Providers Care Dog Or Animal Sitter Name Role Phone Liudmila David MD Primary Care Provider Unav ailable Liudmila David MD Unavailable UnavailBruna Giles PA-C Unavailable [phone] Liudmila David MD Unavailable UnavailBruna Giles PA-C Unavailable [phone] Heidy Mesa MD Primary Care Provider [phone] Encounter Details Date Type Department Care Team (Late st Contact Info) Description 03/20/2019 MyC Medical Advice [facility] [address] [place] [address] [address] [place] [id number] Liudmila David MD NO INFO AVAILABLE 06/02/23 [...] Sex Assigned at Female 10/17/2018 7:14 PM STATOR TESTER Legal Sex Female 2:58 AM STATOR TESTER Gender Identity Female 10/17/2018 7:14 PM STATOR TESTER Sexual Orientation Straight 10/17/2018 7: 14 PM STATOR TESTER Occupation Industry Job Start Date Job End [...] on filedocumented in this encounter Care Teams Dog Or Animal Sitter Relationship Specialty Start Date End Date Liudmila David MD PCP - General Family Practice 02/12/14 10/06/20 Heidy Mesa MD [facility] [address] [place] [address] PCP - General Internal Medicine 10/07/20 Liudmila David MD NO INFO AVAILABLE 06/02/23 Assigned PCP 10/12/15 02/02/20 Bruna Meade PA-C [facility] [address] [place] [address] Assigned PCP 02/03/20 03/01/20 Liudmila David MD NO INFO AVAILABLE 06/02/23 Assigned PCP 03/02/20 04/19/20 Bruna Meade PA-C [facility] [address] [place] [address] Assigned PCP 04/20/20 06/11/22 documented as of this encounter
--- OUTSIDE RECORDS SUMMARY | 2025-04-30 00:32 | XMS_ITS | Data Portability ---
Author Organization [place] [facility] Address [address] [place] [address] Care Team Providers Care Senior Applications Engineer Name Role Phone DEUCE BANKS Primary Care Provider [phone] Assessment Encounter Date Assessment Date Assessment LastModified [...] d lab - stone blood 2024 025 [facility], [address], [address], [place], [address], 03/26/2025 18:44:56 urinaly sis, dipstic k 2024 025 [email or web address] [facility], [address], [place], [address], 03/26/2025 14:13:34 unliste d lab - litholi nk 24HR urine panel 2024 025 [facility], [address], [place], [address], 04/17/2025 22:16:50 urinaly sis, dipstic k 2023 024 [email or web address] [facility], [address], [place], [address], 06/26/2024 14:42:21 urinaly sis, dipstic k 2022 023 [email or web address] [facility], [address], [place], [address], 06/28/2023 14:54:01 urinaly sis, dipstic k 2021 022 [email or web address] [facility], [address], [place], [address], 07/06/2022 16:13:45 Referral None recorde d. Procedures None recorde d. Surgeries None recorde d. Imaging US, kidney - PLEASE CALL PT TO SCHEDUL E NEEDED IN 8 - 10 MONTH ( NOV or JANUARY OF 2026 ) 2024 025 [email or web address] [facility], [address], [place], [address], 04/10/2025 08:42:08 US, renal - Please call pt to schedul e; Needed GERALDO 2023 024 [email or web address] [facility], [address], [address], [place], [address], 12/18/2024 13:09:30 US, renal 2022 023 [email or web address] [facility], [address], [address], [place], [address], 04/18/2024 12:46:10 Medication Orders None recorde d. Patient TargetsNo targets recorded. Patient Instructions Encounter Date Encounter Id Patient Instructions Last Modified By Organization Details Last Modified Time 03/26/2025 [id number] Pt to follow up with Dr. Renetta danielle Not available 03/26/2025 14:36:09 Reason for Referral None Reported. Results Created Date Observation Date Name Description Value Unit Range Abnormal Flag Note LastModifiedBy Organization Detail LastModifiedTime 07/06/20 22 07/06/2022 urina lysis , dipst ick Color-Status Yellow Not Available [facility] [address], [place], [address], 07/06/2022 16:12:49 07/06/20 22 07/06/2022 urina lysis , dipst ick Clarity-Stat us Clear Not Available [facility] [address], [place], [address], 07/06/2022 16:12:49 07/06/20 22 07/06/2022 urina lysis , dipst ick Glucose-Stat us Negati ve Not Available [facility] [address], [place], [address], 07/06/2022 16:12:49 07/06/20 22 07/06/2022 urina lysis , dipst ick Bilirubin-St atus Negati ve Not Available [facility] [address], [place], [address], 07/06/2022 16:12:49 07/06/20 22 07/06/2022 urina lysis , dipst ick Ketones-Stat us Negati ve Not Available [facility] [address], [place], [address], 07/06/2022 16:12:49 07/06/20 22 07/06/2022 urina lysis , dipst ick Sp [place]-Stat us 1.015 Not Available [facility] [address], [place], [address], 07/06/2022 16:12:49 07/06/20 22 07/06/2022 urina lysis , dipst ick pH-Status 7.0 Not Available [facility] [address], [place], [address], 07/06/2022 16:12:49 07/06/20 22 07/06/2022 urina lysis , dipst ick Urobilinogen -Status 0.2 Not Available [facility] [address], [place], [address], 07/06/2022 16:12:49 07/06/20 22 07/06/2022 urina lysis , dipst ick Nitrates-Sta tus negati ve Not Available [facility] [address], [place], [address], 07/06/2022 16:12:49 07/06/20 22 07/06/2022 urina lysis , dipst ick Blood-Status Trace Not Available [facility] [address], [place], [address], 07/06/2022 16:12:49 07/06/20 22 07/06/2022 urina lysis , dipst ick Leuko-Status Trace Not Available [facility] [address], [place], [address], 07/06/2022 16:12:49 07/06/20 22 07/06/2022 urina lysis , dipst ick Specimen Type Voided Not Available [facility] [address], [place], [address], 07/06/2022 16:12:49 07/06/20 22 07/06/2022 urina lysis , dipst ick Performed by Berna Betancourt RN Not Available [facility] [address], [place], [address], 07/06/2022 16:12:49 07/06/20 22 07/06/2022 urina lysis , dipst ick Total Urine Volume 20cc Not Available [facility] [address], [place], [address], 07/06/2022 16:12:49 06/28/20 23 06/28/2023 urina lysis , dipst ick Color-Status Yellow Not Available [facility] [address], [place], [address], 06/28/2023 14:35:35 06/28/20 23 06/28/2023 urina lysis , dipst ick Clarity-Stat us Clear Not Available [facility] [address], [place], [address], 06/28/2023 14:35:35 06/28/20 23 06/28/2023 urina lysis , dipst ick Glucose-Stat us Negati ve Not Available [facility] [address], [place], [address], 06/28/2023 14:35:35 06/28/20 23 06/28/2023 urina lysis , dipst ick Bilirubin-St atus Negati ve Not Available [facility] [address], [place], [address], 06/28/2023 14:35:35 06/28/20 23 06/28/2023 urina lysis , dipst ick Ketones-Stat us Negati ve Not Available [facility] [address], [place], [address], 06/28/2023 14:35:35 06/28/20 23 06/28/2023 urina lysis , dipst ick Sp [place]ife-Stat us 1.025 Not Available [facility] [address], [place], [address], 06/28/2023 14:35:35 06/28/20 23 06/28/2023 urina lysis , dipst ick pH-Status 7.0 Not Available [facility] [address], [place], [address], 06/28/2023 14:35:35 06/28/20 23 06/28/2023 urina lysis , dipst ick Nitrates-Sta tus negati ve Not Available [facility] [address], [place], [address], 06/28/2023 14:35:35 06/28/20 23 06/28/2023 urina lysis , dipst ick Blood-Status Negati ve Not Available [facility] [address], [place], [address], 06/28/2023 14:35:35 06/28/20 23 06/28/2023 urina lysis , dipst ick Leuko-Status Small Not Available [facility] [address], [place], [address], 06/28/2023 14:35:35 06/28/20 23 06/28/2023 urina lysis , dipst ick Specimen Type Voided Not Available [facility] [address], [place], [address], 06/28/2023 14:35:35 06/26/20 24 06/26/2024 urina lysis , dipst ick BLOOD Negati ve Not Available [facility] [address], [place], [address], 06/26/2024 14:12:15 06/26/20 24 06/26/2024 urina lysis , dipst ick BILIRUBIN Negati ve Not Available [facility] [address], [place], [address], 06/26/2024 14:12:15 06/26/20 24 06/26/2024 urina lysis , dipst ick UROBILINOGEN 0.2 mg/dL (Norm) Not Available [facility] [address], [place], [address], 06/26/2024 14:12:15 06/26/20 24 06/26/2024 urina lysis , dipst ick KETONES Negati ve Not Available [facility] [address], [place], [address], 06/26/2024 14:12:15 06/26/20 24 06/26/2024 urina lysis , dipst ick PROTEIN Negati ve Not Available [facility] [address], [place], [address], 06/26/2024 14:12:15 06/26/20 24 06/26/2024 urina lysis , dipst ick NITRITES Negati ve Not Available [facility] [address], [place], [address], 06/26/2024 14:12:15 06/26/20 24 06/26/2024 urina lysis , dipst ick GLUCOSE Negati ve Not Available [facility] [address], [place], [address], 06/26/2024 14:12:15 06/26/20 24 06/26/2024 urina lysis , dipst ick p.H. 7.0 Not Available [facility] [address], [place], [address], 06/26/2024 14:12:15 06/26/20 24 06/26/2024 urina lysis , dipst ick S.G. (Specific [place]ornsife) 1.015 Not Available [facility] [address], [place], [address], 06/26/2024 14:12:15 06/26/20 24 06/26/2024 urina lysis , dipst ick LEUKOCYTES Trace (10 WBC/uL ) Not Available [facility] [address], [place], [address], 06/26/2024 14:12:15 03/26/20 25 03/26/2025 STONE BLOOD Na 139.0 mmol/ L 135.0- 145.0 Gladys pinzon n factmanohar do erlinda 2015. You may notic e a 1-2 mmol/ L incre ase in patie nt Na resul t. Not Available [facility] [address], [place], [address], 03/26/2025 18:44:55 03/26/20 25 03/26/2025 STONE BLOOD potassium 3.9 mmol/ L 3.6-5. 0 Not Available [facility] [address], [place], [address], 03/26/2025 18:44:55 03/26/20 25 03/26/2025 STONE BLOOD chloride 100.0 mmol/ L 101.0- 111.0 low Not Available [facility] [address] [facility] [address], [place], [address], 03/26/2025 18:44:55 03/26/20 25 03/26/2025 STONE BLOOD CO2 31.0 mmol/ L 21.0-3 1.0 Not Available [facility] [address] [facility] [address], [place], [address], 03/26/2025 18:44:55 03/26/20 25 03/26/2025 STONE BLOOD aniongap 8.00 0.00-1 6.00 Not Available [facility] [address] [facility] [address], [place], [address], 03/26/2025 18:44:55 03/26/20 25 03/26/2025 STONE BLOOD glu 100.10 mg/dL 70.00- 105.00 Not Available [facility] [address] [facility] [address], [place], [address], 03/26/2025 18:44:55 03/26/20 25 03/26/2025 STONE BLOOD Ca 10.3 mg/dL 8.4-10 .2 high Not Available [facility] [address] [facility] [address], [place], [address], 03/26/2025 18:44:55 03/26/20 25 03/26/2025 STONE BLOOD mg 2.0 mg/dL 1.7-2. 8 Not Available [facility] [address] [address], [place], [address], 03/26/2025 18:44:55 03/26/20 25 03/26/2025 STONE BLOOD phosphorus 3.5 mg/dL 2.5-4. 6 Not Available [facility] [address] [address], [place], [address], 03/26/2025 18:44:55 03/26/20 25 03/26/2025 STONE BLOOD uric acid 4.6 mg/dL 2.6-7. 2 Not Available [facility] [address] [address], [place], [address], 03/26/2025 18:44:55 03/26/20 25 03/26/2025 STONE BLOOD BUN 23.0 mg/dL 7.0-18 .0 high Not Available [facility] [address] [address], [place], [address], 03/26/2025 18:44:55 03/26/20 25 03/26/2025 STONE BLOOD BUN/creat 26.4 ratio 7.0-17 .0 high Not Available [facility] [address] [address], [place], [address], 03/26/2025 18:44:55 03/26/20 25 03/26/2025 STONE BLOOD creatinine 0.9 mg/dL 0.6-1. 3 Not Available [facility] [address] [address], [place], [address], 03/26/2025 18:44:55 03/26/20 25 03/26/2025 STONE BLOOD eGFR >60 mL/mi n_per _1.73 90-120 If Afric an Ameri can multi ply by 1.210 This lab resul t is being provi ded to you and your provi lashay at the same time in [facility] with the Centu ry Cures Act. Your provi lashay may not have had time to revie w and make recom menda tions based on the resul t. Pleas e allow up to one week for provi lashay revie w. Not Available [facility] [address] [facility] [address], [place], [address], 03/26/2025 18:44:55 03/26/20 25 03/26/2025 PARAT SABRINA CAREY NE INTAC T-SYLWIA HE PTH 22.77 pg/mL 15.00- 65.00 This lab resul t is being provi ded to you and your provi lashay at the [facility] with [facility] ry Cures Act. Your provi lashay may not have had time to revie w and make recom menda tions based on the resul t. Pleas e allow up to one week for provi lashay revie w. Not Available [facility] [address] [facility] [address], [place], [address], 03/27/2025 11:10:14 03/26/20 25 03/26/2025 urina lysis , dipst ick BLOOD Negati ve Not Available [facility] [address], [place], [address], 03/26/2025 14:05:14 03/26/20 25 03/26/2025 urina lysis , dipst ick BILIRUBIN Negati ve Not Available [facility] [address], [place], [address], 03/26/2025 14:05:14 03/26/20 25 03/26/2025 urina lysis , dipst ick UROBILINOGEN 1.0 mg/dL Not Available [facility] [address], [place], [address], 03/26/2025 14:05:14 03/26/20 25 03/26/2025 urina lysis , dipst ick KETONES Negati ve Not Available [facility] [address], [place], [address], 03/26/2025 14:05:14 03/26/20 25 03/26/2025 urina lysis , dipst ick PROTEIN Negati ve Not Available [facility] [address], [place], [address], 03/26/2025 14:05:14 03/26/20 25 03/26/2025 urina lysis , dipst ick NITRITES Negati ve Not Available [facility] [address], [place], [address], 03/26/2025 14:05:14 03/26/20 25 03/26/2025 urina lysis , dipst ick GLUCOSE Negati ve Not Available [facility] [address], [place], [address], 03/26/2025 14:05:14 03/26/20 25 03/26/2025 urina lysis , dipst ick p.H. 7.5 Not Available [facility] [address], [place], [address], 03/26/2025 14:05:14 03/26/20 25 03/26/2025 urina lysis , dipst ick S.G. (Specific [place]) 1.015 Not Available [facility] [address], [place], [address], 03/26/2025 14:05:14 03/26/20 25 03/26/2025 urina lysis , dipst ick LEUKOCYTES Small (25 WBC/uL ) Not Available [facility] [address], [place], [address], 03/26/2025 14:05:14 04/10/20 25 04/17/2025 LITHO LINK 24HR URINE PANEL cystine, urine, qualitative COMMEN T Test not perfo rmed. Previ ous test resul ts on file. Not Available [facility] ([facility]) [address] [place], [address], 04/17/2025 22:16:50 04/10/20 25 04/17/2025 LITHO LINK 24HR URINE PANEL urine volume (preserved) 2110 mL/24 _HR 500-40 00 Not Available [facility] ([facility]) [address] [place], [address], 04/17/2025 22:16:50 04/10/20 25 04/17/2025 LITHO LINK 24HR URINE PANEL calcium oxalate saturation 1.66 6.00-1 0.00 below low normal Not Available [facility] ([facility]) [address] [place], [address], 04/17/2025 22:16:50 04/10/20 25 04/17/2025 LITHO LINK 24HR URINE PANEL calcium, urine 50 mg/24 _HR <200 Not Available [facility] ([facility]) [address] [place], [address], 04/17/2025 22:16:50 04/10/20 25 04/17/2025 LITHO LINK 24HR URINE PANEL oxalate, urine 35 mg/24 _HR 20-40 Not Available [facility] ([facility]) [address] [place], [address], 04/17/2025 22:16:50 04/10/20 25 04/17/2025 LITHO LINK 24HR URINE PANEL citrate, urine 999 mg/24 _HR >550 Not Available [facility] ([facility]) [address] [place], [address], 04/17/2025 22:16:50 04/10/20 25 04/17/2025 LITHO LINK 24HR URINE PANEL calcium phosphate saturation 0.37 0.50-2 .00 below low normal Not Available [facility] ([facility]) [address] [place], [address], 04/17/2025 22:16:50 04/10/20 25 04/17/2025 LITHO LINK 24HR URINE PANEL pH, 24 HR, urine 6.769 5.800- 6.200 above high normal Not Available [facility] ([facility]) [address] [place], [address], 04/17/2025 22:16:50 04/10/20 25 04/17/2025 LITHO LINK 24HR URINE PANEL uric acid saturation 0.10 <1.00 Not Available [facility] ([facility]) [address] [place], [address], 04/17/2025 22:16:50 04/10/20 25 04/17/2025 LITHO LINK 24HR URINE PANEL uric acid, urine 537 mg/24 _HR <750 Not Available [facility] ([facility]) [address] [place], [address], 04/17/2025 22:16:50 04/10/20 25 04/17/2025 LITHO LINK 24HR URINE PANEL sodium, urine 206 mmol/ 24_HR 50-150 above high normal Not Available [facility] ([facility]) [address] [place], [address], 04/17/2025 22:16:50 04/10/20 25 04/17/2025 LITHO LINK 24HR URINE PANEL potassium, urine 56 mmol/ 24_HR 20-100 Not Available [facility] ([facility]) [address] [place], [address], 04/17/2025 22:16:50 04/10/20 25 04/17/2025 LITHO LINK 24HR URINE PANEL magnesium, urine 65 mg/24 _HR 30-120 Not Available [facility] ([facility]) [address] [place], [address], 04/17/2025 22:16:50 04/10/20 25 04/17/2025 LITHO LINK 24HR URINE PANEL phosphorus, urine 636 mg/24 _HR 600-12 00 Not Available [facility] ([facility]) [address] [place], [address], 04/17/2025 22:16:50 04/10/20 25 04/17/2025 LITHO LINK 24HR URINE PANEL ammonium, urine 20 mmol/ 24_HR 15-60 Not Available [facility] ([facility]) [address] [place], [address], 04/17/2025 22:16:50 04/10/20 25 04/17/2025 LITHO LINK 24HR URINE PANEL chloride, urine 192 mmol/ 24_HR 70-250 Not Available [facility] ([facility]) [address] [place], [address], 04/17/2025 22:16:50 04/10/20 25 04/17/2025 LITHO LINK 24HR URINE PANEL sulfate, urine 19 mEq/2 4_HR 20-80 below low normal Not Available [facility] ([facility]) [address] [place], [address], 04/17/2025 22:16:50 04/10/20 25 04/17/2025 LITHO LINK 24HR URINE PANEL urea nitrogen, urine 7.70 g/24_ HR 6.00-1 4.00 Not Available [facility] ([facility]) [address] [place], [address], 04/17/2025 22:16:50 04/10/20 25 04/17/2025 LITHO LINK 24HR URINE PANEL protein catabolic rate 1.1 g/kg/ 24_HR 0.8-1. 4 Not Available [facility] ([facility]) [address] [place], [address], 04/17/2025 22:16:50 04/10/20 25 04/17/2025 LITHO LINK 24HR URINE PANEL creatinine, urine 1106 mg/24 _HR not applic . As of 2017, the [facility] for urine creat inine has do ed. Going fornh rd, urine creat inine value s will decre ase by 17%. Refer ence range s have been updat ed for Cr24/ Kg, Ca24/ Cr24, and Cit24 /Cr24 . Resul ts from the last sampl e prior to the do e in [facility] (adam ected on 11/20 ) have been modif ied to harini t in farooq ring data over time. The origi nal Cr24 value was repor mae as 1525 and is recal culat ed as 1266; Cr24/ Kg was 16.4 and is recal culat ed as 13.6; and Ca24/ Cr24 was 149 and is recal culat ed as 180. Not Available [facility] ([facility]) [address] [facility], [place], [address], 04/17/2025 22:16:50 04/10/20 25 04/17/2025 LITHO LINK 24HR URINE PANEL creatinine/k g body weight 21.2 mg/24 _HR/k g 8.7-20 .3 above high normal Not Available [facility] ([facility]) [address] [facility], [place], [address], 04/17/2025 22:16:50 04/10/20 25 04/17/2025 LITHO LINK 24HR URINE PANEL calcium/kg body weight 1.0 mg/24 _HR/k g <4.0 Not Available [facility] ([facility]) [address] [facility], [place], [address], 04/17/2025 22:16:50 04/10/20 25 04/17/2025 LITHO LINK 24HR URINE PANEL calcium/crea tinine ratio 45 mg/g_ creat 51-262 below low normal Not Available [facility] ([facility]) [address] [facility], [place], [address], 04/17/2025 22:16:50 04/10/20 25 04/17/2025 LITHO LINK 24HR URINE PANEL comment NOTE Not Available [facility] ([facility]) [address] [facility], [place], [address], 04/17/2025 22:16:50 07/07/20 22 07/06/2022 CT, abdom en + pelvi s, w/o contr ast No observ ation record ed. [email or web address] [facility] [address], [place], [address], 07/08/2022 16:11:49 12/20/19 24 12/20/2023 US, renal No observ ation record ed. [email or web address] [facility] (Centralized Fax Number) [phone], [place], [address], 12/21/2023 14:27:49 12/18/19 25 12/18/2024 US, renal [...] interp reted by: DR. MONIKA AUGUSTE MD [facility] [address], [place], [address], 12/18/2024 17:57:26 12/18/19 25 12/18/2024 imagi ng/di agnos tic resul t No observ ation record ed. [facility] [address], [place], [address], 12/19/2024 13:23:18 03/27/20 25 03/26/2025 XR, kidne y + urete r + bladd er EXAM: XR, KIDNEY + URETER + BLADDE R [facility]ATI [facility]: [facility] DATE: 025 INDICA TION: Calcul us of [...] Vale Nelson MD on 2024 at 09:45 [facility] [place] [address], [place], [address], 03/27/2025 12:25:00 Result Notes Documentation Provider Name and Address Organization Details Recorded Time Xr, Kidney + Ureter + Bladder : EXAM: XR, KIDNEY + URETER + BLADDER [facility] DATE: 03/26/2025 INDICATION: Calculus of kidney COMPARISON: [...] on 03/27/2025 at 09:45 Jared Jackson MD [address] [place], [place] [address], [place], [address] 03/27/2025 12:25:00 Problems Name Problem SNOMED Code Status Onset Date Resolution Date Notes Provider Name and Address Organization Details Recorded Time Microscop ic hematuria 296157014 Active 2011 599.72 : MICROSCOPI C HEMATURIA Not Available [facility] 0 01:57:44 Kidney stone 15911204 Active 2011 592.0 : CALCULUS-K IDNEY Not Available [facility] 0 01:57:44 Problem Notes None recorded. Procedures Surgical History Date Name Laterality Status Provider Name and Address Organization Details Recorded Time 5 SAMPLE SELECTOR/blood draw completed Henna John [facility] 03/26/2025 14:34:15 4 Urinalysis completed Berna Betancourt [facility] 06/26/2024 14:13:09 Imaging Results None recorded. Procedure Notes None recorded. Medical Equipment None Reported. Allergies Allergen ID Allergen Name Allergen Category Reaction Reaction Severity Criticality Documentation Date Start Date Code Code System Note Provider Name and Address Organization Details Recorded Time 178886 Penicilli n Not available Not available Not available Not available 04/24/20202011 53258 RxNorm Not Available [facility] 0 00:48:41 784256 amoxicill in medicatio n Not available Not available Not available 06/28/2023 723 RxNorm Berna Betancourt [place], [place] - [facility] 3 14:32:52 Medications Name Sig Start [...] Updated DateTime 03/26/2025 168.91 cm 34.2 kg/m2 21114.36 g Nidhi Mon [facility] 03/26/2025 14:03:52 Date Recorded Body height Body mass index (BMI) Body weight Provider Name and Address Organization Details Last Updated DateTime 06/26/2024 168.91 cm 34.2 kg/m2 14771.36 g Gil Levine [facility] 06/26/2024 14:24:30 Date Recorded Body height Body mass index (BMI) Body weight Provider Name and Address Organization Details Last Updated DateTime 06/28/2023 168.91 cm 34.3 kg/m2 72515.95 g Berna Betancourt [facility] 06/28/2023 14:32:27 Date Recorded Body height Body mass index (BMI) Body weight Provider Name and Address Organization Details Last Updated DateTime 07/06/2022 168.91 cm 33.9 kg/m2 59909.17 g Dagmar Koroma [facility] 07/06/2022 16:09:44 Social History Question Answer Notes LastModified by Organizat ion Details LastModified Time Tobacco Smoking Status Former Smoker Zahra ramírez [facility] 10/07/2020 11:51:54 What Is Your Level Of Caffeine Consumption? Occasional [email or web address] Information not available 10/07/2020 How Much Tobacco Do You Chew? None [email or web address] Information not available 10/07/2020 When Did You Quit Smoking? 16+yearssincel astcigarfelix [email or web address] Information not available 10/07/2020 Recreational Drug Use No [id number] Information not available 10/07/2020 Marital Status [id number] Informati on not available 10/07/2020 What Was The Date Of Your Most Recent Tobacco Screening? 03/26/2025 [id number] Information not available 03/26/2025 Have You Ever Been Counseled For Unhealthy Alcohol Use? No Information not available 06/26/2024 How Much Tobacco Do You Smoke? No [id number] Information not available 10/07/2020 How Many Days In The Past Year Have You Consumed 4 Or More Drinks? 0 [email or web address] Information no t available 06/26/2024 Sex: Unknown Functional Status Question Answer Note LastModified by Organizat ion Details LastModified Time Do you use any illicit or recreational drugs? No Information not available 06/26/2024 What is your level of alcohol consumption? Occasional [id number] Information not available 10/07/2020 Do you or have you ever used smokeless tobacco? Never used smokeless tobacco [id number] Information not available 10/07/2020 Do you or have you ever used e-cigarettes or vape? Never used electronic cigarettes [email or web address] Information not available 10/07/2020 Mental Status None recorded. Family History Relationship Description Onset Age of this Age Resolved Age Notes LastModified by Organization Details LastModified Time Father No current problems or disability [email or web address] Not available 06/26 14:24:47 Mother No current problems or disability [email or web address] Not available 06/26 14:24:47 Medical History Condition [...] quadrivalent, PF 1 completed Berna Betancourt null, [facility] 06/26/2024 14:12:01 Influenza, high-dose, quadrivalent, PF 2 completed Not Available [facility] 03/26/2025 13:35:23 COVID-19, mRNA, LNP-S, bivalent, PF, 30 mcg/0.3 mL dose 3 completed Not Available [facility] 03/26/2025 13:35:23 Influenza, high-dose, quadrivalent, PF 3 completed Not Available [facility] 03/26/2025 13:35:23 COVID-19, mRNA, LNP-S, PF, trevon-sucrose, 30 mcg/0.3 mL 4 completed Not Available [facility] 03/26/2025 13:35:23 Pneumococcal conjugate PCV20, polysaccharide [id number] conjugate, adjuvant, PF 4 completed Not Available [facility] 03/26/2025 13:35:23 zoster recombinant 9 completed Berna Betancourt null, [facility] 06/28/2023 14:32:34 zoster recombinant 9 completed Berna Betancourt null, [facility] 06/28/2023 14:32:34 Influenza, high-dose, quadrivalent, PF 0 completed Berna Betancourt null, [facility] 06/28/2023 14:32:34 COVID-19, mRNA, LNP-S, PF, 30 mcg/0.3 mL dose 1 completed Berna Betancourt null, [facility] 06/28/2023 14:32:34 COVID-19, mRNA, LNP-S, PF, 30 mcg/0.3 mL dose 1 completed Berna Betancourt null, [facility] 06/28/2023 14:32:35 COVID-19, mRNA, LNP-S, PF, 30 mcg/0.3 mL dose 1 completed Berna Betancourt null, [facility] 06/28/2023 14:32:35 pneumococcal polysaccharide PPV23 2 completed Berna ramírez [facility] 06/28/2023 14:32:35 Tdap 1 completed Berna ramírez [facility] 06/28/2023 14:32:35 Pneumococcal conjugate PCV 13 [facility] 14:32:35 Influenza, high-dose, trivalent, PF 7 [facility] 14:32:35 Influenza, high-dose, trivalent, PF 9 completed Berna ramírez, [facility] 06/28/2023 14:32:35 Td (adult), 2 Lf tetanus toxoid, preservative free, adsorbed 1 [facility] 14:32:35 Td (adult), 2 Lf tetanus toxoid, preservative free, adsorbed 1 completed Berna ramírez [facility] 06/28/2023 14:32:35 Influenza, split virus, quadrivalent, PF 0 completed Berna ramírez [facility] 06/28/2023 14:32:35 Influenza, split virus, quadrivalent, PF 8 [facility] 14:32:35 pneumococcal polysaccharide PPV23 5 [facility] 14:32:35 Past Encounters Encounter ID Performer Location Encounter Start Date Encounter Closed Date Diagnosis/Indication Diagnosis SNOMED-CT Code Diagnosis ICD10 Code Diagnosis Note [id number] MD MISAEL Giraldo_Emily [address] [place] [id number] 10/07/2020 11:05:48 10/07/2020 12:23:23 Kidney stone 73203168 N20.0 CT next to confirm only small stonesf/u in one year; will continue HCTZ 25 mg Q day [id number] MD Arlette Giraldo [address] [place] [id number] 09/22/2021 14:50:46 09/24/2021 13:46:24 Kidney stone 69006347 N20.0 continue HCTZ 25 mgUrolith as stone prevention renal US and fu with me after [id number] MD Arlette Giraldo. [address] [place] [id number] 07/06/2022 15:34:20 07/16/2022 10:54:17 Kidney stone 66330149 N20.0 continue prevention and fu in one yearcontin ue HCTZ 25 mg Q day [id number] MD Arlette Giraldo [address] [place] [id number] 06/28/2023 14:15:49 06/30/2023 16:26:29 Kidney stone 41110623 N20.0 To prevent stones from forming or [...] relatively small (<5mm), f/u in 1 year. [id number] MD Arlette Giraldo. 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 [place] [id number] 03/26/2025 13:33:37 03/27/2025 11:35:57 Kidney stone 95964212 N20.0 renal us in 8-10 monthsston e met work up and fu after with me [id number] MD Arlette Giraldo. [address] [place] [id number] 03/26/2025 14:27:13 03/28/2025 04:00:20 Kidney stone [id number] N20.0 renal us in 8-10 monthsston e [...] (MEDICARE REPLACEMENT/ ADVANTAGE - HMO) Shahnaz Phelps [id number] Shahnaz Phelps 03/29/2025 1 [place] MEDIC[place] COST [id number] Shahnaz Phelps [id number] Shahnaz Phelps Notes Date Note Type Note [...] in 2019 ). Jared Jackson MD [address], [place], [address], [facility] 07/06/2022 16:25:32 06/28/2023 text/html 77 yo [...] [facility]; no access to imaging report. Jared Jacksno MD [address] [place] [address],[address], [place], [address], [facility] 06/28/2023 15:29:14 06/26/2024 text/html [...] 10/2020. s/p chemo/XER UA=normal Jared Jackson MD [address] [place] [address],[address], [place], [address], [place] [facility] 06/26/2024 14:49:32 03/26/2025 text/html 79 [...] UA-pull up imaging Jared Jackson MD [address], [place], [address], [place] [facility] 03/26/2025 14:19:34 OBGyn Episode No OBEpisode recorded.
--- OUTSIDE RECORDS SUMMARY | 2025-04-30 00:33 | XMS_ITS | Continuity of Care Document ---
Author Organization [place] [facility] Address [address] [place] [address] Care Team Providers Care Shirring Machine Operator Name Role Phone DEUCE BANKS Primary Care Provider Assessment Encounter Date Assessment Date Assessment LastModified by Organization Details LastModified Time 03/26/2025 03/26/2025 Here for blood draw lolis Not available 03/26/2025 14:35:55 Plan of Treatment Reminders Order Date Submit Date Provider Last Modified By Organization Details Last Modified Time Details Appointments [facility] 10 2024 11:20A M Jared Jackson MD Not available Not available Not available Lab unlisted lab - stone blood 2024 025 [facility], [address], [address], [place], [address], 03/26/2025 18:44:56 Referral None recorded . Procedures None recorded . Surgeries None recorded . Imaging None recorded . Medication Orders None recorded . Patient TargetsNo targets recorded. Patient Instructions Encounter Date Encounter Id Patient Instructions Last Modified By Organization Details Last Modified Time 03/26/2025 [id number] Pt to follow up with Dr. Renetta danielle Not available 03/26/2025 14:36:09 Reason for Referral None Reported. Results Created Date Observation Date Name Description Value Unit Range Abnormal Flag Note LastModifiedBy Organization Detail LastModifiedTime 03/27/2003/26/2025 XR, kidne y + urete r + bladd er EXAM: XR, KIDNEY + URETER + BLADDE R LOCATI ON: [place] [facility] [place] DATE: 025 INDICA TION: Calcul us of [...] Vale Nelson MD on 2024 at 09:45 [facility] [place] [address] [facility] [address], [place], [address], 03/27/2025 12:25:00 Result Notes None recorded. Problems Name Problem SNOMED Code Status Onset Date Resolution Date Notes Provider Name and Address Organization Details Recorded Time Microscop ic hematuria 882750339 Active 2011 599.72 : MICROSCOPI C HEMATURIA Not Available [facility] 0 01:57:44 Kidney stone 04510893 Active 2011 592.0 : CALCULUS-K IDNEY Not Available [facility] 0 01:57:44 Problem Notes None recorded. Procedures Surgical History Date Name Laterality Status Provider Name and Address Organization Details Recorded Time 5 CEMETERY MANAGER/blood draw completed Henna John [facility] 03/26/2025 14:34:15 4 Urinalysis completed Berna Betancourt [facility] 06/26/2024 14:13:09 Imaging Results None recorded. Procedure Notes None recorded. Medical Equipment None Reported. Allergies Allergen ID Allergen Name Allergen Category Reaction Reaction Severity Criticality Documentation Date Start Date Code Code System Note Provider Name and Address Organization Details Recorded Time 080387 Penicilli n Not available Not available Not available Not available 04/24/20202011 83896 RxNorm Not Available [facility] 0 00:48:41 221182 amoxicill in medicatio n Not available Not available Not available 06/28/2023 723 RxNorm Berna Serafin [place], [place] [facility] 3 14:32:52 Medications Name Sig Start [...] Updated DateTime 03/26/2025 168.91 cm 34.2 kg/m2 67952.36 g Nidhi Mon [facility] 03/26/2025 14:03:52 Social History Question Answer Notes LastModified by [employer] Details LastModified Time Tobacco Smoking Status Former Smoker Zahra ramírez [facility] 10/07/2020 11:51:54 What Is Your Level Of Caffeine Consumption? Occasional [email or web address] Information not available 10/07/2020 How Much Tobacco Do You Chew? None [email or web address] Information not available 10/07/2020 When Did You Quit Smoking? 16+yearssincel astcigarette [email or web address] Information not available 10/07/2020 Recreational Drug Use No [email or web address] Information not available 10/07/2020 Marital Status [email or web address] Informati on not available 10/07/2020 What Was The Date Of Your Most Recent Tobacco Screening? 03/26/2025 [email or web address] Information not available 03/26/2025 Have You Ever Been Counseled For Unhealthy Alcohol Use? No [email or web address] Information not available 06/26/2024 How Much Tobacco Do You Smoke? No [email or web address] Information not available 10/07/2020 How Many Days In The Past Year Have You Consumed 4 Or More Drinks? 0 Information no t available 06/26/2024 Sex: Unknown Functional Status Question Answer Note LastModified by Organizat ion Details LastModified Time Do you use any illicit or recreational drugs? No [email or web address] Information not available 06/26/2024 What is your level of alcohol consumption? Occasional [email or web address] Information not available 10/07/2020 Do you or have you ever used smokeless tobacco? Never used smokeless tobacco [email or web address] Information not available 10/07/2020 Do you or have you ever used e-cigarettes or vape? Never used electronic cigarettes [email or web address] Information not available 10/07/2020 Mental Status None recorded. Family History Relationship Description Onset Age of this Age Resolved Age Notes LastModified by Organization Details LastModified Time Father No current problems or disability [email or web address] Not available 06/26 14:24:47 Mother No current problems or disability [email or web address] Not available 06/26 14:24:47 Medical History Condition [...] virus, quadrivalent, PF 1 completed Berna ramírez [facility] 06/26/2024 14:12:01 Influenza, high-dose, quadrivalent, PF 2 completed Not Available [facility] 03/26/2025 13:35:23 COVID-19, mRNA, LNP-S, bivalent, PF, 30 mcg/0.3 mL dose 3 completed Not Available [facility] 03/26/2025 13:35:23 Influenza, high-dose, quadrivalent, PF 3 completed Not Available [facility] 03/26/2025 13:35:23 COVID-19, mRNA, LNP-S, PF, trevon-sucrose, 30 mcg/0.3 mL 4 completed Not Available [facility] 03/26/2025 13:35:23 Pneumococcal conjugate PCV20, polysaccharide [id number] conjugate, adjuvant, PF 4 completed Not Available [facility] 03/26/2025 13:35:23 zoster recombinant 9 completed Berna Betancourt null, [facility] 06/28/2023 14:32:34 zoster recombinant 9 completed Berna Betancourt null, [facility] 06/28/2023 14:32:34 Influenza, high-dose, quadrivalent, PF 0 completed Berna Betancourt null, [facility] 06/28/2023 14:32:34 COVID-19, mRNA, LNP-S, PF, 30 mcg/0.3 mL dose 1 completed Berna Betancourt null, [facility] 06/28/2023 14:32:34 COVID-19, mRNA, LNP-S, PF, 30 mcg/0.3 mL dose 1 completed Berna Betancourt null, [facility] 06/28/2023 14:32:35 COVID-19, mRNA, LNP-S, PF, 30 mcg/0.3 mL dose 1 completed Berna Betancourt null, [facility] 06/28/2023 14:32:35 pneumococcal polysaccharide PPV23 2 completed Berna Betancourt null, [facility] 06/28/2023 14:32:35 Tdap 1 completed Berna Betancourt null, [facility] 06/28/2023 14:32:35 Pneumococcal conjugate PCV 13 5 completed Berna Betancourt null, [facility] 06/28/2023 14:32:35 Influenza, high-dose, trivalent, PF 7 completed Berna Betancourt null, [facility] 06/28/2023 14:32:35 Influenza, high-dose, trivalent, PF 9 completed Berna Betancourt null, [facility] 06/28/2023 14:32:35 Td (adult), 2 Lf tetanus toxoid, preservative free, adsorbed 1 completed Berna Betancourt null, [facility] 06/28/2023 14:32:35 Td (adult), 2 Lf tetanus toxoid, preservative free, adsorbed 1 completed Berna ramírez, [facility] 06/28/2023 14:32:35 Influenza, split virus, quadrivalent, PF 0 completed Berna Serafin ramírez, [facility] 06/28/2023 14:32:35 Influenza, split virus, quadrivalent, PF 8 completed Berna ramírez, [facility] 06/28/2023 14:32:35 pneumococcal polysaccharide PPV23 5 completed Bernamartha Mckeonángel ramírez, [facility] 06/28/2023 14:32:35 Past Encounters Encounter ID Performer Location Encounter Start Date Encounter Closed Date Diagnosis/Indication Diagnosis SNOMED-CT Code Diagnosis ICD10 Code Diagnosis Note [id number] MD MISAEL Giraldo_Emily [address] [place] [address] 03/26/2025 13:33:37 03/27/2025 11:35:57 Kidney stone 41448015 N20.0 renal us in 8-10 monthsston e met work up and fu after with [place] [id number] MD MISAEL Giraldo_Edinheather [address] [place] [id number] 03/26/2025 14:27:13 03/28/2025 04:00:20 Kidney stone 75389857 N20.0 renal us in 8-10 monthsston e met work up and fu after with ne Health Concerns Section Related Observation LastModified by Organization Detai ls LastModified Time None Recorded Concern Status LastModified by Organization Details LastModified Time None Recorded Payers Encounter Date Sequence Insurance Name Policy Number Policy Cutler Covered Member ID Cutler Member ID Guarantor Name 03/26/2025 1 [place] COST [id number] Shahnaz Phelps [id number] Shahnaz Phelps Notes Date Note Type Note [...] [facility] Jared Jackson MD [address], [place], [address], [place] [facility] 03/26/2025 14:19:34 OBGyn Episode No OBEpisode recorded.
--- OUTSIDE RECORDS SUMMARY | 2025-04-30 00:33 | XMS_ITS | Encounter Summary ---
Author Organization [facility] Address [address] [place] [address] Care Team Providers Care Remediation Technician Name Role Phone Liudmila David MD Primary Care Provider Unav Edgar Schultz MD Unavailable [phone] Liudmila David MD Unavailable Unavailprosper Meade Claire E PA-C Unavailable [phone] Liudmila David MD Unavailable Unavailabl erlinda Meade Bruna E PA-C Unavailable [phone] Heidy Mesa MD Primary Care Provider + [phone] Encounter Details Date Type Department Care Team (Late st Contact Info) Description 05/28/2014 Orders Only [address] [id number] Social History Tobacco Use Types Packs/Day Years Used Date Smoking Tobacco: Former Cigarettes Q uit: 11/07/1995 Smokeless Tobacco: Never Alcohol Use Standard Drinks/Week Comments Yes 0 (1 standard drink = 0.6 oz pur e alcohol) rare Comments No Sex and Gender Information Value Date Recorded Sex Assigned at Female 10/17/2018 7:14 PM NEGATIVE NOTCHER Legal Sex Female 2:58 AM NEGATIVE NOTCHER Gender Identity Female 10/17/2018 7:14 PM NEGATIVE NOTCHER Sexual Orientation Straight 10/17/2018 7: 14 PM NEGATIVE NOTCHER 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 Not on file documented as of this encounter Plan of Treatment Not on file documented as of this encounter Visit Diagnoses Not on filedocumented in this encounter Care Teams Remediation Technician Relationship Specialty Start Date End Date Liudmila David MD PCP - General Family Practice 02/12/14 10/06/20 [place] [address] [place] [address] PCP - Assigned PCP 12/31/18 01/09/19 Heidy Mesa MD [facility] [address] [place] [address] PCP - General Internal Medicine 10/07/20 Liudmila David MD NO INFO AVAILABLE 06/02/23 Assigned PCP 10/12/15 02/02/20 Bruna Meade PA-C [facility] [address] [place] [address] Assigned PCP 02/03/20 03/01/20 Liudmila David MD NO INFO AVAILABLE 06/02/23 Assigned PCP 03/02/20 04/19/20 Bruna Meade PA-C [facility] [address] [facility] [place] [address] Assigned PCP 04/20/20 06/11/22 documented as of this encounter
--- OUTSIDE RECORDS SUMMARY | 2025-04-30 00:33 | XMS_ITS | Continuity of Care Document ---
Author Organization [place] [facility] [place] [facility], [facility] Address [address] [place] [address] Care Team Providers Care Gas Refrigerator Servicer Name Role Phone DEUCE BANKS Primary Care Provider [phone] Assessment No assessment recorded. Plan of Treatment Reminders Order Date Submit Date Provider Last Modified By Organization Details Last Modified Time Details Appointments ESTABLI SHED 10 2024 11:20A M Jared Jackson MD Not available Not available Not available Lab urinaly sis, dipstic k 2024 025 radha [facility], [address], [place], [address], 03/26/2025 14:13:34 unliste d lab - [employer] [facility] 24HR urine panel 2024 025 [facility], [address], [place], [address], 04/17/2025 22:16:50 Referral None recorde d. Procedures None recorde d. Surgeries None recorde d. Imaging US, kidney - PLEASE CALL PT TO SCHEDUL E NEEDED IN 8 - 10 MONTH ( NOV or JANUARY OF 2026 ) 2024 025 [facility] [place], [address] [place], [address], 04/10/2025 08:42:08 Medication Orders None recorde d. Patient TargetsNo targets recorded. Patient InstructionsNo instructions recorded. Reason for Referral None Reported. Results Created Date Observation Date Name Description Value Unit Range Abnormal Flag Note LastModifiedBy Organization Detail LastModifiedTime 03/26/20 25 03/26/2025 urina lysis , dipst ick BLOOD Negati ve Not Available [facility] [address], [place], [address], 03/26/2025 14:05:14 03/26/20 25 03/26/2025 urina lysis , dipst ick BILIRUBIN Negati ve Not Available [facility] [address], [place], [address], 03/26/2025 14:05:14 03/26/20 25 03/26/2025 urina lysis , dipst ick UROBILINOGEN 1.0 mg/dL Not Available [facility] [address], [place], [address], 03/26/2025 14:05:14 03/26/20 25 03/26/2025 urina lysis , dipst ick KETONES Negati ve Not Available [facility] [address], [place], [address], 03/26/2025 14:05:14 03/26/20 25 03/26/2025 urina lysis , dipst ick PROTEIN Negati ve Not Available [facility] [address], [place], [address], 03/26/2025 14:05:14 03/26/20 25 03/26/2025 urina lysis , dipst ick NITRITES Negati ve Not Available [facility] [address], [place], [address], 03/26/2025 14:05:14 03/26/20 25 03/26/2025 urina lysis , dipst ick GLUCOSE Negati ve Not Available [facility] [address], [place], [address], 03/26/2025 14:05:14 03/26/20 25 03/26/2025 urina lysis , dipst ick p.H. 7.5 Not Available [facility] [address], [place], [address], 03/26/2025 14:05:14 03/26/20 25 03/26/2025 urina lysis , dipst ick S.G. (Specific [place]) 1.015 Not Available [facility] [address], [place], [address], 03/26/2025 14:05:14 03/26/20 25 03/26/2025 urina lysis , dipst ick LEUKOCYTES Small (25 WBC/uL ) Not Available [facility] [address], [place], [address], 03/26/2025 14:05:14 03/27/20 25 03/26/2025 XR, kidne [...] Vale Nelson MD on 2024 at 09:45 [facility] [address], [place], [address], 03/27/2025 12:25:00 Result Notes None recorded. Problems Name Problem SNOMED Code Status Onset Date Resolution Date Notes Provider Name and Address Organization Details Recorded Time Microscop ic hematuria 974718673 Active 2011 599.72 : MICROSCOPI C HEMATURIA Not Available [facility] 0 01:57:44 Kidney stone 33355631 Active 2011 592.0 : CALCULUS-K IDNEY Not Available [facility] 0 01:57:44 Problem Notes None recorded. Procedures Surgical History Date Name Laterality Status Provider Name and Address Organization Details Recorded Time 5 CHIEF SECURITY OFFICER/blood draw completed [place] [facility] 03/26/2025 14:34:15 4 Urinalysis completed Berna Betancourt [facility] 06/26/2024 14:13:09 Imaging Results None recorded. Procedure Notes None recorded. Medical Equipment None Reported. Allergies Allergen ID Allergen Name Allergen Category Reaction Reaction Severity Criticality Documentation Date Start Date Code Code System Note Provider Name and Address Organization Details Recorded Time 058797 Penicilli n Not available Not available Not available Not available 04/24/20202011 91817 RxNorm Not Available [facility] 0 00:48:41 950096 amoxicill in medicatio n Not available Not available Not available 06/28/2023 723 [facility] 14:32:52 Medications Name [...] Updated DateTime 03/26/2025 168.91 cm 34.2 kg/m2 23589.36 g Nidhi Mon [place] [facility] [place] [facility] 03/26/2025 14:03:52 Social History Question Answer Notes LastModified by Organizat ion Details LastModified Time Tobacco Smoking Status Former Smoker Zahra Darwin darrell [facility] 10/07/2020 11:51:54 What Is Your Level Of Caffeine Consumption? Occasional [email or web address] Information not available 10/07/2020 How Much Tobacco Do You Chew? None [email or web address] Information not available 10/07/2020 When Did You Quit Smoking? 16+yearssincel astcigarette [email or web address] Information not available 10/07/2020 Recreational Drug Use No [email or web address] Information not available 10/07/2020 Marital Status [email or web address] Informati on not available 10/07/2020 What Was The Date Of Your Most Recent Tobacco Screening? 03/26/2025 [email or web address] Information not available 03/26/2025 Have You Ever Been Counseled For Unhealthy Alcohol Use? No [email or web address] Information not available 06/26/2024 How Much Tobacco Do You Smoke? No [email or web address] Information not available 10/07/2020 How Many Days In The Past Year Have You Consumed 4 Or More Drinks? 0 [email or web address] Information no t available 06/26/2024 Sex: Unknown Functional Status Question Answer Note LastModified by Organizat [employer] Details LastModified Time Do you use any illicit or recreational drugs? No [email or web address] Information not available 06/26/2024 What is your level of alcohol consumption? Occasional Information not available 10/07/2020 Do you or have you ever used smokeless tobacco? Never used smokeless tobacco [email or web address] Information not available 10/07/2020 Do you or have you ever used e-cigarettes or vape? Never used electronic cigarettes [email or web address] Information not available 10/07/2020 Mental Status None [...] split virus, quadrivalent, PF [facility] 14:12:01 Influenza, high-dose, quadrivalent, PF 2 completed Not Available [facility] 03/26/2025 13:35:23 COVID-19, mRNA, LNP-S, bivalent, PF, 30 mcg/0.3 mL dose 3 completed Not Available [facility] 03/26/2025 13:35:23 Influenza, high-dose, quadrivalent, PF 3 completed Not Available [facility] 03/26/2025 13:35:23 COVID-19, mRNA, LNP-S, PF, trevon-sucrose, 30 mcg/0.3 mL 4 completed Not Available [facility] 03/26/2025 13:35:23 Pneumococcal conjugate PCV20, polysaccharide [id number] conjugate, adjuvant, PF 4 completed Not Available [facility] 03/26/2025 13:35:23 zoster recombinant 9 completed Berna ramírez [facility] 06/28/2023 14:32:34 zoster recombinant 9 completed Berna ramírez [facility] 06/28/2023 14:32:34 Influenza, high-dose, quadrivalent, PF 0 completed Berna ramírez [facility] 06/28/2023 14:32:34 COVID-19, mRNA, LNP-S, PF, 30 mcg/0.3 mL dose 1 completed Berna ramírez [facility] 06/28/2023 14:32:34 COVID-19, mRNA, LNP-S, PF, 30 mcg/0.3 mL dose 1 completed Berna ramírez [facility] 06/28/2023 14:32:35 COVID-19, mRNA, LNP-S, PF, 30 mcg/0.3 mL dose [facility] 14:32:35 pneumococcal polysaccharide PPV23 2 [facility] 14:32:35 Tdap 1 completed Berna ramírez, [facility] 06/28/2023 14:32:35 Pneumococcal conjugate PCV 13 5 completed Berna ramírez, [facility] 06/28/2023 14:32:35 Influenza, high-dose, trivalent, PF 7 [facility] 14:32:35 Influenza, high-dose, trivalent, PF 9 [facility] 14:32:35 Td (adult), 2 Lf tetanus toxoid, preservative free, adsorbed [facility] 14:32:35 Td (adult), 2 Lf tetanus toxoid, preservative free, adsorbed 1 [facility] 14:32:35 Influenza, split virus, quadrivalent, PF 0 completed Berna ramírez, [facility] 06/28/2023 14:32:35 Influenza, split virus, quadrivalent, PF 8 [facility] 14:32:35 pneumococcal polysaccharide PPV23 5 [facility] 14:32:35 Past Encounters Encounter ID Performer Location Encounter Start Date Encounter Closed Date Diagnosis/Indication Diagnosis SNOMED-CT Code Diagnosis ICD10 Code Diagnosis Note [id number] MD MISAEL Giraldo[facility]Em[facility] [address] [address] 03/26/2025 13:33:37 03/27/2025 11:35:57 Kidney stone 11999993 N20.0 renal us in 8-10 monthsalessandro coffey met work up and fu after with me [id number] Jared Jackson MD [facility] [address] [place] [address] 03/26/2025 14:27:13 03/28/2025 04:00:20 Kidney stone 93985513 N20.0 renal us in 8-10 monthsalessandro coffey met work up and fu after with me Health Concerns Section Related Observation LastModified by Organization Detai ls LastModified Time None Recorded Concern Status LastModified by Organization Details LastModified Time None Recorded Payers Encounter Date Sequence Insurance Name Policy Number Policy Cutler Covered Member ID Cutler Member ID Guarantor Name 03/26/2025 1 [id number] MEDICARE COST [id number] Shahnaz Phelps [id number] Shahnaz Phelps Notes Date Note Type Note [...] chemo/XER [facility] Jared Jackson MD [address], [place], [address], [place] [facility] [place] [facility] 03/26/2025 14:19:34 OBGyn Episode No OBEpisode recorded.
== END 2025-04-27 15:56 | disposition home or self-care (01) ==
LOC: AMB 04-29 11:18
PROVIDERS: PCP Internal Medicine; Visit Provider Emergency Medicine
DX: N13.1 Hydronephrosis with ureteral stricture, not elsewhere classified (principal); N39.0 Urinary tract infection, site not specified
CPT/HCPCS: A0425; A0434

== ENCOUNTER 2025-05-02 14:03 | Outpatient (CLI) | payer MEDICARE, SELFPAY | END 2025-05-02 14:04 | disposition home or self-care (01) | LOC: NFLDREF 14:05 | PROVIDERS: PCP Internal Medicine; Visit Provider Internal Medicine | DX: N20.0 Calculus of kidney (principal) | CPT/HCPCS: 80048 ==